=== PATIENT | male | born 1950 | race Caucasian/White ===

== ENCOUNTER 2016-09-28 09:06 | Inpatient (IN) | payer MEDICAID, BC ==
[~2016-09-28] VITALS: Ht 182.9 cm; Wt 90.0 kg
[2016-09-28] VITALS (20 sets, daily range): BP systolic 121–157; BP diastolic 81–102; PULSE 62–75; RESP 16–18; Ht 182.9 cm; Wt 90.0 kg
[~2016-09-28 09:06] MED LIST: ADV25050 INH; ALBU8.5H3 INH; ASPI-664 PO; ATOR10TA65 PO; AZIT250T6 PO; CLOP75TA27 PO; ETOMIDATE 20 MG INJ ONE; FURO40TA4 PO; LISI-523 PO; METO-448 PO; METO25TA7 PO; PRED10TA PO; PRED50TA PO; SUCCINYLCHOLINE CHLORIDE 100 MG/5 ML SYG IV ONE; TIOT18CA INH
[2016-09-28] MEDS ORDERED: METHYLPREDNISOLONE 125 MG INJ IV STA (09:15)
[2016-09-28] MEDS ORDERED: ALBUTEROL 0.5% (NEB) 2.5 MG/0.5 ML AMP INH STA (09:15)
[2016-09-28 09:37] LABS: HEMATOCRIT 39.2 % (42.0-52.0); HEMOGLOBIN 12.4 g/dl (14.0-18.0); MEAN CORPUSCULAR HEMOGLOBIN 31.9 pg (29.0-33.0); MEAN CORPUSCULAR HGB CONC 31.7 g/dl (32.0-37.0); MEAN CORPUSCULAR VOLUME 100.7 fl (82.0-101.0); MEAN PLATELET VOLUME 6.5 fl (7.4-10.4); PLATELET COUNT 285 10^3/UL (140-440); RED CELL DISTRIBUTION WIDTH 16.7 % (11.5-14.5); UNCORRECTED WBC 21.2 10^3/ul (4.8-10.8); WHITE BLOOD COUNT 21.2 10^3/ul (4.8-10.8)
[2016-09-28] MEDS ORDERED: ASPI81TA3 PO (09:37)
[2016-09-28] MEDS ORDERED: FURO40TA4 PO (09:38)
[2016-09-28] MEDS ORDERED: ATOR10TA65 PO (09:38)
[2016-09-28] MEDS ORDERED: CLOP75TA27 PO (09:38)
[2016-09-28] MEDS ORDERED: METO25TA7 PO (09:39)
[2016-09-28] MEDS ORDERED: ADV25050 INHALATION (09:39)
[2016-09-28] MEDS ORDERED: TIOT18CA INHALATION (09:39)
[2016-09-28] MEDS ORDERED: LISI-313 PO (09:39)
[2016-09-28 09:44] LABS: ALBUMIN 3.6 g/dl (3.3-4.9); INR 1.01; PROTIME 13.3 Sec (12.2-14.2)
[2016-09-28 09:45] LABS: PARTIAL THROMBOPLASTIN TIME 22.4 Sec (25.0-35.0); POTASSIUM 4.7 mmol/L (3.5-5.1)
[2016-09-28 09:47] LABS: ALBUMIN/GLOBULIN RATIO 1.24; BILIRUBIN,INDIRECT 0.3 mg/dl (0-1.1); BILIRUBIN,TOTAL 0.3 mg/dl (0.2-1.3); CREATININE 0.82 mg/dl (0.61-1.24); TOTAL PROTEIN 6.5 g/dl (6.1-8.1)
[2016-09-28 09:48] LABS: CALCIUM 8.5 mg/dl (8.4-10.2)
--- NOTE | 2016-09-28 09:49 | RADRPT ---
PROCEDURE: XR Chest. CLINICAL INDICATION: Dyspnea TECHNIQUE: Single frontal chest x-ray. COMPARISON: 08/21/2016 FINDINGS: The lungs volumes are diminished. There are compressive changes with vascular crowding and basilar atelectasis. Mild increased vascular congestion and volume overload is seen throughout the lungs, s table when compared to the prior study. Dense atelectasis is seen within the lung bases. The cardio mediastinal silhouette is enlarged. The base of the heart is elevated due to low lung volumes. The surrounding soft tissues and osseous structures are unremarkable. Left chest AICD device is seen in place, in good location. IMPRESSION: 1. Low lung volumes with compressive changes and basilar atelectasis. 2. Increased vascular congestion and volume overload, stable. 3. Cardiomegaly left chest AICD device, unchanged in the interim. RPTAT: HMJB .Bhaskar Helms MD, Date Time Electronically viewed and signed by .Bhaskar Helms MD, on 09/28/2016 09:49 .B/
[2016-09-28 10:00] LABS: TROPONIN-I 0.07 ng/ml (0.00-0.12)
[2016-09-28 10:01] LABS: SUSPECT 1
[2016-09-28 10:02] LABS: CONDITION 1; LH ANALYZER COMMENTS 1
[2016-09-28 10:03] LABS: AADO2 Arterial 82.3 mmHg (7.0-24.0); Allen Test ACCEPTAB; Arterial Base Excess 11.5 mmol/L (-3.0-3); Arterial COHb 0.7 % (0.0-3.0); Arterial Fraction of Oxyhgb 84.2 % (93.0-99.0); Arterial HCO3 42.3 mmol/L (22.0-26.0); Arterial MetHb 0.3 % (0.0-1.5); Blood Gas IEPAP 20/5; Blood Gas PS 15; MODE MASK - BIPAP
[2016-09-28] MEDS ORDERED: FUROSEMIDE 40 MG INJ IV ONE (11:00)
[2016-09-28 11:17] LABS: AADO2 Arterial 322.9 mmHg (7.0-24.0); Allen Test ACCEPTAB; Arterial Base Excess 11.6 mmol/L (-3.0-3); Arterial COHb 0.5 % (0.0-3.0); Arterial Fraction of Oxyhgb 90.5 % (93.0-99.0); Arterial HCO3 42.5 mmol/L (22.0-26.0); Arterial MetHb 0.3 % (0.0-1.5); Arterial Total Hemglobin 12.9 g/dl (12.0-18.0); Blood Gas IEPAP 20/5; Blood Gas PS 15; MODE MASK - BIPAP
--- NOTE | 2016-09-28 11:59 | ERA ---
ER Documentation Chief Complaint Date/Time DATE: 09/28/16 TIME: 09:19 Chief Complaint sob x 2 days HPI History is limited due to the patient's clinical condition cognitive impairment and is obtained primarily from transferring paramedics and supplemented by review of previous medical records. 66-year-old male with a history of oxygen dependent, end-stage COPD, congestive heart failure with ejection fraction 25-30%, sick sinus syndrome status post pacemaker placement, coronary artery disease status post PCI, hypertension, dyslipidemia, atrial fibrillation and respiratory failure with previous intubations brought to the ED via ambulance from [facility] for evaluation of increasing shortness of breath and hypoxia. Patient found today with low O2 saturation and lethargy. Improved with supplemental oxygen and sent to the ED for further evaluation. Patient is unable to provide any further history. No documented complaints of chest pain, abdominal pain, nausea vomiting or fevers. ROS All systems reviewed and are negative except as per history of present illness. Medications Home Meds Reported Medications Tiotropium Deering* (Spiriva*) 18 Mcg Cap.w.dev, 1 CAP INHALATION DAILY, #30 CAP 09/28/16 Salmeterol Xinaf/Fluticasone* (Advair*) 250-50 Diskus Inhaler, 1 INH INHALATION BID, #1 INHALER 09/28/16 Metoprolol Succinate* (Toprol XL*) 25 Mg Tab.sr.24h, 25 MG PO DAILY, #30 TAB 09/28/16 Lisinopril* (Lisinopril*) 5 Mg Tablet, 5 MG PO DAILY, #30 TAB 09/28/16 Furosemide* (Furosemide*) 40 Mg Tablet, 40 MG PO DAILY, TAB 09/28/16 Clopidogrel Bisulfate (Clopidogrel) 75 Mg Tablet, 75 MG PO DAILY, #30 TAB 09/28/16 Atorvastatin Calcium (Atorvastatin Calcium) 10 Mg Tablet, 10 MG PO QHS, #30 TAB 09/28/16 Aspirin* (Aspirin* Chew) 81 Mg Tab.chew, 81 MG PO DAILY, TAB.CHEW 09/28/16 Discontinued Reported Medications Atorvastatin Calcium (Atorvastatin Calcium) 10 Mg Tab, 10 MG PO HS, TAB 06/05/15 Aspirin* (Aspirin* (EC)) 81 Mg Tablet.dr, 81 MG PO DAILY, TAB 12/23/14 Discontinued Scripts Azithromycin* (Azithromycin*) 250 Mg Tablet, 250 MG PO DAILY, #4 TAB Prov:ADREINNE MUNOZ MD 08/21/16 Prednisone* (Prednisone*) 50 Mg Tablet, 50 MG PO DAILY for 4 Days, TAB Prov:ADRIENNE MUNOZ MD 08/21/16 Albuterol Sulfate* (Proair HFA*) 8.5 Gm Hfa.aer.ad, 2 PUFF INH Q4H Y for WHEEZING AND SOB, #1 INHALER Prov:ADRIENNE MUNOZ MD 08/21/16 Prednisone* (Prednisone*) 10 Mg Tab, 10 MG PO DAILY, #30 TAB 1. Take 40mg by mouth daily for 3 days 2. then 30mg by mouth daily for 3 days 3. then 20mg by mouth daily for 3 days 3. then 10mg by mouth daily for 3 days Prov:CINDY SMART 07/29/16 Lisinopril* (Zestril*) 5 Mg Tablet, 5 MG PO DAILY, #30 TAB Prov:CINDY SMART 07/29/16 Salmeterol Xinaf/Fluticasone* (Advair*) 250-50 Diskus Inhaler, 1 INH INH BID for 30 Days Prov:CINDY SMART 07/29/16 Metoprolol Tartrate* (Lopressor*) 25 Mg Tab, 25 MG PO BID for 30 Days, TAB Prov:CINDY SMART 07/29/16 Tiotropium Deering* (Spiriva*) 18 Mcg Cap.w.dev, 1 INH INH DAILY for 30 Days Prov:CINDY SMART 07/29/16 Furosemide* (Furosemide*) 40 Mg Tablet, 40 MG PO DAILY for 30 Days, TAB Prov:CINDY SMART 07/29/16 Metoprolol Succinate* (Toprol XL*) 25 Mg Tab.sr.24h, 25 MG PO BID for 30 Days Prov:SOHA ALCOCER NP 06/13/16 Clopidogrel Bisulfate (Clopidogrel) 75 Mg Tab, 75 MG PO DAILY for 30 Days Prov:SOHA ALCOCER BLANKET MAKER 12/30/14 Allergies Allergies: Coded Allergies: No Known Allergy (Unverified , 07/24/16) PMhx/Soc Reviewed in chart. As per HPI. History of Surgery: Yes Anesthesia Reaction: No Hx Neurological Disorder: No Hx Respiratory Disorders: Yes (copd) Hx Cardiac Disorders: Yes (htn) Hx Psychiatric Problems: No Hx Miscellaneous Medical Probl: No Hx Alcohol Use: No Hx Substance Use: No Hx Tobacco Use: No Smoking Status: Former smoker FmHx Unknown. Not relevant to presenting complaint. Physical Exam Vitals Vital Signs Date Time Temp Pulse Resp B/P Pulse Ox O2 Delivery O2 Flow Rate FiO2 09/28/16 12:02 64 16 100 100 09/28/16 11:54 77 18 129/77 98 Mechanical Ventilator 09/28/16 11:50 89 18 143/97 96 BIPAP 09/28/16 11:46 74 20 138/90 96 BIPAP 09/28/16 09:47 76 36 124/71 96 BIPAP 09/28/16 09:37 87 95 35 09/28/16 09:22 Nasal Cannula 2 09/28/16 09:19 97.7 102 40 116/76 69 Physical Exam Const: Ill-appearing. Lethargic but arousable. Head: Atraumatic Eyes: Normal Conjunctiva ENT: Normal External Ears, Nose and Mouth. Neck: JVD. No meningismus. Nontender. Resp: Decreased breath sounds bilaterally with expiratory wheezing and prolonged expiratory phase. Crackles one half of both lung glover. Cardio: Irregular rate and rhythm, no murmurs Abd: Soft, non tender, non distended. Normal bowel sounds. Obese Skin: No petechiae or rashes Back: No midline or flank tenderness Ext: There is a posterior splint and dressing on the right lower extremity she has not removed. 2+ edema bilaterally. Neur: Lethargic but arousable. No facial droop. Physical examination is limited and truncated due to the constraints imposed by the patient's physical condition and cognitive impairment. Result Diagram: 09/28/1690909/28/1610 Results 24 hrs Laboratory Tests Test 09/28/16 09:10 09/28/16 09:50 09/28/16 10:43 09/28/16 11:40 Activated Partial Thromboplast Time 22.4Sec Alanine Aminotransferase (ALT/SGPT) 115IU/L Albumin 3.6g/dl Albumin/Globulin Ratio 1.24 Alkaline Phosphatase 76IU/L Anion Gap 11 Aspartate Amino Transf (AST/SGOT) 65IU/L B-Type Natriuretic Peptide 67788CK/ML Basophils # Pending Basophils % Pending Blood Morphology Comment Blood Urea Nitrogen 39mg/dl Calcium Level 8.5mg/dl Carbon Dioxide Level 48mmol/L Chloride Level 89mmol/L Creatinine 0.82mg/dl Direct Bilirubin 0.00mg/dl Eosinophils # Pending Eosinophils % Pending Globulin 2.90g/dl Glucose Level 134mg/dl Hematocrit 39.2% Hemoglobin 12.4g/dl INR International Normalized Ratio 1.01 Indirect Bilirubin 0.3mg/dl Lactic Acid Level 1.2mmol/L 1.2mmol/L Lymphocytes # Pending Lymphocytes % Pending Mean Corpuscular Hemoglobin 31.9pg Mean Corpuscular Hemoglobin Concent 31.7g/dl Mean Corpuscular Volume 100.7fl Mean Platelet Volume 6.5fl Monocytes # Pending Monocytes % Pending Neutrophils # Pending Neutrophils % Pending Nucleated Red Blood Cells # Pending Nucleated Red Blood Cells % Pending Platelet Count 68379^3/UL Potassium Level 4.7mmol/L Prothrombin Time 13.3Sec Prothrombin Time Ratio 1.0 Red Blood Count 3.9010^6/ul Red Cell Distribution Width 16.7% Sodium Level 143mmol/L Total Bilirubin 0.3mg/dl Total Protein 6.5g/dl Troponin I 0.070ng/ml White Blood Count 21.210^3/ul Arterial Blood HCO3 42.3mmol/L 42.5mmol/L Arterial Blood Base Excess 11.5mmol/L 11.6mmol/L Arterial Blood Oxygen Saturation 85.1mmHG 91.2mmHG Thomas Test ACCEPTAB ACCEPTAB Arterial Blood Gas Puncture Site Left Radial Left Radial Arterial Blood Carboxyhemoglobin 0.7% 0.5% Arterial Blood Date Drawn 09/28/2016 9:53:07 AM 09/28/2016 11:09:51 AM Arterial Blood Methemoglobin 0.3% 0.3% Arterial Blood pCO2 (Temp correct) 94.4mmhg 96.2mmhg Arterial Blood pH (Temp corrected) 7.269 7.263 Arterial Blood pO2 (Temp corrected) 57.5mmHG 72.8mmHG Blood Gas A-a O2 Differential 82.3mmHg 322.9mmHg Blood Gas Actual Respiration Rate 18 18 Blood Gas Critical Value Read Back DR. SUZY ALMONTE Blood Gas IPAP/EPAP Ratio 20/5 20/5 Blood Gas Modality MASK - BIPAP MASK - BIPAP Blood Gas Notified Time 09/28/2016 10:03:02 AM 09/28/2016 11:17:44 AM Blood Gas Notified Whom RosemarySCHEDULING ADMINISTRATOR MStephanieSCHEDULING ADMINISTRATOR Blood Gas Pressure Support 15 15 Blood Gas Respiration Rate 18.0 18.0 Blood Gas Specimen Source Blood arterial Blood arterial Blood Gas Temperature 37.0C 37.0C FiO2 35.0% 70.0% Oxyhemoglobin Percent 84.2% 90.5% Total Hemoglobin 13.0g/dl 12.9g/dl Current Medications Medications (Trade) Dose Ordered Sig/Sim Route PRN Reason Start Time Stop Time Status Last Admin Dose Admin Albuterol (Proventil 0.5% (Neb)) 15 mg ONCE STAT INH 09/28/16 09:15 09/28/16 09:19 DC 09/28/16 09:36 Methylprednisolone Sodium Succinate (Solu-Medrol) 125 mg ONCE STAT IV 09/28/16 09:15 09/28/16 09:19 DC 09/28/16 09:44 Furosemide (Lasix) 40 mg ONCE ONCE IV 09/28/16 11:00 09/28/16 11:01 DC 09/28/16 11:00 Lidocaine (Xylocaine 1% (Mdv) 20 ml) 20 ml ONCE ONCE SC 09/28/16 12:00 09/28/16 12:01 DC RHYTHM STRIP INTERPRETATION: Time: 09: 00. Atrial fibrillation. Ventricular rate 100. Occasional PVCs. Indication: Shortness of breath. EKG: TIME: 09: 09. Atrial fibrillation. Ventricular rate 102. Occasional PVCs. No acute ST segment elevation or depression. EP Interpretation: Abnormal EKG. IMAGING: PROCEDURE: XR Chest. CLINICAL INDICATION: Dyspnea TECHNIQUE: Single frontal chest x-ray. COMPARISON: 08/21/2016 FINDINGS: The lungs volumes are diminished. There are compressive changes with vascular crowding and basilar atelectasis. Mild increased vascular congestion and volume overload is seen throughout the lungs, stable when compared to the prior study. Dense atelectasis is seen within the lung bases. The cardiomediastinal silhouette is enlarged. The base of the heart is elevated due to low lung volumes. The surrounding soft tissues and osseous structures are unremarkable. Left chest AICD device is seen in place, in good location. IMPRESSION: 1. Low lung volumes with compressive changes and basilar atelectasis. 2. Increased vascular congestion and volume overload, stable. 3. Cardiomegaly left chest AICD device, unchanged in the interim. RPTAT: HMJB .Bhaskar Helms MD, Date Time Electronically viewed and signed by .Bhaskar Helms MD, MD on 09/28/2016 09:49 .B/ PROCEDURE: XR Chest AP portable CLINICAL INDICATION: Post intubation TECHNIQUE: An AP portable radiograph of the chest was submitted. COMPARISON: 09/28/2016 FINDINGS: Support Hardware: The patient is been satisfactorily intubated with the tube tip at the level of T4. Cardiovascular: The ICD generator and lead are stable in positioning and the cardiovascular silhouette is unremarkable except for mild pulmonary vascular congestion Lung Glover: Atelectatic change and possibly streaky infiltrates are seen at the lung bases bilaterally. Pleural Spaces: Suggestion of a small left pleural fluid accumulation, unchanged. No pneumothorax is evident. Osseous Structures: The osseous structures appear intact. Soft Tissues: The soft tissues appear unremarkable. IMPRESSION: 1. Satisfactory intubation. 2. AICD generator later stable positioning and the cardiovascular structures are stable and unremarkable except for mild pulmonary vascular congestion. 3. Worsening atelectasis or streaky infiltrate involving the lung bases with a persistent small left pleural fluid accumulation. Physician Basia Date Time Electronically viewed and signed by Physician Basia on 09/28/2016 12:15 RH/ Procedures/MDM DOCUMENTS REVIEWED: ED nurse, prior ED, prior records PROCEDURES: Time: 11: 50. Endotracheal Intubation by me: Pre assessment performed. See preceding note for details. Pre-oxygenation performed with 100% oxygen RSI: Performed w/o complication or hypoxic events. Rapid sequence intubation with etomidate 20 mg IV and succinylcholine 200 mg IV. Blade: Gage scope ET Tube: 7.5 cm Depth: 21 cm at the lip Intubation confirmed by colorimetric CO2, equal breath sounds, quiet over the stomach. Chest X-ray 1V Interpreted by me: [XOXOXO] cm above the mich ET tube. Normal soft tissue, No pneumothorax. MEDICAL DECISION MAKIN-year-old male with a history of oxygen dependent, end-stage COPD, congestive heart failure with ejection fraction 25-30%, sick sinus syndrome status post pacemaker placement, coronary artery disease status post PCI, hypertension, dyslipidemia, atrial fibrillation and r respiratory failure status post intubations brought to the ED by ambulance with increasing shortness of breath. Patient with hypoxic/hypercapnic respiratory failure secondary to acute COPD exacerbation and acute congestive heart failure, failed BiPAP and required intubation. No acute ischemic EKG changes, elevated troponin or other signs of acute coronary syndrome. No radiographic evidence of pneumonia. Multiple criteria for systemic inflammatory response syndrome but normal lactate. Patient be admitted to the intensive care unit for further evaluation and management. CALLS/CONSULTS: Time 11: 50, Dr. Chirinos, Recommends intensive care unit admission. PATIENT CARE TRANSITIONED: Time: 11: 50, Dr. Chirinos CRITICAL CARE TIME: Due to the high probability of sudden clinically significant respiratory, hemodynamic and cardiovascular deterioration, this patient with respiratory failure secondary to acute CHF exacerbation and acute COPD exacerbation required multiple, frequent reevaluations of vital signs and response to therapy. Additional critical care time was spent in review of medical records and consultation with the admitting physician Dr. Chirinos. TOTAL CRITICAL CARE TIME: 40 minutes not including other separately reportable procedures. Departure Diagnosis: Primary Impression: Acute respiratory failure with hypoxia and hypercapnia Additional Impressions: COPD with acute exacerbation Acute systolic congestive heart failure SONU ALMONTE MD Sep 28, 2016 11:58
[2016-09-28] MEDS ORDERED: LIDOCAINE 1% (MDV) 20 ML INJ SC ONE (12:00)
--- NOTE | 2016-09-28 12:15 | RADRPT ---
PROCEDURE: XR Chest AP portable CLINICAL INDICATION: Post intubation TECHNIQUE: An AP portable radiograph of the chest was submitted. COMPARISON: 09/28/2016 FINDINGS: Support Hardware: The patient is been satisfactorily intubated with the tube tip at the level of T4. Cardiovascular: The ICD generator and lead are stable in positioning and the cardiovascular silhouet te is unremarkable except for mild pulmonary vascular congestion Lung Glover: Atelectatic change and possibly streaky infiltrates are seen at the lung bases bilatera lly. Pleural Spaces: Suggestion of a small left pleural fluid accumulation, unchanged. No pneumothorax i s evident. Osseous Structures: The osseous structures appear intact. Soft Tissues: The soft tissues appear unremarkable. IMPRESSION: 1. Satisfactory intubation. 2. AICD generator later stable positioning and the cardiovascular structures are stable and unremar kable except for mild pulmonary vascular congestion. 3. Worsening atelectasis or streaky infiltrate involving the lung bases with a persistent small lef t pleural fluid accumulation. Physician Basia Date Time Electronically viewed and signed by Physician Basia on 09/28/2016 12:15 /
[2016-09-28 12:22] LABS: ADD UMIC YES; URINE BILIRUBIN (Dip) NEGATIVE (NEGATIVE); URINE BLOOD (Dip) 3+ (NEGATIVE); URINE COLOR LT. YELLOW (YELLOW); URINE GLUCOSE (Dip) NEGATIVE (NEGATIVE); URINE KETONES (Dip) NEGATIVE (NEGATIVE); URINE LEUKOCYTE ESTERASE (Dip) TRACE (NEGATIVE); URINE NITRITE (Dip) POSITIVE (NEGATIVE); URINE TOTAL PROTEIN (Dip) 2+ (NEGATIVE); URINE UROBILINOGEN (Dip) 0.2 E.U./dL (0.1-1.0)
[2016-09-28 13:01] LABS: AADO2 Arterial 555.3 mmHg (7.0-24.0); Allen Test ACCEPTAB; Arterial Base Excess 12.3 mmol/L (-3.0-3); Arterial COHb 0.5 % (0.0-3.0); Arterial Fraction of Oxyhgb 96.8 % (93.0-99.0); Arterial HCO3 38.5 mmol/L (22.0-26.0); Arterial MetHb 0.4 % (0.0-1.5); Arterial Total Hemglobin 13.4 g/dl (12.0-18.0); MODE VENT - AC
--- NOTE | 2016-09-28 13:17 | RADRPT ---
PROCEDURE: US guidance for PICC line CLINICAL INDICATION: PICC line placement TECHNIQUE: Multiple real-time images were acquired of the patient's arm utilizing a high resolutio n transducer. This was performed by the PICC line nurse for venous access. COMPARISON: None FINDINGS: Ultrasound guidance for PICC line placement. IMPRESSION: Ultrasound guidance for PICC line placement. RPTAT: AA .Dimas Tafoya MD, MD Date Time Electronically viewed and signed by .Dimas Tafoya MD, on 09/28/2016 13:17 .S/
--- NOTE | 2016-09-28 13:24 | RADRPT ---
PROCEDURE: XR Chest AP portable CLINICAL INDICATION: PICC line placement TECHNIQUE: An AP portable radiograph of the chest was submitted. COMPARISON: The study earlier on the same date. FINDINGS: Support Hardware: The endotracheal tube has been withdrawn to the level of T2. A right upper extrem ity PICC catheter has been placed with the tip projecting to the superior vena cava. Cardiovascular: The AICD generator and leads are stable in positioning. The heart is not enlarged an d the piriform plantar vasculature appears unremarkable. Lung Walker: There is again interstitial prominence either lung walker with foci of discoid atelecta sis seen at the lung bases. Pleural Spaces: A small left pleural fluid accumulation is again noted. Osseous Structures: The osseous structures appear intact. Soft Tissues: The soft tissues appear unremarkable. IMPRESSION: 1. The endotracheal tube tip is been withdrawn to the level of T2 and a week right upper extremity PICC catheter has been placed with the tip projecting to the superior vena cava. 2. The ICD device remains in place and the cardiovascular silhouette is stable unremarkable. 3. Pulmonary interstitial infiltrates are again evident with discoid atelectatic change seen at the lung bases along with a small left pleural fluid accumulation, unchanged. Physician Basia Date Time Electronically viewed and signed by Physician Basia on 09/28/2016 13:24 /
[2016-09-28 13:28] LABS: BACTERIA,URINE MANY; URINE RBCS >50 /HPF (0)
[2016-09-28 14:14] LABS: BASOPHIL # 0.2 10^3/ul (0.0-0.1); EOSINOPHILS # 0.2 10^3/ul (0.0-0.5); LYMPHOCYTES # 1.1 10^3/ul (0.8-2.9); MONOCYTE # 1.1 10^3/ul (0.3-0.9); NEUTROPHIL # 15.1 10^3/ul (1.6-7.5); NUCLEATED RED BLOOD CELLS% 3.6 /100WBC (0.0-0.0)
--- NOTE | 2016-09-28 14:23 | CONS ---
Date/Time of Note Date/Time of Note DATE: 09/28/16 TIME: 14:15 Assessment/Plan Assessment/Plan Additional Assessment/Plan Assessment/plan; 1. Patient admitted with acute respiratory failure with severe hypoxemia, bilateral pneumonia, and COPD exacerbation. 2. History of congestive heart failure with bilateral pitting lower extremity edema and changes on chest x-ray which are consistent with pulmonary edema. 3. History of chronic atrial fibrillation. 4. Underlying severe COPD with frequent exacerbation and history of intubation in the past. Next 5. History of right leg fracture currently on a splint. 6. History of hypertension. Recommendations; 1. Patient already intubated by the ER physician currently 100% FiO2 ABG was reviewed which is still showing hypoxemia. 2. Initiate Solu-Medrol 40 mg IV every 6 hours and continuation of DuoNeb every 6 hours. 3. Continue patient's IV antihypertensive medications as dictated by patient's of blood pressure readings. 4. Continue IV Lasix 40 mg daily. Next 5. Add Lovenox for DVT prophylaxis and Protonix for GI prophylaxis. 6. Cefepime 1 g IV every 12 hours and Levaquin 500 mg IV daily. 7. Sputum has been sent for Gram stain and culture. With further antibiotic adjustment to be done once culture results are obtained. 8. FiO2 to be titrated downward to keep O2 sat are 94%. 9. Acute bleeding to be started with Pulmocare at 35 mL/h to be increased as tolerated. 10. Daily chest x-rays while the patient is intubated routine labs daily. Processes guarded. Consultation Date/Type/Reason Admit Date/Time Date of consult is September 28, 2016. Reason for consultation; patient admitted with acute respiratory failure bilateral, bilateral pneumonia and congestive heart failure exacerbation Date of Consultation: Sep 28, 2016 Past Medical History Family history; currently not available, patient resides in a care home. Social history; patient apparently has a history of smoking. Occupational history; currently not available. Review of systems; currently not obtainable patient intubated sedated. Past Surgical History Past Surgical Hx: no surgical history Social History Smoking Status: Former smoker Exam/Review of Systems Vital Signs Vitals Vital Signs Date Time Temp Pulse Resp B/P Pulse Ox O2 Delivery O2 Flow Rate FiO2 09/28/16 12:02 64 16 100 100 09/28/16 11:54 129/77 Mechanical Ventilator 09/28/16 09:22 2 09/28/16 09:19 97.7 Exam General exam; middle aged, or intubated, sedated, currently in no distress. HEENT examination supple neck positive, positive JVD, no lymphadenopathy, small pupils bilaterally, no neck masses, no lymphadenopathy, no thyromegaly. Chest examination:diminished breath sounds throughout with crackles in lower lobes bilaterally, S1-S2 audible irregular rhythm. Abdominal examination;:soft, nondistended no organomegaly, bowel sounds audible. Umbilicus is inverted. There is no scrotal or penile edema. Next Extremity examination: 2+ pitting edema bilaterally lower extremities, there is a splint applied to the right foot. REGULATORY CONSULTANT examination: patient currently sedated and unresponsive. Results Result Diagram: 09/28/16 0910 09/28/16 0910 Results 24 hrs Laboratory Tests Test 09/28/16 09:10 09/28/16 09:50 09/28/16 10:43 09/28/16 11:40 Activated Partial Thromboplast Time 22.4 L Alanine Aminotransferase (ALT/SGPT) 115 H Albumin 3.6 Albumin/Globulin Ratio 1.24 Alkaline Phosphatase 76 Anion Gap 11 Aspartate Amino Transf (AST/SGOT) 65 H B-Type Natriuretic Peptide 24760 H Basophils # 0.2 H Basophils % 1.0 Blood Morphology Comment Blood Urea Nitrogen 39 H Calcium Level 8.5 Carbon Dioxide Level 48 *H Chloride Level 89 L Creatinine 0.82 Direct Bilirubin 0.00 Eosinophils # 0.2 Eosinophils % 1.0 Globulin 2.90 Glucose Level 134 Hematocrit 39.2 L Hemoglobin 12.4 L INR International Normalized Ratio 1.01 Indirect Bilirubin 0.3 Lactic Acid Level 1.2 1.2 Lymphocytes # 1.1 Lymphocytes % 5.0 L Mean Corpuscular Hemoglobin 31.9 Mean Corpuscular Hemoglobin Concent 31.7 L Mean Corpuscular Volume 100.7 Mean Platelet Volume 6.5 L Monocytes # 1.1 H Monocytes % 5.0 Neutrophils # 15.1 H Neutrophils % 71.0 Nucleated Red Blood Cells # Nucleated Red Blood Cells % 3.6 H Platelet Count 285 # Potassium Level 4.7 Prothrombin Time 13.3 Prothrombin Time Ratio 1.0 Red Blood Count 3.90 L Red Cell Distribution Width 16.7 #H Sodium Level 143 Total Bilirubin 0.3 Total Protein 6.5 Troponin I 0.070 White Blood Count 21.2 #H Arterial Blood HCO3 42.3 *H 42.5 *H Arterial Blood Base Excess 11.5 H 11.6 H Arterial Blood Oxygen Saturation 85.1 L 91.2 L Thomas Test ACCEPTAB ACCEPTAB Arterial Blood Gas Puncture Site Left Radial Left Radial Arterial Blood Carboxyhemoglobin 0.7 0.5 Arterial Blood Date Drawn 09/28/2016 9:53:07 AM 09/28/2016 11:09:51 AM Arterial Blood Methemoglobin 0.3 0.3 Arterial Blood pCO2 (Temp correct) 94.4 *H 96.2 *H Arterial Blood pH (Temp corrected) 7.269 *L 7.263 *L Arterial Blood pO2 (Temp corrected) 57.5 L 72.8 L Blood Gas A-a O2 Differential 82.3 H 322.9 H Blood Gas Actual Respiration Rate 18 18 Blood Gas Critical Value Read Back DR. SUZY ALMONTE Blood Gas IPAP/EPAP Ratio 20/5 20/5 Blood Gas Modality MASK - BIPAP MASK - BIPAP Blood Gas Notified Time 09/28/2016 10:03:02 AM 09/28/2016 11:17:44 AM Blood Gas Notified Whom M.D.FORK LIFT TECHNICIAN M.D.FORK LIFT TECHNICIAN Blood Gas Pressure Support 15 15 Blood Gas Respiration Rate 18.0 18.0 Blood Gas Specimen Source Blood arterial Blood arterial Blood Gas Temperature 37.0 37.0 FiO2 35.0 70.0 Oxyhemoglobin Percent 84.2 L 90.5 L Total Hemoglobin 13.0 12.9 Test 09/28/16 12:00 09/28/16 12:56 Urine Bacteria MANY Urine Bilirubin NEGATIVE Urine Clarity CLOUDY H Urine Color LT. YELLOW Urine Epithelial Cells FEW Urine Glucose NEGATIVE Urine Hemoglobin 3+ H Urine Ketones NEGATIVE Urine Leukocyte Esterase TRACE H Urine Microscopic RBC >50 Urine Microscopic WBC 0-2 Urine Nitrite POSITIVE H Urine Specific [place] 1.025 Urine Total Protein 2+ H Urine Urobilinogen 0.2 E.U./dL Urine pH 5.5 Arterial Blood HCO3 38.5 H Arterial Blood Base Excess 12.3 H Arterial Blood Oxygen Saturation 97.7 Thomas Test ACCEPTAB Arterial Blood Gas Puncture Site Left Radial Arterial Blood Carboxyhemoglobin 0.5 Arterial Blood Date Drawn 09/28/2016 12:52:46 PM Arterial Blood Methemoglobin 0.4 Arterial Blood pCO2 (Temp correct) 55.7 H Arterial Blood pH (Temp corrected) 7.457 H Arterial Blood pO2 (Temp corrected) 102.0 H Blood Gas A-a O2 Differential 555.3 H Blood Gas Actual Respiration Rate 16 Blood Gas Low PEEP Setting 5.0 Blood Gas Modality VENT - AC Blood Gas Notified Time 09/28/2016 1:01:35 PM Blood Gas Notified Whom M.DJessicaFORK LIFT TECHNICIAN Blood Gas Respiration Rate 16.0 Blood Gas Specimen Source Blood arterial Blood Gas Temperature 37.0 Blood Gas Tidal Volume 550.0 FiO2 100.0 Oxyhemoglobin Percent 96.8 Total Hemoglobin 13.4 Medications Medications Current Medications IV Flush (NS 10 ml) 10 ml PRN PRN IV IV PROTOCOL; Start 09/28/16 at 14:00 ROSE PÉREZ Sep 28, 2016 14:23
[2016-09-28] MEDS ORDERED: LEVOFLOXACIN 500MG/D5W (PMX) 100 ML IV SCH (14:30)
[2016-09-28] MEDS ORDERED: PANTOPRAZOLE 40 MG INJ IV SCH (14:30)
[2016-09-28] MEDS ORDERED: ENOXAPARIN 40 MG/0.4 ML SYG SC SCH (14:30)
[2016-09-28] MEDS ORDERED: PROPOFOL 100 ML ONE (14:55)
[2016-09-28] MEDS ORDERED: ONDANSETRON 4 MG INJ IV PRN (15:00)
[2016-09-28] MEDS ORDERED: IPRATROPIUM (NEB) 0.5 MG/2.5 ML AMP NEB PRN (15:00)
[2016-09-28] MEDS ORDERED: DOCUSATE SODIUM 100 MG CAP PO PRN (15:00)
[2016-09-28] MEDS ORDERED: CEFEPIME 1GM/50 ML (PMX) 50 ML IV SCH (15:00)
[2016-09-28] MEDS ORDERED: ALBUTEROL 0.5% (NEB) 2.5 MG/0.5 ML AMP NEB PRN (15:00)
[2016-09-28] MEDS ORDERED: AZITHROMYCIN 500MG/NS (PMX) 250 ML IVPB SCH (15:00)
[2016-09-28] MEDS ORDERED: NITROGLYCERIN (SL) 0.4 MG TAB SL PRN (15:00)
[2016-09-28] MEDS ORDERED: PROPOFOL 100 ML IV ONE (15:30)
[2016-09-28] MEDS ORDERED: hydrALAzine 20 MG INJ IV PRN (16:00)
[2016-09-28] MEDS ORDERED: TIOTROPIUM 18 MCG CAPSULE INHA DEV INH SCH (16:00)
[2016-09-28] MEDS: PROPOFOL 100 ML IV PRN ×2 (16:04→20:27)
[2016-09-28] MEDS ORDERED: ALBUTEROL 0.5% (NEB) 2.5 MG/0.5 ML AMP NEB SCH (17:00)
[2016-09-28] MEDS ORDERED: IPRATROPIUM (NEB) 0.5 MG/2.5 ML AMP NEB SCH (17:00)
[2016-09-28] MEDS: METHYLPREDNISOLONE 125 MG INJ IV SCH (17:08)
[2016-09-28 17:13] LABS: TROPONIN-I 0.067 ng/ml (0.00-0.12)
[2016-09-28] MEDS: CEFEPIME 1GM/50 ML (PMX) 50 ML IV SCH (17:13)
[2016-09-28] MEDS ORDERED: SOD CHLORIDE 0.9% 100 ML ONE (17:21)
[2016-09-28 17:28] LABS: CK-MB 2.2 ng/ml (0.0-2.4)
[2016-09-28] MEDS ORDERED: METHYLPREDNISOLONE 125 MG INJ IV SCH (18:00)
--- NOTE | 2016-09-28 18:32 | HP ---
DATE OF ADMISSION: 09/28/2016 AIRCRAFT ENGINE MECHANIC OVERHAUL: Dr. Krishan Hylton CHIEF COMPLAINT: Shortness of breath. HISTORY OF PRESENT ILLNESS: Notation: A great amount of information was obtained from the ER physi eriberto and EMS. The patient is not able to provide me with any information. This is a 66-year-old gentleman who is known to our service from prior hospitalization with a past m edical history of ischemic cardiomyopathy, ejection fraction 25%, coronary artery disease, hypertens ion, dyslipidemia, COPD, CHF who resides at [facility], sick sinus syndrome, status po st pacemaker placement, ischemic cardiomyopathy, atrial fibrillation who was found to have increased shortness of breath at [facility] and was transferred to [facility] via EMS, where he was found to have oxygen saturation of 69% in room air. His ABG showed pH of 7.269, pCO2 94.4, pCO2 57.5, bicarbonate 42.3, oxygen saturation 85.1%. He was placed on BiPAP, which he was not able to tolerate and continued to become more hypoxic. Therefore, he was intubated in the course of the emergency room. Pulmonology was consulted. The patient was also treated with Solu-Medrol, cefepime, breathing treatment, and at this time he has been placed on propofol seconda ry to intubation. PAST MEDICAL AND SURGICAL HISTORY: As above per HPI. MEDICATIONS: 1. Aspirin. 2. Lipitor. 3. Plavix. 4. Lasix. 5. Lisinopril. 6. Toprol XL. 7. Solu-Medrol. 8. Spiriva. ALLERGIES: NO KNOWN DRUG ALLERGIES. FAMILY HISTORY: Noncontributory. SOCIAL HISTORY: He resides at [facility]. Positive for history of smoking. REVIEW OF SYSTEMS: As above per HPI, otherwise not obtainable. PHYSICAL EXAMINATION: VITAL SIGNS: Temperature 97.7, pulse 80, respirations 16, blood pressure 170/105, oxygen saturation 100% on FIO2 of 80% via vent. GENERAL APPEARANCE: The patient is intubated, sedated. EYES, EARS, NOSE, THROAT: Conjunctivae and lids are normal. Pupils are normal. Extraocular motor is not assessable secondary to the patient is sedated. NECK: Supple. Trachea is midline. No lymphadenopathy. RESPIRATORY: This patient is on vent. Decreased breath sounds, bilateral lower lung walker. Positi ve wheezing. CARDIOVASCULAR: Normal S1, S2. Regular rhythm and rate. No murmur, no bruits. ABDOMEN: Soft, nontender, not distended. Bowel sounds are present. EXTREMITIES: Upper extremities within normal limits. Right lower extremity is in a cast. NEUROLOGIC: Not obtainable since patient is sedated. LABORATORY WORK: ABG: pH 7.45, pCO2 ____, pO2 102, bicarbonate 38.5, oxygen saturation 97.7 on suad t AC, FIO2 100% with a tidal volume 500, PEEP of 5. Sodium 143, potassium 4.7, chloride 89, bicarbo marie 48, BUN 39, creatinine 0.82, glucose 135. AST 65, ALT 115. Troponin 0.07. BNP ____. WBC 21. 2, platelets 12.4, hemoglobin 12.4, hematocrit 39.2, platelets 285. ASSESSMENT AND PLAN: 1. Acute hypoxic respiratory failure. The patient is intubated. Pulmonology has been consulted. 2. Pneumonia, on cefepime and Levaquin. 3. Essential hypertension. Will continue patient's home medication, metoprolol, Zestril. 4. History of chronic obstructive pulmonary disease. At this time, the patient is intubated. Cont inue breathing treatment, Advair, Solu-Medrol. 5. Ischemic cardiomyopathy with ejection fraction 25%. Continue beta liliana, Zestril, Lasix. 6. Dyslipidemia. Continue statin. 7. Will continue to monitor patient closely. Further recommendation, management and treatment base d on clinical course. For deep venous thrombosis prophylaxis, place the patient on Lovenox. Dictated By: GLENDY KING/NTS Conf#: [id number] DID#: [id number]
[2016-09-28] MEDS: ATORVASTATIN 10 MG TAB PO SCH (20:32)
[2016-09-28] MEDS: SALMETEROL/FLUTICASONE 250/50 INHA INH SCH (20:48)
[2016-09-28] MEDS ORDERED: CEFEPIME 1GM/50 ML (PMX) 50 ML IVPB SCH (21:00)
[2016-09-28] MEDS: FAMOTIDINE 20 MG TAB PO SCH (21:00)
[2016-09-28] MEDS: ALBUTEROL HFA 8 GM INHALER INH SCH (21:37)
[2016-09-28] MEDS: IPRATROPIUM (HFA) 12.9 GM INHALER INH SCH (21:38)
[2016-09-28 22:06] LABS: CREATINE KINASE < 20 IU/L (23-200)
[2016-09-28 22:18] LABS: CK-MB 1.45 ng/ml (0.0-2.4); TROPONIN-I 0.082 ng/ml (0.00-0.12)
[2016-09-29] VITALS (46 sets, daily range): BP systolic 110–166; BP diastolic 61–100; PULSE 61–75; RESP 14–23
[2016-09-29] MEDS: METHYLPREDNISOLONE 125 MG INJ IV SCH ×4 (00:34→18:00)
[2016-09-29] MEDS: IPRATROPIUM (HFA) 12.9 GM INHALER INH SCH ×4 (01:13→21:06)
[2016-09-29] MEDS: ALBUTEROL HFA 8 GM INHALER INH SCH ×6 (01:13→21:06)
[2016-09-29] MEDS: CEFEPIME 1GM/50 ML (PMX) 50 ML IV SCH ×2 (01:31→08:34)
[2016-09-29] MEDS: morphine 2 MG INJ IV PRN (02:30)
[2016-09-29] MEDS: PROPOFOL 100 ML IV PRN ×3 (03:16→21:19)
[2016-09-29 04:03] LABS: TROPONIN-I 0.074 ng/ml (0.00-0.12)
[2016-09-29 04:10] LABS: CK-MB 0.78 ng/ml (0.0-2.4); CREATINE KINASE < 20 IU/L (23-200)
[2016-09-29 05:48] LABS: HEMATOCRIT 34.7 % (42.0-52.0); HEMOGLOBIN 11.4 g/dl (14.0-18.0); LYMPHOCYTES # 0.4 10^3/ul (0.8-2.9); LYMPHOCYTES % 3.2 % (15.0-51.0); MEAN CORPUSCULAR HEMOGLOBIN 32.5 pg (29.0-33.0); MEAN CORPUSCULAR VOLUME 98.5 fl (82.0-101.0); MEAN PLATELET VOLUME 7.4 fl (7.4-10.4); MONOCYTE # 0.3 10^3/ul (0.3-0.9); MONOCYTES % 2.4 % (0.0-11.0); NEUTROPHIL # 12.4 10^3/ul (1.6-7.5); NEUTROPHILS % 94.4 % (39.0-77.0); PLATELET COUNT 219 10^3/UL (140-440); RED BLOOD COUNT 3.52 10^6/ul (4.70-6.10); RED CELL DISTRIBUTION WIDTH 15.8 % (11.5-14.5); UNCORRECTED WBC 13.2 10^3/ul (4.8-10.8); WHITE BLOOD COUNT 13.2 10^3/ul (4.8-10.8)
[2016-09-29 05:51] LABS: CONDITION 1; LH ANALYZER COMMENTS 1
[2016-09-29 06:14] LABS: POTASSIUM 4.3 mmol/L (3.5-5.1)
[2016-09-29 06:16] LABS: CREATININE 0.65 mg/dl (0.61-1.24)
[2016-09-29 06:17] LABS: CALCIUM 8.4 mg/dl (8.4-10.2); CHOL/HDL RATIO 3.2 RATIO; MAGNESIUM 1.8 mg/dl (1.7-2.5)
[2016-09-29 06:23] LABS: THYROID STIMULATING HORMONE 0.204 MIU/L (0.465-4.680)
--- NOTE | 2016-09-29 06:24 | RADRPT ---
PROCEDURE: Chest. CLINICAL INDICATION: Shortness of breath. TECHNIQUE: Single frontal view of the chest was obtained. COMPARISON: 09/28/2016. FINDINGS: There is a left-sided AICD. There is an endotracheal tube 4.5 cm above the mich. There is a righ t-sided PICC line extending to the SVC. The cardiac silhouette is enlarged. The aortic arch is unc oiled and calcified. There is mild bony venous congestion. There is mild bibasilar atelectasis/con solidations and small pleural effusions. There is no pneumothorax. IMPRESSION: Mild cardiomegaly and pulmonary venous congestion, unchanged. Mild bibasilar atelectasis/consolidations and small pleural effusions, unchanged. Aortic atherosclerosis. Tube and line in place. .Maximo Zamarripa MD, MD Date Time Electronically viewed and signed by .Maximo Zamarripa MD, MD on 09/29/2016 06:24 .T/
[2016-09-29 07:43] LABS: AADO2 Arterial 424.6 mmHg (7.0-24.0); Allen Test ACCEPTAB; Arterial Base Excess 11.7 mmol/L (-3.0-3); Arterial COHb 0.3 % (0.0-3.0); Arterial HCO3 35.9 mmol/L (22.0-26.0); Arterial MetHb 0.2 % (0.0-1.5); Arterial Total Hemglobin 12.5 g/dl (12.0-18.0); MODE VENT - AC
[2016-09-29] MEDS: FUROSEMIDE 40 MG TAB PO SCH (08:31)
[2016-09-29] MEDS: CLOPIDOGREL 75 MG TAB PO SCH (08:31)
[2016-09-29] MEDS: FAMOTIDINE 20 MG TAB PO SCH ×2 (08:32→21:00)
[2016-09-29] MEDS: ASPIRIN 81 MG TAB PO SCH (08:32)
[2016-09-29] MEDS: LISINOPRIL 5 MG TAB PO SCH (08:32)
[2016-09-29] MEDS: METOPROLOL (XL) 25 MG TAB PO SCH (08:32)
[2016-09-29] MEDS: ENOXAPARIN 40 MG/0.4 ML SYG SC SCH (09:00)
--- NOTE | 2016-09-29 09:24 | CONS ---
Date/Time of Note Date/Time of Note DATE: 09/29/16 TIME: 09:19 Assessment/Plan Assessment/Plan Additional Assessment/Plan Assessment/plan; 1. Patient admitted with recurrent respiratory failure with severe hypercapnia , bilateral pneumonia, COPD exacerbation. 2. Recent right leg fracture status is unknown. Current medical records the cast was not placed at [facility]. 3. Chest x-ray was reviewed from today which is showing slight improvement in bibasilar pneumonia with improving leukocytosis. Next 4. ABG was reviewed as well which is showing mild respiratory alkalosis. Recommendations: 1. Ventilator settings have been adjusted assist-control rate has been dropped down to 14 FiO2 has been weaned down to 60%. Next 2. Continue current antibiotic support, start tube feeding. Continue Atrovent and albuterol as well as Solu-Medrol at current dosing. Next 3. Start tube feeding Pulmocare at 30-35 mL/h. 4. Further weaning from mechanical ventilation will depend upon improving pneumonia. Prognosis is guarded. Consultation Date/Type/Reason Admit Date/Time Sep 28, 2016 at 14:41 Initial Consult Date 09/28/16 24 HR Interval Summary Free Text/Dictation Patient condition remains critical still requiring full ventilator support at high FiO2 however FiO2 has been dropped down to 60% now from 100% yesterday in the ER. Patient has remained hemodynamically stable. Not requiring any pressor support. General examination; middle aged, or intubated, sedated. Currently in no distress. Exam/Review of Systems Vital Signs Vitals Vital Signs Date Time Temp Pulse Resp B/P Pulse Ox O2 Delivery O2 Flow Rate FiO2 09/29/16 08:58 68 18 96 80 09/29/16 07:00 139/85 Mechanical Ventilator 09/29/16 04:00 99.0 09/28/16 09:22 2 Intake and Output 09/28/16 09/28/16 09/29/16 15:00 23:00 07:00 Intake Total 67.5 ml 162.2 ml Output Total 815 ml 590 ml Balance -747.5 ml -427.8 ml Exam HEENT examination; supple neck, no JVD, no lymphadenopathy, or size pupils. Orally intubated. No thyromegaly. Chest examination; diminished breath sounds throughout, S1-S2 audible, with a pacemaker in the left chest wall. Abdomen examination; soft, nondistended, bowel sounds audible. No organomegaly. Extremity examination: 1+ pitting edema bilaterally, right leg is in a cast. Next PANEL CUTTER examination; patient currently sedated. Results Result Diagram: 09/29/16 0450 09/29/16 0450 Results 24 hrs Laboratory Tests Test 09/28/16 09:50 09/28/16 10:43 09/28/16 11:40 09/28/16 12:00 Arterial Blood HCO3 42.3 *H 42.5 *H Arterial Blood Base Excess 11.5 H 11.6 H Arterial Blood Oxygen Saturation 85.1 L 91.2 L Thomas Test ACCEPTAB ACCEPTAB Arterial Blood Gas Puncture Site Left Radial Left Radial Arterial Blood Carboxyhemoglobin 0.7 0.5 Arterial Blood Date Drawn 09/28/2016 9:53:07 AM 09/28/2016 11:09:51 AM Arterial Blood Methemoglobin 0.3 0.3 Arterial Blood pCO2 (Temp correct) 94.4 *H 96.2 *H Arterial Blood pH (Temp corrected) 7.269 *L 7.263 *L Arterial Blood pO2 (Temp corrected) 57.5 L 72.8 L Blood Gas A-a O2 Differential 82.3 H 322.9 H Blood Gas Actual Respiration Rate 18 18 Blood Gas Critical Value Read Back DR. SUZY ALMONTE Blood Gas IPAP/EPAP Ratio 20/5 20/5 Blood Gas Modality MASK - BIPAP MASK - BIPAP Blood Gas Notified Time 09/28/2016 10:03:02 AM 09/28/2016 11:17:44 AM Blood Gas Notified Whom RosemaryACCOUNTS RECEIVABLE ACCOUNTANT M.D.ACCOUNTS RECEIVABLE ACCOUNTANT Blood Gas Pressure Support 15 15 Blood Gas Respiration Rate 18.0 18.0 Blood Gas Specimen Source Blood arterial Blood arterial Blood Gas Temperature 37.0 37.0 FiO2 35.0 70.0 Oxyhemoglobin Percent 84.2 L 90.5 L Total Hemoglobin 13.0 12.9 Lactic Acid Level 1.2 Urine Bacteria MANY Urine Bilirubin NEGATIVE Urine Clarity CLOUDY H Urine Color LT. YELLOW Urine Epithelial Cells FEW Urine Glucose NEGATIVE Urine Hemoglobin 3+ H Urine Ketones NEGATIVE Urine Leukocyte Esterase TRACE H Urine Microscopic RBC >50 Urine Microscopic WBC 0-2 Urine Nitrite POSITIVE H Urine Specific [place] 1.025 Urine Total Protein 2+ H Urine Urobilinogen 0.2 E.U./dL Urine pH 5.5 Test 09/28/16 12:56 09/28/16 16:38 09/28/16 21:00 09/29/16 03:10 Arterial Blood HCO3 38.5 H Arterial Blood Base Excess 12.3 H Arterial Blood Oxygen Saturation 97.7 Thomas Test ACCEPTAB Arterial Blood Gas Puncture Site Left Radial Arterial Blood Carboxyhemoglobin 0.5 Arterial Blood Date Drawn 09/28/2016 12:52:46 PM Arterial Blood Methemoglobin 0.4 Arterial Blood pCO2 (Temp correct) 55.7 H Arterial Blood pH (Temp corrected) 7.457 H Arterial Blood pO2 (Temp corrected) 102.0 H Blood Gas A-a O2 Differential 555.3 H Blood Gas Actual Respiration Rate 16 Blood Gas Low PEEP Setting 5.0 Blood Gas Modality VENT - AC Blood Gas Notified Time 09/28/2016 1:01:35 PM Blood Gas Notified Whom MJessicaDJessicaACCOUNTS RECEIVABLE ACCOUNTANT Blood Gas Respiration Rate 16.0 Blood Gas Specimen Source Blood arterial Blood Gas Temperature 37.0 Blood Gas Tidal Volume 550.0 FiO2 100.0 Oxyhemoglobin Percent 96.8 Total Hemoglobin 13.4 Creatine Kinase 27 < 20 L < 20 L Creatine Kinase Index 8.1 Creatinine Kinase MB (Mass) 2.20 1.45 0.78 Lactic Acid Level 2.6 H 1.7 Troponin I 0.067 0.082 0.074 Test 09/29/16 04:50 09/29/16 07:00 Anion Gap 11 Basophils # 0.0 Basophils % 0.0 Blood Morphology Comment Blood Urea Nitrogen 31 H Calcium Level 8.4 Carbon Dioxide Level 41 *H Chloride Level 91 L Cholesterol Level 144 Cholesterol/HDL Ratio 3.2 Creatinine 0.65 Eosinophils # 0.0 Eosinophils % 0.0 Glucose Level 155 HDL Cholesterol 44 Hematocrit 34.7 L Hemoglobin 11.4 L LDL Cholesterol, Calculated 51 Lymphocytes # 0.4 L Lymphocytes % 3.2 L Magnesium Level 1.8 Mean Corpuscular Hemoglobin 32.5 Mean Corpuscular Hemoglobin Concent 33.0 Mean Corpuscular Volume 98.5 Mean Platelet Volume 7.4 Monocytes # 0.3 Monocytes % 2.4 Neutrophils # 12.4 H Neutrophils % 94.4 H Nucleated Red Blood Cells # 0.0 Nucleated Red Blood Cells % 0.0 Platelet Count 219 # Potassium Level 4.3 Red Blood Count 3.52 L Red Cell Distribution Width 15.8 H Sodium Level 139 Thyroid Stimulating Hormone (TSH) 0.204 L Triglycerides Level 244 H White Blood Count 13.2 #H Arterial Blood HCO3 35.9 H Arterial Blood Base Excess 11.7 H Arterial Blood Oxygen Saturation 97.5 Thomas Test ACCEPTAB Arterial Blood Gas Puncture Site Right Radial Arterial Blood Carboxyhemoglobin 0.3 Arterial Blood Date Drawn 09/29/2016 7:20:37 AM Arterial Blood Methemoglobin 0.2 Arterial Blood pCO2 (Temp correct) 45.0 Arterial Blood pH (Temp corrected) 7.520 H Arterial Blood pO2 (Temp corrected) 98.6 Blood Gas A-a O2 Differential 424.6 H Blood Gas Actual Respiration Rate 18 Blood Gas Low PEEP Setting 8.0 Blood Gas Modality VENT - AC Blood Gas Notified Time 09/29/2016 7:43:21 AM Blood Gas Notified Whom JLD Blood Gas Respiration Rate 18.0 Blood Gas Specimen Source Blood arterial Blood Gas Temperature 37.0 Blood Gas Tidal Volume 500.0 FiO2 80.0 Oxyhemoglobin Percent 97.0 Total Hemoglobin 12.5 Medications Medications Current Medications IV Flush 10 ml 10 ml PRN PRN IV IV PROTOCOL; Start 09/28/16 at 14:00 Levofloxacin/ Dextrose 100 ml @ 100 mls/hr Q24H IV Last administered on 17:12; Admin Dose 100 MLS/HR; Start 09/28/16 at 14:30 Propofol 100 ml @ 0 mls/hr TITRATE PRN IV SEDATION Last administered on 03:16; Admin Dose 13.5 MLS/HR; Start 09/28/16 at 14:30 Azithromycin (Zithromax 500mg/ NS (Pmx)) 250 ml @ 250 mls/hr Q24H IVPB Last administered on 09/28/16 17:13; Admin Dose 250 MLS/HR; Start 09/28/16 at 15:00 Ondansetron HCl (Zofran Inj) 4 mg Q6H PRN IV NAUSEA AND/OR VOMITING; Start at 15:00 Methylprednisolone Sodium Succinate (Solu-Medrol) 60 mg Q6 IV Last administered on 09/29/16 06:47; Admin Dose 60 MG; Start 09/28/16 at 18:00 Nitroglycerin (Nitroglycerin (Sl Tab) 0.4 Mg) 1 tab Q5M PRN SL CHEST PAIN; Start 09/28/16 at 15:00 Acetaminophen (Tylenol Liquid) 650 mg Q6H PRN PO PAIN LEVEL 1-3 OR FEVER; Start 09/28/16 at 15:00 Acetaminophen (Tylenol Tab) 650 mg Q6H PRN PO PAIN LEVEL 1-3 OR FEVER; Start at 15:00 Morphine Sulfate (morphine) 2 mg Q4H PRN IV PAIN LEVEL 7-10 Last administered on 09/29/16 02:30; Admin Dose 2 MG; Start 09/28/16 at 15:00 Lorazepam (Ativan) 1 mg Q2H PRN IV ANXIETY; Start 09/28/16 at 15:00 Docusate Sodium (Colace) 100 mg Q12H PRN PO CONSTIPATION; Start 09/28/16 at 15: 00 Famotidine (Pepcid) 20 mg Q12 PO Last administered on 09/29/16 08:32; Admin Dose 20 MG; Start 09/28/16 at 21:00 Enoxaparin Sodium (Lovenox) 40 mg DAILY SC ; Start 09/29/16 at 09:00 Aspirin (Aspirin) 81 mg DAILY PO Last administered on 09/29/16 08:32; Admin Dose 81 MG; Start 09/29/16 at 09:00 Atorvastatin Calcium (Lipitor) 10 mg QHS PO ; Start 09/28/16 at 21:00 Clopidogrel Bisulfate (plaVIX) 75 mg DAILY PO Last administered on 09/29/16 08 :31; Admin Dose 75 MG; Start 09/29/16 at 09:00 Furosemide (Lasix) 40 mg DAILY PO Last administered on 09/29/16 08:31; Admin Dose 40 MG; Start 09/29/16 at 09:00 Lisinopril (Zestril) 5 mg DAILY PO Last administered on 09/29/16 08:32; Admin Dose 5 MG; Start 09/29/16 at 09:00 Metoprolol Succinate (Toprol Xl) 25 mg DAILY PO Last administered on 09/29/16 08:32; Admin Dose 25 MG; Start 09/29/16 at 09:00 Salmeterol Xinafoate/ Fluticasone (Advair 250/50 Diskus) 1 inh BID INH ; Start 1/23/17 at 21:00 Tiotropium [place] 1 inh 1 inh DAILY INH ; Start 09/28/16 at 16:00; Status Future Hold Cefepime HCl (Maxipime 1gm/50 ml (Pmx)) 50 ml @ 100 mls/hr Q12 IV Last administered on 09/29/16t 08:34; Admin Dose 100 MLS/HR; Start 09/28/16 at 17:00 Hydralazine HCl (Apresoline) 10 mg Q6H PRN IV ELEVATED BLOOD PRESSURE; Start at 16:00 ROSE PÉREZ Sep 29, 2016 09:24
[2016-09-29] MEDS ORDERED: VANCOMYCIN IV PER PHARMACY XX SCH (14:00)
--- NOTE | 2016-09-29 14:07 | PN ---
Date/Time of Note Date/Time of Note DATE: 09/29/16 TIME: 13:54 Assessment/Plan VTE Prophylaxis VTE Prophylaxis Intervention: LMWH Lines/Catheters IV Catheter Type (from Nrs): PICC Line Central line still needed: Yes Urinary Cath still in place: Yes Reason Cath still needed: other (indicate) Assessment/Plan Assessment/Plan 1. facility acquired pneumonia, zosyn/vancomycin 2. COPD exacerbation, neb, antibiotics, steroid 3. Acute respiratory failure, on vent, follow up with pulmonology 4. Congestive heart failure, systolic, chronic 5. Ischemic cardiomyopathy 6. CAD 7. SSS, s/p pacemaker 8. Essential hypertension. Will continue patient's home medication, metoprolol , Zestril. 9 9. Dyslipidemia. Continue statin. 10. DVT prophylaxis on Lovenox. 11. GI prophylaxis: pepcid 12. Reviewed old records and x-rays Subjective 24 Hr Interval Summary Free Text/Dictation sedated, on vent Exam/Review of Systems Vital Signs Vitals Vital Signs Date Time Temp Pulse Resp B/P Pulse Ox O2 Delivery O2 Flow Rate FiO2 09/29/16 13:06 65 14 94 60 09/29/16 12:00 98.8 142/92 Mechanical Ventilator 09/28/16 09:22 2 Intake and Output 09/28/16 09/28/16 09/29/16 15:00 23:00 07:00 Intake Total 67.5 ml 162.2 ml Output Total 815 ml 590 ml Balance -747.5 ml -427.8 ml Exam Constitutional: non-verbal, other (sedated on vent) Head: atraumatic, normocephalic Eyes: EOMI, PERRL, nl conjunctiva, nl lids, nl sclera ENMT: intubated, mucosa pink and moist, nl external ears & nose, nl lips & teeth, nl nasal mucosa & septum Neck: non-tender, supple Respiratory: clear to auscultation, diminished breath sounds, normal air movement Cardiovascular: nl pulses, regular rate and rhythm, No S3, No S4, No bruits, No diastolic murmur, No edema, No gallop, No irregular rhythm, No jugular venous distention (JVD), No murmurs/extra sounds, No rub, No systolic murmur Gastrointestinal: nl liver, spleen, non-tender, soft, No ascites, No bowel sounds, No distended, No firm, No hepatomegaly, No mass , No rebound or guarding, No splenomegaly, No surgical scars Musculoskeletal: nl extremities to inspection Extremities: normal pulses, No calf tenderness, No clubbing, No cyanosis, No edema, No palpable cord, No pitting pedal edema, No tenderness Neurological: other (sedated), unresponsive Skin: nl turgor, rash or lesions Lymph: nl lymph nodes Results Result Diagram: 09/29/16 0450 09/29/16 0450 Results 24 hrs Laboratory Tests Test 09/28/16 16:38 09/28/16 21:00 09/29/16 03:10 09/29/16 04:50 Creatine Kinase 27 < 20 L < 20 L Creatine Kinase Index 8.1 Creatinine Kinase MB (Mass) 2.20 1.45 0.78 Lactic Acid Level 2.6 H 1.7 Troponin I 0.067 0.082 0.074 Anion Gap 11 Basophils # 0.0 Basophils % 0.0 Blood Morphology Comment Blood Urea Nitrogen 31 H Calcium Level 8.4 Carbon Dioxide Level 41 *H Chloride Level 91 L Cholesterol Level 144 Cholesterol/HDL Ratio 3.2 Creatinine 0.65 Eosinophils # 0.0 Eosinophils % 0.0 Glucose Level 155 HDL Cholesterol 44 Hematocrit 34.7 L Hemoglobin 11.4 L LDL Cholesterol, Calculated 51 Lymphocytes # 0.4 L Lymphocytes % 3.2 L Magnesium Level 1.8 Mean Corpuscular Hemoglobin 32.5 Mean Corpuscular Hemoglobin Concent 33.0 Mean Corpuscular Volume 98.5 Mean Platelet Volume 7.4 Monocytes # 0.3 Monocytes % 2.4 Neutrophils # 12.4 H Neutrophils % 94.4 H Nucleated Red Blood Cells # 0.0 Nucleated Red Blood Cells % 0.0 Platelet Count 219 # Potassium Level 4.3 Red Blood Count 3.52 L Red Cell Distribution Width 15.8 H Sodium Level 139 Thyroid Stimulating Hormone (TSH) 0.204 L Triglycerides Level 244 H White Blood Count 13.2 #H Test 09/29/16 07:00 Arterial Blood HCO3 35.9 H Arterial Blood Base Excess 11.7 H Arterial Blood Oxygen Saturation 97.5 Thomas Test ACCEPTAB Arterial Blood Gas Puncture Site Right Radial Arterial Blood Carboxyhemoglobin 0.3 Arterial Blood Date Drawn 09/29/2016 7:20:37 AM Arterial Blood Methemoglobin 0.2 Arterial Blood pCO2 (Temp correct) 45.0 Arterial Blood pH (Temp corrected) 7.520 H Arterial Blood pO2 (Temp corrected) 98.6 Blood Gas A-a O2 Differential 424.6 H Blood Gas Actual Respiration Rate 18 Blood Gas Low PEEP Setting 8.0 Blood Gas Modality VENT - AC Blood Gas Notified Time 09/29/2016 7:43:21 AM Blood Gas Notified Whom JLD Blood Gas Respiration Rate 18.0 Blood Gas Specimen Source Blood arterial Blood Gas Temperature 37.0 Blood Gas Tidal Volume 500.0 FiO2 80.0 Oxyhemoglobin Percent 97.0 Total Hemoglobin 12.5 Medications Medications Current Medications IV Flush 10 ml 10 ml PRN PRN IV IV PROTOCOL; Start 09/28/16 at 14:00 Levofloxacin/ Dextrose 100 ml @ 100 mls/hr Q24H IV Last administered on 17:12; Admin Dose 100 MLS/HR; Start 09/28/16 at 14:30 Propofol 100 ml @ 0 mls/hr TITRATE PRN IV SEDATION Last administered on 03:16; Admin Dose 13.5 MLS/HR; Start 09/28/16 at 14:30 Azithromycin (Zithromax 500mg/ NS (Pmx)) 250 ml @ 250 mls/hr Q24H IVPB Last administered on 09/28/16 17:13; Admin Dose 250 MLS/HR; Start 09/28/16 at 15:00 Ondansetron HCl (Zofran Inj) 4 mg Q6H PRN IV NAUSEA AND/OR VOMITING; Start at 15:00 Methylprednisolone Sodium Succinate (Solu-Medrol) 60 mg Q6 IV Last administered on 09/29/16 06:47; Admin Dose 60 MG; Start 09/28/16 at 18:00 Nitroglycerin (Nitroglycerin (Sl Tab) 0.4 Mg) 1 tab Q5M PRN SL CHEST PAIN; Start 09/28/16 at 15:00 Acetaminophen (Tylenol Liquid) 650 mg Q6H PRN PO PAIN LEVEL 1-3 OR FEVER; Start 09/28/16 at 15:00 Acetaminophen (Tylenol Tab) 650 mg Q6H PRN PO PAIN LEVEL 1-3 OR FEVER; Start at 15:00 Morphine Sulfate (morphine) 2 mg Q4H PRN IV PAIN LEVEL 7-10 Last administered on 09/29/16 02:30; Admin Dose 2 MG; Start 09/28/16 at 15:00 Lorazepam (Ativan) 1 mg Q2H PRN IV ANXIETY; Start 09/28/16 at 15:00 Docusate Sodium (Colace) 100 mg Q12H PRN PO CONSTIPATION; Start 09/28/16 at 15: 00 Famotidine (Pepcid) 20 mg Q12 PO Last administered on 09/29/16 08:32; Admin Dose 20 MG; Start 09/28/16 at 21:00 Enoxaparin Sodium (Lovenox) 40 mg DAILY SC ; Start 09/29/16 at 09:00 Aspirin (Aspirin) 81 mg DAILY PO Last administered on 09/29/16 08:32; Admin Dose 81 MG; Start 09/29/16 at 09:00 Atorvastatin Calcium (Lipitor) 10 mg QHS PO ; Start 09/28/16 at 21:00 Clopidogrel Bisulfate (plaVIX) 75 mg DAILY PO Last administered on 09/29/16 08 :31; Admin Dose 75 MG; Start 09/29/16 at 09:00 Furosemide (Lasix) 40 mg DAILY PO Last administered on 09/29/16 08:31; Admin Dose 40 MG; Start 09/29/16 at 09:00 Lisinopril (Zestril) 5 mg DAILY PO Last administered on 09/29/16 08:32; Admin Dose 5 MG; Start 09/29/16 at 09:00 Metoprolol Succinate (Toprol Xl) 25 mg DAILY PO Last administered on 09/29/16 08:32; Admin Dose 25 MG; Start 09/29/16 at 09:00 Salmeterol Xinafoate/ Fluticasone (Advair 250/50 Diskus) 1 inh BID INH ; Start 09/28/16 at 21:00 Tiotropium [place] 1 inh 1 inh DAILY INH ; Start 09/28/16 at 16:00; Status Future Hold Cefepime HCl (Maxipime 1gm/50 ml (Pmx)) 50 ml @ 100 mls/hr Q12 IV Last administered on 09/29/16 08:34; Admin Dose 100 MLS/HR; Start 09/28/16 at 17:00 Hydralazine HCl (Apresoline) 10 mg Q6H PRN IV ELEVATED BLOOD PRESSURE; Start at 16:00 FUNMI MEZA MD Sep 29, 2016 14:04
--- NOTE | 2016-09-29 15:21 | CONS ---
DATE OF ADMISSION: 09/28/2016 DATE OF CONSULTATION: 09/29/2016 HISTORY SOURCE: I have spoken to the patient's Critical Care nurse, Shay, who also helped me ob tain some past medical history. HISTORY OF PRESENT ILLNESS: The patient is a 66-year-old gentleman who is well known to the [facility] list service who has been readmitted to this hospital on numerous occasions for congestive heart aj lure. This admission was for COPD exacerbation and congestive heart failure. He has an EF of 25%. In the emergency room, he was saturating and required intubation. A pCO2 at that time was 94, pH 7 .269. He is in the ICU at this time requiring sedation and he is not on pressors at this time. He is on 60% FIO2 and PEEP of 8. MEDICATIONS: Please refer to reconciliation sheets. ALLERGIES: UNKNOWN. MAJOR MEDICAL PROBLEMS: Most significant: As per history of present illness, otherwise incomplete database. I will review his other past medical admissions. SOCIAL HISTORY: Unknown. FAMILY HISTORY: Unknown. REVIEW OF SYSTEMS: Cannot be obtained. The patient is intubated. PHYSICAL EXAMINATION: VITAL SIGNS: Blood pressure 142/92, pulse of 73 and regular, respirations of 18, temperature is 98. 8 degrees, 94% saturation, 60% and PEEP of 8. HEENT: He is normocephalic and atraumatic. Anicteric. He is ashen on examination, noncommunicativ e. CHEST: Shows inspiratory and expiratory rales and rhonchi. HEART: S1, S2, without S3, S4, murmur, gallop, rub. Normal rate and rhythm cannot be evaluated sec ondary to increased inspiratory and expiratory breath sounds. ABDOMEN: Grossly benign. NEUROLOGIC: He is sedated at this time. LABORATORY TESTS: White blood cell count 13.2, hemoglobin 11.4, hematocrit 30.17, MCV of 98.5, plat elet count 219,000. Chemistries: Serum sodium 139, potassium 4.3, chloride 91, bicarbonate 41, BUN of 31, creatinine 0.65. Blood sugar 155: Today's chest x-ray: Mild cardiomegaly, pulmonary vascular congestion, mild bibasilar atelectasis, consolidations and small pleural effusion unchanged, aortic atherosclerosis. Two in lines in place. ASSESSMENT AND PLAN: This is a very ill 66-year-old gentleman who is in the ICU at [facility] with a history of recurrent admissions for congestive heart failure and chronic obstructive pulmona ry disease exacerbation. He is currently receiving aggressive treatment. He has a history of ische dilma cardiomyopathy with recurrent admissions. He is well known to the hospitalist service. [place]arkaia shelly, there is a mother and a friend who speaks on his behalf. I will call them and schedule a famil y conference as soon as possible to address first his code status and long-term plans for level of c are. Dictated By: ARJUN ROJAS MD LP/NTS Conf#: [id number] DID#: [id number]
[2016-09-29] MEDS: PIPER-TAZO 3.375 GM IV (PMX) 100 ML IVPB SCH ×2 (15:26→19:03)
[2016-09-29] MEDS ORDERED: VANCOMYCIN 2 GM in SOD CHLORIDE 0.9% 500 ML IVPB SCH (15:30)
[2016-09-29] MEDS: ATORVASTATIN 10 MG TAB PO SCH (21:00)
[2016-09-30] VITALS (45 sets, daily range): BP systolic 106–155; BP diastolic 75–110; PULSE 60–89; RESP 11–40
[2016-09-30] MEDS: PIPER-TAZO 3.375 GM IV (PMX) 100 ML IVPB SCH ×4 (00:02→17:49)
[2016-09-30] MEDS: METHYLPREDNISOLONE 125 MG INJ IV SCH ×4 (00:02→17:49)
[2016-09-30] MEDS: IPRATROPIUM (HFA) 12.9 GM INHALER INH SCH ×4 (01:12→19:40)
[2016-09-30] MEDS: ALBUTEROL HFA 8 GM INHALER INH SCH ×6 (01:12→19:40)
[2016-09-30] MEDS: PROPOFOL 100 ML IV PRN ×3 (02:37→19:08)
[2016-09-30] MEDS: VANCOMYCIN 1.5 GM in SOD CHLORIDE 0.9% 250 ML IVPB SCH ×2 (03:19→15:00)
[2016-09-30 05:45] LABS: HEMATOCRIT 33.4 % (42.0-52.0); HEMOGLOBIN 11.1 g/dl (14.0-18.0); LYMPHOCYTES # 0.3 10^3/ul (0.8-2.9); LYMPHOCYTES % 2.9 % (15.0-51.0); MEAN CORPUSCULAR HEMOGLOBIN 32.6 pg (29.0-33.0); MEAN CORPUSCULAR HGB CONC 33.2 g/dl (32.0-37.0); MEAN CORPUSCULAR VOLUME 98.4 fl (82.0-101.0); MEAN PLATELET VOLUME 7.1 fl (7.4-10.4); MONOCYTE # 0.5 10^3/ul (0.3-0.9); MONOCYTES % 4.4 % (0.0-11.0); NEUTROPHIL # 10.1 10^3/ul (1.6-7.5); NEUTROPHILS % 92.7 % (39.0-77.0); PLATELET COUNT 169 10^3/UL (140-440); RED CELL DISTRIBUTION WIDTH 16.1 % (11.5-14.5); UNCORRECTED WBC 10.9 10^3/ul (4.8-10.8); WHITE BLOOD COUNT 10.9 10^3/ul (4.8-10.8)
[2016-09-30 05:58] LABS: CONDITION 1; LH ANALYZER COMMENTS 1
[2016-09-30 06:14] LABS: POTASSIUM 3.8 mmol/L (3.5-5.1)
[2016-09-30 06:17] LABS: CREATININE 0.75 mg/dl (0.61-1.24)
[2016-09-30 06:18] LABS: CALCIUM 8.3 mg/dl (8.4-10.2)
--- NOTE | 2016-09-30 08:40 | CONS ---
Date/Time of Note Date/Time of Note DATE: 09/30/16 TIME: 08:36 Assessment/Plan Assessment/Plan Additional Assessment/Plan Assessment and recommendations; next 1. Patient admitted with respect to recurrent respiratory failure and bilateral pneumonia and COPD exacerbation. Next 2. Significant improvement in leukocytosis. 3. Chest x-ray was reviewed from short while ago which is again showing persistent bilateral lower lobe changes which are likely chronic in appearance. 4. Recent right toe fracture, foot in a splint. At this time ventilator settings have been adjusted patient has been switched over to SIMV with pressure support and PEEP has been decreased to 7, and ABG be performed in a short while and if the ABG is adequate patient will be given a weaning trial from mechanical ventilation in anticipation of weaning I would recommend stopping propofol as well as holding tube feeding. Will continue current supportive care, antibiotics. Prognosis is guarded. Consultation Date/Type/Reason Admit Date/Time Sep 28, 2016 at 14:41 Initial Consult Date 09/28/16 24 HR Interval Summary Free Text/Dictation Patient's condition is stable. The patient despite being on propofol drip is readily arousable and follows simple commands. Has remained hemodynamically stable. Next General examination; elderly, awake, or intubated, currently in no distress. Awake and alert. Exam/Review of Systems Vital Signs Vitals Vital Signs Date Time Temp Pulse Resp B/P Pulse Ox O2 Delivery O2 Flow Rate FiO2 09/30/16 07:30 64 14 95 50 09/30/16 06:00 111/78 Mechanical Ventilator 09/30/16 04:00 98.3 09/28/16 09:22 2 Intake and Output 09/29/16 09/29/16 09/30/16 15:00 23:00 07:00 Intake Total 94.5 ml 227.5 ml 937.832 ml Output Total 780 ml 800 ml 405 ml Balance -685.5 ml -572.5 ml 532.832 ml Exam HEENT examination; supple neck, or intubated. Midsize pupils. No neck masses, no lymphadenopathy, no thyromegaly, fair dentition. Supple neck. Chest examination; diminished but clear breath sounds in upper lobes to be decreased breath sounds in lung bases bilaterally. S1-S2 audible no murmurs regular rhythm. Abdomen examination; soft, nondistended, no organomegaly, nontender, bowel sounds audible. Extremity examination; no peripheral edema, pulses 1+ bilaterally. Right foot is in a cast. CLINICAL DOCUMENTATION CONSULTANT examination patient is awake, alert, follows simple commands. There is residual right sided weakness. Results Result Diagram: 09/30/16 0440 09/30/16 0440 Results 24 hrs Laboratory Tests Test 09/30/16 04:40 Anion Gap 13 Basophils # 0.0 Basophils % 0.0 Blood Morphology Comment Blood Urea Nitrogen 32 H Calcium Level 8.3 L Carbon Dioxide Level 39 H Chloride Level 92 L Creatinine 0.75 Eosinophils # 0.0 Eosinophils % 0.0 Glucose Level 168 Hematocrit 33.4 L Hemoglobin 11.1 L Lymphocytes # 0.3 L Lymphocytes % 2.9 L Mean Corpuscular Hemoglobin 32.6 Mean Corpuscular Hemoglobin Concent 33.2 Mean Corpuscular Volume 98.4 Mean Platelet Volume 7.1 L Monocytes # 0.5 Monocytes % 4.4 Neutrophils # 10.1 H Neutrophils % 92.7 H Nucleated Red Blood Cells # 0.0 Nucleated Red Blood Cells % 0.0 Platelet Count 169 # Potassium Level 3.8 Red Blood Count 3.40 L Red Cell Distribution Width 16.1 H Sodium Level 140 White Blood Count 10.9 H Medications Medications Current Medications IV Flush 10 ml 10 ml PRN PRN IV IV PROTOCOL; Start 09/28/16 at 14:00 Propofol (Diprivan) 100 ml @ 0 mls/hr TITRATE PRN IV SEDATION Last administered on 09/30/16 02:37; Admin Dose 13.5 MLS/HR; Start 09/28/16 at 14:30 Ondansetron HCl (Zofran Inj) 4 mg Q6H PRN IV NAUSEA AND/OR VOMITING; Start at 15:00 Methylprednisolone Sodium Succinate (Solu-Medrol) 60 mg Q6 IV Last administered on 09/30/16 05:49; Admin Dose 60 MG; Start 09/28/16 at 18:00 Nitroglycerin (Nitroglycerin (Sl Tab) 0.4 Mg) 1 tab Q5M PRN SL CHEST PAIN; Start 09/28/16 at 15:00 Acetaminophen (Tylenol Liquid) 650 mg Q6H PRN PO PAIN LEVEL 1-3 OR FEVER; Start 09/28/16 at 15:00 Acetaminophen (Tylenol Tab) 650 mg Q6H PRN PO PAIN LEVEL 1-3 OR FEVER; Start at 15:00 Morphine Sulfate (morphine) 2 mg Q4H PRN IV PAIN LEVEL 7-10 Last administered on 09/29/16 02:30; Admin Dose 2 MG; Start 09/28/16 at 15:00 Lorazepam (Ativan) 1 mg Q2H PRN IV ANXIETY; Start 09/28/16 at 15:00 Docusate Sodium (Colace) 100 mg Q12H PRN PO CONSTIPATION; Start 09/28/16 at 15: 00 Famotidine (Pepcid) 20 mg Q12 PO Last administered on 09/29/16 21:00; Admin Dose 20 MG; Start 09/28/16 at 21:00 Enoxaparin Sodium (Lovenox) 40 mg DAILY SC ; Start 09/29/16 at 09:00 Aspirin (Aspirin) 81 mg DAILY PO Last administered on 09/29/16 08:32; Admin Dose 81 MG; Start 09/29/16 at 09:00 Atorvastatin Calcium (Lipitor) 10 mg QHS PO Last administered on 09/29/16 21: 00; Admin Dose 10 MG; Start 09/28/16 at 21:00 Clopidogrel Bisulfate (plaVIX) 75 mg DAILY PO Last administered on 09/29/16 08 :31; Admin Dose 75 MG; Start 09/29/16 at 09:00 Furosemide (Lasix) 40 mg DAILY PO Last administered on 09/29/16 08:31; Admin Dose 40 MG; Start 09/29/16 at 09:00 Lisinopril (Zestril) 5 mg DAILY PO Last administered on 09/29/16 08:32; Admin Dose 5 MG; Start 09/29/16 at 09:00 Metoprolol Succinate (Toprol Xl) 25 mg DAILY PO Last administered on 09/29/16 08:32; Admin Dose 25 MG; Start 09/29/16 at 09:00 Salmeterol Xinafoate/ Fluticasone (Advair 250/50 Diskus) 1 inh BID INH ; Start 09/28/16 at 21:00 Tiotropium [place] (Spiriva) 1 inh DAILY INH ; Start 09/28/16 at 16:00; Status Future Hold Hydralazine HCl 10 mg 10 mg Q6H PRN IV ELEVATED BLOOD PRESSURE; Start 09/28/16 at 16:00 Piperacillin Sod/ Tazobactam Sod 100 ml @ 200 mls/hr Q6 IVPB Last administered on 09/30/16 05:48; Admin Dose 200 MLS/HR; Start 09/29/16 at 14:35 Vancomycin HCl/ Sodium Chloride (Vancocin/NS) 250 ml @ 83.333 mls/ hr Q12H IVPB Last administered on 09/30/16 03:19; Admin Dose 83.333 MLS/HR; Start at 03:00 Mupirocin (Bactroban) 1 applic BID TOP ; Start 09/30/16 at 09:00 ROSE PÉREZ Sep 30, 2016 08:39
--- NOTE | 2016-09-30 08:55 | RADRPT ---
PROCEDURE: Chest Radiograph. CLINICAL INDICATION: Pneumonia TECHNIQUE: Single frontal chest radiograph. COMPARISON: Chest radiograph 09/29/2015 FINDINGS: Evaluation of lines and tubes is mildly limited by multiple overlying monitor leads.. An endotrache al tube remains in place with distal tip approximately 2.1 cm above the [place]. A left chest wall i mplantable defibrillator is unchanged. A right upper extremity PICC is in place, stable. There has been interval placement of a nasogastric tube with distal tip coursing below the inferior portions of the image, presumably within the stomach the heart remains enlarged. There is persistent central vascular congestion. Bibasilar opacities likely representing combinations of pleural effusions wi th adjacent atelectasis/infiltrate persist with mild improvement on the left, and mild worsening on the right. IMPRESSION: 1. Persistent bibasilar pleural / parenchymal disease, mildly improved on the left, mildly worsened on the right. 2. Interval placement nasogastric tube. Distal tip courses below the inferior portions of the imag e, as likely within the stomach. 3. Otherwise stable radiographic appearance of the chest compared to 09/29/2016. RPTAT: KK .Ozzie Casas MD, MD Date Time Electronically viewed and signed by .Ozzie Casas MD, on 09/30/2016 08:54 .B/
[2016-09-30] MEDS: FUROSEMIDE 40 MG TAB PO SCH (09:39)
[2016-09-30] MEDS: METOPROLOL (XL) 25 MG TAB PO SCH (09:39)
[2016-09-30] MEDS: FAMOTIDINE 20 MG TAB PO SCH ×2 (09:39→22:25)
[2016-09-30] MEDS: LISINOPRIL 5 MG TAB PO SCH (09:40)
[2016-09-30] MEDS: ASPIRIN 81 MG TAB PO SCH (09:40)
[2016-09-30] MEDS: CLOPIDOGREL 75 MG TAB PO SCH (09:40)
[2016-09-30] MEDS: ENOXAPARIN 40 MG/0.4 ML SYG SC SCH (09:45)
[2016-09-30 09:55] LABS: AADO2 Arterial 227.8 mmHg (7.0-24.0); Allen Test ACCEPTAB; Arterial Base Excess 10.2 mmol/L (-3.0-3); Arterial COHb 0.3 % (0.0-3.0); Arterial Fraction of Oxyhgb 85.9 % (93.0-99.0); Arterial HCO3 37.3 mmol/L (22.0-26.0); Arterial MetHb 0.2 % (0.0-1.5); Arterial Total Hemglobin 13.2 g/dl (12.0-18.0); MODE VENT - SIMV
--- NOTE | 2016-09-30 11:46 | PN ---
Date/Time of Note Date/Time of Note DATE: 09/30/16 TIME: 11:39 Assessment/Plan VTE Prophylaxis VTE Prophylaxis Intervention: LMWH Lines/Catheters IV Catheter Type (from Nrs): PICC Line Central line still needed: Yes Urinary Cath still in place: Yes Reason Cath still needed: other (indicate) Assessment/Plan Assessment/Plan 1. facility acquired pneumonia, zosyn/vancomycin 2. COPD exacerbation, neb, antibiotics, steroid 3. Acute respiratory failure, on vent, follow up with pulmonology 4. Congestive heart failure, systolic, chronic 5. Ischemic cardiomyopathy 6. CAD 7. SSS, s/p pacemaker 8. Essential hypertension. Will continue patient's home medication, metoprolol , Zestril. 9 9. Dyslipidemia. Continue statin. 10. DVT prophylaxis on Lovenox. 11. GI prophylaxis: pepcid Subjective 24 Hr Interval Summary Free Text/Dictation failed extubation this morning on FiO2 50% SIMV Exam/Review of Systems Vital Signs Vitals Vital Signs Date Time Temp Pulse Resp B/P Pulse Ox O2 Delivery O2 Flow Rate FiO2 09/30/16 11:15 66 14 91 50 09/30/16 09:00 152/95 09/30/16 08:00 98.8 Mechanical Ventilator 09/28/16 09:22 2 Intake and Output 09/29/16 09/29/16 09/30/16 15:00 23:00 07:00 Intake Total 94.5 ml 227.5 ml 937.832 ml Output Total 780 ml 800 ml 405 ml Balance -685.5 ml -572.5 ml 532.832 ml Exam Constitutional: alert, non-verbal, oriented, other (intubated) Head: atraumatic, normocephalic Eyes: EOMI, PERRL, nl conjunctiva, nl lids, nl sclera ENMT: intubated, mucosa pink and moist, nl external ears & nose, nl lips & teeth, nl nasal mucosa & septum Neck: non-tender, supple Respiratory: other (diffuse rhonchi) Cardiovascular: nl pulses, regular rate and rhythm, No S3, No S4, No bruits, No diastolic murmur, No edema, No gallop, No irregular rhythm, No jugular venous distention (JVD), No murmurs/extra sounds, No rub, No systolic murmur Gastrointestinal: nl liver, spleen, non-tender, soft, No ascites, No bowel sounds, No distended, No firm, No hepatomegaly, No mass , No rebound or guarding, No splenomegaly, No surgical scars, No tender Musculoskeletal: nl extremities to inspection Extremities: normal pulses Neurological: CLINICAL DATA ANALYST II-XII intact, nl mental status, nl strength Skin: nl turgor, rash or lesions Lymph: nl lymph nodes Results Result Diagram: 09/30/16 0440 09/30/16 0440 Results 24 hrs Laboratory Tests Test 09/30/16 04:40 09/30/16 08:30 Anion Gap 13 Basophils # 0.0 Basophils % 0.0 Blood Morphology Comment Blood Urea Nitrogen 32 H Calcium Level 8.3 L Carbon Dioxide Level 39 H Chloride Level 92 L Creatinine 0.75 Eosinophils # 0.0 Eosinophils % 0.0 Glucose Level 168 Hematocrit 33.4 L Hemoglobin 11.1 L Lymphocytes # 0.3 L Lymphocytes % 2.9 L Mean Corpuscular Hemoglobin 32.6 Mean Corpuscular Hemoglobin Concent 33.2 Mean Corpuscular Volume 98.4 Mean Platelet Volume 7.1 L Monocytes # 0.5 Monocytes % 4.4 Neutrophils # 10.1 H Neutrophils % 92.7 H Nucleated Red Blood Cells # 0.0 Nucleated Red Blood Cells % 0.0 Platelet Count 169 # Potassium Level 3.8 Red Blood Count 3.40 L Red Cell Distribution Width 16.1 H Sodium Level 140 White Blood Count 10.9 H Arterial Blood HCO3 37.3 H Arterial Blood Base Excess 10.2 H Arterial Blood Oxygen Saturation 86.3 L Thomas Test ACCEPTAB Arterial Blood Gas Puncture Site Right Radial Arterial Blood Carboxyhemoglobin 0.3 Arterial Blood Date Drawn 09/30/2016 9:40:11 AM Arterial Blood Methemoglobin 0.2 Arterial Blood pCO2 (Temp correct) 62.1 H Arterial Blood pH (Temp corrected) 7.397 Arterial Blood pO2 (Temp corrected) 58.8 L Blood Gas A-a O2 Differential 227.8 H Blood Gas Actual Respiration Rate 27 Blood Gas Low PEEP Setting 6.0 Blood Gas Modality VENT - SIMV Blood Gas Notified Time 09/30/2016 9:55:13 AM Blood Gas Notified Whom DT Blood Gas Respiration Rate 14.0 Blood Gas Specimen Source Blood arterial Blood Gas Temperature 37.0 Blood Gas Tidal Volume 500.0 FiO2 50.0 Oxyhemoglobin Percent 85.9 L Total Hemoglobin 13.2 Medications Medications Current Medications IV Flush 10 ml 10 ml PRN PRN IV IV PROTOCOL; Start 09/28/16 at 14:00 Propofol (Diprivan) 100 ml @ 0 mls/hr TITRATE PRN IV SEDATION Last administered on 09/30/16 02:37; Admin Dose 13.5 MLS/HR; Start 09/28/16 at 14:30 Ondansetron HCl (Zofran Inj) 4 mg Q6H PRN IV NAUSEA AND/OR VOMITING; Start at 15:00 Methylprednisolone Sodium Succinate (Solu-Medrol) 60 mg Q6 IV Last administered on 09/30/16 05:49; Admin Dose 60 MG; Start 09/28/16 at 18:00 Nitroglycerin (Nitroglycerin (Sl Tab) 0.4 Mg) 1 tab Q5M PRN SL CHEST PAIN; Start 09/28/16 at 15:00 Acetaminophen (Tylenol Liquid) 650 mg Q6H PRN PO PAIN LEVEL 1-3 OR FEVER; Start 09/28/16 at 15:00 Acetaminophen (Tylenol Tab) 650 mg Q6H PRN PO PAIN LEVEL 1-3 OR FEVER; Start at 15:00 Morphine Sulfate (morphine) 2 mg Q4H PRN IV PAIN LEVEL 7-10 Last administered on 09/29/16 02:30; Admin Dose 2 MG; Start 09/28/16 at 15:00 Lorazepam (Ativan) 1 mg Q2H PRN IV ANXIETY; Start 09/28/16 at 15:00 Docusate Sodium (Colace) 100 mg Q12H PRN PO CONSTIPATION; Start 09/28/16 at 15: 00 Famotidine (Pepcid) 20 mg Q12 PO Last administered on 09/30/16 09:39; Admin Dose 20 MG; Start 09/28/16 at 21:00 Enoxaparin Sodium (Lovenox) 40 mg DAILY SC Last administered on 09/30/16 09:45 ; Admin Dose 40 MG; Start 09/29/16 at 09:00 Aspirin (Aspirin) 81 mg DAILY PO Last administered on 09/30/16 09:40; Admin Dose 81 MG; Start 09/29/16 at 09:00 Atorvastatin Calcium (Lipitor) 10 mg QHS PO Last administered on 09/29/16 21: 00; Admin Dose 10 MG; Start 09/28/16 at 21:00 Clopidogrel Bisulfate (plaVIX) 75 mg DAILY PO Last administered on 09/30/16 09 :40; Admin Dose 75 MG; Start 09/29/16 at 09:00 Furosemide (Lasix) 40 mg DAILY PO Last administered on 09/30/16 09:39; Admin Dose 40 MG; Start 09/29/16 at 09:00 Lisinopril (Zestril) 5 mg DAILY PO Last administered on 09/30/16 09:40; Admin Dose 5 MG; Start 09/29/16 at 09:00 Metoprolol Succinate (Toprol Xl) 25 mg DAILY PO Last administered on 09/30/16 09:39; Admin Dose 25 MG; Start 09/29/16 at 09:00 Salmeterol Xinafoate/ Fluticasone (Advair 250/50 Diskus) 1 inh BID INH ; Start 09/28/16 at 21:00 Tiotropium [place] (Spiriva) 1 inh DAILY INH ; Start 09/28/16 at 16:00; Status Future Hold Hydralazine HCl 10 mg 10 mg Q6H PRN IV ELEVATED BLOOD PRESSURE; Start 09/28/16 at 16:00 Piperacillin Sod/ Tazobactam Sod 100 ml @ 200 mls/hr Q6 IVPB Last administered on 09/30/16 05:48; Admin Dose 200 MLS/HR; Start 09/29/16 at 14:35 Vancomycin HCl/ Sodium Chloride (Vancocin/NS) 250 ml @ 83.333 mls/ hr Q12H IVPB Last administered on 09/30/16 03:19; Admin Dose 83.333 MLS/HR; Start at 03:00 Mupirocin (Bactroban) 1 applic BID TOP ; Start 09/30/16 at 09:00 FUNMI MEZA MD Sep 30, 2016 11:46
[2016-09-30] MEDS: MUPIROCIN 2% 22 GM OINT TOP SCH ×2 (12:15→22:25)
[2016-09-30] MEDS: SALMETEROL/FLUTICASONE 250/50 INHA INH SCH (21:00)
[2016-09-30] MEDS: ATORVASTATIN 10 MG TAB PO SCH (22:25)
[2016-10-01] VITALS (58 sets, daily range): BP systolic 98–169; BP diastolic 68–106; PULSE 60–75; RESP 13–26
[2016-10-01] MEDS: METHYLPREDNISOLONE 125 MG INJ IV SCH ×2 (00:52→06:47)
[2016-10-01] MEDS: PIPER-TAZO 3.375 GM IV (PMX) 100 ML IVPB SCH ×3 (00:52→11:55)
[2016-10-01] MEDS: ALBUTEROL HFA 8 GM INHALER INH SCH ×4 (01:38→19:46)
[2016-10-01] MEDS: IPRATROPIUM (HFA) 12.9 GM INHALER INH SCH ×4 (01:38→19:46)
[2016-10-01] MEDS: VANCOMYCIN 1.5 GM in SOD CHLORIDE 0.9% 250 ML IVPB SCH (04:20)
[2016-10-01] MEDS: PROPOFOL 100 ML IV PRN ×7 (04:21→23:26)
[2016-10-01 05:07] LABS: HEMATOCRIT 34.4 % (42.0-52.0); HEMOGLOBIN 11.2 g/dl (14.0-18.0); LYMPHOCYTES # 0.1 10^3/ul (0.8-2.9); MEAN CORPUSCULAR HEMOGLOBIN 32.3 pg (29.0-33.0); MEAN CORPUSCULAR HGB CONC 32.7 g/dl (32.0-37.0); MEAN CORPUSCULAR VOLUME 98.8 fl (82.0-101.0); MEAN PLATELET VOLUME 6.9 fl (7.4-10.4); MONOCYTE # 0.3 10^3/ul (0.3-0.9); MONOCYTES % 4.6 % (0.0-11.0); NEUTROPHIL # 6.8 10^3/ul (1.6-7.5); NEUTROPHILS % 93.4 % (39.0-77.0); PLATELET COUNT 157 10^3/UL (140-440); RED BLOOD COUNT 3.48 10^6/ul (4.70-6.10); RED CELL DISTRIBUTION WIDTH 16.6 % (11.5-14.5); UNCORRECTED WBC 7.3 10^3/ul (4.8-10.8); WHITE BLOOD COUNT 7.3 10^3/ul (4.8-10.8)
[2016-10-01 05:27] LABS: POTASSIUM 3.8 mmol/L (3.5-5.1)
[2016-10-01 05:30] LABS: CALCIUM 8.5 mg/dl (8.4-10.2)
[2016-10-01 05:31] LABS: MAGNESIUM 2.3 mg/dl (1.7-2.5)
[2016-10-01 06:03] LABS: CONDITION 1; LH ANALYZER COMMENTS 1
[2016-10-01 06:10] LABS: CREATININE 0.68 mg/dl (0.61-1.24)
[2016-10-01] MEDS: CLOPIDOGREL 75 MG TAB PO SCH (09:15)
[2016-10-01] MEDS: ASPIRIN 81 MG TAB PO SCH (09:15)
[2016-10-01] MEDS: FAMOTIDINE 20 MG TAB PO SCH ×2 (09:16→20:12)
[2016-10-01] MEDS: LISINOPRIL 5 MG TAB PO SCH (09:16)
[2016-10-01] MEDS: METOPROLOL (XL) 25 MG TAB PO SCH (09:16)
[2016-10-01] MEDS: FUROSEMIDE 40 MG TAB PO SCH (09:16)
--- NOTE | 2016-10-01 09:16 | CONS ---
Date/Time of Note Date/Time of Note DATE: 10/01/16 TIME: 09:08 Assessment/Plan Assessment/Plan Additional Assessment/Plan Assessment and recommendations; 1. Patient admitted with recurrent respiratory failure due to COPD exacerbation and bilateral pneumonia. Next 2. Upon review of chest x-rays it appears patient does have chronic right lower lobe fibrotic changes. 3. Significant improvement in leukocytosis. 4. Mild CHF. Next 5. Recent right toe fracture foot in a cast. Next 6. Chronic hypoxemia, patient on high FiO2 in longterm. Patient also has chronic hypercarbia. Hospital sedation again to assess mental status when the patient is off sedative effect he will be evaluated for possible weaning from mechanical ventilation meanwhile Solu-Medrol dosing has been decreased to 40 mg every 6 hours. We will continue on current ventilator settings which is SIMV with rate of 14 tidal volume 500 PEEP of 5 pressure support and 30% FiO2. Tube feeding also has been put on hold in anticipation of possible extubation. Consultation Date/Type/Reason Admit Date/Time Sep 28, 2016 at 14:41 Initial Consult Date 09/28/16 24 HR Interval Summary Free Text/Dictation Patient's condition is critical but stable still requiring full ventilator support. Patient was given a sedation vacation yesterday morning also was tried on CPAP mode with patient could not handle that had to be reverted back to SIMV mode and re-sedated. General examination; elderly male or intubated sedated currently in no distress. Exam/Review of Systems Vital Signs Vitals Vital Signs Date Time Temp Pulse Resp B/P Pulse Ox O2 Delivery O2 Flow Rate FiO2 10/01/16 09:00 62 14 136/92 94 Mechanical Ventilator 10/01/16 08:00 98.5 10/01/16 05:05 60 09/28/16 09:22 2 Intake and Output 09/30/16 09/30/16 10/01/16 15:00 23:00 07:00 Intake Total 362.0 ml 698 ml 926 ml Output Total 1175 ml 500 ml 505 ml Balance -813.0 ml 198 ml 421 ml Exam HEENT examination; supple neck, no JVD, or intubated. Midsize pupils. No neck masses. No thyromegaly. Chest examination; diminished but clear breath sounds bilaterally. S1-S2 audible no murmurs. Next Abdomen examination; soft, nondistended, no organomegaly. Bowel sounds audible. Next Extremity examination; no peripheral edema. Right foot is in a cast. Pulses 1 + bilaterally. 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 She was given a sedation vacation yesterday morning and had excellent her neurological status. Results Result Diagram: 10/01/16 0430 10/01/16 0430 Results 24 hrs Laboratory Tests Test 10/01/16 02:20 10/01/16 04:30 Vancomycin Level Trough 11.1 Anion Gap 8 Basophils # 0.0 Basophils % 0.0 Blood Morphology Comment Blood Urea Nitrogen 34 H Calcium Level 8.5 Carbon Dioxide Level 41 *H Chloride Level 94 L Creatinine 0.68 Eosinophils # 0.0 Eosinophils % 0.0 Glucose Level 197 Hematocrit 34.4 L Hemoglobin 11.2 L Lymphocytes # 0.1 L Lymphocytes % 2.0 L Magnesium Level 2.3 Mean Corpuscular Hemoglobin 32.3 Mean Corpuscular Hemoglobin Concent 32.7 Mean Corpuscular Volume 98.8 Mean Platelet Volume 6.9 L Monocytes # 0.3 Monocytes % 4.6 Neutrophils # 6.8 Neutrophils % 93.4 H Nucleated Red Blood Cells # 0.0 Nucleated Red Blood Cells % 0.0 Platelet Count 157 Potassium Level 3.8 Red Blood Count 3.48 L Red Cell Distribution Width 16.6 H Sodium Level 139 White Blood Count 7.3 # Medications Medications Current Medications IV Flush 10 ml 10 ml PRN PRN IV IV PROTOCOL; Start 09/28/16 at 14:00 Propofol (Diprivan) 100 ml @ 0 mls/hr TITRATE PRN IV SEDATION Last administered on 10/01/16t 07:38; Admin Dose 16.2 MLS/HR; Start 09/28/16 at 14:30 Ondansetron HCl (Zofran Inj) 4 mg Q6H PRN IV NAUSEA AND/OR VOMITING; Start at 15:00 Nitroglycerin (Nitroglycerin (Sl Tab) 0.4 Mg) 1 tab Q5M PRN SL CHEST PAIN; Start 09/28/16 at 15:00 Acetaminophen (Tylenol Liquid) 650 mg Q6H PRN PO PAIN LEVEL 1-3 OR FEVER; Start 09/28/16 at 15:00 Acetaminophen (Tylenol Tab) 650 mg Q6H PRN PO PAIN LEVEL 1-3 OR FEVER; Start at 15:00 Morphine Sulfate (morphine) 2 mg Q4H PRN IV PAIN LEVEL 7-10 Last administered on 09/29/16 02:30; Admin Dose 2 MG; Start 09/28/16 at 15:00 Lorazepam (Ativan) 1 mg Q2H PRN IV ANXIETY; Start 09/28/16 at 15:00 Docusate Sodium (Colace) 100 mg Q12H PRN PO CONSTIPATION; Start 09/28/16 at 15: 00 Famotidine (Pepcid) 20 mg Q12 PO Last administered on 09/30/16 22:25; Admin Dose 20 MG; Start 09/28/16 at 21:00 Enoxaparin Sodium (Lovenox) 40 mg DAILY SC Last administered on 09/30/16 09:45 ; Admin Dose 40 MG; Start 09/29/16 at 09:00 Aspirin (Aspirin) 81 mg DAILY PO Last administered on 09/30/16 09:40; Admin Dose 81 MG; Start 09/29/16 at 09:00 Atorvastatin Calcium (Lipitor) 10 mg QHS PO Last administered on 09/30/16 22: 25; Admin Dose 10 MG; Start 09/28/16 at 21:00 Clopidogrel Bisulfate (plaVIX) 75 mg DAILY PO Last administered on 09/30/16 09 :40; Admin Dose 75 MG; Start 09/29/16 at 09:00 Furosemide (Lasix) 40 mg DAILY PO Last administered on 09/30/16 09:39; Admin Dose 40 MG; Start 09/29/16 at 09:00 Lisinopril (Zestril) 5 mg DAILY PO Last administered on 09/30/16 09:40; Admin Dose 5 MG; Start 09/29/16 at 09:00 Metoprolol Succinate (Toprol Xl) 25 mg DAILY PO Last administered on 09/30/16 09:39; Admin Dose 25 MG; Start 09/29/16 at 09:00 Tiotropium [place] (Spiriva) 1 inh DAILY INH ; Start 09/28/16 at 16:00; Status Future Hold Hydralazine HCl 10 mg 10 mg Q6H PRN IV ELEVATED BLOOD PRESSURE; Start 09/28/16 at 16:00 Piperacillin Sod/ Tazobactam Sod 100 ml @ 200 mls/hr Q6 IVPB Last administered on 10/01/16 07:38; Admin Dose 200 MLS/HR; Start 09/29/16 at 14:35 Vancomycin HCl/ Sodium Chloride (Vancocin/NS) 250 ml @ 83.333 mls/ hr Q12H IVPB Last administered on 10/01/16 04:20; Admin Dose 83.333 MLS/HR; Start at 03:00 Mupirocin (Bactroban) 1 applic BID TOP Last administered on 09/30/16 22:25; Admin Dose 1 APPLIC; Start 09/30/16 at 09:00 ROSE PÉREZ Oct 01, 2016 09:15
[2016-10-01] MEDS: MUPIROCIN 2% 22 GM OINT TOP SCH ×2 (09:17→20:13)
[2016-10-01] MEDS: ENOXAPARIN 40 MG/0.4 ML SYG SC SCH (09:18)
--- NOTE | 2016-10-01 09:46 | RADRPT ---
PROCEDURE: XR Chest. CLINICAL INDICATION: Shortness of breath. TECHNIQUE: Single AP portable chest COMPARISON: 09/30/2016 FINDINGS: The cardiac silhouette is enlarged but stable in size. Left chest pacemaker and support devices in s table position. . Bilateral pleural effusions and vascular congestion compatible with CHF. No pne umothorax. The osseous structures and soft tissues are unremarkable. IMPRESSION: Slight improvement in CHF compared to prior study. Support devices in stable position.. RPTAT:AAJJ Judy Powell Physician Date Time Electronically viewed and signed by Physician Carlos on 10/01/2016 09:45 JANAK/
[2016-10-01] MEDS: METHYLPREDNISOLONE 40 MG INJ IV SCH ×2 (11:55→18:11)
[2016-10-01 14:15] LABS: AADO2 Arterial 146.1 mmHg (7.0-24.0); Allen Test ACCEPTAB; Arterial Base Excess 11.1 mmol/L (-3.0-3); Arterial COHb 0.3 % (0.0-3.0); Arterial Fraction of Oxyhgb 88.1 % (93.0-99.0); Arterial HCO3 38.8 mmol/L (22.0-26.0); Arterial MetHb 0.2 % (0.0-1.5); Blood Gas PS 10; MODE VENT - CPAP
[2016-10-01] MEDS: IMIPENEM-CILAST 500 MG/NS 100 ML IVPB SCH ×2 (15:02→18:11)
--- NOTE | 2016-10-01 15:08 | PN ---
Date/Time of Note Date/Time of Note DATE: 10/01/16 TIME: 15:04 Assessment/Plan VTE Prophylaxis VTE Prophylaxis Intervention: LMWH Lines/Catheters IV Catheter Type (from Nrsg): PICC Line Central line still needed: Yes Urinary Cath still in place: Yes Reason Cath still needed: other (indicate) Assessment/Plan Assessment/Plan 1. facility acquired pneumonia, with ESBL E. Coli, and Lauren albicans, meropenem and diflucan 2. COPD exacerbation, neb, antibiotics, steroid 3. Acute respiratory failure, on vent, follow up with pulmonology 4. Congestive heart failure, systolic, chronic 5. Ischemic cardiomyopathy 6. CAD 7. SSS, s/p pacemaker 8. Essential hypertension. Will continue patient's home medication, metoprolol , Zestril. 9 9. Dyslipidemia. Continue statin. 10. DVT prophylaxis on Lovenox. 11. GI prophylaxis: pepcid Subjective 24 Hr Interval Summary Free Text/Dictation failed weaning this morning Exam/Review of Systems Vital Signs Vitals Vital Signs Date Time Temp Pulse Resp B/P Pulse Ox O2 Delivery O2 Flow Rate FiO2 10/01/16 13:30 66 15 155/106 95 10/01/16 13:00 Mechanical Ventilator 10/01/16 12:00 98.1 10/01/16 12:00 60 09/28/16 09:22 2 Intake and Output 09/30/16 09/30/16 10/01/16 15:00 23:00 07:00 Intake Total 362.0 ml 698 ml 926 ml Output Total 1175 ml 500 ml 505 ml Balance -813.0 ml 198 ml 421 ml Exam Constitutional: other (sedated) Head: atraumatic, normocephalic Eyes: EOMI, PERRL, nl conjunctiva, nl lids, nl sclera ENMT: intubated, nl external ears & nose, nl lips & teeth, nl nasal mucosa & septum Neck: non-tender, supple Respiratory: crackles/rales Cardiovascular: nl pulses, regular rate and rhythm, No S3, No S4, No bruits, No diastolic murmur, No edema, No gallop, No irregular rhythm, No jugular venous distention (JVD), No murmurs/extra sounds, No rub, No systolic murmur Gastrointestinal: nl liver, spleen, soft, No ascites, No bowel sounds, No distended, No firm, No hepatomegaly, No mass , No rebound or guarding, No splenomegaly, No surgical scars, No tender Musculoskeletal: nl extremities to inspection Extremities: normal pulses Neurological: other (sewdated and intubated) Skin: nl turgor, rash or lesions Lymph: nl lymph nodes Results Result Diagram: 10/01/16 0430 10/01/16 0430 Results 24 hrs Laboratory Tests Test 10/01/16 02:20 10/01/16 04:30 10/01/16 14:01 Vancomycin Level Trough 11.1 Anion Gap 8 Basophils # 0.0 Basophils % 0.0 Blood Morphology Comment Blood Urea Nitrogen 34 H Calcium Level 8.5 Carbon Dioxide Level 41 *H Chloride Level 94 L Creatinine 0.68 Eosinophils # 0.0 Eosinophils % 0.0 Glucose Level 197 Hematocrit 34.4 L Hemoglobin 11.2 L Lymphocytes # 0.1 L Lymphocytes % 2.0 L Magnesium Level 2.3 Mean Corpuscular Hemoglobin 32.3 Mean Corpuscular Hemoglobin Concent 32.7 Mean Corpuscular Volume 98.8 Mean Platelet Volume 6.9 L Monocytes # 0.3 Monocytes % 4.6 Neutrophils # 6.8 Neutrophils % 93.4 H Nucleated Red Blood Cells # 0.0 Nucleated Red Blood Cells % 0.0 Platelet Count 157 Potassium Level 3.8 Red Blood Count 3.48 L Red Cell Distribution Width 16.6 H Sodium Level 139 White Blood Count 7.3 # Arterial Blood HCO3 38.8 H Arterial Blood Base Excess 11.1 H Arterial Blood Oxygen Saturation 88.5 L Thomas Test ACCEPTAB Arterial Blood Gas Puncture Site Right Radial Arterial Blood Carboxyhemoglobin 0.3 Arterial Blood Date Drawn 10/01/2016 2:06:04 PM Arterial Blood Methemoglobin 0.2 Arterial Blood pCO2 (Temp correct) 66.7 H Arterial Blood pH (Temp corrected) 7.383 Arterial Blood pO2 (Temp corrected) 62.4 L Blood Gas A-a O2 Differential 146.1 H Blood Gas Actual Respiration Rate 21 Blood Gas High PEEP Setting 6.0 Blood Gas Modality VENT - CPAP Blood Gas Notified Time 10/01/2016 2:15:12 PM Blood Gas Notified Whom TM Blood Gas Pressure Support 10 Blood Gas Specimen Source Blood arterial Blood Gas Temperature 37.0 FiO2 40.0 Oxyhemoglobin Percent 88.1 L Total Hemoglobin 13.0 Medications Medications Current Medications IV Flush 10 ml 10 ml PRN PRN IV IV PROTOCOL; Start 09/28/16 at 14:00 Propofol (Diprivan) 100 ml @ 0 mls/hr TITRATE PRN IV SEDATION Last administered on 10/01/16 15:02; Admin Dose 16.2 MLS/HR; Start 09/28/16 at 14:30 Ondansetron HCl (Zofran Inj) 4 mg Q6H PRN IV NAUSEA AND/OR VOMITING; Start at 15:00 Nitroglycerin (Nitroglycerin (Sl Tab) 0.4 Mg) 1 tab Q5M PRN SL CHEST PAIN; Start 09/28/16 at 15:00 Acetaminophen (Tylenol Liquid) 650 mg Q6H PRN PO PAIN LEVEL 1-3 OR FEVER; Start 09/28/16 at 15:00 Acetaminophen (Tylenol Tab) 650 mg Q6H PRN PO PAIN LEVEL 1-3 OR FEVER; Start at 15:00 Morphine Sulfate (morphine) 2 mg Q4H PRN IV PAIN LEVEL 7-10 Last administered on 09/29/16 02:30; Admin Dose 2 MG; Start 09/28/16 at 15:00 Lorazepam (Ativan) 1 mg Q2H PRN IV ANXIETY; Start 09/28/16 at 15:00 Docusate Sodium (Colace) 100 mg Q12H PRN PO CONSTIPATION; Start 09/28/16 at 15: 00 Famotidine (Pepcid) 20 mg Q12 PO Last administered on 10/01/16 09:16; Admin Dose 20 MG; Start 09/28/16 at 21:00 Enoxaparin Sodium (Lovenox) 40 mg DAILY SC Last administered on 10/01/16 09:18 ; Admin Dose 40 MG; Start 09/29/16 at 09:00 Aspirin (Aspirin) 81 mg DAILY PO Last administered on 10/01/16 09:15; Admin Dose 81 MG; Start 09/29/16 at 09:00 Atorvastatin Calcium (Lipitor) 10 mg QHS PO Last administered on 09/30/16 22: 25; Admin Dose 10 MG; Start 09/28/16 at 21:00 Clopidogrel Bisulfate (plaVIX) 75 mg DAILY PO Last administered on 10/01/16 09 :15; Admin Dose 75 MG; Start 09/29/16 at 09:00 Furosemide (Lasix) 40 mg DAILY PO Last administered on 10/01/16 09:16; Admin Dose 40 MG; Start 09/29/16 at 09:00 Lisinopril (Zestril) 5 mg DAILY PO Last administered on 10/01/16 09:16; Admin Dose 5 MG; Start 09/29/16 at 09:00 Metoprolol Succinate (Toprol Xl) 25 mg DAILY PO Last administered on 10/01/16 09:16; Admin Dose 25 MG; Start 09/29/16 at 09:00 Tiotropium [place] (Spiriva) 1 inh DAILY INH ; Start 09/28/16 at 16:00; Status Future Hold Hydralazine HCl (Apresoline) 10 mg Q6H PRN IV ELEVATED BLOOD PRESSURE; Start at 16:00 Mupirocin (Bactroban) 1 applic BID TOP Last administered on 10/01/16 09:17; Admin Dose 1 APPLIC; Start 09/30/16 at 09:00 Methylprednisolone Sodium Succinate 40 mg 40 mg Q6 IV Last administered on 10/01 11:55; Admin Dose 40 MG; Start 10/01/16 at 12:00 Imipenem/ Cilastatin Sodium (Primaxin 500 Mg/ 100 ml (Pmx)) 100 ml @ 100 mls/ hr Q6 IVPB Last administered on 10/01/16 15:02; Admin Dose 100 MLS/HR; Start 10/01/16 at 14:30 FUNMI MEZA MD Oct 01, 2016 15:08
[2016-10-01 15:45] LABS: EOSINOPHILS % 0.1 % (0.0-7.0); HEMATOCRIT 34.6 % (42.0-52.0); HEMOGLOBIN 11.4 g/dl (14.0-18.0); LYMPHOCYTES # 0.2 10^3/ul (0.8-2.9); LYMPHOCYTES % 2.5 % (15.0-51.0); MEAN CORPUSCULAR HEMOGLOBIN 32.4 pg (29.0-33.0); MEAN CORPUSCULAR HGB CONC 33.1 g/dl (32.0-37.0); MEAN CORPUSCULAR VOLUME 97.9 fl (82.0-101.0); MEAN PLATELET VOLUME 6.8 fl (7.4-10.4); MONOCYTE # 0.2 10^3/ul (0.3-0.9); MONOCYTES % 3.8 % (0.0-11.0); NEUTROPHIL # 6.2 10^3/ul (1.6-7.5); NEUTROPHILS % 93.6 % (39.0-77.0); PLATELET COUNT 143 10^3/UL (140-440); RED BLOOD COUNT 3.54 10^6/ul (4.70-6.10); RED CELL DISTRIBUTION WIDTH 16.3 % (11.5-14.5); UNCORRECTED WBC 6.6 10^3/ul (4.8-10.8); WHITE BLOOD COUNT 6.6 10^3/ul (4.8-10.8)
[2016-10-01 15:50] LABS: CONDITION 1; LH ANALYZER COMMENTS 1
[2016-10-01] MEDS: FLUCONAZOLE 200 MG/NS (PMX) 100 ML IVPB SCH (16:49)
[2016-10-01] MEDS: ATORVASTATIN 10 MG TAB PO SCH (20:12)
[2016-10-02] VITALS (59 sets, daily range): BP systolic 96–155; BP diastolic 73–97; PULSE 60–71; RESP 13–19
[2016-10-02] MEDS: METHYLPREDNISOLONE 40 MG INJ IV SCH ×4 (00:50→17:43)
[2016-10-02] MEDS: IMIPENEM-CILAST 500 MG/NS 100 ML IVPB SCH ×4 (00:50→17:42)
[2016-10-02] MEDS: IPRATROPIUM (HFA) 12.9 GM INHALER INH SCH ×4 (01:27→19:01)
[2016-10-02] MEDS: ALBUTEROL HFA 8 GM INHALER INH SCH ×4 (01:28→19:01)
[2016-10-02] MEDS: PROPOFOL 100 ML IV PRN ×6 (01:45→22:51)
[2016-10-02 05:34] LABS: ALBUMIN 2.7 g/dl (3.3-4.9)
[2016-10-02 05:36] LABS: CREATININE 0.53 mg/dl (0.61-1.24)
[2016-10-02 05:37] LABS: ALBUMIN/GLOBULIN RATIO 1.12; BILIRUBIN,INDIRECT 0.5 mg/dl (0-1.1); BILIRUBIN,TOTAL 0.5 mg/dl (0.2-1.3); CALCIUM 8.2 mg/dl (8.4-10.2); TOTAL PROTEIN 5.1 g/dl (6.1-8.1)
[2016-10-02 05:38] LABS: MAGNESIUM 2.2 mg/dl (1.7-2.5)
--- NOTE | 2016-10-02 08:01 | CONS ---
Date/Time of Note Date/Time of Note DATE: 10/02/16 TIME: 07:56 Assessment/Plan Assessment/Plan Additional Assessment/Plan Assessment and recommendations; 1. Patient admitted with hypercapnic respiratory failure with acute bronchitis and possibly right lower lobe pneumonia. Chest x-ray findings are consistent with chronic right lower lobe changes. Next 2. Recurrent respiratory failure requiring recent recent intubation as well. Next 3. Failure to be weaned off from mechanical ventilation due to severe hyper and persistent hypercapnia. 4. Congestive heart failure, currently compensated. Next 5. Right toe fracture foot is in a cast. 6. History of cardiac arrhythmia currently in sinus rhythm. Continue current treatment at present, continue current ventilator settings are SIMV of 14 tidal volume of 500 pressure support and PEEP of 540% FiO2. This time I would recommend continuation of Solu-Medrol continue current antibiotics. Patient is on tube feeding. Another weaning trial will be attempted in 24 hours. Prognosis is guarded. The patient possibly may need to have a tracheostomy performed. Consultation Date/Type/Reason Admit Date/Time Sep 28, 2016 at 14:41 Initial Consult Date 09/28/16 24 HR Interval Summary Free Text/Dictation Patient's condition remains unchanged. Still requiring full ventilator support. He was given a sedation vacation yesterday he was completely awake alert and was put on CPAP for 20 minutes an ABG was performed after that which is again showing severe hypercapnia with decompensation, the patient therefore did not meet criteria for weaning from mechanical ventilation and was switched back to SIMV mode and re-sedated. He has remained hemodynamically stable. Exam/Review of Systems Vital Signs Vitals Vital Signs Date Time Temp Pulse Resp B/P Pulse Ox O2 Delivery O2 Flow Rate FiO2 10/02/16 07:00 65 14 114/83 93 10/02/16 06:30 Mechanical Ventilator 10/02/16 05:21 50 10/02/16 04:00 98.1 09/28/16 09:22 2 Intake and Output 10/01/16 10/01/16 10/02/16 15:00 23:00 07:00 Intake Total 442.9 ml 1046.3 ml 599 ml Output Total 1050 ml 595 ml 500 ml Balance -607.1 ml 451.3 ml 99 ml Exam HEENT examination; supple neck, no JVD, no lymphadenopathy, or intubated. Pupils are small bilaterally. Supple neck. No thyromegaly. No neck bruits. Chest examination; diminished breath sounds throughout. No wheezing. S1-S2 audible no murmurs regular rhythm. There is a pacemaker in the left chest wall. Abdomen examination; soft, nondistended, no organomegaly. Bowel sounds audible. Extremity examination; there is no peripheral edema, pulses 1+ bilaterally. Right foot is in a cast. 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 Results Result Diagram: 10/01/16 1535 10/02/16 0450 Results 24 hrs Laboratory Tests Test 10/01/16 14:01 10/01/16 15:35 10/02/16 04:50 Arterial Blood HCO3 38.8 H Arterial Blood Base Excess 11.1 H Arterial Blood Oxygen Saturation 88.5 L Thomas Test ACCEPTAB Arterial Blood Gas Puncture Site Right Radial Arterial Blood Carboxyhemoglobin 0.3 Arterial Blood Date Drawn 10/01/2016 2:06:04 PM Arterial Blood Methemoglobin 0.2 Arterial Blood pCO2 (Temp correct) 66.7 H Arterial Blood pH (Temp corrected) 7.383 Arterial Blood pO2 (Temp corrected) 62.4 L Blood Gas A-a O2 Differential 146.1 H Blood Gas Actual Respiration Rate 21 Blood Gas High PEEP Setting 6.0 Blood Gas Modality VENT - CPAP Blood Gas Notified Time 10/01/2016 2:15:12 PM Blood Gas Notified Whom TM Blood Gas Pressure Support 10 Blood Gas Specimen Source Blood arterial Blood Gas Temperature 37.0 FiO2 40.0 Oxyhemoglobin Percent 88.1 L Total Hemoglobin 13.0 Basophils # 0.0 Basophils % 0.0 Blood Morphology Comment Differential Comment AUTO w/SCAN Eosinophils # 0.0 Eosinophils % 0.1 Hematocrit 34.6 L Hemoglobin 11.4 L Lymphocytes # 0.2 L Lymphocytes % 2.5 L Mean Corpuscular Hemoglobin 32.4 Mean Corpuscular Hemoglobin Concent 33.1 Mean Corpuscular Volume 97.9 Mean Platelet Volume 6.8 L Monocytes # 0.2 L Monocytes % 3.8 Neutrophils # 6.2 Neutrophils % 93.6 H Nucleated Red Blood Cells # 0.0 Nucleated Red Blood Cells % 0.0 Platelet Count 143 Red Blood Count 3.54 L Red Cell Distribution Width 16.3 H White Blood Count 6.6 Alanine Aminotransferase (ALT/SGPT) 44 Albumin 2.7 L Albumin/Globulin Ratio 1.12 Alkaline Phosphatase 44 Anion Gap 12 Aspartate Amino Transf (AST/SGOT) 13 L Blood Urea Nitrogen 31 H Calcium Level 8.2 L Carbon Dioxide Level 35 H Chloride Level 92 L Creatinine 0.53 L Direct Bilirubin 0.00 Globulin 2.40 Glucose Level 165 Indirect Bilirubin 0.5 Magnesium Level 2.2 Potassium Level 4.0 Sodium Level 135 Total Bilirubin 0.5 Total Protein 5.1 L Medications Medications Current Medications IV Flush 10 ml 10 ml PRN PRN IV IV PROTOCOL; Start 09/28/16 at 14:00 Propofol (Diprivan) 100 ml @ 0 mls/hr TITRATE PRN IV SEDATION Last administered on 10/02/16 05:31; Admin Dose 27 MLS/HR; Start 09/28/16 at 14:30 Ondansetron HCl (Zofran Inj) 4 mg Q6H PRN IV NAUSEA AND/OR VOMITING; Start at 15:00 Nitroglycerin (Nitroglycerin (Sl Tab) 0.4 Mg) 1 tab Q5M PRN SL CHEST PAIN; Start 09/28/16 at 15:00 Acetaminophen (Tylenol Liquid) 650 mg Q6H PRN PO PAIN LEVEL 1-3 OR FEVER; Start 09/28/16 at 15:00 Acetaminophen (Tylenol Tab) 650 mg Q6H PRN PO PAIN LEVEL 1-3 OR FEVER; Start at 15:00 Morphine Sulfate (morphine) 2 mg Q4H PRN IV PAIN LEVEL 7-10 Last administered on 09/29/16 02:30; Admin Dose 2 MG; Start 09/28/16 at 15:00 Lorazepam (Ativan) 1 mg Q2H PRN IV ANXIETY; Start 09/28/16 at 15:00 Docusate Sodium (Colace) 100 mg Q12H PRN PO CONSTIPATION; Start 09/28/16 at 15: 00 Famotidine (Pepcid) 20 mg Q12 PO Last administered on 10/01/16 20:12; Admin Dose 20 MG; Start 09/28/16 at 21:00 Enoxaparin Sodium (Lovenox) 40 mg DAILY SC Last administered on 10/01/16 09:18 ; Admin Dose 40 MG; Start 09/29/16 at 09:00 Aspirin (Aspirin) 81 mg DAILY PO Last administered on 10/01/16 09:15; Admin Dose 81 MG; Start 09/29/16 at 09:00 Atorvastatin Calcium (Lipitor) 10 mg QHS PO Last administered on 10/01/16 20: 12; Admin Dose 10 MG; Start 09/28/16 at 21:00 Clopidogrel Bisulfate (plaVIX) 75 mg DAILY PO Last administered on 10/01/16 09 :15; Admin Dose 75 MG; Start 09/29/16 at 09:00 Furosemide (Lasix) 40 mg DAILY PO Last administered on 10/01/16 09:16; Admin Dose 40 MG; Start 09/29/16 at 09:00 Lisinopril (Zestril) 5 mg DAILY PO Last administered on 10/01/16 09:16; Admin Dose 5 MG; Start 09/29/16 at 09:00 Metoprolol Succinate (Toprol Xl) 25 mg DAILY PO Last administered on 10/01/16 09:16; Admin Dose 25 MG; Start 09/29/16 at 09:00 Tiotropium [place] (Spiriva) 1 inh DAILY INH ; Start 09/28/16 at 16:00; Status Future Hold Hydralazine HCl (Apresoline) 10 mg Q6H PRN IV ELEVATED BLOOD PRESSURE; Start at 16:00 Mupirocin (Bactroban) 1 applic BID TOP Last administered on 10/01/16 20:13; Admin Dose 1 APPLIC; Start 09/30/16 at 09:00 Methylprednisolone Sodium Succinate 40 mg 40 mg Q6 IV Last administered on 10/02 05:31; Admin Dose 40 MG; Start 10/01/16 at 12:00 Imipenem/ Cilastatin Sodium 100 ml @ 100 mls/hr Q6 IVPB Last administered on 05:31; Admin Dose 100 MLS/HR; Start 10/01/16 at 14:30 Fluconazole (Diflucan 200 Mg/ NS (Pmx)) 100 ml @ 100 mls/hr Q24H IVPB Last administered on 10/01/16 16:49; Admin Dose 100 MLS/HR; Start 10/01/16 at 15:30 ROSE PÉREZ Oct 02, 2016 08:01
--- NOTE | 2016-10-02 08:43 | RADRPT ---
PROCEDURE: XR Chest. CLINICAL INDICATION: Shortness of breath TECHNIQUE: Chest AP portable. COMPARISON: 10/01/2016 FINDINGS: Left-sided single lead AICD device. Nasogastric tube in the stomach. Right arm PICC line with tip at SVC / RA junction The mediastinal structures are unremarkable. There is calcification of the thoracic aorta (consiste nt with atherosclerosis). There is mild cardiomegaly. There is no change in the mild congestive he art failure. There are RLL and LLL patchy consolidations (edema/pneumonia). There are small bilate ral pleural effusions. There are senescent changes of the axial skeleton. IMPRESSION: Moderate cardiac enlargement. No change in mild congestive heart failure. No change in the RLL and LLL patchy consolidations (edema/pneumonia). Small bilateral pleural effusions. RPTAT: HGDB .Javier Mancilla MD, Date Time Electronically viewed and signed by .Javier Mancilla MD, on 10/02/2016 08:43 .B/
[2016-10-02] MEDS: FUROSEMIDE 40 MG TAB PO SCH (08:58)
[2016-10-02] MEDS: ASPIRIN 81 MG TAB PO SCH (08:58)
[2016-10-02] MEDS: METOPROLOL (XL) 25 MG TAB PO SCH (08:59)
[2016-10-02] MEDS: CLOPIDOGREL 75 MG TAB PO SCH (08:59)
[2016-10-02] MEDS: LISINOPRIL 5 MG TAB PO SCH (08:59)
[2016-10-02] MEDS: MUPIROCIN 2% 22 GM OINT TOP SCH ×2 (08:59→21:04)
[2016-10-02] MEDS: FAMOTIDINE 20 MG TAB PO SCH ×2 (08:59→21:04)
[2016-10-02] MEDS: ENOXAPARIN 40 MG/0.4 ML SYG SC SCH (09:01)
[2016-10-02 10:41] LABS: AADO2 Arterial 224.9 mmHg (7.0-24.0); Allen Test ACCEPTAB; Arterial Base Excess 8.8 mmol/L (-3.0-3); Arterial COHb 0.2 % (0.0-3.0); Arterial Fraction of Oxyhgb 93.2 % (93.0-99.0); Arterial HCO3 34.7 mmol/L (22.0-26.0); Arterial MetHb 0.1 % (0.0-1.5); Arterial Total Hemglobin 13.2 g/dl (12.0-18.0); Blood Gas PS 10; MODE VENT - SIMV
--- NOTE | 2016-10-02 14:26 | PN ---
Date/Time of Note Date/Time of Note DATE: 10/02/16 TIME: 14:22 Assessment/Plan VTE Prophylaxis VTE Prophylaxis Intervention: LMWH Lines/Catheters IV Catheter Type (from Nrsg): PICC Line Central line still needed: Yes Urinary Cath still in place: Yes Reason Cath still needed: other (indicate) Assessment/Plan Assessment/Plan 1. facility acquired pneumonia, with ESBL E. Coli, and Lauren albicans, meropenem and diflucan 2. COPD exacerbation, neb, antibiotics, steroid 3. Acute respiratory failure, on vent, follow up with pulmonology for waning 4. Congestive heart failure, systolic, chronic 5. Ischemic cardiomyopathy 6. CAD 7. SSS, s/p pacemaker 8. Essential hypertension. Will continue patient's home medication, metoprolol , Zestril. 9 9. Dyslipidemia. Continue statin. 10. DVT prophylaxis on Lovenox. 11. GI prophylaxis: pepcid Subjective 24 Hr Interval Summary Free Text/Dictation sedated on vent Exam/Review of Systems Vital Signs Vitals Vital Signs Date Time Temp Pulse Resp B/P Pulse Ox O2 Delivery O2 Flow Rate FiO2 10/02/16 13:30 66 14 132/85 97 10/02/16 13:00 Mechanical Ventilator 10/02/16 12:40 50 10/02/16 12:00 98.4 09/28/16 09:22 2 Intake and Output 10/01/16 10/01/16 10/02/16 15:00 23:00 07:00 Intake Total 442.9 ml 1046.3 ml 656 ml Output Total 1050 ml 595 ml 560 ml Balance -607.1 ml 451.3 ml 96 ml Exam Constitutional: non-verbal, other (sedated on vent) Head: atraumatic, normocephalic Eyes: EOMI, PERRL, nl conjunctiva, nl lids ENMT: intubated, nl external ears & nose, nl lips & teeth, nl nasal mucosa & septum Neck: non-tender, supple Respiratory: clear to auscultation, diminished breath sounds Cardiovascular: nl pulses, regular rate and rhythm, No S3, No S4, No bruits, No diastolic murmur, No edema, No gallop, No irregular rhythm, No jugular venous distention (JVD), No murmurs/extra sounds, No rub, No systolic murmur Gastrointestinal: nl liver, spleen, non-tender, soft, No ascites, No bowel sounds, No distended, No firm, No hepatomegaly, No mass , No rebound or guarding, No splenomegaly, No surgical scars, No tender Musculoskeletal: nl extremities to inspection Extremities: normal pulses, tenderness, No clubbing, No cyanosis, No edema, No palpable cord, No pitting pedal edema Neurological: BODS DEVELOPER II-XII intact, nl mental status, nl speech, nl strength, other (sedated), unresponsive Skin: nl turgor, rash or lesions Lymph: nl lymph nodes Results Result Diagram: 10/01/16 1535 10/02/16 0450 Results 24 hrs Laboratory Tests Test 10/01/16 15:35 10/02/16 04:50 10/02/16 08:00 Basophils # 0.0 Basophils % 0.0 Blood Morphology Comment Differential Comment AUTO w/SCAN Eosinophils # 0.0 Eosinophils % 0.1 Hematocrit 34.6 L Hemoglobin 11.4 L Lymphocytes # 0.2 L Lymphocytes % 2.5 L Mean Corpuscular Hemoglobin 32.4 Mean Corpuscular Hemoglobin Concent 33.1 Mean Corpuscular Volume 97.9 Mean Platelet Volume 6.8 L Monocytes # 0.2 L Monocytes % 3.8 Neutrophils # 6.2 Neutrophils % 93.6 H Nucleated Red Blood Cells # 0.0 Nucleated Red Blood Cells % 0.0 Platelet Count 143 Red Blood Count 3.54 L Red Cell Distribution Width 16.3 H White Blood Count 6.6 Alanine Aminotransferase (ALT/SGPT) 44 Albumin 2.7 L Albumin/Globulin Ratio 1.12 Alkaline Phosphatase 44 Anion Gap 12 Aspartate Amino Transf (AST/SGOT) 13 L Blood Urea Nitrogen 31 H Calcium Level 8.2 L Carbon Dioxide Level 35 H Chloride Level 92 L Creatinine 0.53 L Direct Bilirubin 0.00 Globulin 2.40 Glucose Level 165 Indirect Bilirubin 0.5 Magnesium Level 2.2 Potassium Level 4.0 Sodium Level 135 Total Bilirubin 0.5 Total Protein 5.1 L Arterial Blood HCO3 34.7 H Arterial Blood Base Excess 8.8 H Arterial Blood Oxygen Saturation 93.5 L Thomas Test ACCEPTAB Arterial Blood Gas Puncture Site Right Radial Arterial Blood Carboxyhemoglobin 0.2 Arterial Blood Date Drawn 10/02/2016 8:30:28 AM Arterial Blood Methemoglobin 0.1 Arterial Blood pCO2 (Temp correct) 53.3 H Arterial Blood pH (Temp corrected) 7.432 Arterial Blood pO2 (Temp corrected) 71.6 L Blood Gas A-a O2 Differential 224.9 H Blood Gas Actual Respiration Rate 14 Blood Gas Low PEEP Setting 6.0 Blood Gas Modality VENT - SIMV Blood Gas Notified Time 10/02/2016 8:41:14 AM Blood Gas Notified Whom TM Blood Gas Pressure Support 10 Blood Gas Respiration Rate 14.0 Blood Gas Specimen Source Blood arterial Blood Gas Temperature 37.0 Blood Gas Tidal Volume 500.0 FiO2 50.0 Oxyhemoglobin Percent 93.2 Total Hemoglobin 13.2 Medications Medications Current Medications IV Flush 10 ml 10 ml PRN PRN IV IV PROTOCOL; Start 09/28/16 at 14:00 Propofol (Diprivan) 100 ml @ 0 mls/hr TITRATE PRN IV SEDATION Last administered on 10/02/16 13:55; Admin Dose 27 MLS/HR; Start 09/28/16 at 14:30 Ondansetron HCl (Zofran Inj) 4 mg Q6H PRN IV NAUSEA AND/OR VOMITING; Start at 15:00 Nitroglycerin (Nitroglycerin (Sl Tab) 0.4 Mg) 1 tab Q5M PRN SL CHEST PAIN; Start 09/28/16 at 15:00 Acetaminophen (Tylenol Liquid) 650 mg Q6H PRN PO PAIN LEVEL 1-3 OR FEVER; Start 09/28/16 at 15:00 Acetaminophen (Tylenol Tab) 650 mg Q6H PRN PO PAIN LEVEL 1-3 OR FEVER; Start at 15:00 Morphine Sulfate (morphine) 2 mg Q4H PRN IV PAIN LEVEL 7-10 Last administered on 09/29/16 02:30; Admin Dose 2 MG; Start 09/28/16 at 15:00 Lorazepam (Ativan) 1 mg Q2H PRN IV ANXIETY; Start 09/28/16 at 15:00 Docusate Sodium (Colace) 100 mg Q12H PRN PO CONSTIPATION; Start 09/28/16 at 15: 00 Famotidine (Pepcid) 20 mg Q12 PO Last administered on 10/02/16 08:59; Admin Dose 20 MG; Start 09/28/16 at 21:00 Enoxaparin Sodium (Lovenox) 40 mg DAILY SC Last administered on 10/02/16 09:01 ; Admin Dose 40 MG; Start 09/29/16 at 09:00 Aspirin (Aspirin) 81 mg DAILY PO Last administered on 10/02/16 08:58; Admin Dose 81 MG; Start 09/29/16 at 09:00 Atorvastatin Calcium (Lipitor) 10 mg QHS PO Last administered on 10/01/16 20: 12; Admin Dose 10 MG; Start 09/28/16 at 21:00 Clopidogrel Bisulfate (plaVIX) 75 mg DAILY PO Last administered on 10/02/16 08 :59; Admin Dose 75 MG; Start 09/29/16 at 09:00 Furosemide (Lasix) 40 mg DAILY PO Last administered on 10/02/16 08:58; Admin Dose 40 MG; Start 09/29/16 at 09:00 Lisinopril (Zestril) 5 mg DAILY PO Last administered on 10/02/16 08:59; Admin Dose 5 MG; Start 09/29/16 at 09:00 Metoprolol Succinate (Toprol Xl) 25 mg DAILY PO Last administered on 10/02/16 08:59; Admin Dose 25 MG; Start 09/29/16 at 09:00 Tiotropium Rogers (Spiriva) 1 inh DAILY INH ; Start 09/28/16 at 16:00; Status Future Hold Hydralazine HCl (Apresoline) 10 mg Q6H PRN IV ELEVATED BLOOD PRESSURE; Start at 16:00 Mupirocin (Bactroban) 1 applic BID TOP Last administered on 10/02/16 08:59; Admin Dose 1 APPLIC; Start 09/30/16 at 09:00 Methylprednisolone Sodium Succinate 40 mg 40 mg Q6 IV Last administered on 10/02 12:35; Admin Dose 40 MG; Start 10/01/16 at 12:00 Imipenem/ Cilastatin Sodium 100 ml @ 100 mls/hr Q6 IVPB Last administered on 12:35; Admin Dose 100 MLS/HR; Start 10/01/16 at 14:30 Fluconazole (Diflucan 200 Mg/ NS (Pmx)) 100 ml @ 100 mls/hr Q24H IVPB Last administered on 10/01/16 16:49; Admin Dose 100 MLS/HR; Start 1/26/17 at 15:30 FUNMI MEZA MD Oct 02, 2016 14:26
--- NOTE | 2016-10-02 15:05 | PN ---
DATE: PALLIATIVE CARE PROGRESS NOTE AND FAMILY CONFERENCE I have had a conference with the patient's mother. She has given me a past medical history of Mr. Jasmin jha having multiple hospitalizations for the same exacerbation of COPD. In terms of his current so cial situation, he lives with 3 other people. He still continues to discontinue his use of oxygen o n occasion, but mother states that he does not smoke. "He doesn't listen to anybody." This has bee n ongoing problems since he was young as mother states. We covered his current medical conditions a nd his short-term and long-term prognosis. There are 2 children that the patient has and a grandchi ld. There are no other siblings. One sibling . Father is . I have asked them to spea k amongst themselves, because there may be a time where they will have to make painful decisions on behalf of Mr. Nuñez. However, in the meantime, I told them I will address his ongoing level of care , reintubation and ascertained from him whether or not he would want to have reintubation in the fut ure if he has some catastrophic illness which he certainly will eventually. I made his mother very aware that also she is very pragmatic and has come to peace with that. Dictated By: ARJUN ROJAS MD for ADONIS RICHARDSON MD, LP/NANDO Conf#: [id number] DID#: [id number]
--- NOTE | 2016-10-02 15:20 | PN ---
DATE: 10/02/2016 PALLIATIVE CARE PROGRESS NOTE Mr. Nuñez failed extubation yesterday, October 01. He is still vented and still on sedation. His mo ther is not at the bedside. When he is more stable, and probably after extubation I ill address the question on reintubation once again. After speaking with his mother yesterday she was very sure karson t he would want to have everything done including tracheostomy. Dictated By: ARJUN ROJAS MD, LP/NANDO Conf#: [id number] DID#: [id number]
[2016-10-02] MEDS: FLUCONAZOLE 200 MG/NS (PMX) 100 ML IVPB SCH (15:47)
--- NOTE | 2016-10-02 17:49 | CONS ---
DATE OF ADMISSION: 09/28/2016 DATE OF CONSULTATION: 10/02/2016 TYPE OF CONSULTATION: Infectious Disease. REASON FOR CONSULTATION: Antibiotic management. HISTORY OF PRESENT ILLNESS: James Nuñez is a 66-year-old male with a number of problems who comes i n with shortness of breath and is being seen for antibiotic management. His past problems include: 1. History of ischemic cardiomyopathy. 2. Ejection fraction of 25%. 3. Coronary artery disease. 4. Hypertension. 5. Dyslipidemia. 6. COPD. 7. Congestive heart failure. 8. Sick sinus syndrome status post pacemaker placement. 9. Atrial fibrillation. The patient was found to have increased shortness of breath at his halfway facility. He was brought to the emergency room where his O2 sat was 69%. The patient was intubated in the emergency room. He has an NG tube at this point as well and a Pruett catheter. He was placed on propofol. O n admission, he was found to have pneumonia and was placed on cefepime and Levaquin. His white coun t on admission was 21.2, H and H 12.4 and 39.2, platelet count 285,000. His white count now is 6.6. MICROBIOLOGY: Sputum is growing E. coli ESBL, Lauren albicans, and normal marcela. The E. coli is s ensitive to cefepime. As noted, the patient was on cefepime; however, he has a carbapenemase Klebsi anayeli pneumoniae that is multidrug resistant but is sensitive to imipenem, so it cannot be truly carb apenemase. The patient was switched to imipenem. Chest x-ray currently shows that he has a left-si ded lead AICD. He has an ET tube, NG tube, PICC line in the right arm. He has right lower lobe and left lower lobe patchy consolidations consistent with edema and pneumonia, small bilateral pleural effusions. There are significant changes in the axial skeleton, moderate cardiac enlargement, no ch aureliano in congestive heart failure, small bilateral pleural effusions. He was seen by Dr. Yousif as well for I guess ethical care with regard to his overall condition, and it was felt that he would n ot have wanted to be intubated had he been asked. PAST MEDICAL HISTORY: Operations as outlined. FAMILY HISTORY: Noncontributory. SOCIAL HISTORY: Positive for smoking. Does not drink or abuse drugs. ALLERGIES: NONE TO PENICILLIN, SULFA, OR FOODS. MEDICATIONS: Per chart. REVIEW OF SYSTEMS: As per HPI. PHYSICAL EXAMINATION: GENERAL: The patient is a well-developed, well-nourished male who is sedated on a respirator, ET tu be, NG tube, Pruett catheter, PICC line. SKIN: Without generalized rash. HEENT: Within normal limits. NECK: Supple. LYMPH NODES: None palpable. CHEST: Decreased breath sounds at the bases. HEART: Without murmur or gallop. ABDOMEN: Soft, nontender, without organosplenomegaly or masses. EXTREMITIES: Without cyanosis, clubbing, or edema. The right lower extremity is in a cast. RECTAL AND GENITAL: Deferred. NEUROLOGIC: The patient is sedated. IMPRESSION AND PLAN: Continue patient on fluconazole and imipenem for the E. coli ESBL, for the Kle bsiella pneumoniae, and for the yeast in the sputum which is probably colonization. I will dictate my findings to the hospitalist. Dictated By: ASAD ARTEAGA MD, JD/NANDO Conf#: [id number] DID#: [id number]
[2016-10-02] MEDS: ATORVASTATIN 10 MG TAB PO SCH (21:04)
[2016-10-03] VITALS (41 sets, daily range): BP systolic 100–161; BP diastolic 71–119; PULSE 60–142; RESP 14–34
[2016-10-03] MEDS: METHYLPREDNISOLONE 40 MG INJ IV SCH ×5 (00:02→23:35)
[2016-10-03] MEDS: IMIPENEM-CILAST 500 MG/NS 100 ML IVPB SCH ×5 (00:02→23:35)
[2016-10-03] MEDS: IPRATROPIUM (HFA) 12.9 GM INHALER INH SCH ×2 (01:39→08:01)
[2016-10-03] MEDS: ALBUTEROL HFA 8 GM INHALER INH SCH ×2 (01:40→08:01)
[2016-10-03] MEDS: PROPOFOL 100 ML IV PRN ×2 (02:16→05:15)
[2016-10-03] MEDS: LISINOPRIL 5 MG TAB PO SCH (08:31)
[2016-10-03] MEDS: ASPIRIN 81 MG TAB PO SCH (08:31)
[2016-10-03] MEDS: CLOPIDOGREL 75 MG TAB PO SCH (08:31)
[2016-10-03] MEDS: METOPROLOL (XL) 25 MG TAB PO SCH (08:32)
[2016-10-03] MEDS: FUROSEMIDE 40 MG TAB PO SCH (08:32)
[2016-10-03] MEDS: FAMOTIDINE 20 MG TAB PO SCH ×2 (08:32→21:27)
[2016-10-03] MEDS: ENOXAPARIN 40 MG/0.4 ML SYG SC SCH (08:37)
--- NOTE | 2016-10-03 09:08 | RADRPT ---
PROCEDURE: XR Chest. CLINICAL INDICATION: COPD exacerbation. TECHNIQUE: A single AP portable chest COMPARISON: None. FINDINGS: The cardiac silhouette is mildly enlarged. Left chest pacemaker, endotracheal and NG tube in place. Stable position of right PICC line catheter. The distal tip of the endotracheal tube resides 6.7 cm of the mich. Dual chamber left chest pacemaker in place. . Stable vascular congestion and hailey ateral pleural effusions compatible with CHF. No pneumothorax. The osseous structures and soft tis sues are unremarkable. IMPRESSION: 1. Stable CHF. Support devices in stable position.. RPTAT:AAJJ Physician Carlos Date Time Electronically viewed and signed by Physician Carlos on 10/03/2016 09:07 JANAK/
[2016-10-03] MEDS: MUPIROCIN 2% 22 GM OINT TOP SCH ×2 (09:55→21:00)
--- NOTE | 2016-10-03 10:00 | CONS ---
Date/Time of Note Date/Time of Note DATE: 10/03/16 TIME: 10:00 Assessment/Plan Assessment/Plan Chief Complaint/Hosp Course D PROGRESS NOTE TOTAL ABX DAY #6 => Primaxin #3, Diflucan #3 s/p Vanco, Levaquin, Cefepime 24H INTERVAL SUMMARY * A/A/O -> Extubated w/productive cough * OOB-> Bedside commode with assistance today, doing well, no fevers, VSS URINE CULTURE Final Organism 1 KLEB PNEUMONIAE CARBAPENEMASE COLONY COUNT >100,000 CFU/ml . MULTI DRUG RESISTANT ORGANISM KLEB PNEUM M.I.C. RX --------- --- AMIKACIN R CEFAZOLIN R CEFEPIME R CEFOTAXIME R CEFTAZIDIME >=64 R CIPROFLOXACIN >=4 R GENTAMICIN 8 I IMIPENEM 8 S LEVOFLOXACIN >=8 R NITROFURANTOIN 256 S TOBRAMYCIN >=16 R TRIMETHOPRIM/SULFAMETHOXAZOLE >=320 R PIPERACILLIN/TAZOBACTAM >=128 R PHYSICAL EXAMINATION: GENERAL: 66 yo -- OOB-> Bedside commode doing well HEENT: Unremarkable NECK: Supple, trachea midline. CHEST: Equal chest rise bilaterally HEART: Pulse RRR ABDOMEN: Soft EXTREMITIES: Warm SKIN: See photos ID ASSESSMENT: 66 yo M admit with: 1. Sepsis on admission w/(+)Lactic acidosis, leukocytosis, low grade temps = resolving 2. Complicated GNR MDRO = KP(CRKP) UTI 3. Acute hypoxic respiratory failure 4. Aspiration Pneumonia= E.coli/ESBL RESPIRATORY CULTURE Final Organism 1 ESCHERICHIA COLI (ESBL) = QUANTITY SCANT GROWTH Organism 2 VERNON ALBICANS = QUANTITY 1+ 5. Acute exacerbation/Chronic COPD = On Solu-Medrol 6. Acute exacerbation CHF on chronic ischemic cardiomyopathy with ejection fraction 25%. 7. Essential HTN 8. Dyslipidemia. 9. Oral Candidiasis (+ )MRSA Nares ->Bactroban INVASIVES: ABX ALLERGY: KNDA CURRENT ABX: TOTAL ABX DAY #6 => Primaxin #3, Diflucan #3 s/p Vanco, Levaquin, Cefepime ID RECOMMENDATIONS: 1. Continue Primaxin total 7-10 days per clinical improvement 2. Diflucan for candidiasis 3. Aspiration precautions post extubation/pulmonary toilet . . Problems: Consultation Date/Type/Reason Admit Date/Time Sep 28, 2016 at 14:41 Initial Consult Date 09/28/16 Exam/Review of Systems Vital Signs Vitals Vital Signs Date Time Temp Pulse Resp B/P Pulse Ox O2 Delivery O2 Flow Rate FiO2 10/03/16 08:53 35 10/03/16 08:00 66 10/03/16 08:00 18 117/81 83 Mechanical Ventilator 10/03/16 07:00 98.4 Intake and Output 10/02/16 10/02/16 10/03/16 15:00 23:00 07:00 Intake Total 869 ml 816 ml 789 ml Output Total 1090 ml 545 ml 330 ml Balance -221 ml 271 ml 459 ml Results Result Diagram: 10/01/16 1535 10/02/16 0450 Medications Medications Current Medications IV Flush 10 ml 10 ml PRN PRN IV IV PROTOCOL; Start 09/28/16 at 14:00 Propofol (Diprivan) 100 ml @ 0 mls/hr TITRATE PRN IV SEDATION Last administered on 10/03/16 05:15; Admin Dose 27 MLS/HR; Start 09/28/16 at 14:30 Ondansetron HCl (Zofran Inj) 4 mg Q6H PRN IV NAUSEA AND/OR VOMITING; Start at 15:00 Nitroglycerin (Nitroglycerin (Sl Tab) 0.4 Mg) 1 tab Q5M PRN SL CHEST PAIN; Start 09/28/16 at 15:00 Acetaminophen (Tylenol Liquid) 650 mg Q6H PRN PO PAIN LEVEL 1-3 OR FEVER; Start 09/28/16 at 15:00 Acetaminophen (Tylenol Tab) 650 mg Q6H PRN PO PAIN LEVEL 1-3 OR FEVER; Start at 15:00 Morphine Sulfate (morphine) 2 mg Q4H PRN IV PAIN LEVEL 7-10 Last administered on 09/29/16 02:30; Admin Dose 2 MG; Start 09/28/16 at 15:00 Lorazepam (Ativan) 1 mg Q2H PRN IV ANXIETY; Start 09/28/16 at 15:00 Docusate Sodium (Colace) 100 mg Q12H PRN PO CONSTIPATION; Start 09/28/16 at 15: 00 Famotidine (Pepcid) 20 mg Q12 PO Last administered on 10/03/16 08:32; Admin Dose 20 MG; Start 09/28/16 at 21:00 Enoxaparin Sodium (Lovenox) 40 mg DAILY SC Last administered on 10/03/16 08:37 ; Admin Dose 40 MG; Start 09/29/16 at 09:00 Aspirin (Aspirin) 81 mg DAILY PO Last administered on 10/03/16 08:31; Admin Dose 81 MG; Start 09/29/16 at 09:00 Atorvastatin Calcium (Lipitor) 10 mg QHS PO Last administered on 10/02/16 21: 04; Admin Dose 10 MG; Start 09/28/16 at 21:00 Clopidogrel Bisulfate (plaVIX) 75 mg DAILY PO Last administered on 10/03/16 08 :31; Admin Dose 75 MG; Start 09/29/16 at 09:00 Furosemide (Lasix) 40 mg DAILY PO Last administered on 10/03/16 08:32; Admin Dose 40 MG; Start 09/29/16 at 09:00 Lisinopril (Zestril) 5 mg DAILY PO Last administered on 10/03/16 08:31; Admin Dose 5 MG; Start 09/29/16 at 09:00 Metoprolol Succinate (Toprol Xl) 25 mg DAILY PO Last administered on 10/03/16 08:32; Admin Dose 25 MG; Start 09/29/16 at 09:00 Tiotropium Amery (Spiriva) 1 inh DAILY INH ; Start 09/28/16 at 16:00; Status Future Hold Hydralazine HCl (Apresoline) 10 mg Q6H PRN IV ELEVATED BLOOD PRESSURE; Start at 16:00 Mupirocin (Bactroban) 1 applic BID TOP Last administered on 10/03/16 09:55; Admin Dose 1 APPLIC; Start 09/30/16 at 09:00 Methylprednisolone Sodium Succinate 40 mg 40 mg Q6 IV Last administered on 10/03 05:24; Admin Dose 40 MG; Start 10/01/16 at 12:00 Imipenem/ Cilastatin Sodium 100 ml @ 100 mls/hr Q6 IVPB Last administered on 05:24; Admin Dose 100 MLS/HR; Start 10/01/16 at 14:30 Fluconazole (Diflucan 200 Mg/ NS (Pmx)) 100 ml @ 100 mls/hr Q24H IVPB Last administered on 10/02/16 15:47; Admin Dose 100 MLS/HR; Start 10/01/16 at 15:30 UNIQUE KIRKLAND NP Oct 03, 2016 10:00
--- NOTE | 2016-10-03 10:12 | PN ---
DATE: 10/03/2016 TIME OF EVALUATION: 9:00 a.m. SUBJECTIVE DATA: The patient is on a CPAP trial now. Awake and alert. Denies any pain. OBJECTIVE DATA: VITAL SIGNS: Temperature 98.4, pulse rate 61, respiratory rate 18, blood pressure 117/81, oxygen saturation 95% on 35% FIO2 via mechanical ventilator. GENERAL: This is a frail-looking 56-year-old male patient, lying in bed, orally intubated and mechanically ventilated. HEENT: Head normocephalic and atraumatic. Eyes, anicteric sclerae. Conjunctivae are clear. ENT: Nasal septum is midline. Oral mucosa is dry. NECK: Supple. No JVD noticed. RESPIRATORY: Bilaterally diminished breath sounds. Orally intubated and connected to a mechanical ventilator. CARDIAC: S1, S2 heard. Regular rate and rhythm. ABDOMEN: Soft, nontender and nondistended. Bowel sounds are positive in all 4 quadrants. GENITOURINARY: Deferred. EXTREMITIES: No cyanosis. Clubbing of bilateral upper digits. Bilateral lower extremity edema. Right lower extremity, a plaster cast in place. NEUROLOGIC: The patient is intubated. The patient is awake and alert. LABORATORY AND DIAGNOSTIC DATA: WBC 6.6, hemoglobin 11.4, hematocrit 34.6, platelet count 143. Sodium 137, potassium 4.0, chloride 92, carbon dioxide 35, anion gap 12, BUN 31, creatinine 0.53, glucose 165, calcium 8.2, magnesium 2.2. ASSESSMENT AND PLAN: 1. Acute on chronic hypoxic and hypercapnic respiratory failure secondary to chronic obstructive pulmonary disease exacerbation. Continue inhaled bronchodilators and tapering dose of steroids. Ventilator weaning as per pulmonary. 2. Healthcare-associated pneumonia. Sputum culture positive for extended spectrum beta-Lactamases and Lauren albicans. Continue antibiotics as per infectious disease. The patient has no evidence of any septic shock. 3. Urinary tract infection with Klebsiella pneumoniae carbapenemase. Continue antibiotics as per infectious disease. 4. Congestive heart failure exacerbation. Acute on chronic systolic and diastolic dysfunction. Continue diuretics. 5. Ischemic cardiomyopathy, status post automatic implantable cardioverter- defibrillator placement. Continue ZEB inhibitors and beta blockers. 6. Coronary artery disease, status post coronary artery stenting. Continue dual antiplatelet therapy. 7. Essential hypertension. Continue antihypertensives. 8. Dyslipidemia. Continue statins. 9. Right foot fracture. Continue plaster cast. 10. Fluid, electrolytes and nutrition. The patient is currently n.p.o. On a weaning trial. 11. Deep venous thrombosis prophylaxis. Continue subcutaneous Lovenox. 12. Gastrointestinal prophylaxis. Histamine 2 receptor blockers. PLAN: Continue ventilator weaning as per pulmonary. Continue antibiotics as per infectious disease. Case was discussed with Dr. Fry. Critical care time was 35 minutes. SOHA FRY MD, AM/NANDO Conf#: [id number] DID#: [id number] MTDD
[2016-10-03 10:55] LABS: AADO2 Arterial 107.4 mmHg (7.0-24.0); Allen Test ACCEPTAB; Arterial Base Excess 7.4 mmol/L (-3.0-3); Arterial COHb 0.3 % (0.0-3.0); Arterial Fraction of Oxyhgb 88.2 % (93.0-99.0); Arterial HCO3 35.6 mmol/L (22.0-26.0); Arterial MetHb 0.3 % (0.0-1.5); Arterial Total Hemglobin 13.4 g/dl (12.0-18.0); Blood Gas PS 10; MODE VENT - CPAP
[2016-10-03] MEDS: ALBUTEROL/IPRATROPIUM (NEB) 3 ML AMP HHN SCH ×2 (14:25→20:08)
[2016-10-03] MEDS: FLUCONAZOLE 200 MG/NS (PMX) 100 ML IVPB SCH (15:32)
--- NOTE | 2016-10-03 17:06 | CONS ---
Date/Time of Note Date/Time of Note DATE: 10/03/16 TIME: 17:04 Consult Date/Type/Reason Admit Date/Time Sep 28, 2016 at 14:41 Initial Consult Date 09/28/16 Type of Consultation: Pulm Subjective Doing well on CPAP with PS. Objective Vital Signs Date Time Temp Pulse Resp B/P Pulse Ox O2 Delivery O2 Flow Rate FiO2 10/03/16 16:00 73 10/03/16 16:00 98.5 23 142/81 94 Nasal Cannula 2.0 10/03/16 11:10 35 Intake and Output 10/02/16 10/02/16 10/03/16 15:00 23:00 07:00 Intake Total 869 ml 816 ml 789 ml Output Total 1090 ml 545 ml 330 ml Balance -221 ml 271 ml 459 ml NECK: Supple. No JVD noticed. RESPIRATORY: Bilaterally diminished breath sounds. Orally intubated and connected to a mechanical ventilator. CARDIAC: S1, S2 heard. Regular rate and rhythm. ABDOMEN: Soft, nontender and nondistended. Bowel sounds are positive in all 4 quadrants. EXT: plaster on lower extremity Results/Medications Result Diagram: 10/01/16 1535 10/02/16 0450 Results 24 hrs Laboratory Tests Test 10/03/16 09:30 10/03/16 09:52 Arterial Blood HCO3 35.6 H Arterial Blood Base Excess 7.4 H Arterial Blood Oxygen Saturation 88.7 L Thomas Test ACCEPTAB Arterial Blood Gas Puncture Site Right Radial Arterial Blood Carboxyhemoglobin 0.3 Arterial Blood Date Drawn 10/03/2016 10:44:25 AM Arterial Blood Methemoglobin 0.3 Arterial Blood pCO2 (Temp correct) 68.0 H Arterial Blood pH (Temp corrected) 7.337 L Arterial Blood pO2 (Temp corrected) 63.1 L Blood Gas A-a O2 Differential 107.4 H Blood Gas Actual Respiration Rate 27 Blood Gas Low PEEP Setting 5.0 Blood Gas Modality VENT - CPAP Blood Gas Notified Time 10/03/2016 10:55:30 AM Blood Gas Notified Whom AT Blood Gas Pressure Support 10 Blood Gas Specimen Source Blood arterial Blood Gas Temperature 37.0 FiO2 35.0 Oxyhemoglobin Percent 88.2 L Total Hemoglobin 13.4 Hemoglobin A1c 6.6 H Medications Current Medications IV Flush (NS 10 ml) 10 ml PRN PRN IV IV PROTOCOL; Start 09/28/16 at 14:00 Ondansetron HCl (Zofran Inj) 4 mg Q6H PRN IV NAUSEA AND/OR VOMITING; Start at 15:00 Nitroglycerin (Nitroglycerin (Sl Tab) 0.4 Mg) 1 tab Q5M PRN SL CHEST PAIN; Start 09/28/16 at 15:00 Acetaminophen (Tylenol Liquid) 650 mg Q6H PRN PO PAIN LEVEL 1-3 OR FEVER; Start 09/28/16 at 15:00 Acetaminophen (Tylenol Tab) 650 mg Q6H PRN PO PAIN LEVEL 1-3 OR FEVER; Start at 15:00 Morphine Sulfate (morphine) 2 mg Q4H PRN IV PAIN LEVEL 7-10 Last administered on 09/29/16 02:30; Admin Dose 2 MG; Start 09/28/16 at 15:00 Lorazepam (Ativan) 1 mg Q2H PRN IV ANXIETY; Start 09/28/16 at 15:00 Docusate Sodium (Colace) 100 mg Q12H PRN PO CONSTIPATION; Start 09/28/16 at 15: 00 Famotidine (Pepcid) 20 mg Q12 PO Last administered on 10/03/16 08:32; Admin Dose 20 MG; Start 09/28/16 at 21:00 Enoxaparin Sodium (Lovenox) 40 mg DAILY SC Last administered on 10/03/16 08:37 ; Admin Dose 40 MG; Start 09/29/16 at 09:00 Aspirin (Aspirin) 81 mg DAILY PO Last administered on 10/03/16 08:31; Admin Dose 81 MG; Start 09/29/16 at 09:00 Atorvastatin Calcium (Lipitor) 10 mg QHS PO Last administered on 10/02/16 21: 04; Admin Dose 10 MG; Start 09/28/16 at 21:00 Clopidogrel Bisulfate (plaVIX) 75 mg DAILY PO Last administered on 10/03/16 08 :31; Admin Dose 75 MG; Start 09/29/16 at 09:00 Furosemide (Lasix) 40 mg DAILY PO Last administered on 10/03/16 08:32; Admin Dose 40 MG; Start 09/29/16 at 09:00 Lisinopril (Zestril) 5 mg DAILY PO Last administered on 10/03/16 08:31; Admin Dose 5 MG; Start 09/29/16 at 09:00 Metoprolol Succinate (Toprol Xl) 25 mg DAILY PO Last administered on 10/03/16 08:32; Admin Dose 25 MG; Start 09/29/16 at 09:00 Tiotropium [place] (Spiriva) 1 inh DAILY INH ; Start 09/28/16 at 16:00; Status Future Hold Hydralazine HCl (Apresoline) 10 mg Q6H PRN IV ELEVATED BLOOD PRESSURE; Start at 16:00 Mupirocin (Bactroban) 1 applic BID TOP Last administered on 10/03/16 09:55; Admin Dose 1 APPLIC; Start 09/30/16 at 09:00 Methylprednisolone Sodium Succinate 40 mg 40 mg Q6 IV Last administered on 10/03 11:24; Admin Dose 40 MG; Start 10/01/16 at 12:00 Imipenem/ Cilastatin Sodium 100 ml @ 100 mls/hr Q6 IVPB Last administered on 11:24; Admin Dose 100 MLS/HR; Start 10/01/16 at 14:30 Fluconazole (Diflucan 200 Mg/ NS (Pmx)) 100 ml @ 100 mls/hr Q24H IVPB Last administered on 10/03/16 15:32; Admin Dose 100 MLS/HR; Start 10/01/16 at 15:30 Assessment/Plan Additional Assessment/Plan ASSESSMENT: 1. Acute on chronic hypoxic and hypercapnic respiratory failure secondary to chronic obstructive pulmonary disease exacerbation. 2. ? Healthcare-associated pneumonia. 3. Urinary tract infection with Klebsiella pneumoniae carbapenemase. 4. Congestive heart failure exacerbation. 5. Acute on chronic systolic and diastolic dysfunction. 6. Ischemic cardiomyopathy, status post automatic implantable cardioverter- defibrillator placement. 7. Coronary artery disease, status post coronary artery stenting. RECS: 1. Extubate to [place]--> keep SpO2 88-90% 2. Continue diuresis 3 .Taper CS 4. De-escalate Abx 5. If okay post-extubation, will transfer to [facility]. 35 min cc time TAVARES KING MD Oct 03, 2016 17:06
[2016-10-03] MEDS: ATORVASTATIN 10 MG TAB PO SCH (21:27)
[2016-10-04] VITALS (13 sets, daily range): BP systolic 138–198; BP diastolic 83–107; PULSE 13–123; RESP 16–22
[2016-10-04] MEDS: ALBUTEROL/IPRATROPIUM (NEB) 3 ML AMP HHN SCH ×4 (01:37→20:45)
[2016-10-04] MEDS: METHYLPREDNISOLONE 40 MG INJ IV SCH ×3 (05:28→17:38)
[2016-10-04] MEDS: IMIPENEM-CILAST 500 MG/NS 100 ML IVPB SCH ×3 (05:28→17:38)
[2016-10-04 05:38] LABS: AADO2 Arterial 75.1 mmHg (7.0-24.0); Allen Test ACCEPTAB; Arterial Base Excess 7.5 mmol/L (-3.0-3); Arterial COHb 0.7 % (0.0-3.0); Arterial Fraction of Oxyhgb 93.1 % (93.0-99.0); Arterial HCO3 33.9 mmol/L (22.0-26.0); Arterial MetHb 0.2 % (0.0-1.5); Arterial Total Hemglobin 13.1 g/dl (12.0-18.0); MODE NASAL CANNULA
[2016-10-04 08:05] LABS: POTASSIUM 4.1 mmol/L (3.5-5.1)
[2016-10-04 08:06] LABS: PHOSPHORUS 3.6 mg/dl (2.5-4.9)
[2016-10-04 08:07] LABS: CREATININE 0.54 mg/dl (0.61-1.24); MAGNESIUM 2.1 mg/dl (1.7-2.5)
[2016-10-04 08:08] LABS: CALCIUM 8.7 mg/dl (8.4-10.2)
[2016-10-04 08:20] LABS: EOSINOPHILS % 0.1 % (0.0-7.0); HEMATOCRIT 36.7 % (42.0-52.0); HEMOGLOBIN 12.4 g/dl (14.0-18.0); LYMPHOCYTES # 0.1 10^3/ul (0.8-2.9); LYMPHOCYTES % 1.3 % (15.0-51.0); MEAN CORPUSCULAR HEMOGLOBIN 32.7 pg (29.0-33.0); MEAN CORPUSCULAR HGB CONC 33.8 g/dl (32.0-37.0); MEAN CORPUSCULAR VOLUME 96.8 fl (82.0-101.0); MEAN PLATELET VOLUME 7.9 fl (7.4-10.4); MONOCYTE # 0.4 10^3/ul (0.3-0.9); MONOCYTES % 3.8 % (0.0-11.0); NEUTROPHIL # 9.8 10^3/ul (1.6-7.5); NEUTROPHILS % 94.8 % (39.0-77.0); PLATELET COUNT 114 10^3/UL (140-440); RED BLOOD COUNT 3.79 10^6/ul (4.70-6.10); UNCORRECTED WBC 10.4 10^3/ul (4.8-10.8); WHITE BLOOD COUNT 10.4 10^3/ul (4.8-10.8)
[2016-10-04 08:25] LABS: CONDITION 1; LH ANALYZER COMMENTS 1
[2016-10-04] MEDS: FAMOTIDINE 20 MG TAB PO SCH ×2 (08:28→20:23)
[2016-10-04] MEDS: CLOPIDOGREL 75 MG TAB PO SCH (08:28)
[2016-10-04] MEDS: METOPROLOL (XL) 25 MG TAB PO SCH (08:29)
[2016-10-04] MEDS: ASPIRIN 81 MG TAB PO SCH (08:30)
[2016-10-04] MEDS: LISINOPRIL 5 MG TAB PO SCH (08:30)
[2016-10-04] MEDS: FUROSEMIDE 40 MG TAB PO SCH (08:30)
[2016-10-04] MEDS: ENOXAPARIN 40 MG/0.4 ML SYG SC SCH (08:39)
[2016-10-04] MEDS ORDERED: GLUCOSE GEL 15 GRAM TUBE BUCCAL PRN (09:00)
[2016-10-04] MEDS: MUPIROCIN 2% 22 GM OINT TOP SCH ×2 (09:00→21:00)
[2016-10-04] MEDS ORDERED: GLUCOSE GEL 15 GRAM TUBE PO PRN ×2 (09:00)
[2016-10-04] MEDS ORDERED: GLUCAGON 1 MG INJ IM PRN (09:00)
[2016-10-04] MEDS ORDERED: DEXTROSE 50% 50 ML SYRINGE IV PRN ×2 (09:00)
--- NOTE | 2016-10-04 11:23 | PN ---
Date/Time of Note Date/Time of Note DATE: 10/04/16 TIME: 11:18 Assessment/Plan VTE Prophylaxis VTE Prophylaxis Intervention: LMWH Lines/Catheters IV C[facility]ter Type (from [facility] PICC Line Central line still needed: Yes Urinary Cath still in place: Yes Reason Cath still needed: other (indicate) (To be discontinued) Assessment/Plan Chief Complaint/Hosp Course 1. Acute on chronic hypoxic and hypercapnic respiratory failure secondary to chronic obstructive pulmonary disease exacerbation. Continue inhaled bronchodilators and tapering dose of steroids. Status post extubation on 2016. 2. Healthcare-associated pneumonia. Sputum culture positive for extended spectrum beta-Lactamases and Lauren albicans. Continue antibiotics as per infectious disease. The patient has no evidence of any septic shock. 3. Urinary tract infection with Klebsiella pneumoniae carbapenemase. Continue antibiotics as per infectious disease. 4. Congestive heart failure exacerbation. Acute on chronic systolic and diastolic dysfunction. Continue diuretics. 5. Ischemic cardiomyopathy, status post automatic implantable cardioverter- defibrillator placement. Continue ZEB inhibitors and beta blockers. 6. Coronary artery disease, status post coronary artery stenting. Continue dual antiplatelet therapy. 7. Essential hypertension. Continue antihypertensives. 8. Dyslipidemia. Continue statins. 9. Right foot injury. The patient has a plaster cast in place. The patient unable to explain why he has a right foot plaster cast. As per the patient, the cast was done at [facility] emergency room. Will obtain imaging studies to evaluate for any underlying fractures. 10. Type 2 diabetes mellitus. Newly diagnosed versus new onset. Hemoglobin A1c 6.6. Start the patient on sliding scale insulin along with basal insulin and pre-meal insulin. 11. Fluid, electrolytes and nutrition. Carbohydrate controlled, low- cholesterol diet. 12. Deep venous thrombosis prophylaxis. Continue subcutaneous Lovenox. 13. Gastrointestinal prophylaxis. Histamine 2 receptor blockers. PLAN: Continue antibiotics as per infectious disease. Continue to wean off steroids as per pulmonary. Obtain right foot x-ray to evaluate any underlying fractures. Discontinue Pruett catheter. Case was discussed with Dr. Murray. Problems: Subjective 24 Hr Interval Summary Free Text/Dictation Denies any chest pain. Doing better. Exam/Review of Systems Vital Signs Vitals Vital Signs Date Time Temp Pulse Resp B/P Pulse Ox O2 Delivery O2 Flow Rate FiO2 10/04/16 10:16 91 3.0 10/04/16 10:12 56 23 Nasal Cannula 10/04/16 07:05 98.8 198/94 10/03/16 11:10 35 Intake and Output 10/03/16 10/03/16 10/04/16 14:59 22:59 06:59 Intake Total 317.0 ml 660 ml Output Total 600 ml 600 ml Balance -283.0 ml 60 ml Exam GENERAL: This is a frail-looking 56-year-old male patient, lying in bed in mild respiratory distress. HEENT: Head normocephalic and atraumatic. Eyes, anicteric sclerae. Conjunctivae are clear. ENT: Nasal septum is midline. Oral mucosa is dry. NECK: Supple. No JVD noticed. RESPIRATORY: Bilaterally diminished breath sounds. Minimal use of accessory muscles of respiration. CARDIAC: S1, S2 heard. Regular rate and rhythm. ABDOMEN: Soft, nontender and nondistended. Bowel sounds are positive in all 4 quadrants. GENITOURINARY: Deferred. EXTREMITIES: No cyanosis. Clubbing of bilateral upper digits. Bilateral lower extremity edema. Right lower extremity has a plaster cast in place. NEUROLOGIC: The patient is awake, alert, and oriented. Results Result Diagram: 10/04/16 0610 10/04/16 0610 Results 24 hrs Laboratory Tests Test 10/04/16 05:00 10/04/16 06:10 10/04/16 08:25 Arterial Blood HCO3 33.9 H Arterial Blood Base Excess 7.5 H Arterial Blood Oxygen Saturation 93.9 L Thomas Test ACCEPTAB Arterial Blood Gas Puncture Site Right Radial Arterial Blood Carboxyhemoglobin 0.7 Arterial Blood Date Drawn 10/04/2016 5:20:08 AM Arterial Blood Methemoglobin 0.2 Arterial Blood pCO2 (Temp correct) 55.5 H Arterial Blood pH (Temp corrected) 7.404 Arterial Blood pO2 (Temp corrected) 73.6 L Blood Gas A-a O2 Differential 75.1 H Blood Gas Modality NASAL CANNULA Blood Gas Notified Time 10/04/2016 5:38:17 AM Blood Gas Notified Whom UP Blood Gas Specimen Source Blood arterial Blood Gas Temperature 37.0 FiO2 30.0 Oxyhemoglobin Percent 93.1 Total Hemoglobin 13.1 Anion Gap 11 Basophils # 0.0 Basophils % 0.0 Blood Morphology Comment Blood Urea Nitrogen 35 H Calcium Level 8.7 Carbon Dioxide Level 38 H Chloride Level 92 L Creatinine 0.54 L Eosinophils # 0.0 Eosinophils % 0.1 Glucose Level 165 Hematocrit 36.7 L Hemoglobin 12.4 L Lymphocytes # 0.1 L Lymphocytes % 1.3 L Magnesium Level 2.1 Mean Corpuscular Hemoglobin 32.7 Mean Corpuscular Hemoglobin Concent 33.8 Mean Corpuscular Volume 96.8 Mean Platelet Volume 7.9 Monocytes # 0.4 Monocytes % 3.8 Neutrophils # 9.8 H Neutrophils % 94.8 H Nucleated Red Blood Cells # 0.0 Nucleated Red Blood Cells % 0.0 Phosphorus Level 3.6 Platelet Count 114 #L Potassium Level 4.1 Red Blood Count 3.79 L Red Cell Distribution Width 16.0 H Sodium Level 137 White Blood Count 10.4 # Bedside Glucose 178 Medications Medications Current Medications IV Flush (NS 10 ml) 10 ml PRN PRN IV IV PROTOCOL; Start 09/28/16 at 14:00 Ondansetron HCl (Zofran Inj) 4 mg Q6H PRN IV NAUSEA AND/OR VOMITING; Start at 15:00 Nitroglycerin (Nitroglycerin (Sl Tab) 0.4 Mg) 1 tab Q5M PRN SL CHEST PAIN; Start 09/28/16 at 15:00 Acetaminophen (Tylenol Liquid) 650 mg Q6H PRN PO PAIN LEVEL 1-3 OR FEVER; Start 09/28/16 at 15:00 Acetaminophen (Tylenol Tab) 650 mg Q6H PRN PO PAIN LEVEL 1-3 OR FEVER; Start at 15:00 Morphine Sulfate (morphine) 2 mg Q4H PRN IV PAIN LEVEL 7-10 Last administered on 09/29/16 02:30; Admin Dose 2 MG; Start 09/28/16 at 15:00 Lorazepam (Ativan) 1 mg Q2H PRN IV ANXIETY; Start 09/28/16 at 15:00 Docusate Sodium (Colace) 100 mg Q12H PRN PO CONSTIPATION; Start 09/28/16 at 15: 00 Famotidine (Pepcid) 20 mg Q12 PO Last administered on 10/04/16 08:28; Admin Dose 20 MG; Start 09/28/16 at 21:00 Enoxaparin Sodium (Lovenox) 40 mg DAILY SC Last administered on 10/04/16 08:39 ; Admin Dose 40 MG; Start 09/29/16 at 09:00 Aspirin (Aspirin) 81 mg DAILY PO Last administered on 10/04/16 08:30; Admin Dose 81 MG; Start 09/29/16 at 09:00 Atorvastatin Calcium (Lipitor) 10 mg QHS PO Last administered on 10/03/16 21: 27; Admin Dose 10 MG; Start 09/28/16 at 21:00 Clopidogrel Bisulfate (plaVIX) 75 mg DAILY PO Last administered on 10/04/16 08 :28; Admin Dose 75 MG; Start 09/29/16 at 09:00 Furosemide (Lasix) 40 mg DAILY PO Last administered on 10/04/16 08:30; Admin Dose 40 MG; Start 09/29/16 at 09:00 Lisinopril (Zestril) 5 mg DAILY PO Last administered on 10/04/16 08:30; Admin Dose 5 MG; Start 09/29/16 at 09:00 Metoprolol Succinate (Toprol Xl) 25 mg DAILY PO Last administered on 10/04/16 08:29; Admin Dose 25 MG; Start 09/29/16 at 09:00 Tiotropium [place] (Spiriva) 1 inh DAILY INH ; Start 09/28/16 at 16:00; Status Future Hold Hydralazine HCl (Apresoline) 10 mg Q6H PRN IV ELEVATED BLOOD PRESSURE Last administered on 10/03/16 18:26; Admin Dose 10 MG; Start 09/28/16 at 16:00 Mupirocin (Bactroban) 1 applic BID TOP Last administered on 10/03/16 09:55; Admin Dose 1 APPLIC; Start 09/30/16 at 09:00 Methylprednisolone Sodium Succinate 40 mg 40 mg Q6 IV Last administered on 10/04 05:28; Admin Dose 40 MG; Start 10/01/16 at 12:00 Imipenem/ Cilastatin Sodium 100 ml @ 100 mls/hr Q6 IVPB Last administered on 05:28; Admin Dose 100 MLS/HR; Start 10/01/16 at 14:30 Fluconazole (Diflucan 200 Mg/ NS (Pmx)) 100 ml @ 100 mls/hr Q24H IVPB Last administered on 10/03/16 15:32; Admin Dose 100 MLS/HR; Start 10/01/16 at 15:30 Insulin Glargine (Lantus) 9 unit HS SC ; Start 10/04/16 at 21:00 Diagnostic Test (Pha) (Accucheck) 1 ea 02 XX ; Start 10/05/16 at 02:00 Miscellaneous Information 1 ea NOTE XX ; Start 10/04/16 at 09:00 Glucose (Glutose) 15 gm Q15M PRN PO DECREASED GLUCOSE; Start 10/04/16 at 09:00 Glucose (Glutose) 22.5 gm Q15M PRN PO DECREASED GLUCOSE; Start 10/04/16 at 09: 00 Dextrose (D50w Syringe) 25 ml Q15M PRN IV DECREASED GLUCOSE; Start 10/04/16 at 09:00 Dextrose (D50w Syringe) 50 ml Q15M PRN IV DECREASED GLUCOSE; Start 10/04/16 at 09:00 Glucagon (Glucagen) 1 mg Q15M PRN IM DECREASED GLUCOSE; Start 10/04/16 at 09:00 Glucose (Glutose) 15 gm Q15M PRN BUCCAL DECREASED GLUCOSE; Start 10/04/16 at 09 :00 SOHA ALCOCER NP Oct 04, 2016 11:23
[2016-10-04] MEDS: INSULIN ASPART [NOVOLOG] 3 ML PEN SC SCH ×5 (12:25→20:25)
--- NOTE | 2016-10-04 12:50 | RADRPT ---
PROCEDURE: XR Chest. CLINICAL INDICATION: Shortness of breath. TECHNIQUE: Single frontal view. COMPARISON: 10/03/2016. FINDINGS: The endotracheal tube and nasogastric tube have been removed. The right arm PICC line remains in sa tisfactory position with the tip in the lower superior vena cava. There is a left-sided single lead permanent pacemaker/internal cardiac defibrillator. Mild pulmonary edema and bibasilar atelectasis is unchanged. The heart is enlarged. There are small bilateral pleural effusions. There is no pneumothorax. IMPRESSION: 1. No change from 10/03/2016. RPTAT: QQ .Demetrius Espinoza MD, MD Date Time Electronically viewed and signed by .Demetrius Espinoza MD, MD on 10/04/2016 12:49 .R/
--- NOTE | 2016-10-04 14:36 | RADRPT ---
PROCEDURE: XR Right Foot. CLINICAL INDICATION: Trauma. Right foot pain. TECHNIQUE: Three views. Frontal, lateral, and oblique. COMPARISON: None. FINDINGS: There is no fracture or dislocation. The soft tissues are normal. Articular surfaces are intact. There is no lytic or blastic lesion. There is a posterior fiberglass splint which partially obscures bone detail. IMPRESSION: 1. Limited study due to a posterior fiberglass splint. 2. No obvious fracture or dislocation. RPTAT: QQ .Demetrius Espinoza MD, MD Date Time Electronically viewed and signed by .Demetrius Espinoza MD, on 10/04/2016 14:36 .R/
--- NOTE | 2016-10-04 14:50 | CONS ---
Date/Time of Note Date/Time of Note DATE: 10/04/16 TIME: 14:46 Assessment/Plan Assessment/Plan Chief Complaint/Hosp Course D PROGRESS NOTE TOTAL ABX DAY #7 => Primaxin #4, Diflucan #4 s/p Vanco, Levaquin, Cefepime 24H INTERVAL SUMMARY * Much improved status -> Extubated in am yesterday 10/03/16 -> strong cough reflex noted * OOB-> Bedside commode with assistance * no fevers, VSS URINE CULTURE Final Organism 1 KLEB PNEUMONIAE CARBAPENEMASE COLONY COUNT >100,000 CFU/ml . MULTI DRUG RESISTANT ORGANISM KLEB PNEUM M.I.C. RX --------- --- AMIKACIN R CEFAZOLIN R CEFEPIME R CEFOTAXIME R CEFTAZIDIME >=64 R CIPROFLOXACIN >=4 R GENTAMICIN 8 I IMIPENEM 8 S LEVOFLOXACIN >=8 R NITROFURANTOIN 256 S TOBRAMYCIN >=16 R TRIMETHOPRIM/SULFAMETHOXAZOLE >=320 R PIPERACILLIN/TAZOBACTAM >=128 R PHYSICAL EXAMINATION: GENERAL: 66 yo -- OOB-> Bedside commode doing well HEENT: Unremarkable NECK: Supple, trachea midline. CHEST: Equal chest rise bilaterally HEART: Pulse RRR ABDOMEN: Soft EXTREMITIES: Warm SKIN: See photos ID ASSESSMENT: 66 yo M admit with: 1. Sepsis on admission w/(+)Lactic acidosis, leukocytosis, low grade temps = RESOLVING * SIRS w/low grade Tmax 99.0, WBC normalized 2. Complicated GNR MDRO = KP(CRKP) UTI 3. Acute hypoxic respiratory failure 4. Aspiration Pneumonia= E.coli/ESBL RESPIRATORY CULTURE Final Organism 1 ESCHERICHIA COLI (ESBL) = QUANTITY SCANT GROWTH Organism 2 VERNON ALBICANS = QUANTITY 1+ 5. Acute exacerbation/Chronic COPD = On Solu-Medrol 6. Acute exacerbation CHF on chronic ischemic cardiomyopathy with ejection fraction 25%. 7. Essential HTN 8. Dyslipidemia. 9. Oral Candidiasis (+ )MRSA Nares ->Bactroban INVASIVES: ABX ALLERGY: KNDA CURRENT ABX: TOTAL ABX DAY #7 => Primaxin #4, Diflucan #4 s/p Vanco, Levaquin, Cefepime ID RECOMMENDATIONS: 1. Continue Primaxin total ~7 days per clinical improvement = today DAY #4/7 2. Diflucan for candidiasis 3. Aspiration precautions post extubation/pulmonary toilet . . Problems: Consultation Date/Type/Reason Admit Date/Time Sep 28, 2016 at 14:41 Initial Consult Date 09/28/16 Type of Consultation: ID Exam/Review of Systems Vital Signs Vitals Vital Signs Date Time Temp Pulse Resp B/P Pulse Ox O2 Delivery O2 Flow Rate FiO2 10/04/16 12:33 123 10/04/16 11:25 99.1 20 138/83 89 10/04/16 10:16 3.0 10/04/16 10:12 Nasal Cannula 10/03/16 11:10 35 Intake and Output 10/03/16 10/03/16 10/04/16 15:00 23:00 07:00 Intake Total 287.0 ml 660 ml Output Total 750 ml 450 ml Balance -463.0 ml 210 ml Results Result Diagram: 10/04/16 0610 10/04/16 0610 Results 24 hrs Laboratory Tests Test 10/04/16 05:00 10/04/16 06:10 10/04/16 08:25 10/04/16 11:56 Arterial Blood HCO3 33.9 H Arterial Blood Base Excess 7.5 H Arterial Blood Oxygen Saturation 93.9 L Thomas Test ACCEPTAB Arterial Blood Gas Puncture Site Right Radial Arterial Blood Carboxyhemoglobin 0.7 Arterial Blood Date Drawn 10/04/2016 5:20:08 AM Arterial Blood Methemoglobin 0.2 Arterial Blood pCO2 (Temp correct) 55.5 H Arterial Blood pH (Temp corrected) 7.404 Arterial Blood pO2 (Temp corrected) 73.6 L Blood Gas A-a O2 Differential 75.1 H Blood Gas Modality NASAL CANNULA Blood Gas Notified Time 10/04/2016 5:38:17 AM Blood Gas Notified Whom UP Blood Gas Specimen Source Blood arterial Blood Gas Temperature 37.0 FiO2 30.0 Oxyhemoglobin Percent 93.1 Total Hemoglobin 13.1 Anion Gap 11 Basophils # 0.0 Basophils % 0.0 Blood Morphology Comment Blood Urea Nitrogen 35 H Calcium Level 8.7 Carbon Dioxide Level 38 H Chloride Level 92 L Creatinine 0.54 L Eosinophils # 0.0 Eosinophils % 0.1 Glucose Level 165 Hematocrit 36.7 L Hemoglobin 12.4 L Lymphocytes # 0.1 L Lymphocytes % 1.3 L Magnesium Level 2.1 Mean Corpuscular Hemoglobin 32.7 Mean Corpuscular Hemoglobin Concent 33.8 Mean Corpuscular Volume 96.8 Mean Platelet Volume 7.9 Monocytes # 0.4 Monocytes % 3.8 Neutrophils # 9.8 H Neutrophils % 94.8 H Nucleated Red Blood Cells # 0.0 Nucleated Red Blood Cells % 0.0 Phosphorus Level 3.6 Platelet Count 114 #L Potassium Level 4.1 Red Blood Count 3.79 L Red Cell Distribution Width 16.0 H Sodium Level 137 White Blood Count 10.4 # Bedside Glucose 178 175 Medications Medications Current Medications IV Flush (NS 10 ml) 10 ml PRN PRN IV IV PROTOCOL; Start 09/28/16 at 14:00 Ondansetron HCl (Zofran Inj) 4 mg Q6H PRN IV NAUSEA AND/OR VOMITING; Start at 15:00 Nitroglycerin (Nitroglycerin (Sl Tab) 0.4 Mg) 1 tab Q5M PRN SL CHEST PAIN; Start 09/28/16 at 15:00 Acetaminophen (Tylenol Liquid) 650 mg Q6H PRN PO PAIN LEVEL 1-3 OR FEVER; Start 09/28/16 at 15:00 Acetaminophen (Tylenol Tab) 650 mg Q6H PRN PO PAIN LEVEL 1-3 OR FEVER; Start at 15:00 Morphine Sulfate (morphine) 2 mg Q4H PRN IV PAIN LEVEL 7-10 Last administered on 09/29/16 02:30; Admin Dose 2 MG; Start 09/28/16 at 15:00 Lorazepam (Ativan) 1 mg Q2H PRN IV ANXIETY; Start 09/28/16 at 15:00 Docusate Sodium (Colace) 100 mg Q12H PRN PO CONSTIPATION; Start 09/28/16 at 15: 00 Famotidine (Pepcid) 20 mg Q12 PO Last administered on 10/04/16 08:28; Admin Dose 20 MG; Start 09/28/16 at 21:00 Enoxaparin Sodium (Lovenox) 40 mg DAILY SC Last administered on 10/04/16 08:39 ; Admin Dose 40 MG; Start 09/29/16 at 09:00 Aspirin (Aspirin) 81 mg DAILY PO Last administered on 10/04/16 08:30; Admin Dose 81 MG; Start 09/29/16 at 09:00 Atorvastatin Calcium (Lipitor) 10 mg QHS PO Last administered on 10/03/16 21: 27; Admin Dose 10 MG; Start 09/28/16 at 21:00 Clopidogrel Bisulfate (plaVIX) 75 mg DAILY PO Last administered on 10/04/16 08 :28; Admin Dose 75 MG; Start 09/29/16 at 09:00 Furosemide (Lasix) 40 mg DAILY PO Last administered on 10/04/16 08:30; Admin Dose 40 MG; Start 09/29/16 at 09:00 Lisinopril (Zestril) 5 mg DAILY PO Last administered on 10/04/16 08:30; Admin Dose 5 MG; Start 09/29/16 at 09:00 Metoprolol Succinate (Toprol Xl) 25 mg DAILY PO Last administered on 10/04/16 08:29; Admin Dose 25 MG; Start 09/29/16 at 09:00 Tiotropium [place] (Spiriva) 1 inh DAILY INH ; Start 09/28/16 at 16:00; Status Future Hold Hydralazine HCl (Apresoline) 10 mg Q6H PRN IV ELEVATED BLOOD PRESSURE Last administered on 10/03/16 18:26; Admin Dose 10 MG; Start 09/28/16 at 16:00 Mupirocin (Bactroban) 1 applic BID TOP Last administered on 10/03/16 09:55; Admin Dose 1 APPLIC; Start 09/30/16 at 09:00 Methylprednisolone Sodium Succinate 40 mg 40 mg Q6 IV Last administered on 10/04 12:14; Admin Dose 40 MG; Start 10/01/16 at 12:00 Imipenem/ Cilastatin Sodium 100 ml @ 100 mls/hr Q6 IVPB Last administered on 12:14; Admin Dose 100 MLS/HR; Start 10/01/16 at 14:30 Fluconazole (Diflucan 200 Mg/ NS (Pmx)) 100 ml @ 100 mls/hr Q24H IVPB Last administered on 10/03/16 15:32; Admin Dose 100 MLS/HR; Start 10/01/16 at 15:30 Insulin Glargine (Lantus) 9 unit HS SC ; Start 10/04/16 at 21:00 Diagnostic Test (Pha) (Accucheck) 1 ea 02 XX ; Start 10/05/16 at 02:00 Miscellaneous Information 1 ea NOTE XX ; Start 10/04/16 at 09:00 Glucose (Glutose) 15 gm Q15M PRN PO DECREASED GLUCOSE; Start 10/04/16 at 09:00 Glucose (Glutose) 22.5 gm Q15M PRN PO DECREASED GLUCOSE; Start 10/04/16 at 09: 00 Dextrose (D50w Syringe) 25 ml Q15M PRN IV DECREASED GLUCOSE; Start 10/04/16 at 09:00 Dextrose (D50w Syringe) 50 ml Q15M PRN IV DECREASED GLUCOSE; Start 10/04/16 at 09:00 Glucagon (Glucagen) 1 mg Q15M PRN IM DECREASED GLUCOSE; Start 10/04/16 at 09:00 Glucose (Glutose) 15 gm Q15M PRN BUCCAL DECREASED GLUCOSE; Start 10/04/16 at 09 :00 Influenza Virus Vaccine (Fluzone) 0.5 ml ONCE ONCE IM* ; Start 10/05/16 at 09:00 ; Stop 10/05/16 at 09:01 UNIQUE KIRKLAND NP Oct 04, 2016 14:50
[2016-10-04] MEDS: FLUCONAZOLE 200 MG/NS (PMX) 100 ML IVPB SCH (16:44)
--- NOTE | 2016-10-04 17:31 | CONS ---
Date/Time of Note Date/Time of Note DATE: 10/04/16 TIME: 17:30 Consult Date/Type/Reason Admit Date/Time Sep 28, 2016 at 14:41 Initial Consult Date 09/28/16 Type of Consultation: pulm Subjective No events. better. Objective Vital Signs Date Time Temp Pulse Resp B/P Pulse Ox O2 Delivery O2 Flow Rate FiO2 10/04/16 16:23 93 10/04/16 15:23 94 2.0 10/04/16 15:21 23 Nasal Cannula 10/04/16 15:01 98.3 139/107 10/03/16 11:10 35 Intake and Output 10/03/16 10/03/16 10/04/16 15:00 23:00 07:00 Intake Total 287.0 ml 660 ml Output Total 750 ml 450 ml Balance -463.0 ml 210 ml NECK: Supple. No JVD noticed. RESPIRATORY: Bilaterally diminished breath sounds. Orally intubated and connected to a mechanical ventilator. CARDIAC: S1, S2 heard. Regular rate and rhythm. ABDOMEN: Soft, nontender and nondistended. Bowel sounds are positive in all 4 quadrants. EXT: plaster on lower extremity Results/Medications Result Diagram: 10/04/16 0610 10/04/16 0610 Results 24 hrs Laboratory Tests Test 10/04/16 05:00 10/04/16 06:10 10/04/16 08:25 10/04/16 11:56 Arterial Blood HCO3 33.9 H Arterial Blood Base Excess 7.5 H Arterial Blood Oxygen Saturation 93.9 L Thomas Test ACCEPTAB Arterial Blood Gas Puncture Site Right Radial Arterial Blood Carboxyhemoglobin 0.7 Arterial Blood Date Drawn 10/04/2016 5:20:08 AM Arterial Blood Methemoglobin 0.2 Arterial Blood pCO2 (Temp correct) 55.5 H Arterial Blood pH (Temp corrected) 7.404 Arterial Blood pO2 (Temp corrected) 73.6 L Blood Gas A-a O2 Differential 75.1 H Blood Gas Modality NASAL CANNULA Blood Gas Notified Time 10/04/2016 5:38:17 AM Blood Gas Notified Whom UP Blood Gas Specimen Source Blood arterial Blood Gas Temperature 37.0 FiO2 30.0 Oxyhemoglobin Percent 93.1 Total Hemoglobin 13.1 Anion Gap 11 Basophils # 0.0 Basophils % 0.0 Blood Morphology Comment Blood Urea Nitrogen 35 H Calcium Level 8.7 Carbon Dioxide Level 38 H Chloride Level 92 L Creatinine 0.54 L Eosinophils # 0.0 Eosinophils % 0.1 Glucose Level 165 Hematocrit 36.7 L Hemoglobin 12.4 L Lymphocytes # 0.1 L Lymphocytes % 1.3 L Magnesium Level 2.1 Mean Corpuscular Hemoglobin 32.7 Mean Corpuscular Hemoglobin Concent 33.8 Mean Corpuscular Volume 96.8 Mean Platelet Volume 7.9 Monocytes # 0.4 Monocytes % 3.8 Neutrophils # 9.8 H Neutrophils % 94.8 H Nucleated Red Blood Cells # 0.0 Nucleated Red Blood Cells % 0.0 Phosphorus Level 3.6 Platelet Count 114 #L Potassium Level 4.1 Red Blood Count 3.79 L Red Cell Distribution Width 16.0 H Sodium Level 137 White Blood Count 10.4 # Bedside Glucose 178 175 Test 10/04/16 16:33 Bedside Glucose 158 Medications Current Medications IV Flush (NS 10 ml) 10 ml PRN PRN IV IV PROTOCOL; Start 09/28/16 at 14:00 Ondansetron HCl (Zofran Inj) 4 mg Q6H PRN IV NAUSEA AND/OR VOMITING; Start at 15:00 Nitroglycerin (Nitroglycerin (Sl Tab) 0.4 Mg) 1 tab Q5M PRN SL CHEST PAIN; Start 09/28/16 at 15:00 Acetaminophen (Tylenol Liquid) 650 mg Q6H PRN PO PAIN LEVEL 1-3 OR FEVER; Start 09/28/16 at 15:00 Acetaminophen (Tylenol Tab) 650 mg Q6H PRN PO PAIN LEVEL 1-3 OR FEVER; Start at 15:00 Morphine Sulfate (morphine) 2 mg Q4H PRN IV PAIN LEVEL 7-10 Last administered on 09/29/16 02:30; Admin Dose 2 MG; Start 09/28/16 at 15:00 Lorazepam (Ativan) 1 mg Q2H PRN IV ANXIETY; Start 09/28/16 at 15:00 Docusate Sodium (Colace) 100 mg Q12H PRN PO CONSTIPATION; Start 09/28/16 at 15: 00 Famotidine (Pepcid) 20 mg Q12 PO Last administered on 10/04/16 08:28; Admin Dose 20 MG; Start 09/28/16 at 21:00 Enoxaparin Sodium (Lovenox) 40 mg DAILY SC Last administered on 10/04/16 08:39 ; Admin Dose 40 MG; Start 09/29/16 at 09:00 Aspirin (Aspirin) 81 mg DAILY PO Last administered on 10/04/16 08:30; Admin Dose 81 MG; Start 09/29/16 at 09:00 Atorvastatin Calcium (Lipitor) 10 mg QHS PO Last administered on 10/03/16 21: 27; Admin Dose 10 MG; Start 09/28/16 at 21:00 Clopidogrel Bisulfate (plaVIX) 75 mg DAILY PO Last administered on 10/04/16 08 :28; Admin Dose 75 MG; Start 09/29/16 at 09:00 Furosemide (Lasix) 40 mg DAILY PO Last administered on 10/04/16 08:30; Admin Dose 40 MG; Start 09/29/16 at 09:00 Lisinopril (Zestril) 5 mg DAILY PO Last administered on 10/04/16 08:30; Admin Dose 5 MG; Start 09/29/16 at 09:00 Metoprolol Succinate (Toprol Xl) 25 mg DAILY PO Last administered on 10/04/16 08:29; Admin Dose 25 MG; Start 09/29/16 at 09:00 Tiotropium [place] (Spiriva) 1 inh DAILY INH ; Start 09/28/16 at 16:00; Status Future Hold Hydralazine HCl (Apresoline) 10 mg Q6H PRN IV ELEVATED BLOOD PRESSURE Last administered on 10/03/16 18:26; Admin Dose 10 MG; Start 09/28/16 at 16:00 Mupirocin (Bactroban) 1 applic BID TOP Last administered on 10/03/16 09:55; Admin Dose 1 APPLIC; Start 09/30/16 at 09:00 Methylprednisolone Sodium Succinate 40 mg 40 mg Q6 IV Last administered on 10/04 12:14; Admin Dose 40 MG; Start 10/01/16 at 12:00 Imipenem/ Cilastatin Sodium 100 ml @ 100 mls/hr Q6 IVPB Last administered on 12:14; Admin Dose 100 MLS/HR; Start 10/01/16 at 14:30 Fluconazole (Diflucan 200 Mg/ NS (Pmx)) 100 ml @ 100 mls/hr Q24H IVPB Last administered on 1/29/17at 16:44; Admin Dose 100 MLS/HR; Start 10/01/16 at 15:30 Insulin Glargine (Lantus) 9 unit HS SC ; Start 10/04/16 at 21:00 Diagnostic Test (Pha) (Accucheck) 1 ea 02 XX ; Start 10/05/16 at 02:00 Miscellaneous Information 1 ea NOTE XX ; Start 10/04/16 at 09:00 Glucose (Glutose) 15 gm Q15M PRN PO DECREASED GLUCOSE; Start 10/04/16 at 09:00 Glucose (Glutose) 22.5 gm Q15M PRN PO DECREASED GLUCOSE; Start 10/04/16 at 09: 00 Dextrose (D50w Syringe) 25 ml Q15M PRN IV DECREASED GLUCOSE; Start 10/04/16 at 09:00 Dextrose (D50w Syringe) 50 ml Q15M PRN IV DECREASED GLUCOSE; Start 10/04/16 at 09:00 Glucagon (Glucagen) 1 mg Q15M PRN IM DECREASED GLUCOSE; Start 10/04/16 at 09:00 Glucose (Glutose) 15 gm Q15M PRN BUCCAL DECREASED GLUCOSE; Start 10/04/16 at 09 :00 Influenza Virus Vaccine (Fluzone) 0.5 ml ONCE ONCE IM* ; Start 10/05/16 at 09:00 ; Stop 10/05/16 at 09:01 Assessment/Plan Additional Assessment/Plan ASSESSMENT: 1. Acute on chronic hypoxic and hypercapnic respiratory failure secondary to chronic obstructive pulmonary disease exacerbation. 2. ? Healthcare-associated pneumonia. 3. Urinary tract infection with Klebsiella pneumoniae carbapenemase. 4. Congestive heart failure exacerbation. 5. Acute on chronic systolic and diastolic dysfunction. 6. Ischemic cardiomyopathy, status post automatic implantable cardioverter- defibrillator placement. 7. Coronary artery disease, status post coronary artery stenting. RECS: 1. NC--> keep SpO2 88-90% 2. Continue diuresis 3 .Taper CS 4. De-escalate Abx TAVARES KING MD Oct 04, 2016 17:31
[2016-10-04] MEDS: ATORVASTATIN 10 MG TAB PO SCH (20:23)
[2016-10-04] MEDS: INSULIN GLARGINE [LANtus] 3 ML PEN SC SCH (20:25)
[2016-10-05] VITALS (12 sets, daily range): BP systolic 131–165; BP diastolic 70–115; PULSE 90–167; RESP 16–20
[2016-10-05] MEDS: METHYLPREDNISOLONE 40 MG INJ IV SCH ×2 (00:34→05:24)
[2016-10-05] MEDS: IMIPENEM-CILAST 500 MG/NS 100 ML IVPB SCH ×3 (00:34→11:43)
[2016-10-05] MEDS: ALBUTEROL/IPRATROPIUM (NEB) 3 ML AMP HHN SCH ×4 (01:39→20:00)
[2016-10-05] MEDS: ACCU-CHEK XX SCH (02:00)
[2016-10-05 07:08] LABS: POTASSIUM 3.8 mmol/L (3.5-5.1)
[2016-10-05 07:10] LABS: CREATININE 0.57 mg/dl (0.61-1.24)
[2016-10-05 07:11] LABS: CALCIUM 8.7 mg/dl (8.4-10.2)
[2016-10-05 07:22] LABS: PHOSPHORUS 2.5 mg/dl (2.5-4.9)
[2016-10-05 07:35] LABS: BASOPHILS % 0.1 % (0.0-2.0); HEMATOCRIT 32.5 % (42.0-52.0); HEMOGLOBIN 11.1 g/dl (14.0-18.0); LYMPHOCYTES # 0.2 10^3/ul (0.8-2.9); LYMPHOCYTES % 1.6 % (15.0-51.0); MEAN CORPUSCULAR HEMOGLOBIN 32.9 pg (29.0-33.0); MEAN CORPUSCULAR HGB CONC 34.2 g/dl (32.0-37.0); MEAN CORPUSCULAR VOLUME 96.2 fl (82.0-101.0); MEAN PLATELET VOLUME 7.7 fl (7.4-10.4); MONOCYTE # 0.6 10^3/ul (0.3-0.9); MONOCYTES % 5.9 % (0.0-11.0); NEUTROPHILS % 92.4 % (39.0-77.0); PLATELET COUNT 111 10^3/UL (140-440); RED BLOOD COUNT 3.38 10^6/ul (4.70-6.10); RED CELL DISTRIBUTION WIDTH 15.7 % (11.5-14.5); UNCORRECTED WBC 9.8 10^3/ul (4.8-10.8); WHITE BLOOD COUNT 9.8 10^3/ul (4.8-10.8)
[2016-10-05 07:40] LABS: CONDITION 1; LH ANALYZER COMMENTS 1
[2016-10-05] MEDS: INSULIN ASPART [NOVOLOG] 3 ML PEN SC SCH ×7 (07:50→21:00)
[2016-10-05] MEDS: ASPIRIN 81 MG TAB PO SCH (08:54)
[2016-10-05] MEDS: FUROSEMIDE 40 MG TAB PO SCH (08:54)
[2016-10-05] MEDS: FAMOTIDINE 20 MG TAB PO SCH ×2 (08:54→20:11)
[2016-10-05] MEDS: METOPROLOL (XL) 25 MG TAB PO SCH (08:54)
[2016-10-05] MEDS: CLOPIDOGREL 75 MG TAB PO SCH (08:54)
[2016-10-05] MEDS: LISINOPRIL 5 MG TAB PO SCH (08:55)
[2016-10-05] MEDS: MUPIROCIN 2% 22 GM OINT TOP SCH ×2 (08:56)
[2016-10-05] MEDS: ENOXAPARIN 40 MG/0.4 ML SYG SC SCH (09:00)
[2016-10-05] MEDS ORDERED: INFLUENZA VIRUS VACCINE 0.5 ML (DISPENSING) IM* ONE (09:00)
--- NOTE | 2016-10-05 10:21 | CONS ---
Date/Time of Note Date/Time of Note DATE: 10/05/16 TIME: 10:17 Assessment/Plan Assessment/Plan Additional Assessment/Plan Assessment and recommendations; 1. Patient admitted with respiratory failure due to severe hypercapnia which has been recurrent. Bilateral pneumonia with marked clinical and radiological improvement. 2. Underlying cardiomyopathy and CHF currently clinically compensated. 3. History of pacemaker implantation. 4. Recent toe fracture. Right foot is in a cast. Next 5. UTI. Next Next Continue current treatment. Discontinue Solu-Medrol. Start the patient on prednisone 15 mg twice daily. Patient would need to have a BiPAP to be used at home. Consultation Date/Type/Reason Admit Date/Time Sep 28, 2016 at 14:41 Initial Consult Date 09/28/16 Type of Consultation: pulm 24 HR Interval Summary Free Text/Dictation Patient condition is markedly improved the patient has been extubated transferred to telemetry unit. Denies any shortness of breath. Any cough. Any sputum production. Fever chills. Patient has experienced couple of electric shocks to the chest from pacemaker. Monitoring on telemetry unit revealed there was no cardiac arrhythmia other than pacemaker pacing. General examination; currently in no distress awake and alert. Sitting on bedside. Exam/Review of Systems Vital Signs Vitals Vital Signs Date Time Temp Pulse Resp B/P Pulse Ox O2 Delivery O2 Flow Rate FiO2 10/05/16 08:13 139 10/05/16 08:04 20 93 Nasal Cannula 2.0 10/05/16 07:05 97.9 131/88 10/03/16 11:10 35 Intake and Output 10/04/16 10/04/16 10/05/16 15:00 23:00 07:00 Intake Total 700 ml 800 ml Output Total 400 ml 750 ml Balance 300 ml 50 ml Exam H EENT examination; supple neck, no JVD, no lymphadenopathy. No thyromegaly. Pharynx is clear. Next Chest examination; diminished but clear breath sounds bilaterally. S1-S2 audible no murmurs. There is a pacemaker in the left chest wall. Abdomen examination; soft slightly protuberant ,nontender bowel sounds audible, no organomegaly. Extremity examination; there is no peripheral edema, right foot is in a cast. [employer] examination; no focal deficit. Results Result Diagram: 10/05/16 0605 10/05/16 0605 Results 24 hrs Laboratory Tests Test 10/04/16 11:56 10/04/16 16:33 10/04/16 20:15 10/05/16 01:57 Bedside Glucose 175 158 272 H 186 Test 10/05/16 06:05 10/05/16 07:46 Anion Gap 12 Basophils # 0.0 Basophils % 0.1 Blood Morphology Comment Blood Urea Nitrogen 34 H Calcium Level 8.7 Carbon Dioxide Level 34 H Chloride Level 93 L Creatinine 0.57 L Eosinophils # 0.0 Eosinophils % 0.0 Glucose Level 114 # Hematocrit 32.5 L Hemoglobin 11.1 L Lymphocytes # 0.2 L Lymphocytes % 1.6 L Magnesium Level 2.0 Mean Corpuscular Hemoglobin 32.9 Mean Corpuscular Hemoglobin Concent 34.2 Mean Corpuscular Volume 96.2 Mean Platelet Volume 7.7 Monocytes # 0.6 Monocytes % 5.9 Neutrophils # 9.0 H Neutrophils % 92.4 H Nucleated Red Blood Cells # 0.0 Nucleated Red Blood Cells % 0.0 Phosphorus Level 2.5 Platelet Count 111 L Potassium Level 3.8 Red Blood Count 3.38 L Red Cell Distribution Width 15.7 H Sodium Level 135 White Blood Count 9.8 Bedside Glucose 119 Medications Medications Current Medications IV Flush (NS 10 ml) 10 ml PRN PRN IV IV PROTOCOL; Start 09/28/16 at 14:00 Ondansetron HCl (Zofran Inj) 4 mg Q6H PRN IV NAUSEA AND/OR VOMITING; Start at 15:00 Nitroglycerin (Nitroglycerin (Sl Tab) 0.4 Mg) 1 tab Q5M PRN SL CHEST PAIN; Start 09/28/16 at 15:00 Acetaminophen (Tylenol Liquid) 650 mg Q6H PRN PO PAIN LEVEL 1-3 OR FEVER; Start 09/28/16 at 15:00 Acetaminophen (Tylenol Tab) 650 mg Q6H PRN PO PAIN LEVEL 1-3 OR FEVER; Start at 15:00 Morphine Sulfate (morphine) 2 mg Q4H PRN IV PAIN LEVEL 7-10 Last administered on 09/29/16t 02:30; Admin Dose 2 MG; Start 09/28/16 at 15:00 Lorazepam (Ativan) 1 mg Q2H PRN IV ANXIETY; Start 09/28/16 at 15:00 Docusate Sodium (Colace) 100 mg Q12H PRN PO CONSTIPATION; Start 09/28/16 at 15: 00 Famotidine (Pepcid) 20 mg Q12 PO Last administered on 10/05/16 08:54; Admin Dose 20 MG; Start 09/28/16 at 21:00 Enoxaparin Sodium (Lovenox) 40 mg DAILY SC Last administered on 10/05/16 09:00 ; Admin Dose 40 MG; Start 09/29/16 at 09:00 Aspirin (Aspirin) 81 mg DAILY PO Last administered on 10/05/16 08:54; Admin Dose 81 MG; Start 09/29/16 at 09:00 Atorvastatin Calcium (Lipitor) 10 mg QHS PO Last administered on 10/04/16 20: 23; Admin Dose 10 MG; Start 09/28/16 at 21:00 Clopidogrel Bisulfate (plaVIX) 75 mg DAILY PO Last administered on 10/05/16 08 :54; Admin Dose 75 MG; Start 09/29/16 at 09:00 Furosemide (Lasix) 40 mg DAILY PO Last administered on 10/05/16 08:54; Admin Dose 40 MG; Start 09/29/16 at 09:00 Lisinopril (Zestril) 5 mg DAILY PO Last administered on 10/05/16 08:55; Admin Dose 5 MG; Start 09/29/16 at 09:00 Metoprolol Succinate (Toprol Xl) 25 mg DAILY PO Last administered on 10/05/16 08:54; Admin Dose 25 MG; Start 09/29/16 at 09:00 Tiotropium [place] (Spiriva) 1 inh DAILY INH ; Start 09/28/16 at 16:00; Status Future Hold Hydralazine HCl (Apresoline) 10 mg Q6H PRN IV ELEVATED BLOOD PRESSURE Last administered on 10/03/16 18:26; Admin Dose 10 MG; Start 09/28/16 at 16:00 Mupirocin (Bactroban) 1 applic BID TOP Last administered on 10/03/16 09:55; Admin Dose 1 APPLIC; Start 09/30/16 at 09:00 Methylprednisolone Sodium Succinate 40 mg 40 mg Q6 IV Last administered on 10/05 05:24; Admin Dose 40 MG; Start 10/01/16 at 12:00 Imipenem/ Cilastatin Sodium 100 ml @ 100 mls/hr Q6 IVPB Last administered on 05:25; Admin Dose 100 MLS/HR; Start 10/01/16 at 14:30 Fluconazole (Diflucan 200 Mg/ NS (Pmx)) 100 ml @ 100 mls/hr Q24H IVPB Last administered on 10/04/16 16:44; Admin Dose 100 MLS/HR; Start 10/01/16 at 15:30 Insulin Glargine (Lantus) 9 unit HS SC Last administered on 10/04/16 20:25; Admin Dose 9 UNIT; Start 10/04/16 at 21:00 Diagnostic Test (Pha) (Accucheck) 1 ea 02 XX ; Start 10/05/16 at 02:00 Miscellaneous Information 1 ea NOTE XX ; Start 10/04/16 at 09:00 Glucose (Glutose) 15 gm Q15M PRN PO DECREASED GLUCOSE; Start 10/04/16 at 09:00 Glucose (Glutose) 22.5 gm Q15M PRN PO DECREASED GLUCOSE; Start 10/04/16 at 09: 00 Dextrose (D50w Syringe) 25 ml Q15M PRN IV DECREASED GLUCOSE; Start 10/04/16 at 09:00 Dextrose (D50w Syringe) 50 ml Q15M PRN IV DECREASED GLUCOSE; Start 10/04/16 at 09:00 Glucagon (Glucagen) 1 mg Q15M PRN IM DECREASED GLUCOSE; Start 10/04/16 at 09:00 Glucose (Glutose) 15 gm Q15M PRN BUCCAL DECREASED GLUCOSE; Start 10/04/16 at 09 :00 ROSE PÉREZ Oct 05, 2016 10:21
--- NOTE | 2016-10-05 14:11 | PN ---
Date/Time of Note Date/Time of Note DATE: 10/05/16 TIME: 13:59 Assessment/Plan VTE Prophylaxis VTE Prophylaxis Intervention: LMWH Lines/Catheters IV Catheter Type (from Nrsg): PICC Line Central line still needed: Yes Urinary Cath still in place: No Assessment/Plan Assessment/Plan 1. Atrial fibrillation with RVR, increase toprol XL to 50 mg/day, ? anticoagulant per cardiology 2. facility acquired pneumonia, with ESBL E. Coli, and Lauren albicans, improving on meropenem and diflucan 3. COPD exacerbation, neb, antibiotics, decrease steroid 4. Congestive heart failure, systolic, chronic, stable 5. Ischemic cardiomyopathy 6. CAD 7. s/p ICD, patient had shock like feeling, Dr. Rider consult, check ICD 8. Essential hypertension, stable 9. Dyslipidemia. Continue statin. 10. DVT prophylaxis on Lovenox. 11. GI prophylaxis: pepcid Subjective 24 Hr Interval Summary Free Text/Dictation no shortness of breath, no fever poking feeling on left upper chest Exam/Review of Systems Vital Signs Vitals Vital Signs Date Time Temp Pulse Resp B/P Pulse Ox O2 Delivery O2 Flow Rate FiO2 10/05/16 13:41 111 16 95 Nasal Cannula 2.0 10/05/16 11:22 97.9 165/84 10/03/16 11:10 35 Intake and Output 10/04/16 10/04/16 10/05/16 15:00 23:00 07:00 Intake Total 700 ml 800 ml Output Total 400 ml 750 ml Balance 300 ml 50 ml Exam Constitutional: alert, oriented, well developed Psych: nl mood/affect, no complaints Head: atraumatic, normocephalic Eyes: EOMI, PERRL, nl conjunctiva, nl lids, nl sclera ENMT: nl external ears & nose, nl lips & teeth, nl nasal mucosa & septum Neck: non-tender, supple Respiratory: clear to auscultation, normal air movement, No congested cough, No crackles/rales, No diminished breath sounds, No intercostal retraction, No labored breathing, No respirations, No tactile fremitus, No wheezing Cardiovascular: irregular rhythm, No S3, No S4, No bruits, No diastolic murmur, No edema, No gallop, No jugular venous distention (JVD), No murmurs/extra sounds, No rub, No systolic murmur Gastrointestinal: nl liver, spleen, non-tender, soft, No ascites, No bowel sounds, No distended, No firm, No hepatomegaly, No mass , No rebound or guarding, No splenomegaly, No surgical scars, No tender Musculoskeletal: nl extremities to inspection Extremities: normal pulses, No calf tenderness, No clubbing, No cyanosis, No edema, No palpable cord, No pitting pedal edema, No tenderness Neurological: [employer] II-XII intact, nl mental status, nl speech, nl strength Skin: nl turgor, rash or lesions Lymph: nl lymph nodes Results Result Diagram: 10/05/16 0605 10/05/16 0605 Results 24 hrs Laboratory Tests Test 10/04/16 16:33 10/04/16 20:15 10/05/16 01:57 10/05/16 06:05 Bedside Glucose 158 272 H 186 Anion Gap 12 Basophils # 0.0 Basophils % 0.1 Blood Morphology Comment Blood Urea Nitrogen 34 H Calcium Level 8.7 Carbon Dioxide Level 34 H Chloride Level 93 L Creatinine 0.57 L Eosinophils # 0.0 Eosinophils % 0.0 Glucose Level 114 # Hematocrit 32.5 L Hemoglobin 11.1 L Lymphocytes # 0.2 L Lymphocytes % 1.6 L Magnesium Level 2.0 Mean Corpuscular Hemoglobin 32.9 Mean Corpuscular Hemoglobin Concent 34.2 Mean Corpuscular Volume 96.2 Mean Platelet Volume 7.7 Monocytes # 0.6 Monocytes % 5.9 Neutrophils # 9.0 H Neutrophils % 92.4 H Nucleated Red Blood Cells # 0.0 Nucleated Red Blood Cells % 0.0 Phosphorus Level 2.5 Platelet Count 111 L Potassium Level 3.8 Red Blood Count 3.38 L Red Cell Distribution Width 15.7 H Sodium Level 135 White Blood Count 9.8 Test 10/05/16 07:46 10/05/16 11:41 Bedside Glucose 119 178 Medications Medications Current Medications IV Flush (NS 10 ml) 10 ml PRN PRN IV IV PROTOCOL; Start 09/28/16 at 14:00 Ondansetron HCl (Zofran Inj) 4 mg Q6H PRN IV NAUSEA AND/OR VOMITING; Start at 15:00 Nitroglycerin (Nitroglycerin (Sl Tab) 0.4 Mg) 1 tab Q5M PRN SL CHEST PAIN; Start 09/28/16 at 15:00 Acetaminophen (Tylenol Liquid) 650 mg Q6H PRN PO PAIN LEVEL 1-3 OR FEVER; Start 09/28/16 at 15:00 Acetaminophen (Tylenol Tab) 650 mg Q6H PRN PO PAIN LEVEL 1-3 OR FEVER; Start at 15:00 Morphine Sulfate (morphine) 2 mg Q4H PRN IV PAIN LEVEL 7-10 Last administered on 09/29/16 02:30; Admin Dose 2 MG; Start 09/28/16 at 15:00 Lorazepam (Ativan) 1 mg Q2H PRN IV ANXIETY; Start 09/28/16 at 15:00 Docusate Sodium (Colace) 100 mg Q12H PRN PO CONSTIPATION; Start 09/28/16 at 15: 00 Famotidine (Pepcid) 20 mg Q12 PO Last administered on 10/05/16 08:54; Admin Dose 20 MG; Start 09/28/16 at 21:00 Enoxaparin Sodium (Lovenox) 40 mg DAILY SC Last administered on 10/05/16 09:00 ; Admin Dose 40 MG; Start 09/29/16 at 09:00 Aspirin (Aspirin) 81 mg DAILY PO Last administered on 10/05/16 08:54; Admin Dose 81 MG; Start 09/29/16 at 09:00 Atorvastatin Calcium (Lipitor) 10 mg QHS PO Last administered on 10/04/16 20: 23; Admin Dose 10 MG; Start 09/28/16 at 21:00 Clopidogrel Bisulfate (plaVIX) 75 mg DAILY PO Last administered on 10/05/16 08 :54; Admin Dose 75 MG; Start 09/29/16 at 09:00 Furosemide (Lasix) 40 mg DAILY PO Last administered on 10/05/16 08:54; Admin Dose 40 MG; Start 09/29/16 at 09:00 Lisinopril (Zestril) 5 mg DAILY PO Last administered on 10/05/16 08:55; Admin Dose 5 MG; Start 09/29/16 at 09:00 Metoprolol Succinate (Toprol Xl) 25 mg DAILY PO Last administered on 10/05/16 08:54; Admin Dose 25 MG; Start 09/29/16 at 09:00 Tiotropium [place] (Spiriva) 1 inh DAILY INH ; Start 09/28/16 at 16:00; Status Future Hold Hydralazine HCl (Apresoline) 10 mg Q6H PRN IV ELEVATED BLOOD PRESSURE Last administered on 10/03/16 18:26; Admin Dose 10 MG; Start 09/28/16 at 16:00 Mupirocin 1 applic 1 applic BID TOP Last administered on 10/03/16 09:55; Admin Dose 1 APPLIC; Start 09/30/16 at 09:00 Imipenem/ Cilastatin Sodium 100 ml @ 100 mls/hr Q6 IVPB Last administered on 11:43; Admin Dose 100 MLS/HR; Start 10/01/16 at 14:30 Fluconazole (Diflucan 200 Mg/ NS (Pmx)) 100 ml @ 100 mls/hr Q24H IVPB Last administered on 10/04/16 16:44; Admin Dose 100 MLS/HR; Start 10/01/16 at 15:30 Insulin Glargine (Lantus) 9 unit HS SC Last administered on 10/04/16 20:25; Admin Dose 9 UNIT; Start 10/04/16 at 21:00 Diagnostic Test (Pha) (Accucheck) 1 ea 02 XX ; Start 10/05/16 at 02:00 Miscellaneous Information 1 ea NOTE XX ; Start 10/04/16 at 09:00 Glucose (Glutose) 15 gm Q15M PRN PO DECREASED GLUCOSE; Start 10/04/16 at 09:00 Glucose (Glutose) 22.5 gm Q15M PRN PO DECREASED GLUCOSE; Start 10/04/16 at 09: 00 Dextrose (D50w Syringe) 25 ml Q15M PRN IV DECREASED GLUCOSE; Start 10/04/16 at 09:00 Dextrose (D50w Syringe) 50 ml Q15M PRN IV DECREASED GLUCOSE; Start 10/04/16 at 09:00 Glucagon (Glucagen) 1 mg Q15M PRN IM DECREASED GLUCOSE; Start 10/04/16 at 09:00 Glucose (Glutose) 15 gm Q15M PRN BUCCAL DECREASED GLUCOSE; Start 10/04/16 at 09 :00 Prednisone (Prednisone) 30 mg DAILY PO ; Start 10/06/16 at 09:00 FUNMI MEZA MD Oct 05, 2016 14:09
--- NOTE | 2016-10-05 14:35 | PN ---
DATE: 10/05/2016 INFECTIOUS DISEASE PROGRESS NOTE SUBJECTIVE: No acute changes. The patient is awake, looks comfortable, no fevers. WBC today 9.8, platelets 114, neutrophils 92.4, BUN 34, creatinine 0.57. MICROBIOLOGY: Urine on admission grew Klebsiella, sputum culture grew E. coli ESBL Lauren albicans . Nares swab was positive for MRSA. ANTIMICROBIALS: The patient is currently on: 1. Fluconazole. 2. Imipenem. 3. Topical Bactroban to nares. PHYSICAL EXAMINATION: GENERAL: Well-developed, fragile, elderly man who is in no distress. HEENT: Head atraumatic, normocephalic. Sclerae anicteric. Buccal mucosa dry. NECK: Supple, trachea midline. CHEST: Rise symmetrical. Breath sounds with bilateral scattered rhonchi. HEART: S1, S2. ABDOMEN: Soft. Bowel tones present. EXTREMITIES: No cyanosis. ASSESSMENT: 1. Acute on chronic hypoxemic respiratory failure secondary to chronic obstructive pulmonary diseas e exacerbation and questionable healthcare-associated pneumonia. 2. Urinary tract infection. 3. Congestive heart failure. 4. Ischemic cardiomyopathy with a history of automatic implantable cardioverter defibrillator. 5. History of coronary artery stenting. 6. Methicillin-resistant Staphylococcus aureus nares colonization. PLAN: The patient remains stable, overall improving. PLAN: The patient remains stable, overall improving. We are going to change imipenem to Invanz onc e daily. Continue fluconazole, Bactroban to nares. Steroid taper, bronchodilators. Dictated By: CODY BRANCH [employer]SM[employer]DER for ASAD KEITA/NANDO Conf#: [id number] DID#: [id number]
[2016-10-05] MEDS: FLUCONAZOLE 200 MG TAB PO SCH (15:48)
[2016-10-05] MEDS: ERTAPENEM SODIUM 1 GM in SOD CHLORIDE 0.9% 100 ML IVPB SCH (16:38)
[2016-10-05] MEDS ORDERED: METOPROLOL 5 MG INJ IV PRN (19:30)
[2016-10-05] MEDS: DIGOXIN 500 MCG INJ IV SCH (20:02)
[2016-10-05] MEDS: ATORVASTATIN 10 MG TAB PO SCH (20:11)
[2016-10-05] MEDS ORDERED: METOPROLOL (XL) 25 MG TAB PO SCH (21:00)
[2016-10-05] MEDS: INSULIN GLARGINE [LANtus] 3 ML PEN SC SCH (22:16)
[2016-10-06] VITALS (11 sets, daily range): BP systolic 119–139; BP diastolic 74–89; PULSE 99–158; RESP 18–22
[2016-10-06] MEDS: DIGOXIN 500 MCG INJ IV SCH ×2 (01:01→06:00)
--- NOTE | 2016-10-06 01:35 | CONS ---
DATE OF ADMISSION: 09/28/2016 DATE OF CONSULTATION: 10/05/2016 TYPE OF CONSULTATION: Cardiology. REASON FOR CONSULTATION: SVT consistent with atrial fibrillation, rapid ventricular response as wel l as cardiomyopathy and possible AICD discharge. REQUESTING PHYSICIAN: Dr. Cote from the hospitalist service. HISTORY OF PRESENT ILLNESS: Mr. Nuñez is a 66-year-old male with history of hypertension, dyslipide cuong, chronic obstructive pulmonary disease, diabetes mellitus, cardiomyopathy, decreased left ventri cular ejection, AICD implant, coronary artery disease, recent leg fracture who initially presented 0 09/28/2016 with complaints of shortness of breath. Initially upon arrival, the patient was hypoxic w ith an O2 sat on room air of 69%, had an ABG with a pH of 7.269, a pCO2 of 94, a ____ of 57 consiste nt with hypercarbic respiratory failure. The patient was placed on BiPAP but continued to become mo re hypoxic and somnolent and therefore required intubation. The patient was treated with antibiotic s, bronchodilators and steroids and has been extubated and transferred to the floor. Since transfer to the floor, patient has been monitored on telemetry revealing atrial fibrillation with rapid vent ricular response. Given these findings, cardiology consult requested. Additionally, the patient st ates he believes he had an AICD discharge. PAST MEDICAL HISTORY: As above in HPI. MEDICATIONS CURRENTLY IN HOSPITAL: 1. Prednisone ____ mg daily. 2. Zestril 10 mg daily. 3. Toprol-XL 50 mg daily. 4. Ertapenem. 5. Fluconazole 200 mg daily. 6. Lantus insulin sliding scale. 7. DuoNeb. 8. Lovenox ____ mg subQ daily. 9. Aspirin 81 daily. 10. Plavix 75 mg daily. 11. Lasix 40 mg daily. 12. Pepcid 20 mg q.12. 13. Lipitor 20 mg at bedtime. 14. Hydralazine p.r.n. 15. Zofran p.r.n. 16. Nitroglycerin p.r.n. 17. Tylenol p.r.n. 18. Ativan p.r.n. 19. Colace p.r.n. ALLERGIES: NO KNOWN DRUG ALLERGIES. SOCIAL HISTORY: Positive tobacco, social ETOH. No illicit drug use. FAMILY HISTORY: Negative for sudden cardiac or early CAD. REVIEW OF SYSTEMS: As above in HPI. CONSTITUTIONAL: No fevers, chills. PULMONARY: Shortness of breath. CARDIOVASCULAR: No current chest pain. Positive palpitations. GASTROINTESTINAL: No vomiting. GENITOURINARY: No hematuria. MUSCULOSKELETAL: Degenerative joint disease. PSYCHIATRIC: The patient denies depression. NEUROLOGIC: No documented history of CVA. PHYSICAL EXAMINATION: VITAL SIGNS: Temperature 98.4. Blood pressure most recently 150/70. Pulse 135, atrial fibrillatio n. Saturating 90% on 2 L. GENERAL: The patient is alert, awake, complaining of shortness of breath, palpitations. NECK: JVP approximately 9 cm of water. CHEST: Bibasilar crackles. HEART: Tachycardic, irregularly irregular. I/ systolic murmur. Laterally displaced PMI. ABDOMEN: Positive bowel sounds, soft. EXTREMITIES: 2+ pitting edema bilaterally. Difficult to palpate distal pulses bilaterally at poste rior tibial. LABORATORY DATA: As above in HPI with most recent from today: White cell count 9.8, hemoglobin 11. 1, platelet count of 111. Sodium 135, potassium 3.8, creatinine 0.5, BUN 34. ABG from the rev ealing a pH of 7.4, a PaO2 of 73, a pCO2 of 55. INR 1.0. UA borderline positive. IMAGING STUDIES: Chest x-ray from the revealing small bilateral pleural effusions, mild pulmon obdulio edema, bibasilar atelectasis. IMPRESSION: 1. Atrial fibrillation with rapid ventricular response. 2. Congestive heart failure, systolic, acute on chronic. 3. History of cardiomyopathy with decreased left ventricular ejection fraction 20% to 25% per chart biopsy. 4. Shortness of breath. 5. Status post hypercapnic respiratory failure, status post extubation. 6. Chronic obstructive pulmonary disease. 7. Hypertension. 8. Dyslipidemia. 9. History of automatic implantable cardioverter-defibrillator with possible discharge. 10. Pneumonia. RECOMMENDATIONS: 1. At this time would maintain the patient on telemetry monitoring to follow rhythm and rate contro l closely. 2. Continue the patient's current Zestril and continue the patient's Toprol with up titration to im prove overall heart rate control. Also give patient digoxin loading additionally to improve heart r ate control and will maintain the patient on aspirin and Plavix at this time and low-dose Lovenox, p revention of thrombolic complications in setting of atrial fibrillation, elevated CHADS score. The patient at increased risk for thromboembolic complications in setting of atrial fibrillation. 3. Check an echo to re-assess the patient's ejection fraction. 4. Will continue the patient's Lasix diuresis, following strict I's and O's to grade diuresis close ly. 5. Additionally continue statin, adjust according to a fasting lipid panel to be checked and will c ontinue the patient's antibiotics, steroids and bronchodilators, following respiratory status closel y. Thank you for allowing me to take part in the care of this patient. I will continue to follow along very closely with further recommendations to be made as the patient progresses through his [facility] clinical course. Dictated By: СВЕТЛАНА KU/NANDO Conf#: [id number] DID#: [id number] CC: CRISTINA COTE MD;*End*
[2016-10-06] MEDS: ALBUTEROL/IPRATROPIUM (NEB) 3 ML AMP HHN SCH ×4 (01:37→20:20)
[2016-10-06] MEDS: ACCU-CHEK XX SCH (02:00)
[2016-10-06 02:53] LABS: CK-MB 6.02 ng/ml (0.0-2.4)
[2016-10-06 02:54] LABS: TROPONIN-I 0.209 ng/ml (0.00-0.12)
[2016-10-06 07:13] LABS: POTASSIUM 3.6 mmol/L (3.5-5.1)
[2016-10-06 07:15] LABS: CREATININE 0.56 mg/dl (0.61-1.24)
[2016-10-06 07:16] LABS: CALCIUM 8.9 mg/dl (8.4-10.2)
[2016-10-06 07:27] LABS: EOSINOPHILS % 0.3 % (0.0-7.0); HEMATOCRIT 34.6 % (42.0-52.0); HEMOGLOBIN 11.5 g/dl (14.0-18.0); LYMPHOCYTES # 0.8 10^3/ul (0.8-2.9); LYMPHOCYTES % 5.5 % (15.0-51.0); MEAN CORPUSCULAR HEMOGLOBIN 32.7 pg (29.0-33.0); MEAN CORPUSCULAR HGB CONC 33.4 g/dl (32.0-37.0); MEAN CORPUSCULAR VOLUME 97.9 fl (82.0-101.0); MEAN PLATELET VOLUME 7.4 fl (7.4-10.4); MONOCYTE # 0.7 10^3/ul (0.3-0.9); MONOCYTES % 5.3 % (0.0-11.0); NEUTROPHIL # 12.4 10^3/ul (1.6-7.5); NEUTROPHILS % 88.9 % (39.0-77.0); PLATELET COUNT 147 10^3/UL (140-440); RED BLOOD COUNT 3.53 10^6/ul (4.70-6.10); UNCORRECTED WBC 13.9 10^3/ul (4.8-10.8); WHITE BLOOD COUNT 13.9 10^3/ul (4.8-10.8)
[2016-10-06 07:49] LABS: CONDITION 1; LH ANALYZER COMMENTS 1
[2016-10-06] MEDS: INSULIN ASPART [NOVOLOG] 3 ML PEN SC SCH ×7 (07:55→21:00)
[2016-10-06 07:58] LABS: CK-MB 6.68 ng/ml (0.0-2.4); TROPONIN-I 0.201 ng/ml (0.00-0.12)
[2016-10-06 08:22] LABS: MAGNESIUM 1.9 mg/dl (1.7-2.5); PHOSPHORUS 2.5 mg/dl (2.5-4.9)
[2016-10-06] MEDS: MUPIROCIN 2% 22 GM OINT TOP SCH ×2 (09:00→20:56)
[2016-10-06] MEDS: ASPIRIN 81 MG TAB PO SCH (09:25)
[2016-10-06] MEDS: METOPROLOL (XL) 25 MG TAB PO SCH (09:26)
[2016-10-06] MEDS: FAMOTIDINE 20 MG TAB PO SCH ×2 (09:26→20:56)
[2016-10-06] MEDS: FLUCONAZOLE 200 MG TAB PO SCH (09:26)
[2016-10-06] MEDS: predniSONE 10 MG TAB PO SCH (09:26)
[2016-10-06] MEDS: FUROSEMIDE 40 MG TAB PO SCH (09:26)
[2016-10-06] MEDS: CLOPIDOGREL 75 MG TAB PO SCH (09:26)
[2016-10-06] MEDS: LISINOPRIL 5 MG TAB PO SCH (09:27)
[2016-10-06] MEDS: ENOXAPARIN 40 MG/0.4 ML SYG SC SCH (09:31)
--- NOTE | 2016-10-06 11:08 | CONS ---
Date/Time of Note Date/Time of Note DATE: 10/06/16 TIME: 11:05 Assessment/Plan Assessment/Plan Additional Assessment/Plan Assessment and recommendations; 1. Patient admitted for severe bilateral pneumonia with respiratory failure no successfully extubated doing very well. 2. Underlying history of severe COPD with frequent flareups. Resulting in hypercapnic hypoxemic respiratory failure. Next 3. Underlying cardiomyopathy currently compensated. 4. Recent right toe fracture, foot in a cast. 5. History of diabetes, hypertension; both clinically compensated. Continue current treatment. Patient will need to be on BiPAP at home at least nocturnally. Consultation Date/Type/Reason Admit Date/Time Sep 28, 2016 at 14:41 Initial Consult Date 09/28/16 Type of Consultation: pulm 24 HR Interval Summary Free Text/Dictation Patient condition is stable. Denies any shortness of breath, wheezing. Any chest pain. Patient also denies any coughing, sputum production. He is able to eat well. Currently sitting in a chair by bedside. General examination; middle-aged gentleman awake alert currently in no distress. Exam/Review of Systems Vital Signs Vitals Vital Signs Date Time Temp Pulse Resp B/P Pulse Ox O2 Delivery O2 Flow Rate FiO2 10/06/16 08:25 97 4.0 10/06/16 08:25 75 18 Nasal Cannula 10/06/16 07:22 97.9 130/74 10/03/16 11:10 35 Intake and Output 10/05/16 10/05/16 10/06/16 15:00 23:00 07:00 Intake Total 1350 ml 500 ml Output Total 1600 ml 650 ml Balance -250 ml -150 ml Exam HEENT examination; supple neck. No JVD. Midline trachea. Pharynx is clear. Pupils are small bilaterally. No neck masses. Chest examination; clear to auscultation bilaterally. S1-S2 audible no murmurs regular rhythm. Abdomen examination; soft, nontender. Bowel sounds audible. No organomegaly. Extremity examination; no peripheral edema. Right foot is in a cast. Patient does have bilateral Dupuytren's contractures. [employer] examination; no focal deficit. Results Result Diagram: 10/06/16 0625 10/06/16 0625 Results 24 hrs Laboratory Tests Test 10/05/16 11:41 10/05/16 17:05 10/05/16 22:10 10/06/16 02:05 Bedside Glucose 178 124 87 Creatine Kinase 78 Creatine Kinase Index 7.7 Creatinine Kinase MB (Mass) 6.02 H Troponin I 0.209 *H Test 10/06/16 05:00 10/06/16 06:25 10/06/16 08:01 Magnesium Level 1.9 Phosphorus Level 2.5 Anion Gap 11 Basophils # 0.0 Basophils % 0.0 Blood Morphology Comment Blood Urea Nitrogen 33 H Calcium Level 8.9 Carbon Dioxide Level 38 H Chloride Level 90 L Creatine Kinase 83 Creatine Kinase Index 8.0 Creatinine 0.56 L Creatinine Kinase MB (Mass) 6.68 H Eosinophils # 0.0 Eosinophils % 0.3 Glucose Level 61 #L Hematocrit 34.6 L Hemoglobin 11.5 L Lymphocytes # 0.8 Lymphocytes % 5.5 L Mean Corpuscular Hemoglobin 32.7 Mean Corpuscular Hemoglobin Concent 33.4 Mean Corpuscular Volume 97.9 Mean Platelet Volume 7.4 Monocytes # 0.7 Monocytes % 5.3 Neutrophils # 12.4 H Neutrophils % 88.9 H Nucleated Red Blood Cells # 0.0 Nucleated Red Blood Cells % 0.0 Platelet Count 147 # Potassium Level 3.6 Red Blood Count 3.53 L Red Cell Distribution Width 16.0 H Sodium Level 135 Troponin I 0.201 *H White Blood Count 13.9 #H Bedside Glucose 76 Medications Medications Current Medications IV Flush (NS 10 ml) 10 ml PRN PRN IV IV PROTOCOL; Start 09/28/16 at 14:00 Ondansetron HCl (Zofran Inj) 4 mg Q6H PRN IV NAUSEA AND/OR VOMITING; Start at 15:00 Nitroglycerin (Nitroglycerin (Sl Tab) 0.4 Mg) 1 tab Q5M PRN SL CHEST PAIN; Start 09/28/16 at 15:00 Acetaminophen (Tylenol Liquid) 650 mg Q6H PRN PO PAIN LEVEL 1-3 OR FEVER; Start 09/28/16 at 15:00 Acetaminophen (Tylenol Tab) 650 mg Q6H PRN PO PAIN LEVEL 1-3 OR FEVER; Start at 15:00 Morphine Sulfate (morphine) 2 mg Q4H PRN IV PAIN LEVEL 7-10 Last administered on 09/29/16t 02:30; Admin Dose 2 MG; Start 09/28/16 at 15:00 Lorazepam (Ativan) 1 mg Q2H PRN IV ANXIETY; Start 09/28/16 at 15:00 Docusate Sodium (Colace) 100 mg Q12H PRN PO CONSTIPATION; Start 09/28/16 at 15: 00 Famotidine (Pepcid) 20 mg Q12 PO Last administered on 10/06/16 09:26; Admin Dose 20 MG; Start 09/28/16 at 21:00 Enoxaparin Sodium (Lovenox) 40 mg DAILY SC Last administered on 10/06/16 09:31 ; Admin Dose 40 MG; Start 09/29/16 at 09:00 Aspirin (Aspirin) 81 mg DAILY PO Last administered on 10/06/16 09:25; Admin Dose 81 MG; Start 09/29/16 at 09:00 Atorvastatin Calcium (Lipitor) 10 mg QHS PO Last administered on 10/05/16 20: 11; Admin Dose 10 MG; Start 09/28/16 at 21:00 Clopidogrel Bisulfate (plaVIX) 75 mg DAILY PO Last administered on 10/06/16 09 :26; Admin Dose 75 MG; Start 09/29/16 at 09:00 Furosemide (Lasix) 40 mg DAILY PO Last administered on 10/06/16 09:26; Admin Dose 40 MG; Start 09/29/16 at 09:00 Tiotropium [place] (Spiriva) 1 inh DAILY INH ; Start 09/28/16 at 16:00; Status Future Hold Hydralazine HCl (Apresoline) 10 mg Q6H PRN IV ELEVATED BLOOD PRESSURE Last administered on 10/03/16 18:26; Admin Dose 10 MG; Start 09/28/16 at 16:00 Mupirocin (Bactroban) 1 applic BID TOP Last administered on 10/03/16 09:55; Admin Dose 1 APPLIC; Start 09/30/16 at 09:00 Insulin Glargine (Lantus) 9 unit HS SC Last administered on 10/05/16 22:16; Admin Dose 9 UNIT; Start 10/04/16 at 21:00 Diagnostic Test (Pha) (Accucheck) 1 ea 02 XX ; Start 10/05/16 at 02:00 Miscellaneous Information 1 ea NOTE XX ; Start 10/04/16 at 09:00 Glucose (Glutose) 15 gm Q15M PRN PO DECREASED GLUCOSE; Start 10/04/16 at 09:00 Glucose (Glutose) 22.5 gm Q15M PRN PO DECREASED GLUCOSE; Start 10/04/16 at 09: 00 Dextrose (D50w Syringe) 25 ml Q15M PRN IV DECREASED GLUCOSE; Start 10/04/16 at 09:00 Dextrose (D50w Syringe) 50 ml Q15M PRN IV DECREASED GLUCOSE; Start 10/04/16 at 09:00 Glucagon (Glucagen) 1 mg Q15M PRN IM DECREASED GLUCOSE; Start 10/04/16 at 09:00 Glucose (Glutose) 15 gm Q15M PRN BUCCAL DECREASED GLUCOSE; Start 10/04/16 at 09 :00 Prednisone (Prednisone) 30 mg DAILY PO Last administered on 10/06/16 09:26; Admin Dose 30 MG; Start 10/06/16 at 09:00 Lisinopril (Zestril) 10 mg DAILY PO Last administered on 10/06/16 09:27; Admin Dose 10 MG; Start 10/06/16 at 09:00 Metoprolol Succinate 50 mg 50 mg DAILY PO Last administered on 10/06/16 09:26 ; Admin Dose 50 MG; Start 10/06/16 at 09:00 Ertapenem/Sodium Chloride (Invanz/NS) 100 ml @ 200 mls/hr Q24H IVPB Last administered on 10/05/16 16:38; Admin Dose 200 MLS/HR; Start 10/05/16 at 16:00 Fluconazole (Diflucan) 200 mg DAILY PO Last administered on 10/06/16 09:26; Admin Dose 200 MG; Start 10/05/16 at 16:00 Metoprolol Succinate (Toprol Xl) 25 mg HS PO Last administered on 10/05/16 20: 12; Admin Dose 25 MG; Start 10/05/16 at 21:00 Metoprolol Tartrate (Lopressor) 5 mg Q4 PRN IV HR>110 Hold SBP<100; Start 10/05 at 19:30 ROSE PÉREZ Oct 06, 2016 11:08
--- NOTE | 2016-10-06 14:06 | PN ---
Date/Time of Note Date/Time of Note DATE: 10/06/16 TIME: 14:00 Assessment/Plan VTE Prophylaxis VTE Prophylaxis Intervention: LMWH Lines/Catheters IV Catheter Type (from Nrs): PICC Line Central line still needed: No Urinary Cath still in place: No Assessment/Plan Assessment/Plan 1. Atrial fibrillation with RVR, increase toprol XL to 50 mg/day, rate is better controlled today, follow up with cardiology 2. Mildly elevated troponin, ?tachycardia related, follow up with cardiology 3. facility acquired pneumonia, with ESBL E. Coli, and Lauren albicans, improving on meropenem and diflucan 4. COPD exacerbation, neb, antibiotics, decrease steroid 5. Congestive heart failure, systolic, chronic, stable 6. Ischemic cardiomyopathy 7. CAD 8. s/p ICD, stable 9. Essential hypertension, stable 10. Dyslipidemia. Continue statin. 11. DVT prophylaxis on Lovenox. 12. GI prophylaxis: pepcid Subjective 24 Hr Interval Summary Free Text/Dictation No chest pain. some SOB and asks for neb Exam/Review of Systems Vital Signs Vitals Vital Signs Date Time Temp Pulse Resp B/P Pulse Ox O2 Delivery O2 Flow Rate FiO2 10/06/16 11:30 97.9 79 18 137/85 97 10/06/16 08:25 4.0 10/06/16 08:25 Nasal Cannula 10/03/16 11:10 35 Intake and Output 10/05/16 10/05/16 10/06/16 15:00 23:00 07:00 Intake Total 1350 ml 500 ml Output Total 1600 ml 650 ml Balance -250 ml -150 ml Exam Constitutional: alert, oriented, well developed Psych: nl mood/affect, no complaints Head: atraumatic, normocephalic Eyes: EOMI, PERRL, nl conjunctiva, nl lids, nl sclera ENMT: mucosa pink and moist, nl external ears & nose, nl lips & teeth, nl nasal mucosa & septum Neck: non-tender, supple Respiratory: clear to auscultation, diminished breath sounds Cardiovascular: irregular rhythm, No S3, No S4, No bruits, No diastolic murmur, No edema, No gallop, No jugular venous distention (JVD), No murmurs/extra sounds, No nl pulses, No rub, No systolic murmur Gastrointestinal: nl liver, spleen, non-tender, soft, No ascites, No bowel sounds, No distended, No firm, No hepatomegaly, No mass , No rebound or guarding, No splenomegaly, No surgical scars, No tender Musculoskeletal: nl extremities to inspection Extremities: normal pulses, No calf tenderness, No clubbing, No cyanosis, No edema, No palpable cord, No pitting pedal edema, No tenderness Neurological: nl mental status, nl speech, nl strength Skin: nl turgor, rash or lesions Lymph: nl lymph nodes Results Result Diagram: 10/06/1625 10/06/16 0625 Results 24 hrs Laboratory Tests Test 10/05/16 17:05 10/05/16 22:10 10/06/16 02:05 10/06/16 05:00 Bedside Glucose 124 87 Creatine Kinase 78 Creatine Kinase Index 7.7 Creatinine Kinase MB (Mass) 6.02 H Troponin I 0.209 *H Magnesium Level 1.9 Phosphorus Level 2.5 Test 10/06/16 06:25 10/06/16 08:01 10/06/16 12:41 Anion Gap 11 Basophils # 0.0 Basophils % 0.0 Blood Morphology Comment Blood Urea Nitrogen 33 H Calcium Level 8.9 Carbon Dioxide Level 38 H Chloride Level 90 L Creatine Kinase 83 Creatine Kinase Index 8.0 Creatinine 0.56 L Creatinine Kinase MB (Mass) 6.68 H Eosinophils # 0.0 Eosinophils % 0.3 Glucose Level 61 #L Hematocrit 34.6 L Hemoglobin 11.5 L Lymphocytes # 0.8 Lymphocytes % 5.5 L Mean Corpuscular Hemoglobin 32.7 Mean Corpuscular Hemoglobin Concent 33.4 Mean Corpuscular Volume 97.9 Mean Platelet Volume 7.4 Monocytes # 0.7 Monocytes % 5.3 Neutrophils # 12.4 H Neutrophils % 88.9 H Nucleated Red Blood Cells # 0.0 Nucleated Red Blood Cells % 0.0 Platelet Count 147 # Potassium Level 3.6 Red Blood Count 3.53 L Red Cell Distribution Width 16.0 H Sodium Level 135 Troponin I 0.201 *H White Blood Count 13.9 #H Bedside Glucose 76 84 Medications Medications Current Medications IV Flush (NS 10 ml) 10 ml PRN PRN IV IV PROTOCOL; Start 09/28/16 at 14:00 Ondansetron HCl (Zofran Inj) 4 mg Q6H PRN IV NAUSEA AND/OR VOMITING; Start at 15:00 Nitroglycerin (Nitroglycerin (Sl Tab) 0.4 Mg) 1 tab Q5M PRN SL CHEST PAIN; Start 09/28/16 at 15:00 Acetaminophen (Tylenol Liquid) 650 mg Q6H PRN PO PAIN LEVEL 1-3 OR FEVER; Start 09/28/16 at 15:00 Acetaminophen (Tylenol Tab) 650 mg Q6H PRN PO PAIN LEVEL 1-3 OR FEVER; Start at 15:00 Morphine Sulfate (morphine) 2 mg Q4H PRN IV PAIN LEVEL 7-10 Last administered on 09/29/16 02:30; Admin Dose 2 MG; Start 09/28/16 at 15:00 Lorazepam (Ativan) 1 mg Q2H PRN IV ANXIETY; Start 09/28/16 at 15:00 Docusate Sodium (Colace) 100 mg Q12H PRN PO CONSTIPATION; Start 09/28/16 at 15: 00 Famotidine (Pepcid) 20 mg Q12 PO Last administered on 10/06/16 09:26; Admin Dose 20 MG; Start 09/28/16 at 21:00 Enoxaparin Sodium (Lovenox) 40 mg DAILY SC Last administered on 10/06/16 09:31 ; Admin Dose 40 MG; Start 09/29/16 at 09:00 Aspirin (Aspirin) 81 mg DAILY PO Last administered on 10/06/16 09:25; Admin Dose 81 MG; Start 09/29/16 at 09:00 Atorvastatin Calcium (Lipitor) 10 mg QHS PO Last administered on 10/05/16 20: 11; Admin Dose 10 MG; Start 09/28/16 at 21:00 Clopidogrel Bisulfate (plaVIX) 75 mg DAILY PO Last administered on 10/06/16 09 :26; Admin Dose 75 MG; Start 09/29/16 at 09:00 Furosemide (Lasix) 40 mg DAILY PO Last administered on 10/06/16 09:26; Admin Dose 40 MG; Start 09/29/16 at 09:00 Tiotropium [place] (Spiriva) 1 inh DAILY INH ; Start 09/28/16 at 16:00; Status Future Hold Hydralazine HCl (Apresoline) 10 mg Q6H PRN IV ELEVATED BLOOD PRESSURE Last administered on 10/03/16 18:26; Admin Dose 10 MG; Start 09/28/16 at 16:00 Mupirocin (Bactroban) 1 applic BID TOP Last administered on 10/03/16 09:55; Admin Dose 1 APPLIC; Start 09/30/16 at 09:00 Insulin Glargine (Lantus) 9 unit HS SC Last administered on 10/05/16 22:16; Admin Dose 9 UNIT; Start 10/04/16 at 21:00 Diagnostic Test (Pha) (Accucheck) 1 ea 02 XX ; Start 10/05/16 at 02:00 Miscellaneous Information 1 ea NOTE XX ; Start 10/04/16 at 09:00 Glucose (Glutose) 15 gm Q15M PRN PO DECREASED GLUCOSE; Start 10/04/16 at 09:00 Glucose (Glutose) 22.5 gm Q15M PRN PO DECREASED GLUCOSE; Start 10/04/16 at 09: 00 Dextrose (D50w Syringe) 25 ml Q15M PRN IV DECREASED GLUCOSE; Start 10/04/16 at 09:00 Dextrose (D50w Syringe) 50 ml Q15M PRN IV DECREASED GLUCOSE; Start 10/04/16 at 09:00 Glucagon (Glucagen) 1 mg Q15M PRN IM DECREASED GLUCOSE; Start 10/04/16 at 09:00 Glucose (Glutose) 15 gm Q15M PRN BUCCAL DECREASED GLUCOSE; Start 10/04/16 at 09 :00 Prednisone (Prednisone) 30 mg DAILY PO Last administered on 10/06/16 09:26; Admin Dose 30 MG; Start 10/06/16 at 09:00 Lisinopril (Zestril) 10 mg DAILY PO Last administered on 10/06/16 09:27; Admin Dose 10 MG; Start 10/06/16 at 09:00 Metoprolol Succinate 50 mg 50 mg DAILY PO Last administered on 10/06/16 09:26 ; Admin Dose 50 MG; Start 10/06/16 at 09:00 Ertapenem/Sodium Chloride (Invanz/NS) 100 ml @ 200 mls/hr Q24H IVPB Last administered on 10/05/16 16:38; Admin Dose 200 MLS/HR; Start 10/05/16 at 16:00 Fluconazole (Diflucan) 200 mg DAILY PO Last administered on 1/31/17at 09:26; Admin Dose 200 MG; Start 10/05/16 at 16:00 Metoprolol Succinate (Toprol Xl) 25 mg HS PO Last administered on 10/05/16t 20: 12; Admin Dose 25 MG; Start 10/05/16 at 21:00 Metoprolol Tartrate (Lopressor) 5 mg Q4 PRN IV HR>110 Hold SBP<100; Start 10/05 at 19:30 FUNMI MEZA MD Oct 06, 2016 14:06
--- NOTE | 2016-10-06 15:58 | CONS ---
Date/Time of Note Date/Time of Note DATE: 10/06/16 TIME: 15:48 Assessment/Plan Assessment/Plan Chief Complaint/Hosp Course IMPRESSION: 1. Atrial fibrillation with rapid ventricular response.-improved HR s/p digoxin / 2. Congestive heart failure, systolic, acute on chronic. 3. History of cardiomyopathy with decreased left ventricular ejection fraction 20% to 25% per chart biopsy. 4. Shortness of breath. 5. Status post hypercapnic respiratory failure, status post extubation. 6. Chronic obstructive pulmonary disease. 7. Hypertension. 8. Dyslipidemia. 9. History of automatic implantable cardioverter-defibrillator with possible discharge. 10. Pneumonia. Recc -Tele -serial ecg's -Continue asa/plavix -Continue BB and increase to improve HR control -Continue ACEI -Start PO digoxin -Continue statin Problems: Consultation Date/Type/Reason Admit Date/Time Sep 28, 2016 at 14:41 Initial Consult Date 09/28/16 Type of Consultation: cardiology Reason for Consultation AF Referring Provider: BAKARI MEZA MD Exam/Review of Systems Vital Signs Vitals Vital Signs Date Time Temp Pulse Resp B/P Pulse Ox O2 Delivery O2 Flow Rate FiO2 10/06/16 15:33 98.0 78 21 119/78 97 10/06/16 14:06 Nasal Cannula 2.0 10/03/16 11:10 35 Intake and Output 10/05/16 10/05/16 10/06/16 15:00 23:00 07:00 Intake Total 1350 ml 500 ml Output Total 1600 ml 650 ml Balance -250 ml -150 ml Exam Review of Systems: CONSTITUTIONAL: No fevers, chills. PULMONARY: No sob CARDIOVASCULAR: No chest pain/palpitations GASTROINTESTINAL: No nausea/vomiting. GENITOURINARY: No hematuria/dysuria. MUSCULOSKELETAL: No myagias/arthalgias. PSYCHIATRIC: The patient denies depression. NEUROLOGIC: No weakness Constitutional: alert Psych: no complaints Head: normocephalic ENMT: mucosa pink and moist Neck: jvd (9 cm water), supple Respiratory: diminished breath sounds (at bases/B) Cardiovascular: irregular rhythm Gastrointestinal: non-tender, soft Musculoskeletal: muscle tone (normal) Extremities: other (Leg in cast) Neurological: other (no focalk deficits) Results Result Diagram: 10/06/1662410/06/16624 Results 24 hrs Laboratory Tests Test 1/30/17 17:05 10/05/16 22:10 10/06/16 02:05 10/06/16 05:00 Bedside Glucose 124 87 Creatine Kinase 78 Creatine Kinase Index 7.7 Creatinine Kinase MB (Mass) 6.02 H Troponin I 0.209 *H Magnesium Level 1.9 Phosphorus Level 2.5 Test 10/06/16 06:25 10/06/16 08:01 10/06/16 12:41 Anion Gap 11 Basophils # 0.0 Basophils % 0.0 Blood Morphology Comment Blood Urea Nitrogen 33 H Calcium Level 8.9 Carbon Dioxide Level 38 H Chloride Level 90 L Creatine Kinase 83 Creatine Kinase Index 8.0 Creatinine 0.56 L Creatinine Kinase MB (Mass) 6.68 H Eosinophils # 0.0 Eosinophils % 0.3 Glucose Level 61 #L Hematocrit 34.6 L Hemoglobin 11.5 L Lymphocytes # 0.8 Lymphocytes % 5.5 L Mean Corpuscular Hemoglobin 32.7 Mean Corpuscular Hemoglobin Concent 33.4 Mean Corpuscular Volume 97.9 Mean Platelet Volume 7.4 Monocytes # 0.7 Monocytes % 5.3 Neutrophils # 12.4 H Neutrophils % 88.9 H Nucleated Red Blood Cells # 0.0 Nucleated Red Blood Cells % 0.0 Platelet Count 147 # Potassium Level 3.6 Red Blood Count 3.53 L Red Cell Distribution Width 16.0 H Sodium Level 135 Troponin I 0.201 *H White Blood Count 13.9 #H Bedside Glucose 76 84 Medications Medications Current Medications IV Flush (NS 10 ml) 10 ml PRN PRN IV IV PROTOCOL; Start 09/28/16 at 14:00 Ondansetron HCl (Zofran Inj) 4 mg Q6H PRN IV NAUSEA AND/OR VOMITING; Start at 15:00 Nitroglycerin (Nitroglycerin (Sl Tab) 0.4 Mg) 1 tab Q5M PRN SL CHEST PAIN; Start 09/28/16 at 15:00 Acetaminophen (Tylenol Liquid) 650 mg Q6H PRN PO PAIN LEVEL 1-3 OR FEVER; Start 09/28/16 at 15:00 Acetaminophen (Tylenol Tab) 650 mg Q6H PRN PO PAIN LEVEL 1-3 OR FEVER; Start at 15:00 Morphine Sulfate (morphine) 2 mg Q4H PRN IV PAIN LEVEL 7-10 Last administered on 09/29/16 02:30; Admin Dose 2 MG; Start 09/28/16 at 15:00 Lorazepam (Ativan) 1 mg Q2H PRN IV ANXIETY; Start 09/28/16 at 15:00 Docusate Sodium (Colace) 100 mg Q12H PRN PO CONSTIPATION; Start 09/28/16 at 15: 00 Famotidine (Pepcid) 20 mg Q12 PO Last administered on 10/06/16 09:26; Admin Dose 20 MG; Start 09/28/16 at 21:00 Enoxaparin Sodium (Lovenox) 40 mg DAILY SC Last administered on 10/06/16 09:31 ; Admin Dose 40 MG; Start 09/29/16 at 09:00 Aspirin (Aspirin) 81 mg DAILY PO Last administered on 10/06/16 09:25; Admin Dose 81 MG; Start 09/29/16 at 09:00 Atorvastatin Calcium (Lipitor) 10 mg QHS PO Last administered on 10/05/16 20: 11; Admin Dose 10 MG; Start 09/28/16 at 21:00 Clopidogrel Bisulfate (plaVIX) 75 mg DAILY PO Last administered on 10/06/16 09 :26; Admin Dose 75 MG; Start 09/29/16 at 09:00 Furosemide (Lasix) 40 mg DAILY PO Last administered on 10/06/16 09:26; Admin Dose 40 MG; Start 09/29/16 at 09:00 Tiotropium [place] (Spiriva) 1 inh DAILY INH ; Start 09/28/16 at 16:00; Status Future Hold Hydralazine HCl (Apresoline) 10 mg Q6H PRN IV ELEVATED BLOOD PRESSURE Last administered on 10/03/16 18:26; Admin Dose 10 MG; Start 09/28/16 at 16:00 Mupirocin (Bactroban) 1 applic BID TOP Last administered on 10/03/16 09:55; Admin Dose 1 APPLIC; Start 09/30/16 at 09:00 Insulin Glargine (Lantus) 9 unit HS SC Last administered on 10/05/16 22:16; Admin Dose 9 UNIT; Start 10/04/16 at 21:00 Diagnostic Test (Pha) (Accucheck) 1 ea 02 XX ; Start 10/05/16 at 02:00 Miscellaneous Information 1 ea NOTE XX ; Start 10/04/16 at 09:00 Glucose (Glutose) 15 gm Q15M PRN PO DECREASED GLUCOSE; Start 10/04/16 at 09:00 Glucose (Glutose) 22.5 gm Q15M PRN PO DECREASED GLUCOSE; Start 10/04/16 at 09: 00 Dextrose (D50w Syringe) 25 ml Q15M PRN IV DECREASED GLUCOSE; Start 10/04/16 at 09:00 Dextrose (D50w Syringe) 50 ml Q15M PRN IV DECREASED GLUCOSE; Start 10/04/16 at 09:00 Glucagon (Glucagen) 1 mg Q15M PRN IM DECREASED GLUCOSE; Start 10/04/16 at 09:00 Glucose (Glutose) 15 gm Q15M PRN BUCCAL DECREASED GLUCOSE; Start 10/04/16 at 09 :00 Prednisone (Prednisone) 30 mg DAILY PO Last administered on 10/06/16 09:26; Admin Dose 30 MG; Start 10/06/16 at 09:00 Lisinopril (Zestril) 10 mg DAILY PO Last administered on 10/06/16 09:27; Admin Dose 10 MG; Start 10/06/16 at 09:00 Metoprolol Succinate 50 mg 50 mg DAILY PO Last administered on 10/06/16 09:26 ; Admin Dose 50 MG; Start 10/06/16 at 09:00 Ertapenem/Sodium Chloride (Invanz/NS) 100 ml @ 200 mls/hr Q24H IVPB Last administered on 10/05/16 16:38; Admin Dose 200 MLS/HR; Start 10/05/16 at 16:00 Fluconazole (Diflucan) 200 mg DAILY PO Last administered on 10/06/16 09:26; Admin Dose 200 MG; Start 10/05/16 at 16:00 Metoprolol Succinate (Toprol Xl) 25 mg HS PO Last administered on 10/05/16 20: 12; Admin Dose 25 MG; Start 10/05/16 at 21:00 Metoprolol Tartrate (Lopressor) 5 mg Q4 PRN IV HR>110 Hold SBP<100; Start 10/05 at 19:30 СВЕТЛАНА PADRON Oct 06, 2016 15:58
[2016-10-06] MEDS ORDERED: DIGOXIN 0.125 MG TAB PO ONE (16:30)
--- NOTE | 2016-10-06 17:32 | CONS ---
Date/Time of Note Date/Time of Note DATE: 10/06/16 TIME: 17:30 Assessment/Plan Assessment/Plan Chief Complaint/Hosp Course SUBJECTIVE: No acute changes. The patient is alert, looks comfortable, no fevers. MICROBIOLOGY: Urine on admission grew Klebsiella, sputum culture grew E. coli ESBL Lauren albicans. Nares swab was positive for MRSA. ANTIMICROBIALS: The patient is currently on: 1. Fluconazole. 2. Invanz. 3. Topical Bactroban to nares. PHYSICAL EXAMINATION: GENERAL: Well-developed, ill-appearing, elderly man who is alert, in no distress. HEENT: Head atraumatic, normocephalic. Sclerae anicteric. Buccal mucosa dry. NECK: Supple, trachea midline. CHEST: Rise symmetrical. Breath sounds with bilateral scattered rhonchi. HEART: S1, S2. ABDOMEN: Soft. Bowel tones present. EXTREMITIES: No cyanosis. ASSESSMENT: 1. Acute on chronic hypoxemic respiratory failure secondary to chronic obstructive pulmonary disease exacerbation and questionable healthcare- associated pneumonia. 2. Urinary tract infection. 3. Congestive heart failure. 4. Ischemic cardiomyopathy with a history of automatic implantable cardioverter defibrillator. 5. History of coronary artery stenting. 6. Methicillin-resistant Staphylococcus aureus nares colonization. PLAN: Overall improving. Continue abx, steroids taper, BD's, pulmonary rec-s DW pt Problems: Consultation Date/Type/Reason Admit Date/Time Sep 28, 2016 at 14:41 Initial Consult Date 09/28/16 Type of Consultation: id Referring Provider: BAKARI MEZA MD Exam/Review of Systems Vital Signs Vitals Vital Signs Date Time Temp Pulse Resp B/P Pulse Ox O2 Delivery O2 Flow Rate FiO2 10/06/16 16:38 99 10/06/16 15:33 98.0 21 119/78 97 10/06/16 14:06 Nasal Cannula 2.0 10/03/16 11:10 35 Intake and Output 10/05/16 10/05/16 10/06/16 15:00 23:00 07:00 Intake Total 1350 ml 500 ml Output Total 1600 ml 650 ml Balance -250 ml -150 ml Results Result Diagram: 10/06/16 0625 10/06/16 0625 Results 24 hrs Laboratory Tests Test 10/05/16 22:10 10/06/16 02:05 10/06/16 05:00 10/06/16 06:25 Bedside Glucose 87 Creatine Kinase 78 83 Creatine Kinase Index 7.7 8.0 Creatinine Kinase MB (Mass) 6.02 H 6.68 H Troponin I 0.209 *H 0.201 *H Magnesium Level 1.9 Phosphorus Level 2.5 Anion Gap 11 Basophils # 0.0 Basophils % 0.0 Blood Morphology Comment Blood Urea Nitrogen 33 H Calcium Level 8.9 Carbon Dioxide Level 38 H Chloride Level 90 L Creatinine 0.56 L Eosinophils # 0.0 Eosinophils % 0.3 Glucose Level 61 #L Hematocrit 34.6 L Hemoglobin 11.5 L Lymphocytes # 0.8 Lymphocytes % 5.5 L Mean Corpuscular Hemoglobin 32.7 Mean Corpuscular Hemoglobin Concent 33.4 Mean Corpuscular Volume 97.9 Mean Platelet Volume 7.4 Monocytes # 0.7 Monocytes % 5.3 Neutrophils # 12.4 H Neutrophils % 88.9 H Nucleated Red Blood Cells # 0.0 Nucleated Red Blood Cells % 0.0 Platelet Count 147 # Potassium Level 3.6 Red Blood Count 3.53 L Red Cell Distribution Width 16.0 H Sodium Level 135 White Blood Count 13.9 #H Test 10/06/16 08:01 10/06/16 12:41 Bedside Glucose 76 84 Medications Medications Current Medications IV Flush (NS 10 ml) 10 ml PRN PRN IV IV PROTOCOL; Start 09/28/16 at 14:00 Ondansetron HCl (Zofran Inj) 4 mg Q6H PRN IV NAUSEA AND/OR VOMITING; Start at 15:00 Nitroglycerin (Nitroglycerin (Sl Tab) 0.4 Mg) 1 tab Q5M PRN SL CHEST PAIN; Start 09/28/16 at 15:00 Acetaminophen (Tylenol Liquid) 650 mg Q6H PRN PO PAIN LEVEL 1-3 OR FEVER; Start 09/28/16 at 15:00 Acetaminophen (Tylenol Tab) 650 mg Q6H PRN PO PAIN LEVEL 1-3 OR FEVER; Start at 15:00 Morphine Sulfate (morphine) 2 mg Q4H PRN IV PAIN LEVEL 7-10 Last administered on 09/29/16t 02:30; Admin Dose 2 MG; Start 09/28/16 at 15:00 Lorazepam (Ativan) 1 mg Q2H PRN IV ANXIETY; Start 09/28/16 at 15:00 Docusate Sodium (Colace) 100 mg Q12H PRN PO CONSTIPATION; Start 09/28/16 at 15: 00 Famotidine (Pepcid) 20 mg Q12 PO Last administered on 10/06/16 09:26; Admin Dose 20 MG; Start 09/28/16 at 21:00 Enoxaparin Sodium (Lovenox) 40 mg DAILY SC Last administered on 10/06/16 09:31 ; Admin Dose 40 MG; Start 09/29/16 at 09:00 Aspirin (Aspirin) 81 mg DAILY PO Last administered on 10/06/16 09:25; Admin Dose 81 MG; Start 09/29/16 at 09:00 Atorvastatin Calcium (Lipitor) 10 mg QHS PO Last administered on 10/05/16 20: 11; Admin Dose 10 MG; Start 09/28/16 at 21:00 Clopidogrel Bisulfate (plaVIX) 75 mg DAILY PO Last administered on 10/06/16 09 :26; Admin Dose 75 MG; Start 09/29/16 at 09:00 Furosemide (Lasix) 40 mg DAILY PO Last administered on 10/06/16 09:26; Admin Dose 40 MG; Start 09/29/16 at 09:00 Tiotropium [place] (Spiriva) 1 inh DAILY INH ; Start 09/28/16 at 16:00; Status Future Hold Hydralazine HCl (Apresoline) 10 mg Q6H PRN IV ELEVATED BLOOD PRESSURE Last administered on 10/03/16 18:26; Admin Dose 10 MG; Start 09/28/16 at 16:00 Mupirocin (Bactroban) 1 applic BID TOP Last administered on 10/03/16 09:55; Admin Dose 1 APPLIC; Start 09/30/16 at 09:00 Insulin Glargine (Lantus) 9 unit HS SC Last administered on 10/05/16 22:16; Admin Dose 9 UNIT; Start 10/04/16 at 21:00 Diagnostic Test (Pha) (Accucheck) 1 ea 02 XX ; Start 10/05/16 at 02:00 Miscellaneous Information 1 ea NOTE XX ; Start 10/04/16 at 09:00 Glucose (Glutose) 15 gm Q15M PRN PO DECREASED GLUCOSE; Start 10/04/16 at 09:00 Glucose (Glutose) 22.5 gm Q15M PRN PO DECREASED GLUCOSE; Start 10/04/16 at 09: 00 Dextrose (D50w Syringe) 25 ml Q15M PRN IV DECREASED GLUCOSE; Start 10/04/16 at 09:00 Dextrose (D50w Syringe) 50 ml Q15M PRN IV DECREASED GLUCOSE; Start 10/04/16 at 09:00 Glucagon (Glucagen) 1 mg Q15M PRN IM DECREASED GLUCOSE; Start 10/04/16 at 09:00 Glucose (Glutose) 15 gm Q15M PRN BUCCAL DECREASED GLUCOSE; Start 10/04/16 at 09 :00 Prednisone (Prednisone) 30 mg DAILY PO Last administered on 10/06/16 09:26; Admin Dose 30 MG; Start 10/06/16 at 09:00 Lisinopril (Zestril) 10 mg DAILY PO Last administered on 10/06/16 09:27; Admin Dose 10 MG; Start 10/06/16 at 09:00 Metoprolol Succinate 50 mg 50 mg DAILY PO Last administered on 10/06/16 09:26 ; Admin Dose 50 MG; Start 10/06/16 at 09:00 Ertapenem/Sodium Chloride (Invanz/NS) 100 ml @ 200 mls/hr Q24H IVPB Last administered on 10/05/16 16:38; Admin Dose 200 MLS/HR; Start 10/05/16 at 16:00 Fluconazole (Diflucan) 200 mg DAILY PO Last administered on 10/06/16 09:26; Admin Dose 200 MG; Start 10/05/16 at 16:00 Metoprolol Tartrate (Lopressor) 5 mg Q4 PRN IV HR>110 Hold SBP<100; Start 10/05 at 19:30 Metoprolol Succinate (Toprol Xl) 50 mg HS PO ; Start 10/06/16 at 21:00 CODY BRANCH NP Oct 06, 2016 17:32
[2016-10-06] MEDS: ERTAPENEM SODIUM 1 GM in SOD CHLORIDE 0.9% 100 ML IVPB SCH (17:47)
[2016-10-06] MEDS: ATORVASTATIN 10 MG TAB PO SCH (20:55)
[2016-10-06] MEDS: METOPROLOL (XL) 50 MG TAB PO SCH (20:56)
[2016-10-06] MEDS: INSULIN GLARGINE [LANtus] 3 ML PEN SC SCH (21:05)
[2016-10-07] VITALS (11 sets, daily range): BP systolic 118–156; BP diastolic 72–99; PULSE 74–151; RESP 18–20
[2016-10-07] MEDS: ALBUTEROL/IPRATROPIUM (NEB) 3 ML AMP HHN SCH ×4 (01:15→21:46)
[2016-10-07] MEDS: ACCU-CHEK XX SCH (02:00)
[2016-10-07 07:01] LABS: EOSINOPHILS % 0.3 % (0.0-7.0); HEMATOCRIT 34.2 % (42.0-52.0); HEMOGLOBIN 11.4 g/dl (14.0-18.0); LYMPHOCYTES # 0.4 10^3/ul (0.8-2.9); LYMPHOCYTES % 3.3 % (15.0-51.0); MEAN CORPUSCULAR HEMOGLOBIN 32.5 pg (29.0-33.0); MEAN CORPUSCULAR HGB CONC 33.3 g/dl (32.0-37.0); MEAN CORPUSCULAR VOLUME 97.6 fl (82.0-101.0); MEAN PLATELET VOLUME 7.5 fl (7.4-10.4); MONOCYTE # 0.7 10^3/ul (0.3-0.9); MONOCYTES % 5.8 % (0.0-11.0); NEUTROPHIL # 11.4 10^3/ul (1.6-7.5); NEUTROPHILS % 90.6 % (39.0-77.0); PLATELET COUNT 151 10^3/UL (140-440); RED BLOOD COUNT 3.51 10^6/ul (4.70-6.10); RED CELL DISTRIBUTION WIDTH 15.2 % (11.5-14.5); UNCORRECTED WBC 12.6 10^3/ul (4.8-10.8); WHITE BLOOD COUNT 12.6 10^3/ul (4.8-10.8)
[2016-10-07 07:06] LABS: CONDITION 1; LH ANALYZER COMMENTS 1
[2016-10-07 07:13] LABS: POTASSIUM 3.3 mmol/L (3.5-5.1)
[2016-10-07 07:15] LABS: CREATININE 0.63 mg/dl (0.61-1.24)
[2016-10-07 07:16] LABS: CALCIUM 8.8 mg/dl (8.4-10.2)
[2016-10-07 07:30] LABS: TROPONIN-I 0.167 ng/ml (0.00-0.12)
[2016-10-07] MEDS: INSULIN ASPART [NOVOLOG] 3 ML PEN SC SCH ×7 (07:55→21:00)
--- NOTE | 2016-10-07 09:26 | RADRPT ---
Vent Rate: 99 bpm RR Interval: 0 msec VA Interval: 0 msec QRS Duration: 98 msec QT Interval: 466 msec QTC Interval: 598 msec P-R-T [place]: 0 - -62 - 0 degrees Atrial flutter with variable AV block with premature ventricular or aberrantly conducted complexes Left axis deviation Nonspecific ST and T wave abnormality Prolonged QT Abnormal ECG Electronically Signed By: Chaim Mitchell [id number]
[2016-10-07] MEDS: ENOXAPARIN 40 MG/0.4 ML SYG SC SCH (09:51)
[2016-10-07 10:59] LABS: AADO2 Arterial 77.1 mmHg (7.0-24.0); Allen Test ACCEPTAB; Arterial Base Excess 4.7 mmol/L (-3.0-3); Arterial COHb 1.9 % (0.0-3.0); Arterial Fraction of Oxyhgb 85.9 % (93.0-99.0); Arterial HCO3 30.2 mmol/L (22.0-26.0); Arterial MetHb 0.3 % (0.0-1.5); Arterial Total Hemglobin 12.4 g/dl (12.0-18.0); MODE NASAL CANNULA
--- NOTE | 2016-10-07 11:08 | CONS ---
Date/Time of Note Date/Time of Note DATE: 10/07/16 TIME: 11:06 Assessment/Plan Assessment/Plan Chief Complaint/Hosp Course IMPRESSION: 1. Atrial fibrillation with rapid ventricular response.-improved HR and now in SR 2. Congestive heart failure, systolic, acute on chronic. 3. History of cardiomyopathy with decreased left ventricular ejection fraction 20% to 25% per chart biopsy. 4. Shortness of breath. 5. Status post hypercapnic respiratory failure, status post extubation. 6. Chronic obstructive pulmonary disease. 7. Hypertension. 8. Dyslipidemia. 9. History of automatic implantable cardioverter-defibrillator with possible discharge.-s/p interrogation with ICD shock for uncontrolled rapid AF 10. Pneumonia. 11.Positive troponin-minimal with no sig uptrend Recc -Tele -serial ecg's -Continue asa/plavix -Continue BB/digoxin -Continue ACEI -Continue statin Problems: Consultation Date/Type/Reason Admit Date/Time Sep 28, 2016 at 14:41 Initial Consult Date 09/28/16 Type of Consultation: Cardiology Reason for Consultation AF/ICD discharge Referring Provider: BAKARI MEZA MD Exam/Review of Systems Vital Signs Vitals Vital Signs Date Time Temp Pulse Resp B/P Pulse Ox O2 Delivery O2 Flow Rate FiO2 10/07/16 08:21 2.0 10/07/16 08:19 100 18 92 Nasal Cannula 10/07/16 07:38 97.5 131/87 10/03/16 11:10 35 Intake and Output 10/06/16 10/06/16 10/07/16 15:00 23:00 07:00 Intake Total 990 ml 500 ml Output Total 700 ml Balance 290 ml 500 ml Exam Review of Systems: CONSTITUTIONAL: No fevers, chills. PULMONARY: No sob CARDIOVASCULAR: No chest pain/palpitations GASTROINTESTINAL: No nausea/vomiting. GENITOURINARY: No hematuria/dysuria. MUSCULOSKELETAL: No myagias/arthalgias. PSYCHIATRIC: The patient denies depression. NEUROLOGIC: No weakness Constitutional: alert Psych: no complaints Head: normocephalic ENMT: mucosa pink and moist Neck: jvd (9 cm water), supple Respiratory: diminished breath sounds Cardiovascular: regular rate and rhythm Gastrointestinal: non-tender, soft Musculoskeletal: muscle tone (normal) Extremities: edema (none) Neurological: other (No focal deficits) Results Result Diagram: 10/07/16 0550 10/07/16 0550 Results 24 hrs Laboratory Tests Test 10/06/16 12:41 10/06/16 20:58 10/07/16 05:50 10/07/16 08:07 Bedside Glucose 84 81 71 Anion Gap 9 Basophils # 0.0 Basophils % 0.0 Blood Morphology Comment Blood Urea Nitrogen 34 H Calcium Level 8.8 Carbon Dioxide Level 38 H Chloride Level 90 L Creatinine 0.63 Eosinophils # 0.0 Eosinophils % 0.3 Glucose Level 63 L Hematocrit 34.2 L Hemoglobin 11.4 L Lymphocytes # 0.4 L Lymphocytes % 3.3 L Mean Corpuscular Hemoglobin 32.5 Mean Corpuscular Hemoglobin Concent 33.3 Mean Corpuscular Volume 97.6 Mean Platelet Volume 7.5 Monocytes # 0.7 Monocytes % 5.8 Neutrophils # 11.4 H Neutrophils % 90.6 H Nucleated Red Blood Cells # 0.0 Nucleated Red Blood Cells % 0.0 Platelet Count 151 Potassium Level 3.3 L Red Blood Count 3.51 L Red Cell Distribution Width 15.2 H Sodium Level 134 L Troponin I 0.167 *H White Blood Count 12.6 H Test 10/07/16 09:42 10/07/16 10:14 Bedside Glucose 71 Arterial Blood HCO3 30.2 H Arterial Blood Base Excess 4.7 H Arterial Blood Oxygen Saturation 87.8 L Thomas Test ACCEPTAB Arterial Blood Gas Puncture Site Right Radial Arterial Blood Carboxyhemoglobin 1.9 Arterial Blood Date Drawn 10/07/2016 10:40:11 AM Arterial Blood Methemoglobin 0.3 Arterial Blood pCO2 (Temp correct) 48.7 H Arterial Blood pH (Temp corrected) 7.410 Arterial Blood pO2 (Temp corrected) 57.8 L Blood Gas A-a O2 Differential 77.1 H Blood Gas Modality NASAL CANNULA Blood Gas Notified Time 10/07/2016 10:58:53 AM Blood Gas Notified Whom JLD Blood Gas Specimen Source Blood arterial Blood Gas Temperature 37.0 FiO2 27.0 Oxyhemoglobin Percent 85.9 L Total Hemoglobin 12.4 Medications Medications Current Medications IV Flush (NS 10 ml) 10 ml PRN PRN IV IV PROTOCOL; Start 09/28/16 at 14:00 Ondansetron HCl (Zofran Inj) 4 mg Q6H PRN IV NAUSEA AND/OR VOMITING; Start at 15:00 Nitroglycerin (Nitroglycerin (Sl Tab) 0.4 Mg) 1 tab Q5M PRN SL CHEST PAIN; Start 09/28/16 at 15:00 Acetaminophen (Tylenol Liquid) 650 mg Q6H PRN PO PAIN LEVEL 1-3 OR FEVER; Start 09/28/16 at 15:00 Acetaminophen (Tylenol Tab) 650 mg Q6H PRN PO PAIN LEVEL 1-3 OR FEVER; Start at 15:00 Morphine Sulfate (morphine) 2 mg Q4H PRN IV PAIN LEVEL 7-10 Last administered on 09/29/16 02:30; Admin Dose 2 MG; Start 09/28/16 at 15:00 Lorazepam (Ativan) 1 mg Q2H PRN IV ANXIETY; Start 09/28/16 at 15:00 Docusate Sodium (Colace) 100 mg Q12H PRN PO CONSTIPATION; Start 09/28/16 at 15: 00 Famotidine (Pepcid) 20 mg Q12 PO Last administered on 10/06/16 20:56; Admin Dose 20 MG; Start 09/28/16 at 21:00 Enoxaparin Sodium (Lovenox) 40 mg DAILY SC Last administered on 10/07/16 09:51 ; Admin Dose 40 MG; Start 09/29/16 at 09:00 Aspirin (Aspirin) 81 mg DAILY PO Last administered on 10/06/16 09:25; Admin Dose 81 MG; Start 09/29/16 at 09:00 Atorvastatin Calcium (Lipitor) 10 mg QHS PO Last administered on 10/06/16 20: 55; Admin Dose 10 MG; Start 09/28/16 at 21:00 Clopidogrel Bisulfate (plaVIX) 75 mg DAILY PO Last administered on 10/06/16 09 :26; Admin Dose 75 MG; Start 09/29/16 at 09:00 Furosemide (Lasix) 40 mg DAILY PO Last administered on 10/06/16 09:26; Admin Dose 40 MG; Start 09/29/16 at 09:00 Tiotropium [place] (Spiriva) 1 inh DAILY INH ; Start 09/28/16 at 16:00; Status Future Hold Hydralazine HCl (Apresoline) 10 mg Q6H PRN IV ELEVATED BLOOD PRESSURE Last administered on 10/03/16 18:26; Admin Dose 10 MG; Start 09/28/16 at 16:00 Mupirocin (Bactroban) 1 applic BID TOP Last administered on 10/06/16 20:56; Admin Dose 1 APPLIC; Start 09/30/16 at 09:00 Insulin Glargine (Lantus) 9 unit HS SC Last administered on 10/06/16 21:05; Admin Dose 9 UNIT; Start 10/04/16 at 21:00 Diagnostic Test (Pha) (Accucheck) 1 ea 02 XX ; Start 10/05/16 at 02:00 Miscellaneous Information 1 ea NOTE XX ; Start 10/04/16 at 09:00 Glucose (Glutose) 15 gm Q15M PRN PO DECREASED GLUCOSE; Start 10/04/16 at 09:00 Glucose (Glutose) 22.5 gm Q15M PRN PO DECREASED GLUCOSE; Start 10/04/16 at 09: 00 Dextrose (D50w Syringe) 25 ml Q15M PRN IV DECREASED GLUCOSE; Start 10/04/16 at 09:00 Dextrose (D50w Syringe) 50 ml Q15M PRN IV DECREASED GLUCOSE; Start 10/04/16 at 09:00 Glucagon (Glucagen) 1 mg Q15M PRN IM DECREASED GLUCOSE; Start 10/04/16 at 09:00 Glucose (Glutose) 15 gm Q15M PRN BUCCAL DECREASED GLUCOSE; Start 10/04/16 at 09 :00 Prednisone (Prednisone) 30 mg DAILY PO Last administered on 10/06/16 09:26; Admin Dose 30 MG; Start 10/06/16 at 09:00 Lisinopril (Zestril) 10 mg DAILY PO Last administered on 10/06/16 09:27; Admin Dose 10 MG; Start 10/06/16 at 09:00 Metoprolol Succinate 50 mg 50 mg DAILY PO Last administered on 10/06/16 09:26 ; Admin Dose 50 MG; Start 10/06/16 at 09:00 Ertapenem/Sodium Chloride (Invanz/NS) 100 ml @ 200 mls/hr Q24H IVPB Last administered on 10/06/16 17:47; Admin Dose 200 MLS/HR; Start 10/05/16 at 16:00 Fluconazole (Diflucan) 200 mg DAILY PO Last administered on 10/06/16 09:26; Admin Dose 200 MG; Start 10/05/16 at 16:00 Metoprolol Tartrate (Lopressor) 5 mg Q4 PRN IV HR>110 Hold SBP<100; Start 10/05 at 19:30 Metoprolol Succinate (Toprol Xl) 50 mg HS PO Last administered on 10/06/16t 20: 56; Admin Dose 50 MG; Start 10/06/16 at 21:00 СВЕТЛАНА PADRON Oct 07, 2016 11:08
[2016-10-07] MEDS ORDERED: POTASSIUM CHLORIDE (SR) 20 MEQ TAB PO STA (11:10)
--- NOTE | 2016-10-07 11:16 | CONS ---
Date/Time of Note Date/Time of Note DATE: 10/07/16 TIME: 11:12 Assessment/Plan Assessment/Plan Additional Assessment/Plan Assessment and recommendations; 1. Patient admitted with respiratory failure due to severe bilateral pneumonia as well as hypercapnic hypoxemic respiratory failure no successfully extubated several days ago transferred to telemetry unit. Doing well overall. 2. History of diabetes, hypertension which are both fairly stable. 3. Congestive heart failure which is currently clinically compensated. 4. Paroxysmal A. fib. Next Continue current treatment for now. Consultation Date/Type/Reason Admit Date/Time Sep 28, 2016 at 14:41 Initial Consult Date 09/28/16 Type of Consultation: Cardiology Referring Provider: BAKARI MEZA MD 24 HR Interval Summary Free Text/Dictation Patient condition is stable. Denies any shortness of breath. Any wheezing. Also denies any coughing, sputum production. General examination; middle aged man, awake alert no distress. Exam/Review of Systems Vital Signs Vitals Vital Signs Date Time Temp Pulse Resp B/P Pulse Ox O2 Delivery O2 Flow Rate FiO2 10/07/16 08:21 2.0 10/07/16 08:19 100 18 92 Nasal Cannula 10/07/16 07:38 97.5 131/87 10/03/16 11:10 35 Intake and Output 10/06/16 10/06/16 10/07/16 15:00 23:00 07:00 Intake Total 990 ml 500 ml Output Total 700 ml Balance 290 ml 500 ml Exam H EENT examination; supple neck, no JVD. No lymphadenopathy. Lungs is clear. Patient does not multiple carious teeth. Chest examination; diminished but clear breath sounds. S1-S2 audible no murmurs regular rhythm. Patient is in and out of atrial fibrillation, paced rhythm as well as sinus rhythm. Next Abdomen examination; soft, nontender bowel sounds audible, no organomegaly. Extremity examination; no peripheral edema. Right foot is in a cast. 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 [facility] [employer] ATTENDANT examination; no focal deficit. Results Result Diagram: 10/07/16 0550 10/07/16 0550 Results 24 hrs Laboratory Tests Test 10/06/16 12:41 10/06/16 20:58 10/07/16 05:50 10/07/16 08:07 Bedside Glucose 84 81 71 Anion Gap 9 Basophils # 0.0 Basophils % 0.0 Blood Morphology Comment Blood Urea Nitrogen 34 H Calcium Level 8.8 Carbon Dioxide Level 38 H Chloride Level 90 L Creatinine 0.63 Eosinophils # 0.0 Eosinophils % 0.3 Glucose Level 63 L Hematocrit 34.2 L Hemoglobin 11.4 L Lymphocytes # 0.4 L Lymphocytes % 3.3 L Mean Corpuscular Hemoglobin 32.5 Mean Corpuscular Hemoglobin Concent 33.3 Mean Corpuscular Volume 97.6 Mean Platelet Volume 7.5 Monocytes # 0.7 Monocytes % 5.8 Neutrophils # 11.4 H Neutrophils % 90.6 H Nucleated Red Blood Cells # 0.0 Nucleated Red Blood Cells % 0.0 Platelet Count 151 Potassium Level 3.3 L Red Blood Count 3.51 L Red Cell Distribution Width 15.2 H Sodium Level 134 L Troponin I 0.167 *H White Blood Count 12.6 H Test 10/07/16 09:42 10/07/16 10:14 Bedside Glucose 71 Arterial Blood HCO3 30.2 H Arterial Blood Base Excess 4.7 H Arterial Blood Oxygen Saturation 87.8 L Thomas Test ACCEPTAB Arterial Blood Gas Puncture Site Right Radial Arterial Blood Carboxyhemoglobin 1.9 Arterial Blood Date Drawn 10/07/2016 10:40:11 AM Arterial Blood Methemoglobin 0.3 Arterial Blood pCO2 (Temp correct) 48.7 H Arterial Blood pH (Temp corrected) 7.410 Arterial Blood pO2 (Temp corrected) 57.8 L Blood Gas A-a O2 Differential 77.1 H Blood Gas Modality NASAL CANNULA Blood Gas Notified Time 10/07/2016 10:58:53 AM Blood Gas Notified Whom JLD Blood Gas Specimen Source Blood arterial Blood Gas Temperature 37.0 FiO2 27.0 Oxyhemoglobin Percent 85.9 L Total Hemoglobin 12.4 Medications Medications Current Medications IV Flush (NS 10 ml) 10 ml PRN PRN IV IV PROTOCOL; Start 09/28/16 at 14:00 Ondansetron HCl (Zofran Inj) 4 mg Q6H PRN IV NAUSEA AND/OR VOMITING; Start at 15:00 Nitroglycerin (Nitroglycerin (Sl Tab) 0.4 Mg) 1 tab Q5M PRN SL CHEST PAIN; Start 09/28/16 at 15:00 Acetaminophen (Tylenol Liquid) 650 mg Q6H PRN PO PAIN LEVEL 1-3 OR FEVER; Start 09/28/16 at 15:00 Acetaminophen (Tylenol Tab) 650 mg Q6H PRN PO PAIN LEVEL 1-3 OR FEVER; Start at 15:00 Morphine Sulfate (morphine) 2 mg Q4H PRN IV PAIN LEVEL 7-10 Last administered on 09/29/16 02:30; Admin Dose 2 MG; Start 09/28/16 at 15:00 Lorazepam (Ativan) 1 mg Q2H PRN IV ANXIETY; Start 09/28/16 at 15:00 Docusate Sodium (Colace) 100 mg Q12H PRN PO CONSTIPATION; Start 09/28/16 at 15: 00 Famotidine (Pepcid) 20 mg Q12 PO Last administered on 10/06/16 20:56; Admin Dose 20 MG; Start 09/28/16 at 21:00 Enoxaparin Sodium (Lovenox) 40 mg DAILY SC Last administered on 10/07/16 09:51 ; Admin Dose 40 MG; Start 09/29/16 at 09:00 Aspirin (Aspirin) 81 mg DAILY PO Last administered on 10/06/16 09:25; Admin Dose 81 MG; Start 09/29/16 at 09:00 Atorvastatin Calcium (Lipitor) 10 mg QHS PO Last administered on 10/06/16 20: 55; Admin Dose 10 MG; Start 09/28/16 at 21:00 Clopidogrel Bisulfate (plaVIX) 75 mg DAILY PO Last administered on 10/06/16 09 :26; Admin Dose 75 MG; Start 09/29/16 at 09:00 Furosemide (Lasix) 40 mg DAILY PO Last administered on 10/06/16 09:26; Admin Dose 40 MG; Start 09/29/16 at 09:00 Tiotropium [place] (Spiriva) 1 inh DAILY INH ; Start 09/28/16 at 16:00; Status Future Hold Hydralazine HCl (Apresoline) 10 mg Q6H PRN IV ELEVATED BLOOD PRESSURE Last administered on 10/03/16 18:26; Admin Dose 10 MG; Start 09/28/16 at 16:00 Mupirocin (Bactroban) 1 applic BID TOP Last administered on 10/06/16 20:56; Admin Dose 1 APPLIC; Start 09/30/16 at 09:00 Insulin Glargine (Lantus) 9 unit HS SC Last administered on 10/06/16 21:05; Admin Dose 9 UNIT; Start 10/04/16 at 21:00 Diagnostic Test (Pha) (Accucheck) 1 ea 02 XX ; Start 10/05/16 at 02:00 Miscellaneous Information 1 ea NOTE XX ; Start 10/04/16 at 09:00 Glucose (Glutose) 15 gm Q15M PRN PO DECREASED GLUCOSE; Start 10/04/16 at 09:00 Glucose (Glutose) 22.5 gm Q15M PRN PO DECREASED GLUCOSE; Start 10/04/16 at 09: 00 Dextrose (D50w Syringe) 25 ml Q15M PRN IV DECREASED GLUCOSE; Start 10/04/16 at 09:00 Dextrose (D50w Syringe) 50 ml Q15M PRN IV DECREASED GLUCOSE; Start 10/04/16 at 09:00 Glucagon (Glucagen) 1 mg Q15M PRN IM DECREASED GLUCOSE; Start 10/04/16 at 09:00 Glucose (Glutose) 15 gm Q15M PRN BUCCAL DECREASED GLUCOSE; Start 10/04/16 at 09 :00 Prednisone (Prednisone) 30 mg DAILY PO Last administered on 10/06/16 09:26; Admin Dose 30 MG; Start 10/06/16 at 09:00 Lisinopril (Zestril) 10 mg DAILY PO Last administered on 10/06/16 09:27; Admin Dose 10 MG; Start 10/06/16 at 09:00 Metoprolol Succinate 50 mg 50 mg DAILY PO Last administered on 10/06/16 09:26 ; Admin Dose 50 MG; Start 10/06/16 at 09:00 Ertapenem/Sodium Chloride (Invanz/NS) 100 ml @ 200 mls/hr Q24H IVPB Last administered on 10/06/16 17:47; Admin Dose 200 MLS/HR; Start 10/05/16 at 16:00 Fluconazole (Diflucan) 200 mg DAILY PO Last administered on 10/06/16 09:26; Admin Dose 200 MG; Start 10/05/16 at 16:00 Metoprolol Tartrate (Lopressor) 5 mg Q4 PRN IV HR>110 Hold SBP<100; Start 10/05 at 19:30 Metoprolol Succinate (Toprol Xl) 50 mg HS PO Last administered on 1/31/17at 20: 56; Admin Dose 50 MG; Start 10/06/16 at 21:00 ROSE PÉREZ Oct 07, 2016 11:16
--- NOTE | 2016-10-07 11:48 | RADRPT ---
PROCEDURE: CT head without Contrast CLINICAL INDICATION: Decreased LOC TECHNIQUE: Transaxial images were made through the head on a multi-slice scanner without intraveno us contrast. Coronal and sagittal images were subsequently reformatted. One or more of the following dose reduction techniques were used: - Automated exposure control. - Adjustment of the mA and/or kV according to patient size. - Use of iterative reconstruction technique. Radiation dose: CTDIvol = 42.43 mGy; DLP = 720.23 mGy-cm. COMPARISON: 08/01/2015 FINDINGS: The calvarium appears intact. The mastoid air cells and paranasal sinuses are well-aerated.. The lateral and third ventricles are mildly dilated but proportionate to the prominent fissures and sulci compatible with mild diffuse cortical atrophy. The fourth ventricle is normal in size. There is no midline shift. No intracranial bleed, mass, or extra-axial fluid collection is identified. There is good dunne-white matter differentiation. The sella is again largely filled with CSF with a scant amount of pituitary tissue seen at the floor . IMPRESSION: 1. Mild diffuse cortical atrophy, unchanged since the previous CT of 08/01/2015. 2. No intracranial bleed, mass, or territorial infarct is identified. Physician Basia Date Time Electronically viewed and signed by Physician Basia on 10/07/2016 11:47 /
--- NOTE | 2016-10-07 11:50 | RADRPT ---
PROCEDURE: XR Chest. CLINICAL INDICATION: Shortness of breath TECHNIQUE: Chest AP portable. COMPARISON: 10/04/2016 FINDINGS: Left-sided single lead AICD device. The mediastinal structures are unremarkable. There is calcification of the thoracic aorta (consiste nt with atherosclerosis). There is mild cardiomegaly. There is pulmonary venous hypertension. The re are low lung volumes. There is bibasilar subsegmental atelectasis. There are small bilateral pl eural effusions. There are senescent changes of the axial skeleton. IMPRESSION: Mild cardiomegaly. Mild pulmonary venous hypertension. Low lung volumes. Bibasilar subsegmental atelectasis. Small bilateral pleural effusions. RPTAT: HGDB .Javier Mancilla MD, MD Date Time Electronically viewed and signed by .Javier Mancilla MD, on 10/07/2016 11:50 .B/
[2016-10-07] MEDS: predniSONE 10 MG TAB PO SCH (14:10)
[2016-10-07] MEDS: FLUCONAZOLE 200 MG TAB PO SCH (14:10)
[2016-10-07] MEDS: FUROSEMIDE 40 MG TAB PO SCH (14:10)
[2016-10-07] MEDS: ASPIRIN 81 MG TAB PO SCH (14:10)
[2016-10-07] MEDS: METOPROLOL (XL) 25 MG TAB PO SCH (14:11)
[2016-10-07] MEDS ORDERED: LOV40I SC (14:11)
[2016-10-07] MEDS: LISINOPRIL 5 MG TAB PO SCH (14:11)
[2016-10-07] MEDS ORDERED: PRED20TA PO (14:11)
[2016-10-07] MEDS: FAMOTIDINE 20 MG TAB PO SCH ×2 (14:11→21:36)
[2016-10-07] MEDS ORDERED: FLUC200T36 PO (14:11)
[2016-10-07] MEDS ORDERED: ERTA1VIA IV (14:11)
[2016-10-07] MEDS ORDERED: IPRA3AMP HHN (14:11)
[2016-10-07] MEDS ORDERED: METO50TA16 PO (14:14)
--- NOTE | 2016-10-07 14:26 | DS ---
Date/Time of Note Date/Time of Note DATE: 10/07/16 TIME: 14:17 Discharge Summary Admission/Discharge Info Admit Date/Time Sep 28, 2016 at 14:41 Discharge Date/Time Final Diagnosis 1. Atrial fibrillation with RVR, sinus now, follow up with cardiology 2. Mildly elevated troponin, likely tachycardia related, follow up with cardiology 3. facility acquired pneumonia, with ESBL E. Coli, and Lauren albicans, improving on invanz and diflucan 4. COPD exacerbation, stable, neb, decrease steroid 5. Congestive heart failure, systolic, chronic, stable 6. Ischemic cardiomyopathy 7. CAD 8. s/p ICD, stable 9. Essential hypertension, stable 10. Dyslipidemia. Continue statin. Patient Condition: Stable Hospital Course This is a 66-year-old gentleman who is known to our service from prior hospitalization with a past medical history of ischemic cardiomyopathy, ejection fraction 25%, coronary artery disease, hypertension, dyslipidemia, COPD , CHF who resides at group home [facility], sick sinus syndrome, status post pacemaker placement, ischemic cardiomyopathy, atrial fibrillation who was found to have increased shortness of breath at group [facility] and was transferred to [facility] Emergency Room via EMS, where he was found to have oxygen saturation of 69% in room air. His ABG showed pH of 7.269, pCO2 94.4, pCO2 57.5, bicarbonate 42.3, oxygen saturation 85.1%. He was placed on BiPAP, which he was not able to tolerate and continued to become more hypoxic. Therefore, he was intubated in the course of the emergency room. Pulmonology was consulted. The patient was also treated with Solu-Medrol, cefepime, breathing treatment, and at this time he has been placed on propofol secondary to intubation. Patient was treated with antibiotics, nebulizer and steroid for pneumonia and COPD exacerbation, symptoms improved. He got extubated. Respiratory culture positive for ESBL E. Coli, and Lauren albicans, that he is on invanz and diflucan. Patient is clinically stable. He will be discharged to SNF for iv antibiotics and physical therapy. Patient had atrial fibrillation with RVR. Toprol XL was increased to 50 mg daily. He is with sinus rhythm now. He had CAD, troponin was slightly increased to 0.167. It is considered tachycardia related. He had ICD shock like feeling that resolved after ICD was adjusted. Home Meds Active Scripts Metoprolol Succinate* (Toprol XL*) 50 Mg Tab.er.24h, 50 MG PO HS for 30 Days Prov:FUNMI MEZA MD 10/07/16 Ertapenem Sodium (Invanz) 1 Gm Vial.port, 1 GM IV DAILY for 5 Days Prov:FUNMI MEZA MD 10/07/16 Prednisone* (Prednisone*) 20 Mg Tab, 20 MG PO DAILY for 3 Days, TAB prednisone 20 mg po daily for 3 days, then 10 mg po daily for 3 days Prov:FUNMI MEZA MD 10/07/16 Ipratropium-Albuterol (Ipratropium-Albuterol) 0.5-3 Mg/3 Ml Ampul.neb, 3 ML HHN Q6H RESP THERAPY for 10 Days Prov:FUNMI MEZA MD 10/07/16 Fluconazole* (Diflucan*) 200 Mg Tablet, 200 MG PO DAILY for 5 Days, TAB Prov:FUNMI MEZA MD 10/07/16 Enoxaparin Sodium* (Enoxaparin Sodium*) 40 Mg/0.4 Ml Syringe, 40 MG SC DAILY for 5 Days Prov:FUNMI MEZA MD 10/07/16 Reported Medications Tiotropium [place]* (Spiriva*) 18 Mcg Cap.w.dev, 1 CAP INHALATION DAILY, #30 CAP 09/28/16 Salmeterol Xinaf/Fluticasone* (Advair*) 250-50 Diskus Inhaler, 1 INH INHALATION BID, #1 INHALER 09/28/16 Lisinopril* (Lisinopril*) 5 Mg Tablet, 5 MG PO DAILY, #30 TAB 09/28/16 Furosemide* (Furosemide*) 40 Mg Tablet, 40 MG PO DAILY, TAB 09/28/16 Clopidogrel Bisulfate (Clopidogrel) 75 Mg Tablet, 75 MG PO DAILY, #30 TAB 09/28/16 Atorvastatin Calcium (Atorvastatin Calcium) 10 Mg Tablet, 10 MG PO QHS, #30 TAB 09/28/16 Aspirin* (Aspirin* Chew) 81 Mg Tab.chew, 81 MG PO DAILY, TAB.CHEW 09/28/16 Discontinued Reported Medications Metoprolol Succinate* (Toprol XL*) 25 Mg Tab.sr.24h, 25 MG PO DAILY, #30 TAB 09/28/16 Follow-up Plan follow up with cardiology 2 weeks pulmonology 2 weeks PCP 2 weeks Pending Labs Laboratory Tests Test 10/06/16 20:58 10/07/16 05:50 10/07/16 08:07 10/07/16 09:42 Bedside Glucose 81mg/dL (70-220) 71mg/dL (70-220) 71mg/dL (70-220) Anion Gap 9 (8-16) Basophils # 0.010^3/ul (0.0-0.1) Basophils % 0.0% (0.0-2.0) Blood Morphology Comment Blood Urea Nitrogen 34mg/dl (7-20) Calcium Level 8.8mg/dl (8.4-10.2) Carbon Dioxide Level 38mmol/L (21-31) Chloride Level 90mmol/L (97-110) Creatinine 0.63mg/dl (0.61-1.24) Eosinophils # 0.010^3/ul (0.0-0.5) Eosinophils % 0.3% (0.0-7.0) Glucose Level 63mg/dl (70-220) Hematocrit 34.2% (42.0-52.0) Hemoglobin 11.4g/dl (14.0-18.0) Lymphocytes # 0.410^3/ul (0.8-2.9) Lymphocytes % 3.3% (15.0-51.0) Mean Corpuscular Hemoglobin 32.5pg (29.0-33.0) Mean Corpuscular Hemoglobin Concent 33.3g/dl (32.0-37.0) Mean Corpuscular Volume 97.6fl (82.0-101.0) Mean Platelet Volume 7.5fl (7.4-10.4) Monocytes # 0.710^3/ul (0.3-0.9) Monocytes % 5.8% (0.0-11.0) Neutrophils # 11.410^3/ul (1.6-7.5) Neutrophils % 90.6% (39.0-77.0) Nucleated Red Blood Cells # 0.010^3/ul (0.0-0.0) Nucleated Red Blood Cells % 0.0/100WBC (0.0-0.0) Platelet Count 57499^3/UL (140-440) Potassium Level 3.3mmol/L (3.5-5.1) Red Blood Count 3.5110^6/ul (4.70-6.10) Red Cell Distribution Width 15.2% (11.5-14.5) Sodium Level 134mmol/L (135-144) Troponin I 0.167ng/ml (0.00-0.12) White Blood Count 12.610^3/ul (4.8-10.8) Test 10/07/16 10:14 10/07/16 12:07 Arterial Blood HCO3 30.2mmol/L (22.0-26.0) Arterial Blood Base Excess 4.7mmol/L (-3.0-3) Arterial Blood Oxygen Saturation 87.8mmHG (95.0-98.0) Thomas Test ACCEPTAB Arterial Blood Gas Puncture Site Right Radial Arterial Blood Carboxyhemoglobin 1.9% (0.0-3.0) Arterial Blood Date Drawn 10/07/2016 10:40:11 AM Arterial Blood Methemoglobin 0.3% (0.0-1.5) Arterial Blood pCO2 (Temp correct) 48.7mmhg (35-45) Arterial Blood pH (Temp corrected) 7.410 (7.350-7.450) Arterial Blood pO2 (Temp corrected) 57.8mmHG (80-100.0) Blood Gas A-a O2 Differential 77.1mmHg (7.0-24.0) Blood Gas Modality NASAL CANNULA Blood Gas Notified Time 10/07/2016 10:58:53 AM Blood Gas Notified Whom JLD Blood Gas Specimen Source Blood arterial Blood Gas Temperature 37.0C FiO2 27.0% Oxyhemoglobin Percent 85.9% (93.0-99.0) Total Hemoglobin 12.4g/dl (12.0-18.0) Bedside Glucose 76mg/dL (70-220) FUNMI MEZA MD Oct 07, 2016 14:26
[2016-10-07] MEDS: MUPIROCIN 2% 22 GM OINT TOP SCH ×2 (14:30→21:00)
[2016-10-07] MEDS: CLOPIDOGREL 75 MG TAB PO SCH (14:30)
--- NOTE | 2016-10-07 16:13 | PN ---
DATE: 10/07/2016 SUBJECTIVE: No acute changes. The patient is awake, eating lunch, looks comfortable, denies pain, discomfort. No fevers. WBC 12.6, neutrophils 90.6, BUN 34, creatinine 0.63. MICROBIOLOGY: Sputum culture on admission grew E. coli beta-lactamase and Lauren albicans. Nares swab was positive for MRSA. Urine culture also grew Klebsiella pneumoniae. ANTIMICROBIALS: The patient is on: 1. Invanz 2. Fluconazole. PHYSICAL EXAMINATION: GENERAL: This is a well-developed elderly man who is awake, in no distress. HEENT: Head atraumatic, normocephalic. Sclerae anicteric. Buccal mucosa dry. NECK: Supple, trachea midline. CHEST: Rise symmetrical. Breath sounds diminished at the bases. HEART: S1, S2. ABDOMEN: Soft. Bowel sounds present. ASSESSMENT: 1. Pneumonia, status post hypoxemic respiratory failure requiring intubation, sputum culture grew E . coli beta-lactamase and Lauren albicans, remains on antibiotics. 2. Methicillin-resistant Staphylococcus aureus nares colonization. 3. Status post urinary tract infection. 4. Chronic obstructive pulmonary disease exacerbation. 5. History of ischemic cardiomyopathy with automatic implantable cardioverter defibrillator placeme nt. 6. History of coronary artery stenting. PLAN: The patient remains stable. Continue present care, antibiotics, steroid taper, bronchodilato rs and Bactroban to nares. Dictated By: CODY BRANCH TECHNICAL SALES SUPPORT MANAGER for ASAD KEITA/NANDO Conf#: [id number] DID#: [id number]
[2016-10-07] MEDS: ERTAPENEM SODIUM 1 GM in SOD CHLORIDE 0.9% 100 ML IVPB SCH (16:36)
[2016-10-07] MEDS: ATORVASTATIN 10 MG TAB PO SCH (21:35)
[2016-10-07] MEDS: METOPROLOL (XL) 50 MG TAB PO SCH (21:36)
[2016-10-07] MEDS: INSULIN GLARGINE [LANtus] 3 ML PEN SC SCH (21:37)
[2016-10-08] VITALS (12 sets, daily range): BP systolic 128–178; BP diastolic 85–99; PULSE 60–155; RESP 18–20
[2016-10-08] MEDS: ACCU-CHEK XX SCH (02:00)
[2016-10-08] MEDS: ALBUTEROL/IPRATROPIUM (NEB) 3 ML AMP HHN SCH ×4 (02:22→20:22)
[2016-10-08] MEDS: INSULIN ASPART [NOVOLOG] 3 ML PEN SC SCH ×7 (07:55→20:12)
[2016-10-08] MEDS: MUPIROCIN 2% 22 GM OINT TOP SCH ×2 (09:00→20:16)
[2016-10-08] MEDS: ASPIRIN 81 MG TAB PO SCH (09:00)
--- NOTE | 2016-10-08 09:38 | PN ---
DATE: 10/08/2016 PALLIATIVE CARE PROGRESS NOTE I have had a discussion with Mr. Nuñez concerning his ongoing level of care and his code status. It is unclear to me whether or not he truly understands number one, how to take care of himself. He g carlos me a story that he is compliant with his medical regimen, but his mother was in disagreement wi th that when I spoke to her when he was admitted to the intensive care unit, stating that he takes h is oxygen off and he is just generally noncompliant. Mr. Nuñez did tell me he has not seen his card iologist in a very long time and he thinks he only needs to see him when he decides to. We had a lo ng discussion about that. He needs to see his physician much more frequently. I ended the discussi on, as I felt that there was some difficulty in Mr. Nuñez understanding why he is being readmitted t o the hospital so frequently. He seems to think that when he bounces back that he is in fact doing okay. There may be some discussion that can be made for the patient's capacity to make these decisi ons in the future, although at the time of this dictation I will defer and speak to the hide mill man of bioethics about this in more detail. Dictated By: ARJUN ROJAS MD, LP/NANDO Conf#: [id number] DID#: [id number]
[2016-10-08] MEDS: FUROSEMIDE 40 MG TAB PO SCH (10:18)
[2016-10-08] MEDS: CLOPIDOGREL 75 MG TAB PO SCH (10:21)
[2016-10-08] MEDS: FLUCONAZOLE 200 MG TAB PO SCH (10:21)
[2016-10-08] MEDS: LISINOPRIL 5 MG TAB PO SCH (10:21)
[2016-10-08] MEDS: FAMOTIDINE 20 MG TAB PO SCH ×2 (10:21→20:10)
[2016-10-08] MEDS: METOPROLOL (XL) 25 MG TAB PO SCH ×2 (10:22→20:10)
[2016-10-08] MEDS: predniSONE 10 MG TAB PO SCH (10:24)
[2016-10-08] MEDS: ENOXAPARIN 40 MG/0.4 ML SYG SC SCH (10:34)
--- NOTE | 2016-10-08 12:37 | CONS ---
Date/Time of Note Date/Time of Note DATE: 10/08/16 TIME: 12:32 Assessment/Plan Assessment/Plan Chief Complaint/Hosp Course IMPRESSION: 1. Atrial fibrillation with rapid ventricular response.-improved HR and now in SR 2. Congestive heart failure, systolic, acute on chronic. 3. History of cardiomyopathy with decreased left ventricular ejection fraction 20% to 25% per chart biopsy. 4. Shortness of breath. 5. Status post hypercapnic respiratory failure, status post extubation. 6. Chronic obstructive pulmonary disease. 7. Hypertension. 8. Dyslipidemia. 9. History of automatic implantable cardioverter-defibrillator with possible discharge.-s/p interrogation with ICD shock for uncontrolled rapid AF. Per patient possible ICD discharge overnight? 10. Pneumonia. 11.Positive troponin-minimal with no sig uptrend Recc -Tele -serial ecg's -Continue asa/plavix -Continue BB but uptitrate/digoxin -Continue ACEI -Continue statin -add amiodarone in attemot to return patient to SR Problems: Consultation Date/Type/Reason Admit Date/Time Sep 28, 2016 at 14:41 Initial Consult Date 09/28/16 Type of Consultation: Cardiology Reason for Consultation AF/CHF Referring Provider: BAKARI MEZA MD Exam/Review of Systems Vital Signs Vitals Vital Signs Date Time Temp Pulse Resp B/P Pulse Ox O2 Delivery O2 Flow Rate FiO2 10/08/16 11:21 98.0 88 20 143/90 92 10/08/16 09:00 2.0 10/08/16 08:59 Nasal Cannula Intake and Output 10/07/16 10/07/16 10/08/16 15:00 23:00 07:00 Intake Total 1780 ml 900 ml Output Total 750 ml Balance 1780 ml 150 ml Exam Review of Systems: CONSTITUTIONAL: No fevers, chills. PULMONARY: No sob CARDIOVASCULAR: No chest pain/palpitations GASTROINTESTINAL: No nausea/vomiting. GENITOURINARY: No hematuria/dysuria. MUSCULOSKELETAL: No myagias/arthalgias. PSYCHIATRIC: The patient denies depression. NEUROLOGIC: No weakness Constitutional: alert, oriented Psych: no complaints Head: normocephalic ENMT: mucosa pink and moist Neck: jvd (9 cm water), supple Respiratory: diminished breath sounds (at bases/B) Cardiovascular: regular rate and rhythm Gastrointestinal: non-tender, soft Musculoskeletal: muscle tone (normal) Extremities: edema (none) Neurological: other (No focal deficits) Results Result Diagram: 10/07/16 0550 10/07/16 0550 Results 24 hrs Laboratory Tests Test 10/07/16 21:30 10/08/16 07:56 Bedside Glucose 170 100 Medications Medications Current Medications IV Flush (NS 10 ml) 10 ml PRN PRN IV IV PROTOCOL; Start 09/28/16 at 14:00 Ondansetron HCl (Zofran Inj) 4 mg Q6H PRN IV NAUSEA AND/OR VOMITING; Start at 15:00 Nitroglycerin (Nitroglycerin (Sl Tab) 0.4 Mg) 1 tab Q5M PRN SL CHEST PAIN; Start 09/28/16 at 15:00 Acetaminophen (Tylenol Liquid) 650 mg Q6H PRN PO PAIN LEVEL 1-3 OR FEVER; Start 09/28/16 at 15:00 Acetaminophen (Tylenol Tab) 650 mg Q6H PRN PO PAIN LEVEL 1-3 OR FEVER; Start at 15:00 Morphine Sulfate (morphine) 2 mg Q4H PRN IV PAIN LEVEL 7-10 Last administered on 09/29/16 02:30; Admin Dose 2 MG; Start 09/28/16 at 15:00 Lorazepam (Ativan) 1 mg Q2H PRN IV ANXIETY; Start 09/28/16 at 15:00 Docusate Sodium (Colace) 100 mg Q12H PRN PO CONSTIPATION; Start 09/28/16 at 15: 00 Famotidine (Pepcid) 20 mg Q12 PO Last administered on 10/08/16 10:21; Admin Dose 20 MG; Start 09/28/16 at 21:00 Enoxaparin Sodium (Lovenox) 40 mg DAILY SC Last administered on 10/08/16 10:34 ; Admin Dose 40 MG; Start 09/29/16 at 09:00 Aspirin (Aspirin) 81 mg DAILY PO Last administered on 10/08/16 09:00; Admin Dose 81 MG; Start 09/29/16 at 09:00 Atorvastatin Calcium (Lipitor) 10 mg QHS PO Last administered on 10/07/16 21:35 ; Admin Dose 10 MG; Start 09/28/16 at 21:00 Clopidogrel Bisulfate (plaVIX) 75 mg DAILY PO Last administered on 10/08/16 10: 21; Admin Dose 75 MG; Start 09/29/16 at 09:00 Furosemide (Lasix) 40 mg DAILY PO Last administered on 10/08/16 10:18; Admin Dose 40 MG; Start 09/29/16 at 09:00 Tiotropium [place] (Spiriva) 1 inh DAILY INH ; Start 09/28/16 at 16:00; Status Future Hold Hydralazine HCl (Apresoline) 10 mg Q6H PRN IV ELEVATED BLOOD PRESSURE Last administered on 10/03/16 18:26; Admin Dose 10 MG; Start 09/28/16 at 16:00 Mupirocin (Bactroban) 1 applic BID TOP Last administered on 10/08/16 09:00; Admin Dose 1 APPLIC; Start 09/30/16 at 09:00 Insulin Glargine (Lantus) 9 unit HS SC Last administered on 10/07/16 21:37; Admin Dose 9 UNIT; Start 10/04/16 at 21:00 Diagnostic Test (Pha) (Accucheck) 1 ea 02 XX ; Start 10/05/16 at 02:00 Miscellaneous Information 1 ea NOTE XX ; Start 10/04/16 at 09:00 Glucose (Glutose) 15 gm Q15M PRN PO DECREASED GLUCOSE; Start 10/04/16 at 09:00 Glucose (Glutose) 22.5 gm Q15M PRN PO DECREASED GLUCOSE; Start 10/04/16 at 09: 00 Dextrose (D50w Syringe) 25 ml Q15M PRN IV DECREASED GLUCOSE; Start 10/04/16 at 09:00 Dextrose (D50w Syringe) 50 ml Q15M PRN IV DECREASED GLUCOSE; Start 10/04/16 at 09:00 Glucagon (Glucagen) 1 mg Q15M PRN IM DECREASED GLUCOSE; Start 10/04/16 at 09:00 Glucose (Glutose) 15 gm Q15M PRN BUCCAL DECREASED GLUCOSE; Start 10/04/16 at 09 :00 Prednisone (Prednisone) 30 mg DAILY PO Last administered on 10/08/16 10:24; Admin Dose 30 MG; Start 10/06/16 at 09:00 Lisinopril (Zestril) 10 mg DAILY PO Last administered on 10/08/16 10:21; Admin Dose 10 MG; Start 10/06/16 at 09:00 Metoprolol Succinate 50 mg 50 mg DAILY PO Last administered on 10/08/16 10:22; Admin Dose 50 MG; Start 10/06/16 at 09:00 Ertapenem/Sodium Chloride (Invanz/NS) 100 ml @ 200 mls/hr Q24H IVPB Last administered on 10/07/16 16:36; Admin Dose 200 MLS/HR; Start 10/05/16 at 16:00 Fluconazole (Diflucan) 200 mg DAILY PO Last administered on 10/08/16 10:21; Admin Dose 200 MG; Start 10/05/16 at 16:00 Metoprolol Tartrate (Lopressor) 5 mg Q4 PRN IV HR>110 Hold SBP<100; Start 10/05 at 19:30 Metoprolol Succinate (Toprol Xl) 50 mg HS PO Last administered on 10/07/16 21: 36; Admin Dose 50 MG; Start 10/06/16 at 21:00 СВЕТЛАНА PADRON Oct 08, 2016 12:37
--- NOTE | 2016-10-08 13:11 | CONS ---
Date/Time of Note Date/Time of Note DATE: 10/08/16 TIME: 13:07 Assessment/Plan Assessment/Plan Additional Assessment/Plan Assessment and recommendations; 1. Patient admitted with respiratory failure due to severe bilateral pneumonia and COPD exacerbation with severe hypercapnia. 2. Marked overall clinical improvement. Underlying severe COPD. 4. CHF clinically compensated 5. Atrial fibrillation 6. Recent right toe fracture. Patient can be discharged home. Antibiotics need to be discontinued. Prednisone dosing has been decreased from 30 mg a day to 20 mg a day for now. Consultation Date/Type/Reason Admit Date/Time Sep 28, 2016 at 14:41 Initial Consult Date 09/28/16 Type of Consultation: Cardiology Referring Provider: BAKARI MEZA MD 24 HR Interval Summary Free Text/Dictation Patient is doing very well. Denies any shortness of breath. Any chest pain, wheezing, sputum production. General examination; middle aged man awake alert currently in no distress. Exam/Review of Systems Vital Signs Vitals Vital Signs Date Time Temp Pulse Resp B/P Pulse Ox O2 Delivery O2 Flow Rate FiO2 10/08/16 12:45 60 10/08/16 11:21 98.0 20 143/90 92 10/08/16 09:00 2.0 10/08/16 08:59 Nasal Cannula Intake and Output 10/07/16 10/07/16 10/08/16 15:00 23:00 07:00 Intake Total 1780 ml 900 ml Output Total 750 ml Balance 1780 ml 150 ml Exam H EENT examination; supple neck, no JVD. No lymphadenopathy. No thyromegaly. Pharynx is clear. Chest examination; diminished but clear breath sounds. S1-S2 audible no murmurs there is a pacemaker in the left chest wall. Abdomen examination; nondistended, nontender, no organomegaly. Bowel sounds audible. Extremity examination; no peripheral edema. Patient has stable Duptyrens contractures bilaterally. Right foot is in a cast. LODGING MANAGER examination; no focal deficit. Results Result Diagram: 10/07/16 0550 10/07/16 0550 Results 24 hrs Laboratory Tests Test 10/07/16 21:30 10/08/16 07:56 10/08/16 12:36 Bedside Glucose 170 100 211 Medications Medications Current Medications IV Flush (NS 10 ml) 10 ml PRN PRN IV IV PROTOCOL; Start 09/28/16 at 14:00 Ondansetron HCl (Zofran Inj) 4 mg Q6H PRN IV NAUSEA AND/OR VOMITING; Start at 15:00 Nitroglycerin (Nitroglycerin (Sl Tab) 0.4 Mg) 1 tab Q5M PRN SL CHEST PAIN; Start 09/28/16 at 15:00 Acetaminophen (Tylenol Liquid) 650 mg Q6H PRN PO PAIN LEVEL 1-3 OR FEVER; Start 09/28/16 at 15:00 Acetaminophen (Tylenol Tab) 650 mg Q6H PRN PO PAIN LEVEL 1-3 OR FEVER; Start at 15:00 Morphine Sulfate (morphine) 2 mg Q4H PRN IV PAIN LEVEL 7-10 Last administered on 09/29/16 02:30; Admin Dose 2 MG; Start 09/28/16 at 15:00 Lorazepam (Ativan) 1 mg Q2H PRN IV ANXIETY; Start 09/28/16 at 15:00 Docusate Sodium (Colace) 100 mg Q12H PRN PO CONSTIPATION; Start 09/28/16 at 15: 00 Famotidine (Pepcid) 20 mg Q12 PO Last administered on 10/08/16 10:21; Admin Dose 20 MG; Start 09/28/16 at 21:00 Enoxaparin Sodium (Lovenox) 40 mg DAILY SC Last administered on 10/08/16 10:34 ; Admin Dose 40 MG; Start 09/29/16 at 09:00 Aspirin (Aspirin) 81 mg DAILY PO Last administered on 10/08/16 09:00; Admin Dose 81 MG; Start 09/29/16 at 09:00 Atorvastatin Calcium (Lipitor) 10 mg QHS PO Last administered on 10/07/16 21:35 ; Admin Dose 10 MG; Start 09/28/16 at 21:00 Clopidogrel Bisulfate (plaVIX) 75 mg DAILY PO Last administered on 10/08/16 10: 21; Admin Dose 75 MG; Start 09/29/16 at 09:00 Furosemide (Lasix) 40 mg DAILY PO Last administered on 10/08/16 10:18; Admin Dose 40 MG; Start 09/29/16 at 09:00 Tiotropium [place] (Spiriva) 1 inh DAILY INH ; Start 09/28/16 at 16:00; Status Future Hold Hydralazine HCl (Apresoline) 10 mg Q6H PRN IV ELEVATED BLOOD PRESSURE Last administered on 10/03/16 18:26; Admin Dose 10 MG; Start 09/28/16 at 16:00 Mupirocin (Bactroban) 1 applic BID TOP Last administered on 10/08/16 09:00; Admin Dose 1 APPLIC; Start 09/30/16 at 09:00 Insulin Glargine (Lantus) 9 unit HS SC Last administered on 10/07/16 21:37; Admin Dose 9 UNIT; Start 10/04/16 at 21:00 Diagnostic Test (Pha) (Accucheck) 1 ea 02 XX ; Start 10/05/16 at 02:00 Miscellaneous Information 1 ea NOTE XX ; Start 10/04/16 at 09:00 Glucose (Glutose) 15 gm Q15M PRN PO DECREASED GLUCOSE; Start 10/04/16 at 09:00 Glucose (Glutose) 22.5 gm Q15M PRN PO DECREASED GLUCOSE; Start 10/04/16 at 09: 00 Dextrose (D50w Syringe) 25 ml Q15M PRN IV DECREASED GLUCOSE; Start 10/04/16 at 09:00 Dextrose (D50w Syringe) 50 ml Q15M PRN IV DECREASED GLUCOSE; Start 10/04/16 at 09:00 Glucagon (Glucagen) 1 mg Q15M PRN IM DECREASED GLUCOSE; Start 10/04/16 at 09:00 Glucose (Glutose) 15 gm Q15M PRN BUCCAL DECREASED GLUCOSE; Start 10/04/16 at 09 :00 Prednisone (Prednisone) 30 mg DAILY PO Last administered on 10/08/16 10:24; Admin Dose 30 MG; Start 10/06/16 at 09:00 Lisinopril 10 mg 10 mg DAILY PO Last administered on 10/08/16 10:21; Admin Dose 10 MG; Start 10/06/16 at 09:00 Ertapenem/Sodium Chloride (Invanz/NS) 100 ml @ 200 mls/hr Q24H IVPB Last administered on 10/07/16 16:36; Admin Dose 200 MLS/HR; Start 10/05/16 at 16:00 Fluconazole (Diflucan) 200 mg DAILY PO Last administered on 10/08/16 10:21; Admin Dose 200 MG; Start 10/05/16 at 16:00 Metoprolol Tartrate (Lopressor) 5 mg Q4 PRN IV HR>110 Hold SBP<100; Start 10/05 at 19:30 Metoprolol Succinate (Toprol Xl) 75 mg HS PO ; Start 10/08/16 at 21:00; Status UNV Metoprolol Succinate (Toprol Xl) 75 mg DAILY PO ; Start 10/09/16 at 09:00; Status UNV Amiodarone HCl (Cordarone) 200 mg BID GTB ; Start 10/08/16 at 21:00; Status UNV ROSE PÉREZ Oct 08, 2016 13:11
--- NOTE | 2016-10-08 14:13 | PN ---
Date/Time of Note Date/Time of Note DATE: 10/08/16 TIME: 14:11 Assessment/Plan VTE Prophylaxis VTE Prophylaxis Intervention: LMWH Lines/Catheters IV [facility]from [facility] [facility] Urinary Cath still in place: No Assessment/Plan Chief Complaint/Hosp Course This is a 66-year-old gentleman who is known to our service from prior hospitalization with a past medical history of ischemic cardiomyopathy, ejection fraction 25%, coronary artery disease, hypertension, dyslipidemia, COPD , CHF who resides at [facility], sick sinus syndrome, status post pacemaker placement, ischemic cardiomyopathy, atrial fibrillation who was found to have increased shortness of breath at [facility] and was transferred to [facility] Emergency Room via EMS, where he was found to have oxygen saturation of 69% in room air. His ABG showed pH of 7.269, pCO2 94.4, pCO2 57.5, bicarbonate 42.3, oxygen saturation 85.1%. He was placed on BiPAP, which he was not able to tolerate and continued to become more hypoxic. Therefore, he was intubated in the course of the emergency room. Pulmonology was consulted. The patient was also treated with Solu-Medrol, cefepime, breathing treatment, and at this time he has been placed on propofol secondary to intubation. Patient was treated with antibiotics, nebulizer and steroid for pneumonia and COPD exacerbation, symptoms improved. He got extubated. Respiratory culture positive for ESBL E. Coli, and Lauren albicans, that he is on invanz and diflucan. Patient is clinically stable. He will be discharged to SNF for iv antibiotics and physical therapy. Patient had atrial fibrillation with RVR. Toprol XL was increased to 50 mg daily. He is with sinus rhythm now. He had CAD, troponin was slightly increased to 0.167. It is considered tachycardia related. He had ICD shock like feeling that resolved after ICD was adjusted. Problems: Assessment/Plan 1. facility acquired pneumonia, with ESBL E. Coli, and Lauren albicans, improving on invanz and diflucan, discharge when finished invanz 2. COPD exacerbation, stable, neb, decrease steroid 3. Atrial fibrillation with RVR, sinus now, follow up with cardiology 4. Mildly elevated troponin, likely tachycardia related, follow up with cardiology 5. Congestive heart failure, systolic, chronic, stable 6. Ischemic cardiomyopathy 7. CAD 8. s/p ICD, stable 9. Essential hypertension, stable 10. Dyslipidemia. Continue statin. Subjective 24 Hr Interval Summary Free Text/Dictation doing well, complains of FLETCHER Exam/Review of Systems Vital Signs Vitals Vital Signs Date Time Temp Pulse Resp B/P Pulse Ox O2 Delivery O2 Flow Rate FiO2 10/08/16 12:45 60 10/08/16 11:21 98.0 20 143/90 92 10/08/16 09:00 2.0 10/08/16 08:59 Nasal Cannula Intake and Output 10/07/16 10/07/16 10/08/16 15:00 23:00 07:00 Intake Total 1780 ml 900 ml Output Total 750 ml Balance 1780 ml 150 ml Exam Constitutional: alert, oriented, well developed Psych: nl mood/affect, no complaints Head: atraumatic, normocephalic Eyes: EOMI, nl conjunctiva, nl lids ENMT: nl external ears & nose, nl lips & teeth, nl nasal mucosa & septum Neck: non-tender, supple Respiratory: clear to auscultation Cardiovascular: nl pulses, regular rate and rhythm Gastrointestinal: nl liver, spleen, non-tender, soft, No ascites, No bowel sounds, No distended, No firm, No hepatomegaly, No mass , No rebound or guarding, No splenomegaly, No surgical scars, No tender Musculoskeletal: nl extremities to inspection Extremities: normal pulses Neurological: SILVER CLEANER II-XII intact, nl mental status, nl speech, nl strength Results Result Diagram: 10/07/16 0550 10/07/16 0550 Results 24 hrs Laboratory Tests Test 10/07/16 21:30 10/08/16 07:56 10/08/16 12:36 Bedside Glucose 170 100 211 Medications Medications Current Medications IV Flush (NS 10 ml) 10 ml PRN PRN IV IV PROTOCOL; Start 09/28/16 at 14:00 Ondansetron HCl (Zofran Inj) 4 mg Q6H PRN IV NAUSEA AND/OR VOMITING; Start at 15:00 Nitroglycerin (Nitroglycerin (Sl Tab) 0.4 Mg) 1 tab Q5M PRN SL CHEST PAIN; Start 09/28/16 at 15:00 Acetaminophen (Tylenol Liquid) 650 mg Q6H PRN PO PAIN LEVEL 1-3 OR FEVER; Start 09/28/16 at 15:00 Acetaminophen (Tylenol Tab) 650 mg Q6H PRN PO PAIN LEVEL 1-3 OR FEVER; Start at 15:00 Morphine Sulfate (morphine) 2 mg Q4H PRN IV PAIN LEVEL 7-10 Last administered on 09/29/16 02:30; Admin Dose 2 MG; Start 09/28/16 at 15:00 Lorazepam (Ativan) 1 mg Q2H PRN IV ANXIETY; Start 09/28/16 at 15:00 Docusate Sodium (Colace) 100 mg Q12H PRN PO CONSTIPATION; Start 09/28/16 at 15: 00 Famotidine (Pepcid) 20 mg Q12 PO Last administered on 10/08/16 10:21; Admin Dose 20 MG; Start 09/28/16 at 21:00 Enoxaparin Sodium (Lovenox) 40 mg DAILY SC Last administered on 10/08/16 10:34 ; Admin Dose 40 MG; Start 09/29/16 at 09:00 Aspirin (Aspirin) 81 mg DAILY PO Last administered on 10/08/16 09:00; Admin Dose 81 MG; Start 09/29/16 at 09:00 Atorvastatin Calcium (Lipitor) 10 mg QHS PO Last administered on 10/07/16 21:35 ; Admin Dose 10 MG; Start 09/28/16 at 21:00 Clopidogrel Bisulfate (plaVIX) 75 mg DAILY PO Last administered on 10/08/16 10: 21; Admin Dose 75 MG; Start 09/29/16 at 09:00 Furosemide (Lasix) 40 mg DAILY PO Last administered on 10/08/16 10:18; Admin Dose 40 MG; Start 09/29/16 at 09:00 Tiotropium [place] (Spiriva) 1 inh DAILY INH ; Start 09/28/16 at 16:00; Status Future Hold Hydralazine HCl (Apresoline) 10 mg Q6H PRN IV ELEVATED BLOOD PRESSURE Last administered on 10/03/16 18:26; Admin Dose 10 MG; Start 09/28/16 at 16:00 Mupirocin (Bactroban) 1 applic BID TOP Last administered on 10/08/16 09:00; Admin Dose 1 APPLIC; Start 09/30/16 at 09:00 Insulin Glargine (Lantus) 9 unit HS SC Last administered on 10/07/16 21:37; Admin Dose 9 UNIT; Start 10/04/16 at 21:00 Diagnostic Test (Pha) (Accucheck) 1 ea 02 XX ; Start 10/05/16 at 02:00 Miscellaneous Information 1 ea NOTE XX ; Start 10/04/16 at 09:00 Glucose (Glutose) 15 gm Q15M PRN PO DECREASED GLUCOSE; Start 10/04/16 at 09:00 Glucose (Glutose) 22.5 gm Q15M PRN PO DECREASED GLUCOSE; Start 10/04/16 at 09: 00 Dextrose (D50w Syringe) 25 ml Q15M PRN IV DECREASED GLUCOSE; Start 10/04/16 at 09:00 Dextrose (D50w Syringe) 50 ml Q15M PRN IV DECREASED GLUCOSE; Start 10/04/16 at 09:00 Glucagon (Glucagen) 1 mg Q15M PRN IM DECREASED GLUCOSE; Start 10/04/16 at 09:00 Glucose (Glutose) 15 gm Q15M PRN BUCCAL DECREASED GLUCOSE; Start 10/04/16 at 09 :00 Lisinopril 10 mg 10 mg DAILY PO Last administered on 10/08/16 10:21; Admin Dose 10 MG; Start 10/06/16 at 09:00 Ertapenem/Sodium Chloride (Invanz/NS) 100 ml @ 200 mls/hr Q24H IVPB Last administered on 10/07/16 16:36; Admin Dose 200 MLS/HR; Start 10/05/16 at 16:00 Fluconazole (Diflucan) 200 mg DAILY PO Last administered on 10/08/16 10:21; Admin Dose 200 MG; Start 10/05/16 at 16:00 Metoprolol Tartrate (Lopressor) 5 mg Q4 PRN IV HR>110 Hold SBP<100; Start 10/05 at 19:30 Metoprolol Succinate (Toprol Xl) 75 mg HS PO ; Start 10/08/16 at 21:00 Metoprolol Succinate (Toprol Xl) 75 mg DAILY PO ; Start 10/09/16 at 09:00 Amiodarone HCl (Cordarone) 200 mg BID GTB ; Start 10/08/16 at 21:00 Prednisone (Prednisone) 20 mg DAILY NGT ; Start 10/09/16 at 09:00 FUNMI MEZA MD Oct 08, 2016 14:13
--- NOTE | 2016-10-08 15:15 | CONS ---
Date/Time of Note Date/Time of Note DATE: 10/08/16 TIME: 15:14 Assessment/Plan Assessment/Plan Chief Complaint/Hosp Course SUBJECTIVE: No acute changes. The patient is alert, looks comfortable, no fevers. MICROBIOLOGY: Urine on admission grew Klebsiella, sputum culture grew E. coli ESBL Lauren albicans. Nares swab was positive for MRSA. ANTIMICROBIALS: The patient is currently on: 1. Fluconazole. 2. Invanz. 3. Topical Bactroban to nares. PHYSICAL EXAMINATION: GENERAL: Well-developed, ill-appearing, elderly man who is alert, in no distress. HEENT: Head atraumatic, normocephalic. Sclerae anicteric. Buccal mucosa dry. NECK: Supple, trachea midline. CHEST: Rise symmetrical. Breath sounds with bilateral scattered rhonchi. HEART: S1, S2. ABDOMEN: Soft. Bowel tones present. EXTREMITIES: No cyanosis. ASSESSMENT: 1. Acute on chronic hypoxemic respiratory failure secondary to chronic obstructive pulmonary disease exacerbation and questionable healthcare- associated pneumonia. 2. Urinary tract infection. 3. Congestive heart failure. 4. Ischemic cardiomyopathy with a history of automatic implantable cardioverter defibrillator. 5. History of coronary artery stenting. 6. Methicillin-resistant Staphylococcus aureus nares colonization. PLAN: Overall improving. As per dw pulmonary team will dc abx and observe DW pt Problems: Consultation Date/Type/Reason Admit Date/Time Sep 28, 2016 at 14:41 Initial Consult Date 09/28/16 Type of Consultation: ID Referring Provider: BAKARI MEZA MD Exam/Review of Systems Vital Signs Vitals Vital Signs Date Time Temp Pulse Resp B/P Pulse Ox O2 Delivery O2 Flow Rate FiO2 10/08/16 14:33 94 3.0 10/08/16 14:32 92 23 Nasal Cannula 10/08/16 11:21 98.0 143/90 Intake and Output 10/07/16 10/07/16 10/08/16 15:00 23:00 07:00 Intake Total 1780 ml 900 ml Output Total 750 ml Balance 1780 ml 150 ml Results Result Diagram: 10/07/16 0550 10/07/16 0550 Results 24 hrs Laboratory Tests Test 10/07/16 21:30 10/08/16 07:56 10/08/16 12:36 Bedside Glucose 170 100 211 Medications Medications Current Medications IV Flush (NS 10 ml) 10 ml PRN PRN IV IV PROTOCOL; Start 09/28/16 at 14:00 Ondansetron HCl (Zofran Inj) 4 mg Q6H PRN IV NAUSEA AND/OR VOMITING; Start at 15:00 Nitroglycerin (Nitroglycerin (Sl Tab) 0.4 Mg) 1 tab Q5M PRN SL CHEST PAIN; Start 09/28/16 at 15:00 Acetaminophen (Tylenol Liquid) 650 mg Q6H PRN PO PAIN LEVEL 1-3 OR FEVER; Start 09/28/16 at 15:00 Acetaminophen (Tylenol Tab) 650 mg Q6H PRN PO PAIN LEVEL 1-3 OR FEVER; Start at 15:00 Morphine Sulfate (morphine) 2 mg Q4H PRN IV PAIN LEVEL 7-10 Last administered on 09/29/16 02:30; Admin Dose 2 MG; Start 09/28/16 at 15:00 Lorazepam (Ativan) 1 mg Q2H PRN IV ANXIETY; Start 09/28/16 at 15:00 Docusate Sodium (Colace) 100 mg Q12H PRN PO CONSTIPATION; Start 09/28/16 at 15: 00 Famotidine (Pepcid) 20 mg Q12 PO Last administered on 10/08/16 10:21; Admin Dose 20 MG; Start 09/28/16 at 21:00 Enoxaparin Sodium (Lovenox) 40 mg DAILY SC Last administered on 10/08/16 10:34 ; Admin Dose 40 MG; Start 09/29/16 at 09:00 Aspirin (Aspirin) 81 mg DAILY PO Last administered on 10/08/16 09:00; Admin Dose 81 MG; Start 09/29/16 at 09:00 Atorvastatin Calcium (Lipitor) 10 mg QHS PO Last administered on 10/07/16 21:35 ; Admin Dose 10 MG; Start 09/28/16 at 21:00 Clopidogrel Bisulfate (plaVIX) 75 mg DAILY PO Last administered on 10/08/16 10: 21; Admin Dose 75 MG; Start 09/29/16 at 09:00 Furosemide (Lasix) 40 mg DAILY PO Last administered on 10/08/16 10:18; Admin Dose 40 MG; Start 09/29/16 at 09:00 Tiotropium [place] (Spiriva) 1 inh DAILY INH ; Start 09/28/16 at 16:00; Status Future Hold Hydralazine HCl (Apresoline) 10 mg Q6H PRN IV ELEVATED BLOOD PRESSURE Last administered on 10/03/16 18:26; Admin Dose 10 MG; Start 09/28/16 at 16:00 Mupirocin (Bactroban) 1 applic BID TOP Last administered on 10/08/16 09:00; Admin Dose 1 APPLIC; Start 09/30/16 at 09:00 Insulin Glargine (Lantus) 9 unit HS SC Last administered on 10/07/16 21:37; Admin Dose 9 UNIT; Start 10/04/16 at 21:00 Diagnostic Test (Pha) (Accucheck) 1 ea 02 XX ; Start 10/05/16 at 02:00 Miscellaneous Information 1 ea NOTE XX ; Start 10/04/16 at 09:00 Glucose (Glutose) 15 gm Q15M PRN PO DECREASED GLUCOSE; Start 10/04/16 at 09:00 Glucose (Glutose) 22.5 gm Q15M PRN PO DECREASED GLUCOSE; Start 10/04/16 at 09: 00 Dextrose (D50w Syringe) 25 ml Q15M PRN IV DECREASED GLUCOSE; Start 10/04/16 at 09:00 Dextrose (D50w Syringe) 50 ml Q15M PRN IV DECREASED GLUCOSE; Start 10/04/16 at 09:00 Glucagon (Glucagen) 1 mg Q15M PRN IM DECREASED GLUCOSE; Start 10/04/16 at 09:00 Glucose (Glutose) 15 gm Q15M PRN BUCCAL DECREASED GLUCOSE; Start 10/04/16 at 09 :00 Lisinopril 10 mg 10 mg DAILY PO Last administered on 10/08/16 10:21; Admin Dose 10 MG; Start 10/06/16 at 09:00 Ertapenem/Sodium Chloride (Invanz/NS) 100 ml @ 200 mls/hr Q24H IVPB Last administered on 10/07/16 16:36; Admin Dose 200 MLS/HR; Start 10/05/16 at 16:00 Fluconazole (Diflucan) 200 mg DAILY PO Last administered on 10/08/16 10:21; Admin Dose 200 MG; Start 10/05/16 at 16:00 Metoprolol Tartrate (Lopressor) 5 mg Q4 PRN IV HR>110 Hold SBP<100; Start 10/05 at 19:30 Metoprolol Succinate (Toprol Xl) 75 mg HS PO ; Start 10/08/16 at 21:00 Metoprolol Succinate (Toprol Xl) 75 mg DAILY PO ; Start 10/09/16 at 09:00 Amiodarone HCl (Cordarone) 200 mg BID GTB ; Start 10/08/16 at 21:00 Prednisone (Prednisone) 20 mg DAILY NGT ; Start 10/09/16 at 09:00 CODY BRANCH NP Oct 08, 2016 15:15
[2016-10-08] MEDS ORDERED: AMIO200T2 PO (17:43)
--- NOTE | 2016-10-08 17:45 | DS ---
Date/Time of Note Date/Time of Note DATE: 10/08/16 TIME: 17:40 Discharge Summary Admission/Discharge Info Admit Date/Time Sep 28, 2016 at 14:41 Discharge Date/Time Final Diagnosis 1. facility acquired pneumonia, with ESBL E. Coli, and Lauren albicans, treated 2. COPD exacerbation, stable, neb, decrease steroid 3. Atrial fibrillation with RVR, sinus now, on amiodarone 4. Mildly elevated troponin, likely tachycardia related, follow up with cardiology 5. Congestive heart failure, systolic, chronic, stable 6. Ischemic cardiomyopathy 7. CAD 8. s/p ICD, stable 9. Essential hypertension, stable 10. Dyslipidemia. Continue statin Patient Condition: Stable Hospital Course This is a 66-year-old gentleman who is known to our service from prior hospitalization with a past medical history of ischemic cardiomyopathy, ejection fraction 25%, coronary artery disease, hypertension, dyslipidemia, COPD , CHF who resides at group home [facility], sick sinus syndrome, status post pacemaker placement, ischemic cardiomyopathy, atrial fibrillation who was found to have increased shortness of breath at group home [facility] and was transferred to [facility] Emergency Room via EMS, where he was found to have oxygen saturation of 69% in room air. His ABG showed pH of 7.269, pCO2 94.4, pCO2 57.5, bicarbonate 42.3, oxygen saturation 85.1%. He was placed on BiPAP, which he was not able to tolerate and continued to become more hypoxic. Therefore, he was intubated in the course of the emergency room. Pulmonology was consulted. The patient was also treated with Solu-Medrol, cefepime, breathing treatment, and at this time he has been placed on propofol secondary to intubation. Patient was treated with antibiotics, nebulizer and steroid for pneumonia and COPD exacerbation, symptoms improved. He got extubated. Respiratory culture positive for ESBL E. Coli, and Lauren albicans, that he is on invanz and diflucan. Patient is clinically stable. No more antibiotics is needed per ID. Patient had atrial fibrillation with RVR. Toprol XL was increased to 50 mg daily. He is with sinus rhythm now. He had CAD, troponin was slightly increased to 0.167. It is considered tachycardia related. He had ICD shock like feeling that resolved after ICD was adjusted. Home Meds Active Scripts Metoprolol Succinate* (Toprol XL*) 50 Mg Tab.er.24h, 50 MG PO HS for 30 Days Prov:FUNMI MEZA MD 10/07/16 Prednisone* (Prednisone*) 20 Mg Tab, 20 MG PO DAILY for 3 Days, TAB prednisone 20 mg po daily for 3 days, then 10 mg po daily for 3 days Prov:FUNMI MEZA MD 10/07/16 Ipratropium-Albuterol (Ipratropium-Albuterol) 0.5-3 Mg/3 Ml Ampul.neb, 3 ML HHN Q6H RESP THERAPY for 10 Days Prov:FUNMI MEZA MD 10/07/16 Enoxaparin Sodium* (Enoxaparin Sodium*) 40 Mg/0.4 Ml Syringe, 40 MG SC DAILY for 5 Days Prov:FUNMI MEZA MD 10/07/16 Reported Medications Tiotropium [place]* (Spiriva*) 18 Mcg Cap.w.dev, 1 CAP INHALATION DAILY, #30 CAP 09/28/16 Salmeterol Xinaf/Fluticasone* (Advair*) 250-50 Diskus Inhaler, 1 INH INHALATION BID, #1 INHALER 09/28/16 Lisinopril* (Lisinopril*) 5 Mg Tablet, 5 MG PO DAILY, #30 TAB 09/28/16 Furosemide* (Furosemide*) 40 Mg Tablet, 40 MG PO DAILY, TAB 09/28/16 Clopidogrel Bisulfate (Clopidogrel) 75 Mg Tablet, 75 MG PO DAILY, #30 TAB 09/28/16 Atorvastatin Calcium (Atorvastatin Calcium) 10 Mg Tablet, 10 MG PO QHS, #30 TAB 09/28/16 Aspirin* (Aspirin* Chew) 81 Mg Tab.chew, 81 MG PO DAILY, TAB.CHEW 09/28/16 Discontinued Reported Medications Metoprolol Succinate* (Toprol XL*) 25 Mg Tab.sr.24h, 25 MG PO DAILY, #30 TAB 09/28/16 Pending Labs Laboratory Tests Test 10/07/16 21:30 10/08/16 07:56 10/08/16 12:36 10/08/16 17:37 Bedside Glucose 170mg/dL (70-220) 100mg/dL (70-220) 211mg/dL (70-220) 134mg/dL (70-220) FUNMI MEZA MD Oct 08, 2016 17:45
--- NOTE | 2016-10-08 19:15 | RADRPT ---
Vent Rate: 91 bpm RR Interval: 0 msec WV Interval: 172 msec QRS Duration: 124 msec QT Interval: 378 msec QTC Interval: 464 msec P-R-T [place]: 127 - -40 - 9 degrees Atrial flutter Left axis deviation RSR apos; orattern in V1 suggests right ventricular conduction delay Abnormal ECG Electronically Signed By: Chaim Mitchell [id number]
[2016-10-08] MEDS: ATORVASTATIN 10 MG TAB PO SCH (20:10)
[2016-10-08] MEDS: AMIODARONE 200 MG TAB GTB SCH (20:10)
[2016-10-08] MEDS: INSULIN GLARGINE [LANtus] 3 ML PEN SC SCH (20:13)
[2016-10-09] VITALS (12 sets, daily range): BP systolic 117–137; BP diastolic 77–92; PULSE 60–110; RESP 18–19
[2016-10-09] MEDS: ALBUTEROL/IPRATROPIUM (NEB) 3 ML AMP HHN SCH ×4 (02:00→20:06)
[2016-10-09] MEDS: ACCU-CHEK XX SCH (02:00)
[2016-10-09] MEDS: INSULIN ASPART [NOVOLOG] 3 ML PEN SC SCH ×7 (07:42→20:42)
[2016-10-09] MEDS: MUPIROCIN 2% 22 GM OINT TOP SCH ×2 (09:00→20:46)
--- NOTE | 2016-10-09 09:25 | CONS ---
Date/Time of Note Date/Time of Note DATE: 10/09/16 TIME: 09:21 Assessment/Plan Assessment/Plan Additional Assessment/Plan Assessment and recommendations; next 1. Patient admitted with respiratory failure due to bilateral pneumonia and hypercapnic respiratory failure doing very well now. 2. Recurrent admissions to the hospital for COPD exacerbation. 3. Cardio myopathy and CHF clinically compensated. 4. Stable hypertension 5. Diabetes which is fairly stable as well Continue current treatment. Continue current prednisone dosing. Patient is off antibiotics. Can be either discharged home or to a snf. Consultation Date/Type/Reason Admit Date/Time Sep 28, 2016 at 14:41 Initial Consult Date 09/28/16 Type of Consultation: pulmonary Referring Provider: BAKARI MEZA MD 24 HR Interval Summary Free Text/Dictation Patient is doing very well. Denies any shortness of breath. Any wheezing, chest pain, sputum production. General examination; middle aged man, awake alert currently in no distress. Exam/Review of Systems Vital Signs Vitals Vital Signs Date Time Temp Pulse Resp B/P Pulse Ox O2 Delivery O2 Flow Rate FiO2 10/09/16 08:01 88 16 95 Nasal Cannula 3.0 10/09/16 07:45 97.5 137/92 Intake and Output 10/08/16 10/08/16 10/09/16 15:00 23:00 07:00 Intake Total 960 ml 800 ml Output Total 600 ml 650 ml Balance 360 ml 150 ml Exam H EENT examination; supple neck, no JVD. Pharynx is clear. No neck masses. Chest examination; diminished but clear breath sounds bilaterally. S1-S2 audible no murmurs the pacemaker in the left chest wall. Abdomen examination; soft, nondistended. Bowel sounds audible. Nontender. Extremity examination; no peripheral edema. Patient right foot is in a cast. Patient has stable bilateral Dupuytren's contractures. [employer] examination; no focal deficit. Results Result Diagram: 10/07/16 0550 10/07/16 0550 Results 24 hrs Laboratory Tests Test 10/08/16 12:36 10/08/16 17:37 10/08/16 19:58 10/09/16 07:40 Bedside Glucose 211 134 261 H 110 Medications Medications Current Medications IV Flush (NS 10 ml) 10 ml PRN PRN IV IV PROTOCOL; Start 09/28/16 at 14:00 Ondansetron HCl (Zofran Inj) 4 mg Q6H PRN IV NAUSEA AND/OR VOMITING; Start at 15:00 Nitroglycerin (Nitroglycerin (Sl Tab) 0.4 Mg) 1 tab Q5M PRN SL CHEST PAIN; Start 09/28/16 at 15:00 Acetaminophen (Tylenol Liquid) 650 mg Q6H PRN PO PAIN LEVEL 1-3 OR FEVER; Start 09/28/16 at 15:00 Acetaminophen (Tylenol Tab) 650 mg Q6H PRN PO PAIN LEVEL 1-3 OR FEVER; Start at 15:00 Morphine Sulfate (morphine) 2 mg Q4H PRN IV PAIN LEVEL 7-10 Last administered on 09/29/16 02:30; Admin Dose 2 MG; Start 09/28/16 at 15:00 Lorazepam (Ativan) 1 mg Q2H PRN IV ANXIETY; Start 09/28/16 at 15:00 Docusate Sodium (Colace) 100 mg Q12H PRN PO CONSTIPATION; Start 09/28/16 at 15: 00 Famotidine (Pepcid) 20 mg Q12 PO Last administered on 10/08/16 20:10; Admin Dose 20 MG; Start 09/28/16 at 21:00 Enoxaparin Sodium (Lovenox) 40 mg DAILY SC Last administered on 10/08/16 10:34 ; Admin Dose 40 MG; Start 09/29/16 at 09:00 Aspirin (Aspirin) 81 mg DAILY PO Last administered on 10/08/16 09:00; Admin Dose 81 MG; Start 09/29/16 at 09:00 Atorvastatin Calcium (Lipitor) 10 mg QHS PO Last administered on 10/08/16 20:10 ; Admin Dose 10 MG; Start 09/28/16 at 21:00 Clopidogrel Bisulfate (plaVIX) 75 mg DAILY PO Last administered on 10/08/16 10: 21; Admin Dose 75 MG; Start 09/29/16 at 09:00 Furosemide (Lasix) 40 mg DAILY PO Last administered on 10/08/16 10:18; Admin Dose 40 MG; Start 09/29/16 at 09:00 Tiotropium [place] (Spiriva) 1 inh DAILY INH ; Start 09/28/16 at 16:00; Status Future Hold Hydralazine HCl (Apresoline) 10 mg Q6H PRN IV ELEVATED BLOOD PRESSURE Last administered on 10/03/16 18:26; Admin Dose 10 MG; Start 09/28/16 at 16:00 Mupirocin (Bactroban) 1 applic BID TOP Last administered on 10/08/16 20:16; Admin Dose 1 APPLIC; Start 09/30/16 at 09:00 Insulin Glargine (Lantus) 9 unit HS SC Last administered on 10/08/16 20:13; Admin Dose 9 UNIT; Start 10/04/16 at 21:00 Diagnostic Test (Pha) (Accucheck) 1 ea 02 XX ; Start 10/05/16 at 02:00 Miscellaneous Information 1 ea NOTE XX ; Start 10/04/16 at 09:00 Glucose (Glutose) 15 gm Q15M PRN PO DECREASED GLUCOSE; Start 10/04/16 at 09:00 Glucose (Glutose) 22.5 gm Q15M PRN PO DECREASED GLUCOSE; Start 10/04/16 at 09: 00 Dextrose (D50w Syringe) 25 ml Q15M PRN IV DECREASED GLUCOSE; Start 10/04/16 at 09:00 Dextrose (D50w Syringe) 50 ml Q15M PRN IV DECREASED GLUCOSE; Start 10/04/16 at 09:00 Glucagon (Glucagen) 1 mg Q15M PRN IM DECREASED GLUCOSE; Start 10/04/16 at 09:00 Glucose (Glutose) 15 gm Q15M PRN BUCCAL DECREASED GLUCOSE; Start 10/04/16 at 09 :00 Lisinopril (Zestril) 10 mg DAILY PO Last administered on 10/08/16 10:21; Admin Dose 10 MG; Start 10/06/16 at 09:00 Metoprolol Tartrate (Lopressor) 5 mg Q4 PRN IV HR>110 Hold SBP<100; Start 10/05 at 19:30 Metoprolol Succinate (Toprol Xl) 75 mg HS PO Last administered on 10/08/16 20: 10; Admin Dose 75 MG; Start 10/08/16 at 21:00 Metoprolol Succinate (Toprol Xl) 75 mg DAILY PO ; Start 10/09/16 at 09:00 Amiodarone HCl (Cordarone) 200 mg BID GTB Last administered on 2/2/17at 20:10; Admin Dose 200 MG; Start 10/08/16 at 21:00 Prednisone (Prednisone) 20 mg DAILY NGT ; Start 10/09/16 at 09:00 ROSE PÉREZ Oct 09, 2016 09:25
[2016-10-09] MEDS: CLOPIDOGREL 75 MG TAB PO SCH (10:39)
[2016-10-09] MEDS: AMIODARONE 200 MG TAB GTB SCH (10:39)
[2016-10-09] MEDS: predniSONE 20 MG TAB NGT SCH (10:39)
[2016-10-09] MEDS: ASPIRIN 81 MG TAB PO SCH (10:40)
[2016-10-09] MEDS: METOPROLOL (XL) 25 MG TAB PO SCH ×2 (10:40→20:45)
[2016-10-09] MEDS: FAMOTIDINE 20 MG TAB PO SCH ×2 (10:41→20:44)
[2016-10-09] MEDS: LISINOPRIL 5 MG TAB PO SCH (10:41)
[2016-10-09] MEDS: FUROSEMIDE 40 MG TAB PO SCH (10:41)
[2016-10-09] MEDS: ENOXAPARIN 40 MG/0.4 ML SYG SC SCH (10:50)
--- NOTE | 2016-10-09 12:26 | CONS ---
Date/Time of Note Date/Time of Note DATE: 10/09/16 TIME: 12:23 Assessment/Plan Assessment/Plan Chief Complaint/Hosp Course IMPRESSION: 1. Atrial fibrillation with rapid ventricular response.-improved HR and now in SR 2. Congestive heart failure, systolic, acute on chronic. 3. History of cardiomyopathy with decreased left ventricular ejection fraction 20% to 25% per chart biopsy. 4. Shortness of breath. 5. Status post hypercapnic respiratory failure, status post extubation. 6. Chronic obstructive pulmonary disease. 7. Hypertension. 8. Dyslipidemia. 9. History of automatic implantable cardioverter-defibrillator with possible discharge.-s/p interrogation with ICD shock for uncontrolled rapid AF. Per patient possible ICD discharge overnight? 10. Pneumonia. 11.Positive troponin-minimal with no sig uptrend Recc -Tele -serial ecg's -Continue asa/plavix -Continue BB/digoxin -Continue ACEI -Continue statin -Continue amiodarone in attempt to return patient to SR -Also will add low dose CCB in attempt to improve HR control Problems: Consultation Date/Type/Reason Admit Date/Time Sep 28, 2016 at 14:41 Initial Consult Date 09/28/16 Type of Consultation: Cardiology Reason for Consultation AFL Referring Provider: BAKARI MEZA MD Exam/Review of Systems Vital Signs Vitals Vital Signs Date Time Temp Pulse Resp B/P Pulse Ox O2 Delivery O2 Flow Rate FiO2 10/09/16 08:01 88 16 95 Nasal Cannula 3.0 10/09/16 07:45 97.5 137/92 Intake and Output 10/08/16 10/08/16 10/09/16 15:00 23:00 07:00 Intake Total 960 ml 800 ml Output Total 600 ml 650 ml Balance 360 ml 150 ml Exam Review of Systems: CONSTITUTIONAL: No fevers, chills. PULMONARY: No sob CARDIOVASCULAR: No chest pain/palpitations GASTROINTESTINAL: No nausea/vomiting. GENITOURINARY: No hematuria/dysuria. MUSCULOSKELETAL: No myagias/arthalgias. PSYCHIATRIC: The patient denies depression. NEUROLOGIC: No weakness Constitutional: alert, oriented Psych: no complaints ENMT: mucosa pink and moist Neck: jvd (9 cm water), supple Respiratory: diminished breath sounds (at bases/B) Cardiovascular: regular rate and rhythm Gastrointestinal: non-tender, soft Musculoskeletal: muscle tone (normal) Extremities: edema (none) Neurological: other (No focal deficits) Results Result Diagram: 10/07/16 0550 10/07/16 0550 Results 24 hrs Laboratory Tests Test 10/08/16 12:36 10/08/16 17:37 10/08/16 19:58 10/09/16 07:40 Bedside Glucose 211 134 261 H 110 Medications Medications Current Medications IV Flush (NS 10 ml) 10 ml PRN PRN IV IV PROTOCOL; Start 09/28/16 at 14:00 Ondansetron HCl (Zofran Inj) 4 mg Q6H PRN IV NAUSEA AND/OR VOMITING; Start at 15:00 Nitroglycerin (Nitroglycerin (Sl Tab) 0.4 Mg) 1 tab Q5M PRN SL CHEST PAIN; Start 09/28/16 at 15:00 Acetaminophen (Tylenol Liquid) 650 mg Q6H PRN PO PAIN LEVEL 1-3 OR FEVER; Start 09/28/16 at 15:00 Acetaminophen (Tylenol Tab) 650 mg Q6H PRN PO PAIN LEVEL 1-3 OR FEVER; Start at 15:00 Morphine Sulfate (morphine) 2 mg Q4H PRN IV PAIN LEVEL 7-10 Last administered on 09/29/16 02:30; Admin Dose 2 MG; Start 09/28/16 at 15:00 Lorazepam (Ativan) 1 mg Q2H PRN IV ANXIETY; Start 09/28/16 at 15:00 Docusate Sodium (Colace) 100 mg Q12H PRN PO CONSTIPATION; Start 09/28/16 at 15: 00 Famotidine (Pepcid) 20 mg Q12 PO Last administered on 10/09/16 10:41; Admin Dose 20 MG; Start 09/28/16 at 21:00 Enoxaparin Sodium (Lovenox) 40 mg DAILY SC Last administered on 10/09/16 10:50 ; Admin Dose 40 MG; Start 09/29/16 at 09:00 Aspirin (Aspirin) 81 mg DAILY PO Last administered on 10/09/16 10:40; Admin Dose 81 MG; Start 09/29/16 at 09:00 Atorvastatin Calcium (Lipitor) 10 mg QHS PO Last administered on 10/08/16 20:10 ; Admin Dose 10 MG; Start 09/28/16 at 21:00 Clopidogrel Bisulfate (plaVIX) 75 mg DAILY PO Last administered on 10/09/16 10: 39; Admin Dose 75 MG; Start 09/29/16 at 09:00 Furosemide (Lasix) 40 mg DAILY PO Last administered on 10/09/16 10:41; Admin Dose 40 MG; Start 09/29/16 at 09:00 Tiotropium [place] (Spiriva) 1 inh DAILY INH ; Start 09/28/16 at 16:00; Status Future Hold Hydralazine HCl (Apresoline) 10 mg Q6H PRN IV ELEVATED BLOOD PRESSURE Last administered on 10/03/16 18:26; Admin Dose 10 MG; Start 09/28/16 at 16:00 Mupirocin (Bactroban) 1 applic BID TOP Last administered on 10/09/16 09:00; Admin Dose 1 APPLIC; Start 09/30/16 at 09:00 Insulin Glargine (Lantus) 9 unit HS SC Last administered on 10/08/16 20:13; Admin Dose 9 UNIT; Start 10/04/16 at 21:00 Diagnostic Test (Pha) (Accucheck) 1 ea 02 XX ; Start 10/05/16 at 02:00 Miscellaneous Information 1 ea NOTE XX ; Start 10/04/16 at 09:00 Glucose (Glutose) 15 gm Q15M PRN PO DECREASED GLUCOSE; Start 10/04/16 at 09:00 Glucose (Glutose) 22.5 gm Q15M PRN PO DECREASED GLUCOSE; Start 10/04/16 at 09: 00 Dextrose (D50w Syringe) 25 ml Q15M PRN IV DECREASED GLUCOSE; Start 10/04/16 at 09:00 Dextrose (D50w Syringe) 50 ml Q15M PRN IV DECREASED GLUCOSE; Start 10/04/16 at 09:00 Glucagon (Glucagen) 1 mg Q15M PRN IM DECREASED GLUCOSE; Start 10/04/16 at 09:00 Glucose (Glutose) 15 gm Q15M PRN BUCCAL DECREASED GLUCOSE; Start 10/04/16 at 09 :00 Lisinopril (Zestril) 10 mg DAILY PO Last administered on 10/09/16 10:41; Admin Dose 10 MG; Start 10/06/16 at 09:00 Metoprolol Tartrate (Lopressor) 5 mg Q4 PRN IV HR>110 Hold SBP<100; Start 10/05 at 19:30 Metoprolol Succinate (Toprol Xl) 75 mg HS PO Last administered on 10/08/16 20: 10; Admin Dose 75 MG; Start 10/08/16 at 21:00 Metoprolol Succinate (Toprol Xl) 75 mg DAILY PO Last administered on 10/09/16 10:40; Admin Dose 75 MG; Start 10/09/16 at 09:00 Amiodarone HCl (Cordarone) 200 mg BID GTB Last administered on 10/09/16 10:39; Admin Dose 200 MG; Start 10/08/16 at 21:00 Prednisone (Prednisone) 20 mg DAILY NGT Last administered on 10/09/16 10:39; Admin Dose 20 MG; Start 10/09/16 at 09:00 СВЕТЛАНА PADRON Oct 09, 2016 12:26
[2016-10-09] MEDS: DILTIAZEM (CD) 180 MG CAP PO SCH (13:36)
--- NOTE | 2016-10-09 14:14 | PN ---
Date/Time of Note Date/Time of Note DATE: 10/09/16 TIME: 14:10 Assessment/Plan VTE Prophylaxis VTE Prophylaxis Intervention: LMWH Lines/Catheters IV [facility]from [facility] [place] [facility] Urinary Cath still in place: No Assessment/Plan Chief Complaint/Hosp Course This is a 66-year-old gentleman who is known to our service from prior hospitalization with a past medical history of ischemic cardiomyopathy, ejection fraction 25%, coronary artery disease, hypertension, dyslipidemia, COPD , CHF who resides at care home [facility], sick sinus syndrome, status post pacemaker placement, ischemic cardiomyopathy, atrial fibrillation who was found to have increased shortness of breath at [facility] and was transferred to [facility] Emergency Room via EMS, where he was found to have oxygen saturation of 69% in room air. His ABG showed pH of 7.269, pCO2 94.4, pCO2 57.5, bicarbonate 42.3, oxygen saturation 85.1%. He was placed on BiPAP, which he was not able to tolerate and continued to become more hypoxic. Therefore, he was intubated in the course of the emergency room. Pulmonology was consulted. The patient was also treated with Solu-Medrol, cefepime, breathing treatment, and at this time he has been placed on propofol secondary to intubation. Patient was treated with antibiotics, nebulizer and steroid for pneumonia and COPD exacerbation, symptoms improved. He got extubated. Respiratory culture positive for ESBL E. Coli, and Lauren albicans, that he is on invanz and diflucan. Patient is clinically stable. No more antibiotics is needed per ID. Patient had atrial fibrillation with RVR. Toprol XL was increased to 50 mg daily. He is with sinus rhythm now. He had CAD, troponin was slightly increased to 0.167. It is considered tachycardia related. He had ICD shock like feeling that resolved after ICD was adjusted. Problems: Assessment/Plan 1. facility acquired pneumonia, with ESBL E. Coli, and Lauren albicans, improved 2. COPD exacerbation, stable, neb, decrease steroid 3. Atrial fibrillation with RVR, sinus now, follow up with cardiology 4. Mildly elevated troponin, likely tachycardia related, follow up with cardiology 5. Congestive heart failure, systolic, chronic, stable 6. Ischemic cardiomyopathy 7. CAD 8. s/p ICD, stable 9. Essential hypertension, stable 10. Dyslipidemia. Continue statin. 11. Social desposition 12. DVT prophylaxis: lovenox Subjective 24 Hr Interval Summary Free Text/Dictation no event Exam/Review of Systems Vital Signs Vitals Vital Signs Date Time Temp Pulse Resp B/P Pulse Ox O2 Delivery O2 Flow Rate FiO2 10/09/16 12:56 88 10/09/16 12:36 98.0 18 123/77 98 10/09/16 08:01 Nasal Cannula 3.0 Intake and Output 10/08/16 10/08/16 10/09/16 15:00 23:00 07:00 Intake Total 960 ml 800 ml Output Total 600 ml 650 ml Balance 360 ml 150 ml Exam Constitutional: alert, oriented, well developed Psych: nl mood/affect, no complaints Head: atraumatic, normocephalic Eyes: EOMI, nl conjunctiva, nl lids ENMT: nl external ears & nose, nl lips & teeth, nl nasal mucosa & septum Neck: non-tender, supple Respiratory: clear to auscultation Cardiovascular: nl pulses, regular rate and rhythm, No S3, No S4, No bruits, No diastolic murmur, No edema, No gallop, No irregular rhythm, No jugular venous distention (JVD), No murmurs/extra sounds, No rub, No systolic murmur Gastrointestinal: nl liver, spleen, non-tender, soft, No ascites, No bowel sounds, No distended, No firm, No hepatomegaly, No mass , No rebound or guarding, No splenomegaly, No surgical scars, No tender Musculoskeletal: nl extremities to inspection Neurological: BINDING CUTTER II-XII intact, nl mental status, nl speech, nl strength Results Result Diagram: 10/07/16 0550 10/07/16 0550 Results 24 hrs Laboratory Tests Test 10/08/16 17:37 10/08/16 19:58 10/09/16 07:40 10/09/16 13:02 Bedside Glucose 134 261 H 110 110 Medications Medications Current Medications IV Flush (NS 10 ml) 10 ml PRN PRN IV IV PROTOCOL; Start 09/28/16 at 14:00 Ondansetron HCl (Zofran Inj) 4 mg Q6H PRN IV NAUSEA AND/OR VOMITING; Start at 15:00 Nitroglycerin (Nitroglycerin (Sl Tab) 0.4 Mg) 1 tab Q5M PRN SL CHEST PAIN; Start 09/28/16 at 15:00 Acetaminophen (Tylenol Liquid) 650 mg Q6H PRN PO PAIN LEVEL 1-3 OR FEVER; Start 09/28/16 at 15:00 Acetaminophen (Tylenol Tab) 650 mg Q6H PRN PO PAIN LEVEL 1-3 OR FEVER; Start at 15:00 Morphine Sulfate (morphine) 2 mg Q4H PRN IV PAIN LEVEL 7-10 Last administered on 09/29/16 02:30; Admin Dose 2 MG; Start 09/28/16 at 15:00 Lorazepam (Ativan) 1 mg Q2H PRN IV ANXIETY; Start 09/28/16 at 15:00 Docusate Sodium (Colace) 100 mg Q12H PRN PO CONSTIPATION; Start 09/28/16 at 15: 00 Famotidine (Pepcid) 20 mg Q12 PO Last administered on 10/09/16 10:41; Admin Dose 20 MG; Start 09/28/16 at 21:00 Enoxaparin Sodium (Lovenox) 40 mg DAILY SC Last administered on 10/09/16 10:50 ; Admin Dose 40 MG; Start 09/29/16 at 09:00 Aspirin (Aspirin) 81 mg DAILY PO Last administered on 10/09/16 10:40; Admin Dose 81 MG; Start 09/29/16 at 09:00 Atorvastatin Calcium (Lipitor) 10 mg QHS PO Last administered on 10/08/16 20:10 ; Admin Dose 10 MG; Start 09/28/16 at 21:00 Clopidogrel Bisulfate (plaVIX) 75 mg DAILY PO Last administered on 10/09/16 10: 39; Admin Dose 75 MG; Start 09/29/16 at 09:00 Furosemide (Lasix) 40 mg DAILY PO Last administered on 10/09/16 10:41; Admin Dose 40 MG; Start 09/29/16 at 09:00 Tiotropium [place] (Spiriva) 1 inh DAILY INH ; Start 09/28/16 at 16:00; Status Future Hold Hydralazine HCl (Apresoline) 10 mg Q6H PRN IV ELEVATED BLOOD PRESSURE Last administered on 10/03/16 18:26; Admin Dose 10 MG; Start 09/28/16 at 16:00 Mupirocin (Bactroban) 1 applic BID TOP Last administered on 10/09/16 09:00; Admin Dose 1 APPLIC; Start 09/30/16 at 09:00 Insulin Glargine (Lantus) 9 unit HS SC Last administered on 10/08/16 20:13; Admin Dose 9 UNIT; Start 10/04/16 at 21:00 Diagnostic Test (Pha) (Accucheck) 1 ea 02 XX ; Start 10/05/16 at 02:00 Miscellaneous Information 1 ea NOTE XX ; Start 10/04/16 at 09:00 Glucose (Glutose) 15 gm Q15M PRN PO DECREASED GLUCOSE; Start 10/04/16 at 09:00 Glucose (Glutose) 22.5 gm Q15M PRN PO DECREASED GLUCOSE; Start 10/04/16 at 09: 00 Dextrose (D50w Syringe) 25 ml Q15M PRN IV DECREASED GLUCOSE; Start 10/04/16 at 09:00 Dextrose (D50w Syringe) 50 ml Q15M PRN IV DECREASED GLUCOSE; Start 10/04/16 at 09:00 Glucagon (Glucagen) 1 mg Q15M PRN IM DECREASED GLUCOSE; Start 10/04/16 at 09:00 Glucose (Glutose) 15 gm Q15M PRN BUCCAL DECREASED GLUCOSE; Start 10/04/16 at 09 :00 Lisinopril (Zestril) 10 mg DAILY PO Last administered on 10/09/16 10:41; Admin Dose 10 MG; Start 10/06/16 at 09:00 Metoprolol Tartrate (Lopressor) 5 mg Q4 PRN IV HR>110 Hold SBP<100; Start 10/05 at 19:30 Metoprolol Succinate (Toprol Xl) 75 mg HS PO Last administered on 10/08/16 20: 10; Admin Dose 75 MG; Start 10/08/16 at 21:00 Metoprolol Succinate (Toprol Xl) 75 mg DAILY PO Last administered on 10/09/16 10:40; Admin Dose 75 MG; Start 10/09/16 at 09:00 Amiodarone HCl (Cordarone) 200 mg BID GTB Last administered on 10/09/16 10:39; Admin Dose 200 MG; Start 10/08/16 at 21:00 Prednisone (Prednisone) 20 mg DAILY NGT Last administered on 10/09/16 10:39; Admin Dose 20 MG; Start 10/09/16 at 09:00 Diltiazem HCl (Cardizem Cd) 180 mg DAILY PO Last administered on 10/09/16t 13:36 ; Admin Dose 180 MG; Start 10/09/16 at 12:45 FUNMI MEZA MD Oct 09, 2016 14:14
--- NOTE | 2016-10-09 15:16 | CONS ---
Date/Time of Note Date/Time of Note DATE: 10/09/16 TIME: 15:14 Assessment/Plan Assessment/Plan Chief Complaint/Hosp Course SUBJECTIVE: No acute changes. The patient is alert, looks comfortable, no fevers. PHYSICAL EXAMINATION: GENERAL: Well-developed, ill-appearing, elderly man who is alert, in no distress. HEENT: Head atraumatic, normocephalic. Sclerae anicteric. Buccal mucosa dry. NECK: Supple, trachea midline. CHEST: Rise symmetrical. Breath sounds with bilateral scattered rhonchi. HEART: S1, S2. ABDOMEN: Soft. Bowel tones present. EXTREMITIES: No cyanosis. ASSESSMENT: 1. Acute on chronic hypoxemic respiratory failure secondary to chronic obstructive pulmonary disease exacerbation and questionable healthcare- associated pneumonia. 2. S/p Urinary tract infection. 3. Congestive heart failure. 4. Ischemic cardiomyopathy with a history of automatic implantable cardioverter defibrillator. 5. History of coronary artery stenting. 6. Methicillin-resistant Staphylococcus aureus nares colonization. 7. A fib PLAN: Off abx, no fevers, will queen cx prn, card rec-s noted DW pt Problems: Consultation Date/Type/Reason Admit Date/Time Sep 28, 2016 at 14:41 Initial Consult Date 09/28/16 Type of Consultation: id Referring Provider: BAKARI MEZA MD 24 HR Interval Summary Constitutional: no complaints Exam/Review of Systems Vital Signs Vitals Vital Signs Date Time Temp Pulse Resp B/P Pulse Ox O2 Delivery O2 Flow Rate FiO2 10/09/16 14:31 92 18 96 Nasal Cannula 3.0 10/09/16 12:36 98.0 123/77 Intake and Output 10/08/16 10/08/16 10/09/16 15:00 23:00 07:00 Intake Total 960 ml 800 ml Output Total 600 ml 650 ml Balance 360 ml 150 ml Results Result Diagram: 10/07/16 0550 10/07/16 0550 Results 24 hrs Laboratory Tests Test 10/08/16 17:37 10/08/16 19:58 10/09/16 07:40 10/09/16 13:02 Bedside Glucose 134 261 H 110 110 Medications Medications Current Medications IV Flush (NS 10 ml) 10 ml PRN PRN IV IV PROTOCOL; Start 09/28/16 at 14:00 Ondansetron HCl (Zofran Inj) 4 mg Q6H PRN IV NAUSEA AND/OR VOMITING; Start at 15:00 Nitroglycerin (Nitroglycerin (Sl Tab) 0.4 Mg) 1 tab Q5M PRN SL CHEST PAIN; Start 09/28/16 at 15:00 Acetaminophen (Tylenol Liquid) 650 mg Q6H PRN PO PAIN LEVEL 1-3 OR FEVER; Start 09/28/16 at 15:00 Acetaminophen (Tylenol Tab) 650 mg Q6H PRN PO PAIN LEVEL 1-3 OR FEVER; Start at 15:00 Morphine Sulfate (morphine) 2 mg Q4H PRN IV PAIN LEVEL 7-10 Last administered on 09/29/16 02:30; Admin Dose 2 MG; Start 09/28/16 at 15:00 Lorazepam (Ativan) 1 mg Q2H PRN IV ANXIETY; Start 09/28/16 at 15:00 Docusate Sodium (Colace) 100 mg Q12H PRN PO CONSTIPATION; Start 09/28/16 at 15: 00 Famotidine (Pepcid) 20 mg Q12 PO Last administered on 10/09/16 10:41; Admin Dose 20 MG; Start 09/28/16 at 21:00 Enoxaparin Sodium (Lovenox) 40 mg DAILY SC Last administered on 10/09/16 10:50 ; Admin Dose 40 MG; Start 09/29/16 at 09:00 Aspirin (Aspirin) 81 mg DAILY PO Last administered on 10/09/16 10:40; Admin Dose 81 MG; Start 09/29/16 at 09:00 Atorvastatin Calcium (Lipitor) 10 mg QHS PO Last administered on 10/08/16 20:10 ; Admin Dose 10 MG; Start 09/28/16 at 21:00 Clopidogrel Bisulfate (plaVIX) 75 mg DAILY PO Last administered on 10/09/16 10: 39; Admin Dose 75 MG; Start 09/29/16 at 09:00 Furosemide (Lasix) 40 mg DAILY PO Last administered on 10/09/16 10:41; Admin Dose 40 MG; Start 09/29/16 at 09:00 Tiotropium [place] (Spiriva) 1 inh DAILY INH ; Start 09/28/16 at 16:00; Status Future Hold Hydralazine HCl (Apresoline) 10 mg Q6H PRN IV ELEVATED BLOOD PRESSURE Last administered on 10/03/16 18:26; Admin Dose 10 MG; Start 09/28/16 at 16:00 Mupirocin (Bactroban) 1 applic BID TOP Last administered on 10/09/16 09:00; Admin Dose 1 APPLIC; Start 09/30/16 at 09:00 Insulin Glargine (Lantus) 9 unit HS SC Last administered on 10/08/16 20:13; Admin Dose 9 UNIT; Start 10/04/16 at 21:00 Diagnostic Test (Pha) (Accucheck) 1 ea 02 XX ; Start 10/05/16 at 02:00 Miscellaneous Information 1 ea NOTE XX ; Start 10/04/16 at 09:00 Glucose (Glutose) 15 gm Q15M PRN PO DECREASED GLUCOSE; Start 10/04/16 at 09:00 Glucose (Glutose) 22.5 gm Q15M PRN PO DECREASED GLUCOSE; Start 10/04/16 at 09: 00 Dextrose (D50w Syringe) 25 ml Q15M PRN IV DECREASED GLUCOSE; Start 10/04/16 at 09:00 Dextrose (D50w Syringe) 50 ml Q15M PRN IV DECREASED GLUCOSE; Start 10/04/16 at 09:00 Glucagon (Glucagen) 1 mg Q15M PRN IM DECREASED GLUCOSE; Start 10/04/16 at 09:00 Glucose (Glutose) 15 gm Q15M PRN BUCCAL DECREASED GLUCOSE; Start 10/04/16 at 09 :00 Lisinopril (Zestril) 10 mg DAILY PO Last administered on 10/09/16 10:41; Admin Dose 10 MG; Start 10/06/16 at 09:00 Metoprolol Tartrate (Lopressor) 5 mg Q4 PRN IV HR>110 Hold SBP<100; Start 10/05 at 19:30 Metoprolol Succinate (Toprol Xl) 75 mg HS PO Last administered on 10/08/16 20: 10; Admin Dose 75 MG; Start 10/08/16 at 21:00 Metoprolol Succinate (Toprol Xl) 75 mg DAILY PO Last administered on 10/09/16 10:40; Admin Dose 75 MG; Start 10/09/16 at 09:00 Amiodarone HCl (Cordarone) 200 mg BID GTB Last administered on 10/09/16 10:39; Admin Dose 200 MG; Start 10/08/16 at 21:00 Prednisone (Prednisone) 20 mg DAILY NGT Last administered on 10/09/16 10:39; Admin Dose 20 MG; Start 10/09/16 at 09:00 Diltiazem HCl (Cardizem Cd) 180 mg DAILY PO Last administered on 10/09/16 13:36 ; Admin Dose 180 MG; Start 10/09/16 at 12:45 CODY BRANCH NP Oct 09, 2016 15:16
[2016-10-09] MEDS: INSULIN GLARGINE [LANtus] 3 ML PEN SC SCH (20:43)
[2016-10-09] MEDS: ATORVASTATIN 10 MG TAB PO SCH (20:44)
[2016-10-09] MEDS: AMIODARONE 200 MG TAB PO SCH (20:45)
[2016-10-10] VITALS (11 sets, daily range): BP systolic 108–136; BP diastolic 57–91; PULSE 60–81; RESP 17–21
[2016-10-10] MEDS ORDERED: INSULIN ASPART [NOVOLOG] 3 ML PEN SC ONE (01:30)
[2016-10-10] MEDS: ACCU-CHEK XX SCH (01:54)
[2016-10-10] MEDS: ALBUTEROL/IPRATROPIUM (NEB) 3 ML AMP HHN SCH ×4 (02:08→19:44)
[2016-10-10] MEDS: INSULIN ASPART [NOVOLOG] 3 ML PEN SC SCH ×7 (07:55→21:31)
[2016-10-10] MEDS: AMIODARONE 200 MG TAB PO SCH ×2 (08:55→21:00)
[2016-10-10] MEDS: DILTIAZEM (CD) 180 MG CAP PO SCH (08:55)
[2016-10-10] MEDS: CLOPIDOGREL 75 MG TAB PO SCH (08:55)
[2016-10-10] MEDS: FAMOTIDINE 20 MG TAB PO SCH ×2 (08:56→21:17)
[2016-10-10] MEDS: predniSONE 20 MG TAB NGT SCH (08:56)
[2016-10-10] MEDS: FUROSEMIDE 40 MG TAB PO SCH (08:56)
[2016-10-10] MEDS: ASPIRIN 81 MG TAB PO SCH (08:56)
[2016-10-10] MEDS: METOPROLOL (XL) 25 MG TAB PO SCH ×2 (08:57→21:00)
[2016-10-10] MEDS: LISINOPRIL 5 MG TAB PO SCH (08:58)
[2016-10-10] MEDS: MUPIROCIN 2% 22 GM OINT TOP SCH ×2 (08:58→21:28)
[2016-10-10] MEDS: ENOXAPARIN 40 MG/0.4 ML SYG SC SCH (09:11)
[2016-10-10] MEDS ORDERED: MONTELUKAST 10 MG TAB PO ONE (10:00)
--- NOTE | 2016-10-10 10:07 | PN ---
Date/Time of Note Date/Time of Note DATE: 10/10/16 TIME: 10:01 Assessment/Plan VTE Prophylaxis VTE Prophylaxis Intervention: LMWH Lines/Catheters IV Catheter Type (from [place]): Saline Lock Urinary Cath still in place: No Assessment/Plan Problems: (1) Right foot injury Status: Acute Comment: I called the patient's family to get details on this. They report that they have no information he was treated at the emergency room at [place]. Her plain x-rays here do not show anything. He was seen by our podiatry colleagues Dr. Swan. This would be with an eye toward removing the splint so that we can get him up and moving around. Qualifiers: Encounter type: initial encounter Qualified Code: S99.921A - Right foot injury, initial encounter (2) COPD with acute exacerbation Status: Acute Comment: His lung disease has improved with treatment. I did bring up his dosing on medications to get him as close to optimal as possible. Our major issue here is that once he leaves is extremely likely that he will be noncooperative with maintaining his treatment. (3) Diabetes mellitus type 2 in nonobese Status: Chronic Comment: At this time his diabetes is adequately controlled although will need to simplify this regimen. (4) Klebsiella cystitis Status: Acute Comment: He is on appropriate treatment for this (5) Hypertension Status: Chronic Comment: He is on treatment for this. Please note this allows us to treat his heart failure. One significant issue however is that trying to push the beta blockade for the heart failure may exacerbate his COPD. However the worst issues will be revolving around his noncooperation which is a chronic problem Qualifiers: Hypertension type: essential hypertension Qualified Code: I10 - Essential hypertension (6) Hyperlipidemia associated with type 2 diabetes mellitus Status: Chronic Comment: He is on treatment (7) Systolic CHF with reduced left ventricular function, NYHA class 3 Status: Chronic Comment: Cardiology is seeing him. I am curious about whether or not we might want to not use some much of the calcium channel liliana with this diagnosis on board and use bit more of digoxin with the amiodarone to control the atrial fibrillation rate (8) Atrial fibrillation Status: Chronic Comment: Noted please see cardiology recommendations but as above again I have questions about the use of the calcium channel liliana with a severely decreased 3 decompressed ejection fraction. Perhaps using digoxin as an AV vee blocking agent with the beta-liliana might offer us an alternative Qualifiers: Atrial fibrillation type: chronic Qualified Code: I48.2 - Chronic atrial fibrillation (9) Status post implantation of automatic cardioverter/defibrillator (AICD) Status: Chronic Comment: Noted and stable (10) Status post angioplasty with stent Status: Chronic Comment: Stable Assessment/Plan Please see Dr. Haider's note. I also have significant reservations about this gentleman is competent to manage his own affairs. Subjective 24 Hr Interval Summary Free Text/Dictation Patient lying in bed. Answers questions with some difficulty. Constitutional: no complaints (Denies fever chills or sweats) Respiratory: no complaints (Denies any shortness of breath or wheezing) Cardiovascular: no complaints (Denies chest pain palpitation) Gastrointestinal: no complaints (Denies nausea vomiting abdominal pain) Musculoskeletal: other (Patient has his right foot in a posterior splint. He reports he has no idea what happened.) Exam/Review of Systems Vital Signs Vitals Vital Signs Date Time Temp Pulse Resp B/P Pulse Ox O2 Delivery O2 Flow Rate FiO2 10/10/16 08:05 60 10/10/16 07:34 99.1 17 136/89 94 10/10/16 02:08 3.0 10/10/16 02:08 Nasal Cannula Intake and Output 10/09/16 10/09/16 10/10/16 15:00 23:00 07:00 Intake Total 800 ml Balance 800 ml Exam Constitutional: alert (Oriented toward person and place Mini-Mental status exam 20 out of 30) Psych: no complaints Neck: non-tender, supple Respiratory: clear to auscultation, diminished breath sounds, wheezing Cardiovascular: irregular rhythm (PMI is diffuse and laterally displaced) Gastrointestinal: nl liver, spleen, non-tender, soft Extremities: other (Right leg is in a posterior splint. There is bruising at the great toe. There is already x-rays present.) Results Result Diagram: 10/07/16 0550 10/07/16 0550 Results 24 hrs Laboratory Tests Test 10/09/16 13:02 10/09/16 17:53 10/09/16 20:27 10/10/16 01:41 Bedside Glucose 110 154 333 H 114 Test 10/10/16 07:58 Bedside Glucose 93 Medications Medications Current Medications IV Flush (NS 10 ml) 10 ml PRN PRN IV IV PROTOCOL; Start 09/28/16 at 14:00 Ondansetron HCl (Zofran Inj) 4 mg Q6H PRN IV NAUSEA AND/OR VOMITING; Start at 15:00 Nitroglycerin (Nitroglycerin (Sl Tab) 0.4 Mg) 1 tab Q5M PRN SL CHEST PAIN; Start 09/28/16 at 15:00 Acetaminophen (Tylenol Liquid) 650 mg Q6H PRN PO PAIN LEVEL 1-3 OR FEVER; Start 09/28/16 at 15:00 Acetaminophen (Tylenol Tab) 650 mg Q6H PRN PO PAIN LEVEL 1-3 OR FEVER; Start at 15:00 Morphine Sulfate (morphine) 2 mg Q4H PRN IV PAIN LEVEL 7-10 Last administered on 09/29/16 02:30; Admin Dose 2 MG; Start 09/28/16 at 15:00 Lorazepam (Ativan) 1 mg Q2H PRN IV ANXIETY; Start 09/28/16 at 15:00 Docusate Sodium (Colace) 100 mg Q12H PRN PO CONSTIPATION; Start 09/28/16 at 15: 00 Famotidine (Pepcid) 20 mg Q12 PO Last administered on 10/10/16 08:56; Admin Dose 20 MG; Start 09/28/16 at 21:00 Enoxaparin Sodium (Lovenox) 40 mg DAILY SC Last administered on 10/10/16 09:11 ; Admin Dose 40 MG; Start 09/29/16 at 09:00 Aspirin (Aspirin) 81 mg DAILY PO Last administered on 10/10/16 08:56; Admin Dose 81 MG; Start 09/29/16 at 09:00 Atorvastatin Calcium (Lipitor) 10 mg QHS PO Last administered on 10/09/16 20:44 ; Admin Dose 10 MG; Start 09/28/16 at 21:00 Clopidogrel Bisulfate (plaVIX) 75 mg DAILY PO Last administered on 10/10/16 08: 55; Admin Dose 75 MG; Start 09/29/16 at 09:00 Furosemide (Lasix) 40 mg DAILY PO Last administered on 10/10/16 08:56; Admin Dose 40 MG; Start 09/29/16 at 09:00 Tiotropium [place] (Spiriva) 1 inh DAILY INH ; Start 09/28/16 at 16:00; Status Future Hold Mupirocin (Bactroban) 1 applic BID TOP Last administered on 10/10/16 08:58; Admin Dose 1 APPLIC; Start 09/30/16 at 09:00 Diagnostic Test (Pha) (Accucheck) 1 ea 02 XX ; Start 10/05/16 at 02:00 Miscellaneous Information 1 ea NOTE XX ; Start 10/04/16 at 09:00 Glucose (Glutose) 15 gm Q15M PRN PO DECREASED GLUCOSE; Start 10/04/16 at 09:00 Glucose (Glutose) 22.5 gm Q15M PRN PO DECREASED GLUCOSE; Start 10/04/16 at 09: 00 Dextrose (D50w Syringe) 25 ml Q15M PRN IV DECREASED GLUCOSE; Start 10/04/16 at 09:00 Dextrose (D50w Syringe) 50 ml Q15M PRN IV DECREASED GLUCOSE; Start 10/04/16 at 09:00 Glucagon (Glucagen) 1 mg Q15M PRN IM DECREASED GLUCOSE; Start 10/04/16 at 09:00 Glucose (Glutose) 15 gm Q15M PRN BUCCAL DECREASED GLUCOSE; Start 10/04/16 at 09 :00 Lisinopril (Zestril) 10 mg DAILY PO Last administered on 10/10/16 08:58; Admin Dose 10 MG; Start 10/06/16 at 09:00 Metoprolol Tartrate (Lopressor) 5 mg Q4 PRN IV HR>110 Hold SBP<100; Start 10/05 at 19:30 Metoprolol Succinate (Toprol Xl) 75 mg HS PO Last administered on 10/09/16 20: 45; Admin Dose 75 MG; Start 10/08/16 at 21:00 Metoprolol Succinate (Toprol Xl) 75 mg DAILY PO Last administered on 10/10/16 08:57; Admin Dose 75 MG; Start 10/09/16 at 09:00 Prednisone (Prednisone) 20 mg DAILY NGT Last administered on 10/10/16 08:56; Admin Dose 20 MG; Start 10/09/16 at 09:00 Diltiazem HCl (Cardizem Cd) 180 mg DAILY PO Last administered on 10/10/16 08:55 ; Admin Dose 180 MG; Start 10/09/16 at 12:45 Amiodarone HCl (Cordarone) 200 mg BID PO Last administered on 10/10/16t 08:55; Admin Dose 200 MG; Start 10/09/16 at 21:00 Insulin Glargine (Lantus) 15 unit HS SC ; Start 10/10/16 at 21:00 Montelukast Sodium (Singulair) 10 mg HS PO ; Start 10/10/16 at 21:00 Montelukast Sodium (Singulair) 10 mg ONCE ONCE PO ; Start 10/10/16 at 10:00; Stop 10/10/16 at 10:01 Theophylline (Benji-24) 300 mg QHS PO ; Start 10/10/16 at 21:00 DEVON MUHAMMAD MD Oct 10, 2016 10:07
--- NOTE | 2016-10-10 13:48 | CONS ---
Date/Time of Note Date/Time of Note DATE: 10/10/16 TIME: 13:46 Consult Date/Type/Reason Admit Date/Time Sep 28, 2016 at 14:41 Initial Consult Date 09/28/16 Type of Consultation: pulmonary Ordering Provider: BAKARI MEZA MD Subjective Patient remains stable no new events breathing stable Denies significant shortness of breath Objective Vital Signs Date Time Temp Pulse Resp B/P Pulse Ox O2 Delivery O2 Flow Rate FiO2 10/10/16 12:03 81 10/10/16 12:00 98.1 18 136/91 93 10/10/16 08:15 Nasal Cannula 3.0 Intake and Output 10/09/16 10/09/16 10/10/16 15:00 23:00 07:00 Intake Total 800 ml Balance 800 ml GENERAL: Elderly gentleman comfortable at rest VITAL SIGNS: per chart NECK: Supple. No JVD or lymphadenopathy. CARDIAC EXAM: S1, S2. No added sounds or murmurs. CHEST: clear bilaterally, No added sounds, rales or wheezes ABDOMEN: Soft, nontender. No guarding or rebound. EXTREMITIES: No cyanosis, clubbing or edema. NEUROLOGIC: Generalized weakness. No focal deficits. Results/Medications Result Diagram: 10/07/16 0550 10/07/16 0550 Results 24 hrs Laboratory Tests Test 10/09/16 17:53 10/09/16 20:27 10/10/16 01:41 10/10/16 07:58 Bedside Glucose 154 333 H 114 93 Test 10/10/16 11:39 Bedside Glucose 174 Medications Current Medications IV Flush (NS 10 ml) 10 ml PRN PRN IV IV PROTOCOL; Start 09/28/16 at 14:00 Ondansetron HCl (Zofran Inj) 4 mg Q6H PRN IV NAUSEA AND/OR VOMITING; Start at 15:00 Nitroglycerin (Nitroglycerin (Sl Tab) 0.4 Mg) 1 tab Q5M PRN SL CHEST PAIN; Start 09/28/16 at 15:00 Acetaminophen (Tylenol Liquid) 650 mg Q6H PRN PO PAIN LEVEL 1-3 OR FEVER; Start 09/28/16 at 15:00 Acetaminophen (Tylenol Tab) 650 mg Q6H PRN PO PAIN LEVEL 1-3 OR FEVER; Start at 15:00 Morphine Sulfate (morphine) 2 mg Q4H PRN IV PAIN LEVEL 7-10 Last administered on 09/29/16 02:30; Admin Dose 2 MG; Start 09/28/16 at 15:00 Lorazepam (Ativan) 1 mg Q2H PRN IV ANXIETY; Start 09/28/16 at 15:00 Docusate Sodium (Colace) 100 mg Q12H PRN PO CONSTIPATION; Start 09/28/16 at 15: 00 Famotidine (Pepcid) 20 mg Q12 PO Last administered on 10/10/16 08:56; Admin Dose 20 MG; Start 09/28/16 at 21:00 Enoxaparin Sodium (Lovenox) 40 mg DAILY SC Last administered on 10/10/16 09:11 ; Admin Dose 40 MG; Start 09/29/16 at 09:00 Aspirin (Aspirin) 81 mg DAILY PO Last administered on 10/10/16 08:56; Admin Dose 81 MG; Start 09/29/16 at 09:00 Atorvastatin Calcium (Lipitor) 10 mg QHS PO Last administered on 10/09/16 20:44 ; Admin Dose 10 MG; Start 09/28/16 at 21:00 Clopidogrel Bisulfate (plaVIX) 75 mg DAILY PO Last administered on 10/10/16 08: 55; Admin Dose 75 MG; Start 09/29/16 at 09:00 Furosemide (Lasix) 40 mg DAILY PO Last administered on 10/10/16 08:56; Admin Dose 40 MG; Start 09/29/16 at 09:00 Tiotropium [place] (Spiriva) 1 inh DAILY INH ; Start 09/28/16 at 16:00; Status Future Hold Mupirocin (Bactroban) 1 applic BID TOP Last administered on 10/10/16 08:58; Admin Dose 1 APPLIC; Start 09/30/16 at 09:00 Diagnostic Test (Pha) (Accucheck) 1 ea 02 XX ; Start 10/05/16 at 02:00 Miscellaneous Information 1 ea NOTE XX ; Start 10/04/16 at 09:00 Glucose (Glutose) 15 gm Q15M PRN PO DECREASED GLUCOSE; Start 10/04/16 at 09:00 Glucose (Glutose) 22.5 gm Q15M PRN PO DECREASED GLUCOSE; Start 10/04/16 at 09: 00 Dextrose (D50w Syringe) 25 ml Q15M PRN IV DECREASED GLUCOSE; Start 10/04/16 at 09:00 Dextrose (D50w Syringe) 50 ml Q15M PRN IV DECREASED GLUCOSE; Start 10/04/16 at 09:00 Glucagon (Glucagen) 1 mg Q15M PRN IM DECREASED GLUCOSE; Start 10/04/16 at 09:00 Glucose (Glutose) 15 gm Q15M PRN BUCCAL DECREASED GLUCOSE; Start 10/04/16 at 09 :00 Lisinopril (Zestril) 10 mg DAILY PO Last administered on 10/10/16 08:58; Admin Dose 10 MG; Start 10/06/16 at 09:00 Metoprolol Tartrate (Lopressor) 5 mg Q4 PRN IV HR>110 Hold SBP<100; Start 10/05 at 19:30 Metoprolol Succinate (Toprol Xl) 75 mg HS PO Last administered on 10/09/16 20: 45; Admin Dose 75 MG; Start 10/08/16 at 21:00 Metoprolol Succinate (Toprol Xl) 75 mg DAILY PO Last administered on 10/10/16 08:57; Admin Dose 75 MG; Start 10/09/16 at 09:00 Prednisone (Prednisone) 20 mg DAILY NGT Last administered on 10/10/16 08:56; Admin Dose 20 MG; Start 10/09/16 at 09:00 Amiodarone HCl (Cordarone) 200 mg BID PO Last administered on 10/10/16 08:55; Admin Dose 200 MG; Start 10/09/16 at 21:00 Insulin Glargine (Lantus) 15 unit HS SC ; Start 10/10/16 at 21:00 Montelukast Sodium (Singulair) 10 mg HS PO ; Start 10/10/16 at 21:00 Theophylline (Benji-24) 300 mg QHS PO ; Start 10/10/16 at 21:00 Diltiazem HCl (Cardizem Cd) 120 mg DAILY PO ; Start 10/11/16 at 09:00 Assessment/Plan Chief Complaint/Hosp Course Assessment 1. Acute on chronic hypoxemic and hypercapnic respiratory failure 2. Lower extremity wound 3. Long-standing history of COPD Plan 1. Continue bronchodilators 2. Physical therapy evaluation 3. Continue aspiration precautions 4. Podiatry recommendations 5. Agree with discharge planning Problems: VADGAMA,HAILE V. MD, [facility] Oct 10, 2016 13:48
--- NOTE | 2016-10-10 16:17 | CONS ---
Date/Time of Note Date/Time of Note DATE: 10/10/16 TIME: 16:17 Assessment/Plan Assessment/Plan Problems: (1) Nondisplaced fracture of fourth metatarsal bone, left foot, initial encounter for closed fracture Comment: Currently patient is in a posterior splint. I placed the patient in a [id number] compressive dressing to reduce the edema present. No surgery recommended at this time. Nonweightbearing on the right foot is recommended. Physical therapy to evaluate patient for gait training. Patient will require a walker or a wheelchair. (2) Left foot pain (3) Peripheral vascular disease Additional Assessment/Plan Patient will be followed in-house. Thank you again for involving me in the care of this patient. If you have any questions regarding this case, please feel free to contact me at pager: [phone] or reach me at mobile: [phone]. Consultation Date/Type/Reason Admit Date/Time Sep 28, 2016 at 14:41 Date of Consultation: Oct 10, 2016 Type of Consultation: Foot and ankle surgery Reason for Consultation Right lower extremity ecchymosis and possible fracture. Referring Provider: DEVON MUHAMMAD MD Hx of Present Illness Thank you very much for involving me in the care of this patient. As you very well know this is a 66-year-old male patient who apparently has been hospitalized before and has multiple medical problems including ischemic cardiomyopathy, ejection fraction 25%, coronary artery disease, hypertension, dyslipidemia, COPD, CHF who was apparently found to have increased shortness of breath at the intermediate facility and was transferred to [facility] emergency. Patient was found to have right foot injury and does not report any real information regarding how it happened. He says that he has no recollection of any trauma. He was treated for the right foot at [place] emergency room. I was consulted to evaluate the right lower extremity. As per history of present illness. Constitutional: no complaints (Denies fever chills or sweats) Respiratory: no complaints (Denies any shortness of breath or wheezing) Cardiovascular: no complaints (Denies chest pain palpitation) Gastrointestinal: no complaints (Denies nausea vomiting abdominal pain) Musculoskeletal: other (Patient has his right foot in a posterior splint. He reports he has no idea what happened.) Psychological: no complaints Past Medical History As per history of present illness. Past Surgical History As per HPI. Past Surgical Hx: no surgical history Social History As per HPI. Smoking Status: Former smoker Exam/Review of Systems Vital Signs Vitals Vital Signs Date Time Temp Pulse Resp B/P Pulse Ox O2 Delivery O2 Flow Rate FiO2 10/10/16 16:11 99.0 60 18 111/81 92 10/10/16 14:35 3.0 10/10/16 08:15 Nasal Cannula Intake and Output 10/09/16 10/09/16 10/10/16 15:00 23:00 07:00 Intake Total 800 ml Balance 800 ml Exam Patient is in no acute distress laying supine in bed. There is a posterior splint and loose Abdirashid bandages on the right lower extremity. This was removed and the right lower extremity was examined. Patient has edema of the right foot ankle and lower leg with ecchymosis throughout the foot and ankle area. There is no active open wound. There is no crepitus on palpation and range of motion of the foot joints and ankle joint. Patient has flat feet with contracted toes. Patient reports pain on palpation. Dorsalis pedis and posterior tibial pulses weak but palpable with delayed capillary filling time and normal temperature gradient. Left lower extremity exam is otherwise normal. X-rays of the right foot show no obvious fracture dislocation. Results Result Diagram: 10/07/16 0550 10/07/16 0550 Results 24 hrs Laboratory Tests Test 10/09/16 17:53 10/09/16 20:27 10/10/16 01:41 10/10/16 07:58 Bedside Glucose 154 333 H 114 93 Test 10/10/16 11:39 Bedside Glucose 174 Medications Medications Current Medications IV Flush (NS 10 ml) 10 ml PRN PRN IV IV PROTOCOL; Start 09/28/16 at 14:00 Ondansetron HCl (Zofran Inj) 4 mg Q6H PRN IV NAUSEA AND/OR VOMITING; Start at 15:00 Nitroglycerin (Nitroglycerin (Sl Tab) 0.4 Mg) 1 tab Q5M PRN SL CHEST PAIN; Start 09/28/16 at 15:00 Acetaminophen (Tylenol Liquid) 650 mg Q6H PRN PO PAIN LEVEL 1-3 OR FEVER; Start 09/28/16 at 15:00 Acetaminophen (Tylenol Tab) 650 mg Q6H PRN PO PAIN LEVEL 1-3 OR FEVER; Start at 15:00 Morphine Sulfate (morphine) 2 mg Q4H PRN IV PAIN LEVEL 7-10 Last administered on 09/29/16 02:30; Admin Dose 2 MG; Start 09/28/16 at 15:00 Lorazepam (Ativan) 1 mg Q2H PRN IV ANXIETY; Start 09/28/16 at 15:00 Docusate Sodium (Colace) 100 mg Q12H PRN PO CONSTIPATION; Start 09/28/16 at 15: 00 Famotidine (Pepcid) 20 mg Q12 PO Last administered on 10/10/16 08:56; Admin Dose 20 MG; Start 09/28/16 at 21:00 Enoxaparin Sodium (Lovenox) 40 mg DAILY SC Last administered on 10/10/16 09:11 ; Admin Dose 40 MG; Start 09/29/16 at 09:00 Aspirin (Aspirin) 81 mg DAILY PO Last administered on 10/10/16 08:56; Admin Dose 81 MG; Start 09/29/16 at 09:00 Atorvastatin Calcium (Lipitor) 10 mg QHS PO Last administered on 10/09/16 20:44 ; Admin Dose 10 MG; Start 09/28/16 at 21:00 Clopidogrel Bisulfate (plaVIX) 75 mg DAILY PO Last administered on 10/10/16 08: 55; Admin Dose 75 MG; Start 09/29/16 at 09:00 Furosemide (Lasix) 40 mg DAILY PO Last administered on 10/10/16 08:56; Admin Dose 40 MG; Start 09/29/16 at 09:00 Tiotropium [place] (Spiriva) 1 inh DAILY INH ; Start 09/28/16 at 16:00; Status Future Hold Mupirocin (Bactroban) 1 applic BID TOP Last administered on 10/10/16 08:58; Admin Dose 1 APPLIC; Start 09/30/16 at 09:00 Diagnostic Test (Pha) (Accucheck) 1 ea 02 XX ; Start 10/05/16 at 02:00 Miscellaneous Information 1 ea NOTE XX ; Start 10/04/16 at 09:00 Glucose (Glutose) 15 gm Q15M PRN PO DECREASED GLUCOSE; Start 10/04/16 at 09:00 Glucose (Glutose) 22.5 gm Q15M PRN PO DECREASED GLUCOSE; Start 10/04/16 at 09: 00 Dextrose (D50w Syringe) 25 ml Q15M PRN IV DECREASED GLUCOSE; Start 10/04/16 at 09:00 Dextrose (D50w Syringe) 50 ml Q15M PRN IV DECREASED GLUCOSE; Start 10/04/16 at 09:00 Glucagon (Glucagen) 1 mg Q15M PRN IM DECREASED GLUCOSE; Start 10/04/16 at 09:00 Glucose (Glutose) 15 gm Q15M PRN BUCCAL DECREASED GLUCOSE; Start 10/04/16 at 09 :00 Lisinopril (Zestril) 10 mg DAILY PO Last administered on 10/10/16 08:58; Admin Dose 10 MG; Start 10/06/16 at 09:00 Metoprolol Tartrate (Lopressor) 5 mg Q4 PRN IV HR>110 Hold SBP<100; Start 10/05 at 19:30 Metoprolol Succinate (Toprol Xl) 75 mg HS PO Last administered on 10/09/16 20: 45; Admin Dose 75 MG; Start 10/08/16 at 21:00 Metoprolol Succinate (Toprol Xl) 75 mg DAILY PO Last administered on 10/10/16 08:57; Admin Dose 75 MG; Start 10/09/16 at 09:00 Prednisone (Prednisone) 20 mg DAILY NGT Last administered on 10/10/16 08:56; Admin Dose 20 MG; Start 10/09/16 at 09:00 Amiodarone HCl (Cordarone) 200 mg BID PO Last administered on 10/10/16 08:55; Admin Dose 200 MG; Start 10/09/16 at 21:00 Insulin Glargine (Lantus) 15 unit HS SC ; Start 10/10/16 at 21:00 Montelukast Sodium (Singulair) 10 mg HS PO ; Start 10/10/16 at 21:00 Theophylline (Benji-24) 300 mg QHS PO ; Start 10/10/16 at 21:00 Diltiazem HCl (Cardizem Cd) 120 mg DAILY PO ; Start 10/11/16 at 09:00 JESUS OAKES DPM Oct 10, 2016 16:17
--- NOTE | 2016-10-10 17:45 | CONS ---
Date/Time of Note Date/Time of Note DATE: 10/10/16 TIME: 17:39 Assessment/Plan Assessment/Plan Additional Assessment/Plan 1. Atrial fibrillation with rapid ventricular response in NSR, CHF with EF 20- 25%, s/p AICD, Hypercapnic respiratory failure, COPD, Hypertension dyslipidemia with mild troponin elevation Hemodynamically stable Continue amiodarone Continue ASA a Continue Metoprolol and Lisinopril Continue diltiazem Started on Eliquis Consultation Date/Type/Reason Admit Date/Time Sep 28, 2016 at 14:41 Constitutional: no complaints (Denies fever chills or sweats) Respiratory: no complaints (Denies any shortness of breath or wheezing) Cardiovascular: no complaints (Denies chest pain palpitation) Gastrointestinal: no complaints (Denies nausea vomiting abdominal pain) Musculoskeletal: other (Patient has his right foot in a posterior splint. He reports he has no idea what happened.) Psychological: no complaints Past Surgical History Past Surgical Hx: no surgical history Social History Smoking Status: Former smoker Exam/Review of Systems Vital Signs Vitals Vital Signs Date Time Temp Pulse Resp B/P Pulse Ox O2 Delivery O2 Flow Rate FiO2 10/10/16 16:11 99.0 60 18 111/81 92 10/10/16 14:35 3.0 10/10/16 08:15 Nasal Cannula Intake and Output 10/09/16 10/09/16 10/10/16 15:00 23:00 07:00 Intake Total 800 ml Balance 800 ml Exam Head: atraumatic, normocephalic Neck: non-tender, supple Respiratory: clear to auscultation Cardiovascular: regular rate and rhythm Gastrointestinal: nl liver, spleen, non-tender, soft Extremities: normal pulses Results Result Diagram: 10/07/16 0550 10/07/16 0550 Results 24 hrs Laboratory Tests Test 10/09/16 17:53 10/09/16 20:27 10/10/16 01:41 10/10/16 07:58 Bedside Glucose 154 333 H 114 93 Test 10/10/16 11:39 10/10/16 17:20 Bedside Glucose 174 139 Medications Medications Current Medications IV Flush (NS 10 ml) 10 ml PRN PRN IV IV PROTOCOL; Start 09/28/16 at 14:00 Ondansetron HCl (Zofran Inj) 4 mg Q6H PRN IV NAUSEA AND/OR VOMITING; Start at 15:00 Nitroglycerin (Nitroglycerin (Sl Tab) 0.4 Mg) 1 tab Q5M PRN SL CHEST PAIN; Start 09/28/16 at 15:00 Acetaminophen (Tylenol Liquid) 650 mg Q6H PRN PO PAIN LEVEL 1-3 OR FEVER; Start 09/28/16 at 15:00 Acetaminophen (Tylenol Tab) 650 mg Q6H PRN PO PAIN LEVEL 1-3 OR FEVER; Start at 15:00 Morphine Sulfate (morphine) 2 mg Q4H PRN IV PAIN LEVEL 7-10 Last administered on 09/29/16 02:30; Admin Dose 2 MG; Start 09/28/16 at 15:00 Lorazepam (Ativan) 1 mg Q2H PRN IV ANXIETY; Start 09/28/16 at 15:00 Docusate Sodium (Colace) 100 mg Q12H PRN PO CONSTIPATION; Start 09/28/16 at 15: 00 Famotidine (Pepcid) 20 mg Q12 PO Last administered on 10/10/16 08:56; Admin Dose 20 MG; Start 09/28/16 at 21:00 Enoxaparin Sodium (Lovenox) 40 mg DAILY SC Last administered on 10/10/16 09:11 ; Admin Dose 40 MG; Start 09/29/16 at 09:00 Aspirin (Aspirin) 81 mg DAILY PO Last administered on 10/10/16 08:56; Admin Dose 81 MG; Start 09/29/16 at 09:00 Atorvastatin Calcium (Lipitor) 10 mg QHS PO Last administered on 10/09/16 20:44 ; Admin Dose 10 MG; Start 09/28/16 at 21:00 Clopidogrel Bisulfate (plaVIX) 75 mg DAILY PO Last administered on 10/10/16 08: 55; Admin Dose 75 MG; Start 09/29/16 at 09:00 Furosemide (Lasix) 40 mg DAILY PO Last administered on 10/10/16 08:56; Admin Dose 40 MG; Start 09/29/16 at 09:00 Tiotropium [place] (Spiriva) 1 inh DAILY INH ; Start 09/28/16 at 16:00; Status Future Hold Mupirocin (Bactroban) 1 applic BID TOP Last administered on 10/10/16 08:58; Admin Dose 1 APPLIC; Start 09/30/16 at 09:00 Diagnostic Test (Pha) (Accucheck) 1 ea 02 XX ; Start 10/05/16 at 02:00 Miscellaneous Information 1 ea NOTE XX ; Start 10/04/16 at 09:00 Glucose (Glutose) 15 gm Q15M PRN PO DECREASED GLUCOSE; Start 10/04/16 at 09:00 Glucose (Glutose) 22.5 gm Q15M PRN PO DECREASED GLUCOSE; Start 10/04/16 at 09: 00 Dextrose (D50w Syringe) 25 ml Q15M PRN IV DECREASED GLUCOSE; Start 10/04/16 at 09:00 Dextrose (D50w Syringe) 50 ml Q15M PRN IV DECREASED GLUCOSE; Start 10/04/16 at 09:00 Glucagon (Glucagen) 1 mg Q15M PRN IM DECREASED GLUCOSE; Start 10/04/16 at 09:00 Glucose (Glutose) 15 gm Q15M PRN BUCCAL DECREASED GLUCOSE; Start 10/04/16 at 09 :00 Lisinopril (Zestril) 10 mg DAILY PO Last administered on 10/10/16 08:58; Admin Dose 10 MG; Start 10/06/16 at 09:00 Metoprolol Tartrate (Lopressor) 5 mg Q4 PRN IV HR>110 Hold SBP<100; Start 10/05 at 19:30 Metoprolol Succinate (Toprol Xl) 75 mg HS PO Last administered on 10/09/16 20: 45; Admin Dose 75 MG; Start 10/08/16 at 21:00 Metoprolol Succinate (Toprol Xl) 75 mg DAILY PO Last administered on 10/10/16 08:57; Admin Dose 75 MG; Start 10/09/16 at 09:00 Prednisone (Prednisone) 20 mg DAILY NGT Last administered on 10/10/16 08:56; Admin Dose 20 MG; Start 10/09/16 at 09:00 Amiodarone HCl (Cordarone) 200 mg BID PO Last administered on 10/10/16 08:55; Admin Dose 200 MG; Start 10/09/16 at 21:00 Insulin Glargine (Lantus) 15 unit HS SC ; Start 10/10/16 at 21:00 Montelukast Sodium (Singulair) 10 mg HS PO ; Start 10/10/16 at 21:00 Theophylline (Benji-24) 300 mg QHS PO ; Start 10/10/16 at 21:00 Diltiazem HCl (Cardizem Cd) 120 mg DAILY PO ; Start 10/11/16 at 09:00 JUANJO GARNETT M.D. Oct 10, 2016 17:45
[2016-10-10] MEDS: ATORVASTATIN 10 MG TAB PO SCH (21:17)
[2016-10-10] MEDS: APIXABAN 5 MG TABLET PO SCH (21:17)
[2016-10-10] MEDS: THEOPHYLLINE (SR) 300 MG CAP PO SCH (21:17)
[2016-10-10] MEDS: MONTELUKAST 10 MG TAB PO SCH (21:17)
[2016-10-10] MEDS: INSULIN GLARGINE [LANtus] 3 ML PEN SC SCH (21:23)
[2016-10-11] VITALS (13 sets, daily range): BP systolic 115–147; BP diastolic 69–86; PULSE 59–71; RESP 16–21
[2016-10-11] MEDS: ACCU-CHEK XX SCH (02:00)
[2016-10-11] MEDS: ALBUTEROL/IPRATROPIUM (NEB) 3 ML AMP HHN SCH ×4 (02:05→20:50)
[2016-10-11] MEDS: INSULIN ASPART [NOVOLOG] 3 ML PEN SC SCH ×7 (07:55→21:10)
[2016-10-11] MEDS: predniSONE 20 MG TAB NGT SCH (08:24)
[2016-10-11] MEDS: ASPIRIN 81 MG TAB PO SCH (08:24)
[2016-10-11] MEDS: FAMOTIDINE 20 MG TAB PO SCH ×2 (08:24→21:00)
[2016-10-11] MEDS: APIXABAN 5 MG TABLET PO SCH ×2 (08:24→21:00)
[2016-10-11] MEDS: AMIODARONE 200 MG TAB PO SCH ×2 (08:25→21:00)
[2016-10-11] MEDS: METOPROLOL (XL) 25 MG TAB PO SCH ×2 (08:26→21:01)
[2016-10-11] MEDS: FUROSEMIDE 40 MG TAB PO SCH (08:27)
[2016-10-11] MEDS: LISINOPRIL 5 MG TAB PO SCH (08:27)
[2016-10-11] MEDS: MUPIROCIN 2% 22 GM OINT TOP SCH ×2 (08:28→20:59)
[2016-10-11] MEDS ORDERED: DILTIAZEM (CD) 180 MG CAP PO SCH (09:00)
--- NOTE | 2016-10-11 10:17 | PN ---
Date/Time of Note Date/Time of Note DATE: 10/11/16 TIME: 10:10 Assessment/Plan VTE Prophylaxis VTE Prophylaxis Intervention: heparin Lines/Catheters IV [facility] Urinary Cath still in place: No Assessment/Plan Problems: (1) COPD (chronic obstructive pulmonary disease) Status: Acute Comment: Is doing relatively stable using a full regimen of controller medications. At this time will continue these. Please notice a somewhat sensitive situation using the beta-liliana for his heart disease and not aggravating this particular issue. Further making life difficult is that this patient is going to be a compliance challenge at discharge as such ECF placements a consideration in addition he may need conservatorship please see the referrals to case management and social work Qualifiers: COPD type: emphysema Emphysema type: panlobular Qualified Code: J43.1 - Panlobular emphysema (2) Acute systolic congestive heart failure Status: Acute Comment: This has improved nicely. Now or in the phase of trying to make take steps to control long-term as an outpatient (3) Foot fracture, right Status: Chronic Comment: Please see the note from Dr. Swan of podiatry. He is change the dressings on this and given his full recommendations. Because of this will probably need to place him in an ECF Qualifiers: Encounter type: initial encounter Fracture type: closed Qualified Code: S92.901A - Foot fracture, right, closed, initial encounter (4) Diabetes mellitus type 2 in nonobese Status: Chronic Comment: Well-controlled on current regimen. (5) Klebsiella cystitis Status: Acute Comment: Clearing with appropriate antibiotic therapy (6) Hypertension Status: Chronic Comment: Well-controlled. Please note we have enough room to increase the ZEB inhibitor for the heart failure treatments and I will do so. Qualifiers: Hypertension type: essential hypertension Qualified Code: I10 - Essential hypertension (7) Hyperlipidemia associated with type 2 diabetes mellitus Status: Chronic Comment: On statin therapy (8) Systolic CHF with reduced left ventricular function, NYHA class 3 Status: Chronic Comment: The combination of the systolic heart failure with the COPD and the chronic atrial fibrillation is a daunting mixture in a patient with compliance issues. I am going to discontinue the calcium channel liliana in the setting of the heart failure and use a combination of beta blockade and digoxin to control the ventricular rate as well as the amiodarone. ZEB inhibitor will be titrated up. Ideally nebivolol would be a choice and since the most cardioselective beta-liliana available however there are no studies in nebivolol with heart failure and as such that limits this the usage of metoprolol which has to be carefully dosed to not aggravate his COPD (9) Atrial fibrillation Status: Chronic Comment: Currently controlled Qualifiers: Atrial fibrillation type: chronic Qualified Code: I48.2 - Chronic atrial fibrillation (10) Coronary artery disease Status: Chronic Comment: Noted and stable Qualifiers: Coronary Disease-Associated Artery/Lesion type: [place] artery [place] vs. transplanted heart: [place] heart Associated angina: without angina Qualified Code: I25.10 - Coronary artery disease involving [place] coronary artery of [place] heart without angina pectoris Subjective 24 Hr Interval Summary Free Text/Dictation Patient reports he is unsure why is in the hospital Constitutional: no complaints (No fever chills or sweats) Respiratory: no complaints (No shortness of breath no wheezing) Cardiovascular: no complaints (No chest pain no palpitation) Gastrointestinal: no complaints (No nausea no) Musculoskeletal: other (Reports that his foot pain is somewhat better with the change in the bracing) Exam/Review of Systems Vital Signs Vitals Vital Signs Date Time Temp Pulse Resp B/P Pulse Ox O2 Delivery O2 Flow Rate FiO2 10/11/16 08:35 65 10/11/16 08:30 Nasal Cannula 2.0 10/11/16 07:32 97.7 20 138/85 92 Intake and Output 10/10/16 10/10/16 10/11/16 15:00 23:00 07:00 Intake Total 300 ml 700 ml 400 ml Output Total 100 ml 900 ml 600 ml Balance 200 ml -200 ml -200 ml Exam Constitutional: alert, oriented Respiratory: clear to auscultation, normal air movement Cardiovascular: nl pulses, regular rate and rhythm Gastrointestinal: nl liver, spleen, non-tender, soft Results Result Diagram: 10/07/16 0550 10/07/16 0550 Results 24 hrs Laboratory Tests Test 10/10/16 11:39 10/10/16 17:20 10/10/16 20:51 10/11/16 02:25 Bedside Glucose 174 139 280 H 148 Test 10/11/16 07:33 Bedside Glucose 102 Medications Medications Current Medications IV Flush (NS 10 ml) 10 ml PRN PRN IV IV PROTOCOL; Start 09/28/16 at 14:00 Ondansetron HCl (Zofran Inj) 4 mg Q6H PRN IV NAUSEA AND/OR VOMITING; Start at 15:00 Nitroglycerin (Nitroglycerin (Sl Tab) 0.4 Mg) 1 tab Q5M PRN SL CHEST PAIN; Start 09/28/16 at 15:00 Acetaminophen (Tylenol Liquid) 650 mg Q6H PRN PO PAIN LEVEL 1-3 OR FEVER; Start 09/28/16 at 15:00 Acetaminophen (Tylenol Tab) 650 mg Q6H PRN PO PAIN LEVEL 1-3 OR FEVER; Start at 15:00 Morphine Sulfate (morphine) 2 mg Q4H PRN IV PAIN LEVEL 7-10 Last administered on 09/29/16 02:30; Admin Dose 2 MG; Start 09/28/16 at 15:00 Lorazepam (Ativan) 1 mg Q2H PRN IV ANXIETY; Start 09/28/16 at 15:00 Docusate Sodium (Colace) 100 mg Q12H PRN PO CONSTIPATION; Start 09/28/16 at 15: 00 Famotidine (Pepcid) 20 mg Q12 PO Last administered on 10/11/16 08:24; Admin Dose 20 MG; Start 09/28/16 at 21:00 Aspirin (Aspirin) 81 mg DAILY PO Last administered on 10/11/16 08:24; Admin Dose 81 MG; Start 09/29/16 at 09:00 Atorvastatin Calcium (Lipitor) 10 mg QHS PO Last administered on 10/10/16 21:17 ; Admin Dose 10 MG; Start 09/28/16 at 21:00 Furosemide (Lasix) 40 mg DAILY PO Last administered on 10/11/16 08:27; Admin Dose 40 MG; Start 09/29/16 at 09:00 Tiotropium [place] (Spiriva) 1 inh DAILY INH ; Start 09/28/16 at 16:00; Status Future Hold Mupirocin (Bactroban) 1 applic BID TOP Last administered on 10/11/16 08:28; Admin Dose 1 APPLIC; Start 09/30/16 at 09:00 Diagnostic Test (Pha) (Accucheck) 1 ea 02 XX ; Start 10/05/16 at 02:00 Miscellaneous Information 1 ea NOTE XX ; Start 10/04/16 at 09:00 Glucose (Glutose) 15 gm Q15M PRN PO DECREASED GLUCOSE; Start 10/04/16 at 09:00 Glucose (Glutose) 22.5 gm Q15M PRN PO DECREASED GLUCOSE; Start 10/04/16 at 09: 00 Dextrose (D50w Syringe) 25 ml Q15M PRN IV DECREASED GLUCOSE; Start 10/04/16 at 09:00 Dextrose (D50w Syringe) 50 ml Q15M PRN IV DECREASED GLUCOSE; Start 10/04/16 at 09:00 Glucagon (Glucagen) 1 mg Q15M PRN IM DECREASED GLUCOSE; Start 10/04/16 at 09:00 Glucose (Glutose) 15 gm Q15M PRN BUCCAL DECREASED GLUCOSE; Start 10/04/16 at 09 :00 Lisinopril (Zestril) 10 mg DAILY PO Last administered on 10/11/16 08:27; Admin Dose 10 MG; Start 10/06/16 at 09:00 Metoprolol Tartrate (Lopressor) 5 mg Q4 PRN IV HR>110 Hold SBP<100; Start 10/05 at 19:30 Metoprolol Succinate (Toprol Xl) 75 mg HS PO Last administered on 10/09/16 20: 45; Admin Dose 75 MG; Start 10/08/16 at 21:00 Metoprolol Succinate (Toprol Xl) 75 mg DAILY PO Last administered on 10/11/16 08:26; Admin Dose 75 MG; Start 10/09/16 at 09:00 Prednisone (Prednisone) 20 mg DAILY NGT Last administered on 10/11/16 08:24; Admin Dose 20 MG; Start 10/09/16 at 09:00 Amiodarone HCl (Cordarone) 200 mg BID PO Last administered on 10/11/16 08:25; Admin Dose 200 MG; Start 10/09/16 at 21:00 Insulin Glargine (Lantus) 15 unit HS SC Last administered on 10/10/16 21:23; Admin Dose 15 UNIT; Start 10/10/16 at 21:00 Montelukast Sodium (Singulair) 10 mg HS PO Last administered on 10/10/16 21:17 ; Admin Dose 10 MG; Start 10/10/16 at 21:00 Theophylline (Benji-24) 300 mg QHS PO Last administered on 10/10/16 21:17; Admin Dose 300 MG; Start 10/10/16 at 21:00 Apixaban (Eliquis) 5 mg BID PO Last administered on 10/11/16 08:24; Admin Dose 5 MG; Start 10/10/16 at 21:00 Digoxin (Digoxin) 0.25 mg ONCE ONCE PO ; Start 10/11/16 at 10:30; Stop 10/11/16 at 10:31; Status UNV Digoxin (Digoxin) 0.125 mg DAILY@13 PO ; Start 10/11/16 at 13:00; Status UNV DEVON MUHAMMAD MD Oct 11, 2016 10:17
[2016-10-11] MEDS ORDERED: DIGOXIN 0.25 MG TAB PO ONE (10:30)
--- NOTE | 2016-10-11 15:26 | CONS ---
Date/Time of Note Date/Time of Note DATE: 10/11/16 TIME: 15:25 Consult Date/Type/Reason Admit Date/Time Sep 28, 2016 at 14:41 Initial Consult Date 09/28/16 Type of Consultation: pulmonary Ordering Provider: BAKARI MEZA MD Subjective Comfortable. Objective Vital Signs Date Time Temp Pulse Resp B/P Pulse Ox O2 Delivery O2 Flow Rate FiO2 10/11/16 15:14 98.0 60 20 124/69 95 10/11/16 13:56 3.0 10/11/16 13:55 Nasal Cannula Intake and Output 10/10/16 10/10/16 10/11/16 15:00 23:00 07:00 Intake Total 300 ml 700 ml 400 ml Output Total 100 ml 900 ml 600 ml Balance 200 ml -200 ml -200 ml GENERAL: Elderly gentleman comfortable at rest VITAL SIGNS: per chart NECK: Supple. No JVD or lymphadenopathy. CARDIAC EXAM: S1, S2. No added sounds or murmurs. CHEST: clear bilaterally, No added sounds, rales or wheezes ABDOMEN: Soft, nontender. No guarding or rebound. EXTREMITIES: No cyanosis, clubbing or edema. NEUROLOGIC: Generalized weakness. No focal deficits. Results/Medications Result Diagram: 10/07/16 0550 10/07/16 0550 Results 24 hrs Laboratory Tests Test 10/10/16 17:20 10/10/16 20:51 10/11/16 02:25 10/11/16 07:33 Bedside Glucose 139 280 H 148 102 Test 10/11/16 11:56 Bedside Glucose 129 Medications Current Medications IV Flush (NS 10 ml) 10 ml PRN PRN IV IV PROTOCOL; Start 09/28/16 at 14:00 Ondansetron HCl (Zofran Inj) 4 mg Q6H PRN IV NAUSEA AND/OR VOMITING; Start at 15:00 Nitroglycerin (Nitroglycerin (Sl Tab) 0.4 Mg) 1 tab Q5M PRN SL CHEST PAIN; Start 09/28/16 at 15:00 Acetaminophen (Tylenol Liquid) 650 mg Q6H PRN PO PAIN LEVEL 1-3 OR FEVER; Start 09/28/16 at 15:00 Acetaminophen (Tylenol Tab) 650 mg Q6H PRN PO PAIN LEVEL 1-3 OR FEVER; Start at 15:00 Morphine Sulfate (morphine) 2 mg Q4H PRN IV PAIN LEVEL 7-10 Last administered on 09/29/16 02:30; Admin Dose 2 MG; Start 09/28/16 at 15:00 Lorazepam (Ativan) 1 mg Q2H PRN IV ANXIETY; Start 09/28/16 at 15:00 Docusate Sodium (Colace) 100 mg Q12H PRN PO CONSTIPATION; Start 09/28/16 at 15: 00 Famotidine (Pepcid) 20 mg Q12 PO Last administered on 10/11/16 08:24; Admin Dose 20 MG; Start 09/28/16 at 21:00 Aspirin (Aspirin) 81 mg DAILY PO Last administered on 10/11/16 08:24; Admin Dose 81 MG; Start 09/29/16 at 09:00 Atorvastatin Calcium (Lipitor) 10 mg QHS PO Last administered on 10/10/16 21:17 ; Admin Dose 10 MG; Start 09/28/16 at 21:00 Furosemide (Lasix) 40 mg DAILY PO Last administered on 10/11/16 08:27; Admin Dose 40 MG; Start 09/29/16 at 09:00 Tiotropium [place] (Spiriva) 1 inh DAILY INH ; Start 09/28/16 at 16:00; Status Future Hold Mupirocin (Bactroban) 1 applic BID TOP Last administered on 10/11/16 08:28; Admin Dose 1 APPLIC; Start 09/30/16 at 09:00 Diagnostic Test (Pha) (Accucheck) 1 ea 02 XX ; Start 10/05/16 at 02:00 Miscellaneous Information 1 ea NOTE XX ; Start 10/04/16 at 09:00 Glucose (Glutose) 15 gm Q15M PRN PO DECREASED GLUCOSE; Start 10/04/16 at 09:00 Glucose (Glutose) 22.5 gm Q15M PRN PO DECREASED GLUCOSE; Start 10/04/16 at 09: 00 Dextrose (D50w Syringe) 25 ml Q15M PRN IV DECREASED GLUCOSE; Start 10/04/16 at 09:00 Dextrose (D50w Syringe) 50 ml Q15M PRN IV DECREASED GLUCOSE; Start 10/04/16 at 09:00 Glucagon (Glucagen) 1 mg Q15M PRN IM DECREASED GLUCOSE; Start 10/04/16 at 09:00 Glucose (Glutose) 15 gm Q15M PRN BUCCAL DECREASED GLUCOSE; Start 10/04/16 at 09 :00 Metoprolol Tartrate (Lopressor) 5 mg Q4 PRN IV HR>110 Hold SBP<100; Start 10/05 at 19:30 Metoprolol Succinate (Toprol Xl) 75 mg HS PO Last administered on 10/09/16 20: 45; Admin Dose 75 MG; Start 10/08/16 at 21:00 Metoprolol Succinate (Toprol Xl) 75 mg DAILY PO Last administered on 10/11/16 08:26; Admin Dose 75 MG; Start 10/09/16 at 09:00 Amiodarone HCl (Cordarone) 200 mg BID PO Last administered on 10/11/16 08:25; Admin Dose 200 MG; Start 10/09/16 at 21:00 Insulin Glargine (Lantus) 15 unit HS SC Last administered on 10/10/16 21:23; Admin Dose 15 UNIT; Start 10/10/16 at 21:00 Montelukast Sodium (Singulair) 10 mg HS PO Last administered on 10/10/16 21:17 ; Admin Dose 10 MG; Start 10/10/16 at 21:00 Theophylline (Benji-24) 300 mg QHS PO Last administered on 10/10/16 21:17; Admin Dose 300 MG; Start 10/10/16 at 21:00 Apixaban (Eliquis) 5 mg BID PO Last administered on 10/11/16 08:24; Admin Dose 5 MG; Start 10/10/16 at 21:00 Digoxin (Digoxin) 0.125 mg DAILY@13 PO ; Start 10/12/16 at 13:00 Lisinopril (Zestril) 20 mg DAILY PO ; Start 10/12/16 at 09:00 Prednisone (Prednisone) 15 mg DAILY PO ; Start 10/12/16 at 09:00 Assessment/Plan Chief Complaint/Hosp Course Assessment 1. Acute on chronic hypoxemic and hypercapnic respiratory failure 2. Lower extremity wound 3. Long-standing history of COPD Plan 1. Continue bronchodilators 2. Physical therapy evaluation 3. Continue aspiration precautions 4. Podiatry recommendations 5. Agree with discharge planning dw case management. needs placement. Problems: HAILE ROMO MD, [facility] Oct 11, 2016 15:26
--- NOTE | 2016-10-11 18:12 | CONS ---
Date/Time of Note Date/Time of Note DATE: 10/11/16 TIME: 18:10 Assessment/Plan Assessment/Plan Additional Assessment/Plan Atrial fibrillation with rapid ventricular response in NSR, CHF with EF 20-25%, s/p AICD, Hypercapnic respiratory failure, COPD, Hypertension dyslipidemia with mild troponin elevation Hemodynamically stable Continue amiodarone Continue ASA Continue Metoprolol and Lisinopril Continue diltiazem Continue Eliquis replete Potassium Consultation Date/Type/Reason Admit Date/Time Sep 28, 2016 at 14:41 Initial Consult Date 09/28/16 Type of Consultation: pulmonary Referring Provider: BAKARI MEZA MD Exam/Review of Systems Vital Signs Vitals Vital Signs Date Time Temp Pulse Resp B/P Pulse Ox O2 Delivery O2 Flow Rate FiO2 10/11/16 16:53 59 10/11/16 15:14 98.0 20 124/69 95 10/11/16 13:56 3.0 10/11/16 13:55 Nasal Cannula Intake and Output 10/10/16 10/10/16 10/11/16 15:00 23:00 07:00 Intake Total 300 ml 700 ml 400 ml Output Total 100 ml 900 ml 600 ml Balance 200 ml -200 ml -200 ml Exam Head: atraumatic, normocephalic Neck: non-tender, supple Respiratory: clear to auscultation Cardiovascular: regular rate and rhythm Gastrointestinal: nl liver, spleen, non-tender, soft Extremities: normal pulses Results Result Diagram: 10/07/16 0550 10/07/16 0550 Results 24 hrs Laboratory Tests Test 10/10/16 20:51 10/11/16 02:25 10/11/16 07:33 10/11/16 11:56 Bedside Glucose 280 H 148 102 129 Test 10/11/16 17:51 Bedside Glucose 137 Medications Medications Current Medications IV Flush (NS 10 ml) 10 ml PRN PRN IV IV PROTOCOL; Start 09/28/16 at 14:00 Ondansetron HCl (Zofran Inj) 4 mg Q6H PRN IV NAUSEA AND/OR VOMITING; Start at 15:00 Nitroglycerin (Nitroglycerin (Sl Tab) 0.4 Mg) 1 tab Q5M PRN SL CHEST PAIN; Start 09/28/16 at 15:00 Acetaminophen (Tylenol Liquid) 650 mg Q6H PRN PO PAIN LEVEL 1-3 OR FEVER; Start 09/28/16 at 15:00 Acetaminophen (Tylenol Tab) 650 mg Q6H PRN PO PAIN LEVEL 1-3 OR FEVER; Start at 15:00 Morphine Sulfate (morphine) 2 mg Q4H PRN IV PAIN LEVEL 7-10 Last administered on 09/29/16 02:30; Admin Dose 2 MG; Start 09/28/16 at 15:00 Lorazepam (Ativan) 1 mg Q2H PRN IV ANXIETY; Start 09/28/16 at 15:00 Docusate Sodium (Colace) 100 mg Q12H PRN PO CONSTIPATION; Start 09/28/16 at 15: 00 Famotidine (Pepcid) 20 mg Q12 PO Last administered on 10/11/16 08:24; Admin Dose 20 MG; Start 09/28/16 at 21:00 Aspirin (Aspirin) 81 mg DAILY PO Last administered on 10/11/16 08:24; Admin Dose 81 MG; Start 09/29/16 at 09:00 Atorvastatin Calcium (Lipitor) 10 mg QHS PO Last administered on 10/10/16 21:17 ; Admin Dose 10 MG; Start 09/28/16 at 21:00 Furosemide (Lasix) 40 mg DAILY PO Last administered on 10/11/16 08:27; Admin Dose 40 MG; Start 09/29/16 at 09:00 Tiotropium [place] (Spiriva) 1 inh DAILY INH ; Start 09/28/16 at 16:00; Status Future Hold Mupirocin (Bactroban) 1 applic BID TOP Last administered on 10/11/16 08:28; Admin Dose 1 APPLIC; Start 09/30/16 at 09:00 Diagnostic Test (Pha) (Accucheck) 1 ea 02 XX ; Start 10/05/16 at 02:00 Miscellaneous Information 1 ea NOTE XX ; Start 10/04/16 at 09:00 Glucose (Glutose) 15 gm Q15M PRN PO DECREASED GLUCOSE; Start 10/04/16 at 09:00 Glucose (Glutose) 22.5 gm Q15M PRN PO DECREASED GLUCOSE; Start 10/04/16 at 09: 00 Dextrose (D50w Syringe) 25 ml Q15M PRN IV DECREASED GLUCOSE; Start 10/04/16 at 09:00 Dextrose (D50w Syringe) 50 ml Q15M PRN IV DECREASED GLUCOSE; Start 10/04/16 at 09:00 Glucagon (Glucagen) 1 mg Q15M PRN IM DECREASED GLUCOSE; Start 10/04/16 at 09:00 Glucose (Glutose) 15 gm Q15M PRN BUCCAL DECREASED GLUCOSE; Start 10/04/16 at 09 :00 Metoprolol Tartrate (Lopressor) 5 mg Q4 PRN IV HR>110 Hold SBP<100; Start 10/05 at 19:30 Metoprolol Succinate (Toprol Xl) 75 mg HS PO Last administered on 10/09/16 20: 45; Admin Dose 75 MG; Start 10/08/16 at 21:00 Metoprolol Succinate (Toprol Xl) 75 mg DAILY PO Last administered on 10/11/16 08:26; Admin Dose 75 MG; Start 10/09/16 at 09:00 Amiodarone HCl (Cordarone) 200 mg BID PO Last administered on 10/11/16 08:25; Admin Dose 200 MG; Start 10/09/16 at 21:00 Insulin Glargine (Lantus) 15 unit HS SC Last administered on 10/10/16 21:23; Admin Dose 15 UNIT; Start 10/10/16 at 21:00 Montelukast Sodium (Singulair) 10 mg HS PO Last administered on 10/10/16 21:17 ; Admin Dose 10 MG; Start 10/10/16 at 21:00 Theophylline (Benji-24) 300 mg QHS PO Last administered on 10/10/16 21:17; Admin Dose 300 MG; Start 10/10/16 at 21:00 Apixaban (Eliquis) 5 mg BID PO Last administered on 10/11/16 08:24; Admin Dose 5 MG; Start 10/10/16 at 21:00 Digoxin (Digoxin) 0.125 mg DAILY@13 PO ; Start 10/12/16 at 13:00 Lisinopril (Zestril) 20 mg DAILY PO ; Start 10/12/16 at 09:00 Prednisone (Prednisone) 15 mg DAILY PO ; Start 10/12/16 at 09:00 JUANJO GARNETT M.D. Oct 11, 2016 18:12
--- NOTE | 2016-10-11 19:22 | RADRPT ---
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 Physician: CHAIM GARNETT Quality: Technically Difficult Study Procedures: Transthoracic echocardiogram with complete 2D, M-Mode, and doppler examination. Indications: Atrial Fibrillation. Congestive Heart Failure. 2D/M Mode Doppler Measurement Value Normal Ranges Measurement Value Normal Ranges AoR Diam MM 4.1 cm AV Peak Pee 1.2 m/sec ACS MM 2.0 cm AV Peak PG 6.2 mmHg LVIDd 2D 5.2 3.5 - 5.6 cm LVOT Peak Pee 1.0 m/sec LVIDs 2D 4.2 2.1 - 4.1 cm LVOT Peak PG 4.0 mmHg LVPWd 2D 0.8 0.6 - 1.1 cm TR Peak Pee 2.6 m/sec IVSd 2D 1.4 0.6 - 1.1 cm TR Peak PG 27.5 mmHg EDV 2D 127.6 cm3 PV Peak Pee 1.1 m/sec ESV 2D 72.0 cm3 PV Peak PG 5.0 mmHg LA Dimen 2D 4.4 2.3 - 4.0 cm RVSP 30.5 mmHg Findings Left Ventricle: Normal left ventricular cavity size. Mild hypertrophy of the basal septum. Severe left ventricular systolic dysfunction. Ejection fraction is visually estimated at 30 %. Tissue Doppler/Mitral Doppler indices are indeterminate in this study according to the new diastolic parameters. E/E`=10. These segments of the LV are akinetic anterior apex segment, Lateral apex segment, inferior apex segment, septum base segment and mid septum segment. These segments of the LV are dyskinetic anteroseptum mid segment. Right Ventricle: Normal right ventricular size. Normal right ventricular systolic function. Linear artifact in right ventricle suggestive of catheter, pacer lead, or ICD lead. Left Atrium: There is mild enlargement of left atrium. Right Atrium: The right atrium is normal in size. Atrial Septum: Normal atrial septum. Mitral Valve: Mild mitral annular calcification. Mild mitral valve regurgitation. Aortic Valve: No hemodynamically significant aortic stenosis by doppler. Trileaflet aortic valve. Trace aortic valve regurgitation. Tricuspid Valve: Normal appearance of the tricuspid valve. Estimated peak PA systolic pressure 31 mmHg. There is mild tricuspid regurgitation. Pulmonic Valve: Normal pulmonic valve appearance. No evidence of pulmonic regurgitation. Pericardium: Normal pericardium with no significant pericardial effusion. Aorta: There is mild aortic root dilation. IVC: Normal size and normal respiratory collapse consistent with normal right atrial pressure. Pulmonary Artery: Normal pulmonary artery size. Conclusions 1.Normal left ventricular cavity size. Mild hypertrophy of the basal septum. Severe left ventricular systolic dysfunction. Ejection fraction is visually estimated at 30 %. These segments of the LV are akinetic anterior apex segment, Lateral apex segment, inferior apex segment, septum base segment and mid septum segment. 2.Normal right ventricular size. Normal right ventricular systolic function. Linear artifact in right ventricle suggestive of catheter, pacer lead, or ICD lead. 3.Mild mitral annular calcification. Mild mitral valve regurgitation. 4.No hemodynamically significant aortic stenosis by doppler. Trileaflet aortic valve. Trace aortic valve regurgitation. 5.Normal appearance of the tricuspid valve. Estimated peak PA systolic pressure 31 mmHg. There is mild tricuspid regurgitation. 6.Normal pericardium with no significant pericardial effusion. 7.Normal pulmonic valve appearance. No evidence of pulmonic regurgitation. Electronically Signed By: Chaim Garnett 11-Oct-2016 19:21:35 -0800 Patient Name: LILIA DOWNEY Study Date: 11-Oct-2016 [id number]
[2016-10-11] MEDS: THEOPHYLLINE (SR) 300 MG CAP PO SCH (20:59)
[2016-10-11] MEDS: ATORVASTATIN 10 MG TAB PO SCH (21:00)
[2016-10-11] MEDS: MONTELUKAST 10 MG TAB PO SCH (21:01)
[2016-10-11] MEDS: INSULIN GLARGINE [LANtus] 3 ML PEN SC SCH (21:06)
[2016-10-12] VITALS (9 sets, daily range): BP systolic 103–134; BP diastolic 67–76; PULSE 64–79; RESP 17–18
[2016-10-12] MEDS: ALBUTEROL/IPRATROPIUM (NEB) 3 ML AMP HHN SCH ×4 (02:00→20:43)
[2016-10-12] MEDS: ACCU-CHEK XX SCH (02:00)
[2016-10-12 06:49] LABS: EOSINOPHILS # 0.1 10^3/ul (0.0-0.5); EOSINOPHILS % 0.7 % (0.0-7.0); HEMATOCRIT 32.2 % (42.0-52.0); HEMOGLOBIN 10.8 g/dl (14.0-18.0); LYMPHOCYTES # 1.1 10^3/ul (0.8-2.9); MEAN CORPUSCULAR HEMOGLOBIN 32.9 pg (29.0-33.0); MEAN CORPUSCULAR HGB CONC 33.4 g/dl (32.0-37.0); MEAN CORPUSCULAR VOLUME 98.4 fl (82.0-101.0); MEAN PLATELET VOLUME 6.8 fl (7.4-10.4); MONOCYTE # 0.8 10^3/ul (0.3-0.9); MONOCYTES % 6.4 % (0.0-11.0); NEUTROPHIL # 10.7 10^3/ul (1.6-7.5); NEUTROPHILS % 83.9 % (39.0-77.0); PLATELET COUNT 267 10^3/UL (140-440); RED BLOOD COUNT 3.27 10^6/ul (4.70-6.10); RED CELL DISTRIBUTION WIDTH 16.2 % (11.5-14.5); UNCORRECTED WBC 12.7 10^3/ul (4.8-10.8); WHITE BLOOD COUNT 12.7 10^3/ul (4.8-10.8)
[2016-10-12 06:54] LABS: CONDITION 1; LH ANALYZER COMMENTS 1
[2016-10-12 07:00] LABS: POTASSIUM 3.7 mmol/L (3.5-5.1)
[2016-10-12 07:02] LABS: CREATININE 0.63 mg/dl (0.61-1.24)
[2016-10-12 07:03] LABS: CALCIUM 9.3 mg/dl (8.4-10.2)
[2016-10-12] MEDS: INSULIN ASPART [NOVOLOG] 3 ML PEN SC SCH ×7 (07:55→21:00)
[2016-10-12] MEDS: predniSONE 5 MG TAB PO SCH (08:32)
[2016-10-12] MEDS: ASPIRIN 81 MG TAB PO SCH (08:32)
[2016-10-12] MEDS: METOPROLOL (XL) 25 MG TAB PO SCH ×2 (08:32→21:59)
[2016-10-12] MEDS: FAMOTIDINE 20 MG TAB PO SCH ×2 (08:33→21:55)
[2016-10-12] MEDS: LISINOPRIL 5 MG TAB PO SCH (08:33)
[2016-10-12] MEDS: APIXABAN 5 MG TABLET PO SCH ×2 (08:33→21:54)
[2016-10-12] MEDS: MUPIROCIN 2% 22 GM OINT TOP SCH ×2 (08:33→22:00)
[2016-10-12] MEDS: FUROSEMIDE 40 MG TAB PO SCH (08:33)
[2016-10-12] MEDS: AMIODARONE 200 MG TAB PO SCH ×2 (08:33→21:54)
--- NOTE | 2016-10-12 09:49 | CONS ---
Date/Time of Note Date/Time of Note DATE: 10/12/16 TIME: 09:46 Assessment/Plan Assessment/Plan Additional Assessment/Plan Assessment and recommendations; 1. Patient admitted with respiratory failure with severe bilateral pneumonia and hypercapnic respiratory failure doing very well now. 2. Underlying severe COPD. 3. CHF. 4. Diabetes. 5. Hypertension. 6. Atrial fibrillation. Continue current treatment. Patient is awaiting placement to a custodial. Consultation Date/Type/Reason Admit Date/Time Sep 28, 2016 at 14:41 Initial Consult Date 09/28/16 Type of Consultation: pulmonary Referring Provider: BAKARI MEZA MD 24 HR Interval Summary Free Text/Dictation Patient condition is stable. Sitting in a chair by bedside. Has any shortness of breath, wheezing, chest pain, cough, sputum production. General examination; middle-aged man, awake alert currently in no distress. Exam/Review of Systems Vital Signs Vitals Vital Signs Date Time Temp Pulse Resp B/P Pulse Ox O2 Delivery O2 Flow Rate FiO2 10/12/16 08:47 77 10/12/16 08:46 20 96 Nasal Cannula 3.0 10/12/16 08:06 98.4 125/67 Intake and Output 10/11/16 10/11/16 10/12/16 15:00 23:00 07:00 Intake Total 960 ml 600 ml Output Total 3 ml Balance 960 ml 597 ml Exam H EENT examination; supple neck, no JVD. No lymphadenopathy. Midline trachea. Pharynx is clear. Chest examination; diminished but clear breath sounds bilaterally. S1-S2 audible. No murmurs. Irregular rhythm. Abdomen examination; soft, nontender, nondistended, bowel sounds audible. No organomegaly. Extremity examination; no peripheral edema. Patient has stable bilateral duptyren's contractures. 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 Results Result Diagram: 10/12/16 0620 10/12/16 0620 Results 24 hrs Laboratory Tests Test 10/11/16 11:56 10/11/16 17:51 10/11/16 20:07 10/12/16 06:20 Bedside Glucose 129 137 211 Anion Gap 13 Basophils # 0.0 Basophils % 0.0 Blood Morphology Comment Blood Urea Nitrogen 29 H Calcium Level 9.3 Carbon Dioxide Level 40 H Chloride Level 91 L Creatinine 0.63 Eosinophils # 0.1 Eosinophils % 0.7 Erythrocyte Sedimentation Rate 20 Glucose Level 94 Hematocrit 32.2 L Hemoglobin 10.8 L Lymphocytes # 1.1 Lymphocytes % 9.0 L Mean Corpuscular Hemoglobin 32.9 Mean Corpuscular Hemoglobin Concent 33.4 Mean Corpuscular Volume 98.4 Mean Platelet Volume 6.8 L Monocytes # 0.8 Monocytes % 6.4 Neutrophils # 10.7 H Neutrophils % 83.9 H Nucleated Red Blood Cells # 0.0 Nucleated Red Blood Cells % 0.0 Platelet Count 267 # Potassium Level 3.7 Red Blood Count 3.27 L Red Cell Distribution Width 16.2 H Sodium Level 140 White Blood Count 12.7 H Test 10/12/16 08:30 Bedside Glucose 102 Medications Medications Current Medications IV Flush (NS 10 ml) 10 ml PRN PRN IV IV PROTOCOL; Start 09/28/16 at 14:00 Ondansetron HCl (Zofran Inj) 4 mg Q6H PRN IV NAUSEA AND/OR VOMITING; Start at 15:00 Nitroglycerin (Nitroglycerin (Sl Tab) 0.4 Mg) 1 tab Q5M PRN SL CHEST PAIN; Start 09/28/16 at 15:00 Acetaminophen (Tylenol Liquid) 650 mg Q6H PRN PO PAIN LEVEL 1-3 OR FEVER; Start 09/28/16 at 15:00 Acetaminophen (Tylenol Tab) 650 mg Q6H PRN PO PAIN LEVEL 1-3 OR FEVER; Start at 15:00 Morphine Sulfate (morphine) 2 mg Q4H PRN IV PAIN LEVEL 7-10 Last administered on 09/29/16 02:30; Admin Dose 2 MG; Start 09/28/16 at 15:00 Lorazepam (Ativan) 1 mg Q2H PRN IV ANXIETY; Start 09/28/16 at 15:00 Docusate Sodium (Colace) 100 mg Q12H PRN PO CONSTIPATION; Start 09/28/16 at 15: 00 Famotidine (Pepcid) 20 mg Q12 PO Last administered on 10/12/16 08:33; Admin Dose 20 MG; Start 09/28/16 at 21:00 Aspirin (Aspirin) 81 mg DAILY PO Last administered on 10/12/16 08:32; Admin Dose 81 MG; Start 09/29/16 at 09:00 Atorvastatin Calcium (Lipitor) 10 mg QHS PO Last administered on 10/11/16 21:00 ; Admin Dose 10 MG; Start 09/28/16 at 21:00 Furosemide (Lasix) 40 mg DAILY PO Last administered on 10/12/16 08:33; Admin Dose 40 MG; Start 09/29/16 at 09:00 Tiotropium [place] (Spiriva) 1 inh DAILY INH ; Start 09/28/16 at 16:00; Status Future Hold Mupirocin (Bactroban) 1 applic BID TOP Last administered on 10/12/16 08:33; Admin Dose 1 APPLIC; Start 09/30/16 at 09:00 Diagnostic Test (Pha) (Accucheck) 1 ea 02 XX ; Start 10/05/16 at 02:00 Miscellaneous Information 1 ea NOTE XX ; Start 10/04/16 at 09:00 Glucose (Glutose) 15 gm Q15M PRN PO DECREASED GLUCOSE; Start 10/04/16 at 09:00 Glucose (Glutose) 22.5 gm Q15M PRN PO DECREASED GLUCOSE; Start 10/04/16 at 09: 00 Dextrose (D50w Syringe) 25 ml Q15M PRN IV DECREASED GLUCOSE; Start 10/04/16 at 09:00 Dextrose (D50w Syringe) 50 ml Q15M PRN IV DECREASED GLUCOSE; Start 10/04/16 at 09:00 Glucagon (Glucagen) 1 mg Q15M PRN IM DECREASED GLUCOSE; Start 10/04/16 at 09:00 Glucose (Glutose) 15 gm Q15M PRN BUCCAL DECREASED GLUCOSE; Start 10/04/16 at 09 :00 Metoprolol Tartrate (Lopressor) 5 mg Q4 PRN IV HR>110 Hold SBP<100; Start 10/05 at 19:30 Metoprolol Succinate (Toprol Xl) 75 mg HS PO Last administered on 10/11/16 21: 01; Admin Dose 75 MG; Start 10/08/16 at 21:00 Metoprolol Succinate (Toprol Xl) 75 mg DAILY PO Last administered on 10/12/16 08:32; Admin Dose 75 MG; Start 10/09/16 at 09:00 Amiodarone HCl (Cordarone) 200 mg BID PO Last administered on 10/12/16 08:33; Admin Dose 200 MG; Start 10/09/16 at 21:00 Insulin Glargine (Lantus) 15 unit HS SC Last administered on 10/11/16 21:06; Admin Dose 15 UNIT; Start 10/10/16 at 21:00 Montelukast Sodium (Singulair) 10 mg HS PO Last administered on 10/11/16 21:01 ; Admin Dose 10 MG; Start 10/10/16 at 21:00 Theophylline (Benji-24) 300 mg QHS PO Last administered on 10/11/16 20:59; Admin Dose 300 MG; Start 10/10/16 at 21:00 Apixaban (Eliquis) 5 mg BID PO Last administered on 10/12/16 08:33; Admin Dose 5 MG; Start 10/10/16 at 21:00 Digoxin (Digoxin) 0.125 mg DAILY@13 PO ; Start 10/12/16 at 13:00 Lisinopril (Zestril) 20 mg DAILY PO Last administered on 10/12/16 08:33; Admin Dose 20 MG; Start 10/12/16 at 09:00 Prednisone (Prednisone) 15 mg DAILY PO Last administered on 10/12/16 08:32; Admin Dose 15 MG; Start 10/12/16 at 09:00 ROSE PÉREZ Oct 12, 2016 09:49
[2016-10-12] MEDS: DIGOXIN 0.125 MG TAB PO SCH (12:26)
--- NOTE | 2016-10-12 13:25 | CONS ---
Date/Time of Note Date/Time of Note DATE: 10/12/16 TIME: 10:48 Assessment/Plan Assessment/Plan Chief Complaint/Hosp Course IMPRESSION: 1. Atrial fibrillation with rapid ventricular response.-improved HR and now in SR 2. Congestive heart failure, systolic, acute on chronic. 3. History of cardiomyopathy with decreased left ventricular ejection fraction 20% to 25% per chart biopsy. 4. Shortness of breath. 5. Status post hypercapnic respiratory failure, status post extubation. 6. Chronic obstructive pulmonary disease. 7. Hypertension. 8. Dyslipidemia. 9. History of automatic implantable cardioverter-defibrillator with possible discharge.-s/p interrogation with ICD shock for uncontrolled rapid AF. Per patient possible ICD discharge overnight? 10. Pneumonia. 11.Positive troponin-minimal with no sig uptrend Recc -Tele -serial ecg's -Continue asa/E;iquis -Continue BB/digoxin -Continue ACEI -Continue statin -Continue amiodarone BID for now -Ok to med-sureg Problems: Consultation Date/Type/Reason Admit Date/Time Sep 28, 2016 at 14:41 Initial Consult Date 09/28/16 Type of Consultation: Cardiology Reason for Consultation AF Referring Provider: BAKARI MEZA MD Exam/Review of Systems Vital Signs Vitals Vital Signs Date Time Temp Pulse Resp B/P Pulse Ox O2 Delivery O2 Flow Rate FiO2 10/12/16 10:27 Nasal Cannula 2.0 10/12/16 08:47 77 10/12/16 08:46 20 96 10/12/16 08:06 98.4 125/67 Intake and Output 10/11/16 10/11/16 10/12/16 15:00 23:00 07:00 Intake Total 960 ml 600 ml Output Total 3 ml Balance 960 ml 597 ml Exam Review of Systems: CONSTITUTIONAL: No fevers, chills. PULMONARY: No sob CARDIOVASCULAR: No chest pain/palpitations GASTROINTESTINAL: No nausea/vomiting. GENITOURINARY: No hematuria/dysuria. MUSCULOSKELETAL: No myagias/arthalgias. PSYCHIATRIC: The patient denies depression. NEUROLOGIC: No weakness Constitutional: alert, oriented Psych: no complaints Head: normocephalic ENMT: mucosa pink and moist Neck: jvd, supple Respiratory: diminished breath sounds (at bases/B) Cardiovascular: regular rate and rhythm Gastrointestinal: non-tender, soft Musculoskeletal: muscle tone (normal) Extremities: edema Neurological: other (No focal deficits) Results Result Diagram: 10/12/16 0620 10/12/16 0620 Results 24 hrs Laboratory Tests Test 10/11/16 11:56 10/11/16 17:51 10/11/16 20:07 10/12/16 06:20 Bedside Glucose 129 137 211 Anion Gap 13 Basophils # 0.0 Basophils % 0.0 Blood Morphology Comment Blood Urea Nitrogen 29 H Calcium Level 9.3 Carbon Dioxide Level 40 H Chloride Level 91 L Creatinine 0.63 Eosinophils # 0.1 Eosinophils % 0.7 Erythrocyte Sedimentation Rate 20 Glucose Level 94 Hematocrit 32.2 L Hemoglobin 10.8 L Lymphocytes # 1.1 Lymphocytes % 9.0 L Mean Corpuscular Hemoglobin 32.9 Mean Corpuscular Hemoglobin Concent 33.4 Mean Corpuscular Volume 98.4 Mean Platelet Volume 6.8 L Monocytes # 0.8 Monocytes % 6.4 Neutrophils # 10.7 H Neutrophils % 83.9 H Nucleated Red Blood Cells # 0.0 Nucleated Red Blood Cells % 0.0 Platelet Count 267 # Potassium Level 3.7 Red Blood Count 3.27 L Red Cell Distribution Width 16.2 H Sodium Level 140 White Blood Count 12.7 H Test 10/12/16 08:30 Bedside Glucose 102 Medications Medications Current Medications IV Flush (NS 10 ml) 10 ml PRN PRN IV IV PROTOCOL; Start 09/28/16 at 14:00 Ondansetron HCl (Zofran Inj) 4 mg Q6H PRN IV NAUSEA AND/OR VOMITING; Start at 15:00 Nitroglycerin (Nitroglycerin (Sl Tab) 0.4 Mg) 1 tab Q5M PRN SL CHEST PAIN; Start 09/28/16 at 15:00 Acetaminophen (Tylenol Liquid) 650 mg Q6H PRN PO PAIN LEVEL 1-3 OR FEVER; Start 09/28/16 at 15:00 Acetaminophen (Tylenol Tab) 650 mg Q6H PRN PO PAIN LEVEL 1-3 OR FEVER; Start at 15:00 Morphine Sulfate (morphine) 2 mg Q4H PRN IV PAIN LEVEL 7-10 Last administered on 09/29/16t 02:30; Admin Dose 2 MG; Start 09/28/16 at 15:00 Lorazepam (Ativan) 1 mg Q2H PRN IV ANXIETY; Start 09/28/16 at 15:00 Docusate Sodium (Colace) 100 mg Q12H PRN PO CONSTIPATION; Start 09/28/16 at 15: 00 Famotidine (Pepcid) 20 mg Q12 PO Last administered on 10/12/16 08:33; Admin Dose 20 MG; Start 09/28/16 at 21:00 Aspirin (Aspirin) 81 mg DAILY PO Last administered on 10/12/16 08:32; Admin Dose 81 MG; Start 09/29/16 at 09:00 Atorvastatin Calcium (Lipitor) 10 mg QHS PO Last administered on 10/11/16 21:00 ; Admin Dose 10 MG; Start 09/28/16 at 21:00 Furosemide (Lasix) 40 mg DAILY PO Last administered on 10/12/16 08:33; Admin Dose 40 MG; Start 09/29/16 at 09:00 Tiotropium [place] (Spiriva) 1 inh DAILY INH ; Start 09/28/16 at 16:00; Status Future Hold Mupirocin (Bactroban) 1 applic BID TOP Last administered on 10/12/16 08:33; Admin Dose 1 APPLIC; Start 09/30/16 at 09:00 Diagnostic Test (Pha) (Accucheck) 1 ea 02 XX ; Start 10/05/16 at 02:00 Miscellaneous Information 1 ea NOTE XX ; Start 10/04/16 at 09:00 Glucose (Glutose) 15 gm Q15M PRN PO DECREASED GLUCOSE; Start 10/04/16 at 09:00 Glucose (Glutose) 22.5 gm Q15M PRN PO DECREASED GLUCOSE; Start 10/04/16 at 09: 00 Dextrose (D50w Syringe) 25 ml Q15M PRN IV DECREASED GLUCOSE; Start 10/04/16 at 09:00 Dextrose (D50w Syringe) 50 ml Q15M PRN IV DECREASED GLUCOSE; Start 10/04/16 at 09:00 Glucagon (Glucagen) 1 mg Q15M PRN IM DECREASED GLUCOSE; Start 10/04/16 at 09:00 Glucose (Glutose) 15 gm Q15M PRN BUCCAL DECREASED GLUCOSE; Start 10/04/16 at 09 :00 Metoprolol Tartrate (Lopressor) 5 mg Q4 PRN IV HR>110 Hold SBP<100; Start 10/05 at 19:30 Metoprolol Succinate (Toprol Xl) 75 mg HS PO Last administered on 10/11/16 21: 01; Admin Dose 75 MG; Start 10/08/16 at 21:00 Metoprolol Succinate (Toprol Xl) 75 mg DAILY PO Last administered on 10/12/16 08:32; Admin Dose 75 MG; Start 10/09/16 at 09:00 Amiodarone HCl (Cordarone) 200 mg BID PO Last administered on 10/12/16 08:33; Admin Dose 200 MG; Start 10/09/16 at 21:00 Insulin Glargine (Lantus) 15 unit HS SC Last administered on 10/11/16 21:06; Admin Dose 15 UNIT; Start 10/10/16 at 21:00 Montelukast Sodium (Singulair) 10 mg HS PO Last administered on 10/11/16 21:01 ; Admin Dose 10 MG; Start 10/10/16 at 21:00 Theophylline (Benji-24) 300 mg QHS PO Last administered on 10/11/16 20:59; Admin Dose 300 MG; Start 10/10/16 at 21:00 Apixaban (Eliquis) 5 mg BID PO Last administered on 10/12/16 08:33; Admin Dose 5 MG; Start 10/10/16 at 21:00 Digoxin (Digoxin) 0.125 mg DAILY@13 PO ; Start 10/12/16 at 13:00 Lisinopril (Zestril) 20 mg DAILY PO Last administered on 10/12/16 08:33; Admin Dose 20 MG; Start 10/12/16 at 09:00 Prednisone (Prednisone) 15 mg DAILY PO Last administered on 10/12/16 08:32; Admin Dose 15 MG; Start 10/12/16 at 09:00 СВЕТЛАНА PADRON Oct 12, 2016 13:20
--- NOTE | 2016-10-12 16:52 | CONS ---
Date/Time of Note Date/Time of Note DATE: 10/12/16 TIME: 16:51 Assessment/Plan Assessment/Plan Chief Complaint/Hosp Course SUBJECTIVE: No acute changes. The patient is alert, looks comfortable, no fevers, no n/v/d. PHYSICAL EXAMINATION: GENERAL: Well-developed, ill-appearing, elderly man who is alert, in no distress. HEENT: Head atraumatic, normocephalic. Sclerae anicteric. Buccal mucosa dry. NECK: Supple, trachea midline. CHEST: Rise symmetrical. Breath sounds with bilateral scattered rhonchi. HEART: S1, S2. ABDOMEN: Soft. Bowel tones present. EXTREMITIES: No cyanosis. ASSESSMENT: 1. S/p acute on chronic hypoxemic respiratory failure secondary to chronic obstructive pulmonary disease exacerbation and healthcare-associated pneumonia. 2. S/p Urinary tract infection. 3. Congestive heart failure. 4. Ischemic cardiomyopathy with a history of automatic implantable cardioverter defibrillator. 5. History of coronary artery stenting. 6. Methicillin-resistant Staphylococcus aureus nares colonization. 7. A fib, s/p RVR PLAN: Stable off abx, will queen cx prn, card/pulmonary rec-s noted DW pt Problems: Consultation Date/Type/Reason Admit Date/Time Sep 28, 2016 at 14:41 Initial Consult Date 09/28/16 Type of Consultation: id Referring Provider: BAKARI MEZA MD Exam/Review of Systems Vital Signs Vitals Vital Signs Date Time Temp Pulse Resp B/P Pulse Ox O2 Delivery O2 Flow Rate FiO2 10/12/16 15:29 97.5 62 18 120/69 97 10/12/16 14:04 Nasal Cannula 3.0 Intake and Output 10/11/16 10/11/16 10/12/16 15:00 23:00 07:00 Intake Total 960 ml 600 ml Output Total 3 ml Balance 960 ml 597 ml Results Result Diagram: 10/12/16 0620 10/12/16 0620 Results 24 hrs Laboratory Tests Test 10/11/16 17:51 10/11/16 20:07 10/12/16 06:20 10/12/16 08:30 Bedside Glucose 137 211 102 Anion Gap 13 Basophils # 0.0 Basophils % 0.0 Blood Morphology Comment Blood Urea Nitrogen 29 H Calcium Level 9.3 Carbon Dioxide Level 40 H Chloride Level 91 L Creatinine 0.63 Eosinophils # 0.1 Eosinophils % 0.7 Erythrocyte Sedimentation Rate 20 Glucose Level 94 Hematocrit 32.2 L Hemoglobin 10.8 L Lymphocytes # 1.1 Lymphocytes % 9.0 L Mean Corpuscular Hemoglobin 32.9 Mean Corpuscular Hemoglobin Concent 33.4 Mean Corpuscular Volume 98.4 Mean Platelet Volume 6.8 L Monocytes # 0.8 Monocytes % 6.4 Neutrophils # 10.7 H Neutrophils % 83.9 H Nucleated Red Blood Cells # 0.0 Nucleated Red Blood Cells % 0.0 Platelet Count 267 # Potassium Level 3.7 Red Blood Count 3.27 L Red Cell Distribution Width 16.2 H Sodium Level 140 White Blood Count 12.7 H Test 10/12/16 12:23 Bedside Glucose 125 Medications Medications Current Medications IV Flush (NS 10 ml) 10 ml PRN PRN IV IV PROTOCOL; Start 09/28/16 at 14:00 Ondansetron HCl (Zofran Inj) 4 mg Q6H PRN IV NAUSEA AND/OR VOMITING; Start at 15:00 Nitroglycerin (Nitroglycerin (Sl Tab) 0.4 Mg) 1 tab Q5M PRN SL CHEST PAIN; Start 09/28/16 at 15:00 Acetaminophen (Tylenol Liquid) 650 mg Q6H PRN PO PAIN LEVEL 1-3 OR FEVER; Start 09/28/16 at 15:00 Acetaminophen (Tylenol Tab) 650 mg Q6H PRN PO PAIN LEVEL 1-3 OR FEVER; Start at 15:00 Morphine Sulfate (morphine) 2 mg Q4H PRN IV PAIN LEVEL 7-10 Last administered on 09/29/16 02:30; Admin Dose 2 MG; Start 09/28/16 at 15:00 Lorazepam (Ativan) 1 mg Q2H PRN IV ANXIETY; Start 09/28/16 at 15:00 Docusate Sodium (Colace) 100 mg Q12H PRN PO CONSTIPATION; Start 09/28/16 at 15: 00 Famotidine (Pepcid) 20 mg Q12 PO Last administered on 10/12/16 08:33; Admin Dose 20 MG; Start 09/28/16 at 21:00 Aspirin (Aspirin) 81 mg DAILY PO Last administered on 10/12/16 08:32; Admin Dose 81 MG; Start 09/29/16 at 09:00 Atorvastatin Calcium (Lipitor) 10 mg QHS PO Last administered on 10/11/16 21:00 ; Admin Dose 10 MG; Start 09/28/16 at 21:00 Furosemide (Lasix) 40 mg DAILY PO Last administered on 10/12/16 08:33; Admin Dose 40 MG; Start 09/29/16 at 09:00 Tiotropium [place] (Spiriva) 1 inh DAILY INH ; Start 09/28/16 at 16:00; Status Future Hold Mupirocin (Bactroban) 1 applic BID TOP Last administered on 10/12/16 08:33; Admin Dose 1 APPLIC; Start 09/30/16 at 09:00 Diagnostic Test (Pha) (Accucheck) 1 ea 02 XX ; Start 10/05/16 at 02:00 Miscellaneous Information 1 ea NOTE XX ; Start 10/04/16 at 09:00 Glucose (Glutose) 15 gm Q15M PRN PO DECREASED GLUCOSE; Start 10/04/16 at 09:00 Glucose (Glutose) 22.5 gm Q15M PRN PO DECREASED GLUCOSE; Start 10/04/16 at 09: 00 Dextrose (D50w Syringe) 25 ml Q15M PRN IV DECREASED GLUCOSE; Start 10/04/16 at 09:00 Dextrose (D50w Syringe) 50 ml Q15M PRN IV DECREASED GLUCOSE; Start 10/04/16 at 09:00 Glucagon (Glucagen) 1 mg Q15M PRN IM DECREASED GLUCOSE; Start 10/04/16 at 09:00 Glucose (Glutose) 15 gm Q15M PRN BUCCAL DECREASED GLUCOSE; Start 10/04/16 at 09 :00 Metoprolol Tartrate (Lopressor) 5 mg Q4 PRN IV HR>110 Hold SBP<100; Start 10/05 at 19:30 Metoprolol Succinate (Toprol Xl) 75 mg HS PO Last administered on 10/11/16 21: 01; Admin Dose 75 MG; Start 10/08/16 at 21:00 Metoprolol Succinate (Toprol Xl) 75 mg DAILY PO Last administered on 10/12/16 08:32; Admin Dose 75 MG; Start 10/09/16 at 09:00 Amiodarone HCl (Cordarone) 200 mg BID PO Last administered on 10/12/16 08:33; Admin Dose 200 MG; Start 10/09/16 at 21:00 Insulin Glargine (Lantus) 15 unit HS SC Last administered on 10/11/16 21:06; Admin Dose 15 UNIT; Start 10/10/16 at 21:00 Montelukast Sodium (Singulair) 10 mg HS PO Last administered on 10/11/16 21:01 ; Admin Dose 10 MG; Start 10/10/16 at 21:00 Theophylline (Benji-24) 300 mg QHS PO Last administered on 10/11/16 20:59; Admin Dose 300 MG; Start 10/10/16 at 21:00 Apixaban (Eliquis) 5 mg BID PO Last administered on 10/12/16 08:33; Admin Dose 5 MG; Start 10/10/16 at 21:00 Digoxin (Digoxin) 0.125 mg DAILY@13 PO ; Start 10/12/16 at 13:00 Lisinopril (Zestril) 20 mg DAILY PO Last administered on 10/12/16 08:33; Admin Dose 20 MG; Start 10/12/16 at 09:00 Prednisone (Prednisone) 15 mg DAILY PO Last administered on 10/12/16 08:32; Admin Dose 15 MG; Start 10/12/16 at 09:00 CODY BRANCH NP Oct 12, 2016 16:52
[2016-10-12] MEDS: predniSONE 2.5 MG TAB PO SCH (17:14)
[2016-10-12] MEDS: ATORVASTATIN 10 MG TAB PO SCH (21:55)
[2016-10-12] MEDS: MONTELUKAST 10 MG TAB PO SCH (21:55)
[2016-10-12] MEDS: INSULIN GLARGINE [LANtus] 3 ML PEN SC SCH (22:00)
[2016-10-12] MEDS: THEOPHYLLINE (SR) 300 MG CAP PO SCH (22:39)
[2016-10-13] MEDS: ALBUTEROL/IPRATROPIUM (NEB) 3 ML AMP HHN SCH ×4 (02:00→19:25)
[2016-10-13] MEDS: ACCU-CHEK XX SCH (02:00)
[2016-10-13] MEDS: INSULIN ASPART [NOVOLOG] 3 ML PEN SC SCH ×7 (07:50→21:00)
[2016-10-13 08:38] VITALS: BP 134/82; RESP 19
[2016-10-13] MEDS: predniSONE 5 MG TAB PO SCH (08:56)
[2016-10-13] MEDS: ASPIRIN 81 MG TAB PO SCH (08:56)
[2016-10-13] MEDS: AMIODARONE 200 MG TAB PO SCH ×2 (08:56→21:55)
[2016-10-13] MEDS: FUROSEMIDE 40 MG TAB PO SCH (08:57)
[2016-10-13] MEDS: FAMOTIDINE 20 MG TAB PO SCH ×2 (08:57→21:56)
[2016-10-13] MEDS: APIXABAN 5 MG TABLET PO SCH ×2 (08:57→21:56)
[2016-10-13] MEDS: MUPIROCIN 2% 22 GM OINT TOP SCH ×2 (08:58→22:02)
[2016-10-13] MEDS: METOPROLOL (XL) 25 MG TAB PO SCH ×2 (09:00→21:57)
[2016-10-13] MEDS: LISINOPRIL 5 MG TAB PO SCH (09:00)
[2016-10-13 09:38] VITALS: BP 112/80; PULSE 59
--- NOTE | 2016-10-13 11:50 | PN ---
Date/Time of Note Date/Time of Note DATE: 10/13/16 TIME: 11:49 Assessment/Plan VTE Prophylaxis VTE Prophylaxis Intervention: SCD's Lines/Catheters Urinary Cath still in place: No Assessment/Plan Assessment/Plan 1. Acute on chronic hypoxemic respiratory failure secondary to chronic obstructive pulmonary disease exacerbation and questionable healthcare- associated pneumonia. 2. S/p Urinary tract infection. 3. Congestive heart failure. 4. Ischemic cardiomyopathy with a history of automatic implantable cardioverter defibrillator. 5. History of coronary artery stenting. 6. Methicillin-resistant Staphylococcus aureus nares colonization. 7. A fib plan; off abx Breathing Rx awaiting placement Subjective 24 Hr Interval Summary Free Text/Dictation pt remained stable,downgraded to med/surge floor Exam/Review of Systems Vital Signs Vitals Vital Signs Date Time Temp Pulse Resp B/P Pulse Ox O2 Delivery O2 Flow Rate FiO2 10/13/16 09:38 59 112/80 10/13/16 08:45 Nasal Cannula 2.0 10/13/16 08:38 97.5 19 93 10/13/16 08:18 32 Intake and Output 10/12/16 10/12/16 10/13/16 15:00 23:00 07:00 Intake Total 850 ml 320 ml Output Total 4 ml Balance 846 ml 320 ml Exam NECK: Supple. No JVD noticed. RESPIRATORY: Bilaterally diminished breath sounds. Orally intubated and connected to a mechanical ventilator. CARDIAC: S1, S2 heard. Regular rate and rhythm. ABDOMEN: Soft, nontender and nondistended. Bowel sounds are positive in all 4 quadrants. EXT: plaster on lower extremity Results Result Diagram: 10/12/1620 10/12/16 0620 Results 24 hrs Laboratory Tests Test 10/12/16 12:23 10/12/16 17:12 10/12/16 21:33 10/13/16 07:38 Bedside Glucose 125 130 122 95 Test 10/13/16 11:42 Bedside Glucose 195 Medications Medications Current Medications IV Flush (NS 10 ml) 10 ml PRN PRN IV IV PROTOCOL; Start 09/28/16 at 14:00 Ondansetron HCl (Zofran Inj) 4 mg Q6H PRN IV NAUSEA AND/OR VOMITING; Start at 15:00 Nitroglycerin (Nitroglycerin (Sl Tab) 0.4 Mg) 1 tab Q5M PRN SL CHEST PAIN; Start 09/28/16 at 15:00 Acetaminophen (Tylenol Liquid) 650 mg Q6H PRN PO PAIN LEVEL 1-3 OR FEVER; Start 09/28/16 at 15:00 Acetaminophen (Tylenol Tab) 650 mg Q6H PRN PO PAIN LEVEL 1-3 OR FEVER; Start at 15:00 Morphine Sulfate (morphine) 2 mg Q4H PRN IV PAIN LEVEL 7-10 Last administered on 09/29/16 02:30; Admin Dose 2 MG; Start 09/28/16 at 15:00 Lorazepam (Ativan) 1 mg Q2H PRN IV ANXIETY; Start 09/28/16 at 15:00 Docusate Sodium (Colace) 100 mg Q12H PRN PO CONSTIPATION; Start 09/28/16 at 15: 00 Famotidine (Pepcid) 20 mg Q12 PO Last administered on 10/13/16 08:57; Admin Dose 20 MG; Start 09/28/16 at 21:00 Aspirin (Aspirin) 81 mg DAILY PO Last administered on 10/13/16 08:56; Admin Dose 81 MG; Start 09/29/16 at 09:00 Atorvastatin Calcium (Lipitor) 10 mg QHS PO Last administered on 10/12/16 21:55 ; Admin Dose 10 MG; Start 09/28/16 at 21:00 Furosemide (Lasix) 40 mg DAILY PO Last administered on 10/13/16 08:57; Admin Dose 40 MG; Start 09/29/16 at 09:00 Tiotropium [place] (Spiriva) 1 inh DAILY INH ; Start 09/28/16 at 16:00; Status Future Hold Mupirocin (Bactroban) 1 applic BID TOP Last administered on 10/13/16 08:58; Admin Dose 1 APPLIC; Start 09/30/16 at 09:00 Diagnostic Test (Pha) (Accucheck) 1 ea 02 XX ; Start 10/05/16 at 02:00 Miscellaneous Information 1 ea NOTE XX ; Start 10/04/16 at 09:00 Glucose (Glutose) 15 gm Q15M PRN PO DECREASED GLUCOSE; Start 10/04/16 at 09:00 Glucose (Glutose) 22.5 gm Q15M PRN PO DECREASED GLUCOSE; Start 10/04/16 at 09: 00 Dextrose (D50w Syringe) 25 ml Q15M PRN IV DECREASED GLUCOSE; Start 10/04/16 at 09:00 Dextrose (D50w Syringe) 50 ml Q15M PRN IV DECREASED GLUCOSE; Start 10/04/16 at 09:00 Glucagon (Glucagen) 1 mg Q15M PRN IM DECREASED GLUCOSE; Start 10/04/16 at 09:00 Glucose (Glutose) 15 gm Q15M PRN BUCCAL DECREASED GLUCOSE; Start 10/04/16 at 09 :00 Metoprolol Tartrate (Lopressor) 5 mg Q4 PRN IV HR>110 Hold SBP<100; Start 10/05 at 19:30 Metoprolol Succinate (Toprol Xl) 75 mg HS PO Last administered on 10/12/16 21: 59; Admin Dose 75 MG; Start 10/08/16 at 21:00 Metoprolol Succinate (Toprol Xl) 75 mg DAILY PO Last administered on 10/12/16 08:32; Admin Dose 75 MG; Start 10/09/16 at 09:00 Amiodarone HCl (Cordarone) 200 mg BID PO Last administered on 10/13/16 08:56; Admin Dose 200 MG; Start 10/09/16 at 21:00 Insulin Glargine (Lantus) 15 unit HS SC Last administered on 10/12/16 22:00; Admin Dose 15 UNIT; Start 10/10/16 at 21:00 Montelukast Sodium (Singulair) 10 mg HS PO Last administered on 10/12/16 21:55 ; Admin Dose 10 MG; Start 10/10/16 at 21:00 Theophylline (Benji-24) 300 mg QHS PO Last administered on 10/12/16 22:39; Admin Dose 300 MG; Start 10/10/16 at 21:00 Apixaban (Eliquis) 5 mg BID PO Last administered on 10/13/16 08:57; Admin Dose 5 MG; Start 10/10/16 at 21:00 Digoxin (Digoxin) 0.125 mg DAILY@13 PO ; Start 10/12/16 at 13:00 Lisinopril (Zestril) 20 mg DAILY PO Last administered on 10/12/16 08:33; Admin Dose 20 MG; Start 10/12/16 at 09:00 Prednisone (Prednisone) 15 mg DAILY PO Last administered on 10/13/16t 08:56; Admin Dose 15 MG; Start 10/12/16 at 09:00 GIULIA KOO MD Oct 13, 2016 11:50
--- NOTE | 2016-10-13 12:38 | CONS ---
Date/Time of Note Date/Time of Note DATE: 10/13/16 TIME: 12:36 Assessment/Plan Assessment/Plan Additional Assessment/Plan 1. Atrial fibrillation with rapid ventricular response.-improved HR and now in SR - better 2. Congestive heart failure, systolic, acute on chronic - improved fluid status 3. History of cardiomyopathy with decreased left ventricular ejection fraction 20% to 25% per chart biopsy 4. Shortness of breath- beter now 5. Status post hypercapnic respiratory failure, status post extubation. 6. Chronic obstructive pulmonary disease- improved with rx 7. Hypertension. 8. Dyslipidemia. 9. History of automatic implantable cardioverter-defibrillator with possible discharge.-s/p interrogation with ICD shock for uncontrolled rapid AF. Now rate controlled. 10. Pneumonia. 11.Positive troponin-minimal with no sig uptrend Consultation Date/Type/Reason Admit Date/Time Sep 28, 2016 at 14:41 Initial Consult Date 09/28/16 Type of Consultation: id Referring Provider: BAKARI MEZA MD 24 HR Interval Summary Free Text/Dictation No acute change - BP in good range - no new ICD shocks. ROS: No fever, no chills, no nausea, no vomiting, no diarrhea/constipation No recent weight changes No chest pain, no PND, no orthopnea No dizziness, blurred vision No thirst, no heat or cold intolerance Exam/Review of Systems Vital Signs Vitals Vital Signs Date Time Temp Pulse Resp B/P Pulse Ox O2 Delivery O2 Flow Rate FiO2 10/13/16 09:38 59 112/80 10/13/16 08:45 Nasal Cannula 2.0 10/13/16 08:38 97.5 19 93 10/13/16 08:18 32 Intake and Output 10/12/16 10/12/16 10/13/16 15:00 23:00 07:00 Intake Total 850 ml 320 ml Output Total 4 ml Balance 846 ml 320 ml Exam General: WN/WD/NAD, AOx 3 HEENT: Unicetric/atraumatic/EOMI (follows commands) NECK: JVD elevated, no thyromegaly Lymph: no lymphadenopathy HEART: regular with no S3, II/ systolic murmur at apex LUNGS: Coarse sounds ABD: soft, NT, ND, +BS : Intact Neuro: non focal SKIN: chronic changes EXT: trace edema Results Result Diagram: 10/12/16 0620 10/12/16 0620 Results 24 hrs Laboratory Tests Test 10/12/16 17:12 10/12/16 21:33 10/13/16 07:38 10/13/16 11:42 Bedside Glucose 130 122 95 195 Medications Medications Current Medications IV Flush (NS 10 ml) 10 ml PRN PRN IV IV PROTOCOL; Start 09/28/16 at 14:00 Ondansetron HCl (Zofran Inj) 4 mg Q6H PRN IV NAUSEA AND/OR VOMITING; Start at 15:00 Nitroglycerin (Nitroglycerin (Sl Tab) 0.4 Mg) 1 tab Q5M PRN SL CHEST PAIN; Start 09/28/16 at 15:00 Acetaminophen (Tylenol Liquid) 650 mg Q6H PRN PO PAIN LEVEL 1-3 OR FEVER; Start 09/28/16 at 15:00 Acetaminophen (Tylenol Tab) 650 mg Q6H PRN PO PAIN LEVEL 1-3 OR FEVER; Start at 15:00 Morphine Sulfate (morphine) 2 mg Q4H PRN IV PAIN LEVEL 7-10 Last administered on 09/29/16 02:30; Admin Dose 2 MG; Start 09/28/16 at 15:00 Lorazepam (Ativan) 1 mg Q2H PRN IV ANXIETY; Start 09/28/16 at 15:00 Docusate Sodium (Colace) 100 mg Q12H PRN PO CONSTIPATION; Start 09/28/16 at 15: 00 Famotidine (Pepcid) 20 mg Q12 PO Last administered on 10/13/16 08:57; Admin Dose 20 MG; Start 09/28/16 at 21:00 Aspirin (Aspirin) 81 mg DAILY PO Last administered on 10/13/16 08:56; Admin Dose 81 MG; Start 09/29/16 at 09:00 Atorvastatin Calcium (Lipitor) 10 mg QHS PO Last administered on 10/12/16 21:55 ; Admin Dose 10 MG; Start 09/28/16 at 21:00 Furosemide (Lasix) 40 mg DAILY PO Last administered on 10/13/16 08:57; Admin Dose 40 MG; Start 09/29/16 at 09:00 Tiotropium [place] (Spiriva) 1 inh DAILY INH ; Start 09/28/16 at 16:00; Status Future Hold Mupirocin (Bactroban) 1 applic BID TOP Last administered on 10/13/16 08:58; Admin Dose 1 APPLIC; Start 09/30/16 at 09:00 Diagnostic Test (Pha) (Accucheck) 1 ea 02 XX ; Start 10/05/16 at 02:00 Miscellaneous Information 1 ea NOTE XX ; Start 10/04/16 at 09:00 Glucose (Glutose) 15 gm Q15M PRN PO DECREASED GLUCOSE; Start 10/04/16 at 09:00 Glucose (Glutose) 22.5 gm Q15M PRN PO DECREASED GLUCOSE; Start 10/04/16 at 09: 00 Dextrose (D50w Syringe) 25 ml Q15M PRN IV DECREASED GLUCOSE; Start 10/04/16 at 09:00 Dextrose (D50w Syringe) 50 ml Q15M PRN IV DECREASED GLUCOSE; Start 10/04/16 at 09:00 Glucagon (Glucagen) 1 mg Q15M PRN IM DECREASED GLUCOSE; Start 10/04/16 at 09:00 Glucose (Glutose) 15 gm Q15M PRN BUCCAL DECREASED GLUCOSE; Start 10/04/16 at 09 :00 Metoprolol Tartrate (Lopressor) 5 mg Q4 PRN IV HR>110 Hold SBP<100; Start 10/05 at 19:30 Metoprolol Succinate (Toprol Xl) 75 mg HS PO Last administered on 10/12/16 21: 59; Admin Dose 75 MG; Start 10/08/16 at 21:00 Metoprolol Succinate (Toprol Xl) 75 mg DAILY PO Last administered on 10/12/16 08:32; Admin Dose 75 MG; Start 10/09/16 at 09:00 Amiodarone HCl (Cordarone) 200 mg BID PO Last administered on 10/13/16 08:56; Admin Dose 200 MG; Start 10/09/16 at 21:00 Insulin Glargine (Lantus) 15 unit HS SC Last administered on 10/12/16 22:00; Admin Dose 15 UNIT; Start 10/10/16 at 21:00 Montelukast Sodium (Singulair) 10 mg HS PO Last administered on 10/12/16 21:55 ; Admin Dose 10 MG; Start 10/10/16 at 21:00 Theophylline (Benji-24) 300 mg QHS PO Last administered on 10/12/16 22:39; Admin Dose 300 MG; Start 10/10/16 at 21:00 Apixaban (Eliquis) 5 mg BID PO Last administered on 10/13/16 08:57; Admin Dose 5 MG; Start 10/10/16 at 21:00 Digoxin (Digoxin) 0.125 mg DAILY@13 PO ; Start 10/12/16 at 13:00 Lisinopril (Zestril) 20 mg DAILY PO Last administered on 10/12/16 08:33; Admin Dose 20 MG; Start 10/12/16 at 09:00 Prednisone (Prednisone) 15 mg DAILY PO Last administered on 10/13/16 08:56; Admin Dose 15 MG; Start 10/12/16 at 09:00 RAYSHAWN DUNN MD Oct 13, 2016 12:38
[2016-10-13] MEDS: DIGOXIN 0.125 MG TAB PO SCH (13:00)
[2016-10-13 13:24] VITALS: BP 128/68; PULSE 55; RESP 16
--- NOTE | 2016-10-13 13:39 | PN ---
DATE: I had a conversation today with case management, Mami, concerning patient and my and Dr. Kaur's co ncern that this patient does not have capacity [facility] She will follow up and make a referral to the appropriate organization that will hopefully inter vene and assist with this patient's ongoing health care. Dictated By: ARJUN ROJAS MD, LP/NANDO Conf#: [id number] DID#: [id number]
--- NOTE | 2016-10-13 15:31 | PN ---
DATE: 10/13/2016 PALLIATIVE CARE PROGRESS NOTE I have had a conversation with case management today and expressed our concerns about whether evans ching is competent to make his decisions in the future. He has a history of recurrent hospitalizations for congestive heart failure, COPD. In speaking to his mother, the patient is noncompliant with his regimen. 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 Ba sed upon that and concerns from other physicians, referral has been made and from my understanding, case management will refer to also the appropriate organization which will evaluate the patient for competency. Dictated By: ARJUN ROJAS MD, LP/NANDO Conf#: [id number] DID#: [id number]
[2016-10-13] MEDS: predniSONE 2.5 MG TAB PO SCH (17:29)
[2016-10-13 20:42] VITALS: BP 137/86; RESP 21
[2016-10-13] MEDS: MONTELUKAST 10 MG TAB PO SCH (21:56)
[2016-10-13] MEDS: THEOPHYLLINE (SR) 300 MG CAP PO SCH (21:56)
[2016-10-13] MEDS: ATORVASTATIN 10 MG TAB PO SCH (21:56)
[2016-10-13] MEDS: INSULIN GLARGINE [LANtus] 3 ML PEN SC SCH (21:59)
--- NOTE | 2016-10-13 23:07 | CONS ---
Date/Time of Note Date/Time of Note DATE: 10/13/16 TIME: 13:06 Assessment/Plan Assessment/Plan Chief Complaint/Hosp Course SUBJECTIVE: No acute changes. The patient is alert, sitting up in a chair, looks comfortable, no fevers, no n/v/d. PHYSICAL EXAMINATION: GENERAL: Well-developed, ill-appearing, elderly man who is alert, in no distress. HEENT: Head atraumatic, normocephalic. Sclerae anicteric. Buccal mucosa dry. NECK: Supple, trachea midline. CHEST: Rise symmetrical. Breath sounds with bilateral scattered rhonchi. HEART: S1, S2. ABDOMEN: Soft. Bowel tones present. EXTREMITIES: No cyanosis. ASSESSMENT: 1. S/p acute on chronic hypoxemic respiratory failure secondary to chronic obstructive pulmonary disease exacerbation and healthcare-associated pneumonia. 2. S/p urinary tract infection. 3. Congestive heart failure. 4. Ischemic cardiomyopathy with a history of automatic implantable cardioverter defibrillator. 5. History of coronary artery stenting. 6. Methicillin-resistant Staphylococcus aureus nares colonization. 7. A fib, s/p RVR PLAN: Remains stable off abx, will queen cx prn, f/u card/pulmonary rec-s DW pt Problems: Consultation Date/Type/Reason Admit Date/Time Sep 28, 2016 at 14:41 Initial Consult Date 09/28/16 Type of Consultation: id Referring Provider: BAKARI MEZA MD Exam/Review of Systems Vital Signs Vitals Vital Signs Date Time Temp Pulse Resp B/P Pulse Ox O2 Delivery O2 Flow Rate FiO2 10/13/16 20:42 98.6 66 21 137/86 92 10/13/16 19:25 3.0 10/13/16 19:25 Nasal Cannula 10/13/16 13:30 32 Intake and Output 10/12/16 10/12/16 10/13/16 15:00 23:00 07:00 Intake Total 850 ml 320 ml Output Total 4 ml Balance 846 ml 320 ml Results Result Diagram: 10/12/16 0620 10/12/16 0620 Results 24 hrs Laboratory Tests Test 10/13/16 07:38 10/13/16 11:42 10/13/16 17:06 10/13/16 21:53 Bedside Glucose 95 195 172 111 Medications Medications Current Medications IV Flush (NS 10 ml) 10 ml PRN PRN IV IV PROTOCOL; Start 09/28/16 at 14:00 Ondansetron HCl (Zofran Inj) 4 mg Q6H PRN IV NAUSEA AND/OR VOMITING; Start at 15:00 Nitroglycerin (Nitroglycerin (Sl Tab) 0.4 Mg) 1 tab Q5M PRN SL CHEST PAIN; Start 09/28/16 at 15:00 Acetaminophen (Tylenol Liquid) 650 mg Q6H PRN PO PAIN LEVEL 1-3 OR FEVER; Start 09/28/16 at 15:00 Acetaminophen (Tylenol Tab) 650 mg Q6H PRN PO PAIN LEVEL 1-3 OR FEVER; Start at 15:00 Morphine Sulfate (morphine) 2 mg Q4H PRN IV PAIN LEVEL 7-10 Last administered on 09/29/16 02:30; Admin Dose 2 MG; Start 09/28/16 at 15:00 Lorazepam (Ativan) 1 mg Q2H PRN IV ANXIETY; Start 09/28/16 at 15:00 Docusate Sodium (Colace) 100 mg Q12H PRN PO CONSTIPATION; Start 09/28/16 at 15: 00 Famotidine (Pepcid) 20 mg Q12 PO Last administered on 10/13/16 21:56; Admin Dose 20 MG; Start 09/28/16 at 21:00 Aspirin (Aspirin) 81 mg DAILY PO Last administered on 10/13/16 08:56; Admin Dose 81 MG; Start 09/29/16 at 09:00 Atorvastatin Calcium (Lipitor) 10 mg QHS PO Last administered on 10/13/16 21:56 ; Admin Dose 10 MG; Start 09/28/16 at 21:00 Furosemide (Lasix) 40 mg DAILY PO Last administered on 10/13/16 08:57; Admin Dose 40 MG; Start 09/29/16 at 09:00 Tiotropium [place] (Spiriva) 1 inh DAILY INH ; Start 09/28/16 at 16:00; Status Future Hold Mupirocin (Bactroban) 1 applic BID TOP Last administered on 10/13/16 22:02; Admin Dose 1 APPLIC; Start 09/30/16 at 09:00 Diagnostic Test (Pha) (Accucheck) 1 ea 02 XX ; Start 10/05/16 at 02:00 Miscellaneous Information 1 ea NOTE XX ; Start 10/04/16 at 09:00 Glucose (Glutose) 15 gm Q15M PRN PO DECREASED GLUCOSE; Start 10/04/16 at 09:00 Glucose (Glutose) 22.5 gm Q15M PRN PO DECREASED GLUCOSE; Start 10/04/16 at 09: 00 Dextrose (D50w Syringe) 25 ml Q15M PRN IV DECREASED GLUCOSE; Start 10/04/16 at 09:00 Dextrose (D50w Syringe) 50 ml Q15M PRN IV DECREASED GLUCOSE; Start 10/04/16 at 09:00 Glucagon (Glucagen) 1 mg Q15M PRN IM DECREASED GLUCOSE; Start 10/04/16 at 09:00 Glucose (Glutose) 15 gm Q15M PRN BUCCAL DECREASED GLUCOSE; Start 10/04/16 at 09 :00 Metoprolol Tartrate (Lopressor) 5 mg Q4 PRN IV HR>110 Hold SBP<100; Start 10/05 at 19:30 Metoprolol Succinate (Toprol Xl) 75 mg HS PO Last administered on 10/13/16 21: 57; Admin Dose 75 MG; Start 10/08/16 at 21:00 Metoprolol Succinate (Toprol Xl) 75 mg DAILY PO Last administered on 10/12/16 08:32; Admin Dose 75 MG; Start 10/09/16 at 09:00 Amiodarone HCl (Cordarone) 200 mg BID PO Last administered on 10/13/16 21:55; Admin Dose 200 MG; Start 10/09/16 at 21:00 Insulin Glargine (Lantus) 15 unit HS SC Last administered on 10/13/16 21:59; Admin Dose 15 UNIT; Start 10/10/16 at 21:00 Montelukast Sodium (Singulair) 10 mg HS PO Last administered on 10/13/16 21:56 ; Admin Dose 10 MG; Start 10/10/16 at 21:00 Theophylline (Benji-24) 300 mg QHS PO Last administered on 10/13/16 21:56; Admin Dose 300 MG; Start 10/10/16 at 21:00 Apixaban (Eliquis) 5 mg BID PO Last administered on 10/13/16 21:56; Admin Dose 5 MG; Start 10/10/16 at 21:00 Digoxin (Digoxin) 0.125 mg DAILY@13 PO ; Start 10/12/16 at 13:00 Lisinopril (Zestril) 20 mg DAILY PO Last administered on 10/12/16 08:33; Admin Dose 20 MG; Start 10/12/16 at 09:00 Prednisone (Prednisone) 15 mg DAILY PO Last administered on 10/13/16 08:56; Admin Dose 15 MG; Start 10/12/16 at 09:00 CODY BRANCH NP Oct 13, 2016 23:07
[2016-10-14] MEDS: ACCU-CHEK XX SCH (02:00)
[2016-10-14] MEDS: ALBUTEROL/IPRATROPIUM (NEB) 3 ML AMP HHN SCH ×4 (02:04→19:46)
[2016-10-14 07:41] VITALS: BP 117/64; RESP 20
[2016-10-14] MEDS: INSULIN ASPART [NOVOLOG] 3 ML PEN SC SCH ×7 (08:00→20:57)
[2016-10-14] MEDS: AMIODARONE 200 MG TAB PO SCH ×2 (08:25→20:55)
[2016-10-14] MEDS: predniSONE 5 MG TAB PO SCH (08:25)
[2016-10-14] MEDS: LISINOPRIL 5 MG TAB PO SCH (08:25)
[2016-10-14] MEDS: ASPIRIN 81 MG TAB PO SCH (08:25)
[2016-10-14] MEDS: FUROSEMIDE 40 MG TAB PO SCH (08:25)
[2016-10-14] MEDS: FAMOTIDINE 20 MG TAB PO SCH ×2 (08:26→20:56)
[2016-10-14] MEDS: APIXABAN 5 MG TABLET PO SCH ×2 (08:26→20:56)
[2016-10-14] MEDS: METOPROLOL (XL) 25 MG TAB PO SCH ×2 (09:00→20:55)
[2016-10-14] MEDS: MUPIROCIN 2% 22 GM OINT TOP SCH ×2 (09:00→20:58)
[2016-10-14] MEDS: DIGOXIN 0.125 MG TAB PO SCH (12:13)
--- NOTE | 2016-10-14 12:51 | PN ---
Date/Time of Note Date/Time of Note DATE: 10/14/16 TIME: 12:50 Assessment/Plan VTE Prophylaxis VTE Prophylaxis Intervention: SCD's Lines/Catheters Urinary Cath still in place: No Assessment/Plan Assessment/Plan 1. Acute on chronic hypoxemic respiratory failure secondary to chronic obstructive pulmonary disease exacerbation and questionable healthcare- associated pneumonia. 2. S/p Urinary tract infection. 3. Congestive heart failure. 4. Ischemic cardiomyopathy with a history of automatic implantable cardioverter defibrillator. 5. History of coronary artery stenting. 6. Methicillin-resistant Staphylococcus aureus nares colonization. 7. A fib plan; off abx Breathing Rx awaiting placement Subjective 24 Hr Interval Summary Free Text/Dictation pt stable, afebriel, BP stable Exam/Review of Systems Vital Signs Vitals Vital Signs Date Time Temp Pulse Resp B/P Pulse Ox O2 Delivery O2 Flow Rate FiO2 10/14/16 08:34 Nasal Cannula 2.0 10/14/16 07:41 98.8 68 20 117/64 96 10/13/16 13:30 32 Intake and Output 10/13/16 10/13/16 10/14/16 15:00 23:00 07:00 Intake Total 990 ml 1000 ml Output Total 650 ml Balance 340 ml 1000 ml Exam NECK: Supple. No JVD noticed. RESPIRATORY: Bilaterally diminished breath sounds. Orally intubated and connected to a mechanical ventilator. CARDIAC: S1, S2 heard. Regular rate and rhythm. ABDOMEN: Soft, nontender and nondistended. Bowel sounds are positive in all 4 quadrants. EXT: plaster on lower extremity Results Result Diagram: 10/12/16 0620 10/12/16 0620 Results 24 hrs Laboratory Tests Test 10/13/16 17:06 10/13/16 21:53 10/14/16 08:13 10/14/16 12:10 Bedside Glucose 172 111 94 107 Medications Medications Current Medications IV Flush (NS 10 ml) 10 ml PRN PRN IV IV PROTOCOL; Start 09/28/16 at 14:00 Ondansetron HCl (Zofran Inj) 4 mg Q6H PRN IV NAUSEA AND/OR VOMITING; Start at 15:00 Nitroglycerin (Nitroglycerin (Sl Tab) 0.4 Mg) 1 tab Q5M PRN SL CHEST PAIN; Start 09/28/16 at 15:00 Acetaminophen (Tylenol Liquid) 650 mg Q6H PRN PO PAIN LEVEL 1-3 OR FEVER; Start 09/28/16 at 15:00 Acetaminophen (Tylenol Tab) 650 mg Q6H PRN PO PAIN LEVEL 1-3 OR FEVER; Start at 15:00 Morphine Sulfate (morphine) 2 mg Q4H PRN IV PAIN LEVEL 7-10 Last administered on 09/29/16 02:30; Admin Dose 2 MG; Start 09/28/16 at 15:00 Lorazepam (Ativan) 1 mg Q2H PRN IV ANXIETY; Start 09/28/16 at 15:00 Docusate Sodium (Colace) 100 mg Q12H PRN PO CONSTIPATION; Start 09/28/16 at 15: 00 Famotidine (Pepcid) 20 mg Q12 PO Last administered on 10/14/16 08:26; Admin Dose 20 MG; Start 09/28/16 at 21:00 Aspirin (Aspirin) 81 mg DAILY PO Last administered on 10/14/16 08:25; Admin Dose 81 MG; Start 09/29/16 at 09:00 Atorvastatin Calcium (Lipitor) 10 mg QHS PO Last administered on 10/13/16 21:56 ; Admin Dose 10 MG; Start 09/28/16 at 21:00 Furosemide (Lasix) 40 mg DAILY PO Last administered on 10/14/16 08:25; Admin Dose 40 MG; Start 09/29/16 at 09:00 Tiotropium [place] (Spiriva) 1 inh DAILY INH ; Start 09/28/16 at 16:00; Status Future Hold Mupirocin (Bactroban) 1 applic BID TOP Last administered on 10/14/16 09:00; Admin Dose 1 APPLIC; Start 09/30/16 at 09:00 Diagnostic Test (Pha) (Accucheck) 1 ea 02 XX ; Start 10/05/16 at 02:00 Miscellaneous Information 1 ea NOTE XX ; Start 10/04/16 at 09:00 Glucose (Glutose) 15 gm Q15M PRN PO DECREASED GLUCOSE; Start 10/04/16 at 09:00 Glucose (Glutose) 22.5 gm Q15M PRN PO DECREASED GLUCOSE; Start 10/04/16 at 09: 00 Dextrose (D50w Syringe) 25 ml Q15M PRN IV DECREASED GLUCOSE; Start 10/04/16 at 09:00 Dextrose (D50w Syringe) 50 ml Q15M PRN IV DECREASED GLUCOSE; Start 10/04/16 at 09:00 Glucagon (Glucagen) 1 mg Q15M PRN IM DECREASED GLUCOSE; Start 10/04/16 at 09:00 Glucose (Glutose) 15 gm Q15M PRN BUCCAL DECREASED GLUCOSE; Start 10/04/16 at 09 :00 Metoprolol Tartrate (Lopressor) 5 mg Q4 PRN IV HR>110 Hold SBP<100; Start 10/05 at 19:30 Metoprolol Succinate (Toprol Xl) 75 mg HS PO Last administered on 10/13/16 21: 57; Admin Dose 75 MG; Start 10/08/16 at 21:00 Metoprolol Succinate (Toprol Xl) 75 mg DAILY PO Last administered on 10/12/16 08:32; Admin Dose 75 MG; Start 10/09/16 at 09:00 Amiodarone HCl (Cordarone) 200 mg BID PO Last administered on 10/14/16 08:25; Admin Dose 200 MG; Start 10/09/16 at 21:00 Insulin Glargine (Lantus) 15 unit HS SC Last administered on 10/13/16 21:59; Admin Dose 15 UNIT; Start 10/10/16 at 21:00 Montelukast Sodium (Singulair) 10 mg HS PO Last administered on 10/13/16 21:56 ; Admin Dose 10 MG; Start 10/10/16 at 21:00 Theophylline (Benji-24) 300 mg QHS PO Last administered on 10/13/16 21:56; Admin Dose 300 MG; Start 10/10/16 at 21:00 Apixaban (Eliquis) 5 mg BID PO Last administered on 10/14/16 08:26; Admin Dose 5 MG; Start 10/10/16 at 21:00 Digoxin (Digoxin) 0.125 mg DAILY@13 PO Last administered on 10/14/16 12:13; Admin Dose 0.125 MG; Start 10/12/16 at 13:00 Lisinopril (Zestril) 20 mg DAILY PO Last administered on 10/14/16 08:25; Admin Dose 20 MG; Start 10/12/16 at 09:00 Prednisone (Prednisone) 15 mg DAILY PO Last administered on 10/14/16t 08:25; Admin Dose 15 MG; Start 10/12/16 at 09:00 GIULIA KOO MD Oct 14, 2016 12:51
[2016-10-14] MEDS: ALBUTEROL/IPRATROPIUM (NEB) 3 ML AMP HHN PRN (14:21)
--- NOTE | 2016-10-14 14:51 | CONS ---
Date/Time of Note Date/Time of Note DATE: 10/14/16 TIME: 14:48 Assessment/Plan Assessment/Plan Chief Complaint/Hosp Course IMPRESSION: 1. Atrial fibrillation with rapid ventricular response.-improved HR and now in SR 2. Congestive heart failure, systolic, acute on chronic. 3. History of cardiomyopathy with decreased left ventricular ejection fraction 20% to 25% per chart biopsy. 4. Shortness of breath. 5. Status post hypercapnic respiratory failure, status post extubation. 6. Chronic obstructive pulmonary disease. 7. Hypertension. 8. Dyslipidemia. 9. History of automatic implantable cardioverter-defibrillator with possible discharge.-s/p interrogation with ICD shock for uncontrolled rapid AF. 10. Pneumonia. 11.Positive troponin-minimal with no sig uptrend Recc -Tele -serial ecg's -Continue asa/E;iquis -Continue BB/digoxin -Continue ACEI -Continue statin -Continue amiodarone BID for now -Follow volume status -check ecg to document current rhythm Problems: Consultation Date/Type/Reason Admit Date/Time Sep 28, 2016 at 14:41 Initial Consult Date 09/28/16 Type of Consultation: Cardiology Reason for Consultation SVT/aicd discharge Referring Provider: BAKARI MEZA MD Exam/Review of Systems Vital Signs Vitals Vital Signs Date Time Temp Pulse Resp B/P Pulse Ox O2 Delivery O2 Flow Rate FiO2 10/14/16 14:21 68 18 97 Nasal Cannula 3.0 10/14/16 07:41 98.8 117/64 10/13/16 13:30 32 Intake and Output 10/13/16 10/13/16 10/14/16 15:00 23:00 07:00 Intake Total 990 ml 1000 ml Output Total 650 ml Balance 340 ml 1000 ml Exam Review of Systems: CONSTITUTIONAL: No fevers, chills. PULMONARY: mild sob CARDIOVASCULAR: No chest pain/palpitations GASTROINTESTINAL: No nausea/vomiting. GENITOURINARY: No hematuria/dysuria. MUSCULOSKELETAL: No myagias/arthalgias. PSYCHIATRIC: The patient denies depression. NEUROLOGIC: No weakness Constitutional: alert Psych: no complaints Head: normocephalic ENMT: mucosa pink and moist Neck: jvd Respiratory: diminished breath sounds (at bases/B) Cardiovascular: irregular rhythm Gastrointestinal: non-tender, soft Musculoskeletal: muscle tone (normal) Extremities: edema (none) Neurological: other (No focal deficits) Results Result Diagram: 10/12/16 0620 10/12/16 0620 Results 24 hrs Laboratory Tests Test 10/13/16 17:06 10/13/16 21:53 10/14/16 08:13 10/14/16 12:10 Bedside Glucose 172 111 94 107 Medications Medications Current Medications IV Flush (NS 10 ml) 10 ml PRN PRN IV IV PROTOCOL; Start 09/28/16 at 14:00 Ondansetron HCl (Zofran Inj) 4 mg Q6H PRN IV NAUSEA AND/OR VOMITING; Start at 15:00 Nitroglycerin (Nitroglycerin (Sl Tab) 0.4 Mg) 1 tab Q5M PRN SL CHEST PAIN; Start 09/28/16 at 15:00 Acetaminophen (Tylenol Liquid) 650 mg Q6H PRN PO PAIN LEVEL 1-3 OR FEVER; Start 09/28/16 at 15:00 Acetaminophen (Tylenol Tab) 650 mg Q6H PRN PO PAIN LEVEL 1-3 OR FEVER; Start at 15:00 Morphine Sulfate (morphine) 2 mg Q4H PRN IV PAIN LEVEL 7-10 Last administered on 09/29/16 02:30; Admin Dose 2 MG; Start 09/28/16 at 15:00 Lorazepam (Ativan) 1 mg Q2H PRN IV ANXIETY; Start 09/28/16 at 15:00 Docusate Sodium (Colace) 100 mg Q12H PRN PO CONSTIPATION; Start 09/28/16 at 15: 00 Famotidine (Pepcid) 20 mg Q12 PO Last administered on 10/14/16 08:26; Admin Dose 20 MG; Start 09/28/16 at 21:00 Aspirin (Aspirin) 81 mg DAILY PO Last administered on 10/14/16 08:25; Admin Dose 81 MG; Start 09/29/16 at 09:00 Atorvastatin Calcium (Lipitor) 10 mg QHS PO Last administered on 10/13/16 21:56 ; Admin Dose 10 MG; Start 09/28/16 at 21:00 Furosemide (Lasix) 40 mg DAILY PO Last administered on 10/14/16 08:25; Admin Dose 40 MG; Start 09/29/16 at 09:00 Tiotropium [place] (Spiriva) 1 inh DAILY INH ; Start 09/28/16 at 16:00; Status Future Hold Mupirocin (Bactroban) 1 applic BID TOP Last administered on 10/14/16 09:00; Admin Dose 1 APPLIC; Start 09/30/16 at 09:00 Diagnostic Test (Pha) (Accucheck) 1 ea 02 XX ; Start 10/05/16 at 02:00 Miscellaneous Information 1 ea NOTE XX ; Start 10/04/16 at 09:00 Glucose (Glutose) 15 gm Q15M PRN PO DECREASED GLUCOSE; Start 10/04/16 at 09:00 Glucose (Glutose) 22.5 gm Q15M PRN PO DECREASED GLUCOSE; Start 10/04/16 at 09: 00 Dextrose (D50w Syringe) 25 ml Q15M PRN IV DECREASED GLUCOSE; Start 10/04/16 at 09:00 Dextrose (D50w Syringe) 50 ml Q15M PRN IV DECREASED GLUCOSE; Start 10/04/16 at 09:00 Glucagon (Glucagen) 1 mg Q15M PRN IM DECREASED GLUCOSE; Start 10/04/16 at 09:00 Glucose (Glutose) 15 gm Q15M PRN BUCCAL DECREASED GLUCOSE; Start 10/04/16 at 09 :00 Metoprolol Tartrate (Lopressor) 5 mg Q4 PRN IV HR>110 Hold SBP<100; Start 10/05 at 19:30 Metoprolol Succinate (Toprol Xl) 75 mg HS PO Last administered on 10/13/16 21: 57; Admin Dose 75 MG; Start 10/08/16 at 21:00 Metoprolol Succinate (Toprol Xl) 75 mg DAILY PO Last administered on 10/12/16 08:32; Admin Dose 75 MG; Start 10/09/16 at 09:00 Amiodarone HCl (Cordarone) 200 mg BID PO Last administered on 10/14/16 08:25; Admin Dose 200 MG; Start 10/09/16 at 21:00 Insulin Glargine (Lantus) 15 unit HS SC Last administered on 10/13/16 21:59; Admin Dose 15 UNIT; Start 10/10/16 at 21:00 Montelukast Sodium (Singulair) 10 mg HS PO Last administered on 10/13/16 21:56 ; Admin Dose 10 MG; Start 10/10/16 at 21:00 Theophylline (Benji-24) 300 mg QHS PO Last administered on 10/13/16 21:56; Admin Dose 300 MG; Start 10/10/16 at 21:00 Apixaban (Eliquis) 5 mg BID PO Last administered on 10/14/16 08:26; Admin Dose 5 MG; Start 10/10/16 at 21:00 Digoxin (Digoxin) 0.125 mg DAILY@13 PO Last administered on 10/14/16 12:13; Admin Dose 0.125 MG; Start 10/12/16 at 13:00 Lisinopril (Zestril) 20 mg DAILY PO Last administered on 10/14/16 08:25; Admin Dose 20 MG; Start 10/12/16 at 09:00 Prednisone (Prednisone) 15 mg DAILY PO Last administered on 10/14/16 08:25; Admin Dose 15 MG; Start 10/12/16 at 09:00 СВЕТЛАНА PADRON Oct 14, 2016 14:51
--- NOTE | 2016-10-14 15:59 | CONS ---
Date/Time of Note Date/Time of Note DATE: 10/14/16 TIME: 15:58 Assessment/Plan Assessment/Plan Chief Complaint/Hosp Course SUBJECTIVE: No acute changes. The patient is alert, sitting up in a chair, looks comfortable, no fevers, no n/v/d. PHYSICAL EXAMINATION: GENERAL: Well-developed, ill-appearing, elderly man who is alert, in no distress. HEENT: Head atraumatic, normocephalic. Sclerae anicteric. Buccal mucosa dry. NECK: Supple, trachea midline. CHEST: Rise symmetrical. Breath sounds with bilateral scattered rhonchi. HEART: S1, S2. ABDOMEN: Soft. Bowel tones present. EXTREMITIES: No cyanosis. ASSESSMENT: 1. S/p acute on chronic hypoxemic respiratory failure secondary to chronic obstructive pulmonary disease exacerbation and healthcare-associated pneumonia. 2. S/p urinary tract infection. 3. Congestive heart failure. 4. Ischemic cardiomyopathy with a history of automatic implantable cardioverter defibrillator. 5. History of coronary artery stenting. 6. Methicillin-resistant Staphylococcus aureus nares colonization. 7. A fib, s/p RVR PLAN: Remains stable off abx, will queen cx prn, f/u card/pulmonary rec-s DW pt Problems: Consultation Date/Type/Reason Admit Date/Time Sep 28, 2016 at 14:41 Initial Consult Date 09/28/16 Type of Consultation: ID Referring Provider: BAKARI MEZA MD Exam/Review of Systems Vital Signs Vitals Vital Signs Date Time Temp Pulse Resp B/P Pulse Ox O2 Delivery O2 Flow Rate FiO2 10/14/16 14:21 68 18 97 Nasal Cannula 3.0 10/14/16 07:41 98.8 117/64 10/13/16 13:30 32 Intake and Output 10/13/16 10/13/16 10/14/16 15:00 23:00 07:00 Intake Total 990 ml 1000 ml Output Total 650 ml Balance 340 ml 1000 ml Results Result Diagram: 10/12/16 0620 10/12/16 0620 Results 24 hrs Laboratory Tests Test 10/13/16 17:06 10/13/16 21:53 10/14/16 08:13 10/14/16 12:10 Bedside Glucose 172 111 94 107 Medications Medications Current Medications IV Flush (NS 10 ml) 10 ml PRN PRN IV IV PROTOCOL; Start 09/28/16 at 14:00 Ondansetron HCl (Zofran Inj) 4 mg Q6H PRN IV NAUSEA AND/OR VOMITING; Start at 15:00 Nitroglycerin (Nitroglycerin (Sl Tab) 0.4 Mg) 1 tab Q5M PRN SL CHEST PAIN; Start 09/28/16 at 15:00 Acetaminophen (Tylenol Liquid) 650 mg Q6H PRN PO PAIN LEVEL 1-3 OR FEVER; Start 09/28/16 at 15:00 Acetaminophen (Tylenol Tab) 650 mg Q6H PRN PO PAIN LEVEL 1-3 OR FEVER; Start at 15:00 Morphine Sulfate (morphine) 2 mg Q4H PRN IV PAIN LEVEL 7-10 Last administered on 09/29/16 02:30; Admin Dose 2 MG; Start 09/28/16 at 15:00 Lorazepam (Ativan) 1 mg Q2H PRN IV ANXIETY; Start 09/28/16 at 15:00 Docusate Sodium (Colace) 100 mg Q12H PRN PO CONSTIPATION; Start 09/28/16 at 15: 00 Famotidine (Pepcid) 20 mg Q12 PO Last administered on 10/14/16 08:26; Admin Dose 20 MG; Start 09/28/16 at 21:00 Aspirin (Aspirin) 81 mg DAILY PO Last administered on 10/14/16 08:25; Admin Dose 81 MG; Start 09/29/16 at 09:00 Atorvastatin Calcium (Lipitor) 10 mg QHS PO Last administered on 10/13/16 21:56 ; Admin Dose 10 MG; Start 09/28/16 at 21:00 Furosemide (Lasix) 40 mg DAILY PO Last administered on 10/14/16 08:25; Admin Dose 40 MG; Start 09/29/16 at 09:00 Tiotropium [place] (Spiriva) 1 inh DAILY INH ; Start 09/28/16 at 16:00; Status Future Hold Mupirocin (Bactroban) 1 applic BID TOP Last administered on 10/14/16 09:00; Admin Dose 1 APPLIC; Start 09/30/16 at 09:00 Diagnostic Test (Pha) (Accucheck) 1 ea 02 XX ; Start 10/05/16 at 02:00 Miscellaneous Information 1 ea NOTE XX ; Start 10/04/16 at 09:00 Glucose (Glutose) 15 gm Q15M PRN PO DECREASED GLUCOSE; Start 10/04/16 at 09:00 Glucose (Glutose) 22.5 gm Q15M PRN PO DECREASED GLUCOSE; Start 10/04/16 at 09: 00 Dextrose (D50w Syringe) 25 ml Q15M PRN IV DECREASED GLUCOSE; Start 10/04/16 at 09:00 Dextrose (D50w Syringe) 50 ml Q15M PRN IV DECREASED GLUCOSE; Start 10/04/16 at 09:00 Glucagon (Glucagen) 1 mg Q15M PRN IM DECREASED GLUCOSE; Start 10/04/16 at 09:00 Glucose (Glutose) 15 gm Q15M PRN BUCCAL DECREASED GLUCOSE; Start 10/04/16 at 09 :00 Metoprolol Tartrate (Lopressor) 5 mg Q4 PRN IV HR>110 Hold SBP<100; Start 10/05 at 19:30 Metoprolol Succinate (Toprol Xl) 75 mg HS PO Last administered on 10/13/16 21: 57; Admin Dose 75 MG; Start 10/08/16 at 21:00 Metoprolol Succinate (Toprol Xl) 75 mg DAILY PO Last administered on 10/12/16 08:32; Admin Dose 75 MG; Start 10/09/16 at 09:00 Amiodarone HCl (Cordarone) 200 mg BID PO Last administered on 10/14/16 08:25; Admin Dose 200 MG; Start 10/09/16 at 21:00 Insulin Glargine (Lantus) 15 unit HS SC Last administered on 10/13/16 21:59; Admin Dose 15 UNIT; Start 10/10/16 at 21:00 Montelukast Sodium (Singulair) 10 mg HS PO Last administered on 10/13/16 21:56 ; Admin Dose 10 MG; Start 10/10/16 at 21:00 Theophylline (Benji-24) 300 mg QHS PO Last administered on 10/13/16 21:56; Admin Dose 300 MG; Start 10/10/16 at 21:00 Apixaban (Eliquis) 5 mg BID PO Last administered on 10/14/16 08:26; Admin Dose 5 MG; Start 10/10/16 at 21:00 Digoxin (Digoxin) 0.125 mg DAILY@13 PO Last administered on 10/14/16 12:13; Admin Dose 0.125 MG; Start 10/12/16 at 13:00 Lisinopril (Zestril) 20 mg DAILY PO Last administered on 10/14/16 08:25; Admin Dose 20 MG; Start 10/12/16 at 09:00 Prednisone (Prednisone) 15 mg DAILY PO Last administered on 10/14/16 08:25; Admin Dose 15 MG; Start 10/12/16 at 09:00 CODY BRANCH NP Oct 14, 2016 15:59
[2016-10-14] MEDS: predniSONE 2.5 MG TAB PO SCH (17:37)
[2016-10-14 20:02] VITALS: BP 113/70; RESP 16
[2016-10-14] MEDS: ATORVASTATIN 10 MG TAB PO SCH (20:54)
[2016-10-14] MEDS: MONTELUKAST 10 MG TAB PO SCH (20:56)
[2016-10-14] MEDS: INSULIN GLARGINE [LANtus] 3 ML PEN SC SCH (20:57)
[2016-10-14] MEDS: THEOPHYLLINE (SR) 300 MG CAP PO SCH (21:04)
[2016-10-15] MEDS: ALBUTEROL/IPRATROPIUM (NEB) 3 ML AMP HHN SCH ×4 (01:34→19:23)
[2016-10-15] MEDS: ACCU-CHEK XX SCH (02:00)
[2016-10-15] MEDS: INSULIN ASPART [NOVOLOG] 3 ML PEN SC SCH ×7 (07:35→21:00)
[2016-10-15 07:40] VITALS: BP 140/77; RESP 20
[2016-10-15] MEDS: MUPIROCIN 2% 22 GM OINT TOP SCH ×2 (09:00→21:00)
[2016-10-15] MEDS: ASPIRIN 81 MG TAB PO SCH (09:11)
[2016-10-15] MEDS: AMIODARONE 200 MG TAB PO SCH ×2 (09:12→21:25)
[2016-10-15] MEDS: APIXABAN 5 MG TABLET PO SCH ×2 (09:12→21:23)
[2016-10-15] MEDS: FUROSEMIDE 40 MG TAB PO SCH (09:13)
[2016-10-15] MEDS: METOPROLOL (XL) 25 MG TAB PO SCH ×2 (09:13→21:25)
[2016-10-15] MEDS: FAMOTIDINE 20 MG TAB PO SCH ×2 (09:13→21:23)
[2016-10-15] MEDS: predniSONE 5 MG TAB PO SCH (09:13)
[2016-10-15] MEDS: LISINOPRIL 5 MG TAB PO SCH (09:14)
--- NOTE | 2016-10-15 11:48 | RADRPT ---
Vent Rate: 72 bpm RR Interval: 0 msec MI Interval: 168 msec QRS Duration: 94 msec QT Interval: 352 msec QTC Interval: 385 msec P-R-T Br[place]: 74 - -16 - 159 degrees Demand pacemaker, interpretation is based on intrinsic rhythm Sinus rhythm with premature supraventricular complexes and premature ventricular complexes or fusion complexes T wave abnormality, consider inferior ischemia Abnormal ECG Electronically Signed By: Antione Herrera [id number]
[2016-10-15] MEDS: DIGOXIN 0.125 MG TAB PO SCH (12:00)
--- NOTE | 2016-10-15 12:49 | CONS ---
Date/Time of Note Date/Time of Note DATE: 10/15/16 TIME: 12:47 Assessment/Plan Assessment/Plan Chief Complaint/Hosp Course IMPRESSION: 1. Atrial fibrillation with rapid ventricular response.-improved HR and now in SR 2. Congestive heart failure, systolic, acute on chronic. 3. History of cardiomyopathy with decreased left ventricular ejection fraction 20% to 25% per chart biopsy. 4. Shortness of breath. 5. Status post hypercapnic respiratory failure, status post extubation. 6. Chronic obstructive pulmonary disease. 7. Hypertension. 8. Dyslipidemia. 9. History of automatic implantable cardioverter-defibrillator with possible discharge.-s/p interrogation with ICD shock for uncontrolled rapid AF. 10. Pneumonia. 11.Positive troponin-minimal with no sig uptrend Recc -Tele -serial ecg's -Continue asa/Eliquis -Continue BB/digoxin -Continue ACEI -Continue statin -Continue amiodarone BID for now -Follow volume status -D/C planning Problems: Consultation Date/Type/Reason Admit Date/Time Sep 28, 2016 at 14:41 Initial Consult Date 09/28/16 Type of Consultation: cardiology Reason for Consultation AF/ICD discharge Referring Provider: BAKARI MEZA MD Exam/Review of Systems Vital Signs Vitals Vital Signs Date Time Temp Pulse Resp B/P Pulse Ox O2 Delivery O2 Flow Rate FiO2 10/15/16 09:55 3.0 10/15/16 09:52 76 20 98 Nasal Cannula 10/15/16 07:40 98.4 140/77 10/13/16 13:30 32 Intake and Output 10/14/16 10/14/16 10/15/16 15:00 23:00 07:00 Intake Total 900 ml 1000 ml Balance 900 ml 1000 ml Exam Review of Systems: CONSTITUTIONAL: No fevers, chills. PULMONARY: No sob CARDIOVASCULAR: No chest pain/palpitations GASTROINTESTINAL: No nausea/vomiting. GENITOURINARY: No hematuria/dysuria. MUSCULOSKELETAL: No myagias/arthalgias. PSYCHIATRIC: The patient denies depression. NEUROLOGIC: No weakness Constitutional: alert, oriented Psych: no complaints Head: normocephalic ENMT: mucosa pink and moist Neck: jvd (9 cm water), supple Respiratory: diminished breath sounds (at bases/B) Cardiovascular: regular rate and rhythm Gastrointestinal: non-tender, soft Musculoskeletal: muscle tone (normal) Extremities: edema (trace edema/covered by dressing) Neurological: other (No focal deficits) Results Result Diagram: 10/12/16 0620 10/12/16 0620 Results 24 hrs Laboratory Tests Test 10/14/16 17:35 10/14/16 20:53 10/15/16 07:52 10/15/16 11:50 Bedside Glucose 129 111 86 129 Medications Medications Current Medications IV Flush (NS 10 ml) 10 ml PRN PRN IV IV PROTOCOL; Start 09/28/16 at 14:00 Ondansetron HCl (Zofran Inj) 4 mg Q6H PRN IV NAUSEA AND/OR VOMITING; Start at 15:00 Nitroglycerin (Nitroglycerin (Sl Tab) 0.4 Mg) 1 tab Q5M PRN SL CHEST PAIN; Start 09/28/16 at 15:00 Acetaminophen (Tylenol Liquid) 650 mg Q6H PRN PO PAIN LEVEL 1-3 OR FEVER; Start 09/28/16 at 15:00 Acetaminophen (Tylenol Tab) 650 mg Q6H PRN PO PAIN LEVEL 1-3 OR FEVER; Start at 15:00 Morphine Sulfate (morphine) 2 mg Q4H PRN IV PAIN LEVEL 7-10 Last administered on 09/29/16 02:30; Admin Dose 2 MG; Start 09/28/16 at 15:00 Lorazepam (Ativan) 1 mg Q2H PRN IV ANXIETY; Start 09/28/16 at 15:00 Docusate Sodium (Colace) 100 mg Q12H PRN PO CONSTIPATION; Start 09/28/16 at 15: 00 Famotidine (Pepcid) 20 mg Q12 PO Last administered on 10/15/16 09:13; Admin Dose 20 MG; Start 09/28/16 at 21:00 Aspirin (Aspirin) 81 mg DAILY PO Last administered on 10/15/16 09:11; Admin Dose 81 MG; Start 09/29/16 at 09:00 Atorvastatin Calcium (Lipitor) 10 mg QHS PO Last administered on 10/14/16 20:54 ; Admin Dose 10 MG; Start 09/28/16 at 21:00 Furosemide (Lasix) 40 mg DAILY PO Last administered on 10/15/16 09:13; Admin Dose 40 MG; Start 09/29/16 at 09:00 Tiotropium [place] (Spiriva) 1 inh DAILY INH ; Start 09/28/16 at 16:00; Status Future Hold Mupirocin (Bactroban) 1 applic BID TOP Last administered on 10/14/16 20:58; Admin Dose 1 APPLIC; Start 09/30/16 at 09:00 Diagnostic Test (Pha) (Accucheck) 1 ea 02 XX ; Start 10/05/16 at 02:00 Miscellaneous Information 1 ea NOTE XX ; Start 10/04/16 at 09:00 Glucose (Glutose) 15 gm Q15M PRN PO DECREASED GLUCOSE; Start 10/04/16 at 09:00 Glucose (Glutose) 22.5 gm Q15M PRN PO DECREASED GLUCOSE; Start 10/04/16 at 09: 00 Dextrose (D50w Syringe) 25 ml Q15M PRN IV DECREASED GLUCOSE; Start 10/04/16 at 09:00 Dextrose (D50w Syringe) 50 ml Q15M PRN IV DECREASED GLUCOSE; Start 10/04/16 at 09:00 Glucagon (Glucagen) 1 mg Q15M PRN IM DECREASED GLUCOSE; Start 10/04/16 at 09:00 Glucose (Glutose) 15 gm Q15M PRN BUCCAL DECREASED GLUCOSE; Start 10/04/16 at 09 :00 Metoprolol Tartrate (Lopressor) 5 mg Q4 PRN IV HR>110 Hold SBP<100; Start 10/05 at 19:30 Metoprolol Succinate (Toprol Xl) 75 mg HS PO Last administered on 10/14/16 20: 55; Admin Dose 75 MG; Start 10/08/16 at 21:00 Metoprolol Succinate (Toprol Xl) 75 mg DAILY PO Last administered on 10/15/16 09:13; Admin Dose 75 MG; Start 10/09/16 at 09:00 Amiodarone HCl (Cordarone) 200 mg BID PO Last administered on 10/15/16 09:12; Admin Dose 200 MG; Start 10/09/16 at 21:00 Insulin Glargine (Lantus) 15 unit HS SC Last administered on 10/14/16 20:57; Admin Dose 15 UNIT; Start 10/10/16 at 21:00 Montelukast Sodium (Singulair) 10 mg HS PO Last administered on 10/14/16 20:56 ; Admin Dose 10 MG; Start 10/10/16 at 21:00 Theophylline (Benji-24) 300 mg QHS PO Last administered on 10/14/16 21:04; Admin Dose 300 MG; Start 10/10/16 at 21:00 Apixaban (Eliquis) 5 mg BID PO Last administered on 10/15/16 09:12; Admin Dose 5 MG; Start 10/10/16 at 21:00 Digoxin (Digoxin) 0.125 mg DAILY@13 PO Last administered on 10/15/16 12:00; Admin Dose 0.125 MG; Start 10/12/16 at 13:00 Lisinopril (Zestril) 20 mg DAILY PO Last administered on 10/15/16 09:14; Admin Dose 20 MG; Start 10/12/16 at 09:00 Prednisone (Prednisone) 15 mg DAILY PO Last administered on 10/15/16 09:13; Admin Dose 15 MG; Start 10/12/16 at 09:00 СВЕТЛАНА PADRON Oct 15, 2016 12:49
--- NOTE | 2016-10-15 13:31 | PN ---
Date/Time of Note Date/Time of Note DATE: 10/15/16 TIME: 13:29 Assessment/Plan VTE Prophylaxis VTE Prophylaxis Intervention: SCD's Lines/Catheters Urinary Cath still in place: No Assessment/Plan Assessment/Plan 1. Acute on chronic hypoxemic respiratory failure secondary to chronic obstructive pulmonary disease exacerbation and questionable healthcare- associated pneumonia. 2. S/p Urinary tract infection. 3. Congestive heart failure. 4. Ischemic cardiomyopathy with a history of automatic implantable cardioverter defibrillator. 5. History of coronary artery stenting. 6. Methicillin-resistant Staphylococcus aureus nares colonization. 7. A fib plan; off abx Breathing Rx awaiting placement Subjective 24 Hr Interval Summary Free Text/Dictation no SOB, awaiting placement, Exam/Review of Systems Vital Signs Vitals Vital Signs Date Time Temp Pulse Resp B/P Pulse Ox O2 Delivery O2 Flow Rate FiO2 10/15/16 09:55 3.0 10/15/16 09:52 76 20 98 Nasal Cannula 10/15/16 07:40 98.4 140/77 10/13/16 13:30 32 Intake and Output 10/14/16 10/14/16 10/15/16 15:00 23:00 07:00 Intake Total 900 ml 1000 ml Balance 900 ml 1000 ml Exam NECK: Supple. No JVD noticed. RESPIRATORY: Bilaterally diminished breath sounds. Orally intubated and connected to a mechanical ventilator. CARDIAC: S1, S2 heard. Regular rate and rhythm. ABDOMEN: Soft, nontender and nondistended. Bowel sounds are positive in all 4 quadrants. EXT: plaster on lower extremity Results Result Diagram: 10/12/16 0620 10/12/16 0620 Results 24 hrs Laboratory Tests Test 10/14/16 17:35 10/14/16 20:53 10/15/16 07:52 10/15/16 11:50 Bedside Glucose 129 111 86 129 Medications Medications Current Medications IV Flush (NS 10 ml) 10 ml PRN PRN IV IV PROTOCOL; Start 09/28/16 at 14:00 Ondansetron HCl (Zofran Inj) 4 mg Q6H PRN IV NAUSEA AND/OR VOMITING; Start at 15:00 Nitroglycerin (Nitroglycerin (Sl Tab) 0.4 Mg) 1 tab Q5M PRN SL CHEST PAIN; Start 09/28/16 at 15:00 Acetaminophen (Tylenol Liquid) 650 mg Q6H PRN PO PAIN LEVEL 1-3 OR FEVER; Start 09/28/16 at 15:00 Acetaminophen (Tylenol Tab) 650 mg Q6H PRN PO PAIN LEVEL 1-3 OR FEVER; Start at 15:00 Morphine Sulfate (morphine) 2 mg Q4H PRN IV PAIN LEVEL 7-10 Last administered on 09/29/16 02:30; Admin Dose 2 MG; Start 09/28/16 at 15:00 Lorazepam (Ativan) 1 mg Q2H PRN IV ANXIETY; Start 09/28/16 at 15:00 Docusate Sodium (Colace) 100 mg Q12H PRN PO CONSTIPATION; Start 09/28/16 at 15: 00 Famotidine (Pepcid) 20 mg Q12 PO Last administered on 10/15/16 09:13; Admin Dose 20 MG; Start 09/28/16 at 21:00 Aspirin (Aspirin) 81 mg DAILY PO Last administered on 10/15/16 09:11; Admin Dose 81 MG; Start 09/29/16 at 09:00 Atorvastatin Calcium (Lipitor) 10 mg QHS PO Last administered on 10/14/16 20:54 ; Admin Dose 10 MG; Start 09/28/16 at 21:00 Furosemide (Lasix) 40 mg DAILY PO Last administered on 10/15/16 09:13; Admin Dose 40 MG; Start 09/29/16 at 09:00 Tiotropium [place] (Spiriva) 1 inh DAILY INH ; Start 09/28/16 at 16:00; Status Future Hold Mupirocin (Bactroban) 1 applic BID TOP Last administered on 10/14/16 20:58; Admin Dose 1 APPLIC; Start 09/30/16 at 09:00 Diagnostic Test (Pha) (Accucheck) 1 ea 02 XX ; Start 10/05/16 at 02:00 Miscellaneous Information 1 ea NOTE XX ; Start 10/04/16 at 09:00 Glucose (Glutose) 15 gm Q15M PRN PO DECREASED GLUCOSE; Start 10/04/16 at 09:00 Glucose (Glutose) 22.5 gm Q15M PRN PO DECREASED GLUCOSE; Start 10/04/16 at 09: 00 Dextrose (D50w Syringe) 25 ml Q15M PRN IV DECREASED GLUCOSE; Start 10/04/16 at 09:00 Dextrose (D50w Syringe) 50 ml Q15M PRN IV DECREASED GLUCOSE; Start 10/04/16 at 09:00 Glucagon (Glucagen) 1 mg Q15M PRN IM DECREASED GLUCOSE; Start 10/04/16 at 09:00 Glucose (Glutose) 15 gm Q15M PRN BUCCAL DECREASED GLUCOSE; Start 10/04/16 at 09 :00 Metoprolol Tartrate (Lopressor) 5 mg Q4 PRN IV HR>110 Hold SBP<100; Start 10/05 at 19:30 Metoprolol Succinate (Toprol Xl) 75 mg HS PO Last administered on 10/14/16 20: 55; Admin Dose 75 MG; Start 10/08/16 at 21:00 Metoprolol Succinate (Toprol Xl) 75 mg DAILY PO Last administered on 10/15/16 09:13; Admin Dose 75 MG; Start 10/09/16 at 09:00 Amiodarone HCl (Cordarone) 200 mg BID PO Last administered on 10/15/16 09:12; Admin Dose 200 MG; Start 10/09/16 at 21:00 Insulin Glargine (Lantus) 15 unit HS SC Last administered on 10/14/16 20:57; Admin Dose 15 UNIT; Start 10/10/16 at 21:00 Montelukast Sodium (Singulair) 10 mg HS PO Last administered on 10/14/16 20:56 ; Admin Dose 10 MG; Start 10/10/16 at 21:00 Theophylline (Benji-24) 300 mg QHS PO Last administered on 10/14/16 21:04; Admin Dose 300 MG; Start 10/10/16 at 21:00 Apixaban (Eliquis) 5 mg BID PO Last administered on 10/15/16 09:12; Admin Dose 5 MG; Start 10/10/16 at 21:00 Digoxin (Digoxin) 0.125 mg DAILY@13 PO Last administered on 10/15/16 12:00; Admin Dose 0.125 MG; Start 10/12/16 at 13:00 Lisinopril (Zestril) 20 mg DAILY PO Last administered on 10/15/16 09:14; Admin Dose 20 MG; Start 10/12/16 at 09:00 Prednisone (Prednisone) 15 mg DAILY PO Last administered on 10/15/16t 09:13; Admin Dose 15 MG; Start 10/12/16 at 09:00 GIULIA KOO MD Oct 15, 2016 13:31
[2016-10-15] MEDS: predniSONE 2.5 MG TAB PO SCH (17:08)
--- NOTE | 2016-10-15 19:53 | PN ---
DATE: PALLIATIVE CARE PROGRESS NOTE The patient has been on med/surg blakely since I have last seen him on October 13. I went through a conversation with Mr. Nuñez once again to try and ascertain whether or not he truly understands card iopulmonary resuscitation, intubation. It is my opinion that he does not understand nor does he hav e capacity to take care of himself at home. He lives with 3 other people what sounds like in a cond ominium. It is unknown whether or not he has been seen home health care, but certainly he has not f ollowed up with his primary care physician. I have asked case management to follow through and make the appropriate referrals for conservatorship. Dictated By: ARJUN ROJAS MD, LP/NANDO Conf#: [id number] DID#: [id number]
[2016-10-15 20:11] VITALS: BP 109/58; RESP 19
[2016-10-15] MEDS: ATORVASTATIN 10 MG TAB PO SCH (21:23)
[2016-10-15] MEDS: THEOPHYLLINE (SR) 300 MG CAP PO SCH (21:23)
[2016-10-15] MEDS: MONTELUKAST 10 MG TAB PO SCH (21:23)
[2016-10-15] MEDS: INSULIN GLARGINE [LANtus] 3 ML PEN SC SCH (21:30)
[2016-10-16] MEDS: ACCU-CHEK XX SCH (02:00)
[2016-10-16] MEDS: ALBUTEROL/IPRATROPIUM (NEB) 3 ML AMP HHN SCH ×4 (02:03→20:52)
[2016-10-16] MEDS: INSULIN ASPART [NOVOLOG] 3 ML PEN SC SCH ×8 (07:35→20:44)
[2016-10-16 08:41] VITALS: BP 156/79; RESP 20
[2016-10-16] MEDS: MUPIROCIN 2% 22 GM OINT TOP SCH ×2 (09:00→20:45)
[2016-10-16] MEDS: ASPIRIN 81 MG TAB PO SCH (09:19)
[2016-10-16] MEDS: AMIODARONE 200 MG TAB PO SCH ×2 (09:19→20:41)
[2016-10-16] MEDS: METOPROLOL (XL) 25 MG TAB PO SCH ×2 (09:19→20:42)
[2016-10-16] MEDS: FUROSEMIDE 40 MG TAB PO SCH (09:20)
[2016-10-16] MEDS: LISINOPRIL 5 MG TAB PO SCH (09:20)
[2016-10-16] MEDS: APIXABAN 5 MG TABLET PO SCH ×2 (09:20→20:41)
[2016-10-16] MEDS: FAMOTIDINE 20 MG TAB PO SCH ×2 (09:20→20:42)
[2016-10-16] MEDS: predniSONE 5 MG TAB PO SCH (09:24)
--- NOTE | 2016-10-16 12:44 | CONS ---
Date/Time of Note Date/Time of Note DATE: 10/16/16 TIME: 12:40 Assessment/Plan Assessment/Plan Chief Complaint/Hosp Course IMPRESSION: 1. Atrial fibrillation with rapid ventricular response.-improved HR and now in SR 2. Congestive heart failure, systolic, acute on chronic. 3. History of cardiomyopathy with decreased left ventricular ejection fraction 20% to 25% per chart biopsy. 4. Shortness of breath. 5. Status post hypercapnic respiratory failure, status post extubation. 6. Chronic obstructive pulmonary disease. 7. Hypertension. 8. Dyslipidemia. 9. History of automatic implantable cardioverter-defibrillator with possible discharge.-s/p interrogation with ICD shock for uncontrolled rapid AF. 10. Pneumonia. 11.Positive troponin-minimal with no sig uptrend Recc -Tele -serial ecg's -Continue asa/Eliquis -Continue BB/digoxin -Continue ACEI -Continue statin -Continue amiodarone BID for now -Follow volume status and continue gentle lasix diuresis -D/C planning Problems: Consultation Date/Type/Reason Admit Date/Time Sep 28, 2016 at 14:41 Initial Consult Date 09/28/16 Type of Consultation: cardiology Reason for Consultation AF/CHF Referring Provider: DEVON MUHAMMAD MD Exam/Review of Systems Vital Signs Vitals Vital Signs Date Time Temp Pulse Resp B/P Pulse Ox O2 Delivery O2 Flow Rate FiO2 10/16/16 08:41 97.8 75 20 156/79 94 10/16/16 08:01 Nasal Cannula 2.0 10/13/16 13:30 32 Intake and Output 10/15/16 10/15/16 10/16/16 15:00 23:00 07:00 Intake Total 2400 ml 480 ml Balance 2400 ml 480 ml Exam Review of Systems: CONSTITUTIONAL: No fevers, chills. PULMONARY: mild sob CARDIOVASCULAR: No chest pain/palpitations GASTROINTESTINAL: No nausea/vomiting. GENITOURINARY: No hematuria/dysuria. MUSCULOSKELETAL: No myagias/arthalgias. PSYCHIATRIC: The patient denies depression. NEUROLOGIC: No weakness Constitutional: alert, oriented Psych: no complaints Head: normocephalic ENMT: mucosa pink and moist Neck: jvd (8-9 cm water), supple Respiratory: diminished breath sounds (at bases/B) Cardiovascular: regular rate and rhythm Gastrointestinal: non-tender, soft Musculoskeletal: muscle tone (normal) Extremities: edema (trace/B) Neurological: other (No focal deficits) Results Result Diagram: 10/12/16 0620 10/12/16 0620 Results 24 hrs Laboratory Tests Test 10/15/16 17:05 10/15/16 21:24 10/16/16 08:12 10/16/16 09:18 Bedside Glucose 202 131 66 L 140 Test 10/16/16 09:55 10/16/16 12:02 Bedside Glucose 250 H 110 Medications Medications Current Medications IV Flush (NS 10 ml) 10 ml PRN PRN IV IV PROTOCOL; Start 09/28/16 at 14:00 Ondansetron HCl (Zofran Inj) 4 mg Q6H PRN IV NAUSEA AND/OR VOMITING; Start at 15:00 Nitroglycerin (Nitroglycerin (Sl Tab) 0.4 Mg) 1 tab Q5M PRN SL CHEST PAIN; Start 09/28/16 at 15:00 Acetaminophen (Tylenol Liquid) 650 mg Q6H PRN PO PAIN LEVEL 1-3 OR FEVER; Start 09/28/16 at 15:00 Acetaminophen (Tylenol Tab) 650 mg Q6H PRN PO PAIN LEVEL 1-3 OR FEVER; Start at 15:00 Morphine Sulfate (morphine) 2 mg Q4H PRN IV PAIN LEVEL 7-10 Last administered on 09/29/16 02:30; Admin Dose 2 MG; Start 09/28/16 at 15:00 Lorazepam (Ativan) 1 mg Q2H PRN IV ANXIETY; Start 09/28/16 at 15:00 Docusate Sodium (Colace) 100 mg Q12H PRN PO CONSTIPATION; Start 09/28/16 at 15: 00 Famotidine (Pepcid) 20 mg Q12 PO Last administered on 10/16/16 09:20; Admin Dose 20 MG; Start 09/28/16 at 21:00 Aspirin (Aspirin) 81 mg DAILY PO Last administered on 10/16/16 09:19; Admin Dose 81 MG; Start 09/29/16 at 09:00 Atorvastatin Calcium (Lipitor) 10 mg QHS PO Last administered on 10/15/16 21:23 ; Admin Dose 10 MG; Start 09/28/16 at 21:00 Furosemide (Lasix) 40 mg DAILY PO Last administered on 10/16/16 09:20; Admin Dose 40 MG; Start 09/29/16 at 09:00 Tiotropium [place] (Spiriva) 1 inh DAILY INH ; Start 09/28/16 at 16:00; Status Future Hold Mupirocin (Bactroban) 1 applic BID TOP Last administered on 10/14/16 20:58; Admin Dose 1 APPLIC; Start 09/30/16 at 09:00 Diagnostic Test (Pha) (Accucheck) 1 ea 02 XX ; Start 10/05/16 at 02:00 Miscellaneous Information 1 ea NOTE XX ; Start 10/04/16 at 09:00 Glucose (Glutose) 15 gm Q15M PRN PO DECREASED GLUCOSE; Start 10/04/16 at 09:00 Glucose (Glutose) 22.5 gm Q15M PRN PO DECREASED GLUCOSE; Start 10/04/16 at 09: 00 Dextrose (D50w Syringe) 25 ml Q15M PRN IV DECREASED GLUCOSE; Start 10/04/16 at 09:00 Dextrose (D50w Syringe) 50 ml Q15M PRN IV DECREASED GLUCOSE; Start 10/04/16 at 09:00 Glucagon (Glucagen) 1 mg Q15M PRN IM DECREASED GLUCOSE; Start 10/04/16 at 09:00 Glucose (Glutose) 15 gm Q15M PRN BUCCAL DECREASED GLUCOSE; Start 10/04/16 at 09 :00 Metoprolol Tartrate (Lopressor) 5 mg Q4 PRN IV HR>110 Hold SBP<100; Start 10/05 at 19:30 Metoprolol Succinate (Toprol Xl) 75 mg HS PO Last administered on 10/15/16 21: 25; Admin Dose 75 MG; Start 10/08/16 at 21:00 Metoprolol Succinate (Toprol Xl) 75 mg DAILY PO Last administered on 10/16/16 09:19; Admin Dose 75 MG; Start 10/09/16 at 09:00 Amiodarone HCl (Cordarone) 200 mg BID PO Last administered on 10/16/16 09:19; Admin Dose 200 MG; Start 10/09/16 at 21:00 Insulin Glargine (Lantus) 15 unit HS SC Last administered on 10/15/16 21:30; Admin Dose 15 UNIT; Start 10/10/16 at 21:00 Montelukast Sodium (Singulair) 10 mg HS PO Last administered on 10/15/16 21:23 ; Admin Dose 10 MG; Start 10/10/16 at 21:00 Theophylline (Benji-24) 300 mg QHS PO Last administered on 10/15/16 21:23; Admin Dose 300 MG; Start 10/10/16 at 21:00 Apixaban (Eliquis) 5 mg BID PO Last administered on 10/16/16 09:20; Admin Dose 5 MG; Start 10/10/16 at 21:00 Digoxin (Digoxin) 0.125 mg DAILY@13 PO Last administered on 10/15/16 12:00; Admin Dose 0.125 MG; Start 10/12/16 at 13:00 Lisinopril (Zestril) 20 mg DAILY PO Last administered on 10/16/16 09:20; Admin Dose 20 MG; Start 10/12/16 at 09:00 Prednisone (Prednisone) 15 mg DAILY PO Last administered on 10/16/16 09:24; Admin Dose 15 MG; Start 10/12/16 at 09:00 СВЕТЛАНА PADRON Oct 16, 2016 12:44
[2016-10-16] MEDS: DIGOXIN 0.125 MG TAB PO SCH (13:47)
--- NOTE | 2016-10-16 13:53 | PN ---
Date/Time of Note Date/Time of Note DATE: 10/16/16 TIME: 13:52 Assessment/Plan VTE Prophylaxis VTE Prophylaxis Intervention: SCD's Lines/Catheters Urinary Cath still in place: No Assessment/Plan Assessment/Plan 1. Acute on chronic hypoxemic respiratory failure secondary to chronic obstructive pulmonary disease exacerbation and questionable healthcare- associated pneumonia. 2. S/p Urinary tract infection. 3. Congestive heart failure. 4. Ischemic cardiomyopathy with a history of automatic implantable cardioverter defibrillator. 5. History of coronary artery stenting. 6. Methicillin-resistant Staphylococcus aureus nares colonization. 7. A fib plan; off abx Breathing Rx awaiting placement Subjective 24 Hr Interval Summary Free Text/Dictation doing ok, BP stable, awaiting placement Exam/Review of Systems Vital Signs Vitals Vital Signs Date Time Temp Pulse Resp B/P Pulse Ox O2 Delivery O2 Flow Rate FiO2 10/16/16 08:41 97.8 75 20 156/79 94 10/16/16 08:01 Nasal Cannula 2.0 10/13/16 13:30 32 Intake and Output 10/15/16 10/15/16 10/16/16 15:00 23:00 07:00 Intake Total 2400 ml 480 ml Balance 2400 ml 480 ml Exam Constitutional: alert, oriented Psych: no complaints Head: normocephalic ENMT: mucosa pink and moist Neck: jvd (8-9 cm water), supple Respiratory: diminished breath sounds (at bases/B) Cardiovascular: regular rate and rhythm Gastrointestinal: non-tender, soft Musculoskeletal: muscle tone (normal) Extremities: edema (trace/B) Neurological: other (No focal deficits) Results Result Diagram: 10/12/16 0620 10/12/16 0620 Results 24 hrs Laboratory Tests Test 10/15/16 17:05 10/15/16 21:24 10/16/16 08:12 10/16/16 09:18 Bedside Glucose 202 131 66 L 140 Test 10/16/16 09:55 10/16/16 12:02 Bedside Glucose 250 H 110 Medications Medications Current Medications IV Flush (NS 10 ml) 10 ml PRN PRN IV IV PROTOCOL; Start 09/28/16 at 14:00 Ondansetron HCl (Zofran Inj) 4 mg Q6H PRN IV NAUSEA AND/OR VOMITING; Start at 15:00 Nitroglycerin (Nitroglycerin (Sl Tab) 0.4 Mg) 1 tab Q5M PRN SL CHEST PAIN; Start 09/28/16 at 15:00 Acetaminophen (Tylenol Liquid) 650 mg Q6H PRN PO PAIN LEVEL 1-3 OR FEVER; Start 09/28/16 at 15:00 Acetaminophen (Tylenol Tab) 650 mg Q6H PRN PO PAIN LEVEL 1-3 OR FEVER; Start at 15:00 Morphine Sulfate (morphine) 2 mg Q4H PRN IV PAIN LEVEL 7-10 Last administered on 09/29/16 02:30; Admin Dose 2 MG; Start 09/28/16 at 15:00 Lorazepam (Ativan) 1 mg Q2H PRN IV ANXIETY; Start 09/28/16 at 15:00 Docusate Sodium (Colace) 100 mg Q12H PRN PO CONSTIPATION; Start 09/28/16 at 15: 00 Famotidine (Pepcid) 20 mg Q12 PO Last administered on 10/16/16 09:20; Admin Dose 20 MG; Start 09/28/16 at 21:00 Aspirin (Aspirin) 81 mg DAILY PO Last administered on 10/16/16 09:19; Admin Dose 81 MG; Start 09/29/16 at 09:00 Atorvastatin Calcium (Lipitor) 10 mg QHS PO Last administered on 10/15/16 21:23 ; Admin Dose 10 MG; Start 09/28/16 at 21:00 Furosemide (Lasix) 40 mg DAILY PO Last administered on 10/16/16 09:20; Admin Dose 40 MG; Start 09/29/16 at 09:00 Tiotropium [place] (Spiriva) 1 inh DAILY INH ; Start 09/28/16 at 16:00; Status Future Hold Mupirocin (Bactroban) 1 applic BID TOP Last administered on 10/14/16 20:58; Admin Dose 1 APPLIC; Start 09/30/16 at 09:00 Diagnostic Test (Pha) (Accucheck) 1 ea 02 XX ; Start 10/05/16 at 02:00 Miscellaneous Information 1 ea NOTE XX ; Start 10/04/16 at 09:00 Glucose (Glutose) 15 gm Q15M PRN PO DECREASED GLUCOSE; Start 10/04/16 at 09:00 Glucose (Glutose) 22.5 gm Q15M PRN PO DECREASED GLUCOSE; Start 10/04/16 at 09: 00 Dextrose (D50w Syringe) 25 ml Q15M PRN IV DECREASED GLUCOSE; Start 10/04/16 at 09:00 Dextrose (D50w Syringe) 50 ml Q15M PRN IV DECREASED GLUCOSE; Start 10/04/16 at 09:00 Glucagon (Glucagen) 1 mg Q15M PRN IM DECREASED GLUCOSE; Start 10/04/16 at 09:00 Glucose (Glutose) 15 gm Q15M PRN BUCCAL DECREASED GLUCOSE; Start 10/04/16 at 09 :00 Metoprolol Tartrate (Lopressor) 5 mg Q4 PRN IV HR>110 Hold SBP<100; Start 10/05 at 19:30 Metoprolol Succinate (Toprol Xl) 75 mg HS PO Last administered on 10/15/16 21: 25; Admin Dose 75 MG; Start 10/08/16 at 21:00 Metoprolol Succinate (Toprol Xl) 75 mg DAILY PO Last administered on 10/16/16 09:19; Admin Dose 75 MG; Start 10/09/16 at 09:00 Amiodarone HCl (Cordarone) 200 mg BID PO Last administered on 10/16/16 09:19; Admin Dose 200 MG; Start 10/09/16 at 21:00 Insulin Glargine (Lantus) 15 unit HS SC Last administered on 10/15/16 21:30; Admin Dose 15 UNIT; Start 10/10/16 at 21:00 Montelukast Sodium (Singulair) 10 mg HS PO Last administered on 10/15/16 21:23 ; Admin Dose 10 MG; Start 10/10/16 at 21:00 Theophylline (Benji-24) 300 mg QHS PO Last administered on 10/15/16 21:23; Admin Dose 300 MG; Start 10/10/16 at 21:00 Apixaban (Eliquis) 5 mg BID PO Last administered on 10/16/16 09:20; Admin Dose 5 MG; Start 10/10/16 at 21:00 Digoxin (Digoxin) 0.125 mg DAILY@13 PO Last administered on 10/16/16 13:47; Admin Dose 0.125 MG; Start 10/12/16 at 13:00 Lisinopril (Zestril) 20 mg DAILY PO Last administered on 10/16/16 09:20; Admin Dose 20 MG; Start 10/12/16 at 09:00 Prednisone (Prednisone) 15 mg DAILY PO Last administered on 10/16/16 09:24; Admin Dose 15 MG; Start 10/12/16 at 09:00 GIULIA KOO MD Oct 16, 2016 13:53
[2016-10-16] MEDS: predniSONE 2.5 MG TAB PO SCH (17:41)
[2016-10-16 20:14] VITALS: BP 168/91; RESP 19
[2016-10-16 20:40] VITALS: BP 146/78; PULSE 60
[2016-10-16] MEDS: ATORVASTATIN 10 MG TAB PO SCH (20:41)
[2016-10-16] MEDS: THEOPHYLLINE (SR) 300 MG CAP PO SCH (20:41)
[2016-10-16] MEDS: MONTELUKAST 10 MG TAB PO SCH (20:41)
[2016-10-16] MEDS: INSULIN GLARGINE [LANtus] 3 ML PEN SC SCH (20:45)
[2016-10-17] MEDS: ALBUTEROL/IPRATROPIUM (NEB) 3 ML AMP HHN SCH ×4 (01:47→19:58)
[2016-10-17] MEDS: ACCU-CHEK XX SCH (02:00)
[2016-10-17] MEDS: INSULIN ASPART [NOVOLOG] 3 ML PEN SC SCH ×7 (07:44→20:43)
[2016-10-17 08:17] VITALS: BP 123/57; RESP 20
[2016-10-17] MEDS: ASPIRIN 81 MG TAB PO SCH (08:23)
[2016-10-17] MEDS: predniSONE 5 MG TAB PO SCH (08:23)
[2016-10-17] MEDS: METOPROLOL (XL) 25 MG TAB PO SCH ×2 (08:23→20:40)
[2016-10-17] MEDS: FAMOTIDINE 20 MG TAB PO SCH ×2 (08:24→20:39)
[2016-10-17] MEDS: APIXABAN 5 MG TABLET PO SCH ×2 (08:24→20:39)
[2016-10-17] MEDS: AMIODARONE 200 MG TAB PO SCH ×2 (08:24→20:40)
[2016-10-17] MEDS: FUROSEMIDE 40 MG TAB PO SCH ×2 (08:24→17:37)
[2016-10-17] MEDS: MUPIROCIN 2% 22 GM OINT TOP SCH ×2 (08:26→21:38)
[2016-10-17] MEDS: LISINOPRIL 5 MG TAB PO SCH (09:25)
[2016-10-17] MEDS: DIGOXIN 0.125 MG TAB PO SCH (12:10)
--- NOTE | 2016-10-17 14:44 | PN ---
Date/Time of Note Date/Time of Note DATE: 10/17/16 TIME: 14:43 Assessment/Plan VTE Prophylaxis VTE Prophylaxis Intervention: SCD's Lines/Catheters Urinary Cath still in place: No Assessment/Plan Assessment/Plan 1. Acute on chronic hypoxemic respiratory failure secondary to chronic obstructive pulmonary disease exacerbation and questionable healthcare- associated pneumonia. 2. S/p Urinary tract infection. 3. Congestive heart failure. 4. Ischemic cardiomyopathy with a history of automatic implantable cardioverter defibrillator. 5. History of coronary artery stenting. 6. Methicillin-resistant Staphylococcus aureus nares colonization. 7. A fib plan; off abx Breathing Rx awaiting placement Subjective 24 Hr Interval Summary Free Text/Dictation no acute events overnight, BP stable Exam/Review of Systems Vital Signs Vitals Vital Signs Date Time Temp Pulse Resp B/P Pulse Ox O2 Delivery O2 Flow Rate FiO2 10/17/16 08:17 98.3 64 20 123/57 98 10/17/16 07:39 Nasal Cannula 2.0 10/13/16 13:30 32 Intake and Output 10/16/16 10/16/16 10/17/16 15:00 23:00 07:00 Intake Total 960 ml 500 ml Balance 960 ml 500 ml Exam Constitutional: alert, oriented Psych: no complaints Head: normocephalic ENMT: mucosa pink and moist Neck: jvd (8-9 cm water), supple Respiratory: diminished breath sounds (at bases/B) Cardiovascular: regular rate and rhythm Gastrointestinal: non-tender, soft Musculoskeletal: muscle tone (normal) Extremities: edema (trace/B) Neurological: other (No focal deficits) Results Results 24 hrs Laboratory Tests Test 10/16/16 17:10 10/16/16 19:54 10/17/16 02:30 10/17/16 07:32 Bedside Glucose 136 291 H 81 75 Test 10/17/16 11:32 Bedside Glucose 129 Medications Medications Current Medications IV Flush (NS 10 ml) 10 ml PRN PRN IV IV PROTOCOL; Start 09/28/16 at 14:00 Ondansetron HCl (Zofran Inj) 4 mg Q6H PRN IV NAUSEA AND/OR VOMITING; Start at 15:00 Nitroglycerin (Nitroglycerin (Sl Tab) 0.4 Mg) 1 tab Q5M PRN SL CHEST PAIN; Start 09/28/16 at 15:00 Acetaminophen (Tylenol Liquid) 650 mg Q6H PRN PO PAIN LEVEL 1-3 OR FEVER; Start 09/28/16 at 15:00 Acetaminophen (Tylenol Tab) 650 mg Q6H PRN PO PAIN LEVEL 1-3 OR FEVER; Start at 15:00 Morphine Sulfate (morphine) 2 mg Q4H PRN IV PAIN LEVEL 7-10 Last administered on 09/29/16 02:30; Admin Dose 2 MG; Start 09/28/16 at 15:00 Lorazepam (Ativan) 1 mg Q2H PRN IV ANXIETY; Start 09/28/16 at 15:00 Docusate Sodium (Colace) 100 mg Q12H PRN PO CONSTIPATION; Start 09/28/16 at 15: 00 Famotidine (Pepcid) 20 mg Q12 PO Last administered on 10/17/16 08:24; Admin Dose 20 MG; Start 09/28/16 at 21:00 Aspirin (Aspirin) 81 mg DAILY PO Last administered on 10/17/16 08:23; Admin Dose 81 MG; Start 09/29/16 at 09:00 Atorvastatin Calcium (Lipitor) 10 mg QHS PO Last administered on 10/16/16 20: 41; Admin Dose 10 MG; Start 09/28/16 at 21:00 Furosemide (Lasix) 40 mg DAILY PO Last administered on 10/17/16 08:24; Admin Dose 40 MG; Start 09/29/16 at 09:00 Tiotropium [place] (Spiriva) 1 inh DAILY INH ; Start 09/28/16 at 16:00; Status Future Hold Mupirocin (Bactroban) 1 applic BID TOP Last administered on 10/16/16 20:45; Admin Dose 1 APPLIC; Start 09/30/16 at 09:00 Diagnostic Test (Pha) (Accucheck) 1 ea 02 XX ; Start 10/05/16 at 02:00 Miscellaneous Information 1 ea NOTE XX ; Start 10/04/16 at 09:00 Glucose (Glutose) 15 gm Q15M PRN PO DECREASED GLUCOSE; Start 10/04/16 at 09:00 Glucose (Glutose) 22.5 gm Q15M PRN PO DECREASED GLUCOSE; Start 10/04/16 at 09: 00 Dextrose (D50w Syringe) 25 ml Q15M PRN IV DECREASED GLUCOSE; Start 10/04/16 at 09:00 Dextrose (D50w Syringe) 50 ml Q15M PRN IV DECREASED GLUCOSE; Start 10/04/16 at 09:00 Glucagon (Glucagen) 1 mg Q15M PRN IM DECREASED GLUCOSE; Start 10/04/16 at 09:00 Glucose (Glutose) 15 gm Q15M PRN BUCCAL DECREASED GLUCOSE; Start 10/04/16 at 09 :00 Metoprolol Tartrate (Lopressor) 5 mg Q4 PRN IV HR>110 Hold SBP<100; Start 10/05 at 19:30 Metoprolol Succinate (Toprol Xl) 75 mg HS PO Last administered on 10/16/16 20: 42; Admin Dose 75 MG; Start 10/08/16 at 21:00 Metoprolol Succinate (Toprol Xl) 75 mg DAILY PO Last administered on 10/17/16 08:23; Admin Dose 75 MG; Start 10/09/16 at 09:00 Amiodarone HCl (Cordarone) 200 mg BID PO Last administered on 10/17/16 08:24; Admin Dose 200 MG; Start 10/09/16 at 21:00 Insulin Glargine (Lantus) 15 unit HS SC Last administered on 10/16/16 20:45; Admin Dose 15 UNIT; Start 10/10/16 at 21:00 Montelukast Sodium (Singulair) 10 mg HS PO Last administered on 10/16/16 20:41 ; Admin Dose 10 MG; Start 10/10/16 at 21:00 Theophylline (Benji-24) 300 mg QHS PO Last administered on 10/16/16 20:41; Admin Dose 300 MG; Start 10/10/16 at 21:00 Apixaban (Eliquis) 5 mg BID PO Last administered on 10/17/16 08:24; Admin Dose 5 MG; Start 10/10/16 at 21:00 Digoxin (Digoxin) 0.125 mg DAILY@13 PO Last administered on 10/17/16 12:10; Admin Dose 0.125 MG; Start 10/12/16 at 13:00 Lisinopril (Zestril) 20 mg DAILY PO Last administered on 10/17/16 09:25; Admin Dose 20 MG; Start 10/12/16 at 09:00 Prednisone (Prednisone) 15 mg DAILY PO Last administered on 10/17/16t 08:23; Admin Dose 15 MG; Start 10/12/16 at 09:00 GIULIA KOO MD Oct 17, 2016 14:44
--- NOTE | 2016-10-17 14:50 | CONS ---
Date/Time of Note Date/Time of Note DATE: 10/17/16 TIME: 14:47 Assessment/Plan Assessment/Plan Chief Complaint/Hosp Course IMPRESSION: 1. Atrial fibrillation with rapid ventricular response.-improved HR and now in SR 2. Congestive heart failure, systolic, acute on chronic. 3. History of cardiomyopathy with decreased left ventricular ejection fraction 20% to 25% per chart biopsy. 4. Shortness of breath. 5. Status post hypercapnic respiratory failure, status post extubation. 6. Chronic obstructive pulmonary disease. 7. Hypertension. 8. Dyslipidemia. 9. History of automatic implantable cardioverter-defibrillator with possible discharge.-s/p interrogation with ICD shock for uncontrolled rapid AF. 10. Pneumonia. 11.Positive troponin-minimal with no sig uptrend Recc -Tele -serial ecg's -Continue asa/Eliquis -Continue BB/digoxin -Continue ACEI -Continue statin -Continue amiodarone BID for now -Follow volume status and will increase lasix diuresis given worsening LE edema -Check LE venouos DELBERT -awaiting placement Problems: Consultation Date/Type/Reason Admit Date/Time Sep 28, 2016 at 14:41 Initial Consult Date 09/28/16 Type of Consultation: cardiology Reason for Consultation Cardiomyopathy/aicd discharge Referring Provider: DEVON MUHAMMAD MD Exam/Review of Systems Vital Signs Vitals Vital Signs Date Time Temp Pulse Resp B/P Pulse Ox O2 Delivery O2 Flow Rate FiO2 10/17/16 08:17 98.3 64 20 123/57 98 10/17/16 07:39 Nasal Cannula 2.0 10/13/16 13:30 32 Intake and Output 10/16/16 10/16/16 10/17/16 15:00 23:00 07:00 Intake Total 960 ml 500 ml Balance 960 ml 500 ml Exam Review of Systems: CONSTITUTIONAL: No fevers, chills. PULMONARY: No sob CARDIOVASCULAR: No chest pain/palpitations GASTROINTESTINAL: No nausea/vomiting. GENITOURINARY: No hematuria/dysuria. MUSCULOSKELETAL: No myagias/arthalgias. PSYCHIATRIC: The patient denies depression. NEUROLOGIC: No weakness Constitutional: alert, oriented Psych: no complaints Head: normocephalic ENMT: mucosa pink and moist Neck: jvd (9 cm water), supple Respiratory: diminished breath sounds (at bases/B) Cardiovascular: regular rate and rhythm Gastrointestinal: non-tender, soft Musculoskeletal: muscle tone (normal) Extremities: pitting pedal edema (assymetric) Neurological: other (No focal deficits) Results Results 24 hrs Laboratory Tests Test 10/16/16 17:10 10/16/16 19:54 10/17/16 02:30 10/17/16 07:32 Bedside Glucose 136 291 H 81 75 Test 10/17/16 11:32 Bedside Glucose 129 Medications Medications Current Medications IV Flush (NS 10 ml) 10 ml PRN PRN IV IV PROTOCOL; Start 09/28/16 at 14:00 Ondansetron HCl (Zofran Inj) 4 mg Q6H PRN IV NAUSEA AND/OR VOMITING; Start at 15:00 Nitroglycerin (Nitroglycerin (Sl Tab) 0.4 Mg) 1 tab Q5M PRN SL CHEST PAIN; Start 09/28/16 at 15:00 Acetaminophen (Tylenol Liquid) 650 mg Q6H PRN PO PAIN LEVEL 1-3 OR FEVER; Start 09/28/16 at 15:00 Acetaminophen (Tylenol Tab) 650 mg Q6H PRN PO PAIN LEVEL 1-3 OR FEVER; Start at 15:00 Morphine Sulfate (morphine) 2 mg Q4H PRN IV PAIN LEVEL 7-10 Last administered on 09/29/16 02:30; Admin Dose 2 MG; Start 09/28/16 at 15:00 Lorazepam (Ativan) 1 mg Q2H PRN IV ANXIETY; Start 09/28/16 at 15:00 Docusate Sodium (Colace) 100 mg Q12H PRN PO CONSTIPATION; Start 09/28/16 at 15: 00 Famotidine (Pepcid) 20 mg Q12 PO Last administered on 10/17/16 08:24; Admin Dose 20 MG; Start 09/28/16 at 21:00 Aspirin (Aspirin) 81 mg DAILY PO Last administered on 10/17/16 08:23; Admin Dose 81 MG; Start 09/29/16 at 09:00 Atorvastatin Calcium (Lipitor) 10 mg QHS PO Last administered on 10/16/16 20: 41; Admin Dose 10 MG; Start 09/28/16 at 21:00 Furosemide (Lasix) 40 mg DAILY PO Last administered on 10/17/16 08:24; Admin Dose 40 MG; Start 09/29/16 at 09:00 Tiotropium [place] (Spiriva) 1 inh DAILY INH ; Start 09/28/16 at 16:00; Status Future Hold Mupirocin (Bactroban) 1 applic BID TOP Last administered on 10/16/16 20:45; Admin Dose 1 APPLIC; Start 09/30/16 at 09:00 Diagnostic Test (Pha) (Accucheck) 1 ea 02 XX ; Start 10/05/16 at 02:00 Miscellaneous Information 1 ea NOTE XX ; Start 10/04/16 at 09:00 Glucose (Glutose) 15 gm Q15M PRN PO DECREASED GLUCOSE; Start 10/04/16 at 09:00 Glucose (Glutose) 22.5 gm Q15M PRN PO DECREASED GLUCOSE; Start 10/04/16 at 09: 00 Dextrose (D50w Syringe) 25 ml Q15M PRN IV DECREASED GLUCOSE; Start 10/04/16 at 09:00 Dextrose (D50w Syringe) 50 ml Q15M PRN IV DECREASED GLUCOSE; Start 10/04/16 at 09:00 Glucagon (Glucagen) 1 mg Q15M PRN IM DECREASED GLUCOSE; Start 10/04/16 at 09:00 Glucose (Glutose) 15 gm Q15M PRN BUCCAL DECREASED GLUCOSE; Start 10/04/16 at 09 :00 Metoprolol Tartrate (Lopressor) 5 mg Q4 PRN IV HR>110 Hold SBP<100; Start 10/05 at 19:30 Metoprolol Succinate (Toprol Xl) 75 mg HS PO Last administered on 10/16/16 20: 42; Admin Dose 75 MG; Start 10/08/16 at 21:00 Metoprolol Succinate (Toprol Xl) 75 mg DAILY PO Last administered on 10/17/16 08:23; Admin Dose 75 MG; Start 10/09/16 at 09:00 Amiodarone HCl (Cordarone) 200 mg BID PO Last administered on 10/17/16 08:24; Admin Dose 200 MG; Start 10/09/16 at 21:00 Insulin Glargine (Lantus) 15 unit HS SC Last administered on 10/16/16 20:45; Admin Dose 15 UNIT; Start 10/10/16 at 21:00 Montelukast Sodium (Singulair) 10 mg HS PO Last administered on 10/16/16 20:41 ; Admin Dose 10 MG; Start 10/10/16 at 21:00 Theophylline (Benji-24) 300 mg QHS PO Last administered on 10/16/16 20:41; Admin Dose 300 MG; Start 10/10/16 at 21:00 Apixaban (Eliquis) 5 mg BID PO Last administered on 10/17/16 08:24; Admin Dose 5 MG; Start 10/10/16 at 21:00 Digoxin (Digoxin) 0.125 mg DAILY@13 PO Last administered on 10/17/16 12:10; Admin Dose 0.125 MG; Start 10/12/16 at 13:00 Lisinopril (Zestril) 20 mg DAILY PO Last administered on 10/17/16 09:25; Admin Dose 20 MG; Start 10/12/16 at 09:00 Prednisone (Prednisone) 15 mg DAILY PO Last administered on 10/17/16 08:23; Admin Dose 15 MG; Start 10/12/16 at 09:00 СВЕТЛАНА PADRON Oct 17, 2016 14:50
[2016-10-17] MEDS: predniSONE 2.5 MG TAB PO SCH (17:38)
[2016-10-17 20:34] VITALS: BP 122/69; RESP 20
[2016-10-17] MEDS: THEOPHYLLINE (SR) 300 MG CAP PO SCH (20:39)
[2016-10-17] MEDS: MONTELUKAST 10 MG TAB PO SCH (20:39)
[2016-10-17] MEDS: ATORVASTATIN 10 MG TAB PO SCH (20:39)
[2016-10-17] MEDS: INSULIN GLARGINE [LANtus] 3 ML PEN SC SCH (20:43)
[2016-10-18] MEDS: ALBUTEROL/IPRATROPIUM (NEB) 3 ML AMP HHN SCH ×4 (02:27→20:59)
[2016-10-18] MEDS: ACCU-CHEK XX SCH (02:41)
[2016-10-18] MEDS: FUROSEMIDE 40 MG TAB PO SCH ×2 (05:41→17:28)
[2016-10-18 08:00] VITALS: BP 127/69; RESP 22
[2016-10-18] MEDS: INSULIN ASPART [NOVOLOG] 3 ML PEN SC SCH ×7 (08:00→20:14)
--- NOTE | 2016-10-18 08:42 | RADRPT ---
PROCEDURE: US Lower extremity Venous. CLINICAL INDICATION: Left leg swelling TECHNIQUE: Multiple sonographic images of the left lower extremity deep venous system was obtained utilizing grayscale, color-flow, compressive sonography and doppler imaging with augmentation. The images were reviewed on a PACS workstation. COMPARISON: None. FINDINGS: There is normal compressibility and flow within the left common femoral, deep femoral, superficial f emoral and popliteal veins. The deep veins the calf were incompletely visualized. IMPRESSION: No sonographic evidence for deep venous thrombosis. .Price Lundy MD, MD Date Time Electronically viewed and signed by .Price Lundy MD, on 10/18/2016 08:42 .A/
[2016-10-18] MEDS: ASPIRIN 81 MG TAB PO SCH (09:07)
[2016-10-18] MEDS: AMIODARONE 200 MG TAB PO SCH ×2 (09:08→20:11)
[2016-10-18] MEDS: predniSONE 5 MG TAB PO SCH (09:08)
[2016-10-18] MEDS: APIXABAN 5 MG TABLET PO SCH ×2 (09:08→20:10)
[2016-10-18] MEDS: FAMOTIDINE 20 MG TAB PO SCH ×2 (09:08→20:10)
[2016-10-18] MEDS: METOPROLOL (XL) 25 MG TAB PO SCH ×2 (09:09→20:12)
[2016-10-18] MEDS: LISINOPRIL 5 MG TAB PO SCH (09:10)
[2016-10-18] MEDS: MUPIROCIN 2% 22 GM OINT TOP SCH ×2 (09:10→20:15)
[2016-10-18] MEDS: DIGOXIN 0.125 MG TAB PO SCH (12:29)
--- NOTE | 2016-10-18 12:32 | PN ---
Date/Time of Note Date/Time of Note DATE: 10/18/16 TIME: 12:31 Assessment/Plan VTE Prophylaxis VTE Prophylaxis Intervention: SCD's Lines/Catheters Urinary Cath still in place: No Assessment/Plan Assessment/Plan 1. Acute on chronic hypoxemic respiratory failure secondary to chronic obstructive pulmonary disease exacerbation and questionable healthcare- associated pneumonia. 2. S/p Urinary tract infection. 3. Congestive heart failure. 4. Ischemic cardiomyopathy with a history of automatic implantable cardioverter defibrillator. 5. History of coronary artery stenting. 6. Methicillin-resistant Staphylococcus aureus nares colonization. 7. A fib plan; off abx Breathing Rx awaiting placement Subjective 24 Hr Interval Summary Free Text/Dictation NO ACUTE EVENTS, no SOB, BP stable Exam/Review of Systems Vital Signs Vitals Vital Signs Date Time Temp Pulse Resp B/P Pulse Ox O2 Delivery O2 Flow Rate FiO2 10/18/16 10:18 67 18 95 Nasal Cannula 2.0 10/18/16 08:00 97.8 127/69 Intake and Output 10/17/16 10/17/16 10/18/16 14:59 22:59 06:59 Intake Total 1540 ml 1200 ml Balance 1540 ml 1200 ml Exam Constitutional: alert, oriented Psych: no complaints Head: normocephalic ENMT: mucosa pink and moist Neck: jvd (8-9 cm water), supple Respiratory: diminished breath sounds (at bases/B) Cardiovascular: regular rate and rhythm Gastrointestinal: non-tender, soft Musculoskeletal: muscle tone (normal) Extremities: edema (trace/B) Neurological: other (No focal deficits) Results Results 24 hrs Laboratory Tests Test 10/17/16 16:59 10/17/16 20:37 10/18/16 02:32 10/18/16 08:07 Bedside Glucose 129 201 137 90 Test 10/18/16 11:37 Bedside Glucose 102 Medications Medications Current Medications IV Flush (NS 10 ml) 10 ml PRN PRN IV IV PROTOCOL; Start 09/28/16 at 14:00 Ondansetron HCl (Zofran Inj) 4 mg Q6H PRN IV NAUSEA AND/OR VOMITING; Start at 15:00 Nitroglycerin (Nitroglycerin (Sl Tab) 0.4 Mg) 1 tab Q5M PRN SL CHEST PAIN; Start 09/28/16 at 15:00 Acetaminophen (Tylenol Liquid) 650 mg Q6H PRN PO PAIN LEVEL 1-3 OR FEVER; Start 09/28/16 at 15:00 Acetaminophen (Tylenol Tab) 650 mg Q6H PRN PO PAIN LEVEL 1-3 OR FEVER; Start at 15:00 Morphine Sulfate (morphine) 2 mg Q4H PRN IV PAIN LEVEL 7-10 Last administered on 09/29/16 02:30; Admin Dose 2 MG; Start 09/28/16 at 15:00 Lorazepam (Ativan) 1 mg Q2H PRN IV ANXIETY; Start 09/28/16 at 15:00 Docusate Sodium (Colace) 100 mg Q12H PRN PO CONSTIPATION; Start 09/28/16 at 15: 00 Famotidine (Pepcid) 20 mg Q12 PO Last administered on 10/18/16 09:08; Admin Dose 20 MG; Start 09/28/16 at 21:00 Aspirin (Aspirin) 81 mg DAILY PO Last administered on 10/18/16 09:07; Admin Dose 81 MG; Start 09/29/16 at 09:00 Atorvastatin Calcium (Lipitor) 10 mg QHS PO Last administered on 10/17/16 20: 39; Admin Dose 10 MG; Start 09/28/16 at 21:00 Tiotropium [place] (Spiriva) 1 inh DAILY INH ; Start 09/28/16 at 16:00; Status Future Hold Mupirocin (Bactroban) 1 applic BID TOP Last administered on 10/18/16 09:10; Admin Dose 1 APPLIC; Start 09/30/16 at 09:00 Diagnostic Test (Pha) (Accucheck) 1 ea 02 XX Last administered on 10/18/16 02: 41; Admin Dose 1 EA; Start 10/05/16 at 02:00 Miscellaneous Information 1 ea NOTE XX ; Start 10/04/16 at 09:00 Glucose (Glutose) 15 gm Q15M PRN PO DECREASED GLUCOSE; Start 10/04/16 at 09:00 Glucose (Glutose) 22.5 gm Q15M PRN PO DECREASED GLUCOSE; Start 10/04/16 at 09: 00 Dextrose (D50w Syringe) 25 ml Q15M PRN IV DECREASED GLUCOSE; Start 10/04/16 at 09:00 Dextrose (D50w Syringe) 50 ml Q15M PRN IV DECREASED GLUCOSE; Start 10/04/16 at 09:00 Glucagon (Glucagen) 1 mg Q15M PRN IM DECREASED GLUCOSE; Start 10/04/16 at 09:00 Glucose (Glutose) 15 gm Q15M PRN BUCCAL DECREASED GLUCOSE; Start 10/04/16 at 09 :00 Metoprolol Tartrate (Lopressor) 5 mg Q4 PRN IV HR>110 Hold SBP<100; Start 10/05 at 19:30 Metoprolol Succinate (Toprol Xl) 75 mg HS PO Last administered on 10/17/16 20: 40; Admin Dose 75 MG; Start 10/08/16 at 21:00 Metoprolol Succinate (Toprol Xl) 75 mg DAILY PO Last administered on 10/18/16 09:09; Admin Dose 75 MG; Start 10/09/16 at 09:00 Amiodarone HCl (Cordarone) 200 mg BID PO Last administered on 10/18/16 09:08; Admin Dose 200 MG; Start 10/09/16 at 21:00 Insulin Glargine (Lantus) 15 unit HS SC Last administered on 10/17/16 20:43; Admin Dose 15 UNIT; Start 10/10/16 at 21:00 Montelukast Sodium (Singulair) 10 mg HS PO Last administered on 10/17/16 20:39 ; Admin Dose 10 MG; Start 10/10/16 at 21:00 Theophylline (Benji-24) 300 mg QHS PO Last administered on 10/17/16 20:39; Admin Dose 300 MG; Start 10/10/16 at 21:00 Apixaban (Eliquis) 5 mg BID PO Last administered on 10/18/16 09:08; Admin Dose 5 MG; Start 10/10/16 at 21:00 Digoxin (Digoxin) 0.125 mg DAILY@13 PO Last administered on 10/17/16 12:10; Admin Dose 0.125 MG; Start 10/12/16 at 13:00 Lisinopril (Zestril) 20 mg DAILY PO Last administered on 10/18/16 09:10; Admin Dose 20 MG; Start 10/12/16 at 09:00 Prednisone (Prednisone) 15 mg DAILY PO Last administered on 10/18/16 09:08; Admin Dose 15 MG; Start 10/12/16 at 09:00 GIULIA KOO MD Oct 18, 2016 12:32
--- NOTE | 2016-10-18 14:00 | CONS ---
Date/Time of Note Date/Time of Note DATE: 10/18/16 TIME: 13:57 Assessment/Plan Assessment/Plan Chief Complaint/Hosp Course IMPRESSION: 1. Atrial fibrillation with rapid ventricular response.-improved HR and now in SR 2. Congestive heart failure, systolic, acute on chronic. 3. History of cardiomyopathy with decreased left ventricular ejection fraction 20% to 25% per chart biopsy. 4. Shortness of breath. 5. Status post hypercapnic respiratory failure, status post extubation. 6. Chronic obstructive pulmonary disease. 7. Hypertension. 8. Dyslipidemia. 9. History of automatic implantable cardioverter-defibrillator with possible discharge.-s/p interrogation with ICD shock for uncontrolled rapid AF. 10. Pneumonia. 11.Positive troponin-minimal with no sig uptrend Recc -Tele -serial ecg's -Continue asa/Eliquis -Continue BB/digoxin -Continue ACEI -Continue statin -Continue amiodarone BID for now -Follow volume status with lasix diuresis increased -awaiting placement Problems: Consultation Date/Type/Reason Admit Date/Time Sep 28, 2016 at 14:41 Initial Consult Date 09/28/16 Type of Consultation: cardiology Reason for Consultation CHF/AF Referring Provider: DEVON MUHAMMAD MD Exam/Review of Systems Vital Signs Vitals Vital Signs Date Time Temp Pulse Resp B/P Pulse Ox O2 Delivery O2 Flow Rate FiO2 10/18/16 10:18 67 18 95 Nasal Cannula 2.0 10/18/16 08:00 97.8 127/69 Intake and Output 10/17/16 10/17/16 10/18/16 15:00 23:00 07:00 Intake Total 1540 ml 1200 ml Balance 1540 ml 1200 ml Exam Review of Systems: CONSTITUTIONAL: No fevers, chills. PULMONARY: mild sob CARDIOVASCULAR: No chest pain/palpitations GASTROINTESTINAL: No nausea/vomiting. GENITOURINARY: No hematuria/dysuria. MUSCULOSKELETAL: No myagias/arthalgias. PSYCHIATRIC: The patient denies depression. NEUROLOGIC: No weakness Constitutional: alert, oriented Psych: no complaints Head: normocephalic Eyes: nl sclera ENMT: mucosa pink and moist Neck: jvd (9 cm water) Respiratory: diminished breath sounds (at bases/B) Cardiovascular: regular rate and rhythm Gastrointestinal: non-tender, soft Musculoskeletal: muscle tone (normal) Extremities: other (RLE covered ), pitting pedal edema (LE) Results Results 24 hrs Laboratory Tests Test 10/17/16 16:59 10/17/16 20:37 10/18/16 02:32 10/18/16 08:07 Bedside Glucose 129 201 137 90 Test 10/18/16 11:37 Bedside Glucose 102 Medications Medications Current Medications IV Flush (NS 10 ml) 10 ml PRN PRN IV IV PROTOCOL; Start 09/28/16 at 14:00 Ondansetron HCl (Zofran Inj) 4 mg Q6H PRN IV NAUSEA AND/OR VOMITING; Start at 15:00 Nitroglycerin (Nitroglycerin (Sl Tab) 0.4 Mg) 1 tab Q5M PRN SL CHEST PAIN; Start 09/28/16 at 15:00 Acetaminophen (Tylenol Liquid) 650 mg Q6H PRN PO PAIN LEVEL 1-3 OR FEVER; Start 09/28/16 at 15:00 Acetaminophen (Tylenol Tab) 650 mg Q6H PRN PO PAIN LEVEL 1-3 OR FEVER; Start at 15:00 Morphine Sulfate (morphine) 2 mg Q4H PRN IV PAIN LEVEL 7-10 Last administered on 09/29/16 02:30; Admin Dose 2 MG; Start 09/28/16 at 15:00 Lorazepam (Ativan) 1 mg Q2H PRN IV ANXIETY; Start 09/28/16 at 15:00 Docusate Sodium (Colace) 100 mg Q12H PRN PO CONSTIPATION; Start 09/28/16 at 15: 00 Famotidine (Pepcid) 20 mg Q12 PO Last administered on 10/18/16 09:08; Admin Dose 20 MG; Start 09/28/16 at 21:00 Aspirin (Aspirin) 81 mg DAILY PO Last administered on 10/18/16 09:07; Admin Dose 81 MG; Start 09/29/16 at 09:00 Atorvastatin Calcium (Lipitor) 10 mg QHS PO Last administered on 10/17/16 20: 39; Admin Dose 10 MG; Start 09/28/16 at 21:00 Tiotropium [place] (Spiriva) 1 inh DAILY INH ; Start 09/28/16 at 16:00; Status Future Hold Mupirocin (Bactroban) 1 applic BID TOP Last administered on 10/18/16 09:10; Admin Dose 1 APPLIC; Start 09/30/16 at 09:00 Diagnostic Test (Pha) (Accucheck) 1 ea 02 XX Last administered on 10/18/16 02: 41; Admin Dose 1 EA; Start 10/05/16 at 02:00 Miscellaneous Information 1 ea NOTE XX ; Start 10/04/16 at 09:00 Glucose (Glutose) 15 gm Q15M PRN PO DECREASED GLUCOSE; Start 10/04/16 at 09:00 Glucose (Glutose) 22.5 gm Q15M PRN PO DECREASED GLUCOSE; Start 10/04/16 at 09: 00 Dextrose (D50w Syringe) 25 ml Q15M PRN IV DECREASED GLUCOSE; Start 10/04/16 at 09:00 Dextrose (D50w Syringe) 50 ml Q15M PRN IV DECREASED GLUCOSE; Start 10/04/16 at 09:00 Glucagon (Glucagen) 1 mg Q15M PRN IM DECREASED GLUCOSE; Start 10/04/16 at 09:00 Glucose (Glutose) 15 gm Q15M PRN BUCCAL DECREASED GLUCOSE; Start 10/04/16 at 09 :00 Metoprolol Tartrate (Lopressor) 5 mg Q4 PRN IV HR>110 Hold SBP<100; Start 10/05 at 19:30 Metoprolol Succinate (Toprol Xl) 75 mg HS PO Last administered on 10/17/16 20: 40; Admin Dose 75 MG; Start 10/08/16 at 21:00 Metoprolol Succinate (Toprol Xl) 75 mg DAILY PO Last administered on 10/18/16 09:09; Admin Dose 75 MG; Start 10/09/16 at 09:00 Amiodarone HCl (Cordarone) 200 mg BID PO Last administered on 10/18/16 09:08; Admin Dose 200 MG; Start 10/09/16 at 21:00 Insulin Glargine (Lantus) 15 unit HS SC Last administered on 10/17/16 20:43; Admin Dose 15 UNIT; Start 10/10/16 at 21:00 Montelukast Sodium (Singulair) 10 mg HS PO Last administered on 10/17/16 20:39 ; Admin Dose 10 MG; Start 10/10/16 at 21:00 Theophylline (Benji-24) 300 mg QHS PO Last administered on 10/17/16 20:39; Admin Dose 300 MG; Start 10/10/16 at 21:00 Apixaban (Eliquis) 5 mg BID PO Last administered on 10/18/16 09:08; Admin Dose 5 MG; Start 10/10/16 at 21:00 Digoxin (Digoxin) 0.125 mg DAILY@13 PO Last administered on 10/17/16 12:10; Admin Dose 0.125 MG; Start 10/12/16 at 13:00 Lisinopril (Zestril) 20 mg DAILY PO Last administered on 10/18/16 09:10; Admin Dose 20 MG; Start 10/12/16 at 09:00 Prednisone (Prednisone) 15 mg DAILY PO Last administered on 10/18/16 09:08; Admin Dose 15 MG; Start 10/12/16 at 09:00 СВЕТЛАНА PADRON Oct 18, 2016 14:00
[2016-10-18 17:20] VITALS: BP 108/67; PULSE 61; RESP 18
[2016-10-18] MEDS: predniSONE 2.5 MG TAB PO SCH (17:27)
[2016-10-18] MEDS: THEOPHYLLINE (SR) 300 MG CAP PO SCH (20:10)
[2016-10-18] MEDS: MONTELUKAST 10 MG TAB PO SCH (20:10)
[2016-10-18] MEDS: ATORVASTATIN 10 MG TAB PO SCH (20:10)
[2016-10-18] MEDS: INSULIN GLARGINE [LANtus] 3 ML PEN SC SCH (20:13)
[2016-10-18 20:25] VITALS: BP 109/64; RESP 20
[2016-10-18 22:06] VITALS: BP 133/69; PULSE 78
[2016-10-19] MEDS: ALBUTEROL/IPRATROPIUM (NEB) 3 ML AMP HHN SCH ×4 (01:31→19:14)
[2016-10-19] MEDS: ACCU-CHEK XX SCH (02:03)
[2016-10-19] MEDS: FUROSEMIDE 40 MG TAB PO SCH ×2 (05:29→17:28)
[2016-10-19 05:30] VITALS: BP 133/71; PULSE 62
[2016-10-19] MEDS: INSULIN ASPART [NOVOLOG] 3 ML PEN SC SCH ×7 (08:00→21:47)
[2016-10-19 09:44] VITALS: BP 117/68; RESP 18
[2016-10-19] MEDS: ASPIRIN 81 MG TAB PO SCH (09:47)
[2016-10-19] MEDS: predniSONE 5 MG TAB PO SCH (09:48)
[2016-10-19] MEDS: METOPROLOL (XL) 25 MG TAB PO SCH ×2 (09:48→21:00)
[2016-10-19] MEDS: AMIODARONE 200 MG TAB PO SCH ×2 (09:49→21:00)
[2016-10-19] MEDS: LISINOPRIL 5 MG TAB PO SCH (09:49)
[2016-10-19] MEDS: FAMOTIDINE 20 MG TAB PO SCH ×2 (09:49→21:35)
[2016-10-19] MEDS: APIXABAN 5 MG TABLET PO SCH ×2 (09:56→21:35)
[2016-10-19] MEDS: MUPIROCIN 2% 22 GM OINT TOP SCH ×2 (09:56→21:37)
[2016-10-19 10:05] LABS: BASOPHILS % 0.4 % (0.0-2.0); EOSINOPHILS # 0.1 10^3/ul (0.0-0.5); EOSINOPHILS % 1.6 % (0.0-7.0); HEMOGLOBIN 10.3 g/dl (14.0-18.0); LYMPHOCYTES # 0.9 10^3/ul (0.8-2.9); LYMPHOCYTES % 10.1 % (15.0-51.0); MEAN CORPUSCULAR HEMOGLOBIN 33.3 pg (29.0-33.0); MEAN CORPUSCULAR HGB CONC 33.4 g/dl (32.0-37.0); MEAN CORPUSCULAR VOLUME 99.8 fl (82.0-101.0); MEAN PLATELET VOLUME 7.3 fl (7.4-10.4); MONOCYTE # 0.4 10^3/ul (0.3-0.9); MONOCYTES % 5.2 % (0.0-11.0); NEUTROPHIL # 7.2 10^3/ul (1.6-7.5); NEUTROPHILS % 82.7 % (39.0-77.0); PLATELET COUNT 251 10^3/UL (140-440); RED CELL DISTRIBUTION WIDTH 15.8 % (11.5-14.5); UNCORRECTED WBC 8.7 10^3/ul (4.8-10.8); WHITE BLOOD COUNT 8.7 10^3/ul (4.8-10.8)
[2016-10-19 10:14] LABS: INR 1.11; PROTIME 14.3 Sec (12.2-14.2); PT RATIO 1.1
[2016-10-19 10:15] LABS: PARTIAL THROMBOPLASTIN TIME 27.4 Sec (25.0-35.0); POTASSIUM 3.5 mmol/L (3.5-5.1)
[2016-10-19 10:18] LABS: CREATININE 0.95 mg/dl (0.61-1.24)
[2016-10-19 10:19] LABS: CALCIUM 9.8 mg/dl (8.4-10.2)
[2016-10-19 10:21] LABS: CONDITION 1; LH ANALYZER COMMENTS 1
--- NOTE | 2016-10-19 12:33 | CONS ---
Date/Time of Note Date/Time of Note DATE: 10/19/16 TIME: 12:31 Assessment/Plan Assessment/Plan Chief Complaint/Hosp Course IMPRESSION: 1. Atrial fibrillation with rapid ventricular response.-improved HR and now in SR 2. Congestive heart failure, systolic, acute on chronic. 3. History of cardiomyopathy with decreased left ventricular ejection fraction 20% to 25% per chart biopsy. 4. Shortness of breath. 5. Status post hypercapnic respiratory failure, status post extubation. 6. Chronic obstructive pulmonary disease. 7. Hypertension. 8. Dyslipidemia. 9. History of automatic implantable cardioverter-defibrillator with possible discharge.-s/p interrogation with ICD shock for uncontrolled rapid AF. 10. Pneumonia. 11.Positive troponin-minimal with no sig uptrend Recc -Tele -serial ecg's -Continue asa/Eliquis -Continue BB/digoxin -Continue ACEI -Continue statin -Continue amiodarone BID for now -Follow volume status with lasix diuresis increased -awaiting placement Problems: Consultation Date/Type/Reason Admit Date/Time Sep 28, 2016 at 14:41 Initial Consult Date 09/28/16 Type of Consultation: cardiology Reason for Consultation AF/CHF/ICD Referring Provider: DEVON MUHAMMAD MD Exam/Review of Systems Vital Signs Vitals Vital Signs Date Time Temp Pulse Resp B/P Pulse Ox O2 Delivery O2 Flow Rate FiO2 10/19/16 11:12 Nasal Cannula 2.0 10/19/16 09:44 97.9 59 18 117/68 94 Intake and Output 10/18/16 10/18/16 10/19/16 15:00 23:00 07:00 Intake Total 920 ml 720 ml Balance 920 ml 720 ml Exam Review of Systems: CONSTITUTIONAL: No fevers, chills. PULMONARY: No sob CARDIOVASCULAR: No chest pain/palpitations GASTROINTESTINAL: No nausea/vomiting. GENITOURINARY: No hematuria/dysuria. MUSCULOSKELETAL: No myagias/arthalgias. PSYCHIATRIC: The patient denies depression. NEUROLOGIC: No weakness Constitutional: alert, oriented Psych: no complaints Head: normocephalic ENMT: mucosa pink and moist Neck: jvd (9 cm water), supple Respiratory: diminished breath sounds (at bases/B) Cardiovascular: regular rate and rhythm Gastrointestinal: non-tender, soft Musculoskeletal: muscle tone (normal) Extremities: edema (none) Neurological: other (No focal deficits) Results Result Diagram: 10/19/16 0930 10/19/16 0938 Results 24 hrs Laboratory Tests Test 10/18/16 16:27 10/18/16 20:05 10/19/16 01:53 10/19/16 07:39 Bedside Glucose 136 212 90 78 Test 10/19/16 09:30 10/19/16 09:38 Basophils # 0.0 Basophils % 0.4 Blood Morphology Comment Eosinophils # 0.1 Eosinophils % 1.6 Hematocrit 31.0 L Hemoglobin 10.3 L Lymphocytes # 0.9 Lymphocytes % 10.1 L Mean Corpuscular Hemoglobin 33.3 H Mean Corpuscular Hemoglobin Concent 33.4 Mean Corpuscular Volume 99.8 Mean Platelet Volume 7.3 L Monocytes # 0.4 Monocytes % 5.2 Neutrophils # 7.2 Neutrophils % 82.7 H Nucleated Red Blood Cells # 0.0 Nucleated Red Blood Cells % 0.0 Platelet Count 251 Red Blood Count 3.10 L Red Cell Distribution Width 15.8 H White Blood Count 8.7 # Activated Partial Thromboplast Time 27.4 Anion Gap 12 Blood Urea Nitrogen 31 H Calcium Level 9.8 Carbon Dioxide Level 46 *H Chloride Level 90 L Creatinine 0.95 Glucose Level 110 INR International Normalized Ratio 1.11 Potassium Level 3.5 Prothrombin Time 14.3 H Prothrombin Time Ratio 1.1 Sodium Level 144 Medications Medications Current Medications IV Flush (NS 10 ml) 10 ml PRN PRN IV IV PROTOCOL; Start 09/28/16 at 14:00 Ondansetron HCl (Zofran Inj) 4 mg Q6H PRN IV NAUSEA AND/OR VOMITING; Start at 15:00 Nitroglycerin (Nitroglycerin (Sl Tab) 0.4 Mg) 1 tab Q5M PRN SL CHEST PAIN; Start 09/28/16 at 15:00 Acetaminophen (Tylenol Liquid) 650 mg Q6H PRN PO PAIN LEVEL 1-3 OR FEVER; Start 09/28/16 at 15:00 Acetaminophen (Tylenol Tab) 650 mg Q6H PRN PO PAIN LEVEL 1-3 OR FEVER; Start at 15:00 Morphine Sulfate (morphine) 2 mg Q4H PRN IV PAIN LEVEL 7-10 Last administered on 09/29/16t 02:30; Admin Dose 2 MG; Start 09/28/16 at 15:00 Lorazepam (Ativan) 1 mg Q2H PRN IV ANXIETY; Start 09/28/16 at 15:00 Docusate Sodium (Colace) 100 mg Q12H PRN PO CONSTIPATION; Start 09/28/16 at 15: 00 Famotidine (Pepcid) 20 mg Q12 PO Last administered on 10/19/16 09:49; Admin Dose 20 MG; Start 09/28/16 at 21:00 Aspirin (Aspirin) 81 mg DAILY PO Last administered on 10/19/16 09:47; Admin Dose 81 MG; Start 09/29/16 at 09:00 Atorvastatin Calcium (Lipitor) 10 mg QHS PO Last administered on 10/18/16 20: 10; Admin Dose 10 MG; Start 09/28/16 at 21:00 Tiotropium [place] (Spiriva) 1 inh DAILY INH ; Start 09/28/16 at 16:00; Status Future Hold Mupirocin (Bactroban) 1 applic BID TOP Last administered on 10/19/16 09:56; Admin Dose 1 APPLIC; Start 09/30/16 at 09:00 Diagnostic Test (Pha) (Accucheck) 1 ea 02 XX Last administered on 10/19/16 02: 03; Admin Dose 1 EA; Start 10/05/16 at 02:00 Miscellaneous Information 1 ea NOTE XX ; Start 10/04/16 at 09:00 Glucose (Glutose) 15 gm Q15M PRN PO DECREASED GLUCOSE; Start 10/04/16 at 09:00 Glucose (Glutose) 22.5 gm Q15M PRN PO DECREASED GLUCOSE; Start 10/04/16 at 09: 00 Dextrose (D50w Syringe) 25 ml Q15M PRN IV DECREASED GLUCOSE; Start 10/04/16 at 09:00 Dextrose (D50w Syringe) 50 ml Q15M PRN IV DECREASED GLUCOSE; Start 10/04/16 at 09:00 Glucagon (Glucagen) 1 mg Q15M PRN IM DECREASED GLUCOSE; Start 10/04/16 at 09:00 Glucose (Glutose) 15 gm Q15M PRN BUCCAL DECREASED GLUCOSE; Start 10/04/16 at 09 :00 Metoprolol Tartrate (Lopressor) 5 mg Q4 PRN IV HR>110 Hold SBP<100; Start 10/05 at 19:30 Metoprolol Succinate (Toprol Xl) 75 mg HS PO Last administered on 10/18/16 20: 12; Admin Dose 75 MG; Start 10/08/16 at 21:00 Metoprolol Succinate (Toprol Xl) 75 mg DAILY PO Last administered on 10/19/16 09:48; Admin Dose 75 MG; Start 10/09/16 at 09:00 Amiodarone HCl (Cordarone) 200 mg BID PO Last administered on 10/19/16 09:49; Admin Dose 200 MG; Start 10/09/16 at 21:00 Insulin Glargine (Lantus) 15 unit HS SC Last administered on 10/18/16 20:13; Admin Dose 15 UNIT; Start 10/10/16 at 21:00 Montelukast Sodium (Singulair) 10 mg HS PO Last administered on 10/18/16 20:10 ; Admin Dose 10 MG; Start 10/10/16 at 21:00 Theophylline (Benji-24) 300 mg QHS PO Last administered on 10/18/16 20:10; Admin Dose 300 MG; Start 10/10/16 at 21:00 Apixaban (Eliquis) 5 mg BID PO Last administered on 10/19/16 09:56; Admin Dose 5 MG; Start 10/10/16 at 21:00 Digoxin (Digoxin) 0.125 mg DAILY@13 PO Last administered on 10/17/16 12:10; Admin Dose 0.125 MG; Start 10/12/16 at 13:00 Lisinopril (Zestril) 20 mg DAILY PO Last administered on 10/19/16 09:49; Admin Dose 20 MG; Start 10/12/16 at 09:00 Prednisone (Prednisone) 15 mg DAILY PO Last administered on 10/19/16 09:48; Admin Dose 15 MG; Start 10/12/16 at 09:00 СВЕТЛАНА PADRON Oct 19, 2016 12:33
[2016-10-19] MEDS: DIGOXIN 0.125 MG TAB PO SCH (13:23)
--- NOTE | 2016-10-19 17:14 | PN ---
Date/Time of Note Date/Time of Note DATE: 10/19/16 TIME: 17:12 Assessment/Plan VTE Prophylaxis VTE Prophylaxis Intervention: other Lines/Catheters Urinary Cath still in place: No Assessment/Plan Chief Complaint/Hosp Course 1. Acute on chronic hypoxemic respiratory failure secondary to chronic obstructive pulmonary disease exacerbation and questionable healthcare- associated pneumonia -off Abx, cont Steroid 2. S/p Urinary tract infection. 3. Congestive heart failure. 4. Ischemic cardiomyopathy with a history of automatic implantable cardioverter defibrillator. 5. History of coronary artery stenting. 6. Methicillin-resistant Staphylococcus aureus nares colonization. 7. A fib Dispo- awaiting placement PPx Eliquis Problems: Subjective 24 Hr Interval Summary Constitutional: no complaints Exam/Review of Systems Vital Signs Vitals Vital Signs Date Time Temp Pulse Resp B/P Pulse Ox O2 Delivery O2 Flow Rate FiO2 10/19/16 14:22 2.0 10/19/16 14:22 68 18 95 Nasal Cannula 10/19/16 09:44 97.9 117/68 Intake and Output 10/18/16 10/18/16 10/19/16 15:00 23:00 07:00 Intake Total 920 ml 720 ml Balance 920 ml 720 ml Exam Constitutional: alert Respiratory: clear to auscultation Cardiovascular: regular rate and rhythm Gastrointestinal: soft, No distended Musculoskeletal: No nl extremities to inspection Results Result Diagram: 10/19/16 0930 10/19/16 0938 Results 24 hrs Laboratory Tests Test 10/18/16 20:05 10/19/16 01:53 10/19/16 07:39 10/19/16 09:30 Bedside Glucose 212 90 78 Basophils # 0.0 Basophils % 0.4 Blood Morphology Comment Eosinophils # 0.1 Eosinophils % 1.6 Hematocrit 31.0 L Hemoglobin 10.3 L Lymphocytes # 0.9 Lymphocytes % 10.1 L Mean Corpuscular Hemoglobin 33.3 H Mean Corpuscular Hemoglobin Concent 33.4 Mean Corpuscular Volume 99.8 Mean Platelet Volume 7.3 L Monocytes # 0.4 Monocytes % 5.2 Neutrophils # 7.2 Neutrophils % 82.7 H Nucleated Red Blood Cells # 0.0 Nucleated Red Blood Cells % 0.0 Platelet Count 251 Red Blood Count 3.10 L Red Cell Distribution Width 15.8 H White Blood Count 8.7 # Test 10/19/16 09:38 10/19/16 13:18 Activated Partial Thromboplast Time 27.4 Anion Gap 12 Blood Urea Nitrogen 31 H Calcium Level 9.8 Carbon Dioxide Level 46 *H Chloride Level 90 L Creatinine 0.95 Glucose Level 110 INR International Normalized Ratio 1.11 Potassium Level 3.5 Prothrombin Time 14.3 H Prothrombin Time Ratio 1.1 Sodium Level 144 Bedside Glucose 227 H Medications Medications Current Medications IV Flush (NS 10 ml) 10 ml PRN PRN IV IV PROTOCOL; Start 09/28/16 at 14:00 Ondansetron HCl (Zofran Inj) 4 mg Q6H PRN IV NAUSEA AND/OR VOMITING; Start at 15:00 Nitroglycerin (Nitroglycerin (Sl Tab) 0.4 Mg) 1 tab Q5M PRN SL CHEST PAIN; Start 09/28/16 at 15:00 Acetaminophen (Tylenol Liquid) 650 mg Q6H PRN PO PAIN LEVEL 1-3 OR FEVER; Start 09/28/16 at 15:00 Acetaminophen (Tylenol Tab) 650 mg Q6H PRN PO PAIN LEVEL 1-3 OR FEVER; Start at 15:00 Morphine Sulfate (morphine) 2 mg Q4H PRN IV PAIN LEVEL 7-10 Last administered on 09/29/16 02:30; Admin Dose 2 MG; Start 09/28/16 at 15:00 Lorazepam (Ativan) 1 mg Q2H PRN IV ANXIETY; Start 09/28/16 at 15:00 Docusate Sodium (Colace) 100 mg Q12H PRN PO CONSTIPATION; Start 09/28/16 at 15: 00 Famotidine (Pepcid) 20 mg Q12 PO Last administered on 10/19/16 09:49; Admin Dose 20 MG; Start 09/28/16 at 21:00 Aspirin (Aspirin) 81 mg DAILY PO Last administered on 10/19/16 09:47; Admin Dose 81 MG; Start 09/29/16 at 09:00 Atorvastatin Calcium (Lipitor) 10 mg QHS PO Last administered on 10/18/16 20: 10; Admin Dose 10 MG; Start 09/28/16 at 21:00 Tiotropium [place] (Spiriva) 1 inh DAILY INH ; Start 09/28/16 at 16:00; Status Future Hold Mupirocin (Bactroban) 1 applic BID TOP Last administered on 10/19/16 09:56; Admin Dose 1 APPLIC; Start 09/30/16 at 09:00 Diagnostic Test (Pha) (Accucheck) 1 ea 02 XX Last administered on 10/19/16 02: 03; Admin Dose 1 EA; Start 10/05/16 at 02:00 Miscellaneous Information 1 ea NOTE XX ; Start 10/04/16 at 09:00 Glucose (Glutose) 15 gm Q15M PRN PO DECREASED GLUCOSE; Start 10/04/16 at 09:00 Glucose (Glutose) 22.5 gm Q15M PRN PO DECREASED GLUCOSE; Start 10/04/16 at 09: 00 Dextrose (D50w Syringe) 25 ml Q15M PRN IV DECREASED GLUCOSE; Start 10/04/16 at 09:00 Dextrose (D50w Syringe) 50 ml Q15M PRN IV DECREASED GLUCOSE; Start 10/04/16 at 09:00 Glucagon (Glucagen) 1 mg Q15M PRN IM DECREASED GLUCOSE; Start 10/04/16 at 09:00 Glucose (Glutose) 15 gm Q15M PRN BUCCAL DECREASED GLUCOSE; Start 10/04/16 at 09 :00 Metoprolol Tartrate (Lopressor) 5 mg Q4 PRN IV HR>110 Hold SBP<100; Start 10/05 at 19:30 Metoprolol Succinate (Toprol Xl) 75 mg HS PO Last administered on 10/18/16 20: 12; Admin Dose 75 MG; Start 10/08/16 at 21:00 Metoprolol Succinate (Toprol Xl) 75 mg DAILY PO Last administered on 10/19/16 09:48; Admin Dose 75 MG; Start 10/09/16 at 09:00 Amiodarone HCl (Cordarone) 200 mg BID PO Last administered on 10/19/16 09:49; Admin Dose 200 MG; Start 10/09/16 at 21:00 Insulin Glargine (Lantus) 15 unit HS SC Last administered on 10/18/16 20:13; Admin Dose 15 UNIT; Start 10/10/16 at 21:00 Montelukast Sodium (Singulair) 10 mg HS PO Last administered on 10/18/16 20:10 ; Admin Dose 10 MG; Start 10/10/16 at 21:00 Theophylline (Benji-24) 300 mg QHS PO Last administered on 10/18/16 20:10; Admin Dose 300 MG; Start 10/10/16 at 21:00 Apixaban (Eliquis) 5 mg BID PO Last administered on 10/19/16 09:56; Admin Dose 5 MG; Start 10/10/16 at 21:00 Digoxin (Digoxin) 0.125 mg DAILY@13 PO Last administered on 10/19/16 13:23; Admin Dose 0.125 MG; Start 10/12/16 at 13:00 Lisinopril (Zestril) 20 mg DAILY PO Last administered on 10/19/16 09:49; Admin Dose 20 MG; Start 10/12/16 at 09:00 Prednisone (Prednisone) 15 mg DAILY PO Last administered on 10/19/16 09:48; Admin Dose 15 MG; Start 10/12/16 at 09:00 CRISTINA ZAMAN Oct 19, 2016 17:14
[2016-10-19] MEDS: predniSONE 2.5 MG TAB PO SCH (17:28)
[2016-10-19 19:51] VITALS: BP 92/50; RESP 16
[2016-10-19] MEDS: THEOPHYLLINE (SR) 300 MG CAP PO SCH (21:35)
[2016-10-19] MEDS: ATORVASTATIN 10 MG TAB PO SCH (21:35)
[2016-10-19] MEDS: MONTELUKAST 10 MG TAB PO SCH (21:36)
[2016-10-19 21:42] VITALS: BP 93/63; PULSE 68
[2016-10-19] MEDS: INSULIN GLARGINE [LANtus] 3 ML PEN SC SCH (21:46)
[2016-10-20] MEDS: ACCU-CHEK XX SCH (01:36)
[2016-10-20] MEDS: ALBUTEROL/IPRATROPIUM (NEB) 3 ML AMP HHN SCH ×4 (01:41→21:49)
[2016-10-20] MEDS: FUROSEMIDE 40 MG TAB PO SCH ×2 (05:23→17:42)
[2016-10-20 05:25] VITALS: BP 115/68; PULSE 68
[2016-10-20] MEDS: INSULIN ASPART [NOVOLOG] 3 ML PEN SC SCH ×7 (08:00→20:44)
[2016-10-20 08:40] VITALS: BP 108/66; RESP 20
[2016-10-20] MEDS: METOPROLOL (XL) 25 MG TAB PO SCH ×2 (09:00→20:48)
[2016-10-20] MEDS: FAMOTIDINE 20 MG TAB PO SCH ×2 (09:09→20:50)
[2016-10-20] MEDS: predniSONE 5 MG TAB PO SCH (09:09)
[2016-10-20] MEDS: ASPIRIN 81 MG TAB PO SCH (09:09)
[2016-10-20] MEDS: LISINOPRIL 5 MG TAB PO SCH (09:10)
[2016-10-20] MEDS: APIXABAN 5 MG TABLET PO SCH ×2 (09:11→20:49)
[2016-10-20] MEDS: AMIODARONE 200 MG TAB PO SCH ×2 (09:12→20:52)
[2016-10-20] MEDS: MUPIROCIN 2% 22 GM OINT TOP SCH ×2 (09:12→20:54)
--- NOTE | 2016-10-20 09:37 | CONS ---
Date/Time of Note Date/Time of Note DATE: 10/20/16 TIME: 09:35 Assessment/Plan Assessment/Plan Additional Assessment/Plan 1. Atrial fibrillation with rapid ventricular response.-improved HR and now in SR- rate well controlled, med rx 2. Congestive heart failure, systolic, acute on chronic - better fluid status - will monitor 3. History of cardiomyopathy with decreased left ventricular ejection fraction 20% to 25% per chart biopsy. ICD in place. 4. Shortness of breath- better overall. 5. Status post hypercapnic respiratory failure, status post extubation. 6. Chronic obstructive pulmonary disease. 7. Hypertension. 8. Dyslipidemia. 9. History of automatic implantable cardioverter-defibrillator with possible discharge.-s/p interrogation with ICD shock for uncontrolled rapid AF. GOOD function - appropriate. 10. Pneumonia- Rx with antibx. 11.Positive troponin-minimal with no sig uptrend Consultation Date/Type/Reason Admit Date/Time Sep 28, 2016 at 14:41 Initial Consult Date 09/28/16 Type of Consultation: cardiology Referring Provider: DEVON MUHAMMAD MD 24 HR Interval Summary Free Text/Dictation No acute events -BP stable - will monitor closely. ROS: No fever, no chills, no nausea, no vomiting, no diarrhea/constipation No recent weight changes No chest pain, no PND, no orthopnea No dizziness, blurred vision No thirst, no heat or cold intolerance Exam/Review of Systems Vital Signs Vitals Vital Signs Date Time Temp Pulse Resp B/P Pulse Ox O2 Delivery O2 Flow Rate FiO2 10/20/16 08:40 98.1 76 20 108/66 94 10/19/16 20:40 Nasal Cannula 2.0 Intake and Output 10/19/16 10/19/16 10/20/16 15:00 23:00 07:00 Intake Total 1480 ml 880 ml Balance 1480 ml 880 ml Exam General: WN/WD/NAD, AOx 3 HEENT: Unicetric/atraumatic/EOMI (follow commands) NECK: JVD elevated, no thyromegaly Lymph: no lymphadenopathy HEART: regular with no S3, II/ systolic murmur at apex LUNGS: Coarse sounds ABD: soft, NT, ND, +BS : Intact Neuro: non focal SKIN: chronic changes EXT: trace edema Results Result Diagram: 2/13/17 0930 2/13/17 0938 Results 24 hrs Laboratory Tests Test 10/19/16 09:38 10/19/16 13:18 10/19/16 17:26 10/19/16 21:44 Activated Partial Thromboplast Time 27.4 Anion Gap 12 Blood Urea Nitrogen 31 H Calcium Level 9.8 Carbon Dioxide Level 46 *H Chloride Level 90 L Creatinine 0.95 Glucose Level 110 INR International Normalized Ratio 1.11 Potassium Level 3.5 Prothrombin Time 14.3 H Prothrombin Time Ratio 1.1 Sodium Level 144 Bedside Glucose 227 H 165 282 H Test 10/20/16 01:35 10/20/16 07:58 Bedside Glucose 133 122 Medications Medications Current Medications IV Flush (NS 10 ml) 10 ml PRN PRN IV IV PROTOCOL; Start 09/28/16 at 14:00 Ondansetron HCl (Zofran Inj) 4 mg Q6H PRN IV NAUSEA AND/OR VOMITING; Start at 15:00 Nitroglycerin (Nitroglycerin (Sl Tab) 0.4 Mg) 1 tab Q5M PRN SL CHEST PAIN; Start 09/28/16 at 15:00 Acetaminophen (Tylenol Liquid) 650 mg Q6H PRN PO PAIN LEVEL 1-3 OR FEVER; Start 09/28/16 at 15:00 Acetaminophen (Tylenol Tab) 650 mg Q6H PRN PO PAIN LEVEL 1-3 OR FEVER; Start at 15:00 Morphine Sulfate (morphine) 2 mg Q4H PRN IV PAIN LEVEL 7-10 Last administered on 09/29/16 02:30; Admin Dose 2 MG; Start 09/28/16 at 15:00 Lorazepam (Ativan) 1 mg Q2H PRN IV ANXIETY; Start 09/28/16 at 15:00 Docusate Sodium (Colace) 100 mg Q12H PRN PO CONSTIPATION; Start 09/28/16 at 15: 00 Famotidine (Pepcid) 20 mg Q12 PO Last administered on 10/20/16 09:09; Admin Dose 20 MG; Start 09/28/16 at 21:00 Aspirin (Aspirin) 81 mg DAILY PO Last administered on 10/20/16 09:09; Admin Dose 81 MG; Start 09/29/16 at 09:00 Atorvastatin Calcium (Lipitor) 10 mg QHS PO Last administered on 10/19/16 21: 35; Admin Dose 10 MG; Start 09/28/16 at 21:00 Tiotropium [place] (Spiriva) 1 inh DAILY INH ; Start 09/28/16 at 16:00; Status Future Hold Mupirocin (Bactroban) 1 applic BID TOP Last administered on 10/20/16 09:12; Admin Dose 1 APPLIC; Start 09/30/16 at 09:00 Diagnostic Test (Pha) (Accucheck) 1 ea 02 XX Last administered on 10/20/16 01: 36; Admin Dose 1 EA; Start 10/05/16 at 02:00 Miscellaneous Information 1 ea NOTE XX ; Start 10/04/16 at 09:00 Glucose (Glutose) 15 gm Q15M PRN PO DECREASED GLUCOSE; Start 10/04/16 at 09:00 Glucose (Glutose) 22.5 gm Q15M PRN PO DECREASED GLUCOSE; Start 10/04/16 at 09: 00 Dextrose (D50w Syringe) 25 ml Q15M PRN IV DECREASED GLUCOSE; Start 10/04/16 at 09:00 Dextrose (D50w Syringe) 50 ml Q15M PRN IV DECREASED GLUCOSE; Start 10/04/16 at 09:00 Glucagon (Glucagen) 1 mg Q15M PRN IM DECREASED GLUCOSE; Start 10/04/16 at 09:00 Glucose (Glutose) 15 gm Q15M PRN BUCCAL DECREASED GLUCOSE; Start 10/04/16 at 09 :00 Metoprolol Tartrate (Lopressor) 5 mg Q4 PRN IV HR>110 Hold SBP<100; Start 10/05 at 19:30 Metoprolol Succinate (Toprol Xl) 75 mg HS PO Last administered on 10/18/16 20: 12; Admin Dose 75 MG; Start 10/08/16 at 21:00 Metoprolol Succinate (Toprol Xl) 75 mg DAILY PO Last administered on 10/19/16 09:48; Admin Dose 75 MG; Start 10/09/16 at 09:00 Amiodarone HCl (Cordarone) 200 mg BID PO Last administered on 10/20/16 09:12; Admin Dose 200 MG; Start 10/09/16 at 21:00 Insulin Glargine (Lantus) 15 unit HS SC Last administered on 10/19/16 21:46; Admin Dose 15 UNIT; Start 10/10/16 at 21:00 Montelukast Sodium (Singulair) 10 mg HS PO Last administered on 10/19/16 21:36 ; Admin Dose 10 MG; Start 10/10/16 at 21:00 Theophylline (Benji-24) 300 mg QHS PO Last administered on 10/19/16 21:35; Admin Dose 300 MG; Start 10/10/16 at 21:00 Apixaban (Eliquis) 5 mg BID PO Last administered on 10/20/16 09:11; Admin Dose 5 MG; Start 10/10/16 at 21:00 Digoxin (Digoxin) 0.125 mg DAILY@13 PO Last administered on 10/19/16 13:23; Admin Dose 0.125 MG; Start 10/12/16 at 13:00 Lisinopril (Zestril) 20 mg DAILY PO Last administered on 10/20/16 09:10; Admin Dose 20 MG; Start 10/12/16 at 09:00 Prednisone (Prednisone) 15 mg DAILY PO Last administered on 10/20/16 09:09; Admin Dose 15 MG; Start 10/12/16 at 09:00 RAYSHAWN DUNN MD Oct 20, 2016 09:37
[2016-10-20] MEDS: DIGOXIN 0.125 MG TAB PO SCH (12:37)
--- NOTE | 2016-10-20 15:26 | PN ---
Date/Time of Note Date/Time of Note DATE: 10/20/16 TIME: 15:25 Assessment/Plan VTE Prophylaxis VTE Prophylaxis Intervention: other Lines/Catheters Urinary Cath still in place: No Assessment/Plan Chief Complaint/Hosp Course 1. Acute on chronic hypoxemic respiratory failure secondary to chronic obstructive pulmonary disease exacerbation and questionable healthcare- associated pneumonia -off Abx, cont Steroid 2. S/p Urinary tract infection. 3. Congestive heart failure. 4. Ischemic cardiomyopathy with a history of automatic implantable cardioverter defibrillator. 5. History of coronary artery stenting. 6. Methicillin-resistant Staphylococcus aureus nares colonization. 7. A fib-stable 8. Hx of Foot Fx- stable -cont splint, Podiatry aware Dispo- awaiting placement PPx Eliquis Problems: Subjective 24 Hr Interval Summary Constitutional: disoriented, no complaints Exam/Review of Systems Vital Signs Vitals Vital Signs Date Time Temp Pulse Resp B/P Pulse Ox O2 Delivery O2 Flow Rate FiO2 10/20/16 14:58 62 20 94 Nasal Cannula 2.0 10/20/16 08:40 98.1 108/66 Intake and Output 10/19/16 10/19/16 10/20/16 15:00 23:00 07:00 Intake Total 1480 ml 880 ml Balance 1480 ml 880 ml Exam Constitutional: alert Psych: confusion Respiratory: clear to auscultation Cardiovascular: regular rate and rhythm Gastrointestinal: soft, No distended Musculoskeletal: No nl extremities to inspection Results Result Diagram: 10/19/16 0930 10/19/16 0938 Results 24 hrs Laboratory Tests Test 10/19/16 17:26 10/19/16 21:44 10/20/16 01:35 10/20/16 07:58 Bedside Glucose 165 282 H 133 122 Test 10/20/16 12:16 Bedside Glucose 174 Medications Medications Current Medications IV Flush (NS 10 ml) 10 ml PRN PRN IV IV PROTOCOL; Start 09/28/16 at 14:00 Ondansetron HCl (Zofran Inj) 4 mg Q6H PRN IV NAUSEA AND/OR VOMITING; Start at 15:00 Nitroglycerin (Nitroglycerin (Sl Tab) 0.4 Mg) 1 tab Q5M PRN SL CHEST PAIN; Start 09/28/16 at 15:00 Acetaminophen (Tylenol Liquid) 650 mg Q6H PRN PO PAIN LEVEL 1-3 OR FEVER; Start 09/28/16 at 15:00 Acetaminophen (Tylenol Tab) 650 mg Q6H PRN PO PAIN LEVEL 1-3 OR FEVER; Start at 15:00 Morphine Sulfate (morphine) 2 mg Q4H PRN IV PAIN LEVEL 7-10 Last administered on 09/29/16 02:30; Admin Dose 2 MG; Start 09/28/16 at 15:00 Lorazepam (Ativan) 1 mg Q2H PRN IV ANXIETY; Start 09/28/16 at 15:00 Docusate Sodium (Colace) 100 mg Q12H PRN PO CONSTIPATION; Start 09/28/16 at 15: 00 Famotidine (Pepcid) 20 mg Q12 PO Last administered on 10/20/16 09:09; Admin Dose 20 MG; Start 09/28/16 at 21:00 Aspirin (Aspirin) 81 mg DAILY PO Last administered on 10/20/16 09:09; Admin Dose 81 MG; Start 09/29/16 at 09:00 Atorvastatin Calcium (Lipitor) 10 mg QHS PO Last administered on 10/19/16 21: 35; Admin Dose 10 MG; Start 09/28/16 at 21:00 Tiotropium [place] (Spiriva) 1 inh DAILY INH ; Start 09/28/16 at 16:00; Status Future Hold Mupirocin (Bactroban) 1 applic BID TOP Last administered on 10/20/16 09:12; Admin Dose 1 APPLIC; Start 09/30/16 at 09:00 Diagnostic Test (Pha) (Accucheck) 1 ea 02 XX Last administered on 10/20/16 01: 36; Admin Dose 1 EA; Start 10/05/16 at 02:00 Miscellaneous Information 1 ea NOTE XX ; Start 10/04/16 at 09:00 Glucose (Glutose) 15 gm Q15M PRN PO DECREASED GLUCOSE; Start 10/04/16 at 09:00 Glucose (Glutose) 22.5 gm Q15M PRN PO DECREASED GLUCOSE; Start 10/04/16 at 09: 00 Dextrose (D50w Syringe) 25 ml Q15M PRN IV DECREASED GLUCOSE; Start 10/04/16 at 09:00 Dextrose (D50w Syringe) 50 ml Q15M PRN IV DECREASED GLUCOSE; Start 10/04/16 at 09:00 Glucagon (Glucagen) 1 mg Q15M PRN IM DECREASED GLUCOSE; Start 10/04/16 at 09:00 Glucose (Glutose) 15 gm Q15M PRN BUCCAL DECREASED GLUCOSE; Start 10/04/16 at 09 :00 Metoprolol Tartrate (Lopressor) 5 mg Q4 PRN IV HR>110 Hold SBP<100; Start 10/05 at 19:30 Metoprolol Succinate (Toprol Xl) 75 mg HS PO Last administered on 10/18/16 20: 12; Admin Dose 75 MG; Start 10/08/16 at 21:00 Metoprolol Succinate (Toprol Xl) 75 mg DAILY PO Last administered on 10/19/16 09:48; Admin Dose 75 MG; Start 10/09/16 at 09:00 Amiodarone HCl (Cordarone) 200 mg BID PO Last administered on 10/20/16 09:12; Admin Dose 200 MG; Start 10/09/16 at 21:00 Insulin Glargine (Lantus) 15 unit HS SC Last administered on 10/19/16 21:46; Admin Dose 15 UNIT; Start 10/10/16 at 21:00 Montelukast Sodium (Singulair) 10 mg HS PO Last administered on 10/19/16 21:36 ; Admin Dose 10 MG; Start 10/10/16 at 21:00 Theophylline (Benji-24) 300 mg QHS PO Last administered on 10/19/16 21:35; Admin Dose 300 MG; Start 10/10/16 at 21:00 Apixaban (Eliquis) 5 mg BID PO Last administered on 10/20/16 09:11; Admin Dose 5 MG; Start 10/10/16 at 21:00 Digoxin (Digoxin) 0.125 mg DAILY@13 PO Last administered on 10/20/16 12:37; Admin Dose 0.125 MG; Start 10/12/16 at 13:00 Lisinopril (Zestril) 20 mg DAILY PO Last administered on 10/20/16 09:10; Admin Dose 20 MG; Start 10/12/16 at 09:00 Prednisone (Prednisone) 15 mg DAILY PO Last administered on 10/20/16 09:09; Admin Dose 15 MG; Start 2/6/17 at 09:00 CRISTINA ZAMAN Oct 20, 2016 15:26
[2016-10-20] MEDS: predniSONE 2.5 MG TAB PO SCH (17:41)
[2016-10-20] MEDS: INSULIN GLARGINE [LANtus] 3 ML PEN SC SCH (20:45)
[2016-10-20] MEDS: MONTELUKAST 10 MG TAB PO SCH (20:49)
[2016-10-20] MEDS: ATORVASTATIN 10 MG TAB PO SCH (20:50)
[2016-10-20] MEDS: THEOPHYLLINE (SR) 300 MG CAP PO SCH (20:50)
[2016-10-20 20:51] VITALS: BP 98/60; RESP 21
--- NOTE | 2016-10-20 23:14 | PN ---
Date/Time of Note Date/Time of Note DATE: 10/20/16 TIME: 23:12 Assessment/Plan Lines/Catheters [place] in Place (from [facility]): No Assessment/Plan Problems: (1) Peripheral vascular disease (2) Right foot injury Status: Acute Qualifiers: Encounter type: initial encounter Qualified Code: S99.921A - Right foot injury, initial encounter (3) Diabetes mellitus type 2 in nonobese Status: Chronic (4) Hypertension Status: Chronic Qualifiers: Hypertension type: essential hypertension Qualified Code: I10 - Essential hypertension (5) COPD (chronic obstructive pulmonary disease) Status: Acute Qualifiers: COPD type: emphysema Emphysema type: panlobular Qualified Code: J43.1 - Panlobular emphysema Assessment/Plan Discontinue posterior splint. Start Cam Walker and PT with partial weightbearing on the right lower extremity. Continue with Abdirashid bandage to the right lower extremity on a daily basis. Patient will be followed in-house. Subjective 24 Hr Interval Summary Patient was seen and examined at bedside. Patient reports improvement in his right lower leg. Denies any other problems today. Reports no fever, chills, nausea or vomiting. Constitutional: no complaints Pain Control: well controlled Exam/Review of Systems Vital Signs Vitals Vital Signs Date Time Temp Pulse Resp B/P Pulse Ox O2 Delivery O2 Flow Rate FiO2 10/20/16 21:52 64 20 94 Nasal Cannula 2.0 10/20/16 20:51 98.1 98/60 Intake and Output 10/19/16 10/19/16 10/20/16 15:00 23:00 07:00 Intake Total 1480 ml 880 ml Balance 1480 ml 880 ml Exam Free Text/Dictation Patient was seen and examined at bedside. He has a posterior splint to the right lower extremity. This was removed. Patient continues to have edema of the right lower extremity with decrease in ecchymosis. Results Result Diagram: 10/19/16 0930 10/19/16 0938 JESUS OAKES DPM Oct 20, 2016 23:14
[2016-10-21] MEDS: ALBUTEROL/IPRATROPIUM (NEB) 3 ML AMP HHN SCH ×4 (01:37→19:42)
[2016-10-21] MEDS: ACCU-CHEK XX SCH (02:00)
[2016-10-21] MEDS: FUROSEMIDE 40 MG TAB PO SCH ×2 (06:27→17:57)
[2016-10-21 07:49] VITALS: BP 116/63; RESP 22
[2016-10-21] MEDS: INSULIN ASPART [NOVOLOG] 3 ML PEN SC SCH ×7 (08:00→21:00)
[2016-10-21] MEDS: AMIODARONE 200 MG TAB PO SCH ×2 (09:55→21:00)
[2016-10-21] MEDS: predniSONE 5 MG TAB PO SCH (09:56)
[2016-10-21] MEDS: FAMOTIDINE 20 MG TAB PO SCH ×2 (09:56→21:00)
[2016-10-21] MEDS: LISINOPRIL 5 MG TAB PO SCH (09:56)
[2016-10-21] MEDS: ASPIRIN 81 MG TAB PO SCH (09:56)
[2016-10-21] MEDS: APIXABAN 5 MG TABLET PO SCH ×2 (09:56→21:00)
[2016-10-21] MEDS: METOPROLOL (XL) 25 MG TAB PO SCH ×2 (09:57→21:00)
[2016-10-21] MEDS: MUPIROCIN 2% 22 GM OINT TOP SCH ×2 (10:00→21:00)
[2016-10-21] MEDS: DIGOXIN 0.125 MG TAB PO SCH (12:15)
--- NOTE | 2016-10-21 14:42 | CONS ---
Date/Time of Note Date/Time of Note DATE: 10/21/16 TIME: 14:40 Assessment/Plan Assessment/Plan Chief Complaint/Hosp Course IMPRESSION: 1. Atrial fibrillation with rapid ventricular response.-improved HR and now in SR 2. Congestive heart failure, systolic, acute on chronic. 3. History of cardiomyopathy with decreased left ventricular ejection fraction 20% to 25% per chart biopsy. 4. Shortness of breath. 5. Status post hypercapnic respiratory failure, status post extubation. 6. Chronic obstructive pulmonary disease. 7. Hypertension. 8. Dyslipidemia. 9. History of automatic implantable cardioverter-defibrillator with possible discharge.-s/p interrogation with ICD shock for uncontrolled rapid AF. 10. Pneumonia. 11.Positive troponin-minimal with no sig uptrend Recc -Tele -serial ecg's -Continue asa/Eliquis -Continue BB/ACEI as tolerated -Continue digoxin -Continue statin -Continue amiodarone BID for now -Follow volume status with lasix diuresis increased -awaiting placement Problems: Consultation Date/Type/Reason Admit Date/Time Sep 28, 2016 at 14:41 Initial Consult Date 09/28/16 Type of Consultation: cardiology Reason for Consultation 09/29/16 Referring Provider: DEOVN MUHAMMAD MD Exam/Review of Systems Vital Signs Vitals Vital Signs Date Time Temp Pulse Resp B/P Pulse Ox O2 Delivery O2 Flow Rate FiO2 10/21/16 12:59 Nasal Cannula 2.0 10/21/16 07:49 97.4 65 22 116/63 99 Intake and Output 10/20/16 10/20/16 10/21/16 15:00 23:00 07:00 Intake Total 1520 ml 950 ml Balance 1520 ml 950 ml Exam Review of Systems: CONSTITUTIONAL: No fevers, chills. PULMONARY: mild sob CARDIOVASCULAR: No chest pain/palpitations GASTROINTESTINAL: No nausea/vomiting. GENITOURINARY: No hematuria/dysuria. MUSCULOSKELETAL: No myagias/arthalgias. PSYCHIATRIC: The patient denies depression. NEUROLOGIC: No weakness Constitutional: alert, oriented Psych: no complaints Head: normocephalic ENMT: mucosa pink and moist Neck: jvd (9 cm water), non-tender Respiratory: diminished breath sounds Cardiovascular: regular rate and rhythm Gastrointestinal: non-tender, soft Musculoskeletal: muscle tone (normal) Extremities: pitting pedal edema (Bilateral) Neurological: other (No focal deficits) Results Result Diagram: 10/19/16 0930 10/19/16 0938 Results 24 hrs Laboratory Tests Test 10/20/16 17:44 10/20/16 20:43 10/21/16 08:18 10/21/16 11:45 Bedside Glucose 160 178 177 118 Medications Medications Current Medications IV Flush (NS 10 ml) 10 ml PRN PRN IV IV PROTOCOL; Start 09/28/16 at 14:00 Ondansetron HCl (Zofran Inj) 4 mg Q6H PRN IV NAUSEA AND/OR VOMITING; Start at 15:00 Nitroglycerin (Nitroglycerin (Sl Tab) 0.4 Mg) 1 tab Q5M PRN SL CHEST PAIN; Start 09/28/16 at 15:00 Acetaminophen (Tylenol Liquid) 650 mg Q6H PRN PO PAIN LEVEL 1-3 OR FEVER; Start 09/28/16 at 15:00 Acetaminophen (Tylenol Tab) 650 mg Q6H PRN PO PAIN LEVEL 1-3 OR FEVER; Start at 15:00 Morphine Sulfate (morphine) 2 mg Q4H PRN IV PAIN LEVEL 7-10 Last administered on 09/29/16 02:30; Admin Dose 2 MG; Start 09/28/16 at 15:00 Lorazepam (Ativan) 1 mg Q2H PRN IV ANXIETY; Start 09/28/16 at 15:00 Docusate Sodium (Colace) 100 mg Q12H PRN PO CONSTIPATION; Start 09/28/16 at 15: 00 Famotidine (Pepcid) 20 mg Q12 PO Last administered on 10/21/16 09:56; Admin Dose 20 MG; Start 09/28/16 at 21:00 Aspirin (Aspirin) 81 mg DAILY PO Last administered on 10/21/16 09:56; Admin Dose 81 MG; Start 09/29/16 at 09:00 Atorvastatin Calcium (Lipitor) 10 mg QHS PO Last administered on 10/20/16 20: 50; Admin Dose 10 MG; Start 09/28/16 at 21:00 Tiotropium [place] (Spiriva) 1 inh DAILY INH ; Start 09/28/16 at 16:00; Status Future Hold Mupirocin (Bactroban) 1 applic BID TOP Last administered on 10/21/16 10:00; Admin Dose 1 APPLIC; Start 09/30/16 at 09:00 Diagnostic Test (Pha) (Accucheck) 1 ea 02 XX Last administered on 10/20/16 01: 36; Admin Dose 1 EA; Start 10/05/16 at 02:00 Miscellaneous Information 1 ea NOTE XX ; Start 10/04/16 at 09:00 Glucose (Glutose) 15 gm Q15M PRN PO DECREASED GLUCOSE; Start 10/04/16 at 09:00 Glucose (Glutose) 22.5 gm Q15M PRN PO DECREASED GLUCOSE; Start 10/04/16 at 09: 00 Dextrose (D50w Syringe) 25 ml Q15M PRN IV DECREASED GLUCOSE; Start 10/04/16 at 09:00 Dextrose (D50w Syringe) 50 ml Q15M PRN IV DECREASED GLUCOSE; Start 10/04/16 at 09:00 Glucagon (Glucagen) 1 mg Q15M PRN IM DECREASED GLUCOSE; Start 10/04/16 at 09:00 Glucose (Glutose) 15 gm Q15M PRN BUCCAL DECREASED GLUCOSE; Start 10/04/16 at 09 :00 Metoprolol Tartrate (Lopressor) 5 mg Q4 PRN IV HR>110 Hold SBP<100; Start 10/05 at 19:30 Metoprolol Succinate (Toprol Xl) 75 mg HS PO Last administered on 10/18/16 20: 12; Admin Dose 75 MG; Start 10/08/16 at 21:00 Metoprolol Succinate (Toprol Xl) 75 mg DAILY PO Last administered on 10/21/16 09:57; Admin Dose 75 MG; Start 10/09/16 at 09:00 Amiodarone HCl (Cordarone) 200 mg BID PO Last administered on 10/21/16 09:55; Admin Dose 200 MG; Start 10/09/16 at 21:00 Insulin Glargine (Lantus) 15 unit HS SC Last administered on 10/20/16 20:45; Admin Dose 15 UNIT; Start 10/10/16 at 21:00 Montelukast Sodium (Singulair) 10 mg HS PO Last administered on 10/20/16 20:49 ; Admin Dose 10 MG; Start 10/10/16 at 21:00 Theophylline (Benji-24) 300 mg QHS PO Last administered on 10/20/16 20:50; Admin Dose 300 MG; Start 10/10/16 at 21:00 Apixaban (Eliquis) 5 mg BID PO Last administered on 10/21/16 09:56; Admin Dose 5 MG; Start 10/10/16 at 21:00 Digoxin (Digoxin) 0.125 mg DAILY@13 PO Last administered on 10/20/16 12:37; Admin Dose 0.125 MG; Start 10/12/16 at 13:00 Lisinopril (Zestril) 20 mg DAILY PO Last administered on 10/21/16 09:56; Admin Dose 20 MG; Start 10/12/16 at 09:00 Prednisone (Prednisone) 15 mg DAILY PO Last administered on 10/21/16 09:56; Admin Dose 15 MG; Start 10/12/16 at 09:00 СВЕТЛАНА PADRON Oct 21, 2016 14:42
--- NOTE | 2016-10-21 15:55 | PN ---
Date/Time of Note Date/Time of Note DATE: 10/21/16 TIME: 15:55 Assessment/Plan VTE Prophylaxis VTE Prophylaxis Intervention: other Lines/Catheters Urinary Cath still in place: No Assessment/Plan Chief Complaint/Hosp Course 1. Acute on chronic hypoxemic respiratory failure secondary to chronic obstructive pulmonary disease exacerbation and questionable healthcare- associated pneumonia -off Abx, cont Steroid 2. S/p Urinary tract infection. 3. Congestive heart failure. 4. Ischemic cardiomyopathy with a history of automatic implantable cardioverter defibrillator. 5. History of coronary artery stenting. 6. Methicillin-resistant Staphylococcus aureus nares colonization. 7. A fib-stable 8. Hx of Foot Fx- stable -cont splint, Podiatry aware Dispo- awaiting placement PPx Eliquis Problems: Subjective 24 Hr Interval Summary Constitutional: no complaints Exam/Review of Systems Vital Signs Vitals Vital Signs Date Time Temp Pulse Resp B/P Pulse Ox O2 Delivery O2 Flow Rate FiO2 10/21/16 12:59 Nasal Cannula 2.0 10/21/16 07:49 97.4 65 22 116/63 99 Intake and Output 10/20/16 10/20/16 10/21/16 15:00 23:00 07:00 Intake Total 1520 ml 950 ml Balance 1520 ml 950 ml Exam Constitutional: alert Respiratory: clear to auscultation Cardiovascular: regular rate and rhythm Gastrointestinal: soft, No distended Musculoskeletal: No nl extremities to inspection Results Result Diagram: 10/19/16 0930 10/19/16 0938 Results 24 hrs Laboratory Tests Test 10/20/16 17:44 10/20/16 20:43 10/21/16 08:18 10/21/16 11:45 Bedside Glucose 160 178 177 118 Medications Medications Current Medications IV Flush (NS 10 ml) 10 ml PRN PRN IV IV PROTOCOL; Start 09/28/16 at 14:00 Ondansetron HCl (Zofran Inj) 4 mg Q6H PRN IV NAUSEA AND/OR VOMITING; Start at 15:00 Nitroglycerin (Nitroglycerin (Sl Tab) 0.4 Mg) 1 tab Q5M PRN SL CHEST PAIN; Start 09/28/16 at 15:00 Acetaminophen (Tylenol Liquid) 650 mg Q6H PRN PO PAIN LEVEL 1-3 OR FEVER; Start 09/28/16 at 15:00 Acetaminophen (Tylenol Tab) 650 mg Q6H PRN PO PAIN LEVEL 1-3 OR FEVER; Start at 15:00 Morphine Sulfate (morphine) 2 mg Q4H PRN IV PAIN LEVEL 7-10 Last administered on 09/29/16 02:30; Admin Dose 2 MG; Start 09/28/16 at 15:00 Lorazepam (Ativan) 1 mg Q2H PRN IV ANXIETY; Start 09/28/16 at 15:00 Docusate Sodium (Colace) 100 mg Q12H PRN PO CONSTIPATION; Start 09/28/16 at 15: 00 Famotidine (Pepcid) 20 mg Q12 PO Last administered on 10/21/16 09:56; Admin Dose 20 MG; Start 09/28/16 at 21:00 Aspirin (Aspirin) 81 mg DAILY PO Last administered on 10/21/16 09:56; Admin Dose 81 MG; Start 09/29/16 at 09:00 Atorvastatin Calcium (Lipitor) 10 mg QHS PO Last administered on 10/20/16 20: 50; Admin Dose 10 MG; Start 09/28/16 at 21:00 Tiotropium [place] (Spiriva) 1 inh DAILY INH ; Start 09/28/16 at 16:00; Status Future Hold Mupirocin (Bactroban) 1 applic BID TOP Last administered on 10/21/16 10:00; Admin Dose 1 APPLIC; Start 09/30/16 at 09:00 Diagnostic Test (Pha) (Accucheck) 1 ea 02 XX Last administered on 10/20/16 01: 36; Admin Dose 1 EA; Start 10/05/16 at 02:00 Miscellaneous Information 1 ea NOTE XX ; Start 10/04/16 at 09:00 Glucose (Glutose) 15 gm Q15M PRN PO DECREASED GLUCOSE; Start 10/04/16 at 09:00 Glucose (Glutose) 22.5 gm Q15M PRN PO DECREASED GLUCOSE; Start 10/04/16 at 09: 00 Dextrose (D50w Syringe) 25 ml Q15M PRN IV DECREASED GLUCOSE; Start 10/04/16 at 09:00 Dextrose (D50w Syringe) 50 ml Q15M PRN IV DECREASED GLUCOSE; Start 10/04/16 at 09:00 Glucagon (Glucagen) 1 mg Q15M PRN IM DECREASED GLUCOSE; Start 10/04/16 at 09:00 Glucose (Glutose) 15 gm Q15M PRN BUCCAL DECREASED GLUCOSE; Start 10/04/16 at 09 :00 Metoprolol Tartrate (Lopressor) 5 mg Q4 PRN IV HR>110 Hold SBP<100; Start 10/05 at 19:30 Metoprolol Succinate (Toprol Xl) 75 mg HS PO Last administered on 10/18/16 20: 12; Admin Dose 75 MG; Start 10/08/16 at 21:00 Metoprolol Succinate (Toprol Xl) 75 mg DAILY PO Last administered on 10/21/16 09:57; Admin Dose 75 MG; Start 10/09/16 at 09:00 Amiodarone HCl (Cordarone) 200 mg BID PO Last administered on 10/21/16 09:55; Admin Dose 200 MG; Start 10/09/16 at 21:00 Insulin Glargine (Lantus) 15 unit HS SC Last administered on 10/20/16 20:45; Admin Dose 15 UNIT; Start 10/10/16 at 21:00 Montelukast Sodium (Singulair) 10 mg HS PO Last administered on 10/20/16 20:49 ; Admin Dose 10 MG; Start 10/10/16 at 21:00 Theophylline (Benji-24) 300 mg QHS PO Last administered on 10/20/16 20:50; Admin Dose 300 MG; Start 10/10/16 at 21:00 Apixaban (Eliquis) 5 mg BID PO Last administered on 10/21/16 09:56; Admin Dose 5 MG; Start 10/10/16 at 21:00 Digoxin (Digoxin) 0.125 mg DAILY@13 PO Last administered on 10/20/16 12:37; Admin Dose 0.125 MG; Start 10/12/16 at 13:00 Lisinopril (Zestril) 20 mg DAILY PO Last administered on 10/21/16 09:56; Admin Dose 20 MG; Start 10/12/16 at 09:00 Prednisone (Prednisone) 15 mg DAILY PO Last administered on 10/21/16 09:56; Admin Dose 15 MG; Start 10/12/16 at 09:00 CRISTINA ZAMAN Oct 21, 2016 15:55
[2016-10-21] MEDS: predniSONE 2.5 MG TAB PO SCH (17:56)
[2016-10-21 20:58] VITALS: BP 96/56
[2016-10-21] MEDS: ATORVASTATIN 10 MG TAB PO SCH (21:00)
[2016-10-21] MEDS: MONTELUKAST 10 MG TAB PO SCH (21:00)
[2016-10-21] MEDS: THEOPHYLLINE (SR) 300 MG CAP PO SCH (21:01)
[2016-10-21] MEDS: INSULIN GLARGINE [LANtus] 3 ML PEN SC SCH (21:02)
[2016-10-22] MEDS: ALBUTEROL/IPRATROPIUM (NEB) 3 ML AMP HHN SCH ×4 (02:00→19:58)
[2016-10-22] MEDS: ACCU-CHEK XX SCH (02:00)
[2016-10-22] MEDS: FUROSEMIDE 40 MG TAB PO SCH ×2 (06:00→16:51)
[2016-10-22 06:02] VITALS: BP 100/62
[2016-10-22] MEDS: INSULIN ASPART [NOVOLOG] 3 ML PEN SC SCH ×7 (07:35→21:00)
[2016-10-22 08:11] VITALS: BP 134/67; RESP 24
[2016-10-22] MEDS: ASPIRIN 81 MG TAB PO SCH (08:43)
[2016-10-22] MEDS: FAMOTIDINE 20 MG TAB PO SCH ×2 (08:44→21:09)
[2016-10-22] MEDS: LISINOPRIL 5 MG TAB PO SCH (08:44)
[2016-10-22] MEDS: AMIODARONE 200 MG TAB PO SCH (08:45)
[2016-10-22] MEDS: APIXABAN 5 MG TABLET PO SCH ×2 (08:45→21:09)
[2016-10-22] MEDS: predniSONE 5 MG TAB PO SCH (08:46)
[2016-10-22] MEDS: METOPROLOL (XL) 25 MG TAB PO SCH ×2 (08:47→21:11)
[2016-10-22] MEDS: MUPIROCIN 2% 22 GM OINT TOP SCH ×2 (08:48→21:31)
[2016-10-22] MEDS: DIGOXIN 0.125 MG TAB PO SCH (12:57)
--- NOTE | 2016-10-22 13:34 | CONS ---
Date/Time of Note Date/Time of Note DATE: 10/22/16 TIME: 13:31 Assessment/Plan Assessment/Plan Chief Complaint/Hosp Course IMPRESSION: 1. Atrial fibrillation with rapid ventricular response.-improved HR and now in SR by most recent ecg 2. Congestive heart failure, systolic, acute on chronic. 3. History of cardiomyopathy with decreased left ventricular ejection fraction 20% to 25% per chart biopsy. 4. Shortness of breath. 5. Status post hypercapnic respiratory failure, status post extubation. 6. Chronic obstructive pulmonary disease. 7. Hypertension. 8. Dyslipidemia. 9. History of automatic implantable cardioverter-defibrillator with possible discharge.-s/p interrogation with ICD shock for uncontrolled rapid AF. 10. Pneumonia. 11.Positive troponin-minimal with no sig uptrend Recc -Tele -ECG today to document current rhythm -Continue asa/Eliquis -Continue BB/ACEI as tolerated -Continue digoxin -Continue statin -Change Amio to daily now -Follow volume status with ongoing lasix diuresis as patient will comply with for volume overload/CHF -awaiting placement Problems: Consultation Date/Type/Reason Admit Date/Time Sep 28, 2016 at 14:41 Initial Consult Date 09/28/16 Type of Consultation: cardiology Reason for Consultation CHF/CMY/ICD Referring Provider: DEVON MUHAMMAD MD Exam/Review of Systems Vital Signs Vitals Vital Signs Date Time Temp Pulse Resp B/P Pulse Ox O2 Delivery O2 Flow Rate FiO2 10/22/16 09:34 93 3.0 10/22/16 09:31 78 20 Nasal Cannula 10/22/16 08:11 97.8 134/67 Intake and Output 10/21/16 10/21/16 10/22/16 15:00 23:00 07:00 Intake Total 2300 ml 322 ml Balance 2300 ml 322 ml Exam Review of Systems: CONSTITUTIONAL: No fevers, chills. PULMONARY: No sob CARDIOVASCULAR: No chest pain/palpitations GASTROINTESTINAL: No nausea/vomiting. GENITOURINARY: No hematuria/dysuria. MUSCULOSKELETAL: No myagias/arthalgias. PSYCHIATRIC: The patient denies depression. NEUROLOGIC: No weakness Constitutional: alert, oriented Psych: no complaints Head: normocephalic ENMT: mucosa pink and moist Neck: jvd (9 cm water), supple Respiratory: diminished breath sounds (at bases/B) Cardiovascular: regular rate and rhythm Gastrointestinal: non-tender, soft Musculoskeletal: muscle tone (normal) Extremities: pitting pedal edema (Bilateral) Neurological: other (No focal deficits) Results Result Diagram: 10/19/16 0930 10/19/16 0938 Results 24 hrs Laboratory Tests Test 10/21/16 17:56 10/21/16 20:34 10/22/16 07:49 10/22/16 12:10 Bedside Glucose 177 163 94 107 Medications Medications Current Medications IV Flush (NS 10 ml) 10 ml PRN PRN IV IV PROTOCOL; Start 09/28/16 at 14:00 Ondansetron HCl (Zofran Inj) 4 mg Q6H PRN IV NAUSEA AND/OR VOMITING; Start at 15:00 Nitroglycerin (Nitroglycerin (Sl Tab) 0.4 Mg) 1 tab Q5M PRN SL CHEST PAIN; Start 09/28/16 at 15:00 Acetaminophen (Tylenol Liquid) 650 mg Q6H PRN PO PAIN LEVEL 1-3 OR FEVER; Start 09/28/16 at 15:00 Acetaminophen (Tylenol Tab) 650 mg Q6H PRN PO PAIN LEVEL 1-3 OR FEVER; Start at 15:00 Morphine Sulfate (morphine) 2 mg Q4H PRN IV PAIN LEVEL 7-10 Last administered on 09/29/16 02:30; Admin Dose 2 MG; Start 09/28/16 at 15:00 Lorazepam (Ativan) 1 mg Q2H PRN IV ANXIETY; Start 09/28/16 at 15:00 Docusate Sodium (Colace) 100 mg Q12H PRN PO CONSTIPATION; Start 09/28/16 at 15: 00 Famotidine (Pepcid) 20 mg Q12 PO Last administered on 10/22/16 08:44; Admin Dose 20 MG; Start 09/28/16 at 21:00 Aspirin (Aspirin) 81 mg DAILY PO Last administered on 10/22/16 08:43; Admin Dose 81 MG; Start 09/29/16 at 09:00 Atorvastatin Calcium (Lipitor) 10 mg QHS PO Last administered on 10/21/16 21: 00; Admin Dose 10 MG; Start 09/28/16 at 21:00 Tiotropium [place] (Spiriva) 1 inh DAILY INH ; Start 09/28/16 at 16:00; Status Future Hold Mupirocin (Bactroban) 1 applic BID TOP Last administered on 10/22/16 08:48; Admin Dose 1 APPLIC; Start 09/30/16 at 09:00 Diagnostic Test (Pha) (Accucheck) 1 ea 02 XX Last administered on 10/20/16 01: 36; Admin Dose 1 EA; Start 10/05/16 at 02:00 Miscellaneous Information 1 ea NOTE XX ; Start 10/04/16 at 09:00 Glucose (Glutose) 15 gm Q15M PRN PO DECREASED GLUCOSE; Start 10/04/16 at 09:00 Glucose (Glutose) 22.5 gm Q15M PRN PO DECREASED GLUCOSE; Start 10/04/16 at 09: 00 Dextrose (D50w Syringe) 25 ml Q15M PRN IV DECREASED GLUCOSE; Start 10/04/16 at 09:00 Dextrose (D50w Syringe) 50 ml Q15M PRN IV DECREASED GLUCOSE; Start 10/04/16 at 09:00 Glucagon (Glucagen) 1 mg Q15M PRN IM DECREASED GLUCOSE; Start 10/04/16 at 09:00 Glucose (Glutose) 15 gm Q15M PRN BUCCAL DECREASED GLUCOSE; Start 10/04/16 at 09 :00 Metoprolol Tartrate (Lopressor) 5 mg Q4 PRN IV HR>110 Hold SBP<100; Start 10/05 at 19:30 Metoprolol Succinate (Toprol Xl) 75 mg HS PO Last administered on 10/18/16 20: 12; Admin Dose 75 MG; Start 10/08/16 at 21:00 Metoprolol Succinate (Toprol Xl) 75 mg DAILY PO Last administered on 10/22/16 08:47; Admin Dose 75 MG; Start 10/09/16 at 09:00 Amiodarone HCl (Cordarone) 200 mg BID PO Last administered on 10/22/16 08:45; Admin Dose 200 MG; Start 10/09/16 at 21:00 Insulin Glargine (Lantus) 15 unit HS SC Last administered on 10/21/16 21:02; Admin Dose 15 UNIT; Start 10/10/16 at 21:00 Montelukast Sodium (Singulair) 10 mg HS PO Last administered on 10/21/16 21:00 ; Admin Dose 10 MG; Start 10/10/16 at 21:00 Theophylline (Benji-24) 300 mg QHS PO Last administered on 10/21/16 21:01; Admin Dose 300 MG; Start 10/10/16 at 21:00 Apixaban (Eliquis) 5 mg BID PO Last administered on 10/22/16 08:45; Admin Dose 5 MG; Start 10/10/16 at 21:00 Digoxin (Digoxin) 0.125 mg DAILY@13 PO Last administered on 10/22/16 12:57; Admin Dose 0.125 MG; Start 10/12/16 at 13:00 Lisinopril (Zestril) 20 mg DAILY PO Last administered on 10/22/16 08:44; Admin Dose 20 MG; Start 10/12/16 at 09:00 Prednisone (Prednisone) 15 mg DAILY PO Last administered on 10/22/16 08:46; Admin Dose 15 MG; Start 10/12/16 at 09:00 СВЕТЛАНА PADRON Oct 22, 2016 13:34
--- NOTE | 2016-10-22 15:21 | PN ---
Date/Time of Note Date/Time of Note DATE: 10/22/16 TIME: 15:20 Assessment/Plan VTE Prophylaxis VTE Prophylaxis Intervention: other Lines/Catheters Urinary Cath still in place: No Assessment/Plan Chief Complaint/Hosp Course 1. Acute on chronic hypoxemic respiratory failure secondary to chronic obstructive pulmonary disease exacerbation and questionable healthcare- associated pneumonia -off Abx, cont Steroid 2. S/p Urinary tract infection. 3. Congestive heart failure. 4. Ischemic cardiomyopathy with a history of automatic implantable cardioverter defibrillator. 5. History of coronary artery stenting. 6. Methicillin-resistant Staphylococcus aureus nares colonization. 7. A fib-stable 8. Hx of Foot Fx- stable -cont splint, Podiatry aware Dispo- awaiting placement PPx Eliquis Problems: Subjective 24 Hr Interval Summary Constitutional: no complaints Exam/Review of Systems Vital Signs Vitals Vital Signs Date Time Temp Pulse Resp B/P Pulse Ox O2 Delivery O2 Flow Rate FiO2 10/22/16 15:05 3.0 10/22/16 09:34 93 10/22/16 09:31 78 20 Nasal Cannula 10/22/16 08:11 97.8 134/67 Intake and Output 10/21/16 10/21/16 10/22/16 15:00 23:00 07:00 Intake Total 2300 ml 322 ml Balance 2300 ml 322 ml Exam Constitutional: alert Respiratory: clear to auscultation Cardiovascular: regular rate and rhythm Gastrointestinal: soft, No distended Musculoskeletal: No nl extremities to inspection Results Result Diagram: 10/19/16 0930 10/19/16 0938 Results 24 hrs Laboratory Tests Test 10/21/16 17:56 10/21/16 20:34 10/22/16 07:49 10/22/16 12:10 Bedside Glucose 177 163 94 107 Medications Medications Current Medications IV Flush (NS 10 ml) 10 ml PRN PRN IV IV PROTOCOL; Start 09/28/16 at 14:00 Ondansetron HCl (Zofran Inj) 4 mg Q6H PRN IV NAUSEA AND/OR VOMITING; Start at 15:00 Nitroglycerin (Nitroglycerin (Sl Tab) 0.4 Mg) 1 tab Q5M PRN SL CHEST PAIN; Start 09/28/16 at 15:00 Acetaminophen (Tylenol Liquid) 650 mg Q6H PRN PO PAIN LEVEL 1-3 OR FEVER; Start 09/28/16 at 15:00 Acetaminophen (Tylenol Tab) 650 mg Q6H PRN PO PAIN LEVEL 1-3 OR FEVER; Start at 15:00 Morphine Sulfate (morphine) 2 mg Q4H PRN IV PAIN LEVEL 7-10 Last administered on 09/29/16 02:30; Admin Dose 2 MG; Start 09/28/16 at 15:00 Lorazepam (Ativan) 1 mg Q2H PRN IV ANXIETY; Start 09/28/16 at 15:00 Docusate Sodium (Colace) 100 mg Q12H PRN PO CONSTIPATION; Start 09/28/16 at 15: 00 Famotidine (Pepcid) 20 mg Q12 PO Last administered on 10/22/16 08:44; Admin Dose 20 MG; Start 09/28/16 at 21:00 Aspirin (Aspirin) 81 mg DAILY PO Last administered on 10/22/16 08:43; Admin Dose 81 MG; Start 09/29/16 at 09:00 Atorvastatin Calcium (Lipitor) 10 mg QHS PO Last administered on 10/21/16 21: 00; Admin Dose 10 MG; Start 09/28/16 at 21:00 Tiotropium [place] (Spiriva) 1 inh DAILY INH ; Start 09/28/16 at 16:00; Status Future Hold Mupirocin (Bactroban) 1 applic BID TOP Last administered on 10/22/16 08:48; Admin Dose 1 APPLIC; Start 09/30/16 at 09:00 Diagnostic Test (Pha) (Accucheck) 1 ea 02 XX Last administered on 10/20/16 01: 36; Admin Dose 1 EA; Start 10/05/16 at 02:00 Miscellaneous Information 1 ea NOTE XX ; Start 10/04/16 at 09:00 Glucose (Glutose) 15 gm Q15M PRN PO DECREASED GLUCOSE; Start 10/04/16 at 09:00 Glucose (Glutose) 22.5 gm Q15M PRN PO DECREASED GLUCOSE; Start 10/04/16 at 09: 00 Dextrose (D50w Syringe) 25 ml Q15M PRN IV DECREASED GLUCOSE; Start 10/04/16 at 09:00 Dextrose (D50w Syringe) 50 ml Q15M PRN IV DECREASED GLUCOSE; Start 10/04/16 at 09:00 Glucagon (Glucagen) 1 mg Q15M PRN IM DECREASED GLUCOSE; Start 10/04/16 at 09:00 Glucose (Glutose) 15 gm Q15M PRN BUCCAL DECREASED GLUCOSE; Start 10/04/16 at 09 :00 Metoprolol Tartrate (Lopressor) 5 mg Q4 PRN IV HR>110 Hold SBP<100; Start 10/05 at 19:30 Metoprolol Succinate (Toprol Xl) 75 mg HS PO Last administered on 10/18/16 20: 12; Admin Dose 75 MG; Start 10/08/16 at 21:00 Metoprolol Succinate (Toprol Xl) 75 mg DAILY PO Last administered on 10/22/16 08:47; Admin Dose 75 MG; Start 10/09/16 at 09:00 Insulin Glargine (Lantus) 15 unit HS SC Last administered on 10/21/16 21:02; Admin Dose 15 UNIT; Start 10/10/16 at 21:00 Montelukast Sodium (Singulair) 10 mg HS PO Last administered on 10/21/16 21:00 ; Admin Dose 10 MG; Start 10/10/16 at 21:00 Theophylline (Benji-24) 300 mg QHS PO Last administered on 10/21/16 21:01; Admin Dose 300 MG; Start 10/10/16 at 21:00 Apixaban (Eliquis) 5 mg BID PO Last administered on 10/22/16 08:45; Admin Dose 5 MG; Start 10/10/16 at 21:00 Digoxin (Digoxin) 0.125 mg DAILY@13 PO Last administered on 10/22/16 12:57; Admin Dose 0.125 MG; Start 10/12/16 at 13:00 Lisinopril (Zestril) 20 mg DAILY PO Last administered on 10/22/16 08:44; Admin Dose 20 MG; Start 10/12/16 at 09:00 Prednisone (Prednisone) 15 mg DAILY PO Last administered on 10/22/16 08:46; Admin Dose 15 MG; Start 10/12/16 at 09:00 Amiodarone HCl (Cordarone) 200 mg DAILY PO ; Start 10/23/16 at 09:00 CRISTINA ZAMANb 16, 2017 15:21
[2016-10-22] MEDS: predniSONE 2.5 MG TAB PO SCH (16:51)
[2016-10-22 20:01] VITALS: BP 113/60; RESP 21
--- NOTE | 2016-10-22 20:53 | RADRPT ---
Vent Rate: 97 bpm RR Interval: 0 msec NV Interval: 208 msec QRS Duration: 104 msec QT Interval: 336 msec QTC Interval: 426 msec P-R-T [place]: 30 - -28 - 137 degrees Sinus rhythm with fusion complexes Anteroseptal infarct , age undetermined ST amp; T wave abnormality, consider lateral ischemia Abnormal ECG Electronically Signed By: Dusty Rodriguez [id number]
[2016-10-22] MEDS: THEOPHYLLINE (SR) 300 MG CAP PO SCH (21:12)
[2016-10-22] MEDS: ATORVASTATIN 10 MG TAB PO SCH (21:12)
[2016-10-22] MEDS: MONTELUKAST 10 MG TAB PO SCH (21:12)
[2016-10-22] MEDS: INSULIN GLARGINE [LANtus] 3 ML PEN SC SCH (21:13)
--- NOTE | 2016-10-22 23:51 | PN ---
Date/Time of Note Date/Time of Note DATE: 10/22/16 TIME: 23:51 Assessment/Plan Lines/Catheters [place] in Place (from [facility]): No Assessment/Plan Problems: (1) Nondisplaced fracture of fourth metatarsal bone, left foot, initial encounter for closed fracture Status: Acute (2) Diabetes mellitus type 2 in nonobese Status: Chronic Assessment/Plan No surgery recommended. Continue compression of the right lower extremity. Partial weightbearing is allowed. Patient will be followed in-house. Subjective 24 Hr Interval Summary Patient was seen at bedside. Patient is in no acute distress. Patient reports no new adverse events. Patient denies fever, chills, nausea or vomiting. Patient denies pain. Patient denies recent trauma. Patient reports bandages are being changed as directed. Patient does not report any new problems. Exam/Review of Systems Vital Signs Vitals Vital Signs Date Time Temp Pulse Resp B/P Pulse Ox O2 Delivery O2 Flow Rate FiO2 11/09/16 13:42 89 20 93 Nasal Cannula 3.0 11/09/16 07:10 98.6 129/69 Intake and Output 11/08/16 11/08/16 11/09/16 15:00 23:00 07:00 Intake Total 100 ml 100 ml 720 ml Output Total 600 ml 400 ml Balance -500 ml 100 ml 320 ml Exam Free Text/Dictation In no acute distress. Edema in the right lower extremity is slightly reduced. No open wound present. Nontender to examination. Palpable pulses but weak bilaterally. Decreased sensation to sharp dull vibratory and temperature stimuli. No other changes noted. Labs reviewed. Results Result Diagram: 11/09/16 0510 11/09/16 0510 JESUS OAKES DPM Oct 22, 2016 23:51
[2016-10-23] MEDS: ALBUTEROL/IPRATROPIUM (NEB) 3 ML AMP HHN SCH ×3 (01:38→19:40)
[2016-10-23] MEDS: ACCU-CHEK XX SCH (01:47)
[2016-10-23] MEDS: FUROSEMIDE 40 MG TAB PO SCH ×2 (06:29→17:01)
[2016-10-23 07:10] VITALS: BP 130/90; RESP 28
[2016-10-23] MEDS: INSULIN ASPART [NOVOLOG] 3 ML PEN SC SCH ×7 (07:35→21:00)
[2016-10-23] MEDS: METOPROLOL (XL) 25 MG TAB PO SCH ×2 (08:33→21:00)
[2016-10-23] MEDS: LISINOPRIL 5 MG TAB PO SCH (08:34)
[2016-10-23] MEDS: predniSONE 5 MG TAB PO SCH (08:34)
[2016-10-23] MEDS: FAMOTIDINE 20 MG TAB PO SCH ×2 (08:34→20:51)
[2016-10-23] MEDS: MUPIROCIN 2% 22 GM OINT TOP SCH ×2 (08:35→20:52)
[2016-10-23] MEDS: APIXABAN 5 MG TABLET PO SCH ×2 (08:35→20:51)
[2016-10-23] MEDS: AMIODARONE 200 MG TAB PO SCH (08:35)
[2016-10-23] MEDS: ASPIRIN 81 MG TAB PO SCH (08:36)
[2016-10-23 09:40] VITALS: PULSE 102
[2016-10-23] MEDS: DIGOXIN 0.125 MG TAB PO SCH (12:29)
--- NOTE | 2016-10-23 14:25 | CONS ---
Date/Time of Note Date/Time of Note DATE: 10/23/16 TIME: 14:23 Assessment/Plan Assessment/Plan Chief Complaint/Hosp Course IMPRESSION: 1. Atrial fibrillation with rapid ventricular response.-improved HR and now in SR by most recent ecg 2. Congestive heart failure, systolic, acute on chronic. 3. History of cardiomyopathy with decreased left ventricular ejection fraction 20% to 25% per chart biopsy. 4. Shortness of breath. 5. Status post hypercapnic respiratory failure, status post extubation. 6. Chronic obstructive pulmonary disease. 7. Hypertension. 8. Dyslipidemia. 9. History of automatic implantable cardioverter-defibrillator with possible discharge.-s/p interrogation with ICD shock for uncontrolled rapid AF. 10. Pneumonia. 11.Positive troponin-minimal with no sig uptrend Recc -Tele -Continue asa/Eliquis -Continue BB/ACEI as tolerated -Continue digoxin -Continue statin -Change Amio now daily -Follow volume status with ongoing lasix diuresis as patient will comply with for volume overload/CHF -awaiting placement Problems: Consultation Date/Type/Reason Admit Date/Time Sep 28, 2016 at 14:41 Initial Consult Date 09/28/16 Type of Consultation: cardiology Reason for Consultation AICD discharge/AF Referring Provider: DEVON MUHAMMAD MD Exam/Review of Systems Vital Signs Vitals Vital Signs Date Time Temp Pulse Resp B/P Pulse Ox O2 Delivery O2 Flow Rate FiO2 10/23/16 09:40 Nasal Cannula 10/23/16 09:40 102 10/23/16 09:02 18 94 3.0 10/23/16 07:10 97.8 130/90 Intake and Output 10/22/16 10/22/16 10/23/16 15:00 23:00 07:00 Intake Total 2580 ml 440 ml Balance 2580 ml 440 ml Exam Review of Systems: CONSTITUTIONAL: No fevers, chills. PULMONARY: No sob CARDIOVASCULAR: No chest pain/palpitations GASTROINTESTINAL: No nausea/vomiting. GENITOURINARY: No hematuria/dysuria. MUSCULOSKELETAL: No myagias/arthalgias. PSYCHIATRIC: The patient denies depression. NEUROLOGIC: No weakness Constitutional: alert, oriented Psych: no complaints Head: normocephalic ENMT: mucosa pink and moist Neck: jvd (9 cm water), supple Respiratory: diminished breath sounds (at bases/B) Gastrointestinal: non-tender, soft Musculoskeletal: muscle tone (normal) Extremities: other (covered by dressing/boot), pitting pedal edema Neurological: other (No focal deficits) Results Result Diagram: 10/19/16 0930 10/19/16 0938 Results 24 hrs Laboratory Tests Test 10/22/16 16:36 10/22/16 21:03 10/23/16 07:25 10/23/16 11:19 Bedside Glucose 156 140 70 136 Medications Medications Current Medications IV Flush (NS 10 ml) 10 ml PRN PRN IV IV PROTOCOL; Start 09/28/16 at 14:00 Ondansetron HCl (Zofran Inj) 4 mg Q6H PRN IV NAUSEA AND/OR VOMITING; Start at 15:00 Nitroglycerin (Nitroglycerin (Sl Tab) 0.4 Mg) 1 tab Q5M PRN SL CHEST PAIN; Start 09/28/16 at 15:00 Acetaminophen (Tylenol Liquid) 650 mg Q6H PRN PO PAIN LEVEL 1-3 OR FEVER; Start 09/28/16 at 15:00 Acetaminophen (Tylenol Tab) 650 mg Q6H PRN PO PAIN LEVEL 1-3 OR FEVER; Start at 15:00 Morphine Sulfate (morphine) 2 mg Q4H PRN IV PAIN LEVEL 7-10 Last administered on 09/29/16 02:30; Admin Dose 2 MG; Start 09/28/16 at 15:00 Lorazepam (Ativan) 1 mg Q2H PRN IV ANXIETY; Start 09/28/16 at 15:00 Docusate Sodium (Colace) 100 mg Q12H PRN PO CONSTIPATION; Start 09/28/16 at 15: 00 Famotidine (Pepcid) 20 mg Q12 PO Last administered on 10/23/16 08:34; Admin Dose 20 MG; Start 09/28/16 at 21:00 Aspirin (Aspirin) 81 mg DAILY PO Last administered on 10/23/16 08:36; Admin Dose 81 MG; Start 09/29/16 at 09:00 Atorvastatin Calcium (Lipitor) 10 mg QHS PO Last administered on 10/22/16 21: 12; Admin Dose 10 MG; Start 09/28/16 at 21:00 Tiotropium [place] (Spiriva) 1 inh DAILY INH ; Start 09/28/16 at 16:00; Status Future Hold Mupirocin (Bactroban) 1 applic BID TOP Last administered on 10/23/16 08:35; Admin Dose 1 APPLIC; Start 09/30/16 at 09:00 Diagnostic Test (Pha) (Accucheck) 1 ea 02 XX Last administered on 10/20/16 01: 36; Admin Dose 1 EA; Start 10/05/16 at 02:00 Miscellaneous Information 1 ea NOTE XX ; Start 10/04/16 at 09:00 Glucose (Glutose) 15 gm Q15M PRN PO DECREASED GLUCOSE; Start 10/04/16 at 09:00 Glucose (Glutose) 22.5 gm Q15M PRN PO DECREASED GLUCOSE; Start 10/04/16 at 09: 00 Dextrose (D50w Syringe) 25 ml Q15M PRN IV DECREASED GLUCOSE; Start 10/04/16 at 09:00 Dextrose (D50w Syringe) 50 ml Q15M PRN IV DECREASED GLUCOSE; Start 10/04/16 at 09:00 Glucagon (Glucagen) 1 mg Q15M PRN IM DECREASED GLUCOSE; Start 10/04/16 at 09:00 Glucose (Glutose) 15 gm Q15M PRN BUCCAL DECREASED GLUCOSE; Start 10/04/16 at 09 :00 Metoprolol Tartrate (Lopressor) 5 mg Q4 PRN IV HR>110 Hold SBP<100; Start 10/05 at 19:30 Metoprolol Succinate (Toprol Xl) 75 mg HS PO Last administered on 10/22/16 21: 11; Admin Dose 75 MG; Start 10/08/16 at 21:00 Metoprolol Succinate (Toprol Xl) 75 mg DAILY PO Last administered on 10/23/16 08:33; Admin Dose 75 MG; Start 10/09/16 at 09:00 Insulin Glargine (Lantus) 15 unit HS SC Last administered on 10/22/16 21:13; Admin Dose 15 UNIT; Start 10/10/16 at 21:00 Montelukast Sodium (Singulair) 10 mg HS PO Last administered on 10/22/16 21:12 ; Admin Dose 10 MG; Start 10/10/16 at 21:00 Theophylline (Benji-24) 300 mg QHS PO Last administered on 10/22/16 21:12; Admin Dose 300 MG; Start 10/10/16 at 21:00 Apixaban (Eliquis) 5 mg BID PO Last administered on 10/23/16 08:35; Admin Dose 5 MG; Start 10/10/16 at 21:00 Digoxin (Digoxin) 0.125 mg DAILY@13 PO Last administered on 10/23/16 12:29; Admin Dose 0.125 MG; Start 10/12/16 at 13:00 Lisinopril (Zestril) 20 mg DAILY PO Last administered on 10/23/16 08:34; Admin Dose 20 MG; Start 10/12/16 at 09:00 Prednisone (Prednisone) 15 mg DAILY PO Last administered on 10/23/16 08:34; Admin Dose 15 MG; Start 10/12/16 at 09:00 Amiodarone HCl (Cordarone) 200 mg DAILY PO Last administered on 10/23/16 08:35 ; Admin Dose 200 MG; Start 10/23/16 at 09:00 СВЕТЛАНА PADRON Oct 23, 2016 14:25
--- NOTE | 2016-10-23 15:07 | PN ---
Date/Time of Note Date/Time of Note DATE: 10/23/16 TIME: 15:07 Assessment/Plan VTE Prophylaxis VTE Prophylaxis Intervention: other Lines/Catheters Urinary Cath still in place: No Assessment/Plan Chief Complaint/Hosp Course 1. Acute on chronic hypoxemic respiratory failure secondary to chronic obstructive pulmonary disease exacerbation and questionable healthcare- associated pneumonia -off Abx, cont Steroid 2. S/p Urinary tract infection. 3. Congestive heart failure. 4. Ischemic cardiomyopathy with a history of automatic implantable cardioverter defibrillator. 5. History of coronary artery stenting. 6. Methicillin-resistant Staphylococcus aureus nares colonization. 7. A fib-stable 8. Hx of Foot Fx- stable -cont splint, Podiatry aware Dispo- awaiting placement PPx Eliquis Problems: Subjective 24 Hr Interval Summary Constitutional: no complaints Exam/Review of Systems Vital Signs Vitals Vital Signs Date Time Temp Pulse Resp B/P Pulse Ox O2 Delivery O2 Flow Rate FiO2 10/23/16 09:40 Nasal Cannula 10/23/16 09:40 102 10/23/16 09:02 18 94 3.0 10/23/16 07:10 97.8 130/90 Intake and Output 10/22/16 10/22/16 10/23/16 15:00 23:00 07:00 Intake Total 2580 ml 440 ml Balance 2580 ml 440 ml Exam Constitutional: alert Respiratory: clear to auscultation Cardiovascular: regular rate and rhythm Gastrointestinal: soft, No distended Musculoskeletal: nl extremities to inspection Results Result Diagram: 10/19/16 0930 10/19/16 0938 Results 24 hrs Laboratory Tests Test 10/22/16 16:36 10/22/16 21:03 10/23/16 07:25 10/23/16 11:19 Bedside Glucose 156 140 70 136 Medications Medications Current Medications IV Flush (NS 10 ml) 10 ml PRN PRN IV IV PROTOCOL; Start 09/28/16 at 14:00 Ondansetron HCl (Zofran Inj) 4 mg Q6H PRN IV NAUSEA AND/OR VOMITING; Start at 15:00 Nitroglycerin (Nitroglycerin (Sl Tab) 0.4 Mg) 1 tab Q5M PRN SL CHEST PAIN; Start 09/28/16 at 15:00 Acetaminophen (Tylenol Liquid) 650 mg Q6H PRN PO PAIN LEVEL 1-3 OR FEVER; Start 09/28/16 at 15:00 Acetaminophen (Tylenol Tab) 650 mg Q6H PRN PO PAIN LEVEL 1-3 OR FEVER; Start at 15:00 Morphine Sulfate (morphine) 2 mg Q4H PRN IV PAIN LEVEL 7-10 Last administered on 09/29/16 02:30; Admin Dose 2 MG; Start 09/28/16 at 15:00 Lorazepam (Ativan) 1 mg Q2H PRN IV ANXIETY; Start 09/28/16 at 15:00 Docusate Sodium (Colace) 100 mg Q12H PRN PO CONSTIPATION; Start 09/28/16 at 15: 00 Famotidine (Pepcid) 20 mg Q12 PO Last administered on 10/23/16 08:34; Admin Dose 20 MG; Start 09/28/16 at 21:00 Aspirin (Aspirin) 81 mg DAILY PO Last administered on 10/23/16 08:36; Admin Dose 81 MG; Start 09/29/16 at 09:00 Atorvastatin Calcium (Lipitor) 10 mg QHS PO Last administered on 10/22/16 21: 12; Admin Dose 10 MG; Start 09/28/16 at 21:00 Tiotropium [place] (Spiriva) 1 inh DAILY INH ; Start 09/28/16 at 16:00; Status Future Hold Mupirocin (Bactroban) 1 applic BID TOP Last administered on 10/23/16 08:35; Admin Dose 1 APPLIC; Start 09/30/16 at 09:00 Diagnostic Test (Pha) (Accucheck) 1 ea 02 XX Last administered on 10/20/16 01: 36; Admin Dose 1 EA; Start 10/05/16 at 02:00 Miscellaneous Information 1 ea NOTE XX ; Start 10/04/16 at 09:00 Glucose (Glutose) 15 gm Q15M PRN PO DECREASED GLUCOSE; Start 10/04/16 at 09:00 Glucose (Glutose) 22.5 gm Q15M PRN PO DECREASED GLUCOSE; Start 10/04/16 at 09: 00 Dextrose (D50w Syringe) 25 ml Q15M PRN IV DECREASED GLUCOSE; Start 10/04/16 at 09:00 Dextrose (D50w Syringe) 50 ml Q15M PRN IV DECREASED GLUCOSE; Start 10/04/16 at 09:00 Glucagon (Glucagen) 1 mg Q15M PRN IM DECREASED GLUCOSE; Start 10/04/16 at 09:00 Glucose (Glutose) 15 gm Q15M PRN BUCCAL DECREASED GLUCOSE; Start 10/04/16 at 09 :00 Metoprolol Tartrate (Lopressor) 5 mg Q4 PRN IV HR>110 Hold SBP<100; Start 10/05 at 19:30 Metoprolol Succinate (Toprol Xl) 75 mg HS PO Last administered on 10/22/16 21: 11; Admin Dose 75 MG; Start 10/08/16 at 21:00 Metoprolol Succinate (Toprol Xl) 75 mg DAILY PO Last administered on 10/23/16 08:33; Admin Dose 75 MG; Start 10/09/16 at 09:00 Insulin Glargine (Lantus) 15 unit HS SC Last administered on 10/22/16 21:13; Admin Dose 15 UNIT; Start 10/10/16 at 21:00 Montelukast Sodium (Singulair) 10 mg HS PO Last administered on 10/22/16 21:12 ; Admin Dose 10 MG; Start 10/10/16 at 21:00 Theophylline (Benji-24) 300 mg QHS PO Last administered on 10/22/16 21:12; Admin Dose 300 MG; Start 10/10/16 at 21:00 Apixaban (Eliquis) 5 mg BID PO Last administered on 10/23/16 08:35; Admin Dose 5 MG; Start 10/10/16 at 21:00 Digoxin (Digoxin) 0.125 mg DAILY@13 PO Last administered on 10/23/16 12:29; Admin Dose 0.125 MG; Start 10/12/16 at 13:00 Lisinopril (Zestril) 20 mg DAILY PO Last administered on 10/23/16 08:34; Admin Dose 20 MG; Start 10/12/16 at 09:00 Prednisone (Prednisone) 15 mg DAILY PO Last administered on 10/23/16 08:34; Admin Dose 15 MG; Start 10/12/16 at 09:00 Amiodarone HCl (Cordarone) 200 mg DAILY PO Last administered on 10/23/16 08:35 ; Admin Dose 200 MG; Start 10/23/16 at 09:00 CRISTINA ZAMAN Oct 23, 2016 15:07
[2016-10-23] MEDS: predniSONE 2.5 MG TAB PO SCH (17:00)
[2016-10-23 20:22] VITALS: BP 94/55; RESP 20
[2016-10-23] MEDS: MONTELUKAST 10 MG TAB PO SCH (20:51)
[2016-10-23] MEDS: ATORVASTATIN 10 MG TAB PO SCH (20:51)
[2016-10-23] MEDS: INSULIN GLARGINE [LANtus] 3 ML PEN SC SCH (20:55)
[2016-10-23 22:00] VITALS: BP 108/55; PULSE 84
[2016-10-23] MEDS: THEOPHYLLINE (SR) 300 MG CAP PO SCH (23:00)
[2016-10-24] MEDS: ACCU-CHEK XX SCH (02:00)
[2016-10-24] MEDS: ALBUTEROL/IPRATROPIUM (NEB) 3 ML AMP HHN SCH ×4 (02:42→19:29)
[2016-10-24] MEDS: FUROSEMIDE 40 MG TAB PO SCH ×3 (05:36→20:23)
[2016-10-24 07:10] VITALS: BP 135/68; RESP 22
[2016-10-24] MEDS: INSULIN ASPART [NOVOLOG] 3 ML PEN SC SCH ×7 (07:35→20:26)
[2016-10-24] MEDS: ASPIRIN 81 MG TAB PO SCH (08:14)
[2016-10-24] MEDS: FAMOTIDINE 20 MG TAB PO SCH ×2 (08:14→20:23)
[2016-10-24] MEDS: MUPIROCIN 2% 22 GM OINT TOP SCH ×2 (08:14→20:27)
[2016-10-24] MEDS: APIXABAN 5 MG TABLET PO SCH ×2 (08:15→20:22)
[2016-10-24] MEDS: METOPROLOL (XL) 25 MG TAB PO SCH (08:15)
[2016-10-24] MEDS: AMIODARONE 200 MG TAB PO SCH ×2 (08:15→20:28)
[2016-10-24] MEDS: predniSONE 5 MG TAB PO SCH (08:16)
[2016-10-24] MEDS: LISINOPRIL 5 MG TAB PO SCH (08:17)
[2016-10-24] MEDS: DIGOXIN 0.125 MG TAB PO SCH (12:06)
--- NOTE | 2016-10-24 13:37 | CONS ---
Date/Time of Note Date/Time of Note DATE: 10/24/16 TIME: 13:33 Assessment/Plan Assessment/Plan Chief Complaint/Hosp Course IMPRESSION: 1. Atrial fibrillation with rapid ventricular response.-improved HR and now back in rate controlled AF/AFL by ECG 10/22 2. Congestive heart failure, systolic, acute on chronic. 3. History of cardiomyopathy with decreased left ventricular ejection fraction 20% to 25% per chart biopsy. 4. Shortness of breath. 5. Status post hypercapnic respiratory failure, status post extubation. 6. Chronic obstructive pulmonary disease. 7. Hypertension. 8. Dyslipidemia. 9. History of automatic implantable cardioverter-defibrillator with possible discharge.-s/p interrogation with ICD shock for uncontrolled rapid AF. 10. Pneumonia. 11.Positive troponin-minimal with no sig uptrend Recc -Tele -Continue asa/Eliquis -ACEI as tolerated -Will make slight decrease to BB to allow poatient to better tolerate -Continue digoxin -Continue statin -Increrase amio back to bid in attempt to return patient to SR -Follow volume status with ongoing lasix diuresis as patient will comply with for volume overload/CHF and will change evening dose to 1700 dosing schedule from 2100 due to frequent urination overnight -awaiting placement Problems: Consultation Date/Type/Reason Admit Date/Time Sep 28, 2016 at 14:41 Initial Consult Date 09/28/16 Type of Consultation: cardiology Reason for Consultation AICD discharge/AF Referring Provider: DEVON MUHAMMAD MD Exam/Review of Systems Vital Signs Vitals Vital Signs Date Time Temp Pulse Resp B/P Pulse Ox O2 Delivery O2 Flow Rate FiO2 10/24/16 09:40 Nasal Cannula 10/24/16 07:38 3.0 10/24/16 07:38 68 20 95 10/24/16 07:10 97.5 135/68 Intake and Output 10/23/16 10/23/16 10/24/16 15:00 23:00 07:00 Intake Total 880 ml 600 ml Balance 880 ml 600 ml Exam Review of Systems: CONSTITUTIONAL: No fevers, chills. PULMONARY: No sob CARDIOVASCULAR: No chest pain/palpitations GASTROINTESTINAL: No nausea/vomiting. GENITOURINARY: No hematuria/dysuria. MUSCULOSKELETAL: No myagias/arthalgias. PSYCHIATRIC: The patient denies depression. NEUROLOGIC: No weakness Constitutional: alert, oriented Psych: no complaints Head: normocephalic ENMT: mucosa pink and moist Neck: jvd (9 cm water), supple Respiratory: diminished breath sounds (at bases/B) Cardiovascular: regular rate and rhythm Gastrointestinal: non-tender, soft Musculoskeletal: muscle tone (normal) Extremities: edema (trace), other (foot in boot) Neurological: other (NO focal deficits) Results Results 24 hrs Laboratory Tests Test 10/23/16 16:38 10/23/16 20:48 10/24/16 07:43 10/24/16 11:35 Bedside Glucose 204 162 92 219 Medications Medications Current Medications IV Flush (NS 10 ml) 10 ml PRN PRN IV IV PROTOCOL; Start 09/28/16 at 14:00 Ondansetron HCl (Zofran Inj) 4 mg Q6H PRN IV NAUSEA AND/OR VOMITING; Start at 15:00 Nitroglycerin (Nitroglycerin (Sl Tab) 0.4 Mg) 1 tab Q5M PRN SL CHEST PAIN; Start 09/28/16 at 15:00 Acetaminophen (Tylenol Liquid) 650 mg Q6H PRN PO PAIN LEVEL 1-3 OR FEVER; Start 09/28/16 at 15:00 Acetaminophen (Tylenol Tab) 650 mg Q6H PRN PO PAIN LEVEL 1-3 OR FEVER; Start at 15:00 Morphine Sulfate (morphine) 2 mg Q4H PRN IV PAIN LEVEL 7-10 Last administered on 09/29/16 02:30; Admin Dose 2 MG; Start 09/28/16 at 15:00 Lorazepam (Ativan) 1 mg Q2H PRN IV ANXIETY; Start 09/28/16 at 15:00 Docusate Sodium (Colace) 100 mg Q12H PRN PO CONSTIPATION; Start 09/28/16 at 15: 00 Famotidine (Pepcid) 20 mg Q12 PO Last administered on 10/24/16 08:14; Admin Dose 20 MG; Start 09/28/16 at 21:00 Aspirin (Aspirin) 81 mg DAILY PO Last administered on 10/24/16 08:14; Admin Dose 81 MG; Start 09/29/16 at 09:00 Atorvastatin Calcium (Lipitor) 10 mg QHS PO Last administered on 10/23/16 20: 51; Admin Dose 10 MG; Start 09/28/16 at 21:00 Tiotropium [place] (Spiriva) 1 inh DAILY INH ; Start 09/28/16 at 16:00; Status Future Hold Mupirocin (Bactroban) 1 applic BID TOP Last administered on 10/24/16 08:14; Admin Dose 1 APPLIC; Start 09/30/16 at 09:00 Diagnostic Test (Pha) (Accucheck) 1 ea 02 XX Last administered on 10/20/16 01: 36; Admin Dose 1 EA; Start 10/05/16 at 02:00 Miscellaneous Information 1 ea NOTE XX ; Start 10/04/16 at 09:00 Glucose (Glutose) 15 gm Q15M PRN PO DECREASED GLUCOSE; Start 10/04/16 at 09:00 Glucose (Glutose) 22.5 gm Q15M PRN PO DECREASED GLUCOSE; Start 10/04/16 at 09: 00 Dextrose (D50w Syringe) 25 ml Q15M PRN IV DECREASED GLUCOSE; Start 10/04/16 at 09:00 Dextrose (D50w Syringe) 50 ml Q15M PRN IV DECREASED GLUCOSE; Start 10/04/16 at 09:00 Glucagon (Glucagen) 1 mg Q15M PRN IM DECREASED GLUCOSE; Start 10/04/16 at 09:00 Glucose (Glutose) 15 gm Q15M PRN BUCCAL DECREASED GLUCOSE; Start 10/04/16 at 09 :00 Metoprolol Tartrate (Lopressor) 5 mg Q4 PRN IV HR>110 Hold SBP<100; Start 10/05 at 19:30 Metoprolol Succinate (Toprol Xl) 75 mg HS PO Last administered on 10/22/16 21: 11; Admin Dose 75 MG; Start 10/08/16 at 21:00 Metoprolol Succinate (Toprol Xl) 75 mg DAILY PO Last administered on 10/24/16 08:15; Admin Dose 75 MG; Start 10/09/16 at 09:00 Insulin Glargine (Lantus) 15 unit HS SC Last administered on 10/23/16 20:55; Admin Dose 15 UNIT; Start 10/10/16 at 21:00 Montelukast Sodium (Singulair) 10 mg HS PO Last administered on 10/23/16 20:51 ; Admin Dose 10 MG; Start 10/10/16 at 21:00 Theophylline (Benji-24) 300 mg QHS PO Last administered on 10/23/16 23:00; Admin Dose 300 MG; Start 10/10/16 at 21:00 Apixaban (Eliquis) 5 mg BID PO Last administered on 10/24/16 08:15; Admin Dose 5 MG; Start 10/10/16 at 21:00 Digoxin (Digoxin) 0.125 mg DAILY@13 PO Last administered on 10/24/16 12:06; Admin Dose 0.125 MG; Start 10/12/16 at 13:00 Lisinopril (Zestril) 20 mg DAILY PO Last administered on 10/24/16 08:17; Admin Dose 20 MG; Start 10/12/16 at 09:00 Prednisone (Prednisone) 15 mg DAILY PO Last administered on 10/24/16 08:16; Admin Dose 15 MG; Start 10/12/16 at 09:00 Amiodarone HCl (Cordarone) 200 mg DAILY PO Last administered on 10/24/16 08:15 ; Admin Dose 200 MG; Start 10/23/16 at 09:00 СВЕТЛАНА PADRON Oct 24, 2016 13:37
--- NOTE | 2016-10-24 17:30 | PN ---
Date/Time of Note Date/Time of Note DATE: 10/24/16 TIME: 17:30 Assessment/Plan VTE Prophylaxis VTE Prophylaxis Intervention: other Lines/Catheters Urinary Cath still in place: No Assessment/Plan Chief Complaint/Hosp Course 1. Acute on chronic hypoxemic respiratory failure secondary to chronic obstructive pulmonary disease exacerbation and questionable healthcare- associated pneumonia -off Abx, cont Steroid 2. S/p Urinary tract infection. 3. Congestive heart failure. 4. Ischemic cardiomyopathy with a history of automatic implantable cardioverter defibrillator. 5. History of coronary artery stenting. 6. Methicillin-resistant Staphylococcus aureus nares colonization. 7. A fib-stable 8. Hx of Foot Fx- stable -cont splint, Podiatry aware Dispo- awaiting placement PPx Eliquis Problems: Subjective 24 Hr Interval Summary Constitutional: no complaints Exam/Review of Systems Vital Signs Vitals Vital Signs Date Time Temp Pulse Resp B/P Pulse Ox O2 Delivery O2 Flow Rate FiO2 10/24/16 14:20 72 18 96 Nasal Cannula 3.0 10/24/16 07:10 97.5 135/68 Intake and Output 10/23/16 10/23/16 10/24/16 15:00 23:00 07:00 Intake Total 880 ml 600 ml Balance 880 ml 600 ml Exam Constitutional: alert Respiratory: clear to auscultation Cardiovascular: regular rate and rhythm Gastrointestinal: soft, No distended Musculoskeletal: nl extremities to inspection Results Results 24 hrs Laboratory Tests Test 10/23/16 20:48 10/24/16 07:43 10/24/16 11:35 Bedside Glucose 162 92 219 Medications Medications Current Medications IV Flush (NS 10 ml) 10 ml PRN PRN IV IV PROTOCOL; Start 09/28/16 at 14:00 Ondansetron HCl (Zofran Inj) 4 mg Q6H PRN IV NAUSEA AND/OR VOMITING; Start at 15:00 Nitroglycerin (Nitroglycerin (Sl Tab) 0.4 Mg) 1 tab Q5M PRN SL CHEST PAIN; Start 09/28/16 at 15:00 Acetaminophen (Tylenol Liquid) 650 mg Q6H PRN PO PAIN LEVEL 1-3 OR FEVER; Start 09/28/16 at 15:00 Acetaminophen (Tylenol Tab) 650 mg Q6H PRN PO PAIN LEVEL 1-3 OR FEVER; Start at 15:00 Morphine Sulfate (morphine) 2 mg Q4H PRN IV PAIN LEVEL 7-10 Last administered on 09/29/16 02:30; Admin Dose 2 MG; Start 09/28/16 at 15:00 Lorazepam (Ativan) 1 mg Q2H PRN IV ANXIETY; Start 09/28/16 at 15:00 Docusate Sodium (Colace) 100 mg Q12H PRN PO CONSTIPATION; Start 09/28/16 at 15: 00 Famotidine (Pepcid) 20 mg Q12 PO Last administered on 10/24/16 08:14; Admin Dose 20 MG; Start 09/28/16 at 21:00 Aspirin (Aspirin) 81 mg DAILY PO Last administered on 10/24/16 08:14; Admin Dose 81 MG; Start 09/29/16 at 09:00 Atorvastatin Calcium (Lipitor) 10 mg QHS PO Last administered on 10/23/16 20: 51; Admin Dose 10 MG; Start 09/28/16 at 21:00 Tiotropium [place] (Spiriva) 1 inh DAILY INH ; Start 09/28/16 at 16:00; Status Future Hold Mupirocin (Bactroban) 1 applic BID TOP Last administered on 10/24/16 08:14; Admin Dose 1 APPLIC; Start 09/30/16 at 09:00 Diagnostic Test (Pha) (Accucheck) 1 ea 02 XX Last administered on 10/20/16 01: 36; Admin Dose 1 EA; Start 10/05/16 at 02:00 Miscellaneous Information 1 ea NOTE XX ; Start 10/04/16 at 09:00 Glucose (Glutose) 15 gm Q15M PRN PO DECREASED GLUCOSE; Start 10/04/16 at 09:00 Glucose (Glutose) 22.5 gm Q15M PRN PO DECREASED GLUCOSE; Start 10/04/16 at 09: 00 Dextrose (D50w Syringe) 25 ml Q15M PRN IV DECREASED GLUCOSE; Start 10/04/16 at 09:00 Dextrose (D50w Syringe) 50 ml Q15M PRN IV DECREASED GLUCOSE; Start 10/04/16 at 09:00 Glucagon (Glucagen) 1 mg Q15M PRN IM DECREASED GLUCOSE; Start 10/04/16 at 09:00 Glucose (Glutose) 15 gm Q15M PRN BUCCAL DECREASED GLUCOSE; Start 10/04/16 at 09 :00 Metoprolol Tartrate (Lopressor) 5 mg Q4 PRN IV HR>110 Hold SBP<100; Start 10/05 at 19:30 Insulin Glargine (Lantus) 15 unit HS SC Last administered on 10/23/16 20:55; Admin Dose 15 UNIT; Start 10/10/16 at 21:00 Montelukast Sodium (Singulair) 10 mg HS PO Last administered on 10/23/16 20:51 ; Admin Dose 10 MG; Start 10/10/16 at 21:00 Theophylline (Benji-24) 300 mg QHS PO Last administered on 10/23/16 23:00; Admin Dose 300 MG; Start 10/10/16 at 21:00 Apixaban (Eliquis) 5 mg BID PO Last administered on 10/24/16 08:15; Admin Dose 5 MG; Start 10/10/16 at 21:00 Digoxin (Digoxin) 0.125 mg DAILY@13 PO Last administered on 10/24/16 12:06; Admin Dose 0.125 MG; Start 10/12/16 at 13:00 Lisinopril (Zestril) 20 mg DAILY PO Last administered on 10/24/16 08:17; Admin Dose 20 MG; Start 10/12/16 at 09:00 Prednisone (Prednisone) 15 mg DAILY PO Last administered on 10/24/16 08:16; Admin Dose 15 MG; Start 10/12/16 at 09:00 Furosemide (Lasix) 40 mg AM PO ; Start 10/25/16 at 09:00 Metoprolol Succinate (Toprol Xl) 50 mg HS PO ; Start 10/24/16 at 21:00 Metoprolol Succinate (Toprol Xl) 50 mg DAILY PO ; Start 10/25/16 at 09:00 Furosemide (Lasix) 40 mg HS PO ; Start 10/24/16 at 17:00 Amiodarone HCl (Cordarone) 200 mg BID PO ; Start 10/24/16 at 21:00 CRISTINA ZAMAN Oct 24, 2016 17:30
[2016-10-24] MEDS: predniSONE 2.5 MG TAB PO SCH (18:03)
[2016-10-24] MEDS: THEOPHYLLINE (SR) 300 MG CAP PO SCH (20:21)
[2016-10-24] MEDS: MONTELUKAST 10 MG TAB PO SCH (20:22)
[2016-10-24] MEDS: ATORVASTATIN 10 MG TAB PO SCH (20:23)
[2016-10-24] MEDS: METOPROLOL (XL) 50 MG TAB PO SCH (20:24)
[2016-10-24] MEDS: INSULIN GLARGINE [LANtus] 3 ML PEN SC SCH (20:26)
[2016-10-24 20:42] VITALS: BP 109/73; RESP 20
--- NOTE | 2016-10-24 23:51 | PN ---
Date/Time of Note Date/Time of Note DATE: 10/24/16 TIME: 23:51 Assessment/Plan Lines/Catheters [place]ru[place] in Place (from [facility]): No Assessment/Plan Problems: (1) Left foot pain (2) Nondisplaced fracture of fourth metatarsal bone, left foot, initial encounter for closed fracture Status: Acute (3) Diabetes mellitus type 2 in nonobese Status: Chronic (4) COPD with acute exacerbation Status: Chronic Assessment/Plan Continue to monitor. Physical therapy for evaluation and partial weightbearing. Patient will be followed. Subjective 24 Hr Interval Summary Patient seen and examined at bedside. Denies any pain today. Reports no fall and denies any trauma. Exam/Review of Systems Vital Signs Vitals Vital Signs Date Time Temp Pulse Resp B/P Pulse Ox O2 Delivery O2 Flow Rate FiO2 11/16/16 10:56 Nasal Cannula 3.0 11/16/16 08:24 72 18 93 11/16/16 07:38 100.2 104/64 Intake and Output 11/15/16 11/15/16 11/16/16 15:00 23:00 07:00 Intake Total 980 ml 240 ml Output Total 1020 ml 550 ml Balance -40 ml -310 ml Exam Free Text/Dictation In no acute distress. Bilateral lower extremity edema continues. No open wound noted. No area of tenderness to palpation. Dorsalis pedis and posterior tibial pulse is weakly palpable secondary to the edema present. Results Result Diagram: 11/14/16 0440 11/15/16 0750 JESUS OAKES DPM Oct 24, 2016 23:51
[2016-10-25] MEDS: ALBUTEROL/IPRATROPIUM (NEB) 3 ML AMP HHN SCH ×4 (01:39→19:33)
[2016-10-25] MEDS: ACCU-CHEK XX SCH (02:00)
[2016-10-25] MEDS: INSULIN ASPART [NOVOLOG] 3 ML PEN SC SCH ×7 (08:00→21:00)
[2016-10-25 08:24] VITALS: BP 120/67; RESP 21
[2016-10-25] MEDS: APIXABAN 5 MG TABLET PO SCH ×2 (08:39→20:54)
[2016-10-25] MEDS: AMIODARONE 200 MG TAB PO SCH ×2 (08:39→20:50)
[2016-10-25] MEDS: ASPIRIN 81 MG TAB PO SCH (08:39)
[2016-10-25] MEDS: LISINOPRIL 5 MG TAB PO SCH (08:40)
[2016-10-25] MEDS: predniSONE 5 MG TAB PO SCH (08:40)
[2016-10-25] MEDS: FAMOTIDINE 20 MG TAB PO SCH ×2 (08:40→20:54)
[2016-10-25] MEDS: MUPIROCIN 2% 22 GM OINT TOP SCH ×2 (08:41→21:02)
[2016-10-25] MEDS: FUROSEMIDE 40 MG TAB PO SCH ×2 (08:46→20:51)
[2016-10-25] MEDS: METOPROLOL (XL) 50 MG TAB PO SCH ×2 (12:14→20:52)
--- NOTE | 2016-10-25 12:54 | CONS ---
Date/Time of Note Date/Time of Note DATE: 10/25/16 TIME: 12:47 Assessment/Plan Assessment/Plan Chief Complaint/Hosp Course IMPRESSION: 1. Atrial fibrillation with rapid ventricular response.-improved HR and now back in rate controlled AF/AFL by ECG 10/22 2. Congestive heart failure, systolic, acute on chronic. 3. History of cardiomyopathy with decreased left ventricular ejection fraction 20% to 25% per chart biopsy. 4. Shortness of breath. 5. Status post hypercapnic respiratory failure, status post extubation. 6. Chronic obstructive pulmonary disease. 7. Hypertension. 8. Dyslipidemia. 9. History of automatic implantable cardioverter-defibrillator with possible discharge.-s/p interrogation with ICD shock for uncontrolled rapid AF. 10. Pneumonia. 11.Positive troponin-minimal with no sig uptrend Recc -Tele -Continue asa/Eliquis -ACEI/BB as tolerated -Continue digoxin -Continue statin -Increase amio back to bid in attempt to return patient to SR -Follow volume status with ongoing lasix diuresis as patient will comply -awaiting placement Problems: Consultation Date/Type/Reason Admit Date/Time Sep 28, 2016 at 14:41 Initial Consult Date 09/28/16 Type of Consultation: cardiology Reason for Consultation AICD discharge/CMY Referring Provider: DEVON MUHAMMAD MD Exam/Review of Systems Vital Signs Vitals Vital Signs Date Time Temp Pulse Resp B/P Pulse Ox O2 Delivery O2 Flow Rate FiO2 10/25/16 08:24 98.1 78 21 120/67 91 10/25/16 08:00 Nasal Cannula 2.0 Intake and Output 10/24/16 10/24/16 10/25/16 15:00 23:00 07:00 Intake Total 890 ml 1000 ml Balance 890 ml 1000 ml Exam Review of Systems: CONSTITUTIONAL: No fevers, chills. PULMONARY: No sob CARDIOVASCULAR: No chest pain/palpitations GASTROINTESTINAL: No nausea/vomiting. GENITOURINARY: No hematuria/dysuria. MUSCULOSKELETAL: No myagias/arthalgias. PSYCHIATRIC: The patient denies depression. NEUROLOGIC: No weakness Constitutional: alert, oriented Psych: no complaints ENMT: mucosa pink and moist Neck: jvd (9 cm water), supple Respiratory: clear to auscultation Cardiovascular: regular rate and rhythm Gastrointestinal: non-tender, soft Musculoskeletal: muscle tone Extremities: pitting pedal edema Neurological: other (No focal deficits) Results Results 24 hrs Laboratory Tests Test 10/24/16 20:20 10/25/16 01:36 10/25/16 07:49 10/25/16 12:11 Bedside Glucose 195 124 108 144 Medications Medications Current Medications IV Flush (NS 10 ml) 10 ml PRN PRN IV IV PROTOCOL; Start 09/28/16 at 14:00 Ondansetron HCl (Zofran Inj) 4 mg Q6H PRN IV NAUSEA AND/OR VOMITING; Start at 15:00 Nitroglycerin (Nitroglycerin (Sl Tab) 0.4 Mg) 1 tab Q5M PRN SL CHEST PAIN; Start 09/28/16 at 15:00 Acetaminophen (Tylenol Liquid) 650 mg Q6H PRN PO PAIN LEVEL 1-3 OR FEVER; Start 09/28/16 at 15:00 Acetaminophen (Tylenol Tab) 650 mg Q6H PRN PO PAIN LEVEL 1-3 OR FEVER; Start at 15:00 Morphine Sulfate (morphine) 2 mg Q4H PRN IV PAIN LEVEL 7-10 Last administered on 09/29/16 02:30; Admin Dose 2 MG; Start 09/28/16 at 15:00 Lorazepam (Ativan) 1 mg Q2H PRN IV ANXIETY; Start 09/28/16 at 15:00 Docusate Sodium (Colace) 100 mg Q12H PRN PO CONSTIPATION; Start 09/28/16 at 15: 00 Famotidine (Pepcid) 20 mg Q12 PO Last administered on 10/25/16 08:40; Admin Dose 20 MG; Start 09/28/16 at 21:00 Aspirin (Aspirin) 81 mg DAILY PO Last administered on 10/25/16 08:39; Admin Dose 81 MG; Start 09/29/16 at 09:00 Atorvastatin Calcium (Lipitor) 10 mg QHS PO Last administered on 10/24/16 20: 23; Admin Dose 10 MG; Start 09/28/16 at 21:00 Tiotropium [place] (Spiriva) 1 inh DAILY INH ; Start 09/28/16 at 16:00; Status Future Hold Mupirocin (Bactroban) 1 applic BID TOP Last administered on 10/25/16 08:41; Admin Dose 1 APPLIC; Start 09/30/16 at 09:00 Diagnostic Test (Pha) (Accucheck) 1 ea 02 XX Last administered on 10/20/16 01: 36; Admin Dose 1 EA; Start 10/05/16 at 02:00 Miscellaneous Information 1 ea NOTE XX ; Start 10/04/16 at 09:00 Glucose (Glutose) 15 gm Q15M PRN PO DECREASED GLUCOSE; Start 10/04/16 at 09:00 Glucose (Glutose) 22.5 gm Q15M PRN PO DECREASED GLUCOSE; Start 10/04/16 at 09: 00 Dextrose (D50w Syringe) 25 ml Q15M PRN IV DECREASED GLUCOSE; Start 10/04/16 at 09:00 Dextrose (D50w Syringe) 50 ml Q15M PRN IV DECREASED GLUCOSE; Start 10/04/16 at 09:00 Glucagon (Glucagen) 1 mg Q15M PRN IM DECREASED GLUCOSE; Start 10/04/16 at 09:00 Glucose (Glutose) 15 gm Q15M PRN BUCCAL DECREASED GLUCOSE; Start 10/04/16 at 09 :00 Metoprolol Tartrate (Lopressor) 5 mg Q4 PRN IV HR>110 Hold SBP<100; Start 10/05 at 19:30 Insulin Glargine (Lantus) 15 unit HS SC Last administered on 10/24/16 20:26; Admin Dose 15 UNIT; Start 10/10/16 at 21:00 Montelukast Sodium (Singulair) 10 mg HS PO Last administered on 10/24/16 20:22 ; Admin Dose 10 MG; Start 10/10/16 at 21:00 Theophylline (Benji-24) 300 mg QHS PO Last administered on 10/24/16 20:21; Admin Dose 300 MG; Start 10/10/16 at 21:00 Apixaban (Eliquis) 5 mg BID PO Last administered on 10/25/16 08:39; Admin Dose 5 MG; Start 10/10/16 at 21:00 Digoxin (Digoxin) 0.125 mg DAILY@13 PO Last administered on 10/24/16 12:06; Admin Dose 0.125 MG; Start 10/12/16 at 13:00 Lisinopril (Zestril) 20 mg DAILY PO Last administered on 10/25/16 08:40; Admin Dose 20 MG; Start 10/12/16 at 09:00 Prednisone (Prednisone) 15 mg DAILY PO Last administered on 10/25/16 08:40; Admin Dose 15 MG; Start 10/12/16 at 09:00 Furosemide (Lasix) 40 mg AM PO Last administered on 10/25/16 08:46; Admin Dose 40 MG; Start 10/25/16 at 09:00 Metoprolol Succinate (Toprol Xl) 50 mg HS PO Last administered on 10/24/16 20: 24; Admin Dose 50 MG; Start 10/24/16 at 21:00 Metoprolol Succinate (Toprol Xl) 50 mg DAILY PO Last administered on 10/25/16 12:14; Admin Dose 50 MG; Start 10/25/16 at 09:00 Furosemide (Lasix) 40 mg HS PO Last administered on 10/24/16 20:23; Admin Dose 40 MG; Start 10/24/16 at 17:00 Amiodarone HCl (Cordarone) 200 mg BID PO Last administered on 10/25/16 08:39; Admin Dose 200 MG; Start 10/24/16 at 21:00 СВЕТЛАНА PADRON Oct 25, 2016 12:53
[2016-10-25] MEDS: DIGOXIN 0.125 MG TAB PO SCH (12:59)
--- NOTE | 2016-10-25 14:21 | PN ---
Date/Time of Note Date/Time of Note DATE: 10/25/16 TIME: 14:21 Assessment/Plan VTE Prophylaxis VTE Prophylaxis Intervention: other Lines/Catheters Urinary Cath still in place: No Assessment/Plan Chief Complaint/Hosp Course 1. Acute on chronic hypoxemic respiratory failure secondary to chronic obstructive pulmonary disease exacerbation and questionable healthcare- associated pneumonia -off Abx, cont Steroid 2. S/p Urinary tract infection. 3. Congestive heart failure. 4. Ischemic cardiomyopathy with a history of automatic implantable cardioverter defibrillator. 5. History of coronary artery stenting. 6. Methicillin-resistant Staphylococcus aureus nares colonization. 7. A fib-stable 8. Hx of Foot Fx- stable -cont splint, Podiatry aware Dispo- awaiting placement PPx Eliquis Problems: Subjective 24 Hr Interval Summary Constitutional: no complaints Exam/Review of Systems Vital Signs Vitals Vital Signs Date Time Temp Pulse Resp B/P Pulse Ox O2 Delivery O2 Flow Rate FiO2 10/25/16 08:24 98.1 78 21 120/67 91 10/25/16 08:00 Nasal Cannula 2.0 Intake and Output 10/24/16 10/24/16 10/25/16 15:00 23:00 07:00 Intake Total 890 ml 1000 ml Balance 890 ml 1000 ml Exam Constitutional: alert Respiratory: clear to auscultation Cardiovascular: regular rate and rhythm Gastrointestinal: soft, No distended Musculoskeletal: nl extremities to inspection Results Results 24 hrs Laboratory Tests Test 10/24/16 20:20 10/25/16 01:36 10/25/16 07:49 10/25/16 12:11 Bedside Glucose 195 124 108 144 Medications Medications Current Medications IV Flush (NS 10 ml) 10 ml PRN PRN IV IV PROTOCOL; Start 09/28/16 at 14:00 Ondansetron HCl (Zofran Inj) 4 mg Q6H PRN IV NAUSEA AND/OR VOMITING; Start at 15:00 Nitroglycerin (Nitroglycerin (Sl Tab) 0.4 Mg) 1 tab Q5M PRN SL CHEST PAIN; Start 09/28/16 at 15:00 Acetaminophen (Tylenol Liquid) 650 mg Q6H PRN PO PAIN LEVEL 1-3 OR FEVER; Start 09/28/16 at 15:00 Acetaminophen (Tylenol Tab) 650 mg Q6H PRN PO PAIN LEVEL 1-3 OR FEVER; Start at 15:00 Morphine Sulfate (morphine) 2 mg Q4H PRN IV PAIN LEVEL 7-10 Last administered on 09/29/16 02:30; Admin Dose 2 MG; Start 09/28/16 at 15:00 Lorazepam (Ativan) 1 mg Q2H PRN IV ANXIETY; Start 09/28/16 at 15:00 Docusate Sodium (Colace) 100 mg Q12H PRN PO CONSTIPATION; Start 09/28/16 at 15: 00 Famotidine (Pepcid) 20 mg Q12 PO Last administered on 10/25/16 08:40; Admin Dose 20 MG; Start 09/28/16 at 21:00 Aspirin (Aspirin) 81 mg DAILY PO Last administered on 10/25/16 08:39; Admin Dose 81 MG; Start 09/29/16 at 09:00 Atorvastatin Calcium (Lipitor) 10 mg QHS PO Last administered on 10/24/16 20: 23; Admin Dose 10 MG; Start 09/28/16 at 21:00 Tiotropium [place] (Spiriva) 1 inh DAILY INH ; Start 09/28/16 at 16:00; Status Future Hold Mupirocin (Bactroban) 1 applic BID TOP Last administered on 10/25/16 08:41; Admin Dose 1 APPLIC; Start 09/30/16 at 09:00 Diagnostic Test (Pha) (Accucheck) 1 ea 02 XX Last administered on 10/20/16 01: 36; Admin Dose 1 EA; Start 10/05/16 at 02:00 Miscellaneous Information 1 ea NOTE XX ; Start 10/04/16 at 09:00 Glucose (Glutose) 15 gm Q15M PRN PO DECREASED GLUCOSE; Start 10/04/16 at 09:00 Glucose (Glutose) 22.5 gm Q15M PRN PO DECREASED GLUCOSE; Start 10/04/16 at 09: 00 Dextrose (D50w Syringe) 25 ml Q15M PRN IV DECREASED GLUCOSE; Start 10/04/16 at 09:00 Dextrose (D50w Syringe) 50 ml Q15M PRN IV DECREASED GLUCOSE; Start 10/04/16 at 09:00 Glucagon (Glucagen) 1 mg Q15M PRN IM DECREASED GLUCOSE; Start 10/04/16 at 09:00 Glucose (Glutose) 15 gm Q15M PRN BUCCAL DECREASED GLUCOSE; Start 10/04/16 at 09 :00 Metoprolol Tartrate (Lopressor) 5 mg Q4 PRN IV HR>110 Hold SBP<100; Start 10/05 at 19:30 Insulin Glargine (Lantus) 15 unit HS SC Last administered on 10/24/16 20:26; Admin Dose 15 UNIT; Start 10/10/16 at 21:00 Montelukast Sodium (Singulair) 10 mg HS PO Last administered on 10/24/16 20:22 ; Admin Dose 10 MG; Start 10/10/16 at 21:00 Theophylline (Benji-24) 300 mg QHS PO Last administered on 10/24/16 20:21; Admin Dose 300 MG; Start 10/10/16 at 21:00 Apixaban (Eliquis) 5 mg BID PO Last administered on 10/25/16 08:39; Admin Dose 5 MG; Start 10/10/16 at 21:00 Digoxin (Digoxin) 0.125 mg DAILY@13 PO Last administered on 10/25/16 12:59; Admin Dose 0.125 MG; Start 10/12/16 at 13:00 Lisinopril (Zestril) 20 mg DAILY PO Last administered on 10/25/16 08:40; Admin Dose 20 MG; Start 10/12/16 at 09:00 Prednisone (Prednisone) 15 mg DAILY PO Last administered on 10/25/16 08:40; Admin Dose 15 MG; Start 10/12/16 at 09:00 Furosemide (Lasix) 40 mg AM PO Last administered on 10/25/16 08:46; Admin Dose 40 MG; Start 10/25/16 at 09:00 Metoprolol Succinate (Toprol Xl) 50 mg HS PO Last administered on 10/24/16 20: 24; Admin Dose 50 MG; Start 10/24/16 at 21:00 Metoprolol Succinate (Toprol Xl) 50 mg DAILY PO Last administered on 10/25/16 12:14; Admin Dose 50 MG; Start 10/25/16 at 09:00 Furosemide (Lasix) 40 mg HS PO Last administered on 10/24/16 20:23; Admin Dose 40 MG; Start 10/24/16 at 17:00 Amiodarone HCl (Cordarone) 200 mg BID PO Last administered on 10/25/16t 08:39; Admin Dose 200 MG; Start 10/24/16 at 21:00 CRISTINA ZAMAN Oct 25, 2016 14:21
[2016-10-25] MEDS: predniSONE 2.5 MG TAB PO SCH (17:20)
[2016-10-25 20:10] VITALS: BP 118/67; RESP 20
[2016-10-25] MEDS: THEOPHYLLINE (SR) 300 MG CAP PO SCH (20:47)
[2016-10-25] MEDS: ATORVASTATIN 10 MG TAB PO SCH (20:48)
[2016-10-25] MEDS: MONTELUKAST 10 MG TAB PO SCH (20:55)
[2016-10-25] MEDS: INSULIN GLARGINE [LANtus] 3 ML PEN SC SCH (21:01)
[2016-10-26] MEDS: ALBUTEROL/IPRATROPIUM (NEB) 3 ML AMP HHN SCH ×4 (02:00→19:55)
[2016-10-26] MEDS: ACCU-CHEK XX SCH (02:00)
[2016-10-26 07:14] VITALS: BP 140/78; RESP 16
[2016-10-26] MEDS: LISINOPRIL 5 MG TAB PO SCH (08:17)
[2016-10-26] MEDS: APIXABAN 5 MG TABLET PO SCH ×2 (08:17→20:46)
[2016-10-26] MEDS: FAMOTIDINE 20 MG TAB PO SCH ×2 (08:17→20:46)
[2016-10-26] MEDS: ASPIRIN 81 MG TAB PO SCH (08:17)
[2016-10-26] MEDS: FUROSEMIDE 40 MG TAB PO SCH ×2 (08:17→17:17)
[2016-10-26] MEDS: AMIODARONE 200 MG TAB PO SCH ×2 (08:18→20:46)
[2016-10-26] MEDS: predniSONE 5 MG TAB PO SCH (08:18)
[2016-10-26] MEDS: MUPIROCIN 2% 22 GM OINT TOP SCH ×2 (08:18→20:46)
[2016-10-26] MEDS: METOPROLOL (XL) 50 MG TAB PO SCH (08:19)
[2016-10-26] MEDS: INSULIN ASPART [NOVOLOG] 3 ML PEN SC SCH ×7 (08:21→21:00)
[2016-10-26] MEDS: ACETAMINOPHEN 325 MG TAB PO PRN (09:16)
--- NOTE | 2016-10-26 11:31 | PN ---
Date/Time of Note Date/Time of Note DATE: 10/26/16 TIME: 11:21 Assessment/Plan VTE Prophylaxis VTE Prophylaxis Intervention: other (eliquis) Lines/Catheters Urinary Cath still in place: No Assessment/Plan Chief Complaint/Hosp Course This is a 66-year-old gentleman who is known to our service from prior hospitalization with a past medical history of ischemic cardiomyopathy, ejection fraction 25%, coronary artery disease, hypertension, dyslipidemia, COPD , CHF who resides at [facility], sick sinus syndrome, status post pacemaker placement, ischemic cardiomyopathy, atrial fibrillation who was found to have increased shortness of breath at [facility] and was transferred to [facility] Emergency Room via EMS, where he was found to have oxygen saturation of 69% in room air. His ABG showed pH of 7.269, pCO2 94.4, pCO2 57.5, bicarbonate 42.3, oxygen saturation 85.1%. He was placed on BiPAP, which he was not able to tolerate and continued to become more hypoxic. Therefore, he was intubated in the course of the emergency room. Pulmonology was consulted. The patient was also treated with Solu-Medrol, cefepime, breathing treatment, and at this time he has been placed on propofol secondary to intubation. Patient was treated with antibiotics, nebulizer and steroid for pneumonia and COPD exacerbation, symptoms improved. He got extubated. Respiratory culture positive for ESBL E. Coli, and Lauren albicans, that he is on invanz and diflucan. Patient is clinically stable. No more antibiotics is needed per ID. Patient had atrial fibrillation with RVR. Toprol XL was increased to 50 mg daily. He is with sinus rhythm now. He had CAD, troponin was slightly increased to 0.167. It is considered tachycardia related. He had ICD shock like feeling that resolved after ICD was adjusted. Problems: Assessment/Plan 1. COPD exacerbation, stable, neb, decrease steroid 2. facility acquired pneumonia, with ESBL E. Coli, and Lauren albicans, treated 3. Atrial fibrillation with RVR, sinus now, follow up with cardiology 4. Mildly elevated troponin, likely tachycardia related, follow up with cardiology 5. Congestive heart failure, systolic, chronic, stable 6. Ischemic cardiomyopathy 7. CAD 8. s/p ICD, stable 9. Essential hypertension, stable 10. Dyslipidemia. Continue statin. 11. Hx of Foot Fx- stable 12. Social disposition, awaiting for placement 13. DVT prophylaxis: eliquis Exam/Review of Systems Vital Signs Vitals Vital Signs Date Time Temp Pulse Resp B/P Pulse Ox O2 Delivery O2 Flow Rate FiO2 10/26/16 09:17 Nasal Cannula 2.0 10/26/16 07:14 97.6 62 16 140/78 100 Intake and Output 10/25/16 10/25/16 10/26/16 15:00 23:00 07:00 Intake Total 2320 ml 360 ml Output Total 1000 ml Balance 1320 ml 360 ml Exam Constitutional: alert, oriented, well developed Psych: nl mood/affect, no complaints Head: atraumatic, normocephalic Eyes: EOMI, nl conjunctiva, nl lids ENMT: nl external ears & nose, nl lips & teeth, nl nasal mucosa & septum Neck: non-tender, supple Respiratory: clear to auscultation Cardiovascular: irregular rhythm, nl pulses Gastrointestinal: nl liver, spleen, non-tender, soft, No ascites, No bowel sounds, No distended, No firm, No hepatomegaly, No mass , No rebound or guarding, No splenomegaly, No surgical scars, No tender Musculoskeletal: nl extremities to inspection Extremities: other (right foot boots) Neurological: INFORMATION SECURITY ANALYST II-XII intact, nl mental status, nl speech, nl strength Skin: nl turgor, rash or lesions Lymph: nl lymph nodes Results Results 24 hrs Laboratory Tests Test 10/25/16 12:11 10/25/16 17:06 10/25/16 20:58 10/26/16 02:20 Bedside Glucose 144 145 254 H 121 Test 10/26/16 07:31 10/26/16 11:10 Bedside Glucose 148 126 Medications Medications Current Medications IV Flush (NS 10 ml) 10 ml PRN PRN IV IV PROTOCOL; Start 09/28/16 at 14:00 Ondansetron HCl (Zofran Inj) 4 mg Q6H PRN IV NAUSEA AND/OR VOMITING; Start at 15:00 Nitroglycerin (Nitroglycerin (Sl Tab) 0.4 Mg) 1 tab Q5M PRN SL CHEST PAIN; Start 09/28/16 at 15:00 Acetaminophen (Tylenol Liquid) 650 mg Q6H PRN PO PAIN LEVEL 1-3 OR FEVER; Start 09/28/16 at 15:00 Acetaminophen (Tylenol Tab) 650 mg Q6H PRN PO PAIN LEVEL 1-3 OR FEVER Last administered on 10/26/16 09:16; Admin Dose 650 MG; Start 09/28/16 at 15:00 Morphine Sulfate (morphine) 2 mg Q4H PRN IV PAIN LEVEL 7-10 Last administered on 09/29/16 02:30; Admin Dose 2 MG; Start 09/28/16 at 15:00 Lorazepam (Ativan) 1 mg Q2H PRN IV ANXIETY; Start 09/28/16 at 15:00 Docusate Sodium (Colace) 100 mg Q12H PRN PO CONSTIPATION; Start 09/28/16 at 15: 00 Famotidine (Pepcid) 20 mg Q12 PO Last administered on 10/26/16 08:17; Admin Dose 20 MG; Start 09/28/16 at 21:00 Aspirin (Aspirin) 81 mg DAILY PO Last administered on 10/26/16 08:17; Admin Dose 81 MG; Start 09/29/16 at 09:00 Atorvastatin Calcium (Lipitor) 10 mg QHS PO Last administered on 10/25/16 20: 48; Admin Dose 10 MG; Start 09/28/16 at 21:00 Tiotropium [place] (Spiriva) 1 inh DAILY INH ; Start 09/28/16 at 16:00; Status Future Hold Mupirocin (Bactroban) 1 applic BID TOP Last administered on 10/26/16 08:18; Admin Dose 1 APPLIC; Start 09/30/16 at 09:00 Diagnostic Test (Pha) (Accucheck) 1 ea 02 XX Last administered on 10/20/16 01: 36; Admin Dose 1 EA; Start 10/05/16 at 02:00 Miscellaneous Information 1 ea NOTE XX ; Start 10/04/16 at 09:00 Glucose (Glutose) 15 gm Q15M PRN PO DECREASED GLUCOSE; Start 10/04/16 at 09:00 Glucose (Glutose) 22.5 gm Q15M PRN PO DECREASED GLUCOSE; Start 10/04/16 at 09: 00 Dextrose (D50w Syringe) 25 ml Q15M PRN IV DECREASED GLUCOSE; Start 10/04/16 at 09:00 Dextrose (D50w Syringe) 50 ml Q15M PRN IV DECREASED GLUCOSE; Start 10/04/16 at 09:00 Glucagon (Glucagen) 1 mg Q15M PRN IM DECREASED GLUCOSE; Start 10/04/16 at 09:00 Glucose (Glutose) 15 gm Q15M PRN BUCCAL DECREASED GLUCOSE; Start 10/04/16 at 09 :00 Metoprolol Tartrate (Lopressor) 5 mg Q4 PRN IV HR>110 Hold SBP<100; Start 10/05 at 19:30 Insulin Glargine (Lantus) 15 unit HS SC Last administered on 10/25/16 21:01; Admin Dose 15 UNIT; Start 10/10/16 at 21:00 Montelukast Sodium (Singulair) 10 mg HS PO Last administered on 10/25/16 20:55 ; Admin Dose 10 MG; Start 10/10/16 at 21:00 Theophylline (Benji-24) 300 mg QHS PO Last administered on 10/25/16 20:47; Admin Dose 300 MG; Start 10/10/16 at 21:00 Apixaban (Eliquis) 5 mg BID PO Last administered on 10/26/16 08:17; Admin Dose 5 MG; Start 10/10/16 at 21:00 Digoxin (Digoxin) 0.125 mg DAILY@13 PO Last administered on 10/25/16 12:59; Admin Dose 0.125 MG; Start 10/12/16 at 13:00 Lisinopril (Zestril) 20 mg DAILY PO Last administered on 10/26/16 08:17; Admin Dose 20 MG; Start 10/12/16 at 09:00 Prednisone (Prednisone) 15 mg DAILY PO Last administered on 10/26/16 08:18; Admin Dose 15 MG; Start 10/12/16 at 09:00 Furosemide (Lasix) 40 mg AM PO Last administered on 10/26/16 08:17; Admin Dose 40 MG; Start 10/25/16 at 09:00 Metoprolol Succinate (Toprol Xl) 50 mg HS PO Last administered on 10/25/16 20: 52; Admin Dose 50 MG; Start 10/24/16 at 21:00 Metoprolol Succinate (Toprol Xl) 50 mg DAILY PO Last administered on 10/26/16 08:19; Admin Dose 50 MG; Start 10/25/16 at 09:00 Furosemide (Lasix) 40 mg HS PO Last administered on 10/25/16 20:51; Admin Dose 40 MG; Start 10/24/16 at 17:00 Amiodarone HCl (Cordarone) 200 mg BID PO Last administered on 10/26/16 08:18; Admin Dose 200 MG; Start 10/24/16 at 21:00 FUNMI MEZA MD Oct 26, 2016 11:30
[2016-10-26] MEDS: DIGOXIN 0.125 MG TAB PO SCH (12:57)
--- NOTE | 2016-10-26 13:26 | CONS ---
Date/Time of Note Date/Time of Note DATE: 10/26/16 TIME: 13:23 Assessment/Plan Assessment/Plan Chief Complaint/Hosp Course IMPRESSION: 1. Atrial fibrillation with rapid ventricular response.-improved HR and now back in rate controlled AF/AFL by ECG 10/22 2. Congestive heart failure, systolic, acute on chronic. 3. History of cardiomyopathy with decreased left ventricular ejection fraction 20% to 25% per chart biopsy. 4. Shortness of breath. 5. Status post hypercapnic respiratory failure, status post extubation. 6. Chronic obstructive pulmonary disease. 7. Hypertension. 8. Dyslipidemia. 9. History of automatic implantable cardioverter-defibrillator with possible discharge.-s/p interrogation with ICD shock for uncontrolled rapid AF. 10. Pneumonia. 11.Positive troponin-minimal with no sig uptrend Recc -Tele -Continue asa/Eliquis -ACEI/BB as tolerated -Continue digoxin -Continue statin -Increase amio back to bid in attempt to return patient to SR -Follow volume status with ongoing lasix diuresis as patient will comply and make sure evening dose given [id number] as scheduled so that patient does not have frequent urination throughout the night -awaiting placement Problems: Consultation Date/Type/Reason Admit Date/Time Sep 28, 2016 at 14:41 Initial Consult Date 09/28/16 Type of Consultation: cardiology Reason for Consultation CHF/ICD discharge Referring Provider: DEVON MUHAMMAD MD Exam/Review of Systems Vital Signs Vitals Vital Signs Date Time Temp Pulse Resp B/P Pulse Ox O2 Delivery O2 Flow Rate FiO2 10/26/16 09:17 Nasal Cannula 2.0 10/26/16 07:14 97.6 62 16 140/78 100 Intake and Output 10/25/16 10/25/16 10/26/16 14:59 22:59 06:59 Intake Total 2320 ml 360 ml Output Total 1000 ml Balance 1320 ml 360 ml Exam Review of Systems: CONSTITUTIONAL: No fevers, chills. PULMONARY: No sob CARDIOVASCULAR: No chest pain/palpitations GASTROINTESTINAL: No nausea/vomiting. GENITOURINARY: No hematuria/dysuria. MUSCULOSKELETAL: No myagias/arthalgias. PSYCHIATRIC: The patient denies depression. NEUROLOGIC: No weakness Constitutional: alert Psych: no complaints Head: normocephalic ENMT: mucosa pink and moist Neck: jvd (9 cm water), supple Respiratory: diminished breath sounds (at bases/B) Cardiovascular: regular rate and rhythm Gastrointestinal: soft Musculoskeletal: muscle tone (normal) Extremities: edema (none) Neurological: other (NO focal deficits) Results Results 24 hrs Laboratory Tests Test 10/25/16 17:06 10/25/16 20:58 10/26/16 02:20 10/26/16 07:31 Bedside Glucose 145 254 H 121 148 Test 10/26/16 11:10 Bedside Glucose 126 Medications Medications Current Medications IV Flush (NS 10 ml) 10 ml PRN PRN IV IV PROTOCOL; Start 09/28/16 at 14:00 Ondansetron HCl (Zofran Inj) 4 mg Q6H PRN IV NAUSEA AND/OR VOMITING; Start at 15:00 Nitroglycerin (Nitroglycerin (Sl Tab) 0.4 Mg) 1 tab Q5M PRN SL CHEST PAIN; Start 09/28/16 at 15:00 Acetaminophen (Tylenol Liquid) 650 mg Q6H PRN PO PAIN LEVEL 1-3 OR FEVER; Start 09/28/16 at 15:00 Acetaminophen (Tylenol Tab) 650 mg Q6H PRN PO PAIN LEVEL 1-3 OR FEVER Last administered on 10/26/16 09:16; Admin Dose 650 MG; Start 09/28/16 at 15:00 Morphine Sulfate (morphine) 2 mg Q4H PRN IV PAIN LEVEL 7-10 Last administered on 09/29/16 02:30; Admin Dose 2 MG; Start 09/28/16 at 15:00 Lorazepam (Ativan) 1 mg Q2H PRN IV ANXIETY; Start 09/28/16 at 15:00 Docusate Sodium (Colace) 100 mg Q12H PRN PO CONSTIPATION; Start 09/28/16 at 15: 00 Famotidine (Pepcid) 20 mg Q12 PO Last administered on 10/26/16 08:17; Admin Dose 20 MG; Start 09/28/16 at 21:00 Aspirin (Aspirin) 81 mg DAILY PO Last administered on 10/26/16 08:17; Admin Dose 81 MG; Start 09/29/16 at 09:00 Atorvastatin Calcium (Lipitor) 10 mg QHS PO Last administered on 10/25/16 20: 48; Admin Dose 10 MG; Start 09/28/16 at 21:00 Tiotropium [place] (Spiriva) 1 inh DAILY INH ; Start 09/28/16 at 16:00; Status Future Hold Mupirocin (Bactroban) 1 applic BID TOP Last administered on 10/26/16 08:18; Admin Dose 1 APPLIC; Start 09/30/16 at 09:00 Diagnostic Test (Pha) (Accucheck) 1 ea 02 XX Last administered on 10/20/16 01: 36; Admin Dose 1 EA; Start 10/05/16 at 02:00 Miscellaneous Information 1 ea NOTE XX ; Start 10/04/16 at 09:00 Glucose (Glutose) 15 gm Q15M PRN PO DECREASED GLUCOSE; Start 10/04/16 at 09:00 Glucose (Glutose) 22.5 gm Q15M PRN PO DECREASED GLUCOSE; Start 10/04/16 at 09: 00 Dextrose (D50w Syringe) 25 ml Q15M PRN IV DECREASED GLUCOSE; Start 10/04/16 at 09:00 Dextrose (D50w Syringe) 50 ml Q15M PRN IV DECREASED GLUCOSE; Start 10/04/16 at 09:00 Glucagon (Glucagen) 1 mg Q15M PRN IM DECREASED GLUCOSE; Start 10/04/16 at 09:00 Glucose (Glutose) 15 gm Q15M PRN BUCCAL DECREASED GLUCOSE; Start 10/04/16 at 09 :00 Metoprolol Tartrate (Lopressor) 5 mg Q4 PRN IV HR>110 Hold SBP<100; Start 10/05 at 19:30 Insulin Glargine (Lantus) 15 unit HS SC Last administered on 10/25/16 21:01; Admin Dose 15 UNIT; Start 10/10/16 at 21:00 Montelukast Sodium (Singulair) 10 mg HS PO Last administered on 10/25/16 20:55 ; Admin Dose 10 MG; Start 10/10/16 at 21:00 Theophylline (Benji-24) 300 mg QHS PO Last administered on 10/25/16 20:47; Admin Dose 300 MG; Start 10/10/16 at 21:00 Apixaban (Eliquis) 5 mg BID PO Last administered on 10/26/16 08:17; Admin Dose 5 MG; Start 10/10/16 at 21:00 Digoxin (Digoxin) 0.125 mg DAILY@13 PO Last administered on 10/26/16 12:57; Admin Dose 0.125 MG; Start 10/12/16 at 13:00 Lisinopril (Zestril) 20 mg DAILY PO Last administered on 10/26/16 08:17; Admin Dose 20 MG; Start 10/12/16 at 09:00 Furosemide (Lasix) 40 mg AM PO Last administered on 10/26/16 08:17; Admin Dose 40 MG; Start 10/25/16 at 09:00 Metoprolol Succinate (Toprol Xl) 50 mg HS PO Last administered on 10/25/16 20: 52; Admin Dose 50 MG; Start 10/24/16 at 21:00 Metoprolol Succinate (Toprol Xl) 50 mg DAILY PO Last administered on 10/26/16 08:19; Admin Dose 50 MG; Start 10/25/16 at 09:00 Furosemide (Lasix) 40 mg HS PO Last administered on 10/25/16 20:51; Admin Dose 40 MG; Start 10/24/16 at 17:00 Amiodarone HCl (Cordarone) 200 mg BID PO Last administered on 10/26/16 08:18; Admin Dose 200 MG; Start 10/24/16 at 21:00 Prednisone (Prednisone) 10 mg DAILY PO ; Start 10/27/16 at 09:00 СВЕТЛАНА PADRON Oct 26, 2016 13:26
[2016-10-26] MEDS: predniSONE 2.5 MG TAB PO SCH (17:17)
[2016-10-26 19:18] VITALS: BP 110/59; RESP 16
[2016-10-26] MEDS: THEOPHYLLINE (SR) 300 MG CAP PO SCH (20:46)
[2016-10-26] MEDS: ATORVASTATIN 10 MG TAB PO SCH (20:46)
[2016-10-26] MEDS: MONTELUKAST 10 MG TAB PO SCH (20:46)
[2016-10-26] MEDS: INSULIN GLARGINE [LANtus] 3 ML PEN SC SCH (20:56)
[2016-10-27] MEDS: ACCU-CHEK XX SCH (02:00)
[2016-10-27] MEDS: ALBUTEROL/IPRATROPIUM (NEB) 3 ML AMP HHN SCH ×4 (02:00→20:41)
[2016-10-27] MEDS: METOPROLOL (XL) 50 MG TAB PO SCH ×3 (05:50→20:30)
[2016-10-27 07:28] VITALS: BP 114/64; RESP 18
[2016-10-27] MEDS: INSULIN ASPART [NOVOLOG] 3 ML PEN SC SCH ×7 (08:00→20:48)
[2016-10-27] MEDS: AMIODARONE 200 MG TAB PO SCH ×2 (09:08→20:29)
[2016-10-27] MEDS: APIXABAN 5 MG TABLET PO SCH ×2 (09:08→20:29)
[2016-10-27] MEDS: FAMOTIDINE 20 MG TAB PO SCH ×2 (09:08→20:29)
[2016-10-27] MEDS: FUROSEMIDE 40 MG TAB PO SCH ×2 (09:09→16:29)
[2016-10-27] MEDS: ASPIRIN 81 MG TAB PO SCH (09:09)
[2016-10-27] MEDS: LISINOPRIL 5 MG TAB PO SCH (09:10)
[2016-10-27] MEDS: MUPIROCIN 2% 22 GM OINT TOP SCH ×2 (09:19→20:28)
[2016-10-27] MEDS: predniSONE 10 MG TAB PO SCH (11:51)
[2016-10-27] MEDS: DIGOXIN 0.125 MG TAB PO SCH (11:52)
--- NOTE | 2016-10-27 15:53 | PN ---
Date/Time of Note Date/Time of Note DATE: 10/27/16 TIME: 15:51 Assessment/Plan VTE Prophylaxis VTE Prophylaxis Intervention: other (eliquis) Lines/Catheters Urinary Cath still in place: No Assessment/Plan Chief Complaint/Hosp Course This is a 66-year-old gentleman who is known to our service from prior hospitalization with a past medical history of ischemic cardiomyopathy, ejection fraction 25%, coronary artery disease, hypertension, dyslipidemia, COPD , CHF who resides at [facility], sick sinus syndrome, status post pacemaker placement, ischemic cardiomyopathy, atrial fibrillation who was found to have increased shortness of breath at [facility] and was transferred to [facility] Emergency Room via EMS, where he was found to have oxygen saturation of 69% in room air. His ABG showed pH of 7.269, pCO2 94.4, pCO2 57.5, bicarbonate 42.3, oxygen saturation 85.1%. He was placed on BiPAP, which he was not able to tolerate and continued to become more hypoxic. Therefore, he was intubated in the course of the emergency room. Pulmonology was consulted. The patient was also treated with Solu-Medrol, cefepime, breathing treatment, and at this time he has been placed on propofol secondary to intubation. Patient was treated with antibiotics, nebulizer and steroid for pneumonia and COPD exacerbation, symptoms improved. He got extubated. Respiratory culture positive for ESBL E. Coli, and Lauren albicans, that he is on invanz and diflucan. Patient is clinically stable. No more antibiotics is needed per ID. Patient had atrial fibrillation with RVR. Toprol XL was increased to 50 mg daily. He is with sinus rhythm now. He had CAD, troponin was slightly increased to 0.167. It is considered tachycardia related. He had ICD shock like feeling that resolved after ICD was adjusted. Problems: Assessment/Plan 1. COPD exacerbation, stable, neb, decrease steroid 2. facility acquired pneumonia, with ESBL E. Coli, and Lauren albicans, treated 3. Atrial fibrillation with RVR, sinus now, follow up with cardiology 4. Mildly elevated troponin, likely tachycardia related, follow up with cardiology 5. Congestive heart failure, systolic, chronic, stable 6. Ischemic cardiomyopathy 7. CAD 8. s/p ICD, stable 9. Essential hypertension, stable 10. Dyslipidemia. Continue statin. 11. Hx of Foot Fx- stable 12. Social disposition, awaiting for placement 13. DVT prophylaxis: eliquis Subjective 24 Hr Interval Summary Free Text/Dictation no event. seen and examined Exam/Review of Systems Vital Signs Vitals Vital Signs Date Time Temp Pulse Resp B/P Pulse Ox O2 Delivery O2 Flow Rate FiO2 10/27/16 09:22 Nasal Cannula 2.0 10/27/16 08:35 66 22 90 10/27/16 07:28 98.3 114/64 Intake and Output 10/26/16 10/26/16 10/27/16 15:00 23:00 07:00 Intake Total 1100 ml 920 ml Balance 1100 ml 920 ml Exam Constitutional: alert, oriented, well developed Psych: nl mood/affect, no complaints Head: atraumatic, normocephalic Eyes: EOMI, PERRL, nl conjunctiva, nl lids ENMT: nl external ears & nose, nl lips & teeth, nl nasal mucosa & septum Neck: non-tender, supple Respiratory: clear to auscultation, normal air movement, No congested cough, No crackles/rales, No diminished breath sounds, No intercostal retraction, No labored breathing, No other, No respirations, No tactile fremitus, No wheezing Cardiovascular: nl pulses, No S3, No S4, No bruits, No diastolic murmur, No edema, No gallop, No jugular venous distention (JVD), No murmurs/extra sounds, No other, No rub, No systolic murmur Gastrointestinal: nl liver, spleen, non-tender, soft, No ascites, No bowel sounds, No distended, No firm, No hepatomegaly, No mass , No other, No rebound or guarding, No splenomegaly, No surgical scars, No tender Musculoskeletal: nl extremities to inspection Extremities: normal pulses, No calf tenderness, No clubbing, No cyanosis, No edema, No palpable cord, No pitting pedal edema, No tenderness Neurological: INK GRINDER II-XII intact, nl mental status, nl speech, nl strength Skin: nl turgor, rash or lesions Lymph: nl lymph nodes Results Results 24 hrs Laboratory Tests Test 10/26/16 17:14 10/26/16 20:51 10/27/16 07:31 Bedside Glucose 195 148 130 Medications Medications Current Medications IV Flush (NS 10 ml) 10 ml PRN PRN IV IV PROTOCOL; Start 09/28/16 at 14:00 Ondansetron HCl (Zofran Inj) 4 mg Q6H PRN IV NAUSEA AND/OR VOMITING; Start at 15:00 Nitroglycerin (Nitroglycerin (Sl Tab) 0.4 Mg) 1 tab Q5M PRN SL CHEST PAIN; Start 09/28/16 at 15:00 Acetaminophen (Tylenol Liquid) 650 mg Q6H PRN PO PAIN LEVEL 1-3 OR FEVER; Start 09/28/16 at 15:00 Acetaminophen (Tylenol Tab) 650 mg Q6H PRN PO PAIN LEVEL 1-3 OR FEVER Last administered on 10/26/16 09:16; Admin Dose 650 MG; Start 09/28/16 at 15:00 Morphine Sulfate (morphine) 2 mg Q4H PRN IV PAIN LEVEL 7-10 Last administered on 09/29/16 02:30; Admin Dose 2 MG; Start 09/28/16 at 15:00 Lorazepam (Ativan) 1 mg Q2H PRN IV ANXIETY; Start 09/28/16 at 15:00 Docusate Sodium (Colace) 100 mg Q12H PRN PO CONSTIPATION; Start 09/28/16 at 15: 00 Famotidine (Pepcid) 20 mg Q12 PO Last administered on 10/27/16 09:08; Admin Dose 20 MG; Start 09/28/16 at 21:00 Aspirin (Aspirin) 81 mg DAILY PO Last administered on 10/27/16 09:09; Admin Dose 81 MG; Start 09/29/16 at 09:00 Atorvastatin Calcium (Lipitor) 10 mg QHS PO Last administered on 10/26/16 20: 46; Admin Dose 10 MG; Start 09/28/16 at 21:00 Tiotropium [place] (Spiriva) 1 inh DAILY INH ; Start 09/28/16 at 16:00; Status Future Hold Mupirocin (Bactroban) 1 applic BID TOP Last administered on 10/27/16 09:19; Admin Dose 1 APPLIC; Start 09/30/16 at 09:00 Diagnostic Test (Pha) (Accucheck) 1 ea 02 XX Last administered on 10/20/16 01: 36; Admin Dose 1 EA; Start 10/05/16 at 02:00 Miscellaneous Information 1 ea NOTE XX ; Start 10/04/16 at 09:00 Glucose (Glutose) 15 gm Q15M PRN PO DECREASED GLUCOSE; Start 10/04/16 at 09:00 Glucose (Glutose) 22.5 gm Q15M PRN PO DECREASED GLUCOSE; Start 10/04/16 at 09: 00 Dextrose (D50w Syringe) 25 ml Q15M PRN IV DECREASED GLUCOSE; Start 10/04/16 at 09:00 Dextrose (D50w Syringe) 50 ml Q15M PRN IV DECREASED GLUCOSE; Start 10/04/16 at 09:00 Glucagon (Glucagen) 1 mg Q15M PRN IM DECREASED GLUCOSE; Start 10/04/16 at 09:00 Glucose (Glutose) 15 gm Q15M PRN BUCCAL DECREASED GLUCOSE; Start 10/04/16 at 09 :00 Metoprolol Tartrate (Lopressor) 5 mg Q4 PRN IV HR>110 Hold SBP<100; Start 10/05 at 19:30 Insulin Glargine (Lantus) 15 unit HS SC Last administered on 10/26/16 20:56; Admin Dose 15 UNIT; Start 10/10/16 at 21:00 Montelukast Sodium (Singulair) 10 mg HS PO Last administered on 10/26/16 20:46 ; Admin Dose 10 MG; Start 10/10/16 at 21:00 Theophylline (Benji-24) 300 mg QHS PO Last administered on 10/26/16 20:46; Admin Dose 300 MG; Start 10/10/16 at 21:00 Apixaban (Eliquis) 5 mg BID PO Last administered on 10/27/16 09:08; Admin Dose 5 MG; Start 10/10/16 at 21:00 Digoxin (Digoxin) 0.125 mg DAILY@13 PO Last administered on 10/27/16 11:52; Admin Dose 0.125 MG; Start 10/12/16 at 13:00 Lisinopril (Zestril) 20 mg DAILY PO Last administered on 10/27/16 09:10; Admin Dose 20 MG; Start 10/12/16 at 09:00 Furosemide (Lasix) 40 mg AM PO Last administered on 10/27/16 09:09; Admin Dose 40 MG; Start 10/25/16 at 09:00 Metoprolol Succinate (Toprol Xl) 50 mg HS PO Last administered on 10/27/16 05: 50; Admin Dose 50 MG; Start 10/24/16 at 21:00 Metoprolol Succinate (Toprol Xl) 50 mg DAILY PO Last administered on 10/27/16 11:53; Admin Dose 50 MG; Start 10/25/16 at 09:00 Amiodarone HCl (Cordarone) 200 mg BID PO Last administered on 10/27/16 09:08; Admin Dose 200 MG; Start 10/24/16 at 21:00 Prednisone (Prednisone) 10 mg DAILY PO Last administered on 10/27/16 11:51; Admin Dose 10 MG; Start 10/27/16 at 09:00 Furosemide (Lasix) 40 mg 17 PO Last administered on 10/26/16 17:17; Admin Dose 40 MG; Start 10/26/16 at 17:00 FUNMI MEZA MD Oct 27, 2016 15:53
[2016-10-27] MEDS: predniSONE 2.5 MG TAB PO SCH (16:28)
--- NOTE | 2016-10-27 17:25 | CONS ---
Date/Time of Note Date/Time of Note DATE: 10/27/16 TIME: 17:23 Assessment/Plan Assessment/Plan Chief Complaint/Hosp Course IMPRESSION: 1. Atrial fibrillation with rapid ventricular response.-improved HR and now back in rate controlled AF/AFL by ECG 10/22 2. Congestive heart failure, systolic, acute on chronic. 3. History of cardiomyopathy with decreased left ventricular ejection fraction 20% to 25% per chart biopsy. 4. Shortness of breath. 5. Status post hypercapnic respiratory failure, status post extubation. 6. Chronic obstructive pulmonary disease. 7. Hypertension. 8. Dyslipidemia. 9. History of automatic implantable cardioverter-defibrillator with possible discharge.-s/p interrogation with ICD shock for uncontrolled rapid AF. 10. Pneumonia. 11.Positive troponin-minimal with no sig uptrend Recc -Tele -Continue asa/Eliquis -ACEI/BB as tolerated -Continue digoxin -Continue statin -Continue [place] BID -Follow volume status with ongoing lasix diuresis as patient will comply and make sure evening dose given [id number] as scheduled so that patient does not have frequent urination throughout the night -awaiting placement Problems: Consultation Date/Type/Reason Admit Date/Time Sep 28, 2016 at 14:41 Initial Consult Date 09/28/16 Type of Consultation: cardiology Reason for Consultation CHF/cmy/ICD discharge Referring Provider: DEVON MUHAMMAD MD Exam/Review of Systems Vital Signs Vitals Vital Signs Date Time Temp Pulse Resp B/P Pulse Ox O2 Delivery O2 Flow Rate FiO2 10/27/16 09:22 Nasal Cannula 2.0 10/27/16 08:35 66 22 90 10/27/16 07:28 98.3 114/64 Intake and Output 10/26/16 10/26/16 10/27/16 15:00 23:00 07:00 Intake Total 1100 ml 920 ml Balance 1100 ml 920 ml Exam Review of Systems: CONSTITUTIONAL: No fevers, chills. PULMONARY: No sob CARDIOVASCULAR: No chest pain/palpitations GASTROINTESTINAL: No nausea/vomiting. GENITOURINARY: No hematuria/dysuria. MUSCULOSKELETAL: No myagias/arthalgias. PSYCHIATRIC: The patient denies depression. NEUROLOGIC: No weakness Constitutional: alert Psych: no complaints Head: normocephalic ENMT: mucosa pink and moist Neck: jvd (9 cm water), supple Respiratory: diminished breath sounds (at bases/B) Gastrointestinal: non-tender Musculoskeletal: muscle tone (normal) Extremities: edema (trace/B), normal pulses Neurological: other (No focal deficits) Results Results 24 hrs Laboratory Tests Test 10/26/16 20:51 10/27/16 07:31 10/27/16 16:24 Bedside Glucose 148 130 152 Medications Medications Current Medications IV Flush (NS 10 ml) 10 ml PRN PRN IV IV PROTOCOL; Start 09/28/16 at 14:00 Ondansetron HCl (Zofran Inj) 4 mg Q6H PRN IV NAUSEA AND/OR VOMITING; Start at 15:00 Nitroglycerin (Nitroglycerin (Sl Tab) 0.4 Mg) 1 tab Q5M PRN SL CHEST PAIN; Start 09/28/16 at 15:00 Acetaminophen (Tylenol Liquid) 650 mg Q6H PRN PO PAIN LEVEL 1-3 OR FEVER; Start 09/28/16 at 15:00 Acetaminophen (Tylenol Tab) 650 mg Q6H PRN PO PAIN LEVEL 1-3 OR FEVER Last administered on 10/26/16 09:16; Admin Dose 650 MG; Start 09/28/16 at 15:00 Morphine Sulfate (morphine) 2 mg Q4H PRN IV PAIN LEVEL 7-10 Last administered on 09/29/16 02:30; Admin Dose 2 MG; Start 09/28/16 at 15:00 Lorazepam (Ativan) 1 mg Q2H PRN IV ANXIETY; Start 09/28/16 at 15:00 Docusate Sodium (Colace) 100 mg Q12H PRN PO CONSTIPATION; Start 09/28/16 at 15: 00 Famotidine (Pepcid) 20 mg Q12 PO Last administered on 10/27/16 09:08; Admin Dose 20 MG; Start 09/28/16 at 21:00 Aspirin (Aspirin) 81 mg DAILY PO Last administered on 10/27/16 09:09; Admin Dose 81 MG; Start 09/29/16 at 09:00 Atorvastatin Calcium (Lipitor) 10 mg QHS PO Last administered on 10/26/16 20: 46; Admin Dose 10 MG; Start 09/28/16 at 21:00 Tiotropium [place] (Spiriva) 1 inh DAILY INH ; Start 09/28/16 at 16:00; Status Future Hold Mupirocin (Bactroban) 1 applic BID TOP Last administered on 10/27/16 09:19; Admin Dose 1 APPLIC; Start 09/30/16 at 09:00 Diagnostic Test (Pha) (Accucheck) 1 ea 02 XX Last administered on 10/20/16 01: 36; Admin Dose 1 EA; Start 10/05/16 at 02:00 Miscellaneous Information 1 ea NOTE XX ; Start 10/04/16 at 09:00 Glucose (Glutose) 15 gm Q15M PRN PO DECREASED GLUCOSE; Start 10/04/16 at 09:00 Glucose (Glutose) 22.5 gm Q15M PRN PO DECREASED GLUCOSE; Start 10/04/16 at 09: 00 Dextrose (D50w Syringe) 25 ml Q15M PRN IV DECREASED GLUCOSE; Start 10/04/16 at 09:00 Dextrose (D50w Syringe) 50 ml Q15M PRN IV DECREASED GLUCOSE; Start 10/04/16 at 09:00 Glucagon (Glucagen) 1 mg Q15M PRN IM DECREASED GLUCOSE; Start 10/04/16 at 09:00 Glucose (Glutose) 15 gm Q15M PRN BUCCAL DECREASED GLUCOSE; Start 10/04/16 at 09 :00 Metoprolol Tartrate (Lopressor) 5 mg Q4 PRN IV HR>110 Hold SBP<100; Start 10/05 at 19:30 Insulin Glargine (Lantus) 15 unit HS SC Last administered on 10/26/16 20:56; Admin Dose 15 UNIT; Start 10/10/16 at 21:00 Montelukast Sodium (Singulair) 10 mg HS PO Last administered on 10/26/16 20:46 ; Admin Dose 10 MG; Start 10/10/16 at 21:00 Theophylline (Benji-24) 300 mg QHS PO Last administered on 10/26/16 20:46; Admin Dose 300 MG; Start 10/10/16 at 21:00 Apixaban (Eliquis) 5 mg BID PO Last administered on 10/27/16 09:08; Admin Dose 5 MG; Start 10/10/16 at 21:00 Digoxin (Digoxin) 0.125 mg DAILY@13 PO Last administered on 10/27/16 11:52; Admin Dose 0.125 MG; Start 10/12/16 at 13:00 Lisinopril (Zestril) 20 mg DAILY PO Last administered on 10/27/16 09:10; Admin Dose 20 MG; Start 10/12/16 at 09:00 Furosemide (Lasix) 40 mg AM PO Last administered on 10/27/16 09:09; Admin Dose 40 MG; Start 10/25/16 at 09:00 Metoprolol Succinate (Toprol Xl) 50 mg HS PO Last administered on 10/27/16 05: 50; Admin Dose 50 MG; Start 10/24/16 at 21:00 Metoprolol Succinate (Toprol Xl) 50 mg DAILY PO Last administered on 10/27/16 11:53; Admin Dose 50 MG; Start 10/25/16 at 09:00 Amiodarone HCl (Cordarone) 200 mg BID PO Last administered on 10/27/16 09:08; Admin Dose 200 MG; Start 10/24/16 at 21:00 Prednisone (Prednisone) 10 mg DAILY PO Last administered on 10/27/16 11:51; Admin Dose 10 MG; Start 10/27/16 at 09:00 Furosemide (Lasix) 40 mg 17 PO Last administered on 10/27/16 16:29; Admin Dose 40 MG; Start 10/26/16 at 17:00 СВЕТЛАНА PADRON Oct 27, 2016 17:25
[2016-10-27 19:43] VITALS: BP 124/71; RESP 16
[2016-10-27] MEDS: THEOPHYLLINE (SR) 300 MG CAP PO SCH (20:29)
[2016-10-27] MEDS: MONTELUKAST 10 MG TAB PO SCH (20:29)
[2016-10-27] MEDS: ATORVASTATIN 10 MG TAB PO SCH (20:29)
[2016-10-27] MEDS: INSULIN GLARGINE [LANtus] 3 ML PEN SC SCH (20:39)
[2016-10-28] MEDS: ACCU-CHEK XX SCH ×2 (02:00→20:47)
[2016-10-28] MEDS: ALBUTEROL/IPRATROPIUM (NEB) 3 ML AMP HHN SCH ×4 (02:21→20:39)
[2016-10-28 05:34] LABS: POTASSIUM 4.2 mmol/L (3.5-5.1)
[2016-10-28 05:37] LABS: CREATININE 0.93 mg/dl (0.61-1.24)
[2016-10-28 05:38] LABS: CALCIUM 9.1 mg/dl (8.4-10.2)
[2016-10-28 08:05] VITALS: BP 136/77; RESP 24
[2016-10-28] MEDS: ASPIRIN 81 MG TAB PO SCH (08:55)
[2016-10-28] MEDS: INSULIN ASPART [NOVOLOG] 3 ML PEN SC SCH ×7 (08:55→20:30)
[2016-10-28] MEDS: APIXABAN 5 MG TABLET PO SCH ×2 (08:56→20:34)
[2016-10-28] MEDS: METOPROLOL (XL) 25 MG TAB PO SCH ×2 (08:56→20:35)
[2016-10-28] MEDS: FUROSEMIDE 40 MG TAB PO SCH ×2 (08:56→17:34)
[2016-10-28] MEDS: AMIODARONE 200 MG TAB PO SCH ×2 (08:57→20:32)
[2016-10-28] MEDS: FAMOTIDINE 20 MG TAB PO SCH ×2 (08:57→20:34)
[2016-10-28] MEDS: MUPIROCIN 2% 22 GM OINT TOP SCH ×2 (08:57→20:35)
[2016-10-28] MEDS: predniSONE 10 MG TAB PO SCH (08:57)
[2016-10-28] MEDS: LISINOPRIL 5 MG TAB PO SCH (08:57)
[2016-10-28] MEDS: ACETAMINOPHEN 325 MG TAB PO PRN (09:00)
[2016-10-28] MEDS: DIGOXIN 0.125 MG TAB PO SCH (13:53)
--- NOTE | 2016-10-28 13:59 | PN ---
Date/Time of Note Date/Time of Note DATE: 10/28/16 TIME: 13:54 Assessment/Plan VTE Prophylaxis VTE Prophylaxis Intervention: other (eliquis) Lines/Catheters Urinary Cath still in place: No Assessment/Plan Chief Complaint/Hosp Course This is a 66-year-old gentleman who is known to our service from prior hospitalization with a past medical history of ischemic cardiomyopathy, ejection fraction 25%, coronary artery disease, hypertension, dyslipidemia, COPD , CHF who resides at [facility], sick sinus syndrome, status post pacemaker placement, ischemic cardiomyopathy, atrial fibrillation who was found to have increased shortness of breath at [facility] and was transferred to [facility] Emergency Room via EMS, where he was found to have oxygen saturation of 69% in room air. His ABG showed pH of 7.269, pCO2 94.4, pCO2 57.5, bicarbonate 42.3, oxygen saturation 85.1%. He was placed on BiPAP, which he was not able to tolerate and continued to become more hypoxic. Therefore, he was intubated in the course of the emergency room. Pulmonology was consulted. The patient was also treated with Solu-Medrol, cefepime, breathing treatment, and at this time he has been placed on propofol secondary to intubation. Patient was treated with antibiotics, nebulizer and steroid for pneumonia and COPD exacerbation, symptoms improved. He got extubated. Respiratory culture positive for ESBL E. Coli, and Lauren albicans, that he is on invanz and diflucan. Patient is clinically stable. No more antibiotics is needed per ID. Patient had atrial fibrillation with RVR. Toprol XL was increased to 50 mg daily. He is with sinus rhythm now. He had CAD, troponin was slightly increased to 0.167. It is considered tachycardia related. He had ICD shock like feeling that resolved after ICD was adjusted. Problems: Assessment/Plan 1. COPD exacerbation, stable, neb, decrease steroid 2. facility acquired pneumonia, with ESBL E. Coli, and Lauren albicans, treated 3. Atrial fibrillation with RVR, sinus now, follow up with cardiology 4. Mildly elevated troponin, likely tachycardia related, follow up with cardiology 5. Congestive heart failure, systolic, chronic, stable 6. Ischemic cardiomyopathy 7. CAD 8. s/p ICD, stable 9. Essential hypertension, stable 10. Dyslipidemia. Continue statin. 11. Hx of Foot Fx- stable 12. DVT prophylaxis: eliquis 13. Social disposition, awaiting for placement Subjective 24 Hr Interval Summary Free Text/Dictation seen and examined, no event Exam/Review of Systems Vital Signs Vitals Vital Signs Date Time Temp Pulse Resp B/P Pulse Ox O2 Delivery O2 Flow Rate FiO2 10/28/16 09:00 Nasal Cannula 2.0 10/28/16 08:05 98.9 62 24 136/77 94 Intake and Output 10/27/16 10/27/16 10/28/16 15:00 23:00 07:00 Intake Total 940 ml 920 ml Balance 940 ml 920 ml Exam Constitutional: alert, oriented, well developed Psych: nl mood/affect, no complaints Head: atraumatic, normocephalic Eyes: EOMI, PERRL, nl conjunctiva, nl lids ENMT: nl external ears & nose, nl lips & teeth, nl nasal mucosa & septum Neck: non-tender, supple Respiratory: clear to auscultation, normal air movement, No congested cough, No crackles/rales, No diminished breath sounds, No intercostal retraction, No labored breathing, No other, No respirations, No tactile fremitus, No wheezing Cardiovascular: nl pulses, regular rate and rhythm, No S3, No S4, No bruits, No diastolic murmur, No edema, No gallop, No irregular rhythm, No jugular venous distention (JVD), No murmurs/extra sounds, No other, No rub, No systolic murmur Gastrointestinal: nl liver, spleen, non-tender, soft, No ascites, No bowel sounds, No distended, No firm, No hepatomegaly, No mass , No other, No rebound or guarding, No splenomegaly, No surgical scars, No tender Musculoskeletal: nl extremities to inspection Extremities: normal pulses, other, No calf tenderness, No clubbing, No cyanosis, No edema, No palpable cord, No pitting pedal edema, No tenderness Neurological: FIXTURE RELAMPER II-XII intact, nl mental status, nl speech, nl strength Skin: nl turgor, rash or lesions Lymph: nl lymph nodes Results Result Diagram: 10/28/16 0445 Results 24 hrs Laboratory Tests Test 10/27/16 16:24 10/27/16 20:33 10/28/16 04:45 10/28/16 07:55 Bedside Glucose 152 167 86 Anion Gap 12 Blood Urea Nitrogen 32 H Calcium Level 9.1 Carbon Dioxide Level 37 H Chloride Level 96 L Creatinine 0.93 Glucose Level 101 Potassium Level 4.2 Sodium Level 141 Test 10/28/16 11:53 Bedside Glucose 117 Medications Medications Current Medications IV Flush (NS 10 ml) 10 ml PRN PRN IV IV PROTOCOL; Start 09/28/16 at 14:00 Ondansetron HCl (Zofran Inj) 4 mg Q6H PRN IV NAUSEA AND/OR VOMITING; Start at 15:00 Nitroglycerin (Nitroglycerin (Sl Tab) 0.4 Mg) 1 tab Q5M PRN SL CHEST PAIN; Start 09/28/16 at 15:00 Acetaminophen (Tylenol Liquid) 650 mg Q6H PRN PO PAIN LEVEL 1-3 OR FEVER; Start 09/28/16 at 15:00 Acetaminophen (Tylenol Tab) 650 mg Q6H PRN PO PAIN LEVEL 1-3 OR FEVER Last administered on 10/28/16 09:00; Admin Dose 650 MG; Start 09/28/16 at 15:00 Morphine Sulfate (morphine) 2 mg Q4H PRN IV PAIN LEVEL 7-10 Last administered on 09/29/16 02:30; Admin Dose 2 MG; Start 09/28/16 at 15:00 Lorazepam (Ativan) 1 mg Q2H PRN IV ANXIETY; Start 09/28/16 at 15:00 Docusate Sodium (Colace) 100 mg Q12H PRN PO CONSTIPATION; Start 09/28/16 at 15: 00 Famotidine (Pepcid) 20 mg Q12 PO Last administered on 10/28/16 08:57; Admin Dose 20 MG; Start 09/28/16 at 21:00 Aspirin (Aspirin) 81 mg DAILY PO Last administered on 10/28/16 08:55; Admin Dose 81 MG; Start 09/29/16 at 09:00 Atorvastatin Calcium (Lipitor) 10 mg QHS PO Last administered on 10/27/16 20: 29; Admin Dose 10 MG; Start 09/28/16 at 21:00 Tiotropium [place] (Spiriva) 1 inh DAILY INH ; Start 09/28/16 at 16:00; Status Future Hold Mupirocin (Bactroban) 1 applic BID TOP Last administered on 2/22/17at 08:57; Admin Dose 1 APPLIC; Start 09/30/16 at 09:00 Diagnostic Test (Pha) (Accucheck) 1 ea 02 XX Last administered on 10/20/16 01: 36; Admin Dose 1 EA; Start 10/05/16 at 02:00 Miscellaneous Information 1 ea NOTE XX ; Start 10/04/16 at 09:00 Glucose (Glutose) 15 gm Q15M PRN PO DECREASED GLUCOSE; Start 10/04/16 at 09:00 Glucose (Glutose) 22.5 gm Q15M PRN PO DECREASED GLUCOSE; Start 10/04/16 at 09: 00 Dextrose (D50w Syringe) 25 ml Q15M PRN IV DECREASED GLUCOSE; Start 10/04/16 at 09:00 Dextrose (D50w Syringe) 50 ml Q15M PRN IV DECREASED GLUCOSE; Start 10/04/16 at 09:00 Glucagon (Glucagen) 1 mg Q15M PRN IM DECREASED GLUCOSE; Start 10/04/16 at 09:00 Glucose (Glutose) 15 gm Q15M PRN BUCCAL DECREASED GLUCOSE; Start 10/04/16 at 09 :00 Metoprolol Tartrate (Lopressor) 5 mg Q4 PRN IV HR>110 Hold SBP<100; Start 10/05 at 19:30 Insulin Glargine (Lantus) 15 unit HS SC Last administered on 10/27/16 20:39; Admin Dose 15 UNIT; Start 10/10/16 at 21:00 Montelukast Sodium (Singulair) 10 mg HS PO Last administered on 10/27/16 20:29 ; Admin Dose 10 MG; Start 10/10/16 at 21:00 Theophylline (Benji-24) 300 mg QHS PO Last administered on 10/27/16 20:29; Admin Dose 300 MG; Start 10/10/16 at 21:00 Apixaban (Eliquis) 5 mg BID PO Last administered on 10/28/16 08:56; Admin Dose 5 MG; Start 10/10/16 at 21:00 Digoxin (Digoxin) 0.125 mg DAILY@13 PO Last administered on 10/27/16 11:52; Admin Dose 0.125 MG; Start 10/12/16 at 13:00 Lisinopril (Zestril) 20 mg DAILY PO Last administered on 10/28/16 08:57; Admin Dose 20 MG; Start 10/12/16 at 09:00 Furosemide (Lasix) 40 mg AM PO Last administered on 10/28/16 08:56; Admin Dose 40 MG; Start 10/25/16 at 09:00 Amiodarone HCl (Cordarone) 200 mg BID PO Last administered on 10/28/16 08:57; Admin Dose 200 MG; Start 10/24/16 at 21:00 Prednisone (Prednisone) 10 mg DAILY PO Last administered on 10/28/16 08:57; Admin Dose 10 MG; Start 10/27/16 at 09:00 Furosemide (Lasix) 40 mg 17 PO Last administered on 10/27/16 16:29; Admin Dose 40 MG; Start 10/26/16 at 17:00 Metoprolol Succinate (Toprol Xl) 50 mg DAILY PO Last administered on 10/28/16 08:56; Admin Dose 50 MG; Start 10/28/16 at 09:00 Metoprolol Succinate (Toprol Xl) 50 mg HS PO ; Start 10/28/16 at 21:00 FUNMI MEZA MD Oct 28, 2016 13:59
--- NOTE | 2016-10-28 14:53 | CONS ---
Date/Time of Note Date/Time of Note DATE: 10/28/16 TIME: 14:51 Assessment/Plan Assessment/Plan Chief Complaint/Hosp Course IMPRESSION: 1. Atrial fibrillation with rapid ventricular response.-improved HR and now back in rate controlled AF/AFL by ECG 10/22 2. Congestive heart failure, systolic, acute on chronic. 3. History of cardiomyopathy with decreased left ventricular ejection fraction 20% to 25% per chart biopsy. 4. Shortness of breath. 5. Status post hypercapnic respiratory failure, status post extubation. 6. Chronic obstructive pulmonary disease. 7. Hypertension. 8. Dyslipidemia. 9. History of automatic implantable cardioverter-defibrillator with possible discharge.-s/p interrogation with ICD shock for uncontrolled rapid AF. 10. Pneumonia. 11.Positive troponin-minimal with no sig uptrend 12.Dysuria Recc -Tele -Continue asa/Eliquis -ACEI/BB as tolerated -Continue digoxin -Continue statin -Continue Librado BID -Follow volume status with ongoing lasix diuresis as patient will comply and possible fluid restriction -check UA -awaiting placement Problems: Consultation Date/Type/Reason Admit Date/Time Sep 28, 2016 at 14:41 Initial Consult Date 09/28/16 Type of Consultation: cardiology Reason for Consultation CHF/ICD discharge Referring Provider: DEVON MUHAMMAD MD Exam/Review of Systems Vital Signs Vitals Vital Signs Date Time Temp Pulse Resp B/P Pulse Ox O2 Delivery O2 Flow Rate FiO2 10/28/16 14:10 80 18 93 Nasal Cannula 2.0 10/28/16 08:05 98.9 136/77 Intake and Output 10/27/16 10/27/16 10/28/16 14:59 22:59 06:59 Intake Total 940 ml 920 ml Balance 940 ml 920 ml Exam Review of Systems: CONSTITUTIONAL: No fevers, chills. PULMONARY: No sob CARDIOVASCULAR: No chest pain/palpitations GASTROINTESTINAL: No nausea/vomiting. GENITOURINARY: + dysuria. MUSCULOSKELETAL: No myagias/arthalgias. PSYCHIATRIC: The patient denies depression. NEUROLOGIC: No weakness Constitutional: alert, oriented Psych: no complaints Head: normocephalic ENMT: mucosa pink and moist Neck: jvd (9 cm water), supple Respiratory: diminished breath sounds (at bases/B) Cardiovascular: regular rate and rhythm Gastrointestinal: non-tender, soft Musculoskeletal: muscle tone (normal) Extremities: other (RLE in boot), pitting pedal edema (LLE) Neurological: other (No focal deficits) Results Result Diagram: 10/28/16 0445 Results 24 hrs Laboratory Tests Test 10/27/16 16:24 10/27/16 20:33 10/28/16 04:45 10/28/16 07:55 Bedside Glucose 152 167 86 Anion Gap 12 Blood Urea Nitrogen 32 H Calcium Level 9.1 Carbon Dioxide Level 37 H Chloride Level 96 L Creatinine 0.93 Glucose Level 101 Potassium Level 4.2 Sodium Level 141 Test 10/28/16 11:53 Bedside Glucose 117 Medications Medications Current Medications IV Flush (NS 10 ml) 10 ml PRN PRN IV IV PROTOCOL; Start 09/28/16 at 14:00 Ondansetron HCl (Zofran Inj) 4 mg Q6H PRN IV NAUSEA AND/OR VOMITING; Start at 15:00 Nitroglycerin (Nitroglycerin (Sl Tab) 0.4 Mg) 1 tab Q5M PRN SL CHEST PAIN; Start 09/28/16 at 15:00 Acetaminophen (Tylenol Liquid) 650 mg Q6H PRN PO PAIN LEVEL 1-3 OR FEVER; Start 09/28/16 at 15:00 Acetaminophen (Tylenol Tab) 650 mg Q6H PRN PO PAIN LEVEL 1-3 OR FEVER Last administered on 10/28/16 09:00; Admin Dose 650 MG; Start 09/28/16 at 15:00 Morphine Sulfate (morphine) 2 mg Q4H PRN IV PAIN LEVEL 7-10 Last administered on 09/29/16 02:30; Admin Dose 2 MG; Start 09/28/16 at 15:00 Lorazepam (Ativan) 1 mg Q2H PRN IV ANXIETY; Start 09/28/16 at 15:00 Docusate Sodium (Colace) 100 mg Q12H PRN PO CONSTIPATION; Start 09/28/16 at 15: 00 Famotidine (Pepcid) 20 mg Q12 PO Last administered on 10/28/16 08:57; Admin Dose 20 MG; Start 09/28/16 at 21:00 Aspirin (Aspirin) 81 mg DAILY PO Last administered on 10/28/16 08:55; Admin Dose 81 MG; Start 09/29/16 at 09:00 Atorvastatin Calcium (Lipitor) 10 mg QHS PO Last administered on 10/27/16 20: 29; Admin Dose 10 MG; Start 09/28/16 at 21:00 Tiotropium [place] (Spiriva) 1 inh DAILY INH ; Start 09/28/16 at 16:00; Status Future Hold Mupirocin (Bactroban) 1 applic BID TOP Last administered on 10/28/16 08:57; Admin Dose 1 APPLIC; Start 09/30/16 at 09:00 Diagnostic Test (Pha) (Accucheck) 1 ea 02 XX Last administered on 10/20/16 01: 36; Admin Dose 1 EA; Start 10/05/16 at 02:00 Miscellaneous Information 1 ea NOTE XX ; Start 10/04/16 at 09:00 Glucose (Glutose) 15 gm Q15M PRN PO DECREASED GLUCOSE; Start 10/04/16 at 09:00 Glucose (Glutose) 22.5 gm Q15M PRN PO DECREASED GLUCOSE; Start 10/04/16 at 09: 00 Dextrose (D50w Syringe) 25 ml Q15M PRN IV DECREASED GLUCOSE; Start 10/04/16 at 09:00 Dextrose (D50w Syringe) 50 ml Q15M PRN IV DECREASED GLUCOSE; Start 10/04/16 at 09:00 Glucagon (Glucagen) 1 mg Q15M PRN IM DECREASED GLUCOSE; Start 10/04/16 at 09:00 Glucose (Glutose) 15 gm Q15M PRN BUCCAL DECREASED GLUCOSE; Start 10/04/16 at 09 :00 Metoprolol Tartrate (Lopressor) 5 mg Q4 PRN IV HR>110 Hold SBP<100; Start 10/05 at 19:30 Insulin Glargine (Lantus) 15 unit HS SC Last administered on 10/27/16 20:39; Admin Dose 15 UNIT; Start 10/10/16 at 21:00 Montelukast Sodium (Singulair) 10 mg HS PO Last administered on 10/27/16 20:29 ; Admin Dose 10 MG; Start 10/10/16 at 21:00 Theophylline (Benji-24) 300 mg QHS PO Last administered on 10/27/16 20:29; Admin Dose 300 MG; Start 10/10/16 at 21:00 Apixaban (Eliquis) 5 mg BID PO Last administered on 10/28/16 08:56; Admin Dose 5 MG; Start 10/10/16 at 21:00 Digoxin (Digoxin) 0.125 mg DAILY@13 PO Last administered on 10/28/16 13:53; Admin Dose 0.125 MG; Start 10/12/16 at 13:00 Lisinopril (Zestril) 20 mg DAILY PO Last administered on 10/28/16 08:57; Admin Dose 20 MG; Start 10/12/16 at 09:00 Furosemide (Lasix) 40 mg AM PO Last administered on 10/28/16 08:56; Admin Dose 40 MG; Start 10/25/16 at 09:00 Amiodarone HCl (Cordarone) 200 mg BID PO Last administered on 10/28/16 08:57; Admin Dose 200 MG; Start 10/24/16 at 21:00 Prednisone (Prednisone) 10 mg DAILY PO Last administered on 10/28/16 08:57; Admin Dose 10 MG; Start 10/27/16 at 09:00 Furosemide (Lasix) 40 mg 17 PO Last administered on 10/27/16 16:29; Admin Dose 40 MG; Start 10/26/16 at 17:00 Metoprolol Succinate (Toprol Xl) 50 mg DAILY PO Last administered on 10/28/16 08:56; Admin Dose 50 MG; Start 10/28/16 at 09:00 Metoprolol Succinate (Toprol Xl) 50 mg HS PO ; Start 10/28/16 at 21:00 СВЕТЛАНА PADRON Oct 28, 2016 14:53
[2016-10-28] MEDS: predniSONE 2.5 MG TAB PO SCH (17:34)
[2016-10-28 19:35] LABS: ADD UMIC YES; URINE BILIRUBIN (Dip) NEGATIVE (NEGATIVE); URINE BLOOD (Dip) 3+ (NEGATIVE); URINE COLOR DK. YELLOW (YELLOW); URINE GLUCOSE (Dip) NEGATIVE (NEGATIVE); URINE KETONES (Dip) NEGATIVE (NEGATIVE); URINE LEUKOCYTE ESTERASE (Dip) 3+ (NEGATIVE); URINE NITRITE (Dip) POSITIVE (NEGATIVE); URINE TOTAL PROTEIN (Dip) 2+ (NEGATIVE); URINE UROBILINOGEN (Dip) 0.2 E.U./dL (0.1-1.0)
[2016-10-28 19:38] VITALS: BP 150/71; RESP 16
[2016-10-28 20:11] LABS: BACTERIA,URINE MANY
[2016-10-28] MEDS: INSULIN GLARGINE [LANtus] 3 ML PEN SC SCH (20:33)
[2016-10-28] MEDS: ATORVASTATIN 10 MG TAB PO SCH (20:34)
[2016-10-28] MEDS: MONTELUKAST 10 MG TAB PO SCH (20:34)
[2016-10-28] MEDS: THEOPHYLLINE (SR) 300 MG CAP PO SCH (20:34)
[2016-10-29] MEDS: ALBUTEROL/IPRATROPIUM (NEB) 3 ML AMP HHN SCH ×4 (02:01→19:17)
[2016-10-29] MEDS: LORAZEPAM 2 MG INJ IV PRN ×2 (02:50→20:56)
[2016-10-29] MEDS: CEFTRIAXONE 1 GM/50 ML (PMX) 50 ML IVPB SCH (05:20)
[2016-10-29] MEDS: INSULIN ASPART [NOVOLOG] 3 ML PEN SC SCH ×7 (07:35→21:00)
[2016-10-29 08:14] VITALS: BP 122/73; RESP 20
[2016-10-29] MEDS: MUPIROCIN 2% 22 GM OINT TOP SCH ×2 (08:58→21:02)
[2016-10-29] MEDS: APIXABAN 5 MG TABLET PO SCH ×2 (09:00→21:00)
[2016-10-29] MEDS: ASPIRIN 81 MG TAB PO SCH (09:00)
[2016-10-29] MEDS: LISINOPRIL 5 MG TAB PO SCH (09:01)
[2016-10-29] MEDS: FUROSEMIDE 40 MG TAB PO SCH ×2 (09:01→16:41)
[2016-10-29] MEDS: FAMOTIDINE 20 MG TAB PO SCH ×2 (09:01→20:56)
[2016-10-29] MEDS: predniSONE 10 MG TAB PO SCH (09:01)
[2016-10-29] MEDS: AMIODARONE 200 MG TAB PO SCH ×2 (09:02→20:57)
[2016-10-29] MEDS: METOPROLOL (XL) 25 MG TAB PO SCH ×2 (09:02→20:40)
[2016-10-29] MEDS: DIGOXIN 0.125 MG TAB PO SCH (13:24)
--- NOTE | 2016-10-29 13:40 | CONS ---
Date/Time of Note Date/Time of Note DATE: 10/29/16 TIME: 13:33 Assessment/Plan Assessment/Plan Chief Complaint/Hosp Course IMPRESSION: 1. Atrial fibrillation with rapid ventricular response.-improved HR and now back in rate controlled AF/AFL by ECG 10/22 2. Congestive heart failure, systolic, acute on chronic. 3. History of cardiomyopathy with decreased left ventricular ejection fraction 20% to 25% per chart biopsy. 4. Shortness of breath. 5. Status post hypercapnic respiratory failure, status post extubation. 6. Chronic obstructive pulmonary disease. 7. Hypertension. 8. Dyslipidemia. 9. History of automatic implantable cardioverter-defibrillator with possible discharge.-s/p interrogation with ICD shock for uncontrolled rapid AF. 10. Pneumonia. 11.Positive troponin-minimal with no sig uptrend 12.Dysuria Recc -Med/surg -Continue asa/Eliquis -ACEI/BB as tolerated -Continue digoxin -Continue statin -Follow volume status with ongoing lasix diuresis as patient will comply and possible fluid restriction -awaiting placement Problems: Consultation Date/Type/Reason Admit Date/Time Sep 28, 2016 at 14:41 Initial Consult Date 09/28/16 Type of Consultation: cardiology Reason for Consultation AICD discharge/CHF Referring Provider: DEVON MUHAMMAD MD Exam/Review of Systems Vital Signs Vitals Vital Signs Date Time Temp Pulse Resp B/P Pulse Ox O2 Delivery O2 Flow Rate FiO2 10/29/16 09:56 Nasal Cannula 2.0 10/29/16 09:00 84 20 95 10/29/16 08:14 97.1 122/73 Intake and Output 10/28/16 10/28/16 10/29/16 15:00 23:00 07:00 Intake Total 1700 ml 650 ml Balance 1700 ml 650 ml Exam Review of Systems: CONSTITUTIONAL: No fevers, chills. PULMONARY: No sob CARDIOVASCULAR: No chest pain/palpitations GASTROINTESTINAL: No nausea/vomiting. GENITOURINARY: No hematuria/dysuria. MUSCULOSKELETAL: No myagias/arthalgias. PSYCHIATRIC: The patient denies depression. NEUROLOGIC: No weakness Constitutional: alert Psych: no complaints Head: normocephalic ENMT: mucosa pink and moist Neck: jvd (9 cm water), supple Respiratory: diminished breath sounds Cardiovascular: regular rate and rhythm Gastrointestinal: non-tender, soft Musculoskeletal: muscle tone (normal) Extremities: pitting pedal edema Neurological: lethargic (no focal deficits) Results Result Diagram: 10/28/16 0445 Results 24 hrs Laboratory Tests Test 10/28/16 17:32 10/28/16 19:00 10/28/16 20:30 10/29/16 08:01 Bedside Glucose 115 156 100 Urine Bacteria MANY Urine Bilirubin NEGATIVE Urine Clarity CLOUDY H Urine Color DK. YELLOW Urine Epithelial Cells FEW Urine Glucose NEGATIVE Urine Hemoglobin 3+ H Urine Ketones NEGATIVE Urine Leukocyte Esterase 3+ H Urine Microscopic RBC 10-25 Urine Microscopic WBC >200 Urine Nitrite POSITIVE H Urine Specific [place] 1.025 Urine Total Protein 2+ H Urine Urobilinogen 0.2 E.U./dL Urine pH 6.5 Medications Medications Current Medications IV Flush (NS 10 ml) 10 ml PRN PRN IV IV PROTOCOL; Start 09/28/16 at 14:00 Ondansetron HCl (Zofran Inj) 4 mg Q6H PRN IV NAUSEA AND/OR VOMITING; Start at 15:00 Nitroglycerin (Nitroglycerin (Sl Tab) 0.4 Mg) 1 tab Q5M PRN SL CHEST PAIN; Start 09/28/16 at 15:00 Acetaminophen (Tylenol Liquid) 650 mg Q6H PRN PO PAIN LEVEL 1-3 OR FEVER; Start 09/28/16 at 15:00 Acetaminophen (Tylenol Tab) 650 mg Q6H PRN PO PAIN LEVEL 1-3 OR FEVER Last administered on 10/28/16 09:00; Admin Dose 650 MG; Start 09/28/16 at 15:00 Morphine Sulfate (morphine) 2 mg Q4H PRN IV PAIN LEVEL 7-10 Last administered on 09/29/16 02:30; Admin Dose 2 MG; Start 09/28/16 at 15:00 Lorazepam (Ativan) 1 mg Q2H PRN IV ANXIETY Last administered on 10/29/16 02:50 ; Admin Dose 1 MG; Start 09/28/16 at 15:00 Docusate Sodium (Colace) 100 mg Q12H PRN PO CONSTIPATION; Start 09/28/16 at 15: 00 Famotidine (Pepcid) 20 mg Q12 PO Last administered on 10/29/16 09:01; Admin Dose 20 MG; Start 09/28/16 at 21:00 Aspirin (Aspirin) 81 mg DAILY PO Last administered on 10/28/16 08:55; Admin Dose 81 MG; Start 09/29/16 at 09:00 Atorvastatin Calcium (Lipitor) 10 mg QHS PO Last administered on 10/28/16 20: 34; Admin Dose 10 MG; Start 09/28/16 at 21:00 Tiotropium [place] (Spiriva) 1 inh DAILY INH ; Start 09/28/16 at 16:00; Status Future Hold Mupirocin (Bactroban) 1 applic BID TOP Last administered on 10/29/16 08:58; Admin Dose 1 APPLIC; Start 09/30/16 at 09:00 Diagnostic Test (Pha) (Accucheck) 1 ea 02 XX Last administered on 10/20/16 01: 36; Admin Dose 1 EA; Start 10/05/16 at 02:00 Miscellaneous Information 1 ea NOTE XX ; Start 10/04/16 at 09:00 Glucose (Glutose) 15 gm Q15M PRN PO DECREASED GLUCOSE; Start 10/04/16 at 09:00 Glucose (Glutose) 22.5 gm Q15M PRN PO DECREASED GLUCOSE; Start 10/04/16 at 09: 00 Dextrose (D50w Syringe) 25 ml Q15M PRN IV DECREASED GLUCOSE; Start 10/04/16 at 09:00 Dextrose (D50w Syringe) 50 ml Q15M PRN IV DECREASED GLUCOSE; Start 10/04/16 at 09:00 Glucagon (Glucagen) 1 mg Q15M PRN IM DECREASED GLUCOSE; Start 10/04/16 at 09:00 Glucose (Glutose) 15 gm Q15M PRN BUCCAL DECREASED GLUCOSE; Start 10/04/16 at 09 :00 Metoprolol Tartrate (Lopressor) 5 mg Q4 PRN IV HR>110 Hold SBP<100; Start 10/05 at 19:30 Insulin Glargine (Lantus) 15 unit HS SC Last administered on 10/28/16 20:33; Admin Dose 15 UNIT; Start 10/10/16 at 21:00 Montelukast Sodium (Singulair) 10 mg HS PO Last administered on 10/28/16 20:34 ; Admin Dose 10 MG; Start 10/10/16 at 21:00 Theophylline (Benji-24) 300 mg QHS PO Last administered on 10/28/16 20:34; Admin Dose 300 MG; Start 10/10/16 at 21:00 Apixaban (Eliquis) 5 mg BID PO Last administered on 10/28/16 20:34; Admin Dose 5 MG; Start 10/10/16 at 21:00 Digoxin (Digoxin) 0.125 mg DAILY@13 PO Last administered on 10/29/16 13:24; Admin Dose 0.125 MG; Start 10/12/16 at 13:00 Lisinopril (Zestril) 20 mg DAILY PO Last administered on 10/29/16 09:01; Admin Dose 20 MG; Start 10/12/16 at 09:00 Furosemide (Lasix) 40 mg AM PO Last administered on 10/29/16 09:01; Admin Dose 40 MG; Start 10/25/16 at 09:00 Amiodarone HCl (Cordarone) 200 mg BID PO Last administered on 10/29/16 09:02; Admin Dose 200 MG; Start 10/24/16 at 21:00 Prednisone (Prednisone) 10 mg DAILY PO Last administered on 10/29/16 09:01; Admin Dose 10 MG; Start 10/27/16 at 09:00 Furosemide (Lasix) 40 mg 17 PO Last administered on 10/28/16 17:34; Admin Dose 40 MG; Start 10/26/16 at 17:00 Metoprolol Succinate (Toprol Xl) 50 mg DAILY PO Last administered on 10/29/16 09:02; Admin Dose 50 MG; Start 10/28/16 at 09:00 Metoprolol Succinate 50 mg 50 mg HS PO Last administered on 10/28/16 20:35; Admin Dose 50 MG; Start 10/28/16 at 21:00 Ceftriaxone Sodium (Rocephin) 50 ml @ 100 mls/hr Q24H IVPB Last administered on 10/29/16 05:20; Admin Dose 100 MLS/HR; Start 10/29/16 at 05:00 СВЕТЛАНА PADRON Oct 29, 2016 13:40
--- NOTE | 2016-10-29 14:04 | PN ---
Date/Time of Note Date/Time of Note DATE: 10/29/16 TIME: 13:59 Assessment/Plan VTE Prophylaxis VTE Prophylaxis Intervention: other (eliquis) Lines/Catheters IV [facility]ter Type [facility]from [facility]): Saline Lock Urinary Cath still in place: No Assessment/Plan Chief Complaint/Hosp Course This is a 66-year-old gentleman who is known to our service from prior hospitalization with a past medical history of ischemic cardiomyopathy, ejection fraction 25%, coronary artery disease, hypertension, dyslipidemia, COPD , CHF who resides at [facility], sick sinus syndrome, status post pacemaker placement, ischemic cardiomyopathy, atrial fibrillation who was found to have increased shortness of breath at [facility] and was transferred to [facility] Emergency Room via EMS, where he was found to have oxygen saturation of 69% in room air. His ABG showed pH of 7.269, pCO2 94.4, pCO2 57.5, bicarbonate 42.3, oxygen saturation 85.1%. He was placed on BiPAP, which he was not able to tolerate and continued to become more hypoxic. Therefore, he was intubated in the course of the emergency room. Pulmonology was consulted. The patient was also treated with Solu-Medrol, cefepime, breathing treatment, and at this time he has been placed on propofol secondary to intubation. Patient was treated with antibiotics, nebulizer and steroid for pneumonia and COPD exacerbation, symptoms improved. He got extubated. Respiratory culture positive for ESBL E. Coli, and Luaren albicans, that he is on invanz and diflucan. Patient is clinically stable. No more antibiotics is needed per ID. Patient had atrial fibrillation with RVR. Toprol XL was increased to 50 mg daily. He is with sinus rhythm now. He had CAD, troponin was slightly increased to 0.167. It is considered tachycardia related. He had ICD shock like feeling that resolved after ICD was adjusted. Problems: Assessment/Plan 1. COPD exacerbation, stable, neb, decrease steroid 2. facility acquired pneumonia, with ESBL E. Coli, and Lauren albicans, treated 3. Atrial fibrillation with RVR, sinus now, follow up with cardiology 4. Mildly elevated troponin, likely tachycardia related, follow up with cardiology 5. Congestive heart failure, systolic, chronic, stable 6. Ischemic cardiomyopathy 7. CAD 8. s/p ICD, stable 9. Essential hypertension, stable 10. Dyslipidemia. Continue statin. 11. Hx of Foot Fx- stable 12. DVT prophylaxis: eliquis 13. Social disposition, awaiting for placement 14. UTI, on rocephin Subjective 24 Hr Interval Summary Free Text/Dictation blood in urine. positive UA, on rocephin Exam/Review of Systems Vital Signs Vitals Vital Signs Date Time Temp Pulse Resp B/P Pulse Ox O2 Delivery O2 Flow Rate FiO2 10/29/16 13:54 84 20 96 Nasal Cannula 2.0 10/29/16 08:14 97.1 122/73 Intake and Output 10/28/16 10/28/16 10/29/16 15:00 23:00 07:00 Intake Total 1700 ml 650 ml Balance 1700 ml 650 ml Exam Constitutional: alert, oriented, well developed Psych: nl mood/affect, no complaints Head: normocephalic Eyes: EOMI, nl conjunctiva, nl lids ENMT: nl external ears & nose, nl lips & teeth, nl nasal mucosa & septum Neck: non-tender, supple Respiratory: clear to auscultation, normal air movement, No congested cough, No crackles/rales, No diminished breath sounds, No intercostal retraction, No labored breathing, No other, No respirations, No tactile fremitus, No wheezing Cardiovascular: nl pulses, regular rate and rhythm Gastrointestinal: nl liver, spleen, non-tender, soft, No ascites, No bowel sounds, No distended, No firm, No hepatomegaly, No mass , No other, No rebound or guarding, No splenomegaly, No surgical scars, No tender Musculoskeletal: nl extremities to inspection Neurological: MOLD STACKER II-XII intact, nl mental status, nl speech, nl strength Results Result Diagram: 10/28/16 0445 Results 24 hrs Laboratory Tests Test 10/28/16 17:32 10/28/16 19:00 10/28/16 20:30 10/29/16 08:01 Bedside Glucose 115 156 100 Urine Bacteria MANY Urine Bilirubin NEGATIVE Urine Clarity CLOUDY H Urine Color DK. YELLOW Urine Epithelial Cells FEW Urine Glucose NEGATIVE Urine Hemoglobin 3+ H Urine Ketones NEGATIVE Urine Leukocyte Esterase 3+ H Urine Microscopic RBC 10-25 Urine Microscopic WBC >200 Urine Nitrite POSITIVE H Urine Specific [place] 1.025 Urine Total Protein 2+ H Urine Urobilinogen 0.2 E.U./dL Urine pH 6.5 Medications Medications Current Medications IV Flush (NS 10 ml) 10 ml PRN PRN IV IV PROTOCOL; Start 09/28/16 at 14:00 Ondansetron HCl (Zofran Inj) 4 mg Q6H PRN IV NAUSEA AND/OR VOMITING; Start at 15:00 Nitroglycerin (Nitroglycerin (Sl Tab) 0.4 Mg) 1 tab Q5M PRN SL CHEST PAIN; Start 09/28/16 at 15:00 Acetaminophen (Tylenol Liquid) 650 mg Q6H PRN PO PAIN LEVEL 1-3 OR FEVER; Start 09/28/16 at 15:00 Acetaminophen (Tylenol Tab) 650 mg Q6H PRN PO PAIN LEVEL 1-3 OR FEVER Last administered on 10/28/16 09:00; Admin Dose 650 MG; Start 09/28/16 at 15:00 Morphine Sulfate (morphine) 2 mg Q4H PRN IV PAIN LEVEL 7-10 Last administered on 09/29/16 02:30; Admin Dose 2 MG; Start 09/28/16 at 15:00 Lorazepam (Ativan) 1 mg Q2H PRN IV ANXIETY Last administered on 10/29/16 02:50 ; Admin Dose 1 MG; Start 09/28/16 at 15:00 Docusate Sodium (Colace) 100 mg Q12H PRN PO CONSTIPATION; Start 09/28/16 at 15: 00 Famotidine (Pepcid) 20 mg Q12 PO Last administered on 10/29/16 09:01; Admin Dose 20 MG; Start 09/28/16 at 21:00 Aspirin (Aspirin) 81 mg DAILY PO Last administered on 10/28/16 08:55; Admin Dose 81 MG; Start 09/29/16 at 09:00 Atorvastatin Calcium (Lipitor) 10 mg QHS PO Last administered on 10/28/16 20: 34; Admin Dose 10 MG; Start 09/28/16 at 21:00 Tiotropium [employer] (Spiriva) 1 inh DAILY INH ; Start 09/28/16 at 16:00; Status Future Hold Mupirocin (Bactroban) 1 applic BID TOP Last administered on 10/29/16 08:58; Admin Dose 1 APPLIC; Start 09/30/16 at 09:00 Diagnostic Test (Pha) (Accucheck) 1 ea 02 XX Last administered on 10/20/16 01: 36; Admin Dose 1 EA; Start 10/05/16 at 02:00 Miscellaneous Information 1 ea NOTE XX ; Start 10/04/16 at 09:00 Glucose (Glutose) 15 gm Q15M PRN PO DECREASED GLUCOSE; Start 10/04/16 at 09:00 Glucose (Glutose) 22.5 gm Q15M PRN PO DECREASED GLUCOSE; Start 10/04/16 at 09: 00 Dextrose (D50w Syringe) 25 ml Q15M PRN IV DECREASED GLUCOSE; Start 10/04/16 at 09:00 Dextrose (D50w Syringe) 50 ml Q15M PRN IV DECREASED GLUCOSE; Start 10/04/16 at 09:00 Glucagon (Glucagen) 1 mg Q15M PRN IM DECREASED GLUCOSE; Start 10/04/16 at 09:00 Glucose (Glutose) 15 gm Q15M PRN BUCCAL DECREASED GLUCOSE; Start 10/04/16 at 09 :00 Metoprolol Tartrate (Lopressor) 5 mg Q4 PRN IV HR>110 Hold SBP<100; Start 10/05 at 19:30 Insulin Glargine (Lantus) 15 unit HS SC Last administered on 10/28/16 20:33; Admin Dose 15 UNIT; Start 10/10/16 at 21:00 Montelukast Sodium (Singulair) 10 mg HS PO Last administered on 10/28/16 20:34 ; Admin Dose 10 MG; Start 10/10/16 at 21:00 Theophylline (Benji-24) 300 mg QHS PO Last administered on 10/28/16 20:34; Admin Dose 300 MG; Start 10/10/16 at 21:00 Apixaban (Eliquis) 5 mg BID PO Last administered on 10/28/16 20:34; Admin Dose 5 MG; Start 10/10/16 at 21:00 Digoxin (Digoxin) 0.125 mg DAILY@13 PO Last administered on 10/29/16 13:24; Admin Dose 0.125 MG; Start 10/12/16 at 13:00 Lisinopril (Zestril) 20 mg DAILY PO Last administered on 10/29/16 09:01; Admin Dose 20 MG; Start 10/12/16 at 09:00 Furosemide (Lasix) 40 mg AM PO Last administered on 10/29/16 09:01; Admin Dose 40 MG; Start 10/25/16 at 09:00 Amiodarone HCl (Cordarone) 200 mg BID PO Last administered on 10/29/16 09:02; Admin Dose 200 MG; Start 10/24/16 at 21:00 Prednisone (Prednisone) 10 mg DAILY PO Last administered on 10/29/16 09:01; Admin Dose 10 MG; Start 10/27/16 at 09:00 Furosemide (Lasix) 40 mg 17 PO Last administered on 10/28/16 17:34; Admin Dose 40 MG; Start 10/26/16 at 17:00 Metoprolol Succinate (Toprol Xl) 50 mg DAILY PO Last administered on 10/29/16 09:02; Admin Dose 50 MG; Start 10/28/16 at 09:00 Metoprolol Succinate 50 mg 50 mg HS PO Last administered on 10/28/16 20:35; Admin Dose 50 MG; Start 10/28/16 at 21:00 Ceftriaxone Sodium (Rocephin) 50 ml @ 100 mls/hr Q24H IVPB Last administered on 10/29/16 05:20; Admin Dose 100 MLS/HR; Start 10/29/16 at 05:00 FUNMI MEZA MD Oct 29, 2016 14:03
[2016-10-29] MEDS: predniSONE 2.5 MG TAB PO SCH (16:41)
[2016-10-29 20:00] VITALS: BP 102/61; RESP 20
--- NOTE | 2016-10-29 20:45 | PN ---
Date/Time of Note Date/Time of Note DATE: 10/29/16 TIME: 20:45 Assessment/Plan Lines/Catheters IV Catheter Type (from Nrs): Saline Lock [place] in Place (from Nrs): No Assessment/Plan Problems: (1) Right foot injury Status: Acute Qualifiers: Encounter type: initial encounter Qualified Code: S99.921A - Right foot injury, initial encounter (2) Peripheral vascular disease (3) Left foot pain (4) Foot fracture, right Status: Chronic Qualifiers: Encounter type: initial encounter Fracture type: closed Qualified Code: S92.901A - Foot fracture, right, closed, initial encounter (5) Nondisplaced fracture of fourth metatarsal bone, left foot, initial encounter for closed fracture Status: Acute (6) Diabetes mellitus type 2 in nonobese Status: Chronic Assessment/Plan Continue to monitor patient. I will see the patient in-house. Subjective 24 Hr Interval Summary Patient was seen at bedside. Patient is in no acute distress. Patient reports no new adverse events. Patient denies fever, chills, nausea or vomiting. Patient denies pain. Patient denies recent trauma. Patient reports bandages are being changed as directed. Patient does not report any new problems. Constitutional: no complaints Pain Control: well controlled Exam/Review of Systems Vital Signs Vitals Vital Signs Date Time Temp Pulse Resp B/P Pulse Ox O2 Delivery O2 Flow Rate FiO2 11/16/16 10:56 Nasal Cannula 3.0 11/16/16 08:24 72 18 93 11/16/16 07:38 100.2 104/64 Intake and Output 11/15/16 11/15/16 11/16/16 15:00 23:00 07:00 Intake Total 980 ml 240 ml Output Total 1020 ml 550 ml Balance -40 ml -310 ml Exam Free Text/Dictation The patient is laying supine in bed in no acute distress. Nontender to exam and palpation. Pedal pulses are palpable bilaterally. Edema continues bilateral lower extremity. Protective sensation is diminished to sharp, dull, vibratory and temperature stimuli. Deep tendon reflexes are normal bilaterally. Muscle power is 5/5 bilateral lower extremity. No calf atrophy noted on exam. Results Result Diagram: 11/14/16 0440 11/15/16 0750 JESUS OAKES DPM Oct 29, 2016 20:45
[2016-10-29] MEDS: THEOPHYLLINE (SR) 300 MG CAP PO SCH (20:56)
[2016-10-29] MEDS: ATORVASTATIN 10 MG TAB PO SCH (20:56)
[2016-10-29] MEDS: MONTELUKAST 10 MG TAB PO SCH (20:57)
[2016-10-29] MEDS: INSULIN GLARGINE [LANtus] 3 ML PEN SC SCH (21:05)
[2016-10-30] VITALS (18 sets, daily range): BP systolic 82–130; BP diastolic 51–78; PULSE 76–121; RESP 20–34
[2016-10-30] MEDS: ALBUTEROL/IPRATROPIUM (NEB) 3 ML AMP HHN SCH ×4 (01:38→20:44)
[2016-10-30] MEDS: ACCU-CHEK XX SCH (02:00)
[2016-10-30 02:19] LABS: AADO2 Arterial 239.1 mmHg (7.0-24.0); Allen Test ACCEPTAB; Arterial Base Excess 9.7 mmol/L (-3.0-3); Arterial COHb 0.2 % (0.0-3.0); Arterial Fraction of Oxyhgb 90.5 % (93.0-99.0); Arterial HCO3 34.9 mmol/L (22.0-26.0); Arterial MetHb 0.3 % (0.0-1.5); Arterial Total Hemglobin 12.3 g/dl (12.0-18.0); MODE MASK - VENTI
[2016-10-30] MEDS ORDERED: SOD CHLORIDE 0.9% 250 ML IV ONE (05:00)
[2016-10-30] MEDS: CEFTRIAXONE 1 GM/50 ML (PMX) 50 ML IVPB SCH (05:06)
[2016-10-30 06:27] LABS: ADD SCAN DIFF NO
[2016-10-30 06:54] LABS: ABNORMAL IP MESSAGE 1; BASOPHIL # 0.1 10^3/ul (0.0-0.1); BASOPHILS % 0.3 % (0.0-2.0); HEMATOCRIT 33.3 % (42.0-52.0); HEMOGLOBIN 10.7 g/dl (14.0-18.0); LYMPHOCYTES # 0.4 10^3/ul (0.8-2.9); MEAN CORPUSCULAR HEMOGLOBIN 32.5 pg (29.0-33.0); MEAN CORPUSCULAR HGB CONC 32.1 g/dl (32.0-37.0); MEAN CORPUSCULAR VOLUME 101.2 fl (82.0-101.0); MEAN PLATELET VOLUME 9.5 fl (7.4-10.4); MONOCYTE # 1.9 10^3/ul (0.3-0.9); MONOCYTES % 9.4 % (0.0-11.0); NEUTROPHIL # 17.3 10^3/ul (1.6-7.5); NEUTROPHILS % 85.2 % (39.0-77.0); PLATELET COUNT 251 10^3/UL (140-415); RED BLOOD COUNT 3.29 10^6/ul (4.70-6.10); RED CELL DISTRIBUTION WIDTH 15.2 % (11.5-14.5); WHITE BLOOD COUNT 20.3 10^3/ul (4.8-10.8)
[2016-10-30 06:59] LABS: ALBUMIN 3.3 g/dl (3.3-4.9)
[2016-10-30 07:02] LABS: ALBUMIN/GLOBULIN RATIO 1.26; BILIRUBIN,INDIRECT 0.3 mg/dl (0-1.1); BILIRUBIN,TOTAL 0.3 mg/dl (0.2-1.3); CREATININE 1.08 mg/dl (0.61-1.24); TOTAL PROTEIN 5.9 g/dl (6.1-8.1)
[2016-10-30 07:03] LABS: CALCIUM 8.8 mg/dl (8.4-10.2); PHOSPHORUS 3.9 mg/dl (2.5-4.9)
[2016-10-30] MEDS: LISINOPRIL 5 MG TAB PO SCH (08:20)
[2016-10-30] MEDS: APIXABAN 5 MG TABLET PO SCH ×2 (08:20→21:55)
[2016-10-30] MEDS: ASPIRIN 81 MG TAB PO SCH (08:20)
[2016-10-30] MEDS: MUPIROCIN 2% 22 GM OINT TOP SCH ×2 (08:20→22:38)
[2016-10-30] MEDS: FAMOTIDINE 20 MG TAB PO SCH ×2 (08:21→21:53)
[2016-10-30] MEDS: AMIODARONE 200 MG TAB PO SCH ×2 (08:21→21:55)
[2016-10-30] MEDS: METOPROLOL (XL) 25 MG TAB PO SCH ×2 (08:21→21:54)
[2016-10-30] MEDS: FUROSEMIDE 40 MG TAB PO SCH ×2 (08:22→17:37)
[2016-10-30] MEDS: INSULIN ASPART [NOVOLOG] 3 ML PEN SC SCH ×7 (08:28→21:00)
--- NOTE | 2016-10-30 08:46 | CONS ---
Date/Time of Note Date/Time of Note DATE: 10/30/16 TIME: 08:42 Assessment/Plan Assessment/Plan Additional Assessment/Plan Assessment and recommendations; 1. Patient initially admitted with respiratory failure due to severe pneumonia several weeks ago and has had a very prolonged hospital stay. 2. Patient was doing fairly well on the medical floor however developed atrial fibrillation with RVR requiring transfer to ICU. Currently now in sinus rhythm again. 3. History of severe COPD currently doing very well. 4. UTI. On Rocephin. 5. Compensated CHF. 6. History of cardiac arrhythmia. History of atrial fibrillation. 7. Diabetes. 8. Hypertension. Continue current treatment for now patient responding well. Consultation Date/Type/Reason Admit Date/Time Sep 28, 2016 at 14:41 Initial Consult Date 09/28/16 Type of Consultation: Pulmonary/critical care Referring Provider: DEVON MUHAMMAD MD 24 HR Interval Summary Free Text/Dictation Patient was transferred to ICU last night because of development of atrial fibrillation with RVR. Patient currently is in sinus rhythm now there were no telemedicine beds available therefore patient had to be transferred to ICU. By the time I saw him this morning patient is not completely awake alert he denies any shortness of breath wheezing cough sputum production. General examination; elderly male, currently in no distress. Awake and alert. Exam/Review of Systems Vital Signs Vitals Vital Signs Date Time Temp Pulse Resp B/P Pulse Ox O2 Delivery O2 Flow Rate FiO2 10/30/16 08:00 119 10/30/16 08:00 98.7 29 117/68 94 Nasal Cannula 3.0 10/30/16 01:49 50 Intake and Output 10/29/16 10/29/16 10/30/16 15:00 23:00 07:00 Intake Total 1080 ml 300 ml Output Total 200 ml Balance 1080 ml 100 ml Exam HEENT examination; supple neck, no JVD. No lymphadenopathy. Midline trachea. No thyromegaly. Patient is edentulous and wears dentures. Pupils are small bilaterally. Chest examination; diminished but clear breath sounds bilaterally. S1-S2 audible, no murmurs. Regular rhythm. Tachycardic. There is a pacemaker in the left chest wall. Abdomen examination; soft, nondistended. No organomegaly. Bowel sounds audible. Extremity examination; no peripheral edema. Patient does have contractures involving both hands bilaterally. Right foot is in a brace. THERAPIST RADIATION examination; no peripheral edema. Results Result Diagram: 10/30/16 0542 10/30/16 0550 Results 24 hrs Laboratory Tests Test 10/29/16 16:38 10/29/16 21:00 10/30/16 02:10 10/30/16 02:12 Bedside Glucose 125 162 148 Arterial Blood HCO3 34.9 H Arterial Blood Base Excess 9.7 H Arterial Blood Oxygen Saturation 91.0 L Thomas Test ACCEPTAB Arterial Blood Gas Puncture Site Left Radial Arterial Blood Carboxyhemoglobin 0.2 Arterial Blood Date Drawn 10/30/2016 2:05:33 AM Arterial Blood Methemoglobin 0.3 Arterial Blood pCO2 (Temp correct) 49.8 H Arterial Blood pH (Temp corrected) 7.464 H Arterial Blood pO2 (Temp corrected) 61.4 L Blood Gas A-a O2 Differential 239.1 H Blood Gas Modality MASK - VENTI Blood Gas Notified Time 10/30/2016 2:19:08 AM Blood Gas Notified Whom LA Blood Gas Specimen Source Blood arterial Blood Gas Temperature 37.0 FiO2 50.0 Oxyhemoglobin Percent 90.5 L Total Hemoglobin 12.3 Test 10/30/16 05:42 10/30/16 05:50 10/30/16 08:04 Basophils # 0.1 Basophils % 0.3 Eosinophils # 0.0 Eosinophils % 0.0 Hematocrit 33.3 L Hemoglobin 10.7 L Lymphocytes # 0.4 L Lymphocytes % 2.0 L Mean Corpuscular Hemoglobin 32.5 Mean Corpuscular Hemoglobin Concent 32.1 Mean Corpuscular Volume 101.2 H Mean Platelet Volume 9.5 # Monocytes # 1.9 H Monocytes % 9.4 Neutrophils # 17.3 H Neutrophils % 85.2 H Nucleated Red Blood Cells # 0.0 Nucleated Red Blood Cells % 0.0 Platelet Count 251 Red Blood Count 3.29 L Red Cell Distribution Width 15.2 H White Blood Count 20.3 #H Alanine Aminotransferase (ALT/SGPT) 27 Albumin 3.3 Albumin/Globulin Ratio 1.26 Alkaline Phosphatase 57 Anion Gap 11 Aspartate Amino Transf (AST/SGOT) 20 Blood Urea Nitrogen 31 H Calcium Level 8.8 Carbon Dioxide Level 39 H Chloride Level 95 L Creatinine 1.08 Direct Bilirubin 0.00 Globulin 2.60 Glucose Level 142 Indirect Bilirubin 0.3 Magnesium Level 2.0 Phosphorus Level 3.9 Potassium Level 4.0 Sodium Level 141 Total Bilirubin 0.3 Total Protein 5.9 L Bedside Glucose 144 Medications Medications Current Medications IV Flush (NS 10 ml) 10 ml PRN PRN IV IV PROTOCOL; Start 09/28/16 at 14:00 Ondansetron HCl (Zofran Inj) 4 mg Q6H PRN IV NAUSEA AND/OR VOMITING; Start at 15:00 Nitroglycerin (Nitroglycerin (Sl Tab) 0.4 Mg) 1 tab Q5M PRN SL CHEST PAIN; Start 09/28/16 at 15:00 Acetaminophen (Tylenol Liquid) 650 mg Q6H PRN PO PAIN LEVEL 1-3 OR FEVER; Start 09/28/16 at 15:00 Acetaminophen (Tylenol Tab) 650 mg Q6H PRN PO PAIN LEVEL 1-3 OR FEVER Last administered on 10/28/16 09:00; Admin Dose 650 MG; Start 09/28/16 at 15:00 Morphine Sulfate (morphine) 2 mg Q4H PRN IV PAIN LEVEL 7-10 Last administered on 09/29/16 02:30; Admin Dose 2 MG; Start 09/28/16 at 15:00 Lorazepam (Ativan) 1 mg Q2H PRN IV ANXIETY Last administered on 10/29/16 20:56 ; Admin Dose 1 MG; Start 09/28/16 at 15:00 Docusate Sodium (Colace) 100 mg Q12H PRN PO CONSTIPATION; Start 09/28/16 at 15: 00 Famotidine (Pepcid) 20 mg Q12 PO Last administered on 10/30/16 08:21; Admin Dose 20 MG; Start 09/28/16 at 21:00 Aspirin (Aspirin) 81 mg DAILY PO Last administered on 10/30/16 08:20; Admin Dose 81 MG; Start 09/29/16 at 09:00 Atorvastatin Calcium (Lipitor) 10 mg QHS PO Last administered on 10/29/16 20: 56; Admin Dose 10 MG; Start 09/28/16 at 21:00 Tiotropium [place] (Spiriva) 1 inh DAILY INH ; Start 09/28/16 at 16:00; Status Future Hold Mupirocin (Bactroban) 1 applic BID TOP Last administered on 10/30/16 08:20; Admin Dose 1 APPLIC; Start 09/30/16 at 09:00 Diagnostic Test (Pha) (Accucheck) 1 ea 02 XX Last administered on 10/20/16 01: 36; Admin Dose 1 EA; Start 10/05/16 at 02:00 Miscellaneous Information 1 ea NOTE XX ; Start 10/04/16 at 09:00 Glucose (Glutose) 15 gm Q15M PRN PO DECREASED GLUCOSE; Start 10/04/16 at 09:00 Glucose (Glutose) 22.5 gm Q15M PRN PO DECREASED GLUCOSE; Start 10/04/16 at 09: 00 Dextrose (D50w Syringe) 25 ml Q15M PRN IV DECREASED GLUCOSE; Start 10/04/16 at 09:00 Dextrose (D50w Syringe) 50 ml Q15M PRN IV DECREASED GLUCOSE; Start 10/04/16 at 09:00 Glucagon (Glucagen) 1 mg Q15M PRN IM DECREASED GLUCOSE; Start 10/04/16 at 09:00 Glucose (Glutose) 15 gm Q15M PRN BUCCAL DECREASED GLUCOSE; Start 10/04/16 at 09 :00 Metoprolol Tartrate (Lopressor) 5 mg Q4 PRN IV HR>110 Hold SBP<100; Start 10/05 at 19:30 Insulin Glargine (Lantus) 15 unit HS SC Last administered on 10/29/16 21:05; Admin Dose 15 UNIT; Start 10/10/16 at 21:00 Montelukast Sodium (Singulair) 10 mg HS PO Last administered on 10/29/16 20:57 ; Admin Dose 10 MG; Start 10/10/16 at 21:00 Theophylline (Benji-24) 300 mg QHS PO Last administered on 10/29/16 20:56; Admin Dose 300 MG; Start 10/10/16 at 21:00 Apixaban (Eliquis) 5 mg BID PO Last administered on 10/30/16 08:20; Admin Dose 5 MG; Start 10/10/16 at 21:00 Digoxin (Digoxin) 0.125 mg DAILY@13 PO Last administered on 10/29/16 13:24; Admin Dose 0.125 MG; Start 10/12/16 at 13:00 Lisinopril (Zestril) 20 mg DAILY PO Last administered on 10/30/16 08:20; Admin Dose 20 MG; Start 10/12/16 at 09:00 Furosemide (Lasix) 40 mg AM PO Last administered on 10/30/16 08:22; Admin Dose 40 MG; Start 10/25/16 at 09:00 Amiodarone HCl (Cordarone) 200 mg BID PO Last administered on 10/30/16 08:21; Admin Dose 200 MG; Start 10/24/16 at 21:00 Prednisone (Prednisone) 10 mg DAILY PO Last administered on 10/29/16 09:01; Admin Dose 10 MG; Start 10/27/16 at 09:00 Furosemide (Lasix) 40 mg 17 PO Last administered on 10/29/16 16:41; Admin Dose 40 MG; Start 10/26/16 at 17:00 Metoprolol Succinate (Toprol Xl) 50 mg DAILY PO Last administered on 10/30/16 08:21; Admin Dose 50 MG; Start 10/28/16 at 09:00 Metoprolol Succinate 50 mg 50 mg HS PO Last administered on 10/28/16 20:35; Admin Dose 50 MG; Start 10/28/16 at 21:00 Ceftriaxone Sodium (Rocephin) 50 ml @ 100 mls/hr Q24H IVPB Last administered on 10/30/16 05:06; Admin Dose 100 MLS/HR; Start 10/29/16 at 05:00 ROSE PÉREZ Oct 30, 2016 08:46
[2016-10-30] MEDS ORDERED: VANCOMYCIN 1 GM (PMX) 250 ML IVPB SCH (11:00)
[2016-10-30] MEDS: predniSONE 10 MG TAB PO SCH (11:20)
--- NOTE | 2016-10-30 11:23 | PN ---
DATE: SUBJECTIVE: The patient was transferred to ICU yesterday secondary to desaturation and tachycardia, no fevers. He is afebrile. VITAL SIGNS: Temperature 98.7, pulse 104, respirations 26, blood pressure 117/68, saturation 99% on 3 liters. WBC 20.3, H and H 10.7 and 33.3, platelets 251, neutrophils 85.2. BUN 31, creatinine 1.08. MICROBIOLOGY: Urine culture from 10/28/2016 growing gram-negative rods. ANTIMICROBIALS: The patient is on IV Rocephin. PHYSICAL EXAMINATION: GENERAL: This is a fragile, chronically ill-appearing, elderly man who is lying comfortably in bed. HEENT: Head atraumatic, normocephalic. Sclerae anicteric. Buccal mucosa dry. NECK: Supple, trachea midline. CHEST: Rise symmetrical. Breath sounds diminished to bases. HEART: S1, S2. ABDOMEN: Soft. Bowel tones present. EXTREMITIES: No cyanosis. ASSESSMENT: 1. Status post rapid atrial fibrillation. 2. Sepsis with leukocytosis. 3. Gram-negative rods urinary tract infection. 4. Anemia. 5. History of methicillin-resistant Staphylococcus aureus nares colonization. 6. Chronic obstructive pulmonary disease. PLAN: We are going to change Rocephin to meropenem, repeat nares swab, repeat cultures, and chest x -ray and continue present care. Follow up pulmonary, cardiology recommendations. Dictated By: CODY BRANCH BUNDLE TIER AND LABELER for BERTHA KEITA/NANDO Conf#: [id number] DID#: [id number]
[2016-10-30] MEDS: DIGOXIN 0.125 MG TAB PO SCH (12:09)
--- NOTE | 2016-10-30 12:20 | RADRPT ---
PROCEDURE: XR Chest. CLINICAL INDICATION: Shortness of breath. TECHNIQUE: Single frontal view. COMPARISON: 10/07/2016. FINDINGS: There is a left-sided single lead internal cardiac defibrillator. The heart is enlarged. Calcifica tion is present in the aorta consistent with atherosclerosis. There is mild atelectasis at the lung bases, unchanged. Elevation of the right hemidiaphragm is unc hanged. There may be small bilateral pleural effusions. There is no pneumothorax. IMPRESSION: 1. No change from 10/07/2016. RPTAT: QQ .Demetrius Espinoza MD, MD Date Time Electronically viewed and signed by .Demetrius Espinoza MD, MD on 10/30/2016 12:20 .R/
[2016-10-30] MEDS: MEROPENEM 500 MG/100 ML (PMX) 100 ML IVPB SCH (13:32)
--- NOTE | 2016-10-30 16:10 | CONS ---
Date/Time of Note Date/Time of Note DATE: 10/30/16 TIME: 16:09 Assessment/Plan Assessment/Plan Additional Assessment/Plan Pt transferred from ICU - will monitor. Consultation Date/Type/Reason Admit Date/Time Sep 28, 2016 at 14:41 Initial Consult Date 09/28/16 Type of Consultation: Pulmonary/critical care Referring Provider: DEVON MUHAMMAD MD Exam/Review of Systems Vital Signs Vitals Vital Signs Date Time Temp Pulse Resp B/P Pulse Ox O2 Delivery O2 Flow Rate FiO2 10/30/16 15:46 Nasal Cannula 3.0 10/30/16 12:35 83 122/74 10/30/16 12:00 97.5 24 90 10/30/16 01:49 50 Intake and Output 10/29/16 10/29/16 10/30/16 15:00 23:00 07:00 Intake Total 1080 ml 300 ml Output Total 200 ml Balance 1080 ml 100 ml Results Result Diagram: 10/30/16 0542 10/30/16 0550 Results 24 hrs Laboratory Tests Test 10/29/16 16:38 10/29/16 21:00 10/30/16 02:10 10/30/16 02:12 Bedside Glucose 125 162 148 Arterial Blood HCO3 34.9 H Arterial Blood Base Excess 9.7 H Arterial Blood Oxygen Saturation 91.0 L Thomas Test ACCEPTAB Arterial Blood Gas Puncture Site Left Radial Arterial Blood Carboxyhemoglobin 0.2 Arterial Blood Date Drawn 10/30/2016 2:05:33 AM Arterial Blood Methemoglobin 0.3 Arterial Blood pCO2 (Temp correct) 49.8 H Arterial Blood pH (Temp corrected) 7.464 H Arterial Blood pO2 (Temp corrected) 61.4 L Blood Gas A-a O2 Differential 239.1 H Blood Gas Modality MASK - VENTI Blood Gas Notified Time 10/30/2016 2:19:08 AM Blood Gas Notified Whom [place] Blood Gas Specimen Source Blood arterial Blood Gas Temperature 37.0 FiO2 50.0 Oxyhemoglobin Percent 90.5 L Total Hemoglobin 12.3 Test 10/30/16 05:42 10/30/16 05:50 10/30/16 08:04 10/30/16 12:05 Basophils # 0.1 Basophils % 0.3 Eosinophils # 0.0 Eosinophils % 0.0 Hematocrit 33.3 L Hemoglobin 10.7 L Lymphocytes # 0.4 L Lymphocytes % 2.0 L Mean Corpuscular Hemoglobin 32.5 Mean Corpuscular Hemoglobin Concent 32.1 Mean Corpuscular Volume 101.2 H Mean Platelet Volume 9.5 # Monocytes # 1.9 H Monocytes % 9.4 Neutrophils # 17.3 H Neutrophils % 85.2 H Nucleated Red Blood Cells # 0.0 Nucleated Red Blood Cells % 0.0 Platelet Count 251 Red Blood Count 3.29 L Red Cell Distribution Width 15.2 H White Blood Count 20.3 #H Alanine Aminotransferase (ALT/SGPT) 27 Albumin 3.3 Albumin/Globulin Ratio 1.26 Alkaline Phosphatase 57 Anion Gap 11 Aspartate Amino Transf (AST/SGOT) 20 Blood Urea Nitrogen 31 H Calcium Level 8.8 Carbon Dioxide Level 39 H Chloride Level 95 L Creatinine 1.08 Direct Bilirubin 0.00 Globulin 2.60 Glucose Level 142 Indirect Bilirubin 0.3 Magnesium Level 2.0 Phosphorus Level 3.9 Potassium Level 4.0 Sodium Level 141 Total Bilirubin 0.3 Total Protein 5.9 L Bedside Glucose 144 77 Test 10/30/16 13:41 Bedside Glucose 227 H Medications Medications Current Medications IV Flush (NS 10 ml) 10 ml PRN PRN IV IV PROTOCOL; Start 09/28/16 at 14:00 Ondansetron HCl (Zofran Inj) 4 mg Q6H PRN IV NAUSEA AND/OR VOMITING; Start at 15:00 Nitroglycerin (Nitroglycerin (Sl Tab) 0.4 Mg) 1 tab Q5M PRN SL CHEST PAIN; Start 09/28/16 at 15:00 Acetaminophen (Tylenol Liquid) 650 mg Q6H PRN PO PAIN LEVEL 1-3 OR FEVER; Start 09/28/16 at 15:00 Acetaminophen (Tylenol Tab) 650 mg Q6H PRN PO PAIN LEVEL 1-3 OR FEVER Last administered on 10/28/16 09:00; Admin Dose 650 MG; Start 09/28/16 at 15:00 Morphine Sulfate (morphine) 2 mg Q4H PRN IV PAIN LEVEL 7-10 Last administered on 09/29/16 02:30; Admin Dose 2 MG; Start 09/28/16 at 15:00 Lorazepam (Ativan) 1 mg Q2H PRN IV ANXIETY Last administered on 10/29/16 20:56 ; Admin Dose 1 MG; Start 09/28/16 at 15:00 Docusate Sodium (Colace) 100 mg Q12H PRN PO CONSTIPATION; Start 09/28/16 at 15: 00 Famotidine (Pepcid) 20 mg Q12 PO Last administered on 10/30/16 08:21; Admin Dose 20 MG; Start 09/28/16 at 21:00 Aspirin (Aspirin) 81 mg DAILY PO Last administered on 10/30/16 08:20; Admin Dose 81 MG; Start 09/29/16 at 09:00 Atorvastatin Calcium (Lipitor) 10 mg QHS PO Last administered on 10/29/16 20: 56; Admin Dose 10 MG; Start 09/28/16 at 21:00 Tiotropium [place] (Spiriva) 1 inh DAILY INH ; Start 09/28/16 at 16:00; Status Future Hold Mupirocin (Bactroban) 1 applic BID TOP Last administered on 10/30/16 08:20; Admin Dose 1 APPLIC; Start 09/30/16 at 09:00 Diagnostic Test (Pha) (Accucheck) 1 ea 02 XX Last administered on 10/20/16 01: 36; Admin Dose 1 EA; Start 10/05/16 at 02:00 Miscellaneous Information 1 ea NOTE XX ; Start 10/04/16 at 09:00 Glucose (Glutose) 15 gm Q15M PRN PO DECREASED GLUCOSE; Start 10/04/16 at 09:00 Glucose (Glutose) 22.5 gm Q15M PRN PO DECREASED GLUCOSE; Start 10/04/16 at 09: 00 Dextrose (D50w Syringe) 25 ml Q15M PRN IV DECREASED GLUCOSE; Start 10/04/16 at 09:00 Dextrose (D50w Syringe) 50 ml Q15M PRN IV DECREASED GLUCOSE; Start 10/04/16 at 09:00 Glucagon (Glucagen) 1 mg Q15M PRN IM DECREASED GLUCOSE; Start 10/04/16 at 09:00 Glucose (Glutose) 15 gm Q15M PRN BUCCAL DECREASED GLUCOSE; Start 10/04/16 at 09 :00 Metoprolol Tartrate (Lopressor) 5 mg Q4 PRN IV HR>110 Hold SBP<100; Start 10/05 at 19:30 Insulin Glargine (Lantus) 15 unit HS SC Last administered on 10/29/16 21:05; Admin Dose 15 UNIT; Start 10/10/16 at 21:00 Montelukast Sodium (Singulair) 10 mg HS PO Last administered on 10/29/16 20:57 ; Admin Dose 10 MG; Start 10/10/16 at 21:00 Theophylline (Benji-24) 300 mg QHS PO Last administered on 10/29/16 20:56; Admin Dose 300 MG; Start 10/10/16 at 21:00 Apixaban (Eliquis) 5 mg BID PO Last administered on 10/30/16 08:20; Admin Dose 5 MG; Start 10/10/16 at 21:00 Digoxin (Digoxin) 0.125 mg DAILY@13 PO Last administered on 10/30/16 12:09; Admin Dose 0.125 MG; Start 10/12/16 at 13:00 Lisinopril (Zestril) 20 mg DAILY PO Last administered on 10/30/16 08:20; Admin Dose 20 MG; Start 10/12/16 at 09:00 Furosemide (Lasix) 40 mg AM PO Last administered on 10/30/16 08:22; Admin Dose 40 MG; Start 10/25/16 at 09:00 Amiodarone HCl (Cordarone) 200 mg BID PO Last administered on 10/30/16 08:21; Admin Dose 200 MG; Start 10/24/16 at 21:00 Prednisone (Prednisone) 10 mg DAILY PO Last administered on 10/30/16 11:20; Admin Dose 10 MG; Start 10/27/16 at 09:00 Furosemide (Lasix) 40 mg 17 PO Last administered on 10/29/16 16:41; Admin Dose 40 MG; Start 10/26/16 at 17:00 Metoprolol Succinate (Toprol Xl) 50 mg DAILY PO Last administered on 10/30/16 08:21; Admin Dose 50 MG; Start 10/28/16 at 09:00 Metoprolol Succinate 50 mg 50 mg HS PO Last administered on 10/28/16 20:35; Admin Dose 50 MG; Start 10/28/16 at 21:00 Meropenem (Merrem 500 Mg/ 100 ml (Pmx)) 100 ml @ 200 mls/hr Q12 IVPB Last administered on 10/30/16 13:32; Admin Dose 200 MLS/HR; Start 10/30/16 at 12:00 RAYSHAWN DUNN MD Oct 30, 2016 16:10
[2016-10-30] MEDS: predniSONE 2.5 MG TAB PO SCH (17:37)
[2016-10-30] MEDS: ATORVASTATIN 10 MG TAB PO SCH (21:53)
[2016-10-30] MEDS: MONTELUKAST 10 MG TAB PO SCH (21:53)
[2016-10-30] MEDS: THEOPHYLLINE (SR) 300 MG CAP PO SCH (21:53)
[2016-10-30] MEDS: INSULIN GLARGINE [LANtus] 3 ML PEN SC SCH (22:43)
[2016-10-31] VITALS (12 sets, daily range): BP systolic 92–132; BP diastolic 57–67; PULSE 87–101; RESP 19–20
[2016-10-31] MEDS: MEROPENEM 500 MG/100 ML (PMX) 100 ML IVPB SCH ×2 (00:04→11:58)
[2016-10-31] MEDS: ALBUTEROL/IPRATROPIUM (NEB) 3 ML AMP HHN SCH ×4 (02:02→21:40)
[2016-10-31] MEDS: ACCU-CHEK XX SCH (02:55)
[2016-10-31] MEDS: INSULIN ASPART [NOVOLOG] 3 ML PEN SC SCH ×7 (08:00→21:00)
[2016-10-31] MEDS: METOPROLOL (XL) 25 MG TAB PO SCH ×2 (09:00→22:39)
[2016-10-31] MEDS: FUROSEMIDE 40 MG TAB PO SCH ×2 (10:13→17:08)
[2016-10-31] MEDS: predniSONE 10 MG TAB PO SCH (10:13)
[2016-10-31] MEDS: AMIODARONE 200 MG TAB PO SCH ×2 (10:13→22:40)
[2016-10-31] MEDS: MUPIROCIN 2% 22 GM OINT TOP SCH ×2 (10:14→22:42)
[2016-10-31] MEDS: APIXABAN 5 MG TABLET PO SCH ×2 (10:14→22:40)
[2016-10-31] MEDS: LISINOPRIL 20 MG TAB PO SCH (10:17)
[2016-10-31] MEDS: FAMOTIDINE 20 MG TAB PO SCH ×2 (10:17→22:40)
[2016-10-31] MEDS: ASPIRIN 81 MG TAB PO SCH (10:18)
--- NOTE | 2016-10-31 12:50 | PN ---
Date/Time of Note Date/Time of Note DATE: 10/31/16 TIME: 12:47 Assessment/Plan VTE Prophylaxis VTE Prophylaxis Intervention: other Lines/Catheters IV [facility] Urinary Cath still in place: No Assessment/Plan Problems: (1) COPD (chronic obstructive pulmonary disease) Status: Acute Comment: His breathing status is relatively stable. Ultimately he will need placement in an ECF which we are still awaiting Qualifiers: COPD type: emphysema Emphysema type: panlobular Qualified Code: J43.1 - Panlobular emphysema (2) Acute systolic congestive heart failure Status: Acute Comment: His heart failure is relatively well controlled in fact is modestly volume depleted at this moment continue his treatments without change. (3) Nondisplaced fracture of fourth metatarsal bone, left foot, initial encounter for closed fracture Comment: He had been seen by podiatry consultation Dr. Swan and is in a brace (4) Diabetes mellitus type 2 in nonobese Status: Chronic Comment: Well-controlled (5) Hypertension Status: Chronic Comment: Adequately controlled Qualifiers: Hypertension type: essential hypertension Qualified Code: I10 - Essential hypertension (6) Hyperlipidemia associated with type 2 diabetes mellitus Status: Chronic Comment: On treatment and stable (7) Systolic CHF with reduced left ventricular function, NYHA class 3 Status: Chronic Comment: On full medication management with cardiology following and stable (8) Atrial fibrillation Status: Chronic Comment: Rate is adequately controlled. Qualifiers: Atrial fibrillation type: chronic Qualified Code: I48.2 - Chronic atrial fibrillation Subjective 24 Hr Interval Summary Free Text/Dictation Patient able to carry on a conversation minimally. Pleasant Constitutional: no complaints (Denies fever chills or sweats) Respiratory: no complaints (Reports scant cough no shortness of breath) Cardiovascular: no complaints Gastrointestinal: no complaints Exam/Review of Systems Vital Signs Vitals Vital Signs Date Time Temp Pulse Resp B/P Pulse Ox O2 Delivery O2 Flow Rate FiO2 10/31/16 12:29 96 10/31/16 12:08 97.0 20 92/60 96 10/31/16 09:00 Nasal Cannula 3.0 10/31/16 02:02 32 Intake and Output 10/30/16 10/30/16 10/31/16 14:59 22:59 06:59 Intake Total 600 ml 220 ml 250 ml Balance 600 ml 220 ml 250 ml Exam Neck: non-tender, supple Respiratory: clear to auscultation, normal air movement Cardiovascular: nl pulses, regular rate and rhythm Results Result Diagram: 10/30/16 0542 10/30/16 0550 Results 24 hrs Laboratory Tests Test 10/30/16 13:41 10/30/16 17:40 10/30/16 21:50 10/31/16 02:24 Bedside Glucose 227 H 161 151 189 Test 10/31/16 07:46 10/31/16 11:24 Bedside Glucose 167 154 Medications Medications Current Medications IV Flush (NS 10 ml) 10 ml PRN PRN IV IV PROTOCOL; Start 09/28/16 at 14:00 Ondansetron HCl (Zofran Inj) 4 mg Q6H PRN IV NAUSEA AND/OR VOMITING; Start at 15:00 Nitroglycerin (Nitroglycerin (Sl Tab) 0.4 Mg) 1 tab Q5M PRN SL CHEST PAIN; Start 09/28/16 at 15:00 Acetaminophen (Tylenol Liquid) 650 mg Q6H PRN PO PAIN LEVEL 1-3 OR FEVER; Start 09/28/16 at 15:00 Acetaminophen (Tylenol Tab) 650 mg Q6H PRN PO PAIN LEVEL 1-3 OR FEVER Last administered on 10/28/16 09:00; Admin Dose 650 MG; Start 09/28/16 at 15:00 Morphine Sulfate (morphine) 2 mg Q4H PRN IV PAIN LEVEL 7-10 Last administered on 09/29/16 02:30; Admin Dose 2 MG; Start 09/28/16 at 15:00 Lorazepam (Ativan) 1 mg Q2H PRN IV ANXIETY Last administered on 10/29/16 20:56 ; Admin Dose 1 MG; Start 09/28/16 at 15:00 Docusate Sodium (Colace) 100 mg Q12H PRN PO CONSTIPATION; Start 09/28/16 at 15: 00 Famotidine (Pepcid) 20 mg Q12 PO Last administered on 10/31/16 10:17; Admin Dose 20 MG; Start 09/28/16 at 21:00 Aspirin (Aspirin) 81 mg DAILY PO Last administered on 10/31/16 10:18; Admin Dose 81 MG; Start 09/29/16 at 09:00 Atorvastatin Calcium (Lipitor) 10 mg QHS PO Last administered on 10/30/16 21: 53; Admin Dose 10 MG; Start 09/28/16 at 21:00 Tiotropium [place] (Spiriva) 1 inh DAILY INH ; Start 09/28/16 at 16:00; Status Future Hold Mupirocin (Bactroban) 1 applic BID TOP Last administered on 10/31/16 10:14; Admin Dose 1 APPLIC; Start 09/30/16 at 09:00 Diagnostic Test (Pha) (Accucheck) 1 ea 02 XX Last administered on 10/31/16 02: 55; Admin Dose 1 EA; Start 10/05/16 at 02:00 Miscellaneous Information 1 ea NOTE XX ; Start 10/04/16 at 09:00 Glucose (Glutose) 15 gm Q15M PRN PO DECREASED GLUCOSE; Start 10/04/16 at 09:00 Glucose (Glutose) 22.5 gm Q15M PRN PO DECREASED GLUCOSE; Start 10/04/16 at 09: 00 Dextrose (D50w Syringe) 25 ml Q15M PRN IV DECREASED GLUCOSE; Start 10/04/16 at 09:00 Dextrose (D50w Syringe) 50 ml Q15M PRN IV DECREASED GLUCOSE; Start 10/04/16 at 09:00 Glucagon (Glucagen) 1 mg Q15M PRN IM DECREASED GLUCOSE; Start 10/04/16 at 09:00 Glucose (Glutose) 15 gm Q15M PRN BUCCAL DECREASED GLUCOSE; Start 10/04/16 at 09 :00 Metoprolol Tartrate (Lopressor) 5 mg Q4 PRN IV HR>110 Hold SBP<100; Start 10/05 at 19:30 Insulin Glargine (Lantus) 15 unit HS SC Last administered on 10/30/16 22:43; Admin Dose 15 UNIT; Start 10/10/16 at 21:00 Montelukast Sodium (Singulair) 10 mg HS PO Last administered on 10/30/16 21:53 ; Admin Dose 10 MG; Start 10/10/16 at 21:00 Theophylline (Benji-24) 300 mg QHS PO Last administered on 10/30/16 21:53; Admin Dose 300 MG; Start 10/10/16 at 21:00 Apixaban (Eliquis) 5 mg BID PO Last administered on 10/31/16 10:14; Admin Dose 5 MG; Start 10/10/16 at 21:00 Digoxin (Digoxin) 0.125 mg DAILY@13 PO Last administered on 10/30/16 12:09; Admin Dose 0.125 MG; Start 10/12/16 at 13:00 Furosemide (Lasix) 40 mg AM PO Last administered on 10/31/16 10:13; Admin Dose 40 MG; Start 10/25/16 at 09:00 Amiodarone HCl (Cordarone) 200 mg BID PO Last administered on 10/31/16 10:13; Admin Dose 200 MG; Start 10/24/16 at 21:00 Prednisone (Prednisone) 10 mg DAILY PO Last administered on 10/31/16 10:13; Admin Dose 10 MG; Start 10/27/16 at 09:00 Furosemide (Lasix) 40 mg 17 PO Last administered on 10/30/16 17:37; Admin Dose 40 MG; Start 10/26/16 at 17:00 Metoprolol Succinate (Toprol Xl) 50 mg DAILY PO Last administered on 10/30/16 08:21; Admin Dose 50 MG; Start 10/28/16 at 09:00 Metoprolol Succinate 50 mg 50 mg HS PO Last administered on 10/30/16 21:54; Admin Dose 50 MG; Start 10/28/16 at 21:00 Meropenem (Merrem 500 Mg/ 100 ml (Pmx)) 100 ml @ 200 mls/hr Q12 IVPB Last administered on 10/31/16 11:58; Admin Dose 200 MLS/HR; Start 10/30/16 at 12:00 Lisinopril (Zestril) 20 mg DAILY PO Last administered on 10/31/16 10:17; Admin Dose 20 MG; Start 10/31/16 at 10:09 DEVON MUHAMMAD MD Oct 31, 2016 12:49
[2016-10-31] MEDS: DIGOXIN 0.125 MG TAB PO SCH (13:09)
--- NOTE | 2016-10-31 15:45 | CONS ---
Date/Time of Note Date/Time of Note DATE: 10/31/16 TIME: 15:43 Assessment/Plan Assessment/Plan Additional Assessment/Plan 1. Atrial fibrillation with rapid ventricular response.-improved HR and now back in rate controlled AF/AFL by ECG 10/22 - better HR now. 2. Congestive heart failure, systolic, acute on chronic- con't to keep euvolemic. 3. History of cardiomyopathy with decreased left ventricular ejection fraction 20% to 25% per chart biopsy. Stable. 4. Shortness of breath- improved - con't to Rx in conjunction with pulmonary team. 5. Status post hypercapnic respiratory failure, status post extubation. 6. Chronic obstructive pulmonary disease- on Rx now. 7. Hypertension. 8. Dyslipidemia. 9. History of automatic implantable cardioverter-defibrillator with possible discharge.-s/p interrogation with ICD shock for uncontrolled rapid AF. 10. Pneumonia. 11.Positive troponin-minimal with no sig uptrend 12.Dysuria Consultation Date/Type/Reason Admit Date/Time Sep 28, 2016 at 14:41 Initial Consult Date 09/28/16 Type of Consultation: Pulmonary/critical care Referring Provider: DEVON MUHAMMAD MD 24 HR Interval Summary Free Text/Dictation No acute change. BP stable - con't Rx with therapy as noted. Rate controlled by tele. ROS: No fever, no chills, no nausea, no vomiting, no diarrhea/constipation No recent weight changes No chest pain, no PND, no orthopnea No dizziness, blurred vision No thirst, no heat or cold intolerance better today Exam/Review of Systems Vital Signs Vitals Vital Signs Date Time Temp Pulse Resp B/P Pulse Ox O2 Delivery O2 Flow Rate FiO2 10/31/16 15:05 3.0 10/31/16 13:12 92 20 92 Nasal Cannula 10/31/16 12:08 97.0 92/60 10/31/16 02:02 32 Intake and Output 10/30/16 10/30/16 10/31/16 15:00 23:00 07:00 Intake Total 600 ml 220 ml 250 ml Balance 600 ml 220 ml 250 ml Exam General: WN/WD/NAD, AOx 2-3 HEENT: Unicetric/atraumatic/EOMI (follow commands) NECK: JVD elevated, no thyromegaly Lymph: no lymphadenopathy HEART: regular with no S3, II/ systolic murmur at apex LUNGS: Coarse sounds,occ wheezing ABD: soft, NT, ND, +BS : Intact Neuro: non focal SKIN: chronic changes EXT: trace edema Results Result Diagram: 10/30/16 0542 10/30/16 0550 Results 24 hrs Laboratory Tests Test 10/30/16 17:40 10/30/16 21:50 10/31/16 02:24 10/31/16 07:46 Bedside Glucose 161 151 189 167 Test 10/31/16 11:24 Bedside Glucose 154 Medications Medications Current Medications IV Flush (NS 10 ml) 10 ml PRN PRN IV IV PROTOCOL; Start 09/28/16 at 14:00 Ondansetron HCl (Zofran Inj) 4 mg Q6H PRN IV NAUSEA AND/OR VOMITING; Start at 15:00 Nitroglycerin (Nitroglycerin (Sl Tab) 0.4 Mg) 1 tab Q5M PRN SL CHEST PAIN; Start 09/28/16 at 15:00 Acetaminophen (Tylenol Liquid) 650 mg Q6H PRN PO PAIN LEVEL 1-3 OR FEVER; Start 09/28/16 at 15:00 Acetaminophen (Tylenol Tab) 650 mg Q6H PRN PO PAIN LEVEL 1-3 OR FEVER Last administered on 10/28/16 09:00; Admin Dose 650 MG; Start 09/28/16 at 15:00 Morphine Sulfate (morphine) 2 mg Q4H PRN IV PAIN LEVEL 7-10 Last administered on 09/29/16 02:30; Admin Dose 2 MG; Start 09/28/16 at 15:00 Lorazepam (Ativan) 1 mg Q2H PRN IV ANXIETY Last administered on 10/29/16 20:56 ; Admin Dose 1 MG; Start 09/28/16 at 15:00 Docusate Sodium (Colace) 100 mg Q12H PRN PO CONSTIPATION; Start 09/28/16 at 15: 00 Famotidine (Pepcid) 20 mg Q12 PO Last administered on 10/31/16 10:17; Admin Dose 20 MG; Start 09/28/16 at 21:00 Aspirin (Aspirin) 81 mg DAILY PO Last administered on 10/31/16 10:18; Admin Dose 81 MG; Start 09/29/16 at 09:00 Atorvastatin Calcium (Lipitor) 10 mg QHS PO Last administered on 10/30/16 21: 53; Admin Dose 10 MG; Start 09/28/16 at 21:00 Tiotropium [place] (Spiriva) 1 inh DAILY INH ; Start 09/28/16 at 16:00; Status Future Hold Mupirocin (Bactroban) 1 applic BID TOP Last administered on 10/31/16 10:14; Admin Dose 1 APPLIC; Start 09/30/16 at 09:00 Diagnostic Test (Pha) (Accucheck) 1 ea 02 XX Last administered on 10/31/16 02: 55; Admin Dose 1 EA; Start 10/05/16 at 02:00 Miscellaneous Information 1 ea NOTE XX ; Start 10/04/16 at 09:00 Glucose (Glutose) 15 gm Q15M PRN PO DECREASED GLUCOSE; Start 10/04/16 at 09:00 Glucose (Glutose) 22.5 gm Q15M PRN PO DECREASED GLUCOSE; Start 10/04/16 at 09: 00 Dextrose (D50w Syringe) 25 ml Q15M PRN IV DECREASED GLUCOSE; Start 10/04/16 at 09:00 Dextrose (D50w Syringe) 50 ml Q15M PRN IV DECREASED GLUCOSE; Start 10/04/16 at 09:00 Glucagon (Glucagen) 1 mg Q15M PRN IM DECREASED GLUCOSE; Start 10/04/16 at 09:00 Glucose (Glutose) 15 gm Q15M PRN BUCCAL DECREASED GLUCOSE; Start 10/04/16 at 09 :00 Metoprolol Tartrate (Lopressor) 5 mg Q4 PRN IV HR>110 Hold SBP<100; Start 10/05 at 19:30 Insulin Glargine (Lantus) 15 unit HS SC Last administered on 10/30/16 22:43; Admin Dose 15 UNIT; Start 10/10/16 at 21:00 Montelukast Sodium (Singulair) 10 mg HS PO Last administered on 10/30/16 21:53 ; Admin Dose 10 MG; Start 10/10/16 at 21:00 Theophylline (Benji-24) 300 mg QHS PO Last administered on 10/30/16 21:53; Admin Dose 300 MG; Start 10/10/16 at 21:00 Apixaban (Eliquis) 5 mg BID PO Last administered on 10/31/16 10:14; Admin Dose 5 MG; Start 10/10/16 at 21:00 Digoxin (Digoxin) 0.125 mg DAILY@13 PO Last administered on 10/31/16 13:09; Admin Dose 0.125 MG; Start 10/12/16 at 13:00 Furosemide (Lasix) 40 mg AM PO Last administered on 10/31/16 10:13; Admin Dose 40 MG; Start 10/25/16 at 09:00 Amiodarone HCl (Cordarone) 200 mg BID PO Last administered on 10/31/16 10:13; Admin Dose 200 MG; Start 10/24/16 at 21:00 Prednisone (Prednisone) 10 mg DAILY PO Last administered on 10/31/16 10:13; Admin Dose 10 MG; Start 10/27/16 at 09:00 Furosemide (Lasix) 40 mg 17 PO Last administered on 10/30/16 17:37; Admin Dose 40 MG; Start 10/26/16 at 17:00 Metoprolol Succinate (Toprol Xl) 50 mg DAILY PO Last administered on 10/30/16 08:21; Admin Dose 50 MG; Start 10/28/16 at 09:00 Metoprolol Succinate 50 mg 50 mg HS PO Last administered on 10/30/16 21:54; Admin Dose 50 MG; Start 10/28/16 at 21:00 Meropenem (Merrem 500 Mg/ 100 ml (Pmx)) 100 ml @ 200 mls/hr Q12 IVPB Last administered on 10/31/16 11:58; Admin Dose 200 MLS/HR; Start 10/30/16 at 12:00 Lisinopril (Zestril) 20 mg DAILY PO Last administered on 10/31/16 10:17; Admin Dose 20 MG; Start 10/31/16 at 10:09 RAYSHAWN DUNN MD Oct 31, 2016 15:45
[2016-10-31] MEDS: predniSONE 2.5 MG TAB PO SCH (17:06)
--- NOTE | 2016-10-31 19:03 | CONS ---
Date/Time of Note Date/Time of Note DATE: 10/31/16 TIME: 18:43 Assessment/Plan Assessment/Plan Chief Complaint/Hosp Course D PROGRESS NOTE TOTAL ABX DAY #2 => Merrem s/p Ceftriaxone/Vanco IV 24H INTERVAL SUMMARY * WBC up to 20.3 today, low grade Tmax 99.4 24H * Voiding in urinal -> Repeat Urine 10/28/16: URINE CULTURE Final Organism 1 KLEB PNEUMONIAE CARBAPENEMASE COLONY COUNT >100,000 CFU/ml . MULTI DRUG RESISTANT ORGANISM 09/29/16 CXR:FINDINGS: There is a left-sided single lead internal cardiac defibrillator. The heart is enlarged. Calcification is present in the aorta consistent with atherosclerosis. There is mild atelectasis at the lung bases, unchanged. Elevation of the right hemidiaphragm is unchanged. There may be small bilateral pleural effusions. There is no pneumothorax. PHYSICAL EXAMINATION: GENERAL: 66 yo -- OOB-> Bedside commode doing well HEENT: Unremarkable NECK: Supple, trachea midline. CHEST: Equal chest rise bilaterally HEART: Pulse RRR ABDOMEN: Soft EXTREMITIES: Warm SKIN: See photos ID ASSESSMENT: 66 yo M admit with: 1. Recurrent Sepsis 2 #2 w/low grade temps, VSS, and marked leukocytosis * 10/30/16 bcX (-)24h * s/p Sepsis on admission 09/28/16 w/(+)Lactic acidosis, leukocytosis, low grade temps => RESOLVED 2. Recurrent Complicated GNR MDRO = KP(CRKP) UTI * CRKP is RESISTANT to all ABX ?if this was a clean catch sample as patient is VOIDING in urinal? 3. Acute hypoxic respiratory failure => Stable ons low flow supplemental O2 3L via NC 4. s/p Aspiration Pneumonia= E.coli/ESBL RESPIRATORY CULTURE Final Organism 1 ESCHERICHIA COLI (ESBL) = QUANTITY SCANT GROWTH Organism 2 VERNON ALBICANS = QUANTITY 1+ 5. Acute exacerbation/Chronic COPD = PREDOMINANT LOBULAR EMPHYSEMA * =>s/p IV Solu-Medrol now on Prednisone PO Taper 6. Acute exacerbation CHF on chronic ischemic cardiomyopathy with ejection fraction 25%. 7. Paroxysmal Afib * Indwelling ICD/Pacer onboard 7. Essential HTN 8. Dyslipidemia. 9. s/p Oral Candidiasis 10. Foot injury s/p CAM boot (+ )MRSA Nares ->Bactroban = s/p Vanco IV INVASIVES: ABX ALLERGY: KNDA CURRENT ABX: TOTAL ABX DAY #2 => Merrem ID RECOMMENDATIONS: 1. CRKP UTI is RESISTANT to all ABX => Will DC Merrem and give Fosfomycin PO x1 followed by Colistin IV short course 2. Continue aspiration precautions post extubation/pulmonary toilet . . . Problems: Consultation Date/Type/Reason Admit Date/Time Sep 28, 2016 at 14:41 Initial Consult Date 09/28/16 Type of Consultation: ID Referring Provider: DEVON MUHAMMAD MD Exam/Review of Systems Vital Signs Vitals Vital Signs Date Time Temp Pulse Resp B/P Pulse Ox O2 Delivery O2 Flow Rate FiO2 10/31/16 16:51 98.0 86 20 107/66 96 10/31/16 15:05 3.0 10/31/16 13:12 Nasal Cannula 10/31/16 02:02 32 Intake and Output 10/30/16 10/30/16 10/31/16 15:00 23:00 07:00 Intake Total 600 ml 220 ml 250 ml Balance 600 ml 220 ml 250 ml Results Result Diagram: 10/30/16 0542 10/30/16 0550 Results 24 hrs Laboratory Tests Test 10/30/16 21:50 10/31/16 02:24 10/31/16 07:46 10/31/16 11:24 Bedside Glucose 151 189 167 154 Test 10/31/16 17:09 Bedside Glucose 149 Medications Medications Current Medications IV Flush (NS 10 ml) 10 ml PRN PRN IV IV PROTOCOL; Start 09/28/16 at 14:00 Ondansetron HCl (Zofran Inj) 4 mg Q6H PRN IV NAUSEA AND/OR VOMITING; Start at 15:00 Nitroglycerin (Nitroglycerin (Sl Tab) 0.4 Mg) 1 tab Q5M PRN SL CHEST PAIN; Start 09/28/16 at 15:00 Acetaminophen (Tylenol Liquid) 650 mg Q6H PRN PO PAIN LEVEL 1-3 OR FEVER; Start 09/28/16 at 15:00 Acetaminophen (Tylenol Tab) 650 mg Q6H PRN PO PAIN LEVEL 1-3 OR FEVER Last administered on 10/28/16 09:00; Admin Dose 650 MG; Start 09/28/16 at 15:00 Morphine Sulfate (morphine) 2 mg Q4H PRN IV PAIN LEVEL 7-10 Last administered on 09/29/16 02:30; Admin Dose 2 MG; Start 09/28/16 at 15:00 Lorazepam (Ativan) 1 mg Q2H PRN IV ANXIETY Last administered on 10/29/16 20:56 ; Admin Dose 1 MG; Start 09/28/16 at 15:00 Docusate Sodium (Colace) 100 mg Q12H PRN PO CONSTIPATION; Start 09/28/16 at 15: 00 Famotidine (Pepcid) 20 mg Q12 PO Last administered on 10/31/16 10:17; Admin Dose 20 MG; Start 09/28/16 at 21:00 Aspirin (Aspirin) 81 mg DAILY PO Last administered on 10/31/16 10:18; Admin Dose 81 MG; Start 09/29/16 at 09:00 Atorvastatin Calcium (Lipitor) 10 mg QHS PO Last administered on 10/30/16 21: 53; Admin Dose 10 MG; Start 09/28/16 at 21:00 Tiotropium [place] (Spiriva) 1 inh DAILY INH ; Start 09/28/16 at 16:00; Status Future Hold Mupirocin (Bactroban) 1 applic BID TOP Last administered on 10/31/16 10:14; Admin Dose 1 APPLIC; Start 09/30/16 at 09:00 Diagnostic Test (Pha) (Accucheck) 1 ea 02 XX Last administered on 10/31/16 02: 55; Admin Dose 1 EA; Start 10/05/16 at 02:00 Miscellaneous Information 1 ea NOTE XX ; Start 10/04/16 at 09:00 Glucose (Glutose) 15 gm Q15M PRN PO DECREASED GLUCOSE; Start 10/04/16 at 09:00 Glucose (Glutose) 22.5 gm Q15M PRN PO DECREASED GLUCOSE; Start 10/04/16 at 09: 00 Dextrose (D50w Syringe) 25 ml Q15M PRN IV DECREASED GLUCOSE; Start 10/04/16 at 09:00 Dextrose (D50w Syringe) 50 ml Q15M PRN IV DECREASED GLUCOSE; Start 10/04/16 at 09:00 Glucagon (Glucagen) 1 mg Q15M PRN IM DECREASED GLUCOSE; Start 10/04/16 at 09:00 Glucose (Glutose) 15 gm Q15M PRN BUCCAL DECREASED GLUCOSE; Start 10/04/16 at 09 :00 Metoprolol Tartrate (Lopressor) 5 mg Q4 PRN IV HR>110 Hold SBP<100; Start 10/05 at 19:30 Insulin Glargine (Lantus) 15 unit HS SC Last administered on 10/30/16 22:43; Admin Dose 15 UNIT; Start 10/10/16 at 21:00 Montelukast Sodium (Singulair) 10 mg HS PO Last administered on 10/30/16 21:53 ; Admin Dose 10 MG; Start 10/10/16 at 21:00 Theophylline (Benji-24) 300 mg QHS PO Last administered on 10/30/16 21:53; Admin Dose 300 MG; Start 10/10/16 at 21:00 Apixaban (Eliquis) 5 mg BID PO Last administered on 10/31/16 10:14; Admin Dose 5 MG; Start 10/10/16 at 21:00 Digoxin (Digoxin) 0.125 mg DAILY@13 PO Last administered on 10/31/16 13:09; Admin Dose 0.125 MG; Start 10/12/16 at 13:00 Furosemide (Lasix) 40 mg AM PO Last administered on 10/31/16 10:13; Admin Dose 40 MG; Start 10/25/16 at 09:00 Amiodarone HCl (Cordarone) 200 mg BID PO Last administered on 10/31/16 10:13; Admin Dose 200 MG; Start 10/24/16 at 21:00 Prednisone (Prednisone) 10 mg DAILY PO Last administered on 10/31/16 10:13; Admin Dose 10 MG; Start 10/27/16 at 09:00 Furosemide (Lasix) 40 mg 17 PO Last administered on 10/31/16 17:08; Admin Dose 40 MG; Start 10/26/16 at 17:00 Metoprolol Succinate (Toprol Xl) 50 mg DAILY PO Last administered on 10/30/16 08:21; Admin Dose 50 MG; Start 10/28/16 at 09:00 Metoprolol Succinate 50 mg 50 mg HS PO Last administered on 10/30/16 21:54; Admin Dose 50 MG; Start 10/28/16 at 21:00 Meropenem (Merrem 500 Mg/ 100 ml (Pmx)) 100 ml @ 200 mls/hr Q12 IVPB Last administered on 10/31/16 11:58; Admin Dose 200 MLS/HR; Start 10/30/16 at 12:00 Lisinopril (Zestril) 20 mg DAILY PO Last administered on 10/31/16 10:17; Admin Dose 20 MG; Start 10/31/16 at 10:09 UNIQUE KIRKLAND NP Oct 31, 2016 18:53
[2016-10-31] MEDS ORDERED: FOSFOMYCIN 3 GM PACKET PO ONE (20:30)
[2016-10-31] MEDS: THEOPHYLLINE (SR) 300 MG CAP PO SCH (22:40)
[2016-10-31] MEDS: ATORVASTATIN 10 MG TAB PO SCH (22:40)
[2016-10-31] MEDS: MONTELUKAST 10 MG TAB PO SCH (22:41)
[2016-10-31] MEDS: INSULIN GLARGINE [LANtus] 3 ML PEN SC SCH (23:00)
[2016-11-01] VITALS (10 sets, daily range): BP systolic 97–119; BP diastolic 61–71; PULSE 77–90; RESP 18–20
[2016-11-01] MEDS: COLISTIMETHATE 75 MG in SOD CHLORIDE 0.9% 100 ML IVPB SCH ×3 (00:51→20:48)
[2016-11-01] MEDS: ACCU-CHEK XX SCH (01:49)
[2016-11-01] MEDS: ALBUTEROL/IPRATROPIUM (NEB) 3 ML AMP HHN SCH ×4 (03:10→21:23)
[2016-11-01 06:17] LABS: ADD SCAN DIFF NO
[2016-11-01 06:21] LABS: ABNORMAL IP MESSAGE 1; BASOPHILS % 0.2 % (0.0-2.0); EOSINOPHILS % 0.1 % (0.0-7.0); HEMATOCRIT 29.5 % (42.0-52.0); HEMOGLOBIN 8.9 g/dl (14.0-18.0); LYMPHOCYTES # 0.7 10^3/ul (0.8-2.9); LYMPHOCYTES % 3.7 % (15.0-51.0); MEAN CORPUSCULAR HEMOGLOBIN 31.6 pg (29.0-33.0); MEAN CORPUSCULAR HGB CONC 30.2 g/dl (32.0-37.0); MEAN CORPUSCULAR VOLUME 104.6 fl (82.0-101.0); MEAN PLATELET VOLUME 10.3 fl (7.4-10.4); MONOCYTE # 1.8 10^3/ul (0.3-0.9); MONOCYTES % 9.7 % (0.0-11.0); NEUTROPHIL # 15.2 10^3/ul (1.6-7.5); NEUTROPHILS % 82.7 % (39.0-77.0); NUCLEATED RED BLOOD CELLS% 0.2 /100WBC (0.0-0.0); PLATELET COUNT 210 10^3/UL (140-415); RED BLOOD COUNT 2.82 10^6/ul (4.70-6.10); RED CELL DISTRIBUTION WIDTH 15.4 % (11.5-14.5); WHITE BLOOD COUNT 18.3 10^3/ul (4.8-10.8)
[2016-11-01 06:30] LABS: ALBUMIN 3.1 g/dl (3.3-4.9)
[2016-11-01 06:33] LABS: ALBUMIN/GLOBULIN RATIO 1.14; BILIRUBIN,INDIRECT 0.2 mg/dl (0-1.1); BILIRUBIN,TOTAL 0.2 mg/dl (0.2-1.3); CALCIUM 8.5 mg/dl (8.4-10.2); CREATININE 1.86 mg/dl (0.61-1.24); TOTAL PROTEIN 5.8 g/dl (6.1-8.1)
[2016-11-01] MEDS: INSULIN ASPART [NOVOLOG] 3 ML PEN SC SCH ×7 (08:00→21:00)
[2016-11-01] MEDS: METOPROLOL (XL) 25 MG TAB PO SCH ×2 (09:00→20:49)
[2016-11-01] MEDS: ASPIRIN 81 MG TAB PO SCH (09:20)
[2016-11-01] MEDS: AMIODARONE 200 MG TAB PO SCH ×2 (09:22→20:48)
[2016-11-01] MEDS: APIXABAN 5 MG TABLET PO SCH ×2 (09:23→20:49)
[2016-11-01] MEDS: FAMOTIDINE 20 MG TAB PO SCH ×2 (09:23→20:48)
[2016-11-01] MEDS: FUROSEMIDE 40 MG TAB PO SCH ×2 (09:24→17:10)
[2016-11-01] MEDS: predniSONE 10 MG TAB PO SCH (09:24)
[2016-11-01] MEDS: MUPIROCIN 2% 22 GM OINT TOP SCH ×2 (09:25→20:48)
--- NOTE | 2016-11-01 12:16 | PN ---
Date/Time of Note Date/Time of Note DATE: 11/01/16 TIME: 12:14 Assessment/Plan VTE Prophylaxis VTE Prophylaxis Intervention: other Lines/Catheters [facility] Saline Lock Urinary Cath still in place: No Assessment/Plan Problems: (1) COPD (chronic obstructive pulmonary disease) Status: Acute Comment: His breathing is holding steady on the current medication regimen. Continue care and hope for the ability to find placement form. Qualifiers: COPD type: emphysema Emphysema type: panlobular Qualified Code: J43.1 - Panlobular emphysema (2) Nondisplaced fracture of fourth metatarsal bone, left foot, initial encounter for closed fracture Status: Acute Comment: He is in a boot and stable. (3) Diabetes mellitus type 2 in nonobese Status: Chronic Comment: Well-controlled on current regimen (4) Klebsiella cystitis Status: Acute Comment: This is a multiple drug-resistant organism now on Coly-Mycin. Blood cultures now showing gram-negative rods. While he is hemodynamically stable this is a very concerning feature (5) Hypertension Status: Chronic Comment: Control Qualifiers: Hypertension type: essential hypertension Qualified Code: I10 - Essential hypertension (6) Hyperlipidemia associated with type 2 diabetes mellitus Status: Chronic Comment: Controlled (7) Systolic CHF with reduced left ventricular function, NYHA class 3 Status: Chronic Comment: Adequately compensated with medication Subjective 24 Hr Interval Summary Free Text/Dictation Patient is awake and alert and conversant. Polite and appropriate Constitutional: no complaints (Denies fever chills or sweats) Respiratory: no complaints Cardiovascular: no complaints Gastrointestinal: no complaints Genitourinary: no complaints Exam/Review of Systems Vital Signs Vitals Vital Signs Date Time Temp Pulse Resp B/P Pulse Ox O2 Delivery O2 Flow Rate FiO2 11/01/16 11:56 98.4 82 20 119/71 93 11/01/16 09:33 Nasal Cannula 3.0 10/31/16 02:02 32 Intake and Output 10/31/16 10/31/16 11/01/16 15:00 23:00 07:00 Intake Total 200 ml 250 ml 400 ml Balance 200 ml 250 ml 400 ml Exam Constitutional: alert, oriented Respiratory: clear to auscultation, diminished breath sounds, normal air movement Cardiovascular: nl pulses, regular rate and rhythm Results Result Diagram: 11/01/16 0550 11/01/16 0550 Results 24 hrs Laboratory Tests Test 10/31/16 17:09 10/31/16 22:25 11/01/16 05:50 11/01/16 07:37 Bedside Glucose 149 135 158 Alanine Aminotransferase (ALT/SGPT) 22 Albumin 3.1 L Albumin/Globulin Ratio 1.14 Alkaline Phosphatase 64 Anion Gap 14 Aspartate Amino Transf (AST/SGOT) 19 Basophils # 0.0 Basophils % 0.2 Blood Urea Nitrogen 55 H Calcium Level 8.5 Carbon Dioxide Level 36 H Chloride Level 93 L Creatinine 1.86 H Direct Bilirubin 0.00 Eosinophils # 0.0 Eosinophils % 0.1 Globulin 2.70 Glucose Level 151 Hematocrit 29.5 L Hemoglobin 8.9 L Indirect Bilirubin 0.2 Lymphocytes # 0.7 L Lymphocytes % 3.7 L Mean Corpuscular Hemoglobin 31.6 Mean Corpuscular Hemoglobin Concent 30.2 L Mean Corpuscular Volume 104.6 H Mean Platelet Volume 10.3 Monocytes # 1.8 H Monocytes % 9.7 Neutrophils # 15.2 H Neutrophils % 82.7 H Nucleated Red Blood Cells # 0.0 Nucleated Red Blood Cells % 0.2 H Platelet Count 210 Potassium Level 4.0 Red Blood Count 2.82 L Red Cell Distribution Width 15.4 H Sodium Level 139 Total Bilirubin 0.2 Total Protein 5.8 L White Blood Count 18.3 H Test 11/01/16 11:47 Bedside Glucose 154 Medications Medications Current Medications IV Flush (NS 10 ml) 10 ml PRN PRN IV IV PROTOCOL; Start 09/28/16 at 14:00 Ondansetron HCl (Zofran Inj) 4 mg Q6H PRN IV NAUSEA AND/OR VOMITING; Start at 15:00 Nitroglycerin (Nitroglycerin (Sl Tab) 0.4 Mg) 1 tab Q5M PRN SL CHEST PAIN; Start 09/28/16 at 15:00 Acetaminophen (Tylenol Liquid) 650 mg Q6H PRN PO PAIN LEVEL 1-3 OR FEVER; Start 09/28/16 at 15:00 Acetaminophen (Tylenol Tab) 650 mg Q6H PRN PO PAIN LEVEL 1-3 OR FEVER Last administered on 10/28/16t 09:00; Admin Dose 650 MG; Start 09/28/16 at 15:00 Morphine Sulfate (morphine) 2 mg Q4H PRN IV PAIN LEVEL 7-10 Last administered on 09/29/16 02:30; Admin Dose 2 MG; Start 09/28/16 at 15:00 Lorazepam (Ativan) 1 mg Q2H PRN IV ANXIETY Last administered on 10/29/16 20:56 ; Admin Dose 1 MG; Start 09/28/16 at 15:00 Docusate Sodium (Colace) 100 mg Q12H PRN PO CONSTIPATION; Start 09/28/16 at 15: 00 Famotidine (Pepcid) 20 mg Q12 PO Last administered on 11/01/16 09:23; Admin Dose 20 MG; Start 09/28/16 at 21:00 Aspirin (Aspirin) 81 mg DAILY PO Last administered on 11/01/16 09:20; Admin Dose 81 MG; Start 09/29/16 at 09:00 Atorvastatin Calcium (Lipitor) 10 mg QHS PO Last administered on 10/31/16 22: 40; Admin Dose 10 MG; Start 09/28/16 at 21:00 Tiotropium [place] (Spiriva) 1 inh DAILY INH ; Start 09/28/16 at 16:00; Status Future Hold Mupirocin (Bactroban) 1 applic BID TOP Last administered on 11/01/16 09:25; Admin Dose 1 APPLIC; Start 09/30/16 at 09:00 Diagnostic Test (Pha) (Accucheck) 1 ea 02 XX Last administered on 10/31/16 02: 55; Admin Dose 1 EA; Start 10/05/16 at 02:00 Miscellaneous Information 1 ea NOTE XX ; Start 10/04/16 at 09:00 Glucose (Glutose) 15 gm Q15M PRN PO DECREASED GLUCOSE; Start 10/04/16 at 09:00 Glucose (Glutose) 22.5 gm Q15M PRN PO DECREASED GLUCOSE; Start 10/04/16 at 09: 00 Dextrose (D50w Syringe) 25 ml Q15M PRN IV DECREASED GLUCOSE; Start 10/04/16 at 09:00 Dextrose (D50w Syringe) 50 ml Q15M PRN IV DECREASED GLUCOSE; Start 10/04/16 at 09:00 Glucagon (Glucagen) 1 mg Q15M PRN IM DECREASED GLUCOSE; Start 10/04/16 at 09:00 Glucose (Glutose) 15 gm Q15M PRN BUCCAL DECREASED GLUCOSE; Start 10/04/16 at 09 :00 Metoprolol Tartrate (Lopressor) 5 mg Q4 PRN IV HR>110 Hold SBP<100; Start 10/05 at 19:30 Insulin Glargine (Lantus) 15 unit HS SC Last administered on 10/31/16 23:00; Admin Dose 15 UNIT; Start 10/10/16 at 21:00 Montelukast Sodium (Singulair) 10 mg HS PO Last administered on 10/31/16 22:41 ; Admin Dose 10 MG; Start 10/10/16 at 21:00 Theophylline (Benji-24) 300 mg QHS PO Last administered on 10/31/16 22:40; Admin Dose 300 MG; Start 10/10/16 at 21:00 Apixaban (Eliquis) 5 mg BID PO Last administered on 11/01/16 09:23; Admin Dose 5 MG; Start 10/10/16 at 21:00 Digoxin (Digoxin) 0.125 mg DAILY@13 PO Last administered on 10/31/16 13:09; Admin Dose 0.125 MG; Start 10/12/16 at 13:00 Furosemide (Lasix) 40 mg AM PO Last administered on 11/01/16 09:24; Admin Dose 40 MG; Start 10/25/16 at 09:00 Amiodarone HCl (Cordarone) 200 mg BID PO Last administered on 11/01/16 09:22; Admin Dose 200 MG; Start 10/24/16 at 21:00 Prednisone (Prednisone) 10 mg DAILY PO Last administered on 11/01/16 09:24; Admin Dose 10 MG; Start 10/27/16 at 09:00 Furosemide (Lasix) 40 mg 17 PO Last administered on 10/31/16 17:08; Admin Dose 40 MG; Start 10/26/16 at 17:00 Metoprolol Succinate (Toprol Xl) 50 mg DAILY PO Last administered on 10/30/16 08:21; Admin Dose 50 MG; Start 10/28/16 at 09:00 Metoprolol Succinate (Toprol Xl) 50 mg HS PO Last administered on 10/31/16 22: 39; Admin Dose 50 MG; Start 10/28/16 at 21:00 Lisinopril 20 mg 20 mg DAILY PO Last administered on 10/31/16 10:17; Admin Dose 20 MG; Start 10/31/16 at 10:09 Colistimethate Sodium/Sodium Chloride (Coly-Mycin/NS) 100 ml @ 200 mls/hr Q12 IVPB Last administered on 11/01/16 10:16; Admin Dose 200 MLS/HR; Start at 21:00; Stop 11/03/16 at 12:00 DEVON MUHAMMAD MD Nov 01, 2016 12:16
[2016-11-01] MEDS: DIGOXIN 0.125 MG TAB PO SCH (13:37)
--- NOTE | 2016-11-01 16:52 | CONS ---
Date/Time of Note Date/Time of Note DATE: 11/01/16 TIME: 16:48 Assessment/Plan Assessment/Plan Additional Assessment/Plan 1. Atrial fibrillation with rapid ventricular response- improved HR, SINUS NOW - RATE CONTROLLED. 2. Congestive heart failure, systolic, acute on chronic- con't to keep euvolemic. BETTER NOW. 3. History of cardiomyopathy with decreased left ventricular ejection fraction 20% to 25% per chart biopsy. Stable. 4. Shortness of breath- improved - con't to Rx in conjunction with pulmonary team. 5. Status post hypercapnic respiratory failure, status post extubation. 6. Chronic obstructive pulmonary disease- on Rx now. 7. Hypertension. 8. Dyslipidemia. 9. History of automatic implantable cardioverter-defibrillator with possible discharge.-s/p interrogation with ICD shock for uncontrolled rapid AF. NOW in SINUS. 10. Pneumonia. 11.Positive troponin-minimal with no sig uptrend 12.Dysuria Consultation Date/Type/Reason Admit Date/Time Sep 28, 2016 at 14:41 Initial Consult Date 09/28/16 Type of Consultation: ID Referring Provider: DEVON MUHAMMAD MD 24 HR Interval Summary Free Text/Dictation NO acute change - BP stable - sinus rate now. Better SOB. ROS: No fever, no chills, no nausea, no vomiting, no diarrhea/constipation No recent weight changes No chest pain, no PND, no orthopnea No dizziness, blurred vision No thirst, no heat or cold intolerance (SOB better now) Exam/Review of Systems Vital Signs Vitals Vital Signs Date Time Temp Pulse Resp B/P Pulse Ox O2 Delivery O2 Flow Rate FiO2 11/01/16 16:46 97.8 82 20 106/69 90 11/01/16 13:52 Nasal Cannula 3.0 10/31/16 02:02 32 Intake and Output 10/31/16 10/31/16 11/01/16 15:00 23:00 07:00 Intake Total 200 ml 250 ml 400 ml Balance 200 ml 250 ml 400 ml Exam General: WN/WD/NAD, AOx 2-3 HEENT: Unicetric/atraumatic/EOMI (follow commands) NECK: JVD elevated, no thyromegaly Lymph: no lymphadenopathy HEART: regular with no S3, II/ systolic murmur at apex LUNGS: Coarse sounds ABD: soft, NT, ND, +BS : Intact Neuro: non focal SKIN: chronic changes EXT: trace edema Results Result Diagram: 11/01/16 0550 11/01/16 0550 Results 24 hrs Laboratory Tests Test 10/31/16 17:09 10/31/16 22:25 11/01/16 05:50 11/01/16 07:37 Bedside Glucose 149 135 158 Alanine Aminotransferase (ALT/SGPT) 22 Albumin 3.1 L Albumin/Globulin Ratio 1.14 Alkaline Phosphatase 64 Anion Gap 14 Aspartate Amino Transf (AST/SGOT) 19 Basophils # 0.0 Basophils % 0.2 Blood Urea Nitrogen 55 H Calcium Level 8.5 Carbon Dioxide Level 36 H Chloride Level 93 L Creatinine 1.86 H Direct Bilirubin 0.00 Eosinophils # 0.0 Eosinophils % 0.1 Globulin 2.70 Glucose Level 151 Hematocrit 29.5 L Hemoglobin 8.9 L Indirect Bilirubin 0.2 Lymphocytes # 0.7 L Lymphocytes % 3.7 L Mean Corpuscular Hemoglobin 31.6 Mean Corpuscular Hemoglobin Concent 30.2 L Mean Corpuscular Volume 104.6 H Mean Platelet Volume 10.3 Monocytes # 1.8 H Monocytes % 9.7 Neutrophils # 15.2 H Neutrophils % 82.7 H Nucleated Red Blood Cells # 0.0 Nucleated Red Blood Cells % 0.2 H Platelet Count 210 Potassium Level 4.0 Red Blood Count 2.82 L Red Cell Distribution Width 15.4 H Sodium Level 139 Total Bilirubin 0.2 Total Protein 5.8 L White Blood Count 18.3 H Test 11/01/16 11:47 Bedside Glucose 154 Medications Medications Current Medications IV Flush (NS 10 ml) 10 ml PRN PRN IV IV PROTOCOL; Start 09/28/16 at 14:00 Ondansetron HCl (Zofran Inj) 4 mg Q6H PRN IV NAUSEA AND/OR VOMITING; Start at 15:00 Nitroglycerin (Nitroglycerin (Sl Tab) 0.4 Mg) 1 tab Q5M PRN SL CHEST PAIN; Start 09/28/16 at 15:00 Acetaminophen (Tylenol Liquid) 650 mg Q6H PRN PO PAIN LEVEL 1-3 OR FEVER; Start 09/28/16 at 15:00 Acetaminophen (Tylenol Tab) 650 mg Q6H PRN PO PAIN LEVEL 1-3 OR FEVER Last administered on 10/28/16t 09:00; Admin Dose 650 MG; Start 09/28/16 at 15:00 Morphine Sulfate (morphine) 2 mg Q4H PRN IV PAIN LEVEL 7-10 Last administered on 09/29/16 02:30; Admin Dose 2 MG; Start 09/28/16 at 15:00 Lorazepam (Ativan) 1 mg Q2H PRN IV ANXIETY Last administered on 10/29/16 20:56 ; Admin Dose 1 MG; Start 09/28/16 at 15:00 Docusate Sodium (Colace) 100 mg Q12H PRN PO CONSTIPATION; Start 09/28/16 at 15: 00 Famotidine (Pepcid) 20 mg Q12 PO Last administered on 11/01/16 09:23; Admin Dose 20 MG; Start 09/28/16 at 21:00 Aspirin (Aspirin) 81 mg DAILY PO Last administered on 11/01/16 09:20; Admin Dose 81 MG; Start 09/29/16 at 09:00 Atorvastatin Calcium (Lipitor) 10 mg QHS PO Last administered on 10/31/16 22: 40; Admin Dose 10 MG; Start 09/28/16 at 21:00 Tiotropium [place] (Spiriva) 1 inh DAILY INH ; Start 09/28/16 at 16:00; Status Future Hold Mupirocin (Bactroban) 1 applic BID TOP Last administered on 11/01/16 09:25; Admin Dose 1 APPLIC; Start 09/30/16 at 09:00 Diagnostic Test (Pha) (Accucheck) 1 ea 02 XX Last administered on 10/31/16 02: 55; Admin Dose 1 EA; Start 10/05/16 at 02:00 Miscellaneous Information 1 ea NOTE XX ; Start 10/04/16 at 09:00 Glucose (Glutose) 15 gm Q15M PRN PO DECREASED GLUCOSE; Start 10/04/16 at 09:00 Glucose (Glutose) 22.5 gm Q15M PRN PO DECREASED GLUCOSE; Start 10/04/16 at 09: 00 Dextrose (D50w Syringe) 25 ml Q15M PRN IV DECREASED GLUCOSE; Start 10/04/16 at 09:00 Dextrose (D50w Syringe) 50 ml Q15M PRN IV DECREASED GLUCOSE; Start 10/04/16 at 09:00 Glucagon (Glucagen) 1 mg Q15M PRN IM DECREASED GLUCOSE; Start 10/04/16 at 09:00 Glucose (Glutose) 15 gm Q15M PRN BUCCAL DECREASED GLUCOSE; Start 10/04/16 at 09 :00 Metoprolol Tartrate (Lopressor) 5 mg Q4 PRN IV HR>110 Hold SBP<100; Start 10/05 at 19:30 Insulin Glargine (Lantus) 15 unit HS SC Last administered on 10/31/16 23:00; Admin Dose 15 UNIT; Start 10/10/16 at 21:00 Montelukast Sodium (Singulair) 10 mg HS PO Last administered on 10/31/16 22:41 ; Admin Dose 10 MG; Start 10/10/16 at 21:00 Theophylline (Benji-24) 300 mg QHS PO Last administered on 10/31/16 22:40; Admin Dose 300 MG; Start 10/10/16 at 21:00 Apixaban (Eliquis) 5 mg BID PO Last administered on 11/01/16 09:23; Admin Dose 5 MG; Start 10/10/16 at 21:00 Digoxin (Digoxin) 0.125 mg DAILY@13 PO Last administered on 11/01/16 13:37; Admin Dose 0.125 MG; Start 10/12/16 at 13:00 Furosemide (Lasix) 40 mg AM PO Last administered on 11/01/16 09:24; Admin Dose 40 MG; Start 10/25/16 at 09:00 Amiodarone HCl (Cordarone) 200 mg BID PO Last administered on 11/01/16 09:22; Admin Dose 200 MG; Start 10/24/16 at 21:00 Prednisone (Prednisone) 10 mg DAILY PO Last administered on 11/01/16 09:24; Admin Dose 10 MG; Start 10/27/16 at 09:00 Furosemide (Lasix) 40 mg 17 PO Last administered on 10/31/16 17:08; Admin Dose 40 MG; Start 10/26/16 at 17:00 Metoprolol Succinate (Toprol Xl) 50 mg DAILY PO Last administered on 10/30/16 08:21; Admin Dose 50 MG; Start 10/28/16 at 09:00 Metoprolol Succinate (Toprol Xl) 50 mg HS PO Last administered on 10/31/16 22: 39; Admin Dose 50 MG; Start 10/28/16 at 21:00 Lisinopril 20 mg 20 mg DAILY PO Last administered on 10/31/16 10:17; Admin Dose 20 MG; Start 10/31/16 at 10:09 Colistimethate Sodium/Sodium Chloride (Coly-Mycin/NS) 100 ml @ 200 mls/hr Q12 IVPB Last administered on 11/01/16 10:16; Admin Dose 200 MLS/HR; Start at 21:00; Stop 11/03/16 at 12:00 RAYSHAWN DUNN MD Nov 01, 2016 16:52
[2016-11-01] MEDS: predniSONE 2.5 MG TAB PO SCH (17:10)
[2016-11-01] MEDS: ATORVASTATIN 10 MG TAB PO SCH (20:48)
[2016-11-01] MEDS: THEOPHYLLINE (SR) 300 MG CAP PO SCH (20:49)
[2016-11-01] MEDS: MONTELUKAST 10 MG TAB PO SCH (20:50)
--- NOTE | 2016-11-01 21:03 | CONS ---
Date/Time of Note Date/Time of Note DATE: 11/01/16 TIME: 20:50 Assessment/Plan Assessment/Plan Chief Complaint/Hosp Course ID PROGRESS NOTE TOTAL ABX DAY #2 Colistin IV, s/p Fosfomycin x1 10/31 pm * => CRKP UTI is RESISTANT to all ABX * => Merrem DC'd 10/31 ->s/p Fosfomycin PO x1 10/31 pm followed by Colistin IV short course ordered 24H INTERVAL SUMMARY * Lethargy persisting * BCX (+)GNR w/ WBC down to 18.3 today from 20.3 today, AFEBRILE TODAY -- low grade Tmax 99.4 noted yesterday Juan: 10/30/16-1524 Rcvd: 10/30/16-1536 Source: BLOOD Sp Descrip: Microbiology BLOOD CULTURE Preliminary BCULT GRAM BOTTLE 1 Gram negative rods . seen on gram stain of the broth Organism 1 GRAM NEGATIVE HEIDI CRITICAL TEST VALUE BTL 1 . PHONED TO & READ BACK BY SUDHA KEYES AT 1200 11/01/2016 BY HAIR. * Voiding in urinal -> Repeat Urine 10/28/16: URINE CULTURE Final Organism 1 KLEB PNEUMONIAE CARBAPENEMASE COLONY COUNT >100,000 CFU/ml . MULTI DRUG RESISTANT ORGANISM PHYSICAL EXAMINATION: GENERAL: 66 yo - VSS, NAD HEENT: Unremarkable NECK: Supple, trachea midline. CHEST: Equal chest rise bilaterally HEART: Pulse RRR ABDOMEN: Soft EXTREMITIES: Warm SKIN: See photos ID ASSESSMENT: 66 yo M admit with: 1. Recurrent GNR Sepsis 2/2 #2 w/low grade temps, VSS, and marked leukocytosis => STARTED ON COLISTIN IV FOR CRKP UTI * 10/30/16 BCx (+)GNR 1/2 bottles => QUERY PICC LINE sepsis vs UROSEPSIS * s/p Sepsis on admission 09/28/16 w/(+)Lactic acidosis, leukocytosis, low grade temps => RESOLVED 2. Recurrent Complicated GNR MDRO = KP(CRKP) UTI * CRKP is RESISTANT to all ABX => Started on Colistin IV 3. Acute hypoxic respiratory failure => Stable ons low flow supplemental O2 3L via NC 4. s/p Aspiration Pneumonia= E.coli/ESBL RESPIRATORY CULTURE Final Organism 1 ESCHERICHIA COLI (ESBL) = QUANTITY SCANT GROWTH Organism 2 VERNON ALBICANS = QUANTITY 1+ 5. Acute exacerbation/Chronic COPD = PREDOMINANT LOBULAR EMPHYSEMA * =>s/p IV Solu-Medrol now on Prednisone PO Taper 6. Acute exacerbation CHF on chronic ischemic cardiomyopathy with ejection fraction 25%. 7. Paroxysmal Afib * Indwelling ICD/Pacer onboard 7. Essential HTN 8. Dyslipidemia. 9. s/p Oral Candidiasis 10. Foot injury s/p CAM boot (+ )MRSA Nares ->Bactroban = s/p Vanco IV INVASIVES: PACER, PIV (left hand) ABX ALLERGY: KNDA CURRENT ABX: TOTAL ABX DAY #2 Colistin IV, s/p Fosfomycin x1 10/31 pm * CRKP UTI is RESISTANT to all ABX : ( * Merrem DC'd 10/31 ->s/p Fosfomycin PO x1 25 pm followed by Colistin IV short course Merrem ID RECOMMENDATIONS: 1. CRKP UTI is RESISTANT to all ABX => Will DC Merrem and give Fosfomycin PO x1 followed by Colistin IV short course * NEW (+)GNR BCx 1/2 bottles-> f/u on final ID GNR and make further recs on 14 day IV ABX course * Repeat BCX ordered * Would avoid PICC in presence of sepsis + indwelling pacer => prefer PIV vs femoral or IJ TLC on opposite side of pacer wires to avoid cross-contamination. 2. Continue aspiration precautions post extubation/pulmonary toilet . . . Problems: Consultation Date/Type/Reason Admit Date/Time Sep 28, 2016 at 14:41 Initial Consult Date 09/28/16 Type of Consultation: ID Referring Provider: DEVON MUHAMMAD MD Exam/Review of Systems Vital Signs Vitals Vital Signs Date Time Temp Pulse Resp B/P Pulse Ox O2 Delivery O2 Flow Rate FiO2 11/01/16 20:18 98.2 76 18 115/67 99 11/01/16 13:52 Nasal Cannula 3.0 10/31/16 02:02 32 Intake and Output 10/31/16 10/31/16 11/01/16 15:00 23:00 07:00 Intake Total 200 ml 250 ml 400 ml Balance 200 ml 250 ml 400 ml Results Result Diagram: 11/01/16 0550 11/01/16 0550 Results 24 hrs Laboratory Tests Test 10/31/16 22:25 11/01/16 05:50 11/01/16 07:37 11/01/16 11:47 Bedside Glucose 135 158 154 Alanine Aminotransferase (ALT/SGPT) 22 Albumin 3.1 L Albumin/Globulin Ratio 1.14 Alkaline Phosphatase 64 Anion Gap 14 Aspartate Amino Transf (AST/SGOT) 19 Basophils # 0.0 Basophils % 0.2 Blood Urea Nitrogen 55 H Calcium Level 8.5 Carbon Dioxide Level 36 H Chloride Level 93 L Creatinine 1.86 H Direct Bilirubin 0.00 Eosinophils # 0.0 Eosinophils % 0.1 Globulin 2.70 Glucose Level 151 Hematocrit 29.5 L Hemoglobin 8.9 L Indirect Bilirubin 0.2 Lymphocytes # 0.7 L Lymphocytes % 3.7 L Mean Corpuscular Hemoglobin 31.6 Mean Corpuscular Hemoglobin Concent 30.2 L Mean Corpuscular Volume 104.6 H Mean Platelet Volume 10.3 Monocytes # 1.8 H Monocytes % 9.7 Neutrophils # 15.2 H Neutrophils % 82.7 H Nucleated Red Blood Cells # 0.0 Nucleated Red Blood Cells % 0.2 H Platelet Count 210 Potassium Level 4.0 Red Blood Count 2.82 L Red Cell Distribution Width 15.4 H Sodium Level 139 Total Bilirubin 0.2 Total Protein 5.8 L White Blood Count 18.3 H Test 11/01/16 17:12 Bedside Glucose 177 Medications Medications Current Medications IV Flush (NS 10 ml) 10 ml PRN PRN IV IV PROTOCOL; Start 09/28/16 at 14:00 Ondansetron HCl (Zofran Inj) 4 mg Q6H PRN IV NAUSEA AND/OR VOMITING; Start at 15:00 Nitroglycerin (Nitroglycerin (Sl Tab) 0.4 Mg) 1 tab Q5M PRN SL CHEST PAIN; Start 09/28/16 at 15:00 Acetaminophen (Tylenol Liquid) 650 mg Q6H PRN PO PAIN LEVEL 1-3 OR FEVER; Start 09/28/16 at 15:00 Acetaminophen (Tylenol Tab) 650 mg Q6H PRN PO PAIN LEVEL 1-3 OR FEVER Last administered on 10/28/16 09:00; Admin Dose 650 MG; Start 09/28/16 at 15:00 Morphine Sulfate (morphine) 2 mg Q4H PRN IV PAIN LEVEL 7-10 Last administered on 09/29/16 02:30; Admin Dose 2 MG; Start 09/28/16 at 15:00 Lorazepam (Ativan) 1 mg Q2H PRN IV ANXIETY Last administered on 10/29/16 20:56 ; Admin Dose 1 MG; Start 09/28/16 at 15:00 Docusate Sodium (Colace) 100 mg Q12H PRN PO CONSTIPATION; Start 09/28/16 at 15: 00 Famotidine (Pepcid) 20 mg Q12 PO Last administered on 11/01/16 09:23; Admin Dose 20 MG; Start 09/28/16 at 21:00 Aspirin (Aspirin) 81 mg DAILY PO Last administered on 11/01/16 09:20; Admin Dose 81 MG; Start 09/29/16 at 09:00 Atorvastatin Calcium (Lipitor) 10 mg QHS PO Last administered on 10/31/16 22: 40; Admin Dose 10 MG; Start 09/28/16 at 21:00 Tiotropium [place] (Spiriva) 1 inh DAILY INH ; Start 09/28/16 at 16:00; Status Future Hold Mupirocin (Bactroban) 1 applic BID TOP Last administered on 11/01/16 09:25; Admin Dose 1 APPLIC; Start 09/30/16 at 09:00 Diagnostic Test (Pha) (Accucheck) 1 ea 02 XX Last administered on 10/31/16 02: 55; Admin Dose 1 EA; Start 10/05/16 at 02:00 Miscellaneous Information 1 ea NOTE XX ; Start 10/04/16 at 09:00 Glucose (Glutose) 15 gm Q15M PRN PO DECREASED GLUCOSE; Start 10/04/16 at 09:00 Glucose (Glutose) 22.5 gm Q15M PRN PO DECREASED GLUCOSE; Start 10/04/16 at 09: 00 Dextrose (D50w Syringe) 25 ml Q15M PRN IV DECREASED GLUCOSE; Start 10/04/16 at 09:00 Dextrose (D50w Syringe) 50 ml Q15M PRN IV DECREASED GLUCOSE; Start 10/04/16 at 09:00 Glucagon (Glucagen) 1 mg Q15M PRN IM DECREASED GLUCOSE; Start 10/04/16 at 09:00 Glucose (Glutose) 15 gm Q15M PRN BUCCAL DECREASED GLUCOSE; Start 10/04/16 at 09 :00 Metoprolol Tartrate (Lopressor) 5 mg Q4 PRN IV HR>110 Hold SBP<100; Start 10/05 at 19:30 Insulin Glargine (Lantus) 15 unit HS SC Last administered on 10/31/16 23:00; Admin Dose 15 UNIT; Start 10/10/16 at 21:00 Montelukast Sodium (Singulair) 10 mg HS PO Last administered on 10/31/16 22:41 ; Admin Dose 10 MG; Start 10/10/16 at 21:00 Theophylline (Benji-24) 300 mg QHS PO Last administered on 10/31/16 22:40; Admin Dose 300 MG; Start 10/10/16 at 21:00 Apixaban (Eliquis) 5 mg BID PO Last administered on 11/01/16 09:23; Admin Dose 5 MG; Start 10/10/16 at 21:00 Digoxin (Digoxin) 0.125 mg DAILY@13 PO Last administered on 11/01/16 13:37; Admin Dose 0.125 MG; Start 10/12/16 at 13:00 Furosemide (Lasix) 40 mg AM PO Last administered on 11/01/16 09:24; Admin Dose 40 MG; Start 10/25/16 at 09:00 Amiodarone HCl (Cordarone) 200 mg BID PO Last administered on 11/01/16 09:22; Admin Dose 200 MG; Start 10/24/16 at 21:00 Prednisone (Prednisone) 10 mg DAILY PO Last administered on 11/01/16 09:24; Admin Dose 10 MG; Start 10/27/16 at 09:00 Furosemide (Lasix) 40 mg 17 PO Last administered on 11/01/16 17:10; Admin Dose 40 MG; Start 10/26/16 at 17:00 Metoprolol Succinate (Toprol Xl) 50 mg DAILY PO Last administered on 10/30/16 08:21; Admin Dose 50 MG; Start 10/28/16 at 09:00 Metoprolol Succinate (Toprol Xl) 50 mg HS PO Last administered on 10/31/16 22: 39; Admin Dose 50 MG; Start 10/28/16 at 21:00 Lisinopril 20 mg 20 mg DAILY PO Last administered on 10/31/16 10:17; Admin Dose 20 MG; Start 10/31/16 at 10:09 Colistimethate Sodium/Sodium Chloride (Coly-Mycin/NS) 100 ml @ 200 mls/hr Q12 IVPB Last administered on 11/01/16 10:16; Admin Dose 200 MLS/HR; Start at 21:00; Stop 11/03/16 at 12:00 UNIQUE KIRKLAND NP Nov 01, 2016 21:01
[2016-11-01] MEDS: INSULIN GLARGINE [LANtus] 3 ML PEN SC SCH (21:16)
[2016-11-02] VITALS (11 sets, daily range): BP systolic 103–141; BP diastolic 57–74; PULSE 60–89; RESP 18–20
[2016-11-02] MEDS: ACCU-CHEK XX SCH (02:00)
[2016-11-02] MEDS: ALBUTEROL/IPRATROPIUM (NEB) 3 ML AMP HHN SCH ×4 (02:30→20:08)
[2016-11-02] MEDS: INSULIN ASPART [NOVOLOG] 3 ML PEN SC SCH ×7 (08:00→21:44)
--- NOTE | 2016-11-02 08:40 | CONS ---
Date/Time of Note Date/Time of Note DATE: 11/02/16 TIME: 08:38 Assessment/Plan Assessment/Plan Additional Assessment/Plan 1. Parox Atrial fibrillation (with RVR) - improved HR, SINUS NOW - RATE CONTROLLED. 2. Congestive heart failure, systolic, acute on chronic- con't to keep euvolemic. BETTER NOW. 3. History of cardiomyopathy with decreased left ventricular ejection fraction 20% to 25% per chart biopsy. Stable. 4. Shortness of breath- improved - con't to Rx in conjunction with pulmonary team. IMPROVED with RX. 5. Status post hypercapnic respiratory failure, status post extubation. 6. Chronic obstructive pulmonary disease- on Rx now. NO wheezing now. 7. Hypertension. 8. Dyslipidemia. 9. History of automatic implantable cardioverter-defibrillator with possible discharge.-s/p interrogation with ICD shock for uncontrolled rapid AF. NOW in SINUS. 10. Pneumonia. 11.Positive troponin-minimal with no sig uptrend 12.Dysuria Consultation Date/Type/Reason Admit Date/Time Sep 28, 2016 at 14:41 Initial Consult Date 09/28/16 Type of Consultation: ID Referring Provider: DEVON MUHAMMAD MD 24 HR Interval Summary Free Text/Dictation NO acute change - in sinus rhythm now. ROS: No fever, no chills, no nausea, no vomiting, no diarrhea/constipation No recent weight changes No chest pain, no PND, no orthopnea No dizziness, blurred vision No thirst, no heat or cold intolerance Exam/Review of Systems Vital Signs Vitals Vital Signs Date Time Temp Pulse Resp B/P Pulse Ox O2 Delivery O2 Flow Rate FiO2 11/02/16 08:25 99.5 78 19 103/57 98 11/02/16 02:43 Nasal Cannula 3.0 10/31/16 02:02 32 Intake and Output 11/01/16 11/01/16 11/02/16 15:00 23:00 07:00 Intake Total 620 ml 350 ml Balance 620 ml 350 ml Exam General: WN/WD/NAD, AOx 2-3 HEENT: Unicetric/atraumatic/EOMI (follow commands) NECK: JVD elevated, no thyromegaly Lymph: no lymphadenopathy HEART: regular with no S3, II/ systolic murmur at apex LUNGS: Coarse sounds ABD: soft, NT, ND, +BS : Intact Neuro: non focal SKIN: chronic changes EXT: trace edema Results Result Diagram: 11/01/16 0550 11/01/16 0550 Results 24 hrs Laboratory Tests Test 11/01/16 11:47 11/01/16 17:12 11/01/16 21:11 11/02/16 07:52 Bedside Glucose 154 177 152 123 Medications Medications Current Medications IV Flush (NS 10 ml) 10 ml PRN PRN IV IV PROTOCOL; Start 09/28/16 at 14:00 Ondansetron HCl (Zofran Inj) 4 mg Q6H PRN IV NAUSEA AND/OR VOMITING; Start at 15:00 Nitroglycerin (Nitroglycerin (Sl Tab) 0.4 Mg) 1 tab Q5M PRN SL CHEST PAIN; Start 09/28/16 at 15:00 Acetaminophen (Tylenol Liquid) 650 mg Q6H PRN PO PAIN LEVEL 1-3 OR FEVER; Start 09/28/16 at 15:00 Acetaminophen (Tylenol Tab) 650 mg Q6H PRN PO PAIN LEVEL 1-3 OR FEVER Last administered on 10/28/16 09:00; Admin Dose 650 MG; Start 09/28/16 at 15:00 Morphine Sulfate (morphine) 2 mg Q4H PRN IV PAIN LEVEL 7-10 Last administered on 09/29/16 02:30; Admin Dose 2 MG; Start 09/28/16 at 15:00 Lorazepam (Ativan) 1 mg Q2H PRN IV ANXIETY Last administered on 10/29/16 20:56 ; Admin Dose 1 MG; Start 09/28/16 at 15:00 Docusate Sodium (Colace) 100 mg Q12H PRN PO CONSTIPATION; Start 09/28/16 at 15: 00 Famotidine (Pepcid) 20 mg Q12 PO Last administered on 11/01/16 20:48; Admin Dose 20 MG; Start 09/28/16 at 21:00 Aspirin (Aspirin) 81 mg DAILY PO Last administered on 11/01/16 09:20; Admin Dose 81 MG; Start 09/29/16 at 09:00 Atorvastatin Calcium (Lipitor) 10 mg QHS PO Last administered on 11/01/16 20: 48; Admin Dose 10 MG; Start 09/28/16 at 21:00 Tiotropium [place] (Spiriva) 1 inh DAILY INH ; Start 09/28/16 at 16:00; Status Future Hold Mupirocin (Bactroban) 1 applic BID TOP Last administered on 11/01/16 20:48; Admin Dose 1 APPLIC; Start 09/30/16 at 09:00 Diagnostic Test (Pha) (Accucheck) 1 ea 02 XX Last administered on 10/31/16 02: 55; Admin Dose 1 EA; Start 10/05/16 at 02:00 Miscellaneous Information 1 ea NOTE XX ; Start 10/04/16 at 09:00 Glucose (Glutose) 15 gm Q15M PRN PO DECREASED GLUCOSE; Start 10/04/16 at 09:00 Glucose (Glutose) 22.5 gm Q15M PRN PO DECREASED GLUCOSE; Start 10/04/16 at 09: 00 Dextrose (D50w Syringe) 25 ml Q15M PRN IV DECREASED GLUCOSE; Start 10/04/16 at 09:00 Dextrose (D50w Syringe) 50 ml Q15M PRN IV DECREASED GLUCOSE; Start 10/04/16 at 09:00 Glucagon (Glucagen) 1 mg Q15M PRN IM DECREASED GLUCOSE; Start 10/04/16 at 09:00 Glucose (Glutose) 15 gm Q15M PRN BUCCAL DECREASED GLUCOSE; Start 10/04/16 at 09 :00 Metoprolol Tartrate (Lopressor) 5 mg Q4 PRN IV HR>110 Hold SBP<100; Start 10/05 at 19:30 Insulin Glargine (Lantus) 15 unit HS SC Last administered on 11/01/16 21:16; Admin Dose 15 UNIT; Start 10/10/16 at 21:00 Montelukast Sodium (Singulair) 10 mg HS PO Last administered on 11/01/16 20:50 ; Admin Dose 10 MG; Start 10/10/16 at 21:00 Theophylline (Benji-24) 300 mg QHS PO Last administered on 11/01/16 20:49; Admin Dose 300 MG; Start 10/10/16 at 21:00 Apixaban (Eliquis) 5 mg BID PO Last administered on 11/01/16 20:49; Admin Dose 5 MG; Start 10/10/16 at 21:00 Digoxin (Digoxin) 0.125 mg DAILY@13 PO Last administered on 11/01/16 13:37; Admin Dose 0.125 MG; Start 10/12/16 at 13:00 Furosemide (Lasix) 40 mg AM PO Last administered on 11/01/16 09:24; Admin Dose 40 MG; Start 10/25/16 at 09:00 Amiodarone HCl (Cordarone) 200 mg BID PO Last administered on 11/01/16 20:48; Admin Dose 200 MG; Start 10/24/16 at 21:00 Prednisone (Prednisone) 10 mg DAILY PO Last administered on 11/01/16 09:24; Admin Dose 10 MG; Start 10/27/16 at 09:00 Furosemide (Lasix) 40 mg 17 PO Last administered on 11/01/16 17:10; Admin Dose 40 MG; Start 10/26/16 at 17:00 Metoprolol Succinate (Toprol Xl) 50 mg DAILY PO Last administered on 10/30/16 08:21; Admin Dose 50 MG; Start 10/28/16 at 09:00 Metoprolol Succinate (Toprol Xl) 50 mg HS PO Last administered on 11/01/16 20: 49; Admin Dose 50 MG; Start 10/28/16 at 21:00 Lisinopril 20 mg 20 mg DAILY PO Last administered on 10/31/16 10:17; Admin Dose 20 MG; Start 10/31/16 at 10:09 Colistimethate Sodium/Sodium Chloride (Coly-Mycin/NS) 100 ml @ 200 mls/hr Q12 IVPB Last administered on 11/01/16 20:48; Admin Dose 200 MLS/HR; Start at 21:00; Stop 11/03/16 at 12:00 RAYSHAWN DUNN MD Nov 02, 2016 08:40
[2016-11-02] MEDS: MUPIROCIN 2% 22 GM OINT TOP SCH ×2 (09:00→21:41)
[2016-11-02] MEDS: FUROSEMIDE 40 MG TAB PO SCH ×2 (09:58→17:57)
[2016-11-02] MEDS: predniSONE 10 MG TAB PO SCH (09:58)
[2016-11-02] MEDS: COLISTIMETHATE 75 MG in SOD CHLORIDE 0.9% 100 ML IVPB SCH ×2 (09:58→21:38)
[2016-11-02] MEDS: ASPIRIN 81 MG TAB PO SCH (09:58)
[2016-11-02] MEDS: FAMOTIDINE 20 MG TAB PO SCH ×2 (09:58→21:40)
[2016-11-02] MEDS: APIXABAN 5 MG TABLET PO SCH ×2 (09:59→21:40)
[2016-11-02] MEDS: LISINOPRIL 20 MG TAB PO SCH (09:59)
[2016-11-02] MEDS: AMIODARONE 200 MG TAB PO SCH ×2 (10:01→21:39)
[2016-11-02] MEDS: METOPROLOL (XL) 25 MG TAB PO SCH ×2 (10:02→21:40)
--- NOTE | 2016-11-02 13:11 | PN ---
Date/Time of Note Date/Time of Note DATE: 11/02/16 TIME: 13:09 Assessment/Plan VTE Prophylaxis VTE Prophylaxis Intervention: other (eliquis) Lines/Catheters IV C[facility]ter Type [facility]from [facility]): [facility] Urinary Cath still in place: No Assessment/Plan Chief Complaint/Hosp Course This is a 66-year-old gentleman who is known to our service from prior hospitalization with a past medical history of ischemic cardiomyopathy, ejection fraction 25%, coronary artery disease, hypertension, dyslipidemia, COPD , CHF who resides at [facility], sick sinus syndrome, status post pacemaker placement, ischemic cardiomyopathy, atrial fibrillation who was found to have increased shortness of breath at [facility] and was transferred to [facility] Emergency Room via EMS, where he was found to have oxygen saturation of 69% in room air. His ABG showed pH of 7.269, pCO2 94.4, pCO2 57.5, bicarbonate 42.3, oxygen saturation 85.1%. He was placed on BiPAP, which he was not able to tolerate and continued to become more hypoxic. Therefore, he was intubated in the course of the emergency room. Pulmonology was consulted. The patient was also treated with Solu-Medrol, cefepime, breathing treatment, and at this time he has been placed on propofol secondary to intubation. Patient was treated with antibiotics, nebulizer and steroid for pneumonia and COPD exacerbation, symptoms improved. He got extubated. Respiratory culture positive for ESBL E. Coli, and Lauren albicans, that he is on invanz and diflucan. Patient is clinically stable. No more antibiotics is needed per ID. Patient had atrial fibrillation with RVR. Toprol XL was increased to 50 mg daily. He is with sinus rhythm now. He had CAD, troponin was slightly increased to 0.167. It is considered tachycardia related. He had ICD shock like feeling that resolved after ICD was adjusted. Problems: Assessment/Plan 1. COPD exacerbation, stable, neb, decrease steroid 2. facility acquired pneumonia, with ESBL E. Coli, and Lauren albicans, treated 3. Atrial fibrillation with RVR, sinus now, follow up with cardiology 4. Mildly elevated troponin, likely tachycardia related, follow up with cardiology 5. Congestive heart failure, systolic, chronic, stable 6. Ischemic cardiomyopathy 7. CAD 8. s/p ICD, stable 9. Essential hypertension, stable 10. Dyslipidemia. Continue statin. 11. Hx of Foot Fx- stable 12. DVT prophylaxis: eliquis 13. Social disposition, awaiting for placement 14. UTI, on rocephin Subjective 24 Hr Interval Summary Free Text/Dictation no event Exam/Review of Systems Vital Signs Vitals Vital Signs Date Time Temp Pulse Resp B/P Pulse Ox O2 Delivery O2 Flow Rate FiO2 11/02/16 12:41 66 11/02/16 08:52 20 92 Nasal Cannula 3.0 11/02/16 08:25 99.5 103/57 10/31/16 02:02 32 Intake and Output 11/01/16 11/01/16 11/02/16 15:00 23:00 07:00 Intake Total 620 ml 350 ml Balance 620 ml 350 ml Exam Constitutional: alert, oriented, well developed Psych: nl mood/affect, no complaints Head: atraumatic, normocephalic Eyes: EOMI, PERRL, nl conjunctiva, nl lids ENMT: mucosa pink and moist, nl external ears & nose, nl lips & teeth, nl nasal mucosa & septum Neck: non-tender, supple Respiratory: clear to auscultation, normal air movement, No congested cough, No crackles/rales, No diminished breath sounds, No intercostal retraction, No labored breathing, No other, No respirations, No tactile fremitus, No wheezing Cardiovascular: nl pulses, regular rate and rhythm, No S3, No S4, No bruits, No diastolic murmur, No edema, No gallop, No irregular rhythm, No jugular venous distention (JVD), No murmurs/extra sounds, No other, No rub, No systolic murmur Gastrointestinal: nl liver, spleen, non-tender, soft, No ascites, No bowel sounds, No distended, No firm, No hepatomegaly, No mass , No other, No rebound or guarding, No splenomegaly, No surgical scars, No tender Musculoskeletal: nl extremities to inspection Neurological: REFUSE DRIVER II-XII intact, nl mental status, nl speech, nl strength Skin: nl turgor, rash or lesions Lymph: nl lymph nodes Results Result Diagram: 11/01/16 0550 11/01/16 0550 Results 24 hrs Laboratory Tests Test 11/01/16 17:12 11/01/16 21:11 11/02/16 07:52 11/02/16 12:20 Bedside Glucose 177 152 123 182 Medications Medications Current Medications IV Flush (NS 10 ml) 10 ml PRN PRN IV IV PROTOCOL; Start 09/28/16 at 14:00 Ondansetron HCl (Zofran Inj) 4 mg Q6H PRN IV NAUSEA AND/OR VOMITING; Start at 15:00 Nitroglycerin (Nitroglycerin (Sl Tab) 0.4 Mg) 1 tab Q5M PRN SL CHEST PAIN; Start 09/28/16 at 15:00 Acetaminophen (Tylenol Liquid) 650 mg Q6H PRN PO PAIN LEVEL 1-3 OR FEVER; Start 09/28/16 at 15:00 Acetaminophen (Tylenol Tab) 650 mg Q6H PRN PO PAIN LEVEL 1-3 OR FEVER Last administered on 10/28/16 09:00; Admin Dose 650 MG; Start 09/28/16 at 15:00 Morphine Sulfate (morphine) 2 mg Q4H PRN IV PAIN LEVEL 7-10 Last administered on 09/29/16 02:30; Admin Dose 2 MG; Start 09/28/16 at 15:00 Lorazepam (Ativan) 1 mg Q2H PRN IV ANXIETY Last administered on 10/29/16 20:56 ; Admin Dose 1 MG; Start 09/28/16 at 15:00 Docusate Sodium (Colace) 100 mg Q12H PRN PO CONSTIPATION; Start 09/28/16 at 15: 00 Famotidine (Pepcid) 20 mg Q12 PO Last administered on 11/02/16 09:58; Admin Dose 20 MG; Start 09/28/16 at 21:00 Aspirin (Aspirin) 81 mg DAILY PO Last administered on 11/02/16 09:58; Admin Dose 81 MG; Start 09/29/16 at 09:00 Atorvastatin Calcium (Lipitor) 10 mg QHS PO Last administered on 11/01/16 20: 48; Admin Dose 10 MG; Start 09/28/16 at 21:00 Tiotropium [place] (Spiriva) 1 inh DAILY INH ; Start 09/28/16 at 16:00; Status Future Hold Mupirocin (Bactroban) 1 applic BID TOP Last administered on 11/01/16 20:48; Admin Dose 1 APPLIC; Start 09/30/16 at 09:00 Diagnostic Test (Pha) (Accucheck) 1 ea 02 XX Last administered on 10/31/16 02: 55; Admin Dose 1 EA; Start 10/05/16 at 02:00 Miscellaneous Information 1 ea NOTE XX ; Start 10/04/16 at 09:00 Glucose (Glutose) 15 gm Q15M PRN PO DECREASED GLUCOSE; Start 10/04/16 at 09:00 Glucose (Glutose) 22.5 gm Q15M PRN PO DECREASED GLUCOSE; Start 10/04/16 at 09: 00 Dextrose (D50w Syringe) 25 ml Q15M PRN IV DECREASED GLUCOSE; Start 10/04/16 at 09:00 Dextrose (D50w Syringe) 50 ml Q15M PRN IV DECREASED GLUCOSE; Start 10/04/16 at 09:00 Glucagon (Glucagen) 1 mg Q15M PRN IM DECREASED GLUCOSE; Start 10/04/16 at 09:00 Glucose (Glutose) 15 gm Q15M PRN BUCCAL DECREASED GLUCOSE; Start 10/04/16 at 09 :00 Metoprolol Tartrate (Lopressor) 5 mg Q4 PRN IV HR>110 Hold SBP<100; Start 10/05 at 19:30 Insulin Glargine (Lantus) 15 unit HS SC Last administered on 11/01/16 21:16; Admin Dose 15 UNIT; Start 10/10/16 at 21:00 Montelukast Sodium (Singulair) 10 mg HS PO Last administered on 11/01/16 20:50 ; Admin Dose 10 MG; Start 10/10/16 at 21:00 Theophylline (Benji-24) 300 mg QHS PO Last administered on 11/01/16 20:49; Admin Dose 300 MG; Start 10/10/16 at 21:00 Apixaban (Eliquis) 5 mg BID PO Last administered on 11/02/16 09:59; Admin Dose 5 MG; Start 10/10/16 at 21:00 Digoxin (Digoxin) 0.125 mg DAILY@13 PO Last administered on 11/01/16 13:37; Admin Dose 0.125 MG; Start 10/12/16 at 13:00 Furosemide (Lasix) 40 mg AM PO Last administered on 11/02/16 09:58; Admin Dose 40 MG; Start 10/25/16 at 09:00 Amiodarone HCl (Cordarone) 200 mg BID PO Last administered on 11/02/16 10:01; Admin Dose 200 MG; Start 10/24/16 at 21:00 Prednisone (Prednisone) 10 mg DAILY PO Last administered on 11/02/16 09:58; Admin Dose 10 MG; Start 10/27/16 at 09:00 Furosemide (Lasix) 40 mg 17 PO Last administered on 11/01/16 17:10; Admin Dose 40 MG; Start 10/26/16 at 17:00 Metoprolol Succinate (Toprol Xl) 50 mg DAILY PO Last administered on 11/02/16 10:02; Admin Dose 50 MG; Start 10/28/16 at 09:00 Metoprolol Succinate (Toprol Xl) 50 mg HS PO Last administered on 11/01/16 20: 49; Admin Dose 50 MG; Start 10/28/16 at 21:00 Lisinopril 20 mg 20 mg DAILY PO Last administered on 11/02/16 09:59; Admin Dose 20 MG; Start 10/31/16 at 10:09 Colistimethate Sodium/Sodium Chloride (Coly-Mycin/NS) 100 ml @ 200 mls/hr Q12 IVPB Last administered on 11/02/16 09:58; Admin Dose 200 MLS/HR; Start at 21:00; Stop 11/03/16 at 12:00 FUNMI MEZA MD Nov 02, 2016 13:11
[2016-11-02] MEDS: DIGOXIN 0.125 MG TAB PO SCH (13:55)
--- NOTE | 2016-11-02 14:27 | PN ---
DATE: 11/02/2016 SUBJECTIVE: No events overnight. No fevers. The patient is alert, looks comfortable. Denies pain , discomfort. No labs this morning. MICROBIOLOGY: Urine culture on 10/28/2016 grew multi-drug resistant Klebsiella pneumoniae. Blood c ulture growing gram-negative rods as well. ANTIMICROBIALS: She is on IV colistin, started on 10/31/2016. PHYSICAL EXAMINATION: GENERAL: This is a well-nourished, well-developed elderly man, who is awake, in no distress. HEENT: Head atraumatic, normocephalic. Sclerae anicteric. Buccal mucosa pink. NECK: Supple. CHEST: Rise symmetrical. Breath sounds diminished to bases. HEART: S1, S2. ABDOMEN: Soft. Bowel tones present. EXTREMITIES: Without cyanosis. ASSESSMENT: 1. Multidrug-resistant urinary tract infection with bacteremia. 2. Status post pneumonia and chronic obstructive pulmonary disease exacerbation. 3. Status post rapid atrial fibrillation. 4. Anemia. PLAN: Patient remains stable. We are going to follow repeat blood cultures, continue him on curren t antimicrobials, await for final cultures. Monitor renal function closely. Dictated By: CODY BRANCH [employer] WORKER for ASAD KEITA/NTS Conf#: [id number] DID#: [id number]
[2016-11-02] MEDS: predniSONE 2.5 MG TAB PO SCH (17:57)
[2016-11-02] MEDS: ATORVASTATIN 10 MG TAB PO SCH (21:39)
[2016-11-02] MEDS: MONTELUKAST 10 MG TAB PO SCH (21:40)
[2016-11-02] MEDS: THEOPHYLLINE (SR) 300 MG CAP PO SCH (21:40)
[2016-11-02] MEDS: INSULIN GLARGINE [LANtus] 3 ML PEN SC SCH (21:43)
[2016-11-03] VITALS (12 sets, daily range): BP systolic 96–126; BP diastolic 56–74; PULSE 60–68; RESP 16–22
[2016-11-03] MEDS: ALBUTEROL/IPRATROPIUM (NEB) 3 ML AMP HHN SCH ×4 (01:58→20:43)
[2016-11-03] MEDS: ACCU-CHEK XX SCH (02:00)
[2016-11-03 07:14] LABS: CREATININE 1.18 mg/dl (0.61-1.24)
[2016-11-03] MEDS: INSULIN ASPART [NOVOLOG] 3 ML PEN SC SCH ×7 (08:00→21:00)
[2016-11-03] MEDS: METOPROLOL (XL) 25 MG TAB PO SCH ×2 (10:00→21:00)
[2016-11-03] MEDS: predniSONE 10 MG TAB PO SCH (10:00)
[2016-11-03] MEDS: LISINOPRIL 20 MG TAB PO SCH (10:00)
[2016-11-03] MEDS: COLISTIMETHATE 75 MG in SOD CHLORIDE 0.9% 100 ML IVPB SCH ×2 (10:00→21:08)
[2016-11-03] MEDS: ASPIRIN 81 MG TAB PO SCH (10:01)
[2016-11-03] MEDS: AMIODARONE 200 MG TAB PO SCH ×2 (10:01→21:00)
[2016-11-03] MEDS: FAMOTIDINE 20 MG TAB PO SCH ×2 (10:01→21:09)
[2016-11-03] MEDS: APIXABAN 5 MG TABLET PO SCH ×2 (10:02→21:09)
[2016-11-03] MEDS: FUROSEMIDE 40 MG TAB PO SCH ×2 (10:03→18:42)
[2016-11-03] MEDS: MUPIROCIN 2% 22 GM OINT TOP SCH ×2 (10:05→21:10)
--- NOTE | 2016-11-03 12:37 | PN ---
DATE: 11/03/2016 SUBJECTIVE: Patient is alert, sitting in bed. Denies pain, no fevers. No labs this morning. MICROBIOLOGY: Blood culture on 10/30/2016 growing Klebsiella pneumoniae, multidrug resistant. Urin e culture on 10/28/2016 also grew Klebsiella pneumoniae. Repeat blood culture on 11/01/2016 still g rowing gram-negative rods. ANTIMICROBIALS: Patient is on IV Colistin. PHYSICAL EXAMINATION: GENERAL: Chronically ill-appearing, elderly man who is alert, in no distress. HEENT: Head atraumatic, normocephalic. Sclerae anicteric. Buccal mucosa pink. NECK: Supple. CHEST: Rise symmetrical. Breath sounds clear. HEART: S1, S2. ABDOMEN: Soft, bowel tones present. EXTREMITIES: No cyanosis. Right lower extremity Abdirashid wrapped. ASSESSMENT: 1. 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 2. Status post pneumonia and chronic obstructive pulmonary disease exacerbation. 3. Status post rapid atrial fibrillation. 4. Anemia. 5. History of automatic implantable cardioverter-defibrillator, status post interrogation. 6. History of cardiomyopathy. PLAN: Patient still has dysuria and possibly retaining urine. He is covered with appropriate antim icrobials for bacteremia. We are going to check his postvoid residuals and order a renal ultrasound . If he has high residuals, we may insert Pruett catheter. Continue present care, antibiotics. Dictated By: CODY BRANCH [employer] for ASAD ARTEAGA MD NI/NTS Conf#: [id number] DID#: [id number]
--- NOTE | 2016-11-03 13:01 | PN ---
Date/Time of Note Date/Time of Note DATE: 11/03/16 TIME: 12:54 Assessment/Plan VTE Prophylaxis VTE Prophylaxis Intervention: other (eliquis) Lines/Catheters IV Catheter Type (from Nrs): Peripheral IV Urinary Cath still in place: No Assessment/Plan Assessment/Plan 1. 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 on colistimethate 2. COPD exacerbation, stable, neb, decrease steroid 3. facility acquired pneumonia, with ESBL E. Coli, and Lauren albicans, treated 4. Atrial fibrillation with RVR, sinus now, follow up with cardiology 5. Mildly elevated troponin, likely tachycardia related, follow up with cardiology 6. Congestive heart failure, systolic, chronic, stable 7. Ischemic cardiomyopathy 8. CAD 9. s/p ICD, stable 10. Essential hypertension, stable 11. Dyslipidemia. Continue statin. 12. Hx of Foot Fx- stable 13. DVT prophylaxis: eliquis 14. Social disposition, awaiting for placement Subjective 24 Hr Interval Summary Free Text/Dictation no shortness of breath, no fever or chills Exam/Review of Systems Vital Signs Vitals Vital Signs Date Time Temp Pulse Resp B/P Pulse Ox O2 Delivery O2 Flow Rate FiO2 11/03/16 12:16 98.1 71 20 96/60 92 11/03/16 07:57 Nasal Cannula 3.0 10/31/16 02:02 32 Intake and Output 11/02/16 11/02/16 11/03/16 15:00 23:00 07:00 Intake Total 240 ml 750 ml Balance 240 ml 750 ml Exam Constitutional: alert, oriented, well developed Psych: nl mood/affect, no complaints Head: atraumatic, normocephalic Eyes: EOMI, PERRL, nl conjunctiva, nl lids ENMT: nl external ears & nose, nl lips & teeth, nl nasal mucosa & septum Neck: non-tender, supple Respiratory: clear to auscultation, normal air movement, No congested cough, No crackles/rales, No diminished breath sounds, No intercostal retraction, No labored breathing, No other, No respirations, No tactile fremitus, No wheezing Cardiovascular: irregular rhythm, No S3, No S4, No bruits, No diastolic murmur, No edema, No gallop, No jugular venous distention (JVD), No murmurs/extra sounds, No rub, No systolic murmur Gastrointestinal: nl liver, spleen, non-tender, soft, No ascites, No bowel sounds, No distended, No firm, No hepatomegaly, No mass , No other, No rebound or guarding, No splenomegaly, No surgical scars, No tender Musculoskeletal: nl extremities to inspection Neurological: CREW CHIEF II-XII intact, nl mental status, nl speech, nl strength Results Result Diagram: 11/01/16 0550 11/03/16 0608 Results 24 hrs Laboratory Tests Test 11/02/16 16:57 11/02/16 21:38 11/03/16 02:08 11/03/16 06:08 Bedside Glucose 150 256 H 103 Blood Urea Nitrogen 47 H Creatinine 1.18 Test 11/03/16 08:21 Bedside Glucose 97 Medications Medications Current Medications IV Flush (NS 10 ml) 10 ml PRN PRN IV IV PROTOCOL; Start 09/28/16 at 14:00 Ondansetron HCl (Zofran Inj) 4 mg Q6H PRN IV NAUSEA AND/OR VOMITING; Start at 15:00 Nitroglycerin (Nitroglycerin (Sl Tab) 0.4 Mg) 1 tab Q5M PRN SL CHEST PAIN; Start 09/28/16 at 15:00 Acetaminophen (Tylenol Liquid) 650 mg Q6H PRN PO PAIN LEVEL 1-3 OR FEVER; Start 09/28/16 at 15:00 Acetaminophen (Tylenol Tab) 650 mg Q6H PRN PO PAIN LEVEL 1-3 OR FEVER Last administered on 10/28/16 09:00; Admin Dose 650 MG; Start 09/28/16 at 15:00 Morphine Sulfate (morphine) 2 mg Q4H PRN IV PAIN LEVEL 7-10 Last administered on 09/29/16 02:30; Admin Dose 2 MG; Start 09/28/16 at 15:00 Lorazepam (Ativan) 1 mg Q2H PRN IV ANXIETY Last administered on 10/29/16 20:56 ; Admin Dose 1 MG; Start 09/28/16 at 15:00 Docusate Sodium (Colace) 100 mg Q12H PRN PO CONSTIPATION; Start 09/28/16 at 15: 00 Famotidine (Pepcid) 20 mg Q12 PO Last administered on 11/03/16 10:01; Admin Dose 20 MG; Start 09/28/16 at 21:00 Aspirin (Aspirin) 81 mg DAILY PO Last administered on 11/03/16 10:01; Admin Dose 81 MG; Start 09/29/16 at 09:00 Atorvastatin Calcium (Lipitor) 10 mg QHS PO Last administered on 11/02/16 21: 39; Admin Dose 10 MG; Start 09/28/16 at 21:00 Tiotropium [place] (Spiriva) 1 inh DAILY INH ; Start 09/28/16 at 16:00; Status Future Hold Mupirocin (Bactroban) 1 applic BID TOP Last administered on 11/03/16 10:05; Admin Dose 1 APPLIC; Start 09/30/16 at 09:00 Diagnostic Test (Pha) (Accucheck) 1 ea 02 XX Last administered on 11/03/16 02: 00; Admin Dose 1 EA; Start 10/05/16 at 02:00 Miscellaneous Information 1 ea NOTE XX ; Start 10/04/16 at 09:00 Glucose (Glutose) 15 gm Q15M PRN PO DECREASED GLUCOSE; Start 10/04/16 at 09:00 Glucose (Glutose) 22.5 gm Q15M PRN PO DECREASED GLUCOSE; Start 10/04/16 at 09: 00 Dextrose (D50w Syringe) 25 ml Q15M PRN IV DECREASED GLUCOSE; Start 10/04/16 at 09:00 Dextrose (D50w Syringe) 50 ml Q15M PRN IV DECREASED GLUCOSE; Start 10/04/16 at 09:00 Glucagon (Glucagen) 1 mg Q15M PRN IM DECREASED GLUCOSE; Start 10/04/16 at 09:00 Glucose (Glutose) 15 gm Q15M PRN BUCCAL DECREASED GLUCOSE; Start 10/04/16 at 09 :00 Metoprolol Tartrate (Lopressor) 5 mg Q4 PRN IV HR>110 Hold SBP<100; Start 10/05 at 19:30 Insulin Glargine (Lantus) 15 unit HS SC Last administered on 11/02/16 21:43; Admin Dose 15 UNIT; Start 10/10/16 at 21:00 Montelukast Sodium (Singulair) 10 mg HS PO Last administered on 11/02/16 21:40 ; Admin Dose 10 MG; Start 10/10/16 at 21:00 Theophylline (Benji-24) 300 mg QHS PO Last administered on 11/02/16 21:40; Admin Dose 300 MG; Start 10/10/16 at 21:00 Apixaban (Eliquis) 5 mg BID PO Last administered on 11/03/16 10:02; Admin Dose 5 MG; Start 10/10/16 at 21:00 Digoxin (Digoxin) 0.125 mg DAILY@13 PO Last administered on 11/02/16 13:55; Admin Dose 0.125 MG; Start 10/12/16 at 13:00 Furosemide (Lasix) 40 mg AM PO Last administered on 11/03/16 10:03; Admin Dose 40 MG; Start 10/25/16 at 09:00 Amiodarone HCl (Cordarone) 200 mg BID PO Last administered on 11/03/16 10:01; Admin Dose 200 MG; Start 10/24/16 at 21:00 Prednisone (Prednisone) 10 mg DAILY PO Last administered on 11/03/16 10:00; Admin Dose 10 MG; Start 10/27/16 at 09:00 Furosemide (Lasix) 40 mg 17 PO Last administered on 11/02/16 17:57; Admin Dose 40 MG; Start 10/26/16 at 17:00 Metoprolol Succinate (Toprol Xl) 50 mg DAILY PO Last administered on 11/02/16 10:02; Admin Dose 50 MG; Start 10/28/16 at 09:00 Metoprolol Succinate (Toprol Xl) 50 mg HS PO Last administered on 11/02/16 21: 40; Admin Dose 50 MG; Start 10/28/16 at 21:00 Lisinopril 20 mg 20 mg DAILY PO Last administered on 11/02/16 09:59; Admin Dose 20 MG; Start 10/31/16 at 10:09 Colistimethate Sodium/Sodium Chloride (Coly-Mycin/NS) 100 ml @ 200 mls/hr Q12 IVPB ; Start 11/03/16 at 21:00 FUNMI MEZA MD Nov 03, 2016 13:00
--- NOTE | 2016-11-03 14:00 | CONS ---
Date/Time of Note Date/Time of Note DATE: 11/03/16 TIME: 13:59 Assessment/Plan Assessment/Plan Additional Assessment/Plan 1. Parox Atrial fibrillation (with RVR) - improved HR, SINUS NOW - RATE CONTROLLED. Sinus > 3 days now 2. Congestive heart failure, systolic, acute on chronic- con't to keep euvolemic. BETTER NOW. 3. History of cardiomyopathy with decreased left ventricular ejection fraction 20% to 25% per chart biopsy. Stable. ICD in place. 4. Shortness of breath- improved - con't to Rx in conjunction with pulmonary team. IMPROVED with RX. 5. Status post hypercapnic respiratory failure, status post extubation. 6. Chronic obstructive pulmonary disease- on Rx now. NO wheezing now. 7. Hypertension - well Rx now. 8. Dyslipidemia. 9. History of automatic implantable cardioverter-defibrillator with possible discharge.-s/p interrogation with ICD shock for uncontrolled rapid AF. NOW in SINUS. 10. Pneumonia. 11.Positive troponin-minimal with no sig uptrend 12.Dysur Consultation Date/Type/Reason Admit Date/Time Sep 28, 2016 at 14:41 Initial Consult Date 09/28/16 Type of Consultation: ID Referring Provider: DEVON MUHAMMAD MD 24 HR Interval Summary Free Text/Dictation NO acute change - BP stable - con't Med rx. Medications reviewed. ROS: No fever, no chills, no nausea, no vomiting, no diarrhea/constipation No recent weight changes No chest pain, no PND, no orthopnea No dizziness, blurred vision No thirst, no heat or cold intolerance Exam/Review of Systems Vital Signs Vitals Vital Signs Date Time Temp Pulse Resp B/P Pulse Ox O2 Delivery O2 Flow Rate FiO2 11/03/16 12:16 98.1 71 20 96/60 92 11/03/16 07:57 Nasal Cannula 3.0 10/31/16 02:02 32 Intake and Output 11/02/16 11/02/16 11/03/16 15:00 23:00 07:00 Intake Total 240 ml 750 ml Balance 240 ml 750 ml Exam General: WN/WD/NAD, AOx 2-3 HEENT: Unicetric/atraumatic/EOMI (follow commands) NECK: JVD elevated, no thyromegaly Lymph: no lymphadenopathy HEART: regular with no S3, II/ systolic murmur at apex LUNGS: Coarse sounds ABD: soft, NT, ND, +BS : Intact Neuro: non focal SKIN: chronic changes EXT: trace edema Results Result Diagram: 11/01/16 0550 11/03/16 0608 Results 24 hrs Laboratory Tests Test 11/02/16 16:57 11/02/16 21:38 11/03/16 02:08 11/03/16 06:08 Bedside Glucose 150 256 H 103 Blood Urea Nitrogen 47 H Creatinine 1.18 Test 11/03/16 08:21 11/03/16 12:57 Bedside Glucose 97 108 Medications Medications Current Medications IV Flush (NS 10 ml) 10 ml PRN PRN IV IV PROTOCOL; Start 09/28/16 at 14:00 Ondansetron HCl (Zofran Inj) 4 mg Q6H PRN IV NAUSEA AND/OR VOMITING; Start at 15:00 Nitroglycerin (Nitroglycerin (Sl Tab) 0.4 Mg) 1 tab Q5M PRN SL CHEST PAIN; Start 09/28/16 at 15:00 Acetaminophen (Tylenol Liquid) 650 mg Q6H PRN PO PAIN LEVEL 1-3 OR FEVER; Start 09/28/16 at 15:00 Acetaminophen (Tylenol Tab) 650 mg Q6H PRN PO PAIN LEVEL 1-3 OR FEVER Last administered on 10/28/16 09:00; Admin Dose 650 MG; Start 09/28/16 at 15:00 Morphine Sulfate (morphine) 2 mg Q4H PRN IV PAIN LEVEL 7-10 Last administered on 09/29/16 02:30; Admin Dose 2 MG; Start 09/28/16 at 15:00 Lorazepam (Ativan) 1 mg Q2H PRN IV ANXIETY Last administered on 10/29/16 20:56 ; Admin Dose 1 MG; Start 09/28/16 at 15:00 Docusate Sodium (Colace) 100 mg Q12H PRN PO CONSTIPATION; Start 09/28/16 at 15: 00 Famotidine (Pepcid) 20 mg Q12 PO Last administered on 11/03/16 10:01; Admin Dose 20 MG; Start 09/28/16 at 21:00 Aspirin (Aspirin) 81 mg DAILY PO Last administered on 11/03/16 10:01; Admin Dose 81 MG; Start 09/29/16 at 09:00 Atorvastatin Calcium (Lipitor) 10 mg QHS PO Last administered on 11/02/16 21: 39; Admin Dose 10 MG; Start 09/28/16 at 21:00 Tiotropium [place] (Spiriva) 1 inh DAILY INH ; Start 09/28/16 at 16:00; Status Future Hold Mupirocin (Bactroban) 1 applic BID TOP Last administered on 11/03/16 10:05; Admin Dose 1 APPLIC; Start 09/30/16 at 09:00 Diagnostic Test (Pha) (Accucheck) 1 ea 02 XX Last administered on 11/03/16 02: 00; Admin Dose 1 EA; Start 10/05/16 at 02:00 Miscellaneous Information 1 ea NOTE XX ; Start 10/04/16 at 09:00 Glucose (Glutose) 15 gm Q15M PRN PO DECREASED GLUCOSE; Start 10/04/16 at 09:00 Glucose (Glutose) 22.5 gm Q15M PRN PO DECREASED GLUCOSE; Start 10/04/16 at 09: 00 Dextrose (D50w Syringe) 25 ml Q15M PRN IV DECREASED GLUCOSE; Start 10/04/16 at 09:00 Dextrose (D50w Syringe) 50 ml Q15M PRN IV DECREASED GLUCOSE; Start 10/04/16 at 09:00 Glucagon (Glucagen) 1 mg Q15M PRN IM DECREASED GLUCOSE; Start 10/04/16 at 09:00 Glucose (Glutose) 15 gm Q15M PRN BUCCAL DECREASED GLUCOSE; Start 10/04/16 at 09 :00 Metoprolol Tartrate (Lopressor) 5 mg Q4 PRN IV HR>110 Hold SBP<100; Start 10/05 at 19:30 Insulin Glargine (Lantus) 15 unit HS SC Last administered on 11/02/16 21:43; Admin Dose 15 UNIT; Start 10/10/16 at 21:00 Montelukast Sodium (Singulair) 10 mg HS PO Last administered on 11/02/16 21:40 ; Admin Dose 10 MG; Start 10/10/16 at 21:00 Theophylline (Benji-24) 300 mg QHS PO Last administered on 11/02/16 21:40; Admin Dose 300 MG; Start 10/10/16 at 21:00 Apixaban (Eliquis) 5 mg BID PO Last administered on 11/03/16 10:02; Admin Dose 5 MG; Start 10/10/16 at 21:00 Digoxin (Digoxin) 0.125 mg DAILY@13 PO Last administered on 11/02/16 13:55; Admin Dose 0.125 MG; Start 10/12/16 at 13:00 Furosemide (Lasix) 40 mg AM PO Last administered on 11/03/16 10:03; Admin Dose 40 MG; Start 10/25/16 at 09:00 Amiodarone HCl (Cordarone) 200 mg BID PO Last administered on 11/03/16 10:01; Admin Dose 200 MG; Start 10/24/16 at 21:00 Prednisone (Prednisone) 10 mg DAILY PO Last administered on 11/03/16 10:00; Admin Dose 10 MG; Start 10/27/16 at 09:00 Furosemide (Lasix) 40 mg 17 PO Last administered on 11/02/16 17:57; Admin Dose 40 MG; Start 10/26/16 at 17:00 Metoprolol Succinate (Toprol Xl) 50 mg DAILY PO Last administered on 11/02/16 10:02; Admin Dose 50 MG; Start 10/28/16 at 09:00 Metoprolol Succinate (Toprol Xl) 50 mg HS PO Last administered on 11/02/16 21: 40; Admin Dose 50 MG; Start 10/28/16 at 21:00 Lisinopril 20 mg 20 mg DAILY PO Last administered on 11/02/16 09:59; Admin Dose 20 MG; Start 10/31/16 at 10:09 Colistimethate Sodium/Sodium Chloride (Coly-Mycin/NS) 100 ml @ 200 mls/hr Q12 IVPB ; Start 11/03/16 at 21:00 RAYSHAWN DUNN MD Nov 03, 2016 14:00
[2016-11-03] MEDS: DIGOXIN 0.125 MG TAB PO SCH (14:07)
--- NOTE | 2016-11-03 14:16 | RADRPT ---
PROCEDURE: Retroperitoneal US. CLINICAL INDICATION: Pain, hydronephrosis TECHNIQUE: Multiple sonographic images of the kidneys and retroperitoneum were obtained. The imag es were reviewed on a PACS workstation. COMPARISON: No prior studies are available for comparison. FINDINGS: The kidneys are normal in size, contour, cortical thickness and cortical echogenicity. The right kidney measures 12.7 cm. The left kidney measures 12.1 cm. There is a 2.3 cm septated cyst in the right kidney. No kidney stones are visualized. There is mild to moderate bilateral hydronephrosis. The urinary bladder is moderately distended with echogenic debris within it. The visualized portions of the aorta and IVC are within normal limits. RPTAT: AA IMPRESSION: Mild to moderate bilateral hydronephrosis. Complex septated cyst in the lower pole of the right kidney. Moderately distended urinary bladder with echogenic debris within it. Further evaluation with a CT urogram is recommended. .Dimas Tafoya MD, Date Time Electronically viewed and signed by .Dimas Tafoya MD, MD on 11/03/2016 14:15 .S/
[2016-11-03] MEDS: predniSONE 2.5 MG TAB PO SCH (18:41)
[2016-11-03] MEDS: THEOPHYLLINE (SR) 300 MG CAP PO SCH (21:08)
[2016-11-03] MEDS: MONTELUKAST 10 MG TAB PO SCH (21:09)
[2016-11-03] MEDS: ATORVASTATIN 10 MG TAB PO SCH (21:09)
[2016-11-03] MEDS: INSULIN GLARGINE [LANtus] 3 ML PEN SC SCH (21:11)
[2016-11-04] VITALS (11 sets, daily range): BP systolic 106–128; BP diastolic 58–69; PULSE 51–77; RESP 16–20
[2016-11-04] MEDS: ALBUTEROL/IPRATROPIUM (NEB) 3 ML AMP HHN SCH ×4 (01:42→20:08)
[2016-11-04] MEDS: ACCU-CHEK XX SCH (02:00)
[2016-11-04] MEDS: INSULIN ASPART [NOVOLOG] 3 ML PEN SC SCH ×7 (08:00→21:00)
[2016-11-04] MEDS: ASPIRIN 81 MG TAB PO SCH (08:19)
[2016-11-04] MEDS: COLISTIMETHATE 75 MG in SOD CHLORIDE 0.9% 100 ML IVPB SCH ×2 (08:19→21:00)
[2016-11-04] MEDS: APIXABAN 5 MG TABLET PO SCH ×2 (08:20→21:00)
[2016-11-04] MEDS: AMIODARONE 200 MG TAB PO SCH ×2 (08:20→21:00)
[2016-11-04] MEDS: FUROSEMIDE 40 MG TAB PO SCH (08:22)
[2016-11-04] MEDS: FAMOTIDINE 20 MG TAB PO SCH ×2 (08:22→21:00)
[2016-11-04] MEDS: METOPROLOL (XL) 25 MG TAB PO SCH ×2 (08:23→21:00)
[2016-11-04] MEDS: predniSONE 10 MG TAB PO SCH (08:23)
[2016-11-04] MEDS: LISINOPRIL 20 MG TAB PO SCH (08:24)
[2016-11-04] MEDS: MUPIROCIN 2% 22 GM OINT TOP SCH ×2 (08:24→21:00)
[2016-11-04 08:30] LABS: POTASSIUM 5.1 mmol/L (3.5-5.1)
[2016-11-04 08:33] LABS: CREATININE 1.18 mg/dl (0.61-1.24)
[2016-11-04 08:34] LABS: CALCIUM 9.3 mg/dl (8.4-10.2)
[2016-11-04] MEDS: DIGOXIN 0.125 MG TAB PO SCH (13:08)
--- NOTE | 2016-11-04 13:31 | PN ---
Date/Time of Note Date/Time of Note DATE: 11/04/16 TIME: 13:30 Assessment/Plan VTE Prophylaxis VTE Prophylaxis Intervention: other (eliquis) Lines/Catheters IV Catheter Type (from Nrs): [place] Urinary Cath still in place: No Assessment/Plan Assessment/Plan 1. 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 on colistimethate 2. COPD exacerbation, stable, neb, decrease steroid 3. facility acquired pneumonia, with ESBL E. Coli, and Lauren albicans, treated 4. Atrial fibrillation with RVR, sinus now, follow up with cardiology 5. Mildly elevated troponin, likely tachycardia related, follow up with cardiology 6. Congestive heart failure, systolic, chronic, stable 7. Ischemic cardiomyopathy 8. CAD 9. s/p ICD, stable 10. Essential hypertension, stable 11. Dyslipidemia. Continue statin. 12. Hx of Foot Fx- stable 13. DVT prophylaxis: eliquis 14. Social disposition, awaiting for placement Subjective 24 Hr Interval Summary Free Text/Dictation no event. no shortness of breath Exam/Review of Systems Vital Signs Vitals Vital Signs Date Time Temp Pulse Resp B/P Pulse Ox O2 Delivery O2 Flow Rate FiO2 11/04/16 12:35 71 11/04/16 12:02 98.4 20 114/65 95 11/04/16 09:17 Nasal Cannula 5.0 Intake and Output 11/03/16 11/03/16 11/04/16 15:00 23:00 07:00 Intake Total 500 ml Balance 500 ml Exam Constitutional: alert, oriented, well developed Psych: nl mood/affect, no complaints Head: atraumatic, normocephalic Eyes: EOMI, PERRL, nl conjunctiva, nl lids ENMT: nl external ears & nose, nl lips & teeth, nl nasal mucosa & septum Neck: non-tender, supple Respiratory: clear to auscultation, normal air movement, No congested cough, No crackles/rales, No diminished breath sounds, No intercostal retraction, No labored breathing, No other, No respirations, No tactile fremitus, No wheezing Cardiovascular: irregular rhythm, nl pulses, No S3, No S4, No bruits, No diastolic murmur, No edema, No gallop, No jugular venous distention (JVD), No murmurs/extra sounds, No other, No rub, No systolic murmur Gastrointestinal: nl liver, spleen, non-tender, soft, No ascites, No bowel sounds, No distended, No firm, No hepatomegaly, No mass , No other, No rebound or guarding, No splenomegaly, No surgical scars, No tender Musculoskeletal: nl extremities to inspection Extremities: normal pulses, No calf tenderness, No clubbing, No cyanosis, No edema, No other, No palpable cord, No pitting pedal edema, No tenderness Neurological: DISK RECORDIST II-XII intact, nl mental status, nl speech, nl strength Skin: nl turgor Results Result Diagram: 11/01/16 0550 11/04/16 0731 Results 24 hrs Laboratory Tests Test 11/03/16 18:47 11/03/16 20:21 11/04/16 07:31 11/04/16 08:37 Bedside Glucose 127 151 85 Anion Gap 11 Blood Urea Nitrogen 48 H Calcium Level 9.3 Carbon Dioxide Level Chloride Level 92 L Creatinine 1.18 Glucose Level 76 Potassium Level 5.1 Sodium Level 140 Test 11/04/16 10:41 11/04/16 12:48 Bedside Glucose 111 129 Medications Medications Current Medications IV Flush (NS 10 ml) 10 ml PRN PRN IV IV PROTOCOL; Start 09/28/16 at 14:00 Ondansetron HCl (Zofran Inj) 4 mg Q6H PRN IV NAUSEA AND/OR VOMITING; Start at 15:00 Nitroglycerin (Nitroglycerin (Sl Tab) 0.4 Mg) 1 tab Q5M PRN SL CHEST PAIN; Start 09/28/16 at 15:00 Acetaminophen (Tylenol Liquid) 650 mg Q6H PRN PO PAIN LEVEL 1-3 OR FEVER; Start 09/28/16 at 15:00 Acetaminophen (Tylenol Tab) 650 mg Q6H PRN PO PAIN LEVEL 1-3 OR FEVER Last administered on 10/28/16 09:00; Admin Dose 650 MG; Start 09/28/16 at 15:00 Morphine Sulfate (morphine) 2 mg Q4H PRN IV PAIN LEVEL 7-10 Last administered on 09/29/16 02:30; Admin Dose 2 MG; Start 09/28/16 at 15:00 Lorazepam (Ativan) 1 mg Q2H PRN IV ANXIETY Last administered on 10/29/16 20:56 ; Admin Dose 1 MG; Start 09/28/16 at 15:00 Docusate Sodium (Colace) 100 mg Q12H PRN PO CONSTIPATION; Start 09/28/16 at 15: 00 Famotidine (Pepcid) 20 mg Q12 PO Last administered on 11/04/16 08:22; Admin Dose 20 MG; Start 09/28/16 at 21:00 Aspirin (Aspirin) 81 mg DAILY PO Last administered on 11/04/16 08:19; Admin Dose 81 MG; Start 09/29/16 at 09:00 Atorvastatin Calcium (Lipitor) 10 mg QHS PO Last administered on 11/03/16 21: 09; Admin Dose 10 MG; Start 09/28/16 at 21:00 Tiotropium [place] (Spiriva) 1 inh DAILY INH ; Start 09/28/16 at 16:00; Status Future Hold Mupirocin (Bactroban) 1 applic BID TOP Last administered on 11/04/16 08:24; Admin Dose 1 APPLIC; Start 09/30/16 at 09:00 Diagnostic Test (Pha) (Accucheck) 1 ea 02 XX Last administered on 11/03/16 02: 00; Admin Dose 1 EA; Start 10/05/16 at 02:00 Miscellaneous Information 1 ea NOTE XX ; Start 10/04/16 at 09:00 Glucose (Glutose) 15 gm Q15M PRN PO DECREASED GLUCOSE; Start 10/04/16 at 09:00 Glucose (Glutose) 22.5 gm Q15M PRN PO DECREASED GLUCOSE; Start 10/04/16 at 09: 00 Dextrose (D50w Syringe) 25 ml Q15M PRN IV DECREASED GLUCOSE; Start 10/04/16 at 09:00 Dextrose (D50w Syringe) 50 ml Q15M PRN IV DECREASED GLUCOSE; Start 10/04/16 at 09:00 Glucagon (Glucagen) 1 mg Q15M PRN IM DECREASED GLUCOSE; Start 10/04/16 at 09:00 Glucose (Glutose) 15 gm Q15M PRN BUCCAL DECREASED GLUCOSE; Start 10/04/16 at 09 :00 Metoprolol Tartrate (Lopressor) 5 mg Q4 PRN IV HR>110 Hold SBP<100; Start 10/05 at 19:30 Insulin Glargine (Lantus) 15 unit HS SC Last administered on 11/03/16 21:11; Admin Dose 15 UNIT; Start 10/10/16 at 21:00 Montelukast Sodium (Singulair) 10 mg HS PO Last administered on 11/03/16 21:09 ; Admin Dose 10 MG; Start 10/10/16 at 21:00 Theophylline (Benji-24) 300 mg QHS PO Last administered on 11/03/16 21:08; Admin Dose 300 MG; Start 10/10/16 at 21:00 Apixaban (Eliquis) 5 mg BID PO Last administered on 11/04/16 08:20; Admin Dose 5 MG; Start 10/10/16 at 21:00 Digoxin (Digoxin) 0.125 mg DAILY@13 PO Last administered on 11/04/16 13:08; Admin Dose 0.125 MG; Start 10/12/16 at 13:00 Furosemide (Lasix) 40 mg AM PO Last administered on 11/04/16 08:22; Admin Dose 40 MG; Start 10/25/16 at 09:00 Amiodarone HCl (Cordarone) 200 mg BID PO Last administered on 11/04/16 08:20; Admin Dose 200 MG; Start 10/24/16 at 21:00 Prednisone (Prednisone) 10 mg DAILY PO Last administered on 11/04/16 08:23; Admin Dose 10 MG; Start 10/27/16 at 09:00 Furosemide (Lasix) 40 mg 17 PO Last administered on 11/03/16 18:42; Admin Dose 40 MG; Start 10/26/16 at 17:00 Metoprolol Succinate (Toprol Xl) 50 mg DAILY PO Last administered on 11/04/16 08:23; Admin Dose 50 MG; Start 10/28/16 at 09:00 Metoprolol Succinate (Toprol Xl) 50 mg HS PO Last administered on 11/02/16 21: 40; Admin Dose 50 MG; Start 10/28/16 at 21:00 Lisinopril 20 mg 20 mg DAILY PO Last administered on 11/04/16 08:24; Admin Dose 20 MG; Start 10/31/16 at 10:09 Colistimethate Sodium/Sodium Chloride (Coly-Mycin/NS) 100 ml @ 200 mls/hr Q12 IVPB Last administered on 11/04/16 08:19; Admin Dose 200 MLS/HR; Start at 21:00 FUNMI MEZA MD Nov 04, 2016 13:31
--- NOTE | 2016-11-04 14:48 | CONS ---
Date/Time of Note Date/Time of Note DATE: 11/04/16 TIME: 14:44 Assessment/Plan Assessment/Plan Chief Complaint/Hosp Course IMPRESSION: 1. Atrial fibrillation with rapid ventricular response.-improved HR and now back in SR by tele 2. Congestive heart failure, systolic, acute on chronic. 3. History of cardiomyopathy with decreased left ventricular ejection fraction 20% to 25% per chart biopsy. 4. Shortness of breath. 5. Status post hypercapnic respiratory failure, status post extubation. 6. Chronic obstructive pulmonary disease. 7. Hypertension. 8. Dyslipidemia. 9. History of automatic implantable cardioverter-defibrillator with possible discharge.-s/p interrogation with ICD shock for uncontrolled rapid AF. 10. Pneumonia. 11.Positive troponin-minimal with no sig uptrend 12.Dysuria Recc -Tele -Continue asa/Eliquis -ACEI/BB as tolerated -Continue digoxin -Continue statin -Follow volume status and will change lasix to daily -awaiting placement Problems: Consultation Date/Type/Reason Admit Date/Time Sep 28, 2016 at 14:41 Initial Consult Date 09/28/16 Type of Consultation: Cardiology Reason for Consultation AICD discharge/CHF Referring Provider: DEVON MUHAMMAD MD Exam/Review of Systems Vital Signs Vitals Vital Signs Date Time Temp Pulse Resp B/P Pulse Ox O2 Delivery O2 Flow Rate FiO2 11/04/16 13:56 63 18 94 Nasal Cannula 5.0 11/04/16 12:02 98.4 114/65 Intake and Output 11/03/16 11/03/16 11/04/16 15:00 23:00 07:00 Intake Total 500 ml Balance 500 ml Exam Review of Systems: CONSTITUTIONAL: No fevers, chills. PULMONARY: No sob CARDIOVASCULAR: No chest pain/palpitations GASTROINTESTINAL: No nausea/vomiting. GENITOURINARY: No hematuria/dysuria. MUSCULOSKELETAL: No myagias/arthalgias. PSYCHIATRIC: The patient denies depression. NEUROLOGIC: No weakness Constitutional: alert Psych: no complaints Head: normocephalic ENMT: mucosa pink and moist Neck: jvd (8 cm water), supple Respiratory: clear to auscultation Cardiovascular: regular rate and rhythm Gastrointestinal: non-tender, soft Musculoskeletal: muscle tone (normal) Extremities: edema (none), other (in boot) Neurological: other (No focal deficits) Results Result Diagram: 11/01/16 0550 11/04/16 0731 Results 24 hrs Laboratory Tests Test 11/03/16 18:47 11/03/16 20:21 11/04/16 07:31 11/04/16 08:37 Bedside Glucose 127 151 85 Anion Gap 11 Blood Urea Nitrogen 48 H Calcium Level 9.3 Carbon Dioxide Level Chloride Level 92 L Creatinine 1.18 Glucose Level 76 Potassium Level 5.1 Sodium Level 140 Test 11/04/16 10:41 11/04/16 12:48 Bedside Glucose 111 129 Medications Medications Current Medications IV Flush (NS 10 ml) 10 ml PRN PRN IV IV PROTOCOL; Start 09/28/16 at 14:00 Ondansetron HCl (Zofran Inj) 4 mg Q6H PRN IV NAUSEA AND/OR VOMITING; Start at 15:00 Nitroglycerin (Nitroglycerin (Sl Tab) 0.4 Mg) 1 tab Q5M PRN SL CHEST PAIN; Start 09/28/16 at 15:00 Acetaminophen (Tylenol Liquid) 650 mg Q6H PRN PO PAIN LEVEL 1-3 OR FEVER; Start 09/28/16 at 15:00 Acetaminophen (Tylenol Tab) 650 mg Q6H PRN PO PAIN LEVEL 1-3 OR FEVER Last administered on 10/28/16 09:00; Admin Dose 650 MG; Start 09/28/16 at 15:00 Morphine Sulfate (morphine) 2 mg Q4H PRN IV PAIN LEVEL 7-10 Last administered on 09/29/16 02:30; Admin Dose 2 MG; Start 09/28/16 at 15:00 Lorazepam (Ativan) 1 mg Q2H PRN IV ANXIETY Last administered on 10/29/16 20:56 ; Admin Dose 1 MG; Start 09/28/16 at 15:00 Docusate Sodium (Colace) 100 mg Q12H PRN PO CONSTIPATION; Start 09/28/16 at 15: 00 Famotidine (Pepcid) 20 mg Q12 PO Last administered on 11/04/16 08:22; Admin Dose 20 MG; Start 09/28/16 at 21:00 Aspirin (Aspirin) 81 mg DAILY PO Last administered on 11/04/16 08:19; Admin Dose 81 MG; Start 09/29/16 at 09:00 Atorvastatin Calcium (Lipitor) 10 mg QHS PO Last administered on 11/03/16 21: 09; Admin Dose 10 MG; Start 09/28/16 at 21:00 Tiotropium [place] (Spiriva) 1 inh DAILY INH ; Start 09/28/16 at 16:00; Status Future Hold Mupirocin (Bactroban) 1 applic BID TOP Last administered on 11/04/16 08:24; Admin Dose 1 APPLIC; Start 09/30/16 at 09:00 Diagnostic Test (Pha) (Accucheck) 1 ea 02 XX Last administered on 11/03/16 02: 00; Admin Dose 1 EA; Start 10/05/16 at 02:00 Miscellaneous Information 1 ea NOTE XX ; Start 10/04/16 at 09:00 Glucose (Glutose) 15 gm Q15M PRN PO DECREASED GLUCOSE; Start 10/04/16 at 09:00 Glucose (Glutose) 22.5 gm Q15M PRN PO DECREASED GLUCOSE; Start 10/04/16 at 09: 00 Dextrose (D50w Syringe) 25 ml Q15M PRN IV DECREASED GLUCOSE; Start 10/04/16 at 09:00 Dextrose (D50w Syringe) 50 ml Q15M PRN IV DECREASED GLUCOSE; Start 10/04/16 at 09:00 Glucagon (Glucagen) 1 mg Q15M PRN IM DECREASED GLUCOSE; Start 10/04/16 at 09:00 Glucose (Glutose) 15 gm Q15M PRN BUCCAL DECREASED GLUCOSE; Start 10/04/16 at 09 :00 Metoprolol Tartrate (Lopressor) 5 mg Q4 PRN IV HR>110 Hold SBP<100; Start 10/05 at 19:30 Insulin Glargine (Lantus) 15 unit HS SC Last administered on 11/03/16 21:11; Admin Dose 15 UNIT; Start 10/10/16 at 21:00 Montelukast Sodium (Singulair) 10 mg HS PO Last administered on 11/03/16 21:09 ; Admin Dose 10 MG; Start 10/10/16 at 21:00 Theophylline (Benji-24) 300 mg QHS PO Last administered on 11/03/16 21:08; Admin Dose 300 MG; Start 10/10/16 at 21:00 Apixaban (Eliquis) 5 mg BID PO Last administered on 11/04/16 08:20; Admin Dose 5 MG; Start 10/10/16 at 21:00 Digoxin (Digoxin) 0.125 mg DAILY@13 PO Last administered on 11/04/16 13:08; Admin Dose 0.125 MG; Start 10/12/16 at 13:00 Furosemide (Lasix) 40 mg AM PO Last administered on 11/04/16 08:22; Admin Dose 40 MG; Start 10/25/16 at 09:00 Amiodarone HCl (Cordarone) 200 mg BID PO Last administered on 11/04/16 08:20; Admin Dose 200 MG; Start 10/24/16 at 21:00 Prednisone (Prednisone) 10 mg DAILY PO Last administered on 11/04/16 08:23; Admin Dose 10 MG; Start 10/27/16 at 09:00 Furosemide (Lasix) 40 mg 17 PO Last administered on 11/03/16 18:42; Admin Dose 40 MG; Start 10/26/16 at 17:00 Metoprolol Succinate (Toprol Xl) 50 mg DAILY PO Last administered on 11/04/16 08:23; Admin Dose 50 MG; Start 10/28/16 at 09:00 Metoprolol Succinate (Toprol Xl) 50 mg HS PO Last administered on 11/02/16 21: 40; Admin Dose 50 MG; Start 10/28/16 at 21:00 Lisinopril 20 mg 20 mg DAILY PO Last administered on 11/04/16 08:24; Admin Dose 20 MG; Start 10/31/16 at 10:09 Colistimethate Sodium/Sodium Chloride (Coly-Mycin/NS) 100 ml @ 200 mls/hr Q12 IVPB Last administered on 11/04/16 08:19; Admin Dose 200 MLS/HR; Start at 21:00 СВЕТЛАНА PADRON Nov 04, 2016 14:48
--- NOTE | 2016-11-04 15:24 | PN ---
DATE: 11/04/2016 SUBJECTIVE: This is an infectious disease progress note. No events overnight. The patient is aler t, looks comfortable, no fevers. DIAGNOSTICS: Renal ultrasound yesterday revealed mild to moderate bilateral hydronephrosis and had complex septated cyst in the lower pole of the right kidney. Moderately distended urinary bladder w ith echogenic debris with further evaluation with CT urogram recommended. ANTIMICROBIALS: The patient is on IV Colistin. PHYSICAL EXAMINATION: GENERAL: Well-developed, fragile, elderly man in no distress. HEENT: Head atraumatic, normocephalic. Sclerae anicteric. Buccal mucosa dry. NECK: Supple. CHEST: Rise symmetrical. Breath sounds clear, diminished to bases. HEART: S1, S2. ABDOMEN: Soft, bowel sounds present. EXTREMITIES: No cyanosis. ASSESSMENT: 1. Sepsis, resolving. 2. Multidrug resistant Klebsiella pneumoniae. 3. Urinary tract infection with bacteremia, persistent. 4. Urinary retention. 5. Bilateral hydronephrosis. 6. Chronic obstructive pulmonary disease, status post pneumonia. 7. Coronary artery disease, history of automatic implantable cardioverter defibrillator, status pos t interrogation. PLAN: The patient remains stable, consider urology evaluation, repeat blood cultures and consider F oley catheter placement or straight cath p.r.n. given bladder distention and monitor renal function closely. Dictated By: CODY BRANCH AREA REPRESENTATIVE for ASAD KEITA/NANDO Conf#: [id number] DID#: [id number]
[2016-11-04] MEDS: predniSONE 2.5 MG TAB PO SCH (17:35)
--- NOTE | 2016-11-04 19:33 | CONS ---
DATE OF ADMISSION: 09/28/2016 DATE OF CONSULTATION: 11/04/2016 REQUESTING PHYSICIAN: Debra Dunaway MD HISTORY OF PRESENT ILLNESS: This is a 66-year-old male who has been in the hospital for quite a whi le, and basically his medical problems include a history of multidrug-resistant urinary tract infect ion with persistent bacteremia; COPD exacerbation; ESBL E. coli and Lauren albicans pneumonia that is being treated; atrial fibrillation with rapid ventricular response, sinus now; and the patient marie d mildly elevated troponin, likely tachycardia related; congestive heart failure, systolic, chronic and stable; ischemic cardiomyopathy; coronary artery disease. The patient is status post implantabl e cardioverter device. He has essential hypertension, dyslipidemia, history of foot fracture and DV T prophylaxis, is on Eliquis. The patient has been complaining of dysuria, and even though the cult ure is positive and he is on the proper antibiotic, he continued to complain of burning when he urin ates, and he does urinate small amount. Therefore, a urological consultation was requested. The pa gale states that he does urinate every 2 to 3 hours, and at night he urinates also 2 to 3 times, bu t he does urinate small amount. He states that yesterday he saw his urine to be red, and he denies any prior surgery on his bladder or prostate, but he has had urinary tract infections. Because of h is dysuria and the persistent urinary tract infection, a renal ultrasound was done, and indeed that showed bilateral hydronephrosis and distended urinary bladder with sediment at the bottom of it. Th e patient just voided half hour earlier, and on the examination, his bladder is distended up to the umbilicus, and I did bladder scan, and that showed that he does have over 1000 mL of urine inside hi s bladder, and that is why he keeps the urinary tract infection as well as the sediment inside the b ladder and he would not respond well to the antibiotic. ALLERGIES: THE PATIENT HAS NO KNOWN DRUG ALLERGIES. SOCIAL HISTORY: He resides in a intermediate facility. He has a history of smoking. PHYSICAL EXAMINATION: GENERAL: A 66-year-old male. He weighs 90 kg, is 72 inches tall. VITAL SIGNS: His temperature is 97.3, pulse is 51, respirations 20, blood pressure 124/61. ABDOMEN: A little distended. He does have a scar in the left upper quadrant which could have been from a G-tube or drain before. He does have an umbilical hernia, and the bladder, as mentioned, is distended up to the umbilicus. EXTERNAL GENITALIA: Normal. Penis is normal. RECTAL: Prostate is not large. In fact, on the ultrasound that he had for the kidney and the bladd er yesterday showed the prostate, and looking at it, it does look normal size. On the rectal examin ation, this also feels soft and not enlarged. EXTREMITIES: There is no edema. LABORATORY DATA: His CBC shows a white count of 18.3, hemoglobin 8.9, hematocrit 29.5. The BUN is 48, creatinine 1.18. When he came in, the creatinine was 0.82 and now is 1.18. The PT is 14.3, INR 1.11. The urinalysis, the last one showed 3+ occult blood, 2+ protein, more than 200 WBCs, 10 to 2 5 RBCs, 3+ leukocyte esterase. Urine culture: The last one that was done on 10/28 showed Klebsiell a pneumoniae carbapenemase. The sputum culture: E. coli ESBL and Lauren albicans. The blood cult ures also on the were positive for Klebsiella pneumoniae, same as the one seen in the urine. IMPRESSION: 1. Urinary tract infection and persistent because of urinary retention. 2. Bilateral hydronephrosis. 3. Urinary retention. 4. Prostate is not large. 5. 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 RECOMMENDATION: Do in-and-out cath on him every 6 hours, and this way we keep the bladder empty and we drain all the infected urine, and if he gets better, if he would learn how to do self-catheteriz ation, that would be much helpful. If not, most likely this patient will end needing an indwelling Pruett catheter, but for now will do the in-and-out cath every 6 hours and continue his antibiotic. I will send also his urine for cytology and for a culture. Dictated By: JOSÉ DOS SANTOS/NANDO Conf#: [id number] DID#: [id number]
[2016-11-04] MEDS: ATORVASTATIN 10 MG TAB PO SCH (21:00)
[2016-11-04] MEDS: MONTELUKAST 10 MG TAB PO SCH (21:00)
[2016-11-04] MEDS: THEOPHYLLINE (SR) 300 MG CAP PO SCH (21:00)
[2016-11-04] MEDS: INSULIN GLARGINE [LANtus] 3 ML PEN SC SCH (21:00)
[2016-11-05] VITALS (13 sets, daily range): BP systolic 104–151; BP diastolic 61–79; PULSE 59–78; RESP 16–20
[2016-11-05] MEDS: ALBUTEROL/IPRATROPIUM (NEB) 3 ML AMP HHN SCH ×4 (01:00→20:00)
[2016-11-05] MEDS: ACCU-CHEK XX SCH (02:00)
[2016-11-05 06:58] LABS: POTASSIUM 5.3 mmol/L (3.5-5.1)
[2016-11-05 07:00] LABS: CREATININE 1.19 mg/dl (0.61-1.24)
[2016-11-05 07:05] LABS: CALCIUM 9.3 mg/dl (8.4-10.2)
[2016-11-05] MEDS: INSULIN ASPART [NOVOLOG] 3 ML PEN SC SCH ×7 (08:00→21:00)
[2016-11-05] MEDS: COLISTIMETHATE 75 MG in SOD CHLORIDE 0.9% 100 ML IVPB SCH ×2 (09:01→22:21)
[2016-11-05] MEDS: predniSONE 10 MG TAB PO SCH (11:22)
[2016-11-05] MEDS: ASPIRIN 81 MG TAB PO SCH (11:22)
[2016-11-05] MEDS: AMIODARONE 200 MG TAB PO SCH ×2 (11:22→21:00)
[2016-11-05] MEDS: FUROSEMIDE 40 MG TAB PO SCH (11:24)
[2016-11-05] MEDS: FAMOTIDINE 20 MG TAB PO SCH ×2 (11:25→22:22)
[2016-11-05] MEDS: APIXABAN 5 MG TABLET PO SCH ×2 (11:25→22:22)
--- NOTE | 2016-11-05 11:47 | CONS ---
Date/Time of Note Date/Time of Note DATE: 11/05/16 TIME: 11:44 Assessment/Plan Assessment/Plan Chief Complaint/Hosp Course SUBJECTIVE: No events overnight. The patient issleeping, looks comfortable, no fevers. DIAGNOSTICS: Renal ultrasound yesterday revealed mild to moderate bilateral hydronephrosis and had complex septated cyst in the lower pole of the right kidney. Moderately distended urinary bladder with echogenic debris with further evaluation with CT urogram recommended. ANTIMICROBIALS: The patient is on IV Colistin. PHYSICAL EXAMINATION: GENERAL: Well-developed, fragile, elderly man in no distress. HEENT: Head atraumatic, normocephalic. Sclerae anicteric. Buccal mucosa dry. NECK: Supple. CHEST: Rise symmetrical. Breath sounds clear, diminished to bases. HEART: S1, S2. ABDOMEN: Soft, bowel sounds present. EXTREMITIES: No cyanosis. ASSESSMENT: 1. Sepsis, resolving. 2. Multidrug resistant Klebsiella pneumoniae 2 to #3. 3. Urinary tract infection with bacteremia, persistent. 4. Urinary retention. 5. Bilateral hydronephrosis. 6. Chronic obstructive pulmonary disease, status post pneumonia. 7. Coronary artery disease, history of automatic implantable cardioverter defibrillator, status post interrogation. PLAN: The patient remains stable, pending repeat bld cx, continue abx, f/u urology rec-s==> straight cath q 6 hrs dw staff Problems: Consultation Date/Type/Reason Admit Date/Time Sep 28, 2016 at 14:41 Initial Consult Date 09/28/16 Type of Consultation: ID Referring Provider: DEVON MUHAMMAD MD Exam/Review of Systems Vital Signs Vitals Vital Signs Date Time Temp Pulse Resp B/P Pulse Ox O2 Delivery O2 Flow Rate FiO2 11/05/16 09:27 65 11/05/16 07:57 97.9 20 118/69 94 11/05/16 07:53 Nasal Cannula 5.0 Intake and Output 11/04/16 11/04/16 11/05/16 15:00 23:00 07:00 Intake Total 100 ml 960 ml 400 ml Output Total 900 ml 1050 ml Balance 100 ml 60 ml -650 ml Results Result Diagram: 11/01/16 0550 11/05/16 0540 Results 24 hrs Laboratory Tests Test 11/04/16 12:48 11/04/16 17:36 11/05/16 05:40 11/05/16 08:39 Bedside Glucose 129 199 92 Anion Gap 9 Blood Urea Nitrogen 44 H Calcium Level 9.3 Carbon Dioxide Level 44 *H Chloride Level 93 L Creatinine 1.19 Glucose Level 84 Potassium Level 5.3 H Sodium Level 141 Medications Medications Current Medications IV Flush (NS 10 ml) 10 ml PRN PRN IV IV PROTOCOL; Start 09/28/16 at 14:00 Ondansetron HCl (Zofran Inj) 4 mg Q6H PRN IV NAUSEA AND/OR VOMITING; Start at 15:00 Nitroglycerin (Nitroglycerin (Sl Tab) 0.4 Mg) 1 tab Q5M PRN SL CHEST PAIN; Start 09/28/16 at 15:00 Acetaminophen (Tylenol Liquid) 650 mg Q6H PRN PO PAIN LEVEL 1-3 OR FEVER; Start 09/28/16 at 15:00 Acetaminophen (Tylenol Tab) 650 mg Q6H PRN PO PAIN LEVEL 1-3 OR FEVER Last administered on 10/28/16 09:00; Admin Dose 650 MG; Start 09/28/16 at 15:00 Morphine Sulfate (morphine) 2 mg Q4H PRN IV PAIN LEVEL 7-10 Last administered on 09/29/16 02:30; Admin Dose 2 MG; Start 09/28/16 at 15:00 Lorazepam (Ativan) 1 mg Q2H PRN IV ANXIETY Last administered on 10/29/16 20:56 ; Admin Dose 1 MG; Start 09/28/16 at 15:00 Docusate Sodium (Colace) 100 mg Q12H PRN PO CONSTIPATION; Start 09/28/16 at 15: 00 Famotidine (Pepcid) 20 mg Q12 PO Last administered on 11/05/16 11:25; Admin Dose 20 MG; Start 09/28/16 at 21:00 Aspirin (Aspirin) 81 mg DAILY PO Last administered on 11/05/16 11:22; Admin Dose 81 MG; Start 09/29/16 at 09:00 Atorvastatin Calcium (Lipitor) 10 mg QHS PO Last administered on 11/03/16 21: 09; Admin Dose 10 MG; Start 09/28/16 at 21:00 Tiotropium [place] (Spiriva) 1 inh DAILY INH ; Start 09/28/16 at 16:00; Status Future Hold Mupirocin (Bactroban) 1 applic BID TOP Last administered on 11/04/16 08:24; Admin Dose 1 APPLIC; Start 09/30/16 at 09:00 Diagnostic Test (Pha) (Accucheck) 1 ea 02 XX Last administered on 11/03/16 02: 00; Admin Dose 1 EA; Start 10/05/16 at 02:00 Miscellaneous Information 1 ea NOTE XX ; Start 10/04/16 at 09:00 Glucose (Glutose) 15 gm Q15M PRN PO DECREASED GLUCOSE; Start 10/04/16 at 09:00 Glucose (Glutose) 22.5 gm Q15M PRN PO DECREASED GLUCOSE; Start 10/04/16 at 09: 00 Dextrose (D50w Syringe) 25 ml Q15M PRN IV DECREASED GLUCOSE; Start 10/04/16 at 09:00 Dextrose (D50w Syringe) 50 ml Q15M PRN IV DECREASED GLUCOSE; Start 10/04/16 at 09:00 Glucagon (Glucagen) 1 mg Q15M PRN IM DECREASED GLUCOSE; Start 10/04/16 at 09:00 Glucose (Glutose) 15 gm Q15M PRN BUCCAL DECREASED GLUCOSE; Start 10/04/16 at 09 :00 Metoprolol Tartrate (Lopressor) 5 mg Q4 PRN IV HR>110 Hold SBP<100; Start 10/05 at 19:30 Insulin Glargine (Lantus) 15 unit HS SC Last administered on 11/03/16 21:11; Admin Dose 15 UNIT; Start 10/10/16 at 21:00 Montelukast Sodium (Singulair) 10 mg HS PO Last administered on 11/03/16 21:09 ; Admin Dose 10 MG; Start 10/10/16 at 21:00 Theophylline (Benji-24) 300 mg QHS PO Last administered on 11/03/16 21:08; Admin Dose 300 MG; Start 10/10/16 at 21:00 Apixaban (Eliquis) 5 mg BID PO Last administered on 11/05/16 11:25; Admin Dose 5 MG; Start 10/10/16 at 21:00 Digoxin (Digoxin) 0.125 mg DAILY@13 PO Last administered on 11/04/16 13:08; Admin Dose 0.125 MG; Start 10/12/16 at 13:00 Furosemide (Lasix) 40 mg AM PO Last administered on 11/05/16 11:24; Admin Dose 40 MG; Start 10/25/16 at 09:00 Amiodarone HCl (Cordarone) 200 mg BID PO Last administered on 11/05/16 11:22; Admin Dose 200 MG; Start 10/24/16 at 21:00 Prednisone (Prednisone) 10 mg DAILY PO Last administered on 11/05/16 11:22; Admin Dose 10 MG; Start 10/27/16 at 09:00 Metoprolol Succinate (Toprol Xl) 50 mg DAILY PO Last administered on 11/04/16 08:23; Admin Dose 50 MG; Start 10/28/16 at 09:00 Metoprolol Succinate (Toprol Xl) 50 mg HS PO Last administered on 11/02/16 21: 40; Admin Dose 50 MG; Start 10/28/16 at 21:00 Lisinopril 20 mg 20 mg DAILY PO Last administered on 11/04/16 08:24; Admin Dose 20 MG; Start 10/31/16 at 10:09 Colistimethate Sodium/Sodium Chloride (Coly-Mycin/NS) 100 ml @ 200 mls/hr Q12 IVPB Last administered on 11/05/16 09:01; Admin Dose 200 MLS/HR; Start at 21:00 CODY BRANCH NP Nov 05, 2016 11:46
[2016-11-05] MEDS: MUPIROCIN 2% 22 GM OINT TOP SCH ×2 (11:57→23:33)
--- NOTE | 2016-11-05 14:16 | PN ---
Date/Time of Note Date/Time of Note DATE: 11/05/16 TIME: 14:14 Assessment/Plan VTE Prophylaxis VTE Prophylaxis Intervention: other (eliquis) Lines/Catheters IV Catheter Type (from Nrs): Saline Lock Urinary Cath still in place: No Assessment/Plan Assessment/Plan 1. 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 on colistimethate 2. Urinary retention due to atonic bladder, in-and-out catheter q6h 3. COPD exacerbation, stable, neb, decrease steroid 4. facility acquired pneumonia, with ESBL E. Coli, and Lauren albicans, treated 5. Atrial fibrillation with RVR, sinus now, follow up with cardiology 6. Congestive heart failure, systolic, chronic, stable 7. Ischemic cardiomyopathy 8. CAD 9. s/p ICD, stable 10. Essential hypertension, stable 11. Dyslipidemia. Continue statin. 12. Hx of Foot Fx- stable 13. DVT prophylaxis: eliquis 14. Hyperkalemia, decrease lisinopril, follow up with K Exam/Review of Systems Vital Signs Vitals Vital Signs Date Time Temp Pulse Resp B/P Pulse Ox O2 Delivery O2 Flow Rate FiO2 11/05/16 13:03 78 11/05/16 11:49 97.6 20 132/79 94 11/05/16 07:53 Nasal Cannula 5.0 Intake and Output 11/04/16 11/04/16 11/05/16 15:00 23:00 07:00 Intake Total 100 ml 960 ml 400 ml Output Total 900 ml 1050 ml Balance 100 ml 60 ml -650 ml Results Result Diagram: 11/01/16 0550 11/05/16 0540 Results 24 hrs Laboratory Tests Test 11/04/16 17:36 11/05/16 05:40 11/05/16 08:39 11/05/16 11:38 Bedside Glucose 199 92 147 Anion Gap 9 Blood Urea Nitrogen 44 H Calcium Level 9.3 Carbon Dioxide Level 44 *H Chloride Level 93 L Creatinine 1.19 Glucose Level 84 Potassium Level 5.3 H Sodium Level 141 Medications Medications Current Medications IV Flush (NS 10 ml) 10 ml PRN PRN IV IV PROTOCOL; Start 09/28/16 at 14:00 Ondansetron HCl (Zofran Inj) 4 mg Q6H PRN IV NAUSEA AND/OR VOMITING; Start at 15:00 Nitroglycerin (Nitroglycerin (Sl Tab) 0.4 Mg) 1 tab Q5M PRN SL CHEST PAIN; Start 09/28/16 at 15:00 Acetaminophen (Tylenol Liquid) 650 mg Q6H PRN PO PAIN LEVEL 1-3 OR FEVER; Start 09/28/16 at 15:00 Acetaminophen (Tylenol Tab) 650 mg Q6H PRN PO PAIN LEVEL 1-3 OR FEVER Last administered on 10/28/16 09:00; Admin Dose 650 MG; Start 09/28/16 at 15:00 Morphine Sulfate (morphine) 2 mg Q4H PRN IV PAIN LEVEL 7-10 Last administered on 09/29/16 02:30; Admin Dose 2 MG; Start 09/28/16 at 15:00 Lorazepam (Ativan) 1 mg Q2H PRN IV ANXIETY Last administered on 10/29/16 20:56 ; Admin Dose 1 MG; Start 09/28/16 at 15:00 Docusate Sodium (Colace) 100 mg Q12H PRN PO CONSTIPATION; Start 09/28/16 at 15: 00 Famotidine (Pepcid) 20 mg Q12 PO Last administered on 11/05/16 11:25; Admin Dose 20 MG; Start 09/28/16 at 21:00 Aspirin (Aspirin) 81 mg DAILY PO Last administered on 11/05/16 11:22; Admin Dose 81 MG; Start 09/29/16 at 09:00 Atorvastatin Calcium (Lipitor) 10 mg QHS PO Last administered on 11/03/16 21: 09; Admin Dose 10 MG; Start 09/28/16 at 21:00 Tiotropium [place] (Spiriva) 1 inh DAILY INH ; Start 09/28/16 at 16:00; Status Future Hold Mupirocin (Bactroban) 1 applic BID TOP Last administered on 11/05/16 11:57; Admin Dose 1 APPLIC; Start 09/30/16 at 09:00 Diagnostic Test (Pha) (Accucheck) 1 ea 02 XX Last administered on 11/03/16 02: 00; Admin Dose 1 EA; Start 10/05/16 at 02:00 Miscellaneous Information 1 ea NOTE XX ; Start 10/04/16 at 09:00 Glucose (Glutose) 15 gm Q15M PRN PO DECREASED GLUCOSE; Start 10/04/16 at 09:00 Glucose (Glutose) 22.5 gm Q15M PRN PO DECREASED GLUCOSE; Start 10/04/16 at 09: 00 Dextrose (D50w Syringe) 25 ml Q15M PRN IV DECREASED GLUCOSE; Start 10/04/16 at 09:00 Dextrose (D50w Syringe) 50 ml Q15M PRN IV DECREASED GLUCOSE; Start 10/04/16 at 09:00 Glucagon (Glucagen) 1 mg Q15M PRN IM DECREASED GLUCOSE; Start 10/04/16 at 09:00 Glucose (Glutose) 15 gm Q15M PRN BUCCAL DECREASED GLUCOSE; Start 10/04/16 at 09 :00 Metoprolol Tartrate (Lopressor) 5 mg Q4 PRN IV HR>110 Hold SBP<100; Start 10/05 at 19:30 Insulin Glargine (Lantus) 15 unit HS SC Last administered on 11/03/16 21:11; Admin Dose 15 UNIT; Start 10/10/16 at 21:00 Montelukast Sodium (Singulair) 10 mg HS PO Last administered on 11/03/16 21:09 ; Admin Dose 10 MG; Start 10/10/16 at 21:00 Theophylline (Benji-24) 300 mg QHS PO Last administered on 11/03/16 21:08; Admin Dose 300 MG; Start 10/10/16 at 21:00 Apixaban (Eliquis) 5 mg BID PO Last administered on 11/05/16 11:25; Admin Dose 5 MG; Start 10/10/16 at 21:00 Digoxin (Digoxin) 0.125 mg DAILY@13 PO Last administered on 11/04/16 13:08; Admin Dose 0.125 MG; Start 10/12/16 at 13:00 Furosemide (Lasix) 40 mg AM PO Last administered on 11/05/16 11:24; Admin Dose 40 MG; Start 10/25/16 at 09:00 Amiodarone HCl (Cordarone) 200 mg BID PO Last administered on 11/05/16 11:22; Admin Dose 200 MG; Start 10/24/16 at 21:00 Prednisone (Prednisone) 10 mg DAILY PO Last administered on 11/05/16 11:22; Admin Dose 10 MG; Start 10/27/16 at 09:00 Metoprolol Succinate (Toprol Xl) 50 mg DAILY PO Last administered on 11/04/16 08:23; Admin Dose 50 MG; Start 10/28/16 at 09:00 Metoprolol Succinate (Toprol Xl) 50 mg HS PO Last administered on 11/02/16 21: 40; Admin Dose 50 MG; Start 10/28/16 at 21:00 Lisinopril 20 mg 20 mg DAILY PO Last administered on 11/04/16 08:24; Admin Dose 20 MG; Start 10/31/16 at 10:09 Colistimethate Sodium/Sodium Chloride (Coly-Mycin/NS) 100 ml @ 200 mls/hr Q12 IVPB Last administered on 11/05/16 09:01; Admin Dose 200 MLS/HR; Start at 21:00 FUNMI MEZA MD Nov 05, 2016 14:16
[2016-11-05] MEDS: METOPROLOL (XL) 25 MG TAB PO SCH ×2 (14:19→21:00)
[2016-11-05] MEDS: DIGOXIN 0.125 MG TAB PO SCH (14:36)
[2016-11-05] MEDS: predniSONE 2.5 MG TAB PO SCH (18:25)
--- NOTE | 2016-11-05 19:45 | CONS ---
Date/Time of Note Date/Time of Note DATE: 11/05/16 TIME: 19:42 Assessment/Plan Assessment/Plan Chief Complaint/Hosp Course IMPRESSION: 1. Atrial fibrillation with rapid ventricular response.-improved HR and now back in SR by tele 2. Congestive heart failure, systolic, acute on chronic. 3. History of cardiomyopathy with decreased left ventricular ejection fraction 20% to 25% per chart biopsy. 4. Shortness of breath. 5. Status post hypercapnic respiratory failure, status post extubation. 6. Chronic obstructive pulmonary disease. 7. Hypertension. 8. Dyslipidemia. 9. History of automatic implantable cardioverter-defibrillator with possible discharge.-s/p interrogation with ICD shock for uncontrolled rapid AF. 10. Pneumonia. 11.Positive troponin-minimal with no sig uptrend 12.UTI-Klebs 14.Bacteremia-Klebs/persistent Recc -Tele -Continue asa/Eliquis -ACEI/BB as tolerated -Continue digoxin -Continue statin -Follow volume status and will change lasix to daily -Continue abx's and f/u cx data and -awaiting placement Problems: Consultation Date/Type/Reason Admit Date/Time Sep 28, 2016 at 14:41 Initial Consult Date 09/28/16 Type of Consultation: Cardiology Reason for Consultation cardiomyopathy/ICD discharge Referring Provider: DEVON MUHAMMAD MD Exam/Review of Systems Vital Signs Vitals Vital Signs Date Time Temp Pulse Resp B/P Pulse Ox O2 Delivery O2 Flow Rate FiO2 11/05/16 17:32 59 11/05/16 16:39 5.0 11/05/16 15:55 97.3 20 132/67 94 11/05/16 14:23 Nasal Cannula Intake and Output 11/04/16 11/04/16 11/05/16 15:00 23:00 07:00 Intake Total 100 ml 960 ml 400 ml Output Total 900 ml 1050 ml Balance 100 ml 60 ml -650 ml Exam Review of Systems: CONSTITUTIONAL: No fevers, chills. PULMONARY: No sob CARDIOVASCULAR: No chest pain/palpitations GASTROINTESTINAL: No nausea/vomiting. GENITOURINARY: No hematuria/dysuria. MUSCULOSKELETAL: No myagias/arthalgias. PSYCHIATRIC: The patient denies depression. NEUROLOGIC: No weakness Constitutional: alert Psych: no complaints Head: normocephalic ENMT: mucosa pink and moist Neck: jvd (9 cm water), supple Respiratory: diminished breath sounds (at bases/B) Cardiovascular: regular rate and rhythm Gastrointestinal: non-tender, soft Musculoskeletal: muscle tone (normal) Extremities: edema (none), other (footin boot) Neurological: other (No focal deficits) Results Result Diagram: 11/01/16 0550 11/05/16 0540 Results 24 hrs Laboratory Tests Test 11/05/16 05:40 11/05/16 08:39 11/05/16 11:38 11/05/16 17:22 Anion Gap 9 Blood Urea Nitrogen 44 H Calcium Level 9.3 Carbon Dioxide Level 44 *H Chloride Level 93 L Creatinine 1.19 Glucose Level 84 Potassium Level 5.3 H Sodium Level 141 Bedside Glucose 92 147 174 Medications Medications Current Medications IV Flush (NS 10 ml) 10 ml PRN PRN IV IV PROTOCOL; Start 09/28/16 at 14:00 Ondansetron HCl (Zofran Inj) 4 mg Q6H PRN IV NAUSEA AND/OR VOMITING; Start at 15:00 Nitroglycerin (Nitroglycerin (Sl Tab) 0.4 Mg) 1 tab Q5M PRN SL CHEST PAIN; Start 09/28/16 at 15:00 Acetaminophen (Tylenol Liquid) 650 mg Q6H PRN PO PAIN LEVEL 1-3 OR FEVER; Start 09/28/16 at 15:00 Acetaminophen (Tylenol Tab) 650 mg Q6H PRN PO PAIN LEVEL 1-3 OR FEVER Last administered on 10/28/16 09:00; Admin Dose 650 MG; Start 09/28/16 at 15:00 Morphine Sulfate (morphine) 2 mg Q4H PRN IV PAIN LEVEL 7-10 Last administered on 09/29/16 02:30; Admin Dose 2 MG; Start 09/28/16 at 15:00 Lorazepam (Ativan) 1 mg Q2H PRN IV ANXIETY Last administered on 10/29/16 20:56 ; Admin Dose 1 MG; Start 09/28/16 at 15:00 Docusate Sodium (Colace) 100 mg Q12H PRN PO CONSTIPATION; Start 09/28/16 at 15: 00 Famotidine (Pepcid) 20 mg Q12 PO Last administered on 11/05/16 11:25; Admin Dose 20 MG; Start 09/28/16 at 21:00 Aspirin (Aspirin) 81 mg DAILY PO Last administered on 11/05/16 11:22; Admin Dose 81 MG; Start 09/29/16 at 09:00 Atorvastatin Calcium (Lipitor) 10 mg QHS PO Last administered on 11/03/16 21: 09; Admin Dose 10 MG; Start 09/28/16 at 21:00 Tiotropium [place] (Spiriva) 1 inh DAILY INH ; Start 09/28/16 at 16:00; Status Future Hold Mupirocin (Bactroban) 1 applic BID TOP Last administered on 11/05/16 11:57; Admin Dose 1 APPLIC; Start 09/30/16 at 09:00 Diagnostic Test (Pha) (Accucheck) 1 ea 02 XX Last administered on 11/03/16 02: 00; Admin Dose 1 EA; Start 10/05/16 at 02:00 Miscellaneous Information 1 ea NOTE XX ; Start 10/04/16 at 09:00 Glucose (Glutose) 15 gm Q15M PRN PO DECREASED GLUCOSE; Start 10/04/16 at 09:00 Glucose (Glutose) 22.5 gm Q15M PRN PO DECREASED GLUCOSE; Start 10/04/16 at 09: 00 Dextrose (D50w Syringe) 25 ml Q15M PRN IV DECREASED GLUCOSE; Start 10/04/16 at 09:00 Dextrose (D50w Syringe) 50 ml Q15M PRN IV DECREASED GLUCOSE; Start 10/04/16 at 09:00 Glucagon (Glucagen) 1 mg Q15M PRN IM DECREASED GLUCOSE; Start 10/04/16 at 09:00 Glucose (Glutose) 15 gm Q15M PRN BUCCAL DECREASED GLUCOSE; Start 10/04/16 at 09 :00 Metoprolol Tartrate (Lopressor) 5 mg Q4 PRN IV HR>110 Hold SBP<100; Start 10/05 at 19:30 Insulin Glargine (Lantus) 15 unit HS SC Last administered on 11/03/16 21:11; Admin Dose 15 UNIT; Start 10/10/16 at 21:00 Montelukast Sodium (Singulair) 10 mg HS PO Last administered on 11/03/16 21:09 ; Admin Dose 10 MG; Start 10/10/16 at 21:00 Theophylline (Benji-24) 300 mg QHS PO Last administered on 11/03/16 21:08; Admin Dose 300 MG; Start 10/10/16 at 21:00 Apixaban (Eliquis) 5 mg BID PO Last administered on 11/05/16 11:25; Admin Dose 5 MG; Start 10/10/16 at 21:00 Digoxin (Digoxin) 0.125 mg DAILY@13 PO Last administered on 11/05/16 14:36; Admin Dose 0.125 MG; Start 10/12/16 at 13:00 Furosemide (Lasix) 40 mg AM PO Last administered on 11/05/16 11:24; Admin Dose 40 MG; Start 10/25/16 at 09:00 Amiodarone HCl (Cordarone) 200 mg BID PO Last administered on 11/05/16 11:22; Admin Dose 200 MG; Start 10/24/16 at 21:00 Prednisone (Prednisone) 10 mg DAILY PO Last administered on 11/05/16 11:22; Admin Dose 10 MG; Start 10/27/16 at 09:00 Metoprolol Succinate (Toprol Xl) 50 mg DAILY PO Last administered on 11/05/16 14:19; Admin Dose 50 MG; Start 10/28/16 at 09:00 Metoprolol Succinate 50 mg 50 mg HS PO Last administered on 11/02/16 21:40; Admin Dose 50 MG; Start 10/28/16 at 21:00 Colistimethate Sodium/Sodium Chloride (Coly-Mycin/NS) 100 ml @ 200 mls/hr Q12 IVPB Last administered on 11/05/16 09:01; Admin Dose 200 MLS/HR; Start at 21:00 Lisinopril (Zestril) 10 mg DAILY PO ; Start 11/06/16 at 09:00 СВЕТЛАНА PADRON Nov 05, 2016 19:45
--- NOTE | 2016-11-05 21:24 | PN ---
DATE: 11/05/2016 SUBJECTIVE: Urinary retention and urinary tract infection and patient does have bilateral hydroneph rosis. Because of the urinary retention and he has sediment at the bottom of his bladder, he contin ues to have urinary tract infection. OBJECTIVE: His temperature today is 97.3, pulse is 63, respirations 20, blood pressure 132/67. The nurses were going to do in-and-out cath on him, and there are times that he has refused to be se lf-catheterized. I have talked to him and told him that he has to let the nurses catheterize him. Otherwise, we will have to put a Purett catheter and leave it there all the time. He promised that h e will let the nurses catheterize him. LABORATORY DATA: His white count is high at 18.3. We will have to repeat that. His BUN is 44, crea tinine 1.19, sodium 141, potassium 5.3, chloride 93. IMPRESSION: 1. Urinary retention, neurogenic bladder. 2. The patient does have urinary tract infection. PLAN: Continue the in-and-out catheterization q.6 hours and continue his antibiotic. If the patien t refuses to have in-and-out catheterization, then we have to insert a Pruett catheter and leave it i n. Dictated By: JOSÉ DOS SANTOS/NANDO Conf#: [id number] DID#: [id number]
[2016-11-05] MEDS: THEOPHYLLINE (SR) 300 MG CAP PO SCH (22:22)
[2016-11-05] MEDS: ATORVASTATIN 10 MG TAB PO SCH (22:22)
[2016-11-05] MEDS: MONTELUKAST 10 MG TAB PO SCH (22:23)
[2016-11-05] MEDS: INSULIN GLARGINE [LANtus] 3 ML PEN SC SCH (23:46)
[2016-11-06] VITALS (14 sets, daily range): BP systolic 97–120; BP diastolic 54–74; PULSE 59–99; RESP 17–19
[2016-11-06] MEDS: ACCU-CHEK XX SCH (02:00)
[2016-11-06] MEDS: ALBUTEROL/IPRATROPIUM (NEB) 3 ML AMP HHN SCH ×4 (02:03→21:08)
[2016-11-06 06:58] LABS: ADD SCAN DIFF NO
[2016-11-06 07:10] LABS: ABNORMAL IP MESSAGE 1; BASOPHILS % 0.2 % (0.0-2.0); EOSINOPHILS # 0.1 10^3/ul (0.0-0.5); EOSINOPHILS % 0.3 % (0.0-7.0); HEMATOCRIT 30.6 % (42.0-52.0); HEMOGLOBIN 9.2 g/dl (14.0-18.0); LYMPHOCYTES # 1.4 10^3/ul (0.8-2.9); LYMPHOCYTES % 7.3 % (15.0-51.0); MEAN CORPUSCULAR HEMOGLOBIN 31.6 pg (29.0-33.0); MEAN CORPUSCULAR HGB CONC 30.1 g/dl (32.0-37.0); MEAN CORPUSCULAR VOLUME 105.2 fl (82.0-101.0); MEAN PLATELET VOLUME 9.3 fl (7.4-10.4); MONOCYTE # 1.3 10^3/ul (0.3-0.9); MONOCYTES % 6.7 % (0.0-11.0); NEUTROPHIL # 13.8 10^3/ul (1.6-7.5); NEUTROPHILS % 72.8 % (39.0-77.0); PLATELET COUNT 519 10^3/UL (140-415); RED BLOOD COUNT 2.91 10^6/ul (4.70-6.10); RED CELL DISTRIBUTION WIDTH 15.2 % (11.5-14.5); WHITE BLOOD COUNT 18.9 10^3/ul (4.8-10.8)
[2016-11-06 07:18] LABS: POTASSIUM 5.1 mmol/L (3.5-5.1)
[2016-11-06 07:19] LABS: CREATININE 1.08 mg/dl (0.61-1.24)
[2016-11-06 07:22] LABS: CALCIUM 9.8 mg/dl (8.4-10.2)
[2016-11-06] MEDS: INSULIN ASPART [NOVOLOG] 3 ML PEN SC SCH ×7 (08:00→20:22)
[2016-11-06] MEDS: predniSONE 10 MG TAB PO SCH (08:51)
[2016-11-06] MEDS: ASPIRIN 81 MG TAB PO SCH (08:51)
[2016-11-06] MEDS: MUPIROCIN 2% 22 GM OINT TOP SCH ×2 (08:52→20:22)
[2016-11-06] MEDS: APIXABAN 5 MG TABLET PO SCH ×2 (08:54→20:12)
[2016-11-06] MEDS: FUROSEMIDE 40 MG TAB PO SCH (08:55)
[2016-11-06] MEDS: FAMOTIDINE 20 MG TAB PO SCH ×2 (08:55→20:14)
[2016-11-06] MEDS: LISINOPRIL 10 MG TAB PO SCH (08:56)
[2016-11-06] MEDS: AMIODARONE 200 MG TAB PO SCH ×2 (08:56→20:14)
[2016-11-06] MEDS: METOPROLOL (XL) 25 MG TAB PO SCH ×2 (08:56→20:15)
[2016-11-06] MEDS: COLISTIMETHATE 75 MG in SOD CHLORIDE 0.9% 100 ML IVPB SCH ×2 (09:04→20:13)
--- NOTE | 2016-11-06 10:53 | CONS ---
Date/Time of Note Date/Time of Note DATE: 11/06/16 TIME: 10:52 Assessment/Plan Assessment/Plan Chief Complaint/Hosp Course SUBJECTIVE: No events overnight. The patient is alert, looks comfortable, no fevers. ANTIMICROBIALS: The patient is on IV Colistin. PHYSICAL EXAMINATION: GENERAL: Well-developed, fragile, elderly man in no distress. HEENT: Head atraumatic, normocephalic. Sclerae anicteric. Buccal mucosa dry. NECK: Supple. CHEST: Rise symmetrical. Breath sounds clear, diminished to bases. HEART: S1, S2. ABDOMEN: Soft, bowel sounds present. EXTREMITIES: No cyanosis. ASSESSMENT: 1. Sepsis, resolving. 2. Multidrug resistant Klebsiella pneumoniae 2 to #3. 3. Urinary tract infection with bacteremia, persistent. 4. Urinary retention. 5. Bilateral hydronephrosis. 6. Chronic obstructive pulmonary disease, status post pneumonia. 7. Coronary artery disease, history of automatic implantable cardioverter defibrillator, status post interrogation. PLAN: The patient remains stable, pending repeat bld cx, continue abx, monitor renal f-n, f/u urology rec-s==> straight cath prn, s/p Pruett dc'd dw staff Problems: Consultation Date/Type/Reason Admit Date/Time Sep 28, 2016 at 14:41 Initial Consult Date 09/28/16 Type of Consultation: ID Referring Provider: DEVON MUHAMMAD MD Exam/Review of Systems Vital Signs Vitals Vital Signs Date Time Temp Pulse Resp B/P Pulse Ox O2 Delivery O2 Flow Rate FiO2 11/06/16 08:56 73 11/06/16 08:17 92 4.0 11/06/16 08:17 18 Nasal Cannula 11/06/16 07:45 98.1 110/54 Intake and Output 11/05/16 11/05/16 11/06/16 15:00 23:00 07:00 Intake Total 900 ml 700 ml Output Total 1500 ml 550 ml Balance -600 ml 150 ml Results Result Diagram: 11/06/16 0630 11/06/16 0630 Results 24 hrs Laboratory Tests Test 11/05/16 11:38 11/05/16 17:22 11/05/16 22:36 11/06/16 06:30 Bedside Glucose 147 174 129 Anion Gap 10 Basophils # 0.0 Basophils % 0.2 Blood Urea Nitrogen 37 H Calcium Level 9.8 Carbon Dioxide Level 42 *H Chloride Level 95 L Creatinine 1.08 Eosinophils # 0.1 Eosinophils % 0.3 Glucose Level 91 Hematocrit 30.6 L Hemoglobin 9.2 L Lymphocytes # 1.4 Lymphocytes % 7.3 L Mean Corpuscular Hemoglobin 31.6 Mean Corpuscular Hemoglobin Concent 30.1 L Mean Corpuscular Volume 105.2 H Mean Platelet Volume 9.3 Monocytes # 1.3 H Monocytes % 6.7 Neutrophils # 13.8 H Neutrophils % 72.8 Nucleated Red Blood Cells # 0.0 Nucleated Red Blood Cells % 0.0 Platelet Count 519 #H Potassium Level 5.1 Red Blood Count 2.91 L Red Cell Distribution Width 15.2 H Sodium Level 142 White Blood Count 18.9 H Test 11/06/16 08:50 Bedside Glucose 108 Medications Medications Current Medications IV Flush (NS 10 ml) 10 ml PRN PRN IV IV PROTOCOL; Start 09/28/16 at 14:00 Ondansetron HCl (Zofran Inj) 4 mg Q6H PRN IV NAUSEA AND/OR VOMITING; Start at 15:00 Nitroglycerin (Nitroglycerin (Sl Tab) 0.4 Mg) 1 tab Q5M PRN SL CHEST PAIN; Start 09/28/16 at 15:00 Acetaminophen (Tylenol Liquid) 650 mg Q6H PRN PO PAIN LEVEL 1-3 OR FEVER; Start 09/28/16 at 15:00 Acetaminophen (Tylenol Tab) 650 mg Q6H PRN PO PAIN LEVEL 1-3 OR FEVER Last administered on 10/28/16 09:00; Admin Dose 650 MG; Start 09/28/16 at 15:00 Morphine Sulfate (morphine) 2 mg Q4H PRN IV PAIN LEVEL 7-10 Last administered on 09/29/16 02:30; Admin Dose 2 MG; Start 09/28/16 at 15:00 Lorazepam (Ativan) 1 mg Q2H PRN IV ANXIETY Last administered on 10/29/16 20:56 ; Admin Dose 1 MG; Start 09/28/16 at 15:00 Docusate Sodium (Colace) 100 mg Q12H PRN PO CONSTIPATION; Start 09/28/16 at 15: 00 Famotidine (Pepcid) 20 mg Q12 PO Last administered on 11/06/16 08:55; Admin Dose 20 MG; Start 09/28/16 at 21:00 Aspirin (Aspirin) 81 mg DAILY PO Last administered on 11/06/16 08:51; Admin Dose 81 MG; Start 09/29/16 at 09:00 Atorvastatin Calcium (Lipitor) 10 mg QHS PO Last administered on 11/05/16 22:22 ; Admin Dose 10 MG; Start 09/28/16 at 21:00 Tiotropium [place] (Spiriva) 1 inh DAILY INH ; Start 09/28/16 at 16:00; Status Future Hold Mupirocin (Bactroban) 1 applic BID TOP Last administered on 11/06/16 08:52; Admin Dose 1 APPLIC; Start 09/30/16 at 09:00 Diagnostic Test (Pha) (Accucheck) 1 ea 02 XX Last administered on 11/03/16 02: 00; Admin Dose 1 EA; Start 10/05/16 at 02:00 Miscellaneous Information 1 ea NOTE XX ; Start 10/04/16 at 09:00 Glucose (Glutose) 15 gm Q15M PRN PO DECREASED GLUCOSE; Start 10/04/16 at 09:00 Glucose (Glutose) 22.5 gm Q15M PRN PO DECREASED GLUCOSE; Start 10/04/16 at 09: 00 Dextrose (D50w Syringe) 25 ml Q15M PRN IV DECREASED GLUCOSE; Start 10/04/16 at 09:00 Dextrose (D50w Syringe) 50 ml Q15M PRN IV DECREASED GLUCOSE; Start 10/04/16 at 09:00 Glucagon (Glucagen) 1 mg Q15M PRN IM DECREASED GLUCOSE; Start 10/04/16 at 09:00 Glucose (Glutose) 15 gm Q15M PRN BUCCAL DECREASED GLUCOSE; Start 10/04/16 at 09 :00 Metoprolol Tartrate (Lopressor) 5 mg Q4 PRN IV HR>110 Hold SBP<100; Start 10/05 at 19:30 Insulin Glargine (Lantus) 15 unit HS SC Last administered on 11/05/16 23:46; Admin Dose 15 UNIT; Start 10/10/16 at 21:00 Montelukast Sodium (Singulair) 10 mg HS PO Last administered on 11/05/16 22:23 ; Admin Dose 10 MG; Start 10/10/16 at 21:00 Theophylline (Benji-24) 300 mg QHS PO Last administered on 11/05/16 22:22; Admin Dose 300 MG; Start 10/10/16 at 21:00 Apixaban (Eliquis) 5 mg BID PO Last administered on 11/06/16 08:54; Admin Dose 5 MG; Start 10/10/16 at 21:00 Digoxin (Digoxin) 0.125 mg DAILY@13 PO Last administered on 11/05/16 14:36; Admin Dose 0.125 MG; Start 10/12/16 at 13:00 Furosemide (Lasix) 40 mg AM PO Last administered on 11/06/16 08:55; Admin Dose 40 MG; Start 10/25/16 at 09:00 Amiodarone HCl (Cordarone) 200 mg BID PO Last administered on 11/06/16 08:56; Admin Dose 200 MG; Start 10/24/16 at 21:00 Prednisone (Prednisone) 10 mg DAILY PO Last administered on 11/06/16 08:51; Admin Dose 10 MG; Start 10/27/16 at 09:00 Metoprolol Succinate (Toprol Xl) 50 mg DAILY PO Last administered on 11/06/16 08:56; Admin Dose 50 MG; Start 10/28/16 at 09:00 Metoprolol Succinate 50 mg 50 mg HS PO Last administered on 11/02/16 21:40; Admin Dose 50 MG; Start 10/28/16 at 21:00 Colistimethate Sodium/Sodium Chloride (Coly-Mycin/NS) 100 ml @ 200 mls/hr Q12 IVPB Last administered on 11/06/16 09:04; Admin Dose 200 MLS/HR; Start at 21:00 Lisinopril (Zestril) 10 mg DAILY PO Last administered on 11/06/16 08:56; Admin Dose 10 MG; Start 11/06/16 at 09:00 CODY BRANCH NP Nov 06, 2016 10:53
[2016-11-06] MEDS: DIGOXIN 0.125 MG TAB PO SCH (12:47)
--- NOTE | 2016-11-06 14:25 | PN ---
Date/Time of Note Date/Time of Note DATE: 11/06/16 TIME: 14:23 Assessment/Plan VTE Prophylaxis VTE Prophylaxis Intervention: other (eliquis) Lines/Catheters IV [facility] [place] Urinary Cath still in place: No Assessment/Plan Assessment/Plan 1. 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 on colistimethate 2. Urinary retention due to atonic bladder, in-and-out catheter q6h 3. COPD exacerbation, stable, neb, decrease steroid 4. facility acquired pneumonia, with ESBL E. Coli, and Lauren albicans, treated 5. Atrial fibrillation with RVR, sinus now, follow up with cardiology 6. Congestive heart failure, systolic, chronic, stable 7. Ischemic cardiomyopathy 8. CAD 9. s/p ICD, stable 10. Essential hypertension, stable 11. Dyslipidemia. Continue statin. 12. Hx of Foot Fx- stable 13. DVT prophylaxis: eliquis Subjective 24 Hr Interval Summary Free Text/Dictation no complaint, afebrile. ok with in-and-out catheter Exam/Review of Systems Vital Signs Vitals Vital Signs Date Time Temp Pulse Resp B/P Pulse Ox O2 Delivery O2 Flow Rate FiO2 11/06/16 14:11 91 4.0 11/06/16 14:11 61 20 Nasal Cannula 11/06/16 11:41 97.5 97/59 Intake and Output 11/05/16 11/05/16 11/06/16 15:00 23:00 07:00 Intake Total 900 ml 700 ml Output Total 1500 ml 550 ml Balance -600 ml 150 ml Exam Constitutional: alert, oriented, well developed Psych: nl mood/affect, no complaints Head: atraumatic, normocephalic Eyes: EOMI, PERRL, nl conjunctiva, nl lids ENMT: nl external ears & nose, nl lips & teeth, nl nasal mucosa & septum Neck: non-tender, supple Respiratory: clear to auscultation, normal air movement, No congested cough, No crackles/rales, No diminished breath sounds, No intercostal retraction, No labored breathing, No other, No respirations, No tactile fremitus, No wheezing Cardiovascular: nl pulses, regular rate and rhythm, No S3, No S4, No bruits, No diastolic murmur, No edema, No gallop, No irregular rhythm, No jugular venous distention (JVD), No murmurs/extra sounds, No other, No rub, No systolic murmur Gastrointestinal: nl liver, spleen, non-tender, soft, No ascites, No bowel sounds, No distended, No firm, No hepatomegaly, No mass , No other, No rebound or guarding, No splenomegaly, No surgical scars, No tender Musculoskeletal: nl extremities to inspection Extremities: normal pulses, No calf tenderness, No clubbing, No cyanosis, No edema, No other, No palpable cord, No pitting pedal edema, No tenderness Neurological: [employer] II-XII intact, nl mental status, nl speech, nl strength Skin: nl turgor Lymph: nl lymph nodes Results Result Diagram: 11/06/16 0630 11/06/16 0630 Results 24 hrs Laboratory Tests Test 11/05/16 17:22 11/05/16 22:36 11/06/16 06:30 11/06/16 08:50 Bedside Glucose 174 129 108 Anion Gap 10 Basophils # 0.0 Basophils % 0.2 Blood Urea Nitrogen 37 H Calcium Level 9.8 Carbon Dioxide Level 42 *H Chloride Level 95 L Creatinine 1.08 Eosinophils # 0.1 Eosinophils % 0.3 Glucose Level 91 Hematocrit 30.6 L Hemoglobin 9.2 L Lymphocytes # 1.4 Lymphocytes % 7.3 L Mean Corpuscular Hemoglobin 31.6 Mean Corpuscular Hemoglobin Concent 30.1 L Mean Corpuscular Volume 105.2 H Mean Platelet Volume 9.3 Monocytes # 1.3 H Monocytes % 6.7 Neutrophils # 13.8 H Neutrophils % 72.8 Nucleated Red Blood Cells # 0.0 Nucleated Red Blood Cells % 0.0 Platelet Count 519 #H Potassium Level 5.1 Red Blood Count 2.91 L Red Cell Distribution Width 15.2 H Sodium Level 142 White Blood Count 18.9 H Test 11/06/16 12:44 Bedside Glucose 173 Medications Medications Current Medications IV Flush (NS 10 ml) 10 ml PRN PRN IV IV PROTOCOL; Start 09/28/16 at 14:00 Ondansetron HCl (Zofran Inj) 4 mg Q6H PRN IV NAUSEA AND/OR VOMITING; Start at 15:00 Nitroglycerin (Nitroglycerin (Sl Tab) 0.4 Mg) 1 tab Q5M PRN SL CHEST PAIN; Start 09/28/16 at 15:00 Acetaminophen (Tylenol Liquid) 650 mg Q6H PRN PO PAIN LEVEL 1-3 OR FEVER; Start 09/28/16 at 15:00 Acetaminophen (Tylenol Tab) 650 mg Q6H PRN PO PAIN LEVEL 1-3 OR FEVER Last administered on 10/28/16 09:00; Admin Dose 650 MG; Start 09/28/16 at 15:00 Morphine Sulfate (morphine) 2 mg Q4H PRN IV PAIN LEVEL 7-10 Last administered on 09/29/16 02:30; Admin Dose 2 MG; Start 09/28/16 at 15:00 Lorazepam (Ativan) 1 mg Q2H PRN IV ANXIETY Last administered on 10/29/16 20:56 ; Admin Dose 1 MG; Start 09/28/16 at 15:00 Docusate Sodium (Colace) 100 mg Q12H PRN PO CONSTIPATION; Start 09/28/16 at 15: 00 Famotidine (Pepcid) 20 mg Q12 PO Last administered on 11/06/16 08:55; Admin Dose 20 MG; Start 09/28/16 at 21:00 Aspirin (Aspirin) 81 mg DAILY PO Last administered on 11/06/16 08:51; Admin Dose 81 MG; Start 09/29/16 at 09:00 Atorvastatin Calcium (Lipitor) 10 mg QHS PO Last administered on 11/05/16 22:22 ; Admin Dose 10 MG; Start 09/28/16 at 21:00 Tiotropium [place] (Spiriva) 1 inh DAILY INH ; Start 09/28/16 at 16:00; Status Future Hold Mupirocin (Bactroban) 1 applic BID TOP Last administered on 11/06/16 08:52; Admin Dose 1 APPLIC; Start 09/30/16 at 09:00 Diagnostic Test (Pha) (Accucheck) 1 ea 02 XX Last administered on 11/03/16 02: 00; Admin Dose 1 EA; Start 10/05/16 at 02:00 Miscellaneous Information 1 ea NOTE XX ; Start 10/04/16 at 09:00 Glucose (Glutose) 15 gm Q15M PRN PO DECREASED GLUCOSE; Start 10/04/16 at 09:00 Glucose (Glutose) 22.5 gm Q15M PRN PO DECREASED GLUCOSE; Start 10/04/16 at 09: 00 Dextrose (D50w Syringe) 25 ml Q15M PRN IV DECREASED GLUCOSE; Start 10/04/16 at 09:00 Dextrose (D50w Syringe) 50 ml Q15M PRN IV DECREASED GLUCOSE; Start 10/04/16 at 09:00 Glucagon (Glucagen) 1 mg Q15M PRN IM DECREASED GLUCOSE; Start 10/04/16 at 09:00 Glucose (Glutose) 15 gm Q15M PRN BUCCAL DECREASED GLUCOSE; Start 10/04/16 at 09 :00 Metoprolol Tartrate (Lopressor) 5 mg Q4 PRN IV HR>110 Hold SBP<100; Start 10/05 at 19:30 Insulin Glargine (Lantus) 15 unit HS SC Last administered on 11/05/16 23:46; Admin Dose 15 UNIT; Start 10/10/16 at 21:00 Montelukast Sodium (Singulair) 10 mg HS PO Last administered on 11/05/16 22:23 ; Admin Dose 10 MG; Start 10/10/16 at 21:00 Theophylline (Benji-24) 300 mg QHS PO Last administered on 11/05/16 22:22; Admin Dose 300 MG; Start 10/10/16 at 21:00 Apixaban (Eliquis) 5 mg BID PO Last administered on 11/06/16 08:54; Admin Dose 5 MG; Start 10/10/16 at 21:00 Digoxin (Digoxin) 0.125 mg DAILY@13 PO Last administered on 11/06/16 12:47; Admin Dose 0.125 MG; Start 10/12/16 at 13:00 Furosemide (Lasix) 40 mg AM PO Last administered on 11/06/16 08:55; Admin Dose 40 MG; Start 10/25/16 at 09:00 Amiodarone HCl (Cordarone) 200 mg BID PO Last administered on 11/06/16 08:56; Admin Dose 200 MG; Start 10/24/16 at 21:00 Prednisone (Prednisone) 10 mg DAILY PO Last administered on 11/06/16 08:51; Admin Dose 10 MG; Start 10/27/16 at 09:00 Metoprolol Succinate (Toprol Xl) 50 mg DAILY PO Last administered on 11/06/16 08:56; Admin Dose 50 MG; Start 10/28/16 at 09:00 Metoprolol Succinate 50 mg 50 mg HS PO Last administered on 11/02/16 21:40; Admin Dose 50 MG; Start 10/28/16 at 21:00 Colistimethate Sodium/Sodium Chloride (Coly-Mycin/NS) 100 ml @ 200 mls/hr Q12 IVPB Last administered on 11/06/16 09:04; Admin Dose 200 MLS/HR; Start at 21:00 Lisinopril (Zestril) 10 mg DAILY PO Last administered on 11/06/16 08:56; Admin Dose 10 MG; Start 11/06/16 at 09:00 FUNMI MEZA MD Nov 06, 2016 14:25
[2016-11-06] MEDS: predniSONE 2.5 MG TAB PO SCH (17:36)
[2016-11-06] MEDS: ATORVASTATIN 10 MG TAB PO SCH (20:13)
[2016-11-06] MEDS: THEOPHYLLINE (SR) 300 MG CAP PO SCH (20:13)
[2016-11-06] MEDS: MONTELUKAST 10 MG TAB PO SCH (20:13)
[2016-11-06] MEDS: INSULIN GLARGINE [LANtus] 3 ML PEN SC SCH (20:19)
[2016-11-07] MEDS: ALBUTEROL/IPRATROPIUM (NEB) 3 ML AMP HHN SCH ×4 (02:00→19:39)
[2016-11-07] MEDS: ACCU-CHEK XX SCH (02:00)
[2016-11-07] MEDS: ACETAMINOPHEN 650MG/20.3ML CUP PO PRN (05:09)
--- NOTE | 2016-11-07 06:22 | PN ---
DATE: 11/06/2016 SUBJECTIVE: Urinary retention and new persistent urinary tract infection. The patient has been non cooperative. In essence, he refused to have the nurse do the straight cath on multiple occasions and this morning he was catheterized and 900 mL drained out. Even though I talked to him yesterday, I told him how important it is to drain his bladder to get all the infected urine out, he still is tanisha y [place] and there are times that he tried to postpone the catheterization and another times he refus es it. OBJECTIVE FINDINGS: VITAL SIGNS: His temperature is 99.0, pulse is 67, respirations 19, blood pressure 115/64. LABORATORY DATA: His BUN is 37. Creatinine 1.08, it is improving from what it was. CBC still show s leukocytosis with white blood cells of 18.9, hemoglobin 9.2, hematocrit 30.6. The urine culture do ne from 2 days ago is showing 100,000 colonies per mL of gram-negative rods. The sensitivity is pen ding. IMPRESSION: Again, persistent urinary tract infection because of urinary retention. RECOMMENDATION: Continue doing the in-and-out cath every 6 hours and if he does not want the nurses to do that every 6 hours, then we have to put in the catheter and leave it in and treat his infecti on. Dictated By: JOSÉ DOS SANTOS/NANDO Conf#: [id number] DID#: [id number]
[2016-11-07 06:34] LABS: POTASSIUM 4.5 mmol/L (3.5-5.1)
[2016-11-07 06:37] LABS: CREATININE 1.11 mg/dl (0.61-1.24)
[2016-11-07 06:38] LABS: CALCIUM 9.6 mg/dl (8.4-10.2)
--- NOTE | 2016-11-07 06:43 | PN ---
Date/Time of Note Date/Time of Note DATE: 11/07/16 TIME: 06:38 Assessment/Plan VTE Prophylaxis VTE Prophylaxis Intervention: other Lines/Catheters IV Catheter Type (from [facility]): Saline Lock Urinary Cath still in place: No Reason Cath still needed: urinary retention Assessment/Plan Problems: (1) COPD with acute exacerbation Status: Chronic Comment: He is well compensated and stable over the course of the recent past. He should resume his Advair and we can start titrating down on the steroids. His present dosage of prednisone is superphysiologic will wind that down towards a titration to a physiologic replacement level. At that point he will need to be held there due to the l possibility of iatrogenic adrenal insufficiency. At this point in time this issue is important but stable and compensated (2) Foot fracture, right Status: Chronic Comment: He is wearing the boot and is rehabilitating well Qualifiers: Encounter type: initial encounter Fracture type: closed Qualified Code: S92.901A - Foot fracture, right, closed, initial encounter (3) Diabetes mellitus type 2 in nonobese Status: Chronic Comment: This is well controlled. Please note as we start to back down on the supraphysiologic dosing of steroids we may need to down grade the medications for sugar (4) Hypertension Status: Chronic Comment: This is adequately controlled. Please note that the patient has heart failure and as such the medications need to be optimized in that regard as well Qualifiers: Hypertension type: essential hypertension Qualified Code: I10 - Essential hypertension (5) Hyperlipidemia associated with type 2 diabetes mellitus Status: Chronic Comment: Stable on treatment (6) Systolic CHF with reduced left ventricular function, NYHA class 3 Status: Chronic Comment: Well compensated on medication regimen (7) Atrial fibrillation Status: Chronic Comment: Well compensated and controlled on her medication regimen Qualifiers: Atrial fibrillation type: chronic Qualified Code: I48.2 - Chronic atrial fibrillation (8) Neurogenic bladder, flaccid Status: Acute Comment: Please see the dictations of urology. We will try and get him to cooperate with this however given the multiple drug-resistant colonization this is going to be a bit of an issue (9) Klebsiella cystitis Status: Acute Comment: Infectious diseases guiding the treatment for this multiple drug- resistant organism that has also gotten into the bloodstream Subjective 24 Hr Interval Summary Free Text/Dictation Hospital day #40. Constitutional: no complaints (Denies fever chills or sweats) Respiratory: no complaints (Denies shortness of breath or wheezing) Cardiovascular: no complaints (Denies palpitations denies chest pain) Gastrointestinal: no complaints Genitourinary: other (Patient is at times agitated and does not wish to have the intermittent straight cathing) Exam/Review of Systems Vital Signs Vitals Vital Signs Date Time Temp Pulse Resp B/P Pulse Ox O2 Delivery O2 Flow Rate FiO2 11/07/16 02:27 4.0 11/07/16 00:00 Nasal Cannula 11/06/16 22:30 97.9 99 18 110/62 95 Intake and Output 11/06/16 11/06/16 11/07/16 15:00 23:00 07:00 Intake Total 300 ml 1400 ml 480 ml Output Total 1400 ml 700 ml 800 ml Balance -1100 ml 700 ml -320 ml Exam Constitutional: alert Neck: non-tender, supple Respiratory: clear to auscultation, normal air movement Cardiovascular: nl pulses, regular rate and rhythm Gastrointestinal: nl liver, spleen, non-tender, soft Results Result Diagram: 11/06/16 0630 11/06/16 0630 Results 24 hrs Laboratory Tests Test 11/06/16 08:50 11/06/16 12:44 11/06/16 17:31 11/06/16 20:17 Bedside Glucose 108 173 274 H 115 Medications Medications Current Medications IV Flush (NS 10 ml) 10 ml PRN PRN IV IV PROTOCOL; Start 09/28/16 at 14:00 Ondansetron HCl (Zofran Inj) 4 mg Q6H PRN IV NAUSEA AND/OR VOMITING; Start at 15:00 Nitroglycerin (Nitroglycerin (Sl Tab) 0.4 Mg) 1 tab Q5M PRN SL CHEST PAIN; Start 09/28/16 at 15:00 Acetaminophen (Tylenol Liquid) 650 mg Q6H PRN PO PAIN LEVEL 1-3 OR FEVER Last administered on 11/07/16 05:09; Admin Dose 650 MG; Start 09/28/16 at 15:00 Acetaminophen (Tylenol Tab) 650 mg Q6H PRN PO PAIN LEVEL 1-3 OR FEVER Last administered on 10/28/16 09:00; Admin Dose 650 MG; Start 09/28/16 at 15:00 Morphine Sulfate (morphine) 2 mg Q4H PRN IV PAIN LEVEL 7-10 Last administered on 09/29/16 02:30; Admin Dose 2 MG; Start 09/28/16 at 15:00 Lorazepam (Ativan) 1 mg Q2H PRN IV ANXIETY Last administered on 10/29/16 20:56 ; Admin Dose 1 MG; Start 09/28/16 at 15:00 Docusate Sodium (Colace) 100 mg Q12H PRN PO CONSTIPATION; Start 09/28/16 at 15: 00 Famotidine (Pepcid) 20 mg Q12 PO Last administered on 11/06/16 20:14; Admin Dose 20 MG; Start 09/28/16 at 21:00 Aspirin (Aspirin) 81 mg DAILY PO Last administered on 11/06/16 08:51; Admin Dose 81 MG; Start 09/29/16 at 09:00 Atorvastatin Calcium (Lipitor) 10 mg QHS PO Last administered on 11/06/16 20:13 ; Admin Dose 10 MG; Start 09/28/16 at 21:00 Tiotropium [place] (Spiriva) 1 inh DAILY INH ; Start 09/28/16 at 16:00; Status Future Hold Mupirocin (Bactroban) 1 applic BID TOP Last administered on 11/06/16 20:22; Admin Dose 1 APPLIC; Start 09/30/16 at 09:00 Diagnostic Test (Pha) (Accucheck) 1 ea 02 XX Last administered on 11/03/16 02: 00; Admin Dose 1 EA; Start 10/05/16 at 02:00 Miscellaneous Information 1 ea NOTE XX ; Start 10/04/16 at 09:00 Glucose (Glutose) 15 gm Q15M PRN PO DECREASED GLUCOSE; Start 10/04/16 at 09:00 Glucose (Glutose) 22.5 gm Q15M PRN PO DECREASED GLUCOSE; Start 10/04/16 at 09: 00 Dextrose (D50w Syringe) 25 ml Q15M PRN IV DECREASED GLUCOSE; Start 10/04/16 at 09:00 Dextrose (D50w Syringe) 50 ml Q15M PRN IV DECREASED GLUCOSE; Start 10/04/16 at 09:00 Glucagon (Glucagen) 1 mg Q15M PRN IM DECREASED GLUCOSE; Start 10/04/16 at 09:00 Glucose (Glutose) 15 gm Q15M PRN BUCCAL DECREASED GLUCOSE; Start 10/04/16 at 09 :00 Metoprolol Tartrate (Lopressor) 5 mg Q4 PRN IV HR>110 Hold SBP<100; Start 10/05 at 19:30 Insulin Glargine (Lantus) 15 unit HS SC Last administered on 11/06/16 20:19; Admin Dose 15 UNIT; Start 10/10/16 at 21:00 Montelukast Sodium (Singulair) 10 mg HS PO Last administered on 11/06/16 20:13 ; Admin Dose 10 MG; Start 10/10/16 at 21:00 Theophylline (Benji-24) 300 mg QHS PO Last administered on 11/06/16 20:13; Admin Dose 300 MG; Start 10/10/16 at 21:00 Apixaban (Eliquis) 5 mg BID PO Last administered on 11/06/16 20:12; Admin Dose 5 MG; Start 10/10/16 at 21:00 Digoxin (Digoxin) 0.125 mg DAILY@13 PO Last administered on 11/06/16 12:47; Admin Dose 0.125 MG; Start 10/12/16 at 13:00 Furosemide (Lasix) 40 mg AM PO Last administered on 11/06/16 08:55; Admin Dose 40 MG; Start 10/25/16 at 09:00 Amiodarone HCl (Cordarone) 200 mg BID PO Last administered on 11/06/16 20:14; Admin Dose 200 MG; Start 10/24/16 at 21:00 Prednisone (Prednisone) 10 mg DAILY PO Last administered on 11/06/16 08:51; Admin Dose 10 MG; Start 10/27/16 at 09:00 Metoprolol Succinate (Toprol Xl) 50 mg DAILY PO Last administered on 11/06/16 08:56; Admin Dose 50 MG; Start 10/28/16 at 09:00 Metoprolol Succinate 50 mg 50 mg HS PO Last administered on 11/06/16 20:15; Admin Dose 50 MG; Start 10/28/16 at 21:00 Colistimethate Sodium/Sodium Chloride (Coly-Mycin/NS) 100 ml @ 200 mls/hr Q12 IVPB Last administered on 11/06/16 20:13; Admin Dose 200 MLS/HR; Start at 21:00 Lisinopril (Zestril) 10 mg DAILY PO Last administered on 11/06/16t 08:56; Admin Dose 10 MG; Start 11/06/16 at 09:00 DEVON MUHAMMAD MD Nov 07, 2016 06:43
[2016-11-07 07:10] VITALS: BP 102/57; RESP 26
[2016-11-07] MEDS: INSULIN ASPART [NOVOLOG] 3 ML PEN SC SCH ×7 (07:40→21:00)
[2016-11-07] MEDS: COLISTIMETHATE 75 MG in SOD CHLORIDE 0.9% 100 ML IVPB SCH ×3 (09:00→20:51)
[2016-11-07] MEDS: SALMETEROL/FLUTICASONE 250/50 INHA INH SCH ×2 (09:07→20:48)
[2016-11-07] MEDS: predniSONE 1 MG TAB PO SCH (09:07)
[2016-11-07] MEDS: ASPIRIN 81 MG TAB PO SCH (09:07)
[2016-11-07] MEDS: FAMOTIDINE 20 MG TAB PO SCH ×2 (09:08→20:49)
[2016-11-07] MEDS: APIXABAN 5 MG TABLET PO SCH ×2 (09:08→20:49)
[2016-11-07] MEDS: AMIODARONE 200 MG TAB PO SCH ×2 (09:08→20:56)
[2016-11-07] MEDS: FUROSEMIDE 40 MG TAB PO SCH (09:08)
[2016-11-07] MEDS: METOPROLOL (XL) 25 MG TAB PO SCH ×2 (09:09→20:57)
[2016-11-07] MEDS: MUPIROCIN 2% 22 GM OINT TOP SCH ×2 (09:09→20:48)
[2016-11-07] MEDS: LISINOPRIL 10 MG TAB PO SCH (09:09)
--- NOTE | 2016-11-07 13:52 | CONS ---
Date/Time of Note Date/Time of Note DATE: 11/07/16 TIME: 13:50 Assessment/Plan Assessment/Plan Chief Complaint/Hosp Course SUBJECTIVE: No events overnight. The patient is alert, looks comfortable. ANTIMICROBIALS: IV Colistin. PHYSICAL EXAMINATION: GENERAL: Well-developed, fragile, elderly man in no distress. HEENT: Head atraumatic, normocephalic. Sclerae anicteric. Buccal mucosa dry. NECK: Supple. CHEST: Rise symmetrical. Breath sounds clear, diminished to bases. HEART: S1, S2. ABDOMEN: Soft, bowel sounds present. EXTREMITIES: No cyanosis. ASSESSMENT: 1. Sepsis, resolving. 2. Multidrug resistant Klebsiella pneumoniae 2 to #3. 3. Urinary tract infection with bacteremia, persistent. 4. Urinary retention. 5. Bilateral hydronephrosis. 6. Chronic obstructive pulmonary disease, status post pneumonia. 7. Coronary artery disease, history of automatic implantable cardioverter defibrillator, status post interrogation. PLAN: The patient remains stable, repeat bld cx negative, repeat urine cx still growing GNR, continue abx, monitor renal f-n, f/u urology rec-s==> straight cath /[facility] staff Problems: Consultation Date/Type/Reason Admit Date/Time Sep 28, 2016 at 14:41 Initial Consult Date 09/28/16 Type of Consultation: ID Referring Provider: DEVON MUHAMMAD MD Exam/Review of Systems Vital Signs Vitals Vital Signs Date Time Temp Pulse Resp B/P Pulse Ox O2 Delivery O2 Flow Rate FiO2 11/07/16 08:20 Nasal Cannula 4.0 11/07/16 07:53 68 22 94 11/07/16 07:10 98.3 102/57 Intake and Output 11/06/16 11/06/16 11/07/16 15:00 23:00 07:00 Intake Total 300 ml 1400 ml 480 ml Output Total 1400 ml 700 ml 800 ml Balance -1100 ml 700 ml -320 ml Results Result Diagram: 11/06/16 0630 11/07/16 0430 Results 24 hrs Laboratory Tests Test 11/06/16 17:31 11/06/16 20:17 11/07/16 04:30 11/07/16 07:36 Bedside Glucose 274 H 115 138 Anion Gap 12 Blood Urea Nitrogen 36 H Calcium Level 9.6 Carbon Dioxide Level 39 H Chloride Level 92 L Creatinine 1.11 Glucose Level 74 Potassium Level 4.5 Sodium Level 138 Test 11/07/16 11:47 Bedside Glucose 120 Medications Medications Current Medications IV Flush (NS 10 ml) 10 ml PRN PRN IV IV PROTOCOL; Start 09/28/16 at 14:00 Ondansetron HCl (Zofran Inj) 4 mg Q6H PRN IV NAUSEA AND/OR VOMITING; Start at 15:00 Nitroglycerin (Nitroglycerin (Sl Tab) 0.4 Mg) 1 tab Q5M PRN SL CHEST PAIN; Start 09/28/16 at 15:00 Acetaminophen (Tylenol Liquid) 650 mg Q6H PRN PO PAIN LEVEL 1-3 OR FEVER Last administered on 11/07/16 05:09; Admin Dose 650 MG; Start 09/28/16 at 15:00 Acetaminophen (Tylenol Tab) 650 mg Q6H PRN PO PAIN LEVEL 1-3 OR FEVER Last administered on 10/28/16 09:00; Admin Dose 650 MG; Start 09/28/16 at 15:00 Morphine Sulfate (morphine) 2 mg Q4H PRN IV PAIN LEVEL 7-10 Last administered on 09/29/16 02:30; Admin Dose 2 MG; Start 09/28/16 at 15:00 Lorazepam (Ativan) 1 mg Q2H PRN IV ANXIETY Last administered on 10/29/16 20:56 ; Admin Dose 1 MG; Start 09/28/16 at 15:00 Docusate Sodium (Colace) 100 mg Q12H PRN PO CONSTIPATION; Start 09/28/16 at 15: 00 Famotidine (Pepcid) 20 mg Q12 PO Last administered on 11/07/16 09:08; Admin Dose 20 MG; Start 09/28/16 at 21:00 Aspirin (Aspirin) 81 mg DAILY PO Last administered on 11/07/16 09:07; Admin Dose 81 MG; Start 09/29/16 at 09:00 Atorvastatin Calcium (Lipitor) 10 mg QHS PO Last administered on 11/06/16 20:13 ; Admin Dose 10 MG; Start 09/28/16 at 21:00 Tiotropium [place] (Spiriva) 1 inh DAILY INH ; Start 09/28/16 at 16:00; Status Future Hold Mupirocin (Bactroban) 1 applic BID TOP Last administered on 11/07/16 09:09; Admin Dose 1 APPLIC; Start 09/30/16 at 09:00 Diagnostic Test (Pha) (Accucheck) 1 ea 02 XX Last administered on 11/03/16 02: 00; Admin Dose 1 EA; Start 10/05/16 at 02:00 Miscellaneous Information 1 ea NOTE XX ; Start 10/04/16 at 09:00 Glucose (Glutose) 15 gm Q15M PRN PO DECREASED GLUCOSE; Start 10/04/16 at 09:00 Glucose (Glutose) 22.5 gm Q15M PRN PO DECREASED GLUCOSE; Start 10/04/16 at 09: 00 Dextrose (D50w Syringe) 25 ml Q15M PRN IV DECREASED GLUCOSE; Start 10/04/16 at 09:00 Dextrose (D50w Syringe) 50 ml Q15M PRN IV DECREASED GLUCOSE; Start 10/04/16 at 09:00 Glucagon (Glucagen) 1 mg Q15M PRN IM DECREASED GLUCOSE; Start 10/04/16 at 09:00 Glucose (Glutose) 15 gm Q15M PRN BUCCAL DECREASED GLUCOSE; Start 10/04/16 at 09 :00 Metoprolol Tartrate (Lopressor) 5 mg Q4 PRN IV HR>110 Hold SBP<100; Start 10/05 at 19:30 Insulin Glargine (Lantus) 15 unit HS SC Last administered on 11/06/16 20:19; Admin Dose 15 UNIT; Start 10/10/16 at 21:00 Montelukast Sodium (Singulair) 10 mg HS PO Last administered on 11/06/16 20:13 ; Admin Dose 10 MG; Start 10/10/16 at 21:00 Theophylline (Benji-24) 300 mg QHS PO Last administered on 11/06/16 20:13; Admin Dose 300 MG; Start 10/10/16 at 21:00 Apixaban (Eliquis) 5 mg BID PO Last administered on 11/07/16 09:08; Admin Dose 5 MG; Start 10/10/16 at 21:00 Digoxin (Digoxin) 0.125 mg DAILY@13 PO Last administered on 11/06/16 12:47; Admin Dose 0.125 MG; Start 10/12/16 at 13:00 Furosemide (Lasix) 40 mg AM PO Last administered on 11/07/16 09:08; Admin Dose 40 MG; Start 10/25/16 at 09:00 Amiodarone HCl (Cordarone) 200 mg BID PO Last administered on 11/07/16 09:08; Admin Dose 200 MG; Start 10/24/16 at 21:00 Metoprolol Succinate (Toprol Xl) 50 mg DAILY PO Last administered on 11/07/16 09:09; Admin Dose 50 MG; Start 10/28/16 at 09:00 Metoprolol Succinate 50 mg 50 mg HS PO Last administered on 11/06/16 20:15; Admin Dose 50 MG; Start 10/28/16 at 21:00 Colistimethate Sodium/Sodium Chloride (Coly-Mycin/NS) 100 ml @ 200 mls/hr Q12 IVPB Last administered on 11/07/16 10:19; Admin Dose 200 MLS/HR; Start at 21:00 Lisinopril (Zestril) 10 mg DAILY PO Last administered on 11/07/16 09:09; Admin Dose 10 MG; Start 11/06/16 at 09:00 Prednisone (Prednisone) 8 mg DAILY PO Last administered on 11/07/16 09:07; Admin Dose 8 MG; Start 11/07/16 at 09:00 Salmeterol Xinafoate/ Fluticasone (Advair 250/50 Diskus) 1 inh BID INH Last administered on 11/07/16 09:07; Admin Dose 1 INH; Start 11/07/16 at 09:00 CODY BRANCH NP Nov 07, 2016 13:51
[2016-11-07] MEDS: DIGOXIN 0.125 MG TAB PO SCH (13:55)
--- NOTE | 2016-11-07 15:11 | CONS ---
Date/Time of Note Date/Time of Note DATE: 11/07/16 TIME: 15:06 Assessment/Plan Assessment/Plan Additional Assessment/Plan Atrial fibrillation in NSR Congestive heart failure, systolic, acute on chronic. Cardiomyopathy with decreased left ventricular ejection fraction 20% to 25% per chart biopsy, s/p AICD Status post hypercapnic respiratory failure, status post extubation. Chronic obstructive pulmonary disease. Hypertension. Dyslipidemia. Pneumonia. UTI-Klebs Bacteremia-Klebs/persistent Hemodynamically stable Continue Metoprolol Continue Amiodarone and digoxin Continue Eliquis Continue Benazepril Continue Insulin Continue Lipitor Consultation Date/Type/Reason Admit Date/Time Sep 28, 2016 at 14:41 Constitutional: no complaints (Denies fever chills or sweats) Respiratory: no complaints (Denies shortness of breath or wheezing) Cardiovascular: no complaints (Denies palpitations denies chest pain) Gastrointestinal: no complaints Genitourinary: other (Patient is at times agitated and does not wish to have the intermittent straight cathing) Musculoskeletal: other (Patient has his right foot in a posterior splint. He reports he has no idea what happened.) Psychological: nl mood/affect, no complaints Past Surgical History Past Surgical Hx: no surgical history Social History Smoking Status: Former smoker Exam/Review of Systems Vital Signs Vitals Vital Signs Date Time Temp Pulse Resp B/P Pulse Ox O2 Delivery O2 Flow Rate FiO2 11/07/16 13:48 65 18 93 Nasal Cannula 4.0 11/07/16 07:10 98.3 102/57 Intake and Output 11/06/16 11/06/16 11/07/16 15:00 23:00 07:00 Intake Total 300 ml 1400 ml 480 ml Output Total 1400 ml 700 ml 800 ml Balance -1100 ml 700 ml -320 ml Exam Constitutional: alert Neck: non-tender, supple Respiratory: clear to auscultation Cardiovascular: regular rate and rhythm Gastrointestinal: nl liver, spleen, non-tender, soft Extremities: normal pulses Results Result Diagram: 11/06/16 0630 11/07/16 0430 Results 24 hrs Laboratory Tests Test 11/06/16 17:31 11/06/16 20:17 11/07/16 04:30 11/07/16 07:36 Bedside Glucose 274 H 115 138 Anion Gap 12 Blood Urea Nitrogen 36 H Calcium Level 9.6 Carbon Dioxide Level 39 H Chloride Level 92 L Creatinine 1.11 Glucose Level 74 Potassium Level 4.5 Sodium Level 138 Test 11/07/16 11:47 Bedside Glucose 120 Medications Medications Current Medications IV Flush (NS 10 ml) 10 ml PRN PRN IV IV PROTOCOL; Start 09/28/16 at 14:00 Ondansetron HCl (Zofran Inj) 4 mg Q6H PRN IV NAUSEA AND/OR VOMITING; Start at 15:00 Nitroglycerin (Nitroglycerin (Sl Tab) 0.4 Mg) 1 tab Q5M PRN SL CHEST PAIN; Start 09/28/16 at 15:00 Acetaminophen (Tylenol Liquid) 650 mg Q6H PRN PO PAIN LEVEL 1-3 OR FEVER Last administered on 11/07/16 05:09; Admin Dose 650 MG; Start 09/28/16 at 15:00 Acetaminophen (Tylenol Tab) 650 mg Q6H PRN PO PAIN LEVEL 1-3 OR FEVER Last administered on 10/28/16 09:00; Admin Dose 650 MG; Start 09/28/16 at 15:00 Morphine Sulfate (morphine) 2 mg Q4H PRN IV PAIN LEVEL 7-10 Last administered on 09/29/16 02:30; Admin Dose 2 MG; Start 09/28/16 at 15:00 Lorazepam (Ativan) 1 mg Q2H PRN IV ANXIETY Last administered on 10/29/16 20:56 ; Admin Dose 1 MG; Start 09/28/16 at 15:00 Docusate Sodium (Colace) 100 mg Q12H PRN PO CONSTIPATION; Start 09/28/16 at 15: 00 Famotidine (Pepcid) 20 mg Q12 PO Last administered on 11/07/16 09:08; Admin Dose 20 MG; Start 09/28/16 at 21:00 Aspirin (Aspirin) 81 mg DAILY PO Last administered on 11/07/16 09:07; Admin Dose 81 MG; Start 09/29/16 at 09:00 Atorvastatin Calcium (Lipitor) 10 mg QHS PO Last administered on 11/06/16 20:13 ; Admin Dose 10 MG; Start 09/28/16 at 21:00 Tiotropium [place] (Spiriva) 1 inh DAILY INH ; Start 09/28/16 at 16:00; Status Future Hold Mupirocin (Bactroban) 1 applic BID TOP Last administered on 11/07/16 09:09; Admin Dose 1 APPLIC; Start 09/30/16 at 09:00 Diagnostic Test (Pha) (Accucheck) 1 ea 02 XX Last administered on 11/03/16 02: 00; Admin Dose 1 EA; Start 10/05/16 at 02:00 Miscellaneous Information 1 ea NOTE XX ; Start 10/04/16 at 09:00 Glucose (Glutose) 15 gm Q15M PRN PO DECREASED GLUCOSE; Start 10/04/16 at 09:00 Glucose (Glutose) 22.5 gm Q15M PRN PO DECREASED GLUCOSE; Start 10/04/16 at 09: 00 Dextrose (D50w Syringe) 25 ml Q15M PRN IV DECREASED GLUCOSE; Start 10/04/16 at 09:00 Dextrose (D50w Syringe) 50 ml Q15M PRN IV DECREASED GLUCOSE; Start 10/04/16 at 09:00 Glucagon (Glucagen) 1 mg Q15M PRN IM DECREASED GLUCOSE; Start 10/04/16 at 09:00 Glucose (Glutose) 15 gm Q15M PRN BUCCAL DECREASED GLUCOSE; Start 10/04/16 at 09 :00 Metoprolol Tartrate (Lopressor) 5 mg Q4 PRN IV HR>110 Hold SBP<100; Start 10/05 at 19:30 Insulin Glargine (Lantus) 15 unit HS SC Last administered on 11/06/16 20:19; Admin Dose 15 UNIT; Start 10/10/16 at 21:00 Montelukast Sodium (Singulair) 10 mg HS PO Last administered on 11/06/16 20:13 ; Admin Dose 10 MG; Start 10/10/16 at 21:00 Theophylline (Benji-24) 300 mg QHS PO Last administered on 11/06/16 20:13; Admin Dose 300 MG; Start 10/10/16 at 21:00 Apixaban (Eliquis) 5 mg BID PO Last administered on 11/07/16 09:08; Admin Dose 5 MG; Start 10/10/16 at 21:00 Digoxin (Digoxin) 0.125 mg DAILY@13 PO Last administered on 11/07/16 13:55; Admin Dose 0.125 MG; Start 10/12/16 at 13:00 Furosemide (Lasix) 40 mg AM PO Last administered on 11/07/16 09:08; Admin Dose 40 MG; Start 10/25/16 at 09:00 Amiodarone HCl (Cordarone) 200 mg BID PO Last administered on 11/07/16 09:08; Admin Dose 200 MG; Start 10/24/16 at 21:00 Metoprolol Succinate (Toprol Xl) 50 mg DAILY PO Last administered on 11/07/16 09:09; Admin Dose 50 MG; Start 10/28/16 at 09:00 Metoprolol Succinate 50 mg 50 mg HS PO Last administered on 11/06/16 20:15; Admin Dose 50 MG; Start 10/28/16 at 21:00 Colistimethate Sodium/Sodium Chloride (Coly-Mycin/NS) 100 ml @ 200 mls/hr Q12 IVPB Last administered on 11/07/16 10:19; Admin Dose 200 MLS/HR; Start at 21:00 Lisinopril (Zestril) 10 mg DAILY PO Last administered on 11/07/16 09:09; Admin Dose 10 MG; Start 11/06/16 at 09:00 Prednisone (Prednisone) 8 mg DAILY PO Last administered on 11/07/16 09:07; Admin Dose 8 MG; Start 11/07/16 at 09:00 Salmeterol Xinafoate/ Fluticasone (Advair 250/50 Diskus) 1 inh BID INH Last administered on 11/07/16 09:07; Admin Dose 1 INH; Start 11/07/16 at 09:00 JUANJO GARNETT M.D. Nov 07, 2016 15:11
[2016-11-07] MEDS: predniSONE 2.5 MG TAB PO SCH (18:46)
[2016-11-07 20:00] VITALS: BP 122/88; RESP 19
[2016-11-07] MEDS: ATORVASTATIN 10 MG TAB PO SCH (20:48)
[2016-11-07] MEDS: MONTELUKAST 10 MG TAB PO SCH (20:49)
[2016-11-07] MEDS: INSULIN GLARGINE [LANtus] 3 ML PEN SC SCH (21:13)
[2016-11-07] MEDS: THEOPHYLLINE (SR) 300 MG CAP PO SCH (23:06)
[2016-11-08] MEDS: ACCU-CHEK XX SCH (02:00)
[2016-11-08] MEDS: ALBUTEROL/IPRATROPIUM (NEB) 3 ML AMP HHN SCH ×4 (02:05→19:37)
[2016-11-08] MEDS: INSULIN ASPART [NOVOLOG] 3 ML PEN SC SCH ×7 (08:00→21:00)
[2016-11-08 08:02] VITALS: BP 125/68; RESP 20
--- NOTE | 2016-11-08 08:05 | PN ---
Date/Time of Note Date/Time of Note DATE: 11/08/16 TIME: 08:02 Assessment/Plan VTE Prophylaxis VTE Prophylaxis Intervention: LMWH Lines/Catheters IV Catheter Type (from [facility], [place]): [facility] Urinary Cath still in place: No Assessment/Plan Chief Complaint/Hosp Course Hospital day 41 Problems: (1) Acute systolic congestive heart failure Status: Acute Comment: Corrected and compensated with medication therapy. Given the totality situation having him live independently is not a legitimate option and he will need placement either in assisted living or ECF (2) Foot fracture, right Status: Chronic Comment: Under care of subspecialty. Await their final decision Qualifiers: Encounter type: initial encounter Fracture type: closed Qualified Code: S92.901A - Foot fracture, right, closed, initial encounter (3) COPD with acute exacerbation Status: Chronic Comment: Stable on current regimen. (4) Systolic CHF with reduced left ventricular function, NYHA class 3 Status: Chronic Comment: As above now well compensated with medication therapy (5) Hyperlipidemia associated with type 2 diabetes mellitus Status: Chronic Comment: On treatment and stable (6) Hypertension Status: Chronic Comment: Controlled with medications Qualifiers: Hypertension type: essential hypertension Qualified Code: I10 - Essential hypertension (7) Diabetes mellitus type 2 in nonobese Status: Chronic Comment: Well-controlled with current regimen (8) Atrial fibrillation Status: Chronic Comment: On medications Qualifiers: Atrial fibrillation type: chronic Qualified Code: I48.2 - Chronic atrial fibrillation (9) Neurogenic bladder, flaccid Status: Acute Comment: This is a major issue because this is a source of infection with a resistant bacteria. Ultimately we may be pushed into a more aggressive position but will defer off to Dr. Simpson Subjective 24 Hr Interval Summary Free Text/Dictation Patient awakens with some difficulty Constitutional: no complaints Respiratory: no complaints Cardiovascular: no complaints Gastrointestinal: no complaints Genitourinary: no complaints Musculoskeletal: no complaints (Once the boot off of his foot) Exam/Review of Systems Vital Signs Vitals Vital Signs Date Time Temp Pulse Resp B/P Pulse Ox O2 Delivery O2 Flow Rate FiO2 11/08/16 02:07 4.0 11/08/16 02:07 68 20 94 Nasal Cannula 11/07/16 20:00 98.4 122/88 Intake and Output 11/07/16 11/07/16 11/08/16 15:00 23:00 07:00 Intake Total 100 ml 1300 ml 340 ml Output Total 475 ml 800 ml 1425 ml Balance -375 ml 500 ml -1085 ml Exam Constitutional: alert, oriented Respiratory: clear to auscultation, diminished breath sounds Cardiovascular: irregular rhythm, nl pulses Results Result Diagram: 11/06/16 0630 11/07/16 0430 Results 24 hrs Laboratory Tests Test 11/07/16 11:47 11/07/16 16:49 11/07/16 21:11 11/08/16 07:40 Bedside Glucose 120 187 130 93 Medications Medications Current Medications IV Flush (NS 10 ml) 10 ml PRN PRN IV IV PROTOCOL; Start 09/28/16 at 14:00 Ondansetron HCl (Zofran Inj) 4 mg Q6H PRN IV NAUSEA AND/OR VOMITING; Start at 15:00 Nitroglycerin (Nitroglycerin (Sl Tab) 0.4 Mg) 1 tab Q5M PRN SL CHEST PAIN; Start 09/28/16 at 15:00 Acetaminophen (Tylenol Liquid) 650 mg Q6H PRN PO PAIN LEVEL 1-3 OR FEVER Last administered on 11/07/16 05:09; Admin Dose 650 MG; Start 09/28/16 at 15:00 Acetaminophen (Tylenol Tab) 650 mg Q6H PRN PO PAIN LEVEL 1-3 OR FEVER Last administered on 10/28/16 09:00; Admin Dose 650 MG; Start 09/28/16 at 15:00 Morphine Sulfate (morphine) 2 mg Q4H PRN IV PAIN LEVEL 7-10 Last administered on 09/29/16 02:30; Admin Dose 2 MG; Start 09/28/16 at 15:00 Lorazepam (Ativan) 1 mg Q2H PRN IV ANXIETY Last administered on 10/29/16 20:56 ; Admin Dose 1 MG; Start 09/28/16 at 15:00 Docusate Sodium (Colace) 100 mg Q12H PRN PO CONSTIPATION; Start 09/28/16 at 15: 00 Famotidine (Pepcid) 20 mg Q12 PO Last administered on 11/07/16 20:49; Admin Dose 20 MG; Start 09/28/16 at 21:00 Aspirin (Aspirin) 81 mg DAILY PO Last administered on 11/07/16 09:07; Admin Dose 81 MG; Start 09/29/16 at 09:00 Atorvastatin Calcium (Lipitor) 10 mg QHS PO Last administered on 11/07/16 20:48 ; Admin Dose 10 MG; Start 09/28/16 at 21:00 Tiotropium [place] (Spiriva) 1 inh DAILY INH ; Start 09/28/16 at 16:00; Status Future Hold Mupirocin (Bactroban) 1 applic BID TOP Last administered on 11/07/16 20:48; Admin Dose 1 APPLIC; Start 09/30/16 at 09:00 Diagnostic Test (Pha) (Accucheck) 1 ea 02 XX Last administered on 11/03/16 02: 00; Admin Dose 1 EA; Start 10/05/16 at 02:00 Miscellaneous Information 1 ea NOTE XX ; Start 10/04/16 at 09:00 Glucose (Glutose) 15 gm Q15M PRN PO DECREASED GLUCOSE; Start 10/04/16 at 09:00 Glucose (Glutose) 22.5 gm Q15M PRN PO DECREASED GLUCOSE; Start 10/04/16 at 09: 00 Dextrose (D50w Syringe) 25 ml Q15M PRN IV DECREASED GLUCOSE; Start 10/04/16 at 09:00 Dextrose (D50w Syringe) 50 ml Q15M PRN IV DECREASED GLUCOSE; Start 10/04/16 at 09:00 Glucagon (Glucagen) 1 mg Q15M PRN IM DECREASED GLUCOSE; Start 10/04/16 at 09:00 Glucose (Glutose) 15 gm Q15M PRN BUCCAL DECREASED GLUCOSE; Start 10/04/16 at 09 :00 Metoprolol Tartrate (Lopressor) 5 mg Q4 PRN IV HR>110 Hold SBP<100; Start 10/05 at 19:30 Insulin Glargine (Lantus) 15 unit HS SC Last administered on 11/07/16 21:13; Admin Dose 15 UNIT; Start 10/10/16 at 21:00 Montelukast Sodium (Singulair) 10 mg HS PO Last administered on 11/07/16 20:49 ; Admin Dose 10 MG; Start 10/10/16 at 21:00 Theophylline (Benji-24) 300 mg QHS PO Last administered on 11/07/16 23:06; Admin Dose 300 MG; Start 10/10/16 at 21:00 Apixaban (Eliquis) 5 mg BID PO Last administered on 11/07/16 20:49; Admin Dose 5 MG; Start 10/10/16 at 21:00 Digoxin (Digoxin) 0.125 mg DAILY@13 PO Last administered on 11/07/16 13:55; Admin Dose 0.125 MG; Start 10/12/16 at 13:00 Furosemide (Lasix) 40 mg AM PO Last administered on 11/07/16 09:08; Admin Dose 40 MG; Start 10/25/16 at 09:00 Amiodarone HCl (Cordarone) 200 mg BID PO Last administered on 11/07/16 20:56; Admin Dose 200 MG; Start 10/24/16 at 21:00 Metoprolol Succinate (Toprol Xl) 50 mg DAILY PO Last administered on 11/07/16 09:09; Admin Dose 50 MG; Start 10/28/16 at 09:00 Metoprolol Succinate 50 mg 50 mg HS PO Last administered on 11/07/16 20:57; Admin Dose 50 MG; Start 10/28/16 at 21:00 Colistimethate Sodium/Sodium Chloride (Coly-Mycin/NS) 100 ml @ 200 mls/hr Q12 IVPB Last administered on 11/07/16 20:51; Admin Dose 200 MLS/HR; Start at 21:00 Lisinopril (Zestril) 10 mg DAILY PO Last administered on 11/07/16 09:09; Admin Dose 10 MG; Start 11/06/16 at 09:00 Prednisone (Prednisone) 8 mg DAILY PO Last administered on 11/07/16 09:07; Admin Dose 8 MG; Start 11/07/16 at 09:00 Salmeterol Xinafoate/ Fluticasone (Advair 250/50 Diskus) 1 inh BID INH Last administered on 11/07/16 20:48; Admin Dose 1 INH; Start 11/07/16 at 09:00 DEVON MUHAMMAD MD Nov 08, 2016 08:05
[2016-11-08] MEDS: ASPIRIN 81 MG TAB PO SCH (09:13)
[2016-11-08] MEDS: APIXABAN 5 MG TABLET PO SCH ×2 (09:14→21:04)
[2016-11-08] MEDS: predniSONE 1 MG TAB PO SCH (09:14)
[2016-11-08] MEDS: FAMOTIDINE 20 MG TAB PO SCH ×2 (09:18→21:05)
[2016-11-08] MEDS: FUROSEMIDE 40 MG TAB PO SCH (09:19)
[2016-11-08] MEDS: AMIODARONE 200 MG TAB PO SCH ×2 (09:19→21:06)
[2016-11-08] MEDS: LISINOPRIL 10 MG TAB PO SCH (09:19)
[2016-11-08] MEDS: METOPROLOL (XL) 25 MG TAB PO SCH ×2 (09:20→21:05)
[2016-11-08] MEDS: SALMETEROL/FLUTICASONE 250/50 INHA INH SCH ×2 (09:20→21:06)
[2016-11-08] MEDS: MUPIROCIN 2% 22 GM OINT TOP SCH ×2 (09:21→21:06)
[2016-11-08] MEDS: COLISTIMETHATE 75 MG in SOD CHLORIDE 0.9% 100 ML IVPB SCH ×2 (09:28→21:19)
[2016-11-08] MEDS: DIGOXIN 0.125 MG TAB PO SCH (12:52)
--- NOTE | 2016-11-08 15:43 | CONS ---
Date/Time of Note Date/Time of Note DATE: 11/08/16 TIME: 15:41 Assessment/Plan Assessment/Plan Chief Complaint/Hosp Course SUBJECTIVE: No events overnight. The patient is awake, looks comfortable, afebrile. ANTIMICROBIALS: IV Colistin. PHYSICAL EXAMINATION: GENERAL: Well-developed, fragile, elderly man in no distress. HEENT: Head atraumatic, normocephalic. Sclerae anicteric. Buccal mucosa dry. NECK: Supple. CHEST: Rise symmetrical. Breath sounds clear, diminished to bases. HEART: S1, S2. ABDOMEN: Soft, bowel sounds present. EXTREMITIES: No cyanosis. ASSESSMENT: 1. Sepsis, resolving. 2. Multidrug resistant Klebsiella pneumoniae bacteremia 2 to #3. 3. Urinary tract infection. 4. Urinary retention. 5. Bilateral hydronephrosis. 6. Chronic obstructive pulmonary disease, status post pneumonia. 7. Coronary artery disease, history of automatic implantable cardioverter defibrillator, status post interrogation. PLAN: The patient remains stable, repeat bld cx negative, repeat urine cx still growing GNR, continue abx, monitor renal f-n, f/u urology rec-s==> straight cath /[facility] dw staff Problems: Consultation Date/Type/Reason Admit Date/Time Sep 28, 2016 at 14:41 Initial Consult Date 09/28/16 Type of Consultation: ID Referring Provider: DEVON MUHAMMAD MD Exam/Review of Systems Vital Signs Vitals Vital Signs Date Time Temp Pulse Resp B/P Pulse Ox O2 Delivery O2 Flow Rate FiO2 11/08/16 14:23 4.0 11/08/16 14:22 63 18 95 Nasal Cannula 11/08/16 08:02 97.3 125/68 Intake and Output 11/07/16 11/07/16 11/08/16 15:00 23:00 07:00 Intake Total 100 ml 1300 ml 340 ml Output Total 475 ml 800 ml 1425 ml Balance -375 ml 500 ml -1085 ml Results Result Diagram: 11/06/16 0630 11/07/16 0430 Results 24 hrs Laboratory Tests Test 11/07/16 16:49 11/07/16 21:11 11/08/16 07:40 11/08/16 09:40 Bedside Glucose 187 130 93 Hepatitis B Surface Antigen NEGATIVE Hepatitis C Antibody NEGATIVE Rapid Plasma Reagin NONREACTIVE Test 11/08/16 12:02 Bedside Glucose 137 Medications Medications Current Medications IV Flush (NS 10 ml) 10 ml PRN PRN IV IV PROTOCOL; Start 09/28/16 at 14:00 Ondansetron HCl (Zofran Inj) 4 mg Q6H PRN IV NAUSEA AND/OR VOMITING; Start at 15:00 Nitroglycerin (Nitroglycerin (Sl Tab) 0.4 Mg) 1 tab Q5M PRN SL CHEST PAIN; Start 09/28/16 at 15:00 Acetaminophen (Tylenol Liquid) 650 mg Q6H PRN PO PAIN LEVEL 1-3 OR FEVER Last administered on 11/07/16 05:09; Admin Dose 650 MG; Start 09/28/16 at 15:00 Acetaminophen (Tylenol Tab) 650 mg Q6H PRN PO PAIN LEVEL 1-3 OR FEVER Last administered on 10/28/16 09:00; Admin Dose 650 MG; Start 09/28/16 at 15:00 Morphine Sulfate (morphine) 2 mg Q4H PRN IV PAIN LEVEL 7-10 Last administered on 09/29/16 02:30; Admin Dose 2 MG; Start 09/28/16 at 15:00 Lorazepam (Ativan) 1 mg Q2H PRN IV ANXIETY Last administered on 10/29/16 20:56 ; Admin Dose 1 MG; Start 09/28/16 at 15:00 Docusate Sodium (Colace) 100 mg Q12H PRN PO CONSTIPATION; Start 09/28/16 at 15: 00 Famotidine (Pepcid) 20 mg Q12 PO Last administered on 11/08/16 09:18; Admin Dose 20 MG; Start 09/28/16 at 21:00 Aspirin (Aspirin) 81 mg DAILY PO Last administered on 11/08/16 09:13; Admin Dose 81 MG; Start 09/29/16 at 09:00 Atorvastatin Calcium (Lipitor) 10 mg QHS PO Last administered on 11/07/16 20:48 ; Admin Dose 10 MG; Start 09/28/16 at 21:00 Tiotropium [place] (Spiriva) 1 inh DAILY INH ; Start 09/28/16 at 16:00; Status Future Hold Mupirocin (Bactroban) 1 applic BID TOP Last administered on 11/08/16 09:21; Admin Dose 1 APPLIC; Start 09/30/16 at 09:00 Diagnostic Test (Pha) (Accucheck) 1 ea 02 XX Last administered on 11/03/16 02: 00; Admin Dose 1 EA; Start 10/05/16 at 02:00 Miscellaneous Information 1 ea NOTE XX ; Start 10/04/16 at 09:00 Glucose (Glutose) 15 gm Q15M PRN PO DECREASED GLUCOSE; Start 10/04/16 at 09:00 Glucose (Glutose) 22.5 gm Q15M PRN PO DECREASED GLUCOSE; Start 10/04/16 at 09: 00 Dextrose (D50w Syringe) 25 ml Q15M PRN IV DECREASED GLUCOSE; Start 10/04/16 at 09:00 Dextrose (D50w Syringe) 50 ml Q15M PRN IV DECREASED GLUCOSE; Start 10/04/16 at 09:00 Glucagon (Glucagen) 1 mg Q15M PRN IM DECREASED GLUCOSE; Start 10/04/16 at 09:00 Glucose (Glutose) 15 gm Q15M PRN BUCCAL DECREASED GLUCOSE; Start 10/04/16 at 09 :00 Metoprolol Tartrate (Lopressor) 5 mg Q4 PRN IV HR>110 Hold SBP<100; Start 10/05 at 19:30 Insulin Glargine (Lantus) 15 unit HS SC Last administered on 11/07/16 21:13; Admin Dose 15 UNIT; Start 10/10/16 at 21:00 Montelukast Sodium (Singulair) 10 mg HS PO Last administered on 11/07/16 20:49 ; Admin Dose 10 MG; Start 10/10/16 at 21:00 Theophylline (Benji-24) 300 mg QHS PO Last administered on 11/07/16 23:06; Admin Dose 300 MG; Start 10/10/16 at 21:00 Apixaban (Eliquis) 5 mg BID PO Last administered on 11/08/16 09:14; Admin Dose 5 MG; Start 10/10/16 at 21:00 Digoxin (Digoxin) 0.125 mg DAILY@13 PO Last administered on 11/08/16 12:52; Admin Dose 0.125 MG; Start 10/12/16 at 13:00 Furosemide (Lasix) 40 mg AM PO Last administered on 11/08/16 09:19; Admin Dose 40 MG; Start 10/25/16 at 09:00 Amiodarone HCl (Cordarone) 200 mg BID PO Last administered on 11/08/16 09:19; Admin Dose 200 MG; Start 10/24/16 at 21:00 Metoprolol Succinate (Toprol Xl) 50 mg DAILY PO Last administered on 11/08/16 09:20; Admin Dose 50 MG; Start 10/28/16 at 09:00 Metoprolol Succinate 50 mg 50 mg HS PO Last administered on 11/07/16 20:57; Admin Dose 50 MG; Start 10/28/16 at 21:00 Colistimethate Sodium/Sodium Chloride (Coly-Mycin/NS) 100 ml @ 200 mls/hr Q12 IVPB Last administered on 11/08/16 09:28; Admin Dose 200 MLS/HR; Start at 21:00 Lisinopril (Zestril) 10 mg DAILY PO Last administered on 11/08/16 09:19; Admin Dose 10 MG; Start 11/06/16 at 09:00 Prednisone (Prednisone) 8 mg DAILY PO Last administered on 11/08/16 09:14; Admin Dose 8 MG; Start 11/07/16 at 09:00 Salmeterol Xinafoate/ Fluticasone (Advair 250/50 Diskus) 1 inh BID INH Last administered on 11/08/16 09:20; Admin Dose 1 INH; Start 11/07/16 at 09:00 CODY BRANCH NP Nov 08, 2016 15:42
--- NOTE | 2016-11-08 16:22 | PN ---
DATE: 11/08/2016 SUBJECTIVE: Urinary retention. The patient is not urinating and he denies having any pain. OBJECTIVE: VITAL SIGNS: He is afebrile. Temperature is 97.3, pulse 59, respirations 20, blood pressure 125/68 . ABDOMEN: Bladder is distended and he is going to be catheterized right now to empty his bladder. H e was catheterized earlier and about 600 mL were drained. LABORATORY DATA: The urine culture, he has Klebsiella pneumoniae carbapenemase and the patient does have a sediment inside his bladder that is why he keeps getting the urinary tract infection and he had bilateral hydronephrosis. The CBC shows a white count of 18.9, hemoglobin 9.2, hematocrit 30.6. The BUN is 36, creatinine 1.11. IMPRESSION: Urinary retention. PLAN: To continue the in and out catheterization. He is being catheterized right now. Dictated By: JOSÉ DOS SANTOS/NANDO Conf#: [id number] DID#: [id number]
--- NOTE | 2016-11-08 16:35 | CONS ---
Date/Time of Note Date/Time of Note DATE: 11/08/16 TIME: 16:34 Assessment/Plan Assessment/Plan Additional Assessment/Plan Atrial fibrillation in NSR Congestive heart failure, systolic, acute on chronic. Cardiomyopathy with decreased left ventricular ejection fraction 20% to 25% per chart biopsy, s/p AICD Status post hypercapnic respiratory failure, status post extubation. Chronic obstructive pulmonary disease. Hypertension. Dyslipidemia. Pneumonia. UTI-Klebs Bacteremia-Klebs/persistent Hemodynamically stable Continue Metoprolol Continue Amiodarone and digoxin Continue Eliquis Continue Benazepril Continue Insulin Continue Lipitor Consultation Date/Type/Reason Admit Date/Time Sep 28, 2016 at 14:41 Initial Consult Date 09/28/16 Type of Consultation: ID Referring Provider: DEVON MUHAMMAD MD Exam/Review of Systems Vital Signs Vitals Vital Signs Date Time Temp Pulse Resp B/P Pulse Ox O2 Delivery O2 Flow Rate FiO2 11/08/16 15:56 Nasal Cannula 5.0 11/08/16 14:22 63 18 95 11/08/16 08:02 97.3 125/68 Intake and Output 11/07/16 11/07/16 11/08/16 15:00 23:00 07:00 Intake Total 100 ml 1300 ml 340 ml Output Total 475 ml 800 ml 1425 ml Balance -375 ml 500 ml -1085 ml Exam Constitutional: alert Neck: non-tender, supple Respiratory: clear to auscultation Cardiovascular: regular rate and rhythm Gastrointestinal: nl liver, spleen, non-tender, soft Extremities: normal pulses Results Result Diagram: 11/06/16 0630 11/07/16 0430 Results 24 hrs Laboratory Tests Test 11/07/16 16:49 11/07/16 21:11 11/08/16 07:40 11/08/16 09:40 Bedside Glucose 187 130 93 Hepatitis B Surface Antigen NEGATIVE Hepatitis C Antibody NEGATIVE Rapid Plasma Reagin NONREACTIVE Test 11/08/16 12:02 Bedside Glucose 137 Medications Medications Current Medications IV Flush (NS 10 ml) 10 ml PRN PRN IV IV PROTOCOL; Start 09/28/16 at 14:00 Ondansetron HCl (Zofran Inj) 4 mg Q6H PRN IV NAUSEA AND/OR VOMITING; Start at 15:00 Nitroglycerin (Nitroglycerin (Sl Tab) 0.4 Mg) 1 tab Q5M PRN SL CHEST PAIN; Start 09/28/16 at 15:00 Acetaminophen (Tylenol Liquid) 650 mg Q6H PRN PO PAIN LEVEL 1-3 OR FEVER Last administered on 11/07/16 05:09; Admin Dose 650 MG; Start 09/28/16 at 15:00 Acetaminophen (Tylenol Tab) 650 mg Q6H PRN PO PAIN LEVEL 1-3 OR FEVER Last administered on 10/28/16 09:00; Admin Dose 650 MG; Start 09/28/16 at 15:00 Morphine Sulfate (morphine) 2 mg Q4H PRN IV PAIN LEVEL 7-10 Last administered on 09/29/16 02:30; Admin Dose 2 MG; Start 09/28/16 at 15:00 Lorazepam (Ativan) 1 mg Q2H PRN IV ANXIETY Last administered on 10/29/16 20:56 ; Admin Dose 1 MG; Start 09/28/16 at 15:00 Docusate Sodium (Colace) 100 mg Q12H PRN PO CONSTIPATION; Start 09/28/16 at 15: 00 Famotidine (Pepcid) 20 mg Q12 PO Last administered on 11/08/16 09:18; Admin Dose 20 MG; Start 09/28/16 at 21:00 Aspirin (Aspirin) 81 mg DAILY PO Last administered on 11/08/16 09:13; Admin Dose 81 MG; Start 09/29/16 at 09:00 Atorvastatin Calcium (Lipitor) 10 mg QHS PO Last administered on 11/07/16 20:48 ; Admin Dose 10 MG; Start 09/28/16 at 21:00 Tiotropium [place] (Spiriva) 1 inh DAILY INH ; Start 09/28/16 at 16:00; Status Future Hold Mupirocin (Bactroban) 1 applic BID TOP Last administered on 11/08/16 09:21; Admin Dose 1 APPLIC; Start 09/30/16 at 09:00 Diagnostic Test (Pha) (Accucheck) 1 ea 02 XX Last administered on 11/03/16 02: 00; Admin Dose 1 EA; Start 10/05/16 at 02:00 Miscellaneous Information 1 ea NOTE XX ; Start 10/04/16 at 09:00 Glucose (Glutose) 15 gm Q15M PRN PO DECREASED GLUCOSE; Start 10/04/16 at 09:00 Glucose (Glutose) 22.5 gm Q15M PRN PO DECREASED GLUCOSE; Start 10/04/16 at 09: 00 Dextrose (D50w Syringe) 25 ml Q15M PRN IV DECREASED GLUCOSE; Start 10/04/16 at 09:00 Dextrose (D50w Syringe) 50 ml Q15M PRN IV DECREASED GLUCOSE; Start 10/04/16 at 09:00 Glucagon (Glucagen) 1 mg Q15M PRN IM DECREASED GLUCOSE; Start 10/04/16 at 09:00 Glucose (Glutose) 15 gm Q15M PRN BUCCAL DECREASED GLUCOSE; Start 10/04/16 at 09 :00 Metoprolol Tartrate (Lopressor) 5 mg Q4 PRN IV HR>110 Hold SBP<100; Start 10/05 at 19:30 Insulin Glargine (Lantus) 15 unit HS SC Last administered on 11/07/16 21:13; Admin Dose 15 UNIT; Start 10/10/16 at 21:00 Montelukast Sodium (Singulair) 10 mg HS PO Last administered on 11/07/16 20:49 ; Admin Dose 10 MG; Start 10/10/16 at 21:00 Theophylline (Benji-24) 300 mg QHS PO Last administered on 11/07/16 23:06; Admin Dose 300 MG; Start 10/10/16 at 21:00 Apixaban (Eliquis) 5 mg BID PO Last administered on 11/08/16 09:14; Admin Dose 5 MG; Start 10/10/16 at 21:00 Digoxin (Digoxin) 0.125 mg DAILY@13 PO Last administered on 11/08/16 12:52; Admin Dose 0.125 MG; Start 10/12/16 at 13:00 Furosemide (Lasix) 40 mg AM PO Last administered on 11/08/16 09:19; Admin Dose 40 MG; Start 10/25/16 at 09:00 Amiodarone HCl (Cordarone) 200 mg BID PO Last administered on 11/08/16 09:19; Admin Dose 200 MG; Start 10/24/16 at 21:00 Metoprolol Succinate (Toprol Xl) 50 mg DAILY PO Last administered on 11/08/16 09:20; Admin Dose 50 MG; Start 10/28/16 at 09:00 Metoprolol Succinate 50 mg 50 mg HS PO Last administered on 11/07/16 20:57; Admin Dose 50 MG; Start 10/28/16 at 21:00 Colistimethate Sodium/Sodium Chloride (Coly-Mycin/NS) 100 ml @ 200 mls/hr Q12 IVPB Last administered on 11/08/16 09:28; Admin Dose 200 MLS/HR; Start at 21:00 Lisinopril (Zestril) 10 mg DAILY PO Last administered on 11/08/16 09:19; Admin Dose 10 MG; Start 11/06/16 at 09:00 Prednisone (Prednisone) 8 mg DAILY PO Last administered on 11/08/16 09:14; Admin Dose 8 MG; Start 11/07/16 at 09:00 Salmeterol Xinafoate/ Fluticasone (Advair 250/50 Diskus) 1 inh BID INH Last administered on 11/08/16 09:20; Admin Dose 1 INH; Start 11/07/16 at 09:00 JUANJO GARNETT M.D. Nov 08, 2016 16:35
[2016-11-08] MEDS: predniSONE 2.5 MG TAB PO SCH (18:22)
[2016-11-08 20:00] VITALS: BP 116/64; RESP 20
[2016-11-08] MEDS: ATORVASTATIN 10 MG TAB PO SCH (21:04)
[2016-11-08] MEDS: THEOPHYLLINE (SR) 300 MG CAP PO SCH (21:06)
[2016-11-08] MEDS: MONTELUKAST 10 MG TAB PO SCH (21:06)
[2016-11-08] MEDS: INSULIN GLARGINE [LANtus] 3 ML PEN SC SCH (21:09)
[2016-11-09] MEDS: ALBUTEROL/IPRATROPIUM (NEB) 3 ML AMP HHN SCH ×4 (01:46→19:20)
[2016-11-09] MEDS: ACCU-CHEK XX SCH (02:00)
[2016-11-09 05:26] LABS: AADO2 Arterial 73.3 mmHg (7.0-24.0); Allen Test ACCEPTAB; Arterial Base Excess 8.6 mmol/L (-3.0-3); Arterial COHb 0.4 % (0.0-3.0); Arterial Fraction of Oxyhgb 93.4 % (93.0-99.0); Arterial HCO3 34.9 mmol/L (22.0-26.0); Arterial MetHb 0.4 % (0.0-1.5); Arterial Total Hemglobin 13.1 g/dl (12.0-18.0); MODE NASAL CANNULA
[2016-11-09 05:53] LABS: ADD SCAN DIFF NO
[2016-11-09 05:58] LABS: ABNORMAL IP MESSAGE 1; BASOPHILS % 0.2 % (0.0-2.0); EOSINOPHILS # 0.1 10^3/ul (0.0-0.5); EOSINOPHILS % 0.3 % (0.0-7.0); HEMATOCRIT 28.7 % (42.0-52.0); HEMOGLOBIN 8.8 g/dl (14.0-18.0); LYMPHOCYTES # 1.5 10^3/ul (0.8-2.9); LYMPHOCYTES % 7.5 % (15.0-51.0); MEAN CORPUSCULAR HEMOGLOBIN 32.1 pg (29.0-33.0); MEAN CORPUSCULAR HGB CONC 30.7 g/dl (32.0-37.0); MEAN CORPUSCULAR VOLUME 104.7 fl (82.0-101.0); MEAN PLATELET VOLUME 8.9 fl (7.4-10.4); MONOCYTE # 1.3 10^3/ul (0.3-0.9); MONOCYTES % 6.3 % (0.0-11.0); NEUTROPHIL # 15.2 10^3/ul (1.6-7.5); NEUTROPHILS % 75.2 % (39.0-77.0); PLATELET COUNT 561 10^3/UL (140-415); RED BLOOD COUNT 2.74 10^6/ul (4.70-6.10); RED CELL DISTRIBUTION WIDTH 15.4 % (11.5-14.5); WHITE BLOOD COUNT 20.2 10^3/ul (4.8-10.8)
[2016-11-09 06:16] LABS: POTASSIUM 4.8 mmol/L (3.5-5.1)
[2016-11-09 06:18] LABS: CREATININE 1.25 mg/dl (0.61-1.24)
[2016-11-09 06:19] LABS: CALCIUM 9.5 mg/dl (8.4-10.2)
[2016-11-09 07:10] VITALS: BP 129/69; RESP 20
[2016-11-09] MEDS: INSULIN ASPART [NOVOLOG] 3 ML PEN SC SCH ×8 (08:00→21:00)
[2016-11-09] MEDS: SALMETEROL/FLUTICASONE 250/50 INHA INH SCH ×2 (08:16→21:46)
[2016-11-09] MEDS: FAMOTIDINE 20 MG TAB PO SCH ×2 (08:16→21:48)
[2016-11-09] MEDS: FUROSEMIDE 40 MG TAB PO SCH (08:17)
[2016-11-09] MEDS: ASPIRIN 81 MG TAB PO SCH (08:17)
[2016-11-09] MEDS: AMIODARONE 200 MG TAB PO SCH ×2 (08:18→21:48)
[2016-11-09] MEDS: METOPROLOL (XL) 25 MG TAB PO SCH ×2 (08:19→21:46)
[2016-11-09] MEDS: APIXABAN 5 MG TABLET PO SCH ×2 (08:23→21:48)
[2016-11-09] MEDS: predniSONE 1 MG TAB PO SCH (08:23)
[2016-11-09] MEDS: LISINOPRIL 10 MG TAB PO SCH (08:24)
[2016-11-09] MEDS: MUPIROCIN 2% 22 GM OINT TOP SCH ×2 (08:24→21:49)
[2016-11-09] MEDS: COLISTIMETHATE 75 MG in SOD CHLORIDE 0.9% 100 ML IVPB SCH ×2 (08:28→21:45)
[2016-11-09] MEDS: DIGOXIN 0.125 MG TAB PO SCH (12:08)
--- NOTE | 2016-11-09 12:36 | CONS ---
Date/Time of Note Date/Time of Note DATE: 11/09/16 TIME: 12:35 Assessment/Plan Assessment/Plan Chief Complaint/Hosp Course SUBJECTIVE: No events overnight. The patient is alert, looks comfortable, no fevers. ANTIMICROBIALS: IV Colistin. PHYSICAL EXAMINATION: GENERAL: Well-developed, fragile, elderly man in no distress. HEENT: Head atraumatic, normocephalic. Sclerae anicteric. Buccal mucosa dry. NECK: Supple. CHEST: Rise symmetrical. Breath sounds clear, diminished to bases. HEART: S1, S2. ABDOMEN: Soft, bowel sounds present. EXTREMITIES: No cyanosis. ASSESSMENT: 1. Sepsis, resolving. 2. Multidrug resistant Klebsiella pneumoniae bacteremia 2 to #3. 3. Urinary tract infection. 4. Urinary retention. 5. Bilateral hydronephrosis. 6. Chronic obstructive pulmonary disease, status post pneumonia. 7. Coronary artery disease, history of automatic implantable cardioverter defibrillator, status post interrogation. PLAN: The patient remains stable, repeat bld cx negative, continue abx, monitor renal f-n, f/u urology rec-s dw staff Problems: Consultation Date/Type/Reason Admit Date/Time Sep 28, 2016 at 14:41 Initial Consult Date 09/28/16 Type of Consultation: ID Referring Provider: DEVON MUHAMMAD MD Exam/Review of Systems Vital Signs Vitals Vital Signs Date Time Temp Pulse Resp B/P Pulse Ox O2 Delivery O2 Flow Rate FiO2 11/09/16 08:00 Nasal Cannula 4.0 11/09/16 07:29 97 11/09/16 07:29 60 18 11/09/16 07:10 98.6 129/69 Intake and Output 11/08/16 11/08/16 11/09/16 15:00 23:00 07:00 Intake Total 100 ml 100 ml 720 ml Output Total 600 ml 400 ml Balance -500 ml 100 ml 320 ml Results Result Diagram: 11/09/16 0510 11/09/16 0510 Results 24 hrs Laboratory Tests Test 11/08/16 17:13 11/08/16 21:02 11/09/16 05:00 11/09/16 05:10 Bedside Glucose 154 134 Arterial Blood HCO3 34.9 H Arterial Blood Base Excess 8.6 H Arterial Blood Oxygen Saturation 94.2 L Thomas Test ACCEPTAB Arterial Blood Gas Puncture Site Right Radial Arterial Blood Carboxyhemoglobin 0.4 Arterial Blood Date Drawn 11/09/2016 5:09:07 AM Arterial Blood Methemoglobin 0.4 Arterial Blood pCO2 (Temp correct) 55.6 H Arterial Blood pH (Temp corrected) 7.416 Arterial Blood pO2 (Temp corrected) 75.3 L Blood Gas A-a O2 Differential 73.3 H Blood Gas Modality NASAL CANNULA Blood Gas Notified Time 11/09/2016 5:25:55 AM Blood Gas Notified Whom RTR Blood Gas Specimen Source Blood arterial Blood Gas Temperature 37.0 FiO2 30.0 Oxyhemoglobin Percent 93.4 Total Hemoglobin 13.1 Anion Gap 13 Basophils # 0.0 Basophils % 0.2 Blood Urea Nitrogen 37 H Calcium Level 9.5 Carbon Dioxide Level 38 H Chloride Level 88 L Creatinine 1.25 H Eosinophils # 0.1 Eosinophils % 0.3 Erythrocyte Sedimentation Rate 106 H Glucose Level 88 Hematocrit 28.7 L Hemoglobin 8.8 L Lymphocytes # 1.5 Lymphocytes % 7.5 L Mean Corpuscular Hemoglobin 32.1 Mean Corpuscular Hemoglobin Concent 30.7 L Mean Corpuscular Volume 104.7 H Mean Platelet Volume 8.9 Monocytes # 1.3 H Monocytes % 6.3 Neutrophils # 15.2 H Neutrophils % 75.2 Nucleated Red Blood Cells # 0.0 Nucleated Red Blood Cells % 0.0 Platelet Count 561 H Potassium Level 4.8 Red Blood Count 2.74 L Red Cell Distribution Width 15.4 H Sodium Level 134 L White Blood Count 20.2 H Test 11/09/16 07:52 11/09/16 11:36 Bedside Glucose 171 327 H Medications Medications Current Medications IV Flush (NS 10 ml) 10 ml PRN PRN IV IV PROTOCOL; Start 09/28/16 at 14:00 Ondansetron HCl (Zofran Inj) 4 mg Q6H PRN IV NAUSEA AND/OR VOMITING; Start at 15:00 Nitroglycerin (Nitroglycerin (Sl Tab) 0.4 Mg) 1 tab Q5M PRN SL CHEST PAIN; Start 09/28/16 at 15:00 Acetaminophen (Tylenol Liquid) 650 mg Q6H PRN PO PAIN LEVEL 1-3 OR FEVER Last administered on 11/07/16 05:09; Admin Dose 650 MG; Start 09/28/16 at 15:00 Acetaminophen (Tylenol Tab) 650 mg Q6H PRN PO PAIN LEVEL 1-3 OR FEVER Last administered on 10/28/16 09:00; Admin Dose 650 MG; Start 09/28/16 at 15:00 Morphine Sulfate (morphine) 2 mg Q4H PRN IV PAIN LEVEL 7-10 Last administered on 09/29/16 02:30; Admin Dose 2 MG; Start 09/28/16 at 15:00 Lorazepam (Ativan) 1 mg Q2H PRN IV ANXIETY Last administered on 10/29/16 20:56 ; Admin Dose 1 MG; Start 09/28/16 at 15:00 Docusate Sodium (Colace) 100 mg Q12H PRN PO CONSTIPATION; Start 09/28/16 at 15: 00 Famotidine (Pepcid) 20 mg Q12 PO Last administered on 11/09/16 08:16; Admin Dose 20 MG; Start 09/28/16 at 21:00 Aspirin (Aspirin) 81 mg DAILY PO Last administered on 11/09/16 08:17; Admin Dose 81 MG; Start 09/29/16 at 09:00 Atorvastatin Calcium (Lipitor) 10 mg QHS PO Last administered on 11/08/16 21:04 ; Admin Dose 10 MG; Start 09/28/16 at 21:00 Tiotropium [place] (Spiriva) 1 inh DAILY INH ; Start 09/28/16 at 16:00; Status Future Hold Mupirocin (Bactroban) 1 applic BID TOP Last administered on 11/09/16 08:24; Admin Dose 1 APPLIC; Start 09/30/16 at 09:00 Diagnostic Test (Pha) (Accucheck) 1 ea 02 XX Last administered on 11/03/16 02: 00; Admin Dose 1 EA; Start 10/05/16 at 02:00 Miscellaneous Information 1 ea NOTE XX ; Start 10/04/16 at 09:00 Glucose (Glutose) 15 gm Q15M PRN PO DECREASED GLUCOSE; Start 10/04/16 at 09:00 Glucose (Glutose) 22.5 gm Q15M PRN PO DECREASED GLUCOSE; Start 10/04/16 at 09: 00 Dextrose (D50w Syringe) 25 ml Q15M PRN IV DECREASED GLUCOSE; Start 10/04/16 at 09:00 Dextrose (D50w Syringe) 50 ml Q15M PRN IV DECREASED GLUCOSE; Start 10/04/16 at 09:00 Glucagon (Glucagen) 1 mg Q15M PRN IM DECREASED GLUCOSE; Start 10/04/16 at 09:00 Glucose (Glutose) 15 gm Q15M PRN BUCCAL DECREASED GLUCOSE; Start 10/04/16 at 09 :00 Metoprolol Tartrate (Lopressor) 5 mg Q4 PRN IV HR>110 Hold SBP<100; Start 10/05 at 19:30 Insulin Glargine (Lantus) 15 unit HS SC Last administered on 11/08/16 21:09; Admin Dose 15 UNIT; Start 10/10/16 at 21:00 Montelukast Sodium (Singulair) 10 mg HS PO Last administered on 11/08/16 21:06 ; Admin Dose 10 MG; Start 10/10/16 at 21:00 Theophylline (Benji-24) 300 mg QHS PO Last administered on 11/08/16 21:06; Admin Dose 300 MG; Start 10/10/16 at 21:00 Apixaban (Eliquis) 5 mg BID PO Last administered on 11/09/16 08:23; Admin Dose 5 MG; Start 10/10/16 at 21:00 Digoxin (Digoxin) 0.125 mg DAILY@13 PO Last administered on 11/09/16 12:08; Admin Dose 0.125 MG; Start 10/12/16 at 13:00 Furosemide (Lasix) 40 mg AM PO Last administered on 11/09/16 08:17; Admin Dose 40 MG; Start 10/25/16 at 09:00 Amiodarone HCl (Cordarone) 200 mg BID PO Last administered on 11/09/16 08:18; Admin Dose 200 MG; Start 10/24/16 at 21:00 Metoprolol Succinate (Toprol Xl) 50 mg DAILY PO Last administered on 11/09/16 08:19; Admin Dose 50 MG; Start 10/28/16 at 09:00 Metoprolol Succinate 50 mg 50 mg HS PO Last administered on 11/08/16 21:05; Admin Dose 50 MG; Start 10/28/16 at 21:00 Colistimethate Sodium/Sodium Chloride (Coly-Mycin/NS) 100 ml @ 200 mls/hr Q12 IVPB Last administered on 11/09/16 08:28; Admin Dose 200 MLS/HR; Start at 21:00 Lisinopril (Zestril) 10 mg DAILY PO Last administered on 11/09/16 08:24; Admin Dose 10 MG; Start 11/06/16 at 09:00 Prednisone (Prednisone) 8 mg DAILY PO Last administered on 11/09/16 08:23; Admin Dose 8 MG; Start 11/07/16 at 09:00 Salmeterol Xinafoate/ Fluticasone (Advair 250/50 Diskus) 1 inh BID INH Last administered on 11/09/16 08:16; Admin Dose 1 INH; Start 11/07/16 at 09:00 CODY BRANCH NP Nov 09, 2016 12:35
--- NOTE | 2016-11-09 14:09 | PN ---
Date/Time of Note Date/Time of Note DATE: 11/09/16 TIME: 14:06 Assessment/Plan VTE Prophylaxis VTE Prophylaxis Intervention: other (eliquis) Lines/Catheters IV C[facility] Type [facility]from [facility] Urinary Cath still in place: No Assessment/Plan Assessment/Plan 1. 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 on colistimethate 2. 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 Simpson 3. COPD exacerbation, stable, neb, decrease steroid 4. facility acquired pneumonia, with ESBL E. Coli, and Lauren albicans, treated 5. Atrial fibrillation with RVR, sinus now, follow up with cardiology 6. Congestive heart failure, systolic, chronic, stable 7. Ischemic cardiomyopathy 8. CAD 9. s/p ICD, stable 10. Essential hypertension, stable 11. Dyslipidemia. Continue statin. 12. Hx of Foot Fx- stable 13. DVT prophylaxis: eliquis Subjective 24 Hr Interval Summary Free Text/Dictation afebrile. no shortness of breath Exam/Review of Systems Vital Signs Vitals Vital Signs Date Time Temp Pulse Resp B/P Pulse Ox O2 Delivery O2 Flow Rate FiO2 11/09/16 13:42 89 20 93 Nasal Cannula 3.0 11/09/16 07:10 98.6 129/69 Intake and Output 11/08/16 11/08/16 11/09/16 15:00 23:00 07:00 Intake Total 100 ml 100 ml 720 ml Output Total 600 ml 400 ml Balance -500 ml 100 ml 320 ml Exam Constitutional: alert, oriented, well developed Psych: nl mood/affect, no complaints Head: atraumatic, normocephalic Eyes: EOMI, PERRL, nl conjunctiva, nl lids ENMT: nl external ears & nose, nl lips & teeth, nl nasal mucosa & septum Neck: non-tender, supple Respiratory: clear to auscultation, normal air movement, No congested cough, No crackles/rales, No diminished breath sounds, No intercostal retraction, No labored breathing, No other, No respirations, No tactile fremitus, No wheezing Cardiovascular: nl pulses, regular rate and rhythm, No S3, No S4, No bruits, No diastolic murmur, No edema, No gallop, No irregular rhythm, No jugular venous distention (JVD), No murmurs/extra sounds, No other, No rub, No systolic murmur Gastrointestinal: nl liver, spleen, non-tender, soft, No ascites, No bowel sounds, No distended, No firm, No hepatomegaly, No mass , No other, No rebound or guarding, No splenomegaly, No surgical scars, No tender Musculoskeletal: nl extremities to inspection Extremities: normal pulses, No calf tenderness, No clubbing, No cyanosis, No edema, No other, No palpable cord, No pitting pedal edema, No tenderness Neurological: HOGSHEAD STRIPPER II-XII intact, nl mental status, nl speech, nl strength Skin: nl turgor Lymph: nl lymph nodes Results Result Diagram: 11/09/16 0510 11/09/16 0510 Results 24 hrs Laboratory Tests Test 11/08/16 17:13 11/08/16 21:02 11/09/16 05:00 11/09/16 05:10 Bedside Glucose 154 134 Arterial Blood HCO3 34.9 H Arterial Blood Base Excess 8.6 H Arterial Blood Oxygen Saturation 94.2 L Thomas Test ACCEPTAB Arterial Blood Gas Puncture Site Right Radial Arterial Blood Carboxyhemoglobin 0.4 Arterial Blood Date Drawn 11/09/2016 5:09:07 AM Arterial Blood Methemoglobin 0.4 Arterial Blood pCO2 (Temp correct) 55.6 H Arterial Blood pH (Temp corrected) 7.416 Arterial Blood pO2 (Temp corrected) 75.3 L Blood Gas A-a O2 Differential 73.3 H Blood Gas Modality NASAL CANNULA Blood Gas Notified Time 11/09/2016 5:25:55 AM Blood Gas Notified Whom RTR Blood Gas Specimen Source Blood arterial Blood Gas Temperature 37.0 FiO2 30.0 Oxyhemoglobin Percent 93.4 Total Hemoglobin 13.1 Anion Gap 13 Basophils # 0.0 Basophils % 0.2 Blood Urea Nitrogen 37 H Calcium Level 9.5 Carbon Dioxide Level 38 H Chloride Level 88 L Creatinine 1.25 H Eosinophils # 0.1 Eosinophils % 0.3 Erythrocyte Sedimentation Rate 106 H Glucose Level 88 Hematocrit 28.7 L Hemoglobin 8.8 L Lymphocytes # 1.5 Lymphocytes % 7.5 L Mean Corpuscular Hemoglobin 32.1 Mean Corpuscular Hemoglobin Concent 30.7 L Mean Corpuscular Volume 104.7 H Mean Platelet Volume 8.9 Monocytes # 1.3 H Monocytes % 6.3 Neutrophils # 15.2 H Neutrophils % 75.2 Nucleated Red Blood Cells # 0.0 Nucleated Red Blood Cells % 0.0 Platelet Count 561 H Potassium Level 4.8 Red Blood Count 2.74 L Red Cell Distribution Width 15.4 H Sodium Level 134 L White Blood Count 20.2 H Test 11/09/16 07:52 11/09/16 11:36 Bedside Glucose 171 327 H Medications Medications Current Medications IV Flush (NS 10 ml) 10 ml PRN PRN IV IV PROTOCOL; Start 09/28/16 at 14:00 Ondansetron HCl (Zofran Inj) 4 mg Q6H PRN IV NAUSEA AND/OR VOMITING; Start at 15:00 Nitroglycerin (Nitroglycerin (Sl Tab) 0.4 Mg) 1 tab Q5M PRN SL CHEST PAIN; Start 09/28/16 at 15:00 Acetaminophen (Tylenol Liquid) 650 mg Q6H PRN PO PAIN LEVEL 1-3 OR FEVER Last administered on 11/07/16 05:09; Admin Dose 650 MG; Start 09/28/16 at 15:00 Acetaminophen (Tylenol Tab) 650 mg Q6H PRN PO PAIN LEVEL 1-3 OR FEVER Last administered on 10/28/16 09:00; Admin Dose 650 MG; Start 09/28/16 at 15:00 Morphine Sulfate (morphine) 2 mg Q4H PRN IV PAIN LEVEL 7-10 Last administered on 09/29/16 02:30; Admin Dose 2 MG; Start 09/28/16 at 15:00 Lorazepam (Ativan) 1 mg Q2H PRN IV ANXIETY Last administered on 10/29/16 20:56 ; Admin Dose 1 MG; Start 09/28/16 at 15:00 Docusate Sodium (Colace) 100 mg Q12H PRN PO CONSTIPATION; Start 09/28/16 at 15: 00 Famotidine (Pepcid) 20 mg Q12 PO Last administered on 11/09/16 08:16; Admin Dose 20 MG; Start 09/28/16 at 21:00 Aspirin (Aspirin) 81 mg DAILY PO Last administered on 11/09/16 08:17; Admin Dose 81 MG; Start 09/29/16 at 09:00 Atorvastatin Calcium (Lipitor) 10 mg QHS PO Last administered on 11/08/16 21:04 ; Admin Dose 10 MG; Start 09/28/16 at 21:00 Tiotropium [place] (Spiriva) 1 inh DAILY INH ; Start 09/28/16 at 16:00; Status Future Hold Mupirocin (Bactroban) 1 applic BID TOP Last administered on 11/09/16 08:24; Admin Dose 1 APPLIC; Start 09/30/16 at 09:00 Diagnostic Test (Pha) (Accucheck) 1 ea 02 XX Last administered on 11/03/16 02: 00; Admin Dose 1 EA; Start 10/05/16 at 02:00 Miscellaneous Information 1 ea NOTE XX ; Start 10/04/16 at 09:00 Glucose (Glutose) 15 gm Q15M PRN PO DECREASED GLUCOSE; Start 10/04/16 at 09:00 Glucose (Glutose) 22.5 gm Q15M PRN PO DECREASED GLUCOSE; Start 10/04/16 at 09: 00 Dextrose (D50w Syringe) 25 ml Q15M PRN IV DECREASED GLUCOSE; Start 10/04/16 at 09:00 Dextrose (D50w Syringe) 50 ml Q15M PRN IV DECREASED GLUCOSE; Start 10/04/16 at 09:00 Glucagon (Glucagen) 1 mg Q15M PRN IM DECREASED GLUCOSE; Start 10/04/16 at 09:00 Glucose (Glutose) 15 gm Q15M PRN BUCCAL DECREASED GLUCOSE; Start 10/04/16 at 09 :00 Metoprolol Tartrate (Lopressor) 5 mg Q4 PRN IV HR>110 Hold SBP<100; Start 10/05 at 19:30 Insulin Glargine (Lantus) 15 unit HS SC Last administered on 11/08/16 21:09; Admin Dose 15 UNIT; Start 10/10/16 at 21:00 Montelukast Sodium (Singulair) 10 mg HS PO Last administered on 11/08/16 21:06 ; Admin Dose 10 MG; Start 10/10/16 at 21:00 Theophylline (Benji-24) 300 mg QHS PO Last administered on 11/08/16 21:06; Admin Dose 300 MG; Start 10/10/16 at 21:00 Apixaban (Eliquis) 5 mg BID PO Last administered on 11/09/16 08:23; Admin Dose 5 MG; Start 10/10/16 at 21:00 Digoxin (Digoxin) 0.125 mg DAILY@13 PO Last administered on 11/09/16 12:08; Admin Dose 0.125 MG; Start 10/12/16 at 13:00 Furosemide (Lasix) 40 mg AM PO Last administered on 11/09/16 08:17; Admin Dose 40 MG; Start 10/25/16 at 09:00 Amiodarone HCl (Cordarone) 200 mg BID PO Last administered on 11/09/16 08:18; Admin Dose 200 MG; Start 10/24/16 at 21:00 Metoprolol Succinate (Toprol Xl) 50 mg DAILY PO Last administered on 11/09/16 08:19; Admin Dose 50 MG; Start 10/28/16 at 09:00 Metoprolol Succinate 50 mg 50 mg HS PO Last administered on 11/08/16 21:05; Admin Dose 50 MG; Start 10/28/16 at 21:00 Colistimethate Sodium/Sodium Chloride (Coly-Mycin/NS) 100 ml @ 200 mls/hr Q12 IVPB Last administered on 11/09/16 08:28; Admin Dose 200 MLS/HR; Start at 21:00 Lisinopril (Zestril) 10 mg DAILY PO Last administered on 11/09/16 08:24; Admin Dose 10 MG; Start 11/06/16 at 09:00 Prednisone (Prednisone) 8 mg DAILY PO Last administered on 11/09/16 08:23; Admin Dose 8 MG; Start 11/07/16 at 09:00 Salmeterol Xinafoate/ Fluticasone (Advair 250/50 Diskus) 1 inh BID INH Last administered on 11/09/16 08:16; Admin Dose 1 INH; Start 11/07/16 at 09:00 FUNMI MEZA MD Nov 09, 2016 14:09
--- NOTE | 2016-11-09 15:03 | CONS ---
Date/Time of Note Date/Time of Note DATE: 11/09/16 TIME: 15:00 Assessment/Plan Assessment/Plan Chief Complaint/Hosp Course IMPRESSION: 1. Atrial fibrillation with rapid ventricular response.-improved HR and now back in SR when last on tele 2. Congestive heart failure, systolic, acute on chronic. 3. History of cardiomyopathy with decreased left ventricular ejection fraction 20% to 25% per chart biopsy. 4. Shortness of breath. 5. Status post hypercapnic respiratory failure, status post extubation. 6. Chronic obstructive pulmonary disease. 7. Hypertension. 8. Dyslipidemia. 9. History of automatic implantable cardioverter-defibrillator with possible discharge.-s/p interrogation with ICD shock for uncontrolled rapid AF. 10. Pneumonia. 11.Positive troponin-minimal with no sig uptrend 12.UTI-Klebs 14.Bacteremia-Klebs/persistent-most recent Bld cx's negative Recc -Tele -Continue asa/Eliquis -ACEI/BB as tolerated -Continue digoxin -Continue statin -Follow volume status and continue lasix PO daily -Continue abx's and f/u cx data and -awaiting placement Problems: Consultation Date/Type/Reason Admit Date/Time Sep 28, 2016 at 14:41 Initial Consult Date 09/28/16 Type of Consultation: Cardiology Reason for Consultation cardiomyopathy/ICD discharge Referring Provider: DEVON MUHAMMAD MD Exam/Review of Systems Vital Signs Vitals Vital Signs Date Time Temp Pulse Resp B/P Pulse Ox O2 Delivery O2 Flow Rate FiO2 11/09/16 13:42 89 20 93 Nasal Cannula 3.0 11/09/16 07:10 98.6 129/69 Intake and Output 11/08/16 11/08/16 11/09/16 15:00 23:00 07:00 Intake Total 100 ml 100 ml 720 ml Output Total 600 ml 400 ml Balance -500 ml 100 ml 320 ml Exam Review of Systems: CONSTITUTIONAL: No fevers, chills. PULMONARY: No sob CARDIOVASCULAR: No chest pain/palpitations GASTROINTESTINAL: No nausea/vomiting. GENITOURINARY: No hematuria/dysuria. MUSCULOSKELETAL: No myagias/arthalgias. PSYCHIATRIC: The patient denies depression. NEUROLOGIC: No weakness Constitutional: alert, oriented, well developed Psych: no complaints Head: normocephalic ENMT: mucosa pink and moist Neck: jvd (8 cm water), supple Respiratory: clear to auscultation Cardiovascular: irregular rhythm, regular rate and rhythm Gastrointestinal: non-tender, soft Musculoskeletal: muscle tone (normal) Extremities: edema (none) Neurological: other (No focal deficits) Results Result Diagram: 11/09/16 0510 11/09/16 0510 Results 24 hrs Laboratory Tests Test 11/08/16 17:13 11/08/16 21:02 11/09/16 05:00 11/09/16 05:10 Bedside Glucose 154 134 Arterial Blood HCO3 34.9 H Arterial Blood Base Excess 8.6 H Arterial Blood Oxygen Saturation 94.2 L Thomas Test ACCEPTAB Arterial Blood Gas Puncture Site Right Radial Arterial Blood Carboxyhemoglobin 0.4 Arterial Blood Date Drawn 11/09/2016 5:09:07 AM Arterial Blood Methemoglobin 0.4 Arterial Blood pCO2 (Temp correct) 55.6 H Arterial Blood pH (Temp corrected) 7.416 Arterial Blood pO2 (Temp corrected) 75.3 L Blood Gas A-a O2 Differential 73.3 H Blood Gas Modality NASAL CANNULA Blood Gas Notified Time 11/09/2016 5:25:55 AM Blood Gas Notified Whom RTR Blood Gas Specimen Source Blood arterial Blood Gas Temperature 37.0 FiO2 30.0 Oxyhemoglobin Percent 93.4 Total Hemoglobin 13.1 Anion Gap 13 Basophils # 0.0 Basophils % 0.2 Blood Urea Nitrogen 37 H Calcium Level 9.5 Carbon Dioxide Level 38 H Chloride Level 88 L Creatinine 1.25 H Eosinophils # 0.1 Eosinophils % 0.3 Erythrocyte Sedimentation Rate 106 H Glucose Level 88 Hematocrit 28.7 L Hemoglobin 8.8 L Lymphocytes # 1.5 Lymphocytes % 7.5 L Mean Corpuscular Hemoglobin 32.1 Mean Corpuscular Hemoglobin Concent 30.7 L Mean Corpuscular Volume 104.7 H Mean Platelet Volume 8.9 Monocytes # 1.3 H Monocytes % 6.3 Neutrophils # 15.2 H Neutrophils % 75.2 Nucleated Red Blood Cells # 0.0 Nucleated Red Blood Cells % 0.0 Platelet Count 561 H Potassium Level 4.8 Red Blood Count 2.74 L Red Cell Distribution Width 15.4 H Sodium Level 134 L White Blood Count 20.2 H Test 11/09/16 07:52 11/09/16 11:36 Bedside Glucose 171 327 H Medications Medications Current Medications IV Flush (NS 10 ml) 10 ml PRN PRN IV IV PROTOCOL; Start 09/28/16 at 14:00 Ondansetron HCl (Zofran Inj) 4 mg Q6H PRN IV NAUSEA AND/OR VOMITING; Start at 15:00 Nitroglycerin (Nitroglycerin (Sl Tab) 0.4 Mg) 1 tab Q5M PRN SL CHEST PAIN; Start 09/28/16 at 15:00 Acetaminophen (Tylenol Liquid) 650 mg Q6H PRN PO PAIN LEVEL 1-3 OR FEVER Last administered on 11/07/16 05:09; Admin Dose 650 MG; Start 09/28/16 at 15:00 Acetaminophen (Tylenol Tab) 650 mg Q6H PRN PO PAIN LEVEL 1-3 OR FEVER Last administered on 10/28/16 09:00; Admin Dose 650 MG; Start 09/28/16 at 15:00 Morphine Sulfate (morphine) 2 mg Q4H PRN IV PAIN LEVEL 7-10 Last administered on 09/29/16 02:30; Admin Dose 2 MG; Start 09/28/16 at 15:00 Lorazepam (Ativan) 1 mg Q2H PRN IV ANXIETY Last administered on 10/29/16 20:56 ; Admin Dose 1 MG; Start 09/28/16 at 15:00 Docusate Sodium (Colace) 100 mg Q12H PRN PO CONSTIPATION; Start 09/28/16 at 15: 00 Famotidine (Pepcid) 20 mg Q12 PO Last administered on 11/09/16 08:16; Admin Dose 20 MG; Start 09/28/16 at 21:00 Aspirin (Aspirin) 81 mg DAILY PO Last administered on 11/09/16 08:17; Admin Dose 81 MG; Start 09/29/16 at 09:00 Atorvastatin Calcium (Lipitor) 10 mg QHS PO Last administered on 11/08/16 21:04 ; Admin Dose 10 MG; Start 09/28/16 at 21:00 Tiotropium [place] (Spiriva) 1 inh DAILY INH ; Start 09/28/16 at 16:00; Status Future Hold Mupirocin (Bactroban) 1 applic BID TOP Last administered on 11/09/16 08:24; Admin Dose 1 APPLIC; Start 09/30/16 at 09:00 Diagnostic Test (Pha) (Accucheck) 1 ea 02 XX Last administered on 11/03/16 02: 00; Admin Dose 1 EA; Start 10/05/16 at 02:00 Miscellaneous Information 1 ea NOTE XX ; Start 10/04/16 at 09:00 Glucose (Glutose) 15 gm Q15M PRN PO DECREASED GLUCOSE; Start 10/04/16 at 09:00 Glucose (Glutose) 22.5 gm Q15M PRN PO DECREASED GLUCOSE; Start 10/04/16 at 09: 00 Dextrose (D50w Syringe) 25 ml Q15M PRN IV DECREASED GLUCOSE; Start 10/04/16 at 09:00 Dextrose (D50w Syringe) 50 ml Q15M PRN IV DECREASED GLUCOSE; Start 10/04/16 at 09:00 Glucagon (Glucagen) 1 mg Q15M PRN IM DECREASED GLUCOSE; Start 10/04/16 at 09:00 Glucose (Glutose) 15 gm Q15M PRN BUCCAL DECREASED GLUCOSE; Start 10/04/16 at 09 :00 Metoprolol Tartrate (Lopressor) 5 mg Q4 PRN IV HR>110 Hold SBP<100; Start 10/05 at 19:30 Insulin Glargine (Lantus) 15 unit HS SC Last administered on 11/08/16 21:09; Admin Dose 15 UNIT; Start 10/10/16 at 21:00 Montelukast Sodium (Singulair) 10 mg HS PO Last administered on 11/08/16 21:06 ; Admin Dose 10 MG; Start 10/10/16 at 21:00 Theophylline (Benji-24) 300 mg QHS PO Last administered on 11/08/16 21:06; Admin Dose 300 MG; Start 10/10/16 at 21:00 Apixaban (Eliquis) 5 mg BID PO Last administered on 11/09/16 08:23; Admin Dose 5 MG; Start 10/10/16 at 21:00 Digoxin (Digoxin) 0.125 mg DAILY@13 PO Last administered on 11/09/16 12:08; Admin Dose 0.125 MG; Start 10/12/16 at 13:00 Furosemide (Lasix) 40 mg AM PO Last administered on 11/09/16 08:17; Admin Dose 40 MG; Start 10/25/16 at 09:00 Amiodarone HCl (Cordarone) 200 mg BID PO Last administered on 11/09/16 08:18; Admin Dose 200 MG; Start 10/24/16 at 21:00 Metoprolol Succinate (Toprol Xl) 50 mg DAILY PO Last administered on 11/09/16 08:19; Admin Dose 50 MG; Start 10/28/16 at 09:00 Metoprolol Succinate 50 mg 50 mg HS PO Last administered on 11/08/16 21:05; Admin Dose 50 MG; Start 10/28/16 at 21:00 Colistimethate Sodium/Sodium Chloride (Coly-Mycin/NS) 100 ml @ 200 mls/hr Q12 IVPB Last administered on 11/09/16 08:28; Admin Dose 200 MLS/HR; Start at 21:00 Lisinopril (Zestril) 10 mg DAILY PO Last administered on 11/09/16 08:24; Admin Dose 10 MG; Start 11/06/16 at 09:00 Prednisone (Prednisone) 8 mg DAILY PO Last administered on 11/09/16 08:23; Admin Dose 8 MG; Start 11/07/16 at 09:00 Salmeterol Xinafoate/ Fluticasone (Advair 250/50 Diskus) 1 inh BID INH Last administered on 11/09/16 08:16; Admin Dose 1 INH; Start 11/07/16 at 09:00 СВЕТЛАНА PADRON Nov 09, 2016 15:03
[2016-11-09] MEDS: predniSONE 2.5 MG TAB PO SCH (17:22)
[2016-11-09 19:30] VITALS: BP 91/68; RESP 20
[2016-11-09 21:45] VITALS: BP 112/66; PULSE 60
[2016-11-09] MEDS: MONTELUKAST 10 MG TAB PO SCH (21:45)
[2016-11-09] MEDS: THEOPHYLLINE (SR) 300 MG CAP PO SCH (21:45)
[2016-11-09] MEDS: INSULIN GLARGINE [LANtus] 3 ML PEN SC SCH (21:47)
[2016-11-09] MEDS: ATORVASTATIN 10 MG TAB PO SCH (21:48)
--- NOTE | 2016-11-09 23:58 | PN ---
DATE: 11/09/2016 SUBJECTIVE: Urinary retention. The patient has not been able to urinate on his own and he has been undergoing in and out catheterization. OBJECTIVE: VITAL SIGNS: His temperature is 98.6, pulse 89, respiration 20, blood pressure 129/69. ABDOMEN: Soft. The in and out catheterization yielded about 400 and another time 260 mL. The patient, however, is not urinating anything on his own. Urine culture is Klebsiella pneumoniae and it is resistant to al l antibiotics except nitrofurantoin. The patient is being followed by the infectious disease people and they will decide on antibiotic management. Dictated By: JOSÉ PATTERSON MD BB/NTS Conf#: [id number] DID#: [id number] CC: GLENDY ESCOBAR MD;*End*
[2016-11-10] MEDS: ALBUTEROL/IPRATROPIUM (NEB) 3 ML AMP HHN SCH ×4 (01:00→19:55)
[2016-11-10] MEDS: ACCU-CHEK XX SCH (01:35)
[2016-11-10 05:24] LABS: ADD SCAN DIFF NO
[2016-11-10 05:33] LABS: ABNORMAL IP MESSAGE 1; BASOPHIL # 0.1 10^3/ul (0.0-0.1); BASOPHILS % 0.5 % (0.0-2.0); EOSINOPHILS # 0.1 10^3/ul (0.0-0.5); EOSINOPHILS % 0.3 % (0.0-7.0); HEMATOCRIT 27.4 % (42.0-52.0); HEMOGLOBIN 8.5 g/dl (14.0-18.0); LYMPHOCYTES # 1.5 10^3/ul (0.8-2.9); LYMPHOCYTES % 7.7 % (15.0-51.0); MEAN CORPUSCULAR HEMOGLOBIN 32.1 pg (29.0-33.0); MEAN CORPUSCULAR VOLUME 103.4 fl (82.0-101.0); MEAN PLATELET VOLUME 9.2 fl (7.4-10.4); MONOCYTE # 1.3 10^3/ul (0.3-0.9); MONOCYTES % 6.6 % (0.0-11.0); NEUTROPHIL # 14.5 10^3/ul (1.6-7.5); NEUTROPHILS % 76.6 % (39.0-77.0); PLATELET COUNT 530 10^3/UL (140-415); RED BLOOD COUNT 2.65 10^6/ul (4.70-6.10); RED CELL DISTRIBUTION WIDTH 15.5 % (11.5-14.5); WHITE BLOOD COUNT 18.9 10^3/ul (4.8-10.8)
[2016-11-10 05:41] LABS: POTASSIUM 4.9 mmol/L (3.5-5.1)
[2016-11-10 05:44] LABS: CALCIUM 9.5 mg/dl (8.4-10.2); CREATININE 1.24 mg/dl (0.61-1.24)
[2016-11-10 07:35] VITALS: BP 115/60; RESP 19
[2016-11-10] MEDS: INSULIN ASPART [NOVOLOG] 3 ML PEN SC SCH ×7 (08:00→21:00)
[2016-11-10] MEDS: COLISTIMETHATE 75 MG in SOD CHLORIDE 0.9% 100 ML IVPB SCH ×2 (08:18→21:39)
[2016-11-10] MEDS: FAMOTIDINE 20 MG TAB PO SCH ×2 (08:19→21:40)
[2016-11-10] MEDS: FUROSEMIDE 40 MG TAB PO SCH (08:19)
[2016-11-10] MEDS: ASPIRIN 81 MG TAB PO SCH (08:19)
[2016-11-10] MEDS: SALMETEROL/FLUTICASONE 250/50 INHA INH SCH ×2 (08:19→21:40)
[2016-11-10] MEDS: AMIODARONE 200 MG TAB PO SCH ×2 (08:19→21:41)
[2016-11-10] MEDS: APIXABAN 5 MG TABLET PO SCH ×2 (08:20→21:41)
[2016-11-10] MEDS: METOPROLOL (XL) 25 MG TAB PO SCH ×2 (08:20→21:41)
[2016-11-10] MEDS: LISINOPRIL 10 MG TAB PO SCH (08:20)
[2016-11-10] MEDS: predniSONE 1 MG TAB PO SCH (08:21)
[2016-11-10] MEDS: MUPIROCIN 2% 22 GM OINT TOP SCH ×2 (08:21→21:43)
--- NOTE | 2016-11-10 12:32 | CONS ---
Date/Time of Note Date/Time of Note DATE: 11/10/16 TIME: 12:31 Assessment/Plan Assessment/Plan Chief Complaint/Hosp Course SUBJECTIVE: No events overnight. The patient is alert, no fevers, nad. ANTIMICROBIALS: IV Colistin. PHYSICAL EXAMINATION: GENERAL: Well-developed, fragile, elderly man in no distress. HEENT: Head atraumatic, normocephalic. Sclerae anicteric. Buccal mucosa dry. NECK: Supple. CHEST: Rise symmetrical. Breath sounds clear, diminished to bases. HEART: S1, S2. ABDOMEN: Soft, bowel sounds present. EXTREMITIES: No cyanosis. ASSESSMENT: 1. Sepsis, resolving. 2. Multidrug resistant Klebsiella pneumoniae bacteremia 2 to #3. 3. Urinary tract infection. 4. Urinary retention. 5. Bilateral hydronephrosis. 6. Chronic obstructive pulmonary disease, status post pneumonia. 7. Coronary artery disease, history of automatic implantable cardioverter defibrillator, status post interrogation. PLAN: The patient remains stable, repeat bld cx negative, continue abx, monitor renal f-n, f/u urology rec-s==> straight cath prn dw staff Problems: Consultation Date/Type/Reason Admit Date/Time Sep 28, 2016 at 14:41 Initial Consult Date 09/28/16 Type of Consultation: ID Referring Provider: DEVON MUHAMMAD MD Exam/Review of Systems Vital Signs Vitals Vital Signs Date Time Temp Pulse Resp B/P Pulse Ox O2 Delivery O2 Flow Rate FiO2 11/10/16 11:28 Nasal Cannula 4.0 11/10/16 07:56 68 18 95 11/10/16 07:35 98.0 115/60 Intake and Output 11/09/16 11/09/16 11/10/16 15:00 23:00 07:00 Intake Total 100 ml 450 ml 360 ml Output Total 900 ml 1200 ml Balance 100 ml -450 ml -840 ml Results Result Diagram: 11/10/16 0433 11/10/16 0433 Results 24 hrs Laboratory Tests Test 11/09/16 17:21 11/09/16 19:55 11/10/16 04:33 11/10/16 07:27 Bedside Glucose 137 114 130 Anion Gap 14 Basophils # 0.1 Basophils % 0.5 Blood Urea Nitrogen 42 H Calcium Level 9.5 Carbon Dioxide Level 34 H Chloride Level 93 L Creatinine 1.24 Eosinophils # 0.1 Eosinophils % 0.3 Glucose Level 102 Hematocrit 27.4 L Hemoglobin 8.5 L Lymphocytes # 1.5 Lymphocytes % 7.7 L Mean Corpuscular Hemoglobin 32.1 Mean Corpuscular Hemoglobin Concent 31.0 L Mean Corpuscular Volume 103.4 H Mean Platelet Volume 9.2 Monocytes # 1.3 H Monocytes % 6.6 Neutrophils # 14.5 H Neutrophils % 76.6 Nucleated Red Blood Cells # 0.0 Nucleated Red Blood Cells % 0.0 Platelet Count 530 H Potassium Level 4.9 Red Blood Count 2.65 L Red Cell Distribution Width 15.5 H Sodium Level 136 White Blood Count 18.9 H Test 11/10/16 11:46 Bedside Glucose 107 Medications Medications Current Medications IV Flush (NS 10 ml) 10 ml PRN PRN IV IV PROTOCOL; Start 09/28/16 at 14:00 Ondansetron HCl (Zofran Inj) 4 mg Q6H PRN IV NAUSEA AND/OR VOMITING; Start at 15:00 Nitroglycerin (Nitroglycerin (Sl Tab) 0.4 Mg) 1 tab Q5M PRN SL CHEST PAIN; Start 09/28/16 at 15:00 Acetaminophen (Tylenol Liquid) 650 mg Q6H PRN PO PAIN LEVEL 1-3 OR FEVER Last administered on 11/07/16 05:09; Admin Dose 650 MG; Start 09/28/16 at 15:00 Acetaminophen (Tylenol Tab) 650 mg Q6H PRN PO PAIN LEVEL 1-3 OR FEVER Last administered on 10/28/16 09:00; Admin Dose 650 MG; Start 09/28/16 at 15:00 Morphine Sulfate (morphine) 2 mg Q4H PRN IV PAIN LEVEL 7-10 Last administered on 09/29/16 02:30; Admin Dose 2 MG; Start 09/28/16 at 15:00 Lorazepam (Ativan) 1 mg Q2H PRN IV ANXIETY Last administered on 10/29/16 20:56 ; Admin Dose 1 MG; Start 09/28/16 at 15:00 Docusate Sodium (Colace) 100 mg Q12H PRN PO CONSTIPATION; Start 09/28/16 at 15: 00 Famotidine (Pepcid) 20 mg Q12 PO Last administered on 11/10/16 08:19; Admin Dose 20 MG; Start 09/28/16 at 21:00 Aspirin (Aspirin) 81 mg DAILY PO Last administered on 11/10/16 08:19; Admin Dose 81 MG; Start 09/29/16 at 09:00 Atorvastatin Calcium (Lipitor) 10 mg QHS PO Last administered on 11/09/16 21:48 ; Admin Dose 10 MG; Start 09/28/16 at 21:00 Tiotropium [place] (Spiriva) 1 inh DAILY INH ; Start 09/28/16 at 16:00; Status Future Hold Mupirocin (Bactroban) 1 applic BID TOP Last administered on 11/10/16 08:21; Admin Dose 1 APPLIC; Start 09/30/16 at 09:00 Diagnostic Test (Pha) (Accucheck) 1 ea 02 XX Last administered on 11/03/16 02: 00; Admin Dose 1 EA; Start 10/05/16 at 02:00 Miscellaneous Information 1 ea NOTE XX ; Start 10/04/16 at 09:00 Glucose (Glutose) 15 gm Q15M PRN PO DECREASED GLUCOSE; Start 10/04/16 at 09:00 Glucose (Glutose) 22.5 gm Q15M PRN PO DECREASED GLUCOSE; Start 10/04/16 at 09: 00 Dextrose (D50w Syringe) 25 ml Q15M PRN IV DECREASED GLUCOSE; Start 10/04/16 at 09:00 Dextrose (D50w Syringe) 50 ml Q15M PRN IV DECREASED GLUCOSE; Start 10/04/16 at 09:00 Glucagon (Glucagen) 1 mg Q15M PRN IM DECREASED GLUCOSE; Start 10/04/16 at 09:00 Glucose (Glutose) 15 gm Q15M PRN BUCCAL DECREASED GLUCOSE; Start 10/04/16 at 09 :00 Metoprolol Tartrate (Lopressor) 5 mg Q4 PRN IV HR>110 Hold SBP<100; Start 10/05 at 19:30 Insulin Glargine (Lantus) 15 unit HS SC Last administered on 11/09/16 21:47; Admin Dose 15 UNIT; Start 10/10/16 at 21:00 Montelukast Sodium (Singulair) 10 mg HS PO Last administered on 11/09/16 21:45 ; Admin Dose 10 MG; Start 10/10/16 at 21:00 Theophylline (Benji-24) 300 mg QHS PO Last administered on 11/09/16 21:45; Admin Dose 300 MG; Start 10/10/16 at 21:00 Apixaban (Eliquis) 5 mg BID PO Last administered on 11/10/16 08:20; Admin Dose 5 MG; Start 10/10/16 at 21:00 Digoxin (Digoxin) 0.125 mg DAILY@13 PO Last administered on 11/09/16 12:08; Admin Dose 0.125 MG; Start 10/12/16 at 13:00 Furosemide (Lasix) 40 mg AM PO Last administered on 11/10/16 08:19; Admin Dose 40 MG; Start 10/25/16 at 09:00 Amiodarone HCl (Cordarone) 200 mg BID PO Last administered on 11/10/16 08:19; Admin Dose 200 MG; Start 10/24/16 at 21:00 Metoprolol Succinate (Toprol Xl) 50 mg DAILY PO Last administered on 11/10/16 08:20; Admin Dose 50 MG; Start 10/28/16 at 09:00 Metoprolol Succinate 50 mg 50 mg HS PO Last administered on 11/09/16 21:46; Admin Dose 50 MG; Start 10/28/16 at 21:00 Colistimethate Sodium/Sodium Chloride (Coly-Mycin/NS) 100 ml @ 200 mls/hr Q12 IVPB Last administered on 11/10/16 08:18; Admin Dose 200 MLS/HR; Start at 21:00 Lisinopril (Zestril) 10 mg DAILY PO Last administered on 11/10/16 08:20; Admin Dose 10 MG; Start 11/06/16 at 09:00 Prednisone (Prednisone) 8 mg DAILY PO Last administered on 11/10/16 08:21; Admin Dose 8 MG; Start 11/07/16 at 09:00 Salmeterol Xinafoate/ Fluticasone (Advair 250/50 Diskus) 1 inh BID INH Last administered on 11/10/16 08:19; Admin Dose 1 INH; Start 11/07/16 at 09:00 CODY BRANCH NP Nov 10, 2016 12:32
[2016-11-10] MEDS: DIGOXIN 0.125 MG TAB PO SCH (13:35)
--- NOTE | 2016-11-10 14:57 | PN ---
Date/Time of Note Date/Time of Note DATE: 11/10/16 TIME: 14:55 Assessment/Plan VTE Prophylaxis VTE Prophylaxis Intervention: other (eiquis) Lines/Catheters IV Catheter Type (from Nrs): Sal[place] Lock Urinary Cath still in place: No Assessment/Plan Assessment/Plan 1. 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 on colistimethate 2. 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 Simpson 3. COPD exacerbation, stable, neb, decrease steroid 4. facility acquired pneumonia, with ESBL E. Coli, and Lauren albicans, treated 5. Atrial fibrillation with RVR, sinus now, follow up with cardiology 6. Congestive heart failure, systolic, chronic, stable 7. Ischemic cardiomyopathy 8. CAD 9. s/p ICD, stable 10. Essential hypertension, stable 11. Dyslipidemia. Continue statin. 12. Hx of Foot Fx- stable 13. DVT prophylaxis: eliquis 14. Awaiting for placement Subjective 24 Hr Interval Summary Free Text/Dictation no event Exam/Review of Systems Vital Signs Vitals Vital Signs Date Time Temp Pulse Resp B/P Pulse Ox O2 Delivery O2 Flow Rate FiO2 11/10/16 14:08 63 18 93 Nasal Cannula 3.0 11/10/16 07:35 98.0 115/60 Intake and Output 11/09/16 11/09/16 11/10/16 15:00 23:00 07:00 Intake Total 100 ml 450 ml 360 ml Output Total 900 ml 1200 ml Balance 100 ml -450 ml -840 ml Exam Constitutional: oriented, well developed Psych: nl mood/affect, no complaints Head: atraumatic, normocephalic Eyes: EOMI, nl conjunctiva, nl lids ENMT: nl external ears & nose, nl lips & teeth, nl nasal mucosa & septum Neck: supple Respiratory: clear to auscultation, normal air movement, No congested cough, No crackles/rales, No diminished breath sounds, No intercostal retraction, No labored breathing, No other, No respirations, No tactile fremitus, No wheezing Cardiovascular: irregular rhythm, nl pulses, No S3, No S4, No bruits, No diastolic murmur, No edema, No gallop, No jugular venous distention (JVD), No murmurs/extra sounds, No other, No rub, No systolic murmur Gastrointestinal: nl liver, spleen, non-tender, soft, No ascites, No bowel sounds, No distended, No firm, No hepatomegaly, No mass , No other, No rebound or guarding, No splenomegaly, No surgical scars, No tender Musculoskeletal: nl extremities to inspection Extremities: normal pulses, No calf tenderness, No clubbing, No cyanosis, No edema, No other, No palpable cord, No pitting pedal edema, No tenderness Neurological: HEADING MAKER II-XII intact, nl mental status, nl speech, nl strength Skin: nl turgor Results Result Diagram: 11/10/163 11/10/16 0433 Results 24 hrs Laboratory Tests Test 11/09/16 17:21 11/09/16 19:55 11/10/16 04:33 11/10/16 07:27 Bedside Glucose 137 114 130 Anion Gap 14 Basophils # 0.1 Basophils % 0.5 Blood Urea Nitrogen 42 H Calcium Level 9.5 Carbon Dioxide Level 34 H Chloride Level 93 L Creatinine 1.24 Eosinophils # 0.1 Eosinophils % 0.3 Glucose Level 102 Hematocrit 27.4 L Hemoglobin 8.5 L Lymphocytes # 1.5 Lymphocytes % 7.7 L Mean Corpuscular Hemoglobin 32.1 Mean Corpuscular Hemoglobin Concent 31.0 L Mean Corpuscular Volume 103.4 H Mean Platelet Volume 9.2 Monocytes # 1.3 H Monocytes % 6.6 Neutrophils # 14.5 H Neutrophils % 76.6 Nucleated Red Blood Cells # 0.0 Nucleated Red Blood Cells % 0.0 Platelet Count 530 H Potassium Level 4.9 Red Blood Count 2.65 L Red Cell Distribution Width 15.5 H Sodium Level 136 White Blood Count 18.9 H Test 11/10/16 11:46 Bedside Glucose 107 Medications Medications Current Medications IV Flush (NS 10 ml) 10 ml PRN PRN IV IV PROTOCOL; Start 09/28/16 at 14:00 Ondansetron HCl (Zofran Inj) 4 mg Q6H PRN IV NAUSEA AND/OR VOMITING; Start at 15:00 Nitroglycerin (Nitroglycerin (Sl Tab) 0.4 Mg) 1 tab Q5M PRN SL CHEST PAIN; Start 09/28/16 at 15:00 Acetaminophen (Tylenol Liquid) 650 mg Q6H PRN PO PAIN LEVEL 1-3 OR FEVER Last administered on 11/07/16 05:09; Admin Dose 650 MG; Start 09/28/16 at 15:00 Acetaminophen (Tylenol Tab) 650 mg Q6H PRN PO PAIN LEVEL 1-3 OR FEVER Last administered on 10/28/16 09:00; Admin Dose 650 MG; Start 09/28/16 at 15:00 Morphine Sulfate (morphine) 2 mg Q4H PRN IV PAIN LEVEL 7-10 Last administered on 09/29/16 02:30; Admin Dose 2 MG; Start 09/28/16 at 15:00 Lorazepam (Ativan) 1 mg Q2H PRN IV ANXIETY Last administered on 10/29/16 20:56 ; Admin Dose 1 MG; Start 09/28/16 at 15:00 Docusate Sodium (Colace) 100 mg Q12H PRN PO CONSTIPATION; Start 09/28/16 at 15: 00 Famotidine (Pepcid) 20 mg Q12 PO Last administered on 11/10/16 08:19; Admin Dose 20 MG; Start 09/28/16 at 21:00 Aspirin (Aspirin) 81 mg DAILY PO Last administered on 11/10/16 08:19; Admin Dose 81 MG; Start 09/29/16 at 09:00 Atorvastatin Calcium (Lipitor) 10 mg QHS PO Last administered on 11/09/16 21:48 ; Admin Dose 10 MG; Start 09/28/16 at 21:00 Tiotropium [place] (Spiriva) 1 inh DAILY INH ; Start 09/28/16 at 16:00; Status Future Hold Mupirocin (Bactroban) 1 applic BID TOP Last administered on 11/10/16 08:21; Admin Dose 1 APPLIC; Start 09/30/16 at 09:00 Diagnostic Test (Pha) (Accucheck) 1 ea 02 XX Last administered on 11/03/16 02: 00; Admin Dose 1 EA; Start 10/05/16 at 02:00 Miscellaneous Information 1 ea NOTE XX ; Start 10/04/16 at 09:00 Glucose (Glutose) 15 gm Q15M PRN PO DECREASED GLUCOSE; Start 10/04/16 at 09:00 Glucose (Glutose) 22.5 gm Q15M PRN PO DECREASED GLUCOSE; Start 10/04/16 at 09: 00 Dextrose (D50w Syringe) 25 ml Q15M PRN IV DECREASED GLUCOSE; Start 10/04/16 at 09:00 Dextrose (D50w Syringe) 50 ml Q15M PRN IV DECREASED GLUCOSE; Start 10/04/16 at 09:00 Glucagon (Glucagen) 1 mg Q15M PRN IM DECREASED GLUCOSE; Start 10/04/16 at 09:00 Glucose (Glutose) 15 gm Q15M PRN BUCCAL DECREASED GLUCOSE; Start 10/04/16 at 09 :00 Metoprolol Tartrate (Lopressor) 5 mg Q4 PRN IV HR>110 Hold SBP<100; Start 10/05 at 19:30 Insulin Glargine (Lantus) 15 unit HS SC Last administered on 11/09/16 21:47; Admin Dose 15 UNIT; Start 10/10/16 at 21:00 Montelukast Sodium (Singulair) 10 mg HS PO Last administered on 11/09/16 21:45 ; Admin Dose 10 MG; Start 10/10/16 at 21:00 Theophylline (Benji-24) 300 mg QHS PO Last administered on 11/09/16 21:45; Admin Dose 300 MG; Start 10/10/16 at 21:00 Apixaban (Eliquis) 5 mg BID PO Last administered on 11/10/16 08:20; Admin Dose 5 MG; Start 10/10/16 at 21:00 Digoxin (Digoxin) 0.125 mg DAILY@13 PO Last administered on 11/10/16 13:35; Admin Dose 0.125 MG; Start 10/12/16 at 13:00 Furosemide (Lasix) 40 mg AM PO Last administered on 11/10/16 08:19; Admin Dose 40 MG; Start 10/25/16 at 09:00 Amiodarone HCl (Cordarone) 200 mg BID PO Last administered on 11/10/16 08:19; Admin Dose 200 MG; Start 10/24/16 at 21:00 Metoprolol Succinate (Toprol Xl) 50 mg DAILY PO Last administered on 11/10/16 08:20; Admin Dose 50 MG; Start 10/28/16 at 09:00 Metoprolol Succinate 50 mg 50 mg HS PO Last administered on 11/09/16 21:46; Admin Dose 50 MG; Start 10/28/16 at 21:00 Colistimethate Sodium/Sodium Chloride (Coly-Mycin/NS) 100 ml @ 200 mls/hr Q12 IVPB Last administered on 11/10/16 08:18; Admin Dose 200 MLS/HR; Start at 21:00 Lisinopril (Zestril) 10 mg DAILY PO Last administered on 11/10/16 08:20; Admin Dose 10 MG; Start 11/06/16 at 09:00 Prednisone (Prednisone) 8 mg DAILY PO Last administered on 11/10/16 08:21; Admin Dose 8 MG; Start 11/07/16 at 09:00 Salmeterol Xinafoate/ Fluticasone (Advair 250/50 Diskus) 1 inh BID INH Last administered on 11/10/16 08:19; Admin Dose 1 INH; Start 11/07/16 at 09:00 FUNMI MEZA MD Nov 10, 2016 14:56
[2016-11-10] MEDS: predniSONE 2.5 MG TAB PO SCH (17:47)
--- NOTE | 2016-11-10 18:37 | CONS ---
Date/Time of Note Date/Time of Note DATE: 11/10/16 TIME: 18:35 Assessment/Plan Assessment/Plan Chief Complaint/Hosp Course IMPRESSION: 1. Atrial fibrillation with rapid ventricular response.-improved HR and now back in SR when last on tele 2. Congestive heart failure, systolic, acute on chronic. 3. History of cardiomyopathy with decreased left ventricular ejection fraction 20% to 25% per chart biopsy. 4. Shortness of breath. 5. Status post hypercapnic respiratory failure, status post extubation. 6. Chronic obstructive pulmonary disease. 7. Hypertension. 8. Dyslipidemia. 9. History of automatic implantable cardioverter-defibrillator with possible discharge.-s/p interrogation with ICD shock for uncontrolled rapid AF. 10. Pneumonia. 11.Positive troponin-minimal with no sig uptrend 12.UTI-Klebs 14.Bacteremia-Klebs/persistent-most recent Bld cx's negative Recc -Tele -Continue asa/Eliquis -ACEI/BB as tolerated -Continue digoxin -Continue statin -Follow volume status and continue lasix PO daily -Continue abx's and f/u cx data and -awaiting placement Problems: Consultation Date/Type/Reason Admit Date/Time Sep 28, 2016 at 14:41 Initial Consult Date 09/28/16 Type of Consultation: Cardiology Reason for Consultation cardiomyopathy/AF/ICD discharge Referring Provider: DEVON MUHAMMAD MD Exam/Review of Systems Vital Signs Vitals Vital Signs Date Time Temp Pulse Resp B/P Pulse Ox O2 Delivery O2 Flow Rate FiO2 11/10/16 14:08 63 18 93 Nasal Cannula 3.0 11/10/16 07:35 98.0 115/60 Intake and Output 11/09/16 11/09/16 11/10/16 15:00 23:00 07:00 Intake Total 100 ml 450 ml 360 ml Output Total 900 ml 1200 ml Balance 100 ml -450 ml -840 ml Exam Review of Systems: CONSTITUTIONAL: No fevers, chills. PULMONARY: No sob CARDIOVASCULAR: No chest pain/palpitations GASTROINTESTINAL: No nausea/vomiting. GENITOURINARY: No hematuria/dysuria. MUSCULOSKELETAL: No myagias/arthalgias. PSYCHIATRIC: The patient denies depression. NEUROLOGIC: No weakness Constitutional: alert Psych: no complaints Head: normocephalic ENMT: mucosa pink and moist Neck: jvd (8-9 cm water), supple Respiratory: clear to auscultation, diminished breath sounds Cardiovascular: regular rate and rhythm Gastrointestinal: non-tender, soft Musculoskeletal: muscle tone (normal) Extremities: edema (none) Neurological: other (No focal deficits) Results Result Diagram: 11/10/16 0433 11/10/16 0433 Results 24 hrs Laboratory Tests Test 11/09/16 19:55 11/10/16 04:33 11/10/16 07:27 11/10/16 11:46 Bedside Glucose 114 130 107 Anion Gap 14 Basophils # 0.1 Basophils % 0.5 Blood Urea Nitrogen 42 H Calcium Level 9.5 Carbon Dioxide Level 34 H Chloride Level 93 L Creatinine 1.24 Eosinophils # 0.1 Eosinophils % 0.3 Glucose Level 102 Hematocrit 27.4 L Hemoglobin 8.5 L Lymphocytes # 1.5 Lymphocytes % 7.7 L Mean Corpuscular Hemoglobin 32.1 Mean Corpuscular Hemoglobin Concent 31.0 L Mean Corpuscular Volume 103.4 H Mean Platelet Volume 9.2 Monocytes # 1.3 H Monocytes % 6.6 Neutrophils # 14.5 H Neutrophils % 76.6 Nucleated Red Blood Cells # 0.0 Nucleated Red Blood Cells % 0.0 Platelet Count 530 H Potassium Level 4.9 Red Blood Count 2.65 L Red Cell Distribution Width 15.5 H Sodium Level 136 White Blood Count 18.9 H Test 11/10/16 16:57 Bedside Glucose 147 Medications Medications Current Medications IV Flush (NS 10 ml) 10 ml PRN PRN IV IV PROTOCOL; Start 09/28/16 at 14:00 Ondansetron HCl (Zofran Inj) 4 mg Q6H PRN IV NAUSEA AND/OR VOMITING; Start at 15:00 Nitroglycerin (Nitroglycerin (Sl Tab) 0.4 Mg) 1 tab Q5M PRN SL CHEST PAIN; Start 09/28/16 at 15:00 Acetaminophen (Tylenol Liquid) 650 mg Q6H PRN PO PAIN LEVEL 1-3 OR FEVER Last administered on 11/07/16 05:09; Admin Dose 650 MG; Start 09/28/16 at 15:00 Acetaminophen (Tylenol Tab) 650 mg Q6H PRN PO PAIN LEVEL 1-3 OR FEVER Last administered on 10/28/16 09:00; Admin Dose 650 MG; Start 09/28/16 at 15:00 Morphine Sulfate (morphine) 2 mg Q4H PRN IV PAIN LEVEL 7-10 Last administered on 09/29/16 02:30; Admin Dose 2 MG; Start 09/28/16 at 15:00 Lorazepam (Ativan) 1 mg Q2H PRN IV ANXIETY Last administered on 10/29/16 20:56 ; Admin Dose 1 MG; Start 09/28/16 at 15:00 Docusate Sodium (Colace) 100 mg Q12H PRN PO CONSTIPATION; Start 09/28/16 at 15: 00 Famotidine (Pepcid) 20 mg Q12 PO Last administered on 11/10/16 08:19; Admin Dose 20 MG; Start 09/28/16 at 21:00 Aspirin (Aspirin) 81 mg DAILY PO Last administered on 11/10/16 08:19; Admin Dose 81 MG; Start 09/29/16 at 09:00 Atorvastatin Calcium (Lipitor) 10 mg QHS PO Last administered on 11/09/16 21:48 ; Admin Dose 10 MG; Start 09/28/16 at 21:00 Tiotropium [place] (Spiriva) 1 inh DAILY INH ; Start 09/28/16 at 16:00; Status Future Hold Mupirocin (Bactroban) 1 applic BID TOP Last administered on 11/10/16 08:21; Admin Dose 1 APPLIC; Start 09/30/16 at 09:00 Diagnostic Test (Pha) (Accucheck) 1 ea 02 XX Last administered on 11/03/16 02: 00; Admin Dose 1 EA; Start 10/05/16 at 02:00 Miscellaneous Information 1 ea NOTE XX ; Start 10/04/16 at 09:00 Glucose (Glutose) 15 gm Q15M PRN PO DECREASED GLUCOSE; Start 10/04/16 at 09:00 Glucose (Glutose) 22.5 gm Q15M PRN PO DECREASED GLUCOSE; Start 10/04/16 at 09: 00 Dextrose (D50w Syringe) 25 ml Q15M PRN IV DECREASED GLUCOSE; Start 10/04/16 at 09:00 Dextrose (D50w Syringe) 50 ml Q15M PRN IV DECREASED GLUCOSE; Start 10/04/16 at 09:00 Glucagon (Glucagen) 1 mg Q15M PRN IM DECREASED GLUCOSE; Start 10/04/16 at 09:00 Glucose (Glutose) 15 gm Q15M PRN BUCCAL DECREASED GLUCOSE; Start 10/04/16 at 09 :00 Metoprolol Tartrate (Lopressor) 5 mg Q4 PRN IV HR>110 Hold SBP<100; Start 10/05 at 19:30 Insulin Glargine (Lantus) 15 unit HS SC Last administered on 11/09/16 21:47; Admin Dose 15 UNIT; Start 10/10/16 at 21:00 Montelukast Sodium (Singulair) 10 mg HS PO Last administered on 11/09/16 21:45 ; Admin Dose 10 MG; Start 10/10/16 at 21:00 Theophylline (Benji-24) 300 mg QHS PO Last administered on 11/09/16 21:45; Admin Dose 300 MG; Start 10/10/16 at 21:00 Apixaban (Eliquis) 5 mg BID PO Last administered on 11/10/16 08:20; Admin Dose 5 MG; Start 10/10/16 at 21:00 Digoxin (Digoxin) 0.125 mg DAILY@13 PO Last administered on 11/10/16 13:35; Admin Dose 0.125 MG; Start 10/12/16 at 13:00 Furosemide (Lasix) 40 mg AM PO Last administered on 11/10/16 08:19; Admin Dose 40 MG; Start 10/25/16 at 09:00 Amiodarone HCl (Cordarone) 200 mg BID PO Last administered on 11/10/16 08:19; Admin Dose 200 MG; Start 10/24/16 at 21:00 Metoprolol Succinate (Toprol Xl) 50 mg DAILY PO Last administered on 11/10/16 08:20; Admin Dose 50 MG; Start 10/28/16 at 09:00 Metoprolol Succinate 50 mg 50 mg HS PO Last administered on 11/09/16 21:46; Admin Dose 50 MG; Start 10/28/16 at 21:00 Colistimethate Sodium/Sodium Chloride (Coly-Mycin/NS) 100 ml @ 200 mls/hr Q12 IVPB Last administered on 11/10/16 08:18; Admin Dose 200 MLS/HR; Start at 21:00 Lisinopril (Zestril) 10 mg DAILY PO Last administered on 11/10/16 08:20; Admin Dose 10 MG; Start 11/06/16 at 09:00 Prednisone (Prednisone) 8 mg DAILY PO Last administered on 11/10/16 08:21; Admin Dose 8 MG; Start 11/07/16 at 09:00 Salmeterol Xinafoate/ Fluticasone (Advair 250/50 Diskus) 1 inh BID INH Last administered on 11/10/16 08:19; Admin Dose 1 INH; Start 11/07/16 at 09:00 СВЕТЛАНА PADRON Nov 10, 2016 18:37
[2016-11-10 20:19] VITALS: BP 113/70; RESP 20
[2016-11-10] MEDS: THEOPHYLLINE (SR) 300 MG CAP PO SCH (21:40)
[2016-11-10] MEDS: ATORVASTATIN 10 MG TAB PO SCH (21:40)
[2016-11-10] MEDS: MONTELUKAST 10 MG TAB PO SCH (21:41)
[2016-11-10] MEDS: INSULIN GLARGINE [LANtus] 3 ML PEN SC SCH (21:42)
[2016-11-11] MEDS: ACCU-CHEK XX SCH (02:00)
[2016-11-11] MEDS: ALBUTEROL/IPRATROPIUM (NEB) 3 ML AMP HHN SCH ×4 (02:00→19:50)
[2016-11-11 07:35] VITALS: BP 111/59; RESP 18
[2016-11-11] MEDS: COLISTIMETHATE 75 MG in SOD CHLORIDE 0.9% 100 ML IVPB SCH ×2 (08:14→21:09)
[2016-11-11] MEDS: ASPIRIN 81 MG TAB PO SCH (08:15)
[2016-11-11] MEDS: LISINOPRIL 10 MG TAB PO SCH (08:15)
[2016-11-11] MEDS: predniSONE 1 MG TAB PO SCH (08:15)
[2016-11-11] MEDS: AMIODARONE 200 MG TAB PO SCH ×2 (08:15→21:11)
[2016-11-11] MEDS: FAMOTIDINE 20 MG TAB PO SCH ×2 (08:15→21:11)
[2016-11-11] MEDS: FUROSEMIDE 40 MG TAB PO SCH (08:15)
[2016-11-11] MEDS: APIXABAN 5 MG TABLET PO SCH ×2 (08:15→21:11)
[2016-11-11] MEDS: SALMETEROL/FLUTICASONE 250/50 INHA INH SCH ×2 (08:16→21:09)
[2016-11-11] MEDS: METOPROLOL (XL) 25 MG TAB PO SCH ×2 (08:16→21:10)
[2016-11-11] MEDS: INSULIN ASPART [NOVOLOG] 3 ML PEN SC SCH ×7 (08:17→21:00)
[2016-11-11] MEDS: MUPIROCIN 2% 22 GM OINT TOP SCH ×2 (08:18→22:04)
[2016-11-11] MEDS: DIGOXIN 0.125 MG TAB PO SCH (13:00)
--- NOTE | 2016-11-11 13:33 | CONS ---
Date/Time of Note Date/Time of Note DATE: 11/11/16 TIME: 13:31 Assessment/Plan Assessment/Plan Chief Complaint/Hosp Course SUBJECTIVE: No events overnight. The patient is alert, no fevers, nad. ANTIMICROBIALS: IV Colistin. PHYSICAL EXAMINATION: GENERAL: Well-developed, fragile, elderly man in no distress. HEENT: Head atraumatic, normocephalic. Sclerae anicteric. Buccal mucosa dry. NECK: Supple. CHEST: Rise symmetrical. Breath sounds clear, diminished to bases. HEART: S1, S2. ABDOMEN: Soft, bowel sounds present. EXTREMITIES: No cyanosis. ASSESSMENT: 1. Sepsis, resolving. 2. Multidrug resistant Klebsiella pneumoniae bacteremia 2 to #3. 3. Urinary tract infection. 4. Urinary retention 5. Bilateral hydronephrosis. 6. Chronic obstructive pulmonary disease, status post pneumonia. 7. Coronary artery disease, history of automatic implantable cardioverter defibrillator, status post interrogation. PLAN: The patient remains stable, he still has large amount of residuals and requires straight cath around the clock. Repeat bld cx negative, continue abx, monitor renal f-n, f/u urology rec-s Dw staff Problems: Consultation Date/Type/Reason Admit Date/Time Sep 28, 2016 at 14:41 Initial Consult Date 09/28/16 Type of Consultation: id Referring Provider: DEVON MUHAMMAD MD Exam/Review of Systems Vital Signs Vitals Vital Signs Date Time Temp Pulse Resp B/P Pulse Ox O2 Delivery O2 Flow Rate FiO2 11/11/16 11:18 Nasal Cannula 4.0 11/11/16 09:08 68 22 92 11/11/16 07:35 98.3 111/59 Intake and Output 11/10/16 11/10/16 11/11/16 14:59 22:59 06:59 Intake Total 100 ml 1800 ml 400 ml Output Total 850 ml 2450 ml Balance 100 ml 950 ml -2050 ml Results Result Diagram: 11/10/16 0433 11/10/16 0433 Results 24 hrs Laboratory Tests Test 11/10/16 16:57 11/10/16 21:36 11/10/16 21:38 11/11/16 07:16 Bedside Glucose 147 268 H 137 182 Test 11/11/16 11:51 Bedside Glucose 108 Medications Medications Current Medications IV Flush (NS 10 ml) 10 ml PRN PRN IV IV PROTOCOL Last administered on 11/11/16 08:14; Admin Dose 10 ML; Start 09/28/16 at 14:00 Ondansetron HCl (Zofran Inj) 4 mg Q6H PRN IV NAUSEA AND/OR VOMITING; Start at 15:00 Nitroglycerin (Nitroglycerin (Sl Tab) 0.4 Mg) 1 tab Q5M PRN SL CHEST PAIN; Start 09/28/16 at 15:00 Acetaminophen (Tylenol Liquid) 650 mg Q6H PRN PO PAIN LEVEL 1-3 OR FEVER Last administered on 11/07/16 05:09; Admin Dose 650 MG; Start 09/28/16 at 15:00 Acetaminophen (Tylenol Tab) 650 mg Q6H PRN PO PAIN LEVEL 1-3 OR FEVER Last administered on 10/28/16 09:00; Admin Dose 650 MG; Start 09/28/16 at 15:00 Morphine Sulfate (morphine) 2 mg Q4H PRN IV PAIN LEVEL 7-10 Last administered on 09/29/16 02:30; Admin Dose 2 MG; Start 09/28/16 at 15:00 Lorazepam (Ativan) 1 mg Q2H PRN IV ANXIETY Last administered on 10/29/16 20:56 ; Admin Dose 1 MG; Start 09/28/16 at 15:00 Docusate Sodium (Colace) 100 mg Q12H PRN PO CONSTIPATION Last administered on 08:14; Admin Dose 100 MG; Start 09/28/16 at 15:00 Famotidine (Pepcid) 20 mg Q12 PO Last administered on 11/11/16 08:15; Admin Dose 20 MG; Start 09/28/16 at 21:00 Aspirin (Aspirin) 81 mg DAILY PO Last administered on 11/11/16 08:15; Admin Dose 81 MG; Start 09/29/16 at 09:00 Atorvastatin Calcium (Lipitor) 10 mg QHS PO Last administered on 11/10/16 21:40 ; Admin Dose 10 MG; Start 09/28/16 at 21:00 Tiotropium [place] (Spiriva) 1 inh DAILY INH ; Start 09/28/16 at 16:00; Status Future Hold Mupirocin (Bactroban) 1 applic BID TOP Last administered on 11/11/16 08:18; Admin Dose 1 APPLIC; Start 09/30/16 at 09:00 Diagnostic Test (Pha) (Accucheck) 1 ea 02 XX Last administered on 11/03/16 02: 00; Admin Dose 1 EA; Start 10/05/16 at 02:00 Miscellaneous Information 1 ea NOTE XX ; Start 10/04/16 at 09:00 Glucose (Glutose) 15 gm Q15M PRN PO DECREASED GLUCOSE; Start 10/04/16 at 09:00 Glucose (Glutose) 22.5 gm Q15M PRN PO DECREASED GLUCOSE; Start 10/04/16 at 09: 00 Dextrose (D50w Syringe) 25 ml Q15M PRN IV DECREASED GLUCOSE; Start 10/04/16 at 09:00 Dextrose (D50w Syringe) 50 ml Q15M PRN IV DECREASED GLUCOSE; Start 10/04/16 at 09:00 Glucagon (Glucagen) 1 mg Q15M PRN IM DECREASED GLUCOSE; Start 10/04/16 at 09:00 Glucose (Glutose) 15 gm Q15M PRN BUCCAL DECREASED GLUCOSE; Start 10/04/16 at 09 :00 Metoprolol Tartrate (Lopressor) 5 mg Q4 PRN IV HR>110 Hold SBP<100; Start 10/05 at 19:30 Insulin Glargine (Lantus) 15 unit HS SC Last administered on 11/10/16 21:42; Admin Dose 15 UNIT; Start 10/10/16 at 21:00 Montelukast Sodium (Singulair) 10 mg HS PO Last administered on 11/10/16 21:41 ; Admin Dose 10 MG; Start 10/10/16 at 21:00 Theophylline (Benji-24) 300 mg QHS PO Last administered on 11/10/16 21:40; Admin Dose 300 MG; Start 10/10/16 at 21:00 Apixaban (Eliquis) 5 mg BID PO Last administered on 11/11/16 08:15; Admin Dose 5 MG; Start 10/10/16 at 21:00 Digoxin (Digoxin) 0.125 mg DAILY@13 PO Last administered on 11/10/16 13:35; Admin Dose 0.125 MG; Start 10/12/16 at 13:00 Furosemide (Lasix) 40 mg AM PO Last administered on 11/11/16 08:15; Admin Dose 40 MG; Start 10/25/16 at 09:00 Amiodarone HCl (Cordarone) 200 mg BID PO Last administered on 11/11/16 08:15; Admin Dose 200 MG; Start 10/24/16 at 21:00 Metoprolol Succinate (Toprol Xl) 50 mg DAILY PO Last administered on 11/11/16 08:16; Admin Dose 50 MG; Start 10/28/16 at 09:00 Metoprolol Succinate 50 mg 50 mg HS PO Last administered on 11/10/16 21:41; Admin Dose 50 MG; Start 10/28/16 at 21:00 Colistimethate Sodium/Sodium Chloride (Coly-Mycin/NS) 100 ml @ 200 mls/hr Q12 IVPB Last administered on 11/11/16 08:14; Admin Dose 200 MLS/HR; Start at 21:00 Lisinopril (Zestril) 10 mg DAILY PO Last administered on 11/11/16 08:15; Admin Dose 10 MG; Start 11/06/16 at 09:00 Prednisone (Prednisone) 8 mg DAILY PO Last administered on 11/11/16 08:15; Admin Dose 8 MG; Start 11/07/16 at 09:00 Salmeterol Xinafoate/ Fluticasone (Advair 250/50 Diskus) 1 inh BID INH Last administered on 11/11/16 08:16; Admin Dose 1 INH; Start 11/07/16 at 09:00 CODY BRANCH NP Nov 11, 2016 13:33
--- NOTE | 2016-11-11 13:47 | CONS ---
Date/Time of Note Date/Time of Note DATE: 11/11/16 TIME: 13:45 Assessment/Plan Assessment/Plan Chief Complaint/Hosp Course IMPRESSION: 1. Atrial fibrillation with rapid ventricular response.-improved HR and now back in SR when last on tele 2. Congestive heart failure, systolic, acute on chronic. 3. History of cardiomyopathy with decreased left ventricular ejection fraction 20% to 25% per chart biopsy. 4. Shortness of breath. 5. Status post hypercapnic respiratory failure, status post extubation. 6. Chronic obstructive pulmonary disease. 7. Hypertension. 8. Dyslipidemia. 9. History of automatic implantable cardioverter-defibrillator with possible discharge.-s/p interrogation with ICD shock for uncontrolled rapid AF. 10. Pneumonia. 11.Positive troponin-minimal with no sig uptrend 12.UTI-Klebs 14.Bacteremia-Klebs/persistent-most recent Bld cx's negative Recc -Tele -Continue asa/Eliquis -ACEI/BB as tolerated -Continue digoxin and will check digoxin level given some episodes of mild bradycardia -Continue statin -Follow volume status and continue lasix PO daily -Continue abx's and f/u cx data and -awaiting placement Problems: Consultation Date/Type/Reason Admit Date/Time Sep 28, 2016 at 14:41 Initial Consult Date 09/28/16 Type of Consultation: Cardiology Reason for Consultation AF/CHF/ICD discharge Referring Provider: DEVON MUHAMMAD MD Exam/Review of Systems Vital Signs Vitals Vital Signs Date Time Temp Pulse Resp B/P Pulse Ox O2 Delivery O2 Flow Rate FiO2 11/11/16 11:18 Nasal Cannula 4.0 11/11/16 09:08 68 22 92 11/11/16 07:35 98.3 111/59 Intake and Output 11/10/16 11/10/16 11/11/16 15:00 23:00 07:00 Intake Total 100 ml 1800 ml 400 ml Output Total 850 ml 2450 ml Balance 100 ml 950 ml -2050 ml Exam Review of Systems: CONSTITUTIONAL: No fevers, chills. PULMONARY: No sob CARDIOVASCULAR: No chest pain/palpitations GASTROINTESTINAL: No nausea/vomiting. GENITOURINARY: No hematuria/dysuria. MUSCULOSKELETAL: No myagias/arthalgias. PSYCHIATRIC: The patient denies depression. NEUROLOGIC: No weakness Constitutional: alert, oriented Psych: no complaints Head: normocephalic ENMT: mucosa pink and moist Neck: jvd (9 cm water), supple Respiratory: diminished breath sounds (at bases/B) Cardiovascular: regular rate and rhythm Gastrointestinal: non-tender, soft Musculoskeletal: muscle tone (normal) Extremities: pitting pedal edema (None) Neurological: lethargic Results Result Diagram: 11/10/16 0433 11/10/16 0433 Results 24 hrs Laboratory Tests Test 11/10/16 16:57 11/10/16 21:36 11/10/16 21:38 11/11/16 07:16 Bedside Glucose 147 268 H 137 182 Test 11/11/16 11:51 Bedside Glucose 108 Medications Medications Current Medications IV Flush (NS 10 ml) 10 ml PRN PRN IV IV PROTOCOL Last administered on 11/11/16 08:14; Admin Dose 10 ML; Start 09/28/16 at 14:00 Ondansetron HCl (Zofran Inj) 4 mg Q6H PRN IV NAUSEA AND/OR VOMITING; Start at 15:00 Nitroglycerin (Nitroglycerin (Sl Tab) 0.4 Mg) 1 tab Q5M PRN SL CHEST PAIN; Start 09/28/16 at 15:00 Acetaminophen (Tylenol Liquid) 650 mg Q6H PRN PO PAIN LEVEL 1-3 OR FEVER Last administered on 11/07/16 05:09; Admin Dose 650 MG; Start 09/28/16 at 15:00 Acetaminophen (Tylenol Tab) 650 mg Q6H PRN PO PAIN LEVEL 1-3 OR FEVER Last administered on 10/28/16 09:00; Admin Dose 650 MG; Start 09/28/16 at 15:00 Morphine Sulfate (morphine) 2 mg Q4H PRN IV PAIN LEVEL 7-10 Last administered on 09/29/16 02:30; Admin Dose 2 MG; Start 09/28/16 at 15:00 Lorazepam (Ativan) 1 mg Q2H PRN IV ANXIETY Last administered on 10/29/16 20:56 ; Admin Dose 1 MG; Start 09/28/16 at 15:00 Docusate Sodium (Colace) 100 mg Q12H PRN PO CONSTIPATION Last administered on 08:14; Admin Dose 100 MG; Start 09/28/16 at 15:00 Famotidine (Pepcid) 20 mg Q12 PO Last administered on 11/11/16 08:15; Admin Dose 20 MG; Start 09/28/16 at 21:00 Aspirin (Aspirin) 81 mg DAILY PO Last administered on 11/11/16 08:15; Admin Dose 81 MG; Start 09/29/16 at 09:00 Atorvastatin Calcium (Lipitor) 10 mg QHS PO Last administered on 11/10/16 21:40 ; Admin Dose 10 MG; Start 09/28/16 at 21:00 Tiotropium [place] (Spiriva) 1 inh DAILY INH ; Start 09/28/16 at 16:00; Status Future Hold Mupirocin (Bactroban) 1 applic BID TOP Last administered on 11/11/16 08:18; Admin Dose 1 APPLIC; Start 09/30/16 at 09:00 Diagnostic Test (Pha) (Accucheck) 1 ea 02 XX Last administered on 11/03/16 02: 00; Admin Dose 1 EA; Start 10/05/16 at 02:00 Miscellaneous Information 1 ea NOTE XX ; Start 10/04/16 at 09:00 Glucose (Glutose) 15 gm Q15M PRN PO DECREASED GLUCOSE; Start 10/04/16 at 09:00 Glucose (Glutose) 22.5 gm Q15M PRN PO DECREASED GLUCOSE; Start 10/04/16 at 09: 00 Dextrose (D50w Syringe) 25 ml Q15M PRN IV DECREASED GLUCOSE; Start 10/04/16 at 09:00 Dextrose (D50w Syringe) 50 ml Q15M PRN IV DECREASED GLUCOSE; Start 10/04/16 at 09:00 Glucagon (Glucagen) 1 mg Q15M PRN IM DECREASED GLUCOSE; Start 10/04/16 at 09:00 Glucose (Glutose) 15 gm Q15M PRN BUCCAL DECREASED GLUCOSE; Start 10/04/16 at 09 :00 Metoprolol Tartrate (Lopressor) 5 mg Q4 PRN IV HR>110 Hold SBP<100; Start 10/05 at 19:30 Insulin Glargine (Lantus) 15 unit HS SC Last administered on 11/10/16 21:42; Admin Dose 15 UNIT; Start 10/10/16 at 21:00 Montelukast Sodium (Singulair) 10 mg HS PO Last administered on 11/10/16 21:41 ; Admin Dose 10 MG; Start 10/10/16 at 21:00 Theophylline (Benji-24) 300 mg QHS PO Last administered on 11/10/16 21:40; Admin Dose 300 MG; Start 10/10/16 at 21:00 Apixaban (Eliquis) 5 mg BID PO Last administered on 11/11/16 08:15; Admin Dose 5 MG; Start 10/10/16 at 21:00 Digoxin (Digoxin) 0.125 mg DAILY@13 PO Last administered on 11/10/16 13:35; Admin Dose 0.125 MG; Start 10/12/16 at 13:00 Furosemide (Lasix) 40 mg AM PO Last administered on 11/11/16 08:15; Admin Dose 40 MG; Start 10/25/16 at 09:00 Amiodarone HCl (Cordarone) 200 mg BID PO Last administered on 11/11/16 08:15; Admin Dose 200 MG; Start 10/24/16 at 21:00 Metoprolol Succinate (Toprol Xl) 50 mg DAILY PO Last administered on 11/11/16 08:16; Admin Dose 50 MG; Start 10/28/16 at 09:00 Metoprolol Succinate 50 mg 50 mg HS PO Last administered on 11/10/16 21:41; Admin Dose 50 MG; Start 10/28/16 at 21:00 Colistimethate Sodium/Sodium Chloride (Coly-Mycin/NS) 100 ml @ 200 mls/hr Q12 IVPB Last administered on 11/11/16 08:14; Admin Dose 200 MLS/HR; Start at 21:00 Lisinopril (Zestril) 10 mg DAILY PO Last administered on 11/11/16 08:15; Admin Dose 10 MG; Start 11/06/16 at 09:00 Prednisone (Prednisone) 8 mg DAILY PO Last administered on 11/11/16 08:15; Admin Dose 8 MG; Start 11/07/16 at 09:00 Salmeterol Xinafoate/ Fluticasone (Advair 250/50 Diskus) 1 inh BID INH Last administered on 11/11/16 08:16; Admin Dose 1 INH; Start 11/07/16 at 09:00 СВЕТЛАНА PADRON Nov 11, 2016 13:47
--- NOTE | 2016-11-11 15:05 | PN ---
Date/Time of Note Date/Time of Note DATE: 11/11/16 TIME: 15:02 Assessment/Plan VTE Prophylaxis VTE Prophylaxis Intervention: other (eiquis) Lines/Catheters IV Catheter Type (from Nrs): Saline Lock Urinary Cath still in place: No Assessment/Plan Assessment/Plan . 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 on colistimethate 2. 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 Simpson 3. COPD exacerbation, stable, neb, decrease steroid 4. facility acquired pneumonia, with ESBL E. Coli, and Lauren albicans, treated 5. Atrial fibrillation with RVR, sinus now, follow up with cardiology 6. Congestive heart failure, systolic, chronic, stable 7. Ischemic cardiomyopathy 8. CAD 9. s/p ICD, stable 10. Essential hypertension, stable 11. Dyslipidemia. Continue statin. 12. Hx of Foot Fx- stable 13. DVT prophylaxis: eliquis 14. Awaiting for placement Subjective 24 Hr Interval Summary Free Text/Dictation afebrile. no compliant, nurse report high bladder residual, will talk to Dr. Londono. Exam/Review of Systems Vital Signs Vitals Vital Signs Date Time Temp Pulse Resp B/P Pulse Ox O2 Delivery O2 Flow Rate FiO2 11/11/16 11:18 Nasal Cannula 4.0 11/11/16 09:08 68 22 92 11/11/16 07:35 98.3 111/59 Intake and Output 11/10/16 11/10/16 11/11/16 15:00 23:00 07:00 Intake Total 100 ml 1800 ml 400 ml Output Total 850 ml 2450 ml Balance 100 ml 950 ml -2050 ml Exam Constitutional: alert, oriented, well developed Psych: nl mood/affect, no complaints Head: atraumatic, normocephalic Eyes: EOMI, nl conjunctiva, nl lids ENMT: nl external ears & nose, nl lips & teeth, nl nasal mucosa & septum Neck: non-tender, supple Respiratory: clear to auscultation, normal air movement, No congested cough, No crackles/rales, No diminished breath sounds, No intercostal retraction, No labored breathing, No other, No respirations, No tactile fremitus, No wheezing Cardiovascular: nl pulses, regular rate and rhythm, No S3, No S4, No bruits, No diastolic murmur, No edema, No gallop, No irregular rhythm, No jugular venous distention (JVD), No murmurs/extra sounds, No other, No rub, No systolic murmur Gastrointestinal: nl liver, spleen, non-tender, soft, No ascites, No bowel sounds, No distended, No firm, No hepatomegaly, No mass , No other, No rebound or guarding, No splenomegaly, No surgical scars, No tender Musculoskeletal: nl extremities to inspection Extremities: normal pulses, No calf tenderness, No clubbing, No cyanosis, No edema, No other, No palpable cord, No pitting pedal edema, No tenderness Neurological: COM[employer]ING [employer]ACH[employer]ENTICE II-XII intact, nl mental status, nl speech, nl strength Skin: nl turgor Results Result Diagram: 11/10/1643211/10/16432 Results 24 hrs Laboratory Tests Test 11/10/16 16:57 11/10/16 21:36 11/10/16 21:38 11/11/16 07:16 Bedside Glucose 147 268 H 137 182 Test 11/11/16 11:51 Bedside Glucose 108 Medications Medications Current Medications IV Flush (NS 10 ml) 10 ml PRN PRN IV IV PROTOCOL Last administered on 11/11/16 08:14; Admin Dose 10 ML; Start 09/28/16 at 14:00 Ondansetron HCl (Zofran Inj) 4 mg Q6H PRN IV NAUSEA AND/OR VOMITING; Start at 15:00 Nitroglycerin (Nitroglycerin (Sl Tab) 0.4 Mg) 1 tab Q5M PRN SL CHEST PAIN; Start 09/28/16 at 15:00 Acetaminophen (Tylenol Liquid) 650 mg Q6H PRN PO PAIN LEVEL 1-3 OR FEVER Last administered on 11/07/16 05:09; Admin Dose 650 MG; Start 09/28/16 at 15:00 Acetaminophen (Tylenol Tab) 650 mg Q6H PRN PO PAIN LEVEL 1-3 OR FEVER Last administered on 10/28/16 09:00; Admin Dose 650 MG; Start 09/28/16 at 15:00 Morphine Sulfate (morphine) 2 mg Q4H PRN IV PAIN LEVEL 7-10 Last administered on 09/29/16 02:30; Admin Dose 2 MG; Start 09/28/16 at 15:00 Lorazepam (Ativan) 1 mg Q2H PRN IV ANXIETY Last administered on 10/29/16 20:56 ; Admin Dose 1 MG; Start 09/28/16 at 15:00 Docusate Sodium (Colace) 100 mg Q12H PRN PO CONSTIPATION Last administered on 08:14; Admin Dose 100 MG; Start 09/28/16 at 15:00 Famotidine (Pepcid) 20 mg Q12 PO Last administered on 11/11/16 08:15; Admin Dose 20 MG; Start 09/28/16 at 21:00 Aspirin (Aspirin) 81 mg DAILY PO Last administered on 11/11/16 08:15; Admin Dose 81 MG; Start 09/29/16 at 09:00 Atorvastatin Calcium (Lipitor) 10 mg QHS PO Last administered on 11/10/16 21:40 ; Admin Dose 10 MG; Start 09/28/16 at 21:00 Tiotropium [place] (Spiriva) 1 inh DAILY INH ; Start 09/28/16 at 16:00; Status Future Hold Mupirocin (Bactroban) 1 applic BID TOP Last administered on 11/11/16 08:18; Admin Dose 1 APPLIC; Start 09/30/16 at 09:00 Diagnostic Test (Pha) (Accucheck) 1 ea 02 XX Last administered on 11/03/16 02: 00; Admin Dose 1 EA; Start 10/05/16 at 02:00 Miscellaneous Information 1 ea NOTE XX ; Start 10/04/16 at 09:00 Glucose (Glutose) 15 gm Q15M PRN PO DECREASED GLUCOSE; Start 10/04/16 at 09:00 Glucose (Glutose) 22.5 gm Q15M PRN PO DECREASED GLUCOSE; Start 10/04/16 at 09: 00 Dextrose (D50w Syringe) 25 ml Q15M PRN IV DECREASED GLUCOSE; Start 10/04/16 at 09:00 Dextrose (D50w Syringe) 50 ml Q15M PRN IV DECREASED GLUCOSE; Start 10/04/16 at 09:00 Glucagon (Glucagen) 1 mg Q15M PRN IM DECREASED GLUCOSE; Start 10/04/16 at 09:00 Glucose (Glutose) 15 gm Q15M PRN BUCCAL DECREASED GLUCOSE; Start 10/04/16 at 09 :00 Metoprolol Tartrate (Lopressor) 5 mg Q4 PRN IV HR>110 Hold SBP<100; Start 10/05 at 19:30 Insulin Glargine (Lantus) 15 unit HS SC Last administered on 11/10/16 21:42; Admin Dose 15 UNIT; Start 10/10/16 at 21:00 Montelukast Sodium (Singulair) 10 mg HS PO Last administered on 11/10/16 21:41 ; Admin Dose 10 MG; Start 10/10/16 at 21:00 Theophylline (Benji-24) 300 mg QHS PO Last administered on 11/10/16 21:40; Admin Dose 300 MG; Start 10/10/16 at 21:00 Apixaban (Eliquis) 5 mg BID PO Last administered on 11/11/16 08:15; Admin Dose 5 MG; Start 10/10/16 at 21:00 Digoxin (Digoxin) 0.125 mg DAILY@13 PO Last administered on 11/10/16 13:35; Admin Dose 0.125 MG; Start 10/12/16 at 13:00 Furosemide (Lasix) 40 mg AM PO Last administered on 11/11/16 08:15; Admin Dose 40 MG; Start 10/25/16 at 09:00 Amiodarone HCl (Cordarone) 200 mg BID PO Last administered on 11/11/16 08:15; Admin Dose 200 MG; Start 10/24/16 at 21:00 Metoprolol Succinate (Toprol Xl) 50 mg DAILY PO Last administered on 11/11/16 08:16; Admin Dose 50 MG; Start 10/28/16 at 09:00 Metoprolol Succinate 50 mg 50 mg HS PO Last administered on 11/10/16 21:41; Admin Dose 50 MG; Start 10/28/16 at 21:00 Colistimethate Sodium/Sodium Chloride (Coly-Mycin/NS) 100 ml @ 200 mls/hr Q12 IVPB Last administered on 11/11/16 08:14; Admin Dose 200 MLS/HR; Start at 21:00 Lisinopril (Zestril) 10 mg DAILY PO Last administered on 11/11/16 08:15; Admin Dose 10 MG; Start 11/06/16 at 09:00 Prednisone (Prednisone) 8 mg DAILY PO Last administered on 11/11/16 08:15; Admin Dose 8 MG; Start 11/07/16 at 09:00 Salmeterol Xinafoate/ Fluticasone (Advair 250/50 Diskus) 1 inh BID INH Last administered on 11/11/16 08:16; Admin Dose 1 INH; Start 11/07/16 at 09:00 FUNMI MEZA MD Nov 11, 2016 15:05
[2016-11-11] MEDS: predniSONE 2.5 MG TAB PO SCH (17:17)
--- NOTE | 2016-11-11 17:31 | PN ---
DATE: 11/11/2016 SUBJECTIVE: Urinary retention. The patient has not been able to urinate and has been undergoing in -and-out catheterization, and each time the volume was about between 800 to 1000 mL. Therefore, I h ad told the nurse on the phone to insert a Pruett catheter earlier, and she just did it about 50 diamond moon ago, and the volume that she drained from the bladder is 1200 mL. The patient is now resting an d sleeping. OBJECTIVE: VITAL SIGNS: The temperature is 98.3. The pulse is 68, respiration is 22 and the blood pressure 11 1/59. ABDOMEN: Soft. GENITOURINARY: The Pruett catheter is draining clear urine. LABORATORY DATA: The last CBC shows a white count of 18.9, hemoglobin 8.5, hematocrit 27.4. The BU N is 42, creatinine 1.24. IMPRESSION: Urinary retention that is not responding to medications and the patient is not voiding well and requires an indwelling Pruett catheter. RECOMMENDATION: Keep the Pruett catheter in, and then the patient will need the catheter replaced on a regular basis or learn how to do intermittent catheterization. I doubt that he will be able to d o that, but it may always be worth a try. Dictated By: JOSÉ DOS SANTOS/NANDO Conf#: [id number] DID#: [id number]
[2016-11-11 19:50] VITALS: BP 121/78; RESP 18
[2016-11-11] MEDS: ATORVASTATIN 10 MG TAB PO SCH (21:11)
[2016-11-11] MEDS: THEOPHYLLINE (SR) 300 MG CAP PO SCH (21:11)
[2016-11-11] MEDS: MONTELUKAST 10 MG TAB PO SCH (21:11)
[2016-11-11] MEDS: INSULIN GLARGINE [LANtus] 3 ML PEN SC SCH (21:14)
[2016-11-12] MEDS: ALBUTEROL/IPRATROPIUM (NEB) 3 ML AMP HHN SCH ×4 (01:46→19:53)
[2016-11-12] MEDS: ACCU-CHEK XX SCH (02:00)
[2016-11-12 06:07] LABS: CREATININE 1.22 mg/dl (0.61-1.24)
[2016-11-12 07:41] VITALS: BP 100/59; RESP 18
[2016-11-12] MEDS: INSULIN ASPART [NOVOLOG] 3 ML PEN SC SCH ×7 (08:00→20:39)
[2016-11-12] MEDS: MUPIROCIN 2% 22 GM OINT TOP SCH ×2 (09:00→21:00)
[2016-11-12] MEDS: LISINOPRIL 10 MG TAB PO SCH (09:00)
[2016-11-12] MEDS: APIXABAN 5 MG TABLET PO SCH ×2 (09:00→20:13)
[2016-11-12] MEDS: FUROSEMIDE 40 MG TAB PO SCH (09:00)
[2016-11-12] MEDS: ASPIRIN 81 MG TAB PO SCH (09:00)
[2016-11-12] MEDS: METOPROLOL (XL) 25 MG TAB PO SCH ×2 (09:00→20:16)
[2016-11-12] MEDS: SALMETEROL/FLUTICASONE 250/50 INHA INH SCH ×2 (09:28→20:13)
[2016-11-12] MEDS: FAMOTIDINE 20 MG TAB PO SCH ×2 (09:30→20:13)
[2016-11-12] MEDS: AMIODARONE 200 MG TAB PO SCH ×2 (09:30→20:16)
[2016-11-12] MEDS: predniSONE 1 MG TAB PO SCH (09:46)
[2016-11-12] MEDS: COLISTIMETHATE 75 MG in SOD CHLORIDE 0.9% 100 ML IVPB SCH ×2 (09:46→20:12)
[2016-11-12] MEDS: DIGOXIN 0.125 MG TAB PO SCH (12:05)
--- NOTE | 2016-11-12 13:22 | CONS ---
Date/Time of Note Date/Time of Note DATE: 11/12/16 TIME: 13:21 Assessment/Plan Assessment/Plan Chief Complaint/Hosp Course SUBJECTIVE: No events overnight, no fevers ANTIMICROBIALS: IV Colistin. PHYSICAL EXAMINATION: GENERAL: Well-developed, fragile, elderly man in no distress. HEENT: Head atraumatic, normocephalic. Sclerae anicteric. Buccal mucosa dry. NECK: Supple. CHEST: Rise symmetrical. Breath sounds clear, diminished to bases. HEART: S1, S2. ABDOMEN: Soft, bowel sounds present. EXTREMITIES: No cyanosis. ASSESSMENT: 1. Sepsis, resolving. 2. Multidrug resistant Klebsiella pneumoniae bacteremia 2 to #3. 3. Urinary tract infection==> s/p Pruett. 4. Urinary retention 5. Bilateral hydronephrosis. 6. Chronic obstructive pulmonary disease, status post pneumonia. 7. Coronary artery disease, history of automatic implantable cardioverter defibrillator, status post interrogation. PLAN: The patient remains unchanged, s/p Pruett. Repeat bld cx negative, continue abx, monitor renal f-n, f/u urology rec-s Dw staff Problems: Consultation Date/Type/Reason Admit Date/Time Sep 28, 2016 at 14:41 Initial Consult Date 09/28/16 Type of Consultation: ID Referring Provider: DEVON MUHAMMAD MD Exam/Review of Systems Vital Signs Vitals Vital Signs Date Time Temp Pulse Resp B/P Pulse Ox O2 Delivery O2 Flow Rate FiO2 11/12/16 11:57 3.0 11/12/16 08:00 Nasal Cannula 11/12/16 08:00 66 20 93 11/12/16 07:41 98.4 100/59 Intake and Output 11/11/16 11/11/16 11/12/16 15:00 23:00 07:00 Intake Total 100 ml 1900 ml 1350 ml Output Total 1600 ml 3500 ml Balance 100 ml 300 ml -2150 ml Results Result Diagram: 11/10/16 0433 11/12/16 0507 Results 24 hrs Laboratory Tests Test 11/11/16 15:40 11/11/16 16:58 11/11/16 21:07 11/12/16 05:07 Digoxin Level 1.6 Bedside Glucose 181 175 Blood Urea Nitrogen 38 H Creatinine 1.22 Test 11/12/16 07:53 11/12/16 11:49 Bedside Glucose 131 135 Medications Medications Current Medications IV Flush (NS 10 ml) 10 ml PRN PRN IV IV PROTOCOL Last administered on 11/11/16 08:14; Admin Dose 10 ML; Start 09/28/16 at 14:00 Ondansetron HCl (Zofran Inj) 4 mg Q6H PRN IV NAUSEA AND/OR VOMITING; Start at 15:00 Nitroglycerin (Nitroglycerin (Sl Tab) 0.4 Mg) 1 tab Q5M PRN SL CHEST PAIN; Start 09/28/16 at 15:00 Acetaminophen (Tylenol Liquid) 650 mg Q6H PRN PO PAIN LEVEL 1-3 OR FEVER Last administered on 11/07/16 05:09; Admin Dose 650 MG; Start 09/28/16 at 15:00 Acetaminophen (Tylenol Tab) 650 mg Q6H PRN PO PAIN LEVEL 1-3 OR FEVER Last administered on 10/28/16 09:00; Admin Dose 650 MG; Start 09/28/16 at 15:00 Morphine Sulfate (morphine) 2 mg Q4H PRN IV PAIN LEVEL 7-10 Last administered on 09/29/16 02:30; Admin Dose 2 MG; Start 09/28/16 at 15:00 Lorazepam (Ativan) 1 mg Q2H PRN IV ANXIETY Last administered on 10/29/16 20:56 ; Admin Dose 1 MG; Start 09/28/16 at 15:00 Docusate Sodium (Colace) 100 mg Q12H PRN PO CONSTIPATION Last administered on 08:14; Admin Dose 100 MG; Start 09/28/16 at 15:00 Famotidine (Pepcid) 20 mg Q12 PO Last administered on 11/12/16 09:30; Admin Dose 20 MG; Start 09/28/16 at 21:00 Aspirin (Aspirin) 81 mg DAILY PO Last administered on 11/11/16 08:15; Admin Dose 81 MG; Start 09/29/16 at 09:00 Atorvastatin Calcium (Lipitor) 10 mg QHS PO Last administered on 11/11/16 21:11 ; Admin Dose 10 MG; Start 09/28/16 at 21:00 Tiotropium [place] (Spiriva) 1 inh DAILY INH ; Start 09/28/16 at 16:00; Status Future Hold Mupirocin (Bactroban) 1 applic BID TOP Last administered on 11/11/16 22:04; Admin Dose 1 APPLIC; Start 09/30/16 at 09:00 Diagnostic Test (Pha) (Accucheck) 1 ea 02 XX Last administered on 11/03/16 02: 00; Admin Dose 1 EA; Start 10/05/16 at 02:00 Miscellaneous Information 1 ea NOTE XX ; Start 10/04/16 at 09:00 Glucose (Glutose) 15 gm Q15M PRN PO DECREASED GLUCOSE; Start 10/04/16 at 09:00 Glucose (Glutose) 22.5 gm Q15M PRN PO DECREASED GLUCOSE; Start 10/04/16 at 09: 00 Dextrose (D50w Syringe) 25 ml Q15M PRN IV DECREASED GLUCOSE; Start 10/04/16 at 09:00 Dextrose (D50w Syringe) 50 ml Q15M PRN IV DECREASED GLUCOSE; Start 10/04/16 at 09:00 Glucagon (Glucagen) 1 mg Q15M PRN IM DECREASED GLUCOSE; Start 10/04/16 at 09:00 Glucose (Glutose) 15 gm Q15M PRN BUCCAL DECREASED GLUCOSE; Start 10/04/16 at 09 :00 Metoprolol Tartrate (Lopressor) 5 mg Q4 PRN IV HR>110 Hold SBP<100; Start 10/05 at 19:30 Insulin Glargine (Lantus) 15 unit HS SC Last administered on 11/11/16 21:14; Admin Dose 15 UNIT; Start 10/10/16 at 21:00 Montelukast Sodium (Singulair) 10 mg HS PO Last administered on 11/11/16 21:11 ; Admin Dose 10 MG; Start 10/10/16 at 21:00 Theophylline (Benji-24) 300 mg QHS PO Last administered on 11/11/16 21:11; Admin Dose 300 MG; Start 10/10/16 at 21:00 Apixaban (Eliquis) 5 mg BID PO Last administered on 11/11/16 21:11; Admin Dose 5 MG; Start 10/10/16 at 21:00 Digoxin (Digoxin) 0.125 mg DAILY@13 PO Last administered on 11/10/16 13:35; Admin Dose 0.125 MG; Start 10/12/16 at 13:00 Furosemide (Lasix) 40 mg AM PO Last administered on 11/11/16 08:15; Admin Dose 40 MG; Start 10/25/16 at 09:00 Amiodarone HCl (Cordarone) 200 mg BID PO Last administered on 11/12/16 09:30; Admin Dose 200 MG; Start 10/24/16 at 21:00 Metoprolol Succinate (Toprol Xl) 50 mg DAILY PO Last administered on 11/11/16 08:16; Admin Dose 50 MG; Start 10/28/16 at 09:00 Metoprolol Succinate 50 mg 50 mg HS PO Last administered on 11/11/16 21:10; Admin Dose 50 MG; Start 10/28/16 at 21:00 Colistimethate Sodium/Sodium Chloride (Coly-Mycin/NS) 100 ml @ 200 mls/hr Q12 IVPB Last administered on 11/12/16 09:46; Admin Dose 200 MLS/HR; Start at 21:00 Lisinopril (Zestril) 10 mg DAILY PO Last administered on 11/11/16 08:15; Admin Dose 10 MG; Start 11/06/16 at 09:00 Prednisone (Prednisone) 8 mg DAILY PO Last administered on 11/12/16 09:46; Admin Dose 8 MG; Start 11/07/16 at 09:00 Salmeterol Xinafoate/ Fluticasone (Advair 250/50 Diskus) 1 inh BID INH Last administered on 11/12/16 09:28; Admin Dose 1 INH; Start 11/07/16 at 09:00 CODY BRANCH NP Nov 12, 2016 13:22
--- NOTE | 2016-11-12 13:54 | CONS ---
Date/Time of Note Date/Time of Note DATE: 11/12/16 TIME: 13:51 Assessment/Plan Assessment/Plan Chief Complaint/Hosp Course IMPRESSION: 1. Atrial fibrillation with rapid ventricular response.-improved HR and now back in SR when last on tele 2. Congestive heart failure, systolic, acute on chronic. 3. History of cardiomyopathy with decreased left ventricular ejection fraction 20% to 25% per chart biopsy. 4. Shortness of breath. 5. Status post hypercapnic respiratory failure, status post extubation. 6. Chronic obstructive pulmonary disease. 7. Hypertension. 8. Dyslipidemia. 9. History of automatic implantable cardioverter-defibrillator with possible discharge.-s/p interrogation with ICD shock for uncontrolled rapid AF. 10. Pneumonia. 11.Positive troponin-minimal with no sig uptrend 12.UTI-Klebs 14.Bacteremia-Klebs/persistent-most recent Bld cx's negative Recc -Tele -Continue asa/Eliquis -ACEI/BB as tolerated and may need to decrease doses to allow to better tolerate -Hold digoxin given elevated levels -Continue statin -Follow volume status and continue lasix PO daily -Continue abx's and f/u cx data and -awaiting placement Problems: Consultation Date/Type/Reason Admit Date/Time Sep 28, 2016 at 14:41 Initial Consult Date 09/28/16 Type of Consultation: Cardiology Reason for Consultation AF/cmy/ICD discharge Referring Provider: DEVON MUHAMMAD MD Exam/Review of Systems Vital Signs Vitals Vital Signs Date Time Temp Pulse Resp B/P Pulse Ox O2 Delivery O2 Flow Rate FiO2 11/12/16 11:57 3.0 11/12/16 08:00 Nasal Cannula 11/12/16 08:00 66 20 93 11/12/16 07:41 98.4 100/59 Intake and Output 11/11/16 11/11/16 11/12/16 15:00 23:00 07:00 Intake Total 100 ml 1900 ml 1350 ml Output Total 1600 ml 3500 ml Balance 100 ml 300 ml -2150 ml Exam Review of Systems: CONSTITUTIONAL: No fevers, chills. PULMONARY: No sob CARDIOVASCULAR: No chest pain/palpitations GASTROINTESTINAL: No nausea/vomiting. GENITOURINARY: No hematuria/dysuria. MUSCULOSKELETAL: No myagias/arthalgias. PSYCHIATRIC: The patient denies depression. NEUROLOGIC: No weakness Constitutional: other (sleeping) Psych: no complaints Head: normocephalic ENMT: mucosa pink and moist Neck: jvd (9 cm water), supple Respiratory: diminished breath sounds (at bases/B) Cardiovascular: regular rate and rhythm Gastrointestinal: non-tender, soft Musculoskeletal: muscle tone (normal) Extremities: edema (none) Neurological: other (No focal deficits) Results Result Diagram: 11/10/16 0433 11/12/16 0507 Results 24 hrs Laboratory Tests Test 11/11/16 15:40 11/11/16 16:58 11/11/16 21:07 11/12/16 05:07 Digoxin Level 1.6 Bedside Glucose 181 175 Blood Urea Nitrogen 38 H Creatinine 1.22 Test 11/12/16 07:53 11/12/16 11:49 Bedside Glucose 131 135 Medications Medications Current Medications IV Flush (NS 10 ml) 10 ml PRN PRN IV IV PROTOCOL Last administered on 11/11/16 08:14; Admin Dose 10 ML; Start 09/28/16 at 14:00 Ondansetron HCl (Zofran Inj) 4 mg Q6H PRN IV NAUSEA AND/OR VOMITING; Start at 15:00 Nitroglycerin (Nitroglycerin (Sl Tab) 0.4 Mg) 1 tab Q5M PRN SL CHEST PAIN; Start 09/28/16 at 15:00 Acetaminophen (Tylenol Liquid) 650 mg Q6H PRN PO PAIN LEVEL 1-3 OR FEVER Last administered on 11/07/16 05:09; Admin Dose 650 MG; Start 09/28/16 at 15:00 Acetaminophen (Tylenol Tab) 650 mg Q6H PRN PO PAIN LEVEL 1-3 OR FEVER Last administered on 10/28/16 09:00; Admin Dose 650 MG; Start 09/28/16 at 15:00 Morphine Sulfate (morphine) 2 mg Q4H PRN IV PAIN LEVEL 7-10 Last administered on 09/29/16 02:30; Admin Dose 2 MG; Start 09/28/16 at 15:00 Lorazepam (Ativan) 1 mg Q2H PRN IV ANXIETY Last administered on 10/29/16 20:56 ; Admin Dose 1 MG; Start 09/28/16 at 15:00 Docusate Sodium (Colace) 100 mg Q12H PRN PO CONSTIPATION Last administered on 08:14; Admin Dose 100 MG; Start 09/28/16 at 15:00 Famotidine (Pepcid) 20 mg Q12 PO Last administered on 11/12/16 09:30; Admin Dose 20 MG; Start 09/28/16 at 21:00 Aspirin (Aspirin) 81 mg DAILY PO Last administered on 11/11/16 08:15; Admin Dose 81 MG; Start 09/29/16 at 09:00 Atorvastatin Calcium (Lipitor) 10 mg QHS PO Last administered on 11/11/16 21:11 ; Admin Dose 10 MG; Start 09/28/16 at 21:00 Tiotropium [place] (Spiriva) 1 inh DAILY INH ; Start 09/28/16 at 16:00; Status Future Hold Mupirocin (Bactroban) 1 applic BID TOP Last administered on 11/11/16 22:04; Admin Dose 1 APPLIC; Start 09/30/16 at 09:00 Diagnostic Test (Pha) (Accucheck) 1 ea 02 XX Last administered on 11/03/16 02: 00; Admin Dose 1 EA; Start 10/05/16 at 02:00 Miscellaneous Information 1 ea NOTE XX ; Start 10/04/16 at 09:00 Glucose (Glutose) 15 gm Q15M PRN PO DECREASED GLUCOSE; Start 10/04/16 at 09:00 Glucose (Glutose) 22.5 gm Q15M PRN PO DECREASED GLUCOSE; Start 10/04/16 at 09: 00 Dextrose (D50w Syringe) 25 ml Q15M PRN IV DECREASED GLUCOSE; Start 10/04/16 at 09:00 Dextrose (D50w Syringe) 50 ml Q15M PRN IV DECREASED GLUCOSE; Start 10/04/16 at 09:00 Glucagon (Glucagen) 1 mg Q15M PRN IM DECREASED GLUCOSE; Start 10/04/16 at 09:00 Glucose (Glutose) 15 gm Q15M PRN BUCCAL DECREASED GLUCOSE; Start 10/04/16 at 09 :00 Metoprolol Tartrate (Lopressor) 5 mg Q4 PRN IV HR>110 Hold SBP<100; Start 10/05 at 19:30 Insulin Glargine (Lantus) 15 unit HS SC Last administered on 11/11/16 21:14; Admin Dose 15 UNIT; Start 10/10/16 at 21:00 Montelukast Sodium (Singulair) 10 mg HS PO Last administered on 11/11/16 21:11 ; Admin Dose 10 MG; Start 10/10/16 at 21:00 Theophylline (Benji-24) 300 mg QHS PO Last administered on 11/11/16 21:11; Admin Dose 300 MG; Start 10/10/16 at 21:00 Apixaban (Eliquis) 5 mg BID PO Last administered on 11/11/16 21:11; Admin Dose 5 MG; Start 10/10/16 at 21:00 Digoxin (Digoxin) 0.125 mg DAILY@13 PO Last administered on 11/10/16 13:35; Admin Dose 0.125 MG; Start 10/12/16 at 13:00 Furosemide (Lasix) 40 mg AM PO Last administered on 11/11/16 08:15; Admin Dose 40 MG; Start 10/25/16 at 09:00 Amiodarone HCl (Cordarone) 200 mg BID PO Last administered on 11/12/16 09:30; Admin Dose 200 MG; Start 10/24/16 at 21:00 Metoprolol Succinate (Toprol Xl) 50 mg DAILY PO Last administered on 11/11/16 08:16; Admin Dose 50 MG; Start 10/28/16 at 09:00 Metoprolol Succinate 50 mg 50 mg HS PO Last administered on 11/11/16 21:10; Admin Dose 50 MG; Start 10/28/16 at 21:00 Colistimethate Sodium/Sodium Chloride (Coly-Mycin/NS) 100 ml @ 200 mls/hr Q12 IVPB Last administered on 11/12/16 09:46; Admin Dose 200 MLS/HR; Start at 21:00 Lisinopril (Zestril) 10 mg DAILY PO Last administered on 11/11/16 08:15; Admin Dose 10 MG; Start 11/06/16 at 09:00 Prednisone (Prednisone) 8 mg DAILY PO Last administered on 11/12/16 09:46; Admin Dose 8 MG; Start 11/07/16 at 09:00 Salmeterol Xinafoate/ Fluticasone (Advair 250/50 Diskus) 1 inh BID INH Last administered on 11/12/16t 09:28; Admin Dose 1 INH; Start 11/07/16 at 09:00 СВЕТЛАНА PADRON Nov 12, 2016 13:54
--- NOTE | 2016-11-12 17:15 | PN ---
Date/Time of Note Date/Time of Note DATE: 11/12/16 TIME: 17:13 Assessment/Plan VTE Prophylaxis VTE Prophylaxis Intervention: other (eliquis) Lines/Catheters IV Catheter Type (from Nrs): Saline [place] Central line still needed: Yes Urinary Cath still in place: Yes Reason Cath still needed: other (indicate) Assessment/Plan Assessment/Plan 1. 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 on colistimethate 2. 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 Simpson 3. COPD exacerbation, stable, neb, decrease steroid 4. facility acquired pneumonia, with ESBL E. Coli, and Lauren albicans, treated 5. Atrial fibrillation with RVR, sinus now, follow up with cardiology 6. Congestive heart failure, systolic, chronic, stable 7. Ischemic cardiomyopathy 8. CAD 9. s/p ICD, stable 10. Essential hypertension, stable 11. Dyslipidemia. Continue statin. 12. Hx of Foot Fx- stable 13. DVT prophylaxis: eliquis 14. Awaiting for placement Subjective 24 Hr Interval Summary Free Text/Dictation no event. talked to patient's mother today Exam/Review of Systems Vital Signs Vitals Vital Signs Date Time Temp Pulse Resp B/P Pulse Ox O2 Delivery O2 Flow Rate FiO2 11/12/16 14:28 70 20 93 Nasal Cannula 3.0 11/12/16 07:41 98.4 100/59 Intake and Output 11/11/16 11/11/16 11/12/16 15:00 23:00 07:00 Intake Total 100 ml 1900 ml 1350 ml Output Total 1600 ml 3500 ml Balance 100 ml 300 ml -2150 ml Exam Constitutional: alert, oriented, well developed Psych: nl mood/affect, no complaints Head: atraumatic, normocephalic Eyes: EOMI, nl conjunctiva, nl lids ENMT: nl external ears & nose, nl lips & teeth, nl nasal mucosa & septum Neck: non-tender, supple Respiratory: clear to auscultation, normal air movement, No congested cough, No crackles/rales, No diminished breath sounds, No intercostal retraction, No labored breathing, No other, No respirations, No tactile fremitus, No wheezing Cardiovascular: nl pulses, regular rate and rhythm, No S3, No S4, No bruits, No diastolic murmur, No edema, No gallop, No irregular rhythm, No jugular venous distention (JVD), No murmurs/extra sounds, No other, No rub, No systolic murmur Gastrointestinal: nl liver, spleen, non-tender, soft, No ascites, No bowel sounds, No distended, No firm, No hepatomegaly, No mass , No other, No rebound or guarding, No splenomegaly, No surgical scars, No tender Musculoskeletal: nl extremities to inspection Extremities: normal pulses, No calf tenderness, No clubbing, No cyanosis, No edema, No other, No palpable cord, No pitting pedal edema, No tenderness Neurological: HELIX COIL WINDER II-XII intact, nl mental status, nl speech, nl strength Skin: nl turgor Results Result Diagram: 11/10/16 0433 11/12/16 0507 Results 24 hrs Laboratory Tests Test 11/11/16 21:07 11/12/16 05:07 11/12/16 07:53 11/12/16 11:49 Bedside Glucose 175 131 135 Blood Urea Nitrogen 38 H Creatinine 1.22 Test 11/12/16 16:35 Bedside Glucose 169 Medications Medications Current Medications IV Flush (NS 10 ml) 10 ml PRN PRN IV IV PROTOCOL Last administered on 11/11/16 08:14; Admin Dose 10 ML; Start 09/28/16 at 14:00 Ondansetron HCl (Zofran Inj) 4 mg Q6H PRN IV NAUSEA AND/OR VOMITING; Start at 15:00 Nitroglycerin (Nitroglycerin (Sl Tab) 0.4 Mg) 1 tab Q5M PRN SL CHEST PAIN; Start 09/28/16 at 15:00 Acetaminophen (Tylenol Liquid) 650 mg Q6H PRN PO PAIN LEVEL 1-3 OR FEVER Last administered on 11/07/16 05:09; Admin Dose 650 MG; Start 09/28/16 at 15:00 Acetaminophen (Tylenol Tab) 650 mg Q6H PRN PO PAIN LEVEL 1-3 OR FEVER Last administered on 10/28/16 09:00; Admin Dose 650 MG; Start 09/28/16 at 15:00 Morphine Sulfate (morphine) 2 mg Q4H PRN IV PAIN LEVEL 7-10 Last administered on 09/29/16 02:30; Admin Dose 2 MG; Start 09/28/16 at 15:00 Lorazepam (Ativan) 1 mg Q2H PRN IV ANXIETY Last administered on 10/29/16 20:56 ; Admin Dose 1 MG; Start 09/28/16 at 15:00 Docusate Sodium (Colace) 100 mg Q12H PRN PO CONSTIPATION Last administered on 08:14; Admin Dose 100 MG; Start 09/28/16 at 15:00 Famotidine (Pepcid) 20 mg Q12 PO Last administered on 11/12/16 09:30; Admin Dose 20 MG; Start 09/28/16 at 21:00 Aspirin (Aspirin) 81 mg DAILY PO Last administered on 11/11/16 08:15; Admin Dose 81 MG; Start 09/29/16 at 09:00 Atorvastatin Calcium (Lipitor) 10 mg QHS PO Last administered on 11/11/16 21:11 ; Admin Dose 10 MG; Start 09/28/16 at 21:00 Tiotropium [place] (Spiriva) 1 inh DAILY INH ; Start 09/28/16 at 16:00; Status Future Hold Mupirocin (Bactroban) 1 applic BID TOP Last administered on 11/11/16 22:04; Admin Dose 1 APPLIC; Start 09/30/16 at 09:00 Diagnostic Test (Pha) (Accucheck) 1 ea 02 XX Last administered on 11/03/16 02: 00; Admin Dose 1 EA; Start 10/05/16 at 02:00 Miscellaneous Information 1 ea NOTE XX ; Start 10/04/16 at 09:00 Glucose (Glutose) 15 gm Q15M PRN PO DECREASED GLUCOSE; Start 10/04/16 at 09:00 Glucose (Glutose) 22.5 gm Q15M PRN PO DECREASED GLUCOSE; Start 10/04/16 at 09: 00 Dextrose (D50w Syringe) 25 ml Q15M PRN IV DECREASED GLUCOSE; Start 10/04/16 at 09:00 Dextrose (D50w Syringe) 50 ml Q15M PRN IV DECREASED GLUCOSE; Start 10/04/16 at 09:00 Glucagon (Glucagen) 1 mg Q15M PRN IM DECREASED GLUCOSE; Start 10/04/16 at 09:00 Glucose (Glutose) 15 gm Q15M PRN BUCCAL DECREASED GLUCOSE; Start 10/04/16 at 09 :00 Metoprolol Tartrate (Lopressor) 5 mg Q4 PRN IV HR>110 Hold SBP<100; Start 10/05 at 19:30 Insulin Glargine (Lantus) 15 unit HS SC Last administered on 11/11/16 21:14; Admin Dose 15 UNIT; Start 10/10/16 at 21:00 Montelukast Sodium (Singulair) 10 mg HS PO Last administered on 11/11/16 21:11 ; Admin Dose 10 MG; Start 10/10/16 at 21:00 Theophylline (Benji-24) 300 mg QHS PO Last administered on 11/11/16 21:11; Admin Dose 300 MG; Start 10/10/16 at 21:00 Apixaban (Eliquis) 5 mg BID PO Last administered on 11/11/16 21:11; Admin Dose 5 MG; Start 10/10/16 at 21:00 Digoxin (Digoxin) 0.125 mg DAILY@13 PO Last administered on 11/10/16 13:35; Admin Dose 0.125 MG; Start 10/12/16 at 13:00; Status Future Hold Furosemide (Lasix) 40 mg AM PO Last administered on 11/11/16 08:15; Admin Dose 40 MG; Start 10/25/16 at 09:00 Amiodarone HCl (Cordarone) 200 mg BID PO Last administered on 11/12/16 09:30; Admin Dose 200 MG; Start 10/24/16 at 21:00 Metoprolol Succinate (Toprol Xl) 50 mg DAILY PO Last administered on 11/11/16 08:16; Admin Dose 50 MG; Start 10/28/16 at 09:00 Metoprolol Succinate 50 mg 50 mg HS PO Last administered on 11/11/16 21:10; Admin Dose 50 MG; Start 10/28/16 at 21:00 Colistimethate Sodium/Sodium Chloride (Coly-Mycin/NS) 100 ml @ 200 mls/hr Q12 IVPB Last administered on 11/12/16 09:46; Admin Dose 200 MLS/HR; Start at 21:00 Lisinopril (Zestril) 10 mg DAILY PO Last administered on 11/11/16 08:15; Admin Dose 10 MG; Start 11/06/16 at 09:00 Prednisone (Prednisone) 8 mg DAILY PO Last administered on 11/12/16 09:46; Admin Dose 8 MG; Start 11/07/16 at 09:00 Salmeterol Xinafoate/ Fluticasone (Advair 250/50 Diskus) 1 inh BID INH Last administered on 11/12/16 09:28; Admin Dose 1 INH; Start 11/07/16 at 09:00 FUNMI MEZA MD Nov 12, 2016 17:15
[2016-11-12] MEDS: predniSONE 2.5 MG TAB PO SCH (18:11)
[2016-11-12] MEDS: ATORVASTATIN 10 MG TAB PO SCH (20:13)
[2016-11-12] MEDS: MONTELUKAST 10 MG TAB PO SCH (20:13)
[2016-11-12] MEDS: THEOPHYLLINE (SR) 300 MG CAP PO SCH (20:15)
[2016-11-12] MEDS: INSULIN GLARGINE [LANtus] 3 ML PEN SC SCH (20:31)
[2016-11-13] MEDS: ALBUTEROL/IPRATROPIUM (NEB) 3 ML AMP HHN SCH ×4 (02:00→19:46)
[2016-11-13] MEDS: ACCU-CHEK XX SCH (02:00)
--- NOTE | 2016-11-13 03:50 | PN ---
DATE: 11/12/2016 SUBJECTIVE: Gross hematuria and urinary retention. The patient is very anxious, asking if we could take the catheter out, and stating that it bothers him. However, this patient has not been able to urinate, and we were doing intermittent catheterization on him, and when the volume remained over 8 00 to 1000 mL every 6 hours, we decided to put the Pruett catheter in. OBJECTIVE: VITAL SIGNS: Temperature is 98.4, blood pressure 100/59, pulse is 70, respirations 20. ABDOMEN: Soft. There is no abdominal tenderness at the present time. GENITOURINARY: The Pruett catheter is in a good position and is draining blood-tinged urine, but th ere are no blood clots in the tubing. The patient also does have a urinary tract infection with Klebsiella pneumonia Carbapenemase. IMPRESSION: Urinary retention. 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 We will need the Pruett catheter to be changed regularly. Dictated By: JOSÉ DOS SANTOS/NANDO Conf#: [id number] DID#: [id number]
[2016-11-13] MEDS: ACETAMINOPHEN 650MG/20.3ML CUP PO PRN (05:59)
[2016-11-13 07:48] VITALS: BP 111/64; RESP 16
[2016-11-13] MEDS: MUPIROCIN 2% 22 GM OINT TOP SCH ×2 (08:51→21:00)
[2016-11-13] MEDS: predniSONE 1 MG TAB PO SCH (08:53)
[2016-11-13] MEDS: SALMETEROL/FLUTICASONE 250/50 INHA INH SCH ×2 (08:53→20:48)
[2016-11-13] MEDS: FUROSEMIDE 40 MG TAB PO SCH (08:54)
[2016-11-13] MEDS: AMIODARONE 200 MG TAB PO SCH ×2 (08:54→20:49)
[2016-11-13] MEDS: ASPIRIN 81 MG TAB PO SCH (08:54)
[2016-11-13] MEDS: APIXABAN 5 MG TABLET PO SCH ×2 (08:54→20:49)
[2016-11-13] MEDS: COLISTIMETHATE 75 MG in SOD CHLORIDE 0.9% 100 ML IVPB SCH ×2 (08:55→20:48)
[2016-11-13] MEDS: LISINOPRIL 10 MG TAB PO SCH (08:55)
[2016-11-13] MEDS: FAMOTIDINE 20 MG TAB PO SCH ×2 (08:55→20:49)
[2016-11-13] MEDS: INSULIN ASPART [NOVOLOG] 3 ML PEN SC SCH ×7 (08:58→20:59)
--- NOTE | 2016-11-13 09:04 | PN ---
DATE: 11/13/2016 SUBJECTIVE: Urinary retention and gross hematuria. The patient is complaining about the catheter. He wants the catheter removed, and he is asking what he can do to have it removed. I explained to him that he has not been able to urinate and that he needs to have his bladder drained. He is anxio us and nervous about that. OBJECTIVE VITAL SIGNS: His temperature is 98.4, blood pressure 111/64, pulse 72, respirations 16. LABORATORY DATA: The CBC shows a white count of 18.9, hemoglobin 8.5, hematocrit 27.4. BUN is 38, creatinine 1.22. The patient did have, on admission, a renal ultrasound which showed mild to moderate bilateral hydro nephrosis, complex septated cyst in the lower pole of the right kidney, moderately distended bladder with echogenic debris within it. Further recommendation with a CT urogram is recommended. PLAN: I will discontinue the Pruett catheter and also will order a pelvic ultrasound and also a CT s can of the abdomen and pelvis and do in and out cath on him every 6 hours. Dictated By: JOSÉ DOS SANTOS/NANDO Conf#: [id number] DID#: [id number]
[2016-11-13 11:51] VITALS: BP 108/60; PULSE 78
[2016-11-13] MEDS: METOPROLOL (XL) 25 MG TAB PO SCH ×2 (12:19→20:52)
--- NOTE | 2016-11-13 12:27 | CONS ---
Date/Time of Note Date/Time of Note DATE: 11/13/16 TIME: 12:26 Assessment/Plan Assessment/Plan Chief Complaint/Hosp Course SUBJECTIVE: No events overnight, no fevers ANTIMICROBIALS: IV Colistin. PHYSICAL EXAMINATION: GENERAL: Well-developed, fragile, elderly man in no distress. HEENT: Head atraumatic, normocephalic. Sclerae anicteric. Buccal mucosa dry. NECK: Supple. CHEST: Rise symmetrical. Breath sounds clear, diminished to bases. HEART: S1, S2. ABDOMEN: Soft, bowel sounds present. EXTREMITIES: No cyanosis. ASSESSMENT: 1. Sepsis, resolving. 2. Multidrug resistant Klebsiella pneumoniae bacteremia 2 to #3. 3. Urinary tract infection==> s/p Pruett. 4. Urinary retention 5. Bilateral hydronephrosis. 6. Chronic obstructive pulmonary disease, status post pneumonia. 7. Coronary artery disease, history of automatic implantable cardioverter defibrillator, status post interrogation. PLAN: The patient remains unchanged, Pruett dc'd, repeat bld cx negative, continue abx for 4 more days, f/u rec-s, check labs in am Dw staff Problems: Consultation Date/Type/Reason Admit Date/Time Sep 28, 2016 at 14:41 Initial Consult Date 09/28/16 Type of Consultation: ID Referring Provider: DEVON MUHAMMAD MD Exam/Review of Systems Vital Signs Vitals Vital Signs Date Time Temp Pulse Resp B/P Pulse Ox O2 Delivery O2 Flow Rate FiO2 11/13/16 11:51 78 108/60 11/13/16 09:30 Nasal Cannula 3.0 11/13/16 07:48 98.4 16 96 Intake and Output 11/12/16 11/12/16 11/13/16 14:59 22:59 06:59 Intake Total 100 ml 1780 ml 600 ml Output Total 4100 ml 1000 ml Balance 100 ml -2320 ml -400 ml Results Result Diagram: 11/10/16 0433 11/12/16 0507 Results 24 hrs Laboratory Tests Test 11/12/16 16:35 11/12/16 20:23 11/13/16 07:39 11/13/16 11:34 Bedside Glucose 169 125 193 102 Medications Medications Current Medications IV Flush (NS 10 ml) 10 ml PRN PRN IV IV PROTOCOL Last administered on 11/11/16t 08:14; Admin Dose 10 ML; Start 09/28/16 at 14:00 Ondansetron HCl (Zofran Inj) 4 mg Q6H PRN IV NAUSEA AND/OR VOMITING; Start at 15:00 Nitroglycerin (Nitroglycerin (Sl Tab) 0.4 Mg) 1 tab Q5M PRN SL CHEST PAIN; Start 09/28/16 at 15:00 Acetaminophen (Tylenol Liquid) 650 mg Q6H PRN PO PAIN LEVEL 1-3 OR FEVER Last administered on 11/13/16 05:59; Admin Dose 650 MG; Start 09/28/16 at 15:00 Acetaminophen (Tylenol Tab) 650 mg Q6H PRN PO PAIN LEVEL 1-3 OR FEVER Last administered on 10/28/16 09:00; Admin Dose 650 MG; Start 09/28/16 at 15:00 Morphine Sulfate (morphine) 2 mg Q4H PRN IV PAIN LEVEL 7-10 Last administered on 09/29/16 02:30; Admin Dose 2 MG; Start 09/28/16 at 15:00 Lorazepam (Ativan) 1 mg Q2H PRN IV ANXIETY Last administered on 10/29/16 20:56 ; Admin Dose 1 MG; Start 09/28/16 at 15:00 Docusate Sodium (Colace) 100 mg Q12H PRN PO CONSTIPATION Last administered on 08:14; Admin Dose 100 MG; Start 09/28/16 at 15:00 Famotidine (Pepcid) 20 mg Q12 PO Last administered on 11/13/16 08:55; Admin Dose 20 MG; Start 09/28/16 at 21:00 Aspirin (Aspirin) 81 mg DAILY PO Last administered on 11/13/16 08:54; Admin Dose 81 MG; Start 09/29/16 at 09:00 Atorvastatin Calcium (Lipitor) 10 mg QHS PO Last administered on 11/12/16 20:13 ; Admin Dose 10 MG; Start 09/28/16 at 21:00 Tiotropium [place] (Spiriva) 1 inh DAILY INH ; Start 09/28/16 at 16:00; Status Future Hold Mupirocin (Bactroban) 1 applic BID TOP Last administered on 11/11/16 22:04; Admin Dose 1 APPLIC; Start 09/30/16 at 09:00 Diagnostic Test (Pha) (Accucheck) 1 ea 02 XX Last administered on 11/03/16 02: 00; Admin Dose 1 EA; Start 10/05/16 at 02:00 Miscellaneous Information 1 ea NOTE XX ; Start 10/04/16 at 09:00 Glucose (Glutose) 15 gm Q15M PRN PO DECREASED GLUCOSE; Start 10/04/16 at 09:00 Glucose (Glutose) 22.5 gm Q15M PRN PO DECREASED GLUCOSE; Start 10/04/16 at 09: 00 Dextrose (D50w Syringe) 25 ml Q15M PRN IV DECREASED GLUCOSE; Start 10/04/16 at 09:00 Dextrose (D50w Syringe) 50 ml Q15M PRN IV DECREASED GLUCOSE; Start 10/04/16 at 09:00 Glucagon (Glucagen) 1 mg Q15M PRN IM DECREASED GLUCOSE; Start 10/04/16 at 09:00 Glucose (Glutose) 15 gm Q15M PRN BUCCAL DECREASED GLUCOSE; Start 10/04/16 at 09 :00 Metoprolol Tartrate (Lopressor) 5 mg Q4 PRN IV HR>110 Hold SBP<100; Start 10/05 at 19:30 Insulin Glargine (Lantus) 15 unit HS SC Last administered on 11/12/16 20:31; Admin Dose 15 UNIT; Start 10/10/16 at 21:00 Montelukast Sodium (Singulair) 10 mg HS PO Last administered on 11/12/16 20:13 ; Admin Dose 10 MG; Start 10/10/16 at 21:00 Theophylline (Benji-24) 300 mg QHS PO Last administered on 11/12/16 20:15; Admin Dose 300 MG; Start 10/10/16 at 21:00 Apixaban (Eliquis) 5 mg BID PO Last administered on 11/13/16 08:54; Admin Dose 5 MG; Start 10/10/16 at 21:00 Digoxin (Digoxin) 0.125 mg DAILY@13 PO Last administered on 11/10/16 13:35; Admin Dose 0.125 MG; Start 10/12/16 at 13:00; Status Future Hold Furosemide (Lasix) 40 mg AM PO Last administered on 11/13/16 08:54; Admin Dose 40 MG; Start 10/25/16 at 09:00 Amiodarone HCl (Cordarone) 200 mg BID PO Last administered on 11/13/16 08:54; Admin Dose 200 MG; Start 10/24/16 at 21:00 Metoprolol Succinate (Toprol Xl) 50 mg DAILY PO Last administered on 11/13/16 12:19; Admin Dose 50 MG; Start 10/28/16 at 09:00 Metoprolol Succinate 50 mg 50 mg HS PO Last administered on 11/12/16 20:16; Admin Dose 50 MG; Start 10/28/16 at 21:00 Colistimethate Sodium/Sodium Chloride (Coly-Mycin/NS) 100 ml @ 200 mls/hr Q12 IVPB Last administered on 11/13/16 08:55; Admin Dose 200 MLS/HR; Start at 21:00 Lisinopril (Zestril) 10 mg DAILY PO Last administered on 11/13/16 08:55; Admin Dose 10 MG; Start 11/06/16 at 09:00 Prednisone (Prednisone) 8 mg DAILY PO Last administered on 11/13/16 08:53; Admin Dose 8 MG; Start 11/07/16 at 09:00 Salmeterol Xinafoate/ Fluticasone (Advair 250/50 Diskus) 1 inh BID INH Last administered on 11/13/16 08:53; Admin Dose 1 INH; Start 11/07/16 at 09:00 CODY BRANCH NP Nov 13, 2016 12:27
--- NOTE | 2016-11-13 13:10 | CONS ---
Date/Time of Note Date/Time of Note DATE: 11/13/16 TIME: 13:08 Assessment/Plan Assessment/Plan Chief Complaint/Hosp Course IMPRESSION: 1. Atrial fibrillation with rapid ventricular response.-improved HR and now back in SR by ecg 11/13 2. Congestive heart failure, systolic, acute on chronic. 3. History of cardiomyopathy with decreased left ventricular ejection fraction 20% to 25% per chart biopsy. 4. Shortness of breath. 5. Status post hypercapnic respiratory failure, status post extubation. 6. Chronic obstructive pulmonary disease. 7. Hypertension. 8. Dyslipidemia. 9. History of automatic implantable cardioverter-defibrillator with possible discharge.-s/p interrogation with ICD shock for uncontrolled rapid AF. 10. Pneumonia. 11.Positive troponin-minimal with no sig uptrend 12.UTI-Klebs 14.Bacteremia-Klebs/persistent-most recent Bld cx's negative Recc -Tele -Continue asa/Eliquis -ACEI/BB as tolerated -Contuinue to hold digoxin given elevated levels -Continue statin -Follow volume status and continue lasix PO daily -Continue abx's and f/u cx data and -awaiting placement Problems: Consultation Date/Type/Reason Admit Date/Time Sep 28, 2016 at 14:41 Initial Consult Date 09/28/16 Type of Consultation: Cardiology Reason for Consultation AICD discharge/AF/cmy Referring Provider: DEVON MUHAMMAD MD Exam/Review of Systems Vital Signs Vitals Vital Signs Date Time Temp Pulse Resp B/P Pulse Ox O2 Delivery O2 Flow Rate FiO2 11/13/16 11:51 78 108/60 11/13/16 09:30 Nasal Cannula 3.0 11/13/16 07:48 98.4 16 96 Intake and Output 11/12/16 11/12/16 11/13/16 15:00 23:00 07:00 Intake Total 100 ml 1780 ml 600 ml Output Total 4100 ml 1000 ml Balance 100 ml -2320 ml -400 ml Exam Review of Systems: CONSTITUTIONAL: No fevers, chills. PULMONARY: No sob CARDIOVASCULAR: No chest pain/palpitations GASTROINTESTINAL: No nausea/vomiting. GENITOURINARY: No hematuria/dysuria. MUSCULOSKELETAL: No myagias/arthalgias. PSYCHIATRIC: The patient denies depression. NEUROLOGIC: No weakness Constitutional: alert, oriented Psych: no complaints ENMT: mucosa pink and moist Neck: jvd (9 cm water), supple Respiratory: clear to auscultation Cardiovascular: regular rate and rhythm Gastrointestinal: non-tender, soft Musculoskeletal: muscle tone Extremities: edema (None) Neurological: other (No focal deficits) Results Result Diagram: 11/10/16 0433 11/12/16 0507 Results 24 hrs Laboratory Tests Test 11/12/16 16:35 11/12/16 20:23 11/13/16 07:39 11/13/16 11:34 Bedside Glucose 169 125 193 102 Medications Medications Current Medications IV Flush (NS 10 ml) 10 ml PRN PRN IV IV PROTOCOL Last administered on 11/11/16 08:14; Admin Dose 10 ML; Start 09/28/16 at 14:00 Ondansetron HCl (Zofran Inj) 4 mg Q6H PRN IV NAUSEA AND/OR VOMITING; Start at 15:00 Nitroglycerin (Nitroglycerin (Sl Tab) 0.4 Mg) 1 tab Q5M PRN SL CHEST PAIN; Start 09/28/16 at 15:00 Acetaminophen (Tylenol Liquid) 650 mg Q6H PRN PO PAIN LEVEL 1-3 OR FEVER Last administered on 11/13/16 05:59; Admin Dose 650 MG; Start 09/28/16 at 15:00 Acetaminophen (Tylenol Tab) 650 mg Q6H PRN PO PAIN LEVEL 1-3 OR FEVER Last administered on 10/28/16 09:00; Admin Dose 650 MG; Start 09/28/16 at 15:00 Morphine Sulfate (morphine) 2 mg Q4H PRN IV PAIN LEVEL 7-10 Last administered on 09/29/16 02:30; Admin Dose 2 MG; Start 09/28/16 at 15:00 Lorazepam (Ativan) 1 mg Q2H PRN IV ANXIETY Last administered on 10/29/16 20:56 ; Admin Dose 1 MG; Start 09/28/16 at 15:00 Docusate Sodium (Colace) 100 mg Q12H PRN PO CONSTIPATION Last administered on 08:14; Admin Dose 100 MG; Start 09/28/16 at 15:00 Famotidine (Pepcid) 20 mg Q12 PO Last administered on 11/13/16 08:55; Admin Dose 20 MG; Start 09/28/16 at 21:00 Aspirin (Aspirin) 81 mg DAILY PO Last administered on 11/13/16 08:54; Admin Dose 81 MG; Start 09/29/16 at 09:00 Atorvastatin Calcium (Lipitor) 10 mg QHS PO Last administered on 11/12/16 20:13 ; Admin Dose 10 MG; Start 09/28/16 at 21:00 Tiotropium [place] (Spiriva) 1 inh DAILY INH ; Start 09/28/16 at 16:00; Status Future Hold Mupirocin (Bactroban) 1 applic BID TOP Last administered on 11/11/16 22:04; Admin Dose 1 APPLIC; Start 09/30/16 at 09:00 Diagnostic Test (Pha) (Accucheck) 1 ea 02 XX Last administered on 11/03/16 02: 00; Admin Dose 1 EA; Start 10/05/16 at 02:00 Miscellaneous Information 1 ea NOTE XX ; Start 10/04/16 at 09:00 Glucose (Glutose) 15 gm Q15M PRN PO DECREASED GLUCOSE; Start 10/04/16 at 09:00 Glucose (Glutose) 22.5 gm Q15M PRN PO DECREASED GLUCOSE; Start 10/04/16 at 09: 00 Dextrose (D50w Syringe) 25 ml Q15M PRN IV DECREASED GLUCOSE; Start 10/04/16 at 09:00 Dextrose (D50w Syringe) 50 ml Q15M PRN IV DECREASED GLUCOSE; Start 10/04/16 at 09:00 Glucagon (Glucagen) 1 mg Q15M PRN IM DECREASED GLUCOSE; Start 10/04/16 at 09:00 Glucose (Glutose) 15 gm Q15M PRN BUCCAL DECREASED GLUCOSE; Start 10/04/16 at 09 :00 Metoprolol Tartrate (Lopressor) 5 mg Q4 PRN IV HR>110 Hold SBP<100; Start 10/05 at 19:30 Insulin Glargine (Lantus) 15 unit HS SC Last administered on 11/12/16 20:31; Admin Dose 15 UNIT; Start 10/10/16 at 21:00 Montelukast Sodium (Singulair) 10 mg HS PO Last administered on 11/12/16 20:13 ; Admin Dose 10 MG; Start 10/10/16 at 21:00 Theophylline (Benji-24) 300 mg QHS PO Last administered on 11/12/16 20:15; Admin Dose 300 MG; Start 10/10/16 at 21:00 Apixaban (Eliquis) 5 mg BID PO Last administered on 11/13/16 08:54; Admin Dose 5 MG; Start 10/10/16 at 21:00 Digoxin (Digoxin) 0.125 mg DAILY@13 PO Last administered on 11/10/16 13:35; Admin Dose 0.125 MG; Start 10/12/16 at 13:00; Status Future Hold Furosemide (Lasix) 40 mg AM PO Last administered on 11/13/16 08:54; Admin Dose 40 MG; Start 10/25/16 at 09:00 Amiodarone HCl (Cordarone) 200 mg BID PO Last administered on 11/13/16 08:54; Admin Dose 200 MG; Start 10/24/16 at 21:00 Metoprolol Succinate (Toprol Xl) 50 mg DAILY PO Last administered on 11/13/16 12:19; Admin Dose 50 MG; Start 10/28/16 at 09:00 Metoprolol Succinate 50 mg 50 mg HS PO Last administered on 11/12/16 20:16; Admin Dose 50 MG; Start 10/28/16 at 21:00 Colistimethate Sodium/Sodium Chloride (Coly-Mycin/NS) 100 ml @ 200 mls/hr Q12 IVPB Last administered on 11/13/16 08:55; Admin Dose 200 MLS/HR; Start at 21:00 Lisinopril (Zestril) 10 mg DAILY PO Last administered on 11/13/16 08:55; Admin Dose 10 MG; Start 11/06/16 at 09:00 Prednisone (Prednisone) 8 mg DAILY PO Last administered on 11/13/16 08:53; Admin Dose 8 MG; Start 11/07/16 at 09:00 Salmeterol Xinafoate/ Fluticasone (Advair 250/50 Diskus) 1 inh BID INH Last administered on 11/13/16 08:53; Admin Dose 1 INH; Start 11/07/16 at 09:00 СВЕТЛАНА PADRON 10, 2017 13:10
--- NOTE | 2016-11-13 13:47 | RADRPT ---
PROCEDURE: US Pelvis. CLINICAL INDICATION: Dysuria. TECHNIQUE: Multiple transabdominal sonographic images of the pelvis were obtained. COMPARISON: None. FINDINGS: The prostate gland measures approximately 3.8 x 3.5 x 4.2 cm yielding a volume of 29 cc which is wit hin normal limits. There is slight protrusion of the central portion of the prostate gland into the base of the bladder. The bladder is partially distended with concentric wall thickening. A pre vo id bladder volume is 153 cc. Postvoid bladder volume is approximately 134 cc. IMPRESSION: Mild nodular enlargement of the central portion of the prostate gland protruding into the base of th e bladder. Mild concentric bladder wall thickening with large postvoid residual, as described above. RPTAT: HLST .Yennifer Porras MD, Date Time Electronically viewed and signed by .Yennifer Porras MD, on 11/13/2016 13:47 .T/
--- NOTE | 2016-11-13 14:04 | PN ---
Date/Time of Note Date/Time of Note DATE: 11/13/16 TIME: 14:02 Assessment/Plan VTE Prophylaxis VTE Prophylaxis Intervention: other (eliquis) Lines/Catheters IV [facility] [place] [facility] Urinary Cath still in place: No (removed f/c as ordered by Dr. Enriquez) Assessment/Plan Assessment/Plan 1. 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 on colistimethate 2. 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 Simpson 3. COPD exacerbation, stable, neb, decrease steroid 4. facility acquired pneumonia, with ESBL E. Coli, and Lauren albicans, treated 5. Atrial fibrillation with RVR, sinus now, follow up with cardiology 6. Congestive heart failure, systolic, chronic, stable 7. Ischemic cardiomyopathy 8. CAD 9. s/p ICD, stable 10. Essential hypertension, stable 11. Dyslipidemia. Continue statin. 12. Hx of Foot Fx- stable 13. DVT prophylaxis: eliquis Subjective 24 Hr Interval Summary Free Text/Dictation urinary retention, unable to urinate without Pruett. Dr. Simpson is aware of it and managing it. Exam/Review of Systems Vital Signs Vitals Vital Signs Date Time Temp Pulse Resp B/P Pulse Ox O2 Delivery O2 Flow Rate FiO2 11/13/16 11:51 78 108/60 11/13/16 09:30 Nasal Cannula 3.0 11/13/16 07:48 98.4 16 96 Intake and Output 11/12/16 11/12/16 11/13/16 15:00 23:00 07:00 Intake Total 100 ml 1780 ml 600 ml Output Total 4100 ml 1000 ml Balance 100 ml -2320 ml -400 ml Exam Constitutional: alert, oriented, well developed Psych: nl mood/affect, no complaints Head: atraumatic, normocephalic Eyes: EOMI, PERRL, nl conjunctiva, nl lids ENMT: nl external ears & nose, nl lips & teeth, nl nasal mucosa & septum Neck: non-tender, supple Respiratory: clear to auscultation, normal air movement, No congested cough, No crackles/rales, No diminished breath sounds, No intercostal retraction, No labored breathing, No other, No respirations, No tactile fremitus, No wheezing Cardiovascular: nl pulses, regular rate and rhythm, No S3, No S4, No bruits, No diastolic murmur, No edema, No gallop, No irregular rhythm, No jugular venous distention (JVD), No murmurs/extra sounds, No other, No rub, No systolic murmur Gastrointestinal: nl liver, spleen, non-tender, soft, No ascites, No bowel sounds, No distended, No firm, No hepatomegaly, No mass , No other, No rebound or guarding, No splenomegaly, No surgical scars, No tender Musculoskeletal: nl extremities to inspection Extremities: normal pulses, No calf tenderness, No clubbing, No cyanosis, No edema, No other, No palpable cord, No pitting pedal edema, No tenderness Neurological: [employer] II-XII intact, nl mental status, nl speech, nl strength Skin: nl turgor Results Result Diagram: 11/10/16 0433 11/12/16 0507 Results 24 hrs Laboratory Tests Test 11/12/16 16:35 11/12/16 20:23 11/13/16 07:39 11/13/16 11:34 Bedside Glucose 169 125 193 102 Medications Medications Current Medications IV Flush (NS 10 ml) 10 ml PRN PRN IV IV PROTOCOL Last administered on 11/11/16 08:14; Admin Dose 10 ML; Start 09/28/16 at 14:00 Ondansetron HCl (Zofran Inj) 4 mg Q6H PRN IV NAUSEA AND/OR VOMITING; Start at 15:00 Nitroglycerin (Nitroglycerin (Sl Tab) 0.4 Mg) 1 tab Q5M PRN SL CHEST PAIN; Start 09/28/16 at 15:00 Acetaminophen (Tylenol Liquid) 650 mg Q6H PRN PO PAIN LEVEL 1-3 OR FEVER Last administered on 11/13/16 05:59; Admin Dose 650 MG; Start 09/28/16 at 15:00 Acetaminophen (Tylenol Tab) 650 mg Q6H PRN PO PAIN LEVEL 1-3 OR FEVER Last administered on 10/28/16 09:00; Admin Dose 650 MG; Start 09/28/16 at 15:00 Morphine Sulfate (morphine) 2 mg Q4H PRN IV PAIN LEVEL 7-10 Last administered on 09/29/16 02:30; Admin Dose 2 MG; Start 09/28/16 at 15:00 Lorazepam (Ativan) 1 mg Q2H PRN IV ANXIETY Last administered on 10/29/16 20:56 ; Admin Dose 1 MG; Start 09/28/16 at 15:00 Docusate Sodium (Colace) 100 mg Q12H PRN PO CONSTIPATION Last administered on 08:14; Admin Dose 100 MG; Start 09/28/16 at 15:00 Famotidine (Pepcid) 20 mg Q12 PO Last administered on 11/13/16 08:55; Admin Dose 20 MG; Start 09/28/16 at 21:00 Aspirin (Aspirin) 81 mg DAILY PO Last administered on 11/13/16 08:54; Admin Dose 81 MG; Start 09/29/16 at 09:00 Atorvastatin Calcium (Lipitor) 10 mg QHS PO Last administered on 11/12/16 20:13 ; Admin Dose 10 MG; Start 09/28/16 at 21:00 Tiotropium [place] (Spiriva) 1 inh DAILY INH ; Start 09/28/16 at 16:00; Status Future Hold Mupirocin (Bactroban) 1 applic BID TOP Last administered on 11/11/16 22:04; Admin Dose 1 APPLIC; Start 09/30/16 at 09:00 Diagnostic Test (Pha) (Accucheck) 1 ea 02 XX Last administered on 11/03/16 02: 00; Admin Dose 1 EA; Start 10/05/16 at 02:00 Miscellaneous Information 1 ea NOTE XX ; Start 10/04/16 at 09:00 Glucose (Glutose) 15 gm Q15M PRN PO DECREASED GLUCOSE; Start 10/04/16 at 09:00 Glucose (Glutose) 22.5 gm Q15M PRN PO DECREASED GLUCOSE; Start 10/04/16 at 09: 00 Dextrose (D50w Syringe) 25 ml Q15M PRN IV DECREASED GLUCOSE; Start 10/04/16 at 09:00 Dextrose (D50w Syringe) 50 ml Q15M PRN IV DECREASED GLUCOSE; Start 10/04/16 at 09:00 Glucagon (Glucagen) 1 mg Q15M PRN IM DECREASED GLUCOSE; Start 10/04/16 at 09:00 Glucose (Glutose) 15 gm Q15M PRN BUCCAL DECREASED GLUCOSE; Start 10/04/16 at 09 :00 Metoprolol Tartrate (Lopressor) 5 mg Q4 PRN IV HR>110 Hold SBP<100; Start 10/05 at 19:30 Insulin Glargine (Lantus) 15 unit HS SC Last administered on 11/12/16 20:31; Admin Dose 15 UNIT; Start 10/10/16 at 21:00 Montelukast Sodium (Singulair) 10 mg HS PO Last administered on 11/12/16 20:13 ; Admin Dose 10 MG; Start 10/10/16 at 21:00 Theophylline (Benji-24) 300 mg QHS PO Last administered on 11/12/16 20:15; Admin Dose 300 MG; Start 10/10/16 at 21:00 Apixaban (Eliquis) 5 mg BID PO Last administered on 11/13/16 08:54; Admin Dose 5 MG; Start 10/10/16 at 21:00 Digoxin (Digoxin) 0.125 mg DAILY@13 PO Last administered on 11/10/16 13:35; Admin Dose 0.125 MG; Start 10/12/16 at 13:00; Status Future Hold Furosemide (Lasix) 40 mg AM PO Last administered on 11/13/16 08:54; Admin Dose 40 MG; Start 10/25/16 at 09:00 Amiodarone HCl (Cordarone) 200 mg BID PO Last administered on 11/13/16 08:54; Admin Dose 200 MG; Start 10/24/16 at 21:00 Metoprolol Succinate (Toprol Xl) 50 mg DAILY PO Last administered on 11/13/16 12:19; Admin Dose 50 MG; Start 10/28/16 at 09:00 Metoprolol Succinate 50 mg 50 mg HS PO Last administered on 11/12/16 20:16; Admin Dose 50 MG; Start 10/28/16 at 21:00 Colistimethate Sodium/Sodium Chloride (Coly-Mycin/NS) 100 ml @ 200 mls/hr Q12 IVPB Last administered on 11/13/16 08:55; Admin Dose 200 MLS/HR; Start at 21:00 Lisinopril (Zestril) 10 mg DAILY PO Last administered on 11/13/16 08:55; Admin Dose 10 MG; Start 3/3/17 at 09:00 Prednisone (Prednisone) 8 mg DAILY PO Last administered on 11/13/16 08:53; Admin Dose 8 MG; Start 11/07/16 at 09:00 Salmeterol Xinafoate/ Fluticasone (Advair 250/50 Diskus) 1 inh BID INH Last administered on 11/13/16 08:53; Admin Dose 1 INH; Start 11/07/16 at 09:00 FUNMI MEZA MD Nov 13, 2016 14:04
--- NOTE | 2016-11-13 14:45 | RADRPT ---
Vent Rate: 68 bpm RR Interval: [address] Interval: 178 msec QRS Duration: 104 msec QT Interval: 366 msec QTC Interval: 389 msec P-R-T [place]: 61 - -44 - 68 degrees Normal sinus rhythm Left axis deviation Anteroseptal infarct , age undetermined Abnormal ECG Electronically Signed By: Matt Rider [id number]
--- NOTE | 2016-11-13 17:47 | RADRPT ---
PROCEDURE: CT Abdomen and Pelvis without contrast. CLINICAL INDICATION: Abdominal and pelvic pain. Hydronephrosis. TECHNIQUE: CT scan of the abdomen and pelvis without contrast was performed. Coronal and sagittal reformatted images were obtained from the axial source images. Images were reviewed on a high-resolu tion PACS workstation. Total exam DLP is 785.35 mGy-cm. CTDIvol is 11.96 mGy. One or more of the f ollowing dose reduction techniques were used: Automated exposure control, adjustment of the mA and/o r kV according to patient size, use of iterative reconstruction technique. COMPARISON: Renal ultrasound dated 11/03/2016. FINDINGS: There is mild air space disease at the right lung base consistent with atelectasis or pneumonia. Th ere is elevation of the right hemidiaphragm. Emphysematous changes are present at the lung bases. The lung bases are otherwise normal. There is no pleural effusion or pericardial effusion. There is a single lead permanent pacemaker/internal cardiac defibrillator in satisfactory position with the tip in the right ventricle. The heart is enlarged. There is coronary artery calcification. A sten t is present in the LAD. The liver is normal in size and attenuation. There is no focal hepatic lesion. The gallbladder and bile ducts are normal. The spleen is normal in size. There is no focal splenic lesion. Both adrenals are normal with no enlargement or mass. The pancreas is unremarkable with no mass or evidence of pancreatitis. There is moderate bilateral hydronephrosis with right worse than left. No obstructing lesion is vis ualized. There is thickening of the endothelium of the right intrarenal collecting system, right nevin al pelvis, and upper right ureter. A benign cyst is present in the lower right kidney measuring 2.1 cm. The abdominal aorta is not dilated. There is calcification in the aorta consistent with atheroscler osis. An inferior vena cava filter is present in satisfactory position below the level of the renal veins. There is no retroperitoneal lymphadenopathy or mass. There is no pelvic lymphadenopathy or mass. There is diffuse bladder wall thickening. The prostate is mildly enlarged. The appendix is well seen and appears normal. A large amount of stool is present throughout the colon consistent with constipation. There is dive rticulosis of the colon without evidence of diverticulitis. The bowel and mesentery are otherwise n ormal. There is no free fluid or free gas. There are degenerative changes of the spine. There is no fracture or lytic lesion. IMPRESSION: 1. Mild air space disease at the right lung base consistent with atelectasis or pneumonia. 2. Mild elevation of the right hemidiaphragm. 3. Pulmonary emphysema. 4. Permanent pacemaker/internal cardiac defibrillator. 5. Cardiomegaly. 6. Coronary artery calcification. 7. Stent in the LAD. 8. Moderate bilateral hydronephrosis with right worse than left. No obstructing lesion visualized. 9. Thickening of the endothelium of the right intrarenal collecting system, right renal pelvis, and upper right ureter. This may indicate an inflammatory or infectious process. 10. Benign cyst in the lower right kidney measuring 2.1 cm. 11. Atherosclerosis. 12. IVC filter in satisfactory position. 13. Diffuse bladder wall thickening. 14. Mildly enlarged prostate. 15. Constipation. 16. Diverticulosis of the colon without evidence of diverticulitis. 17. Degenerative changes of the spine. RPTAT: QQ .Demetrius Espinoza MD, MD Date Time Electronically viewed and signed by .Demetrius Espinoza MD, on 11/13/2016 17:46 .R/
[2016-11-13] MEDS: predniSONE 2.5 MG TAB PO SCH (18:06)
[2016-11-13 19:55] VITALS: BP 95/52; RESP 19
[2016-11-13] MEDS: THEOPHYLLINE (SR) 300 MG CAP PO SCH (20:48)
[2016-11-13] MEDS: MONTELUKAST 10 MG TAB PO SCH (20:49)
[2016-11-13] MEDS: ATORVASTATIN 10 MG TAB PO SCH (20:49)
[2016-11-13] MEDS: INSULIN GLARGINE [LANtus] 3 ML PEN SC SCH (20:56)
[2016-11-14] MEDS: ALBUTEROL/IPRATROPIUM (NEB) 3 ML AMP HHN SCH ×4 (02:00→20:00)
[2016-11-14] MEDS: ACCU-CHEK XX SCH (02:00)
[2016-11-14 06:10] LABS: ADD SCAN DIFF NO
[2016-11-14 06:15] LABS: ABNORMAL IP MESSAGE 1; BASOPHIL # 0.1 10^3/ul (0.0-0.1); BASOPHILS % 0.4 % (0.0-2.0); EOSINOPHILS # 0.1 10^3/ul (0.0-0.5); EOSINOPHILS % 0.7 % (0.0-7.0); HEMATOCRIT 25.9 % (42.0-52.0); HEMOGLOBIN 8.1 g/dl (14.0-18.0); LYMPHOCYTES # 1.3 10^3/ul (0.8-2.9); LYMPHOCYTES % 7.9 % (15.0-51.0); MEAN CORPUSCULAR HEMOGLOBIN 31.4 pg (29.0-33.0); MEAN CORPUSCULAR HGB CONC 31.3 g/dl (32.0-37.0); MEAN CORPUSCULAR VOLUME 100.4 fl (82.0-101.0); MEAN PLATELET VOLUME 9.6 fl (7.4-10.4); MONOCYTE # 1.4 10^3/ul (0.3-0.9); MONOCYTES % 8.8 % (0.0-11.0); NEUTROPHILS % 76.2 % (39.0-77.0); PLATELET COUNT 348 10^3/UL (140-415); RED BLOOD COUNT 2.58 10^6/ul (4.70-6.10); RED CELL DISTRIBUTION WIDTH 15.5 % (11.5-14.5); WHITE BLOOD COUNT 15.8 10^3/ul (4.8-10.8)
[2016-11-14 06:33] LABS: CREATININE 1.62 mg/dl (0.61-1.24)
[2016-11-14 07:10] VITALS: BP 114/62; RESP 22
[2016-11-14] MEDS: INSULIN ASPART [NOVOLOG] 3 ML PEN SC SCH ×7 (08:00→21:00)
[2016-11-14] MEDS: COLISTIMETHATE 75 MG in SOD CHLORIDE 0.9% 100 ML IVPB SCH ×2 (08:40→21:21)
[2016-11-14] MEDS: APIXABAN 5 MG TABLET PO SCH ×2 (08:41→21:21)
[2016-11-14] MEDS: SALMETEROL/FLUTICASONE 250/50 INHA INH SCH (08:41)
[2016-11-14] MEDS: FUROSEMIDE 40 MG TAB PO SCH (08:41)
[2016-11-14] MEDS: AMIODARONE 200 MG TAB PO SCH ×2 (08:42→21:20)
[2016-11-14] MEDS: ASPIRIN 81 MG TAB PO SCH (08:42)
[2016-11-14] MEDS: FAMOTIDINE 20 MG TAB PO SCH ×2 (08:47→21:20)
[2016-11-14] MEDS: BETHANECHOL 10 MG TAB PO SCH ×3 (08:48→21:20)
[2016-11-14] MEDS: LISINOPRIL 10 MG TAB PO SCH (08:49)
[2016-11-14] MEDS: MUPIROCIN 2% 22 GM OINT TOP SCH ×2 (08:58→21:21)
--- NOTE | 2016-11-14 10:09 | PN ---
Date/Time of Note Date/Time of Note DATE: 11/14/16 TIME: 10:04 Assessment/Plan VTE Prophylaxis VTE Prophylaxis Intervention: heparin Lines/Catheters IV C[facility]ter Type [facility]from [facility] Saline Lock Urinary Cath still in place: No (removed f/c as ordered by Dr. Enriquez) Assessment/Plan Chief Complaint/Hosp Course Hospital day 41 Problems: (1) Acute systolic congestive heart failure Status: Acute Comment: Improved with medical therapy. Please note the change in his renal function I am not personally of the opinion that he is developing prerenal azotemia also known as cardiorenal syndrome however we need to keep a careful eye on this (2) Foot fracture, right Status: Chronic Comment: Status post removal of the external bracing. Allow the wound on the skin to heal Qualifiers: Encounter type: initial encounter Fracture type: closed Qualified Code: S92.901A - Foot fracture, right, closed, initial encounter (3) COPD (chronic obstructive pulmonary disease) Status: Acute Comment: Well-controlled. Continue titration of the steroid Qualifiers: COPD type: emphysema Emphysema type: panlobular Qualified Code: J43.1 - Panlobular emphysema (4) Diabetes mellitus type 2 in nonobese Status: Chronic Comment: Well-controlled on current regimen please note need to watch sugars as were decreasing his steroids is therapeutic needs may decline (5) Klebsiella cystitis Status: Acute Comment: Recheck urine culture. (6) Hypertension Status: Chronic Comment: Adequately controlled Qualifiers: Hypertension type: essential hypertension Qualified Code: I10 - Essential hypertension (7) Hyperlipidemia associated with type 2 diabetes mellitus Status: Chronic Comment: On statin therapy (8) Systolic CHF with reduced left ventricular function, NYHA class 3 Status: Chronic Comment: He is stable on medication therapy for this. (9) Atrial fibrillation Status: Chronic Comment: Rate is controlled Qualifiers: Atrial fibrillation type: chronic Qualified Code: I48.2 - Chronic atrial fibrillation (10) Neurogenic bladder, flaccid Status: Acute Comment: This is as per Dr. Simpson. Remains a significant impediment to his life. (11) Presence of IVC filter Status: Chronic Comment: Noted (12) Acute kidney injury (nontraumatic) Status: Acute Comment: His creatinine is risen since admission and a slow steady fashion. I will recheck in the morning but we may need to be investigating this. Subjective 24 Hr Interval Summary Free Text/Dictation Patient receiving breathing treatment. He would like to not require being catheterized I have re-counseled him about the importance for this Constitutional: no complaints (Denies fever chills or sweats) Respiratory: no complaints (Denies shortness of breath) Cardiovascular: no complaints Gastrointestinal: no complaints Musculoskeletal: no complaints (Foot is better) Exam/Review of Systems Vital Signs Vitals Vital Signs Date Time Temp Pulse Resp B/P Pulse Ox O2 Delivery O2 Flow Rate FiO2 11/14/16 08:27 79 20 92 Nasal Cannula 3.0 11/14/16 07:10 97.3 114/62 Intake and Output 11/13/16 11/13/16 11/14/16 15:00 23:00 07:00 Intake Total 100 ml 890 ml 200 ml Output Total 1830 ml 450 ml Balance 100 ml -940 ml -250 ml Exam Constitutional: alert Respiratory: clear to auscultation, diminished breath sounds Cardiovascular: irregular rhythm, nl pulses Gastrointestinal: nl liver, spleen, non-tender, soft Extremities: other (Wound over lateral right foot/heel) Results Result Diagram: 11/14/16 0440 11/14/16 0440 Results 24 hrs Laboratory Tests Test 11/13/16 11:34 11/13/16 16:36 11/13/16 20:54 11/14/16 04:40 Bedside Glucose 102 153 155 Basophils # 0.1 Basophils % 0.4 Blood Urea Nitrogen 39 H Creatinine 1.62 H Digoxin Level 0.8 L Eosinophils # 0.1 Eosinophils % 0.7 Hematocrit 25.9 L Hemoglobin 8.1 L Lymphocytes # 1.3 Lymphocytes % 7.9 L Mean Corpuscular Hemoglobin 31.4 Mean Corpuscular Hemoglobin Concent 31.3 L Mean Corpuscular Volume 100.4 Mean Platelet Volume 9.6 Monocytes # 1.4 H Monocytes % 8.8 Neutrophils # 12.0 H Neutrophils % 76.2 Nucleated Red Blood Cells # 0.0 Nucleated Red Blood Cells % 0.0 Platelet Count 348 # Red Blood Count 2.58 L Red Cell Distribution Width 15.5 H White Blood Count 15.8 H Test 11/14/16 07:58 Bedside Glucose 114 Medications Medications Current Medications IV Flush (NS 10 ml) 10 ml PRN PRN IV IV PROTOCOL Last administered on 11/11/16 08:14; Admin Dose 10 ML; Start 09/28/16 at 14:00 Ondansetron HCl (Zofran Inj) 4 mg Q6H PRN IV NAUSEA AND/OR VOMITING; Start at 15:00 Nitroglycerin (Nitroglycerin (Sl Tab) 0.4 Mg) 1 tab Q5M PRN SL CHEST PAIN; Start 09/28/16 at 15:00 Acetaminophen (Tylenol Liquid) 650 mg Q6H PRN PO PAIN LEVEL 1-3 OR FEVER Last administered on 11/13/16 05:59; Admin Dose 650 MG; Start 09/28/16 at 15:00 Acetaminophen (Tylenol Tab) 650 mg Q6H PRN PO PAIN LEVEL 1-3 OR FEVER Last administered on 10/28/16 09:00; Admin Dose 650 MG; Start 09/28/16 at 15:00 Morphine Sulfate (morphine) 2 mg Q4H PRN IV PAIN LEVEL 7-10 Last administered on 09/29/16 02:30; Admin Dose 2 MG; Start 09/28/16 at 15:00 Lorazepam (Ativan) 1 mg Q2H PRN IV ANXIETY Last administered on 10/29/16 20:56 ; Admin Dose 1 MG; Start 09/28/16 at 15:00 Docusate Sodium (Colace) 100 mg Q12H PRN PO CONSTIPATION Last administered on 08:14; Admin Dose 100 MG; Start 09/28/16 at 15:00 Famotidine (Pepcid) 20 mg Q12 PO Last administered on 11/14/16 08:47; Admin Dose 20 MG; Start 09/28/16 at 21:00 Aspirin (Aspirin) 81 mg DAILY PO Last administered on 11/14/16 08:42; Admin Dose 81 MG; Start 09/29/16 at 09:00 Atorvastatin Calcium (Lipitor) 10 mg QHS PO Last administered on 11/13/16 20: 49; Admin Dose 10 MG; Start 09/28/16 at 21:00 Tiotropium [place] (Spiriva) 1 inh DAILY INH ; Start 09/28/16 at 16:00; Status Future Hold Mupirocin (Bactroban) 1 applic BID TOP Last administered on 11/14/16 08:58; Admin Dose 1 APPLIC; Start 09/30/16 at 09:00 Diagnostic Test (Pha) (Accucheck) 1 ea 02 XX Last administered on 11/03/16 02: 00; Admin Dose 1 EA; Start 10/05/16 at 02:00 Miscellaneous Information 1 ea NOTE XX ; Start 10/04/16 at 09:00 Glucose (Glutose) 15 gm Q15M PRN PO DECREASED GLUCOSE; Start 10/04/16 at 09:00 Glucose (Glutose) 22.5 gm Q15M PRN PO DECREASED GLUCOSE; Start 10/04/16 at 09: 00 Dextrose (D50w Syringe) 25 ml Q15M PRN IV DECREASED GLUCOSE; Start 10/04/16 at 09:00 Dextrose (D50w Syringe) 50 ml Q15M PRN IV DECREASED GLUCOSE; Start 10/04/16 at 09:00 Glucagon (Glucagen) 1 mg Q15M PRN IM DECREASED GLUCOSE; Start 10/04/16 at 09:00 Glucose (Glutose) 15 gm Q15M PRN BUCCAL DECREASED GLUCOSE; Start 10/04/16 at 09 :00 Metoprolol Tartrate (Lopressor) 5 mg Q4 PRN IV HR>110 Hold SBP<100; Start 10/05 at 19:30 Insulin Glargine (Lantus) 15 unit HS SC Last administered on 11/13/16 20:56; Admin Dose 15 UNIT; Start 10/10/16 at 21:00 Montelukast Sodium (Singulair) 10 mg HS PO Last administered on 11/13/16 20:49 ; Admin Dose 10 MG; Start 10/10/16 at 21:00 Theophylline (Benji-24) 300 mg QHS PO Last administered on 11/13/16 20:48; Admin Dose 300 MG; Start 10/10/16 at 21:00 Apixaban (Eliquis) 5 mg BID PO Last administered on 11/14/16 08:41; Admin Dose 5 MG; Start 10/10/16 at 21:00 Digoxin (Digoxin) 0.125 mg DAILY@13 PO Last administered on 11/10/16 13:35; Admin Dose 0.125 MG; Start 10/12/16 at 13:00; Status Future Hold Furosemide (Lasix) 40 mg AM PO Last administered on 11/14/16 08:41; Admin Dose 40 MG; Start 10/25/16 at 09:00 Amiodarone HCl (Cordarone) 200 mg BID PO Last administered on 11/14/16 08:42; Admin Dose 200 MG; Start 10/24/16 at 21:00 Metoprolol Succinate (Toprol Xl) 50 mg DAILY PO Last administered on 11/13/16 12:19; Admin Dose 50 MG; Start 10/28/16 at 09:00 Metoprolol Succinate 50 mg 50 mg HS PO Last administered on 11/12/16 20:16; Admin Dose 50 MG; Start 10/28/16 at 21:00 Colistimethate Sodium/Sodium Chloride (Coly-Mycin/NS) 100 ml @ 200 mls/hr Q12 IVPB Last administered on 11/14/16 08:40; Admin Dose 200 MLS/HR; Start at 21:00 Lisinopril (Zestril) 10 mg DAILY PO Last administered on 11/13/16 08:55; Admin Dose 10 MG; Start 11/06/16 at 09:00 Prednisone (Prednisone) 8 mg DAILY PO Last administered on 11/13/16 08:53; Admin Dose 8 MG; Start 11/07/16 at 09:00 Salmeterol Xinafoate/ Fluticasone (Advair 250/50 Diskus) 1 inh BID INH Last administered on 11/14/16 08:41; Admin Dose 1 INH; Start 11/07/16 at 09:00 Bethanechol Chloride (Urecholine) 10 mg TID PO Last administered on 11/14/16 08:48; Admin Dose 10 MG; Start 11/14/16 at 09:00 DEVON MUHAMMAD MD Nov 14, 2016 10:09
[2016-11-14] MEDS ORDERED: predniSONE 1 MG TAB PO SCH (10:30)
[2016-11-14] MEDS: predniSONE 5 MG TAB PO SCH (10:32)
[2016-11-14] MEDS: predniSONE 1 MG TAB PO SCH ×2 (10:33→21:19)
[2016-11-14] MEDS: METOPROLOL (XL) 25 MG TAB PO SCH ×2 (10:38→21:00)
--- NOTE | 2016-11-14 14:31 | PN ---
DATE: 11/14/2016 SUBJECTIVE: Urinary retention, bilateral hydronephrosis and urinary tract infection. The patient did have an indwelling Pruett catheter that was bothering him, so it was removed and we p ut him on intermittent catheterization. If he voids, he voids a very small amount, and his postvoid residual has been high, and therefore he needed to have in and out catheterization. The patient was last catheterized for 450 mL and another time for 400. The problem for this patient is that he himse lf may not be able to learn how to do the self-catheterization. His prostate is not large and he marie s retention, and with retention he does have bilateral hydronephrosis because of the retention, and therefore he needs to be on intermittent catheterization, and if that is not feasible, then he needs to have an indwelling Pruett catheter. So there would be a problem with him going home without any of these options done. Otherwise he probably should do better by going to a longterm and have a n indwelling Pruett catheter, or if they could do in and out catheterization for him every 6 hours, t hat would be better. Dictated By: JOSÉ DOS SANTOS/NANDO Conf#: [id number] DID#: [id number]
--- NOTE | 2016-11-14 15:38 | CONS ---
Date/Time of Note Date/Time of Note DATE: 11/14/16 TIME: 15:36 Assessment/Plan Assessment/Plan Chief Complaint/Hosp Course IMPRESSION: 1. Atrial fibrillation with rapid ventricular response.-improved HR and now back in SR by ecg 11/13 2. Congestive heart failure, systolic, acute on chronic. 3. History of cardiomyopathy with decreased left ventricular ejection fraction 20% to 25% per chart biopsy. 4. Shortness of breath. 5. Status post hypercapnic respiratory failure, status post extubation. 6. Chronic obstructive pulmonary disease. 7. Hypertension-borderline hotn today with anti-hypertensives held 8. Dyslipidemia. 9. History of automatic implantable cardioverter-defibrillator with possible discharge.-s/p interrogation with ICD shock for uncontrolled rapid AF. 10. Pneumonia. 11.Positive troponin-minimal with no sig uptrend 12.UTI-Klebs 14.Bacteremia-Klebs/persistent-most recent Bld cx's negative Recc -Tele -Continue asa/Eliquis -ACEI/BB as tolerated and thus may need to decrase doses but also likley component of overdiuresis -Contuinue to hold digoxin given elevated levels -Continue statin -Follow volume status and will hold lasix and follow volume status closely -Continue abx's and f/u cx data and -awaiting placement Problems: Consultation Date/Type/Reason Admit Date/Time Sep 28, 2016 at 14:41 Initial Consult Date 09/28/16 Type of Consultation: Cardiology Reason for Consultation AICD discharge/cmy Referring Provider: DEVON MUHAMMAD MD Exam/Review of Systems Vital Signs Vitals Vital Signs Date Time Temp Pulse Resp B/P Pulse Ox O2 Delivery O2 Flow Rate FiO2 11/14/16 14:05 80 20 93 Nasal Cannula 3.0 11/14/16 07:10 97.3 114/62 Intake and Output 11/13/16 11/13/16 11/14/16 15:00 23:00 07:00 Intake Total 100 ml 890 ml 200 ml Output Total 1830 ml 450 ml Balance 100 ml -940 ml -250 ml Exam Review of Systems: CONSTITUTIONAL: No fevers, chills. PULMONARY: No sob CARDIOVASCULAR: No chest pain/palpitations GASTROINTESTINAL: No nausea/vomiting. GENITOURINARY: Urinary retention MUSCULOSKELETAL: No myagias/arthalgias. PSYCHIATRIC: The patient denies depression. NEUROLOGIC: No weakness Constitutional: alert, oriented Psych: no complaints Head: normocephalic ENMT: mucosa pink and moist Neck: jvd (8 cm water), supple Respiratory: clear to auscultation Cardiovascular: regular rate and rhythm Gastrointestinal: non-tender, soft Musculoskeletal: muscle tone (normal) Extremities: edema (none) Neurological: other (No focalk deficits) Results Result Diagram: 11/14/16 0440 11/14/16 0440 Results 24 hrs Laboratory Tests Test 11/13/16 16:36 11/13/16 20:54 11/14/16 04:40 11/14/16 07:58 Bedside Glucose 153 155 114 Basophils # 0.1 Basophils % 0.4 Blood Urea Nitrogen 39 H Creatinine 1.62 H Digoxin Level 0.8 L Eosinophils # 0.1 Eosinophils % 0.7 Hematocrit 25.9 L Hemoglobin 8.1 L Lymphocytes # 1.3 Lymphocytes % 7.9 L Mean Corpuscular Hemoglobin 31.4 Mean Corpuscular Hemoglobin Concent 31.3 L Mean Corpuscular Volume 100.4 Mean Platelet Volume 9.6 Monocytes # 1.4 H Monocytes % 8.8 Neutrophils # 12.0 H Neutrophils % 76.2 Nucleated Red Blood Cells # 0.0 Nucleated Red Blood Cells % 0.0 Platelet Count 348 # Red Blood Count 2.58 L Red Cell Distribution Width 15.5 H White Blood Count 15.8 H Test 11/14/16 11:16 Bedside Glucose 132 Medications Medications Current Medications IV Flush (NS 10 ml) 10 ml PRN PRN IV IV PROTOCOL Last administered on 11/11/16 08:14; Admin Dose 10 ML; Start 09/28/16 at 14:00 Ondansetron HCl (Zofran Inj) 4 mg Q6H PRN IV NAUSEA AND/OR VOMITING; Start at 15:00 Nitroglycerin (Nitroglycerin (Sl Tab) 0.4 Mg) 1 tab Q5M PRN SL CHEST PAIN; Start 09/28/16 at 15:00 Acetaminophen (Tylenol Liquid) 650 mg Q6H PRN PO PAIN LEVEL 1-3 OR FEVER Last administered on 11/13/16 05:59; Admin Dose 650 MG; Start 09/28/16 at 15:00 Acetaminophen (Tylenol Tab) 650 mg Q6H PRN PO PAIN LEVEL 1-3 OR FEVER Last administered on 10/28/16 09:00; Admin Dose 650 MG; Start 09/28/16 at 15:00 Morphine Sulfate (morphine) 2 mg Q4H PRN IV PAIN LEVEL 7-10 Last administered on 09/29/16 02:30; Admin Dose 2 MG; Start 09/28/16 at 15:00 Lorazepam (Ativan) 1 mg Q2H PRN IV ANXIETY Last administered on 10/29/16 20:56 ; Admin Dose 1 MG; Start 09/28/16 at 15:00 Docusate Sodium (Colace) 100 mg Q12H PRN PO CONSTIPATION Last administered on 08:14; Admin Dose 100 MG; Start 09/28/16 at 15:00 Famotidine (Pepcid) 20 mg Q12 PO Last administered on 11/14/16 08:47; Admin Dose 20 MG; Start 09/28/16 at 21:00 Aspirin (Aspirin) 81 mg DAILY PO Last administered on 11/14/16 08:42; Admin Dose 81 MG; Start 09/29/16 at 09:00 Atorvastatin Calcium (Lipitor) 10 mg QHS PO Last administered on 11/13/16 20: 49; Admin Dose 10 MG; Start 09/28/16 at 21:00 Tiotropium [place] (Spiriva) 1 inh DAILY INH ; Start 09/28/16 at 16:00; Status Future Hold Mupirocin (Bactroban) 1 applic BID TOP Last administered on 11/14/16 08:58; Admin Dose 1 APPLIC; Start 09/30/16 at 09:00 Diagnostic Test (Pha) (Accucheck) 1 ea 02 XX Last administered on 11/03/16 02: 00; Admin Dose 1 EA; Start 10/05/16 at 02:00 Miscellaneous Information 1 ea NOTE XX ; Start 10/04/16 at 09:00 Glucose (Glutose) 15 gm Q15M PRN PO DECREASED GLUCOSE; Start 10/04/16 at 09:00 Glucose (Glutose) 22.5 gm Q15M PRN PO DECREASED GLUCOSE; Start 10/04/16 at 09: 00 Dextrose (D50w Syringe) 25 ml Q15M PRN IV DECREASED GLUCOSE; Start 10/04/16 at 09:00 Dextrose (D50w Syringe) 50 ml Q15M PRN IV DECREASED GLUCOSE; Start 10/04/16 at 09:00 Glucagon (Glucagen) 1 mg Q15M PRN IM DECREASED GLUCOSE; Start 10/04/16 at 09:00 Glucose (Glutose) 15 gm Q15M PRN BUCCAL DECREASED GLUCOSE; Start 10/04/16 at 09 :00 Metoprolol Tartrate (Lopressor) 5 mg Q4 PRN IV HR>110 Hold SBP<100; Start 10/05 at 19:30 Insulin Glargine (Lantus) 15 unit HS SC Last administered on 11/13/16 20:56; Admin Dose 15 UNIT; Start 10/10/16 at 21:00 Montelukast Sodium (Singulair) 10 mg HS PO Last administered on 11/13/16 20:49 ; Admin Dose 10 MG; Start 10/10/16 at 21:00 Theophylline (Benji-24) 300 mg QHS PO Last administered on 11/13/16 20:48; Admin Dose 300 MG; Start 10/10/16 at 21:00 Apixaban (Eliquis) 5 mg BID PO Last administered on 11/14/16 08:41; Admin Dose 5 MG; Start 10/10/16 at 21:00 Digoxin (Digoxin) 0.125 mg DAILY@13 PO Last administered on 11/10/16 13:35; Admin Dose 0.125 MG; Start 10/12/16 at 13:00; Status Future Hold Furosemide (Lasix) 40 mg AM PO Last administered on 11/14/16 08:41; Admin Dose 40 MG; Start 10/25/16 at 09:00 Amiodarone HCl (Cordarone) 200 mg BID PO Last administered on 11/14/16 08:42; Admin Dose 200 MG; Start 10/24/16 at 21:00 Metoprolol Succinate (Toprol Xl) 50 mg DAILY PO Last administered on 11/13/16 12:19; Admin Dose 50 MG; Start 10/28/16 at 09:00 Metoprolol Succinate 50 mg 50 mg HS PO Last administered on 11/12/16 20:16; Admin Dose 50 MG; Start 10/28/16 at 21:00 Colistimethate Sodium/Sodium Chloride (Coly-Mycin/NS) 100 ml @ 200 mls/hr Q12 IVPB Last administered on 11/14/16 08:40; Admin Dose 200 MLS/HR; Start at 21:00 Lisinopril (Zestril) 10 mg DAILY PO Last administered on 11/13/16 08:55; Admin Dose 10 MG; Start 11/06/16 at 09:00 Salmeterol Xinafoate/ Fluticasone (Advair 250/50 Diskus) 1 inh BID INH Last administered on 11/14/16 08:41; Admin Dose 1 INH; Start 11/07/16 at 09:00 Bethanechol Chloride (Urecholine) 10 mg TID PO Last administered on 11/14/16 12:10; Admin Dose 10 MG; Start 11/14/16 at 09:00 Prednisone (Prednisone) 5 mg DAILY PO Last administered on 11/14/16 10:32; Admin Dose 5 MG; Start 11/14/16 at 10:30 Prednisone (Prednisone) 2 mg DAILY PO Last administered on 11/14/16 10:33; Admin Dose 2 MG; Start 11/14/16 at 10:30 СВЕТЛАНА PADRON Nov 14, 2016 15:38
--- NOTE | 2016-11-14 18:18 | CONS ---
Date/Time of Note Date/Time of Note DATE: 11/14/16 TIME: 18:13 Assessment/Plan Assessment/Plan Chief Complaint/Hosp Course ID PROGRESS NOTE TOTAL ABX DAY #16 Colistin IV, s/p Fosfomycin x1 10/31 pm * => CRKP UTI is RESISTANT to all ABX 24H INTERVAL SUMMARY * Repeat urine (+)CRKP * WBC down today ------ PHYSICAL EXAMINATION: GENERAL: 66 yo - VSS, NAD HEENT: Unremarkable NECK: Supple, trachea midline. CHEST: Equal chest rise bilaterally HEART: Pulse RRR ABDOMEN: Soft EXTREMITIES: Warm SKIN: See photos ID ASSESSMENT: 66 yo M admit with: 1. Recurrent GNR Sepsis 10/08 #2 w/low grade temps, VSS, and marked leukocytosis => STARTED ON COLISTIN IV FOR CRKP UTI * 10/30/16 & 11/02/16 BCx (+)GNR => QUERY PICC LINE sepsis vs UROSEPSIS => Repeat BCx (-) 11/03 & 11/04 * s/p Sepsis on admission 09/28/16 w/(+)Lactic acidosis, leukocytosis, low grade temps => RESOLVED 2. Recurrent Complicated GNR MDRO = KP(CRKP) UTI * CRKP is RESISTANT to all ABX => Started on Colistin IV 3. Acute hypoxic respiratory failure => Stable ons low flow supplemental O2 3L via NC 4. s/p Aspiration Pneumonia= E.coli/ESBL RESPIRATORY CULTURE Final Organism 1 ESCHERICHIA COLI (ESBL) = QUANTITY SCANT GROWTH Organism 2 VERNON ALBICANS = QUANTITY 1+ 5. Acute exacerbation/Chronic COPD = PREDOMINANT LOBULAR EMPHYSEMA * =>s/p IV Solu-Medrol now on Prednisone PO Taper 6. Acute exacerbation CHF on chronic ischemic cardiomyopathy with ejection fraction 25%. 7. Paroxysmal Afib * Indwelling ICD/Pacer onboard 7. Essential HTN 8. Dyslipidemia. 9. s/p Oral Candidiasis 10. Foot injury s/p CAM boot (+ )MRSA Nares ->Bactroban = s/p Vanco IV INVASIVES: PACER, PIV (left hand) ABX ALLERGY: KNDA CURRENT ABX: TOTAL ABX DAY #16 Colistin IV, s/p Fosfomycin x1 10/31 pm ID RECOMMENDATIONS: 1. CRKP UTI is RESISTANT to all ABX =>Per Dinorah's note = plan is to continue Colistin over the weekend 2. Continue aspiration precautions post extubation/pulmonary toilet . . . Problems: Consultation Date/Type/Reason Admit Date/Time Sep 28, 2016 at 14:41 Initial Consult Date 09/28/16 Type of Consultation: ID Referring Provider: DEVON MUHAMMAD MD Exam/Review of Systems Vital Signs Vitals Vital Signs Date Time Temp Pulse Resp B/P Pulse Ox O2 Delivery O2 Flow Rate FiO2 11/14/16 15:41 3.0 11/14/16 14:05 80 20 93 Nasal Cannula 11/14/16 07:10 97.3 114/62 Intake and Output 11/13/16 11/13/16 11/14/16 15:00 23:00 07:00 Intake Total 100 ml 890 ml 200 ml Output Total 1830 ml 450 ml Balance 100 ml -940 ml -250 ml Results Result Diagram: 11/14/16 0440 11/14/16 0440 Results 24 hrs Laboratory Tests Test 11/13/16 20:54 11/14/16 04:40 11/14/16 07:58 11/14/16 11:16 Bedside Glucose 155 114 132 Basophils # 0.1 Basophils % 0.4 Blood Urea Nitrogen 39 H Creatinine 1.62 H Digoxin Level 0.8 L Eosinophils # 0.1 Eosinophils % 0.7 Hematocrit 25.9 L Hemoglobin 8.1 L Lymphocytes # 1.3 Lymphocytes % 7.9 L Mean Corpuscular Hemoglobin 31.4 Mean Corpuscular Hemoglobin Concent 31.3 L Mean Corpuscular Volume 100.4 Mean Platelet Volume 9.6 Monocytes # 1.4 H Monocytes % 8.8 Neutrophils # 12.0 H Neutrophils % 76.2 Nucleated Red Blood Cells # 0.0 Nucleated Red Blood Cells % 0.0 Platelet Count 348 # Red Blood Count 2.58 L Red Cell Distribution Width 15.5 H White Blood Count 15.8 H Test 11/14/16 16:46 Bedside Glucose 185 Medications Medications Current Medications IV Flush (NS 10 ml) 10 ml PRN PRN IV IV PROTOCOL Last administered on 11/11/16 08:14; Admin Dose 10 ML; Start 09/28/16 at 14:00 Ondansetron HCl (Zofran Inj) 4 mg Q6H PRN IV NAUSEA AND/OR VOMITING; Start at 15:00 Nitroglycerin (Nitroglycerin (Sl Tab) 0.4 Mg) 1 tab Q5M PRN SL CHEST PAIN; Start 09/28/16 at 15:00 Acetaminophen (Tylenol Liquid) 650 mg Q6H PRN PO PAIN LEVEL 1-3 OR FEVER Last administered on 11/13/16 05:59; Admin Dose 650 MG; Start 09/28/16 at 15:00 Acetaminophen (Tylenol Tab) 650 mg Q6H PRN PO PAIN LEVEL 1-3 OR FEVER Last administered on 10/28/16 09:00; Admin Dose 650 MG; Start 09/28/16 at 15:00 Morphine Sulfate (morphine) 2 mg Q4H PRN IV PAIN LEVEL 7-10 Last administered on 09/29/16 02:30; Admin Dose 2 MG; Start 09/28/16 at 15:00 Lorazepam (Ativan) 1 mg Q2H PRN IV ANXIETY Last administered on 10/29/16 20:56 ; Admin Dose 1 MG; Start 09/28/16 at 15:00 Docusate Sodium (Colace) 100 mg Q12H PRN PO CONSTIPATION Last administered on 08:14; Admin Dose 100 MG; Start 09/28/16 at 15:00 Famotidine (Pepcid) 20 mg Q12 PO Last administered on 11/14/16 08:47; Admin Dose 20 MG; Start 09/28/16 at 21:00 Aspirin (Aspirin) 81 mg DAILY PO Last administered on 11/14/16 08:42; Admin Dose 81 MG; Start 09/29/16 at 09:00 Atorvastatin Calcium (Lipitor) 10 mg QHS PO Last administered on 11/13/16 20: 49; Admin Dose 10 MG; Start 09/28/16 at 21:00 Tiotropium [place] (Spiriva) 1 inh DAILY INH ; Start 09/28/16 at 16:00; Status Future Hold Mupirocin (Bactroban) 1 applic BID TOP Last administered on 11/14/16 08:58; Admin Dose 1 APPLIC; Start 09/30/16 at 09:00 Diagnostic Test (Pha) (Accucheck) 1 ea 02 XX Last administered on 11/03/16 02: 00; Admin Dose 1 EA; Start 10/05/16 at 02:00 Miscellaneous Information 1 ea NOTE XX ; Start 10/04/16 at 09:00 Glucose (Glutose) 15 gm Q15M PRN PO DECREASED GLUCOSE; Start 10/04/16 at 09:00 Glucose (Glutose) 22.5 gm Q15M PRN PO DECREASED GLUCOSE; Start 10/04/16 at 09: 00 Dextrose (D50w Syringe) 25 ml Q15M PRN IV DECREASED GLUCOSE; Start 10/04/16 at 09:00 Dextrose (D50w Syringe) 50 ml Q15M PRN IV DECREASED GLUCOSE; Start 10/04/16 at 09:00 Glucagon (Glucagen) 1 mg Q15M PRN IM DECREASED GLUCOSE; Start 10/04/16 at 09:00 Glucose (Glutose) 15 gm Q15M PRN BUCCAL DECREASED GLUCOSE; Start 10/04/16 at 09 :00 Metoprolol Tartrate (Lopressor) 5 mg Q4 PRN IV HR>110 Hold SBP<100; Start 10/05 at 19:30 Insulin Glargine (Lantus) 15 unit HS SC Last administered on 11/13/16 20:56; Admin Dose 15 UNIT; Start 10/10/16 at 21:00 Montelukast Sodium (Singulair) 10 mg HS PO Last administered on 11/13/16 20:49 ; Admin Dose 10 MG; Start 10/10/16 at 21:00 Theophylline (Benji-24) 300 mg QHS PO Last administered on 11/13/16 20:48; Admin Dose 300 MG; Start 10/10/16 at 21:00 Apixaban (Eliquis) 5 mg BID PO Last administered on 11/14/16 08:41; Admin Dose 5 MG; Start 10/10/16 at 21:00 Digoxin (Digoxin) 0.125 mg DAILY@13 PO Last administered on 11/10/16 13:35; Admin Dose 0.125 MG; Start 10/12/16 at 13:00; Status Future Hold Furosemide (Lasix) 40 mg AM PO Last administered on 11/14/16 08:41; Admin Dose 40 MG; Start 10/25/16 at 09:00; Status Future Hold Amiodarone HCl (Cordarone) 200 mg BID PO Last administered on 11/14/16 08:42; Admin Dose 200 MG; Start 10/24/16 at 21:00 Metoprolol Succinate (Toprol Xl) 50 mg DAILY PO Last administered on 11/13/16 12:19; Admin Dose 50 MG; Start 10/28/16 at 09:00 Metoprolol Succinate 50 mg 50 mg HS PO Last administered on 11/12/16 20:16; Admin Dose 50 MG; Start 10/28/16 at 21:00 Colistimethate Sodium/Sodium Chloride (Coly-Mycin/NS) 100 ml @ 200 mls/hr Q12 IVPB Last administered on 11/14/16 08:40; Admin Dose 200 MLS/HR; Start at 21:00 Lisinopril (Zestril) 10 mg DAILY PO Last administered on 11/13/16 08:55; Admin Dose 10 MG; Start 11/06/16 at 09:00 Salmeterol Xinafoate/ Fluticasone (Advair 250/50 Diskus) 1 inh BID INH Last administered on 11/14/16 08:41; Admin Dose 1 INH; Start 11/07/16 at 09:00 Bethanechol Chloride (Urecholine) 10 mg TID PO Last administered on 11/14/16 12:10; Admin Dose 10 MG; Start 11/14/16 at 09:00 Prednisone (Prednisone) 5 mg DAILY PO Last administered on 11/14/16 10:32; Admin Dose 5 MG; Start 11/14/16 at 10:30 Prednisone (Prednisone) 2 mg DAILY PO Last administered on 11/14/16 10:33; Admin Dose 2 MG; Start 11/14/16 at 10:30 UNIQUE KIRKLAND NP Nov 14, 2016 18:18
[2016-11-14 20:26] VITALS: BP 104/53; RESP 20
[2016-11-14] MEDS: THEOPHYLLINE (SR) 300 MG CAP PO SCH (21:19)
[2016-11-14] MEDS: ATORVASTATIN 10 MG TAB PO SCH (21:20)
[2016-11-14] MEDS: MONTELUKAST 10 MG TAB PO SCH (21:20)
[2016-11-14] MEDS: INSULIN GLARGINE [LANtus] 3 ML PEN SC SCH (21:22)
[2016-11-15] MEDS: SALMETEROL/FLUTICASONE 250/50 INHA INH SCH ×3 (00:04→22:19)
[2016-11-15] MEDS: ALBUTEROL/IPRATROPIUM (NEB) 3 ML AMP HHN SCH ×4 (01:49→20:59)
[2016-11-15] MEDS: ACCU-CHEK XX SCH (03:00)
[2016-11-15 07:05] VITALS: BP 121/72; RESP 17
[2016-11-15] MEDS: INSULIN ASPART [NOVOLOG] 3 ML PEN SC SCH ×7 (08:00→22:19)
[2016-11-15 08:29] LABS: POTASSIUM 4.7 mmol/L (3.5-5.1)
[2016-11-15 08:31] LABS: CREATININE 1.39 mg/dl (0.61-1.24)
[2016-11-15 08:32] LABS: CALCIUM 9.4 mg/dl (8.4-10.2)
--- NOTE | 2016-11-15 09:31 | PN ---
Date/Time of Note Date/Time of Note DATE: 11/15/16 TIME: 09:27 Assessment/Plan VTE Prophylaxis VTE Prophylaxis Intervention: other Lines/Catheters IV [facility]from [facility] Urinary Cath still in place: No Assessment/Plan Chief Complaint/Hosp Course Hospital day 49 Problems: (1) COPD with acute exacerbation Status: Chronic Comment: He is stable on present regimen and tolerated the reduction in oral steroid dosing. Continue the current plan of care. Please note ultimately the goal will be to have him on prednisone 4 mg in the morning 1 mg the afternoon when he is at that point and breathing is stable he be maintained on that level of prednisone for 6 months and then I would then be slowly tapered down to 1 mg per month after that to off (2) Diabetes mellitus type 2 in nonobese Status: Chronic Comment: Well-controlled on current regimen with a reduction steroids back down slightly on the dosage of insulin (3) Klebsiella cystitis Status: Acute Comment: As per infectious diseases. This is complicated by the atonic bladder also see Dr. Simpson's note (4) Hypertension Status: Chronic Comment: Well-controlled Qualifiers: Hypertension type: essential hypertension Qualified Code: I10 - Essential hypertension (5) Hyperlipidemia associated with type 2 diabetes mellitus Status: Chronic Comment: On statin therapy (6) Systolic CHF with reduced left ventricular function, NYHA class 3 Status: Chronic Comment: Well-controlled on combination medications (7) Atrial fibrillation Status: Chronic Comment: Rate control Qualifiers: Atrial fibrillation type: chronic Qualified Code: I48.2 - Chronic atrial fibrillation (8) Neurogenic bladder, flaccid Status: Acute Comment: Please see the note of Dr. Simpson. Is my significant concern this patient has not the capacity to understand or manage self-catheterization. He would therefore will need to be discharged some type of place where this can be managed Subjective 24 Hr Interval Summary Free Text/Dictation He reports he is feeling well is wondering when he will be able to go home. Constitutional: no complaints (Denies fever chills or sweats) Respiratory: no complaints (Specifically denies any respiratory issues) Cardiovascular: no complaints Gastrointestinal: no complaints Genitourinary: no complaints (Please note the patient states he is voiding fine however if you read the nursing notes he will have a different story) Exam/Review of Systems Vital Signs Vitals Vital Signs Date Time Temp Pulse Resp B/P Pulse Ox O2 Delivery O2 Flow Rate FiO2 11/15/16 07:05 98.1 72 17 121/72 91 11/15/16 01:55 3.0 11/15/16 01:53 Nasal Cannula Intake and Output 11/14/16 11/14/16 11/15/16 15:00 23:00 07:00 Intake Total 100 ml 1000 ml 960 ml Output Total 400 ml 600 ml Balance 100 ml 600 ml 360 ml Exam Constitutional: alert, oriented Respiratory: clear to auscultation, normal air movement Cardiovascular: nl pulses, regular rate and rhythm Gastrointestinal: nl liver, spleen, non-tender, soft Results Result Diagram: 11/14/16 0440 11/15/16 0750 Results 24 hrs Laboratory Tests Test 11/14/16 11:16 11/14/16 16:46 11/14/16 21:13 11/15/16 07:45 Bedside Glucose 132 185 170 108 Test 11/15/16 07:50 Anion Gap 13 Blood Urea Nitrogen 38 H Calcium Level 9.4 Carbon Dioxide Level 33 H Chloride Level 95 L Creatinine 1.39 H Glucose Level 98 Potassium Level 4.7 Sodium Level 136 Medications Medications Current Medications IV Flush (NS 10 ml) 10 ml PRN PRN IV IV PROTOCOL Last administered on 11/11/16 08:14; Admin Dose 10 ML; Start 09/28/16 at 14:00 Ondansetron HCl (Zofran Inj) 4 mg Q6H PRN IV NAUSEA AND/OR VOMITING; Start at 15:00 Nitroglycerin (Nitroglycerin (Sl Tab) 0.4 Mg) 1 tab Q5M PRN SL CHEST PAIN; Start 09/28/16 at 15:00 Acetaminophen (Tylenol Liquid) 650 mg Q6H PRN PO PAIN LEVEL 1-3 OR FEVER Last administered on 11/13/16 05:59; Admin Dose 650 MG; Start 09/28/16 at 15:00 Acetaminophen (Tylenol Tab) 650 mg Q6H PRN PO PAIN LEVEL 1-3 OR FEVER Last administered on 10/28/16 09:00; Admin Dose 650 MG; Start 09/28/16 at 15:00 Morphine Sulfate (morphine) 2 mg Q4H PRN IV PAIN LEVEL 7-10 Last administered on 09/29/16 02:30; Admin Dose 2 MG; Start 09/28/16 at 15:00 Lorazepam (Ativan) 1 mg Q2H PRN IV ANXIETY Last administered on 10/29/16 20:56 ; Admin Dose 1 MG; Start 09/28/16 at 15:00 Docusate Sodium (Colace) 100 mg Q12H PRN PO CONSTIPATION Last administered on 08:14; Admin Dose 100 MG; Start 09/28/16 at 15:00 Famotidine (Pepcid) 20 mg Q12 PO Last administered on 11/14/16 21:20; Admin Dose 20 MG; Start 09/28/16 at 21:00 Aspirin (Aspirin) 81 mg DAILY PO Last administered on 11/14/16 08:42; Admin Dose 81 MG; Start 09/29/16 at 09:00 Atorvastatin Calcium (Lipitor) 10 mg QHS PO Last administered on 11/14/16 21: 20; Admin Dose 10 MG; Start 09/28/16 at 21:00 Tiotropium [place] (Spiriva) 1 inh DAILY INH ; Start 09/28/16 at 16:00; Status Future Hold Mupirocin (Bactroban) 1 applic BID TOP Last administered on 11/14/16 21:21; Admin Dose 1 APPLIC; Start 09/30/16 at 09:00 Diagnostic Test (Pha) (Accucheck) 1 ea 02 XX Last administered on 11/03/16 02: 00; Admin Dose 1 EA; Start 10/05/16 at 02:00 Miscellaneous Information 1 ea NOTE XX ; Start 10/04/16 at 09:00 Glucose (Glutose) 15 gm Q15M PRN PO DECREASED GLUCOSE; Start 10/04/16 at 09:00 Glucose (Glutose) 22.5 gm Q15M PRN PO DECREASED GLUCOSE; Start 10/04/16 at 09: 00 Dextrose (D50w Syringe) 25 ml Q15M PRN IV DECREASED GLUCOSE; Start 10/04/16 at 09:00 Dextrose (D50w Syringe) 50 ml Q15M PRN IV DECREASED GLUCOSE; Start 10/04/16 at 09:00 Glucagon (Glucagen) 1 mg Q15M PRN IM DECREASED GLUCOSE; Start 10/04/16 at 09:00 Glucose (Glutose) 15 gm Q15M PRN BUCCAL DECREASED GLUCOSE; Start 10/04/16 at 09 :00 Metoprolol Tartrate (Lopressor) 5 mg Q4 PRN IV HR>110 Hold SBP<100; Start 10/05 at 19:30 Montelukast Sodium (Singulair) 10 mg HS PO Last administered on 11/14/16 21:20 ; Admin Dose 10 MG; Start 10/10/16 at 21:00 Theophylline (Benji-24) 300 mg QHS PO Last administered on 11/14/16 21:19; Admin Dose 300 MG; Start 10/10/16 at 21:00 Apixaban (Eliquis) 5 mg BID PO Last administered on 11/14/16 21:21; Admin Dose 5 MG; Start 10/10/16 at 21:00 Digoxin (Digoxin) 0.125 mg DAILY@13 PO Last administered on 11/10/16 13:35; Admin Dose 0.125 MG; Start 10/12/16 at 13:00; Status Future Hold Furosemide (Lasix) 40 mg AM PO Last administered on 11/14/16 08:41; Admin Dose 40 MG; Start 10/25/16 at 09:00; Status Future Hold Amiodarone HCl (Cordarone) 200 mg BID PO Last administered on 11/14/16 21:20; Admin Dose 200 MG; Start 10/24/16 at 21:00 Metoprolol Succinate (Toprol Xl) 50 mg DAILY PO Last administered on 11/13/16 12:19; Admin Dose 50 MG; Start 10/28/16 at 09:00 Metoprolol Succinate 50 mg 50 mg HS PO Last administered on 11/12/16 20:16; Admin Dose 50 MG; Start 10/28/16 at 21:00 Colistimethate Sodium/Sodium Chloride (Coly-Mycin/NS) 100 ml @ 200 mls/hr Q12 IVPB Last administered on 11/14/16 21:21; Admin Dose 200 MLS/HR; Start at 21:00 Lisinopril (Zestril) 10 mg DAILY PO Last administered on 11/13/16 08:55; Admin Dose 10 MG; Start 11/06/16 at 09:00 Salmeterol Xinafoate/ Fluticasone (Advair 250/50 Diskus) 1 inh BID INH Last administered on 11/15/16 00:04; Admin Dose 1 INH; Start 11/07/16 at 09:00 Bethanechol Chloride (Urecholine) 10 mg TID PO Last administered on 11/14/16 21:20; Admin Dose 10 MG; Start 11/14/16 at 09:00 Prednisone (Prednisone) 5 mg DAILY PO Last administered on 11/14/16 10:32; Admin Dose 5 MG; Start 11/14/16 at 10:30 Prednisone (Prednisone) 2 mg DAILY PO Last administered on 11/14/16 10:33; Admin Dose 2 MG; Start 11/14/16 at 10:30 Insulin Glargine (Lantus) 14 unit HS SC ; Start 11/15/16 at 21:00 DEVON MUHAMMAD MD Nov 15, 2016 09:31
[2016-11-15] MEDS: ASPIRIN 81 MG TAB PO SCH (09:41)
[2016-11-15] MEDS: FAMOTIDINE 20 MG TAB PO SCH ×2 (09:42→22:18)
[2016-11-15] MEDS: AMIODARONE 200 MG TAB PO SCH ×2 (09:42→22:19)
[2016-11-15] MEDS: APIXABAN 5 MG TABLET PO SCH ×2 (09:42→22:17)
[2016-11-15] MEDS: predniSONE 1 MG TAB PO SCH ×2 (09:44→17:23)
[2016-11-15] MEDS: predniSONE 5 MG TAB PO SCH (09:45)
[2016-11-15] MEDS: METOPROLOL (XL) 25 MG TAB PO SCH ×2 (09:46→22:19)
[2016-11-15] MEDS: LISINOPRIL 10 MG TAB PO SCH (09:46)
[2016-11-15] MEDS: BETHANECHOL 10 MG TAB PO SCH ×3 (09:46→22:18)
[2016-11-15] MEDS: MUPIROCIN 2% 22 GM OINT TOP SCH ×2 (09:47→22:20)
[2016-11-15] MEDS: COLISTIMETHATE 75 MG in SOD CHLORIDE 0.9% 100 ML IVPB SCH ×2 (10:04→22:19)
--- NOTE | 2016-11-15 15:09 | CONS ---
Date/Time of Note Date/Time of Note DATE: 11/15/16 TIME: 15:07 Assessment/Plan Assessment/Plan Chief Complaint/Hosp Course IMPRESSION: 1. Atrial fibrillation with rapid ventricular response.-improved HR and now back in SR by ecg 11/13 2. Congestive heart failure, systolic, acute on chronic. 3. History of cardiomyopathy with decreased left ventricular ejection fraction 20% to 25% per chart biopsy. 4. Shortness of breath. 5. Status post hypercapnic respiratory failure, status post extubation. 6. Chronic obstructive pulmonary disease. 7. Hypertension-borderline hotn today with anti-hypertensives held 8. Dyslipidemia. 9. History of automatic implantable cardioverter-defibrillator with possible discharge.-s/p interrogation with ICD shock for uncontrolled rapid AF. 10. Pneumonia. 11.Positive troponin-minimal with no sig uptrend 12.UTI-Klebs 14.Bacteremia-Klebs/persistent-most recent Bld cx's negative 15.ARF-slowly improving with holding of lasix Recc -Tele -Continue asa/Eliquis -ACEI/BB as tolerated and thus may need to decrease doses but also likley component of overdiuresis -Contuinue to hold digoxin given elevated levels -Continue statin -Follow volume status and will continue hold lasix and follow volume status/office coordinator receptionist closely -Continue abx's and f/u cx data and -awaiting placement Problems: Consultation Date/Type/Reason Admit Date/Time Sep 28, 2016 at 14:41 Initial Consult Date 09/28/16 Type of Consultation: Cardiology Reason for Consultation AICD discharge/CMY/AF Referring Provider: DEVON MUHAMMAD MD Exam/Review of Systems Vital Signs Vitals Vital Signs Date Time Temp Pulse Resp B/P Pulse Ox O2 Delivery O2 Flow Rate FiO2 11/15/16 12:44 78 20 93 Nasal Cannula 2.0 11/15/16 07:05 98.1 121/72 Intake and Output 11/14/16 11/14/16 11/15/16 15:00 23:00 07:00 Intake Total 100 ml 1000 ml 960 ml Output Total 400 ml 600 ml Balance 100 ml 600 ml 360 ml Exam Review of Systems: CONSTITUTIONAL: No fevers, chills. PULMONARY: No sob CARDIOVASCULAR: No chest pain/palpitations GASTROINTESTINAL: No nausea/vomiting. GENITOURINARY: No hematuria/dysuria. MUSCULOSKELETAL: No myagias/arthalgias. PSYCHIATRIC: The patient denies depression. NEUROLOGIC: No weakness Constitutional: alert, oriented Psych: no complaints Head: normocephalic ENMT: mucosa pink and moist Neck: jvd (9 cm water), supple Respiratory: diminished breath sounds Cardiovascular: regular rate and rhythm Gastrointestinal: non-tender, soft Musculoskeletal: muscle tone (normal) Extremities: edema (none) Neurological: other (No focal deficits) Results Result Diagram: 11/14/16 0440 11/15/16 0750 Results 24 hrs Laboratory Tests Test 11/14/16 16:46 11/14/16 21:13 11/15/16 07:45 11/15/16 07:50 Bedside Glucose 185 170 108 Anion Gap 13 Blood Urea Nitrogen 38 H Calcium Level 9.4 Carbon Dioxide Level 33 H Chloride Level 95 L Creatinine 1.39 H Glucose Level 98 Potassium Level 4.7 Sodium Level 136 Test 11/15/16 11:33 Bedside Glucose 124 Medications Medications Current Medications IV Flush (NS 10 ml) 10 ml PRN PRN IV IV PROTOCOL Last administered on 11/11/16 08:14; Admin Dose 10 ML; Start 09/28/16 at 14:00 Ondansetron HCl (Zofran Inj) 4 mg Q6H PRN IV NAUSEA AND/OR VOMITING; Start at 15:00 Nitroglycerin (Nitroglycerin (Sl Tab) 0.4 Mg) 1 tab Q5M PRN SL CHEST PAIN; Start 09/28/16 at 15:00 Acetaminophen (Tylenol Liquid) 650 mg Q6H PRN PO PAIN LEVEL 1-3 OR FEVER Last administered on 11/13/16 05:59; Admin Dose 650 MG; Start 09/28/16 at 15:00 Acetaminophen (Tylenol Tab) 650 mg Q6H PRN PO PAIN LEVEL 1-3 OR FEVER Last administered on 10/28/16 09:00; Admin Dose 650 MG; Start 09/28/16 at 15:00 Morphine Sulfate (morphine) 2 mg Q4H PRN IV PAIN LEVEL 7-10 Last administered on 09/29/16 02:30; Admin Dose 2 MG; Start 09/28/16 at 15:00 Lorazepam (Ativan) 1 mg Q2H PRN IV ANXIETY Last administered on 10/29/16 20:56 ; Admin Dose 1 MG; Start 09/28/16 at 15:00 Docusate Sodium (Colace) 100 mg Q12H PRN PO CONSTIPATION Last administered on 08:14; Admin Dose 100 MG; Start 09/28/16 at 15:00 Famotidine (Pepcid) 20 mg Q12 PO Last administered on 11/15/16 09:42; Admin Dose 20 MG; Start 09/28/16 at 21:00 Aspirin (Aspirin) 81 mg DAILY PO Last administered on 11/15/16 09:41; Admin Dose 81 MG; Start 09/29/16 at 09:00 Atorvastatin Calcium (Lipitor) 10 mg QHS PO Last administered on 11/14/16 21: 20; Admin Dose 10 MG; Start 09/28/16 at 21:00 Tiotropium [place] (Spiriva) 1 inh DAILY INH ; Start 09/28/16 at 16:00; Status Future Hold Mupirocin (Bactroban) 1 applic BID TOP Last administered on 11/15/16 09:47; Admin Dose 1 APPLIC; Start 09/30/16 at 09:00 Diagnostic Test (Pha) (Accucheck) 1 ea 02 XX Last administered on 11/03/16 02: 00; Admin Dose 1 EA; Start 10/05/16 at 02:00 Miscellaneous Information 1 ea NOTE XX ; Start 10/04/16 at 09:00 Glucose (Glutose) 15 gm Q15M PRN PO DECREASED GLUCOSE; Start 10/04/16 at 09:00 Glucose (Glutose) 22.5 gm Q15M PRN PO DECREASED GLUCOSE; Start 10/04/16 at 09: 00 Dextrose (D50w Syringe) 25 ml Q15M PRN IV DECREASED GLUCOSE; Start 10/04/16 at 09:00 Dextrose (D50w Syringe) 50 ml Q15M PRN IV DECREASED GLUCOSE; Start 10/04/16 at 09:00 Glucagon (Glucagen) 1 mg Q15M PRN IM DECREASED GLUCOSE; Start 10/04/16 at 09:00 Glucose (Glutose) 15 gm Q15M PRN BUCCAL DECREASED GLUCOSE; Start 10/04/16 at 09 :00 Metoprolol Tartrate (Lopressor) 5 mg Q4 PRN IV HR>110 Hold SBP<100; Start 10/05 at 19:30 Montelukast Sodium (Singulair) 10 mg HS PO Last administered on 11/14/16 21:20 ; Admin Dose 10 MG; Start 10/10/16 at 21:00 Theophylline (Benji-24) 300 mg QHS PO Last administered on 11/14/16 21:19; Admin Dose 300 MG; Start 10/10/16 at 21:00 Apixaban (Eliquis) 5 mg BID PO Last administered on 11/15/16 09:42; Admin Dose 5 MG; Start 10/10/16 at 21:00 Digoxin (Digoxin) 0.125 mg DAILY@13 PO Last administered on 11/10/16 13:35; Admin Dose 0.125 MG; Start 10/12/16 at 13:00; Status Future Hold Furosemide (Lasix) 40 mg AM PO Last administered on 11/14/16 08:41; Admin Dose 40 MG; Start 10/25/16 at 09:00; Status Future Hold Amiodarone HCl (Cordarone) 200 mg BID PO Last administered on 11/15/16 09:42; Admin Dose 200 MG; Start 10/24/16 at 21:00 Metoprolol Succinate (Toprol Xl) 50 mg DAILY PO Last administered on 11/15/16 09:46; Admin Dose 50 MG; Start 10/28/16 at 09:00 Metoprolol Succinate 50 mg 50 mg HS PO Last administered on 11/12/16 20:16; Admin Dose 50 MG; Start 10/28/16 at 21:00 Colistimethate Sodium/Sodium Chloride (Coly-Mycin/NS) 100 ml @ 200 mls/hr Q12 IVPB Last administered on 11/15/16 10:04; Admin Dose 200 MLS/HR; Start at 21:00 Lisinopril (Zestril) 10 mg DAILY PO Last administered on 11/15/16 09:46; Admin Dose 10 MG; Start 11/06/16 at 09:00 Salmeterol Xinafoate/ Fluticasone (Advair 250/50 Diskus) 1 inh BID INH Last administered on 11/15/16 09:41; Admin Dose 1 INH; Start 11/07/16 at 09:00 Bethanechol Chloride (Urecholine) 10 mg TID PO Last administered on 11/15/16 12:20; Admin Dose 10 MG; Start 11/14/16 at 09:00 Prednisone (Prednisone) 5 mg DAILY PO Last administered on 11/15/16 09:45; Admin Dose 5 MG; Start 11/14/16 at 10:30 Prednisone (Prednisone) 2 mg DAILY PO Last administered on 11/15/16 09:44; Admin Dose 2 MG; Start 11/14/16 at 10:30 Insulin Glargine (Lantus) 14 unit HS SC ; Start 11/15/16 at 21:00 СВЕТЛАНА PADRON Nov 15, 2016 15:09
--- NOTE | 2016-11-15 19:05 | CONS ---
Date/Time of Note Date/Time of Note DATE: 11/15/16 TIME: 19:03 Assessment/Plan Assessment/Plan Chief Complaint/Hosp Course ID PROGRESS NOTE TOTAL ABX DAY #17 Colistin IV, s/p Fosfomycin x1 10/31 pm * => CRKP UTI is RESISTANT to all ABX 24H INTERVAL SUMMARY * Awake, alert, responsive "Happy Thanksgiving -- too bad I have to spend it in the hospital I wish I were at home" * OOB->Chair, NAD, denies F/C/N/V/D/SOB/CP * Remains on Colistin per Repeat urine (+)CRKP * WBC down today ------ PHYSICAL EXAMINATION: GENERAL: 66 yo - VSS, NAD HEENT: Unremarkable NECK: Supple, trachea midline. CHEST: Equal chest rise bilaterally HEART: Pulse RRR ABDOMEN: Soft EXTREMITIES: Warm SKIN: See photos ID ASSESSMENT: 66 yo M admit with: 1. Recurrent GNR Sepsis 2/ #2 w/low grade temps, VSS, and marked leukocytosis => STARTED ON COLISTIN IV FOR CRKP UTI * 10/30/16 & 11/02/16 BCx (+)GNR => QUERY PICC LINE sepsis vs UROSEPSIS => Repeat BCx (-) 11/03 & 11/04 * s/p Sepsis on admission 09/28/16 w/(+)Lactic acidosis, leukocytosis, low grade temps => RESOLVED 2. Recurrent Complicated GNR MDRO = KP(CRKP) UTI * CRKP is RESISTANT to all ABX => Started on Colistin IV 3. Acute hypoxic respiratory failure => Stable ons low flow supplemental O2 3L via NC 4. s/p Aspiration Pneumonia= E.coli/ESBL RESPIRATORY CULTURE Final Organism 1 ESCHERICHIA COLI (ESBL) = QUANTITY SCANT GROWTH Organism 2 VERNON ALBICANS = QUANTITY 1+ 5. Acute exacerbation/Chronic COPD = PREDOMINANT LOBULAR EMPHYSEMA * =>s/p IV Solu-Medrol now on Prednisone PO Taper 6. Acute exacerbation CHF on chronic ischemic cardiomyopathy with ejection fraction 25%. 7. Paroxysmal Afib * Indwelling ICD/Pacer onboard 7. Essential HTN 8. Dyslipidemia. 9. s/p Oral Candidiasis 10. Foot injury s/p CAM boot (+ )MRSA Nares ->Bactroban = s/p Vanco IV INVASIVES: PACER, PIV (left hand) ABX ALLERGY: KNDA CURRENT ABX: TOTAL ABX DAY #17 Colistin IV, s/p Fosfomycin x1 10/31 pm ID RECOMMENDATIONS: 1. CRKP UTI is RESISTANT to all ABX =>Per Dinorah's note = plan is to continue Colistin over the weekend 2. Continue aspiration precautions post extubation/pulmonary toilet . . . Problems: Consultation Date/Type/Reason Admit Date/Time Sep 28, 2016 at 14:41 Initial Consult Date 09/28/16 Type of Consultation: ID Referring Provider: DEVON MUHAMMAD MD Exam/Review of Systems Vital Signs Vitals Vital Signs Date Time Temp Pulse Resp B/P Pulse Ox O2 Delivery O2 Flow Rate FiO2 11/15/16 16:49 2.0 11/15/16 12:44 78 20 93 Nasal Cannula 11/15/16 07:05 98.1 121/72 Intake and Output 11/14/16 11/14/16 11/15/16 15:00 23:00 07:00 Intake Total 100 ml 1000 ml 960 ml Output Total 400 ml 600 ml Balance 100 ml 600 ml 360 ml Results Result Diagram: 11/14/16 0440 11/15/16 0750 Results 24 hrs Laboratory Tests Test 11/14/16 21:13 11/15/16 07:45 11/15/16 07:50 11/15/16 11:33 Bedside Glucose 170 108 124 Anion Gap 13 Blood Urea Nitrogen 38 H Calcium Level 9.4 Carbon Dioxide Level 33 H Chloride Level 95 L Creatinine 1.39 H Glucose Level 98 Potassium Level 4.7 Sodium Level 136 Test 11/15/16 16:51 Bedside Glucose 147 Medications Medications Current Medications IV Flush (NS 10 ml) 10 ml PRN PRN IV IV PROTOCOL Last administered on 11/11/16 08:14; Admin Dose 10 ML; Start 09/28/16 at 14:00 Ondansetron HCl (Zofran Inj) 4 mg Q6H PRN IV NAUSEA AND/OR VOMITING; Start at 15:00 Nitroglycerin (Nitroglycerin (Sl Tab) 0.4 Mg) 1 tab Q5M PRN SL CHEST PAIN; Start 09/28/16 at 15:00 Acetaminophen (Tylenol Liquid) 650 mg Q6H PRN PO PAIN LEVEL 1-3 OR FEVER Last administered on 11/13/16 05:59; Admin Dose 650 MG; Start 09/28/16 at 15:00 Acetaminophen (Tylenol Tab) 650 mg Q6H PRN PO PAIN LEVEL 1-3 OR FEVER Last administered on 10/28/16 09:00; Admin Dose 650 MG; Start 09/28/16 at 15:00 Morphine Sulfate (morphine) 2 mg Q4H PRN IV PAIN LEVEL 7-10 Last administered on 09/29/16 02:30; Admin Dose 2 MG; Start 09/28/16 at 15:00 Lorazepam (Ativan) 1 mg Q2H PRN IV ANXIETY Last administered on 10/29/16 20:56 ; Admin Dose 1 MG; Start 09/28/16 at 15:00 Docusate Sodium (Colace) 100 mg Q12H PRN PO CONSTIPATION Last administered on 08:14; Admin Dose 100 MG; Start 09/28/16 at 15:00 Famotidine (Pepcid) 20 mg Q12 PO Last administered on 11/15/16 09:42; Admin Dose 20 MG; Start 09/28/16 at 21:00 Aspirin (Aspirin) 81 mg DAILY PO Last administered on 11/15/16 09:41; Admin Dose 81 MG; Start 09/29/16 at 09:00 Atorvastatin Calcium (Lipitor) 10 mg QHS PO Last administered on 11/14/16 21: 20; Admin Dose 10 MG; Start 09/28/16 at 21:00 Tiotropium [place] (Spiriva) 1 inh DAILY INH ; Start 09/28/16 at 16:00; Status Future Hold Mupirocin (Bactroban) 1 applic BID TOP Last administered on 11/15/16 09:47; Admin Dose 1 APPLIC; Start 09/30/16 at 09:00 Diagnostic Test (Pha) (Accucheck) 1 ea 02 XX Last administered on 11/03/16 02: 00; Admin Dose 1 EA; Start 10/05/16 at 02:00 Miscellaneous Information 1 ea NOTE XX ; Start 10/04/16 at 09:00 Glucose (Glutose) 15 gm Q15M PRN PO DECREASED GLUCOSE; Start 10/04/16 at 09:00 Glucose (Glutose) 22.5 gm Q15M PRN PO DECREASED GLUCOSE; Start 10/04/16 at 09: 00 Dextrose (D50w Syringe) 25 ml Q15M PRN IV DECREASED GLUCOSE; Start 10/04/16 at 09:00 Dextrose (D50w Syringe) 50 ml Q15M PRN IV DECREASED GLUCOSE; Start 10/04/16 at 09:00 Glucagon (Glucagen) 1 mg Q15M PRN IM DECREASED GLUCOSE; Start 10/04/16 at 09:00 Glucose (Glutose) 15 gm Q15M PRN BUCCAL DECREASED GLUCOSE; Start 10/04/16 at 09 :00 Metoprolol Tartrate (Lopressor) 5 mg Q4 PRN IV HR>110 Hold SBP<100; Start 10/05 at 19:30 Montelukast Sodium (Singulair) 10 mg HS PO Last administered on 11/14/16 21:20 ; Admin Dose 10 MG; Start 10/10/16 at 21:00 Theophylline (Benji-24) 300 mg QHS PO Last administered on 11/14/16 21:19; Admin Dose 300 MG; Start 10/10/16 at 21:00 Apixaban (Eliquis) 5 mg BID PO Last administered on 11/15/16 09:42; Admin Dose 5 MG; Start 10/10/16 at 21:00 Digoxin (Digoxin) 0.125 mg DAILY@13 PO Last administered on 11/10/16 13:35; Admin Dose 0.125 MG; Start 10/12/16 at 13:00; Status Future Hold Furosemide (Lasix) 40 mg AM PO Last administered on 11/14/16 08:41; Admin Dose 40 MG; Start 10/25/16 at 09:00; Status Future Hold Amiodarone HCl (Cordarone) 200 mg BID PO Last administered on 11/15/16 09:42; Admin Dose 200 MG; Start 10/24/16 at 21:00 Metoprolol Succinate (Toprol Xl) 50 mg DAILY PO Last administered on 11/15/16 09:46; Admin Dose 50 MG; Start 10/28/16 at 09:00 Metoprolol Succinate 50 mg 50 mg HS PO Last administered on 11/12/16 20:16; Admin Dose 50 MG; Start 10/28/16 at 21:00 Colistimethate Sodium/Sodium Chloride (Coly-Mycin/NS) 100 ml @ 200 mls/hr Q12 IVPB Last administered on 11/15/16 10:04; Admin Dose 200 MLS/HR; Start at 21:00 Lisinopril (Zestril) 10 mg DAILY PO Last administered on 11/15/16 09:46; Admin Dose 10 MG; Start 11/06/16 at 09:00 Salmeterol Xinafoate/ Fluticasone (Advair 250/50 Diskus) 1 inh BID INH Last administered on 11/15/16 09:41; Admin Dose 1 INH; Start 11/07/16 at 09:00 Bethanechol Chloride (Urecholine) 10 mg TID PO Last administered on 11/15/16 12:20; Admin Dose 10 MG; Start 11/14/16 at 09:00 Prednisone (Prednisone) 5 mg DAILY PO Last administered on 11/15/16 09:45; Admin Dose 5 MG; Start 11/14/16 at 10:30 Prednisone (Prednisone) 2 mg DAILY PO Last administered on 11/15/16 09:44; Admin Dose 2 MG; Start 11/14/16 at 10:30 Insulin Glargine (Lantus) 14 unit HS SC ; Start 11/15/16 at 21:00 UNIQUE KIRKLAND NP Nov 15, 2016 19:05
--- NOTE | 2016-11-15 21:29 | PN ---
DATE: 11/15/2016 SUBJECTIVE: Urinary retention. The patient states that he is voiding a little bit, but the patient had to be catheterized by the nurses to drain his bladder. The patient was catheterized at 12:00 f or 600 mL and at almost 6:00 for another 400 mL. Previously, the patient has refused to be catheter ized. OBJECTIVE: VITAL SIGNS: His temperature is 98.1, pulse 78, respirations 20, blood pressure 121/72. ABDOMEN: Soft. The bladder is not distended, as he was just catheterized about 2 hours earlier. LABORATORY DATA: The urine culture showing gram-negative rods and it is about 40,000 to 50,000 colo nies per mL. He did have a Klebsiella pneumoniae carbapenemase before. The white count is coming d own to 15.8, hemoglobin 8.1, hematocrit 25.9. BUN is 38, creatinine 1.39. IMPRESSION: Urinary tract infection and the urinary retention, and that is keeping his infection fr om clearing. RECOMMENDATION: To continue the antibiotic and also continue in and out catheterization for him dede ry 6 hours. I discussed with him the options of treatment, which basically include: 1. Have the catheter there all the time. 2. Another option would be to do in and out cath on him every 6 hours and this could be done by the nursing staff when he is in the hospital or at a prison facility. 3. Other option would be for him to learn for him to it himself. I am not sure whether he is capab le of learning and doing that from my knowing this patient. While he is in the hospital here, I think his best option would probably be going to a [place] [facility] facility and there they would either do the in and out catheterization for him every [address] the [address]aquin ter for him. Dictated By: JOSÉ PATTERSON MD BB/NANDO Conf#: [id number] DID#: [id number] CC: GLENDY ESCOBAR MD;*End*
[2016-11-15] MEDS: ATORVASTATIN 10 MG TAB PO SCH (22:18)
[2016-11-15] MEDS: MONTELUKAST 10 MG TAB PO SCH (22:18)
[2016-11-15] MEDS: THEOPHYLLINE (SR) 300 MG CAP PO SCH (22:18)
[2016-11-15] MEDS: INSULIN GLARGINE [LANtus] 3 ML PEN SC SCH (22:22)
[2016-11-15 23:13] VITALS: BP 99/52; RESP 18
[2016-11-16] MEDS: ALBUTEROL/IPRATROPIUM (NEB) 3 ML AMP HHN SCH ×4 (01:40→20:43)
[2016-11-16] MEDS: ACCU-CHEK XX SCH (01:51)
[2016-11-16 07:38] VITALS: BP 104/64; RESP 18
[2016-11-16] MEDS: INSULIN ASPART [NOVOLOG] 3 ML PEN SC SCH ×7 (08:00→20:05)
[2016-11-16] MEDS: METOPROLOL (XL) 25 MG TAB PO SCH ×2 (09:00→20:11)
[2016-11-16] MEDS: AMIODARONE 200 MG TAB PO SCH ×2 (09:00→20:13)
[2016-11-16] MEDS: LISINOPRIL 10 MG TAB PO SCH (09:00)
[2016-11-16] MEDS: predniSONE 1 MG TAB PO SCH ×2 (09:36→17:15)
[2016-11-16] MEDS: BETHANECHOL 10 MG TAB PO SCH ×3 (09:37→20:04)
[2016-11-16] MEDS: APIXABAN 5 MG TABLET PO SCH ×2 (09:37→20:05)
[2016-11-16] MEDS: ASPIRIN 81 MG TAB PO SCH (09:37)
[2016-11-16] MEDS: predniSONE 5 MG TAB PO SCH (09:37)
[2016-11-16] MEDS: FAMOTIDINE 20 MG TAB PO SCH ×2 (09:37→20:04)
[2016-11-16] MEDS: SALMETEROL/FLUTICASONE 250/50 INHA INH SCH ×2 (09:39→20:22)
[2016-11-16] MEDS: ACETAMINOPHEN 325 MG TAB PO PRN (09:43)
[2016-11-16] MEDS: COLISTIMETHATE 75 MG in SOD CHLORIDE 0.9% 100 ML IVPB SCH ×2 (09:43→20:22)
[2016-11-16] MEDS: MUPIROCIN 2% 22 GM OINT TOP SCH ×2 (09:49→20:06)
--- NOTE | 2016-11-16 12:50 | CONS ---
Date/Time of Note Date/Time of Note DATE: 11/16/16 TIME: 12:49 Assessment/Plan Assessment/Plan Chief Complaint/Hosp Course SUBJECTIVE: No events overnight, no fevers ANTIMICROBIALS: IV Colistin. PHYSICAL EXAMINATION: GENERAL: Well-developed, fragile, elderly man in no distress. HEENT: Head atraumatic, normocephalic. Sclerae anicteric. Buccal mucosa dry. NECK: Supple. CHEST: Rise symmetrical. Breath sounds clear, diminished to bases. HEART: S1, S2. ABDOMEN: Soft, bowel sounds present. EXTREMITIES: No cyanosis. ASSESSMENT: 1. Sepsis, resolving. 2. Multidrug resistant Klebsiella pneumoniae bacteremia 2 to #3. 3. Urinary tract infection==> s/p [place]. 4. Urinary retention 5. Bilateral hydronephrosis. 6. Chronic obstructive pulmonary disease, status post pneumonia. 7. Coronary artery disease, history of automatic implantable cardioverter defibrillator, status post interrogation. PLAN: The patient remains unchanged, wbc decreasing, urine cx 11/14 +, continue abx, f/u rec-s Dw staff Problems: Consultation Date/Type/Reason Admit Date/Time Sep 28, 2016 at 14:41 Initial Consult Date 09/28/16 Type of Consultation: ID Referring Provider: DEVON MUHAMMAD MD Exam/Review of Systems Vital Signs Vitals Vital Signs Date Time Temp Pulse Resp B/P Pulse Ox O2 Delivery O2 Flow Rate FiO2 11/16/16 10:56 Nasal Cannula 3.0 11/16/16 08:24 72 18 93 11/16/16 07:38 100.2 104/64 Intake and Output 11/15/16 11/15/16 11/16/16 15:00 23:00 07:00 Intake Total 980 ml 240 ml Output Total 1020 ml 550 ml Balance -40 ml -310 ml Results Result Diagram: 11/14/16 0440 11/15/16 0750 Results 24 hrs Laboratory Tests Test 11/15/16 16:51 11/15/16 21:37 11/16/16 08:01 11/16/16 11:15 Bedside Glucose 147 132 85 166 Medications Medications Current Medications IV Flush (NS 10 ml) 10 ml PRN PRN IV IV PROTOCOL Last administered on 11/11/16t 08:14; Admin Dose 10 ML; Start 09/28/16 at 14:00 Ondansetron HCl (Zofran Inj) 4 mg Q6H PRN IV NAUSEA AND/OR VOMITING; Start at 15:00 Nitroglycerin (Nitroglycerin (Sl Tab) 0.4 Mg) 1 tab Q5M PRN SL CHEST PAIN; Start 09/28/16 at 15:00 Acetaminophen (Tylenol Liquid) 650 mg Q6H PRN PO PAIN LEVEL 1-3 OR FEVER Last administered on 11/13/16 05:59; Admin Dose 650 MG; Start 09/28/16 at 15:00 Acetaminophen (Tylenol Tab) 650 mg Q6H PRN PO PAIN LEVEL 1-3 OR FEVER Last administered on 11/16/16 09:43; Admin Dose 650 MG; Start 09/28/16 at 15:00 Morphine Sulfate (morphine) 2 mg Q4H PRN IV PAIN LEVEL 7-10 Last administered on 09/29/16 02:30; Admin Dose 2 MG; Start 09/28/16 at 15:00 Lorazepam (Ativan) 1 mg Q2H PRN IV ANXIETY Last administered on 10/29/16 20:56 ; Admin Dose 1 MG; Start 09/28/16 at 15:00 Docusate Sodium (Colace) 100 mg Q12H PRN PO CONSTIPATION Last administered on 08:14; Admin Dose 100 MG; Start 09/28/16 at 15:00 Famotidine (Pepcid) 20 mg Q12 PO Last administered on 11/16/16 09:37; Admin Dose 20 MG; Start 09/28/16 at 21:00 Aspirin (Aspirin) 81 mg DAILY PO Last administered on 11/16/16 09:37; Admin Dose 81 MG; Start 09/29/16 at 09:00 Atorvastatin Calcium (Lipitor) 10 mg QHS PO Last administered on 11/15/16 22: 18; Admin Dose 10 MG; Start 09/28/16 at 21:00 Tiotropium [place] (Spiriva) 1 inh DAILY INH ; Start 09/28/16 at 16:00; Status Future Hold Mupirocin (Bactroban) 1 applic BID TOP Last administered on 11/16/16 09:49; Admin Dose 1 APPLIC; Start 09/30/16 at 09:00 Diagnostic Test (Pha) (Accucheck) 1 ea 02 XX Last administered on 11/03/16 02: 00; Admin Dose 1 EA; Start 10/05/16 at 02:00 Miscellaneous Information 1 ea NOTE XX ; Start 10/04/16 at 09:00 Glucose (Glutose) 15 gm Q15M PRN PO DECREASED GLUCOSE; Start 10/04/16 at 09:00 Glucose (Glutose) 22.5 gm Q15M PRN PO DECREASED GLUCOSE; Start 10/04/16 at 09: 00 Dextrose (D50w Syringe) 25 ml Q15M PRN IV DECREASED GLUCOSE; Start 10/04/16 at 09:00 Dextrose (D50w Syringe) 50 ml Q15M PRN IV DECREASED GLUCOSE; Start 10/04/16 at 09:00 Glucagon (Glucagen) 1 mg Q15M PRN IM DECREASED GLUCOSE; Start 10/04/16 at 09:00 Glucose (Glutose) 15 gm Q15M PRN BUCCAL DECREASED GLUCOSE; Start 10/04/16 at 09 :00 Metoprolol Tartrate (Lopressor) 5 mg Q4 PRN IV HR>110 Hold SBP<100; Start 10/05 at 19:30 Montelukast Sodium (Singulair) 10 mg HS PO Last administered on 11/15/16 22:18 ; Admin Dose 10 MG; Start 10/10/16 at 21:00 Theophylline (Benji-24) 300 mg QHS PO Last administered on 11/15/16 22:18; Admin Dose 300 MG; Start 10/10/16 at 21:00 Apixaban (Eliquis) 5 mg BID PO Last administered on 11/16/16 09:37; Admin Dose 5 MG; Start 10/10/16 at 21:00 Digoxin (Digoxin) 0.125 mg DAILY@13 PO Last administered on 11/10/16 13:35; Admin Dose 0.125 MG; Start 10/12/16 at 13:00; Status Future Hold Furosemide (Lasix) 40 mg AM PO Last administered on 11/14/16 08:41; Admin Dose 40 MG; Start 10/25/16 at 09:00; Status Future Hold Amiodarone HCl (Cordarone) 200 mg BID PO Last administered on 11/15/16 09:42; Admin Dose 200 MG; Start 10/24/16 at 21:00 Metoprolol Succinate (Toprol Xl) 50 mg DAILY PO Last administered on 11/15/16 09:46; Admin Dose 50 MG; Start 10/28/16 at 09:00 Metoprolol Succinate 50 mg 50 mg HS PO Last administered on 11/12/16 20:16; Admin Dose 50 MG; Start 10/28/16 at 21:00 Colistimethate Sodium/Sodium Chloride (Coly-Mycin/NS) 100 ml @ 200 mls/hr Q12 IVPB Last administered on 11/16/16 09:43; Admin Dose 200 MLS/HR; Start at 21:00 Lisinopril (Zestril) 10 mg DAILY PO Last administered on 11/15/16 09:46; Admin Dose 10 MG; Start 11/06/16 at 09:00 Salmeterol Xinafoate/ Fluticasone (Advair 250/50 Diskus) 1 inh BID INH Last administered on 11/16/16 09:39; Admin Dose 1 INH; Start 11/07/16 at 09:00 Bethanechol Chloride (Urecholine) 10 mg TID PO Last administered on 11/16/16 12:20; Admin Dose 10 MG; Start 11/14/16 at 09:00 Prednisone (Prednisone) 5 mg DAILY PO Last administered on 11/16/16 09:37; Admin Dose 5 MG; Start 11/14/16 at 10:30 Prednisone (Prednisone) 2 mg DAILY PO Last administered on 11/16/16 09:36; Admin Dose 2 MG; Start 11/14/16 at 10:30 Insulin Glargine (Lantus) 14 unit HS SC Last administered on 11/15/16 22:22; Admin Dose 14 UNIT; Start 11/15/16 at 21:00 CODY BRANCH NP Nov 16, 2016 12:49
--- NOTE | 2016-11-16 13:24 | PN ---
Date/Time of Note Date/Time of Note DATE: 11/16/16 TIME: 13:22 Assessment/Plan VTE Prophylaxis VTE Prophylaxis Intervention: other (eliquis) Lines/Catheters IV [facility]ter Type [facility]from [facility] [place] Urinary Cath still in place: No Assessment/Plan Assessment/Plan 1. 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 on colistimethate 2. 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 Simpson 3. COPD exacerbation, stable, neb, decrease steroid 4. facility acquired pneumonia, with ESBL E. Coli, and Lauren albicans, treated 5. Atrial fibrillation with RVR, sinus now, follow up with cardiology 6. Congestive heart failure, systolic, chronic, stable 7. Ischemic cardiomyopathy 8. CAD 9. s/p ICD, stable 10. Essential hypertension, stable 11. Dyslipidemia. Continue statin. 12. Hx of Foot Fx- stable 13. DVT prophylaxis: eliquis 14. S/P IVC filter Subjective 24 Hr Interval Summary Free Text/Dictation no event Exam/Review of Systems Vital Signs Vitals Vital Signs Date Time Temp Pulse Resp B/P Pulse Ox O2 Delivery O2 Flow Rate FiO2 11/16/16 10:56 Nasal Cannula 3.0 11/16/16 08:24 72 18 93 11/16/16 07:38 100.2 104/64 Intake and Output 11/15/16 11/15/16 11/16/16 15:00 23:00 07:00 Intake Total 980 ml 240 ml Output Total 1020 ml 550 ml Balance -40 ml -310 ml Exam Constitutional: alert, oriented, well developed Psych: nl mood/affect, no complaints Head: atraumatic, normocephalic Eyes: EOMI, PERRL, nl conjunctiva, nl lids ENMT: nl external ears & nose, nl lips & teeth, nl nasal mucosa & septum Neck: non-tender, supple Respiratory: clear to auscultation, normal air movement, No congested cough, No crackles/rales, No diminished breath sounds, No intercostal retraction, No labored breathing, No other, No respirations, No tactile fremitus, No wheezing Cardiovascular: nl pulses, regular rate and rhythm, No S3, No S4, No bruits, No diastolic murmur, No edema, No gallop, No irregular rhythm, No jugular venous distention (JVD), No murmurs/extra sounds, No other, No rub, No systolic murmur Gastrointestinal: nl liver, spleen, non-tender, soft, No ascites, No bowel sounds, No distended, No firm, No hepatomegaly, No mass , No other, No rebound or guarding, No splenomegaly, No surgical scars, No tender Musculoskeletal: nl extremities to inspection Extremities: normal pulses, No calf tenderness, No clubbing, No cyanosis, No edema, No other, No palpable cord, No pitting pedal edema, No tenderness Neurological: [employer] II-XII intact, nl mental status, nl speech, nl strength Skin: nl turgor Lymph: nl lymph nodes Results Result Diagram: 11/14/16 0440 11/15/16 0750 Results 24 hrs Laboratory Tests Test 11/15/16 16:51 11/15/16 21:37 11/16/16 08:01 11/16/16 11:15 Bedside Glucose 147 132 85 166 Medications Medications Current Medications IV Flush (NS 10 ml) 10 ml PRN PRN IV IV PROTOCOL Last administered on 11/11/16 08:14; Admin Dose 10 ML; Start 09/28/16 at 14:00 Ondansetron HCl (Zofran Inj) 4 mg Q6H PRN IV NAUSEA AND/OR VOMITING; Start at 15:00 Nitroglycerin (Nitroglycerin (Sl Tab) 0.4 Mg) 1 tab Q5M PRN SL CHEST PAIN; Start 09/28/16 at 15:00 Acetaminophen (Tylenol Liquid) 650 mg Q6H PRN PO PAIN LEVEL 1-3 OR FEVER Last administered on 11/13/16 05:59; Admin Dose 650 MG; Start 09/28/16 at 15:00 Acetaminophen (Tylenol Tab) 650 mg Q6H PRN PO PAIN LEVEL 1-3 OR FEVER Last administered on 11/16/16 09:43; Admin Dose 650 MG; Start 09/28/16 at 15:00 Morphine Sulfate (morphine) 2 mg Q4H PRN IV PAIN LEVEL 7-10 Last administered on 09/29/16 02:30; Admin Dose 2 MG; Start 09/28/16 at 15:00 Lorazepam (Ativan) 1 mg Q2H PRN IV ANXIETY Last administered on 10/29/16 20:56 ; Admin Dose 1 MG; Start 09/28/16 at 15:00 Docusate Sodium (Colace) 100 mg Q12H PRN PO CONSTIPATION Last administered on 08:14; Admin Dose 100 MG; Start 09/28/16 at 15:00 Famotidine (Pepcid) 20 mg Q12 PO Last administered on 11/16/16 09:37; Admin Dose 20 MG; Start 09/28/16 at 21:00 Aspirin (Aspirin) 81 mg DAILY PO Last administered on 11/16/16 09:37; Admin Dose 81 MG; Start 09/29/16 at 09:00 Atorvastatin Calcium (Lipitor) 10 mg QHS PO Last administered on 11/15/16 22: 18; Admin Dose 10 MG; Start 09/28/16 at 21:00 Tiotropium [place] (Spiriva) 1 inh DAILY INH ; Start 09/28/16 at 16:00; Status Future Hold Mupirocin (Bactroban) 1 applic BID TOP Last administered on 11/16/16 09:49; Admin Dose 1 APPLIC; Start 09/30/16 at 09:00 Diagnostic Test (Pha) (Accucheck) 1 ea 02 XX Last administered on 11/03/16 02: 00; Admin Dose 1 EA; Start 10/05/16 at 02:00 Miscellaneous Information 1 ea NOTE XX ; Start 10/04/16 at 09:00 Glucose (Glutose) 15 gm Q15M PRN PO DECREASED GLUCOSE; Start 10/04/16 at 09:00 Glucose (Glutose) 22.5 gm Q15M PRN PO DECREASED GLUCOSE; Start 10/04/16 at 09: 00 Dextrose (D50w Syringe) 25 ml Q15M PRN IV DECREASED GLUCOSE; Start 10/04/16 at 09:00 Dextrose (D50w Syringe) 50 ml Q15M PRN IV DECREASED GLUCOSE; Start 10/04/16 at 09:00 Glucagon (Glucagen) 1 mg Q15M PRN IM DECREASED GLUCOSE; Start 10/04/16 at 09:00 Glucose (Glutose) 15 gm Q15M PRN BUCCAL DECREASED GLUCOSE; Start 10/04/16 at 09 :00 Metoprolol Tartrate (Lopressor) 5 mg Q4 PRN IV HR>110 Hold SBP<100; Start 10/05 at 19:30 Montelukast Sodium (Singulair) 10 mg HS PO Last administered on 11/15/16 22:18 ; Admin Dose 10 MG; Start 10/10/16 at 21:00 Theophylline (Benji-24) 300 mg QHS PO Last administered on 11/15/16 22:18; Admin Dose 300 MG; Start 10/10/16 at 21:00 Apixaban (Eliquis) 5 mg BID PO Last administered on 11/16/16 09:37; Admin Dose 5 MG; Start 10/10/16 at 21:00 Digoxin (Digoxin) 0.125 mg DAILY@13 PO Last administered on 11/10/16 13:35; Admin Dose 0.125 MG; Start 10/12/16 at 13:00; Status Future Hold Furosemide (Lasix) 40 mg AM PO Last administered on 11/14/16 08:41; Admin Dose 40 MG; Start 10/25/16 at 09:00; Status Future Hold Amiodarone HCl (Cordarone) 200 mg BID PO Last administered on 11/15/16 09:42; Admin Dose 200 MG; Start 10/24/16 at 21:00 Metoprolol Succinate (Toprol Xl) 50 mg DAILY PO Last administered on 11/15/16 09:46; Admin Dose 50 MG; Start 10/28/16 at 09:00 Metoprolol Succinate 50 mg 50 mg HS PO Last administered on 11/12/16 20:16; Admin Dose 50 MG; Start 10/28/16 at 21:00 Colistimethate Sodium/Sodium Chloride (Coly-Mycin/NS) 100 ml @ 200 mls/hr Q12 IVPB Last administered on 11/16/16 09:43; Admin Dose 200 MLS/HR; Start at 21:00 Lisinopril (Zestril) 10 mg DAILY PO Last administered on 11/15/16 09:46; Admin Dose 10 MG; Start 11/06/16 at 09:00 Salmeterol Xinafoate/ Fluticasone (Advair 250/50 Diskus) 1 inh BID INH Last administered on 11/16/16 09:39; Admin Dose 1 INH; Start 11/07/16 at 09:00 Bethanechol Chloride (Urecholine) 10 mg TID PO Last administered on 11/16/16 12:20; Admin Dose 10 MG; Start 11/14/16 at 09:00 Prednisone (Prednisone) 5 mg DAILY PO Last administered on 11/16/16 09:37; Admin Dose 5 MG; Start 11/14/16 at 10:30 Prednisone (Prednisone) 2 mg DAILY PO Last administered on 11/16/16 09:36; Admin Dose 2 MG; Start 11/14/16 at 10:30 Insulin Glargine (Lantus) 14 unit HS SC Last administered on 11/15/16 22:22; Admin Dose 14 UNIT; Start 11/15/16 at 21:00 FUNMI MEZA MD Nov 16, 2016 13:23
--- NOTE | 2016-11-16 17:20 | CONS ---
Date/Time of Note Date/Time of Note DATE: 11/16/16 TIME: 17:18 Assessment/Plan Assessment/Plan Chief Complaint/Hosp Course IMPRESSION: 1. Atrial fibrillation with rapid ventricular response.-improved HR and now back in SR by ecg 11/13 2. Congestive heart failure, systolic, acute on chronic. 3. History of cardiomyopathy with decreased left ventricular ejection fraction 20% to 25% per chart biopsy. 4. Shortness of breath. 5. Status post hypercapnic respiratory failure, status post extubation. 6. Chronic obstructive pulmonary disease. 7. Hypertension-borderline hotn today with anti-hypertensives held 8. Dyslipidemia. 9. History of automatic implantable cardioverter-defibrillator with possible discharge.-s/p interrogation with ICD shock for uncontrolled rapid AF. 10. Pneumonia. 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 and f/u cx data and -awaiting placement Problems: Consultation Date/Type/Reason Admit Date/Time Sep 28, 2016 at 14:41 Initial Consult Date 09/28/16 Type of Consultation: Cardiology Reason for Consultation aicd discharge Referring Provider: DEVON MUHAMMAD MD Exam/Review of Systems Vital Signs Vitals Vital Signs Date Time Temp Pulse Resp B/P Pulse Ox O2 Delivery O2 Flow Rate FiO2 11/16/16 10:56 Nasal Cannula 3.0 11/16/16 08:24 72 18 93 11/16/16 07:38 100.2 104/64 Intake and Output 11/15/16 11/15/16 11/16/16 15:00 23:00 07:00 Intake Total 980 ml 240 ml Output Total 1020 ml 550 ml Balance -40 ml -310 ml Exam Review of Systems: CONSTITUTIONAL: No fevers, chills. PULMONARY: No sob CARDIOVASCULAR: No chest pain/palpitations GASTROINTESTINAL: No nausea/vomiting. GENITOURINARY: No hematuria/dysuria. MUSCULOSKELETAL: No myagias/arthalgias. PSYCHIATRIC: The patient denies depression. NEUROLOGIC: No weakness Constitutional: alert, oriented Psych: no complaints Head: normocephalic ENMT: mucosa pink and moist Neck: jvd (8 cm water), supple Respiratory: clear to auscultation Cardiovascular: regular rate and rhythm Gastrointestinal: non-tender, soft Musculoskeletal: muscle tone (normal) Extremities: edema Neurological: other (NO focal deficits) Results Result Diagram: 11/14/16 0440 11/15/16 0750 Results 24 hrs Laboratory Tests Test 11/15/16 21:37 11/16/16 08:01 11/16/16 11:15 Bedside Glucose 132 85 166 Medications Medications Current Medications IV Flush (NS 10 ml) 10 ml PRN PRN IV IV PROTOCOL Last administered on 11/11/16 08:14; Admin Dose 10 ML; Start 09/28/16 at 14:00 Ondansetron HCl (Zofran Inj) 4 mg Q6H PRN IV NAUSEA AND/OR VOMITING; Start at 15:00 Nitroglycerin (Nitroglycerin (Sl Tab) 0.4 Mg) 1 tab Q5M PRN SL CHEST PAIN; Start 09/28/16 at 15:00 Acetaminophen (Tylenol Liquid) 650 mg Q6H PRN PO PAIN LEVEL 1-3 OR FEVER Last administered on 11/13/16 05:59; Admin Dose 650 MG; Start 09/28/16 at 15:00 Acetaminophen (Tylenol Tab) 650 mg Q6H PRN PO PAIN LEVEL 1-3 OR FEVER Last administered on 11/16/16 09:43; Admin Dose 650 MG; Start 09/28/16 at 15:00 Morphine Sulfate (morphine) 2 mg Q4H PRN IV PAIN LEVEL 7-10 Last administered on 09/29/16 02:30; Admin Dose 2 MG; Start 09/28/16 at 15:00 Lorazepam (Ativan) 1 mg Q2H PRN IV ANXIETY Last administered on 10/29/16 20:56 ; Admin Dose 1 MG; Start 09/28/16 at 15:00 Docusate Sodium (Colace) 100 mg Q12H PRN PO CONSTIPATION Last administered on 08:14; Admin Dose 100 MG; Start 09/28/16 at 15:00 Famotidine (Pepcid) 20 mg Q12 PO Last administered on 11/16/16 09:37; Admin Dose 20 MG; Start 09/28/16 at 21:00 Aspirin (Aspirin) 81 mg DAILY PO Last administered on 11/16/16 09:37; Admin Dose 81 MG; Start 09/29/16 at 09:00 Atorvastatin Calcium (Lipitor) 10 mg QHS PO Last administered on 11/15/16 22: 18; Admin Dose 10 MG; Start 09/28/16 at 21:00 Tiotropium [place] (Spiriva) 1 inh DAILY INH ; Start 09/28/16 at 16:00; Status Future Hold Mupirocin (Bactroban) 1 applic BID TOP Last administered on 11/16/16 09:49; Admin Dose 1 APPLIC; Start 09/30/16 at 09:00 Diagnostic Test (Pha) (Accucheck) 1 ea 02 XX Last administered on 11/03/16 02: 00; Admin Dose 1 EA; Start 10/05/16 at 02:00 Miscellaneous Information 1 ea NOTE XX ; Start 10/04/16 at 09:00 Glucose (Glutose) 15 gm Q15M PRN PO DECREASED GLUCOSE; Start 10/04/16 at 09:00 Glucose (Glutose) 22.5 gm Q15M PRN PO DECREASED GLUCOSE; Start 10/04/16 at 09: 00 Dextrose (D50w Syringe) 25 ml Q15M PRN IV DECREASED GLUCOSE; Start 10/04/16 at 09:00 Dextrose (D50w Syringe) 50 ml Q15M PRN IV DECREASED GLUCOSE; Start 10/04/16 at 09:00 Glucagon (Glucagen) 1 mg Q15M PRN IM DECREASED GLUCOSE; Start 10/04/16 at 09:00 Glucose (Glutose) 15 gm Q15M PRN BUCCAL DECREASED GLUCOSE; Start 10/04/16 at 09 :00 Metoprolol Tartrate (Lopressor) 5 mg Q4 PRN IV HR>110 Hold SBP<100; Start 10/05 at 19:30 Montelukast Sodium (Singulair) 10 mg HS PO Last administered on 11/15/16 22:18 ; Admin Dose 10 MG; Start 10/10/16 at 21:00 Theophylline (Benji-24) 300 mg QHS PO Last administered on 11/15/16 22:18; Admin Dose 300 MG; Start 10/10/16 at 21:00 Apixaban (Eliquis) 5 mg BID PO Last administered on 11/16/16 09:37; Admin Dose 5 MG; Start 10/10/16 at 21:00 Digoxin (Digoxin) 0.125 mg DAILY@13 PO Last administered on 11/10/16 13:35; Admin Dose 0.125 MG; Start 10/12/16 at 13:00; Status Future Hold Furosemide (Lasix) 40 mg AM PO Last administered on 11/14/16 08:41; Admin Dose 40 MG; Start 10/25/16 at 09:00; Status Future Hold Amiodarone HCl (Cordarone) 200 mg BID PO Last administered on 11/15/16 09:42; Admin Dose 200 MG; Start 10/24/16 at 21:00 Metoprolol Succinate (Toprol Xl) 50 mg DAILY PO Last administered on 11/15/16 09:46; Admin Dose 50 MG; Start 10/28/16 at 09:00 Metoprolol Succinate 50 mg 50 mg HS PO Last administered on 11/12/16 20:16; Admin Dose 50 MG; Start 10/28/16 at 21:00 Colistimethate Sodium/Sodium Chloride (Coly-Mycin/NS) 100 ml @ 200 mls/hr Q12 IVPB Last administered on 11/16/16 09:43; Admin Dose 200 MLS/HR; Start at 21:00 Lisinopril (Zestril) 10 mg DAILY PO Last administered on 11/15/16 09:46; Admin Dose 10 MG; Start 11/06/16 at 09:00 Salmeterol Xinafoate/ Fluticasone (Advair 250/50 Diskus) 1 inh BID INH Last administered on 11/16/16 09:39; Admin Dose 1 INH; Start 11/07/16 at 09:00 Bethanechol Chloride (Urecholine) 10 mg TID PO Last administered on 11/16/16 12:20; Admin Dose 10 MG; Start 11/14/16 at 09:00 Prednisone (Prednisone) 5 mg DAILY PO Last administered on 11/16/16 09:37; Admin Dose 5 MG; Start 11/14/16 at 10:30 Prednisone (Prednisone) 2 mg DAILY PO Last administered on 11/16/16 09:36; Admin Dose 2 MG; Start 11/14/16 at 10:30 Insulin Glargine (Lantus) 14 unit HS SC Last administered on 11/15/16 22:22; Admin Dose 14 UNIT; Start 11/15/16 at 21:00 СВЕТЛАНА PADRON Nov 16, 2016 17:19
--- NOTE | 2016-11-16 18:36 | PN ---
DATE: 11/16/2016 SUBJECTIVE: Urinary retention. The patient, if he does void, he voids very small amounts and the p ostvoid residual is high, requiring that he undergo in and out catheterization. OBJECTIVE: VITAL SIGNS: His temperature is 100.2, the pulse is 72, respiration 18, blood pressure 104/64. The patient was catheterized at noon today and about 300 mL drained while the bladder scan only showed 385. The patient is about to be catheterized right now as well. LABORATORY DATA: The prostate on the CT scan is not large and, on the pelvic ultrasound, also did n ot appear to be enlarged to cause him his urinary retention. 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 I doubt that the patient himself will b e able to do a straight catheterization. He will need eventually to go on Pruett catheter. Dictated By: JOSÉ PATTERSON MD BB/NTS Conf#: [id number] DID#: [id number] CC: GLENDY ESCOBAR MD;*EndCC*
[2016-11-16 19:36] VITALS: BP 98/58; RESP 20
[2016-11-16] MEDS: THEOPHYLLINE (SR) 300 MG CAP PO SCH (20:04)
[2016-11-16] MEDS: MONTELUKAST 10 MG TAB PO SCH (20:04)
[2016-11-16] MEDS: INSULIN GLARGINE [LANtus] 3 ML PEN SC SCH (20:08)
[2016-11-16] MEDS: ATORVASTATIN 10 MG TAB PO SCH (20:22)
[2016-11-17] MEDS: ALBUTEROL/IPRATROPIUM (NEB) 3 ML AMP HHN SCH ×4 (02:00→21:00)
[2016-11-17] MEDS: ACCU-CHEK XX SCH (02:00)
[2016-11-17 05:25] LABS: POTASSIUM 4.6 mmol/L (3.5-5.1)
[2016-11-17 05:27] LABS: CREATININE 1.54 mg/dl (0.61-1.24)
[2016-11-17 05:28] LABS: CALCIUM 9.7 mg/dl (8.4-10.2)
[2016-11-17 07:26] VITALS: BP 118/76; RESP 18
[2016-11-17] MEDS: INSULIN ASPART [NOVOLOG] 3 ML PEN SC SCH ×7 (08:00→21:00)
[2016-11-17] MEDS: predniSONE 5 MG TAB PO SCH (09:35)
[2016-11-17] MEDS: FAMOTIDINE 20 MG TAB PO SCH ×2 (09:35→22:32)
[2016-11-17] MEDS: predniSONE 1 MG TAB PO SCH ×2 (09:35→18:06)
[2016-11-17] MEDS: SALMETEROL/FLUTICASONE 250/50 INHA INH SCH ×2 (09:35→22:33)
[2016-11-17] MEDS: BETHANECHOL 10 MG TAB PO SCH ×3 (09:35→22:32)
[2016-11-17] MEDS: COLISTIMETHATE 75 MG in SOD CHLORIDE 0.9% 100 ML IVPB SCH (09:35)
[2016-11-17] MEDS: ASPIRIN 81 MG TAB PO SCH (09:36)
[2016-11-17] MEDS: METOPROLOL (XL) 25 MG TAB PO SCH ×2 (09:36→21:00)
[2016-11-17] MEDS: APIXABAN 5 MG TABLET PO SCH ×2 (09:36→22:33)
[2016-11-17] MEDS: AMIODARONE 200 MG TAB PO SCH ×2 (09:37→22:38)
[2016-11-17] MEDS: LISINOPRIL 10 MG TAB PO SCH (09:37)
[2016-11-17] MEDS: MUPIROCIN 2% 22 GM OINT TOP SCH ×2 (09:38→22:50)
--- NOTE | 2016-11-17 11:01 | CONS ---
Date/Time of Note Date/Time of Note DATE: 11/17/16 TIME: 10:59 Assessment/Plan Assessment/Plan Additional Assessment/Plan 1. Atrial fibrillation with rapid ventricular response.-improved HR and now back in SR by ecg 11/13 - BETTER now - con't tele 2. Congestive heart failure, systolic, acute on chronic- improved fluid staus - will monitor 3. History of cardiomyopathy with decreased left ventricular ejection fraction 20% to 25% per chart biopsy- ICD in place 4. Shortness of breath. 5. Status post hypercapnic respiratory failure, status post extubation. 6. Chronic obstructive pulmonary disease. 7. Hypertension-borderline hotn today with anti-hypertensives held - stable, will follow 8. Dyslipidemia. 9. History of automatic implantable cardioverter-defibrillator with possible discharge.-s/p interrogation with ICD shock for uncontrolled rapid AF. 10. Pneumonia- Rx with antiBx 11.Positive troponin-minimal with no sig uptrend 12.UTI-Klebs 14.Bacteremia-Klebs/persistent-most recent Bld cx's negative 15.ARF-slowly improving with holding of lasix 16.Fevers Consultation Date/Type/Reason Admit Date/Time Sep 28, 2016 at 14:41 Initial Consult Date 09/28/16 Type of Consultation: Cardiology Referring Provider: DEVON MUHAMMAD MD 24 HR Interval Summary Free Text/Dictation NO acute change - better overall - will adjust Rx as needed ROS: No fever, no chills, no nausea, no vomiting, no diarrhea/constipation No recent weight changes No chest pain, no PND, no orthopnea No dizziness, blurred vision No thirst, no heat or cold intolerance Exam/Review of Systems Vital Signs Vitals Vital Signs Date Time Temp Pulse Resp B/P Pulse Ox O2 Delivery O2 Flow Rate FiO2 11/17/16 07:26 99.1 82 18 118/76 93 11/17/16 02:24 2.0 11/16/16 20:44 Nasal Cannula Intake and Output 11/16/16 11/16/16 11/17/16 15:00 23:00 07:00 Intake Total 100 ml 840 ml 450 ml Output Total 1300 ml Balance 100 ml 840 ml -850 ml Exam General: WN/WD/NAD, AOx 2-3 HEENT: Unicetric/atraumatic/EOMI ( follow commands) NECK: JVD elevated, no thyromegaly Lymph: no lymphadenopathy HEART: regular with no S3, II/ systolic murmur at apex LUNGS: Coarse sounds ABD: soft, NT, ND, +BS : Intact Neuro: non focal SKIN: chronic changes EXT: trace edema Results Result Diagram: 11/14/16 0440 11/17/16 0420 Results 24 hrs Laboratory Tests Test 11/16/16 11:15 11/16/16 17:18 11/16/16 20:03 11/17/16 04:20 Bedside Glucose 166 189 145 Anion Gap 14 Blood Urea Nitrogen 34 H Calcium Level 9.7 Carbon Dioxide Level 33 H Chloride Level 96 L Creatinine 1.54 H Glucose Level 96 Potassium Level 4.6 Sodium Level 138 Test 11/17/16 08:03 Bedside Glucose 113 Medications Medications Current Medications IV Flush (NS 10 ml) 10 ml PRN PRN IV IV PROTOCOL Last administered on 11/11/16 08:14; Admin Dose 10 ML; Start 09/28/16 at 14:00 Ondansetron HCl (Zofran Inj) 4 mg Q6H PRN IV NAUSEA AND/OR VOMITING; Start at 15:00 Nitroglycerin (Nitroglycerin (Sl Tab) 0.4 Mg) 1 tab Q5M PRN SL CHEST PAIN; Start 09/28/16 at 15:00 Acetaminophen (Tylenol Liquid) 650 mg Q6H PRN PO PAIN LEVEL 1-3 OR FEVER Last administered on 11/13/16 05:59; Admin Dose 650 MG; Start 09/28/16 at 15:00 Acetaminophen (Tylenol Tab) 650 mg Q6H PRN PO PAIN LEVEL 1-3 OR FEVER Last administered on 11/16/16 09:43; Admin Dose 650 MG; Start 09/28/16 at 15:00 Morphine Sulfate (morphine) 2 mg Q4H PRN IV PAIN LEVEL 7-10 Last administered on 09/29/16 02:30; Admin Dose 2 MG; Start 09/28/16 at 15:00 Lorazepam (Ativan) 1 mg Q2H PRN IV ANXIETY Last administered on 10/29/16 20:56 ; Admin Dose 1 MG; Start 09/28/16 at 15:00 Docusate Sodium (Colace) 100 mg Q12H PRN PO CONSTIPATION Last administered on 08:14; Admin Dose 100 MG; Start 09/28/16 at 15:00 Famotidine (Pepcid) 20 mg Q12 PO Last administered on 11/17/16 09:35; Admin Dose 20 MG; Start 09/28/16 at 21:00 Aspirin (Aspirin) 81 mg DAILY PO Last administered on 11/17/16 09:36; Admin Dose 81 MG; Start 09/29/16 at 09:00 Atorvastatin Calcium (Lipitor) 10 mg QHS PO Last administered on 11/16/16 20: 22; Admin Dose 10 MG; Start 09/28/16 at 21:00 Tiotropium [place] (Spiriva) 1 inh DAILY INH ; Start 09/28/16 at 16:00; Status Future Hold Mupirocin (Bactroban) 1 applic BID TOP Last administered on 11/17/16 09:38; Admin Dose 1 APPLIC; Start 09/30/16 at 09:00 Diagnostic Test (Pha) (Accucheck) 1 ea 02 XX Last administered on 11/03/16 02: 00; Admin Dose 1 EA; Start 10/05/16 at 02:00 Miscellaneous Information 1 ea NOTE XX ; Start 10/04/16 at 09:00 Glucose (Glutose) 15 gm Q15M PRN PO DECREASED GLUCOSE; Start 10/04/16 at 09:00 Glucose (Glutose) 22.5 gm Q15M PRN PO DECREASED GLUCOSE; Start 10/04/16 at 09: 00 Dextrose (D50w Syringe) 25 ml Q15M PRN IV DECREASED GLUCOSE; Start 10/04/16 at 09:00 Dextrose (D50w Syringe) 50 ml Q15M PRN IV DECREASED GLUCOSE; Start 10/04/16 at 09:00 Glucagon (Glucagen) 1 mg Q15M PRN IM DECREASED GLUCOSE; Start 10/04/16 at 09:00 Glucose (Glutose) 15 gm Q15M PRN BUCCAL DECREASED GLUCOSE; Start 10/04/16 at 09 :00 Metoprolol Tartrate (Lopressor) 5 mg Q4 PRN IV HR>110 Hold SBP<100; Start 10/05 at 19:30 Montelukast Sodium (Singulair) 10 mg HS PO Last administered on 11/16/16 20:04 ; Admin Dose 10 MG; Start 10/10/16 at 21:00 Theophylline (Benji-24) 300 mg QHS PO Last administered on 11/16/16 20:04; Admin Dose 300 MG; Start 10/10/16 at 21:00 Apixaban (Eliquis) 5 mg BID PO Last administered on 11/17/16 09:36; Admin Dose 5 MG; Start 10/10/16 at 21:00 Digoxin (Digoxin) 0.125 mg DAILY@13 PO Last administered on 11/10/16 13:35; Admin Dose 0.125 MG; Start 10/12/16 at 13:00; Status Future Hold Furosemide (Lasix) 40 mg AM PO Last administered on 11/14/16 08:41; Admin Dose 40 MG; Start 10/25/16 at 09:00; Status Future Hold Amiodarone HCl 200 mg 200 mg BID PO Last administered on 11/17/16 09:37; Admin Dose 200 MG; Start 10/24/16 at 21:00 Colistimethate Sodium/Sodium Chloride (Coly-Mycin/NS) 100 ml @ 200 mls/hr Q12 IVPB Last administered on 11/17/16 09:35; Admin Dose 200 MLS/HR; Start at 21:00 Lisinopril (Zestril) 10 mg DAILY PO Last administered on 11/17/16 09:37; Admin Dose 10 MG; Start 11/06/16 at 09:00 Salmeterol Xinafoate/ Fluticasone (Advair 250/50 Diskus) 1 inh BID INH Last administered on 11/17/16 09:35; Admin Dose 1 INH; Start 11/07/16 at 09:00 Bethanechol Chloride (Urecholine) 10 mg TID PO Last administered on 11/17/16 09:35; Admin Dose 10 MG; Start 11/14/16 at 09:00 Prednisone (Prednisone) 5 mg DAILY PO Last administered on 11/17/16 09:35; Admin Dose 5 MG; Start 11/14/16 at 10:30 Prednisone (Prednisone) 2 mg DAILY PO Last administered on 11/17/16 09:35; Admin Dose 2 MG; Start 11/14/16 at 10:30 Insulin Glargine (Lantus) 14 unit HS SC Last administered on 11/16/16 20:08; Admin Dose 14 UNIT; Start 11/15/16 at 21:00 Metoprolol Succinate (Toprol Xl) 25 mg DAILY PO Last administered on 11/17/16 09:36; Admin Dose 25 MG; Start 11/17/16 at 09:00 Metoprolol Succinate (Toprol Xl) 25 mg HS PO ; Start 11/16/16 at 21:00 RAYSHAWN DUNN MD Nov 17, 2016 11:01
--- NOTE | 2016-11-17 14:18 | PN ---
Date/Time of Note Date/Time of Note DATE: 11/17/16 TIME: 14:13 Assessment/Plan VTE Prophylaxis VTE Prophylaxis Intervention: other (eliquis) Lines/Catheters IV [facility]ter Type [facility]from [facility]): [place] [facility] Urinary Cath still in place: No Assessment/Plan Assessment/Plan 1. 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 on colistimethate 2. 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 Simpson 3. COPD exacerbation, stable, neb, decrease steroid 4. facility acquired pneumonia, with ESBL E. Coli, and Lauren albicans, treated 5. Atrial fibrillation with RVR, sinus now, follow up with cardiology 6. Congestive heart failure, systolic, chronic, stable 7. Ischemic cardiomyopathy 8. CAD 9. s/p ICD, stable 10. Essential hypertension, stable 11. Dyslipidemia. Continue statin. 12. Hx of Foot Fx- stable 13. DVT prophylaxis: eliquis 14. S/P IVC filter 15. Awaiting for placement Subjective 24 Hr Interval Summary Free Text/Dictation no event. no new complaint, no distress Exam/Review of Systems Vital Signs Vitals Vital Signs Date Time Temp Pulse Resp B/P Pulse Ox O2 Delivery O2 Flow Rate FiO2 11/17/16 10:45 Nasal Cannula 3.0 11/17/16 07:26 99.1 82 18 118/76 93 Intake and Output 11/16/16 11/16/16 11/17/16 15:00 23:00 07:00 Intake Total 100 ml 840 ml 450 ml Output Total 1300 ml Balance 100 ml 840 ml -850 ml Exam Constitutional: alert, oriented, well developed Psych: nl mood/affect, no complaints Head: atraumatic, normocephalic Eyes: EOMI, PERRL, nl conjunctiva, nl lids ENMT: nl external ears & nose, nl lips & teeth, nl nasal mucosa & septum Neck: non-tender, supple Respiratory: clear to auscultation, normal air movement, No congested cough, No crackles/rales, No diminished breath sounds, No intercostal retraction, No labored breathing, No other, No respirations, No tactile fremitus, No wheezing Cardiovascular: nl pulses, regular rate and rhythm, No S3, No S4, No bruits, No diastolic murmur, No edema, No gallop, No irregular rhythm, No jugular venous distention (JVD), No murmurs/extra sounds, No other, No rub, No systolic murmur Gastrointestinal: nl liver, spleen, non-tender, soft, No ascites, No bowel sounds, No distended, No firm, No hepatomegaly, No mass , No other, No rebound or guarding, No splenomegaly, No surgical scars, No tender Musculoskeletal: nl extremities to inspection Extremities: normal pulses, No calf tenderness, No clubbing, No cyanosis, No edema, No other, No palpable cord, No pitting pedal edema, No tenderness Neurological: 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 II-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, nl mental status, nl speech, nl strength Skin: nl turgor Lymph: nl lymph nodes Results Result Diagram: 11/14/16 0440 11/17/16 0420 Results 24 hrs Laboratory Tests Test 11/16/16 17:18 11/16/16 20:03 11/17/16 04:20 11/17/16 08:03 Bedside Glucose 189 145 113 Anion Gap 14 Blood Urea Nitrogen 34 H Calcium Level 9.7 Carbon Dioxide Level 33 H Chloride Level 96 L Creatinine 1.54 H Glucose Level 96 Potassium Level 4.6 Sodium Level 138 Test 11/17/16 12:17 Bedside Glucose 154 Medications Medications Current Medications IV Flush (NS 10 ml) 10 ml PRN PRN IV IV PROTOCOL Last administered on 11/11/16 08:14; Admin Dose 10 ML; Start 09/28/16 at 14:00 Ondansetron HCl (Zofran Inj) 4 mg Q6H PRN IV NAUSEA AND/OR VOMITING; Start at 15:00 Nitroglycerin (Nitroglycerin (Sl Tab) 0.4 Mg) 1 tab Q5M PRN SL CHEST PAIN; Start 09/28/16 at 15:00 Acetaminophen (Tylenol Liquid) 650 mg Q6H PRN PO PAIN LEVEL 1-3 OR FEVER Last administered on 11/13/16 05:59; Admin Dose 650 MG; Start 09/28/16 at 15:00 Acetaminophen (Tylenol Tab) 650 mg Q6H PRN PO PAIN LEVEL 1-3 OR FEVER Last administered on 11/16/16 09:43; Admin Dose 650 MG; Start 09/28/16 at 15:00 Morphine Sulfate (morphine) 2 mg Q4H PRN IV PAIN LEVEL 7-10 Last administered on 09/29/16 02:30; Admin Dose 2 MG; Start 09/28/16 at 15:00 Lorazepam (Ativan) 1 mg Q2H PRN IV ANXIETY Last administered on 10/29/16 20:56 ; Admin Dose 1 MG; Start 09/28/16 at 15:00 Docusate Sodium (Colace) 100 mg Q12H PRN PO CONSTIPATION Last administered on 08:14; Admin Dose 100 MG; Start 09/28/16 at 15:00 Famotidine (Pepcid) 20 mg Q12 PO Last administered on 11/17/16 09:35; Admin Dose 20 MG; Start 09/28/16 at 21:00 Aspirin (Aspirin) 81 mg DAILY PO Last administered on 11/17/16 09:36; Admin Dose 81 MG; Start 09/29/16 at 09:00 Atorvastatin Calcium (Lipitor) 10 mg QHS PO Last administered on 11/16/16 20: 22; Admin Dose 10 MG; Start 09/28/16 at 21:00 Tiotropium [place] (Spiriva) 1 inh DAILY INH ; Start 09/28/16 at 16:00; Status Future Hold Mupirocin (Bactroban) 1 applic BID TOP Last administered on 11/17/16 09:38; Admin Dose 1 APPLIC; Start 09/30/16 at 09:00 Diagnostic Test (Pha) (Accucheck) 1 ea 02 XX Last administered on 11/03/16 02: 00; Admin Dose 1 EA; Start 10/05/16 at 02:00 Miscellaneous Information 1 ea NOTE XX ; Start 10/04/16 at 09:00 Glucose (Glutose) 15 gm Q15M PRN PO DECREASED GLUCOSE; Start 10/04/16 at 09:00 Glucose (Glutose) 22.5 gm Q15M PRN PO DECREASED GLUCOSE; Start 10/04/16 at 09: 00 Dextrose (D50w Syringe) 25 ml Q15M PRN IV DECREASED GLUCOSE; Start 10/04/16 at 09:00 Dextrose (D50w Syringe) 50 ml Q15M PRN IV DECREASED GLUCOSE; Start 10/04/16 at 09:00 Glucagon (Glucagen) 1 mg Q15M PRN IM DECREASED GLUCOSE; Start 10/04/16 at 09:00 Glucose (Glutose) 15 gm Q15M PRN BUCCAL DECREASED GLUCOSE; Start 10/04/16 at 09 :00 Metoprolol Tartrate (Lopressor) 5 mg Q4 PRN IV HR>110 Hold SBP<100; Start 10/05 at 19:30 Montelukast Sodium (Singulair) 10 mg HS PO Last administered on 11/16/16 20:04 ; Admin Dose 10 MG; Start 10/10/16 at 21:00 Theophylline (Benji-24) 300 mg QHS PO Last administered on 11/16/16 20:04; Admin Dose 300 MG; Start 10/10/16 at 21:00 Apixaban (Eliquis) 5 mg BID PO Last administered on 11/17/16 09:36; Admin Dose 5 MG; Start 10/10/16 at 21:00 Digoxin (Digoxin) 0.125 mg DAILY@13 PO Last administered on 11/10/16 13:35; Admin Dose 0.125 MG; Start 10/12/16 at 13:00; Status Future Hold Furosemide (Lasix) 40 mg AM PO Last administered on 11/14/16 08:41; Admin Dose 40 MG; Start 10/25/16 at 09:00; Status Future Hold Amiodarone HCl (Cordarone) 200 mg BID PO Last administered on 11/17/16 09:37; Admin Dose 200 MG; Start 10/24/16 at 21:00 Lisinopril (Zestril) 10 mg DAILY PO Last administered on 11/17/16 09:37; Admin Dose 10 MG; Start 11/06/16 at 09:00 Salmeterol Xinafoate/ Fluticasone (Advair 250/50 Diskus) 1 inh BID INH Last administered on 11/17/16 09:35; Admin Dose 1 INH; Start 11/07/16 at 09:00 Bethanechol Chloride (Urecholine) 10 mg TID PO Last administered on 11/17/16 12:23; Admin Dose 10 MG; Start 11/14/16 at 09:00 Prednisone (Prednisone) 5 mg DAILY PO Last administered on 11/17/16 09:35; Admin Dose 5 MG; Start 11/14/16 at 10:30 Prednisone (Prednisone) 2 mg DAILY PO Last administered on 11/17/16 09:35; Admin Dose 2 MG; Start 11/14/16 at 10:30 Insulin Glargine (Lantus) 14 unit HS SC Last administered on 11/16/16 20:08; Admin Dose 14 UNIT; Start 11/15/16 at 21:00 Metoprolol Succinate (Toprol Xl) 25 mg DAILY PO Last administered on 11/17/16 09:36; Admin Dose 25 MG; Start 11/17/16 at 09:00 Metoprolol Succinate 25 mg 25 mg HS PO ; Start 11/16/16 at 21:00 Ceftazidime/ Avibactam/Sodium Chloride (Avycaz 2/0.5/NS) 100 ml @ 50 mls/hr Q8 IVPB ; Start 11/17/16 at 14:00; Stop 11/22/16 at 07:59 FUNMI MEZA MD Nov 17, 2016 14:17
[2016-11-17] MEDS: AVIBACTAM IVPB SCH ×2 (15:00→22:34)
[2016-11-17] MEDS: CEFTAZIDIME IVPB SCH ×2 (15:00→22:34)
[2016-11-17] MEDS: SOD CHLORIDE 0.9% IVPB SCH ×2 (15:00→22:34)
--- NOTE | 2016-11-17 16:05 | CONS ---
Date/Time of Note Date/Time of Note DATE: 11/17/16 TIME: 16:04 Assessment/Plan Assessment/Plan Chief Complaint/Hosp Course SUBJECTIVE: No events overnight, no fevers ANTIMICROBIALS: AvyCaz PHYSICAL EXAMINATION: GENERAL: Well-developed, fragile, elderly man in no distress. HEENT: Head atraumatic, normocephalic. Sclerae anicteric. Buccal mucosa dry. NECK: Supple. CHEST: Rise symmetrical. Breath sounds clear, diminished to bases. HEART: S1, S2. ABDOMEN: Soft, bowel sounds present. EXTREMITIES: No cyanosis. ASSESSMENT: 1. Sepsis, resolving. 2. Multidrug resistant Klebsiella pneumoniae bacteremia 2 to #3. 3. Urinary tract infection==> s/p Pruett. 4. Urinary retention 5. Bilateral hydronephrosis. 6. Chronic obstructive pulmonary disease, status post pneumonia. 7. Coronary artery disease, history of automatic implantable cardioverter defibrillator, status post interrogation. PLAN: The patient remains unchanged, wbc decreasing, urine cx 3 +, started on AvyCaz, continue present care, straight cath, rec-s staff Problems: Consultation Date/Type/Reason Admit Date/Time Sep 28, 2016 at 14:41 Initial Consult Date 09/28/16 Type of Consultation: ID Referring Provider: DEVON MUHAMMAD MD Exam/Review of Systems Vital Signs Vitals Vital Signs Date Time Temp Pulse Resp B/P Pulse Ox O2 Delivery O2 Flow Rate FiO2 11/17/16 10:45 Nasal Cannula 3.0 11/17/16 07:26 99.1 82 18 118/76 93 Intake and Output 11/16/16 11/16/16 11/17/16 15:00 23:00 07:00 Intake Total 100 ml 840 ml 450 ml Output Total 1300 ml Balance 100 ml 840 ml -850 ml Results Result Diagram: 11/14/16 0440 11/17/16 0420 Results 24 hrs Laboratory Tests Test 11/16/16 17:18 11/16/16 20:03 11/17/16 04:20 11/17/16 08:03 Bedside Glucose 189 145 113 Anion Gap 14 Blood Urea Nitrogen 34 H Calcium Level 9.7 Carbon Dioxide Level 33 H Chloride Level 96 L Creatinine 1.54 H Glucose Level 96 Potassium Level 4.6 Sodium Level 138 Test 11/17/16 12:17 Bedside Glucose 154 Medications Medications Current Medications IV Flush (NS 10 ml) 10 ml PRN PRN IV IV PROTOCOL Last administered on 11/11/16 08:14; Admin Dose 10 ML; Start 09/28/16 at 14:00 Ondansetron HCl (Zofran Inj) 4 mg Q6H PRN IV NAUSEA AND/OR VOMITING; Start at 15:00 Nitroglycerin (Nitroglycerin (Sl Tab) 0.4 Mg) 1 tab Q5M PRN SL CHEST PAIN; Start 09/28/16 at 15:00 Acetaminophen (Tylenol Liquid) 650 mg Q6H PRN PO PAIN LEVEL 1-3 OR FEVER Last administered on 11/13/16 05:59; Admin Dose 650 MG; Start 09/28/16 at 15:00 Acetaminophen (Tylenol Tab) 650 mg Q6H PRN PO PAIN LEVEL 1-3 OR FEVER Last administered on 11/16/16 09:43; Admin Dose 650 MG; Start 09/28/16 at 15:00 Morphine Sulfate (morphine) 2 mg Q4H PRN IV PAIN LEVEL 7-10 Last administered on 09/29/16 02:30; Admin Dose 2 MG; Start 09/28/16 at 15:00 Lorazepam (Ativan) 1 mg Q2H PRN IV ANXIETY Last administered on 10/29/16 20:56 ; Admin Dose 1 MG; Start 09/28/16 at 15:00 Docusate Sodium (Colace) 100 mg Q12H PRN PO CONSTIPATION Last administered on 08:14; Admin Dose 100 MG; Start 09/28/16 at 15:00 Famotidine (Pepcid) 20 mg Q12 PO Last administered on 11/17/16 09:35; Admin Dose 20 MG; Start 09/28/16 at 21:00 Aspirin (Aspirin) 81 mg DAILY PO Last administered on 11/17/16 09:36; Admin Dose 81 MG; Start 09/29/16 at 09:00 Atorvastatin Calcium (Lipitor) 10 mg QHS PO Last administered on 11/16/16 20: 22; Admin Dose 10 MG; Start 09/28/16 at 21:00 Tiotropium [place] (Spiriva) 1 inh DAILY INH ; Start 09/28/16 at 16:00; Status Future Hold Mupirocin (Bactroban) 1 applic BID TOP Last administered on 11/17/16 09:38; Admin Dose 1 APPLIC; Start 09/30/16 at 09:00 Diagnostic Test (Pha) (Accucheck) 1 ea 02 XX Last administered on 11/03/16 02: 00; Admin Dose 1 EA; Start 10/05/16 at 02:00 Miscellaneous Information 1 ea NOTE XX ; Start 10/04/16 at 09:00 Glucose (Glutose) 15 gm Q15M PRN PO DECREASED GLUCOSE; Start 10/04/16 at 09:00 Glucose (Glutose) 22.5 gm Q15M PRN PO DECREASED GLUCOSE; Start 10/04/16 at 09: 00 Dextrose (D50w Syringe) 25 ml Q15M PRN IV DECREASED GLUCOSE; Start 10/04/16 at 09:00 Dextrose (D50w Syringe) 50 ml Q15M PRN IV DECREASED GLUCOSE; Start 10/04/16 at 09:00 Glucagon (Glucagen) 1 mg Q15M PRN IM DECREASED GLUCOSE; Start 10/04/16 at 09:00 Glucose (Glutose) 15 gm Q15M PRN BUCCAL DECREASED GLUCOSE; Start 10/04/16 at 09 :00 Metoprolol Tartrate (Lopressor) 5 mg Q4 PRN IV HR>110 Hold SBP<100; Start 10/05 at 19:30 Montelukast Sodium (Singulair) 10 mg HS PO Last administered on 11/16/16 20:04 ; Admin Dose 10 MG; Start 10/10/16 at 21:00 Theophylline (Benji-24) 300 mg QHS PO Last administered on 11/16/16 20:04; Admin Dose 300 MG; Start 10/10/16 at 21:00 Apixaban (Eliquis) 5 mg BID PO Last administered on 11/17/16 09:36; Admin Dose 5 MG; Start 10/10/16 at 21:00 Digoxin (Digoxin) 0.125 mg DAILY@13 PO Last administered on 11/10/16 13:35; Admin Dose 0.125 MG; Start 10/12/16 at 13:00; Status Future Hold Furosemide (Lasix) 40 mg AM PO Last administered on 11/14/16 08:41; Admin Dose 40 MG; Start 10/25/16 at 09:00; Status Future Hold Amiodarone HCl (Cordarone) 200 mg BID PO Last administered on 11/17/16 09:37; Admin Dose 200 MG; Start 10/24/16 at 21:00 Lisinopril (Zestril) 10 mg DAILY PO Last administered on 11/17/16 09:37; Admin Dose 10 MG; Start 11/06/16 at 09:00 Salmeterol Xinafoate/ Fluticasone (Advair 250/50 Diskus) 1 inh BID INH Last administered on 11/17/16 09:35; Admin Dose 1 INH; Start 11/07/16 at 09:00 Bethanechol Chloride (Urecholine) 10 mg TID PO Last administered on 11/17/16 12:23; Admin Dose 10 MG; Start 11/14/16 at 09:00 Prednisone (Prednisone) 5 mg DAILY PO Last administered on 11/17/16 09:35; Admin Dose 5 MG; Start 11/14/16 at 10:30 Prednisone (Prednisone) 2 mg DAILY PO Last administered on 11/17/16 09:35; Admin Dose 2 MG; Start 11/14/16 at 10:30 Insulin Glargine (Lantus) 14 unit HS SC Last administered on 11/16/16 20:08; Admin Dose 14 UNIT; Start 11/15/16 at 21:00 Metoprolol Succinate (Toprol Xl) 25 mg DAILY PO Last administered on 11/17/16 09:36; Admin Dose 25 MG; Start 11/17/16 at 09:00 Metoprolol Succinate 25 mg 25 mg HS PO ; Start 11/16/16 at 21:00 Ceftazidime/ Avibactam/Sodium Chloride (Avycaz 2/0.5/NS) 100 ml @ 50 mls/hr Q8 IVPB Last administered on 11/17/16 15:00; Admin Dose 50 MLS/HR; Start at 14:00; Stop 11/22/16 at 07:59 CODY BRANCH NP Nov 17, 2016 16:05
[2016-11-17 19:35] VITALS: BP 108/55; RESP 18
--- NOTE | 2016-11-17 20:21 | PN ---
DATE: 11/17/2016 SUBJECTIVE: Urinary retention. The patient has not been able to urinate, and he has been catheteri zed every 6 hours. OBJECTIVE: VITAL SIGNS: His temperature is 99.1, pulse is 82, respiration 18, blood pressure 118/76. ABDOMEN: Soft. GENITOURINARY: He was catheterized multiple times every 6 hours, one time 700 mL, second time 600, another time 650, and when he tries to urinate, he just urinates a few drops, not much volume-zhou. The BUN is 34, creatinine 1.54. IMPRESSION: 1. Urinary retention. 2. Atonic bladder. RECOMMENDATION: Continue in-and-out catheterization every 6 hours and unfortunately does not look l nicole the patient himself is capable to do that, and if that is not done, then he will need an indwell ing Pruett catheter, which bothered him too much. Dictated By: JOSÉ DOS SANTOS/NANDO Conf#: [id number] DID#: [id number]
[2016-11-17] MEDS: ATORVASTATIN 10 MG TAB PO SCH (22:32)
[2016-11-17] MEDS: MONTELUKAST 10 MG TAB PO SCH (22:33)
[2016-11-17] MEDS: THEOPHYLLINE (SR) 300 MG CAP PO SCH (22:33)
[2016-11-17] MEDS: INSULIN GLARGINE [LANtus] 3 ML PEN SC SCH (22:35)
[2016-11-18] MEDS: ALBUTEROL/IPRATROPIUM (NEB) 3 ML AMP HHN SCH ×4 (02:00→19:32)
[2016-11-18] MEDS: ACCU-CHEK XX SCH (02:00)
[2016-11-18] MEDS: SOD CHLORIDE 0.9% IVPB SCH ×3 (05:54→21:09)
[2016-11-18] MEDS: AVIBACTAM IVPB SCH ×3 (05:54→21:09)
[2016-11-18] MEDS: CEFTAZIDIME IVPB SCH ×3 (05:54→21:09)
[2016-11-18 07:39] VITALS: BP 111/59; RESP 20
[2016-11-18] MEDS: LISINOPRIL 10 MG TAB PO SCH (09:00)
[2016-11-18] MEDS: METOPROLOL (XL) 25 MG TAB PO SCH (09:00)
[2016-11-18] MEDS: INSULIN ASPART [NOVOLOG] 3 ML PEN SC SCH ×7 (09:20→21:06)
[2016-11-18] MEDS: SALMETEROL/FLUTICASONE 250/50 INHA INH SCH ×2 (09:27→20:59)
[2016-11-18] MEDS: APIXABAN 5 MG TABLET PO SCH ×2 (09:27→21:00)
[2016-11-18] MEDS: FAMOTIDINE 20 MG TAB PO SCH ×2 (09:27→21:00)
[2016-11-18] MEDS: predniSONE 1 MG TAB PO SCH ×2 (09:27→17:25)
[2016-11-18] MEDS: ASPIRIN 81 MG TAB PO SCH (09:27)
[2016-11-18] MEDS: predniSONE 5 MG TAB PO SCH (09:27)
[2016-11-18] MEDS: BETHANECHOL 10 MG TAB PO SCH ×3 (09:28→21:01)
[2016-11-18] MEDS: AMIODARONE 200 MG TAB PO SCH ×2 (09:28→21:04)
[2016-11-18] MEDS: MUPIROCIN 2% 22 GM OINT TOP SCH ×2 (11:46→21:03)
--- NOTE | 2016-11-18 14:06 | PN ---
Date/Time of Note Date/Time of Note DATE: 11/18/16 TIME: 14:04 Assessment/Plan VTE Prophylaxis VTE Prophylaxis Intervention: other (eliquis) Lines/Catheters IV Catheter Type (from Nrs): Saline Lock Urinary Cath still in place: No Assessment/Plan Assessment/Plan 1. 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 on avycaz 2. 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 Simpson 3. COPD exacerbation, stable, neb, decrease steroid 4. facility acquired pneumonia, with ESBL E. Coli, and Lauren albicans, treated 5. Atrial fibrillation with RVR, sinus now, follow up with cardiology 6. Congestive heart failure, systolic, chronic, stable 7. Ischemic cardiomyopathy 8. CAD 9. s/p ICD, stable 10. Essential hypertension, stable 11. Dyslipidemia. Continue statin. 12. Hx of Foot Fx- stable 13. DVT prophylaxis: eliquis 14. S/P IVC filter 15. Awaiting for placemen Subjective 24 Hr Interval Summary Free Text/Dictation no complaint. no shortness of breath Exam/Review of Systems Vital Signs Vitals Vital Signs Date Time Temp Pulse Resp B/P Pulse Ox O2 Delivery O2 Flow Rate FiO2 11/18/16 10:27 Nasal Cannula 3.0 11/18/16 07:39 98.4 61 20 111/59 97 Intake and Output 11/17/16 11/17/16 11/18/16 15:00 23:00 07:00 Intake Total 100 ml 1020 ml 580 ml Output Total 600 ml 1350 ml Balance 100 ml 420 ml -770 ml Exam Constitutional: alert, oriented, well developed Psych: nl mood/affect, no complaints Head: atraumatic, normocephalic Eyes: EOMI, PERRL, nl conjunctiva, nl lids ENMT: nl external ears & nose, nl lips & teeth, nl nasal mucosa & septum Neck: non-tender, supple Respiratory: clear to auscultation, normal air movement, No congested cough, No crackles/rales, No diminished breath sounds, No intercostal retraction, No labored breathing, No other, No respirations, No tactile fremitus, No wheezing Cardiovascular: nl pulses, regular rate and rhythm, No S3, No S4, No bruits, No diastolic murmur, No edema, No gallop, No irregular rhythm, No jugular venous distention (JVD), No murmurs/extra sounds, No other, No rub, No systolic murmur Gastrointestinal: nl liver, spleen, non-tender, soft, No ascites, No bowel sounds, No distended, No firm, No hepatomegaly, No mass , No other, No rebound or guarding, No splenomegaly, No surgical scars, No tender Musculoskeletal: nl extremities to inspection Extremities: normal pulses, other (right foot wound), No calf tenderness, No clubbing, No cyanosis, No edema, No palpable cord, No pitting pedal edema, No tenderness Neurological: 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-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, nl mental status, nl speech, nl strength Skin: nl turgor Lymph: nl lymph nodes Results Result Diagram: 11/14/16 0440 11/17/16 0420 Results 24 hrs Laboratory Tests Test 11/17/16 18:05 11/17/16 22:30 11/18/16 07:35 11/18/16 11:42 Bedside Glucose 138 161 142 112 Medications Medications Current Medications IV Flush (NS 10 ml) 10 ml PRN PRN IV IV PROTOCOL Last administered on 11/11/16 08:14; Admin Dose 10 ML; Start 09/28/16 at 14:00 Ondansetron HCl (Zofran Inj) 4 mg Q6H PRN IV NAUSEA AND/OR VOMITING; Start at 15:00 Nitroglycerin (Nitroglycerin (Sl Tab) 0.4 Mg) 1 tab Q5M PRN SL CHEST PAIN; Start 09/28/16 at 15:00 Acetaminophen (Tylenol Liquid) 650 mg Q6H PRN PO PAIN LEVEL 1-3 OR FEVER Last administered on 11/13/16 05:59; Admin Dose 650 MG; Start 09/28/16 at 15:00 Acetaminophen (Tylenol Tab) 650 mg Q6H PRN PO PAIN LEVEL 1-3 OR FEVER Last administered on 11/16/16 09:43; Admin Dose 650 MG; Start 09/28/16 at 15:00 Morphine Sulfate (morphine) 2 mg Q4H PRN IV PAIN LEVEL 7-10 Last administered on 09/29/16 02:30; Admin Dose 2 MG; Start 09/28/16 at 15:00 Lorazepam (Ativan) 1 mg Q2H PRN IV ANXIETY Last administered on 10/29/16 20:56 ; Admin Dose 1 MG; Start 09/28/16 at 15:00 Docusate Sodium (Colace) 100 mg Q12H PRN PO CONSTIPATION Last administered on 08:14; Admin Dose 100 MG; Start 09/28/16 at 15:00 Famotidine (Pepcid) 20 mg Q12 PO Last administered on 11/18/16 09:27; Admin Dose 20 MG; Start 09/28/16 at 21:00 Aspirin (Aspirin) 81 mg DAILY PO Last administered on 11/18/16 09:27; Admin Dose 81 MG; Start 09/29/16 at 09:00 Atorvastatin Calcium (Lipitor) 10 mg QHS PO Last administered on 11/17/16 22: 32; Admin Dose 10 MG; Start 09/28/16 at 21:00 Tiotropium [place] (Spiriva) 1 inh DAILY INH ; Start 09/28/16 at 16:00; Status Future Hold Mupirocin (Bactroban) 1 applic BID TOP Last administered on 11/18/16 11:46; Admin Dose 1 APPLIC; Start 09/30/16 at 09:00 Diagnostic Test (Pha) (Accucheck) 1 ea 02 XX Last administered on 11/03/16 02: 00; Admin Dose 1 EA; Start 10/05/16 at 02:00 Miscellaneous Information 1 ea NOTE XX ; Start 10/04/16 at 09:00 Glucose (Glutose) 15 gm Q15M PRN PO DECREASED GLUCOSE; Start 10/04/16 at 09:00 Glucose (Glutose) 22.5 gm Q15M PRN PO DECREASED GLUCOSE; Start 10/04/16 at 09: 00 Dextrose (D50w Syringe) 25 ml Q15M PRN IV DECREASED GLUCOSE; Start 10/04/16 at 09:00 Dextrose (D50w Syringe) 50 ml Q15M PRN IV DECREASED GLUCOSE; Start 10/04/16 at 09:00 Glucagon (Glucagen) 1 mg Q15M PRN IM DECREASED GLUCOSE; Start 10/04/16 at 09:00 Glucose (Glutose) 15 gm Q15M PRN BUCCAL DECREASED GLUCOSE; Start 10/04/16 at 09 :00 Metoprolol Tartrate (Lopressor) 5 mg Q4 PRN IV HR>110 Hold SBP<100; Start 10/05 at 19:30 Montelukast Sodium (Singulair) 10 mg HS PO Last administered on 11/17/16 22:33 ; Admin Dose 10 MG; Start 10/10/16 at 21:00 Theophylline (Benji-24) 300 mg QHS PO Last administered on 11/17/16 22:33; Admin Dose 300 MG; Start 10/10/16 at 21:00 Apixaban (Eliquis) 5 mg BID PO Last administered on 11/18/16 09:27; Admin Dose 5 MG; Start 10/10/16 at 21:00 Digoxin (Digoxin) 0.125 mg DAILY@13 PO Last administered on 11/10/16 13:35; Admin Dose 0.125 MG; Start 10/12/16 at 13:00; Status Future Hold Furosemide (Lasix) 40 mg AM PO Last administered on 11/14/16 08:41; Admin Dose 40 MG; Start 10/25/16 at 09:00; Status Future Hold Amiodarone HCl (Cordarone) 200 mg BID PO Last administered on 11/18/16 09:28; Admin Dose 200 MG; Start 10/24/16 at 21:00 Lisinopril (Zestril) 10 mg DAILY PO Last administered on 11/17/16 09:37; Admin Dose 10 MG; Start 11/06/16 at 09:00 Salmeterol Xinafoate/ Fluticasone (Advair 250/50 Diskus) 1 inh BID INH Last administered on 11/18/16 09:27; Admin Dose 1 INH; Start 11/07/16 at 09:00 Bethanechol Chloride (Urecholine) 10 mg TID PO Last administered on 11/18/16 13:07; Admin Dose 10 MG; Start 11/14/16 at 09:00 Prednisone (Prednisone) 5 mg DAILY PO Last administered on 11/18/16 09:27; Admin Dose 5 MG; Start 11/14/16 at 10:30 Prednisone (Prednisone) 2 mg DAILY PO Last administered on 11/18/16 09:27; Admin Dose 2 MG; Start 11/14/16 at 10:30 Insulin Glargine (Lantus) 14 unit HS SC Last administered on 11/17/16 22:35; Admin Dose 14 UNIT; Start 11/15/16 at 21:00 Metoprolol Succinate (Toprol Xl) 25 mg DAILY PO Last administered on 11/17/16 09:36; Admin Dose 25 MG; Start 11/17/16 at 09:00 Metoprolol Succinate 25 mg 25 mg HS PO ; Start 11/16/16 at 21:00 Ceftazidime/ Avibactam/Sodium Chloride (Avycaz 2/0.5/NS) 100 ml @ 50 mls/hr Q8 IVPB Last administered on 11/18/16 13:07; Admin Dose 50 MLS/HR; Start at 14:00; Stop 11/22/16 at 07:59 FUNMI MEZA MD Nov 18, 2016 14:05
--- NOTE | 2016-11-18 14:15 | CONS ---
Date/Time of Note Date/Time of Note DATE: 11/18/16 TIME: 14:14 Assessment/Plan Assessment/Plan Chief Complaint/Hosp Course SUBJECTIVE: No events overnight, no fevers, alert, nad ANTIMICROBIALS: AvyCaz PHYSICAL EXAMINATION: GENERAL: Well-developed, fragile, elderly man in no distress. HEENT: Head atraumatic, normocephalic. Sclerae anicteric. Buccal mucosa dry. NECK: Supple. CHEST: Rise symmetrical. Breath sounds clear, diminished to bases. HEART: S1, S2. ABDOMEN: Soft, bowel sounds present. EXTREMITIES: No cyanosis. ASSESSMENT: 1. Sepsis, resolving. 2. Multidrug resistant Klebsiella pneumoniae bacteremia 2 to #3. 3. Urinary tract infection==> s/p Pruett. 4. Urinary retention 5. Bilateral hydronephrosis. 6. Chronic obstructive pulmonary disease, status post pneumonia. 7. Coronary artery disease, history of automatic implantable cardioverter defibrillator, status post interrogation. PLAN: The patient remains stable, continue abx, f/u rec-s, straight cath prn Dw staff Problems: Consultation Date/Type/Reason Admit Date/Time Sep 28, 2016 at 14:41 Initial Consult Date 09/28/16 Type of Consultation: ID Referring Provider: DEVON MUHAMMAD MD Exam/Review of Systems Vital Signs Vitals Vital Signs Date Time Temp Pulse Resp B/P Pulse Ox O2 Delivery O2 Flow Rate FiO2 11/18/16 10:27 Nasal Cannula 3.0 11/18/16 07:39 98.4 61 20 111/59 97 Intake and Output 11/17/16 11/17/16 11/18/16 15:00 23:00 07:00 Intake Total 100 ml 1020 ml 580 ml Output Total 600 ml 1350 ml Balance 100 ml 420 ml -770 ml Results Result Diagram: 11/14/16 0440 11/17/16 0420 Results 24 hrs Laboratory Tests Test 11/17/16 18:05 11/17/16 22:30 11/18/16 07:35 11/18/16 11:42 Bedside Glucose 138 161 142 112 Medications Medications Current Medications IV Flush (NS 10 ml) 10 ml PRN PRN IV IV PROTOCOL Last administered on 11/11/16t 08:14; Admin Dose 10 ML; Start 09/28/16 at 14:00 Ondansetron HCl (Zofran Inj) 4 mg Q6H PRN IV NAUSEA AND/OR VOMITING; Start at 15:00 Nitroglycerin (Nitroglycerin (Sl Tab) 0.4 Mg) 1 tab Q5M PRN SL CHEST PAIN; Start 09/28/16 at 15:00 Acetaminophen (Tylenol Liquid) 650 mg Q6H PRN PO PAIN LEVEL 1-3 OR FEVER Last administered on 11/13/16 05:59; Admin Dose 650 MG; Start 09/28/16 at 15:00 Acetaminophen (Tylenol Tab) 650 mg Q6H PRN PO PAIN LEVEL 1-3 OR FEVER Last administered on 11/16/16 09:43; Admin Dose 650 MG; Start 09/28/16 at 15:00 Morphine Sulfate (morphine) 2 mg Q4H PRN IV PAIN LEVEL 7-10 Last administered on 09/29/16 02:30; Admin Dose 2 MG; Start 09/28/16 at 15:00 Lorazepam (Ativan) 1 mg Q2H PRN IV ANXIETY Last administered on 10/29/16 20:56 ; Admin Dose 1 MG; Start 09/28/16 at 15:00 Docusate Sodium (Colace) 100 mg Q12H PRN PO CONSTIPATION Last administered on 08:14; Admin Dose 100 MG; Start 09/28/16 at 15:00 Famotidine (Pepcid) 20 mg Q12 PO Last administered on 11/18/16 09:27; Admin Dose 20 MG; Start 09/28/16 at 21:00 Aspirin (Aspirin) 81 mg DAILY PO Last administered on 11/18/16 09:27; Admin Dose 81 MG; Start 09/29/16 at 09:00 Atorvastatin Calcium (Lipitor) 10 mg QHS PO Last administered on 11/17/16 22: 32; Admin Dose 10 MG; Start 09/28/16 at 21:00 Tiotropium [place] (Spiriva) 1 inh DAILY INH ; Start 09/28/16 at 16:00; Status Future Hold Mupirocin (Bactroban) 1 applic BID TOP Last administered on 11/18/16 11:46; Admin Dose 1 APPLIC; Start 09/30/16 at 09:00 Diagnostic Test (Pha) (Accucheck) 1 ea 02 XX Last administered on 11/03/16 02: 00; Admin Dose 1 EA; Start 10/05/16 at 02:00 Miscellaneous Information 1 ea NOTE XX ; Start 10/04/16 at 09:00 Glucose (Glutose) 15 gm Q15M PRN PO DECREASED GLUCOSE; Start 10/04/16 at 09:00 Glucose (Glutose) 22.5 gm Q15M PRN PO DECREASED GLUCOSE; Start 10/04/16 at 09: 00 Dextrose (D50w Syringe) 25 ml Q15M PRN IV DECREASED GLUCOSE; Start 10/04/16 at 09:00 Dextrose (D50w Syringe) 50 ml Q15M PRN IV DECREASED GLUCOSE; Start 10/04/16 at 09:00 Glucagon (Glucagen) 1 mg Q15M PRN IM DECREASED GLUCOSE; Start 10/04/16 at 09:00 Glucose (Glutose) 15 gm Q15M PRN BUCCAL DECREASED GLUCOSE; Start 10/04/16 at 09 :00 Metoprolol Tartrate (Lopressor) 5 mg Q4 PRN IV HR>110 Hold SBP<100; Start 10/05 at 19:30 Montelukast Sodium (Singulair) 10 mg HS PO Last administered on 11/17/16 22:33 ; Admin Dose 10 MG; Start 10/10/16 at 21:00 Theophylline (Benji-24) 300 mg QHS PO Last administered on 11/17/16 22:33; Admin Dose 300 MG; Start 10/10/16 at 21:00 Apixaban (Eliquis) 5 mg BID PO Last administered on 11/18/16 09:27; Admin Dose 5 MG; Start 10/10/16 at 21:00 Digoxin (Digoxin) 0.125 mg DAILY@13 PO Last administered on 11/10/16 13:35; Admin Dose 0.125 MG; Start 10/12/16 at 13:00; Status Future Hold Furosemide (Lasix) 40 mg AM PO Last administered on 11/14/16 08:41; Admin Dose 40 MG; Start 10/25/16 at 09:00; Status Future Hold Amiodarone HCl (Cordarone) 200 mg BID PO Last administered on 11/18/16 09:28; Admin Dose 200 MG; Start 10/24/16 at 21:00 Lisinopril (Zestril) 10 mg DAILY PO Last administered on 11/17/16 09:37; Admin Dose 10 MG; Start 11/06/16 at 09:00 Salmeterol Xinafoate/ Fluticasone (Advair 250/50 Diskus) 1 inh BID INH Last administered on 11/18/16 09:27; Admin Dose 1 INH; Start 11/07/16 at 09:00 Bethanechol Chloride (Urecholine) 10 mg TID PO Last administered on 11/18/16 13:07; Admin Dose 10 MG; Start 11/14/16 at 09:00 Insulin Glargine (Lantus) 14 unit HS SC Last administered on 11/17/16 22:35; Admin Dose 14 UNIT; Start 11/15/16 at 21:00 Metoprolol Succinate (Toprol Xl) 25 mg DAILY PO Last administered on 11/17/16 09:36; Admin Dose 25 MG; Start 11/17/16 at 09:00 Metoprolol Succinate 25 mg 25 mg HS PO ; Start 11/16/16 at 21:00 Ceftazidime/ Avibactam/Sodium Chloride (Avycaz 2/0.5/NS) 100 ml @ 50 mls/hr Q8 IVPB Last administered on 11/18/16 13:07; Admin Dose 50 MLS/HR; Start at 14:00; Stop 11/22/16 at 07:59 CODY BRANCH NP Nov 18, 2016 14:15
--- NOTE | 2016-11-18 18:10 | CONS ---
Date/Time of Note Date/Time of Note DATE: 11/18/16 TIME: 18:08 Assessment/Plan Assessment/Plan Chief Complaint/Hosp Course IMPRESSION: 1. Atrial fibrillation with rapid ventricular response.-improved HR and now back in SR by ecg 11/13 2. Congestive heart failure, systolic, acute on chronic. 3. History of cardiomyopathy with decreased left ventricular ejection fraction 20% to 25% per chart biopsy. 4. Shortness of breath. 5. Status post hypercapnic respiratory failure, status post extubation. 6. Chronic obstructive pulmonary disease. 7. Hypertension-borderline hotn today with anti-hypertensives held 8. Dyslipidemia. 9. History of automatic implantable cardioverter-defibrillator with possible discharge.-s/p interrogation with ICD shock for uncontrolled rapid AF. 10. Pneumonia. 11.Positive troponin-minimal with no sig uptrend 12.UTI-Klebs 14.Bacteremia-Klebs/persistent-most recent Bld cx's negative 15.ARF-mild worsening/? urinary retention 16.Fevers Recc -Tele -Continue asa/Eliquis -ACEI/BB as tolerated and thus will continue to decrease doses to allow him to better tolerate -Contuinue to hold digoxin given elevated levels at this time -Continue statin -Follow volume status and will continue hold lasix and follow volume status/campaign assistant closely -Continue abx's and f/u cx data and -awaiting placement Problems: Consultation Date/Type/Reason Admit Date/Time Sep 28, 2016 at 14:41 Initial Consult Date 09/28/16 Type of Consultation: Cardiology Reason for Consultation AF/CHF Referring Provider: DEVON MUHAMMAD MD Exam/Review of Systems Vital Signs Vitals Vital Signs Date Time Temp Pulse Resp B/P Pulse Ox O2 Delivery O2 Flow Rate FiO2 11/18/16 15:04 78 20 92 Nasal Cannula 2.0 11/18/16 07:39 98.4 111/59 Intake and Output 11/17/16 11/17/16 11/18/16 15:00 23:00 07:00 Intake Total 100 ml 1020 ml 580 ml Output Total 600 ml 1350 ml Balance 100 ml 420 ml -770 ml Exam Review of Systems: CONSTITUTIONAL: No fevers, chills. PULMONARY: No sob CARDIOVASCULAR: No chest pain/palpitations GASTROINTESTINAL: No nausea/vomiting. GENITOURINARY: No hematuria/dysuria. MUSCULOSKELETAL: No myagias/arthalgias. PSYCHIATRIC: The patient denies depression. NEUROLOGIC: No weakness Constitutional: alert Psych: no complaints Head: normocephalic Eyes: nl conjunctiva ENMT: mucosa pink and moist Neck: jvd (9 cm water), supple Respiratory: diminished breath sounds Cardiovascular: regular rate and rhythm Gastrointestinal: non-tender, soft Musculoskeletal: muscle tone Extremities: normal pulses Neurological: other (No focal deficits) Results Result Diagram: 11/14/16 0440 11/17/16 0420 Results 24 hrs Laboratory Tests Test 11/17/16 22:30 11/18/16 07:35 11/18/16 11:42 11/18/16 16:53 Bedside Glucose 161 142 112 144 Medications Medications Current Medications IV Flush (NS 10 ml) 10 ml PRN PRN IV IV PROTOCOL Last administered on 11/11/16 08:14; Admin Dose 10 ML; Start 09/28/16 at 14:00 Ondansetron HCl (Zofran Inj) 4 mg Q6H PRN IV NAUSEA AND/OR VOMITING; Start at 15:00 Nitroglycerin (Nitroglycerin (Sl Tab) 0.4 Mg) 1 tab Q5M PRN SL CHEST PAIN; Start 09/28/16 at 15:00 Acetaminophen (Tylenol Liquid) 650 mg Q6H PRN PO PAIN LEVEL 1-3 OR FEVER Last administered on 11/13/16 05:59; Admin Dose 650 MG; Start 09/28/16 at 15:00 Acetaminophen (Tylenol Tab) 650 mg Q6H PRN PO PAIN LEVEL 1-3 OR FEVER Last administered on 11/16/16 09:43; Admin Dose 650 MG; Start 09/28/16 at 15:00 Morphine Sulfate (morphine) 2 mg Q4H PRN IV PAIN LEVEL 7-10 Last administered on 09/29/16 02:30; Admin Dose 2 MG; Start 09/28/16 at 15:00 Lorazepam (Ativan) 1 mg Q2H PRN IV ANXIETY Last administered on 10/29/16 20:56 ; Admin Dose 1 MG; Start 09/28/16 at 15:00 Docusate Sodium (Colace) 100 mg Q12H PRN PO CONSTIPATION Last administered on 08:14; Admin Dose 100 MG; Start 09/28/16 at 15:00 Famotidine (Pepcid) 20 mg Q12 PO Last administered on 11/18/16 09:27; Admin Dose 20 MG; Start 09/28/16 at 21:00 Aspirin (Aspirin) 81 mg DAILY PO Last administered on 11/18/16 09:27; Admin Dose 81 MG; Start 09/29/16 at 09:00 Atorvastatin Calcium (Lipitor) 10 mg QHS PO Last administered on 11/17/16 22: 32; Admin Dose 10 MG; Start 09/28/16 at 21:00 Tiotropium [place] (Spiriva) 1 inh DAILY INH ; Start 09/28/16 at 16:00; Status Future Hold Mupirocin (Bactroban) 1 applic BID TOP Last administered on 11/18/16 11:46; Admin Dose 1 APPLIC; Start 09/30/16 at 09:00 Diagnostic Test (Pha) (Accucheck) 1 ea 02 XX Last administered on 11/03/16 02: 00; Admin Dose 1 EA; Start 10/05/16 at 02:00 Miscellaneous Information 1 ea NOTE XX ; Start 10/04/16 at 09:00 Glucose (Glutose) 15 gm Q15M PRN PO DECREASED GLUCOSE; Start 10/04/16 at 09:00 Glucose (Glutose) 22.5 gm Q15M PRN PO DECREASED GLUCOSE; Start 10/04/16 at 09: 00 Dextrose (D50w Syringe) 25 ml Q15M PRN IV DECREASED GLUCOSE; Start 10/04/16 at 09:00 Dextrose (D50w Syringe) 50 ml Q15M PRN IV DECREASED GLUCOSE; Start 10/04/16 at 09:00 Glucagon (Glucagen) 1 mg Q15M PRN IM DECREASED GLUCOSE; Start 10/04/16 at 09:00 Glucose (Glutose) 15 gm Q15M PRN BUCCAL DECREASED GLUCOSE; Start 10/04/16 at 09 :00 Metoprolol Tartrate (Lopressor) 5 mg Q4 PRN IV HR>110 Hold SBP<100; Start 10/05 at 19:30 Montelukast Sodium (Singulair) 10 mg HS PO Last administered on 11/17/16 22:33 ; Admin Dose 10 MG; Start 10/10/16 at 21:00 Theophylline (Benji-24) 300 mg QHS PO Last administered on 11/17/16 22:33; Admin Dose 300 MG; Start 10/10/16 at 21:00 Apixaban (Eliquis) 5 mg BID PO Last administered on 11/18/16 09:27; Admin Dose 5 MG; Start 10/10/16 at 21:00 Digoxin (Digoxin) 0.125 mg DAILY@13 PO Last administered on 11/10/16 13:35; Admin Dose 0.125 MG; Start 10/12/16 at 13:00; Status Future Hold Furosemide (Lasix) 40 mg AM PO Last administered on 11/14/16 08:41; Admin Dose 40 MG; Start 10/25/16 at 09:00; Status Future Hold Amiodarone HCl (Cordarone) 200 mg BID PO Last administered on 11/18/16 09:28; Admin Dose 200 MG; Start 10/24/16 at 21:00 Lisinopril (Zestril) 10 mg DAILY PO Last administered on 11/17/16 09:37; Admin Dose 10 MG; Start 11/06/16 at 09:00 Salmeterol Xinafoate/ Fluticasone (Advair 250/50 Diskus) 1 inh BID INH Last administered on 11/18/16 09:27; Admin Dose 1 INH; Start 11/07/16 at 09:00 Bethanechol Chloride (Urecholine) 10 mg TID PO Last administered on 11/18/16 13:07; Admin Dose 10 MG; Start 11/14/16 at 09:00 Insulin Glargine (Lantus) 14 unit HS SC Last administered on 11/17/16 22:35; Admin Dose 14 UNIT; Start 11/15/16 at 21:00 Metoprolol Succinate (Toprol Xl) 25 mg DAILY PO Last administered on 11/17/16 09:36; Admin Dose 25 MG; Start 11/17/16 at 09:00 Metoprolol Succinate 25 mg 25 mg HS PO ; Start 11/16/16 at 21:00 Ceftazidime/ Avibactam/Sodium Chloride (Avycaz 2/0.5/NS) 100 ml @ 50 mls/hr Q8 IVPB Last administered on 11/18/16 13:07; Admin Dose 50 MLS/HR; Start at 14:00; Stop 11/22/16 at 07:59 СВЕТЛАНА PADRON Nov 18, 2016 18:10
--- NOTE | 2016-11-18 19:37 | PN ---
DATE: 11/18/2016 SUBJECTIVE: There are no changes in his condition. He is still unable to urinate and still needing in and out catheterization every 6 hours. OBJECTIVE: VITAL SIGNS: His temperature is 98.4, pulse is 78, respiration 20, blood pressure 111/59. The nurs e did catheterize him at 12 noon and about 600 mL drained and previously also was catheterized and a bout 720 mL drained. Discussed with the patient about the treatment, either he could learn how to do in and out catheteri zation, but he is not capable to, he has a lot of tremors and I do not think he could do that, [facility] er do the nurses treating him. Therefore, his options are to either have an indwelling [place] cathet er all the time or have in and out catheterization done by a professional in either the detention hopefully if he does go over there. Dictated By: JOSÉ DOS SANTOS/NANDO Conf#: [id number] DID#: [id number]
[2016-11-18] MEDS: ATORVASTATIN 10 MG TAB PO SCH (21:00)
[2016-11-18] MEDS: MONTELUKAST 10 MG TAB PO SCH (21:01)
[2016-11-18] MEDS: THEOPHYLLINE (SR) 300 MG CAP PO SCH (21:01)
[2016-11-18] MEDS: INSULIN GLARGINE [LANtus] 3 ML PEN SC SCH (21:06)
[2016-11-18 21:26] VITALS: BP 110/55; RESP 19
[2016-11-19] MEDS: ACCU-CHEK XX SCH (01:45)
[2016-11-19] MEDS: ALBUTEROL/IPRATROPIUM (NEB) 3 ML AMP HHN SCH ×4 (01:59→20:01)
[2016-11-19] MEDS: SOD CHLORIDE 0.9% IVPB SCH ×3 (05:14→21:18)
[2016-11-19] MEDS: AVIBACTAM IVPB SCH ×3 (05:14→21:18)
[2016-11-19] MEDS: CEFTAZIDIME IVPB SCH ×3 (05:14→21:18)
[2016-11-19] MEDS: INSULIN ASPART [NOVOLOG] 3 ML PEN SC SCH ×7 (07:35→20:20)
[2016-11-19 08:06] VITALS: BP 136/66; RESP 20
[2016-11-19] MEDS: SALMETEROL/FLUTICASONE 250/50 INHA INH SCH ×2 (08:15→20:20)
[2016-11-19] MEDS: FAMOTIDINE 20 MG TAB PO SCH ×2 (08:15→20:20)
[2016-11-19] MEDS: METOPROLOL (XL) 25 MG TAB PO SCH (08:16)
[2016-11-19] MEDS: ASPIRIN 81 MG TAB PO SCH (08:16)
[2016-11-19] MEDS: APIXABAN 5 MG TABLET PO SCH ×2 (08:16→20:20)
[2016-11-19] MEDS: AMIODARONE 200 MG TAB PO SCH ×2 (08:16→20:20)
[2016-11-19] MEDS: BETHANECHOL 10 MG TAB PO SCH ×3 (08:16→20:21)
[2016-11-19] MEDS: LISINOPRIL 5 MG TAB PO SCH (08:23)
[2016-11-19] MEDS: MUPIROCIN 2% 22 GM OINT TOP SCH ×2 (09:00→20:21)
[2016-11-19 09:42] LABS: ADD SCAN DIFF NO
[2016-11-19 09:58] LABS: POTASSIUM 4.8 mmol/L (3.5-5.1)
[2016-11-19 10:01] LABS: CREATININE 1.69 mg/dl (0.61-1.24)
[2016-11-19 10:02] LABS: CALCIUM 9.8 mg/dl (8.4-10.2)
[2016-11-19 10:03] LABS: BASOPHIL # 0.1 10^3/ul (0.0-0.1); BASOPHILS % 0.4 % (0.0-2.0); EOSINOPHILS # 0.1 10^3/ul (0.0-0.5); EOSINOPHILS % 1.1 % (0.0-7.0); HEMATOCRIT 25.5 % (42.0-52.0); LYMPHOCYTES # 0.8 10^3/ul (0.8-2.9); LYMPHOCYTES % 6.8 % (15.0-51.0); MEAN CORPUSCULAR HEMOGLOBIN 31.6 pg (29.0-33.0); MEAN CORPUSCULAR HGB CONC 31.4 g/dl (32.0-37.0); MEAN CORPUSCULAR VOLUME 100.8 fl (82.0-101.0); MONOCYTES % 8.3 % (0.0-11.0); NEUTROPHIL # 9.8 10^3/ul (1.6-7.5); PLATELET COUNT 350 10^3/UL (140-415); RED BLOOD COUNT 2.53 10^6/ul (4.70-6.10); RED CELL DISTRIBUTION WIDTH 14.8 % (11.5-14.5); WHITE BLOOD COUNT 12.2 10^3/ul (4.8-10.8)
--- NOTE | 2016-11-19 15:41 | CONS ---
Date/Time of Note Date/Time of Note DATE: 11/19/16 TIME: 15:40 Assessment/Plan Assessment/Plan Chief Complaint/Hosp Course SUBJECTIVE: No events overnight, no fevers ANTIMICROBIALS: AvyCaz PHYSICAL EXAMINATION: GENERAL: Well-developed, fragile, elderly man in no distress. HEENT: Head atraumatic, normocephalic. Sclerae anicteric. Buccal mucosa dry. NECK: Supple. CHEST: Rise symmetrical. Breath sounds clear, diminished to bases. HEART: S1, S2. ABDOMEN: Soft, bowel sounds present. EXTREMITIES: No cyanosis. ASSESSMENT: 1. Sepsis, resolving. 2. Multidrug resistant Klebsiella pneumoniae bacteremia 2 to #3. 3. Urinary tract infection==> s/p [place]. 4. Urinary retention 5. Bilateral hydronephrosis. 6. Chronic obstructive pulmonary disease, status post pneumonia. 7. Coronary artery disease, history of automatic implantable cardioverter defibrillator, status post interrogation. PLAN: The patient remains stable, continue abx for couple more days, f/u rec- s, straight cath prn Dw staff Problems: Consultation Date/Type/Reason Admit Date/Time Sep 28, 2016 at 14:41 Initial Consult Date 09/28/16 Type of Consultation: ID Referring Provider: DEVON MUHAMMAD MD Exam/Review of Systems Vital Signs Vitals Vital Signs Date Time Temp Pulse Resp B/P Pulse Ox O2 Delivery O2 Flow Rate FiO2 11/19/16 08:48 Nasal Cannula 3.0 11/19/16 08:06 98.4 70 20 136/66 99 Intake and Output 11/18/16 11/18/16 11/19/16 15:00 23:00 07:00 Intake Total 100 ml 2180 ml 400 ml Output Total 950 ml 2100 ml Balance 100 ml 1230 ml -1700 ml Results Result Diagram: 11/19/16 0933 11/19/16 0933 Results 24 hrs Laboratory Tests Test 11/18/16 16:53 11/18/16 20:41 11/19/16 01:45 11/19/16 07:40 Bedside Glucose 144 200 145 111 Test 11/19/16 09:33 11/19/16 11:40 Anion Gap 15 Basophils # 0.1 Basophils % 0.4 Blood Urea Nitrogen 32 H Calcium Level 9.8 Carbon Dioxide Level 31 Chloride Level 94 L Creatinine 1.69 H Eosinophils # 0.1 Eosinophils % 1.1 Glucose Level 106 Hematocrit 25.5 L Hemoglobin 8.0 L Lymphocytes # 0.8 Lymphocytes % 6.8 L Mean Corpuscular Hemoglobin 31.6 Mean Corpuscular Hemoglobin Concent 31.4 L Mean Corpuscular Volume 100.8 Mean Platelet Volume 9.0 Monocytes # 1.0 H Monocytes % 8.3 Neutrophils # 9.8 H Neutrophils % 81.0 H Nucleated Red Blood Cells # 0.0 Nucleated Red Blood Cells % 0.0 Platelet Count 350 Potassium Level 4.8 Red Blood Count 2.53 L Red Cell Distribution Width 14.8 H Sodium Level 135 White Blood Count 12.2 #H Bedside Glucose 124 Medications Medications Current Medications IV Flush (NS 10 ml) 10 ml PRN PRN IV IV PROTOCOL Last administered on 11/11/16 08:14; Admin Dose 10 ML; Start 09/28/16 at 14:00 Ondansetron HCl (Zofran Inj) 4 mg Q6H PRN IV NAUSEA AND/OR VOMITING; Start at 15:00 Nitroglycerin (Nitroglycerin (Sl Tab) 0.4 Mg) 1 tab Q5M PRN SL CHEST PAIN; Start 09/28/16 at 15:00 Acetaminophen (Tylenol Liquid) 650 mg Q6H PRN PO PAIN LEVEL 1-3 OR FEVER Last administered on 11/13/16 05:59; Admin Dose 650 MG; Start 09/28/16 at 15:00 Acetaminophen (Tylenol Tab) 650 mg Q6H PRN PO PAIN LEVEL 1-3 OR FEVER Last administered on 11/16/16 09:43; Admin Dose 650 MG; Start 09/28/16 at 15:00 Morphine Sulfate (morphine) 2 mg Q4H PRN IV PAIN LEVEL 7-10 Last administered on 09/29/16 02:30; Admin Dose 2 MG; Start 09/28/16 at 15:00 Lorazepam (Ativan) 1 mg Q2H PRN IV ANXIETY Last administered on 10/29/16 20:56 ; Admin Dose 1 MG; Start 09/28/16 at 15:00 Docusate Sodium (Colace) 100 mg Q12H PRN PO CONSTIPATION Last administered on 08:14; Admin Dose 100 MG; Start 09/28/16 at 15:00 Famotidine (Pepcid) 20 mg Q12 PO Last administered on 11/19/16 08:15; Admin Dose 20 MG; Start 09/28/16 at 21:00 Aspirin (Aspirin) 81 mg DAILY PO Last administered on 11/19/16 08:16; Admin Dose 81 MG; Start 09/29/16 at 09:00 Atorvastatin Calcium (Lipitor) 10 mg QHS PO Last administered on 11/18/16 21: 00; Admin Dose 10 MG; Start 09/28/16 at 21:00 Tiotropium [place] (Spiriva) 1 inh DAILY INH ; Start 09/28/16 at 16:00; Status Future Hold Mupirocin (Bactroban) 1 applic BID TOP Last administered on 11/18/16 21:03; Admin Dose 1 APPLIC; Start 09/30/16 at 09:00 Diagnostic Test (Pha) (Accucheck) 1 ea 02 XX Last administered on 11/19/16 01: 45; Admin Dose 1 EA; Start 10/05/16 at 02:00 Miscellaneous Information 1 ea NOTE XX ; Start 10/04/16 at 09:00 Glucose (Glutose) 15 gm Q15M PRN PO DECREASED GLUCOSE; Start 10/04/16 at 09:00 Glucose (Glutose) 22.5 gm Q15M PRN PO DECREASED GLUCOSE; Start 10/04/16 at 09: 00 Dextrose (D50w Syringe) 25 ml Q15M PRN IV DECREASED GLUCOSE; Start 10/04/16 at 09:00 Dextrose (D50w Syringe) 50 ml Q15M PRN IV DECREASED GLUCOSE; Start 10/04/16 at 09:00 Glucagon (Glucagen) 1 mg Q15M PRN IM DECREASED GLUCOSE; Start 10/04/16 at 09:00 Glucose (Glutose) 15 gm Q15M PRN BUCCAL DECREASED GLUCOSE; Start 10/04/16 at 09 :00 Metoprolol Tartrate (Lopressor) 5 mg Q4 PRN IV HR>110 Hold SBP<100; Start 10/05 at 19:30 Montelukast Sodium (Singulair) 10 mg HS PO Last administered on 11/18/16 21:01 ; Admin Dose 10 MG; Start 10/10/16 at 21:00 Theophylline (Benji-24) 300 mg QHS PO Last administered on 11/18/16 21:01; Admin Dose 300 MG; Start 10/10/16 at 21:00 Apixaban (Eliquis) 5 mg BID PO Last administered on 11/19/16 08:16; Admin Dose 5 MG; Start 10/10/16 at 21:00 Digoxin (Digoxin) 0.125 mg DAILY@13 PO Last administered on 11/10/16 13:35; Admin Dose 0.125 MG; Start 10/12/16 at 13:00; Status Future Hold Furosemide (Lasix) 40 mg AM PO Last administered on 11/14/16 08:41; Admin Dose 40 MG; Start 10/25/16 at 09:00; Status Future Hold Amiodarone HCl (Cordarone) 200 mg BID PO Last administered on 11/19/16 08:16; Admin Dose 200 MG; Start 10/24/16 at 21:00 Salmeterol Xinafoate/ Fluticasone (Advair 250/50 Diskus) 1 inh BID INH Last administered on 11/19/16 08:15; Admin Dose 1 INH; Start 11/07/16 at 09:00 Bethanechol Chloride (Urecholine) 10 mg TID PO Last administered on 11/19/16 13:03; Admin Dose 10 MG; Start 11/14/16 at 09:00 Insulin Glargine (Lantus) 14 unit HS SC Last administered on 11/18/16 21:06; Admin Dose 14 UNIT; Start 11/15/16 at 21:00 Metoprolol Succinate 25 mg 25 mg DAILY PO Last administered on 11/19/16 08:16 ; Admin Dose 25 MG; Start 11/17/16 at 09:00 Ceftazidime/ Avibactam/Sodium Chloride (Avycaz 2/0.5/NS) 100 ml @ 50 mls/hr Q8 IVPB Last administered on 11/19/16 13:04; Admin Dose 50 MLS/HR; Start at 14:00; Stop 11/22/16 at 07:59 Lisinopril (Zestril) 5 mg DAILY PO Last administered on 11/19/16 08:23; Admin Dose 5 MG; Start 11/19/16 at 09:00 CODY BRANCH NP Nov 19, 2016 15:41
--- NOTE | 2016-11-19 16:27 | PN ---
Date/Time of Note Date/Time of Note DATE: 11/19/16 TIME: 16:24 Assessment/Plan VTE Prophylaxis VTE Prophylaxis Intervention: other (eliquis) Lines/Catheters IV Catheter Type (from Nrs): Saline Lock Urinary Cath still in place: No Assessment/Plan Assessment/Plan 1. 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 on avycaz 2. 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 Simpson 3. COPD exacerbation, stable, neb, decrease steroid 4. facility acquired pneumonia, with ESBL E. Coli, and Lauren albicans, treated 5. Atrial fibrillation with RVR, sinus now, follow up with cardiology 6. Congestive heart failure, systolic, chronic, stable 7. Ischemic cardiomyopathy 8. CAD 9. s/p ICD, stable 10. Essential hypertension, stable 11. Dyslipidemia. Continue statin. 12. Hx of Foot Fx- stable 13. DVT prophylaxis: eliquis 14. S/P IVC filter 15. Chronic anemia, one unit PRBC 11/19/2016 16. Awaiting for placemen Subjective 24 Hr Interval Summary Free Text/Dictation no complaints, no event Exam/Review of Systems Vital Signs Vitals Vital Signs Date Time Temp Pulse Resp B/P Pulse Ox O2 Delivery O2 Flow Rate FiO2 11/19/16 08:48 Nasal Cannula 3.0 11/19/16 08:06 98.4 70 20 136/66 99 Intake and Output 11/18/16 11/18/16 11/19/16 15:00 23:00 07:00 Intake Total 100 ml 2180 ml 400 ml Output Total 950 ml 2100 ml Balance 100 ml 1230 ml -1700 ml Exam Constitutional: oriented, well developed Psych: nl mood/affect, no complaints Head: atraumatic, normocephalic Eyes: EOMI, nl conjunctiva, nl lids ENMT: nl external ears & nose, nl lips & teeth, nl nasal mucosa & septum Neck: non-tender, supple Respiratory: clear to auscultation, normal air movement, No congested cough, No crackles/rales, No diminished breath sounds, No intercostal retraction, No labored breathing, No other, No respirations, No tactile fremitus, No wheezing Cardiovascular: nl pulses, regular rate and rhythm, No S3, No S4, No bruits, No diastolic murmur, No edema, No gallop, No irregular rhythm, No jugular venous distention (JVD), No murmurs/extra sounds, No other, No rub, No systolic murmur Gastrointestinal: nl liver, spleen, non-tender, soft Musculoskeletal: nl extremities to inspection Extremities: normal pulses, other (right foot wound), No calf tenderness, No clubbing, No cyanosis, No edema, No palpable cord, No pitting pedal edema, No tenderness Neurological: HOB GRINDER II-XII intact, nl mental status, nl speech, nl strength Skin: nl turgor Lymph: nl lymph nodes Results Result Diagram: 11/19/1693211/19/16932 Results 24 hrs Laboratory Tests Test 11/18/16 16:53 11/18/16 20:41 11/19/16 01:45 11/19/16 07:40 Bedside Glucose 144 200 145 111 Test 11/19/16 09:33 11/19/16 11:40 Anion Gap 15 Basophils # 0.1 Basophils % 0.4 Blood Urea Nitrogen 32 H Calcium Level 9.8 Carbon Dioxide Level 31 Chloride Level 94 L Creatinine 1.69 H Eosinophils # 0.1 Eosinophils % 1.1 Glucose Level 106 Hematocrit 25.5 L Hemoglobin 8.0 L Lymphocytes # 0.8 Lymphocytes % 6.8 L Mean Corpuscular Hemoglobin 31.6 Mean Corpuscular Hemoglobin Concent 31.4 L Mean Corpuscular Volume 100.8 Mean Platelet Volume 9.0 Monocytes # 1.0 H Monocytes % 8.3 Neutrophils # 9.8 H Neutrophils % 81.0 H Nucleated Red Blood Cells # 0.0 Nucleated Red Blood Cells % 0.0 Platelet Count 350 Potassium Level 4.8 Red Blood Count 2.53 L Red Cell Distribution Width 14.8 H Sodium Level 135 White Blood Count 12.2 #H Bedside Glucose 124 Medications Medications Current Medications IV Flush (NS 10 ml) 10 ml PRN PRN IV IV PROTOCOL Last administered on 11/11/16t 08:14; Admin Dose 10 ML; Start 09/28/16 at 14:00 Ondansetron HCl (Zofran Inj) 4 mg Q6H PRN IV NAUSEA AND/OR VOMITING; Start at 15:00 Nitroglycerin (Nitroglycerin (Sl Tab) 0.4 Mg) 1 tab Q5M PRN SL CHEST PAIN; Start 09/28/16 at 15:00 Acetaminophen (Tylenol Liquid) 650 mg Q6H PRN PO PAIN LEVEL 1-3 OR FEVER Last administered on 11/13/16 05:59; Admin Dose 650 MG; Start 09/28/16 at 15:00 Acetaminophen (Tylenol Tab) 650 mg Q6H PRN PO PAIN LEVEL 1-3 OR FEVER Last administered on 11/16/16 09:43; Admin Dose 650 MG; Start 09/28/16 at 15:00 Morphine Sulfate (morphine) 2 mg Q4H PRN IV PAIN LEVEL 7-10 Last administered on 09/29/16 02:30; Admin Dose 2 MG; Start 09/28/16 at 15:00 Lorazepam (Ativan) 1 mg Q2H PRN IV ANXIETY Last administered on 10/29/16 20:56 ; Admin Dose 1 MG; Start 09/28/16 at 15:00 Docusate Sodium (Colace) 100 mg Q12H PRN PO CONSTIPATION Last administered on 08:14; Admin Dose 100 MG; Start 09/28/16 at 15:00 Famotidine (Pepcid) 20 mg Q12 PO Last administered on 11/19/16 08:15; Admin Dose 20 MG; Start 09/28/16 at 21:00 Aspirin (Aspirin) 81 mg DAILY PO Last administered on 11/19/16 08:16; Admin Dose 81 MG; Start 09/29/16 at 09:00 Atorvastatin Calcium (Lipitor) 10 mg QHS PO Last administered on 11/18/16 21: 00; Admin Dose 10 MG; Start 09/28/16 at 21:00 Tiotropium [place] (Spiriva) 1 inh DAILY INH ; Start 09/28/16 at 16:00; Status Future Hold Mupirocin (Bactroban) 1 applic BID TOP Last administered on 11/18/16 21:03; Admin Dose 1 APPLIC; Start 09/30/16 at 09:00 Diagnostic Test (Pha) (Accucheck) 1 ea 02 XX Last administered on 11/19/16 01: 45; Admin Dose 1 EA; Start 10/05/16 at 02:00 Miscellaneous Information 1 ea NOTE XX ; Start 10/04/16 at 09:00 Glucose (Glutose) 15 gm Q15M PRN PO DECREASED GLUCOSE; Start 10/04/16 at 09:00 Glucose (Glutose) 22.5 gm Q15M PRN PO DECREASED GLUCOSE; Start 10/04/16 at 09: 00 Dextrose (D50w Syringe) 25 ml Q15M PRN IV DECREASED GLUCOSE; Start 10/04/16 at 09:00 Dextrose (D50w Syringe) 50 ml Q15M PRN IV DECREASED GLUCOSE; Start 10/04/16 at 09:00 Glucagon (Glucagen) 1 mg Q15M PRN IM DECREASED GLUCOSE; Start 10/04/16 at 09:00 Glucose (Glutose) 15 gm Q15M PRN BUCCAL DECREASED GLUCOSE; Start 10/04/16 at 09 :00 Metoprolol Tartrate (Lopressor) 5 mg Q4 PRN IV HR>110 Hold SBP<100; Start 10/05 at 19:30 Montelukast Sodium (Singulair) 10 mg HS PO Last administered on 11/18/16 21:01 ; Admin Dose 10 MG; Start 10/10/16 at 21:00 Theophylline (Benji-24) 300 mg QHS PO Last administered on 11/18/16 21:01; Admin Dose 300 MG; Start 10/10/16 at 21:00 Apixaban (Eliquis) 5 mg BID PO Last administered on 11/19/16 08:16; Admin Dose 5 MG; Start 10/10/16 at 21:00 Digoxin (Digoxin) 0.125 mg DAILY@13 PO Last administered on 11/10/16 13:35; Admin Dose 0.125 MG; Start 10/12/16 at 13:00; Status Future Hold Furosemide (Lasix) 40 mg AM PO Last administered on 11/14/16 08:41; Admin Dose 40 MG; Start 10/25/16 at 09:00; Status Future Hold Amiodarone HCl (Cordarone) 200 mg BID PO Last administered on 11/19/16 08:16; Admin Dose 200 MG; Start 10/24/16 at 21:00 Salmeterol Xinafoate/ Fluticasone (Advair 250/50 Diskus) 1 inh BID INH Last administered on 11/19/16 08:15; Admin Dose 1 INH; Start 11/07/16 at 09:00 Bethanechol Chloride (Urecholine) 10 mg TID PO Last administered on 11/19/16 13:03; Admin Dose 10 MG; Start 11/14/16 at 09:00 Insulin Glargine (Lantus) 14 unit HS SC Last administered on 11/18/16 21:06; Admin Dose 14 UNIT; Start 11/15/16 at 21:00 Metoprolol Succinate 25 mg 25 mg DAILY PO Last administered on 11/19/16 08:16 ; Admin Dose 25 MG; Start 11/17/16 at 09:00 Ceftazidime/ Avibactam/Sodium Chloride (Avycaz 2/0.5/NS) 100 ml @ 50 mls/hr Q8 IVPB Last administered on 11/19/16 13:04; Admin Dose 50 MLS/HR; Start at 14:00; Stop 11/22/16 at 07:59 Lisinopril (Zestril) 5 mg DAILY PO Last administered on 11/19/16 08:23; Admin Dose 5 MG; Start 11/19/16 at 09:00 FUNMI MEZA MD Nov 19, 2016 16:27
[2016-11-19] MEDS: predniSONE 1 MG TAB PO SCH (16:31)
--- NOTE | 2016-11-19 18:32 | CONS ---
Date/Time of Note Date/Time of Note DATE: 11/19/16 TIME: 18:30 Assessment/Plan Assessment/Plan Chief Complaint/Hosp Course IMPRESSION: 1. Atrial fibrillation with rapid ventricular response.-improved HR and now back in SR by ecg 11/13 2. Congestive heart failure, systolic, acute on chronic. 3. History of cardiomyopathy with decreased left ventricular ejection fraction 20% to 25% per chart biopsy. 4. Shortness of breath. 5. Status post hypercapnic respiratory failure, status post extubation. 6. Chronic obstructive pulmonary disease. 7. Hypertension-borderline hotn today with anti-hypertensives held 8. Dyslipidemia. 9. History of automatic implantable cardioverter-defibrillator with possible discharge.-s/p interrogation with ICD shock for uncontrolled rapid AF. 10. Pneumonia. 11.Positive troponin-minimal with no sig uptrend 12.UTI-Klebs 14.Bacteremia-Klebs/persistent-most recent Bld cx's negative 15.ARF-mild worsening/? 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 -Continue abx's and f/u cx data and -awaiting placement -Document current rhythm with ECG Problems: Consultation Date/Type/Reason Admit Date/Time Sep 28, 2016 at 14:41 Initial Consult Date 09/28/16 Type of Consultation: Cardiology Reason for Consultation CHF/AICD discharge Referring Provider: DEVON MUHAMMAD MD Exam/Review of Systems Vital Signs Vitals Vital Signs Date Time Temp Pulse Resp B/P Pulse Ox O2 Delivery O2 Flow Rate FiO2 11/19/16 08:48 Nasal Cannula 3.0 11/19/16 08:06 98.4 70 20 136/66 99 Intake and Output 11/18/16 11/18/16 11/19/16 15:00 23:00 07:00 Intake Total 100 ml 2180 ml 450 ml Output Total 950 ml 2100 ml Balance 100 ml 1230 ml -1650 ml Exam Review of Systems: CONSTITUTIONAL: No fevers, chills. PULMONARY: No sob CARDIOVASCULAR: No chest pain/palpitations GASTROINTESTINAL: No nausea/vomiting. GENITOURINARY: No hematuria/dysuria. MUSCULOSKELETAL: No myagias/arthalgias. PSYCHIATRIC: The patient denies depression. NEUROLOGIC: No weakness Constitutional: alert, oriented Psych: no complaints Head: normocephalic ENMT: mucosa pink and moist Neck: jvd (9 cm water), supple Respiratory: clear to auscultation Cardiovascular: regular rate and rhythm Gastrointestinal: non-tender, soft Musculoskeletal: muscle tone (normal) Extremities: edema (none) Neurological: other (No focal deficits) Results Result Diagram: 11/19/1693211/19/16 0933 Results 24 hrs Laboratory Tests Test 11/18/16 20:41 11/19/16 01:45 11/19/16 07:40 11/19/16 09:33 Bedside Glucose 200 145 111 Anion Gap 15 Basophils # 0.1 Basophils % 0.4 Blood Urea Nitrogen 32 H Calcium Level 9.8 Carbon Dioxide Level 31 Chloride Level 94 L Creatinine 1.69 H Eosinophils # 0.1 Eosinophils % 1.1 Glucose Level 106 Hematocrit 25.5 L Hemoglobin 8.0 L Lymphocytes # 0.8 Lymphocytes % 6.8 L Mean Corpuscular Hemoglobin 31.6 Mean Corpuscular Hemoglobin Concent 31.4 L Mean Corpuscular Volume 100.8 Mean Platelet Volume 9.0 Monocytes # 1.0 H Monocytes % 8.3 Neutrophils # 9.8 H Neutrophils % 81.0 H Nucleated Red Blood Cells # 0.0 Nucleated Red Blood Cells % 0.0 Platelet Count 350 Potassium Level 4.8 Red Blood Count 2.53 L Red Cell Distribution Width 14.8 H Sodium Level 135 White Blood Count 12.2 #H Test 11/19/16 11:40 11/19/16 16:30 Bedside Glucose 124 113 Medications Medications Current Medications IV Flush (NS 10 ml) 10 ml PRN PRN IV IV PROTOCOL Last administered on 11/11/16t 08:14; Admin Dose 10 ML; Start 09/28/16 at 14:00 Ondansetron HCl (Zofran Inj) 4 mg Q6H PRN IV NAUSEA AND/OR VOMITING; Start at 15:00 Nitroglycerin (Nitroglycerin (Sl Tab) 0.4 Mg) 1 tab Q5M PRN SL CHEST PAIN; Start 09/28/16 at 15:00 Acetaminophen (Tylenol Liquid) 650 mg Q6H PRN PO PAIN LEVEL 1-3 OR FEVER Last administered on 11/13/16 05:59; Admin Dose 650 MG; Start 09/28/16 at 15:00 Acetaminophen (Tylenol Tab) 650 mg Q6H PRN PO PAIN LEVEL 1-3 OR FEVER Last administered on 11/16/16 09:43; Admin Dose 650 MG; Start 09/28/16 at 15:00 Morphine Sulfate (morphine) 2 mg Q4H PRN IV PAIN LEVEL 7-10 Last administered on 09/29/16 02:30; Admin Dose 2 MG; Start 09/28/16 at 15:00 Lorazepam (Ativan) 1 mg Q2H PRN IV ANXIETY Last administered on 10/29/16 20:56 ; Admin Dose 1 MG; Start 09/28/16 at 15:00 Docusate Sodium (Colace) 100 mg Q12H PRN PO CONSTIPATION Last administered on 08:14; Admin Dose 100 MG; Start 09/28/16 at 15:00 Famotidine (Pepcid) 20 mg Q12 PO Last administered on 11/19/16 08:15; Admin Dose 20 MG; Start 09/28/16 at 21:00 Aspirin (Aspirin) 81 mg DAILY PO Last administered on 11/19/16 08:16; Admin Dose 81 MG; Start 09/29/16 at 09:00 Atorvastatin Calcium (Lipitor) 10 mg QHS PO Last administered on 11/18/16 21: 00; Admin Dose 10 MG; Start 09/28/16 at 21:00 Tiotropium [place] (Spiriva) 1 inh DAILY INH ; Start 09/28/16 at 16:00; Status Future Hold Mupirocin (Bactroban) 1 applic BID TOP Last administered on 11/18/16 21:03; Admin Dose 1 APPLIC; Start 09/30/16 at 09:00 Diagnostic Test (Pha) (Accucheck) 1 ea 02 XX Last administered on 11/19/16 01: 45; Admin Dose 1 EA; Start 10/05/16 at 02:00 Miscellaneous Information 1 ea NOTE XX ; Start 10/04/16 at 09:00 Glucose (Glutose) 15 gm Q15M PRN PO DECREASED GLUCOSE; Start 10/04/16 at 09:00 Glucose (Glutose) 22.5 gm Q15M PRN PO DECREASED GLUCOSE; Start 10/04/16 at 09: 00 Dextrose (D50w Syringe) 25 ml Q15M PRN IV DECREASED GLUCOSE; Start 10/04/16 at 09:00 Dextrose (D50w Syringe) 50 ml Q15M PRN IV DECREASED GLUCOSE; Start 10/04/16 at 09:00 Glucagon (Glucagen) 1 mg Q15M PRN IM DECREASED GLUCOSE; Start 10/04/16 at 09:00 Glucose (Glutose) 15 gm Q15M PRN BUCCAL DECREASED GLUCOSE; Start 10/04/16 at 09 :00 Metoprolol Tartrate (Lopressor) 5 mg Q4 PRN IV HR>110 Hold SBP<100; Start 10/05 at 19:30 Montelukast Sodium (Singulair) 10 mg HS PO Last administered on 11/18/16 21:01 ; Admin Dose 10 MG; Start 10/10/16 at 21:00 Theophylline (Benji-24) 300 mg QHS PO Last administered on 11/18/16 21:01; Admin Dose 300 MG; Start 10/10/16 at 21:00 Apixaban (Eliquis) 5 mg BID PO Last administered on 11/19/16 08:16; Admin Dose 5 MG; Start 10/10/16 at 21:00 Digoxin (Digoxin) 0.125 mg DAILY@13 PO Last administered on 11/10/16 13:35; Admin Dose 0.125 MG; Start 10/12/16 at 13:00; Status Future Hold Furosemide (Lasix) 40 mg AM PO Last administered on 11/14/16 08:41; Admin Dose 40 MG; Start 10/25/16 at 09:00; Status Future Hold Amiodarone HCl (Cordarone) 200 mg BID PO Last administered on 11/19/16 08:16; Admin Dose 200 MG; Start 10/24/16 at 21:00 Salmeterol Xinafoate/ Fluticasone (Advair 250/50 Diskus) 1 inh BID INH Last administered on 11/19/16 08:15; Admin Dose 1 INH; Start 11/07/16 at 09:00 Bethanechol Chloride (Urecholine) 10 mg TID PO Last administered on 11/19/16 13:03; Admin Dose 10 MG; Start 3/11/17 at 09:00 Insulin Glargine (Lantus) 14 unit HS SC Last administered on 11/18/16 21:06; Admin Dose 14 UNIT; Start 11/15/16 at 21:00 Metoprolol Succinate 25 mg 25 mg DAILY PO Last administered on 11/19/16 08:16 ; Admin Dose 25 MG; Start 11/17/16 at 09:00 Ceftazidime/ Avibactam/Sodium Chloride (Avycaz 2/0.5/NS) 100 ml @ 50 mls/hr Q8 IVPB Last administered on 11/19/16 13:04; Admin Dose 50 MLS/HR; Start at 14:00; Stop 11/22/16 at 07:59 Lisinopril (Zestril) 5 mg DAILY PO Last administered on 11/19/16 08:23; Admin Dose 5 MG; Start 11/19/16 at 09:00 СВЕТЛАНА PADRON 16, 2017 18:32
[2016-11-19 20:00] VITALS: BP 106/62; RESP 19
[2016-11-19] MEDS: MONTELUKAST 10 MG TAB PO SCH (20:20)
[2016-11-19] MEDS: ATORVASTATIN 10 MG TAB PO SCH (20:20)
[2016-11-19] MEDS: THEOPHYLLINE (SR) 300 MG CAP PO SCH (20:21)
[2016-11-19] MEDS: ACETAMINOPHEN 325 MG TAB PO PRN (20:21)
[2016-11-19] MEDS: INSULIN GLARGINE [LANtus] 3 ML PEN SC SCH (20:23)
[2016-11-20] MEDS: ALBUTEROL/IPRATROPIUM (NEB) 3 ML AMP HHN SCH ×4 (01:24→20:37)
[2016-11-20] MEDS: ACCU-CHEK XX SCH (02:00)
[2016-11-20] MEDS: AVIBACTAM IVPB SCH ×3 (05:25→22:02)
[2016-11-20] MEDS: CEFTAZIDIME IVPB SCH ×3 (05:25→22:02)
[2016-11-20] MEDS: SOD CHLORIDE 0.9% IVPB SCH ×3 (05:25→22:02)
[2016-11-20] MEDS: INSULIN ASPART [NOVOLOG] 3 ML PEN SC SCH ×7 (07:35→21:27)
[2016-11-20 08:22] VITALS: BP 136/70; RESP 18
[2016-11-20] MEDS: FAMOTIDINE 20 MG TAB PO SCH ×2 (09:00→21:24)
[2016-11-20] MEDS: SALMETEROL/FLUTICASONE 250/50 INHA INH SCH ×2 (09:13→21:23)
[2016-11-20] MEDS: LISINOPRIL 5 MG TAB PO SCH (09:14)
[2016-11-20] MEDS: APIXABAN 5 MG TABLET PO SCH ×2 (09:14→21:23)
[2016-11-20] MEDS: METOPROLOL (XL) 25 MG TAB PO SCH (09:14)
[2016-11-20] MEDS: BETHANECHOL 10 MG TAB PO SCH ×2 (09:14→14:03)
[2016-11-20] MEDS: AMIODARONE 200 MG TAB PO SCH ×2 (09:15→21:23)
[2016-11-20] MEDS: ASPIRIN 81 MG TAB PO SCH (09:15)
[2016-11-20] MEDS: MUPIROCIN 2% 22 GM OINT TOP SCH ×2 (09:15→21:00)
--- NOTE | 2016-11-20 12:45 | CONS ---
Date/Time of Note Date/Time of Note DATE: 11/20/16 TIME: 12:41 Assessment/Plan Assessment/Plan Chief Complaint/Hosp Course IMPRESSION: 1. Atrial fibrillation with rapid ventricular response.-improved HR and now back in SR by ecg 11/20 2. Congestive heart failure, systolic, acute on chronic. 3. History of cardiomyopathy with decreased left ventricular ejection fraction 20% to 25% per chart biopsy. 4. Shortness of breath. 5. Status post hypercapnic respiratory failure, status post extubation. 6. Chronic obstructive pulmonary disease. 7. Hypertension-borderline hotn today with anti-hypertensives held 8. Dyslipidemia. 9. History of automatic implantable cardioverter-defibrillator with possible discharge.-s/p interrogation with ICD shock for uncontrolled rapid AF. 10. Pneumonia. 11.Positive troponin-minimal with no sig uptrend 12.UTI-Klebs 14.Bacteremia-Klebs/persistent-most recent Bld cx's negative 15.ARF-mild worsening/? 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 -Continue abx's and f/u cx data and -awaiting placement Problems: Consultation Date/Type/Reason Admit Date/Time Sep 28, 2016 at 14:41 Initial Consult Date 09/28/16 Type of Consultation: Cardiology Reason for Consultation Cardiomyopathy Referring Provider: DEVON MUHAMMAD MD Exam/Review of Systems Vital Signs Vitals Vital Signs Date Time Temp Pulse Resp B/P Pulse Ox O2 Delivery O2 Flow Rate FiO2 11/20/16 08:22 97.8 80 18 136/70 96 11/20/16 08:13 Nasal Cannula 3.0 Intake and Output 11/19/16 11/19/16 11/20/16 15:00 23:00 07:00 Intake Total 50 ml 1340 ml 800 ml Output Total 900 ml 1100 ml Balance 50 ml 440 ml -300 ml Exam Review of Systems: CONSTITUTIONAL: No fevers, chills. PULMONARY: No sob CARDIOVASCULAR: No chest pain/palpitations GASTROINTESTINAL: No nausea/vomiting. GENITOURINARY: No hematuria/dysuria. MUSCULOSKELETAL: No myagias/arthalgias. PSYCHIATRIC: The patient denies depression. NEUROLOGIC: No weakness Constitutional: alert Psych: no complaints Head: normocephalic ENMT: mucosa pink and moist Neck: jvd (8 cm water), supple Respiratory: diminished breath sounds (at bases/B) Cardiovascular: regular rate and rhythm Gastrointestinal: non-tender, soft Musculoskeletal: muscle tone (normal) Extremities: edema (none) Neurological: other (No focal deficits) Results Result Diagram: 11/19/16 0933 11/20/16 1124 Results 24 hrs Laboratory Tests Test 11/19/16 16:30 11/19/16 19:27 11/19/16 20:19 11/20/16 07:20 Bedside Glucose 113 160 102 Digoxin Level 0.5 L Test 11/20/16 11:24 11/20/16 11:38 Creatinine 1.54 H Bedside Glucose 127 Medications Medications Current Medications IV Flush (NS 10 ml) 10 ml PRN PRN IV IV PROTOCOL Last administered on 11/11/16 08:14; Admin Dose 10 ML; Start 09/28/16 at 14:00 Ondansetron HCl (Zofran Inj) 4 mg Q6H PRN IV NAUSEA AND/OR VOMITING; Start at 15:00 Nitroglycerin (Nitroglycerin (Sl Tab) 0.4 Mg) 1 tab Q5M PRN SL CHEST PAIN; Start 09/28/16 at 15:00 Acetaminophen (Tylenol Liquid) 650 mg Q6H PRN PO PAIN LEVEL 1-3 OR FEVER Last administered on 11/13/16 05:59; Admin Dose 650 MG; Start 09/28/16 at 15:00 Acetaminophen (Tylenol Tab) 650 mg Q6H PRN PO PAIN LEVEL 1-3 OR FEVER Last administered on 11/19/16 20:21; Admin Dose 650 MG; Start 09/28/16 at 15:00 Morphine Sulfate (morphine) 2 mg Q4H PRN IV PAIN LEVEL 7-10 Last administered on 09/29/16 02:30; Admin Dose 2 MG; Start 09/28/16 at 15:00 Lorazepam (Ativan) 1 mg Q2H PRN IV ANXIETY Last administered on 10/29/16 20:56 ; Admin Dose 1 MG; Start 09/28/16 at 15:00 Docusate Sodium (Colace) 100 mg Q12H PRN PO CONSTIPATION Last administered on 08:14; Admin Dose 100 MG; Start 09/28/16 at 15:00 Famotidine (Pepcid) 20 mg Q12 PO Last administered on 11/19/16 20:20; Admin Dose 20 MG; Start 09/28/16 at 21:00 Aspirin (Aspirin) 81 mg DAILY PO Last administered on 11/20/16 09:15; Admin Dose 81 MG; Start 09/29/16 at 09:00 Atorvastatin Calcium (Lipitor) 10 mg QHS PO Last administered on 11/19/16 20: 20; Admin Dose 10 MG; Start 09/28/16 at 21:00 Tiotropium [place] (Spiriva) 1 inh DAILY INH ; Start 09/28/16 at 16:00; Status Future Hold Mupirocin (Bactroban) 1 applic BID TOP Last administered on 11/20/16 09:15; Admin Dose 1 APPLIC; Start 09/30/16 at 09:00 Diagnostic Test (Pha) (Accucheck) 1 ea 02 XX Last administered on 11/19/16 01: 45; Admin Dose 1 EA; Start 10/05/16 at 02:00 Miscellaneous Information 1 ea NOTE XX ; Start 10/04/16 at 09:00 Glucose (Glutose) 15 gm Q15M PRN PO DECREASED GLUCOSE; Start 10/04/16 at 09:00 Glucose (Glutose) 22.5 gm Q15M PRN PO DECREASED GLUCOSE; Start 10/04/16 at 09: 00 Dextrose (D50w Syringe) 25 ml Q15M PRN IV DECREASED GLUCOSE; Start 10/04/16 at 09:00 Dextrose (D50w Syringe) 50 ml Q15M PRN IV DECREASED GLUCOSE; Start 10/04/16 at 09:00 Glucagon (Glucagen) 1 mg Q15M PRN IM DECREASED GLUCOSE; Start 10/04/16 at 09:00 Glucose (Glutose) 15 gm Q15M PRN BUCCAL DECREASED GLUCOSE; Start 10/04/16 at 09 :00 Metoprolol Tartrate (Lopressor) 5 mg Q4 PRN IV HR>110 Hold SBP<100; Start 10/05 at 19:30 Montelukast Sodium (Singulair) 10 mg HS PO Last administered on 11/19/16 20:20 ; Admin Dose 10 MG; Start 10/10/16 at 21:00 Theophylline (Benji-24) 300 mg QHS PO Last administered on 11/19/16 20:21; Admin Dose 300 MG; Start 10/10/16 at 21:00 Apixaban (Eliquis) 5 mg BID PO Last administered on 11/20/16 09:14; Admin Dose 5 MG; Start 10/10/16 at 21:00 Digoxin (Digoxin) 0.125 mg DAILY@13 PO Last administered on 11/10/16 13:35; Admin Dose 0.125 MG; Start 10/12/16 at 13:00; Status Future Hold Furosemide (Lasix) 40 mg AM PO Last administered on 11/14/16 08:41; Admin Dose 40 MG; Start 10/25/16 at 09:00; Status Future Hold Amiodarone HCl (Cordarone) 200 mg BID PO Last administered on 11/20/16 09:15; Admin Dose 200 MG; Start 10/24/16 at 21:00 Salmeterol Xinafoate/ Fluticasone (Advair 250/50 Diskus) 1 inh BID INH Last administered on 11/20/16 09:13; Admin Dose 1 INH; Start 11/07/16 at 09:00 Bethanechol Chloride (Urecholine) 10 mg TID PO Last administered on 11/20/16 09:14; Admin Dose 10 MG; Start 11/14/16 at 09:00 Insulin Glargine (Lantus) 14 unit HS SC Last administered on 11/19/16 20:23; Admin Dose 14 UNIT; Start 11/15/16 at 21:00 Metoprolol Succinate 25 mg 25 mg DAILY PO Last administered on 11/20/16 09:14 ; Admin Dose 25 MG; Start 11/17/16 at 09:00 Ceftazidime/ Avibactam/Sodium Chloride (Avycaz 2/0.5/NS) 100 ml @ 50 mls/hr Q8 IVPB Last administered on 11/20/16 05:25; Admin Dose 50 MLS/HR; Start at 14:00; Stop 11/22/16 at 07:59 Lisinopril (Zestril) 5 mg DAILY PO Last administered on 11/20/16 09:14; Admin Dose 5 MG; Start 11/19/16 at 09:00 СВЕТЛАНА PADRON Nov 20, 2016 12:45
--- NOTE | 2016-11-20 13:54 | PN ---
Date/Time of Note Date/Time of Note DATE: 11/20/16 TIME: 13:52 Assessment/Plan VTE Prophylaxis VTE Prophylaxis Intervention: other (eliquis) Lines/Catheters IV [facility]from [facility] [place] [facility] Urinary Cath still in place: No Assessment/Plan Assessment/Plan 1. 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 on avycaz 2. 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 Simpson 3. COPD exacerbation, stable, neb, decrease steroid 4. facility acquired pneumonia, with ESBL E. Coli, and Lauren albicans, treated 5. Atrial fibrillation with RVR, sinus now, follow up with cardiology 6. Congestive heart failure, systolic, chronic, stable 7. Ischemic cardiomyopathy 8. CAD 9. s/p ICD, stable 10. Essential hypertension, stable 11. Dyslipidemia. Continue statin. 12. Hx of Foot Fx- stable 13. DVT prophylaxis: eliquis 14. S/P IVC filter 15. Chronic anemia, one unit PRBC 11/19/2016 16. Awaiting for placement Subjective 24 Hr Interval Summary Free Text/Dictation no event. afebrile Exam/Review of Systems Vital Signs Vitals Vital Signs Date Time Temp Pulse Resp B/P Pulse Ox O2 Delivery O2 Flow Rate FiO2 11/20/16 08:22 97.8 80 18 136/70 96 11/20/16 08:13 Nasal Cannula 3.0 Intake and Output 11/19/16 11/19/16 11/20/16 15:00 23:00 07:00 Intake Total 50 ml 1340 ml 800 ml Output Total 900 ml 1100 ml Balance 50 ml 440 ml -300 ml Exam Constitutional: alert, oriented, well developed Psych: nl mood/affect, no complaints Head: atraumatic, normocephalic Eyes: EOMI, PERRL, nl conjunctiva, nl lids ENMT: nl external ears & nose, nl lips & teeth, nl nasal mucosa & septum Neck: non-tender, supple Respiratory: clear to auscultation, normal air movement, No congested cough, No crackles/rales, No diminished breath sounds, No intercostal retraction, No labored breathing, No other, No respirations, No tactile fremitus, No wheezing Cardiovascular: nl pulses, regular rate and rhythm, No S3, No S4, No bruits, No diastolic murmur, No edema, No gallop, No irregular rhythm, No jugular venous distention (JVD), No murmurs/extra sounds, No other, No rub, No systolic murmur Gastrointestinal: nl liver, spleen, non-tender, soft, No ascites, No bowel sounds, No distended, No firm, No hepatomegaly, No mass , No other, No rebound or guarding, No splenomegaly, No surgical scars, No tender Musculoskeletal: nl extremities to inspection Extremities: normal pulses, No calf tenderness, No clubbing, No cyanosis, No edema, No other, No palpable cord, No pitting pedal edema, No tenderness Neurological: [employer] II-XII intact, nl mental status, nl speech, nl strength Lymph: nl lymph nodes Results Result Diagram: 11/19/16 0933 11/20/16 1124 Results 24 hrs Laboratory Tests Test 11/19/16 16:30 11/19/16 19:27 11/19/16 20:19 11/20/16 07:20 Bedside Glucose 113 160 102 Digoxin Level 0.5 L Test 11/20/16 11:24 11/20/16 11:38 Blood Urea Nitrogen 29 H Creatinine 1.54 H Bedside Glucose 127 Medications Medications Current Medications IV Flush (NS 10 ml) 10 ml PRN PRN IV IV PROTOCOL Last administered on 11/11/16 08:14; Admin Dose 10 ML; Start 09/28/16 at 14:00 Ondansetron HCl (Zofran Inj) 4 mg Q6H PRN IV NAUSEA AND/OR VOMITING; Start at 15:00 Nitroglycerin (Nitroglycerin (Sl Tab) 0.4 Mg) 1 tab Q5M PRN SL CHEST PAIN; Start 09/28/16 at 15:00 Acetaminophen (Tylenol Liquid) 650 mg Q6H PRN PO PAIN LEVEL 1-3 OR FEVER Last administered on 11/13/16 05:59; Admin Dose 650 MG; Start 09/28/16 at 15:00 Acetaminophen (Tylenol Tab) 650 mg Q6H PRN PO PAIN LEVEL 1-3 OR FEVER Last administered on 11/19/16 20:21; Admin Dose 650 MG; Start 09/28/16 at 15:00 Morphine Sulfate (morphine) 2 mg Q4H PRN IV PAIN LEVEL 7-10 Last administered on 09/29/16 02:30; Admin Dose 2 MG; Start 09/28/16 at 15:00 Lorazepam (Ativan) 1 mg Q2H PRN IV ANXIETY Last administered on 10/29/16 20:56 ; Admin Dose 1 MG; Start 09/28/16 at 15:00 Docusate Sodium (Colace) 100 mg Q12H PRN PO CONSTIPATION Last administered on 08:14; Admin Dose 100 MG; Start 09/28/16 at 15:00 Famotidine (Pepcid) 20 mg Q12 PO Last administered on 11/19/16 20:20; Admin Dose 20 MG; Start 09/28/16 at 21:00 Aspirin (Aspirin) 81 mg DAILY PO Last administered on 11/20/16 09:15; Admin Dose 81 MG; Start 09/29/16 at 09:00 Atorvastatin Calcium (Lipitor) 10 mg QHS PO Last administered on 11/19/16 20: 20; Admin Dose 10 MG; Start 09/28/16 at 21:00 Tiotropium [place] (Spiriva) 1 inh DAILY INH ; Start 09/28/16 at 16:00; Status Future Hold Mupirocin (Bactroban) 1 applic BID TOP Last administered on 11/20/16 09:15; Admin Dose 1 APPLIC; Start 09/30/16 at 09:00 Diagnostic Test (Pha) (Accucheck) 1 ea 02 XX Last administered on 11/19/16 01: 45; Admin Dose 1 EA; Start 10/05/16 at 02:00 Miscellaneous Information 1 ea NOTE XX ; Start 10/04/16 at 09:00 Glucose (Glutose) 15 gm Q15M PRN PO DECREASED GLUCOSE; Start 10/04/16 at 09:00 Glucose (Glutose) 22.5 gm Q15M PRN PO DECREASED GLUCOSE; Start 10/04/16 at 09: 00 Dextrose (D50w Syringe) 25 ml Q15M PRN IV DECREASED GLUCOSE; Start 10/04/16 at 09:00 Dextrose (D50w Syringe) 50 ml Q15M PRN IV DECREASED GLUCOSE; Start 10/04/16 at 09:00 Glucagon (Glucagen) 1 mg Q15M PRN IM DECREASED GLUCOSE; Start 10/04/16 at 09:00 Glucose (Glutose) 15 gm Q15M PRN BUCCAL DECREASED GLUCOSE; Start 10/04/16 at 09 :00 Metoprolol Tartrate (Lopressor) 5 mg Q4 PRN IV HR>110 Hold SBP<100; Start 10/05 at 19:30 Montelukast Sodium (Singulair) 10 mg HS PO Last administered on 11/19/16 20:20 ; Admin Dose 10 MG; Start 10/10/16 at 21:00 Theophylline (Benji-24) 300 mg QHS PO Last administered on 11/19/16 20:21; Admin Dose 300 MG; Start 10/10/16 at 21:00 Apixaban (Eliquis) 5 mg BID PO Last administered on 11/20/16 09:14; Admin Dose 5 MG; Start 10/10/16 at 21:00 Digoxin (Digoxin) 0.125 mg DAILY@13 PO Last administered on 11/10/16 13:35; Admin Dose 0.125 MG; Start 10/12/16 at 13:00; Status Future Hold Furosemide (Lasix) 40 mg AM PO Last administered on 11/14/16 08:41; Admin Dose 40 MG; Start 10/25/16 at 09:00; Status Future Hold Amiodarone HCl (Cordarone) 200 mg BID PO Last administered on 11/20/16 09:15; Admin Dose 200 MG; Start 10/24/16 at 21:00 Salmeterol Xinafoate/ Fluticasone (Advair 250/50 Diskus) 1 inh BID INH Last administered on 11/20/16 09:13; Admin Dose 1 INH; Start 11/07/16 at 09:00 Bethanechol Chloride (Urecholine) 10 mg TID PO Last administered on 11/20/16 09:14; Admin Dose 10 MG; Start 11/14/16 at 09:00 Insulin Glargine (Lantus) 14 unit HS SC Last administered on 11/19/16 20:23; Admin Dose 14 UNIT; Start 11/15/16 at 21:00 Metoprolol Succinate 25 mg 25 mg DAILY PO Last administered on 11/20/16 09:14 ; Admin Dose 25 MG; Start 11/17/16 at 09:00 Ceftazidime/ Avibactam/Sodium Chloride (Avycaz 2/0.5/NS) 100 ml @ 50 mls/hr Q8 IVPB Last administered on 11/20/16 05:25; Admin Dose 50 MLS/HR; Start at 14:00; Stop 11/22/16 at 07:59 Lisinopril (Zestril) 5 mg DAILY PO Last administered on 11/20/16 09:14; Admin Dose 5 MG; Start 11/19/16 at 09:00 FUNMI MEZA MD Nov 20, 2016 13:54
--- NOTE | 2016-11-20 15:55 | CONS ---
Date/Time of Note Date/Time of Note DATE: 11/20/16 TIME: 15:54 Assessment/Plan Assessment/Plan Chief Complaint/Hosp Course SUBJECTIVE: No events overnight ANTIMICROBIALS: [facility] PHYSICAL EXAMINATION: GENERAL: Well-developed, fragile, elderly man in no distress. HEENT: Head atraumatic, normocephalic. Sclerae anicteric. Buccal mucosa dry. NECK: Supple. CHEST: Rise symmetrical. Breath sounds clear, diminished to bases. HEART: S1, S2. ABDOMEN: Soft, bowel sounds present. EXTREMITIES: No cyanosis. ASSESSMENT: 1. Sepsis, resolving. 2. Multidrug resistant Klebsiella pneumoniae bacteremia 2 to #3. 3. Urinary tract infection==> s/p Pruett. 4. Urinary retention 5. Bilateral hydronephrosis. 6. Chronic obstructive pulmonary disease, status post pneumonia. 7. Coronary artery disease, history of automatic implantable cardioverter defibrillator, status post interrogation. PLAN: The patient remains stable, will dc abx in am and observe, continue straight cath prn/ rec-s Dw staff Problems: Consultation Date/Type/Reason Admit Date/Time Sep 28, 2016 at 14:41 Initial Consult Date 09/28/16 Type of Consultation: ID Referring Provider: DEVON MUHAMMAD MD Exam/Review of Systems Vital Signs Vitals Vital Signs Date Time Temp Pulse Resp B/P Pulse Ox O2 Delivery O2 Flow Rate FiO2 11/20/16 15:11 2.0 11/20/16 08:22 97.8 80 18 136/70 96 11/20/16 08:13 Nasal Cannula Intake and Output 11/19/16 11/19/16 11/20/16 15:00 23:00 07:00 Intake Total 50 ml 1340 ml 800 ml Output Total 900 ml 1100 ml Balance 50 ml 440 ml -300 ml Results Result Diagram: 11/19/16 0933 11/20/16 1124 Results 24 hrs Laboratory Tests Test 11/19/16 16:30 11/19/16 19:27 11/19/16 20:19 11/20/16 07:20 Bedside Glucose 113 160 102 Digoxin Level 0.5 L Test 11/20/16 11:24 11/20/16 11:38 Blood Urea Nitrogen 29 H Creatinine 1.54 H Bedside Glucose 127 Medications Medications Current Medications IV Flush (NS 10 ml) 10 ml PRN PRN IV IV PROTOCOL Last administered on 11/11/16 08:14; Admin Dose 10 ML; Start 09/28/16 at 14:00 Ondansetron HCl (Zofran Inj) 4 mg Q6H PRN IV NAUSEA AND/OR VOMITING; Start at 15:00 Nitroglycerin (Nitroglycerin (Sl Tab) 0.4 Mg) 1 tab Q5M PRN SL CHEST PAIN; Start 09/28/16 at 15:00 Acetaminophen (Tylenol Liquid) 650 mg Q6H PRN PO PAIN LEVEL 1-3 OR FEVER Last administered on 11/13/16 05:59; Admin Dose 650 MG; Start 09/28/16 at 15:00 Acetaminophen (Tylenol Tab) 650 mg Q6H PRN PO PAIN LEVEL 1-3 OR FEVER Last administered on 11/19/16 20:21; Admin Dose 650 MG; Start 09/28/16 at 15:00 Morphine Sulfate (morphine) 2 mg Q4H PRN IV PAIN LEVEL 7-10 Last administered on 09/29/16 02:30; Admin Dose 2 MG; Start 09/28/16 at 15:00 Lorazepam (Ativan) 1 mg Q2H PRN IV ANXIETY Last administered on 10/29/16 20:56 ; Admin Dose 1 MG; Start 09/28/16 at 15:00 Docusate Sodium (Colace) 100 mg Q12H PRN PO CONSTIPATION Last administered on 08:14; Admin Dose 100 MG; Start 09/28/16 at 15:00 Famotidine (Pepcid) 20 mg Q12 PO Last administered on 11/19/16 20:20; Admin Dose 20 MG; Start 09/28/16 at 21:00 Aspirin (Aspirin) 81 mg DAILY PO Last administered on 11/20/16 09:15; Admin Dose 81 MG; Start 09/29/16 at 09:00 Atorvastatin Calcium (Lipitor) 10 mg QHS PO Last administered on 11/19/16 20: 20; Admin Dose 10 MG; Start 09/28/16 at 21:00 Tiotropium [place] (Spiriva) 1 inh DAILY INH ; Start 09/28/16 at 16:00; Status Future Hold Mupirocin (Bactroban) 1 applic BID TOP Last administered on 11/20/16 09:15; Admin Dose 1 APPLIC; Start 09/30/16 at 09:00 Diagnostic Test (Pha) (Accucheck) 1 ea 02 XX Last administered on 11/19/16 01: 45; Admin Dose 1 EA; Start 10/05/16 at 02:00 Miscellaneous Information 1 ea NOTE XX ; Start 10/04/16 at 09:00 Glucose (Glutose) 15 gm Q15M PRN PO DECREASED GLUCOSE; Start 10/04/16 at 09:00 Glucose (Glutose) 22.5 gm Q15M PRN PO DECREASED GLUCOSE; Start 10/04/16 at 09: 00 Dextrose (D50w Syringe) 25 ml Q15M PRN IV DECREASED GLUCOSE; Start 10/04/16 at 09:00 Dextrose (D50w Syringe) 50 ml Q15M PRN IV DECREASED GLUCOSE; Start 10/04/16 at 09:00 Glucagon (Glucagen) 1 mg Q15M PRN IM DECREASED GLUCOSE; Start 10/04/16 at 09:00 Glucose (Glutose) 15 gm Q15M PRN BUCCAL DECREASED GLUCOSE; Start 10/04/16 at 09 :00 Metoprolol Tartrate (Lopressor) 5 mg Q4 PRN IV HR>110 Hold SBP<100; Start 10/05 at 19:30 Montelukast Sodium (Singulair) 10 mg HS PO Last administered on 11/19/16 20:20 ; Admin Dose 10 MG; Start 10/10/16 at 21:00 Theophylline (Benji-24) 300 mg QHS PO Last administered on 11/19/16 20:21; Admin Dose 300 MG; Start 10/10/16 at 21:00 Apixaban (Eliquis) 5 mg BID PO Last administered on 11/20/16 09:14; Admin Dose 5 MG; Start 10/10/16 at 21:00 Digoxin (Digoxin) 0.125 mg DAILY@13 PO Last administered on 11/10/16 13:35; Admin Dose 0.125 MG; Start 10/12/16 at 13:00; Status Future Hold Furosemide (Lasix) 40 mg AM PO Last administered on 11/14/16 08:41; Admin Dose 40 MG; Start 10/25/16 at 09:00; Status Future Hold Amiodarone HCl (Cordarone) 200 mg BID PO Last administered on 11/20/16 09:15; Admin Dose 200 MG; Start 10/24/16 at 21:00 Salmeterol Xinafoate/ Fluticasone (Advair 250/50 Diskus) 1 inh BID INH Last administered on 11/20/16 09:13; Admin Dose 1 INH; Start 11/07/16 at 09:00 Bethanechol Chloride (Urecholine) 10 mg TID PO Last administered on 11/20/16 14:03; Admin Dose 10 MG; Start 11/14/16 at 09:00 Insulin Glargine (Lantus) 14 unit HS SC Last administered on 11/19/16 20:23; Admin Dose 14 UNIT; Start 11/15/16 at 21:00 Metoprolol Succinate 25 mg 25 mg DAILY PO Last administered on 11/20/16 09:14 ; Admin Dose 25 MG; Start 11/17/16 at 09:00 Ceftazidime/ Avibactam/Sodium Chloride (Avycaz 2/0.5/NS) 100 ml @ 50 mls/hr Q8 IVPB Last administered on 11/20/16 14:03; Admin Dose 50 MLS/HR; Start at 14:00; Stop 11/22/16 at 07:59 Lisinopril (Zestril) 5 mg DAILY PO Last administered on 11/20/16 09:14; Admin Dose 5 MG; Start 11/19/16 at 09:00 CODY BRANCH NP Nov 20, 2016 15:55
[2016-11-20] MEDS: predniSONE 1 MG TAB PO SCH (17:14)
[2016-11-20 19:44] VITALS: BP 136/72; PULSE 72; RESP 18
--- NOTE | 2016-11-20 19:54 | PN ---
DATE: 11/20/2016 CHIEF COMPLAINT: Urinary retention. SUBJECTIVE: The patient does void, but a very small amount. This afternoon he voided about 50 mL a nd the straight cath 600 mL drained. The patient was asking about in the bag that he could empty. I explained to him that he needs to have a catheter that is connected to the bag and that was bother ing him so much before, that we had to remove it. OBJECTIVE VITAL SIGNS: Temperature is 97.8, the pulse is 80, respiration 18, blood pressure 136/70. LABORATORY DATA: CBC: White count 12.2, hemoglobin 8.0, hematocrit 25.5. BUN 32, creatinine 1.69. PLAN: The patient is on urecholine 10 mg three times a day. We shall increase that and make it mg 25 mg three times a day and see if that will help him further. We will try to teach him, if he can learn, how to do in and out catheterization. Dictated By: JOSÉ DOS SANTOS/NANDO Conf#: [id number] DID#: [id number]
[2016-11-20 20:41] VITALS: BP 136/76; RESP 18
[2016-11-20] MEDS: ATORVASTATIN 10 MG TAB PO SCH (21:23)
[2016-11-20] MEDS: THEOPHYLLINE (SR) 300 MG CAP PO SCH (21:24)
[2016-11-20] MEDS: MONTELUKAST 10 MG TAB PO SCH (21:24)
[2016-11-20] MEDS: BETHANECHOL 25 MG TAB PO SCH (21:24)
[2016-11-20] MEDS: INSULIN GLARGINE [LANtus] 3 ML PEN SC SCH (21:26)
[2016-11-21] MEDS: ACCU-CHEK XX SCH (01:36)
[2016-11-21] MEDS: ALBUTEROL/IPRATROPIUM (NEB) 3 ML AMP HHN SCH ×4 (01:43→20:05)
[2016-11-21] MEDS: CEFTAZIDIME IVPB SCH ×2 (05:51→13:28)
[2016-11-21] MEDS: SOD CHLORIDE 0.9% IVPB SCH ×2 (05:51→13:28)
[2016-11-21] MEDS: AVIBACTAM IVPB SCH ×2 (05:51→13:28)
[2016-11-21] MEDS: INSULIN ASPART [NOVOLOG] 3 ML PEN SC SCH ×7 (07:35→21:00)
[2016-11-21] MEDS: LISINOPRIL 5 MG TAB PO SCH (08:35)
[2016-11-21] MEDS: ASPIRIN 81 MG TAB PO SCH (08:35)
[2016-11-21] MEDS: METOPROLOL (XL) 25 MG TAB PO SCH (08:35)
[2016-11-21] MEDS: BETHANECHOL 25 MG TAB PO SCH ×3 (08:35→21:13)
[2016-11-21] MEDS: MUPIROCIN 2% 22 GM OINT TOP SCH ×2 (08:35→21:20)
[2016-11-21] MEDS: FAMOTIDINE 20 MG TAB PO SCH ×2 (08:35→21:13)
[2016-11-21] MEDS: APIXABAN 5 MG TABLET PO SCH ×2 (08:36→21:13)
[2016-11-21] MEDS: AMIODARONE 200 MG TAB PO SCH ×2 (08:36→21:13)
[2016-11-21] MEDS: SALMETEROL/FLUTICASONE 250/50 INHA INH SCH ×2 (08:36→21:13)
[2016-11-21 08:47] VITALS: BP 136/76; RESP 18
[2016-11-21 09:27] VITALS: BP 136/73; PULSE 72; RESP 20
--- NOTE | 2016-11-21 14:30 | PN ---
Date/Time of Note Date/Time of Note DATE: 11/21/16 TIME: 14:28 Assessment/Plan VTE Prophylaxis VTE Prophylaxis Intervention: other Lines/Catheters IV Catheter Type (from Nrs): Saline Lock Urinary Cath still in place: No (striaght cath) Assessment/Plan Assessment/Plan 1. 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 2. 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 Simpson 3. COPD exacerbation, stable, neb, decrease steroid 4. facility acquired pneumonia, with ESBL E. Coli, and Lauren albicans, treated 5. Atrial fibrillation with RVR, sinus now, follow up with cardiology 6. Congestive heart failure, systolic, chronic, stable 7. Ischemic cardiomyopathy 8. CAD 9. s/p ICD, stable 10. Essential hypertension, stable 11. Dyslipidemia. Continue statin. 12. Hx of Foot Fx- stable 13. DVT prophylaxis: eliquis 14. S/P IVC filter 15. Chronic anemia, one unit PRBC 11/19/2016 Dispo: * Awaiting for placement * Patient is to also lear in and out cathetherization * Possible d/c abx today per ID * Continue supportive care Subjective 24 Hr Interval Summary Constitutional: no complaints Exam/Review of Systems Vital Signs Vitals Vital Signs Date Time Temp Pulse Resp B/P Pulse Ox O2 Delivery O2 Flow Rate FiO2 11/21/16 09:27 Nasal Cannula 3.0 11/21/16 09:27 98.0 72 20 136/73 96 Intake and Output 11/20/16 11/20/16 11/21/16 15:00 23:00 07:00 Intake Total 1420 ml 1000 ml Output Total 875 ml 700 ml Balance 545 ml 300 ml Exam GENERAL: Well-developed, fragile, elderly man in no distress. HEENT: Head atraumatic, normocephalic. Sclerae anicteric. Buccal mucosa dry. NECK: Supple. CHEST: Rise symmetrical. Breath sounds clear, diminished to bases. HEART: S1, S2. ABDOMEN: Soft, bowel sounds present. EXTREMITIES: No cyanosis. Results Result Diagram: 11/19/16 0933 11/20/16 1124 Results 24 hrs Laboratory Tests Test 11/20/16 17:02 11/21/16 01:35 11/21/16 07:44 11/21/16 11:53 Bedside Glucose 106 213 120 122 Medications Medications Current Medications IV Flush (NS 10 ml) 10 ml PRN PRN IV IV PROTOCOL Last administered on 11/11/16 08:14; Admin Dose 10 ML; Start 09/28/16 at 14:00 Ondansetron HCl (Zofran Inj) 4 mg Q6H PRN IV NAUSEA AND/OR VOMITING; Start at 15:00 Nitroglycerin (Nitroglycerin (Sl Tab) 0.4 Mg) 1 tab Q5M PRN SL CHEST PAIN; Start 09/28/16 at 15:00 Acetaminophen (Tylenol Liquid) 650 mg Q6H PRN PO PAIN LEVEL 1-3 OR FEVER Last administered on 11/13/16 05:59; Admin Dose 650 MG; Start 09/28/16 at 15:00 Acetaminophen (Tylenol Tab) 650 mg Q6H PRN PO PAIN LEVEL 1-3 OR FEVER Last administered on 11/19/16 20:21; Admin Dose 650 MG; Start 09/28/16 at 15:00 Morphine Sulfate (morphine) 2 mg Q4H PRN IV PAIN LEVEL 7-10 Last administered on 09/29/16 02:30; Admin Dose 2 MG; Start 09/28/16 at 15:00 Lorazepam (Ativan) 1 mg Q2H PRN IV ANXIETY Last administered on 10/29/16 20:56 ; Admin Dose 1 MG; Start 09/28/16 at 15:00 Docusate Sodium (Colace) 100 mg Q12H PRN PO CONSTIPATION Last administered on 08:14; Admin Dose 100 MG; Start 09/28/16 at 15:00 Famotidine (Pepcid) 20 mg Q12 PO Last administered on 11/21/16 08:35; Admin Dose 20 MG; Start 09/28/16 at 21:00 Aspirin (Aspirin) 81 mg DAILY PO Last administered on 11/21/16 08:35; Admin Dose 81 MG; Start 09/29/16 at 09:00 Atorvastatin Calcium (Lipitor) 10 mg QHS PO Last administered on 11/20/16 21: 23; Admin Dose 10 MG; Start 09/28/16 at 21:00 Tiotropium [place] (Spiriva) 1 inh DAILY INH ; Start 09/28/16 at 16:00; Status Future Hold Mupirocin (Bactroban) 1 applic BID TOP Last administered on 11/21/16 08:35; Admin Dose 1 APPLIC; Start 09/30/16 at 09:00 Diagnostic Test (Pha) (Accucheck) 1 ea 02 XX Last administered on 11/21/16 01: 36; Admin Dose 1 EA; Start 10/05/16 at 02:00 Miscellaneous Information 1 ea NOTE XX ; Start 10/04/16 at 09:00 Glucose (Glutose) 15 gm Q15M PRN PO DECREASED GLUCOSE; Start 10/04/16 at 09:00 Glucose (Glutose) 22.5 gm Q15M PRN PO DECREASED GLUCOSE; Start 10/04/16 at 09: 00 Dextrose (D50w Syringe) 25 ml Q15M PRN IV DECREASED GLUCOSE; Start 10/04/16 at 09:00 Dextrose (D50w Syringe) 50 ml Q15M PRN IV DECREASED GLUCOSE; Start 10/04/16 at 09:00 Glucagon (Glucagen) 1 mg Q15M PRN IM DECREASED GLUCOSE; Start 10/04/16 at 09:00 Glucose (Glutose) 15 gm Q15M PRN BUCCAL DECREASED GLUCOSE; Start 10/04/16 at 09 :00 Metoprolol Tartrate (Lopressor) 5 mg Q4 PRN IV HR>110 Hold SBP<100; Start 10/05 at 19:30 Montelukast Sodium (Singulair) 10 mg HS PO Last administered on 11/20/16 21:24 ; Admin Dose 10 MG; Start 10/10/16 at 21:00 Theophylline (Benji-24) 300 mg QHS PO Last administered on 11/20/16 21:24; Admin Dose 300 MG; Start 10/10/16 at 21:00 Apixaban (Eliquis) 5 mg BID PO Last administered on 11/21/16 08:36; Admin Dose 5 MG; Start 10/10/16 at 21:00 Digoxin (Digoxin) 0.125 mg DAILY@13 PO Last administered on 11/10/16 13:35; Admin Dose 0.125 MG; Start 10/12/16 at 13:00; Status Future Hold Furosemide (Lasix) 40 mg AM PO Last administered on 11/14/16 08:41; Admin Dose 40 MG; Start 10/25/16 at 09:00; Status Future Hold Amiodarone HCl (Cordarone) 200 mg BID PO Last administered on 11/21/16 08:36; Admin Dose 200 MG; Start 10/24/16 at 21:00 Salmeterol Xinafoate/ Fluticasone (Advair 250/50 Diskus) 1 inh BID INH Last administered on 11/21/16 08:36; Admin Dose 1 INH; Start 11/07/16 at 09:00 Insulin Glargine (Lantus) 14 unit HS SC Last administered on 11/20/16 21:26; Admin Dose 14 UNIT; Start 11/15/16 at 21:00 Metoprolol Succinate 25 mg 25 mg DAILY PO Last administered on 11/21/16 08:35 ; Admin Dose 25 MG; Start 11/17/16 at 09:00 Ceftazidime/ Avibactam/Sodium Chloride (Avycaz 2/0.5/NS) 100 ml @ 50 mls/hr Q8 IVPB Last administered on 11/21/16 13:28; Admin Dose 50 MLS/HR; Start at 14:00; Stop 11/22/16 at 07:59 Lisinopril (Zestril) 5 mg DAILY PO Last administered on 11/21/16 08:35; Admin Dose 5 MG; Start 11/19/16 at 09:00 Bethanechol Chloride (Urecholine) 25 mg TID PO Last administered on 11/21/16 13:22; Admin Dose 25 MG; Start 11/20/16 at 21:00 KIRSTEN FRY Nov 21, 2016 14:30
--- NOTE | 2016-11-21 15:22 | CONS ---
Date/Time of Note Date/Time of Note DATE: 11/21/16 TIME: 15:21 Assessment/Plan Assessment/Plan Additional Assessment/Plan 1. Atrial fibrillation with rapid ventricular response.-improved HR and now back in SR by ecg 11/13 - BETTER now - con't tele - HR stable 2. Congestive heart failure, systolic, acute on chronic- improved fluid status - will monitor 3. History of cardiomyopathy with decreased left ventricular ejection fraction 20% to 25% per chart biopsy- ICD in place 4. Shortness of breath- much improved. 5. Status post hypercapnic respiratory failure, status post extubation. 6. Chronic obstructive pulmonary disease. 7. Hypertension-borderline hotn today with anti-hypertensives held - stable, will follow 8. Dyslipidemia. 9. History of automatic implantable cardioverter-defibrillator with possible discharge.-s/p interrogation with ICD shock for uncontrolled rapid AF. 10. Pneumonia- Rx with antiBx 11.Positive troponin-minimal with no sig uptrend 12.UTI-Klebs 14.Bacteremia-Klebs/persistent-most recent Bld cx's negative 15.ARF-slowly improving with holding of lasix 16.Fevers - resolved Consultation Date/Type/Reason Admit Date/Time Sep 28, 2016 at 14:41 Initial Consult Date 09/28/16 Type of Consultation: ID Referring Provider: DEVON MUHAMMAD MD 24 HR Interval Summary Free Text/Dictation NO acute change - con't anti-BX, in good fluid status now ROS: No fever, no chills, no nausea, no vomiting, no diarrhea/constipation No recent weight changes No chest pain, no PND, no orthopnea No dizziness, blurred vision No thirst, no heat or cold intolerance Exam/Review of Systems Vital Signs Vitals Vital Signs Date Time Temp Pulse Resp B/P Pulse Ox O2 Delivery O2 Flow Rate FiO2 11/21/16 09:27 Nasal Cannula 3.0 11/21/16 09:27 98.0 72 20 136/73 96 Intake and Output 11/20/16 11/20/16 11/21/16 15:00 23:00 07:00 Intake Total 1420 ml 1000 ml Output Total 875 ml 700 ml Balance 545 ml 300 ml Exam General: WN/WD/NAD, AOx 2-3 HEENT: Unicetric/atraumatic/EOMI (follow commands) NECK: JVD elevated, no thyromegaly Lymph: no lymphadenopathy HEART: regular with no S3, II/ systolic murmur at apex LUNGS: Coarse sounds ABD: soft, NT, ND, +BS : Intact Neuro: non focal SKIN: chronic changes EXT: trace edema Results Result Diagram: 11/19/16 0933 11/20/16 1124 Results 24 hrs Laboratory Tests Test 11/20/16 17:02 11/21/16 01:35 11/21/16 07:44 11/21/16 11:53 Bedside Glucose 106 213 120 122 Medications Medications Current Medications IV Flush (NS 10 ml) 10 ml PRN PRN IV IV PROTOCOL Last administered on 11/11/16 08:14; Admin Dose 10 ML; Start 09/28/16 at 14:00 Ondansetron HCl (Zofran Inj) 4 mg Q6H PRN IV NAUSEA AND/OR VOMITING; Start at 15:00 Nitroglycerin (Nitroglycerin (Sl Tab) 0.4 Mg) 1 tab Q5M PRN SL CHEST PAIN; Start 09/28/16 at 15:00 Acetaminophen (Tylenol Liquid) 650 mg Q6H PRN PO PAIN LEVEL 1-3 OR FEVER Last administered on 11/13/16 05:59; Admin Dose 650 MG; Start 09/28/16 at 15:00 Acetaminophen (Tylenol Tab) 650 mg Q6H PRN PO PAIN LEVEL 1-3 OR FEVER Last administered on 11/19/16 20:21; Admin Dose 650 MG; Start 09/28/16 at 15:00 Morphine Sulfate (morphine) 2 mg Q4H PRN IV PAIN LEVEL 7-10 Last administered on 09/29/16 02:30; Admin Dose 2 MG; Start 09/28/16 at 15:00 Lorazepam (Ativan) 1 mg Q2H PRN IV ANXIETY Last administered on 10/29/16 20:56 ; Admin Dose 1 MG; Start 09/28/16 at 15:00 Docusate Sodium (Colace) 100 mg Q12H PRN PO CONSTIPATION Last administered on 08:14; Admin Dose 100 MG; Start 09/28/16 at 15:00 Famotidine (Pepcid) 20 mg Q12 PO Last administered on 11/21/16 08:35; Admin Dose 20 MG; Start 09/28/16 at 21:00 Aspirin (Aspirin) 81 mg DAILY PO Last administered on 11/21/16 08:35; Admin Dose 81 MG; Start 09/29/16 at 09:00 Atorvastatin Calcium (Lipitor) 10 mg QHS PO Last administered on 11/20/16 21: 23; Admin Dose 10 MG; Start 09/28/16 at 21:00 Tiotropium [place] (Spiriva) 1 inh DAILY INH ; Start 09/28/16 at 16:00; Status Future Hold Mupirocin (Bactroban) 1 applic BID TOP Last administered on 11/21/16 08:35; Admin Dose 1 APPLIC; Start 09/30/16 at 09:00 Diagnostic Test (Pha) (Accucheck) 1 ea 02 XX Last administered on 11/21/16 01: 36; Admin Dose 1 EA; Start 10/05/16 at 02:00 Miscellaneous Information 1 ea NOTE XX ; Start 10/04/16 at 09:00 Glucose (Glutose) 15 gm Q15M PRN PO DECREASED GLUCOSE; Start 10/04/16 at 09:00 Glucose (Glutose) 22.5 gm Q15M PRN PO DECREASED GLUCOSE; Start 10/04/16 at 09: 00 Dextrose (D50w Syringe) 25 ml Q15M PRN IV DECREASED GLUCOSE; Start 10/04/16 at 09:00 Dextrose (D50w Syringe) 50 ml Q15M PRN IV DECREASED GLUCOSE; Start 10/04/16 at 09:00 Glucagon (Glucagen) 1 mg Q15M PRN IM DECREASED GLUCOSE; Start 10/04/16 at 09:00 Glucose (Glutose) 15 gm Q15M PRN BUCCAL DECREASED GLUCOSE; Start 10/04/16 at 09 :00 Metoprolol Tartrate (Lopressor) 5 mg Q4 PRN IV HR>110 Hold SBP<100; Start 10/05 at 19:30 Montelukast Sodium (Singulair) 10 mg HS PO Last administered on 11/20/16 21:24 ; Admin Dose 10 MG; Start 10/10/16 at 21:00 Theophylline (Benji-24) 300 mg QHS PO Last administered on 11/20/16 21:24; Admin Dose 300 MG; Start 10/10/16 at 21:00 Apixaban (Eliquis) 5 mg BID PO Last administered on 11/21/16 08:36; Admin Dose 5 MG; Start 10/10/16 at 21:00 Digoxin (Digoxin) 0.125 mg DAILY@13 PO Last administered on 11/10/16 13:35; Admin Dose 0.125 MG; Start 10/12/16 at 13:00; Status Future Hold Furosemide (Lasix) 40 mg AM PO Last administered on 11/14/16 08:41; Admin Dose 40 MG; Start 10/25/16 at 09:00; Status Future Hold Amiodarone HCl (Cordarone) 200 mg BID PO Last administered on 11/21/16 08:36; Admin Dose 200 MG; Start 10/24/16 at 21:00 Salmeterol Xinafoate/ Fluticasone (Advair 250/50 Diskus) 1 inh BID INH Last administered on 11/21/16 08:36; Admin Dose 1 INH; Start 11/07/16 at 09:00 Insulin Glargine (Lantus) 14 unit HS SC Last administered on 11/20/16 21:26; Admin Dose 14 UNIT; Start 11/15/16 at 21:00 Metoprolol Succinate 25 mg 25 mg DAILY PO Last administered on 11/21/16 08:35 ; Admin Dose 25 MG; Start 11/17/16 at 09:00 Ceftazidime/ Avibactam/Sodium Chloride (Avycaz 2/0.5/NS) 100 ml @ 50 mls/hr Q8 IVPB Last administered on 11/21/16 13:28; Admin Dose 50 MLS/HR; Start at 14:00; Stop 11/22/16 at 07:59 Lisinopril (Zestril) 5 mg DAILY PO Last administered on 11/21/16 08:35; Admin Dose 5 MG; Start 11/19/16 at 09:00 Bethanechol Chloride (Urecholine) 25 mg TID PO Last administered on 11/21/16 13:22; Admin Dose 25 MG; Start 11/20/16 at 21:00 RAYSHAWN DUNN MD Nov 21, 2016 15:22
--- NOTE | 2016-11-21 16:36 | CONS ---
Date/Time of Note Date/Time of Note DATE: 11/21/16 TIME: 16:35 Assessment/Plan Assessment/Plan Chief Complaint/Hosp Course SUBJECTIVE: No events overnight, sleeping, no fevers, nad ANTIMICROBIALS: [facility] PHYSICAL EXAMINATION: GENERAL: Well-developed, fragile, elderly man in no distress. HEENT: Head atraumatic, normocephalic. Sclerae anicteric. Buccal mucosa dry. NECK: Supple. CHEST: Rise symmetrical. Breath sounds clear, diminished to bases. HEART: S1, S2. ABDOMEN: Soft, bowel sounds present. EXTREMITIES: No cyanosis. ASSESSMENT: 1. S/p sepsis 2. Multidrug resistant Klebsiella pneumoniae bacteremia 2 to #3. 3. Urinary tract infection==> s/p Pruett. 4. Urinary retention 5. Bilateral hydronephrosis. 6. Chronic obstructive pulmonary disease, status post pneumonia. 7. Coronary artery disease, history of automatic implantable cardioverter defibrillator, status post interrogation. PLAN: The patient remains stable, dc abx and observe, continue straight cath prn/ rec-s Dw staff Problems: Consultation Date/Type/Reason Admit Date/Time Sep 28, 2016 at 14:41 Initial Consult Date 09/28/16 Type of Consultation: ID Referring Provider: DEVON MUHAMMAD MD Exam/Review of Systems Vital Signs Vitals Vital Signs Date Time Temp Pulse Resp B/P Pulse Ox O2 Delivery O2 Flow Rate FiO2 11/21/16 09:27 Nasal Cannula 3.0 11/21/16 09:27 98.0 72 20 136/73 96 Intake and Output 11/20/16 11/20/16 11/21/16 15:00 23:00 07:00 Intake Total 1420 ml 1000 ml Output Total 875 ml 700 ml Balance 545 ml 300 ml Results Result Diagram: 11/19/16 0933 11/20/16 1124 Results 24 hrs Laboratory Tests Test 11/20/16 17:02 11/21/16 01:35 11/21/16 07:44 11/21/16 11:53 Bedside Glucose 106 213 120 122 Medications Medications Current Medications IV Flush (NS 10 ml) 10 ml PRN PRN IV IV PROTOCOL Last administered on 11/11/16t 08:14; Admin Dose 10 ML; Start 09/28/16 at 14:00 Ondansetron HCl (Zofran Inj) 4 mg Q6H PRN IV NAUSEA AND/OR VOMITING; Start at 15:00 Nitroglycerin (Nitroglycerin (Sl Tab) 0.4 Mg) 1 tab Q5M PRN SL CHEST PAIN; Start 09/28/16 at 15:00 Acetaminophen (Tylenol Liquid) 650 mg Q6H PRN PO PAIN LEVEL 1-3 OR FEVER Last administered on 11/13/16 05:59; Admin Dose 650 MG; Start 09/28/16 at 15:00 Acetaminophen (Tylenol Tab) 650 mg Q6H PRN PO PAIN LEVEL 1-3 OR FEVER Last administered on 11/19/16 20:21; Admin Dose 650 MG; Start 09/28/16 at 15:00 Morphine Sulfate (morphine) 2 mg Q4H PRN IV PAIN LEVEL 7-10 Last administered on 09/29/16 02:30; Admin Dose 2 MG; Start 09/28/16 at 15:00 Lorazepam (Ativan) 1 mg Q2H PRN IV ANXIETY Last administered on 10/29/16 20:56 ; Admin Dose 1 MG; Start 09/28/16 at 15:00 Docusate Sodium (Colace) 100 mg Q12H PRN PO CONSTIPATION Last administered on 08:14; Admin Dose 100 MG; Start 09/28/16 at 15:00 Famotidine (Pepcid) 20 mg Q12 PO Last administered on 11/21/16 08:35; Admin Dose 20 MG; Start 09/28/16 at 21:00 Aspirin (Aspirin) 81 mg DAILY PO Last administered on 11/21/16 08:35; Admin Dose 81 MG; Start 09/29/16 at 09:00 Atorvastatin Calcium (Lipitor) 10 mg QHS PO Last administered on 11/20/16 21: 23; Admin Dose 10 MG; Start 09/28/16 at 21:00 Tiotropium [place] (Spiriva) 1 inh DAILY INH ; Start 09/28/16 at 16:00; Status Future Hold Mupirocin (Bactroban) 1 applic BID TOP Last administered on 11/21/16 08:35; Admin Dose 1 APPLIC; Start 09/30/16 at 09:00 Diagnostic Test (Pha) (Accucheck) 1 ea 02 XX Last administered on 11/21/16 01: 36; Admin Dose 1 EA; Start 10/05/16 at 02:00 Miscellaneous Information 1 ea NOTE XX ; Start 10/04/16 at 09:00 Glucose (Glutose) 15 gm Q15M PRN PO DECREASED GLUCOSE; Start 10/04/16 at 09:00 Glucose (Glutose) 22.5 gm Q15M PRN PO DECREASED GLUCOSE; Start 10/04/16 at 09: 00 Dextrose (D50w Syringe) 25 ml Q15M PRN IV DECREASED GLUCOSE; Start 10/04/16 at 09:00 Dextrose (D50w Syringe) 50 ml Q15M PRN IV DECREASED GLUCOSE; Start 10/04/16 at 09:00 Glucagon (Glucagen) 1 mg Q15M PRN IM DECREASED GLUCOSE; Start 10/04/16 at 09:00 Glucose (Glutose) 15 gm Q15M PRN BUCCAL DECREASED GLUCOSE; Start 10/04/16 at 09 :00 Metoprolol Tartrate (Lopressor) 5 mg Q4 PRN IV HR>110 Hold SBP<100; Start 10/05 at 19:30 Montelukast Sodium (Singulair) 10 mg HS PO Last administered on 11/20/16 21:24 ; Admin Dose 10 MG; Start 10/10/16 at 21:00 Theophylline (Benji-24) 300 mg QHS PO Last administered on 11/20/16 21:24; Admin Dose 300 MG; Start 10/10/16 at 21:00 Apixaban (Eliquis) 5 mg BID PO Last administered on 11/21/16 08:36; Admin Dose 5 MG; Start 10/10/16 at 21:00 Digoxin (Digoxin) 0.125 mg DAILY@13 PO Last administered on 11/10/16 13:35; Admin Dose 0.125 MG; Start 10/12/16 at 13:00; Status Future Hold Furosemide (Lasix) 40 mg AM PO Last administered on 11/14/16 08:41; Admin Dose 40 MG; Start 10/25/16 at 09:00; Status Future Hold Amiodarone HCl (Cordarone) 200 mg BID PO Last administered on 11/21/16 08:36; Admin Dose 200 MG; Start 10/24/16 at 21:00 Salmeterol Xinafoate/ Fluticasone (Advair 250/50 Diskus) 1 inh BID INH Last administered on 11/21/16 08:36; Admin Dose 1 INH; Start 11/07/16 at 09:00 Insulin Glargine (Lantus) 14 unit HS SC Last administered on 11/20/16 21:26; Admin Dose 14 UNIT; Start 11/15/16 at 21:00 Metoprolol Succinate 25 mg 25 mg DAILY PO Last administered on 11/21/16 08:35 ; Admin Dose 25 MG; Start 11/17/16 at 09:00 Ceftazidime/ Avibactam/Sodium Chloride (Avycaz 2/0.5/NS) 100 ml @ 50 mls/hr Q8 IVPB Last administered on 11/21/16 13:28; Admin Dose 50 MLS/HR; Start at 14:00; Stop 11/22/16 at 07:59 Lisinopril (Zestril) 5 mg DAILY PO Last administered on 11/21/16 08:35; Admin Dose 5 MG; Start 11/19/16 at 09:00 Bethanechol Chloride (Urecholine) 25 mg TID PO Last administered on 11/21/16 13:22; Admin Dose 25 MG; Start 11/20/16 at 21:00 CODY BRANCH NP Nov 21, 2016 16:36
[2016-11-21] MEDS: predniSONE 1 MG TAB PO SCH (16:49)
[2016-11-21 20:21] VITALS: BP 110/55; RESP 18
[2016-11-21] MEDS: ATORVASTATIN 10 MG TAB PO SCH (21:13)
[2016-11-21] MEDS: THEOPHYLLINE (SR) 300 MG CAP PO SCH (21:13)
[2016-11-21] MEDS: MONTELUKAST 10 MG TAB PO SCH (21:13)
[2016-11-21] MEDS: INSULIN GLARGINE [LANtus] 3 ML PEN SC SCH (21:21)
[2016-11-22] MEDS: ACCU-CHEK XX SCH (02:00)
[2016-11-22] MEDS: ALBUTEROL/IPRATROPIUM (NEB) 3 ML AMP HHN SCH ×4 (02:16→20:00)
--- NOTE | 2016-11-22 04:45 | PN ---
DATE: 11/21/2016 SUBJECTIVE: Urinary retention. The patient unable to urinate, even though he stated that he does, but he urinates a very small amount, and his postvoid residual has been high, requiring intermittent catheterization. Again, the patient was supposed to try to learn and the nurses to teach him how t o do catheterization. Per the nurse's note, the patient refused. The patient states that he has no t been taught, but in talking to the nurse, they tell me this patient still requires help to cut his food because he cannot do it himself, so it is very hard for him to learn how to do self-catheteriz ation. We are going to keep on trying to help him and maybe he eventually may learn. OBJECTIVE: VITAL SIGNS: Temperature is 98.0, pulse 72, respiration 20, blood pressure 136/73. ABDOMEN: Soft. The patient last night, according to the nurse, refused to have in and out catheterization; however, this morning, straight cath drained 925 mL, and the patient voided 25 mL. Again, he refused to hav e the straight catheterization and also refused to change his pajamas, refused to shampoo his hair, refused nutritional insulin as per nurse's note. Then, later on this afternoon, he was straight cat heterized, and 325 mL drained. LABORATORY DATA: The last CBC shows a white count of 12.2, hemoglobin 8.0. MEDICATIONS: The patient is on urecholine 25 mg 3 times a day with the hope that that may help. We shall continue in and out catheterization for him every 6 hours when the volume on the bladder sc an is over 500 and try to teach him to learn how to do self-catheterization. Eventually, I think th is patient may end up having an indwelling Pruett catheter, but we will try, and when we exhaust all these options, then we could put the catheter in. Dictated By: JOSÉ DOS SANTOS/NANDO Conf#: [id number] DID#: [id number]
[2016-11-22 06:13] LABS: ADD SCAN DIFF NO
[2016-11-22 06:17] LABS: ABNORMAL IP MESSAGE 1; BASOPHIL # 0.1 10^3/ul (0.0-0.1); BASOPHILS % 0.7 % (0.0-2.0); EOSINOPHILS # 0.2 10^3/ul (0.0-0.5); EOSINOPHILS % 1.9 % (0.0-7.0); HEMOGLOBIN 9.1 g/dl (14.0-18.0); LYMPHOCYTES % 8.8 % (15.0-51.0); MEAN CORPUSCULAR HGB CONC 32.5 g/dl (32.0-37.0); MEAN CORPUSCULAR VOLUME 98.6 fl (82.0-101.0); MEAN PLATELET VOLUME 8.9 fl (7.4-10.4); PLATELET COUNT 378 10^3/UL (140-415); RED BLOOD COUNT 2.84 10^6/ul (4.70-6.10); RED CELL DISTRIBUTION WIDTH 14.6 % (11.5-14.5); WHITE BLOOD COUNT 10.9 10^3/ul (4.8-10.8)
[2016-11-22 06:29] LABS: ALBUMIN 2.9 g/dl (3.3-4.9); POTASSIUM 4.4 mmol/L (3.5-5.1)
[2016-11-22 06:32] LABS: BILIRUBIN,INDIRECT 0.1 mg/dl (0-1.1); BILIRUBIN,TOTAL 0.1 mg/dl (0.2-1.3); CALCIUM 9.3 mg/dl (8.4-10.2); CREATININE 1.6 mg/dl (0.61-1.24); PHOSPHORUS 4.1 mg/dl (2.5-4.9); TOTAL PROTEIN 5.9 g/dl (6.1-8.1)
[2016-11-22 06:33] LABS: MAGNESIUM 1.6 mg/dl (1.7-2.5)
[2016-11-22 07:00] LABS: IRON 30 ug/dl (35-150)
[2016-11-22 07:09] LABS: TOTAL IRON BINDING CAPACITY 277 ug/dl (241-421)
[2016-11-22] MEDS: INSULIN ASPART [NOVOLOG] 3 ML PEN SC SCH ×7 (08:00→21:00)
[2016-11-22 08:27] VITALS: BP 125/87; RESP 18
[2016-11-22] MEDS: SALMETEROL/FLUTICASONE 250/50 INHA INH SCH ×2 (08:49→21:11)
[2016-11-22] MEDS: ASPIRIN 81 MG TAB PO SCH (08:49)
[2016-11-22] MEDS: AMIODARONE 200 MG TAB PO SCH ×2 (08:50→21:11)
[2016-11-22] MEDS: BETHANECHOL 25 MG TAB PO SCH ×3 (08:50→21:12)
[2016-11-22] MEDS: FAMOTIDINE 20 MG TAB PO SCH ×2 (08:50→21:12)
[2016-11-22] MEDS: APIXABAN 5 MG TABLET PO SCH ×2 (08:50→21:11)
[2016-11-22] MEDS: MUPIROCIN 2% 22 GM OINT TOP SCH ×2 (08:51→21:13)
[2016-11-22] MEDS: METOPROLOL (XL) 25 MG TAB PO SCH (08:51)
[2016-11-22] MEDS: LISINOPRIL 5 MG TAB PO SCH (08:51)
--- NOTE | 2016-11-22 14:08 | PN ---
Date/Time of Note Date/Time of Note DATE: 11/22/16 TIME: 14:02 Assessment/Plan VTE Prophylaxis VTE Prophylaxis Intervention: other Lines/Catheters IV Catheter Type (from Nrs): Saline Lock Urinary Cath still in place: No (Q6 Straight Cath) Assessment/Plan Assessment/Plan 1. S/p Multidrug resistant urinary tract infection with persistent bacteremia : off abx 2. 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 COPD exacerbation, resolved, neb, 4. facility acquired pneumonia, with ESBL E. Coli, and Lauren albicans, treated 5. Paroxysmal Atrial fibrillation with RVR, sinus now, follow up with cardiology 6. Congestive heart failure, systolic, chronic, stable 7. Chronic Ischemic cardiomyopathy 8. CAD s/p stent 9. s/p AICD, stable 10. Essential hypertension, stable 11. Dyslipidemia. Continue statin. 12. Hx of Foot Fx- stable 13. DVT prophylaxis: eliquis 14. S/P IVC filter 15. Chronic anemia, one unit PRBC 11/19/2016 Dispo: * Per urology Patient is to learn in and out catheterization but this has been unsuccessful so far, Pruett? will d/w urology * Continue supportive care Subjective 24 Hr Interval Summary Constitutional: no complaints Exam/Review of Systems Vital Signs Vitals Vital Signs Date Time Temp Pulse Resp B/P Pulse Ox O2 Delivery O2 Flow Rate FiO2 11/22/16 08:31 3.0 11/22/16 08:27 98.6 61 18 125/87 92 11/22/16 02:16 Nasal Cannula Intake and Output 11/21/16 11/21/16 11/22/16 15:00 23:00 07:00 Intake Total 100 ml 1440 ml 400 ml Output Total 1250 ml 600 ml Balance 100 ml 190 ml -200 ml Exam GENERAL: , fragile, elderly man in no distress. HEENT: Head atraumatic, normocephalic. Sclerae anicteric. Buccal mucosa dry. NECK: Supple. CHEST: Rise symmetrical. Breath sounds clear, diminished to bases. HEART: S1, S2. ABDOMEN: Soft, bowel sounds present. EXTREMITIES: No cyanosis. Results Result Diagram: 11/22/16 0505 11/22/16 0505 Results 24 hrs Laboratory Tests Test 11/21/16 16:47 11/21/16 21:11 11/22/16 05:05 11/22/16 07:44 Bedside Glucose 325 H 133 91 Alanine Aminotransferase (ALT/SGPT) 21 Albumin 2.9 L Alkaline Phosphatase 59 Anion Gap 14 Aspartate Amino Transf (AST/SGOT) 12 L Basophils # 0.1 Basophils % 0.7 Blood Urea Nitrogen 28 H Calcium Level 9.3 Carbon Dioxide Level 33 H Chloride Level 94 L Creatinine 1.60 H Direct Bilirubin 0.00 Eosinophils # 0.2 Eosinophils % 1.9 Glucose Level 91 Hematocrit 28.0 L Hemoglobin 9.1 L Indirect Bilirubin 0.1 Iron Level 30 L Lymphocytes # 1.0 Lymphocytes % 8.8 L Magnesium Level 1.6 L Mean Corpuscular Hemoglobin 32.0 Mean Corpuscular Hemoglobin Concent 32.5 Mean Corpuscular Volume 98.6 Mean Platelet Volume 8.9 Monocytes # 1.0 H Monocytes % 9.0 Neutrophils # 8.0 H Neutrophils % 74.0 Nucleated Red Blood Cells # 0.0 Nucleated Red Blood Cells % 0.0 Percent Iron Saturation 11 L Phosphorus Level 4.1 Platelet Count 378 Potassium Level 4.4 Red Blood Count 2.84 L Red Cell Distribution Width 14.6 H Sodium Level 137 Total Bilirubin 0.1 L Total Iron Binding Capacity 277 Total Protein 5.9 L White Blood Count 10.9 H Test 11/22/16 11:30 Bedside Glucose 192 Medications Medications Current Medications IV Flush (NS 10 ml) 10 ml PRN PRN IV IV PROTOCOL Last administered on 11/11/16 08:14; Admin Dose 10 ML; Start 09/28/16 at 14:00 Ondansetron HCl (Zofran Inj) 4 mg Q6H PRN IV NAUSEA AND/OR VOMITING; Start at 15:00 Nitroglycerin (Nitroglycerin (Sl Tab) 0.4 Mg) 1 tab Q5M PRN SL CHEST PAIN; Start 09/28/16 at 15:00 Acetaminophen (Tylenol Liquid) 650 mg Q6H PRN PO PAIN LEVEL 1-3 OR FEVER Last administered on 11/13/16 05:59; Admin Dose 650 MG; Start 09/28/16 at 15:00 Acetaminophen (Tylenol Tab) 650 mg Q6H PRN PO PAIN LEVEL 1-3 OR FEVER Last administered on 11/19/16 20:21; Admin Dose 650 MG; Start 09/28/16 at 15:00 Morphine Sulfate (morphine) 2 mg Q4H PRN IV PAIN LEVEL 7-10 Last administered on 09/29/16 02:30; Admin Dose 2 MG; Start 09/28/16 at 15:00 Lorazepam (Ativan) 1 mg Q2H PRN IV ANXIETY Last administered on 10/29/16 20:56 ; Admin Dose 1 MG; Start 09/28/16 at 15:00 Docusate Sodium (Colace) 100 mg Q12H PRN PO CONSTIPATION Last administered on 08:14; Admin Dose 100 MG; Start 09/28/16 at 15:00 Famotidine (Pepcid) 20 mg Q12 PO Last administered on 11/22/16 08:50; Admin Dose 20 MG; Start 09/28/16 at 21:00 Aspirin (Aspirin) 81 mg DAILY PO Last administered on 11/22/16 08:49; Admin Dose 81 MG; Start 09/29/16 at 09:00 Atorvastatin Calcium (Lipitor) 10 mg QHS PO Last administered on 11/21/16 21: 13; Admin Dose 10 MG; Start 09/28/16 at 21:00 Tiotropium [place] (Spiriva) 1 inh DAILY INH ; Start 09/28/16 at 16:00; Status Future Hold Mupirocin (Bactroban) 1 applic BID TOP Last administered on 11/22/16 08:51; Admin Dose 1 APPLIC; Start 09/30/16 at 09:00 Diagnostic Test (Pha) (Accucheck) 1 ea 02 XX Last administered on 11/21/16 01: 36; Admin Dose 1 EA; Start 10/05/16 at 02:00 Miscellaneous Information 1 ea NOTE XX ; Start 10/04/16 at 09:00 Glucose (Glutose) 15 gm Q15M PRN PO DECREASED GLUCOSE; Start 10/04/16 at 09:00 Glucose (Glutose) 22.5 gm Q15M PRN PO DECREASED GLUCOSE; Start 10/04/16 at 09: 00 Dextrose (D50w Syringe) 25 ml Q15M PRN IV DECREASED GLUCOSE; Start 10/04/16 at 09:00 Dextrose (D50w Syringe) 50 ml Q15M PRN IV DECREASED GLUCOSE; Start 10/04/16 at 09:00 Glucagon (Glucagen) 1 mg Q15M PRN IM DECREASED GLUCOSE; Start 10/04/16 at 09:00 Glucose (Glutose) 15 gm Q15M PRN BUCCAL DECREASED GLUCOSE; Start 10/04/16 at 09 :00 Metoprolol Tartrate (Lopressor) 5 mg Q4 PRN IV HR>110 Hold SBP<100; Start 10/05 at 19:30 Montelukast Sodium (Singulair) 10 mg HS PO Last administered on 11/21/16 21:13 ; Admin Dose 10 MG; Start 10/10/16 at 21:00 Theophylline (Benji-24) 300 mg QHS PO Last administered on 11/21/16 21:13; Admin Dose 300 MG; Start 10/10/16 at 21:00 Apixaban (Eliquis) 5 mg BID PO Last administered on 11/22/16 08:50; Admin Dose 5 MG; Start 10/10/16 at 21:00 Digoxin (Digoxin) 0.125 mg DAILY@13 PO Last administered on 11/10/16 13:35; Admin Dose 0.125 MG; Start 10/12/16 at 13:00; Status Future Hold Furosemide (Lasix) 40 mg AM PO Last administered on 11/14/16 08:41; Admin Dose 40 MG; Start 10/25/16 at 09:00; Status Future Hold Amiodarone HCl (Cordarone) 200 mg BID PO Last administered on 11/22/16 08:50; Admin Dose 200 MG; Start 10/24/16 at 21:00 Salmeterol Xinafoate/ Fluticasone (Advair 250/50 Diskus) 1 inh BID INH Last administered on 11/22/16 08:49; Admin Dose 1 INH; Start 11/07/16 at 09:00 Insulin Glargine (Lantus) 14 unit HS SC Last administered on 11/21/16 21:21; Admin Dose 14 UNIT; Start 11/15/16 at 21:00 Metoprolol Succinate (Toprol Xl) 25 mg DAILY PO Last administered on 11/22/16 08:51; Admin Dose 25 MG; Start 11/17/16 at 09:00 Lisinopril (Zestril) 5 mg DAILY PO Last administered on 11/22/16 08:51; Admin Dose 5 MG; Start 11/19/16 at 09:00 Bethanechol Chloride (Urecholine) 25 mg TID PO Last administered on 11/22/16t 12:50; Admin Dose 25 MG; Start 11/20/16 at 21:00 KIRSTEN FRY Nov 22, 2016 14:08
[2016-11-22] MEDS: predniSONE 1 MG TAB PO SCH (17:39)
--- NOTE | 2016-11-22 18:43 | CONS ---
Date/Time of Note Date/Time of Note DATE: 11/22/16 TIME: 18:41 Assessment/Plan Assessment/Plan Additional Assessment/Plan 1. Atrial fibrillation with rapid ventricular response.-improved HR and now back in SR by ecg 11/13 - BETTER now - con't tele - HR stable - STABLe - sitting in a chair now 2. Congestive heart failure, systolic, acute on chronic- improved fluid status - will monitor 3. History of cardiomyopathy with decreased left ventricular ejection fraction 20% to 25% per chart biopsy- ICD in place 4. Shortness of breath- much improved. 5. Status post hypercapnic respiratory failure, status post extubation. 6. Chronic obstructive pulmonary disease- no wheezing now. 7. Hypertension-borderline hotn today with anti-hypertensives held - stable, will follow 8. Dyslipidemia. 9. History of automatic implantable cardioverter-defibrillator with possible discharge.-s/p interrogation with ICD shock for uncontrolled rapid AF. 10. Pneumonia- Rx with antiBx 11.Positive troponin-minimal with no sig uptrend 12.UTI-Klebs 14.Bacteremia-Klebs/persistent-most recent Bld cx's negative 15.ARF-slowly improving with holding of lasix 16.Fevers - resolved Consultation Date/Type/Reason Admit Date/Time Sep 28, 2016 at 14:41 Initial Consult Date 09/28/16 Type of Consultation: ID Referring Provider: DEVON MUHAMMAD MD 24 HR Interval Summary Free Text/Dictation No acute change - of tele - comfortable on exam. ROS: No fever, no chills, no nausea, no vomiting, no diarrhea/constipation No recent weight changes No chest pain, no PND, no orthopnea No dizziness, blurred vision No thirst, no heat or cold intolerance Exam/Review of Systems Vital Signs Vitals Vital Signs Date Time Temp Pulse Resp B/P Pulse Ox O2 Delivery O2 Flow Rate FiO2 11/22/16 08:31 3.0 11/22/16 08:27 98.6 61 18 125/87 92 11/22/16 08:00 Nasal Cannula Intake and Output 11/21/16 11/21/16 11/22/16 15:00 23:00 07:00 Intake Total 100 ml 1440 ml 400 ml Output Total 1250 ml 600 ml Balance 100 ml 190 ml -200 ml Exam General: WN/WD/NAD, AOx 2-3 HEENT: Unicetric/atraumatic/EOMI (follow commands) NECK: JVD elevated, no thyromegaly Lymph: no lymphadenopathy HEART: regular with no S3, II/ systolic murmur at apex LUNGS: Coarse sounds ABD: soft, NT, ND, +BS : Intact Neuro: non focal SKIN: chronic changes EXT: trace edema Results Result Diagram: 11/22/16 0505 11/22/16 0505 Results 24 hrs Laboratory Tests Test 11/21/16 21:11 11/22/16 05:05 11/22/16 07:44 11/22/16 11:30 Bedside Glucose 133 91 192 Alanine Aminotransferase (ALT/SGPT) 21 Albumin 2.9 L Alkaline Phosphatase 59 Anion Gap 14 Aspartate Amino Transf (AST/SGOT) 12 L Basophils # 0.1 Basophils % 0.7 Blood Urea Nitrogen 28 H Calcium Level 9.3 Carbon Dioxide Level 33 H Chloride Level 94 L Creatinine 1.60 H Direct Bilirubin 0.00 Eosinophils # 0.2 Eosinophils % 1.9 Glucose Level 91 Hematocrit 28.0 L Hemoglobin 9.1 L Indirect Bilirubin 0.1 Iron Level 30 L Lymphocytes # 1.0 Lymphocytes % 8.8 L Magnesium Level 1.6 L Mean Corpuscular Hemoglobin 32.0 Mean Corpuscular Hemoglobin Concent 32.5 Mean Corpuscular Volume 98.6 Mean Platelet Volume 8.9 Monocytes # 1.0 H Monocytes % 9.0 Neutrophils # 8.0 H Neutrophils % 74.0 Nucleated Red Blood Cells # 0.0 Nucleated Red Blood Cells % 0.0 Percent Iron Saturation 11 L Phosphorus Level 4.1 Platelet Count 378 Potassium Level 4.4 Red Blood Count 2.84 L Red Cell Distribution Width 14.6 H Sodium Level 137 Total Bilirubin 0.1 L Total Iron Binding Capacity 277 Total Protein 5.9 L White Blood Count 10.9 H Test 11/22/16 16:47 Bedside Glucose 109 Medications Medications Current Medications IV Flush (NS 10 ml) 10 ml PRN PRN IV IV PROTOCOL Last administered on 11/11/16t 08:14; Admin Dose 10 ML; Start 09/28/16 at 14:00 Ondansetron HCl (Zofran Inj) 4 mg Q6H PRN IV NAUSEA AND/OR VOMITING; Start at 15:00 Nitroglycerin (Nitroglycerin (Sl Tab) 0.4 Mg) 1 tab Q5M PRN SL CHEST PAIN; Start 09/28/16 at 15:00 Acetaminophen (Tylenol Liquid) 650 mg Q6H PRN PO PAIN LEVEL 1-3 OR FEVER Last administered on 11/13/16 05:59; Admin Dose 650 MG; Start 09/28/16 at 15:00 Acetaminophen (Tylenol Tab) 650 mg Q6H PRN PO PAIN LEVEL 1-3 OR FEVER Last administered on 11/19/16 20:21; Admin Dose 650 MG; Start 09/28/16 at 15:00 Morphine Sulfate (morphine) 2 mg Q4H PRN IV PAIN LEVEL 7-10 Last administered on 09/29/16 02:30; Admin Dose 2 MG; Start 09/28/16 at 15:00 Lorazepam (Ativan) 1 mg Q2H PRN IV ANXIETY Last administered on 10/29/16 20:56 ; Admin Dose 1 MG; Start 09/28/16 at 15:00 Docusate Sodium (Colace) 100 mg Q12H PRN PO CONSTIPATION Last administered on 08:14; Admin Dose 100 MG; Start 09/28/16 at 15:00 Famotidine (Pepcid) 20 mg Q12 PO Last administered on 11/22/16 08:50; Admin Dose 20 MG; Start 09/28/16 at 21:00 Aspirin (Aspirin) 81 mg DAILY PO Last administered on 11/22/16 08:49; Admin Dose 81 MG; Start 09/29/16 at 09:00 Atorvastatin Calcium (Lipitor) 10 mg QHS PO Last administered on 11/21/16 21: 13; Admin Dose 10 MG; Start 09/28/16 at 21:00 Tiotropium [place] (Spiriva) 1 inh DAILY INH ; Start 09/28/16 at 16:00; Status Future Hold Mupirocin (Bactroban) 1 applic BID TOP Last administered on 11/22/16 08:51; Admin Dose 1 APPLIC; Start 09/30/16 at 09:00 Diagnostic Test (Pha) (Accucheck) 1 ea 02 XX Last administered on 11/21/16 01: 36; Admin Dose 1 EA; Start 10/05/16 at 02:00 Miscellaneous Information 1 ea NOTE XX ; Start 10/04/16 at 09:00 Glucose (Glutose) 15 gm Q15M PRN PO DECREASED GLUCOSE; Start 10/04/16 at 09:00 Glucose (Glutose) 22.5 gm Q15M PRN PO DECREASED GLUCOSE; Start 10/04/16 at 09: 00 Dextrose (D50w Syringe) 25 ml Q15M PRN IV DECREASED GLUCOSE; Start 10/04/16 at 09:00 Dextrose (D50w Syringe) 50 ml Q15M PRN IV DECREASED GLUCOSE; Start 10/04/16 at 09:00 Glucagon (Glucagen) 1 mg Q15M PRN IM DECREASED GLUCOSE; Start 10/04/16 at 09:00 Glucose (Glutose) 15 gm Q15M PRN BUCCAL DECREASED GLUCOSE; Start 10/04/16 at 09 :00 Metoprolol Tartrate (Lopressor) 5 mg Q4 PRN IV HR>110 Hold SBP<100; Start 10/05 at 19:30 Montelukast Sodium (Singulair) 10 mg HS PO Last administered on 11/21/16 21:13 ; Admin Dose 10 MG; Start 10/10/16 at 21:00 Theophylline (Benji-24) 300 mg QHS PO Last administered on 11/21/16 21:13; Admin Dose 300 MG; Start 10/10/16 at 21:00 Apixaban (Eliquis) 5 mg BID PO Last administered on 11/22/16 08:50; Admin Dose 5 MG; Start 10/10/16 at 21:00 Digoxin (Digoxin) 0.125 mg DAILY@13 PO Last administered on 11/10/16 13:35; Admin Dose 0.125 MG; Start 10/12/16 at 13:00; Status Future Hold Furosemide (Lasix) 40 mg AM PO Last administered on 11/14/16 08:41; Admin Dose 40 MG; Start 10/25/16 at 09:00; Status Future Hold Amiodarone HCl (Cordarone) 200 mg BID PO Last administered on 11/22/16 08:50; Admin Dose 200 MG; Start 10/24/16 at 21:00 Salmeterol Xinafoate/ Fluticasone (Advair 250/50 Diskus) 1 inh BID INH Last administered on 11/22/16 08:49; Admin Dose 1 INH; Start 11/07/16 at 09:00 Insulin Glargine (Lantus) 14 unit HS SC Last administered on 11/21/16 21:21; Admin Dose 14 UNIT; Start 11/15/16 at 21:00 Metoprolol Succinate (Toprol Xl) 25 mg DAILY PO Last administered on 11/22/16 08:51; Admin Dose 25 MG; Start 11/17/16 at 09:00 Lisinopril (Zestril) 5 mg DAILY PO Last administered on 11/22/16 08:51; Admin Dose 5 MG; Start 11/19/16 at 09:00 Bethanechol Chloride (Urecholine) 25 mg TID PO Last administered on 11/22/16 12:50; Admin Dose 25 MG; Start 11/20/16 at 21:00 RAYSHAWN DUNN MD Nov 22, 2016 18:43
[2016-11-22 19:30] VITALS: BP 105/70; RESP 18
[2016-11-22] MEDS: THEOPHYLLINE (SR) 300 MG CAP PO SCH (21:11)
[2016-11-22] MEDS: ATORVASTATIN 10 MG TAB PO SCH (21:11)
[2016-11-22] MEDS: MONTELUKAST 10 MG TAB PO SCH (21:12)
[2016-11-22] MEDS: INSULIN GLARGINE [LANtus] 3 ML PEN SC SCH (21:17)
[2016-11-22] MEDS: ALBUTEROL/IPRATROPIUM (NEB) 3 ML AMP HHN PRN (21:22)
[2016-11-23] MEDS ORDERED: MAGNESIUM SULFATE 2 GM/50 ML 50 ML IVPB ONE
[2016-11-23] MEDS: ALBUTEROL/IPRATROPIUM (NEB) 3 ML AMP HHN SCH ×4 (01:56→19:30)
[2016-11-23] MEDS: ACCU-CHEK XX SCH (02:00)
[2016-11-23 06:31] LABS: ADD SCAN DIFF NO
[2016-11-23 06:51] LABS: ALBUMIN 2.9 g/dl (3.3-4.9); POTASSIUM 4.3 mmol/L (3.5-5.1)
[2016-11-23 06:52] LABS: ABNORMAL IP MESSAGE 1; BASOPHIL # 0.1 10^3/ul (0.0-0.1); BASOPHILS % 0.5 % (0.0-2.0); EOSINOPHILS # 0.2 10^3/ul (0.0-0.5); EOSINOPHILS % 1.6 % (0.0-7.0); HEMATOCRIT 26.6 % (42.0-52.0); HEMOGLOBIN 8.6 g/dl (14.0-18.0); LYMPHOCYTES % 8.5 % (15.0-51.0); MEAN CORPUSCULAR HEMOGLOBIN 31.6 pg (29.0-33.0); MEAN CORPUSCULAR HGB CONC 32.3 g/dl (32.0-37.0); MEAN CORPUSCULAR VOLUME 97.8 fl (82.0-101.0); MEAN PLATELET VOLUME 8.7 fl (7.4-10.4); MONOCYTE # 1.1 10^3/ul (0.3-0.9); MONOCYTES % 9.1 % (0.0-11.0); NEUTROPHIL # 8.7 10^3/ul (1.6-7.5); NEUTROPHILS % 74.1 % (39.0-77.0); PLATELET COUNT 388 10^3/UL (140-415); RED BLOOD COUNT 2.72 10^6/ul (4.70-6.10); RED CELL DISTRIBUTION WIDTH 14.6 % (11.5-14.5); WHITE BLOOD COUNT 11.7 10^3/ul (4.8-10.8)
[2016-11-23 06:53] LABS: CREATININE 1.39 mg/dl (0.61-1.24)
[2016-11-23 06:54] LABS: CALCIUM 9.2 mg/dl (8.4-10.2); PHOSPHORUS 4.3 mg/dl (2.5-4.9)
[2016-11-23] MEDS: INSULIN ASPART [NOVOLOG] 3 ML PEN SC SCH ×7 (07:35→21:00)
[2016-11-23 07:47] VITALS: BP 16/64; RESP 18
[2016-11-23 08:45] VITALS: BP 140/70; PULSE 72; RESP 18
[2016-11-23] MEDS: SALMETEROL/FLUTICASONE 250/50 INHA INH SCH ×2 (11:57→21:22)
[2016-11-23] MEDS: ASPIRIN 81 MG TAB PO SCH (11:58)
[2016-11-23] MEDS: FAMOTIDINE 20 MG TAB PO SCH ×2 (11:58→21:23)
[2016-11-23] MEDS: LISINOPRIL 5 MG TAB PO SCH (11:59)
[2016-11-23] MEDS: APIXABAN 5 MG TABLET PO SCH ×2 (11:59→21:23)
[2016-11-23] MEDS: BETHANECHOL 25 MG TAB PO SCH ×3 (12:00→21:24)
[2016-11-23] MEDS: AMIODARONE 200 MG TAB PO SCH ×2 (12:00→21:23)
[2016-11-23] MEDS: METOPROLOL (XL) 25 MG TAB PO SCH (12:01)
[2016-11-23] MEDS: MUPIROCIN 2% 22 GM OINT TOP SCH ×2 (12:01→21:29)
[2016-11-23] MEDS: SOD FERRIC GLUC COMPLX 125 MG in SOD CHLORIDE 0.9% 100 ML IVPB SCH (12:34)
--- NOTE | 2016-11-23 13:08 | CONS ---
Date/Time of Note Date/Time of Note DATE: 11/23/16 TIME: 13:06 Assessment/Plan Assessment/Plan Chief Complaint/Hosp Course IMPRESSION: 1. Atrial fibrillation with rapid ventricular response.-improved HR and now back in SR by ecg 11/20 2. Congestive heart failure, systolic, acute on chronic. 3. History of cardiomyopathy with decreased left ventricular ejection fraction 20% to 25% per chart biopsy. 4. Shortness of breath. 5. Status post hypercapnic respiratory failure, status post extubation. 6. Chronic obstructive pulmonary disease. 7. Hypertension-borderline hotn today with anti-hypertensives held 8. Dyslipidemia. 9. History of automatic implantable cardioverter-defibrillator with possible discharge.-s/p interrogation with ICD shock for uncontrolled rapid AF. 10. Pneumonia. 11.Positive troponin-minimal with no sig uptrend 12.UTI-Klebs 14.Bacteremia-Klebs/persistent-most recent Bld cx's negative 15.ARF-slowly improving 16.Fevers Recc -Tele -Continue asa/Eliquis -ACEI/BB as tolerated at current doses -Continue to hold digoxin in setting of ARF and well controled heart rates although digoxin level now down -Continue statin -Follow volume status and will continue hold lasix and follow volume status/plaster molder closely -Continue abx's and f/u cx data and -awaiting placement Problems: Consultation Date/Type/Reason Admit Date/Time Sep 28, 2016 at 14:41 Initial Consult Date 09/28/16 Type of Consultation: Cardiology Reason for Consultation Cardiomyopathy/AF/ICD discharge Referring Provider: DEVON MUHAMMAD MD Exam/Review of Systems Vital Signs Vitals Vital Signs Date Time Temp Pulse Resp B/P Pulse Ox O2 Delivery O2 Flow Rate FiO2 11/23/16 09:01 65 20 96 Nasal Cannula 3.0 11/23/16 08:45 140/70 11/23/16 07:47 98.7 Intake and Output 11/22/16 11/22/16 11/23/16 15:00 23:00 07:00 Intake Total 600 ml 500 ml Output Total 800 ml 950 ml 450 ml Balance -800 ml -350 ml 50 ml Exam Review of Systems: CONSTITUTIONAL: No fevers, chills. PULMONARY: No sob CARDIOVASCULAR: No chest pain/palpitations GASTROINTESTINAL: No nausea/vomiting. GENITOURINARY: No hematuria/dysuria. MUSCULOSKELETAL: No myagias/arthalgias. PSYCHIATRIC: The patient denies depression. NEUROLOGIC: No weakness Constitutional: alert, oriented Psych: no complaints Head: normocephalic ENMT: mucosa pink and moist Neck: jvd (9 cm water), supple Respiratory: clear to auscultation Cardiovascular: regular rate and rhythm Gastrointestinal: non-tender, soft Musculoskeletal: muscle tone (normal) Extremities: edema (none) Neurological: other (No focal deficits) Results Result Diagram: 11/23/16 0545 11/23/16 0545 Results 24 hrs Laboratory Tests Test 11/22/16 16:47 11/22/16 21:16 11/23/16 05:45 11/23/16 11:56 Bedside Glucose 109 140 122 Albumin 2.9 L Anion Gap 13 Basophils # 0.1 Basophils % 0.5 Blood Urea Nitrogen 28 H Calcium Level 9.2 Carbon Dioxide Level 32 H Chloride Level 95 L Creatinine 1.39 H Eosinophils # 0.2 Eosinophils % 1.6 Glucose Level 89 Hematocrit 26.6 L Hemoglobin 8.6 L Lymphocytes # 1.0 Lymphocytes % 8.5 L Magnesium Level 2.3 Mean Corpuscular Hemoglobin 31.6 Mean Corpuscular Hemoglobin Concent 32.3 Mean Corpuscular Volume 97.8 Mean Platelet Volume 8.7 Monocytes # 1.1 H Monocytes % 9.1 Neutrophils # 8.7 H Neutrophils % 74.1 Nucleated Red Blood Cells # 0.0 Nucleated Red Blood Cells % 0.0 Phosphorus Level 4.3 Platelet Count 388 Potassium Level 4.3 Red Blood Count 2.72 L Red Cell Distribution Width 14.6 H Sodium Level 136 White Blood Count 11.7 H Medications Medications Current Medications IV Flush (NS 10 ml) 10 ml PRN PRN IV IV PROTOCOL Last administered on 11/11/16 08:14; Admin Dose 10 ML; Start 09/28/16 at 14:00 Ondansetron HCl (Zofran Inj) 4 mg Q6H PRN IV NAUSEA AND/OR VOMITING; Start at 15:00 Nitroglycerin (Nitroglycerin (Sl Tab) 0.4 Mg) 1 tab Q5M PRN SL CHEST PAIN; Start 09/28/16 at 15:00 Acetaminophen (Tylenol Liquid) 650 mg Q6H PRN PO PAIN LEVEL 1-3 OR FEVER Last administered on 11/13/16 05:59; Admin Dose 650 MG; Start 09/28/16 at 15:00 Acetaminophen (Tylenol Tab) 650 mg Q6H PRN PO PAIN LEVEL 1-3 OR FEVER Last administered on 11/19/16 20:21; Admin Dose 650 MG; Start 09/28/16 at 15:00 Morphine Sulfate (morphine) 2 mg Q4H PRN IV PAIN LEVEL 7-10 Last administered on 09/29/16 02:30; Admin Dose 2 MG; Start 09/28/16 at 15:00 Lorazepam (Ativan) 1 mg Q2H PRN IV ANXIETY Last administered on 10/29/16 20:56 ; Admin Dose 1 MG; Start 09/28/16 at 15:00 Docusate Sodium (Colace) 100 mg Q12H PRN PO CONSTIPATION Last administered on 08:14; Admin Dose 100 MG; Start 09/28/16 at 15:00 Famotidine (Pepcid) 20 mg Q12 PO Last administered on 11/23/16 11:58; Admin Dose 20 MG; Start 09/28/16 at 21:00 Aspirin (Aspirin) 81 mg DAILY PO Last administered on 11/23/16 11:58; Admin Dose 81 MG; Start 09/29/16 at 09:00 Atorvastatin Calcium (Lipitor) 10 mg QHS PO Last administered on 11/22/16 21: 11; Admin Dose 10 MG; Start 09/28/16 at 21:00 Tiotropium [place] (Spiriva) 1 inh DAILY INH ; Start 09/28/16 at 16:00; Status Future Hold Mupirocin (Bactroban) 1 applic BID TOP Last administered on 11/23/16 12:01; Admin Dose 1 APPLIC; Start 09/30/16 at 09:00 Diagnostic Test (Pha) (Accucheck) 1 ea 02 XX Last administered on 11/21/16 01: 36; Admin Dose 1 EA; Start 10/05/16 at 02:00 Miscellaneous Information 1 ea NOTE XX ; Start 10/04/16 at 09:00 Glucose (Glutose) 15 gm Q15M PRN PO DECREASED GLUCOSE; Start 10/04/16 at 09:00 Glucose (Glutose) 22.5 gm Q15M PRN PO DECREASED GLUCOSE; Start 10/04/16 at 09: 00 Dextrose (D50w Syringe) 25 ml Q15M PRN IV DECREASED GLUCOSE; Start 10/04/16 at 09:00 Dextrose (D50w Syringe) 50 ml Q15M PRN IV DECREASED GLUCOSE; Start 10/04/16 at 09:00 Glucagon (Glucagen) 1 mg Q15M PRN IM DECREASED GLUCOSE; Start 10/04/16 at 09:00 Glucose (Glutose) 15 gm Q15M PRN BUCCAL DECREASED GLUCOSE; Start 10/04/16 at 09 :00 Metoprolol Tartrate (Lopressor) 5 mg Q4 PRN IV HR>110 Hold SBP<100; Start 10/05 at 19:30 Montelukast Sodium (Singulair) 10 mg HS PO Last administered on 11/22/16 21:12 ; Admin Dose 10 MG; Start 10/10/16 at 21:00 Theophylline (Benji-24) 300 mg QHS PO Last administered on 11/22/16 21:11; Admin Dose 300 MG; Start 10/10/16 at 21:00 Apixaban (Eliquis) 5 mg BID PO Last administered on 11/23/16 11:59; Admin Dose 5 MG; Start 10/10/16 at 21:00 Digoxin (Digoxin) 0.125 mg DAILY@13 PO Last administered on 11/10/16 13:35; Admin Dose 0.125 MG; Start 10/12/16 at 13:00; Status Future Hold Furosemide (Lasix) 40 mg AM PO Last administered on 11/14/16 08:41; Admin Dose 40 MG; Start 10/25/16 at 09:00; Status Future Hold Amiodarone HCl (Cordarone) 200 mg BID PO Last administered on 11/23/16 12:00; Admin Dose 200 MG; Start 10/24/16 at 21:00 Salmeterol Xinafoate/ Fluticasone (Advair 250/50 Diskus) 1 inh BID INH Last administered on 11/23/16 11:57; Admin Dose 1 INH; Start 11/07/16 at 09:00 Insulin Glargine (Lantus) 14 unit HS SC Last administered on 11/22/16 21:17; Admin Dose 14 UNIT; Start 11/15/16 at 21:00 Metoprolol Succinate (Toprol Xl) 25 mg DAILY PO Last administered on 11/23/16 12:01; Admin Dose 25 MG; Start 11/17/16 at 09:00 Lisinopril (Zestril) 5 mg DAILY PO Last administered on 11/23/16 11:59; Admin Dose 5 MG; Start 11/19/16 at 09:00 Bethanechol Chloride 25 mg 25 mg TID PO Last administered on 11/23/16 12:00; Admin Dose 25 MG; Start 11/20/16 at 21:00 Ferric Sodium Gluconate Complex/ Sodium Chloride (Ferrlecit/NS) 110 ml @ 110 mls/hr Q24H IVPB Last administered on 11/23/16 12:34; Admin Dose 110 MLS/HR; Start 11/23/16 at 09:00; Stop 11/27/16 at 09:59 СВЕТЛАНА PADRON 20, 2017 13:08
--- NOTE | 2016-11-23 14:05 | PN ---
Date/Time of Note Date/Time of Note DATE: 11/23/16 TIME: 14:04 Assessment/Plan VTE Prophylaxis VTE Prophylaxis Intervention: other (eliquis) Lines/Catheters IV [facility] [place] Urinary Cath still in place: No (Q6 straight cath) Assessment/Plan Assessment/Plan 1. 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 on avycaz 2. 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 Simpson 3. COPD exacerbation, stable, neb, decrease steroid 4. facility acquired pneumonia, with ESBL E. Coli, and Lauren albicans, treated 5. Atrial fibrillation with RVR, sinus now, follow up with cardiology 6. Congestive heart failure, systolic, chronic, stable 7. Ischemic cardiomyopathy 8. CAD 9. s/p ICD, stable 10. Essential hypertension, stable 11. Dyslipidemia. Continue statin. 12. Hx of Foot Fx- stable 13. DVT prophylaxis: eliquis 14. S/P IVC filter 15. Chronic anemia, one unit PRBC 11/19/2016 16. Awaiting for placemen Subjective 24 Hr Interval Summary Free Text/Dictation no event, still needs in and out catheter Exam/Review of Systems Vital Signs Vitals Vital Signs Date Time Temp Pulse Resp B/P Pulse Ox O2 Delivery O2 Flow Rate FiO2 11/23/16 09:01 65 20 96 Nasal Cannula 3.0 11/23/16 08:45 140/70 11/23/16 07:47 98.7 Intake and Output 11/22/16 11/22/16 11/23/16 14:59 22:59 06:59 Intake Total 600 ml 500 ml Output Total 800 ml 950 ml 450 ml Balance -800 ml -350 ml 50 ml Exam Constitutional: alert, oriented, well developed Psych: nl mood/affect, no complaints Head: atraumatic, normocephalic Eyes: EOMI, PERRL, nl conjunctiva, nl lids ENMT: nl external ears & nose, nl lips & teeth, nl nasal mucosa & septum Neck: non-tender, supple Respiratory: clear to auscultation, normal air movement, No congested cough, No crackles/rales, No diminished breath sounds, No intercostal retraction, No labored breathing, No other, No respirations, No tactile fremitus, No wheezing Cardiovascular: nl pulses, regular rate and rhythm, No S3, No S4, No bruits, No diastolic murmur, No edema, No gallop, No irregular rhythm, No jugular venous distention (JVD), No murmurs/extra sounds, No other, No rub, No systolic murmur Gastrointestinal: nl liver, spleen, non-tender, soft, No ascites, No bowel sounds, No distended, No firm, No hepatomegaly, No mass , No other, No rebound or guarding, No splenomegaly, No surgical scars, No tender Musculoskeletal: nl extremities to inspection Extremities: cyanosis, normal pulses Neurological: EARLY CHILDHOOD ASSOCIATE II-XII intact, nl mental status, nl speech, nl strength Skin: nl turgor Lymph: nl lymph nodes Results Result Diagram: 11/23/16 0545 11/23/16 0545 Results 24 hrs Laboratory Tests Test 11/22/16 16:47 11/22/16 21:16 11/23/16 05:45 11/23/16 11:56 Bedside Glucose 109 140 122 Albumin 2.9 L Anion Gap 13 Basophils # 0.1 Basophils % 0.5 Blood Urea Nitrogen 28 H Calcium Level 9.2 Carbon Dioxide Level 32 H Chloride Level 95 L Creatinine 1.39 H Eosinophils # 0.2 Eosinophils % 1.6 Glucose Level 89 Hematocrit 26.6 L Hemoglobin 8.6 L Lymphocytes # 1.0 Lymphocytes % 8.5 L Magnesium Level 2.3 Mean Corpuscular Hemoglobin 31.6 Mean Corpuscular Hemoglobin Concent 32.3 Mean Corpuscular Volume 97.8 Mean Platelet Volume 8.7 Monocytes # 1.1 H Monocytes % 9.1 Neutrophils # 8.7 H Neutrophils % 74.1 Nucleated Red Blood Cells # 0.0 Nucleated Red Blood Cells % 0.0 Phosphorus Level 4.3 Platelet Count 388 Potassium Level 4.3 Red Blood Count 2.72 L Red Cell Distribution Width 14.6 H Sodium Level 136 White Blood Count 11.7 H Medications Medications Current Medications IV Flush (NS 10 ml) 10 ml PRN PRN IV IV PROTOCOL Last administered on 11/11/16t 08:14; Admin Dose 10 ML; Start 09/28/16 at 14:00 Ondansetron HCl (Zofran Inj) 4 mg Q6H PRN IV NAUSEA AND/OR VOMITING; Start at 15:00 Nitroglycerin (Nitroglycerin (Sl Tab) 0.4 Mg) 1 tab Q5M PRN SL CHEST PAIN; Start 09/28/16 at 15:00 Acetaminophen (Tylenol Liquid) 650 mg Q6H PRN PO PAIN LEVEL 1-3 OR FEVER Last administered on 11/13/16 05:59; Admin Dose 650 MG; Start 09/28/16 at 15:00 Acetaminophen (Tylenol Tab) 650 mg Q6H PRN PO PAIN LEVEL 1-3 OR FEVER Last administered on 11/19/16 20:21; Admin Dose 650 MG; Start 09/28/16 at 15:00 Morphine Sulfate (morphine) 2 mg Q4H PRN IV PAIN LEVEL 7-10 Last administered on 09/29/16 02:30; Admin Dose 2 MG; Start 09/28/16 at 15:00 Lorazepam (Ativan) 1 mg Q2H PRN IV ANXIETY Last administered on 10/29/16 20:56 ; Admin Dose 1 MG; Start 09/28/16 at 15:00 Docusate Sodium (Colace) 100 mg Q12H PRN PO CONSTIPATION Last administered on 08:14; Admin Dose 100 MG; Start 09/28/16 at 15:00 Famotidine (Pepcid) 20 mg Q12 PO Last administered on 11/23/16 11:58; Admin Dose 20 MG; Start 09/28/16 at 21:00 Aspirin (Aspirin) 81 mg DAILY PO Last administered on 11/23/16 11:58; Admin Dose 81 MG; Start 09/29/16 at 09:00 Atorvastatin Calcium (Lipitor) 10 mg QHS PO Last administered on 11/22/16 21: 11; Admin Dose 10 MG; Start 09/28/16 at 21:00 Tiotropium [place] (Spiriva) 1 inh DAILY INH ; Start 09/28/16 at 16:00; Status Future Hold Mupirocin (Bactroban) 1 applic BID TOP Last administered on 11/23/16 12:01; Admin Dose 1 APPLIC; Start 09/30/16 at 09:00 Diagnostic Test (Pha) (Accucheck) 1 ea 02 XX Last administered on 11/21/16 01: 36; Admin Dose 1 EA; Start 10/05/16 at 02:00 Miscellaneous Information 1 ea NOTE XX ; Start 10/04/16 at 09:00 Glucose (Glutose) 15 gm Q15M PRN PO DECREASED GLUCOSE; Start 10/04/16 at 09:00 Glucose (Glutose) 22.5 gm Q15M PRN PO DECREASED GLUCOSE; Start 10/04/16 at 09: 00 Dextrose (D50w Syringe) 25 ml Q15M PRN IV DECREASED GLUCOSE; Start 10/04/16 at 09:00 Dextrose (D50w Syringe) 50 ml Q15M PRN IV DECREASED GLUCOSE; Start 10/04/16 at 09:00 Glucagon (Glucagen) 1 mg Q15M PRN IM DECREASED GLUCOSE; Start 10/04/16 at 09:00 Glucose (Glutose) 15 gm Q15M PRN BUCCAL DECREASED GLUCOSE; Start 10/04/16 at 09 :00 Metoprolol Tartrate (Lopressor) 5 mg Q4 PRN IV HR>110 Hold SBP<100; Start 10/05 at 19:30 Montelukast Sodium (Singulair) 10 mg HS PO Last administered on 11/22/16 21:12 ; Admin Dose 10 MG; Start 10/10/16 at 21:00 Theophylline (Benji-24) 300 mg QHS PO Last administered on 11/22/16 21:11; Admin Dose 300 MG; Start 10/10/16 at 21:00 Apixaban (Eliquis) 5 mg BID PO Last administered on 11/23/16 11:59; Admin Dose 5 MG; Start 10/10/16 at 21:00 Digoxin (Digoxin) 0.125 mg DAILY@13 PO Last administered on 11/10/16 13:35; Admin Dose 0.125 MG; Start 10/12/16 at 13:00; Status Future Hold Furosemide (Lasix) 40 mg AM PO Last administered on 11/14/16 08:41; Admin Dose 40 MG; Start 10/25/16 at 09:00; Status Future Hold Amiodarone HCl (Cordarone) 200 mg BID PO Last administered on 11/23/16 12:00; Admin Dose 200 MG; Start 10/24/16 at 21:00 Salmeterol Xinafoate/ Fluticasone (Advair 250/50 Diskus) 1 inh BID INH Last administered on 11/23/16 11:57; Admin Dose 1 INH; Start 11/07/16 at 09:00 Insulin Glargine (Lantus) 14 unit HS SC Last administered on 11/22/16 21:17; Admin Dose 14 UNIT; Start 11/15/16 at 21:00 Metoprolol Succinate (Toprol Xl) 25 mg DAILY PO Last administered on 11/23/16 12:01; Admin Dose 25 MG; Start 11/17/16 at 09:00 Lisinopril (Zestril) 5 mg DAILY PO Last administered on 11/23/16 11:59; Admin Dose 5 MG; Start 11/19/16 at 09:00 Bethanechol Chloride 25 mg 25 mg TID PO Last administered on 11/23/16 12:00; Admin Dose 25 MG; Start 11/20/16 at 21:00 Ferric Sodium Gluconate Complex/ Sodium Chloride (Ferrlecit/NS) 110 ml @ 110 mls/hr Q24H IVPB Last administered on 11/23/16 12:34; Admin Dose 110 MLS/HR; Start 11/23/16 at 09:00; Stop 11/27/16 at 09:59 FUNMI MEZA MD Nov 23, 2016 14:05
[2016-11-23] MEDS: morphine 2 MG INJ IV PRN (16:08)
[2016-11-23] MEDS: predniSONE 1 MG TAB PO SCH (17:48)
[2016-11-23 20:50] VITALS: BP 140/59; RESP 23
[2016-11-23] MEDS: MONTELUKAST 10 MG TAB PO SCH (21:23)
[2016-11-23] MEDS: ATORVASTATIN 10 MG TAB PO SCH (21:23)
[2016-11-23] MEDS: THEOPHYLLINE (SR) 300 MG CAP PO SCH (21:24)
[2016-11-23] MEDS: INSULIN GLARGINE [LANtus] 3 ML PEN SC SCH (21:25)
[2016-11-24] MEDS: ACCU-CHEK XX SCH ×2 (02:00→20:32)
[2016-11-24] MEDS: ALBUTEROL/IPRATROPIUM (NEB) 3 ML AMP HHN SCH ×4 (02:37→20:59)
[2016-11-24 06:19] LABS: ABNORMAL IP MESSAGE 1; ADD SCAN DIFF NO; BASOPHIL # 0.1 10^3/ul (0.0-0.1); BASOPHILS % 0.4 % (0.0-2.0); EOSINOPHILS # 0.2 10^3/ul (0.0-0.5); EOSINOPHILS % 1.4 % (0.0-7.0); HEMATOCRIT 26.4 % (42.0-52.0); HEMOGLOBIN 8.2 g/dl (14.0-18.0); LYMPHOCYTES # 0.9 10^3/ul (0.8-2.9); MEAN CORPUSCULAR HEMOGLOBIN 31.2 pg (29.0-33.0); MEAN CORPUSCULAR HGB CONC 31.1 g/dl (32.0-37.0); MEAN CORPUSCULAR VOLUME 100.4 fl (82.0-101.0); MEAN PLATELET VOLUME 8.6 fl (7.4-10.4); MONOCYTES % 8.1 % (0.0-11.0); NEUTROPHIL # 8.9 10^3/ul (1.6-7.5); NEUTROPHILS % 75.7 % (39.0-77.0); PLATELET COUNT 369 10^3/UL (140-415); RED BLOOD COUNT 2.63 10^6/ul (4.70-6.10); RED CELL DISTRIBUTION WIDTH 14.8 % (11.5-14.5); WHITE BLOOD COUNT 11.8 10^3/ul (4.8-10.8)
[2016-11-24 07:33] VITALS: BP 112/55; RESP 18
[2016-11-24 07:40] LABS: ALBUMIN 2.9 g/dl (3.3-4.9)
[2016-11-24 07:41] LABS: POTASSIUM 4.6 mmol/L (3.5-5.1)
[2016-11-24 07:43] LABS: CREATININE 1.31 mg/dl (0.61-1.24)
[2016-11-24 07:44] LABS: CALCIUM 9.1 mg/dl (8.4-10.2); PHOSPHORUS 4.3 mg/dl (2.5-4.9)
--- NOTE | 2016-11-24 07:57 | PN ---
DATE: 11/23/2016 SUBJECTIVE: Urinary retention. The patient, according to the nurse, has been refusing to be cathet erized, and he is very olmstead; however, when I ask him, he said "I never refused anything." But it l ooks like if they come in to see him while he is sleeping or eating, then he does not like that and then he probably refuses. At the present, he said he just urinated and therefore is asking about a leg bag. I again explained to him what that is and that he would need to have a Pruett catheter and the Pruett catheter has to stay in and then connect it to a leg bag. Since he keeps asking about it, we will demonstrate it to him. We will put a Prutet and connect it to a leg bag. OBJECTIVE VITAL SIGNS: His temperature is 98.7, pulse is 66, respiration is 22, blood pressure 140/70. LABORATORY DATA: CBC shows a white count of 11.7, hemoglobin 8.6, hematocrit 26.6. BUN 28, creatin ine 1.39, sodium 136, potassium 4.3, chloride 95, CO2 32. IMPRESSION: Urinary retention. PLAN: To insert a Pruett catheter and connect it to a leg bag and see if he tolerates that and learn s how to empty it. If he does, then we will put the Pruett and change it every month or earlier if n eeded. Dictated By: JOSÉ DOS SANTOS/NANDO Conf#: [id number] DID#: [id number]
[2016-11-24] MEDS: INSULIN ASPART [NOVOLOG] 3 ML PEN SC SCH ×7 (08:00→20:30)
[2016-11-24] MEDS: FAMOTIDINE 20 MG TAB PO SCH ×2 (09:19→20:30)
[2016-11-24] MEDS: SALMETEROL/FLUTICASONE 250/50 INHA INH SCH ×2 (09:19→20:29)
[2016-11-24] MEDS: ASPIRIN 81 MG TAB PO SCH (09:19)
[2016-11-24] MEDS: APIXABAN 5 MG TABLET PO SCH ×2 (09:19→20:29)
[2016-11-24] MEDS: BETHANECHOL 25 MG TAB PO SCH ×3 (09:20→20:30)
--- NOTE | 2016-11-24 10:03 | CONS ---
Date/Time of Note Date/Time of Note DATE: 11/24/16 TIME: 10:01 Assessment/Plan Assessment/Plan Additional Assessment/Plan 1. Atrial fibrillation with rapid ventricular response.-improved HR and now back in SR by ecg 11/13 - OFF TELE, SINUS BY EXAM 2. Congestive heart failure, systolic, acute on chronic- improved fluid status - will monitor 0- MUCH BETTER NOW 3. History of cardiomyopathy with decreased left ventricular ejection fraction 20% to 25% per chart biopsy- ICD in place 4. Shortness of breath- much improved. 5. Status post hypercapnic respiratory failure, status post extubation- better resp status 6. Chronic obstructive pulmonary disease- no wheezing now. 7. Hypertension-borderline hotn today with anti-hypertensives held - stable, will follow 8. Dyslipidemia. 9. History of automatic implantable cardioverter-defibrillator with possible discharge.-s/p interrogation with ICD shock for uncontrolled rapid AF. 10. Pneumonia- Rx with antiBx 11.Positive troponin-minimal with no sig uptrend 12.UTI-Klebs 14.Bacteremia-Klebs/persistent-most recent Bld cx's negative 15.ARF-slowly improving with holding of lasix 16.Fevers - resolved Consultation Date/Type/Reason Admit Date/Time Sep 28, 2016 at 14:41 Initial Consult Date 09/28/16 Type of Consultation: Cardiology Referring Provider: DEVON MUHAMMAD MD 24 HR Interval Summary Free Text/Dictation NO acute events - BP stable - no CP - doubt ischemia ROS: No fever, no chills, no nausea, no vomiting, no diarrhea/constipation No recent weight changes No chest pain, no PND, no orthopnea No dizziness, blurred vision No thirst, no heat or cold intolerance Exam/Review of Systems Vital Signs Vitals Vital Signs Date Time Temp Pulse Resp B/P Pulse Ox O2 Delivery O2 Flow Rate FiO2 11/24/16 08:05 65 20 92 Nasal Cannula 2.0 11/24/16 07:33 98.3 112/55 Intake and Output 11/23/16 11/23/16 11/24/16 15:00 23:00 07:00 Intake Total 110 ml 74 ml 300 ml Output Total 700 ml 500 ml 1700 ml Balance -590 ml -426 ml -1400 ml Exam General: WN/WD/NAD, AOx 3 HEENT: Unicetric/atraumatic/EOMI (follow commands) NECK: JVD elevated, no thyromegaly Lymph: no lymphadenopathy HEART: regular with no S3, II/ systolic murmur at apex, ICD, PMI L LUNGS: Coarse sounds ABD: soft, NT, ND, +BS : Intact Neuro: non focal SKIN: chronic changes EXT: trace edema Results Result Diagram: 11/24/16 0541 11/24/16 0541 Results 24 hrs Laboratory Tests Test 11/23/16 11:56 11/23/16 16:50 11/23/16 20:40 11/24/16 05:41 Bedside Glucose 122 133 143 Albumin 2.9 L Anion Gap 14 Basophils # 0.1 Basophils % 0.4 Blood Urea Nitrogen 28 H Calcium Level 9.1 Carbon Dioxide Level 33 H Chloride Level 96 L Creatinine 1.31 H Eosinophils # 0.2 Eosinophils % 1.4 Glucose Level 105 Hematocrit 26.4 L Hemoglobin 8.2 L Lymphocytes # 0.9 Lymphocytes % 8.0 L Mean Corpuscular Hemoglobin 31.2 Mean Corpuscular Hemoglobin Concent 31.1 L Mean Corpuscular Volume 100.4 Mean Platelet Volume 8.6 Monocytes # 1.0 H Monocytes % 8.1 Neutrophils # 8.9 H Neutrophils % 75.7 Nucleated Red Blood Cells # 0.0 Nucleated Red Blood Cells % 0.0 Phosphorus Level 4.3 Platelet Count 369 Potassium Level 4.6 Red Blood Count 2.63 L Red Cell Distribution Width 14.8 H Sodium Level 138 White Blood Count 11.8 H Test 11/24/16 07:38 Bedside Glucose 118 Medications Medications Current Medications IV Flush (NS 10 ml) 10 ml PRN PRN IV IV PROTOCOL Last administered on 11/11/16 08:14; Admin Dose 10 ML; Start 09/28/16 at 14:00 Ondansetron HCl (Zofran Inj) 4 mg Q6H PRN IV NAUSEA AND/OR VOMITING; Start at 15:00 Nitroglycerin (Nitroglycerin (Sl Tab) 0.4 Mg) 1 tab Q5M PRN SL CHEST PAIN; Start 09/28/16 at 15:00 Acetaminophen (Tylenol Liquid) 650 mg Q6H PRN PO PAIN LEVEL 1-3 OR FEVER Last administered on 11/13/16 05:59; Admin Dose 650 MG; Start 09/28/16 at 15:00 Acetaminophen (Tylenol Tab) 650 mg Q6H PRN PO PAIN LEVEL 1-3 OR FEVER Last administered on 11/19/16 20:21; Admin Dose 650 MG; Start 09/28/16 at 15:00 Morphine Sulfate (morphine) 2 mg Q4H PRN IV PAIN LEVEL 7-10 Last administered on 11/23/16 16:08; Admin Dose 2 MG; Start 09/28/16 at 15:00 Lorazepam (Ativan) 1 mg Q2H PRN IV ANXIETY Last administered on 10/29/16 20:56 ; Admin Dose 1 MG; Start 09/28/16 at 15:00 Docusate Sodium (Colace) 100 mg Q12H PRN PO CONSTIPATION Last administered on 08:14; Admin Dose 100 MG; Start 09/28/16 at 15:00 Famotidine (Pepcid) 20 mg Q12 PO Last administered on 11/24/16 09:19; Admin Dose 20 MG; Start 09/28/16 at 21:00 Aspirin (Aspirin) 81 mg DAILY PO Last administered on 11/24/16 09:19; Admin Dose 81 MG; Start 09/29/16 at 09:00 Atorvastatin Calcium (Lipitor) 10 mg QHS PO Last administered on 11/23/16 21: 23; Admin Dose 10 MG; Start 09/28/16 at 21:00 Tiotropium [place] (Spiriva) 1 inh DAILY INH ; Start 09/28/16 at 16:00; Status Future Hold Mupirocin (Bactroban) 1 applic BID TOP Last administered on 11/23/16 21:29; Admin Dose 1 APPLIC; Start 09/30/16 at 09:00 Diagnostic Test (Pha) (Accucheck) 1 ea 02 XX Last administered on 11/21/16 01: 36; Admin Dose 1 EA; Start 10/05/16 at 02:00 Miscellaneous Information 1 ea NOTE XX ; Start 10/04/16 at 09:00 Glucose (Glutose) 15 gm Q15M PRN PO DECREASED GLUCOSE; Start 10/04/16 at 09:00 Glucose (Glutose) 22.5 gm Q15M PRN PO DECREASED GLUCOSE; Start 10/04/16 at 09: 00 Dextrose (D50w Syringe) 25 ml Q15M PRN IV DECREASED GLUCOSE; Start 10/04/16 at 09:00 Dextrose (D50w Syringe) 50 ml Q15M PRN IV DECREASED GLUCOSE; Start 10/04/16 at 09:00 Glucagon (Glucagen) 1 mg Q15M PRN IM DECREASED GLUCOSE; Start 10/04/16 at 09:00 Glucose (Glutose) 15 gm Q15M PRN BUCCAL DECREASED GLUCOSE; Start 10/04/16 at 09 :00 Metoprolol Tartrate (Lopressor) 5 mg Q4 PRN IV HR>110 Hold SBP<100; Start 10/05 at 19:30 Montelukast Sodium (Singulair) 10 mg HS PO Last administered on 11/23/16 21:23 ; Admin Dose 10 MG; Start 10/10/16 at 21:00 Theophylline (Benji-24) 300 mg QHS PO Last administered on 11/23/16 21:24; Admin Dose 300 MG; Start 10/10/16 at 21:00 Apixaban (Eliquis) 5 mg BID PO Last administered on 11/24/16 09:19; Admin Dose 5 MG; Start 10/10/16 at 21:00 Digoxin (Digoxin) 0.125 mg DAILY@13 PO Last administered on 11/10/16 13:35; Admin Dose 0.125 MG; Start 10/12/16 at 13:00; Status Future Hold Furosemide (Lasix) 40 mg AM PO Last administered on 11/14/16 08:41; Admin Dose 40 MG; Start 10/25/16 at 09:00; Status Future Hold Amiodarone HCl (Cordarone) 200 mg BID PO Last administered on 11/23/16 21:23; Admin Dose 200 MG; Start 10/24/16 at 21:00 Salmeterol Xinafoate/ Fluticasone (Advair 250/50 Diskus) 1 inh BID INH Last administered on 11/24/16 09:19; Admin Dose 1 INH; Start 11/07/16 at 09:00 Insulin Glargine (Lantus) 14 unit HS SC Last administered on 11/23/16 21:25; Admin Dose 14 UNIT; Start 11/15/16 at 21:00 Metoprolol Succinate (Toprol Xl) 25 mg DAILY PO Last administered on 11/23/16 12:01; Admin Dose 25 MG; Start 11/17/16 at 09:00 Lisinopril (Zestril) 5 mg DAILY PO Last administered on 11/23/16 11:59; Admin Dose 5 MG; Start 11/19/16 at 09:00 Bethanechol Chloride 25 mg 25 mg TID PO Last administered on 11/24/16 09:20; Admin Dose 25 MG; Start 11/20/16 at 21:00 Ferric Sodium Gluconate Complex/ Sodium Chloride (Ferrlecit/NS) 110 ml @ 110 mls/hr Q24H IVPB Last administered on 11/23/16 12:34; Admin Dose 110 MLS/HR; Start 11/23/16 at 09:00; Stop 11/27/16 at 09:59 RAYSHAWN DUNN MD Nov 24, 2016 10:03
[2016-11-24] MEDS: METOPROLOL (XL) 25 MG TAB PO SCH (10:16)
[2016-11-24] MEDS: AMIODARONE 200 MG TAB PO SCH ×2 (10:17→20:29)
[2016-11-24] MEDS: LISINOPRIL 5 MG TAB PO SCH (10:17)
[2016-11-24] MEDS: morphine 2 MG INJ IV PRN ×2 (10:18→16:22)
[2016-11-24] MEDS: SOD FERRIC GLUC COMPLX 125 MG in SOD CHLORIDE 0.9% 100 ML IVPB SCH (10:23)
[2016-11-24] MEDS: MUPIROCIN 2% 22 GM OINT TOP SCH ×2 (10:23→20:30)
--- NOTE | 2016-11-24 14:22 | PN ---
Date/Time of Note Date/Time of Note DATE: 11/24/16 TIME: 14:20 Assessment/Plan VTE Prophylaxis VTE Prophylaxis Intervention: other (eliquis) Lines/Catheters IV Catheter Type (from Nrs): Saline Lock Urinary Cath still in place: Yes Reason Cath still needed: other (indicate) Assessment/Plan Assessment/Plan 1. 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 on avycaz 2. 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 Simpson 3. COPD exacerbation, stable, neb, decrease steroid 4. facility acquired pneumonia, with ESBL E. Coli, and Lauren albicans, treated 5. Atrial fibrillation with RVR, sinus now, follow up with cardiology 6. Congestive heart failure, systolic, chronic, stable 7. Ischemic cardiomyopathy 8. CAD 9. s/p ICD, stable 10. Essential hypertension, stable 11. Dyslipidemia. Continue statin. 12. Hx of Foot Fx- stable 13. DVT prophylaxis: eliquis 14. S/P IVC filter 15. Chronic anemia, one unit PRBC 11/19/2016 16. Awaiting for placemen Subjective 24 Hr Interval Summary Free Text/Dictation no event. Exam/Review of Systems Vital Signs Vitals Vital Signs Date Time Temp Pulse Resp B/P Pulse Ox O2 Delivery O2 Flow Rate FiO2 11/24/16 08:05 65 20 92 Nasal Cannula 2.0 11/24/16 07:33 98.3 112/55 Intake and Output 11/23/16 11/23/16 11/24/16 15:00 23:00 07:00 Intake Total 110 ml 74 ml 300 ml Output Total 700 ml 500 ml 1700 ml Balance -590 ml -426 ml -1400 ml Exam Constitutional: alert, oriented, well developed Psych: nl mood/affect, no complaints Head: atraumatic, normocephalic Eyes: EOMI, nl conjunctiva, nl lids ENMT: nl external ears & nose, nl lips & teeth, nl nasal mucosa & septum Neck: non-tender, supple Respiratory: clear to auscultation, normal air movement, No congested cough, No crackles/rales, No diminished breath sounds, No intercostal retraction, No labored breathing, No other, No respirations, No tactile fremitus, No wheezing Cardiovascular: nl pulses, regular rate and rhythm, No S3, No S4, No bruits, No diastolic murmur, No edema, No gallop, No irregular rhythm, No jugular venous distention (JVD), No murmurs/extra sounds, No other, No rub, No systolic murmur Gastrointestinal: nl liver, spleen, non-tender, soft, No ascites, No bowel sounds, No distended, No firm, No hepatomegaly, No mass , No other, No rebound or guarding, No splenomegaly, No surgical scars, No tender Musculoskeletal: nl extremities to inspection Extremities: normal pulses, No calf tenderness, No clubbing, No cyanosis, No edema, No other, No palpable cord, No pitting pedal edema, No tenderness Neurological: J[employer]NEY[employer] II-XII intact, nl mental status, nl speech, nl strength Skin: nl turgor Lymph: nl lymph nodes Results Result Diagram: 11/24/16 0541 11/24/16 0541 Results 24 hrs Laboratory Tests Test 11/23/16 16:50 11/23/16 20:40 11/24/16 05:41 11/24/16 07:38 Bedside Glucose 133 143 118 Albumin 2.9 L Anion Gap 14 Basophils # 0.1 Basophils % 0.4 Blood Urea Nitrogen 28 H Calcium Level 9.1 Carbon Dioxide Level 33 H Chloride Level 96 L Creatinine 1.31 H Eosinophils # 0.2 Eosinophils % 1.4 Glucose Level 105 Hematocrit 26.4 L Hemoglobin 8.2 L Lymphocytes # 0.9 Lymphocytes % 8.0 L Mean Corpuscular Hemoglobin 31.2 Mean Corpuscular Hemoglobin Concent 31.1 L Mean Corpuscular Volume 100.4 Mean Platelet Volume 8.6 Monocytes # 1.0 H Monocytes % 8.1 Neutrophils # 8.9 H Neutrophils % 75.7 Nucleated Red Blood Cells # 0.0 Nucleated Red Blood Cells % 0.0 Phosphorus Level 4.3 Platelet Count 369 Potassium Level 4.6 Red Blood Count 2.63 L Red Cell Distribution Width 14.8 H Sodium Level 138 White Blood Count 11.8 H Test 11/24/16 12:22 Bedside Glucose 138 Medications Medications Current Medications IV Flush (NS 10 ml) 10 ml PRN PRN IV IV PROTOCOL Last administered on 11/11/16t 08:14; Admin Dose 10 ML; Start 09/28/16 at 14:00 Ondansetron HCl (Zofran Inj) 4 mg Q6H PRN IV NAUSEA AND/OR VOMITING; Start at 15:00 Nitroglycerin (Nitroglycerin (Sl Tab) 0.4 Mg) 1 tab Q5M PRN SL CHEST PAIN; Start 09/28/16 at 15:00 Acetaminophen (Tylenol Liquid) 650 mg Q6H PRN PO PAIN LEVEL 1-3 OR FEVER Last administered on 11/13/16 05:59; Admin Dose 650 MG; Start 09/28/16 at 15:00 Acetaminophen (Tylenol Tab) 650 mg Q6H PRN PO PAIN LEVEL 1-3 OR FEVER Last administered on 11/19/16 20:21; Admin Dose 650 MG; Start 09/28/16 at 15:00 Morphine Sulfate (morphine) 2 mg Q4H PRN IV PAIN LEVEL 7-10 Last administered on 11/24/16 10:18; Admin Dose 2 MG; Start 09/28/16 at 15:00 Lorazepam (Ativan) 1 mg Q2H PRN IV ANXIETY Last administered on 10/29/16 20:56 ; Admin Dose 1 MG; Start 09/28/16 at 15:00 Docusate Sodium (Colace) 100 mg Q12H PRN PO CONSTIPATION Last administered on 08:14; Admin Dose 100 MG; Start 09/28/16 at 15:00 Famotidine (Pepcid) 20 mg Q12 PO Last administered on 11/24/16 09:19; Admin Dose 20 MG; Start 09/28/16 at 21:00 Aspirin (Aspirin) 81 mg DAILY PO Last administered on 11/24/16 09:19; Admin Dose 81 MG; Start 09/29/16 at 09:00 Atorvastatin Calcium (Lipitor) 10 mg QHS PO Last administered on 11/23/16 21: 23; Admin Dose 10 MG; Start 09/28/16 at 21:00 Tiotropium [place] (Spiriva) 1 inh DAILY INH ; Start 09/28/16 at 16:00; Status Future Hold Mupirocin (Bactroban) 1 applic BID TOP Last administered on 11/24/16 10:23; Admin Dose 1 APPLIC; Start 09/30/16 at 09:00 Diagnostic Test (Pha) (Accucheck) 1 ea 02 XX Last administered on 11/21/16 01: 36; Admin Dose 1 EA; Start 10/05/16 at 02:00 Miscellaneous Information 1 ea NOTE XX ; Start 10/04/16 at 09:00 Glucose (Glutose) 15 gm Q15M PRN PO DECREASED GLUCOSE; Start 10/04/16 at 09:00 Glucose (Glutose) 22.5 gm Q15M PRN PO DECREASED GLUCOSE; Start 10/04/16 at 09: 00 Dextrose (D50w Syringe) 25 ml Q15M PRN IV DECREASED GLUCOSE; Start 10/04/16 at 09:00 Dextrose (D50w Syringe) 50 ml Q15M PRN IV DECREASED GLUCOSE; Start 10/04/16 at 09:00 Glucagon (Glucagen) 1 mg Q15M PRN IM DECREASED GLUCOSE; Start 10/04/16 at 09:00 Glucose (Glutose) 15 gm Q15M PRN BUCCAL DECREASED GLUCOSE; Start 10/04/16 at 09 :00 Metoprolol Tartrate (Lopressor) 5 mg Q4 PRN IV HR>110 Hold SBP<100; Start 10/05 at 19:30 Montelukast Sodium (Singulair) 10 mg HS PO Last administered on 11/23/16 21:23 ; Admin Dose 10 MG; Start 10/10/16 at 21:00 Theophylline (Benji-24) 300 mg QHS PO Last administered on 11/23/16 21:24; Admin Dose 300 MG; Start 10/10/16 at 21:00 Apixaban (Eliquis) 5 mg BID PO Last administered on 11/24/16 09:19; Admin Dose 5 MG; Start 10/10/16 at 21:00 Digoxin (Digoxin) 0.125 mg DAILY@13 PO Last administered on 11/10/16 13:35; Admin Dose 0.125 MG; Start 10/12/16 at 13:00; Status Future Hold Furosemide (Lasix) 40 mg AM PO Last administered on 11/14/16 08:41; Admin Dose 40 MG; Start 10/25/16 at 09:00; Status Future Hold Amiodarone HCl (Cordarone) 200 mg BID PO Last administered on 11/24/16 10:17; Admin Dose 200 MG; Start 10/24/16 at 21:00 Salmeterol Xinafoate/ Fluticasone (Advair 250/50 Diskus) 1 inh BID INH Last administered on 11/24/16 09:19; Admin Dose 1 INH; Start 11/07/16 at 09:00 Insulin Glargine (Lantus) 14 unit HS SC Last administered on 11/23/16 21:25; Admin Dose 14 UNIT; Start 11/15/16 at 21:00 Metoprolol Succinate (Toprol Xl) 25 mg DAILY PO Last administered on 11/24/16 10:16; Admin Dose 25 MG; Start 11/17/16 at 09:00 Lisinopril (Zestril) 5 mg DAILY PO Last administered on 11/24/16 10:17; Admin Dose 5 MG; Start 11/19/16 at 09:00 Bethanechol Chloride 25 mg 25 mg TID PO Last administered on 11/24/16 09:20; Admin Dose 25 MG; Start 11/20/16 at 21:00 Ferric Sodium Gluconate Complex/ Sodium Chloride (Ferrlecit/NS) 110 ml @ 110 mls/hr Q24H IVPB Last administered on 11/24/16 10:23; Admin Dose 110 MLS/HR; Start 11/23/16 at 09:00; Stop 11/27/16 at 09:59 FUNMI MEZA MD Nov 24, 2016 14:22
--- NOTE | 2016-11-24 18:12 | RADRPT ---
Vent Rate: 64 bpm RR Interval: 0 msec MT Interval: 190 msec QRS Duration: 102 msec QT Interval: 374 msec QTC Interval: 385 msec P-R-T [place]: 68 - -29 - 82 degrees Normal sinus rhythm Septal and inferior infarcts, age undetermined Abnormal ECG Electronically Signed By: Vipin Rodrigues [id number]
--- NOTE | 2016-11-24 18:51 | PN ---
DATE: 11/24/2016 SUBJECTIVE: Urinary retention. The patient has been requiring intermittent catheterization every 6 hours and he, many times, refused to be catheterized. Finally yesterday evening, we put a Pruett ca theter and connected to a drainage bag, as the patient has been asking to have a leg bag. Today, he appears to be comfortable, and the catheter is draining well. OBJECTIVE: VITAL SIGNS: His temperature is 98.3, pulse 65, respiration 20, blood pressure 112/55. ABDOMEN: Soft. The Pruett catheter is in place and draining well. It is connected to a leg bag. LABORATORY DATA: CBC shows a white count of 11.8, hemoglobin 8.2, hematocrit 26.4. BUN 28, creatin ine 1.31, sodium 138, potassium 4.6, chloride 96, CO2 of 33. The urine culture, which was done 10 d ays ago, was Klebsiella pneumoniae carbapenemase and this patient has had hydronephrosis and persist ent infection because of the high postvoid residual. RECOMMENDATION: Therefore, the recommendation at the present is to keep the Pruett catheter in, keep it connected to a leg bag, and the patient should learn how to empty the leg bag and have the joaquin ter changed once a month or earlier if needed. He should follow up with [facility] after h is discharge. Dictated By: JOSÉ PATTERSON MD BB/NANDO Conf#: [id number] DID#: [id number] CC: GLENDY ESCOBAR MD;*End*
[2016-11-24] MEDS: predniSONE 1 MG TAB PO SCH (19:08)
[2016-11-24] MEDS: ATORVASTATIN 10 MG TAB PO SCH (20:29)
[2016-11-24] MEDS: MONTELUKAST 10 MG TAB PO SCH (20:29)
[2016-11-24] MEDS: THEOPHYLLINE (SR) 300 MG CAP PO SCH (20:30)
[2016-11-24] MEDS: ACETAMINOPHEN 325 MG TAB PO PRN (20:31)
[2016-11-24] MEDS: INSULIN GLARGINE [LANtus] 3 ML PEN SC SCH (20:32)
[2016-11-24 20:53] VITALS: BP 122/65; RESP 19
[2016-11-25] MEDS: ALBUTEROL/IPRATROPIUM (NEB) 3 ML AMP HHN SCH ×4 (02:00→19:28)
[2016-11-25 07:24] VITALS: BP 114/58; RESP 18
[2016-11-25] MEDS: INSULIN ASPART [NOVOLOG] 3 ML PEN SC SCH ×7 (08:00→21:00)
[2016-11-25] MEDS: ASPIRIN 81 MG TAB PO SCH (09:31)
[2016-11-25] MEDS: SALMETEROL/FLUTICASONE 250/50 INHA INH SCH ×2 (09:31→21:41)
[2016-11-25] MEDS: BETHANECHOL 25 MG TAB PO SCH ×3 (09:31→21:40)
[2016-11-25] MEDS: FAMOTIDINE 20 MG TAB PO SCH ×2 (09:31→21:41)
[2016-11-25] MEDS: LISINOPRIL 5 MG TAB PO SCH (09:32)
[2016-11-25] MEDS: AMIODARONE 200 MG TAB PO SCH ×2 (09:32→21:41)
[2016-11-25] MEDS: METOPROLOL (XL) 25 MG TAB PO SCH (09:32)
[2016-11-25] MEDS: MUPIROCIN 2% 22 GM OINT TOP SCH ×2 (09:33→21:40)
[2016-11-25] MEDS: APIXABAN 5 MG TABLET PO SCH ×2 (09:33→21:41)
[2016-11-25] MEDS: SOD FERRIC GLUC COMPLX 125 MG in SOD CHLORIDE 0.9% 100 ML IVPB SCH (09:34)
--- NOTE | 2016-11-25 11:17 | CONS ---
Date/Time of Note Date/Time of Note DATE: 11/25/16 TIME: 11:16 Assessment/Plan Assessment/Plan Chief Complaint/Hosp Course IMPRESSION: 1. Atrial fibrillation with rapid ventricular response.-improved HR and now back in SR by ecg 11/20 2. Congestive heart failure, systolic, acute on chronic. 3. History of cardiomyopathy with decreased left ventricular ejection fraction 20% to 25% per chart biopsy. 4. Shortness of breath. 5. Status post hypercapnic respiratory failure, status post extubation. 6. Chronic obstructive pulmonary disease. 7. Hypertension-borderline hotn today with anti-hypertensives held 8. Dyslipidemia. 9. History of automatic implantable cardioverter-defibrillator with possible discharge.-s/p interrogation with ICD shock for uncontrolled rapid AF. 10. Pneumonia. 11.Positive troponin-minimal with no sig uptrend 12.UTI-Klebs 14.Bacteremia-Klebs/persistent-most recent Bld cx's negative 15.ARF-slowly improving 16.Fevers Recc -Tele -Continue asa/Eliquis -ACEI/BB as tolerated at current doses -Continue to hold digoxin in setting of ARF and well controled heart rates although digoxin level now down -Continue statin -Follow volume status and will continue hold lasix and follow volume status/stone polisher hand closely -Continue abx's and f/u cx data and -awaiting placement Problems: Consultation Date/Type/Reason Admit Date/Time Sep 28, 2016 at 14:41 Initial Consult Date 09/28/16 Type of Consultation: Cardiology Reason for Consultation AICD discharge Referring Provider: DEVON MUHAMMAD MD Exam/Review of Systems Vital Signs Vitals Vital Signs Date Time Temp Pulse Resp B/P Pulse Ox O2 Delivery O2 Flow Rate FiO2 11/25/16 10:42 Nasal Cannula 3.0 11/25/16 07:24 98.0 72 18 114/58 93 Intake and Output 11/24/16 11/24/16 11/25/16 15:00 23:00 07:00 Intake Total 110 ml 1320 ml 300 ml Output Total 1500 ml 900 ml Balance 110 ml -180 ml -600 ml Exam Review of Systems: CONSTITUTIONAL: No fevers, chills. PULMONARY: No sob CARDIOVASCULAR: No chest pain/palpitations GASTROINTESTINAL: No nausea/vomiting. GENITOURINARY: No hematuria/dysuria. MUSCULOSKELETAL: No myagias/arthalgias. PSYCHIATRIC: The patient denies depression. NEUROLOGIC: No weakness Constitutional: alert Psych: no complaints Head: normocephalic ENMT: mucosa pink and moist Neck: jvd (8 cm water), supple Respiratory: clear to auscultation Cardiovascular: regular rate and rhythm Gastrointestinal: non-tender, soft Musculoskeletal: muscle tone (normal) Extremities: edema (none) Neurological: other (No focal deficits) Results Result Diagram: 11/24/16 0541 11/24/16 0541 Results 24 hrs Laboratory Tests Test 11/24/16 12:22 11/24/16 17:36 11/24/16 19:38 11/25/16 07:57 Bedside Glucose 138 102 136 91 Medications Medications Current Medications IV Flush (NS 10 ml) 10 ml PRN PRN IV IV PROTOCOL Last administered on 11/11/16 08:14; Admin Dose 10 ML; Start 09/28/16 at 14:00 Ondansetron HCl (Zofran Inj) 4 mg Q6H PRN IV NAUSEA AND/OR VOMITING; Start at 15:00 Nitroglycerin (Nitroglycerin (Sl Tab) 0.4 Mg) 1 tab Q5M PRN SL CHEST PAIN; Start 09/28/16 at 15:00 Acetaminophen (Tylenol Liquid) 650 mg Q6H PRN PO PAIN LEVEL 1-3 OR FEVER Last administered on 11/13/16 05:59; Admin Dose 650 MG; Start 09/28/16 at 15:00 Acetaminophen (Tylenol Tab) 650 mg Q6H PRN PO PAIN LEVEL 1-3 OR FEVER Last administered on 11/24/16 20:31; Admin Dose 650 MG; Start 09/28/16 at 15:00 Morphine Sulfate (morphine) 2 mg Q4H PRN IV PAIN LEVEL 7-10 Last administered on 11/24/16 16:22; Admin Dose 2 MG; Start 09/28/16 at 15:00 Lorazepam (Ativan) 1 mg Q2H PRN IV ANXIETY Last administered on 10/29/16 20:56 ; Admin Dose 1 MG; Start 09/28/16 at 15:00 Docusate Sodium (Colace) 100 mg Q12H PRN PO CONSTIPATION Last administered on 08:14; Admin Dose 100 MG; Start 09/28/16 at 15:00 Famotidine (Pepcid) 20 mg Q12 PO Last administered on 11/25/16 09:31; Admin Dose 20 MG; Start 09/28/16 at 21:00 Aspirin (Aspirin) 81 mg DAILY PO Last administered on 11/25/16 09:31; Admin Dose 81 MG; Start 09/29/16 at 09:00 Atorvastatin Calcium (Lipitor) 10 mg QHS PO Last administered on 11/24/16 20: 29; Admin Dose 10 MG; Start 09/28/16 at 21:00 Tiotropium [place] (Spiriva) 1 inh DAILY INH ; Start 09/28/16 at 16:00; Status Future Hold Mupirocin (Bactroban) 1 applic BID TOP Last administered on 11/25/16 09:33; Admin Dose 1 APPLIC; Start 09/30/16 at 09:00 Diagnostic Test (Pha) (Accucheck) 1 ea 02 XX Last administered on 11/21/16 01: 36; Admin Dose 1 EA; Start 10/05/16 at 02:00 Miscellaneous Information 1 ea NOTE XX ; Start 10/04/16 at 09:00 Glucose (Glutose) 15 gm Q15M PRN PO DECREASED GLUCOSE; Start 10/04/16 at 09:00 Glucose (Glutose) 22.5 gm Q15M PRN PO DECREASED GLUCOSE; Start 10/04/16 at 09: 00 Dextrose (D50w Syringe) 25 ml Q15M PRN IV DECREASED GLUCOSE; Start 10/04/16 at 09:00 Dextrose (D50w Syringe) 50 ml Q15M PRN IV DECREASED GLUCOSE; Start 10/04/16 at 09:00 Glucagon (Glucagen) 1 mg Q15M PRN IM DECREASED GLUCOSE; Start 10/04/16 at 09:00 Glucose (Glutose) 15 gm Q15M PRN BUCCAL DECREASED GLUCOSE; Start 10/04/16 at 09 :00 Metoprolol Tartrate (Lopressor) 5 mg Q4 PRN IV HR>110 Hold SBP<100; Start 10/05 at 19:30 Montelukast Sodium (Singulair) 10 mg HS PO Last administered on 11/24/16 20:29 ; Admin Dose 10 MG; Start 10/10/16 at 21:00 Theophylline (Benji-24) 300 mg QHS PO Last administered on 11/24/16 20:30; Admin Dose 300 MG; Start 10/10/16 at 21:00 Apixaban (Eliquis) 5 mg BID PO Last administered on 11/25/16 09:33; Admin Dose 5 MG; Start 10/10/16 at 21:00 Digoxin (Digoxin) 0.125 mg DAILY@13 PO Last administered on 11/10/16 13:35; Admin Dose 0.125 MG; Start 10/12/16 at 13:00; Status Future Hold Furosemide (Lasix) 40 mg AM PO Last administered on 11/14/16 08:41; Admin Dose 40 MG; Start 10/25/16 at 09:00; Status Future Hold Amiodarone HCl (Cordarone) 200 mg BID PO Last administered on 11/25/16 09:32; Admin Dose 200 MG; Start 10/24/16 at 21:00 Salmeterol Xinafoate/ Fluticasone (Advair 250/50 Diskus) 1 inh BID INH Last administered on 11/25/16 09:31; Admin Dose 1 INH; Start 11/07/16 at 09:00 Insulin Glargine (Lantus) 14 unit HS SC Last administered on 11/24/16 20:32; Admin Dose 14 UNIT; Start 11/15/16 at 21:00 Metoprolol Succinate (Toprol Xl) 25 mg DAILY PO Last administered on 11/25/16 09:32; Admin Dose 25 MG; Start 11/17/16 at 09:00 Lisinopril (Zestril) 5 mg DAILY PO Last administered on 11/25/16 09:32; Admin Dose 5 MG; Start 11/19/16 at 09:00 Bethanechol Chloride 25 mg 25 mg TID PO Last administered on 11/25/16 09:31; Admin Dose 25 MG; Start 11/20/16 at 21:00 Ferric Sodium Gluconate Complex/ Sodium Chloride (Ferrlecit/NS) 110 ml @ 110 mls/hr Q24H IVPB Last administered on 11/25/16 09:34; Admin Dose 110 MLS/HR; Start 11/23/16 at 09:00; Stop 11/27/16 at 09:59 СВЕТЛАНА PADRON Nov 25, 2016 11:17
--- NOTE | 2016-11-25 15:19 | PN ---
Date/Time of Note Date/Time of Note DATE: 11/25/16 TIME: 15:17 Assessment/Plan VTE Prophylaxis VTE Prophylaxis Intervention: other (Factor Xa inhibitors.) Lines/Catheters [facility] Saline Lock Urinary Cath still in place: Yes Reason Cath still needed: urinary retention Assessment/Plan Chief Complaint/Hosp Course 1. Acute on chronic hypoxic and hypercapnic respiratory failure secondary to chronic obstructive pulmonary disease exacerbation. Continue inhaled bronchodilators and tapering dose of steroids. Status post extubation on 2016. 2. Status post Healthcare-associated pneumonia. Sputum culture positive for extended spectrum beta-Lactamases and Lauren albicans. Status post antibiotics as per infectious disease. The patient has no evidence of any septic shock. 3. Urinary tract infection with Klebsiella pneumoniae carbapenemase. Status post antibiotics as per infectious disease. 4. Congestive heart failure exacerbation. Acute on chronic systolic and diastolic dysfunction. Currently euvolemic. Diuretics on hold. 5. Ischemic cardiomyopathy, status post automatic implantable cardioverter- defibrillator placement. Continue ZEB inhibitors and beta blockers. 6. Coronary artery disease, status post coronary artery stenting. Continue dual antiplatelet therapy. 7. Essential hypertension. Continue antihypertensives. 8. Dyslipidemia. Continue statins. 9. Recent right foot injury. Status post evaluation by podiatry. Imaging negative for any fractures. 10. Type 2 diabetes mellitus. Hemoglobin A1c 6.6. Continue the patient on sliding scale insulin along with basal insulin and pre-meal insulin. 11. Paroxysmal atrial fibrillation. Currently in sinus rhythm. On Eliquis for stroke prophylaxis. Cardiology following the patient. 12. Urinary retention. The patient has a Pruett catheter in place. Being followed by urology. 13. Normocytic, normochromic anemia. Iron panel showing iron deficiency. Continue iron supplements. 14. Acute kidney injury. Monitor BUN and creatinine closely. 15. Fluid, electrolytes and nutrition. Carbohydrate controlled, low- cholesterol diet. 16. Deep venous thrombosis prophylaxis. Continue Eliquis. 17. Gastrointestinal prophylaxis. Histamine 2 receptor blockers. PLAN: Continue antibiotics as per infectious disease. Continue to wean off steroids as per pulmonary. Case was discussed with Dr. Murray. Problems: Subjective 24 Hr Interval Summary Free Text/Dictation Denies any dyspnea. The patient has a Pruett catheter in place. Exam/Review of Systems Vital Signs Vitals Vital Signs Date Time Temp Pulse Resp B/P Pulse Ox O2 Delivery O2 Flow Rate FiO2 11/25/16 15:14 68 18 93 Nasal Cannula 2.0 11/25/16 07:24 98.0 114/58 Intake and Output 11/24/16 11/24/16 11/25/16 15:00 23:00 07:00 Intake Total 110 ml 1320 ml 300 ml Output Total 1500 ml 900 ml Balance 110 ml -180 ml -600 ml Exam GENERAL: This is a frail-looking 56-year-old male patient, lying in bed in mild respiratory distress. HEENT: Head normocephalic and atraumatic. Eyes, anicteric sclerae. Conjunctivae are clear. ENT: Nasal septum is midline. Oral mucosa is dry. NECK: Supple. No JVD noticed. RESPIRATORY: Bilaterally diminished breath sounds. Minimal use of accessory muscles of respiration. CARDIAC: S1, S2 heard. Regular rate and rhythm. ABDOMEN: Soft, nontender and nondistended. Bowel sounds are positive in all 4 quadrants. GENITOURINARY: Pruett catheter in place. EXTREMITIES: No cyanosis. Clubbing of bilateral upper digits. Bilateral lower extremity edema. NEUROLOGIC: The patient is awake, alert, and oriented. Results Result Diagram: 11/24/16 0541 11/24/16 0541 Results 24 hrs Laboratory Tests Test 11/24/16 17:36 11/24/16 19:38 11/25/16 07:57 11/25/16 12:07 Bedside Glucose 102 136 91 126 Medications Medications Current Medications IV Flush (NS 10 ml) 10 ml PRN PRN IV IV PROTOCOL Last administered on 11/11/16 08:14; Admin Dose 10 ML; Start 09/28/16 at 14:00 Ondansetron HCl (Zofran Inj) 4 mg Q6H PRN IV NAUSEA AND/OR VOMITING; Start at 15:00 Nitroglycerin (Nitroglycerin (Sl Tab) 0.4 Mg) 1 tab Q5M PRN SL CHEST PAIN; Start 09/28/16 at 15:00 Acetaminophen (Tylenol Liquid) 650 mg Q6H PRN PO PAIN LEVEL 1-3 OR FEVER Last administered on 11/13/16 05:59; Admin Dose 650 MG; Start 09/28/16 at 15:00 Acetaminophen (Tylenol Tab) 650 mg Q6H PRN PO PAIN LEVEL 1-3 OR FEVER Last administered on 11/24/16 20:31; Admin Dose 650 MG; Start 09/28/16 at 15:00 Morphine Sulfate (morphine) 2 mg Q4H PRN IV PAIN LEVEL 7-10 Last administered on 11/24/16 16:22; Admin Dose 2 MG; Start 09/28/16 at 15:00 Lorazepam (Ativan) 1 mg Q2H PRN IV ANXIETY Last administered on 10/29/16 20:56 ; Admin Dose 1 MG; Start 09/28/16 at 15:00 Docusate Sodium (Colace) 100 mg Q12H PRN PO CONSTIPATION Last administered on 08:14; Admin Dose 100 MG; Start 09/28/16 at 15:00 Famotidine (Pepcid) 20 mg Q12 PO Last administered on 11/25/16 09:31; Admin Dose 20 MG; Start 09/28/16 at 21:00 Aspirin (Aspirin) 81 mg DAILY PO Last administered on 11/25/16 09:31; Admin Dose 81 MG; Start 09/29/16 at 09:00 Atorvastatin Calcium (Lipitor) 10 mg QHS PO Last administered on 11/24/16 20: 29; Admin Dose 10 MG; Start 09/28/16 at 21:00 Tiotropium [place] (Spiriva) 1 inh DAILY INH ; Start 09/28/16 at 16:00; Status Future Hold Mupirocin (Bactroban) 1 applic BID TOP Last administered on 11/25/16 09:33; Admin Dose 1 APPLIC; Start 09/30/16 at 09:00 Diagnostic Test (Pha) (Accucheck) 1 ea 02 XX Last administered on 11/21/16 01: 36; Admin Dose 1 EA; Start 10/05/16 at 02:00 Miscellaneous Information 1 ea NOTE XX ; Start 10/04/16 at 09:00 Glucose (Glutose) 15 gm Q15M PRN PO DECREASED GLUCOSE; Start 10/04/16 at 09:00 Glucose (Glutose) 22.5 gm Q15M PRN PO DECREASED GLUCOSE; Start 10/04/16 at 09: 00 Dextrose (D50w Syringe) 25 ml Q15M PRN IV DECREASED GLUCOSE; Start 10/04/16 at 09:00 Dextrose (D50w Syringe) 50 ml Q15M PRN IV DECREASED GLUCOSE; Start 10/04/16 at 09:00 Glucagon (Glucagen) 1 mg Q15M PRN IM DECREASED GLUCOSE; Start 10/04/16 at 09:00 Glucose (Glutose) 15 gm Q15M PRN BUCCAL DECREASED GLUCOSE; Start 10/04/16 at 09 :00 Metoprolol Tartrate (Lopressor) 5 mg Q4 PRN IV HR>110 Hold SBP<100; Start 10/05 at 19:30 Montelukast Sodium (Singulair) 10 mg HS PO Last administered on 11/24/16 20:29 ; Admin Dose 10 MG; Start 10/10/16 at 21:00 Theophylline (Benji-24) 300 mg QHS PO Last administered on 11/24/16 20:30; Admin Dose 300 MG; Start 10/10/16 at 21:00 Apixaban (Eliquis) 5 mg BID PO Last administered on 11/25/16 09:33; Admin Dose 5 MG; Start 10/10/16 at 21:00 Digoxin (Digoxin) 0.125 mg DAILY@13 PO Last administered on 11/10/16 13:35; Admin Dose 0.125 MG; Start 10/12/16 at 13:00; Status Future Hold Furosemide (Lasix) 40 mg AM PO Last administered on 11/14/16 08:41; Admin Dose 40 MG; Start 10/25/16 at 09:00; Status Future Hold Amiodarone HCl (Cordarone) 200 mg BID PO Last administered on 11/25/16 09:32; Admin Dose 200 MG; Start 10/24/16 at 21:00 Salmeterol Xinafoate/ Fluticasone (Advair 250/50 Diskus) 1 inh BID INH Last administered on 11/25/16 09:31; Admin Dose 1 INH; Start 11/07/16 at 09:00 Insulin Glargine (Lantus) 14 unit HS SC Last administered on 11/24/16 20:32; Admin Dose 14 UNIT; Start 11/15/16 at 21:00 Metoprolol Succinate (Toprol Xl) 25 mg DAILY PO Last administered on 11/25/16 09:32; Admin Dose 25 MG; Start 11/17/16 at 09:00 Lisinopril (Zestril) 5 mg DAILY PO Last administered on 11/25/16 09:32; Admin Dose 5 MG; Start 11/19/16 at 09:00 Bethanechol Chloride 25 mg 25 mg TID PO Last administered on 11/25/16 13:26; Admin Dose 25 MG; Start 11/20/16 at 21:00 Ferric Sodium Gluconate Complex/ Sodium Chloride (Ferrlecit/NS) 110 ml @ 110 mls/hr Q24H IVPB Last administered on 11/25/16 09:34; Admin Dose 110 MLS/HR; Start 11/23/16 at 09:00; Stop 11/27/16 at 09:59 SOHA ALCOCER NP Nov 25, 2016 15:19 SOHA ALCOCER NP Nov 25, 2016 15:19
[2016-11-25] MEDS: predniSONE 1 MG TAB PO SCH (17:33)
--- NOTE | 2016-11-25 19:28 | PN ---
DATE: 11/25/2016 SUBJECTIVE: This patient has urinary retention, needs an indwelling Rpuett catheter, and it appears that there is also a placement problem with him. OBJECTIVE: GENERAL: He is afebrile. VITAL SIGNS: Temperature is 98, blood pressure 114/58, pulse is 68, respiration 18. GENITOURINARY: The Pruett catheter is draining clear urine and it is connected to a regular bag. We tried to connect it to a leg bag yesterday; it seems he was having difficulty even emptying the leg bag. This patient does have a problem even cutting his food, according to his nurses, and though h e needs to be sent to a half-way where they could empty the urinary drainage bag for him and guera nge the catheter for him as needed. Dictated By: JOSÉ DOS SANTOS/NANDO Conf#: [id number] DID#: [id number]
[2016-11-25 20:28] VITALS: BP 115/67; RESP 18
[2016-11-25] MEDS: MONTELUKAST 10 MG TAB PO SCH (21:41)
[2016-11-25] MEDS: ATORVASTATIN 10 MG TAB PO SCH (21:41)
[2016-11-25] MEDS: THEOPHYLLINE (SR) 300 MG CAP PO SCH (21:42)
[2016-11-25] MEDS: INSULIN GLARGINE [LANtus] 3 ML PEN SC SCH (21:43)
[2016-11-26] MEDS: ACCU-CHEK XX SCH (02:00)
[2016-11-26] MEDS: ALBUTEROL/IPRATROPIUM (NEB) 3 ML AMP HHN SCH ×4 (02:14→21:01)
[2016-11-26 05:05] LABS: ADD SCAN DIFF NO
[2016-11-26 05:14] LABS: ABNORMAL IP MESSAGE 1; BASOPHIL # 0.1 10^3/ul (0.0-0.1); BASOPHILS % 0.5 % (0.0-2.0); EOSINOPHILS # 0.3 10^3/ul (0.0-0.5); EOSINOPHILS % 2.7 % (0.0-7.0); HEMATOCRIT 26.1 % (42.0-52.0); HEMOGLOBIN 8.1 g/dl (14.0-18.0); LYMPHOCYTES % 9.2 % (15.0-51.0); MEAN CORPUSCULAR HEMOGLOBIN 31.3 pg (29.0-33.0); MEAN CORPUSCULAR VOLUME 100.8 fl (82.0-101.0); MEAN PLATELET VOLUME 8.5 fl (7.4-10.4); MONOCYTES % 9.4 % (0.0-11.0); NEUTROPHIL # 7.7 10^3/ul (1.6-7.5); NEUTROPHILS % 70.5 % (39.0-77.0); PLATELET COUNT 382 10^3/UL (140-415); RED BLOOD COUNT 2.59 10^6/ul (4.70-6.10); RED CELL DISTRIBUTION WIDTH 14.8 % (11.5-14.5)
[2016-11-26 05:27] LABS: POTASSIUM 4.3 mmol/L (3.5-5.1)
[2016-11-26 05:28] LABS: MAGNESIUM 1.8 mg/dl (1.7-2.5); PHOSPHORUS 3.6 mg/dl (2.5-4.9)
[2016-11-26 05:29] LABS: CREATININE 1.33 mg/dl (0.61-1.24)
[2016-11-26 07:20] VITALS: BP 123/65; RESP 20
[2016-11-26] MEDS ORDERED: COLLAGENASE 30 GM TUBE TOP SCH (09:00)
[2016-11-26] MEDS: INSULIN ASPART [NOVOLOG] 3 ML PEN SC SCH ×8 (09:24→21:00)
[2016-11-26] MEDS: METOPROLOL (XL) 25 MG TAB PO SCH (09:29)
[2016-11-26] MEDS: ASPIRIN 81 MG TAB PO SCH (09:29)
[2016-11-26] MEDS: BETHANECHOL 25 MG TAB PO SCH ×3 (09:29→22:12)
[2016-11-26] MEDS: SOD FERRIC GLUC COMPLX 125 MG in SOD CHLORIDE 0.9% 100 ML IVPB SCH (09:30)
[2016-11-26] MEDS: AMIODARONE 200 MG TAB PO SCH ×2 (09:30→22:12)
[2016-11-26] MEDS: LISINOPRIL 5 MG TAB PO SCH (09:30)
[2016-11-26] MEDS: APIXABAN 5 MG TABLET PO SCH ×2 (09:30→22:12)
[2016-11-26] MEDS: FAMOTIDINE 20 MG TAB PO SCH ×2 (09:30→22:12)
[2016-11-26] MEDS: SALMETEROL/FLUTICASONE 250/50 INHA INH SCH ×2 (09:31→22:12)
[2016-11-26] MEDS: MUPIROCIN 2% 22 GM OINT TOP SCH ×2 (09:33→22:15)
[2016-11-26] MEDS: COLLAGENASE 30 GM TUBE TOP SCH (09:33)
--- NOTE | 2016-11-26 12:09 | PN ---
Date/Time of Note Date/Time of Note DATE: 11/26/16 TIME: 12:07 Assessment/Plan VTE Prophylaxis VTE Prophylaxis Intervention: other (Eliquis) Lines/Catheters IV C[facility]ter Type (from [facility]): [facility] Urinary Cath still in place: Yes Reason Cath still needed: urinary retention Assessment/Plan Chief Complaint/Hosp Course 1. Acute on chronic hypoxic and hypercapnic respiratory failure secondary to chronic obstructive pulmonary disease exacerbation. Continue inhaled bronchodilators and tapering dose of steroids. Status post extubation on 2016. 2. Status post Healthcare-associated pneumonia. Sputum culture positive for extended spectrum beta-Lactamases and Lauren albicans. Status post antibiotics as per infectious disease. The patient has no evidence of any septic shock. 3. Urinary tract infection with Klebsiella pneumoniae carbapenemase. Status post antibiotics as per infectious disease. 4. Congestive heart failure exacerbation. Acute on chronic systolic and diastolic dysfunction. Currently euvolemic. Diuretics on hold. 5. Ischemic cardiomyopathy, status post automatic implantable cardioverter- defibrillator placement. Continue ZEB inhibitors and beta blockers. 6. Coronary artery disease, status post coronary artery stenting. Continue dual antiplatelet therapy. 7. Essential hypertension. Continue antihypertensives. 8. Dyslipidemia. Continue statins. 9. Recent right foot injury. Status post evaluation by podiatry. Imaging negative for any fractures. 10. Type 2 diabetes mellitus. Hemoglobin A1c 6.6. Continue the patient on sliding scale insulin along with basal insulin and pre-meal insulin. 11. Paroxysmal atrial fibrillation. Currently in sinus rhythm. On Eliquis for stroke prophylaxis. Cardiology following the patient. 12. Urinary retention. The patient has a Pruett catheter in place. Being followed by urology. 13. Normocytic, normochromic anemia. Iron panel showing iron deficiency. Continue iron supplements. 14. Acute kidney injury. Monitor BUN and creatinine closely. 15. Fluid, electrolytes and nutrition. Carbohydrate controlled, low- cholesterol diet. 16. Deep venous thrombosis prophylaxis. Eliquis. 17. Gastrointestinal prophylaxis. Histamine 2 receptor blockers. PLAN: Continue antibiotics as per infectious disease. Await placement. Case was discussed with Dr. Murray. Problems: Subjective 24 Hr Interval Summary Free Text/Dictation No changes in status. Exam/Review of Systems Vital Signs Vitals Vital Signs Date Time Temp Pulse Resp B/P Pulse Ox O2 Delivery O2 Flow Rate FiO2 11/26/16 09:30 Nasal Cannula 3.0 11/26/16 07:20 97.6 64 20 123/65 94 Intake and Output 11/25/16 11/25/16 11/26/16 15:00 23:00 07:00 Intake Total 1800 ml 400 ml Output Total 2600 ml 1500 ml Balance -800 ml -1100 ml Exam GENERAL: This is a frail-looking 56-year-old male patient, lying in bed in mild respiratory distress. HEENT: Head normocephalic and atraumatic. Eyes, anicteric sclerae. Conjunctivae are clear. ENT: Nasal septum is midline. Oral mucosa is dry. NECK: Supple. No JVD noticed. RESPIRATORY: Bilaterally diminished breath sounds. Minimal use of accessory muscles of respiration. CARDIAC: S1, S2 heard. Regular rate and rhythm. ABDOMEN: Soft, nontender and nondistended. Bowel sounds are positive in all 4 quadrants. GENITOURINARY: Pruett catheter in place. EXTREMITIES: No cyanosis. Clubbing of bilateral upper digits. Bilateral lower extremity edema. NEUROLOGIC: The patient is awake, alert, and oriented. Results Result Diagram: 11/26/16 0442 11/26/16 0442 Results 24 hrs Laboratory Tests Test 11/25/16 17:25 11/25/16 20:46 11/26/16 04:42 11/26/16 08:09 Bedside Glucose 105 128 95 White Blood Count 11.0 H Red Blood Count 2.59 L Hemoglobin 8.1 L Hematocrit 26.1 L Mean Corpuscular Volume 100.8 Mean Corpuscular Hemoglobin 31.3 Mean Corpuscular Hemoglobin Concent 31.0 L Red Cell Distribution Width 14.8 H Platelet Count 382 Mean Platelet Volume 8.5 Neutrophils % 70.5 Lymphocytes % 9.2 L Monocytes % 9.4 Eosinophils % 2.7 Basophils % 0.5 Nucleated Red Blood Cells % 0.0 Neutrophils # 7.7 H Lymphocytes # 1.0 Monocytes # 1.0 H Eosinophils # 0.3 Basophils # 0.1 Nucleated Red Blood Cells # 0.0 Sodium Level 137 Potassium Level 4.3 Chloride Level 95 L Carbon Dioxide Level 34 H Anion Gap 12 Blood Urea Nitrogen 31 H Creatinine 1.33 H Glucose Level 93 Calcium Level 9.0 Phosphorus Level 3.6 Magnesium Level 1.8 Medications Medications Current Medications IV Flush (NS 10 ml) 10 ml PRN PRN IV IV PROTOCOL Last administered on 11/11/16 08:14; Admin Dose 10 ML; Start 09/28/16 at 14:00 Ondansetron HCl (Zofran Inj) 4 mg Q6H PRN IV NAUSEA AND/OR VOMITING; Start at 15:00 Nitroglycerin (Nitroglycerin (Sl Tab) 0.4 Mg) 1 tab Q5M PRN SL CHEST PAIN; Start 09/28/16 at 15:00 Acetaminophen (Tylenol Liquid) 650 mg Q6H PRN PO PAIN LEVEL 1-3 OR FEVER Last administered on 11/13/16 05:59; Admin Dose 650 MG; Start 09/28/16 at 15:00 Acetaminophen (Tylenol Tab) 650 mg Q6H PRN PO PAIN LEVEL 1-3 OR FEVER Last administered on 11/24/16 20:31; Admin Dose 650 MG; Start 09/28/16 at 15:00 Morphine Sulfate (morphine) 2 mg Q4H PRN IV PAIN LEVEL 7-10 Last administered on 11/24/16 16:22; Admin Dose 2 MG; Start 09/28/16 at 15:00 Lorazepam (Ativan) 1 mg Q2H PRN IV ANXIETY Last administered on 10/29/16 20:56 ; Admin Dose 1 MG; Start 09/28/16 at 15:00 Docusate Sodium (Colace) 100 mg Q12H PRN PO CONSTIPATION Last administered on 08:14; Admin Dose 100 MG; Start 09/28/16 at 15:00 Famotidine (Pepcid) 20 mg Q12 PO Last administered on 11/26/16 09:30; Admin Dose 20 MG; Start 09/28/16 at 21:00 Aspirin (Aspirin) 81 mg DAILY PO Last administered on 11/26/16 09:29; Admin Dose 81 MG; Start 09/29/16 at 09:00 Atorvastatin Calcium (Lipitor) 10 mg QHS PO Last administered on 11/25/16 21: 41; Admin Dose 10 MG; Start 09/28/16 at 21:00 Tiotropium [place] (Spiriva) 1 inh DAILY INH ; Start 09/28/16 at 16:00; Status Future Hold Mupirocin (Bactroban) 1 applic BID TOP Last administered on 11/26/16 09:33; Admin Dose 1 APPLIC; Start 09/30/16 at 09:00 Diagnostic Test (Pha) (Accucheck) 1 ea 02 XX Last administered on 11/21/16 01: 36; Admin Dose 1 EA; Start 10/05/16 at 02:00 Miscellaneous Information 1 ea NOTE XX ; Start 10/04/16 at 09:00 Glucose (Glutose) 15 gm Q15M PRN PO DECREASED GLUCOSE; Start 10/04/16 at 09:00 Glucose (Glutose) 22.5 gm Q15M PRN PO DECREASED GLUCOSE; Start 10/04/16 at 09: 00 Dextrose (D50w Syringe) 25 ml Q15M PRN IV DECREASED GLUCOSE; Start 10/04/16 at 09:00 Dextrose (D50w Syringe) 50 ml Q15M PRN IV DECREASED GLUCOSE; Start 10/04/16 at 09:00 Glucagon (Glucagen) 1 mg Q15M PRN IM DECREASED GLUCOSE; Start 10/04/16 at 09:00 Glucose (Glutose) 15 gm Q15M PRN BUCCAL DECREASED GLUCOSE; Start 10/04/16 at 09 :00 Metoprolol Tartrate (Lopressor) 5 mg Q4 PRN IV HR>110 Hold SBP<100; Start 10/05 at 19:30 Montelukast Sodium (Singulair) 10 mg HS PO Last administered on 11/25/16 21:41 ; Admin Dose 10 MG; Start 10/10/16 at 21:00 Theophylline (Benji-24) 300 mg QHS PO Last administered on 11/25/16 21:42; Admin Dose 300 MG; Start 10/10/16 at 21:00 Apixaban (Eliquis) 5 mg BID PO Last administered on 11/26/16 09:30; Admin Dose 5 MG; Start 10/10/16 at 21:00 Digoxin (Digoxin) 0.125 mg DAILY@13 PO Last administered on 11/10/16 13:35; Admin Dose 0.125 MG; Start 10/12/16 at 13:00; Status Future Hold Furosemide (Lasix) 40 mg AM PO Last administered on 11/14/16 08:41; Admin Dose 40 MG; Start 10/25/16 at 09:00; Status Future Hold Amiodarone HCl (Cordarone) 200 mg BID PO Last administered on 11/26/16 09:30; Admin Dose 200 MG; Start 10/24/16 at 21:00 Salmeterol Xinafoate/ Fluticasone (Advair 250/50 Diskus) 1 inh BID INH Last administered on 11/26/16 09:31; Admin Dose 1 INH; Start 11/07/16 at 09:00 Insulin Glargine (Lantus) 14 unit HS SC Last administered on 11/25/16 21:43; Admin Dose 14 UNIT; Start 11/15/16 at 21:00 Metoprolol Succinate (Toprol Xl) 25 mg DAILY PO Last administered on 11/26/16 09:29; Admin Dose 25 MG; Start 11/17/16 at 09:00 Lisinopril (Zestril) 5 mg DAILY PO Last administered on 11/26/16 09:30; Admin Dose 5 MG; Start 11/19/16 at 09:00 Bethanechol Chloride 25 mg 25 mg TID PO Last administered on 11/26/16 09:29; Admin Dose 25 MG; Start 11/20/16 at 21:00 Ferric Sodium Gluconate Complex/ Sodium Chloride (Ferrlecit/NS) 110 ml @ 110 mls/hr Q24H IVPB Last administered on 11/26/16 09:30; Admin Dose 110 MLS/HR; Start 11/23/16 at 09:00; Stop 11/27/16 at 09:59 Collagenase (Santyl) 1 applic DAILY TOP Last administered on 11/26/16 09:33; Admin Dose 1 APPLIC; Start 11/26/16 at 09:00 SOHA ALCOCER NP Nov 26, 2016 12:09 SOHA ALCOCER NP Nov 26, 2016 12:09
--- NOTE | 2016-11-26 13:45 | CONS ---
Date/Time of Note Date/Time of Note DATE: 11/26/16 TIME: 13:43 Assessment/Plan Assessment/Plan Chief Complaint/Hosp Course IMPRESSION: 1. Atrial fibrillation with rapid ventricular response.-improved HR and now back in SR by ecg 11/20 2. Congestive heart failure, systolic, acute on chronic. 3. History of cardiomyopathy with decreased left ventricular ejection fraction 20% to 25% per chart biopsy. 4. Shortness of breath. 5. Status post hypercapnic respiratory failure, status post extubation. 6. Chronic obstructive pulmonary disease. 7. Hypertension-borderline hotn today with anti-hypertensives held 8. Dyslipidemia. 9. History of automatic implantable cardioverter-defibrillator with possible discharge.-s/p interrogation with ICD shock for uncontrolled rapid AF. 10. Pneumonia. 11.Positive troponin-minimal with no sig uptrend 12.UTI-Klebs 14.Bacteremia-Klebs/persistent-most recent Bld cx's negative 15.ARF-slowly improving 16.Urinary retention-agustin in place Recc -Tele -Continue asa/Eliquis -ACEI/BB as tolerated at current doses -Continue to hold digoxin in setting of ARF and well controlled heart rates although digoxin level now down -Continue statin -Follow volume status and will continue hold lasix and follow volume status/iron worker closely -Continue abx's and f/u cx data and -awaiting placement Problems: Consultation Date/Type/Reason Admit Date/Time Sep 28, 2016 at 14:41 Initial Consult Date 09/28/16 Type of Consultation: Cardiology Reason for Consultation AF/cardiomyopathy/ICD discharge Referring Provider: DEVON MUHAMMAD MD Exam/Review of Systems Vital Signs Vitals Vital Signs Date Time Temp Pulse Resp B/P Pulse Ox O2 Delivery O2 Flow Rate FiO2 11/26/16 09:30 Nasal Cannula 3.0 11/26/16 07:20 97.6 64 20 123/65 94 Intake and Output 11/25/16 11/25/16 11/26/16 15:00 23:00 07:00 Intake Total 1800 ml 400 ml Output Total 2600 ml 1500 ml Balance -800 ml -1100 ml Exam Review of Systems: CONSTITUTIONAL: No fevers, chills. PULMONARY: No sob CARDIOVASCULAR: No chest pain/palpitations GASTROINTESTINAL: No nausea/vomiting. GENITOURINARY: No hematuria/dysuria. MUSCULOSKELETAL: No myagias/arthalgias. PSYCHIATRIC: The patient denies depression. NEUROLOGIC: No weakness Constitutional: alert Psych: no complaints ENMT: mucosa pink and moist Respiratory: clear to auscultation Cardiovascular: regular rate and rhythm Gastrointestinal: non-tender, soft Musculoskeletal: muscle tone (normal) Extremities: edema (none) Neurological: other (No focal deficits) Results Result Diagram: 11/26/16 0442 11/26/16 0442 Results 24 hrs Laboratory Tests Test 11/25/16 17:25 11/25/16 20:46 11/26/16 04:42 11/26/16 08:09 Bedside Glucose 105 128 95 White Blood Count 11.0 H Red Blood Count 2.59 L Hemoglobin 8.1 L Hematocrit 26.1 L Mean Corpuscular Volume 100.8 Mean Corpuscular Hemoglobin 31.3 Mean Corpuscular Hemoglobin Concent 31.0 L Red Cell Distribution Width 14.8 H Platelet Count 382 Mean Platelet Volume 8.5 Neutrophils % 70.5 Lymphocytes % 9.2 L Monocytes % 9.4 Eosinophils % 2.7 Basophils % 0.5 Nucleated Red Blood Cells % 0.0 Neutrophils # 7.7 H Lymphocytes # 1.0 Monocytes # 1.0 H Eosinophils # 0.3 Basophils # 0.1 Nucleated Red Blood Cells # 0.0 Sodium Level 137 Potassium Level 4.3 Chloride Level 95 L Carbon Dioxide Level 34 H Anion Gap 12 Blood Urea Nitrogen 31 H Creatinine 1.33 H Glucose Level 93 Calcium Level 9.0 Phosphorus Level 3.6 Magnesium Level 1.8 Test 11/26/16 12:05 Bedside Glucose 146 Medications Medications Current Medications IV Flush (NS 10 ml) 10 ml PRN PRN IV IV PROTOCOL Last administered on 11/11/16 08:14; Admin Dose 10 ML; Start 09/28/16 at 14:00 Ondansetron HCl (Zofran Inj) 4 mg Q6H PRN IV NAUSEA AND/OR VOMITING; Start at 15:00 Nitroglycerin (Nitroglycerin (Sl Tab) 0.4 Mg) 1 tab Q5M PRN SL CHEST PAIN; Start 09/28/16 at 15:00 Acetaminophen (Tylenol Liquid) 650 mg Q6H PRN PO PAIN LEVEL 1-3 OR FEVER Last administered on 11/13/16 05:59; Admin Dose 650 MG; Start 09/28/16 at 15:00 Acetaminophen (Tylenol Tab) 650 mg Q6H PRN PO PAIN LEVEL 1-3 OR FEVER Last administered on 11/24/16 20:31; Admin Dose 650 MG; Start 09/28/16 at 15:00 Morphine Sulfate (morphine) 2 mg Q4H PRN IV PAIN LEVEL 7-10 Last administered on 11/24/16 16:22; Admin Dose 2 MG; Start 09/28/16 at 15:00 Lorazepam (Ativan) 1 mg Q2H PRN IV ANXIETY Last administered on 10/29/16 20:56 ; Admin Dose 1 MG; Start 09/28/16 at 15:00 Docusate Sodium (Colace) 100 mg Q12H PRN PO CONSTIPATION Last administered on 08:14; Admin Dose 100 MG; Start 09/28/16 at 15:00 Famotidine (Pepcid) 20 mg Q12 PO Last administered on 11/26/16 09:30; Admin Dose 20 MG; Start 09/28/16 at 21:00 Aspirin (Aspirin) 81 mg DAILY PO Last administered on 11/26/16 09:29; Admin Dose 81 MG; Start 09/29/16 at 09:00 Atorvastatin Calcium (Lipitor) 10 mg QHS PO Last administered on 11/25/16 21: 41; Admin Dose 10 MG; Start 09/28/16 at 21:00 Tiotropium [place] (Spiriva) 1 inh DAILY INH ; Start 09/28/16 at 16:00; Status Future Hold Mupirocin (Bactroban) 1 applic BID TOP Last administered on 11/26/16 09:33; Admin Dose 1 APPLIC; Start 09/30/16 at 09:00 Diagnostic Test (Pha) (Accucheck) 1 ea 02 XX Last administered on 11/21/16 01: 36; Admin Dose 1 EA; Start 10/05/16 at 02:00 Miscellaneous Information 1 ea NOTE XX ; Start 10/04/16 at 09:00 Glucose (Glutose) 15 gm Q15M PRN PO DECREASED GLUCOSE; Start 10/04/16 at 09:00 Glucose (Glutose) 22.5 gm Q15M PRN PO DECREASED GLUCOSE; Start 10/04/16 at 09: 00 Dextrose (D50w Syringe) 25 ml Q15M PRN IV DECREASED GLUCOSE; Start 10/04/16 at 09:00 Dextrose (D50w Syringe) 50 ml Q15M PRN IV DECREASED GLUCOSE; Start 10/04/16 at 09:00 Glucagon (Glucagen) 1 mg Q15M PRN IM DECREASED GLUCOSE; Start 10/04/16 at 09:00 Glucose (Glutose) 15 gm Q15M PRN BUCCAL DECREASED GLUCOSE; Start 10/04/16 at 09 :00 Metoprolol Tartrate (Lopressor) 5 mg Q4 PRN IV HR>110 Hold SBP<100; Start 10/05 at 19:30 Montelukast Sodium (Singulair) 10 mg HS PO Last administered on 11/25/16 21:41 ; Admin Dose 10 MG; Start 10/10/16 at 21:00 Theophylline (Benji-24) 300 mg QHS PO Last administered on 11/25/16 21:42; Admin Dose 300 MG; Start 10/10/16 at 21:00 Apixaban (Eliquis) 5 mg BID PO Last administered on 11/26/16 09:30; Admin Dose 5 MG; Start 10/10/16 at 21:00 Digoxin (Digoxin) 0.125 mg DAILY@13 PO Last administered on 11/10/16 13:35; Admin Dose 0.125 MG; Start 10/12/16 at 13:00; Status Future Hold Furosemide (Lasix) 40 mg AM PO Last administered on 11/14/16 08:41; Admin Dose 40 MG; Start 10/25/16 at 09:00; Status Future Hold Amiodarone HCl (Cordarone) 200 mg BID PO Last administered on 11/26/16 09:30; Admin Dose 200 MG; Start 10/24/16 at 21:00 Salmeterol Xinafoate/ Fluticasone (Advair 250/50 Diskus) 1 inh BID INH Last administered on 11/26/16 09:31; Admin Dose 1 INH; Start 11/07/16 at 09:00 Insulin Glargine (Lantus) 14 unit HS SC Last administered on 11/25/16 21:43; Admin Dose 14 UNIT; Start 11/15/16 at 21:00 Metoprolol Succinate (Toprol Xl) 25 mg DAILY PO Last administered on 11/26/16 09:29; Admin Dose 25 MG; Start 11/17/16 at 09:00 Lisinopril (Zestril) 5 mg DAILY PO Last administered on 11/26/16 09:30; Admin Dose 5 MG; Start 11/19/16 at 09:00 Bethanechol Chloride 25 mg 25 mg TID PO Last administered on 11/26/16 12:34; Admin Dose 25 MG; Start 11/20/16 at 21:00 Ferric Sodium Gluconate Complex/ Sodium Chloride (Ferrlecit/NS) 110 ml @ 110 mls/hr Q24H IVPB Last administered on 11/26/16 09:30; Admin Dose 110 MLS/HR; Start 11/23/16 at 09:00; Stop 11/27/16 at 09:59 Collagenase (Santyl) 1 applic DAILY TOP Last administered on 11/26/16 09:33; Admin Dose 1 APPLIC; Start 11/26/16 at 09:00 СВЕТЛАНА PADRON Nov 26, 2016 13:45
[2016-11-26] MEDS: predniSONE 1 MG TAB PO SCH (17:49)
[2016-11-26 19:30] VITALS: BP 136/56; RESP 18
[2016-11-26] MEDS: MONTELUKAST 10 MG TAB PO SCH (22:13)
[2016-11-26] MEDS: ATORVASTATIN 10 MG TAB PO SCH (22:13)
[2016-11-26] MEDS: THEOPHYLLINE (SR) 300 MG CAP PO SCH (22:13)
[2016-11-26] MEDS: INSULIN GLARGINE [LANtus] 3 ML PEN SC SCH (22:14)
[2016-11-27] MEDS: ACCU-CHEK XX SCH (02:00)
[2016-11-27] MEDS: ALBUTEROL/IPRATROPIUM (NEB) 3 ML AMP HHN SCH ×4 (02:00→19:54)
[2016-11-27] MEDS: INSULIN ASPART [NOVOLOG] 3 ML PEN SC SCH ×7 (08:00→21:00)
[2016-11-27 08:43] VITALS: BP 130/60; RESP 17
[2016-11-27] MEDS: SALMETEROL/FLUTICASONE 250/50 INHA INH SCH ×2 (08:43→20:59)
[2016-11-27] MEDS: SOD FERRIC GLUC COMPLX 125 MG in SOD CHLORIDE 0.9% 100 ML IVPB SCH (08:43)
[2016-11-27] MEDS: FAMOTIDINE 20 MG TAB PO SCH ×2 (08:44→20:59)
[2016-11-27] MEDS: ASPIRIN 81 MG TAB PO SCH (08:44)
[2016-11-27] MEDS: APIXABAN 5 MG TABLET PO SCH ×2 (08:44→21:00)
[2016-11-27] MEDS: BETHANECHOL 25 MG TAB PO SCH ×3 (08:44→20:59)
[2016-11-27] MEDS: AMIODARONE 200 MG TAB PO SCH ×2 (08:49→21:07)
[2016-11-27] MEDS: COLLAGENASE 30 GM TUBE TOP SCH (08:50)
[2016-11-27] MEDS: MUPIROCIN 2% 22 GM OINT TOP SCH ×2 (08:50→20:59)
--- NOTE | 2016-11-27 11:50 | PN ---
Date/Time of Note Date/Time of Note DATE: 11/27/16 TIME: 11:47 Assessment/Plan VTE Prophylaxis VTE Prophylaxis Intervention: other (Eliquis) Lines/Catheters IV Catheter Type (from [facility]): Saline Lock Urinary Cath still in place: Yes Reason Cath still needed: urinary retention Assessment/Plan Chief Complaint/Hosp Course 1. Acute on chronic hypoxic and hypercapnic respiratory failure secondary to chronic obstructive pulmonary disease exacerbation. Continue inhaled bronchodilators and tapering dose of steroids. Status post extubation on 2016. 2. Status post Healthcare-associated pneumonia. Sputum culture positive for extended spectrum beta-Lactamases and Lauren albicans. Status post antibiotics as per infectious disease. The patient has no evidence of any septic shock. 3. Urinary tract infection with Klebsiella pneumoniae carbapenemase. Status post antibiotics as per infectious disease. 4. Congestive heart failure exacerbation. Acute on chronic systolic and diastolic dysfunction. Currently euvolemic. Diuretics on hold. 5. Ischemic cardiomyopathy, status post automatic implantable cardioverter- defibrillator placement. Continue ZEB inhibitors and beta blockers. 6. Coronary artery disease, status post coronary artery stenting. Continue dual antiplatelet therapy. 7. Essential hypertension. Continue antihypertensives. 8. Dyslipidemia. Continue statins. 9. Recent right foot injury. Status post evaluation by podiatry. Imaging negative for any fractures. 10. Type 2 diabetes mellitus. Hemoglobin A1c 6.6. Continue the patient on sliding scale insulin along with basal insulin and pre-meal insulin. 11. Paroxysmal atrial fibrillation. Currently in sinus rhythm. On Eliquis for stroke prophylaxis. Cardiology following the patient. 12. Urinary retention. The patient has a Pruett catheter in place. Being followed by urology. 13. Normocytic, normochromic anemia. Iron panel showing iron deficiency. Continue iron supplements. 14. Acute kidney injury. Monitor BUN and creatinine closely. 15. Fluid, electrolytes and nutrition. Carbohydrate controlled, low- cholesterol diet. 16. Deep venous thrombosis prophylaxis. Continue Eliquis. 17. Gastrointestinal prophylaxis. Histamine 2 receptor blockers. PLAN: Continue antibiotics as per infectious disease. Await placement. Case was discussed with Dr. Murray. Problems: Subjective 24 Hr Interval Summary Free Text/Dictation No changes in status. Exam/Review of Systems Vital Signs Vitals Vital Signs Date Time Temp Pulse Resp B/P Pulse Ox O2 Delivery O2 Flow Rate FiO2 11/27/16 08:43 99.1 68 17 130/60 88 11/27/16 07:09 Nasal Cannula 2.0 Intake and Output 11/26/16 11/26/16 11/27/16 15:00 23:00 07:00 Intake Total 1070 ml 520 ml Output Total 1200 ml 1500 ml Balance -130 ml -980 ml Exam GENERAL: This is a frail-looking 56-year-old male patient, lying in bed in mild respiratory distress. HEENT: Head normocephalic and atraumatic. Eyes, anicteric sclerae. Conjunctivae are clear. ENT: Nasal septum is midline. Oral mucosa is dry. NECK: Supple. No JVD noticed. RESPIRATORY: Bilaterally diminished breath sounds. Minimal use of accessory muscles of respiration. CARDIAC: S1, S2 heard. Regular rate and rhythm. ABDOMEN: Soft, nontender and nondistended. Bowel sounds are positive in all 4 quadrants. GENITOURINARY: Pruett catheter in place. EXTREMITIES: No cyanosis. Clubbing of bilateral upper digits. Bilateral lower extremity edema. NEUROLOGIC: The patient is awake, alert, and oriented. Results Result Diagram: 11/26/16 0442 11/26/16 0442 Results 24 hrs Laboratory Tests Test 11/26/16 12:05 11/26/16 15:09 11/26/16 17:37 11/26/16 20:54 Bedside Glucose 146 118 146 Theophylline Level 6.5 L Test 11/27/16 08:05 Bedside Glucose 106 Medications Medications Current Medications IV Flush (NS 10 ml) 10 ml PRN PRN IV IV PROTOCOL Last administered on 11/11/16 08:14; Admin Dose 10 ML; Start 09/28/16 at 14:00 Ondansetron HCl (Zofran Inj) 4 mg Q6H PRN IV NAUSEA AND/OR VOMITING; Start at 15:00 Nitroglycerin (Nitroglycerin (Sl Tab) 0.4 Mg) 1 tab Q5M PRN SL CHEST PAIN; Start 09/28/16 at 15:00 Acetaminophen (Tylenol Liquid) 650 mg Q6H PRN PO PAIN LEVEL 1-3 OR FEVER Last administered on 11/13/16 05:59; Admin Dose 650 MG; Start 09/28/16 at 15:00 Acetaminophen (Tylenol Tab) 650 mg Q6H PRN PO PAIN LEVEL 1-3 OR FEVER Last administered on 11/24/16 20:31; Admin Dose 650 MG; Start 09/28/16 at 15:00 Morphine Sulfate (morphine) 2 mg Q4H PRN IV PAIN LEVEL 7-10 Last administered on 11/24/16 16:22; Admin Dose 2 MG; Start 09/28/16 at 15:00 Lorazepam (Ativan) 1 mg Q2H PRN IV ANXIETY Last administered on 10/29/16 20:56 ; Admin Dose 1 MG; Start 09/28/16 at 15:00 Docusate Sodium (Colace) 100 mg Q12H PRN PO CONSTIPATION Last administered on 08:14; Admin Dose 100 MG; Start 09/28/16 at 15:00 Famotidine (Pepcid) 20 mg Q12 PO Last administered on 11/27/16 08:44; Admin Dose 20 MG; Start 09/28/16 at 21:00 Aspirin (Aspirin) 81 mg DAILY PO Last administered on 11/27/16 08:44; Admin Dose 81 MG; Start 09/29/16 at 09:00 Atorvastatin Calcium (Lipitor) 10 mg QHS PO Last administered on 11/26/16 22: 13; Admin Dose 10 MG; Start 09/28/16 at 21:00 Tiotropium [place] (Spiriva) 1 inh DAILY INH ; Start 09/28/16 at 16:00; Status Future Hold Mupirocin (Bactroban) 1 applic BID TOP Last administered on 11/27/16 08:50; Admin Dose 1 APPLIC; Start 09/30/16 at 09:00 Diagnostic Test (Pha) (Accucheck) 1 ea 02 XX Last administered on 11/21/16 01: 36; Admin Dose 1 EA; Start 10/05/16 at 02:00 Miscellaneous Information 1 ea NOTE XX ; Start 10/04/16 at 09:00 Glucose (Glutose) 15 gm Q15M PRN PO DECREASED GLUCOSE; Start 10/04/16 at 09:00 Glucose (Glutose) 22.5 gm Q15M PRN PO DECREASED GLUCOSE; Start 10/04/16 at 09: 00 Dextrose (D50w Syringe) 25 ml Q15M PRN IV DECREASED GLUCOSE; Start 10/04/16 at 09:00 Dextrose (D50w Syringe) 50 ml Q15M PRN IV DECREASED GLUCOSE; Start 10/04/16 at 09:00 Glucagon (Glucagen) 1 mg Q15M PRN IM DECREASED GLUCOSE; Start 10/04/16 at 09:00 Glucose (Glutose) 15 gm Q15M PRN BUCCAL DECREASED GLUCOSE; Start 10/04/16 at 09 :00 Metoprolol Tartrate (Lopressor) 5 mg Q4 PRN IV HR>110 Hold SBP<100; Start 10/05 at 19:30 Montelukast Sodium (Singulair) 10 mg HS PO Last administered on 11/26/16 22:13 ; Admin Dose 10 MG; Start 10/10/16 at 21:00 Theophylline (Benji-24) 300 mg QHS PO Last administered on 11/26/16 22:13; Admin Dose 300 MG; Start 10/10/16 at 21:00 Apixaban (Eliquis) 5 mg BID PO Last administered on 11/27/16 08:44; Admin Dose 5 MG; Start 10/10/16 at 21:00 Digoxin (Digoxin) 0.125 mg DAILY@13 PO Last administered on 11/10/16 13:35; Admin Dose 0.125 MG; Start 10/12/16 at 13:00; Status Future Hold Furosemide (Lasix) 40 mg AM PO Last administered on 11/14/16 08:41; Admin Dose 40 MG; Start 10/25/16 at 09:00; Status Future Hold Amiodarone HCl (Cordarone) 200 mg BID PO Last administered on 11/27/16 08:49; Admin Dose 200 MG; Start 10/24/16 at 21:00 Salmeterol Xinafoate/ Fluticasone (Advair 250/50 Diskus) 1 inh BID INH Last administered on 11/27/16 08:43; Admin Dose 1 INH; Start 11/07/16 at 09:00 Insulin Glargine (Lantus) 14 unit HS SC Last administered on 11/26/16 22:14; Admin Dose 14 UNIT; Start 11/15/16 at 21:00 Metoprolol Succinate (Toprol Xl) 25 mg DAILY PO Last administered on 11/26/16 09:29; Admin Dose 25 MG; Start 11/17/16 at 09:00 Lisinopril (Zestril) 5 mg DAILY PO Last administered on 11/26/16 09:30; Admin Dose 5 MG; Start 11/19/16 at 09:00 Bethanechol Chloride (Urecholine) 25 mg TID PO Last administered on 11/27/16 08:44; Admin Dose 25 MG; Start 11/20/16 at 21:00 Collagenase (Santyl) 1 applic DAILY TOP Last administered on 11/27/16 08:50; Admin Dose 1 APPLIC; Start 11/26/16 at 09:00 SOHA ALCOCER NP Nov 27, 2016 11:50 SOHA ALCOCER NP Nov 27, 2016 11:50
[2016-11-27 12:01] VITALS: BP 108/57; PULSE 75; RESP 18
[2016-11-27] MEDS: METOPROLOL (XL) 25 MG TAB PO SCH (12:01)
[2016-11-27] MEDS: LISINOPRIL 5 MG TAB PO SCH (12:10)
--- NOTE | 2016-11-27 14:33 | CONS ---
Date/Time of Note Date/Time of Note DATE: 11/27/16 TIME: 14:32 Assessment/Plan Assessment/Plan Chief Complaint/Hosp Course IMPRESSION: 1. Atrial fibrillation with rapid ventricular response.-improved HR and now back in SR by ecg 11/20 2. Congestive heart failure, systolic, acute on chronic. 3. History of cardiomyopathy with decreased left ventricular ejection fraction 20% to 25% per chart biopsy. 4. Shortness of breath. 5. Status post hypercapnic respiratory failure, status post extubation. 6. Chronic obstructive pulmonary disease. 7. Hypertension-borderline hotn today with anti-hypertensives held 8. Dyslipidemia. 9. History of automatic implantable cardioverter-defibrillator with possible discharge.-s/p interrogation with ICD shock for uncontrolled rapid AF. 10. Pneumonia. 11.Positive troponin-minimal with no sig uptrend 12.UTI-Klebs 14.Bacteremia-Klebs/persistent-most recent Bld cx's negative 15.ARF-slowly improving 16.Urinary retention-agustin in place Recc -Tele -Continue asa/Eliquis -ACEI/BB as tolerated at current doses -Continue to hold digoxin in setting of ARF and well controlled heart rates although digoxin level now down -Continue statin -Follow volume status and will continue hold lasix and follow volume status/engineering program manager closely -Continue abx's and f/u cx data and -awaiting placement Problems: Consultation Date/Type/Reason Admit Date/Time Sep 28, 2016 at 14:41 Initial Consult Date 09/28/16 Type of Consultation: Cardiology Reason for Consultation AF/cardiomyopathy/ICD discharge Referring Provider: DEVON MUHAMMAD MD Exam/Review of Systems Vital Signs Vitals Vital Signs Date Time Temp Pulse Resp B/P Pulse Ox O2 Delivery O2 Flow Rate FiO2 11/27/16 13:36 92 3.0 11/27/16 13:34 78 18 Nasal Cannula 11/27/16 12:01 98.1 108/57 Intake and Output 11/26/16 11/26/16 11/27/16 15:00 23:00 07:00 Intake Total 1070 ml 520 ml Output Total 1200 ml 1500 ml Balance -130 ml -980 ml Exam Review of Systems: CONSTITUTIONAL: No fevers, chills. PULMONARY: No sob CARDIOVASCULAR: No chest pain/palpitations GASTROINTESTINAL: No nausea/vomiting. GENITOURINARY: No hematuria/dysuria. MUSCULOSKELETAL: No myagias/arthalgias. PSYCHIATRIC: The patient denies depression. NEUROLOGIC: No weakness Constitutional: alert, oriented Psych: no complaints Head: normocephalic ENMT: mucosa pink and moist Neck: jvd (9 cm water), supple Respiratory: clear to auscultation Cardiovascular: regular rate and rhythm Gastrointestinal: non-tender, soft Musculoskeletal: muscle tone (normal) Extremities: edema (none) Neurological: other (No focal deficits) Results Result Diagram: 11/26/162 11/26/16 0442 Results 24 hrs Laboratory Tests Test 11/26/16 15:09 11/26/16 17:37 11/26/16 20:54 11/27/16 08:05 Theophylline Level 6.5 L Bedside Glucose 118 146 106 Test 11/27/16 11:39 Bedside Glucose 168 Medications Medications Current Medications IV Flush (NS 10 ml) 10 ml PRN PRN IV IV PROTOCOL Last administered on 11/11/16 08:14; Admin Dose 10 ML; Start 09/28/16 at 14:00 Ondansetron HCl (Zofran Inj) 4 mg Q6H PRN IV NAUSEA AND/OR VOMITING; Start at 15:00 Nitroglycerin (Nitroglycerin (Sl Tab) 0.4 Mg) 1 tab Q5M PRN SL CHEST PAIN; Start 09/28/16 at 15:00 Acetaminophen (Tylenol Liquid) 650 mg Q6H PRN PO PAIN LEVEL 1-3 OR FEVER Last administered on 11/13/16 05:59; Admin Dose 650 MG; Start 09/28/16 at 15:00 Acetaminophen (Tylenol Tab) 650 mg Q6H PRN PO PAIN LEVEL 1-3 OR FEVER Last administered on 11/24/16 20:31; Admin Dose 650 MG; Start 09/28/16 at 15:00 Morphine Sulfate (morphine) 2 mg Q4H PRN IV PAIN LEVEL 7-10 Last administered on 11/24/16 16:22; Admin Dose 2 MG; Start 09/28/16 at 15:00 Lorazepam (Ativan) 1 mg Q2H PRN IV ANXIETY Last administered on 10/29/16 20:56 ; Admin Dose 1 MG; Start 09/28/16 at 15:00 Docusate Sodium (Colace) 100 mg Q12H PRN PO CONSTIPATION Last administered on 08:14; Admin Dose 100 MG; Start 09/28/16 at 15:00 Famotidine (Pepcid) 20 mg Q12 PO Last administered on 11/27/16 08:44; Admin Dose 20 MG; Start 09/28/16 at 21:00 Aspirin (Aspirin) 81 mg DAILY PO Last administered on 11/27/16 08:44; Admin Dose 81 MG; Start 09/29/16 at 09:00 Atorvastatin Calcium (Lipitor) 10 mg QHS PO Last administered on 11/26/16 22: 13; Admin Dose 10 MG; Start 09/28/16 at 21:00 Tiotropium [place] (Spiriva) 1 inh DAILY INH ; Start 09/28/16 at 16:00; Status Future Hold Mupirocin (Bactroban) 1 applic BID TOP Last administered on 11/27/16 08:50; Admin Dose 1 APPLIC; Start 09/30/16 at 09:00 Diagnostic Test (Pha) (Accucheck) 1 ea 02 XX Last administered on 11/21/16 01: 36; Admin Dose 1 EA; Start 10/05/16 at 02:00 Miscellaneous Information 1 ea NOTE XX ; Start 10/04/16 at 09:00 Glucose (Glutose) 15 gm Q15M PRN PO DECREASED GLUCOSE; Start 10/04/16 at 09:00 Glucose (Glutose) 22.5 gm Q15M PRN PO DECREASED GLUCOSE; Start 10/04/16 at 09: 00 Dextrose (D50w Syringe) 25 ml Q15M PRN IV DECREASED GLUCOSE; Start 10/04/16 at 09:00 Dextrose (D50w Syringe) 50 ml Q15M PRN IV DECREASED GLUCOSE; Start 10/04/16 at 09:00 Glucagon (Glucagen) 1 mg Q15M PRN IM DECREASED GLUCOSE; Start 10/04/16 at 09:00 Glucose (Glutose) 15 gm Q15M PRN BUCCAL DECREASED GLUCOSE; Start 10/04/16 at 09 :00 Metoprolol Tartrate (Lopressor) 5 mg Q4 PRN IV HR>110 Hold SBP<100; Start 10/05 at 19:30 Montelukast Sodium (Singulair) 10 mg HS PO Last administered on 11/26/16 22:13 ; Admin Dose 10 MG; Start 10/10/16 at 21:00 Theophylline (Benji-24) 300 mg QHS PO Last administered on 11/26/16 22:13; Admin Dose 300 MG; Start 10/10/16 at 21:00 Apixaban (Eliquis) 5 mg BID PO Last administered on 11/27/16 08:44; Admin Dose 5 MG; Start 10/10/16 at 21:00 Digoxin (Digoxin) 0.125 mg DAILY@13 PO Last administered on 11/10/16 13:35; Admin Dose 0.125 MG; Start 10/12/16 at 13:00; Status Future Hold Furosemide (Lasix) 40 mg AM PO Last administered on 11/14/16 08:41; Admin Dose 40 MG; Start 10/25/16 at 09:00; Status Future Hold Amiodarone HCl (Cordarone) 200 mg BID PO Last administered on 11/27/16 08:49; Admin Dose 200 MG; Start 10/24/16 at 21:00 Salmeterol Xinafoate/ Fluticasone (Advair 250/50 Diskus) 1 inh BID INH Last administered on 11/27/16 08:43; Admin Dose 1 INH; Start 11/07/16 at 09:00 Insulin Glargine (Lantus) 14 unit HS SC Last administered on 11/26/16 22:14; Admin Dose 14 UNIT; Start 11/15/16 at 21:00 Metoprolol Succinate (Toprol Xl) 25 mg DAILY PO Last administered on 11/26/16 09:29; Admin Dose 25 MG; Start 11/17/16 at 09:00 Lisinopril (Zestril) 5 mg DAILY PO Last administered on 11/26/16 09:30; Admin Dose 5 MG; Start 11/19/16 at 09:00 Bethanechol Chloride (Urecholine) 25 mg TID PO Last administered on 11/27/16 13:12; Admin Dose 25 MG; Start 11/20/16 at 21:00 Collagenase (Santyl) 1 applic DAILY TOP Last administered on 11/27/16 08:50; Admin Dose 1 APPLIC; Start 11/26/16 at 09:00 СВЕТЛАНА PADRON 24, 2017 14:33
[2016-11-27] MEDS: predniSONE 1 MG TAB PO SCH (17:51)
--- NOTE | 2016-11-27 20:03 | PN ---
DATE: 11/27/2016 SUBJECTIVE: Urinary retention. Patient does have indwelling Pruett catheter. The patient is comfor table. OBJECTIVE: VITAL SIGNS: The patient is afebrile, his temperature is 98.1, blood pressure 108/57, pulse is 78, respiration 18. GENITOURINARY: The Pruett catheter that he has is draining clear urine. There is no bleeding in the urine anymore. LABORATORY DATA: His CBC shows a white count of 11.0, hemoglobin 8.1, hematocrit 26.1. The BUN is 31, creatinine 1.33. Electrolytes are normal. IMPRESSION: Urinary retention. PLAN: To keep the Pruett catheter in and connect it to a drainage bag, and the patient has a placeme nt problem at the present, so, whenever they find a good placement for him he should be able to go. Dictated By: JOSÉ PATTERSON MD BB/NANDO Conf#: [id number] DID#: [id number]
[2016-11-27] MEDS: MONTELUKAST 10 MG TAB PO SCH (20:59)
[2016-11-27] MEDS: THEOPHYLLINE (SR) 300 MG CAP PO SCH (21:00)
[2016-11-27] MEDS: ATORVASTATIN 10 MG TAB PO SCH (21:02)
[2016-11-27] MEDS: INSULIN GLARGINE [LANtus] 3 ML PEN SC SCH (21:05)
[2016-11-27 21:16] VITALS: BP 128/65; RESP 18
[2016-11-28] MEDS: ALBUTEROL/IPRATROPIUM (NEB) 3 ML AMP HHN SCH ×4 (01:32→19:30)
[2016-11-28] MEDS: ACCU-CHEK XX SCH (02:00)
[2016-11-28] MEDS: INSULIN ASPART [NOVOLOG] 3 ML PEN SC SCH ×7 (08:00→21:20)
[2016-11-28 08:04] VITALS: BP 111/57; RESP 20
[2016-11-28] MEDS: METOPROLOL (XL) 25 MG TAB PO SCH (09:00)
[2016-11-28] MEDS: LISINOPRIL 5 MG TAB PO SCH (09:00)
[2016-11-28] MEDS: AMIODARONE 200 MG TAB PO SCH ×2 (09:36→21:15)
[2016-11-28] MEDS: ASPIRIN 81 MG TAB PO SCH (09:36)
[2016-11-28] MEDS: BETHANECHOL 25 MG TAB PO SCH ×3 (09:36→21:15)
[2016-11-28] MEDS: FAMOTIDINE 20 MG TAB PO SCH ×2 (09:37→21:14)
[2016-11-28] MEDS: APIXABAN 5 MG TABLET PO SCH ×2 (09:37→21:15)
--- NOTE | 2016-11-28 09:38 | PN ---
Date/Time of Note Date/Time of Note DATE: 11/28/16 TIME: 09:37 Assessment/Plan VTE Prophylaxis VTE Prophylaxis Intervention: other (Eliquis) Lines/Catheters [facility]from [facility] Saline Lock Urinary Cath still in place: Yes Reason Cath still needed: urinary retention Assessment/Plan Chief Complaint/Hosp Course 1. Acute on chronic hypoxic and hypercapnic respiratory failure secondary to chronic obstructive pulmonary disease exacerbation. Continue inhaled bronchodilators and tapering dose of steroids. Status post extubation on 2016. 2. Status post Healthcare-associated pneumonia. Sputum culture positive for extended spectrum beta-Lactamases and Lauren albicans. Status post antibiotics as per infectious disease. The patient has no evidence of any septic shock. 3. Urinary tract infection with Klebsiella pneumoniae carbapenemase. Status post antibiotics as per infectious disease. 4. Congestive heart failure exacerbation. Acute on chronic systolic and diastolic dysfunction. Currently euvolemic. Diuretics on hold. 5. Ischemic cardiomyopathy, status post automatic implantable cardioverter- defibrillator placement. Continue ZEB inhibitors and beta blockers. 6. Coronary artery disease, status post coronary artery stenting. Continue dual antiplatelet therapy. 7. Essential hypertension. Continue antihypertensives. 8. Dyslipidemia. Continue statins. 9. Recent right foot injury. Status post evaluation by podiatry. Imaging negative for any fractures. 10. Type 2 diabetes mellitus. Hemoglobin A1c 6.6. Continue the patient on sliding scale insulin along with basal insulin and pre-meal insulin. 11. Paroxysmal atrial fibrillation. Currently in sinus rhythm. On Eliquis for stroke prophylaxis. Cardiology following the patient. 12. Urinary retention. The patient has a Pruett catheter in place. Being followed by urology. 13. Normocytic, normochromic anemia. Iron panel showing iron deficiency. Continue iron supplements. 14. Acute kidney injury. Monitor BUN and creatinine closely. 15. Fluid, electrolytes and nutrition. Carbohydrate controlled, low- cholesterol diet. 16. Deep venous thrombosis prophylaxis. Continue Eliquis. 17. Gastrointestinal prophylaxis. Histamine 2 receptor blockers. PLAN: Continue current management. Await placement. Case was discussed with Dr. Murray. Problems: Subjective 24 Hr Interval Summary Free Text/Dictation No changes in status. Awaiting placement. Exam/Review of Systems Vital Signs Vitals Vital Signs Date Time Temp Pulse Resp B/P Pulse Ox O2 Delivery O2 Flow Rate FiO2 11/28/16 09:07 72 18 96 Nasal Cannula 2.0 11/28/16 08:04 99.3 111/57 Intake and Output 11/27/16 11/27/16 11/28/16 15:00 23:00 07:00 Intake Total 1270 ml 940 ml Output Total 725 ml 1800 ml Balance 545 ml -860 ml Exam GENERAL: This is a frail-looking 56-year-old male patient, lying in bed in mild respiratory distress. HEENT: Head normocephalic and atraumatic. Eyes, anicteric sclerae. Conjunctivae are clear. ENT: Nasal septum is midline. Oral mucosa is dry. NECK: Supple. No JVD noticed. RESPIRATORY: Bilaterally diminished breath sounds. Minimal use of accessory muscles of respiration. CARDIAC: S1, S2 heard. Regular rate and rhythm. ABDOMEN: Soft, nontender and nondistended. Bowel sounds are positive in all 4 quadrants. GENITOURINARY: Pruett catheter in place. EXTREMITIES: No cyanosis. Clubbing of bilateral upper digits. Bilateral lower extremity edema. NEUROLOGIC: The patient is awake, alert, and oriented. Results Result Diagram: 11/26/16 0442 11/26/16 0442 Results 24 hrs Laboratory Tests Test 11/27/16 11:39 11/27/16 17:01 11/27/16 21:02 11/28/16 09:03 Bedside Glucose 168 135 142 104 Medications Medications Current Medications IV Flush (NS 10 ml) 10 ml PRN PRN IV IV PROTOCOL Last administered on 11/11/16 08:14; Admin Dose 10 ML; Start 09/28/16 at 14:00 Ondansetron HCl (Zofran Inj) 4 mg Q6H PRN IV NAUSEA AND/OR VOMITING; Start at 15:00 Nitroglycerin (Nitroglycerin (Sl Tab) 0.4 Mg) 1 tab Q5M PRN SL CHEST PAIN; Start 09/28/16 at 15:00 Acetaminophen (Tylenol Liquid) 650 mg Q6H PRN PO PAIN LEVEL 1-3 OR FEVER Last administered on 11/13/16 05:59; Admin Dose 650 MG; Start 09/28/16 at 15:00 Acetaminophen (Tylenol Tab) 650 mg Q6H PRN PO PAIN LEVEL 1-3 OR FEVER Last administered on 11/24/16 20:31; Admin Dose 650 MG; Start 09/28/16 at 15:00 Morphine Sulfate (morphine) 2 mg Q4H PRN IV PAIN LEVEL 7-10 Last administered on 11/24/16 16:22; Admin Dose 2 MG; Start 09/28/16 at 15:00 Lorazepam (Ativan) 1 mg Q2H PRN IV ANXIETY Last administered on 10/29/16 20:56 ; Admin Dose 1 MG; Start 09/28/16 at 15:00 Docusate Sodium (Colace) 100 mg Q12H PRN PO CONSTIPATION Last administered on 08:14; Admin Dose 100 MG; Start 09/28/16 at 15:00 Famotidine (Pepcid) 20 mg Q12 PO Last administered on 11/27/16 20:59; Admin Dose 20 MG; Start 09/28/16 at 21:00 Aspirin (Aspirin) 81 mg DAILY PO Last administered on 11/27/16 08:44; Admin Dose 81 MG; Start 09/29/16 at 09:00 Atorvastatin Calcium (Lipitor) 10 mg QHS PO Last administered on 11/27/16 21: 02; Admin Dose 10 MG; Start 09/28/16 at 21:00 Tiotropium [place] (Spiriva) 1 inh DAILY INH ; Start 09/28/16 at 16:00; Status Future Hold Mupirocin (Bactroban) 1 applic BID TOP Last administered on 11/27/16 20:59; Admin Dose 1 APPLIC; Start 09/30/16 at 09:00 Diagnostic Test (Pha) (Accucheck) 1 ea 02 XX Last administered on 11/21/16 01: 36; Admin Dose 1 EA; Start 10/05/16 at 02:00 Miscellaneous Information 1 ea NOTE XX ; Start 10/04/16 at 09:00 Glucose (Glutose) 15 gm Q15M PRN PO DECREASED GLUCOSE; Start 10/04/16 at 09:00 Glucose (Glutose) 22.5 gm Q15M PRN PO DECREASED GLUCOSE; Start 10/04/16 at 09: 00 Dextrose (D50w Syringe) 25 ml Q15M PRN IV DECREASED GLUCOSE; Start 10/04/16 at 09:00 Dextrose (D50w Syringe) 50 ml Q15M PRN IV DECREASED GLUCOSE; Start 10/04/16 at 09:00 Glucagon (Glucagen) 1 mg Q15M PRN IM DECREASED GLUCOSE; Start 10/04/16 at 09:00 Glucose (Glutose) 15 gm Q15M PRN BUCCAL DECREASED GLUCOSE; Start 10/04/16 at 09 :00 Metoprolol Tartrate (Lopressor) 5 mg Q4 PRN IV HR>110 Hold SBP<100; Start 10/05 at 19:30 Montelukast Sodium (Singulair) 10 mg HS PO Last administered on 11/27/16 20:59 ; Admin Dose 10 MG; Start 10/10/16 at 21:00 Theophylline (Benji-24) 300 mg QHS PO Last administered on 11/27/16 21:00; Admin Dose 300 MG; Start 10/10/16 at 21:00 Apixaban (Eliquis) 5 mg BID PO Last administered on 11/27/16 21:00; Admin Dose 5 MG; Start 10/10/16 at 21:00 Digoxin (Digoxin) 0.125 mg DAILY@13 PO Last administered on 11/10/16 13:35; Admin Dose 0.125 MG; Start 10/12/16 at 13:00; Status Future Hold Furosemide (Lasix) 40 mg AM PO Last administered on 11/14/16 08:41; Admin Dose 40 MG; Start 10/25/16 at 09:00; Status Future Hold Amiodarone HCl (Cordarone) 200 mg BID PO Last administered on 11/27/16 21:07; Admin Dose 200 MG; Start 10/24/16 at 21:00 Salmeterol Xinafoate/ Fluticasone (Advair 250/50 Diskus) 1 inh BID INH Last administered on 11/27/16 20:59; Admin Dose 1 INH; Start 11/07/16 at 09:00 Insulin Glargine (Lantus) 14 unit HS SC Last administered on 11/27/16 21:05; Admin Dose 14 UNIT; Start 11/15/16 at 21:00 Metoprolol Succinate (Toprol Xl) 25 mg DAILY PO Last administered on 11/27/16 12:01; Admin Dose 25 MG; Start 11/17/16 at 09:00 Lisinopril (Zestril) 5 mg DAILY PO Last administered on 11/26/16 09:30; Admin Dose 5 MG; Start 11/19/16 at 09:00 Bethanechol Chloride (Urecholine) 25 mg TID PO Last administered on 11/27/16 20:59; Admin Dose 25 MG; Start 11/20/16 at 21:00 Collagenase (Santyl) 1 applic DAILY TOP Last administered on 11/27/16 08:50; Admin Dose 1 APPLIC; Start 11/26/16 at 09:00 SOHA ALCOCER NP Nov 28, 2016 09:38
[2016-11-28] MEDS: COLLAGENASE 30 GM TUBE TOP SCH (09:39)
[2016-11-28] MEDS: SALMETEROL/FLUTICASONE 250/50 INHA INH SCH ×2 (09:39→21:14)
[2016-11-28] MEDS: MUPIROCIN 2% 22 GM OINT TOP SCH ×2 (09:39→21:14)
--- NOTE | 2016-11-28 13:45 | PN ---
DATE: 11/28/2016 SUBJECTIVE: The patient offers no complaint of chest pain. No shortness of breath. PHYSICAL EXAMINATION: VITAL SIGNS: Stable, blood pressure 130/60 highest and 108/567 is the lowest blood pressure yesterd ay. Otherwise, vital signs are stable. HEENT: Head is normocephalic. He has facial droop. NECK: JVP not raised. Carotid pulses with normal upstrokes without any bruits or murmurs. No thyr omegaly or lymphadenopathy appreciated. CHEST: Bilaterally symmetrical. Nontender chest. CARDIAC: PMI localized in the fourth intercostal space in the midclavicular line. S1 and S2 are re gular. A I/ systolic murmur is heard at the apex. LUNGS: Demonstrate clear lung walker to percussion and auscultation. ABDOMEN: Soft, nontender belly. EXTREMITIES: No pedal edema. No clubbing, no cyanosis. LABORATORY DATA: There are no new labs today. IMPRESSION: 1. History of atrial fibrillation, but now in sinus rhythm. 2. Congestive heart failure, systolic, acute on chronic, which is again compensated. 3. History of cardiomyopathy with an ejection fraction of 20% to 25%. 4. Chronic obstructive pulmonary disease. 5. History of hypertension, which is under control at this stage. 6. Dyslipidemia. 7. History of AICD. RECOMMENDATIONS: Continue same cardiac meds and same regimen from cardiac standpoint. Dictated By: SHANE NOVAK MD, RA/NANDO Conf#: [id number] DID#: [id number]
[2016-11-28] MEDS: predniSONE 1 MG TAB PO SCH (17:20)
[2016-11-28 20:01] VITALS: BP 115/63; RESP 19
[2016-11-28] MEDS: ATORVASTATIN 10 MG TAB PO SCH (21:14)
[2016-11-28] MEDS: THEOPHYLLINE (SR) 300 MG CAP PO SCH (21:15)
[2016-11-28] MEDS: MONTELUKAST 10 MG TAB PO SCH (21:15)
[2016-11-28] MEDS: INSULIN GLARGINE [LANtus] 3 ML PEN SC SCH (21:21)
[2016-11-29] MEDS: ALBUTEROL/IPRATROPIUM (NEB) 3 ML AMP HHN SCH ×4 (01:42→21:35)
[2016-11-29] MEDS: ACCU-CHEK XX SCH (02:56)
--- NOTE | 2016-11-29 03:30 | PN ---
DATE: 11/28/2016 SUBJECTIVE: Urinary retention. The patient does have an indwelling Pruett catheter. The patient is comfortable and denies having any pain. OBJECTIVE VITAL SIGNS: His temperature is 99.3, pulse is 64, respiration is 18, blood pressure 111/57. ABDOMEN: Soft. GENITOURINARY: The Pruett catheter is draining clear urine. PLAN: To keep the Pruett catheter in and if the patient is to be discharged, he should go with the [place] catheter and he will benefit from going to a jail facility, where somebody could emp ty the bag for him and have the catheter changed regularly, once a month or earlier if needed. Dictated By: JOSÉ DOS SANTOS/NANDO Conf#: [id number] DID#: [id number]
[2016-11-29] MEDS: INSULIN ASPART [NOVOLOG] 3 ML PEN SC SCH ×7 (08:00→21:00)
[2016-11-29 08:15] VITALS: BP 144/83; RESP 22
[2016-11-29] MEDS: ASPIRIN 81 MG TAB PO SCH (09:44)
[2016-11-29] MEDS: SALMETEROL/FLUTICASONE 250/50 INHA INH SCH ×2 (09:44→21:58)
[2016-11-29] MEDS: AMIODARONE 200 MG TAB PO SCH ×2 (09:45→21:59)
[2016-11-29] MEDS: FAMOTIDINE 20 MG TAB PO SCH ×2 (09:45→21:57)
[2016-11-29] MEDS: APIXABAN 5 MG TABLET PO SCH ×2 (09:45→21:57)
[2016-11-29] MEDS: BETHANECHOL 25 MG TAB PO SCH ×3 (09:46→21:57)
[2016-11-29] MEDS: LISINOPRIL 5 MG TAB PO SCH (09:46)
[2016-11-29] MEDS: METOPROLOL (XL) 25 MG TAB PO SCH (09:46)
[2016-11-29] MEDS: COLLAGENASE 30 GM TUBE TOP SCH (09:47)
[2016-11-29] MEDS: MUPIROCIN 2% 22 GM OINT TOP SCH ×2 (09:47→21:58)
--- NOTE | 2016-11-29 10:27 | PN ---
DATE: 11/29/2016 On questioning, the patient has no new complaint. No chest pain, no shortness of breath. EXAMINATION: VITAL SIGNS: Stable. Blood pressure last one was last night at 115/63, heart rate 71, respiratory rate 19. NECK: JVP not raised and carotid pulses with normal upstrokes. CHEST: Bilaterally symmetrical. HEART: S1, S2 regular with a I/ systolic murmur heard best at the apex. LUNGS: Clear to percussion and auscultation. ABDOMEN: Soft, nontender belly. EXTREMITIES: No pedal edema, no clubbing, no cyanosis and good pedal pulses. LABORATORY DATA AND IMAGING: There are no labs today except blood sugar is elevated at 234 and no n ew imaging studies today. IMPRESSION: 1. Status post atrial fibrillation, now in sinus rhythm. 2. Status post congestive heart failure, systolic, with acute on chronic which seems to be compensa ruby. 3. History of cardiomyopathy with ejection fraction of 20% to 25%. 4. Chronic obstructive pulmonary disease. 5. Hypertension which seems to be well controlled at present. 6. Dyslipidemia. 7. History of AICD. RECOMMENDATIONS: Continue same treatment from cardiac standpoint. Dictated By: SHANE NOVAK MD, RA/NANDO Conf#: [id number] DID#: [id number]
--- NOTE | 2016-11-29 11:00 | PN ---
Date/Time of Note Date/Time of Note DATE: 11/29/16 TIME: 10:59 Assessment/Plan VTE Prophylaxis VTE Prophylaxis Intervention: other (Eliquis) Lines/Catheters IV Catheter Type (from [facility] Peripheral IV Urinary Cath still in place: Yes Reason Cath still needed: urinary retention Assessment/Plan Chief Complaint/Hosp Course 1. Acute on chronic hypoxic and hypercapnic respiratory failure secondary to chronic obstructive pulmonary disease exacerbation. Continue inhaled bronchodilators and tapering dose of steroids. Status post extubation on 2016. 2. Status post Healthcare-associated pneumonia. Sputum culture positive for extended spectrum beta-Lactamases and Lauren albicans. Status post antibiotics as per infectious disease. The patient has no evidence of any septic shock. 3. Urinary tract infection with Klebsiella pneumoniae carbapenemase. Status post antibiotics as per infectious disease. 4. Congestive heart failure exacerbation. Acute on chronic systolic and diastolic dysfunction. Currently euvolemic. Diuretics on hold. 5. Ischemic cardiomyopathy, status post automatic implantable cardioverter- defibrillator placement. Continue ZEB inhibitors and beta blockers. 6. Coronary artery disease, status post coronary artery stenting. Continue dual antiplatelet therapy. 7. Essential hypertension. Continue antihypertensives. 8. Dyslipidemia. Continue statins. 9. Recent right foot injury. Status post evaluation by podiatry. Imaging negative for any fractures. 10. Type 2 diabetes mellitus. Hemoglobin A1c 6.6. Continue the patient on sliding scale insulin along with basal insulin and pre-meal insulin. 11. Paroxysmal atrial fibrillation. Currently in sinus rhythm. On Eliquis for stroke prophylaxis. Cardiology following the patient. 12. Urinary retention. The patient has a Pruett catheter in place. Being followed by urology. 13. Normocytic, normochromic anemia. Iron panel showing iron deficiency. Continue iron supplements. 14. Acute kidney injury. Monitor BUN and creatinine closely. 15. Fluid, electrolytes and nutrition. Carbohydrate controlled, low- cholesterol diet. 16. Deep venous thrombosis prophylaxis. Continue Eliquis. 17. Gastrointestinal prophylaxis. Histamine 2 receptor blockers. PLAN: Continue current management. Await placement. Case was discussed with Dr. Murray. Problems: Subjective 24 Hr Interval Summary Free Text/Dictation No changes in status. Exam/Review of Systems Vital Signs Vitals Vital Signs Date Time Temp Pulse Resp B/P Pulse Ox O2 Delivery O2 Flow Rate FiO2 11/29/16 08:15 98.8 68 22 144/83 90 11/29/16 08:06 Nasal Cannula 2.0 Intake and Output 11/28/16 11/28/16 11/29/16 14:59 22:59 06:59 Intake Total 1040 ml 800 ml Output Total 1200 ml 2700 ml Balance -160 ml -1900 ml Exam GENERAL: This is a frail-looking 56-year-old male patient, lying in bed in mild respiratory distress. HEENT: Head normocephalic and atraumatic. Eyes, anicteric sclerae. Conjunctivae are clear. ENT: Nasal septum is midline. Oral mucosa is dry. NECK: Supple. No JVD noticed. RESPIRATORY: Bilaterally diminished breath sounds. Minimal use of accessory muscles of respiration. CARDIAC: S1, S2 heard. Regular rate and rhythm. ABDOMEN: Soft, nontender and nondistended. Bowel sounds are positive in all 4 quadrants. GENITOURINARY: Pruett catheter in place. EXTREMITIES: No cyanosis. Clubbing of bilateral upper digits. Bilateral lower extremity edema. NEUROLOGIC: The patient is awake, alert, and oriented. Results Result Diagram: 11/26/16 0442 11/26/16 0442 Results 24 hrs Laboratory Tests Test 11/28/16 13:20 11/28/16 16:58 11/28/16 21:12 11/29/16 01:42 Bedside Glucose 126 135 242 H 234 H Test 11/29/16 07:49 Bedside Glucose 117 Medications Medications Current Medications IV Flush (NS 10 ml) 10 ml PRN PRN IV IV PROTOCOL Last administered on 11/11/16 08:14; Admin Dose 10 ML; Start 09/28/16 at 14:00 Ondansetron HCl (Zofran Inj) 4 mg Q6H PRN IV NAUSEA AND/OR VOMITING; Start at 15:00 Nitroglycerin (Nitroglycerin (Sl Tab) 0.4 Mg) 1 tab Q5M PRN SL CHEST PAIN; Start 09/28/16 at 15:00 Acetaminophen (Tylenol Liquid) 650 mg Q6H PRN PO PAIN LEVEL 1-3 OR FEVER Last administered on 11/13/16 05:59; Admin Dose 650 MG; Start 09/28/16 at 15:00 Acetaminophen (Tylenol Tab) 650 mg Q6H PRN PO PAIN LEVEL 1-3 OR FEVER Last administered on 11/24/16 20:31; Admin Dose 650 MG; Start 09/28/16 at 15:00 Morphine Sulfate (morphine) 2 mg Q4H PRN IV PAIN LEVEL 7-10 Last administered on 11/24/16 16:22; Admin Dose 2 MG; Start 09/28/16 at 15:00 Lorazepam (Ativan) 1 mg Q2H PRN IV ANXIETY Last administered on 10/29/16 20:56 ; Admin Dose 1 MG; Start 09/28/16 at 15:00 Docusate Sodium (Colace) 100 mg Q12H PRN PO CONSTIPATION Last administered on 08:14; Admin Dose 100 MG; Start 09/28/16 at 15:00 Famotidine (Pepcid) 20 mg Q12 PO Last administered on 11/29/16 09:45; Admin Dose 20 MG; Start 09/28/16 at 21:00 Aspirin (Aspirin) 81 mg DAILY PO Last administered on 11/29/16 09:44; Admin Dose 81 MG; Start 09/29/16 at 09:00 Atorvastatin Calcium (Lipitor) 10 mg QHS PO Last administered on 11/28/16 21: 14; Admin Dose 10 MG; Start 09/28/16 at 21:00 Tiotropium [place] (Spiriva) 1 inh DAILY INH ; Start 09/28/16 at 16:00; Status Future Hold Mupirocin (Bactroban) 1 applic BID TOP Last administered on 11/29/16 09:47; Admin Dose 1 APPLIC; Start 09/30/16 at 09:00 Diagnostic Test (Pha) (Accucheck) 1 ea 02 XX Last administered on 11/29/16 02: 56; Admin Dose 1 EA; Start 10/05/16 at 02:00 Miscellaneous Information 1 ea NOTE XX ; Start 10/04/16 at 09:00 Glucose (Glutose) 15 gm Q15M PRN PO DECREASED GLUCOSE; Start 10/04/16 at 09:00 Glucose (Glutose) 22.5 gm Q15M PRN PO DECREASED GLUCOSE; Start 10/04/16 at 09: 00 Dextrose (D50w Syringe) 25 ml Q15M PRN IV DECREASED GLUCOSE; Start 10/04/16 at 09:00 Dextrose (D50w Syringe) 50 ml Q15M PRN IV DECREASED GLUCOSE; Start 10/04/16 at 09:00 Glucagon (Glucagen) 1 mg Q15M PRN IM DECREASED GLUCOSE; Start 10/04/16 at 09:00 Glucose (Glutose) 15 gm Q15M PRN BUCCAL DECREASED GLUCOSE; Start 10/04/16 at 09 :00 Metoprolol Tartrate (Lopressor) 5 mg Q4 PRN IV HR>110 Hold SBP<100; Start 10/05 at 19:30 Montelukast Sodium (Singulair) 10 mg HS PO Last administered on 11/28/16 21:15 ; Admin Dose 10 MG; Start 10/10/16 at 21:00 Theophylline (Benji-24) 300 mg QHS PO Last administered on 11/28/16 21:15; Admin Dose 300 MG; Start 10/10/16 at 21:00 Apixaban (Eliquis) 5 mg BID PO Last administered on 11/29/16 09:45; Admin Dose 5 MG; Start 10/10/16 at 21:00 Digoxin (Digoxin) 0.125 mg DAILY@13 PO Last administered on 11/10/16 13:35; Admin Dose 0.125 MG; Start 10/12/16 at 13:00; Status Future Hold Furosemide (Lasix) 40 mg AM PO Last administered on 11/14/16 08:41; Admin Dose 40 MG; Start 10/25/16 at 09:00; Status Future Hold Amiodarone HCl (Cordarone) 200 mg BID PO Last administered on 11/29/16 09:45; Admin Dose 200 MG; Start 10/24/16 at 21:00 Salmeterol Xinafoate/ Fluticasone (Advair 250/50 Diskus) 1 inh BID INH Last administered on 11/29/16 09:44; Admin Dose 1 INH; Start 11/07/16 at 09:00 Insulin Glargine (Lantus) 14 unit HS SC Last administered on 11/28/16 21:21; Admin Dose 14 UNIT; Start 11/15/16 at 21:00 Metoprolol Succinate (Toprol Xl) 25 mg DAILY PO Last administered on 11/29/16 09:46; Admin Dose 25 MG; Start 11/17/16 at 09:00 Lisinopril (Zestril) 5 mg DAILY PO Last administered on 11/29/16 09:46; Admin Dose 5 MG; Start 11/19/16 at 09:00 Bethanechol Chloride (Urecholine) 25 mg TID PO Last administered on 11/29/16 09:46; Admin Dose 25 MG; Start 11/20/16 at 21:00 Collagenase (Santyl) 1 applic DAILY TOP Last administered on 11/29/16 09:47; Admin Dose 1 APPLIC; Start 11/26/16 at 09:00 SOHA ALCOCER NP Nov 29, 2016 11:00
[2016-11-29 15:00] LABS: ADD SCAN DIFF NO
[2016-11-29 15:06] LABS: ABNORMAL IP MESSAGE 1; BASOPHIL # 0.1 10^3/ul (0.0-0.1); BASOPHILS % 0.6 % (0.0-2.0); EOSINOPHILS # 0.4 10^3/ul (0.0-0.5); HEMATOCRIT 27.3 % (42.0-52.0); HEMOGLOBIN 8.6 g/dl (14.0-18.0); LYMPHOCYTES # 1.1 10^3/ul (0.8-2.9); LYMPHOCYTES % 9.2 % (15.0-51.0); MEAN CORPUSCULAR HEMOGLOBIN 31.7 pg (29.0-33.0); MEAN CORPUSCULAR HGB CONC 31.5 g/dl (32.0-37.0); MEAN CORPUSCULAR VOLUME 100.7 fl (82.0-101.0); MEAN PLATELET VOLUME 8.6 fl (7.4-10.4); MONOCYTE # 1.3 10^3/ul (0.3-0.9); MONOCYTES % 11.2 % (0.0-11.0); NEUTROPHIL # 8.4 10^3/ul (1.6-7.5); NEUTROPHILS % 70.2 % (39.0-77.0); PLATELET COUNT 402 10^3/UL (140-415); RED BLOOD COUNT 2.71 10^6/ul (4.70-6.10); RED CELL DISTRIBUTION WIDTH 15.2 % (11.5-14.5); WHITE BLOOD COUNT 11.9 10^3/ul (4.8-10.8)
[2016-11-29 15:11] LABS: POTASSIUM 4.8 mmol/L (3.5-5.1)
[2016-11-29 15:13] LABS: CREATININE 1.38 mg/dl (0.61-1.24); MAGNESIUM 1.7 mg/dl (1.7-2.5); PHOSPHORUS 4.3 mg/dl (2.5-4.9)
--- NOTE | 2016-11-29 17:09 | PN ---
DATE: 11/29/2016 SUBJECTIVE: Urinary retention. The patient asking, "What am I going to do with this bag?", and he wants to go home; however, he has not been able to even learn how to empty the bag and he is not in a condition that he could handle the bag or the Pruett catheter. OBJECTIVE: VITAL SIGNS: Temperature is 98.8, respiration is 22, pulse 68, blood pressure 144/83. ABDOMEN: Pruett catheter is draining clear urine. IMPRESSION: Urinary retention. The patient has an indwelling Pruett catheter with a regular bag. W e have tried to use a leg bag on him before. He was not able to handle that. We put a regular bag and he also was not able to empty it on his own. This patient unfortunately needs a lot of help wit h his catheter and therefore he should go to a place where they could help him with emptying the bag and also changing the catheter regularly as needed. Dictated By: JOSÉ DOS SANTOS/NANDO Conf#: [id number] DID#: [id number]
[2016-11-29] MEDS: predniSONE 1 MG TAB PO SCH (18:37)
[2016-11-29 19:36] VITALS: BP 106/74; RESP 21
[2016-11-29] MEDS: MONTELUKAST 10 MG TAB PO SCH (21:57)
[2016-11-29] MEDS: ATORVASTATIN 10 MG TAB PO SCH (21:57)
[2016-11-29] MEDS: INSULIN GLARGINE [LANtus] 3 ML PEN SC SCH (22:04)
[2016-11-29] MEDS: THEOPHYLLINE (SR) 300 MG CAP PO SCH (22:15)
[2016-11-30] MEDS: ALBUTEROL/IPRATROPIUM (NEB) 3 ML AMP HHN SCH ×4 (02:00→19:27)
[2016-11-30] MEDS: ACCU-CHEK XX SCH (02:00)
[2016-11-30 07:46] VITALS: BP 121/62; RESP 22
[2016-11-30] MEDS: INSULIN ASPART [NOVOLOG] 3 ML PEN SC SCH ×7 (08:00→20:53)
[2016-11-30] MEDS: SALMETEROL/FLUTICASONE 250/50 INHA INH SCH ×2 (09:41→20:44)
[2016-11-30] MEDS: AMIODARONE 200 MG TAB PO SCH ×2 (09:42→20:45)
[2016-11-30] MEDS: MUPIROCIN 2% 22 GM OINT TOP SCH ×2 (09:42→20:46)
[2016-11-30] MEDS: LISINOPRIL 5 MG TAB PO SCH (09:42)
[2016-11-30] MEDS: ASPIRIN 81 MG TAB PO SCH (09:42)
[2016-11-30] MEDS: APIXABAN 5 MG TABLET PO SCH ×2 (09:43→20:46)
[2016-11-30] MEDS: FAMOTIDINE 20 MG TAB PO SCH ×2 (09:43→20:46)
[2016-11-30] MEDS: COLLAGENASE 30 GM TUBE TOP SCH (09:43)
[2016-11-30] MEDS: METOPROLOL (XL) 25 MG TAB PO SCH (09:43)
[2016-11-30] MEDS: BETHANECHOL 25 MG TAB PO SCH ×3 (09:43→20:46)
[2016-11-30] MEDS: LORAZEPAM 2 MG INJ IV PRN (09:49)
--- NOTE | 2016-11-30 13:25 | CONS ---
Date/Time of Note Date/Time of Note DATE: 11/30/16 TIME: 13:22 Assessment/Plan Assessment/Plan Chief Complaint/Hosp Course IMPRESSION: 1. Atrial fibrillation with rapid ventricular response.-improved HR and now back in SR by ecg 11/20 2. Congestive heart failure, systolic, acute on chronic. 3. History of cardiomyopathy with decreased left ventricular ejection fraction 20% to 25% per chart biopsy. 4. Shortness of breath. 5. Status post hypercapnic respiratory failure, status post extubation. 6. Chronic obstructive pulmonary disease. 7. Hypertension-borderline hotn today with anti-hypertensives held 8. Dyslipidemia. 9. History of automatic implantable cardioverter-defibrillator with possible discharge.-s/p interrogation with ICD shock for uncontrolled rapid AF. 10. Pneumonia. 11.Positive troponin-minimal with no sig uptrend 12.UTI-Klebs 14.Bacteremia-Klebs/persistent-most recent Bld cx's negative 15.ARF-slowly improving 16.Urinary retention-agustin in place Recc -Tele -Continue asa/Eliquis -ACEI/BB as tolerated at current doses -Continue to hold digoxin in setting of ARF and well controlled heart rates although digoxin level now down -Continue statin -Follow volume status and will continue hold lasix but will consider resumption soon given trace LE edema and follow affiliate manager closely -Continue abx's and f/u cx data and -awaiting placement Problems: Consultation Date/Type/Reason Admit Date/Time Sep 28, 2016 at 14:41 Initial Consult Date 09/28/16 Type of Consultation: Cardiology Reason for Consultation PAF/cardiomyopathy/ICD discharge Referring Provider: DEVON MUHAMMAD MD Exam/Review of Systems Vital Signs Vitals Vital Signs Date Time Temp Pulse Resp B/P Pulse Ox O2 Delivery O2 Flow Rate FiO2 11/30/16 07:46 98.6 67 22 121/62 90 11/30/16 07:38 Nasal Cannula 2.0 Intake and Output 11/29/16 11/29/16 11/30/16 15:00 23:00 07:00 Intake Total 1280 ml 1280 ml Output Total 1100 ml 2400 ml Balance 180 ml -1120 ml Exam Review of Systems: CONSTITUTIONAL: No fevers, chills. PULMONARY: No sob CARDIOVASCULAR: No chest pain/palpitations GASTROINTESTINAL: No nausea/vomiting. GENITOURINARY: No hematuria/dysuria. MUSCULOSKELETAL: No myagias/arthalgias. PSYCHIATRIC: The patient denies depression. NEUROLOGIC: No weakness Constitutional: alert Psych: no complaints Head: normocephalic ENMT: mucosa pink and moist Neck: jvd (9 cm water), supple Respiratory: diminished breath sounds (at bases/B) Gastrointestinal: non-tender, soft Musculoskeletal: muscle tone (normal) Neurological: other (No focal deficits) Results Result Diagram: 11/29/16 1420 11/29/16 1420 Results 24 hrs Laboratory Tests Test 11/29/16 14:20 11/29/16 16:47 11/29/16 22:01 11/30/16 08:36 White Blood Count 11.9 H Red Blood Count 2.71 L Hemoglobin 8.6 L Hematocrit 27.3 L Mean Corpuscular Volume 100.7 Mean Corpuscular Hemoglobin 31.7 Mean Corpuscular Hemoglobin Concent 31.5 L Red Cell Distribution Width 15.2 H Platelet Count 402 Mean Platelet Volume 8.6 Neutrophils % 70.2 Lymphocytes % 9.2 L Monocytes % 11.2 H Eosinophils % 3.0 Basophils % 0.6 Nucleated Red Blood Cells % 0.0 Neutrophils # 8.4 H Lymphocytes # 1.1 Monocytes # 1.3 H Eosinophils # 0.4 Basophils # 0.1 Nucleated Red Blood Cells # 0.0 Sodium Level 135 Potassium Level 4.8 Chloride Level 95 L Carbon Dioxide Level 34 H Anion Gap 11 Blood Urea Nitrogen 22 H Creatinine 1.38 H Glucose Level 88 Calcium Level 9.0 Phosphorus Level 4.3 Magnesium Level 1.7 Bedside Glucose 102 175 140 Test 11/30/16 12:56 Bedside Glucose 113 Medications Medications Current Medications IV Flush (NS 10 ml) 10 ml PRN PRN IV IV PROTOCOL Last administered on 09:49; Admin Dose 10 ML; Start 09/28/16 at 14:00 Ondansetron HCl (Zofran Inj) 4 mg Q6H PRN IV NAUSEA AND/OR VOMITING; Start at 15:00 Nitroglycerin (Nitroglycerin (Sl Tab) 0.4 Mg) 1 tab Q5M PRN SL CHEST PAIN; Start 09/28/16 at 15:00 Acetaminophen (Tylenol Liquid) 650 mg Q6H PRN PO PAIN LEVEL 1-3 OR FEVER Last administered on 11/13/16 05:59; Admin Dose 650 MG; Start 09/28/16 at 15:00 Acetaminophen (Tylenol Tab) 650 mg Q6H PRN PO PAIN LEVEL 1-3 OR FEVER Last administered on 11/24/16 20:31; Admin Dose 650 MG; Start 09/28/16 at 15:00 Morphine Sulfate (morphine) 2 mg Q4H PRN IV PAIN LEVEL 7-10 Last administered on 11/24/16 16:22; Admin Dose 2 MG; Start 09/28/16 at 15:00 Lorazepam (Ativan) 1 mg Q2H PRN IV ANXIETY Last administered on 11/30/16 09:49 ; Admin Dose 1 MG; Start 09/28/16 at 15:00 Docusate Sodium (Colace) 100 mg Q12H PRN PO CONSTIPATION Last administered on 08:14; Admin Dose 100 MG; Start 09/28/16 at 15:00 Famotidine (Pepcid) 20 mg Q12 PO Last administered on 11/30/16 09:43; Admin Dose 20 MG; Start 09/28/16 at 21:00 Aspirin (Aspirin) 81 mg DAILY PO Last administered on 11/30/16 09:42; Admin Dose 81 MG; Start 09/29/16 at 09:00 Atorvastatin Calcium (Lipitor) 10 mg QHS PO Last administered on 11/29/16 21: 57; Admin Dose 10 MG; Start 09/28/16 at 21:00 Tiotropium [place] (Spiriva) 1 inh DAILY INH ; Start 09/28/16 at 16:00; Status Future Hold Mupirocin (Bactroban) 1 applic BID TOP Last administered on 11/30/16 09:42; Admin Dose 1 APPLIC; Start 09/30/16 at 09:00 Diagnostic Test (Pha) (Accucheck) 1 ea 02 XX Last administered on 11/29/16 02: 56; Admin Dose 1 EA; Start 10/05/16 at 02:00 Miscellaneous Information 1 ea NOTE XX ; Start 10/04/16 at 09:00 Glucose (Glutose) 15 gm Q15M PRN PO DECREASED GLUCOSE; Start 10/04/16 at 09:00 Glucose (Glutose) 22.5 gm Q15M PRN PO DECREASED GLUCOSE; Start 10/04/16 at 09: 00 Dextrose (D50w Syringe) 25 ml Q15M PRN IV DECREASED GLUCOSE; Start 10/04/16 at 09:00 Dextrose (D50w Syringe) 50 ml Q15M PRN IV DECREASED GLUCOSE; Start 10/04/16 at 09:00 Glucagon (Glucagen) 1 mg Q15M PRN IM DECREASED GLUCOSE; Start 10/04/16 at 09:00 Glucose (Glutose) 15 gm Q15M PRN BUCCAL DECREASED GLUCOSE; Start 10/04/16 at 09 :00 Metoprolol Tartrate (Lopressor) 5 mg Q4 PRN IV HR>110 Hold SBP<100; Start 10/05 at 19:30 Montelukast Sodium (Singulair) 10 mg HS PO Last administered on 11/29/16 21:57 ; Admin Dose 10 MG; Start 10/10/16 at 21:00 Theophylline (Benji-24) 300 mg QHS PO Last administered on 11/29/16 22:15; Admin Dose 300 MG; Start 10/10/16 at 21:00 Apixaban (Eliquis) 5 mg BID PO Last administered on 11/30/16 09:43; Admin Dose 5 MG; Start 10/10/16 at 21:00 Digoxin (Digoxin) 0.125 mg DAILY@13 PO Last administered on 11/10/16 13:35; Admin Dose 0.125 MG; Start 10/12/16 at 13:00; Status Future Hold Furosemide (Lasix) 40 mg AM PO Last administered on 11/14/16 08:41; Admin Dose 40 MG; Start 10/25/16 at 09:00; Status Future Hold Amiodarone HCl (Cordarone) 200 mg BID PO Last administered on 11/30/16 09:42; Admin Dose 200 MG; Start 10/24/16 at 21:00 Salmeterol Xinafoate/ Fluticasone (Advair 250/50 Diskus) 1 inh BID INH Last administered on 11/30/16 09:41; Admin Dose 1 INH; Start 11/07/16 at 09:00 Insulin Glargine (Lantus) 14 unit HS SC Last administered on 11/29/16 22:04; Admin Dose 14 UNIT; Start 11/15/16 at 21:00 Metoprolol Succinate (Toprol Xl) 25 mg DAILY PO Last administered on 11/30/16 09:43; Admin Dose 25 MG; Start 11/17/16 at 09:00 Lisinopril (Zestril) 5 mg DAILY PO Last administered on 11/30/16 09:42; Admin Dose 5 MG; Start 11/19/16 at 09:00 Bethanechol Chloride (Urecholine) 25 mg TID PO Last administered on 11/30/16 13:00; Admin Dose 25 MG; Start 11/20/16 at 21:00 Collagenase (Santyl) 1 applic DAILY TOP Last administered on 11/30/16 09:43; Admin Dose 1 APPLIC; Start 11/26/16 at 09:00 СВЕТЛАНА PADRON Nov 30, 2016 13:24
[2016-11-30] MEDS ORDERED: FUROSEMIDE 20 MG INJ IV ONE (13:30)
--- NOTE | 2016-11-30 15:46 | PN ---
Date/Time of Note Date/Time of Note DATE: 11/30/16 TIME: 15:40 Assessment/Plan VTE Prophylaxis VTE Prophylaxis Intervention: SCD's Lines/Catheters IV [facility]ter Type [facility]from [facility]): Saline Lock Urinary Cath still in place: Yes Reason Cath still needed: other (indicate) (monitor I&O) Assessment/Plan Chief Complaint/Hosp Course Assessment and plan 1. Acute on chronic hypercapnic respiratory failure secondary to underlying COPD exacerbation. Continue on bronchodilators. Of note patient was intubated and extubated on 09/25/2016. Continue with pulmonary recommendations to 2. Healthcare associated pneumonia. Improved at present. Patient previously with extended spectrum beta lactamase and Lauren albicans in sputum culture. ID following. Off antibiotics at this time. 3. UTI with Klebsiella pneumonia carbapenemase. Patient being followed by ID. Off antibiotics at this time 4. CHF. Likely acute on chronic. Improved at present. We'll provide with diuretics as needed 5. Ischemic myopathy. Patient status post AICD placement. Continue optimization with cardiovascular medications 6. CAD. Patient with history of previous stenting. Continue on antiplatelet therapy 7. Essential hypertension. Continue on antihypertensives and adjust needed 8. Dyslipidemia. Continue on statin 9. Recent right foot injury. Patient was reportedly seen by public information officer. Continue supportive care. 10. Type 2 diabetes. Patient noted with A1c 6.6. Continue insulin regimen 11. Paroxysmal atrial fibrillation. Continue on Eliquis. Continue with cardiology recommendations 12. Urinary retention. Patient seen by urologist. Continue Pruett catheter 13. Iron deficiency anemia. To be resumed on his iron supplement DVT prophylaxis: eliquis GERD prophylaxis: H2 liliana Disposition and plan: Continue supportive measures. Appears improved. Awaiting placement Discussed plan of care with Dr. Fuller Problems: Subjective 24 Hr Interval Summary Free Text/Dictation no apparent distress seen at this time Exam/Review of Systems Vital Signs Vitals Vital Signs Date Time Temp Pulse Resp B/P Pulse Ox O2 Delivery O2 Flow Rate FiO2 11/30/16 14:23 Nasal Cannula 2.0 11/30/16 13:58 65 18 94 11/30/16 07:46 98.6 121/62 Intake and Output 11/29/16 11/29/16 11/30/16 14:59 22:59 06:59 Intake Total 1280 ml 1280 ml Output Total 1100 ml 2400 ml Balance 180 ml -1120 ml Exam General: No acute signs or symptoms of distress Eyes: pupils equal round, Anicteric sclera Neck: Supple nontender, no JVD Cardiac: S1, S2 auscultated, regular rhythm and rate Pulmonary: Wheezing auscultated bilateral lung walker and diminished at bases GI: Abdomen soft nontender nondistended, bowel sounds active Extremities: [Minimal edema bilateral lower extremities Neurologic: Alert to person place and time and situation Results Result Diagram: 11/29/16 1420 11/29/16 1420 Results 24 hrs Laboratory Tests Test 11/29/16 16:47 11/29/16 22:01 11/30/16 08:36 11/30/16 12:56 Bedside Glucose 102 175 140 113 Medications Medications Current Medications IV Flush (NS 10 ml) 10 ml PRN PRN IV IV PROTOCOL Last administered on 09:49; Admin Dose 10 ML; Start 09/28/16 at 14:00 Ondansetron HCl (Zofran Inj) 4 mg Q6H PRN IV NAUSEA AND/OR VOMITING; Start at 15:00 Nitroglycerin (Nitroglycerin (Sl Tab) 0.4 Mg) 1 tab Q5M PRN SL CHEST PAIN; Start 09/28/16 at 15:00 Acetaminophen (Tylenol Liquid) 650 mg Q6H PRN PO PAIN LEVEL 1-3 OR FEVER Last administered on 11/13/16 05:59; Admin Dose 650 MG; Start 09/28/16 at 15:00 Acetaminophen (Tylenol Tab) 650 mg Q6H PRN PO PAIN LEVEL 1-3 OR FEVER Last administered on 11/24/16 20:31; Admin Dose 650 MG; Start 09/28/16 at 15:00 Morphine Sulfate (morphine) 2 mg Q4H PRN IV PAIN LEVEL 7-10 Last administered on 11/24/16 16:22; Admin Dose 2 MG; Start 09/28/16 at 15:00 Lorazepam (Ativan) 1 mg Q2H PRN IV ANXIETY Last administered on 11/30/16 09:49 ; Admin Dose 1 MG; Start 09/28/16 at 15:00 Docusate Sodium (Colace) 100 mg Q12H PRN PO CONSTIPATION Last administered on 08:14; Admin Dose 100 MG; Start 09/28/16 at 15:00 Famotidine (Pepcid) 20 mg Q12 PO Last administered on 11/30/16 09:43; Admin Dose 20 MG; Start 09/28/16 at 21:00 Aspirin (Aspirin) 81 mg DAILY PO Last administered on 11/30/16 09:42; Admin Dose 81 MG; Start 09/29/16 at 09:00 Atorvastatin Calcium (Lipitor) 10 mg QHS PO Last administered on 11/29/16 21: 57; Admin Dose 10 MG; Start 09/28/16 at 21:00 Tiotropium [place] (Spiriva) 1 inh DAILY INH ; Start 09/28/16 at 16:00; Status Future Hold Mupirocin (Bactroban) 1 applic BID TOP Last administered on 11/30/16 09:42; Admin Dose 1 APPLIC; Start 09/30/16 at 09:00 Diagnostic Test (Pha) (Accucheck) 1 ea 02 XX Last administered on 11/29/16 02: 56; Admin Dose 1 EA; Start 10/05/16 at 02:00 Miscellaneous Information 1 ea NOTE XX ; Start 10/04/16 at 09:00 Glucose (Glutose) 15 gm Q15M PRN PO DECREASED GLUCOSE; Start 10/04/16 at 09:00 Glucose (Glutose) 22.5 gm Q15M PRN PO DECREASED GLUCOSE; Start 10/04/16 at 09: 00 Dextrose (D50w Syringe) 25 ml Q15M PRN IV DECREASED GLUCOSE; Start 10/04/16 at 09:00 Dextrose (D50w Syringe) 50 ml Q15M PRN IV DECREASED GLUCOSE; Start 10/04/16 at 09:00 Glucagon (Glucagen) 1 mg Q15M PRN IM DECREASED GLUCOSE; Start 10/04/16 at 09:00 Glucose (Glutose) 15 gm Q15M PRN BUCCAL DECREASED GLUCOSE; Start 10/04/16 at 09 :00 Metoprolol Tartrate (Lopressor) 5 mg Q4 PRN IV HR>110 Hold SBP<100; Start 10/05 at 19:30 Montelukast Sodium (Singulair) 10 mg HS PO Last administered on 11/29/16 21:57 ; Admin Dose 10 MG; Start 10/10/16 at 21:00 Theophylline (Benji-24) 300 mg QHS PO Last administered on 11/29/16 22:15; Admin Dose 300 MG; Start 10/10/16 at 21:00 Apixaban (Eliquis) 5 mg BID PO Last administered on 11/30/16 09:43; Admin Dose 5 MG; Start 10/10/16 at 21:00 Digoxin (Digoxin) 0.125 mg DAILY@13 PO Last administered on 11/10/16 13:35; Admin Dose 0.125 MG; Start 10/12/16 at 13:00; Status Future Hold Furosemide (Lasix) 40 mg AM PO Last administered on 11/14/16 08:41; Admin Dose 40 MG; Start 10/25/16 at 09:00; Status Future Hold Amiodarone HCl (Cordarone) 200 mg BID PO Last administered on 11/30/16 09:42; Admin Dose 200 MG; Start 10/24/16 at 21:00 Salmeterol Xinafoate/ Fluticasone (Advair 250/50 Diskus) 1 inh BID INH Last administered on 11/30/16 09:41; Admin Dose 1 INH; Start 11/07/16 at 09:00 Insulin Glargine (Lantus) 14 unit HS SC Last administered on 11/29/16 22:04; Admin Dose 14 UNIT; Start 11/15/16 at 21:00 Metoprolol Succinate (Toprol Xl) 25 mg DAILY PO Last administered on 11/30/16 09:43; Admin Dose 25 MG; Start 11/17/16 at 09:00 Lisinopril (Zestril) 5 mg DAILY PO Last administered on 11/30/16 09:42; Admin Dose 5 MG; Start 11/19/16 at 09:00 Bethanechol Chloride (Urecholine) 25 mg TID PO Last administered on 11/30/16 13:00; Admin Dose 25 MG; Start 11/20/16 at 21:00 Collagenase (Santyl) 1 applic DAILY TOP Last administered on 11/30/16 09:43; Admin Dose 1 APPLIC; Start 11/26/16 at 09:00 CINDY SMART Nov 30, 2016 15:45
[2016-11-30] MEDS: predniSONE 1 MG TAB PO SCH (17:30)
[2016-11-30 20:08] VITALS: BP 120/58; RESP 20
[2016-11-30] MEDS: MONTELUKAST 10 MG TAB PO SCH (20:45)
[2016-11-30] MEDS: ATORVASTATIN 10 MG TAB PO SCH (20:46)
[2016-11-30] MEDS: INSULIN GLARGINE [LANtus] 3 ML PEN SC SCH (20:52)
[2016-11-30] MEDS: THEOPHYLLINE (SR) 300 MG CAP PO SCH (22:14)
--- NOTE | 2016-12-01 01:30 | PN ---
DATE: 11/30/2016 SUBJECTIVE: Urinary retention. The patient has failed multiple attempts to urinate on his own, so he has an indwelling Pruett catheter and the patient is comfortable. OBJECTIVE: VITAL SIGNS: Temperature is 98.6, blood pressure 121/62, pulse 65, respiration 18. The Pruett catheter is draining clear yellow urine. LABORATORY DATA: Last CBC shows a white count of 11.9, hemoglobin 8.6, hematocrit 27.3. IMPRESSION: Urinary retention. The patient has not responded to medications and he still needed th e indwelling Pruett catheter. Therefore, we will just leave the Pruett catheter in and [facility] will continue the same. Dictated By: JOSÉ DOS SANTOS/NANDO Conf#: [id number] DID#: [id number]
[2016-12-01] MEDS: ACCU-CHEK XX SCH (01:38)
[2016-12-01] MEDS: ALBUTEROL/IPRATROPIUM (NEB) 3 ML AMP HHN SCH ×4 (02:00→20:05)
[2016-12-01] MEDS: INSULIN ASPART [NOVOLOG] 3 ML PEN SC SCH ×7 (08:00→21:56)
[2016-12-01 08:06] VITALS: BP 113/82; RESP 20
[2016-12-01] MEDS: AMIODARONE 200 MG TAB PO SCH ×2 (09:12→21:54)
[2016-12-01] MEDS: APIXABAN 5 MG TABLET PO SCH ×2 (09:12→21:52)
[2016-12-01] MEDS: FAMOTIDINE 20 MG TAB PO SCH ×2 (09:12→21:52)
[2016-12-01] MEDS: BETHANECHOL 25 MG TAB PO SCH ×3 (09:12→21:53)
[2016-12-01] MEDS: LISINOPRIL 5 MG TAB PO SCH (09:12)
[2016-12-01] MEDS: METOPROLOL (XL) 25 MG TAB PO SCH (09:13)
[2016-12-01] MEDS: ASPIRIN 81 MG TAB PO SCH (09:13)
[2016-12-01] MEDS: MUPIROCIN 2% 22 GM OINT TOP SCH ×2 (09:15→21:57)
[2016-12-01] MEDS: SALMETEROL/FLUTICASONE 250/50 INHA INH SCH ×2 (09:15→22:01)
[2016-12-01] MEDS: COLLAGENASE 30 GM TUBE TOP SCH (09:15)
--- NOTE | 2016-12-01 09:43 | CONS ---
Date/Time of Note Date/Time of Note DATE: 12/01/16 TIME: 09:41 Assessment/Plan Assessment/Plan Additional Assessment/Plan 1. Atrial fibrillation with rapid ventricular response.-improved HR and now back in SR by ecg 11/20 - SINUS NOW by exam 2. Congestive heart failure, systolic, acute on chronic- better fluid staus 3. History of cardiomyopathy with decreased left ventricular ejection fraction 20% to 25% per chart biopsy- ICD in place. 4. Shortness of breath. 5. Status post hypercapnic respiratory failure, status post extubation- much better now 6. Chronic obstructive pulmonary disease. 7. Hypertension-borderline hotn today with anti-hypertensives held 8. Dyslipidemia. 9. History of automatic implantable cardioverter-defibrillator with possible discharge.-s/p interrogation with ICD shock for uncontrolled rapid AF. 10. Pneumonia- on anti-bx, con't med rx 11.Positive troponin-minimal with no sig uptrend 12.UTI-Klebs 14.Bacteremia-Klebs/persistent-most recent Bld cx's negative 15.ARF-slowly improving 16.Urinary retention-agustin in place Consultation Date/Type/Reason Admit Date/Time Sep 28, 2016 at 14:41 Initial Consult Date 09/28/16 Type of Consultation: Cardiology Referring Provider: DEVON MUHAMMAD MD 24 HR Interval Summary Free Text/Dictation NO acute change - better fluid status - sinus by exam ROS: No fever, no chills, no nausea, no vomiting, no diarrhea/constipation No recent weight changes No chest pain, no PND, no orthopnea No dizziness, blurred vision No thirst, no heat or cold intolerance Exam/Review of Systems Vital Signs Vitals Vital Signs Date Time Temp Pulse Resp B/P Pulse Ox O2 Delivery O2 Flow Rate FiO2 12/01/16 08:19 68 20 94 Nasal Cannula 2.0 12/01/16 08:06 98.6 113/82 Intake and Output 11/30/16 11/30/16 12/01/16 14:59 22:59 06:59 Intake Total 1440 ml 960 ml Output Total 1200 ml 2600 ml Balance 240 ml -1640 ml Exam General: WN/WD/NAD, AOx 1-2 HEENT: Unicetric/atraumatic/EOMI (follow commands) NECK: JVD elevated, no thyromegaly Lymph: no lymphadenopathy HEART: regular with no S3, II/ systolic murmur at apex LUNGS: Coarse sounds ABD: soft, NT, ND, +BS : Intact Neuro: non focal SKIN: chronic changes EXT: trace edema Results Result Diagram: 11/29/16 1420 11/29/16 1420 Results 24 hrs Laboratory Tests Test 11/30/16 12:56 11/30/16 16:57 11/30/16 20:50 12/01/16 09:07 Bedside Glucose 113 121 138 97 Medications Medications Current Medications IV Flush (NS 10 ml) 10 ml PRN PRN IV IV PROTOCOL Last administered on 09:49; Admin Dose 10 ML; Start 09/28/16 at 14:00 Ondansetron HCl (Zofran Inj) 4 mg Q6H PRN IV NAUSEA AND/OR VOMITING; Start at 15:00 Nitroglycerin (Nitroglycerin (Sl Tab) 0.4 Mg) 1 tab Q5M PRN SL CHEST PAIN; Start 09/28/16 at 15:00 Acetaminophen (Tylenol Liquid) 650 mg Q6H PRN PO PAIN LEVEL 1-3 OR FEVER Last administered on 11/13/16 05:59; Admin Dose 650 MG; Start 09/28/16 at 15:00 Acetaminophen (Tylenol Tab) 650 mg Q6H PRN PO PAIN LEVEL 1-3 OR FEVER Last administered on 11/24/16 20:31; Admin Dose 650 MG; Start 09/28/16 at 15:00 Morphine Sulfate (morphine) 2 mg Q4H PRN IV PAIN LEVEL 7-10 Last administered on 11/24/16 16:22; Admin Dose 2 MG; Start 09/28/16 at 15:00 Lorazepam (Ativan) 1 mg Q2H PRN IV ANXIETY Last administered on 11/30/16 09:49 ; Admin Dose 1 MG; Start 09/28/16 at 15:00 Docusate Sodium (Colace) 100 mg Q12H PRN PO CONSTIPATION Last administered on 08:14; Admin Dose 100 MG; Start 09/28/16 at 15:00 Famotidine (Pepcid) 20 mg Q12 PO Last administered on 12/01/16 09:12; Admin Dose 20 MG; Start 09/28/16 at 21:00 Aspirin (Aspirin) 81 mg DAILY PO Last administered on 12/01/16 09:13; Admin Dose 81 MG; Start 09/29/16 at 09:00 Atorvastatin Calcium (Lipitor) 10 mg QHS PO Last administered on 11/30/16 20: 46; Admin Dose 10 MG; Start 09/28/16 at 21:00 Tiotropium [place] (Spiriva) 1 inh DAILY INH ; Start 09/28/16 at 16:00; Status Future Hold Mupirocin (Bactroban) 1 applic BID TOP Last administered on 12/01/16 09:15; Admin Dose 1 APPLIC; Start 09/30/16 at 09:00 Diagnostic Test (Pha) (Accucheck) 1 ea 02 XX Last administered on 11/29/16 02: 56; Admin Dose 1 EA; Start 10/05/16 at 02:00 Miscellaneous Information 1 ea NOTE XX ; Start 10/04/16 at 09:00 Glucose (Glutose) 15 gm Q15M PRN PO DECREASED GLUCOSE; Start 10/04/16 at 09:00 Glucose (Glutose) 22.5 gm Q15M PRN PO DECREASED GLUCOSE; Start 10/04/16 at 09: 00 Dextrose (D50w Syringe) 25 ml Q15M PRN IV DECREASED GLUCOSE; Start 10/04/16 at 09:00 Dextrose (D50w Syringe) 50 ml Q15M PRN IV DECREASED GLUCOSE; Start 10/04/16 at 09:00 Glucagon (Glucagen) 1 mg Q15M PRN IM DECREASED GLUCOSE; Start 10/04/16 at 09:00 Glucose (Glutose) 15 gm Q15M PRN BUCCAL DECREASED GLUCOSE; Start 10/04/16 at 09 :00 Metoprolol Tartrate (Lopressor) 5 mg Q4 PRN IV HR>110 Hold SBP<100; Start 10/05 at 19:30 Montelukast Sodium (Singulair) 10 mg HS PO Last administered on 11/30/16 20:45 ; Admin Dose 10 MG; Start 10/10/16 at 21:00 Theophylline (Benji-24) 300 mg QHS PO Last administered on 11/30/16 22:14; Admin Dose 300 MG; Start 10/10/16 at 21:00 Apixaban (Eliquis) 5 mg BID PO Last administered on 12/01/16 09:12; Admin Dose 5 MG; Start 10/10/16 at 21:00 Digoxin (Digoxin) 0.125 mg DAILY@13 PO Last administered on 11/10/16 13:35; Admin Dose 0.125 MG; Start 10/12/16 at 13:00; Status Future Hold Furosemide (Lasix) 40 mg AM PO Last administered on 11/14/16 08:41; Admin Dose 40 MG; Start 10/25/16 at 09:00; Status Future Hold Amiodarone HCl (Cordarone) 200 mg BID PO Last administered on 12/01/16 09:12; Admin Dose 200 MG; Start 10/24/16 at 21:00 Salmeterol Xinafoate/ Fluticasone (Advair 250/50 Diskus) 1 inh BID INH Last administered on 12/01/16 09:15; Admin Dose 1 INH; Start 11/07/16 at 09:00 Insulin Glargine (Lantus) 14 unit HS SC Last administered on 11/30/16 20:52; Admin Dose 14 UNIT; Start 11/15/16 at 21:00 Metoprolol Succinate (Toprol Xl) 25 mg DAILY PO Last administered on 12/01/16 09:13; Admin Dose 25 MG; Start 11/17/16 at 09:00 Lisinopril (Zestril) 5 mg DAILY PO Last administered on 12/01/16 09:12; Admin Dose 5 MG; Start 11/19/16 at 09:00 Bethanechol Chloride (Urecholine) 25 mg TID PO Last administered on 12/01/16 09:12; Admin Dose 25 MG; Start 11/20/16 at 21:00 Collagenase (Santyl) 1 applic DAILY TOP Last administered on 12/01/16 09:15; Admin Dose 1 APPLIC; Start 11/26/16 at 09:00 RAYSHAWN DUNN MD Dec 01, 2016 09:43
[2016-12-01 11:16] LABS: CREATININE 1.32 mg/dl (0.61-1.24)
[2016-12-01 11:17] LABS: CALCIUM 9.5 mg/dl (8.4-10.2)
--- NOTE | 2016-12-01 15:34 | PN ---
Date/Time of Note Date/Time of Note DATE: 12/01/16 TIME: 15:30 Assessment/Plan VTE Prophylaxis VTE Prophylaxis Intervention: other (eliquis) Lines/Catheters IV Catheter Type (from Nrs): Saline Lock Urinary Cath still in place: Yes Reason Cath still needed: urinary retention Assessment/Plan Assessment/Plan 1. 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 treated 2. 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 Simpson 3. COPD exacerbation, stable, neb, decrease steroid 4. facility acquired pneumonia, with ESBL E. Coli, and Lauren albicans, treated 5. Atrial fibrillation with RVR, sinus now, follow up with cardiology 6. Congestive heart failure, systolic, chronic, stable 7. Ischemic cardiomyopathy 8. CAD 9. s/p ICD, stable 10. Essential hypertension, stable 11. Dyslipidemia. Continue statin. 12. Hx of Foot Fx- stable 13. DVT prophylaxis: eliquis 14. S/P IVC filter 15. Chronic anemia, one unit PRBC 11/19/2016 16. Awaiting for placemen Subjective 24 Hr Interval Summary Free Text/Dictation seen and examined. no event Exam/Review of Systems Vital Signs Vitals Vital Signs Date Time Temp Pulse Resp B/P Pulse Ox O2 Delivery O2 Flow Rate FiO2 12/01/16 14:26 2.0 12/01/16 13:27 70 20 93 Nasal Cannula 12/01/16 08:06 98.6 113/82 Intake and Output 11/30/16 11/30/16 12/01/16 15:00 23:00 07:00 Intake Total 1440 ml 960 ml Output Total 1200 ml 2600 ml Balance 240 ml -1640 ml Exam Constitutional: alert, oriented, well developed Psych: nl mood/affect, no complaints Head: atraumatic, normocephalic Eyes: EOMI, PERRL, nl conjunctiva, nl lids ENMT: nl external ears & nose, nl lips & teeth, nl nasal mucosa & septum Neck: non-tender, supple Respiratory: clear to auscultation, normal air movement, No congested cough, No crackles/rales, No diminished breath sounds, No intercostal retraction, No labored breathing, No other, No respirations, No tactile fremitus, No wheezing Cardiovascular: nl pulses, regular rate and rhythm, No S3, No S4, No bruits, No diastolic murmur, No edema, No gallop, No irregular rhythm, No jugular venous distention (JVD), No murmurs/extra sounds, No other, No rub, No systolic murmur Gastrointestinal: nl liver, spleen, non-tender, soft, No ascites, No bowel sounds, No distended, No firm, No hepatomegaly, No mass , No other, No rebound or guarding, No splenomegaly, No surgical scars, No tender Musculoskeletal: nl extremities to inspection Extremities: normal pulses, No calf tenderness, No clubbing, No cyanosis, No edema, No other, No palpable cord, No pitting pedal edema, No tenderness Neurological: LEARNING COACH II-XII intact, nl mental status, nl speech, nl strength Skin: nl turgor Lymph: nl lymph nodes Results Result Diagram: 11/29/16 1420 12/01/16 1041 Results 24 hrs Laboratory Tests Test 11/30/16 16:57 11/30/16 20:50 12/01/16 09:07 12/01/16 10:41 Bedside Glucose 121 138 97 Sodium Level 135 Potassium Level 5.0 Chloride Level 95 L Carbon Dioxide Level 37 H Anion Gap 8 Blood Urea Nitrogen 22 H Creatinine 1.32 H Glucose Level 129 # Calcium Level 9.5 Test 12/01/16 11:51 Bedside Glucose 122 Medications Medications Current Medications IV Flush (NS 10 ml) 10 ml PRN PRN IV IV PROTOCOL Last administered on 09:49; Admin Dose 10 ML; Start 09/28/16 at 14:00 Ondansetron HCl (Zofran Inj) 4 mg Q6H PRN IV NAUSEA AND/OR VOMITING; Start at 15:00 Nitroglycerin (Nitroglycerin (Sl Tab) 0.4 Mg) 1 tab Q5M PRN SL CHEST PAIN; Start 09/28/16 at 15:00 Acetaminophen (Tylenol Liquid) 650 mg Q6H PRN PO PAIN LEVEL 1-3 OR FEVER Last administered on 11/13/16 05:59; Admin Dose 650 MG; Start 09/28/16 at 15:00 Acetaminophen (Tylenol Tab) 650 mg Q6H PRN PO PAIN LEVEL 1-3 OR FEVER Last administered on 11/24/16 20:31; Admin Dose 650 MG; Start 09/28/16 at 15:00 Morphine Sulfate (morphine) 2 mg Q4H PRN IV PAIN LEVEL 7-10 Last administered on 11/24/16 16:22; Admin Dose 2 MG; Start 09/28/16 at 15:00 Lorazepam (Ativan) 1 mg Q2H PRN IV ANXIETY Last administered on 11/30/16 09:49 ; Admin Dose 1 MG; Start 09/28/16 at 15:00 Docusate Sodium (Colace) 100 mg Q12H PRN PO CONSTIPATION Last administered on 08:14; Admin Dose 100 MG; Start 09/28/16 at 15:00 Famotidine (Pepcid) 20 mg Q12 PO Last administered on 12/01/16 09:12; Admin Dose 20 MG; Start 09/28/16 at 21:00 Aspirin (Aspirin) 81 mg DAILY PO Last administered on 12/01/16 09:13; Admin Dose 81 MG; Start 09/29/16 at 09:00 Atorvastatin Calcium (Lipitor) 10 mg QHS PO Last administered on 11/30/16 20: 46; Admin Dose 10 MG; Start 09/28/16 at 21:00 Tiotropium [place] (Spiriva) 1 inh DAILY INH ; Start 09/28/16 at 16:00; Status Future Hold Mupirocin (Bactroban) 1 applic BID TOP Last administered on 12/01/16 09:15; Admin Dose 1 APPLIC; Start 09/30/16 at 09:00 Diagnostic Test (Pha) (Accucheck) 1 ea 02 XX Last administered on 11/29/16 02: 56; Admin Dose 1 EA; Start 10/05/16 at 02:00 Miscellaneous Information 1 ea NOTE XX ; Start 10/04/16 at 09:00 Glucose (Glutose) 15 gm Q15M PRN PO DECREASED GLUCOSE; Start 10/04/16 at 09:00 Glucose (Glutose) 22.5 gm Q15M PRN PO DECREASED GLUCOSE; Start 10/04/16 at 09: 00 Dextrose (D50w Syringe) 25 ml Q15M PRN IV DECREASED GLUCOSE; Start 10/04/16 at 09:00 Dextrose (D50w Syringe) 50 ml Q15M PRN IV DECREASED GLUCOSE; Start 10/04/16 at 09:00 Glucagon (Glucagen) 1 mg Q15M PRN IM DECREASED GLUCOSE; Start 10/04/16 at 09:00 Glucose (Glutose) 15 gm Q15M PRN BUCCAL DECREASED GLUCOSE; Start 10/04/16 at 09 :00 Metoprolol Tartrate (Lopressor) 5 mg Q4 PRN IV HR>110 Hold SBP<100; Start 10/05 at 19:30 Montelukast Sodium (Singulair) 10 mg HS PO Last administered on 11/30/16 20:45 ; Admin Dose 10 MG; Start 10/10/16 at 21:00 Theophylline (Benji-24) 300 mg QHS PO Last administered on 11/30/16 22:14; Admin Dose 300 MG; Start 10/10/16 at 21:00 Apixaban (Eliquis) 5 mg BID PO Last administered on 12/01/16 09:12; Admin Dose 5 MG; Start 10/10/16 at 21:00 Digoxin (Digoxin) 0.125 mg DAILY@13 PO Last administered on 11/10/16 13:35; Admin Dose 0.125 MG; Start 10/12/16 at 13:00; Status Future Hold Furosemide (Lasix) 40 mg AM PO Last administered on 11/14/16 08:41; Admin Dose 40 MG; Start 10/25/16 at 09:00; Status Future Hold Amiodarone HCl (Cordarone) 200 mg BID PO Last administered on 12/01/16 09:12; Admin Dose 200 MG; Start 10/24/16 at 21:00 Salmeterol Xinafoate/ Fluticasone (Advair 250/50 Diskus) 1 inh BID INH Last administered on 12/01/16 09:15; Admin Dose 1 INH; Start 11/07/16 at 09:00 Insulin Glargine (Lantus) 14 unit HS SC Last administered on 11/30/16 20:52; Admin Dose 14 UNIT; Start 11/15/16 at 21:00 Metoprolol Succinate (Toprol Xl) 25 mg DAILY PO Last administered on 12/01/16 09:13; Admin Dose 25 MG; Start 11/17/16 at 09:00 Lisinopril (Zestril) 5 mg DAILY PO Last administered on 12/01/16 09:12; Admin Dose 5 MG; Start 11/19/16 at 09:00 Bethanechol Chloride (Urecholine) 25 mg TID PO Last administered on 12/01/16 13:18; Admin Dose 25 MG; Start 11/20/16 at 21:00 Collagenase (Santyl) 1 applic DAILY TOP Last administered on 12/01/16 09:15; Admin Dose 1 APPLIC; Start 11/26/16 at 09:00 FUNMI MEZA MD Dec 01, 2016 15:34
[2016-12-01] MEDS: predniSONE 1 MG TAB PO SCH (17:44)
[2016-12-01 21:00] VITALS: BP 105/60; RESP 19
[2016-12-01] MEDS: ATORVASTATIN 10 MG TAB PO SCH (21:52)
[2016-12-01] MEDS: THEOPHYLLINE (SR) 300 MG CAP PO SCH (21:53)
[2016-12-01] MEDS: MONTELUKAST 10 MG TAB PO SCH (21:53)
[2016-12-01] MEDS: INSULIN GLARGINE [LANtus] 3 ML PEN SC SCH (21:55)
[2016-12-02] MEDS: ALBUTEROL/IPRATROPIUM (NEB) 3 ML AMP HHN SCH ×4 (01:04→20:46)
[2016-12-02] MEDS: ACCU-CHEK XX SCH (02:00)
[2016-12-02 07:16] VITALS: BP 112/57; RESP 18
[2016-12-02] MEDS: INSULIN ASPART [NOVOLOG] 3 ML PEN SC SCH ×7 (08:00→20:34)
[2016-12-02] MEDS: ALBUTEROL/IPRATROPIUM (NEB) 3 ML AMP HHN PRN (09:43)
[2016-12-02 10:16] LABS: POTASSIUM 4.6 mmol/L (3.5-5.1)
[2016-12-02 10:19] LABS: CALCIUM 8.9 mg/dl (8.4-10.2); CREATININE 1.19 mg/dl (0.61-1.24)
[2016-12-02] MEDS: SALMETEROL/FLUTICASONE 250/50 INHA INH SCH ×2 (10:28→20:28)
[2016-12-02] MEDS: LISINOPRIL 5 MG TAB PO SCH (10:28)
[2016-12-02] MEDS: ASPIRIN 81 MG TAB PO SCH (10:28)
[2016-12-02] MEDS: APIXABAN 5 MG TABLET PO SCH ×2 (10:28→20:28)
[2016-12-02] MEDS: FAMOTIDINE 20 MG TAB PO SCH ×2 (10:28→20:28)
[2016-12-02] MEDS: BETHANECHOL 25 MG TAB PO SCH ×3 (10:29→20:28)
[2016-12-02] MEDS: AMIODARONE 200 MG TAB PO SCH ×2 (10:29→20:29)
[2016-12-02] MEDS: METOPROLOL (XL) 25 MG TAB PO SCH (10:30)
[2016-12-02] MEDS: COLLAGENASE 30 GM TUBE TOP SCH (10:35)
[2016-12-02] MEDS: MUPIROCIN 2% 22 GM OINT TOP SCH ×2 (10:35→20:30)
--- NOTE | 2016-12-02 15:21 | CONS ---
Date/Time of Note Date/Time of Note DATE: 12/02/16 TIME: 15:18 Assessment/Plan Assessment/Plan Chief Complaint/Hosp Course IMPRESSION: 1. Atrial fibrillation with rapid ventricular response.-improved HR and now back in SR by ecg most recntly 11/20 2. Congestive heart failure, systolic, acute on chronic. 3. History of cardiomyopathy with decreased left ventricular ejection fraction 20% to 25% per chart biopsy. 4. Shortness of breath. 5. Status post hypercapnic respiratory failure, status post extubation. 6. Chronic obstructive pulmonary disease. 7. Hypertension-well controlled 8. Dyslipidemia. 9. History of automatic implantable cardioverter-defibrillator with possible discharge.-s/p interrogation with ICD shock for uncontrolled rapid AF. 10. Pneumonia. 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 -Continue statin -Follow volume status and will spot dose lasix as necessary -Continue abx's and f/u cx data and -awaiting placement Problems: Consultation Date/Type/Reason Admit Date/Time Sep 28, 2016 at 14:41 Initial Consult Date 09/28/16 Type of Consultation: Cardiology Reason for Consultation Cardiomyopathy/ICD discharge/PAF Referring Provider: DEVON MUHAMMAD MD Exam/Review of Systems Vital Signs Vitals Vital Signs Date Time Temp Pulse Resp B/P Pulse Ox O2 Delivery O2 Flow Rate FiO2 12/02/16 14:16 77 22 94 4.0 12/02/16 12:29 Nasal Cannula 12/02/16 07:16 99.3 112/57 Intake and Output 12/01/16 12/01/16 12/02/16 15:00 23:00 07:00 Intake Total 1240 ml 300 ml Output Total 1350 ml 1200 ml Balance -110 ml -900 ml Exam Review of Systems: CONSTITUTIONAL: No fevers, chills. PULMONARY: No sob CARDIOVASCULAR: No chest pain/palpitations GASTROINTESTINAL: No nausea/vomiting. GENITOURINARY: No hematuria/dysuria. MUSCULOSKELETAL: No myagias/arthalgias. PSYCHIATRIC: The patient denies depression. NEUROLOGIC: No weakness Constitutional: alert Psych: no complaints Head: normocephalic ENMT: mucosa pink and moist Neck: jvd (cm water), supple Respiratory: diminished breath sounds (at bases/B) Cardiovascular: regular rate and rhythm Gastrointestinal: non-tender, soft Musculoskeletal: muscle tone (normal) Extremities: edema (none) Neurological: other (NO focal deficits) Results Result Diagram: 11/29/16 1420 12/02/16 0915 Results 24 hrs Laboratory Tests Test 12/01/16 16:51 12/01/16 21:50 12/02/16 02:10 12/02/16 08:33 Bedside Glucose 114 194 109 97 Test 12/02/16 09:15 12/02/16 12:05 Sodium Level 134 L Potassium Level 4.6 Chloride Level 94 L Carbon Dioxide Level 35 H Anion Gap 10 Blood Urea Nitrogen 21 H Creatinine 1.19 Glucose Level 107 Calcium Level 8.9 Bedside Glucose 124 Medications Medications Current Medications IV Flush (NS 10 ml) 10 ml PRN PRN IV IV PROTOCOL Last administered on 09:49; Admin Dose 10 ML; Start 09/28/16 at 14:00 Ondansetron HCl (Zofran Inj) 4 mg Q6H PRN IV NAUSEA AND/OR VOMITING; Start at 15:00 Nitroglycerin (Nitroglycerin (Sl Tab) 0.4 Mg) 1 tab Q5M PRN SL CHEST PAIN; Start 09/28/16 at 15:00 Acetaminophen (Tylenol Liquid) 650 mg Q6H PRN PO PAIN LEVEL 1-3 OR FEVER Last administered on 11/13/16 05:59; Admin Dose 650 MG; Start 09/28/16 at 15:00 Acetaminophen (Tylenol Tab) 650 mg Q6H PRN PO PAIN LEVEL 1-3 OR FEVER Last administered on 11/24/16 20:31; Admin Dose 650 MG; Start 09/28/16 at 15:00 Morphine Sulfate (morphine) 2 mg Q4H PRN IV PAIN LEVEL 7-10 Last administered on 11/24/16 16:22; Admin Dose 2 MG; Start 09/28/16 at 15:00 Lorazepam (Ativan) 1 mg Q2H PRN IV ANXIETY Last administered on 11/30/16 09:49 ; Admin Dose 1 MG; Start 09/28/16 at 15:00 Docusate Sodium (Colace) 100 mg Q12H PRN PO CONSTIPATION Last administered on 08:14; Admin Dose 100 MG; Start 09/28/16 at 15:00 Famotidine (Pepcid) 20 mg Q12 PO Last administered on 12/02/16 10:28; Admin Dose 20 MG; Start 09/28/16 at 21:00 Aspirin (Aspirin) 81 mg DAILY PO Last administered on 12/02/16 10:28; Admin Dose 81 MG; Start 09/29/16 at 09:00 Atorvastatin Calcium (Lipitor) 10 mg QHS PO Last administered on 12/01/16 21: 52; Admin Dose 10 MG; Start 09/28/16 at 21:00 Tiotropium [place] (Spiriva) 1 inh DAILY INH ; Start 09/28/16 at 16:00; Status Future Hold Mupirocin (Bactroban) 1 applic BID TOP Last administered on 12/02/16 10:35; Admin Dose 1 APPLIC; Start 09/30/16 at 09:00 Diagnostic Test (Pha) (Accucheck) 1 ea 02 XX Last administered on 11/29/16 02: 56; Admin Dose 1 EA; Start 10/05/16 at 02:00 Miscellaneous Information 1 ea NOTE XX ; Start 10/04/16 at 09:00 Glucose (Glutose) 15 gm Q15M PRN PO DECREASED GLUCOSE; Start 10/04/16 at 09:00 Glucose (Glutose) 22.5 gm Q15M PRN PO DECREASED GLUCOSE; Start 10/04/16 at 09: 00 Dextrose (D50w Syringe) 25 ml Q15M PRN IV DECREASED GLUCOSE; Start 10/04/16 at 09:00 Dextrose (D50w Syringe) 50 ml Q15M PRN IV DECREASED GLUCOSE; Start 10/04/16 at 09:00 Glucagon (Glucagen) 1 mg Q15M PRN IM DECREASED GLUCOSE; Start 10/04/16 at 09:00 Glucose (Glutose) 15 gm Q15M PRN BUCCAL DECREASED GLUCOSE; Start 10/04/16 at 09 :00 Metoprolol Tartrate (Lopressor) 5 mg Q4 PRN IV HR>110 Hold SBP<100; Start 10/05 at 19:30 Montelukast Sodium (Singulair) 10 mg HS PO Last administered on 12/01/16 21:53 ; Admin Dose 10 MG; Start 10/10/16 at 21:00 Theophylline (Benji-24) 300 mg QHS PO Last administered on 12/01/16 21:53; Admin Dose 300 MG; Start 10/10/16 at 21:00 Apixaban (Eliquis) 5 mg BID PO Last administered on 12/02/16 10:28; Admin Dose 5 MG; Start 10/10/16 at 21:00 Digoxin (Digoxin) 0.125 mg DAILY@13 PO Last administered on 11/10/16 13:35; Admin Dose 0.125 MG; Start 10/12/16 at 13:00; Status Future Hold Furosemide (Lasix) 40 mg AM PO Last administered on 11/14/16 08:41; Admin Dose 40 MG; Start 10/25/16 at 09:00; Status Future Hold Amiodarone HCl (Cordarone) 200 mg BID PO Last administered on 12/02/16 10:29; Admin Dose 200 MG; Start 10/24/16 at 21:00 Salmeterol Xinafoate/ Fluticasone (Advair 250/50 Diskus) 1 inh BID INH Last administered on 12/02/16 10:28; Admin Dose 1 INH; Start 11/07/16 at 09:00 Insulin Glargine (Lantus) 14 unit HS SC Last administered on 12/01/16 21:55; Admin Dose 14 UNIT; Start 11/15/16 at 21:00 Metoprolol Succinate (Toprol Xl) 25 mg DAILY PO Last administered on 12/02/16 10:30; Admin Dose 25 MG; Start 11/17/16 at 09:00 Lisinopril (Zestril) 5 mg DAILY PO Last administered on 12/02/16 10:28; Admin Dose 5 MG; Start 11/19/16 at 09:00 Bethanechol Chloride (Urecholine) 25 mg TID PO Last administered on 12/02/16 14:27; Admin Dose 25 MG; Start 11/20/16 at 21:00 Collagenase (Santyl) 1 applic DAILY TOP Last administered on 3/29/17at 10:35; Admin Dose 1 APPLIC; Start 11/26/16 at 09:00 СВЕТЛАНА PADRON Dec 02, 2016 15:21
--- NOTE | 2016-12-02 15:58 | PN ---
Date/Time of Note Date/Time of Note DATE: 12/02/16 TIME: 15:57 Assessment/Plan VTE Prophylaxis VTE Prophylaxis Intervention: other (eliquis) Lines/Catheters IV Catheter Type (from Nrs): Saline Lock Urinary Cath still in place: Yes Reason Cath still needed: urinary retention Assessment/Plan Assessment/Plan 1. 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 treated 2. 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 Simpson 3. COPD exacerbation, stable, neb, decrease steroid 4. facility acquired pneumonia, with ESBL E. Coli, and Lauren albicans, treated 5. Atrial fibrillation with RVR, sinus now, follow up with cardiology 6. Congestive heart failure, systolic, chronic, stable 7. Ischemic cardiomyopathy 8. CAD 9. s/p ICD, stable 10. Essential hypertension, stable 11. Dyslipidemia. Continue statin. 12. Hx of Foot Fx- stable 13. DVT prophylaxis: eliquis 14. S/P IVC filter 15. Chronic anemia, one unit PRBC 11/19/2016 16. Awaiting for placemen Subjective 24 Hr Interval Summary Free Text/Dictation no event. seen and examined Exam/Review of Systems Vital Signs Vitals Vital Signs Date Time Temp Pulse Resp B/P Pulse Ox O2 Delivery O2 Flow Rate FiO2 12/02/16 14:16 77 22 94 4.0 12/02/16 12:29 Nasal Cannula 12/02/16 07:16 99.3 112/57 Intake and Output 12/01/16 12/01/16 12/02/16 15:00 23:00 07:00 Intake Total 1240 ml 300 ml Output Total 1350 ml 1200 ml Balance -110 ml -900 ml Exam Constitutional: alert, oriented, well developed Psych: nl mood/affect, no complaints Head: atraumatic, normocephalic Eyes: EOMI, PERRL, nl conjunctiva, nl lids ENMT: nl external ears & nose, nl lips & teeth, nl nasal mucosa & septum Neck: non-tender, supple Respiratory: clear to auscultation, normal air movement, No congested cough, No crackles/rales, No diminished breath sounds, No intercostal retraction, No labored breathing, No other, No respirations, No tactile fremitus, No wheezing Cardiovascular: irregular rhythm, nl pulses, No S3, No S4, No bruits, No diastolic murmur, No edema, No gallop, No jugular venous distention (JVD), No murmurs/extra sounds, No other, No rub, No systolic murmur Gastrointestinal: nl liver, spleen, non-tender, soft, No ascites, No bowel sounds, No distended, No firm, No hepatomegaly, No mass , No other, No rebound or guarding, No splenomegaly, No surgical scars, No tender Musculoskeletal: nl extremities to inspection Extremities: normal pulses, No calf tenderness, No clubbing, No cyanosis, No edema, No other, No palpable cord, No pitting pedal edema, No tenderness 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, nl mental status, nl speech, nl strength Skin: nl turgor Lymph: nl lymph nodes Results Result Diagram: 11/29/16 1420 12/02/16 0915 Results 24 hrs Laboratory Tests Test 12/01/16 16:51 12/01/16 21:50 12/02/16 02:10 12/02/16 08:33 Bedside Glucose 114 194 109 97 Test 12/02/16 09:15 12/02/16 12:05 Sodium Level 134 L Potassium Level 4.6 Chloride Level 94 L Carbon Dioxide Level 35 H Anion Gap 10 Blood Urea Nitrogen 21 H Creatinine 1.19 Glucose Level 107 Calcium Level 8.9 Bedside Glucose 124 Medications Medications Current Medications IV Flush (NS 10 ml) 10 ml PRN PRN IV IV PROTOCOL Last administered on 09:49; Admin Dose 10 ML; Start 09/28/16 at 14:00 Ondansetron HCl (Zofran Inj) 4 mg Q6H PRN IV NAUSEA AND/OR VOMITING; Start at 15:00 Nitroglycerin (Nitroglycerin (Sl Tab) 0.4 Mg) 1 tab Q5M PRN SL CHEST PAIN; Start 09/28/16 at 15:00 Acetaminophen (Tylenol Liquid) 650 mg Q6H PRN PO PAIN LEVEL 1-3 OR FEVER Last administered on 11/13/16 05:59; Admin Dose 650 MG; Start 09/28/16 at 15:00 Acetaminophen (Tylenol Tab) 650 mg Q6H PRN PO PAIN LEVEL 1-3 OR FEVER Last administered on 11/24/16 20:31; Admin Dose 650 MG; Start 09/28/16 at 15:00 Morphine Sulfate (morphine) 2 mg Q4H PRN IV PAIN LEVEL 7-10 Last administered on 11/24/16 16:22; Admin Dose 2 MG; Start 09/28/16 at 15:00 Lorazepam (Ativan) 1 mg Q2H PRN IV ANXIETY Last administered on 11/30/16 09:49 ; Admin Dose 1 MG; Start 09/28/16 at 15:00 Docusate Sodium (Colace) 100 mg Q12H PRN PO CONSTIPATION Last administered on 08:14; Admin Dose 100 MG; Start 09/28/16 at 15:00 Famotidine (Pepcid) 20 mg Q12 PO Last administered on 12/02/16 10:28; Admin Dose 20 MG; Start 09/28/16 at 21:00 Aspirin (Aspirin) 81 mg DAILY PO Last administered on 12/02/16 10:28; Admin Dose 81 MG; Start 09/29/16 at 09:00 Atorvastatin Calcium (Lipitor) 10 mg QHS PO Last administered on 12/01/16 21: 52; Admin Dose 10 MG; Start 09/28/16 at 21:00 Tiotropium [place] (Spiriva) 1 inh DAILY INH ; Start 09/28/16 at 16:00; Status Future Hold Mupirocin (Bactroban) 1 applic BID TOP Last administered on 12/02/16 10:35; Admin Dose 1 APPLIC; Start 09/30/16 at 09:00 Diagnostic Test (Pha) (Accucheck) 1 ea 02 XX Last administered on 11/29/16 02: 56; Admin Dose 1 EA; Start 10/05/16 at 02:00 Miscellaneous Information 1 ea NOTE XX ; Start 10/04/16 at 09:00 Glucose (Glutose) 15 gm Q15M PRN PO DECREASED GLUCOSE; Start 10/04/16 at 09:00 Glucose (Glutose) 22.5 gm Q15M PRN PO DECREASED GLUCOSE; Start 10/04/16 at 09: 00 Dextrose (D50w Syringe) 25 ml Q15M PRN IV DECREASED GLUCOSE; Start 10/04/16 at 09:00 Dextrose (D50w Syringe) 50 ml Q15M PRN IV DECREASED GLUCOSE; Start 10/04/16 at 09:00 Glucagon (Glucagen) 1 mg Q15M PRN IM DECREASED GLUCOSE; Start 10/04/16 at 09:00 Glucose (Glutose) 15 gm Q15M PRN BUCCAL DECREASED GLUCOSE; Start 10/04/16 at 09 :00 Metoprolol Tartrate (Lopressor) 5 mg Q4 PRN IV HR>110 Hold SBP<100; Start 10/05 at 19:30 Montelukast Sodium (Singulair) 10 mg HS PO Last administered on 12/01/16 21:53 ; Admin Dose 10 MG; Start 10/10/16 at 21:00 Theophylline (Benji-24) 300 mg QHS PO Last administered on 12/01/16 21:53; Admin Dose 300 MG; Start 10/10/16 at 21:00 Apixaban (Eliquis) 5 mg BID PO Last administered on 12/02/16 10:28; Admin Dose 5 MG; Start 10/10/16 at 21:00 Digoxin (Digoxin) 0.125 mg DAILY@13 PO Last administered on 11/10/16 13:35; Admin Dose 0.125 MG; Start 10/12/16 at 13:00; Status Future Hold Furosemide (Lasix) 40 mg AM PO Last administered on 11/14/16 08:41; Admin Dose 40 MG; Start 10/25/16 at 09:00; Status Future Hold Amiodarone HCl (Cordarone) 200 mg BID PO Last administered on 12/02/16 10:29; Admin Dose 200 MG; Start 10/24/16 at 21:00 Salmeterol Xinafoate/ Fluticasone (Advair 250/50 Diskus) 1 inh BID INH Last administered on 12/02/16 10:28; Admin Dose 1 INH; Start 11/07/16 at 09:00 Insulin Glargine (Lantus) 14 unit HS SC Last administered on 12/01/16 21:55; Admin Dose 14 UNIT; Start 11/15/16 at 21:00 Metoprolol Succinate (Toprol Xl) 25 mg DAILY PO Last administered on 12/02/16 10:30; Admin Dose 25 MG; Start 11/17/16 at 09:00 Lisinopril (Zestril) 5 mg DAILY PO Last administered on 12/02/16 10:28; Admin Dose 5 MG; Start 11/19/16 at 09:00 Bethanechol Chloride (Urecholine) 25 mg TID PO Last administered on 12/02/16 14:27; Admin Dose 25 MG; Start 11/20/16 at 21:00 Collagenase (Santyl) 1 applic DAILY TOP Last administered on 12/02/16 10:35; Admin Dose 1 APPLIC; Start 11/26/16 at 09:00 FUNMI MEZA MD Dec 02, 2016 15:58
[2016-12-02] MEDS: predniSONE 1 MG TAB PO SCH (17:00)
[2016-12-02 20:00] VITALS: BP 115/56; RESP 19
[2016-12-02] MEDS: ATORVASTATIN 10 MG TAB PO SCH (20:28)
[2016-12-02] MEDS: THEOPHYLLINE (SR) 300 MG CAP PO SCH (20:28)
[2016-12-02] MEDS: MONTELUKAST 10 MG TAB PO SCH (20:28)
[2016-12-02] MEDS: INSULIN GLARGINE [LANtus] 3 ML PEN SC SCH (20:35)
[2016-12-03] MEDS: ACCU-CHEK XX SCH (01:57)
[2016-12-03] MEDS: ALBUTEROL/IPRATROPIUM (NEB) 3 ML AMP HHN SCH ×4 (02:00→19:35)
[2016-12-03 07:24] VITALS: BP 134/62; RESP 18
[2016-12-03] MEDS: INSULIN ASPART [NOVOLOG] 3 ML PEN SC SCH ×7 (08:00→21:00)
[2016-12-03] MEDS: SALMETEROL/FLUTICASONE 250/50 INHA INH SCH ×2 (08:58→21:26)
[2016-12-03] MEDS: BETHANECHOL 25 MG TAB PO SCH ×3 (08:58→21:26)
[2016-12-03] MEDS: APIXABAN 5 MG TABLET PO SCH ×2 (08:58→21:26)
[2016-12-03] MEDS: FAMOTIDINE 20 MG TAB PO SCH ×2 (08:58→21:25)
[2016-12-03] MEDS: ASPIRIN 81 MG TAB PO SCH (08:58)
[2016-12-03] MEDS: LISINOPRIL 5 MG TAB PO SCH (08:59)
[2016-12-03] MEDS: METOPROLOL (XL) 25 MG TAB PO SCH (08:59)
[2016-12-03] MEDS: AMIODARONE 200 MG TAB PO SCH ×2 (08:59→21:00)
[2016-12-03] MEDS: MUPIROCIN 2% 22 GM OINT TOP SCH ×2 (09:06→21:26)
[2016-12-03] MEDS: COLLAGENASE 30 GM TUBE TOP SCH (09:06)
--- NOTE | 2016-12-03 15:41 | PN ---
Date/Time of Note Date/Time of Note DATE: 12/03/16 TIME: 15:37 Assessment/Plan VTE Prophylaxis VTE Prophylaxis Intervention: other (eliquis) Lines/Catheters IV Catheter Type (from Nrsg): Saline Lock Urinary Cath still in place: Yes Reason Cath still needed: urinary retention Assessment/Plan Assessment/Plan 1. 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 Simpson 2. COPD exacerbation, stable, neb, decrease steroid 3. facility acquired pneumonia, with ESBL E. Coli, and Lauren albicans, treated 4. 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 fulled treated. 5. Atrial fibrillation with RVR, sinus now, follow up with cardiology 6. Congestive heart failure, systolic, chronic, stable 7. Ischemic cardiomyopathy 8. CAD 9. s/p ICD, stable 10. Essential hypertension, stable 11. Dyslipidemia. Continue statin. 12. Hx of Foot Fx- stable 13. DVT prophylaxis: eliquis 14. S/P IVC filter 15. Chronic anemia, one unit PRBC 11/19/2016 16. Awaiting for placement Subjective 24 Hr Interval Summary Free Text/Dictation no event. Exam/Review of Systems Vital Signs Vitals Vital Signs Date Time Temp Pulse Resp B/P Pulse Ox O2 Delivery O2 Flow Rate FiO2 12/03/16 10:25 Nasal Cannula 2.0 12/03/16 07:24 98.3 70 18 134/62 92 Intake and Output 12/02/16 12/02/16 12/03/16 15:00 23:00 07:00 Intake Total 1560 ml 1200 ml Output Total 1800 ml 2000 ml Balance -240 ml -800 ml Exam Constitutional: alert, oriented, well developed Psych: nl mood/affect, no complaints Head: atraumatic, normocephalic Eyes: EOMI, PERRL, nl conjunctiva, nl lids ENMT: nl external ears & nose, nl lips & teeth, nl nasal mucosa & septum Neck: non-tender, supple Respiratory: clear to auscultation, normal air movement, No congested cough, No crackles/rales, No diminished breath sounds, No intercostal retraction, No labored breathing, No other, No respirations, No tactile fremitus, No wheezing Cardiovascular: nl pulses, regular rate and rhythm, No S3, No S4, No bruits, No diastolic murmur, No edema, No gallop, No irregular rhythm, No jugular venous distention (JVD), No murmurs/extra sounds, No other, No rub, No systolic murmur Gastrointestinal: nl liver, spleen, non-tender, soft, No ascites, No bowel sounds, No distended, No firm, No hepatomegaly, No mass , No other, No rebound or guarding, No splenomegaly, No surgical scars, No tender Musculoskeletal: nl extremities to inspection Extremities: normal pulses, No calf tenderness, No clubbing, No cyanosis, No edema, No other, No palpable cord, No pitting pedal edema, No tenderness Neurological: 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, nl mental status, nl speech, nl strength Skin: nl turgor Lymph: nl lymph nodes Results Result Diagram: 11/29/16 1420 12/02/16 0915 Results 24 hrs Laboratory Tests Test 12/02/16 16:57 12/02/16 20:27 12/03/16 01:45 12/03/16 09:02 Bedside Glucose 102 187 123 105 Test 12/03/16 12:08 Bedside Glucose 212 Medications Medications Current Medications IV Flush (NS 10 ml) 10 ml PRN PRN IV IV PROTOCOL Last administered on 09:49; Admin Dose 10 ML; Start 09/28/16 at 14:00 Ondansetron HCl (Zofran Inj) 4 mg Q6H PRN IV NAUSEA AND/OR VOMITING; Start at 15:00 Nitroglycerin (Nitroglycerin (Sl Tab) 0.4 Mg) 1 tab Q5M PRN SL CHEST PAIN; Start 09/28/16 at 15:00 Acetaminophen (Tylenol Liquid) 650 mg Q6H PRN PO PAIN LEVEL 1-3 OR FEVER Last administered on 11/13/16 05:59; Admin Dose 650 MG; Start 09/28/16 at 15:00 Acetaminophen (Tylenol Tab) 650 mg Q6H PRN PO PAIN LEVEL 1-3 OR FEVER Last administered on 11/24/16 20:31; Admin Dose 650 MG; Start 09/28/16 at 15:00 Morphine Sulfate (morphine) 2 mg Q4H PRN IV PAIN LEVEL 7-10 Last administered on 11/24/16 16:22; Admin Dose 2 MG; Start 09/28/16 at 15:00 Lorazepam (Ativan) 1 mg Q2H PRN IV ANXIETY Last administered on 11/30/16 09:49 ; Admin Dose 1 MG; Start 09/28/16 at 15:00 Docusate Sodium (Colace) 100 mg Q12H PRN PO CONSTIPATION Last administered on 08:14; Admin Dose 100 MG; Start 09/28/16 at 15:00 Famotidine (Pepcid) 20 mg Q12 PO Last administered on 12/03/16 08:58; Admin Dose 20 MG; Start 09/28/16 at 21:00 Aspirin (Aspirin) 81 mg DAILY PO Last administered on 12/03/16 08:58; Admin Dose 81 MG; Start 09/29/16 at 09:00 Atorvastatin Calcium (Lipitor) 10 mg QHS PO Last administered on 12/02/16 20: 28; Admin Dose 10 MG; Start 09/28/16 at 21:00 Tiotropium [place] (Spiriva) 1 inh DAILY INH ; Start 09/28/16 at 16:00; Status Future Hold Mupirocin (Bactroban) 1 applic BID TOP Last administered on 12/03/16 09:06; Admin Dose 1 APPLIC; Start 09/30/16 at 09:00 Diagnostic Test (Pha) (Accucheck) 1 ea 02 XX Last administered on 12/03/16 01: 57; Admin Dose 1 EA; Start 10/05/16 at 02:00 Miscellaneous Information 1 ea NOTE XX ; Start 10/04/16 at 09:00 Glucose (Glutose) 15 gm Q15M PRN PO DECREASED GLUCOSE; Start 10/04/16 at 09:00 Glucose (Glutose) 22.5 gm Q15M PRN PO DECREASED GLUCOSE; Start 10/04/16 at 09: 00 Dextrose (D50w Syringe) 25 ml Q15M PRN IV DECREASED GLUCOSE; Start 10/04/16 at 09:00 Dextrose (D50w Syringe) 50 ml Q15M PRN IV DECREASED GLUCOSE; Start 10/04/16 at 09:00 Glucagon (Glucagen) 1 mg Q15M PRN IM DECREASED GLUCOSE; Start 10/04/16 at 09:00 Glucose (Glutose) 15 gm Q15M PRN BUCCAL DECREASED GLUCOSE; Start 10/04/16 at 09 :00 Metoprolol Tartrate (Lopressor) 5 mg Q4 PRN IV HR>110 Hold SBP<100; Start 10/05 at 19:30 Montelukast Sodium (Singulair) 10 mg HS PO Last administered on 12/02/16 20:28 ; Admin Dose 10 MG; Start 10/10/16 at 21:00 Theophylline (Benji-24) 300 mg QHS PO Last administered on 12/02/16 20:28; Admin Dose 300 MG; Start 10/10/16 at 21:00 Apixaban (Eliquis) 5 mg BID PO Last administered on 12/03/16 08:58; Admin Dose 5 MG; Start 10/10/16 at 21:00 Digoxin (Digoxin) 0.125 mg DAILY@13 PO Last administered on 11/10/16 13:35; Admin Dose 0.125 MG; Start 10/12/16 at 13:00; Status Future Hold Furosemide (Lasix) 40 mg AM PO Last administered on 11/14/16 08:41; Admin Dose 40 MG; Start 10/25/16 at 09:00; Status Future Hold Amiodarone HCl (Cordarone) 200 mg BID PO Last administered on 12/03/16 08:59; Admin Dose 200 MG; Start 10/24/16 at 21:00 Salmeterol Xinafoate/ Fluticasone (Advair 250/50 Diskus) 1 inh BID INH Last administered on 12/03/16 08:58; Admin Dose 1 INH; Start 11/07/16 at 09:00 Insulin Glargine (Lantus) 14 unit HS SC Last administered on 12/02/16 20:35; Admin Dose 14 UNIT; Start 11/15/16 at 21:00 Metoprolol Succinate (Toprol Xl) 25 mg DAILY PO Last administered on 12/03/16 08:59; Admin Dose 25 MG; Start 11/17/16 at 09:00 Lisinopril (Zestril) 5 mg DAILY PO Last administered on 12/03/16 08:59; Admin Dose 5 MG; Start 11/19/16 at 09:00 Bethanechol Chloride (Urecholine) 25 mg TID PO Last administered on 12/03/16 12:07; Admin Dose 25 MG; Start 11/20/16 at 21:00 Collagenase (Santyl) 1 applic DAILY TOP Last administered on 12/03/16t 09:06; Admin Dose 1 APPLIC; Start 11/26/16 at 09:00 FUNMI MEZA MD Dec 03, 2016 15:41
[2016-12-03] MEDS: predniSONE 1 MG TAB PO SCH (17:17)
--- NOTE | 2016-12-03 17:56 | PN ---
DATE: 12/03/2016 SUBJECTIVE: He has urinary retention and patient states that he is comfortable. He denies having a ny pain. He has expressed many times that he wants to learn how to empty the bag; however, he has n ot shown the ability to do it even when the nurses try to teach him. OBJECTIVE: VITAL SIGNS: Temperature is 98.3, pulse is 70, respirations 18, blood pressure 134/62. ABDOMEN: Soft. The Pruett catheter is draining clear urine. LABORATORY DATA: The blood sugar is 212. IMPRESSION: Urinary retention. The patient does have a Pruett catheter. Prior attempts to remove t he Pruett catheter and see if he does void were not successful. Therefore, this patient will need to have an indwelling Pruett catheter all the time and change it on a regular basis. He is still in [facility] because of problems with placement. Dictated By: JOSÉ DOS SANTOS/NANDO Conf#: [id number] DID#: [id number]
[2016-12-03 19:35] VITALS: BP 106/56; RESP 18
--- NOTE | 2016-12-03 20:12 | CONS ---
Date/Time of Note Date/Time of Note DATE: 12/03/16 TIME: 20:10 Assessment/Plan Assessment/Plan Chief Complaint/Hosp Course IMPRESSION: 1. Atrial fibrillation with rapid ventricular response.-improved HR and now back in SR by ecg most recntly 11/20 2. Congestive heart failure, systolic, acute on chronic. 3. History of cardiomyopathy with decreased left ventricular ejection fraction 20% to 25% per chart biopsy. 4. Shortness of breath. 5. Status post hypercapnic respiratory failure, status post extubation. 6. Chronic obstructive pulmonary disease. 7. Hypertension-well controlled 8. Dyslipidemia. 9. History of automatic implantable cardioverter-defibrillator with possible discharge.-s/p interrogation with ICD shock for uncontrolled rapid AF. 10. Pneumonia. 11.Positive troponin-minimal with no sig uptrend 12.UTI-Klebs 14.Bacteremia-Klebs/persistent-most recent Bld cx's negative 15.ARF-improved 16.Urinary retention-agustin in place Recc -Tele -Continue asa/Eliquis -ACEI/BB as tolerated at current doses -Continue to hold digoxin in setting of ARF and well controlled heart rates although digoxin level now down and will likely resume soon if senior health physics technician remains wnl -Continue statin -Follow volume status and will spot dose lasix as necessary -Continue abx's and f/u cx data and -awaiting placement Problems: Consultation Date/Type/Reason Admit Date/Time Sep 28, 2016 at 14:41 Initial Consult Date 09/28/16 Type of Consultation: Cardiology Reason for Consultation AF/CHF/cardiomyopathy Referring Provider: DEVON MUHAMMAD MD Exam/Review of Systems Vital Signs Vitals Vital Signs Date Time Temp Pulse Resp B/P Pulse Ox O2 Delivery O2 Flow Rate FiO2 12/03/16 19:36 68 20 94 Nasal Cannula 3.0 12/03/16 19:35 97.9 106/56 Intake and Output 12/02/16 12/02/16 12/03/16 15:00 23:00 07:00 Intake Total 1560 ml 1200 ml Output Total 1800 ml 2000 ml Balance -240 ml -800 ml Exam Review of Systems: CONSTITUTIONAL: No fevers, chills. PULMONARY: No sob CARDIOVASCULAR: No chest pain/palpitations GASTROINTESTINAL: No nausea/vomiting. GENITOURINARY: No hematuria/dysuria. MUSCULOSKELETAL: No myagias/arthalgias. PSYCHIATRIC: The patient denies depression. NEUROLOGIC: No weakness Constitutional: alert, oriented Psych: no complaints Head: normocephalic ENMT: mucosa pink and moist Neck: jvd (9 cm water), supple Respiratory: diminished breath sounds (at bases/B) Cardiovascular: regular rate and rhythm Gastrointestinal: non-tender, soft Musculoskeletal: muscle tone (normal) Extremities: pitting pedal edema (bilateral) Neurological: other (No focal deficits) Results Result Diagram: 11/29/16 1420 12/02/16 0915 Results 24 hrs Laboratory Tests Test 12/02/16 20:27 12/03/16 01:45 12/03/16 09:02 12/03/16 12:08 Bedside Glucose 187 123 105 212 Test 12/03/16 17:18 Bedside Glucose 109 Medications Medications Current Medications IV Flush (NS 10 ml) 10 ml PRN PRN IV IV PROTOCOL Last administered on 09:49; Admin Dose 10 ML; Start 09/28/16 at 14:00 Ondansetron HCl (Zofran Inj) 4 mg Q6H PRN IV NAUSEA AND/OR VOMITING; Start at 15:00 Nitroglycerin (Nitroglycerin (Sl Tab) 0.4 Mg) 1 tab Q5M PRN SL CHEST PAIN; Start 09/28/16 at 15:00 Acetaminophen (Tylenol Liquid) 650 mg Q6H PRN PO PAIN LEVEL 1-3 OR FEVER Last administered on 11/13/16 05:59; Admin Dose 650 MG; Start 09/28/16 at 15:00 Acetaminophen (Tylenol Tab) 650 mg Q6H PRN PO PAIN LEVEL 1-3 OR FEVER Last administered on 11/24/16 20:31; Admin Dose 650 MG; Start 09/28/16 at 15:00 Morphine Sulfate (morphine) 2 mg Q4H PRN IV PAIN LEVEL 7-10 Last administered on 11/24/16 16:22; Admin Dose 2 MG; Start 09/28/16 at 15:00 Lorazepam (Ativan) 1 mg Q2H PRN IV ANXIETY Last administered on 11/30/16 09:49 ; Admin Dose 1 MG; Start 09/28/16 at 15:00 Docusate Sodium (Colace) 100 mg Q12H PRN PO CONSTIPATION Last administered on 08:14; Admin Dose 100 MG; Start 09/28/16 at 15:00 Famotidine (Pepcid) 20 mg Q12 PO Last administered on 12/03/16 08:58; Admin Dose 20 MG; Start 09/28/16 at 21:00 Aspirin (Aspirin) 81 mg DAILY PO Last administered on 12/03/16 08:58; Admin Dose 81 MG; Start 09/29/16 at 09:00 Atorvastatin Calcium (Lipitor) 10 mg QHS PO Last administered on 12/02/16 20: 28; Admin Dose 10 MG; Start 09/28/16 at 21:00 Tiotropium [place] (Spiriva) 1 inh DAILY INH ; Start 09/28/16 at 16:00; Status Future Hold Mupirocin (Bactroban) 1 applic BID TOP Last administered on 12/03/16 09:06; Admin Dose 1 APPLIC; Start 09/30/16 at 09:00 Diagnostic Test (Pha) (Accucheck) 1 ea 02 XX Last administered on 12/03/16 01: 57; Admin Dose 1 EA; Start 10/05/16 at 02:00 Miscellaneous Information 1 ea NOTE XX ; Start 10/04/16 at 09:00 Glucose (Glutose) 15 gm Q15M PRN PO DECREASED GLUCOSE; Start 10/04/16 at 09:00 Glucose (Glutose) 22.5 gm Q15M PRN PO DECREASED GLUCOSE; Start 10/04/16 at 09: 00 Dextrose (D50w Syringe) 25 ml Q15M PRN IV DECREASED GLUCOSE; Start 10/04/16 at 09:00 Dextrose (D50w Syringe) 50 ml Q15M PRN IV DECREASED GLUCOSE; Start 10/04/16 at 09:00 Glucagon (Glucagen) 1 mg Q15M PRN IM DECREASED GLUCOSE; Start 10/04/16 at 09:00 Glucose (Glutose) 15 gm Q15M PRN BUCCAL DECREASED GLUCOSE; Start 10/04/16 at 09 :00 Metoprolol Tartrate (Lopressor) 5 mg Q4 PRN IV HR>110 Hold SBP<100; Start 10/05 at 19:30 Montelukast Sodium (Singulair) 10 mg HS PO Last administered on 12/02/16 20:28 ; Admin Dose 10 MG; Start 10/10/16 at 21:00 Theophylline (Benji-24) 300 mg QHS PO Last administered on 12/02/16 20:28; Admin Dose 300 MG; Start 10/10/16 at 21:00 Apixaban (Eliquis) 5 mg BID PO Last administered on 12/03/16 08:58; Admin Dose 5 MG; Start 10/10/16 at 21:00 Digoxin (Digoxin) 0.125 mg DAILY@13 PO Last administered on 11/10/16 13:35; Admin Dose 0.125 MG; Start 10/12/16 at 13:00; Status Future Hold Furosemide (Lasix) 40 mg AM PO Last administered on 11/14/16 08:41; Admin Dose 40 MG; Start 10/25/16 at 09:00; Status Future Hold Amiodarone HCl (Cordarone) 200 mg BID PO Last administered on 12/03/16 08:59; Admin Dose 200 MG; Start 10/24/16 at 21:00 Salmeterol Xinafoate/ Fluticasone (Advair 250/50 Diskus) 1 inh BID INH Last administered on 12/03/16 08:58; Admin Dose 1 INH; Start 11/07/16 at 09:00 Insulin Glargine (Lantus) 14 unit HS SC Last administered on 12/02/16 20:35; Admin Dose 14 UNIT; Start 11/15/16 at 21:00 Metoprolol Succinate (Toprol Xl) 25 mg DAILY PO Last administered on 12/03/16 08:59; Admin Dose 25 MG; Start 11/17/16 at 09:00 Lisinopril (Zestril) 5 mg DAILY PO Last administered on 12/03/16 08:59; Admin Dose 5 MG; Start 11/19/16 at 09:00 Bethanechol Chloride (Urecholine) 25 mg TID PO Last administered on 12/03/16 12:07; Admin Dose 25 MG; Start 11/20/16 at 21:00 Collagenase (Santyl) 1 applic DAILY TOP Last administered on 12/03/16 09:06; Admin Dose 1 APPLIC; Start 11/26/16 at 09:00 СВЕТЛАНА PADRON 30, 2017 20:12
[2016-12-03] MEDS ORDERED: FUROSEMIDE 20 MG INJ IV ONE (20:30)
[2016-12-03] MEDS: ATORVASTATIN 10 MG TAB PO SCH (21:26)
[2016-12-03] MEDS: MONTELUKAST 10 MG TAB PO SCH (21:26)
[2016-12-03] MEDS: THEOPHYLLINE (SR) 300 MG CAP PO SCH (21:26)
[2016-12-03] MEDS: INSULIN GLARGINE [LANtus] 3 ML PEN SC SCH (21:28)
[2016-12-04] MEDS: ACCU-CHEK XX SCH (02:00)
[2016-12-04] MEDS: ALBUTEROL/IPRATROPIUM (NEB) 3 ML AMP HHN SCH ×4 (02:00→20:00)
[2016-12-04 03:15] VITALS: BP 112/67; PULSE 74
[2016-12-04 07:28] VITALS: BP 117/57; RESP 18
[2016-12-04] MEDS: INSULIN ASPART [NOVOLOG] 3 ML PEN SC SCH ×7 (07:41→20:07)
[2016-12-04] MEDS: COLLAGENASE 30 GM TUBE TOP SCH ×2 (09:00→12:31)
[2016-12-04] MEDS: LISINOPRIL 5 MG TAB PO SCH (09:00)
[2016-12-04] MEDS: METOPROLOL (XL) 25 MG TAB PO SCH (09:00)
[2016-12-04] MEDS: SALMETEROL/FLUTICASONE 250/50 INHA INH SCH ×2 (09:01→20:05)
[2016-12-04] MEDS: ASPIRIN 81 MG TAB PO SCH (09:01)
[2016-12-04] MEDS: FAMOTIDINE 20 MG TAB PO SCH ×2 (09:01→20:05)
[2016-12-04] MEDS: BETHANECHOL 25 MG TAB PO SCH ×3 (09:01→20:05)
[2016-12-04] MEDS: APIXABAN 5 MG TABLET PO SCH ×2 (09:02→20:05)
[2016-12-04] MEDS: AMIODARONE 200 MG TAB PO SCH ×2 (09:02→20:06)
[2016-12-04] MEDS: MUPIROCIN 2% 22 GM OINT TOP SCH ×2 (09:03→20:13)
[2016-12-04 10:00] VITALS: BP 106/58; PULSE 60; RESP 16
[2016-12-04 11:04] LABS: POTASSIUM 4.6 mmol/L (3.5-5.1)
[2016-12-04 11:06] LABS: CREATININE 1.29 mg/dl (0.61-1.24)
[2016-12-04 11:07] LABS: CALCIUM 9.2 mg/dl (8.4-10.2)
--- NOTE | 2016-12-04 14:38 | PN ---
Date/Time of Note Date/Time of Note DATE: 12/04/16 TIME: 14:35 Assessment/Plan VTE Prophylaxis VTE Prophylaxis Intervention: other (eliquis) Lines/Catheters IV Catheter Type (from Nrs): Saline Lock Urinary Cath still in place: Yes Reason Cath still needed: urinary retention Assessment/Plan Assessment/Plan 1. Social disposition, awaiting for placement 2. 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 Simpson 3. COPD exacerbation, stable, neb, decrease steroid 4. facility acquired pneumonia, with ESBL E. Coli, and Lauren albicans, treated 5. 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 fulled treated. 6. Atrial fibrillation with RVR, sinus now, follow up with cardiology 7. Congestive heart failure, systolic, chronic, stable 8. Ischemic cardiomyopathy 9. CAD 10. s/p ICD, stable 11. Dyslipidemia. Continue statin. 12. Hx of Foot Fx- stable 13. DVT prophylaxis: eliquis 14. S/P IVC filter 15. Chronic anemia, one unit PRBC 11/19/2016 16. Essential hypertension, stable Subjective 24 Hr Interval Summary Free Text/Dictation no event Exam/Review of Systems Vital Signs Vitals Vital Signs Date Time Temp Pulse Resp B/P Pulse Ox O2 Delivery O2 Flow Rate FiO2 12/04/16 10:00 60 16 106/58 91 Nasal Cannula 3.0 12/04/16 07:28 98.0 Intake and Output 12/03/16 12/03/16 12/04/16 15:00 23:00 07:00 Intake Total 1440 ml 1000 ml Output Total 1900 ml 2800 ml Balance -460 ml -1800 ml Exam Constitutional: alert, oriented, well developed Psych: nl mood/affect, no complaints Head: atraumatic, normocephalic Eyes: EOMI, PERRL, nl conjunctiva, nl lids ENMT: nl external ears & nose, nl lips & teeth, nl nasal mucosa & septum Neck: non-tender, supple Respiratory: clear to auscultation, normal air movement, No congested cough, No crackles/rales, No diminished breath sounds, No intercostal retraction, No labored breathing, No other, No respirations, No tactile fremitus, No wheezing Cardiovascular: nl pulses, No S3, No S4, No bruits, No diastolic murmur, No edema, No gallop, No irregular rhythm, No jugular venous distention (JVD), No murmurs/extra sounds, No other, No rub, No systolic murmur Gastrointestinal: nl liver, spleen, non-tender, soft, No ascites, No bowel sounds, No distended, No firm, No hepatomegaly, No mass , No other, No rebound or guarding, No splenomegaly, No surgical scars, No tender Musculoskeletal: nl extremities to inspection Extremities: normal pulses, No calf tenderness, No clubbing, No cyanosis, No edema, No other, No palpable cord, No pitting pedal edema, No tenderness Neurological: BAND TIER II-XII intact, nl mental status, nl speech Skin: nl turgor Lymph: nl lymph nodes Results Result Diagram: 12/04/16 1010 Results 24 hrs Laboratory Tests Test 12/03/16 17:18 12/03/16 21:22 12/04/16 07:23 12/04/16 10:10 Bedside Glucose 109 180 110 Sodium Level 137 Potassium Level 4.6 Chloride Level 95 L Carbon Dioxide Level 35 H Anion Gap 12 Blood Urea Nitrogen 24 H Creatinine 1.29 H Glucose Level 130 Calcium Level 9.2 Test 12/04/16 11:33 Bedside Glucose 179 Medications Medications Current Medications IV Flush (NS 10 ml) 10 ml PRN PRN IV IV PROTOCOL Last administered on 09:49; Admin Dose 10 ML; Start 09/28/16 at 14:00 Ondansetron HCl (Zofran Inj) 4 mg Q6H PRN IV NAUSEA AND/OR VOMITING; Start at 15:00 Nitroglycerin (Nitroglycerin (Sl Tab) 0.4 Mg) 1 tab Q5M PRN SL CHEST PAIN; Start 09/28/16 at 15:00 Acetaminophen (Tylenol Liquid) 650 mg Q6H PRN PO PAIN LEVEL 1-3 OR FEVER Last administered on 11/13/16 05:59; Admin Dose 650 MG; Start 09/28/16 at 15:00 Acetaminophen (Tylenol Tab) 650 mg Q6H PRN PO PAIN LEVEL 1-3 OR FEVER Last administered on 11/24/16 20:31; Admin Dose 650 MG; Start 09/28/16 at 15:00 Morphine Sulfate (morphine) 2 mg Q4H PRN IV PAIN LEVEL 7-10 Last administered on 11/24/16 16:22; Admin Dose 2 MG; Start 09/28/16 at 15:00 Lorazepam (Ativan) 1 mg Q2H PRN IV ANXIETY Last administered on 11/30/16 09:49 ; Admin Dose 1 MG; Start 09/28/16 at 15:00 Docusate Sodium (Colace) 100 mg Q12H PRN PO CONSTIPATION Last administered on 08:14; Admin Dose 100 MG; Start 09/28/16 at 15:00 Famotidine (Pepcid) 20 mg Q12 PO Last administered on 12/04/16 09:01; Admin Dose 20 MG; Start 09/28/16 at 21:00 Aspirin (Aspirin) 81 mg DAILY PO Last administered on 12/04/16 09:01; Admin Dose 81 MG; Start 09/29/16 at 09:00 Atorvastatin Calcium (Lipitor) 10 mg QHS PO Last administered on 12/03/16 21: 26; Admin Dose 10 MG; Start 09/28/16 at 21:00 Tiotropium [place] (Spiriva) 1 inh DAILY INH ; Start 09/28/16 at 16:00; Status Future Hold Mupirocin (Bactroban) 1 applic BID TOP Last administered on 12/04/16 09:03; Admin Dose 1 APPLIC; Start 09/30/16 at 09:00 Diagnostic Test (Pha) (Accucheck) 1 ea 02 XX Last administered on 12/03/16 01: 57; Admin Dose 1 EA; Start 10/05/16 at 02:00 Miscellaneous Information 1 ea NOTE XX ; Start 10/04/16 at 09:00 Glucose (Glutose) 15 gm Q15M PRN PO DECREASED GLUCOSE; Start 10/04/16 at 09:00 Glucose (Glutose) 22.5 gm Q15M PRN PO DECREASED GLUCOSE; Start 10/04/16 at 09: 00 Dextrose (D50w Syringe) 25 ml Q15M PRN IV DECREASED GLUCOSE; Start 10/04/16 at 09:00 Dextrose (D50w Syringe) 50 ml Q15M PRN IV DECREASED GLUCOSE; Start 10/04/16 at 09:00 Glucagon (Glucagen) 1 mg Q15M PRN IM DECREASED GLUCOSE; Start 10/04/16 at 09:00 Glucose (Glutose) 15 gm Q15M PRN BUCCAL DECREASED GLUCOSE; Start 10/04/16 at 09 :00 Metoprolol Tartrate (Lopressor) 5 mg Q4 PRN IV HR>110 Hold SBP<100; Start 10/05 at 19:30 Montelukast Sodium (Singulair) 10 mg HS PO Last administered on 12/03/16 21:26 ; Admin Dose 10 MG; Start 10/10/16 at 21:00 Theophylline (Benji-24) 300 mg QHS PO Last administered on 12/03/16 21:26; Admin Dose 300 MG; Start 10/10/16 at 21:00 Apixaban (Eliquis) 5 mg BID PO Last administered on 12/04/16 09:02; Admin Dose 5 MG; Start 10/10/16 at 21:00 Digoxin (Digoxin) 0.125 mg DAILY@13 PO Last administered on 11/10/16 13:35; Admin Dose 0.125 MG; Start 10/12/16 at 13:00; Status Future Hold Furosemide (Lasix) 40 mg AM PO Last administered on 11/14/16 08:41; Admin Dose 40 MG; Start 10/25/16 at 09:00; Status Future Hold Amiodarone HCl (Cordarone) 200 mg BID PO Last administered on 12/04/16 09:02; Admin Dose 200 MG; Start 10/24/16 at 21:00 Salmeterol Xinafoate/ Fluticasone (Advair 250/50 Diskus) 1 inh BID INH Last administered on 12/04/16 09:01; Admin Dose 1 INH; Start 11/07/16 at 09:00 Insulin Glargine (Lantus) 14 unit HS SC Last administered on 12/03/16 21:28; Admin Dose 14 UNIT; Start 11/15/16 at 21:00 Metoprolol Succinate (Toprol Xl) 25 mg DAILY PO Last administered on 12/03/16 08:59; Admin Dose 25 MG; Start 11/17/16 at 09:00 Lisinopril (Zestril) 5 mg DAILY PO Last administered on 12/03/16 08:59; Admin Dose 5 MG; Start 11/19/16 at 09:00 Bethanechol Chloride (Urecholine) 25 mg TID PO Last administered on 12/04/16 12:59; Admin Dose 25 MG; Start 11/20/16 at 21:00 Collagenase (Santyl) 1 applic DAILY TOP Last administered on 12/03/16 09:06; Admin Dose 1 APPLIC; Start 11/26/16 at 09:00 FUNMI MEZA MD Dec 04, 2016 14:38
--- NOTE | 2016-12-04 16:59 | CONS ---
Date/Time of Note Date/Time of Note DATE: 12/04/16 TIME: 16:57 Assessment/Plan Assessment/Plan Chief Complaint/Hosp Course IMPRESSION: 1. Atrial fibrillation with rapid ventricular response.-improved HR and now back in SR by ecg most recntly 11/20 2. Congestive heart failure, systolic, acute on chronic. 3. History of cardiomyopathy with decreased left ventricular ejection fraction 20% to 25% per chart biopsy. 4. Shortness of breath. 5. Status post hypercapnic respiratory failure, status post extubation. 6. Chronic obstructive pulmonary disease. 7. Hypertension-well controlled 8. Dyslipidemia. 9. History of automatic implantable cardioverter-defibrillator with possible discharge.-s/p interrogation with ICD shock for uncontrolled rapid AF. 10. Pneumonia. 11.Positive troponin-minimal with no sig uptrend 12.UTI-Klebs 14.Bacteremia-Klebs/persistent-most recent Bld cx's negative 15.ARF-improved 16.Urinary retention-agustin in place Recc -Tele -Continue asa/Eliquis -ACEI/BB as tolerated at current doses -Continue to hold digoxin in setting of ARF and well controlled heart rates although digoxin level now down -Continue statin -Follow volume status and will spot dose lasix as necessary -Continue abx's and f/u cx data and -awaiting placement Problems: Consultation Date/Type/Reason Admit Date/Time Sep 28, 2016 at 14:41 Initial Consult Date 09/28/16 Type of Consultation: Cardiology Reason for Consultation AF Referring Provider: DEVON MUHAMMAD MD Exam/Review of Systems Vital Signs Vitals Vital Signs Date Time Temp Pulse Resp B/P Pulse Ox O2 Delivery O2 Flow Rate FiO2 12/04/16 10:00 60 16 106/58 91 Nasal Cannula 3.0 12/04/16 07:28 98.0 Intake and Output 12/03/16 12/03/16 12/04/16 15:00 23:00 07:00 Intake Total 1440 ml 1000 ml Output Total 1900 ml 2800 ml Balance -460 ml -1800 ml Exam Review of Systems: CONSTITUTIONAL: No fevers, chills. PULMONARY: No sob CARDIOVASCULAR: No chest pain/palpitations GASTROINTESTINAL: No nausea/vomiting. GENITOURINARY: No hematuria/dysuria. MUSCULOSKELETAL: No myagias/arthalgias. PSYCHIATRIC: The patient denies depression. NEUROLOGIC: No weakness Constitutional: alert, oriented Psych: no complaints Head: normocephalic ENMT: mucosa pink and moist Neck: jvd (9 cm water), supple Cardiovascular: regular rate and rhythm Gastrointestinal: non-tender, soft Musculoskeletal: muscle tone (normal) Extremities: edema (LLE edema>RLE) Neurological: other (No focal deficits) Results Result Diagram: 12/04/16 1010 Results 24 hrs Laboratory Tests Test 12/03/16 17:18 12/03/16 21:22 12/04/16 07:23 12/04/16 10:10 Bedside Glucose 109 180 110 Sodium Level 137 Potassium Level 4.6 Chloride Level 95 L Carbon Dioxide Level 35 H Anion Gap 12 Blood Urea Nitrogen 24 H Creatinine 1.29 H Glucose Level 130 Calcium Level 9.2 Test 12/04/16 11:33 12/04/16 16:53 Bedside Glucose 179 131 Medications Medications Current Medications IV Flush (NS 10 ml) 10 ml PRN PRN IV IV PROTOCOL Last administered on 09:49; Admin Dose 10 ML; Start 09/28/16 at 14:00 Ondansetron HCl (Zofran Inj) 4 mg Q6H PRN IV NAUSEA AND/OR VOMITING; Start at 15:00 Nitroglycerin (Nitroglycerin (Sl Tab) 0.4 Mg) 1 tab Q5M PRN SL CHEST PAIN; Start 09/28/16 at 15:00 Acetaminophen (Tylenol Liquid) 650 mg Q6H PRN PO PAIN LEVEL 1-3 OR FEVER Last administered on 11/13/16 05:59; Admin Dose 650 MG; Start 09/28/16 at 15:00 Acetaminophen (Tylenol Tab) 650 mg Q6H PRN PO PAIN LEVEL 1-3 OR FEVER Last administered on 11/24/16 20:31; Admin Dose 650 MG; Start 09/28/16 at 15:00 Morphine Sulfate (morphine) 2 mg Q4H PRN IV PAIN LEVEL 7-10 Last administered on 11/24/16 16:22; Admin Dose 2 MG; Start 09/28/16 at 15:00 Lorazepam (Ativan) 1 mg Q2H PRN IV ANXIETY Last administered on 11/30/16 09:49 ; Admin Dose 1 MG; Start 09/28/16 at 15:00 Docusate Sodium (Colace) 100 mg Q12H PRN PO CONSTIPATION Last administered on 08:14; Admin Dose 100 MG; Start 09/28/16 at 15:00 Famotidine (Pepcid) 20 mg Q12 PO Last administered on 12/04/16 09:01; Admin Dose 20 MG; Start 09/28/16 at 21:00 Aspirin (Aspirin) 81 mg DAILY PO Last administered on 12/04/16 09:01; Admin Dose 81 MG; Start 09/29/16 at 09:00 Atorvastatin Calcium (Lipitor) 10 mg QHS PO Last administered on 12/03/16 21: 26; Admin Dose 10 MG; Start 09/28/16 at 21:00 Tiotropium [place] (Spiriva) 1 inh DAILY INH ; Start 09/28/16 at 16:00; Status Future Hold Mupirocin (Bactroban) 1 applic BID TOP Last administered on 12/04/16 09:03; Admin Dose 1 APPLIC; Start 09/30/16 at 09:00 Diagnostic Test (Pha) (Accucheck) 1 ea 02 XX Last administered on 12/03/16 01: 57; Admin Dose 1 EA; Start 10/05/16 at 02:00 Miscellaneous Information 1 ea NOTE XX ; Start 10/04/16 at 09:00 Glucose (Glutose) 15 gm Q15M PRN PO DECREASED GLUCOSE; Start 10/04/16 at 09:00 Glucose (Glutose) 22.5 gm Q15M PRN PO DECREASED GLUCOSE; Start 10/04/16 at 09: 00 Dextrose (D50w Syringe) 25 ml Q15M PRN IV DECREASED GLUCOSE; Start 10/04/16 at 09:00 Dextrose (D50w Syringe) 50 ml Q15M PRN IV DECREASED GLUCOSE; Start 10/04/16 at 09:00 Glucagon (Glucagen) 1 mg Q15M PRN IM DECREASED GLUCOSE; Start 10/04/16 at 09:00 Glucose (Glutose) 15 gm Q15M PRN BUCCAL DECREASED GLUCOSE; Start 10/04/16 at 09 :00 Metoprolol Tartrate (Lopressor) 5 mg Q4 PRN IV HR>110 Hold SBP<100; Start 10/05 at 19:30 Montelukast Sodium (Singulair) 10 mg HS PO Last administered on 12/03/16 21:26 ; Admin Dose 10 MG; Start 10/10/16 at 21:00 Theophylline (Benji-24) 300 mg QHS PO Last administered on 12/03/16 21:26; Admin Dose 300 MG; Start 10/10/16 at 21:00 Apixaban (Eliquis) 5 mg BID PO Last administered on 12/04/16 09:02; Admin Dose 5 MG; Start 10/10/16 at 21:00 Digoxin (Digoxin) 0.125 mg DAILY@13 PO Last administered on 11/10/16 13:35; Admin Dose 0.125 MG; Start 10/12/16 at 13:00; Status Future Hold Furosemide (Lasix) 40 mg AM PO Last administered on 11/14/16 08:41; Admin Dose 40 MG; Start 10/25/16 at 09:00; Status Future Hold Amiodarone HCl (Cordarone) 200 mg BID PO Last administered on 12/04/16 09:02; Admin Dose 200 MG; Start 10/24/16 at 21:00 Salmeterol Xinafoate/ Fluticasone (Advair 250/50 Diskus) 1 inh BID INH Last administered on 12/04/16 09:01; Admin Dose 1 INH; Start 11/07/16 at 09:00 Insulin Glargine (Lantus) 14 unit HS SC Last administered on 12/03/16 21:28; Admin Dose 14 UNIT; Start 11/15/16 at 21:00 Metoprolol Succinate (Toprol Xl) 25 mg DAILY PO Last administered on 12/03/16 08:59; Admin Dose 25 MG; Start 11/17/16 at 09:00 Lisinopril (Zestril) 5 mg DAILY PO Last administered on 12/03/16 08:59; Admin Dose 5 MG; Start 11/19/16 at 09:00 Bethanechol Chloride (Urecholine) 25 mg TID PO Last administered on 12/04/16 12:59; Admin Dose 25 MG; Start 11/20/16 at 21:00 Collagenase (Santyl) 1 applic DAILY TOP Last administered on 12/03/16 09:06; Admin Dose 1 APPLIC; Start 11/26/16 at 09:00 СВЕТЛАНА PADRON 31, 2017 16:59
[2016-12-04] MEDS: predniSONE 1 MG TAB PO SCH (17:54)
[2016-12-04] MEDS: THEOPHYLLINE (SR) 300 MG CAP PO SCH (20:05)
[2016-12-04] MEDS: ATORVASTATIN 10 MG TAB PO SCH (20:05)
[2016-12-04] MEDS: MONTELUKAST 10 MG TAB PO SCH (20:05)
[2016-12-04] MEDS: INSULIN GLARGINE [LANtus] 3 ML PEN SC SCH (20:10)
[2016-12-04 21:13] VITALS: BP 115/66; RESP 20
--- NOTE | 2016-12-04 22:16 | RADRPT ---
PROCEDURE: Doppler US right lower extremity arteries. CLINICAL INDICATION: Right leg pain. Claudication that interferes significantly with the patient' s lifestyle. Right foot ulcer. TECHNIQUE: Multiple longitudinal and transverse images of the right lower extremity arteries were obtained with dunne scale, pulsed Doppler and color Doppler imaging. COMPARISON: No prior studies are available for comparison. FINDINGS: Location Right [id number] cm/sec PSFA67 cm/sec MSFA67 cm/sec DSFA66 cm/sec POP28 cm/sec PTA54 cm/sec DPA35 cm/sec There is normal triphasic flow throughout the femoral and popliteal systems. Biphasic flow is prese nt in the calf arteries. IMPRESSION: 1. Normal femoral and popliteal systems. 2. Abnormal biphasic flow in the calf arteries which may indicate significant stenosis. RPTAT: QQ .Demetrius Espinoza MD, MD Date Time Electronically viewed and signed by .Demetrius Espinoza MD, MD on 12/04/2016 22:16 .R/
[2016-12-05] MEDS: ACCU-CHEK XX SCH (02:00)
[2016-12-05] MEDS: ALBUTEROL/IPRATROPIUM (NEB) 3 ML AMP HHN SCH ×4 (02:00→19:38)
[2016-12-05 08:02] VITALS: BP 109/60; RESP 20
[2016-12-05] MEDS: COLLAGENASE 30 GM TUBE TOP SCH ×2 (09:00→09:32)
[2016-12-05] MEDS: METOPROLOL (XL) 25 MG TAB PO SCH (09:00)
[2016-12-05] MEDS: LISINOPRIL 5 MG TAB PO SCH (09:00)
[2016-12-05] MEDS: INSULIN ASPART [NOVOLOG] 3 ML PEN SC SCH ×7 (09:02→20:15)
[2016-12-05] MEDS: SALMETEROL/FLUTICASONE 250/50 INHA INH SCH ×2 (09:29→20:09)
[2016-12-05] MEDS: FAMOTIDINE 20 MG TAB PO SCH ×2 (09:30→20:11)
[2016-12-05] MEDS: APIXABAN 5 MG TABLET PO SCH ×2 (09:30→20:10)
[2016-12-05] MEDS: ASPIRIN 81 MG TAB PO SCH (09:30)
[2016-12-05] MEDS: AMIODARONE 200 MG TAB PO SCH ×2 (09:31→20:10)
[2016-12-05] MEDS: BETHANECHOL 25 MG TAB PO SCH ×3 (09:31→20:12)
[2016-12-05] MEDS: MUPIROCIN 2% 22 GM OINT TOP SCH ×2 (09:32→20:19)
--- NOTE | 2016-12-05 12:32 | PN ---
Date/Time of Note Date/Time of Note DATE: 12/05/16 TIME: 12:27 Assessment/Plan VTE Prophylaxis VTE Prophylaxis Intervention: LMWH Lines/Catheters IV C[facility]ter Type (from [email or web address] Saline Lock Urinary Cath still in place: Yes Reason Cath still needed: urinary retention Assessment/Plan Chief Complaint/Hosp Course Hospital day 68 Problems: (1) Unspecified open wound, right foot, sequela Status: Chronic Comment: The wound remains under the care of the wound care team. (2) COPD (chronic obstructive pulmonary disease) Status: Acute Comment: Well compensated and controlled at this point Qualifiers: COPD type: emphysema Emphysema type: panlobular Qualified Code: J43.1 - Panlobular emphysema (3) Peripheral vascular disease Comment: Noted and stable no change in medications or intervention indicated (4) Diabetes mellitus type 2 in nonobese Status: Chronic Comment: Well-controlled. (5) Hypertension Status: Chronic Comment: Controlled Qualifiers: Hypertension type: essential hypertension Qualified Code: I10 - Essential hypertension (6) Systolic CHF with reduced left ventricular function, NYHA class 3 Status: Chronic Comment: Compensated and managed with medications as per cardiology (7) Atrial fibrillation Status: Chronic Comment: Stable and controlled Qualifiers: Atrial fibrillation type: chronic Qualified Code: I48.2 - Chronic atrial fibrillation (8) Neurogenic bladder, flaccid Status: Acute Comment: As per urology long-term bladder drainage with agustin (9) Presence of IVC filter Status: Chronic Comment: Noted. Subjective 24 Hr Interval Summary Free Text/Dictation Patient is unchanged awake and alert sitting in bed. He is curious about the chronic tremor he has had in the wound on his right lateral foot Constitutional: no complaints (No fevers chills or sweats) Respiratory: no complaints (No shortness of breath) Cardiovascular: no complaints (No palpitations) Gastrointestinal: no complaints Exam/Review of Systems Vital Signs Vitals Vital Signs Date Time Temp Pulse Resp B/P Pulse Ox O2 Delivery O2 Flow Rate FiO2 12/05/16 12:10 80 20 94 Nasal Cannula 3.0 12/05/16 08:02 97.1 109/60 Intake and Output 12/04/16 12/04/16 12/05/16 15:00 23:00 07:00 Intake Total 2040 ml 660 ml Output Total 1400 ml 1500 ml Balance 640 ml -840 ml Exam Constitutional: alert, oriented Neck: non-tender, supple Respiratory: clear to auscultation, normal air movement Cardiovascular: irregular rhythm, nl pulses Extremities: other (Right lateral foot unstageable decubitus 4 x 5 [address] with dressing in place) Neurological: other (Bilateral fine tremor) Results Result Diagram: 12/04/16 1010 Results 24 hrs Laboratory Tests Test 12/04/16 16:53 12/04/16 20:03 12/05/16 08:55 Bedside Glucose 131 146 146 Medications Medications Current Medications IV Flush (NS 10 ml) 10 ml PRN PRN IV IV PROTOCOL Last administered on 09:49; Admin Dose 10 ML; Start 09/28/16 at 14:00 Ondansetron HCl (Zofran Inj) 4 mg Q6H PRN IV NAUSEA AND/OR VOMITING; Start at 15:00 Nitroglycerin (Nitroglycerin (Sl Tab) 0.4 Mg) 1 tab Q5M PRN SL CHEST PAIN; Start 09/28/16 at 15:00 Acetaminophen (Tylenol Liquid) 650 mg Q6H PRN PO PAIN LEVEL 1-3 OR FEVER Last administered on 11/13/16 05:59; Admin Dose 650 MG; Start 09/28/16 at 15:00 Acetaminophen (Tylenol Tab) 650 mg Q6H PRN PO PAIN LEVEL 1-3 OR FEVER Last administered on 11/24/16 20:31; Admin Dose 650 MG; Start 09/28/16 at 15:00 Morphine Sulfate (morphine) 2 mg Q4H PRN IV PAIN LEVEL 7-10 Last administered on 11/24/16 16:22; Admin Dose 2 MG; Start 09/28/16 at 15:00 Lorazepam (Ativan) 1 mg Q2H PRN IV ANXIETY Last administered on 11/30/16 09:49 ; Admin Dose 1 MG; Start 09/28/16 at 15:00 Docusate Sodium (Colace) 100 mg Q12H PRN PO CONSTIPATION Last administered on 08:14; Admin Dose 100 MG; Start 09/28/16 at 15:00 Famotidine (Pepcid) 20 mg Q12 PO Last administered on 12/05/16 09:30; Admin Dose 20 MG; Start 09/28/16 at 21:00 Aspirin (Aspirin) 81 mg DAILY PO Last administered on 12/05/16 09:30; Admin Dose 81 MG; Start 09/29/16 at 09:00 Atorvastatin Calcium (Lipitor) 10 mg QHS PO Last administered on 12/04/16 20: 05; Admin Dose 10 MG; Start 09/28/16 at 21:00 Tiotropium [place] (Spiriva) 1 inh DAILY INH ; Start 09/28/16 at 16:00; Status Future Hold Mupirocin (Bactroban) 1 applic BID TOP Last administered on 12/05/16 09:32; Admin Dose 1 APPLIC; Start 09/30/16 at 09:00 Diagnostic Test (Pha) (Accucheck) 1 ea 02 XX Last administered on 12/03/16 01: 57; Admin Dose 1 EA; Start 10/05/16 at 02:00 Miscellaneous Information 1 ea NOTE XX ; Start 10/04/16 at 09:00 Glucose (Glutose) 15 gm Q15M PRN PO DECREASED GLUCOSE; Start 10/04/16 at 09:00 Glucose (Glutose) 22.5 gm Q15M PRN PO DECREASED GLUCOSE; Start 10/04/16 at 09: 00 Dextrose (D50w Syringe) 25 ml Q15M PRN IV DECREASED GLUCOSE; Start 10/04/16 at 09:00 Dextrose (D50w Syringe) 50 ml Q15M PRN IV DECREASED GLUCOSE; Start 10/04/16 at 09:00 Glucagon (Glucagen) 1 mg Q15M PRN IM DECREASED GLUCOSE; Start 10/04/16 at 09:00 Glucose (Glutose) 15 gm Q15M PRN BUCCAL DECREASED GLUCOSE; Start 10/04/16 at 09 :00 Metoprolol Tartrate (Lopressor) 5 mg Q4 PRN IV HR>110 Hold SBP<100; Start 10/05 at 19:30 Montelukast Sodium (Singulair) 10 mg HS PO Last administered on 12/04/16 20:05 ; Admin Dose 10 MG; Start 10/10/16 at 21:00 Theophylline (Benji-24) 300 mg QHS PO Last administered on 12/04/16 20:05; Admin Dose 300 MG; Start 10/10/16 at 21:00 Apixaban (Eliquis) 5 mg BID PO Last administered on 12/05/16 09:30; Admin Dose 5 MG; Start 10/10/16 at 21:00 Digoxin (Digoxin) 0.125 mg DAILY@13 PO Last administered on 11/10/16 13:35; Admin Dose 0.125 MG; Start 10/12/16 at 13:00; Status Future Hold Furosemide (Lasix) 40 mg AM PO Last administered on 11/14/16 08:41; Admin Dose 40 MG; Start 10/25/16 at 09:00; Status Future Hold Amiodarone HCl (Cordarone) 200 mg BID PO Last administered on 12/05/16 09:31; Admin Dose 200 MG; Start 10/24/16 at 21:00 Salmeterol Xinafoate/ Fluticasone (Advair 250/50 Diskus) 1 inh BID INH Last administered on 12/05/16 09:29; Admin Dose 1 INH; Start 11/07/16 at 09:00 Insulin Glargine (Lantus) 14 unit HS SC Last administered on 12/04/16 20:10; Admin Dose 14 UNIT; Start 11/15/16 at 21:00 Metoprolol Succinate (Toprol Xl) 25 mg DAILY PO Last administered on 12/03/16 08:59; Admin Dose 25 MG; Start 11/17/16 at 09:00 Lisinopril (Zestril) 5 mg DAILY PO Last administered on 12/03/16 08:59; Admin Dose 5 MG; Start 11/19/16 at 09:00 Bethanechol Chloride (Urecholine) 25 mg TID PO Last administered on 12/05/16 09 :31; Admin Dose 25 MG; Start 11/20/16 at 21:00 Collagenase (Santyl) 1 applic DAILY TOP Last administered on 12/03/16 09:06; Admin Dose 1 APPLIC; Start 11/26/16 at 09:00 Collagenase (Santyl) 1 applic DAILY TOP Last administered on 12/05/16 09:32; Admin Dose 1 APPLIC; Start 12/05/16 at 09:00 DEVON MUHAMMAD MD Dec 05, 2016 12:32
--- NOTE | 2016-12-05 14:54 | CONS ---
Date/Time of Note Date/Time of Note DATE: 12/05/16 TIME: 14:48 Assessment/Plan Assessment/Plan Additional Assessment/Plan Chronic atrial fibrillation s/p IVC filter CHF systolic COPD Open wound right foot Peripheral vascular disease Diabetes mellitus Hypertension Neurogenic bladder, flaccid Hemodynamically stable A fib rate controlled Continue Metoprolol and Amiodarone Continue Eliquis Continue Benazepril Continue Insulin Continue Insulin Consultation Date/Type/Reason Admit Date/Time Sep 28, 2016 at 14:41 Constitutional: no complaints (No fevers chills or sweats) Respiratory: no complaints (No shortness of breath) Cardiovascular: no complaints (No palpitations) Gastrointestinal: no complaints Genitourinary: no complaints (Please note the patient states he is voiding fine however if you read the nursing notes he will have a different story) Musculoskeletal: no complaints (Foot is better) Psychological: no complaints Past Surgical History Past Surgical Hx: no surgical history Social History Smoking Status: Former smoker Exam/Review of Systems Vital Signs Vitals Vital Signs Date Time Temp Pulse Resp B/P Pulse Ox O2 Delivery O2 Flow Rate FiO2 12/05/16 12:10 80 20 94 Nasal Cannula 3.0 12/05/16 08:02 97.1 109/60 Intake and Output 12/04/16 12/04/16 12/05/16 15:00 23:00 07:00 Intake Total 2040 ml 660 ml Output Total 1400 ml 1500 ml Balance 640 ml -840 ml Exam Head: atraumatic, normocephalic Neck: non-tender, supple Respiratory: clear to auscultation Cardiovascular: irregular rhythm Gastrointestinal: nl liver, spleen, non-tender, soft Results Result Diagram: 12/04/16 1010 Results 24 hrs Laboratory Tests Test 12/04/16 16:53 12/04/16 20:03 12/05/16 08:55 12/05/16 12:29 Bedside Glucose 131 146 146 119 Medications Medications Current Medications IV Flush (NS 10 ml) 10 ml PRN PRN IV IV PROTOCOL Last administered on t 09:49; Admin Dose 10 ML; Start 09/28/16 at 14:00 Ondansetron HCl (Zofran Inj) 4 mg Q6H PRN IV NAUSEA AND/OR VOMITING; Start at 15:00 Nitroglycerin (Nitroglycerin (Sl Tab) 0.4 Mg) 1 tab Q5M PRN SL CHEST PAIN; Start 09/28/16 at 15:00 Acetaminophen (Tylenol Liquid) 650 mg Q6H PRN PO PAIN LEVEL 1-3 OR FEVER Last administered on 11/13/16 05:59; Admin Dose 650 MG; Start 09/28/16 at 15:00 Acetaminophen (Tylenol Tab) 650 mg Q6H PRN PO PAIN LEVEL 1-3 OR FEVER Last administered on 11/24/16 20:31; Admin Dose 650 MG; Start 09/28/16 at 15:00 Morphine Sulfate (morphine) 2 mg Q4H PRN IV PAIN LEVEL 7-10 Last administered on 11/24/16 16:22; Admin Dose 2 MG; Start 09/28/16 at 15:00 Lorazepam (Ativan) 1 mg Q2H PRN IV ANXIETY Last administered on 11/30/16 09:49 ; Admin Dose 1 MG; Start 09/28/16 at 15:00 Docusate Sodium (Colace) 100 mg Q12H PRN PO CONSTIPATION Last administered on 08:14; Admin Dose 100 MG; Start 09/28/16 at 15:00 Famotidine (Pepcid) 20 mg Q12 PO Last administered on 12/05/16 09:30; Admin Dose 20 MG; Start 09/28/16 at 21:00 Aspirin (Aspirin) 81 mg DAILY PO Last administered on 12/05/16 09:30; Admin Dose 81 MG; Start 09/29/16 at 09:00 Atorvastatin Calcium (Lipitor) 10 mg QHS PO Last administered on 12/04/16 20: 05; Admin Dose 10 MG; Start 09/28/16 at 21:00 Tiotropium [place] (Spiriva) 1 inh DAILY INH ; Start 09/28/16 at 16:00; Status Future Hold Mupirocin (Bactroban) 1 applic BID TOP Last administered on 12/05/16 09:32; Admin Dose 1 APPLIC; Start 09/30/16 at 09:00 Diagnostic Test (Pha) (Accucheck) 1 ea 02 XX Last administered on 12/03/16 01: 57; Admin Dose 1 EA; Start 10/05/16 at 02:00 Miscellaneous Information 1 ea NOTE XX ; Start 10/04/16 at 09:00 Glucose (Glutose) 15 gm Q15M PRN PO DECREASED GLUCOSE; Start 10/04/16 at 09:00 Glucose (Glutose) 22.5 gm Q15M PRN PO DECREASED GLUCOSE; Start 10/04/16 at 09: 00 Dextrose (D50w Syringe) 25 ml Q15M PRN IV DECREASED GLUCOSE; Start 10/04/16 at 09:00 Dextrose (D50w Syringe) 50 ml Q15M PRN IV DECREASED GLUCOSE; Start 10/04/16 at 09:00 Glucagon (Glucagen) 1 mg Q15M PRN IM DECREASED GLUCOSE; Start 10/04/16 at 09:00 Glucose (Glutose) 15 gm Q15M PRN BUCCAL DECREASED GLUCOSE; Start 10/04/16 at 09 :00 Metoprolol Tartrate (Lopressor) 5 mg Q4 PRN IV HR>110 Hold SBP<100; Start 10/05 at 19:30 Montelukast Sodium (Singulair) 10 mg HS PO Last administered on 12/04/16 20:05 ; Admin Dose 10 MG; Start 10/10/16 at 21:00 Theophylline (Benji-24) 300 mg QHS PO Last administered on 12/04/16 20:05; Admin Dose 300 MG; Start 10/10/16 at 21:00 Apixaban (Eliquis) 5 mg BID PO Last administered on 12/05/16 09:30; Admin Dose 5 MG; Start 10/10/16 at 21:00 Digoxin (Digoxin) 0.125 mg DAILY@13 PO Last administered on 11/10/16 13:35; Admin Dose 0.125 MG; Start 10/12/16 at 13:00; Status Future Hold Furosemide (Lasix) 40 mg AM PO Last administered on 11/14/16 08:41; Admin Dose 40 MG; Start 10/25/16 at 09:00; Status Future Hold Amiodarone HCl (Cordarone) 200 mg BID PO Last administered on 12/05/16 09:31; Admin Dose 200 MG; Start 10/24/16 at 21:00 Salmeterol Xinafoate/ Fluticasone (Advair 250/50 Diskus) 1 inh BID INH Last administered on 12/05/16 09:29; Admin Dose 1 INH; Start 11/07/16 at 09:00 Insulin Glargine (Lantus) 14 unit HS SC Last administered on 12/04/16 20:10; Admin Dose 14 UNIT; Start 11/15/16 at 21:00 Metoprolol Succinate (Toprol Xl) 25 mg DAILY PO Last administered on 12/03/16 08:59; Admin Dose 25 MG; Start 11/17/16 at 09:00 Lisinopril (Zestril) 5 mg DAILY PO Last administered on 12/03/16 08:59; Admin Dose 5 MG; Start 11/19/16 at 09:00 Bethanechol Chloride (Urecholine) 25 mg TID PO Last administered on 12/05/16 14 :36; Admin Dose 25 MG; Start 11/20/16 at 21:00 Collagenase (Santyl) 1 applic DAILY TOP Last administered on 12/03/16 09:06; Admin Dose 1 APPLIC; Start 11/26/16 at 09:00 Collagenase (Santyl) 1 applic DAILY TOP Last administered on 12/05/16 09:32; Admin Dose 1 APPLIC; Start 12/05/16 at 09:00 JUANJO GARNETT M.D. Dec 05, 2016 14:54
[2016-12-05] MEDS: predniSONE 1 MG TAB PO SCH (17:38)
[2016-12-05 20:06] VITALS: BP 126/66; RESP 20
[2016-12-05] MEDS: ATORVASTATIN 10 MG TAB PO SCH (20:11)
[2016-12-05] MEDS: THEOPHYLLINE (SR) 300 MG CAP PO SCH (20:11)
[2016-12-05] MEDS: MONTELUKAST 10 MG TAB PO SCH (20:11)
[2016-12-05] MEDS: INSULIN GLARGINE [LANtus] 3 ML PEN SC SCH (20:14)
[2016-12-06] MEDS: ALBUTEROL/IPRATROPIUM (NEB) 3 ML AMP HHN SCH ×4 (01:58→20:49)
[2016-12-06] MEDS: ACCU-CHEK XX SCH (02:41)
[2016-12-06] MEDS: INSULIN ASPART [NOVOLOG] 3 ML PEN SC SCH ×6 (08:00→20:12)
[2016-12-06] MEDS: MUPIROCIN 2% 22 GM OINT TOP SCH ×2 (09:00→21:15)
[2016-12-06] MEDS: COLLAGENASE 30 GM TUBE TOP SCH ×2 (09:00)
[2016-12-06] MEDS: SALMETEROL/FLUTICASONE 250/50 INHA INH SCH ×2 (09:17→21:10)
[2016-12-06] MEDS: APIXABAN 5 MG TABLET PO SCH ×2 (09:17→21:08)
[2016-12-06] MEDS: ASPIRIN 81 MG TAB PO SCH (09:17)
[2016-12-06] MEDS: LISINOPRIL 5 MG TAB PO SCH (09:17)
[2016-12-06] MEDS: AMIODARONE 200 MG TAB PO SCH ×2 (09:18→21:09)
[2016-12-06] MEDS: FAMOTIDINE 20 MG TAB PO SCH ×2 (09:18→21:08)
[2016-12-06] MEDS: METOPROLOL (XL) 25 MG TAB PO SCH ×2 (09:18→21:09)
[2016-12-06] MEDS: BETHANECHOL 25 MG TAB PO SCH ×3 (09:18→21:08)
--- NOTE | 2016-12-06 12:28 | PN ---
Date/Time of Note Date/Time of Note DATE: 12/06/16 TIME: 12:24 Assessment/Plan VTE Prophylaxis VTE Prophylaxis Intervention: heparin Lines/Catheters IV Catheter Type (from [facility]): Saline Lock Urinary Cath still in place: Yes Reason Cath still needed: urinary retention Assessment/Plan Chief Complaint/Hosp Course Hospital day 69 Problems: (1) Tremor of both hands Status: Chronic Comment: This is likely multifactorial including aging and some of the medicines he is on for his breathing. No change in therapeutic (2) COPD (chronic obstructive pulmonary disease) Status: Acute Comment: This is stable for some time in the hospital now. Continue his medication regimen which is operational and optimize Qualifiers: COPD type: emphysema Emphysema type: panlobular Qualified Code: J43.1 - Panlobular emphysema (3) Acute systolic congestive heart failure Status: Acute Comment: We have room to work here little bit of an increase his metoprolol to twice a day which also will help a little bit with his tremor (4) Right foot injury Status: Acute Comment: Noted he has wound there is wound care team is taking care of him Qualifiers: Encounter type: initial encounter Qualified Code: S99.921A - Right foot injury, initial encounter (5) Peripheral vascular disease Status: Chronic Comment: Noted and stable (6) Foot fracture, right Status: Chronic Comment: He is under therapeutics and doing well Qualifiers: Encounter type: initial encounter Fracture type: closed Qualified Code: S92.901A - Foot fracture, right, closed, initial encounter (7) Diabetes mellitus type 2 in nonobese Status: Chronic Comment: Good control (8) Hypertension Status: Chronic Comment: Good control Qualifiers: Hypertension type: essential hypertension Qualified Code: I10 - Essential hypertension (9) Hyperlipidemia associated with type 2 diabetes mellitus Status: Chronic Comment: On statin therapy (10) Systolic CHF with reduced left ventricular function, NYHA class 3 Status: Chronic Comment: Well compensated adjust upward on the beta-blockade (11) Atrial fibrillation Status: Chronic Comment: Controlled Qualifiers: Atrial fibrillation type: chronic Qualified Code: I48.2 - Chronic atrial fibrillation (12) Neurogenic bladder, flaccid Status: Acute Comment: Chronic catheter recheck culture (13) Presence of IVC filter Status: Chronic Comment: Noted Subjective 24 Hr Interval Summary Constitutional: no complaints Respiratory: no complaints Cardiovascular: no complaints Gastrointestinal: no complaints Neurologic: other (Tremor of both hands) Exam/Review of Systems Vital Signs Vitals Vital Signs Date Time Temp Pulse Resp B/P Pulse Ox O2 Delivery O2 Flow Rate FiO2 12/06/16 08:00 Nasal Cannula 3.0 12/05/16 20:06 98.7 76 20 126/66 94 Intake and Output 12/05/16 12/05/16 12/06/16 14:59 22:59 06:59 Intake Total 1900 ml 600 ml Output Total 1800 ml 1200 ml Balance 100 ml -600 ml Exam Constitutional: alert, oriented Respiratory: clear to auscultation, normal air movement Cardiovascular: nl pulses, regular rate and rhythm Gastrointestinal: nl liver, spleen, non-tender, soft Results Result Diagram: 12/04/16 1010 Results 24 hrs Laboratory Tests Test 12/05/16 12:29 12/05/16 17:24 12/05/16 20:07 12/06/16 02:16 Bedside Glucose 119 108 187 104 Test 12/06/16 09:13 12/06/16 11:57 Bedside Glucose 98 100 Medications Medications Current Medications IV Flush (NS 10 ml) 10 ml PRN PRN IV IV PROTOCOL Last administered on 09:49; Admin Dose 10 ML; Start 09/28/16 at 14:00 Ondansetron HCl (Zofran Inj) 4 mg Q6H PRN IV NAUSEA AND/OR VOMITING; Start at 15:00 Nitroglycerin (Nitroglycerin (Sl Tab) 0.4 Mg) 1 tab Q5M PRN SL CHEST PAIN; Start 09/28/16 at 15:00 Acetaminophen (Tylenol Liquid) 650 mg Q6H PRN PO PAIN LEVEL 1-3 OR FEVER Last administered on 11/13/16 05:59; Admin Dose 650 MG; Start 09/28/16 at 15:00 Acetaminophen (Tylenol Tab) 650 mg Q6H PRN PO PAIN LEVEL 1-3 OR FEVER Last administered on 11/24/16 20:31; Admin Dose 650 MG; Start 09/28/16 at 15:00 Morphine Sulfate (morphine) 2 mg Q4H PRN IV PAIN LEVEL 7-10 Last administered on 11/24/16 16:22; Admin Dose 2 MG; Start 09/28/16 at 15:00 Lorazepam (Ativan) 1 mg Q2H PRN IV ANXIETY Last administered on 11/30/16 09:49 ; Admin Dose 1 MG; Start 09/28/16 at 15:00 Docusate Sodium (Colace) 100 mg Q12H PRN PO CONSTIPATION Last administered on 08:14; Admin Dose 100 MG; Start 09/28/16 at 15:00 Famotidine (Pepcid) 20 mg Q12 PO Last administered on 12/06/16 09:18; Admin Dose 20 MG; Start 09/28/16 at 21:00 Aspirin (Aspirin) 81 mg DAILY PO Last administered on 12/06/16 09:17; Admin Dose 81 MG; Start 09/29/16 at 09:00 Atorvastatin Calcium (Lipitor) 10 mg QHS PO Last administered on 12/05/16 20:11 ; Admin Dose 10 MG; Start 09/28/16 at 21:00 Tiotropium [place] (Spiriva) 1 inh DAILY INH ; Start 09/28/16 at 16:00; Status Future Hold Mupirocin (Bactroban) 1 applic BID TOP Last administered on 12/06/16 09:00; Admin Dose 1 APPLIC; Start 09/30/16 at 09:00 Diagnostic Test (Pha) (Accucheck) 1 ea 02 XX Last administered on 12/06/16 02: 41; Admin Dose 1 EA; Start 10/05/16 at 02:00 Miscellaneous Information 1 ea NOTE XX ; Start 10/04/16 at 09:00 Glucose (Glutose) 15 gm Q15M PRN PO DECREASED GLUCOSE; Start 10/04/16 at 09:00 Glucose (Glutose) 22.5 gm Q15M PRN PO DECREASED GLUCOSE; Start 10/04/16 at 09: 00 Dextrose (D50w Syringe) 25 ml Q15M PRN IV DECREASED GLUCOSE; Start 10/04/16 at 09:00 Dextrose (D50w Syringe) 50 ml Q15M PRN IV DECREASED GLUCOSE; Start 10/04/16 at 09:00 Glucagon (Glucagen) 1 mg Q15M PRN IM DECREASED GLUCOSE; Start 10/04/16 at 09:00 Glucose (Glutose) 15 gm Q15M PRN BUCCAL DECREASED GLUCOSE; Start 10/04/16 at 09 :00 Metoprolol Tartrate (Lopressor) 5 mg Q4 PRN IV HR>110 Hold SBP<100; Start 10/05 at 19:30 Montelukast Sodium (Singulair) 10 mg HS PO Last administered on 12/05/16 20:11 ; Admin Dose 10 MG; Start 10/10/16 at 21:00 Theophylline (Benji-24) 300 mg QHS PO Last administered on 12/05/16 20:11; Admin Dose 300 MG; Start 10/10/16 at 21:00 Apixaban (Eliquis) 5 mg BID PO Last administered on 12/06/16 09:17; Admin Dose 5 MG; Start 10/10/16 at 21:00 Digoxin (Digoxin) 0.125 mg DAILY@13 PO Last administered on 11/10/16 13:35; Admin Dose 0.125 MG; Start 10/12/16 at 13:00; Status Future Hold Furosemide (Lasix) 40 mg AM PO Last administered on 11/14/16 08:41; Admin Dose 40 MG; Start 10/25/16 at 09:00; Status Future Hold Amiodarone HCl (Cordarone) 200 mg BID PO Last administered on 12/06/16 09:18; Admin Dose 200 MG; Start 10/24/16 at 21:00 Salmeterol Xinafoate/ Fluticasone (Advair 250/50 Diskus) 1 inh BID INH Last administered on 12/06/16 09:17; Admin Dose 1 INH; Start 11/07/16 at 09:00 Insulin Glargine (Lantus) 14 unit HS SC Last administered on 12/05/16 20:14; Admin Dose 14 UNIT; Start 11/15/16 at 21:00 Metoprolol Succinate (Toprol Xl) 25 mg DAILY PO Last administered on 12/06/16 09:18; Admin Dose 25 MG; Start 11/17/16 at 09:00 Lisinopril (Zestril) 5 mg DAILY PO Last administered on 12/06/16 09:17; Admin Dose 5 MG; Start 11/19/16 at 09:00 Bethanechol Chloride (Urecholine) 25 mg TID PO Last administered on 12/06/16 09 :18; Admin Dose 25 MG; Start 11/20/16 at 21:00 Collagenase (Santyl) 1 applic DAILY TOP Last administered on 12/03/16 09:06; Admin Dose 1 APPLIC; Start 11/26/16 at 09:00 Collagenase (Santyl) 1 applic DAILY TOP Last administered on 12/05/16 09:32; Admin Dose 1 APPLIC; Start 12/05/16 at 09:00 DEVON MUHAMMAD MD Dec 06, 2016 12:28
--- NOTE | 2016-12-06 14:59 | CONS ---
Date/Time of Note Date/Time of Note DATE: 12/06/16 TIME: 14:57 Assessment/Plan Assessment/Plan Additional Assessment/Plan Chronic atrial fibrillation S/p IVC filter CHF systolic COPD Open wound right foot Peripheral vascular disease Diabetes mellitus Hypertension Neurogenic bladder, flaccid Hemodynamically stable A fib rate controlled Continue Metoprolol and Amiodarone Continue Eliquis Continue Benazepril Continue Insulin Consultation Date/Type/Reason Admit Date/Time Sep 28, 2016 at 14:41 Initial Consult Date 09/28/16 Type of Consultation: Cardiology Referring Provider: DEVON MUHAMMAD MD Exam/Review of Systems Vital Signs Vitals Vital Signs Date Time Temp Pulse Resp B/P Pulse Ox O2 Delivery O2 Flow Rate FiO2 12/06/16 14:47 72 18 93 Nasal Cannula 3.0 12/05/16 20:06 98.7 126/66 Intake and Output 12/05/16 12/05/16 12/06/16 15:00 23:00 07:00 Intake Total 1900 ml 600 ml Output Total 1800 ml 1200 ml Balance 100 ml -600 ml Exam Head: atraumatic, normocephalic Neck: non-tender, supple Respiratory: clear to auscultation Cardiovascular: irregular rhythm Gastrointestinal: nl liver, spleen, non-tender, soft Results Result Diagram: 12/04/16 1010 Results 24 hrs Laboratory Tests Test 12/05/16 17:24 12/05/16 20:07 12/06/16 02:16 12/06/16 09:13 Bedside Glucose 108 187 104 98 Test 12/06/16 11:57 Bedside Glucose 100 Medications Medications Current Medications IV Flush (NS 10 ml) 10 ml PRN PRN IV IV PROTOCOL Last administered on 09:49; Admin Dose 10 ML; Start 09/28/16 at 14:00 Ondansetron HCl (Zofran Inj) 4 mg Q6H PRN IV NAUSEA AND/OR VOMITING; Start at 15:00 Nitroglycerin (Nitroglycerin (Sl Tab) 0.4 Mg) 1 tab Q5M PRN SL CHEST PAIN; Start 09/28/16 at 15:00 Acetaminophen (Tylenol Liquid) 650 mg Q6H PRN PO PAIN LEVEL 1-3 OR FEVER Last administered on 11/13/16 05:59; Admin Dose 650 MG; Start 09/28/16 at 15:00 Acetaminophen (Tylenol Tab) 650 mg Q6H PRN PO PAIN LEVEL 1-3 OR FEVER Last administered on 11/24/16 20:31; Admin Dose 650 MG; Start 09/28/16 at 15:00 Morphine Sulfate (morphine) 2 mg Q4H PRN IV PAIN LEVEL 7-10 Last administered on 11/24/16 16:22; Admin Dose 2 MG; Start 09/28/16 at 15:00 Lorazepam (Ativan) 1 mg Q2H PRN IV ANXIETY Last administered on 11/30/16 09:49 ; Admin Dose 1 MG; Start 09/28/16 at 15:00 Docusate Sodium (Colace) 100 mg Q12H PRN PO CONSTIPATION Last administered on 08:14; Admin Dose 100 MG; Start 09/28/16 at 15:00 Famotidine (Pepcid) 20 mg Q12 PO Last administered on 12/06/16 09:18; Admin Dose 20 MG; Start 09/28/16 at 21:00 Aspirin (Aspirin) 81 mg DAILY PO Last administered on 12/06/16 09:17; Admin Dose 81 MG; Start 09/29/16 at 09:00 Atorvastatin Calcium (Lipitor) 10 mg QHS PO Last administered on 12/05/16 20:11 ; Admin Dose 10 MG; Start 09/28/16 at 21:00 Tiotropium [place] (Spiriva) 1 inh DAILY INH ; Start 09/28/16 at 16:00; Status Future Hold Mupirocin (Bactroban) 1 applic BID TOP Last administered on 12/06/16 09:00; Admin Dose 1 APPLIC; Start 09/30/16 at 09:00 Diagnostic Test (Pha) (Accucheck) 1 ea 02 XX Last administered on 12/06/16 02: 41; Admin Dose 1 EA; Start 10/05/16 at 02:00 Miscellaneous Information 1 ea NOTE XX ; Start 10/04/16 at 09:00 Glucose (Glutose) 15 gm Q15M PRN PO DECREASED GLUCOSE; Start 10/04/16 at 09:00 Glucose (Glutose) 22.5 gm Q15M PRN PO DECREASED GLUCOSE; Start 10/04/16 at 09: 00 Dextrose (D50w Syringe) 25 ml Q15M PRN IV DECREASED GLUCOSE; Start 10/04/16 at 09:00 Dextrose (D50w Syringe) 50 ml Q15M PRN IV DECREASED GLUCOSE; Start 10/04/16 at 09:00 Glucagon (Glucagen) 1 mg Q15M PRN IM DECREASED GLUCOSE; Start 10/04/16 at 09:00 Glucose (Glutose) 15 gm Q15M PRN BUCCAL DECREASED GLUCOSE; Start 10/04/16 at 09 :00 Metoprolol Tartrate (Lopressor) 5 mg Q4 PRN IV HR>110 Hold SBP<100; Start 10/05 at 19:30 Montelukast Sodium (Singulair) 10 mg HS PO Last administered on 12/05/16 20:11 ; Admin Dose 10 MG; Start 10/10/16 at 21:00 Theophylline (Benji-24) 300 mg QHS PO Last administered on 12/05/16 20:11; Admin Dose 300 MG; Start 10/10/16 at 21:00 Apixaban (Eliquis) 5 mg BID PO Last administered on 12/06/16 09:17; Admin Dose 5 MG; Start 10/10/16 at 21:00 Digoxin (Digoxin) 0.125 mg DAILY@13 PO Last administered on 11/10/16 13:35; Admin Dose 0.125 MG; Start 10/12/16 at 13:00; Status Future Hold Furosemide (Lasix) 40 mg AM PO Last administered on 11/14/16 08:41; Admin Dose 40 MG; Start 10/25/16 at 09:00; Status Future Hold Amiodarone HCl (Cordarone) 200 mg BID PO Last administered on 12/06/16 09:18; Admin Dose 200 MG; Start 10/24/16 at 21:00 Salmeterol Xinafoate/ Fluticasone (Advair 250/50 Diskus) 1 inh BID INH Last administered on 12/06/16 09:17; Admin Dose 1 INH; Start 11/07/16 at 09:00 Insulin Glargine (Lantus) 14 unit HS SC Last administered on 12/05/16 20:14; Admin Dose 14 UNIT; Start 11/15/16 at 21:00 Lisinopril (Zestril) 5 mg DAILY PO Last administered on 12/06/16 09:17; Admin Dose 5 MG; Start 11/19/16 at 09:00 Bethanechol Chloride (Urecholine) 25 mg TID PO Last administered on 12/06/16 09 :18; Admin Dose 25 MG; Start 11/20/16 at 21:00 Collagenase (Santyl) 1 applic DAILY TOP Last administered on 12/03/16 09:06; Admin Dose 1 APPLIC; Start 11/26/16 at 09:00 Collagenase (Santyl) 1 applic DAILY TOP Last administered on 12/05/16 09:32; Admin Dose 1 APPLIC; Start 12/05/16 at 09:00 Metoprolol Succinate (Toprol Xl) 25 mg BID PO ; Start 12/06/16 at 21:00 JUANJO GARNETT M.D. Dec 06, 2016 14:58
[2016-12-06 15:35] LABS: ADD UMIC YES; URINE BILIRUBIN (Dip) NEGATIVE (NEGATIVE); URINE BLOOD (Dip) 2+ (NEGATIVE); URINE GLUCOSE (Dip) NEGATIVE (NEGATIVE); URINE KETONES (Dip) NEGATIVE (NEGATIVE); URINE LEUKOCYTE ESTERASE (Dip) 1+ (NEGATIVE); URINE NITRITE (Dip) NEGATIVE (NEGATIVE); URINE TOTAL PROTEIN (Dip) NEGATIVE (NEGATIVE); URINE UROBILINOGEN (Dip) 0.2 E.U./dL (0.1-1.0)
--- NOTE | 2016-12-06 15:43 | PN ---
DATE: 12/06/2016 SUBJECTIVE: Urinary retention. The patient has been unable to urinate and multiple attempts to rem ove the Pruett catheter were not successful. Therefore, the patient does have an indwelling Pruett ca theter connected to a regular drainage bag. We tried before to connect it to a leg bag, but he montse ot handle that to empty the bag and neither is he able to handle the emptying of the regular bag. Nate schulz is still in the hospital because of the placement issues. OBJECTIVE: VITAL SIGNS: Temperature is 98.7, pulse is 76, respirations 20, blood pressure 126/66. ABDOMEN: Soft. GENITOURINARY: The Pruett catheter is draining clear urine. PLAN: To keep the Pruett catheter in and await finding him a placement. Dictated By: JOSÉ PATTERSON MD BB/NTS Conf#: [id number] DID#: [id number] CC: GLENDY ESCOBAR MD;*EndCC*
[2016-12-06 15:45] LABS: URINE COLOR YELLOW (YELLOW)
[2016-12-06 15:46] LABS: BACTERIA,URINE MODERATE
[2016-12-06] MEDS: REPAGLINIDE 1 MG TAB PO SCH (17:34)
[2016-12-06] MEDS: predniSONE 1 MG TAB PO SCH (17:34)
[2016-12-06 20:55] VITALS: BP 130/59; RESP 20
[2016-12-06] MEDS: THEOPHYLLINE (SR) 300 MG CAP PO SCH (21:08)
[2016-12-06] MEDS: MONTELUKAST 10 MG TAB PO SCH (21:08)
[2016-12-06] MEDS: ATORVASTATIN 10 MG TAB PO SCH (21:08)
[2016-12-06] MEDS: INSULIN GLARGINE [LANtus] 3 ML PEN SC SCH (21:12)
[2016-12-07] MEDS: ACCU-CHEK XX SCH (02:00)
[2016-12-07] MEDS: ALBUTEROL/IPRATROPIUM (NEB) 3 ML AMP HHN SCH ×4 (02:00→20:32)
[2016-12-07] MEDS: INSULIN ASPART [NOVOLOG] 3 ML PEN SC SCH ×4 (08:00→21:00)
[2016-12-07 08:07] VITALS: BP 118/62; RESP 22
[2016-12-07] MEDS: SALMETEROL/FLUTICASONE 250/50 INHA INH SCH ×2 (08:56→21:01)
[2016-12-07] MEDS: COLLAGENASE 30 GM TUBE TOP SCH ×2 (08:56→09:07)
[2016-12-07] MEDS: ASPIRIN 81 MG TAB PO SCH (08:57)
[2016-12-07] MEDS: REPAGLINIDE 1 MG TAB PO SCH ×3 (08:57→17:00)
[2016-12-07] MEDS: FAMOTIDINE 20 MG TAB PO SCH ×2 (08:58→21:01)
[2016-12-07] MEDS: APIXABAN 5 MG TABLET PO SCH ×2 (08:58→21:00)
[2016-12-07] MEDS: AMIODARONE 200 MG TAB PO SCH ×2 (09:04→21:00)
[2016-12-07] MEDS: METOPROLOL (XL) 25 MG TAB PO SCH ×2 (09:05→21:00)
[2016-12-07] MEDS: LISINOPRIL 5 MG TAB PO SCH (09:05)
[2016-12-07] MEDS: MUPIROCIN 2% 22 GM OINT TOP SCH ×2 (09:06→21:00)
[2016-12-07] MEDS: BETHANECHOL 25 MG TAB PO SCH ×3 (09:10→21:00)
[2016-12-07 11:36] LABS: ADD SCAN DIFF NO
[2016-12-07 11:43] LABS: BASOPHIL # 0.1 10^3/ul (0.0-0.1); BASOPHILS % 0.8 % (0.0-2.0); EOSINOPHILS # 0.1 10^3/ul (0.0-0.5); EOSINOPHILS % 1.8 % (0.0-7.0); HEMATOCRIT 29.5 % (42.0-52.0); HEMOGLOBIN 9.4 g/dl (14.0-18.0); LYMPHOCYTES % 12.8 % (15.0-51.0); MEAN CORPUSCULAR HEMOGLOBIN 31.8 pg (29.0-33.0); MEAN CORPUSCULAR HGB CONC 31.9 g/dl (32.0-37.0); MEAN CORPUSCULAR VOLUME 99.7 fl (82.0-101.0); MEAN PLATELET VOLUME 8.7 fl (7.4-10.4); MONOCYTE # 1.3 10^3/ul (0.3-0.9); MONOCYTES % 16.2 % (0.0-11.0); NEUTROPHIL # 5.2 10^3/ul (1.6-7.5); NEUTROPHILS % 65.5 % (39.0-77.0); PLATELET COUNT 384 10^3/UL (140-415); RED BLOOD COUNT 2.96 10^6/ul (4.70-6.10); RED CELL DISTRIBUTION WIDTH 14.8 % (11.5-14.5)
[2016-12-07 11:49] LABS: ALBUMIN 3.7 g/dl (3.3-4.9); POTASSIUM 4.1 mmol/L (3.5-5.1)
[2016-12-07 11:51] LABS: CREATININE 1.28 mg/dl (0.61-1.24)
[2016-12-07 11:52] LABS: BILIRUBIN,INDIRECT 0.1 mg/dl (0-1.1); BILIRUBIN,TOTAL 0.1 mg/dl (0.2-1.3); CALCIUM 9.9 mg/dl (8.4-10.2); TOTAL PROTEIN 7.4 g/dl (6.1-8.1)
--- NOTE | 2016-12-07 13:37 | PN ---
Date/Time of Note Date/Time of Note DATE: 12/07/16 TIME: 13:35 Assessment/Plan VTE Prophylaxis VTE Prophylaxis Intervention: other Lines/Catheters IV Catheter Type (from Nrsg): Saline Lock Urinary Cath still in place: Yes Reason Cath still needed: urinary retention Assessment/Plan Assessment/Plan 1. Social disposition, awaiting for placement, talked with patient and family preservation caseworker 2. 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 Simpson 3. COPD exacerbation, stable, neb, decrease steroid 4. facility acquired pneumonia, with ESBL E. Coli, and Lauren albicans, treated 5. 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 fulled treated. 6. Atrial fibrillation with RVR, sinus now, follow up with cardiology 7. Congestive heart failure, systolic, chronic, stable 8. Ischemic cardiomyopathy 9. CAD 10. s/p ICD, stable 11. Dyslipidemia. Continue statin. 12. Hx of Foot Fx- stable 13. DVT prophylaxis: eliquis 14. S/P IVC filter 15. Chronic anemia, one unit PRBC 11/19/2016 16. Essential hypertension, stable Subjective 24 Hr Interval Summary Free Text/Dictation no complaint afebrile no chest pain or SOB Exam/Review of Systems Vital Signs Vitals Vital Signs Date Time Temp Pulse Resp B/P Pulse Ox O2 Delivery O2 Flow Rate FiO2 12/07/16 08:07 98.8 62 22 118/62 94 12/07/16 08:01 Nasal Cannula 3.0 Intake and Output 12/06/16 12/06/16 12/07/16 15:00 23:00 07:00 Intake Total 1300 ml 700 ml Output Total 1200 ml 2400 ml Balance 100 ml -1700 ml Exam Constitutional: alert, oriented, well developed Psych: no complaints Head: atraumatic, normocephalic Eyes: EOMI, nl conjunctiva, nl lids ENMT: nl external ears & nose, nl lips & teeth, nl nasal mucosa & septum Neck: non-tender, supple Respiratory: clear to auscultation, normal air movement, No congested cough, No crackles/rales, No diminished breath sounds, No intercostal retraction, No labored breathing, No other, No respirations, No tactile fremitus, No wheezing Cardiovascular: irregular rhythm, nl pulses, No S3, No S4, No bruits, No diastolic murmur, No edema, No gallop, No jugular venous distention (JVD), No murmurs/extra sounds, No other, No rub, No systolic murmur Gastrointestinal: nl liver, spleen, non-tender, soft, No ascites, No bowel sounds, No distended, No firm, No hepatomegaly, No mass , No other, No rebound or guarding, No splenomegaly, No surgical scars, No tender Musculoskeletal: nl extremities to inspection Extremities: cyanosis, normal pulses Neurological: MEDIA CENTER ASSISTANT II-XII intact, nl mental status, nl speech, nl strength Skin: nl turgor Lymph: nl lymph nodes Results Result Diagram: 12/07/16 1050 12/07/16 1050 Results 24 hrs Laboratory Tests Test 12/06/16 17:33 12/06/16 20:08 12/07/16 08:55 12/07/16 10:50 Bedside Glucose 117 99 108 White Blood Count 8.0 # Red Blood Count 2.96 L Hemoglobin 9.4 L Hematocrit 29.5 L Mean Corpuscular Volume 99.7 Mean Corpuscular Hemoglobin 31.8 Mean Corpuscular Hemoglobin Concent 31.9 L Red Cell Distribution Width 14.8 H Platelet Count 384 Mean Platelet Volume 8.7 Neutrophils % 65.5 Lymphocytes % 12.8 L Monocytes % 16.2 H Eosinophils % 1.8 Basophils % 0.8 Nucleated Red Blood Cells % 0.0 Neutrophils # 5.2 Lymphocytes # 1.0 Monocytes # 1.3 H Eosinophils # 0.1 Basophils # 0.1 Nucleated Red Blood Cells # 0.0 Sodium Level 138 Potassium Level 4.1 Chloride Level 93 L Carbon Dioxide Level 34 H Anion Gap 15 Blood Urea Nitrogen 19 Creatinine 1.28 H Glucose Level 58 L Calcium Level 9.9 Total Bilirubin 0.1 L Direct Bilirubin 0.00 Indirect Bilirubin 0.1 Aspartate Amino Transf (AST/SGOT) 18 Alanine Aminotransferase (ALT/SGPT) 18 Alkaline Phosphatase 64 Total Protein 7.4 Albumin 3.7 Globulin 3.70 H Albumin/Globulin Ratio 1.00 Test 12/07/16 11:55 Bedside Glucose 94 Medications Medications Current Medications IV Flush (NS 10 ml) 10 ml PRN PRN IV IV PROTOCOL Last administered on t 09:49; Admin Dose 10 ML; Start 09/28/16 at 14:00 Ondansetron HCl (Zofran Inj) 4 mg Q6H PRN IV NAUSEA AND/OR VOMITING; Start at 15:00 Nitroglycerin (Nitroglycerin (Sl Tab) 0.4 Mg) 1 tab Q5M PRN SL CHEST PAIN; Start 09/28/16 at 15:00 Acetaminophen (Tylenol Liquid) 650 mg Q6H PRN PO PAIN LEVEL 1-3 OR FEVER Last administered on 11/13/16 05:59; Admin Dose 650 MG; Start 09/28/16 at 15:00 Acetaminophen (Tylenol Tab) 650 mg Q6H PRN PO PAIN LEVEL 1-3 OR FEVER Last administered on 11/24/16 20:31; Admin Dose 650 MG; Start 09/28/16 at 15:00 Morphine Sulfate (morphine) 2 mg Q4H PRN IV PAIN LEVEL 7-10 Last administered on 11/24/16 16:22; Admin Dose 2 MG; Start 09/28/16 at 15:00 Lorazepam (Ativan) 1 mg Q2H PRN IV ANXIETY Last administered on 11/30/16 09:49 ; Admin Dose 1 MG; Start 09/28/16 at 15:00 Docusate Sodium (Colace) 100 mg Q12H PRN PO CONSTIPATION Last administered on 08:14; Admin Dose 100 MG; Start 09/28/16 at 15:00 Famotidine (Pepcid) 20 mg Q12 PO Last administered on 12/07/16 08:58; Admin Dose 20 MG; Start 09/28/16 at 21:00 Aspirin (Aspirin) 81 mg DAILY PO Last administered on 12/07/16 08:57; Admin Dose 81 MG; Start 09/29/16 at 09:00 Atorvastatin Calcium (Lipitor) 10 mg QHS PO Last administered on 12/06/16 21:08 ; Admin Dose 10 MG; Start 09/28/16 at 21:00 Tiotropium [place] (Spiriva) 1 inh DAILY INH ; Start 09/28/16 at 16:00; Status Future Hold Mupirocin (Bactroban) 1 applic BID TOP Last administered on 12/07/16 09:06; Admin Dose 1 APPLIC; Start 09/30/16 at 09:00 Diagnostic Test (Pha) (Accucheck) 1 ea 02 XX Last administered on 12/06/16 02: 41; Admin Dose 1 EA; Start 10/05/16 at 02:00 Miscellaneous Information 1 ea NOTE XX ; Start 10/04/16 at 09:00 Glucose (Glutose) 15 gm Q15M PRN PO DECREASED GLUCOSE; Start 10/04/16 at 09:00 Glucose (Glutose) 22.5 gm Q15M PRN PO DECREASED GLUCOSE; Start 10/04/16 at 09: 00 Dextrose (D50w Syringe) 25 ml Q15M PRN IV DECREASED GLUCOSE; Start 10/04/16 at 09:00 Dextrose (D50w Syringe) 50 ml Q15M PRN IV DECREASED GLUCOSE; Start 10/04/16 at 09:00 Glucagon (Glucagen) 1 mg Q15M PRN IM DECREASED GLUCOSE; Start 10/04/16 at 09:00 Glucose (Glutose) 15 gm Q15M PRN BUCCAL DECREASED GLUCOSE; Start 10/04/16 at 09 :00 Metoprolol Tartrate (Lopressor) 5 mg Q4 PRN IV HR>110 Hold SBP<100; Start 10/05 at 19:30 Montelukast Sodium (Singulair) 10 mg HS PO Last administered on 12/06/16 21:08 ; Admin Dose 10 MG; Start 10/10/16 at 21:00 Theophylline (Benji-24) 300 mg QHS PO Last administered on 12/06/16 21:08; Admin Dose 300 MG; Start 10/10/16 at 21:00 Apixaban (Eliquis) 5 mg BID PO Last administered on 12/07/16 08:58; Admin Dose 5 MG; Start 10/10/16 at 21:00 Digoxin (Digoxin) 0.125 mg DAILY@13 PO Last administered on 11/10/16 13:35; Admin Dose 0.125 MG; Start 10/12/16 at 13:00; Status Future Hold Furosemide (Lasix) 40 mg AM PO Last administered on 11/14/16 08:41; Admin Dose 40 MG; Start 10/25/16 at 09:00; Status Future Hold Amiodarone HCl (Cordarone) 200 mg BID PO Last administered on 12/07/16 09:04; Admin Dose 200 MG; Start 10/24/16 at 21:00 Salmeterol Xinafoate/ Fluticasone (Advair 250/50 Diskus) 1 inh BID INH Last administered on 12/07/16 08:56; Admin Dose 1 INH; Start 11/07/16 at 09:00 Insulin Glargine (Lantus) 14 unit HS SC Last administered on 12/06/16 21:12; Admin Dose 14 UNIT; Start 11/15/16 at 21:00 Lisinopril (Zestril) 5 mg DAILY PO Last administered on 12/07/16 09:05; Admin Dose 5 MG; Start 11/19/16 at 09:00 Bethanechol Chloride (Urecholine) 25 mg TID PO Last administered on 12/07/16 12 :01; Admin Dose 25 MG; Start 11/20/16 at 21:00 Collagenase (Santyl) 1 applic DAILY TOP Last administered on 12/07/16 08:56; Admin Dose 1 APPLIC; Start 11/26/16 at 09:00 Collagenase (Santyl) 1 applic DAILY TOP Last administered on 12/07/16 09:07; Admin Dose 1 APPLIC; Start 12/05/16 at 09:00 Metoprolol Succinate (Toprol Xl) 25 mg BID PO Last administered on 12/07/16 09: 05; Admin Dose 25 MG; Start 12/06/16 at 21:00 FUNMI MEZA MD Dec 07, 2016 13:37
--- NOTE | 2016-12-07 13:49 | CONS ---
Date/Time of Note Date/Time of Note DATE: 12/07/16 TIME: 13:47 Assessment/Plan Assessment/Plan Chief Complaint/Hosp Course IMPRESSION: 1. Atrial fibrillation with rapid ventricular response.-improved HR and now back in SR by ecg most recntly 11/20 2. Congestive heart failure, systolic, acute on chronic. 3. History of cardiomyopathy with decreased left ventricular ejection fraction 20% to 25% per chart biopsy. 4. Shortness of breath. 5. Status post hypercapnic respiratory failure, status post extubation. 6. Chronic obstructive pulmonary disease. 7. Hypertension-well controlled 8. Dyslipidemia. 9. History of automatic implantable cardioverter-defibrillator with possible discharge.-s/p interrogation with ICD shock for uncontrolled rapid AF. 10. Pneumonia. 11.Positive troponin-minimal with no sig uptrend 12.UTI-Klebs 14.Bacteremia-Klebs/persistent-most recent Bld cx's negative 15.ARF-improved 16.Urinary retention-agustin in place Recc -Tele -Continue asa/Eliquis -ACEI/BB as tolerated at current doses -Continue to hold digoxin in setting of ARF and well controlled heart rates although digoxin level now down -Continue statin -Follow volume status and will spot dose lasix as necessary -Continue abx's and f/u cx data and -awaiting placement Problems: Consultation Date/Type/Reason Admit Date/Time Sep 28, 2016 at 14:41 Initial Consult Date 09/28/16 Type of Consultation: Cardiology Reason for Consultation AICD discharge/CHF/AF Referring Provider: DEVON MUHAMMDA MD Exam/Review of Systems Vital Signs Vitals Vital Signs Date Time Temp Pulse Resp B/P Pulse Ox O2 Delivery O2 Flow Rate FiO2 12/07/16 08:07 98.8 62 22 118/62 94 12/07/16 08:01 Nasal Cannula 3.0 Intake and Output 12/06/16 12/06/16 12/07/16 15:00 23:00 07:00 Intake Total 1300 ml 700 ml Output Total 1200 ml 2400 ml Balance 100 ml -1700 ml Exam Review of Systems: CONSTITUTIONAL: No fevers, chills. PULMONARY: No sob CARDIOVASCULAR: No chest pain/palpitations GASTROINTESTINAL: No nausea/vomiting. GENITOURINARY: No hematuria/dysuria. MUSCULOSKELETAL: No myagias/arthalgias. PSYCHIATRIC: The patient denies depression. NEUROLOGIC: No weakness Constitutional: alert Psych: no complaints Head: normocephalic ENMT: mucosa pink and moist Neck: jvd, supple Respiratory: diminished breath sounds (at bases/B) Cardiovascular: regular rate and rhythm Gastrointestinal: non-tender, soft Musculoskeletal: muscle tone (normal) Extremities: other (No focal deficits) Neurological: other (No focal deficits) Results Result Diagram: 12/07/16 1050 12/07/16 1050 Results 24 hrs Laboratory Tests Test 12/06/16 17:33 12/06/16 20:08 12/07/16 08:55 12/07/16 10:50 Bedside Glucose 117 99 108 White Blood Count 8.0 # Red Blood Count 2.96 L Hemoglobin 9.4 L Hematocrit 29.5 L Mean Corpuscular Volume 99.7 Mean Corpuscular Hemoglobin 31.8 Mean Corpuscular Hemoglobin Concent 31.9 L Red Cell Distribution Width 14.8 H Platelet Count 384 Mean Platelet Volume 8.7 Neutrophils % 65.5 Lymphocytes % 12.8 L Monocytes % 16.2 H Eosinophils % 1.8 Basophils % 0.8 Nucleated Red Blood Cells % 0.0 Neutrophils # 5.2 Lymphocytes # 1.0 Monocytes # 1.3 H Eosinophils # 0.1 Basophils # 0.1 Nucleated Red Blood Cells # 0.0 Sodium Level 138 Potassium Level 4.1 Chloride Level 93 L Carbon Dioxide Level 34 H Anion Gap 15 Blood Urea Nitrogen 19 Creatinine 1.28 H Glucose Level 58 L Calcium Level 9.9 Total Bilirubin 0.1 L Direct Bilirubin 0.00 Indirect Bilirubin 0.1 Aspartate Amino Transf (AST/SGOT) 18 Alanine Aminotransferase (ALT/SGPT) 18 Alkaline Phosphatase 64 Total Protein 7.4 Albumin 3.7 Globulin 3.70 H Albumin/Globulin Ratio 1.00 Test 12/07/16 11:55 Bedside Glucose 94 Medications Medications Current Medications IV Flush (NS 10 ml) 10 ml PRN PRN IV IV PROTOCOL Last administered on t 09:49; Admin Dose 10 ML; Start 09/28/16 at 14:00 Ondansetron HCl (Zofran Inj) 4 mg Q6H PRN IV NAUSEA AND/OR VOMITING; Start at 15:00 Nitroglycerin (Nitroglycerin (Sl Tab) 0.4 Mg) 1 tab Q5M PRN SL CHEST PAIN; Start 09/28/16 at 15:00 Acetaminophen (Tylenol Liquid) 650 mg Q6H PRN PO PAIN LEVEL 1-3 OR FEVER Last administered on 11/13/16 05:59; Admin Dose 650 MG; Start 09/28/16 at 15:00 Acetaminophen (Tylenol Tab) 650 mg Q6H PRN PO PAIN LEVEL 1-3 OR FEVER Last administered on 11/24/16 20:31; Admin Dose 650 MG; Start 09/28/16 at 15:00 Morphine Sulfate (morphine) 2 mg Q4H PRN IV PAIN LEVEL 7-10 Last administered on 11/24/16 16:22; Admin Dose 2 MG; Start 09/28/16 at 15:00 Lorazepam (Ativan) 1 mg Q2H PRN IV ANXIETY Last administered on 11/30/16 09:49 ; Admin Dose 1 MG; Start 09/28/16 at 15:00 Docusate Sodium (Colace) 100 mg Q12H PRN PO CONSTIPATION Last administered on 08:14; Admin Dose 100 MG; Start 09/28/16 at 15:00 Famotidine (Pepcid) 20 mg Q12 PO Last administered on 12/07/16 08:58; Admin Dose 20 MG; Start 09/28/16 at 21:00 Aspirin (Aspirin) 81 mg DAILY PO Last administered on 12/07/16 08:57; Admin Dose 81 MG; Start 09/29/16 at 09:00 Atorvastatin Calcium (Lipitor) 10 mg QHS PO Last administered on 12/06/16 21:08 ; Admin Dose 10 MG; Start 09/28/16 at 21:00 Tiotropium [place] (Spiriva) 1 inh DAILY INH ; Start 09/28/16 at 16:00; Status Future Hold Mupirocin (Bactroban) 1 applic BID TOP Last administered on 12/07/16 09:06; Admin Dose 1 APPLIC; Start 09/30/16 at 09:00 Diagnostic Test (Pha) (Accucheck) 1 ea 02 XX Last administered on 12/06/16 02: 41; Admin Dose 1 EA; Start 10/05/16 at 02:00 Miscellaneous Information 1 ea NOTE XX ; Start 10/04/16 at 09:00 Glucose (Glutose) 15 gm Q15M PRN PO DECREASED GLUCOSE; Start 10/04/16 at 09:00 Glucose (Glutose) 22.5 gm Q15M PRN PO DECREASED GLUCOSE; Start 10/04/16 at 09: 00 Dextrose (D50w Syringe) 25 ml Q15M PRN IV DECREASED GLUCOSE; Start 10/04/16 at 09:00 Dextrose (D50w Syringe) 50 ml Q15M PRN IV DECREASED GLUCOSE; Start 10/04/16 at 09:00 Glucagon (Glucagen) 1 mg Q15M PRN IM DECREASED GLUCOSE; Start 10/04/16 at 09:00 Glucose (Glutose) 15 gm Q15M PRN BUCCAL DECREASED GLUCOSE; Start 10/04/16 at 09 :00 Metoprolol Tartrate (Lopressor) 5 mg Q4 PRN IV HR>110 Hold SBP<100; Start 10/05 at 19:30 Montelukast Sodium (Singulair) 10 mg HS PO Last administered on 12/06/16 21:08 ; Admin Dose 10 MG; Start 10/10/16 at 21:00 Theophylline (Benji-24) 300 mg QHS PO Last administered on 12/06/16 21:08; Admin Dose 300 MG; Start 10/10/16 at 21:00 Apixaban (Eliquis) 5 mg BID PO Last administered on 12/07/16 08:58; Admin Dose 5 MG; Start 10/10/16 at 21:00 Digoxin (Digoxin) 0.125 mg DAILY@13 PO Last administered on 11/10/16 13:35; Admin Dose 0.125 MG; Start 10/12/16 at 13:00; Status Future Hold Furosemide (Lasix) 40 mg AM PO Last administered on 11/14/16 08:41; Admin Dose 40 MG; Start 10/25/16 at 09:00; Status Future Hold Amiodarone HCl (Cordarone) 200 mg BID PO Last administered on 12/07/16 09:04; Admin Dose 200 MG; Start 10/24/16 at 21:00 Salmeterol Xinafoate/ Fluticasone (Advair 250/50 Diskus) 1 inh BID INH Last administered on 12/07/16 08:56; Admin Dose 1 INH; Start 11/07/16 at 09:00 Insulin Glargine (Lantus) 14 unit HS SC Last administered on 12/06/16 21:12; Admin Dose 14 UNIT; Start 11/15/16 at 21:00 Lisinopril (Zestril) 5 mg DAILY PO Last administered on 12/07/16 09:05; Admin Dose 5 MG; Start 11/19/16 at 09:00 Bethanechol Chloride (Urecholine) 25 mg TID PO Last administered on 12/07/16 12 :01; Admin Dose 25 MG; Start 11/20/16 at 21:00 Collagenase (Santyl) 1 applic DAILY TOP Last administered on 12/07/16 08:56; Admin Dose 1 APPLIC; Start 11/26/16 at 09:00 Collagenase (Santyl) 1 applic DAILY TOP Last administered on 12/07/16 09:07; Admin Dose 1 APPLIC; Start 12/05/16 at 09:00 Metoprolol Succinate (Toprol Xl) 25 mg BID PO Last administered on 12/07/16 09: 05; Admin Dose 25 MG; Start 12/06/16 at 21:00 СВЕТЛАНА PADRON Dec 07, 2016 13:49
[2016-12-07] MEDS: predniSONE 1 MG TAB PO SCH (16:59)
[2016-12-07] MEDS: ATORVASTATIN 10 MG TAB PO SCH (21:00)
[2016-12-07] MEDS: THEOPHYLLINE (SR) 300 MG CAP PO SCH (21:01)
[2016-12-07] MEDS: MONTELUKAST 10 MG TAB PO SCH (21:01)
[2016-12-07] MEDS: INSULIN GLARGINE [LANtus] 3 ML PEN SC SCH (21:02)
[2016-12-07 22:22] VITALS: BP 112/69; RESP 20
[2016-12-08] MEDS: ACCU-CHEK XX SCH (02:00)
[2016-12-08] MEDS: ALBUTEROL/IPRATROPIUM (NEB) 3 ML AMP HHN SCH ×4 (02:00→19:33)
[2016-12-08] MEDS: REPAGLINIDE 1 MG TAB PO SCH ×3 (07:30→17:35)
[2016-12-08] MEDS: INSULIN ASPART [NOVOLOG] 3 ML PEN SC SCH ×3 (08:00→18:05)
[2016-12-08] MEDS: morphine 2 MG INJ IV PRN ×3 (08:09→16:26)
[2016-12-08] MEDS: BETHANECHOL 25 MG TAB PO SCH ×2 (10:47→13:00)
[2016-12-08] MEDS: FAMOTIDINE 20 MG TAB PO SCH (10:47)
[2016-12-08] MEDS: SALMETEROL/FLUTICASONE 250/50 INHA INH SCH (10:47)
[2016-12-08] MEDS: COLLAGENASE 30 GM TUBE TOP SCH ×2 (10:48→16:25)
[2016-12-08] MEDS: MUPIROCIN 2% 22 GM OINT TOP SCH (10:48)
[2016-12-08] MEDS: LISINOPRIL 5 MG TAB PO SCH (10:49)
[2016-12-08] MEDS: METOPROLOL (XL) 25 MG TAB PO SCH (10:50)
[2016-12-08] MEDS: APIXABAN 5 MG TABLET PO SCH (10:56)
[2016-12-08] MEDS: AMIODARONE 200 MG TAB PO SCH (10:56)
[2016-12-08] MEDS: ASPIRIN 81 MG TAB PO SCH (10:56)
--- NOTE | 2016-12-08 14:24 | PN ---
Date/Time of Note Date/Time of Note DATE: 12/08/16 TIME: 14:21 Assessment/Plan VTE Prophylaxis VTE Prophylaxis Intervention: other Lines/Catheters IV Catheter Type (from Nrsg): Saline Lock Urinary Cath still in place: Yes Reason Cath still needed: urinary retention Assessment/Plan Assessment/Plan 1. Social disposition, awaiting for placement, talked with patient and case repairer 2. 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 Simpson 3. COPD exacerbation, stable, neb, decrease steroid 4. facility acquired pneumonia, with ESBL E. Coli, and Lauren albicans, treated 5. 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 fulled treated. 6. Atrial fibrillation with RVR, sinus now, follow up with cardiology 7. Congestive heart failure, systolic, chronic, stable 8. Ischemic cardiomyopathy 9. CAD 10. s/p ICD, stable 11. Dyslipidemia. Continue statin. 12. Hx of Foot Fx- stable 13. DVT prophylaxis: eliquis 14. S/P IVC filter 15. Chronic anemia, one unit PRBC 11/19/2016 16. Essential hypertension, stable Subjective 24 Hr Interval Summary Free Text/Dictation no event. talked with case repairer Exam/Review of Systems Vital Signs Vitals Vital Signs Date Time Temp Pulse Resp B/P Pulse Ox O2 Delivery O2 Flow Rate FiO2 12/08/16 01:40 3.0 12/07/16 22:22 98.7 67 20 112/69 90 12/07/16 21:00 Nasal Cannula Intake and Output 12/07/16 12/07/16 12/08/16 15:00 23:00 07:00 Intake Total 960 ml 450 ml Output Total 2000 ml 950 ml Balance -1040 ml -500 ml Exam Constitutional: alert, oriented, well developed Psych: nl mood/affect, no complaints Head: atraumatic, normocephalic Eyes: EOMI, PERRL, nl conjunctiva, nl lids ENMT: nl external ears & nose, nl lips & teeth, nl nasal mucosa & septum Neck: non-tender, supple Respiratory: clear to auscultation, normal air movement, No congested cough, No crackles/rales, No diminished breath sounds, No intercostal retraction, No labored breathing, No other, No respirations, No tactile fremitus, No wheezing Cardiovascular: nl pulses, regular rate and rhythm, No S3, No S4, No bruits, No diastolic murmur, No edema, No gallop, No irregular rhythm, No jugular venous distention (JVD), No murmurs/extra sounds, No other, No rub, No systolic murmur Gastrointestinal: nl liver, spleen, non-tender, soft, No ascites, No bowel sounds, No distended, No firm, No hepatomegaly, No mass , No other, No rebound or guarding, No splenomegaly, No surgical scars, No tender Musculoskeletal: nl extremities to inspection Neurological: VENDING MANAGER II-XII intact, nl mental status, nl speech, nl strength, No DTR's symmetric, No confused, No focal weakness, No lethargic, No numbness , No other, No reflexes, No unresponsive Skin: nl turgor Lymph: nl lymph nodes Results Result Diagram: 12/07/16 1050 12/07/16 1050 Results 24 hrs Laboratory Tests Test 12/07/16 17:01 12/07/16 20:58 12/08/16 08:11 12/08/16 12:28 Bedside Glucose 83 131 90 140 Medications Medications Current Medications IV Flush (NS 10 ml) 10 ml PRN PRN IV IV PROTOCOL Last administered on 09:49; Admin Dose 10 ML; Start 09/28/16 at 14:00 Ondansetron HCl (Zofran Inj) 4 mg Q6H PRN IV NAUSEA AND/OR VOMITING; Start at 15:00 Nitroglycerin (Nitroglycerin (Sl Tab) 0.4 Mg) 1 tab Q5M PRN SL CHEST PAIN; Start 09/28/16 at 15:00 Acetaminophen (Tylenol Liquid) 650 mg Q6H PRN PO PAIN LEVEL 1-3 OR FEVER Last administered on 11/13/16 05:59; Admin Dose 650 MG; Start 09/28/16 at 15:00 Acetaminophen (Tylenol Tab) 650 mg Q6H PRN PO PAIN LEVEL 1-3 OR FEVER Last administered on 11/24/16 20:31; Admin Dose 650 MG; Start 09/28/16 at 15:00 Morphine Sulfate (morphine) 2 mg Q4H PRN IV PAIN LEVEL 7-10 Last administered on 12/08/16 12:32; Admin Dose 2 MG; Start 09/28/16 at 15:00 Lorazepam (Ativan) 1 mg Q2H PRN IV ANXIETY Last administered on 11/30/16 09:49 ; Admin Dose 1 MG; Start 09/28/16 at 15:00 Docusate Sodium (Colace) 100 mg Q12H PRN PO CONSTIPATION Last administered on 08:14; Admin Dose 100 MG; Start 09/28/16 at 15:00 Famotidine (Pepcid) 20 mg Q12 PO Last administered on 12/08/16 10:47; Admin Dose 20 MG; Start 09/28/16 at 21:00 Aspirin (Aspirin) 81 mg DAILY PO Last administered on 12/08/16 10:56; Admin Dose 81 MG; Start 09/29/16 at 09:00 Atorvastatin Calcium (Lipitor) 10 mg QHS PO Last administered on 12/07/16 21:00 ; Admin Dose 10 MG; Start 09/28/16 at 21:00 Tiotropium [place] (Spiriva) 1 inh DAILY INH ; Start 09/28/16 at 16:00; Status Future Hold Mupirocin (Bactroban) 1 applic BID TOP Last administered on 12/08/16 10:48; Admin Dose 1 APPLIC; Start 09/30/16 at 09:00 Diagnostic Test (Pha) (Accucheck) 1 ea 02 XX Last administered on 12/06/16 02: 41; Admin Dose 1 EA; Start 10/05/16 at 02:00 Miscellaneous Information 1 ea NOTE XX ; Start 10/04/16 at 09:00 Glucose (Glutose) 15 gm Q15M PRN PO DECREASED GLUCOSE; Start 10/04/16 at 09:00 Glucose (Glutose) 22.5 gm Q15M PRN PO DECREASED GLUCOSE; Start 10/04/16 at 09: 00 Dextrose (D50w Syringe) 25 ml Q15M PRN IV DECREASED GLUCOSE; Start 10/04/16 at 09:00 Dextrose (D50w Syringe) 50 ml Q15M PRN IV DECREASED GLUCOSE; Start 10/04/16 at 09:00 Glucagon (Glucagen) 1 mg Q15M PRN IM DECREASED GLUCOSE; Start 10/04/16 at 09:00 Glucose (Glutose) 15 gm Q15M PRN BUCCAL DECREASED GLUCOSE; Start 10/04/16 at 09 :00 Metoprolol Tartrate (Lopressor) 5 mg Q4 PRN IV HR>110 Hold SBP<100; Start 10/05 at 19:30 Montelukast Sodium (Singulair) 10 mg HS PO Last administered on 12/07/16 21:01 ; Admin Dose 10 MG; Start 10/10/16 at 21:00 Theophylline (Benji-24) 300 mg QHS PO Last administered on 12/07/16 21:01; Admin Dose 300 MG; Start 10/10/16 at 21:00 Apixaban (Eliquis) 5 mg BID PO Last administered on 12/08/16 10:56; Admin Dose 5 MG; Start 10/10/16 at 21:00 Digoxin (Digoxin) 0.125 mg DAILY@13 PO Last administered on 11/10/16 13:35; Admin Dose 0.125 MG; Start 10/12/16 at 13:00; Status Future Hold Furosemide (Lasix) 40 mg AM PO Last administered on 11/14/16 08:41; Admin Dose 40 MG; Start 10/25/16 at 09:00; Status Future Hold Amiodarone HCl (Cordarone) 200 mg BID PO Last administered on 12/08/16 10:56; Admin Dose 200 MG; Start 10/24/16 at 21:00 Salmeterol Xinafoate/ Fluticasone (Advair 250/50 Diskus) 1 inh BID INH Last administered on 12/08/16 10:47; Admin Dose 1 INH; Start 11/07/16 at 09:00 Insulin Glargine (Lantus) 14 unit HS SC Last administered on 12/07/16 21:02; Admin Dose 14 UNIT; Start 11/15/16 at 21:00 Lisinopril (Zestril) 5 mg DAILY PO Last administered on 12/08/16 10:49; Admin Dose 5 MG; Start 11/19/16 at 09:00 Bethanechol Chloride (Urecholine) 25 mg TID PO Last administered on 12/08/16 10 :47; Admin Dose 25 MG; Start 11/20/16 at 21:00 Collagenase (Santyl) 1 applic DAILY TOP Last administered on 12/08/16 10:48; Admin Dose 1 APPLIC; Start 11/26/16 at 09:00 Collagenase (Santyl) 1 applic DAILY TOP Last administered on 12/07/16 09:07; Admin Dose 1 APPLIC; Start 12/05/16 at 09:00 Metoprolol Succinate (Toprol Xl) 25 mg BID PO Last administered on 12/08/16 10: 50; Admin Dose 25 MG; Start 12/06/16 at 21:00 FUNMI MEZA MD Dec 08, 2016 14:24
[2016-12-08] MEDS ORDERED: REPA1TAB14 PO (16:30)
[2016-12-08] MEDS ORDERED: URE25 PO (16:30)
[2016-12-08] MEDS ORDERED: LANT3I SC (16:30)
[2016-12-08] MEDS ORDERED: NOVO3I SC (16:30)
[2016-12-08] MEDS ORDERED: LISI-313 PO (16:30)
[2016-12-08] MEDS ORDERED: AMIO200T2 PO (16:30)
[2016-12-08] MEDS ORDERED: THP300CCR PO (16:30)
[2016-12-08] MEDS ORDERED: IPRA3AMP HHN (16:30)
[2016-12-08] MEDS ORDERED: PRED1TAB17 PO (16:30)
[2016-12-08] MEDS ORDERED: APIX5TAB PO (16:30)
[2016-12-08] MEDS ORDERED: DIGO125T PO (16:30)
[2016-12-08] MEDS ORDERED: MONT10TA24 PO (16:30)
[2016-12-08] MEDS ORDERED: FAMO20TA18 PO (16:30)
[2016-12-08] MEDS ORDERED: METO25TA7 PO (16:30)
--- NOTE | 2016-12-08 16:34 | DS ---
Date/Time of Note Date/Time of Note DATE: 12/08/16 TIME: 16:31 Discharge Summary Admission/Discharge Info Admit Date/Time Sep 28, 2016 at 14:41 Discharge Date/Time Final Diagnosis 1. 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 Simpson 2. COPD exacerbation, stable, neb, decrease steroid 3. facility acquired pneumonia, with ESBL E. Coli, and Lauren albicans, treated 4. 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 fulled treated. 5. Atrial fibrillation with RVR, sinus now, follow up with cardiology 6. Congestive heart failure, systolic, chronic, stable 7. Ischemic cardiomyopathy 8. CAD 9. s/p ICD, stable 10. Dyslipidemia. Continue statin. 11. Hx of Foot Fx- stable 12. DVT prophylaxis: eliquis 13. S/P IVC filter 14. Chronic anemia, one unit PRBC 11/19/2016 15. Essential hypertension, stable Patient Condition: Stable Hospital Course This is a 66-year-old gentleman who is known to our service from prior hospitalization with a past medical history of ischemic cardiomyopathy, ejection fraction 25%, coronary artery disease, hypertension, dyslipidemia, COPD , CHF who resides at nursing home [facility], sick sinus syndrome, status post pacemaker placement, ischemic cardiomyopathy, atrial fibrillation who was found to have increased shortness of breath at nursing home [facility] and was transferred to [facility] Emergency Room via EMS, where he was found to have oxygen saturation of 69% in room air. His ABG showed pH of 7.269, pCO2 94.4, pCO2 57.5, bicarbonate 42.3, oxygen saturation 85.1%. He was placed on BiPAP, which he was not able to tolerate and continued to become more hypoxic. Therefore, he was intubated in the course of the emergency room. Pulmonology was consulted. The patient was also treated with Solu-Medrol, cefepime, breathing treatment, and at this time he has been placed on propofol secondary to intubation. Patient was treated with antibiotics, nebulizer and steroid for pneumonia and COPD exacerbation, symptoms improved. He got extubated. Respiratory culture positive for ESBL E. Coli, and Lauren albicans, that he is on invanz and diflucan. Patient is clinically stable. He will be discharged to SNF for iv antibiotics and physical therapy. Patient had atrial fibrillation with RVR. Toprol XL was increased to 50 mg daily. He is with sinus rhythm now. He had CAD, troponin was slightly increased to 0.167. It is considered tachycardia related. He had ICD shock like feeling that resolved after ICD was adjusted. Home Meds Active Scripts Theophylline Anhydrous* (Benji-24*) 300 Mg Cap.sr.24h, 300 MG PO QHS for 30 Days Prov:FUNMI MEZA MD 12/08/16 Repaglinide* (Prandin*) 1 Mg Tablet, 0.5 MG PO AC MEALS for 30 Days, TAB Prov:FUNMI MEZA MD 12/08/16 Prednisone* (Prednisone*) 1 Mg Tab, 2 MG PO AC DINNER for 30 Days, TAB Prov:FUNMI MEZA MD 12/08/16 Insulin Aspart* (Novolog Insulin Pen*) 100 Unit/Ml Soln, 0 UNIT SC WITH MEALS BEDTIME for 30 Days Prov:FUNMI MEZA MD 12/08/16 Insulin Glargine* (Lantus*) 100 Unit/Ml Soln, 14 UNIT SC HS for 30 Days Prov:FUNMI MEZA MD 12/08/16 Famotidine* (Famotidine*) 20 Mg Tablet, 20 MG PO Q12 for 30 Days, TAB Prov:FUNMI MEZA MD 12/08/16 Montelukast Sodium* (Montelukast Sodium*) 10 Mg Tablet, 10 MG PO HS for 30 Days , TAB Prov:FUNMI MEZA MD 12/08/16 Digoxin* (Digitek*) 125 Mcg Tablet, 0.125 MG PO DAILY@13 for 30 Days, TAB Prov:FUNMI MEZA MD 12/08/16 Metoprolol Succinate* (Toprol XL*) 25 Mg Tab.sr.24h, 25 MG PO BID for 30 Days Prov:FUNMI MEZA MD 12/08/16 Lisinopril* (Lisinopril*) 5 Mg Tablet, 5 MG PO DAILY for 30 Days, TAB Prov:FUNMI MEZA MD 12/08/16 Amiodarone Hcl* (Amiodarone Hcl*) 200 Mg Tablet, 200 MG PO BID for 30 Days, TAB Prov:FUNMI MEZA MD 12/08/16 Apixaban* (Eliquis*) 5 Mg Tablet, 5 MG PO BID for 30 Days, TAB Prov:FUNMI MEZA MD 12/08/16 Ipratropium-Albuterol (Ipratropium-Albuterol) 0.5-3 Mg/3 Ml Ampul.neb, 3 ML HHN Q2H RESP THERAPY Y for SHORTNESS OF BREATH for 30 Days Prov:FUNMI MEZA MD 12/08/16 Bethanechol Chloride* (Urecholine*) 25 Mg Tab, 25 MG PO TID for 30 Days, TAB Prov:FUNMI MEZA MD 12/08/16 Ipratropium-Albuterol (Ipratropium-Albuterol) 0.5-3 Mg/3 Ml Ampul.neb, 3 ML HHN Q6H RESP THERAPY for 10 Days Prov:FUNMI MEZA MD 10/07/16 Reported Medications Tiotropium [place]* (Spiriva*) 18 Mcg Cap.w.dev, 1 CAP INHALATION DAILY, #30 CAP 09/28/16 Salmeterol Xinaf/Fluticasone* (Advair*) 250-50 Diskus Inhaler, 1 INH INHALATION BID, #1 INHALER 09/28/16 Lisinopril* (Lisinopril*) 5 Mg Tablet, 5 MG PO DAILY, #30 TAB 09/28/16 Furosemide* (Furosemide*) 40 Mg Tablet, 40 MG PO DAILY, TAB 09/28/16 Atorvastatin Calcium (Atorvastatin Calcium) 10 Mg Tablet, 10 MG PO QHS, #30 TAB 09/28/16 Aspirin* (Aspirin* Chew) 81 Mg Tab.chew, 81 MG PO DAILY, TAB.CHEW 09/28/16 Follow-up Plan PCP, cardiology and urology follow up in one week Pending Labs Laboratory Tests Test 12/07/16 17:01 12/07/16 20:58 12/08/16 08:11 12/08/16 12:28 Bedside Glucose 83mg/dL (70-220) 131mg/dL (70-220) 90mg/dL (70-220) 140mg/dL (70-220) FUNMI MEZA MD Dec 08, 2016 16:34
[2016-12-08] MEDS: predniSONE 1 MG TAB PO SCH (17:35)
--- NOTE | 2016-12-08 18:11 | CONS ---
Date/Time of Note Date/Time of Note DATE: 12/08/16 TIME: 18:10 Assessment/Plan Assessment/Plan Additional Assessment/Plan Additional Assessment/Plan 1. Atrial fibrillation with rapid ventricular response.-improved HR and now back in SR by ecg 11/20 - SINUS NOW by exam NO change. 2. Congestive heart failure, systolic, acute on chronic- better fluid staus 3. History of cardiomyopathy with decreased left ventricular ejection fraction 20% to 25% per chart biopsy- ICD in place. 4. Shortness of breath. 5. Status post hypercapnic respiratory failure, status post extubation- much better now 6. Chronic obstructive pulmonary disease. 7. Hypertension-borderline hotn today with anti-hypertensives held 8. Dyslipidemia. 9. History of automatic implantable cardioverter-defibrillator with possible discharge.-s/p interrogation with ICD shock for uncontrolled rapid AF. 10. Pneumonia- on anti-bx, con't med rx 11.Positive troponin-minimal with no sig uptrend 12.UTI-Klebs 14.Bacteremia-Klebs/persistent-most recent Bld cx's negative 15.ARF-slowly improving 16.Urinary retention-agustin in place Consultation Date/Type/Reason Admit Date/Time Sep 28, 2016 at 14:41 Initial Consult Date 09/28/16 Type of Consultation: Cardiology Referring Provider: DEVON MUHAMMAD MD 24 HR Interval Summary Free Text/Dictation NO acute change - better overall - dispo in place. ROS: No fever, no chills, no nausea, no vomiting, no diarrhea/constipation No recent weight changes No chest pain, no PND, no orthopnea No dizziness, blurred vision No thirst, no heat or cold intolerance Exam/Review of Systems Vital Signs Vitals Vital Signs Date Time Temp Pulse Resp B/P Pulse Ox O2 Delivery O2 Flow Rate FiO2 12/08/16 08:00 Nasal Cannula 3.0 12/07/16 22:22 98.7 67 20 112/69 90 Intake and Output 12/07/16 12/07/16 12/08/16 15:00 23:00 07:00 Intake Total 960 ml 450 ml Output Total 2000 ml 950 ml Balance -1040 ml -500 ml Exam General: WN/WD/NAD, AOx 2-3 HEENT: Unicetric/atraumatic/EOMI (follows commands) NECK: JVD elevated, no thyromegaly Lymph: no lymphadenopathy HEART: regular with no S3, II/ systolic murmur at apex LUNGS: Coarse sounds ABD: soft, NT, ND, +BS : Intact Neuro: non focal SKIN: chronic changes EXT: trace edema Results Result Diagram: 12/07/16 1050 12/07/16 1050 Results 24 hrs Laboratory Tests Test 12/07/16 20:58 12/08/16 08:11 12/08/16 12:28 12/08/16 17:17 Bedside Glucose 131 90 140 63 L Test 12/08/16 17:52 Bedside Glucose 114 Medications Medications Current Medications IV Flush (NS 10 ml) 10 ml PRN PRN IV IV PROTOCOL Last administered on 09:49; Admin Dose 10 ML; Start 09/28/16 at 14:00 Ondansetron HCl (Zofran Inj) 4 mg Q6H PRN IV NAUSEA AND/OR VOMITING; Start at 15:00 Nitroglycerin (Nitroglycerin (Sl Tab) 0.4 Mg) 1 tab Q5M PRN SL CHEST PAIN; Start 09/28/16 at 15:00 Acetaminophen (Tylenol Liquid) 650 mg Q6H PRN PO PAIN LEVEL 1-3 OR FEVER Last administered on 11/13/16 05:59; Admin Dose 650 MG; Start 09/28/16 at 15:00 Acetaminophen (Tylenol Tab) 650 mg Q6H PRN PO PAIN LEVEL 1-3 OR FEVER Last administered on 11/24/16 20:31; Admin Dose 650 MG; Start 09/28/16 at 15:00 Morphine Sulfate (morphine) 2 mg Q4H PRN IV PAIN LEVEL 7-10 Last administered on 12/08/16 16:26; Admin Dose 2 MG; Start 09/28/16 at 15:00 Lorazepam (Ativan) 1 mg Q2H PRN IV ANXIETY Last administered on 11/30/16 09:49 ; Admin Dose 1 MG; Start 09/28/16 at 15:00 Docusate Sodium (Colace) 100 mg Q12H PRN PO CONSTIPATION Last administered on 08:14; Admin Dose 100 MG; Start 09/28/16 at 15:00 Famotidine (Pepcid) 20 mg Q12 PO Last administered on 12/08/16 10:47; Admin Dose 20 MG; Start 09/28/16 at 21:00 Aspirin (Aspirin) 81 mg DAILY PO Last administered on 12/08/16 10:56; Admin Dose 81 MG; Start 09/29/16 at 09:00 Atorvastatin Calcium (Lipitor) 10 mg QHS PO Last administered on 12/07/16 21:00 ; Admin Dose 10 MG; Start 09/28/16 at 21:00 Tiotropium [place] (Spiriva) 1 inh DAILY INH ; Start 09/28/16 at 16:00; Status Future Hold Mupirocin (Bactroban) 1 applic BID TOP Last administered on 12/08/16 10:48; Admin Dose 1 APPLIC; Start 09/30/16 at 09:00 Diagnostic Test (Pha) (Accucheck) 1 ea 02 XX Last administered on 12/06/16 02: 41; Admin Dose 1 EA; Start 10/05/16 at 02:00 Miscellaneous Information 1 ea NOTE XX ; Start 10/04/16 at 09:00 Glucose (Glutose) 15 gm Q15M PRN PO DECREASED GLUCOSE; Start 10/04/16 at 09:00 Glucose (Glutose) 22.5 gm Q15M PRN PO DECREASED GLUCOSE; Start 10/04/16 at 09: 00 Dextrose (D50w Syringe) 25 ml Q15M PRN IV DECREASED GLUCOSE; Start 10/04/16 at 09:00 Dextrose (D50w Syringe) 50 ml Q15M PRN IV DECREASED GLUCOSE; Start 10/04/16 at 09:00 Glucagon (Glucagen) 1 mg Q15M PRN IM DECREASED GLUCOSE; Start 10/04/16 at 09:00 Glucose (Glutose) 15 gm Q15M PRN BUCCAL DECREASED GLUCOSE; Start 10/04/16 at 09 :00 Metoprolol Tartrate (Lopressor) 5 mg Q4 PRN IV HR>110 Hold SBP<100; Start 10/05 at 19:30 Montelukast Sodium (Singulair) 10 mg HS PO Last administered on 12/07/16 21:01 ; Admin Dose 10 MG; Start 10/10/16 at 21:00 Theophylline (Benji-24) 300 mg QHS PO Last administered on 12/07/16 21:01; Admin Dose 300 MG; Start 10/10/16 at 21:00 Apixaban (Eliquis) 5 mg BID PO Last administered on 12/08/16 10:56; Admin Dose 5 MG; Start 10/10/16 at 21:00 Digoxin (Digoxin) 0.125 mg DAILY@13 PO Last administered on 11/10/16 13:35; Admin Dose 0.125 MG; Start 10/12/16 at 13:00; Status Future Hold Furosemide (Lasix) 40 mg AM PO Last administered on 11/14/16 08:41; Admin Dose 40 MG; Start 10/25/16 at 09:00; Status Future Hold Amiodarone HCl (Cordarone) 200 mg BID PO Last administered on 12/08/16 10:56; Admin Dose 200 MG; Start 10/24/16 at 21:00 Salmeterol Xinafoate/ Fluticasone (Advair 250/50 Diskus) 1 inh BID INH Last administered on 12/08/16 10:47; Admin Dose 1 INH; Start 11/07/16 at 09:00 Insulin Glargine (Lantus) 14 unit HS SC Last administered on 12/07/16 21:02; Admin Dose 14 UNIT; Start 11/15/16 at 21:00 Lisinopril (Zestril) 5 mg DAILY PO Last administered on 12/08/16 10:49; Admin Dose 5 MG; Start 11/19/16 at 09:00 Bethanechol Chloride (Urecholine) 25 mg TID PO Last administered on 12/08/16 13 :00; Admin Dose 25 MG; Start 11/20/16 at 21:00 Collagenase (Santyl) 1 applic DAILY TOP Last administered on 12/08/16 10:48; Admin Dose 1 APPLIC; Start 11/26/16 at 09:00 Collagenase (Santyl) 1 applic DAILY TOP Last administered on 12/08/16 16:25; Admin Dose 1 APPLIC; Start 12/05/16 at 09:00 Metoprolol Succinate (Toprol Xl) 25 mg BID PO Last administered on 12/08/16 10: 50; Admin Dose 25 MG; Start 12/06/16 at 21:00 RAYSHAWN DUNN MD Dec 08, 2016 18:11
--- NOTE | 2016-12-08 18:43 | PN ---
Date/Time of Note Date/Time of Note DATE: 12/08/16 TIME: 18:42 Assessment/Plan Lines/Catheters IV Catheter Type (from Nrs): Saline Lock Pruett in Place (from Nrs): Yes Assessment/Plan Problems: (1) Nondisplaced fracture of fourth metatarsal bone, left foot, initial encounter for closed fracture Status: Acute (2) Diabetes mellitus type 2 in nonobese Status: Chronic (3) Peripheral vascular disease Status: Chronic Assessment/Plan follow up at [facility] in one week Exam/Review of Systems Vital Signs Vitals Vital Signs Date Time Temp Pulse Resp B/P Pulse Ox O2 Delivery O2 Flow Rate FiO2 12/08/16 08:00 Nasal Cannula 3.0 12/07/16 22:22 98.7 67 20 112/69 90 Intake and Output 12/07/16 12/07/16 12/08/16 15:00 23:00 07:00 Intake Total 960 ml 450 ml Output Total 2000 ml 950 ml Balance -1040 ml -500 ml Results Result Diagram: 12/07/16 1050 12/07/16 1050 JESUS OAKES DPM Dec 08, 2016 18:43
[2016-12-08 20:24] VITALS: BP 124/78; RESP 18
== END 2016-12-08 21:45 | DRG 207 ==
LOC: E/R 09:06 → ICU 14:41 → TEL 10-04 00:15 → PP2 10-12 21:04 → ICU 10-30 02:50 → MS4 10-30 14:00 → PP2 11-06 22:05
PROVIDERS: ADMIT Family Medicine; ATTEND Family Medicine
PROC: 0BH17EZ Insertion of Endotracheal Airway into Trachea, Via Natural or Artificial Opening (ICD-10-PCS; principal; 2016-09-28)
PROC: 5A1955Z Respiratory Ventilation, Greater than 96 Consecutive Hours (ICD-10-PCS; 2016-09-28)
PROC: 02HV33Z Insertion of Infusion Device into Superior Vena Cava, Percutaneous Approach (ICD-10-PCS; 2016-09-28)
PROC: 0T9B70Z Drainage of Bladder with Drainage Device, Via Natural or Artificial Opening (ICD-10-PCS; 2016-11-24)
DX: J96.21 Acute and chronic respiratory failure with hypoxia (principal); B37.1 Pulmonary candidiasis; I50.23 Acute on chronic systolic (congestive) heart failure; J15.5 Pneumonia due to Escherichia coli; E11.69 Type 2 diabetes mellitus with other specified complication; B37.0 Candidal stomatitis; R78.81 Bacteremia; I11.0 Hypertensive heart disease with heart failure; N30.00 Acute cystitis without hematuria; J44.0 Chronic obstructive pulmonary disease with (acute) lower respiratory infection; J44.1 Chronic obstructive pulmonary disease with (acute) exacerbation; N13.30 Unspecified hydronephrosis; B96.1 Klebsiella pneumoniae [K. pneumoniae] as the cause of diseases classified elsewhere; J96.22 Acute and chronic respiratory failure with hypercapnia; I48.2 Chronic atrial fibrillation; I25.5 Ischemic cardiomyopathy; E78.5 Hyperlipidemia, unspecified; I25.10 Atherosclerotic heart disease of native coronary artery without angina pectoris; Z99.81 Dependence on supplemental oxygen; Z87.891 Personal history of nicotine dependence; Z95.5 Presence of coronary angioplasty implant and graft; S92.901A Unspecified fracture of right foot, initial encounter for closed fracture; X58.XXXA Exposure to other specified factors, initial encounter; R33.9 Retention of urine, unspecified; E87.5 Hyperkalemia; N31.2 Flaccid neuropathic bladder, not elsewhere classified; D50.9 Iron deficiency anemia, unspecified; Y95 Nosocomial condition; R25.1 Tremor, unspecified; Z22.322 Carrier or suspected carrier of Methicillin resistant Staphylococcus aureus; Z95.810 Presence of automatic (implantable) cardiac defibrillator; Z16.24 Resistance to multiple antibiotics
CPT/HCPCS: 31500; 36415; 36430; 36569; 36600; 70450; 71010; 73630; 74176; 76775; 76856; 76937; 80048; 80053; 80061; 80069; 80076; 80162; 80198; 80202; 81001; 81003; 82550; 82553; 82565; 82803; 82962; 83036; 83540; 83605; 83735; 83880; 84100; 84443; 84484; 84520; 85025; 85610; 85651; 85730; 86592; 86803; 86850; 86900; 86901; 86920; 87040; 87070; 87081; 87086; 87340; 88104; 89220; 90686; 93005; 93306; 93926; 93971; 94002; 94003; 94640; 94644; 94660; 94664; 94760; 94770; 96374; 96375; 97110; 97116; 97163; 97530; J1940; A4310; C1769; C9113; J0330; J0360; J0456; J0692; J0696; J0743; J1335; J1650; J1815; J1956; J2060; J2185; J2270; J2543; J2916; J2920; J2930; J3370; J3475; J7040; J7050; J7512; P9016